=== PATIENT | female | born 1955 | race Caucasian/White ===

== ENCOUNTER → 2016-12-03 | Outpatient (CLI) | payer MEDICARE ==
[~2016-12-03] MED LIST: AMLO2.5T PO; AMLO5TAB2 PO; BUSP10TA95 PO; DOCU-143 PO; FLUT9.9S NS; GABA-488 PO; GING250C PO; INSU100I14 SQ; INSU100I23 SQ; INSU100I29 SQ; INSU100V SQ; INSU100V6 SQ; LEVO100T7 PO; LIRA0.6P3 SQ; LISI10TA2 PO; LORA10TA7 PO; LORA1TAB PO; MICO142C TP; MORP30CA16 PO; ONDA4TAB11 PO; OXYB15TA PO; OXYB5TAB9 PO; OXYC-465 PO; OXYC-471 PO; POLY119P5 PO; SERT50TA9 PO; SEVE800T7 PO; TAMS0.4C2 PO; TETR500C2 PO
--- OUTSIDE RECORDS SUMMARY | 2016-12-03 16:08 | XMS REPORT | Continuity of Care Document ---
Author Author [facility] Organization [facility] Address Unknown Phone Unavailable Care Team Providers Care Dedicated Regional Driver Name Role Phone PCP Unavailable Source Comments Some departments are not documenting in the electronic medical record. If you do not see the information that you expected, contact Release of Information in the Health Information Management department at [phone] for further assistance in locating additional records.[facility] Active Allergies and Adverse Reactions Not on File Current Medications Not on file Active Problems Not on file Social History Tobacco Use Types Packs/Day Years Used Date Never Assessed Plan of Care Date Type Specialty Providers Description 12/28/2016 Appointment Ophthalmology Rajni Howe MD [address] [place] [address] [phone] (Fax) Results from Last 3 Months Not on file
[2016-12-03 16:12] LABS: BILIRUBIN,URINE NEGATIVE (NEGATIVE); KETONES,URINE NEGATIVE (NEGATIVE); LEUKOCYTE ESTERASE ,URINE 3+ (NEGATIVE); NITRITE,URINE POSITIVE (NEGATIVE); PH,URINE 8 (5-9); PROTEIN,URINE 2+ (NEGATIVE); SQUAMOUS EPITHELIAL CELL,UR RARE /HPF; UROBILINOGEN,URINE NORMAL (NORMAL); WBC,URINE TNTC /HPF
== END ==
LOC: HH 16:06
PROVIDERS: ATTEND Internal Medicine
DX: N39.0 Urinary tract infection, site not specified (principal)
CPT/HCPCS: 81000; 87077; 87088; 87186

== ENCOUNTER → 2017-01-08 | Outpatient (CLI) | payer SELFPAY ==
[2017-01-08 15:29] LABS: BILIRUBIN,URINE NEGATIVE (NEGATIVE); KETONES,URINE NEGATIVE (NEGATIVE); LEUKOCYTE ESTERASE ,URINE 3+ (NEGATIVE); NITRITE,URINE POSITIVE (NEGATIVE); PH,URINE 7 (5-9); PROTEIN,URINE 3+ (NEGATIVE); UROBILINOGEN,URINE NORMAL (NORMAL)
[2017-01-08 15:37] LABS: WBC,URINE TNTC /HPF
== END ==
LOC: HH 15:24
PROVIDERS: ATTEND Internal Medicine
DX: N32.89 Other specified disorders of bladder (principal)
CPT/HCPCS: 81000; 87077; 87088; 87186

== ENCOUNTER → 2017-01-14 | Outpatient (CLI) | payer SELFPAY ==
[2017-01-14 15:52] LABS: BASOPHILS % (AUTO) 0 % (0-10); EOSINOPHILS # (AUTO) 0.2 10^3/uL (0.0-0.3); EOSINOPHILS % (AUTO) 4 % (0-10); LYMPHOCYTES # (AUTO) 0.7 X 10^3 (1.0-4.0); LYMPHOCYTES % (AUTO) 13 % (12-44); MEAN CORPUSCULAR HEMOGLOBIN 33 PG (25-34); MEAN CORPUSCULAR HGB CONC 30 G/DL (32-36); MEAN CORPUSCULAR VOLUME 108 FL (80-99); MEAN PLATELET VOLUME 10.7 FL (7.4-10.4); MONOCYTES # (AUTO) 0.4 X 10^3 (0.0-1.0); MONOCYTES % (AUTO) 7 % (0-12); NEUTROPHILS # (AUTO) 4.3 X 10^3 (1.8-7.8); NEUTROPHILS % (AUTO) 77 % (42-75); PLATELET COUNT 150 10^3/uL (130-400); RED BLOOD COUNT 3.81 10^6/uL (4.35-5.85); RED CELL DISTRIBUTION WIDTH 14.5 % (10.0-14.5); WHITE BLOOD COUNT 5.5 10^3/uL (4.3-11.0)
[2017-01-14 16:11] LABS: ALBUMIN 3.6 G/DL (3.2-4.5); BILIRUBIN,TOTAL 0.4 MG/DL (0.1-1.0); CALCIUM 8.7 MG/DL (8.5-10.1); CREATININE SERUM 1.74 MG/DL (0.60-1.30); POTASSIUM 4.7 MMOL/L (3.6-5.0); TOTAL PROTEIN 6.6 G/DL (6.4-8.2)
== END ==
LOC: HH 15:45
PROVIDERS: ATTEND Internal Medicine
DX: D64.9 Anemia, unspecified (principal); N39.0 Urinary tract infection, site not specified
CPT/HCPCS: 80053; 85025

== ENCOUNTER 2017-03-03 22:36 | Observation (INO) | payer MEDICARE, OTHER ==
[~2017-03-03] VITALS: Ht 172.7 cm; Wt 168.7 kg
[~2017-03-03 22:36] MED LIST changes: -LIRA0.6P3 SQ; -OXYB15TA PO
[2017-03-03] MEDS ORDERED: ANTACID SUSP 30 ML UDC (MYLANTA) PO ONE (22:45)
[2017-03-03] MEDS ORDERED: FAMOTIDINE 20MG/2ML IV (PEPCID) IVP ONE (22:45)
[2017-03-03] MEDS ORDERED: LIDOCAINE 2% VISCOUS 15 ML UDC PO ONE (22:45)
[2017-03-03 22:51] LABS: BASOPHILS % (AUTO) 0 % (0-10); EOSINOPHILS # (AUTO) 0.3 10^3/uL (0.0-0.3); EOSINOPHILS % (AUTO) 3 % (0-10); LYMPHOCYTES % (AUTO) 10 % (12-44); MEAN CORPUSCULAR HEMOGLOBIN 32 PG (25-34); MEAN CORPUSCULAR HGB CONC 31 G/DL (32-36); MEAN CORPUSCULAR VOLUME 104 FL (80-99); MEAN PLATELET VOLUME 10.9 FL (7.4-10.4); MONOCYTES # (AUTO) 0.5 X 10^3 (0.0-1.0); MONOCYTES % (AUTO) 6 % (0-12); NEUTROPHILS # (AUTO) 7.9 X 10^3 (1.8-7.8); NEUTROPHILS % (AUTO) 82 % (42-75); PLATELET COUNT 183 10^3/uL (130-400); RED BLOOD COUNT 4.14 10^6/uL (4.35-5.85); RED CELL DISTRIBUTION WIDTH 14.2 % (10.0-14.5); WHITE BLOOD COUNT 9.7 10^3/uL (4.3-11.0)
[2017-03-03 22:59] LABS: PROTHROMBIN TIME PATIENT 12.9 SEC (12.2-14.7)
[2017-03-03 23:08] LABS: BILIRUBIN,URINE NEGATIVE (NEGATIVE); KETONES,URINE NEGATIVE (NEGATIVE); LEUKOCYTE ESTERASE ,URINE 3+ (NEGATIVE); NITRITE,URINE POSITIVE (NEGATIVE); PH,URINE 8 (5-9); PROTEIN,URINE 3+ (NEGATIVE); UROBILINOGEN,URINE NORMAL (NORMAL)
[2017-03-03 23:09] LABS: ALANINE AMINOTRANSFERASE 12 U/L (0-55); ALBUMIN 3.7 G/DL (3.2-4.5); ANION GAP 13 MMOL/L (5-14); ASPARTATE AMINO TRANSFERASE 10 U/L (5-34); BILIRUBIN,TOTAL 0.4 MG/DL (0.1-1.0); BLOOD UREA NITROGEN 29 MG/DL (7-18); BUN/CREATININE RATIO 16; CALCIUM 9.5 MG/DL (8.5-10.1); CARBON DIOXIDE 29 MMOL/L (21-32); CHLORIDE 102 MMOL/L (98-107); CREATININE SERUM 1.77 MG/DL (0.60-1.30); GFR ESTIMATED 29; GLUCOSE 250 MG/DL (70-105); MAGNESIUM 2.2 MG/DL (1.8-2.4); POTASSIUM 4.8 MMOL/L (3.6-5.0); SODIUM 144 MMOL/L (135-145); TOTAL PROTEIN 7.1 G/DL (6.4-8.2)
[2017-03-03 23:16] LABS: MYOGLOBIN SERUM 63.4 NG/ML (10.0-92.0)
[2017-03-03 23:28] LABS: TRIPLE PHOSPHATE CRYSTAL,UR LARGE /LPF
[2017-03-03] MEDS ORDERED: RX-NITROGLYCERIN 0.4 MG TAB BTL 25'S SL ONE (23:45)
[2017-03-03] MEDS ORDERED: cefTRIAXone INJECTION 1,000 MG in NS (IVPB) 50 ML IV ONE (23:45)
[2017-03-04] VITALS (20 sets, daily range): BP systolic 107–150; BP diastolic 68–96
[2017-03-04] MEDS ORDERED: NITROGLYCERIN 2% OINT 1 GM UNIT DOSE PACKET TOP ONE
[2017-03-04] MEDS ORDERED: APIXABAN 5 MG (ELIQUIS) TABLET PO ONE (00:15)
[2017-03-04 00:17] LABS: THYROID STIMULATING HORMONE 1.81 UIU/ML (0.35-4.94)
--- NOTE | 2017-03-04 00:19 | ED Chest Pain ---
General Chief Complaint: Chest Pain Stated Complaint: CP Nursing Triage Note: PT REPORTS CHEST PAIN BEGINNING AT APPROX 2130. MIDDLE CHEST HEAVINESS ET " GOLF BALL" FEELING IN THROAT. CARDONA IN PLACE, CONCERNED ABOUT INCREASED SEDIMENT. PT POINTS TO UPPER ABD WHEN DESCRIBING PAIN. HX OF HIATAL ET ABD HERNIA. Nursing Sepsis Screen: No Definite Risk Source: patient, old records Exam Limitations: no limitations History of Present Illness Time seen by provider: 22:36 Initial Comments Jeniffer presents to the emergency room via EMS with pain across the lower chest/ upper abdomen. She describes it as a heaviness rated as 9 out of 10. She was notably hypertensive. EMS administered aspirin and nitroglycerin. Chest heaviness did not improve much. Patient has a history of cardiac disease with CHF and history of myocardial infarction. 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 She reports having a sensation of lump in the throat and having large belching. She feels bloated. She is bedbound and has an indwelling Cardona catheter with much sediment in her urine. She is morbidly obese reporting that she weighs 367 pounds. She reports her chronic baseline pain as 5/10. Aicha Lyles is her primary care provider. Allergies and Home Medications Allergies Coded Allergies: Sulfa (Sulfonamide Antibiotics) (Verified Allergy, Unknown, 05/24/16) divalproex sodium (Verified Allergy, Unknown, 05/24/16) tetracycline (Unverified Adverse Reaction, Unknown, 03/03/17) Home Medications Amlodipine Besylate 5 Mg Tablet, 2.5 MG PO DAILY, (Reported) TAKES 1/2 OF A (5 MG) TABLET Buspirone HCl 10 Mg Tablet, 10 MG PO BID, (Reported) Docusate Sodium 100 Mg Capsule, 100 MG PO DAILY, (Reported) Fluticasone Propionate 9.9 Ml [place].susp, 2 SPRAY NS BID, (Reported) Gabapentin 300 Mg Capsule, 300 MG PO Q8H, (Reported) Evelyn Root 250 Mg Capsule, 250 MG PO Q12H PRN for STOMACH UPSET, (Reported) Insulin Aspart 300 Units/3 Ml Solution, SQ SLIDING/SCALE, (Reported) 150-200 GIVE 2 UNITS 201-300 GIVE 3 UNITS CALL PHYSICIAN ABOVE 301 Insulin Detemir 100 Unit/1 Ml Insuln.pen, 10 UNIT SQ HS, (Reported) Levothyroxine Sodium 100 Mcg Tablet, 100 MCG PO DAILY, (Reported) Lisinopril 10 Mg Tablet, 10 MG PO DAILY, (Reported) Loratadine 10 Mg Tablet, 10 MG PO DAILY, (Reported) Lorazepam 1 Mg Tablet, 1 MG PO Q8H PRN for ANXIETY, (Reported) Miconazole Nitrate 142 Gm Cream..g., TP TID PRN for RASH, (Reported) Ondansetron 4 Mg Tab.rapdis, 4 MG PO Q4H PRN for NAUSEA/VOMITING, (Reported) Oxybutynin Chloride 5 Mg Tablet, 5 MG PO HS, (Reported) Oxycodone HCl/Acetaminophen 1 Each Tablet, 1 TAB PO Q8H PRN for PAIN, (Reported) Polyethylene Glycol 3350 119 Gm Powder, 17 GM PO DAILY, (Reported) Sertraline HCl 50 Mg Tablet, 50 MG PO DAILY, (Reported) Sevelamer Carbonate 800 Mg Tablet, 800 MG PO Q8H, (Reported) Tamsulosin HCl 0.4 Mg Cap.er.24h, 0.4 MG PO DAILY, (Reported) Review of Systems Constitutional: no symptoms reported EENTM: No Symptoms Reported Respiratory: No Symptoms Reported Gastrointestinal: See HPI Genitourinary: No Symptoms Reported Musculoskeletal: no symptoms reported Skin: no symptoms reported Psychiatric/Neurological: No Symptoms Reported Endocrine: No Symptoms Reported Past [id number] Hx Patient Social History Alcohol Use: Rarely Uses Recreational Drug Use: No Smoking Status: Former Smoker Recent Foreign Travel: No Contact w/Someone Who Travel: No Recent Infectious Disease Expo: No Recent Hopitalizations: No Immunizations Up To Date Tetanus Booster (TDap): More than 5yrs PED Vaccines UTD: No Date of Pneumonia Vaccine: Dec 06, 2014 Date of Influenza Vaccine: Nov 22, 2015 Seasonal Allergies Seasonal Allergies: No Surgeries HX Surgeries: Yes (left hip replacment, bilat shoulder, multiple lithotripsies) Surgeries: Gallbladder, Orthopedic, Pacemaker, Tonsillectomy Respiratory Hx Respiratory Disorders: Yes Respiratory Disorders: COPD Cardiovascular Hx Cardiac Disorders: Yes (heart failure) Cardiac Disorders: Atrial Fibrillation, Heart Attack, Hypertension Neurological Hx Neurological Disorders: Yes Neurological Disorders: Neuropathy Reproductive System Hx Reproductive Disorders: No Sexually Transmitted Disease: No HIV/AIDS: No Female Reproductive Disorders: Denies Genitourinary Hx Genitourinary Disorders: Yes Genitourinary Disorders: Kidney Infection, Bladder Infection, Kidney Stones, Renal Failure, UTI-Chronic Gastrointestinal Hx Gastrointestinal Disorders: No Musculoskeletal Hx Musculoskeletal Disorders: Yes Musculoskeletal Disorders: Degenerate Disk Disease, Arthritis, Fractures Endocrine Hx Endocrine Disorders: Yes (morbid obesity) Endocrine Disorders: Diabetes, Insulin dep, Hypothyroidsim HEENT HX ENT Disorders: Yes HEENT Disorders: Eye Injury Loss of Vision: Right Hearing Impairment: Denies Cancer Hx Cancer: No Psychosocial Hx Psychiatric Problems: Yes Behavioral Health Disorders: Depression Integumentary HX Skin/Integumentary Disorder: Yes (Previous skin breakdown) Skin/Integumentary Disorders: Recent Skin Changes Blood Transfusions Hx Blood Disorders: No Adverse Reaction to a Blood Tr: No Family Medical History Family Medial History: Arthritis G8 SISTER Bleeding disorder G8 BROTHER Cardiovascular disease G8 SISTER Diabetes mellitus 19 MOTHER FH: brain tumor 19 FATHER Hypertension G8 SISTER G8 SISTER G8 SISTER Kidney disease 19 MOTHER Thyroid disease G8 SISTER Physical Exam Vital Signs Vital Sign - Last 12Hours 03/03/17 22:39 Temp 98.7 Pulse 98 Resp 20 B/P (MAP) 133/91 Pulse Ox 96 O2 Delivery Nasal Cannula O2 Flow Rate 3.00 Capillary Refill : Less Than 3 Seconds General Appearance: WD/WN, Mild Distress, Obese HEENT: PERRL/EOMI, Normal ENT Inspection Neck: Normal Inspection Respiratory: Chest Non Tender, Lungs Clear, Normal Breath Sounds, No Accessory Muscle Use, No Respiratory Distress Cardiovascular: Regular Rate, Rhythm, No Edema, No Murmur Gastrointestinal: Normal Bowel Sounds, Soft, Tenderness (across the upper abdomen) Genital/Rectal: Other (heavy sediment within the Cardona catheter tubing) Extremity: Normal Inspection, No Pedal Edema Neurologic/Psychiatric: Alert, Oriented x3, No Motor/Sensory Deficits, Normal Mood/Affect, rn cardiovascular icu II-XII Norm as Tested Skin: Normal Color, Warm/Dry Progress/Results/Core Measures Results/Orders Lab Results Laboratory Tests Test 03/03/17 10:43 03/03/17 22:40 03/03/17 23:00 Range/Units White Blood Count 9.7 4.3-11.0 10^3/uL Red Blood Count 4.14 L 4.35-5.85 10^6/uL Hemoglobin 13.3 11.5-16.0 G/DL Hematocrit 43 35-52 % Mean Corpuscular Volume 104 H 80-99 FL Mean Corpuscular Hemoglobin 32 25-34 PG Mean Corpuscular Hemoglobin Concent 31 L 32-36 G/DL Red Cell Distribution Width 14.2 10.0-14.5 % Platelet Count 183 130-400 10^3/uL Mean Platelet Volume 10.9 H 7.4-10.4 FL Neutrophils (%) (Auto) 82 H 42-75 % Lymphocytes (%) (Auto) 10 L 12-44 % Monocytes (%) (Auto) 6 0-12 % Eosinophils (%) (Auto) 3 0-10 % Basophils (%) (Auto) 0 0-10 % Neutrophils # (Auto) 7.9 H 1.8-7.8 X 10^3 Lymphocytes # (Auto) 1.0 1.0-4.0 X 10^3 Monocytes # (Auto) 0.5 0.0-1.0 X 10^3 Eosinophils # (Auto) 0.3 0.0-0.3 10^3/uL Basophils # (Auto) 0.0 0.0-0.1 10^3/uL Prothrombin Time 12.9 12.2-14.7 SEC INR Comment 1.0 0.8-1.4 Activated Partial Thromboplast Time 28 24-35 SEC Sodium Level 144 135-145 MMOL/L Potassium Level 4.8 3.6-5.0 MMOL/L Chloride Level 102 98-107 MMOL/L Carbon Dioxide Level 29 21-32 MMOL/L Anion Gap 13 5-14 MMOL/L Blood Urea Nitrogen 29 H 7-18 MG/DL Creatinine 1.77 H 0.60-1.30 MG/DL Estimat Glomerular Filtration Rate 29 BUN/Creatinine Ratio 16 Glucose Level 250 H 70-105 MG/DL Calcium Level 9.5 8.5-10.1 MG/DL Magnesium Level 2.2 1.8-2.4 MG/DL Total Bilirubin 0.4 0.1-1.0 MG/DL Aspartate Amino Transf (AST/SGOT) 10 5-34 U/L Alanine Aminotransferase (ALT/SGPT) 12 0-55 U/L Alkaline Phosphatase 102 40-136 U/L Myoglobin 63.4 10.0-92.0 NG/ML Troponin I < 0.30 <0.30 NG/ML Total Protein 7.1 6.4-8.2 G/DL Albumin 3.7 3.2-4.5 G/DL Lipase 15 8-78 U/L Thyroid Stimulating Hormone (TSH) 1.81 0.35-4.94 UIU/ML Free Thyroxine 1.14 0.70-1.48 NG/DL Urine Color YELLOW Urine Clarity MUCOUS Urine pH 8 5-9 Urine Specific [place] 1.010 L 1.016-1.022 Urine Protein 3+ H NEGATIVE Urine Glucose (UA) NEGATIVE NEGATIVE Urine Ketones NEGATIVE NEGATIVE Urine Nitrite POSITIVE H NEGATIVE Urine Bilirubin NEGATIVE NEGATIVE Urine Urobilinogen NORMAL NORMAL MG/DL Urine Leukocyte Esterase 3+ H NEGATIVE Urine RBC (Auto) 5+ H NEGATIVE Urine RBC 5-10 H /HPF Urine WBC 10-25 H /HPF Urine Crystals PRESENT H /LPF Urine Triple Phosphate Crystals LARGE H /LPF Urine Bacteria LARGE H /HPF Urine Casts NONE /LPF Urine Mucus NEGATIVE /LPF Urine Culture Indicated YES My Orders Orders - RYAN ABRAHAM MD Cbc With Automated Diff (03/03/17 22:44) Magnesium (03/03/17 22:44) Chest 1 View, Ap/Pa Only (03/03/17 22:44) Ekg Tracing (03/03/17 22:44) Cardiac Profile 1 (03/03/17 22:44) Comprehensive Metabolic Panel (03/03/17 22:44) Myoglobin Serum (03/03/17 22:44) Protime With Inr (03/03/17 22:44) Partial Thromboplastin Time (03/03/17 22:44) O2 (03/03/17 22:44) Monitor-Rhythm Ecg Trace Only (03/03/17 22:44) Lipid Panel (03/04/17 06:00) Saline Lock/Iv-Start (03/03/17 22:44) Famotidine Injection (Pepcid Injection) (03/03/17 22:45) Lidocaine 2% Viscous 15 Ml (Xylocaine Vi (03/03/17 22:45) Antacid Suspension (Mylanta Suspension (03/03/17 22:45) Lipase (03/03/17 22:47) Ua Culture If Indicated (03/03/17 22:47) Urine Culture (03/03/17 23:00) Rx-Nitroglycerin Sl Tabs (Rx-Nitrostat S (03/03/17 23:45) Thyroid Stimulating Hormone (03/03/17 23:43) Free T4 (Free Thyroxine) (03/03/17 23:43) Ceftriaxone Injection (Rocephin Injectio (03/03/17 23:45) Nitroglycerin Ointment (Nitrobid Ointme (03/04/17 00:00) Apixaban Tablet (Eliquis Tablet) (03/04/17 00:15) Medications Given in ED Current Medications Medications Dose Ordered Sig/Stefanie Route Start Time Stop Time Status Last Admin Dose Admin Al Hydrox/Mg Hydrox/Simethicone 30 ml ONCE ONCE PO 03/03/17 22:45 03/03/17 22:46 DC 03/03/17 22:55 30 ML Ceftriaxone Sodium 1000 mg/ Sodium Chloride 50 ml @ 100 mls/hr ONCE ONCE IV 03/03/17 23:45 03/04/17 00:14 DC 03/04/17 00:31 100 MLS/HR Famotidine 20 mg ONCE ONCE IVP 03/03/17 22:45 03/03/17 22:46 DC 03/03/17 22:57 20 MG Lidocaine HCl 15 ml ONCE ONCE PO 03/03/17 22:45 03/03/17 22:46 DC 03/03/17 22:56 15 ML Nitroglycerin 0.4 mg UD ONCE SL 03/03/17 23:45 03/03/17 23:46 DC 03/03/17 23:43 0.4 MG Nitroglycerin 1 inch ONCE ONCE TOP 03/04/17 00:00 03/04/17 00:01 DC 03/04/17 00:31 1 INCH Vital Signs/I&O Vital Sign - Last 12Hours 03/03/17 03/03/17 22:39 22:40 Temp 98.7 Pulse 98 Resp 20 B/P (MAP) 133/91 Pulse Ox 96 O2 Delivery Nasal Cannula Nasal Cannula O2 Flow Rate 3.00 3.0 Blood Pressure Mean: 105 Progress Note : Progress Note The first nitroglycerin administered by EMS did not improve her pain much. GI cocktail also did not improve her pain much. The second nitroglycerin did improve her pain near to baseline at around midnight. Patient had significant hypertension that rebounded after nitroglycerin administration. Nitro paste was applied. Rocephin was administered for treatment of urinary tract infection. Eliquis was ordered after discussion with Dr. Villarreal as patient was not on any anticoagulation for her A. fib. ECG Initial ECG Impression Date: Mar 03, 2017 Initial ECG Impression Time: 22:43 Initial ECG Rate: 104 Initial ECG Rhythm: A Fib/Flutter Comment Atrial fibrillation with no ST elevation or depression. No prior available for comparison. Diagnostic Imaging Diagonstic Imaging: Xray Plain Films/CT/US/NM/MRI: chest Comments Chest x-ray viewed by body habitus. Viewed by me. Report not yet available. Cardiomegaly with no other acute abnormalities appreciated when compared with prior. Departure Communication Time/Spoke to Admitting Phy: 00:[address] Mckeon Time/Spoke to Consulting Physi: 23:55 Communication/Consulting Dr. Villarreal Impression Impression: Primary Impression: Chest pain Qualified Codes: R07.9 - Chest pain, unspecified Additional Impressions: Upper abdominal pain Hypertensive urgency Urinary tract infection Qualified Codes: N39.0 - Urinary tract infection, site not specified Morbid obesity Qualified Codes: E66.01 - Morbid (severe) obesity due to excess calories Atrial fibrillation, controlled Disposition: 09 ADMITTED INPATIENT Condition: Improved Decision to Admit Reason: Admit from ER (General) Decision to Admit/Date: Mar 04, 2017 Time/Decision to Admit Time: 22:45 Departure-Patient Inst. Referrals: LEONARDO CALLOWAY MD (PCP) Primary Care Physician RYAN ABRAHAM MD Mar 04, 2017 00:19
[2017-03-04] MEDS ORDERED: oxyCODONE/APAP 10/325MG (PERCOCET 10) TABLET PO ONE (01:45)
[2017-03-04 05:54] LABS: CHOLESTEROL 116 MG/DL (< 200); DIRECT LDL 53 MG/DL (1-129); TRIGLYCERIDES 98 MG/DL (<150); VLDL CHOLESTEROL 20 MG/DL (5-40)
[2017-03-04] MEDS: inSUlin (REGULAR) HUMAN 1 UNIT/0.01 ML (CHARGE PER UNIT) SC SCH ×3 (06:00→14:30)
--- NOTE | 2017-03-04 06:45 | Diagnostic Imaging Report ---
EXAM: CHEST 1 VIEW, AP/PA ONLY. INDICATION: Chest pain. COMPARISON: Chest radiograph 09/19/2016. FINDINGS: Marked cardiomegaly has progressed since the prior exam. Normal pulmonary vascularity. No focal pulmonary opacity, pleural effusion, or pneumothorax. Cardiac pacer. Interval removal of a right IJ CVC. IMPRESSION: Marked cardiomegaly has progressed since the prior exam. Dictated by: Dictated on workstation # [id number]
[2017-03-04] MEDS ORDERED: PANTOPRAZOLE 40 MG (PROTONIX) TAB PO SCH (07:00)
[2017-03-04] MEDS ORDERED: ASPIRIN E.C. 325 MG (ECOTRIN) TABLET PO SCH (09:00)
[2017-03-04] MEDS ORDERED: morphine ER 30 MG (MS CONTIN) TAB PO SCH (09:00)
[2017-03-04] MEDS ORDERED: APIXABAN 5 MG (ELIQUIS) TABLET PO SCH (09:00)
[2017-03-04] MEDS ORDERED: amLODIPine 2.5MG (NORVASC) TAB PO SCH (09:00)
[2017-03-04] MEDS: NITROGLYCERIN 2% OINT 1 GM UNIT DOSE PACKET TOP SCH ×2 (09:32→16:00)
[2017-03-04] MEDS ORDERED: AMLO2.5T PO ×2 (10:57→18:28)
[2017-03-04] MEDS ORDERED: LIRA0.6P3 SQ ×2 (10:57→18:28)
[2017-03-04] MEDS ORDERED: OXYB15TA PO ×2 (10:57→18:28)
[2017-03-04] MEDS ORDERED: ONDANSETRON 8 MG (ZOFRAN) ORAL DISSOLVE TAB PO PRN (11:00)
[2017-03-04] MEDS: morphine INJ 10 MG/ML 1ML (SYR OR VIAL) IV PRN ×3 (11:02→19:22)
--- NOTE | 2017-03-04 11:27 | History & Physicial (CHS) ---
HPI History of Present Illness: Presented to ER about an hour after the onset of aching under breasts and into chest that did not let up in spite of sitting up, and belching some. She denies associated nausea, dizziness or radiating pain, but did feel hot. She notes she had this occur once before when she had a "mild heart attack". She had a coronary artery catheterization and stress test about 6-7 years ago which she reports were okay. She has a pacemaker, which she states was put in after an episode of UTI and sepsis where she had low heart rate in the hospital. She moved from [place] to this area a few months ago and has not yet established with a new [employer]. She is supplemental oxygen dependent 24 hours per day and is bedbound secondary to combination of morbid obesity and fractured knee that reportedly cannot be repaired due to prior femur fracture related to left hip replacement many years ago. She has an indwelling urinary catheter that is changed every 2 weeks because she has marked skin erythema on her buttocks that easily breaks down if exposed to moisture, she denies any open wounds at this time. She does have a history of recurrent UTI. She has had sinus drainage and admits to coughing after eating and drinking for the last month and a half with occasional "frog voice" afterward. Source: patient Date seen by provider: Mar 04, 2017 Time seen by provider: 09:45 Attending Physician Shima Mckeon MD PCP Aicha Lyles APRN Consult Date of Admission Mar 04, 2017 at 00:13 Home Medications Home Medications Reviewed patient Home Medication Reconciliation Form Allergies Coded Allergies: Sulfa (Sulfonamide Antibiotics) (Verified Allergy, Unknown, 05/24/16) divalproex sodium (Verified Allergy, Unknown, 05/24/16) tetracycline (Unverified Adverse Reaction, Unknown, 03/03/17) KNJ-Bawmpw-Nkdgxs Hx Patient Social History Alcohol Use: Rarely Uses Recreational Drug Use: No Smoking Status: Former Smoker (quit at age 34) Recent Foreign Travel: No Contact w/other who traveled: No Recent Hopitalizations: No Recent Infectious Disease Expo: No Physical Abuse Screen: No Sexual Abuse: No Immunizations Up To Date Tetanus Booster (TDap): More than 5yrs Date of Pneumonia Vaccine: Dec 06, 2014 Date of Influenza Vaccine: Nov 22, 2015 Past Medical History PMHx: 1. 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 Pacemaker for paroxysmal atrial fibrillation or sick sinus syndrome- unclear history from patient 3. Shattered left femur causing bedbound status 4. [place] 5. Chronic constipation 6. Hypothyroidism 7. HTN 8. Anxiety/depression 9. GERD/ulcers 10. T2DM 11. Prior AMI 12. CKD - baseline creatinine around 2.25 13. PVD 14. Blindness in left eye PSurgHx: Left hip replacement Family Medical History Significant Family History: Heart Disease, CAD Over 55 Years Old, Hypertension , Renal Disease Review of Systems (CHC) Constitutional: No fever EENTM: nose congestion, No throat pain Respiratory: see HPI Cardiovascular: see HPI Gastrointestinal: No abdominal pain, No diarrhea, No nausea, No vomiting Genitourinary: No dysuria Musculoskeletal: joint pain Skin: see HPI Psychiatric/Neurological: No Symptoms Reported Reviewed Test Results Reviewed Test Results Lab Laboratory Tests Test 03/03/17 10:43 03/03/17 22:40 03/03/17 23:00 03/04/17 04:45 Range/Units White Blood Count 9.7 4.3-11.0 10^3/uL Red Blood Count 4.14 L 4.35-5.85 10^6/uL Hemoglobin 13.3 11.5-16.0 G/DL Hematocrit 43 35-52 % Mean Corpuscular Volume 104 H 80-99 FL Mean Corpuscular Hemoglobin 32 25-34 PG Mean Corpuscular Hemoglobin Concent 31 L 32-36 G/DL Red Cell Distribution Width 14.2 10.0-14.5 % Platelet Count 183 130-400 10^3/uL Mean Platelet Volume 10.9 H 7.4-10.4 FL Neutrophils (%) (Auto) 82 H 42-75 % Lymphocytes (%) (Auto) 10 L 12-44 % Monocytes (%) (Auto) 6 0-12 % Eosinophils (%) (Auto) 3 0-10 % Basophils (%) (Auto) 0 0-10 % Neutrophils # (Auto) 7.9 H 1.8-7.8 X 10^3 Lymphocytes # (Auto) 1.0 1.0-4.0 X 10^3 Monocytes # (Auto) 0.5 0.0-1.0 X 10^3 Eosinophils # (Auto) 0.3 0.0-0.3 10^3/uL Basophils # (Auto) 0.0 0.0-0.1 10^3/uL Prothrombin Time 12.9 12.2-14.7 SEC INR Comment 1.0 0.8-1.4 Activated Partial Thromboplast Time 28 24-35 SEC Sodium Level 144 135-145 MMOL/L Potassium Level 4.8 3.6-5.0 MMOL/L Chloride Level 102 98-107 MMOL/L Carbon Dioxide Level 29 21-32 MMOL/L Anion Gap 13 5-14 MMOL/L Blood Urea Nitrogen 29 H 7-18 MG/DL Creatinine 1.77 H 0.60-1.30 MG/DL Estimat Glomerular Filtration Rate 29 BUN/Creatinine Ratio 16 Glucose Level 250 H 70-105 MG/DL Calcium Level 9.5 8.5-10.1 MG/DL Magnesium Level 2.2 1.8-2.4 MG/DL Total Bilirubin 0.4 0.1-1.0 MG/DL Aspartate Amino Transf (AST/SGOT) 10 5-34 U/L Alanine Aminotransferase (ALT/SGPT) 12 0-55 U/L Alkaline Phosphatase 102 40-136 U/L Myoglobin 63.4 10.0-92.0 NG/ML Troponin I < 0.30 < 0.30 <0.30 NG/ML Total Protein 7.1 6.4-8.2 G/DL Albumin 3.7 3.2-4.5 G/DL Lipase 15 8-78 U/L Thyroid Stimulating Hormone (TSH) 1.81 0.35-4.94 UIU/ML Free Thyroxine 1.14 0.70-1.48 NG/DL Urine Color YELLOW Urine Clarity MUCOUS Urine pH 8 5-9 Urine Specific [place] 1.010 L 1.016-1.022 Urine Protein 3+ H NEGATIVE Urine Glucose (UA) NEGATIVE NEGATIVE Urine Ketones NEGATIVE NEGATIVE Urine Nitrite POSITIVE H NEGATIVE Urine Bilirubin NEGATIVE NEGATIVE Urine Urobilinogen NORMAL NORMAL MG/DL Urine Leukocyte Esterase 3+ H NEGATIVE Urine RBC (Auto) 5+ H NEGATIVE Urine RBC 5-10 H /HPF Urine WBC 10-25 H /HPF Urine Crystals PRESENT H /LPF Urine Triple Phosphate Crystals LARGE H /LPF Urine Bacteria LARGE H /HPF Urine Casts NONE /LPF Urine Mucus NEGATIVE /LPF Urine Culture Indicated YES Triglycerides Level 98 <150 MG/DL Cholesterol Level 116 < 200 MG/DL LDL Cholesterol Direct 53 1-129 MG/DL VLDL Cholesterol 20 5-40 MG/DL HDL Cholesterol 38 L 40-60 MG/DL Test 03/04/17 09:48 Range/Units Glucometer 179 H 70-110 MG/DL Radiology CXR 03/03: Cardiomegaly Physical Exam-([facility]C) Physical Exam Vital Signs VS - Last 72 Hours, by Label 03/03/17 03/03/17 03/04/17 03/04/17 22:39 22:40 01:56 02:06 Temp 98.7 96.6 Pulse 98 87 75 Resp 20 12 10 B/P (MAP) 133/91 131/91 Pulse Ox 96 97 96 O2 Delivery Nasal Cannula Nasal Cannula Nasal Cannula O2 Flow Rate 3.00 3.0 3.00 3.00 03/04/17 03/04/17 03/04/17 03/04/17 02:15 02:24 02:30 02:45 Pulse 85 71 80 83 Resp 8 8 24 B/P (MAP) 114/82 120/78 Pulse Ox 97 91 94 O2 Delivery Nasal Cannula Nasal Cannula Nasal Cannula O2 Flow Rate 3.00 3.00 3.00 03/04/17 03/04/17 03/04/17 03/04/17 03:00 03:00 03:30 04:00 Pulse 80 77 75 Resp 23 17 11 B/P (MAP) 107/86 143/89 137/86 Pulse Ox 91 95 95 O2 Delivery Nasal Cannula Nasal Cannula Nasal Cannula O2 Flow Rate 3.00 3.00 3.00 3.00 03/04/17 03/04/17 03/04/17 05:00 06:00 07:00 Pulse 84 76 72 Resp 11 23 20 B/P (MAP) 127/83 121/74 110/96 Pulse Ox 92 96 96 O2 Delivery Nasal Cannula Nasal Cannula Nasal Cannula O2 Flow Rate 3.00 3.00 3.00 Capillary Refill : Less Than 3 SecondsLess Than 3 Seconds General Appearance: obese Respiratory: lungs clear, normal breath sounds Cardiovascular: regular rate, rhythm, no edema, no murmur Gastrointestinal: normal bowel sounds, non tender, soft Neurologic/Psychiatric: alert, normal mood/affect Skin: warm/dry Assessment/Plan Assessment/Plan Admission Dx 1. Chest pain 2. UTI 3. HTN 4. HLD 5. Hypothyroidism 6. DMII 7. Bedbound with chronic fracture and chronic pain 8. Supplemental oxygen dependent 9. CKD 10. Atrial fibrillation Plan 1. Chest pain- troponins negative -Cardiology consulted, plan for stress test this pm 2. UTI- rocephin, awaiting culture 3. HTN- resume home amlodipine 4. HLD- LDL 53 today, no statin on home medication list 5. Hypothyroidism- resume home synthroid, TSH normal 6. DMII- resume home liraglutide and insulin when dosing confirmed -Diabetic diet, sliding scale insulin 7. Bedbound with chronic fracture and chronic pain -Careful skin care and position changes to prevent ulcer development -Resume home pain medications 8. Supplemental oxygen dependent -Continuous oxygen as needed 9. CKD- appears to be near baseline, resume home sevelamer -Monitor electrolytes 10. Atrial fibrillation- apparently paroxysmal per history but was not on anticoagulation -Apixaban started per Cardiology recommendations DVT ppx- SCDs, enoxaparin per renal function Diagnosis/Problems: Clinical Quality Measures AMI/AHF: ASA po Prior to arrival: Yes (324mg per ems) DVT/VTE Risk/Contraindication: Risk Factor Score Per Nursin RFS Level Per Nursing on Admit: 4+=Very High Copy Copies To 1: ALIREZA Chase BETHANY N MD Mar 04, 2017 11:27
[2017-03-04] MEDS ORDERED: oxyCODONE/APAP 10/325MG (PERCOCET 10) TABLET PO PRN ×2 (11:30→17:00)
[2017-03-04] MEDS ORDERED: GABAPENTIN 300 MG (NEURONTIN) CAP PO SCH (13:00)
[2017-03-04] MEDS ORDERED: OXYBUTYNIN (DITROPAN) 5 MG TAB PO SCH (13:00)
[2017-03-04] MEDS ORDERED: SEVELAMER CARBONATE 800 MG PO SCH (13:00)
[2017-03-04] MEDS ORDERED: CATHETER FLUSH 10 ML SYR IV PRN (13:30)
--- NOTE | 2017-03-04 13:36 | ST Dysphagia Evaluation ---
Speech Evaluation-General Medical Diagnosis UTI, Chest Pain Onset Date: Mar 04, 2017 Therapy Diagnosis Therapy Diagnosis: Oropharyngeal Swallow WFL Precautions Precautions/Isolations: Contact Isolation, Fall Prevention, Standard Precautions, Pressure Ulcer Referral Referring Physician: Dr. Shima Mckeon Reason for Referral: Evaluation/Treatment Bedside Swallowing Evaluation Medical History Pertinent Medical History: Atrial Fib, Arthritis, COPD, DM, HTN, Hypothroidism , Neuropathy Congestive Heart Failure Reviewed History: Yes Speech PLF/Current-Dysphagia Prior Level of Function The patient denied swallowing difficulties with food or liquid consistencies. Per patient, she experiences "a lump" in her throat which she localized to the laryngeal region. The patient stated pills will often "stick" at this location causing her to cough and choke. The patient denied recent chest infections included pneumonia. Per patient, the globus sensation has been present for the past two months. Subjective The patient was recently admitted to [facility] with a diagnosis of UTI. The patient greeted the clinician appropriately and was agreeable to the dysphagia evaluation on this date. CXR: 03/04/17: Marked cardiomegaly has progressed since the prior exam. Cognitive Status Patient Orientation: Person, Place, Time, Situation Oral Motor Skills Dentition: Natural Current Food Consistancy: Regular, Thin Liquids Ability to Follow Directions: Good Oral Expression Ability: No Impairment Voice Voice Phonatory-Based Quality: Glottal Nuno Voice Pitch: Mildly Low Voice Loudness: Normal Face Facial Symmetry: Symmetrical Oral-Facial Assessment Oral-Facial Dentition: Normal Labial Seal Description: Normal Smile: Normal Puff Cheeks: Normal Lingual Protrusion: Normal Lingual ROM: Normal Lingual Strength: Normal Pharynx Velopharyngeal Move.: Normal Volitional Dry Swallow: Yes Voluntary Cough: Yes Dysphagia Evaluation Consistencies Presented: Regular, Thin Liquid, Pureed - No oral impairments were noted throughout the evaluation. - No pharyngeal phase impairments were noted throughout the evaluation. - No signs/symptoms of aspiration were demonstrated throughout the evaluation with any consistency tested. The patient's vocal quality remained clear throughout the assessment. Dietary Recommendations: Regular Liquid Recommendations: Thin Swallowing Precautions: Small Bites and Sips, Sitting 90 Degrees 30 Post Intake 1. Crush medication and place in puree consistency for administration. Dysphagia Evaluation Summary The patient demonstrated an oropharyngeal swallow function grossly within functional limits. Speech-Plan Treatment Plan Speech Therapy Treatment Plan: Discontinue ST Evaluation, only. Rehab Potential: Guarded Safety Risks/Education Teaching Recipient: Patient Teaching Methods: Discussion Response to Teaching: Verbalize Understanding Education Topics Provided: Plan of Care, Results, Recommendations Time Speech Therapy Time In: 11:10 Speech Therapy Time Out: 11:30 Total Billed Time: 20 Billed Treatment Time 1KATELYNN ELIZABETH ST Mar 04, 2017 13:36
[2017-03-04] MEDS ORDERED: REGADENOSON 0.4 MG/5 ML SYR (LEXISCAN) IV ONE ×2 (13:51→14:30)
--- NOTE | 2017-03-04 15:47 | Consultation-Cardiology ---
HPI-Cardiology Cardiology Consultation: Date of Consultation 03/04/17 Date of Admission Attending Physician Shima Mckeon MD Admitting Physician Saroj Saez MD Consulting Physician Maria Luisa VILLARREAL MD HPI: Chief Complaint: Chest pain This is a 61-year-old lady who presents with UTI sepsis. She presents with chest pain across the chest. No associated symptoms. No exacerbating or relieving factors. She has history of diastolic congestive heart failure, morbid obesity. Review of Systems-Cardiology Review of Systems Constitutional: No As described under HPI, No no symptoms reported, No chills, No fever, No lightheadedness, No malaise, No tiredness, No weight loss, No weight gain, No other Eyes: No As described under HPI, No no symptoms reported, No blindness, No blurred vision, No contact lenses, No drainage, No decreased acuity, No foreign body sensation, No glasses, No inflammation, No pain, No photophobia, No previous injury, No shadows, No tunnel vision, No other, No vision change Ears/Nose/Throat: No As described under HPI, No no symptoms reported, No chronic hearing loss, No epistaxis, No ear discharge, No ear pain, No loose teeth, No mouth pain, No mouth swelling, No nasal drainage, No nose pain, No recent hearing loss, No throat pain, No throat swelling, No ulcerations, No other Respiratory: No no symptoms reported, No As described under HPI, No cough, No orthopnea, No shortness of breath, No SOB with excertion, No SOB at rest, No stridor, No wheezing, No other Cardiovascular: chest pain Gastrointestinal: No no symptoms reported, No As described under HPI, No abdomen distended, No abdominal pain, No blood streaked bowels, No constipation , No diarrhea, No difficulty swallowing, No nausea, No poor appetite, No poor fluid intake, No rectal bleeding, No vomiting, No other, No nausea/vomiting/ diarrhea, No stool coloration changes Genitourinary: As described under HPI Musculoskeletal: No no symptoms reported, No As describe under HPI, No back pain, No gout, No joint pain, No joint swelling, No muscle pain, No muscle stiffness, No neck pain, No other Skin: No no symptoms reported, No As described under HPI, No change in color, No change in hair/nails, No dryness, No lesions, No lumps, No rash, No other, No skin related problems, No ulcerations, No rash on exposed areas, No ulcerations on exposed areas Psychiatric/Neurological: No As described under HPI, No anxiety, No depression , No emotional problems, No focal weakness, No headache, No no symptoms reported , No numbness, No other, No pre-existing deficit, No seizure, No syncope, No tingling, No tremors, No weakness Hematologic: No no symptoms reported, No As described under HPI, No anemia, No blood clots, No easy bleeding, No easy bruising, No swollen glands, No other, No bleeding abnormalities [id number]-[id number] Hx Patient Social History Alcohol Use: Rarely Uses Recreational Drug Use: No Smoking Status: Former Smoker (quit at age 34) Recent Foreign Travel: No Recent Infectious Disease Expo: No Physical Abuse Screen: No Sexual Abuse: No Immunizations Up To Date Tetanus Booster (TDap): More than 5yrs Date of Pneumonia Vaccine: Dec 06, 2014 Date of Influenza Vaccine: Nov 22, 2015 Past Medical History PMH As described under Assessment. Family Medical History Family History: Arthritis G8 SISTER Bleeding disorder G8 BROTHER Cardiovascular disease G8 SISTER Diabetes mellitus 19 MOTHER FH: brain tumor 19 FATHER Hypertension G8 SISTER G8 SISTER G8 SISTER Kidney disease 19 MOTHER Thyroid disease G8 SISTER Allergies and Home Medications Allergies Coded Allergies: Sulfa (Sulfonamide Antibiotics) (Verified Allergy, Unknown, 05/24/16) divalproex sodium (Verified Allergy, Unknown, 05/24/16) tetracycline (Unverified Adverse Reaction, Unknown, 03/03/17) Home Medications Amlodipine Besylate 2.5 Mg Tablet, 2.5 MG PO DAILY, (Reported) LAST FILLED 11/13/16 #90 Buspirone HCl 10 Mg Tablet, 10 MG PO BID, (Reported) LAST FILLED 11/05/16 #180 Docusate Sodium 100 Mg Capsule, 100 MG PO DAILY, (Reported) Fluticasone Propionate 9.9 Ml [place].susp, 2 SPRAY NS BID PRN for ALLERGIES, ( Reported) Gabapentin 300 Mg Capsule, 300 MG PO TID, (Reported) LAST FILLED 10/26/16 #90 Evelyn Root 250 Mg Capsule, 250 MG PO Q12H PRN for STOMACH UPSET, (Reported) Insulin Aspart 300 Units/3 Ml Solution, SQ SLIDING/SCALE, (Reported) LAST FILLED 08/12/16 Insulin Detemir 100 Unit/1 Ml Insuln.pen, 10 UNIT SQ HS, (Reported) LAST FILLED 08/12/16 Levothyroxine Sodium 100 Mcg Tablet, 100 MCG PO DAILY, (Reported) LAST FILLED 11/05/16 #90 Liraglutide 0.6 Mg/0.1 Ml Pen.injctr, 1.8 MG SQ DAILY, (Reported) LAST FILLED 11/05/16 #9ML Loratadine 10 Mg Tablet, 10 MG PO DAILY, (Reported) LAST FILLED 11/05/16 #90 Miconazole Nitrate 142 Gm Cream..g., TP DAILY PRN for RASH, (Reported) Oxybutynin Chloride 15 Mg Tab.er.24, 15 MG PO DAILY, (Reported) LAST FILLED 11/05/16 #30 Oxycodone HCl/Acetaminophen 1 Each Tablet, 1 TAB PO QID PRN for PAIN, (Reported) Polyethylene Glycol 3350 119 Gm Powder, 17 GM PO DAILY PRN for CONSTIPATION-2ND LINE, (Reported) Sertraline HCl 50 Mg Tablet, 50 MG PO DAILY, (Reported) LAST FILLED 11/06/16 #90 Sevelamer Carbonate 800 Mg Tablet, 800 MG PO TID, (Reported) LAST FILLED 11/05/16 #270 Tamsulosin HCl 0.4 Mg Cap.er.24h, 0.4 MG PO DAILY, (Reported) LAST FILLED 11/05/16 #90 Physical Exam-Cardiology Physical Exam Vital Signs/I&O Vital Sign - Last 12Hours 03/04/17 03/04/17 03/04/17 03/04/17 04:00 05:00 06:00 07:00 Pulse 75 84 76 72 Resp 11 11 23 20 B/P (MAP) 137/86 127/83 121/74 110/96 Pulse Ox 95 92 96 96 O2 Delivery Nasal Cannula Nasal Cannula Nasal Cannula Nasal Cannula O2 Flow Rate 3.00 3.00 3.00 3.00 03/04/17 03/04/17 03/04/17 03/04/17 07:00 08:00 08:50 08:50 Temp 98.3 Pulse 81 74 Resp 16 B/P (MAP) 129/68 Pulse Ox 90 96 O2 Delivery Nasal Cannula Nasal Cannula O2 Flow Rate 3.00 3.00 03/04/17 03/04/17 03/04/1703/04/17 09:00 10:00 11:00 12:00 Pulse 77 72 78 78 Resp 11 17 21 26 B/P (MAP) 150/85 129/73 133/89 123/78 Pulse Ox 94 94 90 95 O2 Delivery Nasal Cannula Nasal Cannula Nasal Cannula Nasal Cannula O2 Flow Rate 3.00 3.00 3.00 3.00 03/04/17 03/04/17 03/04/17 03/04/17 12:00 12:31 13:00 13:58 Temp 97.6 Pulse 80 79 Resp 25 B/P (MAP) 132/78 130/75 Pulse Ox 95 93 99 O2 Delivery Nasal Cannula Nasal Cannula O2 Flow Rate 3.00 3.00 3.00 03/04/17 03/04/17 14:09 14:13 Pulse 109 90 B/P (MAP) 130/85 140/78 Pulse Ox 97 Capillary Refill : Less Than 3 SecondsLess Than 3 Seconds Constitutional: No appears stated age, No AAO x 3, No apparent distress, No PERRL, No well-developed, No well-nourished, other (Morbidly obese.) HEENT: No PERRL, No normal ENT inspection, No TMs normal, No pharynx normal, No scleral icterus (R), No scleral icterus (L), No pale conjunctivae (R), No pale conjunctivae (L), No photophobia, No TM abnormal (R), No TM abnormal (L), No pharyngeal erythema, No tonsillar exudate, No other, No discharge, No EOMI, No hearing is well preserved, No hard of hearing, No oral hygience is good, No ulceration, No xanthelasmas are seen Neck: No non-tender, No full range of motion, No supple, No normal inspection, No carotid bruit, No limited range of motion, No lymphadenopathy (R), No lymphadenopathy (L), No tender lateral, No tender midline, No thyromegaly, No other, No carotid pulses are 2 + bilaterally, No with good upstrokes Respiratory: No accessory muscle use, No respiratory distress, No chest tender , No chest expansion is symmetric, No chest is bilaterally symmetric, No lungs clear to percussion, No lungs clear to auscultation, No crackles, No rhonchi, No rales, No stridor, No wheezing, No pleural rub, other (Decreased air entry bilaterally.) Cardiovascular: No regular rate-rhythm, No irregularly irregular, No extra beats, No parasternal heave is noted, No JVD, No edema, No bradycardia, No tachycardia, No point of maximal impulse, No cardiac thrills are palpable, No S1 and S2, No gallop/S3, No gallop/S4, No diastolic murmur, No systolic murmur, No friction rub, No click, No other Gastrointestinal: No tender, No soft, No round, No distended, No pulsatile mass , No organomegaly, No guarding, No rebound, No tenderness, No hernia, No mass, No audible bowel sounds, No abnormal bowel sounds, No abdominal bruits, No spleenomegaly, No other Rectal: deferred Extremities: No normal range of motion, No non-tender, No normal inspection, No pedal edema, No calf tenderness, No normal capillary refill, No pelvis stable , No calf tenderness, No inflammation, No pedal edema, No slow capillary refill , No swelling, No other, No abrasion, No clubbing, No cyanosis, No ecchymosis, No laceration, No no lower extremity edema bilateral, No significant edema, No tenderness, No wound Neurologic/Psychiatric: No drum barker operator II-XII nml as tested, No no motor/sensory deficits, No alert, No normal mood/affect, No oriented x 3, No abnormal cerebellar tests, No abnormal drum barker operator II-XII, No abnormal gait, No aphasia, No EOM palsy, No facial droop, No motor weakness, No sensory deficit, No depressed affect, No disoriented x 3, No other, No grossly intact, No power is 5/5 both on sides Skin: No normal color, No warm/dry, No cyanosis, No cool, No diaphoresis, No damp, No ecchymosis, No jaundice, No mottled, No pallor, No rash, No tattoos/ piercings, No ulcerations, No rash on exposed areas, No ulcerations on exposed areas, No other Data Review Labs Laboratory Tests 03/03/17 22:40: Thyroid Stimulating Hormone (TSH) 1.81, Free Thyroxine 1.14 03/03/17 23:00: Urine Color YELLOW, Urine Clarity MUCOUS, Urine pH 8, Urine Specific [place] 1.010L, Urine Protein 3+H, Urine Glucose (UA) NEGATIVE, Urine Ketones NEGATIVE, Urine Nitrite POSITIVEH, Urine Bilirubin NEGATIVE, Urine Urobilinogen NORMAL, Urine Leukocyte Esterase 3+H, Urine RBC (Auto) 5+H, Urine RBC 5-10H, Urine WBC 10-25H, Urine Crystals PRESENTH, Urine Triple Phosphate Crystals LARGEH, Urine Bacteria LARGEH, Urine Casts NONE, Urine Mucus NEGATIVE, Urine Culture Indicated YES 03/04/17 04:45: Troponin I < 0.30, Triglycerides Level 98, Cholesterol Level 116, LDL Cholesterol Direct 53, VLDL Cholesterol 20, HDL Cholesterol 38L 03/04/17 09:48: Glucometer 179H Microbiology 03/03/17 Urine Culture - Preliminary, Resulted Gram Negative [facility] Echocardiogram 2015 CONCLUSION: 1. Technically difficult study. 2. Normal global left ventricular systolic function with an ejection fraction of approximately 60%. 3. Moderate cardiomegaly, including the left ventricle and the left atrium. 4. Mild concentric left ventricular hypertrophy. 5. Mild mitral and tricuspid regurgitation. 6. Pulmonary artery systolic pressure is estimated to be 35 to 40 mmHg. A/P-Cardiology Assessment/Admission Diagnosis UTI sepsis, Chest pain Plan UTI sepsis: Deferred to primary team. Chest pain: Acute coronary syndrome has been ruled out with negative EKG and negative serial troponin. I have recommended echocardiogram as well as pharmacological nuclear stress testing. These will be done today. Thank you for your consultation. Please call me if you have any questions. Joesph Villarreal MD, FACP, FACC, [facility] [place], FHRS, CCDS Interventional Cardiology Cardiac Electrophysiology Vascular Medicine and Endovascular Interventions Clinical Quality Measures AMI/AHF: ASA po Prior to arrival: Yes (324mg per ems) DVT/VTE Risk/Contraindication: Risk Factor Score Per Nursin RFS Level Per Nursing on Admit: 4+=Very High Contraindications-Pharm: Other *list below* Other: On apixaban Maria Luisa VILLARREAL MD Mar 04, 2017 3:47 pm
[2017-03-04] MEDS ORDERED: cefTRIAXone 1 GM (ROCEPHIN) VIAL ONE (17:29)
[2017-03-04] MEDS ORDERED: fluCOnazole (DIFLUCAN) 100 MG TAB ONE (17:31)
[2017-03-04] MEDS ORDERED: NS (IVPB) 50 ML ONE (17:31)
[2017-03-04] MEDS ORDERED: ALFUZOSIN HCL 10 MG TAB (UROXATRAL) PO SCH (18:00)
[2017-03-04] MEDS ORDERED: TAMS0.4C2 PO (18:28)
[2017-03-04] MEDS ORDERED: FLUT9.9S NS (18:28)
[2017-03-04] MEDS ORDERED: SERT50TA9 PO (18:28)
[2017-03-04] MEDS ORDERED: GABA-488 PO (18:28)
[2017-03-04] MEDS ORDERED: LORA10TA7 PO (18:28)
[2017-03-04] MEDS ORDERED: LEVO100T7 PO (18:28)
[2017-03-04] MEDS ORDERED: SEVE800T7 PO (18:28)
[2017-03-04] MEDS ORDERED: INSU100I29 SQ (18:28)
[2017-03-04] MEDS ORDERED: BUSP10TA95 PO (18:28)
[2017-03-04] MEDS ORDERED: INSU100I14 SQ (18:28)
--- NOTE | 2017-03-04 20:36 | Discharge Summary ---
Diagnosis/Chief Complaint Date of Admission Mar 04, 2017 at 12:13 am Date of Discharge March 04, 2017 Admission Diagnosis Admission Diagnosis 1. Chest pain 2. UTI 3. HTN 4. HLD 5. Hypothyroidism 6. DMII 7. Bedbound with chronic fracture and chronic pain 8. Supplemental oxygen dependent 9. CKD 10. Atrial fibrillation Discharge Diagnosis 1. Chest pain- troponins negative -Cardiology consulted, per nursing report, stress test was abnormal, and she will be following up next week, he does not feel she will need to be inpatient until then, so she was able to be discharged 2. UTI- rocephin, awaiting culture -Given dose of rocephin late afternoon 03/04, will follow-up culture results tomorrow so that appropriate oral can be started by tomorrow evening. Indwelling hayes was changed inpatient and one dose of diflucan 150 mg given due to nursing report of significant perineal yeast infection. 3. HTN- resume home amlodipine 4. HLD- LDL 53 today, no statin on home medication list Consider statin due to diabetes even though LDL appropriate 5. Hypothyroidism- resume home synthroid, TSH normal in hospital 03/04 6. DMII- resume home liraglutide and insulin when dosing confirmed -Diabetic diet, sliding scale insulin 7. Bedbound with chronic fracture and chronic pain -Careful skin care and position changes to prevent ulcer development -Resume home pain medications 8. Supplemental oxygen dependent -Continuous oxygen as needed 9. CKD- appears to be near baseline, resume home sevelamer -Monitor electrolytes 10. Atrial fibrillation- apparently paroxysmal per history but was not on anticoagulation -Apixaban started per Cardiology recommendations Chief Complaint/HPI Chief Complaint/HPI Presented to ER about an hour after the onset of aching under breasts and into chest that did not let up in spite of sitting up, and belching some. She denies associated nausea, dizziness or radiating pain, but did feel hot. She notes she had this occur once before when she had a "mild heart attack". She had a coronary artery catheterization and stress test about 6-7 years ago which she reports were okay. She has a pacemaker, which she states was put in after an episode of UTI and sepsis where she had low heart rate in the hospital. 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 She is supplemental oxygen dependent 24 hours per day and is bedbound secondary to combination of morbid obesity and fractured knee that reportedly cannot be repaired due to prior femur fracture related to left hip replacement many years ago. She has an indwelling urinary catheter that is changed every 2 weeks because she has marked skin erythema on her buttocks that easily breaks down if exposed to moisture, she denies any open wounds at this time. She does have a history of recurrent UTI. She has had sinus drainage and admits to coughing after eating and drinking for the last month and a half with occasional "frog voice" afterward. Discharge Summary-Simple/Stand Consultations Discharge Physical Examination Allergies: Coded Allergies: Sulfa (Sulfonamide Antibiotics) (Verified Allergy, Unknown, 05/24/16) divalproex sodium (Verified Allergy, Unknown, 05/24/16) tetracycline (Unverified Adverse Reaction, Unknown, 03/03/17) Vitals & I&Os Vital Sign - Last 12Hours Date Time Temp Pulse Resp B/P (MAP) Pulse Ox O2 Delivery O2 Flow Rate FiO2 03/04/17 14:13 90 140/78 97 03/04/17 13:58 Nasal Cannula 3.00 03/04/17 13:00 25 03/04/17 12:31 97.6 Hospital Course See final discharge diagnosis. Labs Laboratory Tests Test 03/03/17 10:43 03/03/17 22:40 03/03/17 23:00 03/04/17 04:45 Range/Units White Blood Count 9.7 4.3-11.0 10^3/uL Red Blood Count 4.14 L 4.35-5.85 10^6/uL Hemoglobin 13.3 11.5-16.0 G/DL Hematocrit 43 35-52 % Mean Corpuscular Volume 104 H 80-99 FL Mean Corpuscular Hemoglobin 32 25-34 PG Mean Corpuscular Hemoglobin Concent 31 L 32-36 G/DL Red Cell Distribution Width 14.2 10.0-14.5 % Platelet Count 183 130-400 10^3/uL Mean Platelet Volume 10.9 H 7.4-10.4 FL Neutrophils (%) (Auto) 82 H 42-75 % Lymphocytes (%) (Auto) 10 L 12-44 % Monocytes (%) (Auto) 6 0-12 % Eosinophils (%) (Auto) 3 0-10 % Basophils (%) (Auto) 0 0-10 % Neutrophils # (Auto) 7.9 H 1.8-7.8 X 10^3 Lymphocytes # (Auto) 1.0 1.0-4.0 X 10^3 Monocytes # (Auto) 0.5 0.0-1.0 X 10^3 Eosinophils # (Auto) 0.3 0.0-0.3 10^3/uL Basophils # (Auto) 0.0 0.0-0.1 10^3/uL Prothrombin Time 12.9 12.2-14.7 SEC INR Comment 1.0 0.8-1.4 Activated Partial Thromboplast Time 28 24-35 SEC Sodium Level 144 135-145 MMOL/L Potassium Level 4.8 3.6-5.0 MMOL/L Chloride Level 102 98-107 MMOL/L Carbon Dioxide Level 29 21-32 MMOL/L Anion Gap 13 5-14 MMOL/L Blood Urea Nitrogen 29 H 7-18 MG/DL Creatinine 1.77 H 0.60-1.30 MG/DL Estimat Glomerular Filtration Rate 29 BUN/Creatinine Ratio 16 Glucose Level 250 H 70-105 MG/DL Calcium Level 9.5 8.5-10.1 MG/DL Magnesium Level 2.2 1.8-2.4 MG/DL Total Bilirubin 0.4 0.1-1.0 MG/DL Aspartate Amino Transf (AST/SGOT) 10 5-34 U/L Alanine Aminotransferase (ALT/SGPT) 12 0-55 U/L Alkaline Phosphatase 102 40-136 U/L Myoglobin 63.4 10.0-92.0 NG/ML Troponin I < 0.30 < 0.30 <0.30 NG/ML Total Protein 7.1 6.4-8.2 G/DL Albumin 3.7 3.2-4.5 G/DL Lipase 15 8-78 U/L Thyroid Stimulating Hormone (TSH) 1.81 0.35-4.94 UIU/ML Free Thyroxine 1.14 0.70-1.48 NG/DL Urine Color YELLOW Urine Clarity MUCOUS Urine pH 8 5-9 Urine Specific [place] 1.010 L 1.016-1.022 Urine Protein 3+ H NEGATIVE Urine Glucose (UA) NEGATIVE NEGATIVE Urine Ketones NEGATIVE NEGATIVE Urine Nitrite POSITIVE H NEGATIVE Urine Bilirubin NEGATIVE NEGATIVE Urine Urobilinogen NORMAL NORMAL MG/DL Urine Leukocyte Esterase 3+ H NEGATIVE Urine RBC (Auto) 5+ H NEGATIVE Urine RBC 5-10 H /HPF Urine WBC 10-25 H /HPF Urine Crystals PRESENT H /LPF Urine Triple Phosphate Crystals LARGE H /LPF Urine Bacteria LARGE H /HPF Urine Casts NONE /LPF Urine Mucus NEGATIVE /LPF Urine Culture Indicated YES Triglycerides Level 98 <150 MG/DL Cholesterol Level 116 < 200 MG/DL LDL Cholesterol Direct 53 1-129 MG/DL VLDL Cholesterol 20 5-40 MG/DL HDL Cholesterol 38 L 40-60 MG/DL Test 03/04/17 09:48 03/04/17 17:19 Range/Units Glucometer 179 H 130 H 70-110 MG/DL Radiology Reviewed Echocardiogram 2015 CONCLUSION: 1. Technically difficult study. 2. Normal global left ventricular systolic function with an ejection fraction of approximately 60%. 3. Moderate cardiomegaly, including the left ventricle and the left atrium. 4. Mild concentric left ventricular hypertrophy. 5. Mild mitral and tricuspid regurgitation. 6. Pulmonary artery systolic pressure is estimated to be 35 to 40 mmHg. Discharge Instructions to patient/family Please see electonic discharge instructions given to patient. Discharge Medications Reviewed and agree with Discharge Medication list on patient's Discharge Instruction sheet Clinical Quality Measures AMI/AHF: ASA po Prior to arrival: Yes (324mg per ems) DVT/VTE Risk/Contraindication: Risk Factor Score Per Nursin RFS Level Per Nursing on Admit: 4+=Very High Contraindications-Pharm: Other *list below* Other: On apixaban Copy Copies To 1: ALIREZA Chase BETHANY N MD Mar 04, 2017 8:36 pm
--- NOTE | 2017-03-04 20:44 | Discharge Instructions ---
Discharge [facility] Discharge Medications New, Converted or Re-Newed RX: Call to Patients Pharmacy Changed Medications: Insulin Aspart (Novolog Flexpen) 300 Units/3 Ml Solution 0 SQ SLIDING/SCALE for 30 Days, EA 0 Refills (Changed from: Removed Units; Refills: ; LAST FILLED 08/12/16) sliding scale Blood sugar 150-200 1 unit Blood sugar 201-250 2 units Blood sugar 251-300 3 units over 300 call Continued Medications: Amlodipine Besylate (Amlodipine Besylate) 2.5 Mg Tablet 2.5 MG PO DAILY for 30 Days, TAB 0 Refills (This prescription has been renewed) LAST FILLED 11/13/16 #90 Buspirone HCl (Buspirone HCl) 10 Mg Tablet 10 MG PO BID for 30 Days, TAB 0 Refills (This prescription has been renewed) LAST FILLED 11/05/16 #180 Docusate Sodium (Colace) 100 Mg Capsule 100 MG PO DAILY, CAP Fluticasone Propionate (Flonase Allergy Relief) 9.9 Ml [place].susp 2 SPRAY NS BID PRN for ALLERGIES for 30 Days, SPRAY 0 Refills (This prescription has been renewed) Gabapentin (Gabapentin) 300 Mg Capsule 300 MG PO TID for 30 Days, CAP 0 Refills (This prescription has been renewed) LAST FILLED 10/26/16 #90 Evelyn Root (Evelyn) 250 Mg Capsule 250 MG PO Q12H PRN for STOMACH UPSET, CAP Insulin Detemir (Levemir Flextouch) 100 Unit/1 Ml Insuln.pen 10 UNIT SQ HS for 30 Days, EA 0 Refills (This prescription has been renewed) LAST FILLED 08/12/16 Levothyroxine Sodium (Levothyroxine Sodium) 100 Mcg Tablet 100 MCG PO DAILY for 30 Days, TAB 0 Refills (This prescription has been renewed) LAST FILLED 11/05/16 #90 Liraglutide (Victoza 3-Bj) 0.6 Mg/0.1 Ml Pen.injctr 1.8 MG SQ DAILY for 30 Days, VIAL 0 Refills (This prescription has been renewed) LAST FILLED 11/05/16 #9ML Loratadine (Loratadine) 10 Mg Tablet 10 MG PO DAILY for 30 Days, TAB 0 Refills (This prescription has been renewed) LAST FILLED 11/05/16 #90 Miconazole Nitrate (Jaret Antifungal) 142 Gm Cream..g. TP DAILY PRN for RASH, TUBE Oxybutynin Chloride (Oxybutynin Chloride ER) 15 Mg Tab.er.24 15 MG PO DAILY for 30 Days, TAB 0 Refills (This prescription has been renewed) LAST FILLED 11/05/16 #30 Oxycodone HCl/Acetaminophen (Oxycodone-Acetaminophen 10-325) 1 Each Tablet 1 TAB PO QID PRN for PAIN, TAB Polyethylene Glycol 3350 (Miralax) 119 Gm Powder 17 GM PO DAILY PRN for CONSTIPATION-2ND LINE, EA Sertraline HCl (Sertraline HCl) 50 Mg Tablet 50 MG PO DAILY for 30 Days, TAB 0 Refills (This prescription has been renewed) LAST FILLED 11/06/16 #90 Sevelamer Carbonate (Renvela) 800 Mg Tablet 800 MG PO TID for 30 Days, TAB 0 Refills (This prescription has been renewed) LAST FILLED 11/05/16 #270 Tamsulosin HCl (Tamsulosin HCl) 0.4 Mg Cap.er.24h 0.4 MG PO DAILY for 30 Days, CAP 0 Refills (This prescription has been renewed) LAST FILLED 11/05/16 #90 Copy Copies To 1: ALIREZA Chase BETHANY N MD Mar 04, 2017 8:44 pm
[2017-03-04] MEDS ORDERED: busPIRone 10 MG (BUSPAR) TAB PO SCH (21:00)
[2017-03-04] MEDS ORDERED: inSUlin DETERMIR 1 UNIT/0.01 ML (LEVEMIR) CHARGE PER UNIT SQ SCH (21:00)
[2017-03-05] MEDS ORDERED: LEVOTHYROXINE 100 MCG (LEVOTHROID) TAB PO SCH (06:30)
--- NOTE | 2017-03-05 06:46 | ECHOCARDIOGRAPHY REPORT ---
DATE OF SERVICE: 2D ECHOCARDIOGRAM DATE OF SERVICE: 03/04/2017 PRIMARY PHYSICIAN: Dr. Saroj Saez. ATTENDING PHYSICIAN: Dr. Shima Mckeon. ORDERING PHYSICIAN: Dr. Joesph Villarreal DIAGNOSIS: Chest pain. FINDINGS: 1. Atrial fibrillation. 2. Atrial dimensions are enlarged. Left atrial diameter is 5.2 cm. 3. Aortic root dimension is normal. 4. Left ventricular systolic function is normal. Left ventricular ejection fraction is 60%. Mild concentric LVH is noted with diastolic interventricular diameter 1.3 cm. 5. There is suspicion for anterior hypokinesis on short axis view. However, in all other views, wall motion seems to be normal. 6. Right heart size and function is normal. A pacemaker lead is seen in the right heart. 7. There is no evidence of pericardial effusion. 8. There is possibility of diastolic dysfunction but complete evaluation was not performed. 9. IVC is 1.8 cm. 10. This is a technically difficult study. VALVULAR STRUCTURES OF THE HEART There is mild mitral regurgitation with RVSP of 25 mmHg. There is no significant mitral valve pathology. The aortic valve and pulmonic valve are within normal limits. CONCLUSION: 1. This is a technically difficult study. It was performed in atrial fibrillation. 2. Left ventricular ejection fraction is normal, ejection fraction is 60%. 3. There is mild concentric left ventricular hypertrophy with left atrial enlargement. There is no significant pulmonary hypertension. 4. A pacemaker lead is seen in the right heart. 5. There is suspicion of anterior hypokinesis in the short axis view; however, in the other views all the burris seem to have normal wall motion. Job ID: [id number] DocumentID: [id number] Dictated Date: 03/04/2017 16:26:59 Continuous Miner Date: 03/04/2017 17:26:37 Dictated By: MARLENA VILLARREAL MD
[2017-03-05] MEDS ORDERED: NON-FORMULARY MEDICATION 1 EA EA (Liraglutide (Victoza 3-Pak) 1.8 MG) SQ SCH (09:00)
[2017-03-05] MEDS ORDERED: LORATADINE (CLARITIN) 10 MG TAB PO SCH (09:00)
[2017-03-05] MEDS ORDERED: amLODIPine 2.5MG (NORVASC) TAB PO SCH (09:00)
[2017-03-05] MEDS ORDERED: SERTRALINE 50 MG (ZOLOFT) TABLET PO SCH (09:00)
[2017-03-05] MEDS ORDERED: fluCOnazole (DIFLUCAN) 100 MG TAB PO SCH (09:00)
[2017-03-05] MEDS ORDERED: cefTRIAXone INJECTION 1,000 MG in NS (IVPB) 50 ML IV SCH (17:13)
--- NOTE | 2017-03-10 13:58 | STRESS TEST ---
DATE OF SERVICE: PHARMEUCOLOGICAL NUCLEAR STRESS TEST DATE OF SERVICE: 03/04/2017. INDICATION: Chest pain. ATTENDING PHYSICIAN: Dr. Shima Mckeon. ORDERING PHYSICIAN: Dr. Luis Carlos Singh. PRIMARY CARE PHYSICIAN: Dr. Saroj Saez. INDICATION: Chest pain. PROCEDURE: The patient was brought to the chest laboratory after informed consent was taken. Lexiscan stress test was administered according to the protocol. Low-grade exercise was performed. 0.4 mg of Lexiscan was given intravenously. Baseline electrocardiogram showed paced rhythm with atrial rhythm being likely atrial fibrillation. The heart rate was 76 beats per minute. Blood pressure was 130/75 mmHg. Maximum heart rate was 122 beats per minute with blood pressure 140/78 mmHg. The patient did not have any chest pain, arrhythmias, ST-T wave abnormalities. During the Lexiscan infusion, the patient went from purely paced rhythm to atrial fibrillation with rapid ventricular rate. The QRS was a right bundle pattern. We also saw a few PVCs as well. There were no sign ST-T wave abnormalities. Only stress imaging was performed and 33 mCi of Myoview were given for stress images. Review of the stress images showed large anterior wall, anterior apical and anterior septal defect. The ejection fraction was normal with no wall motion abnormalities. CONCLUSIONS: 1. Resting imaging is recommended. 2. Large defect in the distal anterior, anterior apical, anterior septal wall. The ejection fraction is normal with no wall motion abnormality. Job ID: [id number] DocumentID: [id number] Dictated Date: 03/10/2017 12:55:31 Senior Hydrogeologist Date: 03/10/2017 13:34:32 Dictated By: LUIS CARLOS SINGH MD [facility]
== END 2017-03-04 18:01 | disposition home health service (06) ==
LOC: EDUNIT# 22:36 → ER 22:38 → UNDOADMOB 03-04 00:13 → ICU 03-04 00:13 → UNDODISOB 03-04 19:30
PROVIDERS: ADMIT Family Medicine; ATTEND Family Medicine
DX: R07.9 Chest pain, unspecified (principal); I16.0 Hypertensive urgency; I12.9 Hypertensive chronic kidney disease with stage 1 through stage 4 chronic kidney disease, or unspecified chronic kidney disease; N18.9 Chronic kidney disease, unspecified; N39.0 Urinary tract infection, site not specified; E66.01 Morbid (severe) obesity due to excess calories; I48.0 Paroxysmal atrial fibrillation; Z68.43 Body mass index [BMI] 50.0-59.9, adult; Z66 Do not resuscitate; E78.5 Hyperlipidemia, unspecified; E03.9 Hypothyroidism, unspecified; E11.9 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 mellitus without complications; Z79.4 Long term (current) use of insulin; Z74.01 Bed confinement status; S72.92XS Unspecified fracture of left femur, sequela; Z99.81 Dependence on supplemental oxygen; Z95.0 Presence of cardiac pacemaker
CPT/HCPCS: 36415; 71010; 78451; 80053; 80061; 81000; 82962; 83690; 83735; 83874; 84439; 84443; 84484; 85025; 85610; 85730; 87077; 87088; 87186; 93005; 93017; 93306; 96374; 96375; G0378

== ENCOUNTER → 2017-03-09 | Outpatient (CLI) | payer MEDICARE ==
[~2017-03-09] MED LIST changes: +CATHETER FLUSH 10 ML SYR IV PRN; +LIRA0.6P3 SQ; +OXYB15TA PO
--- NOTE | 2017-03-10 15:53 | STRESS TEST ---
DATE OF SERVICE: EXAM DATE: 03/09/2017 ATTENDING PHYSICIAN: Dr. Joesph Singh PRIMARY CARE PHYSICIAN: Dr. Saez INDICATION: Abnormal stress myocardial imaging. Chest pain. DESCRIPTION OF PROCEDURE: The patient was brought to the nuclear medicine lab after informed consent was taken. A Lexiscan stress test was performed previously on 03/04/2017 and stress imaging was performed. On 03/09/2017, 22 mEq of Myoview were given for rest imaging only. Review of the myocardial perfusion imaging showed EF of 58% with TID of 1.08. There was no wall motion abnormalities. On the rest images, there is a large apical/distal anterior defect. When we reviewed it with the stress imaging which was performed on 03/04/2017, there is a fixed anterior apical defect, a large severe fixed apical, distal anterior defect; however, there is reversible distal anterior as well as anteroseptal wall as well. CONCLUSION: Area of fixed defect and reversible defect noted as above. The fixed defect is primarily in the apical zone. The reversibility is primarily in the distal anterior and anteroseptal area. The fixed defect is large and severe in nature. The reversibility is at least moderate sized. Job ID: [id number] DocumentID: [id number] Dictated Date: 03/10/2017 12:58:47 Restaurant Line Server Date: 03/10/2017 13:32:06 Dictated By: MARLENA SINGH MD
== END ==
LOC: CARD 09:14
PROVIDERS: ATTEND Internal Medicine Interventional Cardiology
DX: R94.39 Abnormal result of other cardiovascular function study (principal)
CPT/HCPCS: 78451; 93017

== ENCOUNTER → 2017-03-26 | Outpatient (CLI) | payer MEDICARE ==
[~2017-03-26] MED LIST changes: -CATHETER FLUSH 10 ML SYR IV PRN
[2017-03-26 12:21] LABS: MEAN PLATELET VOLUME 11.2 FL (7.4-10.4); RED BLOOD COUNT 4.07 10^6/uL (4.35-5.85); RED CELL DISTRIBUTION WIDTH 14.6 % (10.0-14.5); WHITE BLOOD COUNT 7.3 10^3/uL (4.3-11.0)
[2017-03-26 12:45] LABS: ALBUMIN 3.7 G/DL (3.2-4.5); BILIRUBIN,TOTAL 0.7 MG/DL (0.1-1.0); CALCIUM 9.9 MG/DL (8.5-10.1); CREATININE SERUM 1.77 MG/DL (0.60-1.30); POTASSIUM 4.1 MMOL/L (3.6-5.0)
== END ==
LOC: HH 12:15
PROVIDERS: ATTEND Internal Medicine
DX: I12.9 Hypertensive chronic kidney disease with stage 1 through stage 4 chronic kidney disease, or unspecified chronic kidney disease (principal); E11.22 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 with diabetic chronic kidney disease; N18.9 Chronic kidney disease, unspecified
CPT/HCPCS: 80053; 85027

== ENCOUNTER 2017-04-13 00:38 | Day surgery (SDC) | payer MEDICARE ==
[~2017-04-13] VITALS: Ht 175.3 cm; Wt 163.3 kg
[2017-04-13] VITALS (15 sets, daily range): BP systolic 110–144; BP diastolic 72–97
[2017-04-13] MEDS ORDERED: ASPIRIN 81 MG CHEW (CHILDREN'S ASA) PO ONE (01:00)
[2017-04-13 01:03] LABS: BASOPHILS % (AUTO) 0 % (0-10); EOSINOPHILS # (AUTO) 0.3 10^3/uL (0.0-0.3); EOSINOPHILS % (AUTO) 4 % (0-10); LYMPHOCYTES # (AUTO) 1.1 X 10^3 (1.0-4.0); LYMPHOCYTES % (AUTO) 16 % (12-44); MEAN CORPUSCULAR HEMOGLOBIN 32 PG (25-34); MEAN CORPUSCULAR HGB CONC 31 G/DL (32-36); MEAN CORPUSCULAR VOLUME 104 FL (80-99); MEAN PLATELET VOLUME 11.1 FL (7.4-10.4); MONOCYTES # (AUTO) 0.6 X 10^3 (0.0-1.0); MONOCYTES % (AUTO) 8 % (0-12); NEUTROPHILS # (AUTO) 5.1 X 10^3 (1.8-7.8); NEUTROPHILS % (AUTO) 72 % (42-75); PLATELET COUNT 155 10^3/uL (130-400); RED BLOOD COUNT 4.16 10^6/uL (4.35-5.85); RED CELL DISTRIBUTION WIDTH 14.3 % (10.0-14.5); WHITE BLOOD COUNT 7.1 10^3/uL (4.3-11.0)
[2017-04-13 01:10] LABS: INR 1.2 (0.8-1.4); PROTHROMBIN TIME PATIENT 14.8 SEC (12.2-14.7)
[2017-04-13] MEDS: RX-NITROGLYCERIN 0.4 MG TAB BTL 25'S SL PRN ×2 (01:15→01:20)
[2017-04-13 01:22] LABS: ALANINE AMINOTRANSFERASE 9 U/L (0-55); ALBUMIN 3.4 G/DL (3.2-4.5); AMYLASE 27 U/L (25-125); ANION GAP 9 MMOL/L (5-14); ASPARTATE AMINO TRANSFERASE 10 U/L (5-34); BILIRUBIN,TOTAL 0.4 MG/DL (0.1-1.0); BLOOD UREA NITROGEN 22 MG/DL (7-18); BUN/CREATININE RATIO 12; CALCIUM 9.9 MG/DL (8.5-10.1); CARBON DIOXIDE 31 MMOL/L (21-32); CHLORIDE 103 MMOL/L (98-107); CREATINE KINASE 29 U/L (29-168); CREATININE SERUM 1.77 MG/DL (0.60-1.30); GFR ESTIMATED 29; GLUCOSE 159 MG/DL (70-105); LIPASE 10 U/L (8-78); POTASSIUM 4.2 MMOL/L (3.6-5.0); SODIUM 143 MMOL/L (135-145); TOTAL PROTEIN 6.7 G/DL (6.4-8.2)
[2017-04-13 01:29] LABS: TROPONIN I < 0.30 NG/ML (<0.30)
--- NOTE | 2017-04-13 02:28 | ED Chest Pain ---
General Chief Complaint: Respiratory Problems Stated Complaint: CP Nursing Triage Note: PT STATES SHE HAS BEEN FEELING SOB AND HAVING A RAPID HEARTBEAT FOR THE PAST COUPLE HOURS. Nursing Sepsis Screen: No Definite Risk Source: patient, EMS History of Present Illness Time seen by provider: 00:45 Initial Comments PT ARRIVES VIA EMS FROM HOME STATES SHE FEELS LIKE HER HEART IS RACING FOR THE LAST 2 HOURS C/O ACHING/CHEST HEAVINESS ACROSS LEFT CHEST AND INTO LEFT AXILLA--RATES PAIN 6/ 10 C/O FEELING SLIGHTLY SHORT OF BREATH FEELS LIKE HER ABDOMEN IS SWOLLEN/BLOATED NO NAUSEA/VOMITING + SWEATS PT HAS COPD AND WEARS O2 CONTINUOUSLY, BUT O2 CONCENTRATOR QUIT WORKING ON WEDNESDAY, AND HAS NOT BEEN REPLACED OR REPAIRED AT THIS TIME [facility] NURSE CHECKED HER O2 SAT THIS AM AND WAS 98% EMS GAVE 325 MG ASPIRIN PRIOR TO ARRIVAL PT HAS ATRIAL FIBRILLATION AND TAKES ELIQUIS AND HAS A PACEMAKER PT HAS HAD AK AND CARDIAC CATH 5 YEARS AGO, NO INTERVENTION HAD STRESS TEST HERE 03/04/17 FOR CHEST PAIN--SHOWED LARGE DEFECT OF DISTAL ANTERIOR, ANTERIOR APICAL AND ANTERIOR SEPTAL PULLIAM. PT JUST MOVED HERE IN MAY FROM [place] HAS BEEN ADMITTED HERE 4 TIMES SINCE THEN PT IS BED BOUND AND HAS INDWELLING CARDONA ALSO WANTS URINE CHECKED-THINKS SHE HAS UTI ( CHRONIC PROBLEM ) STATES URINE IS CLOUDY AND HAS A BAD ODOR NO FEVER NO LOWER ABDOMINAL PAIN PCP: DIANA KIM/DR. CALLOWAY Allergies and Home Medications Allergies Coded Allergies: Sulfa (Sulfonamide Antibiotics) (Verified Allergy, Unknown, 05/24/16) divalproex sodium (Verified Allergy, Unknown, 05/24/16) tetracycline (Unverified Adverse Reaction, Unknown, 03/03/17) Home Medications Amlodipine Besylate 2.5 Mg Tablet, 2.5 MG PO DAILY for 30 Days, Ref 0 LAST FILLED 11/13/16 #90 Prescribed by: TERENCE AMBROSE on 03/04/171827 Apixaban 5 Mg Tablet, 5 MG PO BID, (Reported) Buspirone HCl 10 Mg Tablet, 10 MG PO BID for 30 Days, Ref 0 LAST FILLED 11/05/16 #180 Prescribed by: TERENCE AMBROSE on 03/04/171827 Docusate Sodium 100 Mg Capsule, 100 MG PO DAILY, (Reported) Fluticasone Propionate 9.9 Ml [place].susp, 2 SPRAY NS BID PRN for ALLERGIES for 30 Days, Ref 0 Prescribed by: TERENCE AMBROSE on 03/04/171827 Gabapentin 300 Mg Capsule, 300 MG PO TID for 30 Days, Ref 0 LAST FILLED 10/26/16 #90 Prescribed by: TERENCE AMBROSE on 03/04/171827 Evelyn Root 250 Mg Capsule, 250 MG PO Q12H PRN for STOMACH UPSET, (Reported) Insulin Aspart 300 Units/3 Ml Solution, 0 SQ SLIDING/SCALE for 30 Days, Ref 0 sliding scale Blood sugar 150-200 1 unit Blood sugar 201-250 2 units Blood sugar 251-300 3 units over 300 call MD Prescribed by: TERENCE AMBROSE on 03/04/171827 Insulin Detemir 100 Unit/1 Ml Insuln.pen, 10 UNIT SQ HS for 30 Days, Ref 0 LAST FILLED 08/12/16 Prescribed by: TERENCE AMBROSE on 03/04/171827 Levothyroxine Sodium 100 Mcg Tablet, 100 MCG PO DAILY for 30 Days, Ref 0 LAST FILLED 11/05/16 #90 Prescribed by: TERENCE AMBROSE on 03/04/171827 Liraglutide 0.6 Mg/0.1 Ml Pen.injctr, 1.8 MG SQ DAILY for 30 Days, Ref 0 LAST FILLED 11/05/16 #9ML Prescribed by: TERENCE AMBROSE on 03/04/171827 Loratadine 10 Mg Tablet, 10 MG PO DAILY for 30 Days, Ref 0 LAST FILLED 11/05/16 #90 Prescribed by: TERENEC AMBROSE on 03/04/171827 Miconazole Nitrate 142 Gm Cream..g., TP DAILY PRN for RASH, (Reported) Oxybutynin Chloride 15 Mg Tab.er.24, 15 MG PO DAILY for 30 Days, Ref 0 LAST FILLED 11/05/16 #30 Prescribed by: TERENCE AMBROSE on 03/04/171827 Oxycodone HCl/Acetaminophen 1 Each Tablet, 1 TAB PO QID PRN for PAIN, (Reported) Oxycodone HCl/Acetaminophen 1 Each Tablet, 10-325 MG PO for PAIN-MILD TO MODERATE, #112 (Reported) Polyethylene Glycol 3350 119 Gm Powder, 17 GM PO DAILY PRN for CONSTIPATION-2ND LINE, (Reported) Sertraline HCl 50 Mg Tablet, 50 MG PO DAILY for 30 Days, Ref 0 LAST FILLED 11/06/16 #90 Prescribed by: TERENCE AMBROSE on 03/04/171827 Sevelamer Carbonate 800 Mg Tablet, 800 MG PO TID for 30 Days, Ref 0 LAST FILLED 11/05/16 #270 Prescribed by: TERENCE AMBROSE on 03/04/171827 Tamsulosin HCl 0.4 Mg Cap.er.24h, 0.4 MG PO DAILY for 30 Days, Ref 0 LAST FILLED 11/05/16 #90 Prescribed by: TERENCE AMBROSE on 03/04/178 Review of Systems Constitutional: diaphoresis, other (PT IS BED BOUND) Respiratory: See HPI, Shortness of Air Cardiovascular: See HPI, Chest Pain, Edema, Irregular Heart Rate, Denies Lightheadedness, Palpitations Gastrointestinal: See HPI, Abdomen Distended, Denies Nausea, Denies Vomiting Genitourinary: Other (INDWELLING CARDONA CATHETER) Musculoskeletal: other ( CHRONIC GENERALIZED PAIN) Skin: no symptoms reported Psychiatric/Neurological: Pre-Existing Deficit (NEUROPATHY) Endocrine: No Symptoms Reported Hematologic/Lymphatic: No Symptoms Reported Past Hneuzre-Qzttax-Lhpfra Hx Patient Social History Alcohol Use: Denies Use Recreational Drug Use: No Smoking Status: Former Smoker (2 PPD, QUIT 1984) 2nd Hand Smoke Exposure: No Recent Foreign Travel: No Contact w/Someone Who Travel: No Recent Infectious Disease Expo: No Recent Hopitalizations: No Immunizations Up To Date Tetanus Booster (TDap): More than 5yrs PED Vaccines UTD: No Date of Pneumonia Vaccine: Dec 06, 2014 Date of Influenza Vaccine: Nov 22, 2015 Seasonal Allergies Seasonal Allergies: No Surgeries HX Surgeries: Yes (LEFT HIP REPLACEMENT; BILATERAL SHOULDER SURGERIES; MULTIPLE LITHOTRIPSIES AND OPEN KIDNEY STONE REMOVAL; BILATERAL NEPHROSTOMY TUBES / LATER REMOVED; EGD; CARDIAC CATH--NO INTERVENTION BUT HAD POST- PROCEDURE REPAIR OF ILIAC ARTERY) Surgeries: Cardiac, Gallbladder, Joint Replacement (LEFT TOTAL HIP REPLACEMENT) , Orthopedic, Pacemaker, Tonsillectomy, Vascular Surgery Respiratory Hx Respiratory Disorders: Yes (O2 AT 2L/NC CONTINUOUSLY) Respiratory Disorders: Asthma, COPD Cardiovascular Hx Cardiac Disorders: Yes (CHF; AK--NO INTERVENTION; PACEMAKER) Cardiac Disorders: Atrial Fibrillation, Chronic Edema/Swelling, Coronary Artery Disease, Heart Attack, Hypertension Neurological Hx Neurological Disorders: Yes (HAD ONE SEIZURE AFTER SHE TOOK DEPAKOTE ( STATES SHE DOES NOT KNOW WHY SHE WAS PUT ON DEPAKOTE ) ) Neurological Disorders: Neuropathy Reproductive System Hx Reproductive Disorders: No Sexually Transmitted Disease: No HIV/AIDS: No Female Reproductive Disorders: Denies Genitourinary Hx Genitourinary Disorders: Yes (INDWELLING CARDONA) Genitourinary Disorders: Kidney Infection, Bladder Infection, Kidney Stones, Renal Failure, UTI-Chronic Gastrointestinal Hx Gastrointestinal Disorders: Yes (GASTRITIS PER PT --FOUND ON EGD) Gastrointestinal Disorders: Abdominal Hernia (VENTRAL HERNIA), Gastroesophageal Reflux Musculoskeletal Hx Musculoskeletal Disorders: Yes (BED BOUND DUE TO GENERALIZED PAIN AND OBESITY; LEFT KNEE FRACTURE; LEFT HIP REPLACEMENT; BILATERAL SHOULDER SURGERIES) Musculoskeletal Disorders: Degenerate Disk Disease, Arthritis, Fibromyalgia, Chronic Back Pain, Fractures Endocrine Hx Endocrine Disorders: Yes (MORBID OBESITY; DIABETES--PT SELF DC'D HER INSULIN --STILL TAKES VICTOZA) Endocrine Disorders: Hypothyroidsim, Diabetes, Non-Insulin dep HEENT HX ENT Disorders: Yes HEENT Disorders: Eye Injury Loss of Vision: Right Hearing Impairment: Denies Cancer Hx Cancer: No Psychosocial Hx Psychiatric Problems: Yes Behavioral Health Disorders: Depression Integumentary HX Skin/Integumentary Disorder: Yes (PREVIOUS SKIN BREAKDOWN) Blood Transfusions Hx Blood Disorders: No Adverse Reaction to a Blood Tr: No Family Medical History Significant Family History: Heart Disease, CAD Over 55 Years Old, Hypertension , Renal Disease Family Medial History: Arthritis G8 SISTER Bleeding disorder G8 BROTHER Cardiovascular disease G8 SISTER Diabetes mellitus 19 MOTHER FH: brain tumor 19 FATHER Hypertension G8 SISTER G8 SISTER G8 SISTER Kidney disease 19 MOTHER Thyroid disease G8 SISTER Physical Exam Vital Signs Vital Sign - Last 12Hours 04/13/17 04/13/17 00:45 01:00 Temp 98.2 Pulse 79 Resp 20 B/P (MAP) 134/96 Pulse Ox 93 O2 Delivery Room Air O2 Flow Rate 4.00 FiO2 94 Capillary Refill : Less Than 3 Seconds General Appearance: No Apparent Distress, WD/WN, Obese Neck: Full Range of Motion, Normal Inspection, Non Tender, Supple Respiratory: Normal Breath Sounds, No Accessory Muscle Use, No Respiratory Distress, Decreased Breath Sounds (IN BASES) Cardiovascular: No Murmur, Irregularly Irregular Gastrointestinal: Normal Bowel Sounds, Non Tender, Soft Extremity: Pedal Edema Neurologic/Psychiatric: Alert, Oriented x3, No Motor/Sensory Deficits, Normal Mood/Affect, verse writer II-XII Norm as Tested Skin: Normal Color, Warm/Dry Progress/Results/Core Measures Results/Orders Lab Results Laboratory Tests Test 04/13/17 00:42 Range/Units White Blood Count 7.1 4.3-11.0 10^3/uL Red Blood Count 4.16 L 4.35-5.85 10^6/uL Hemoglobin 13.4 11.5-16.0 G/DL Hematocrit 43 35-52 % Mean Corpuscular Volume 104 H 80-99 FL Mean Corpuscular Hemoglobin 32 25-34 PG Mean Corpuscular Hemoglobin Concent 31 L 32-36 G/DL Red Cell Distribution Width 14.3 10.0-14.5 % Platelet Count 155 130-400 10^3/uL Mean Platelet Volume 11.1 H 7.4-10.4 FL Neutrophils (%) (Auto) 72 42-75 % Lymphocytes (%) (Auto) 16 12-44 % Monocytes (%) (Auto) 8 0-12 % Eosinophils (%) (Auto) 4 0-10 % Basophils (%) (Auto) 0 0-10 % Neutrophils # (Auto) 5.1 1.8-7.8 X 10^3 Lymphocytes # (Auto) 1.1 1.0-4.0 X 10^3 Monocytes # (Auto) 0.6 0.0-1.0 X 10^3 Eosinophils # (Auto) 0.3 0.0-0.3 10^3/uL Basophils # (Auto) 0.0 0.0-0.1 10^3/uL Prothrombin Time 14.8 H 12.2-14.7 SEC INR Comment 1.2 0.8-1.4 Activated Partial Thromboplast Time 34 24-35 SEC Sodium Level 143 135-145 MMOL/L Potassium Level 4.2 3.6-5.0 MMOL/L Chloride Level 103 98-107 MMOL/L Carbon Dioxide Level 31 21-32 MMOL/L Anion Gap 9 5-14 MMOL/L Blood Urea Nitrogen 22 H 7-18 MG/DL Creatinine 1.77 H 0.60-1.30 MG/DL Estimat Glomerular Filtration Rate 29 BUN/Creatinine Ratio 12 Glucose Level 159 H 70-105 MG/DL Calcium Level 9.9 8.5-10.1 MG/DL Total Bilirubin 0.4 0.1-1.0 MG/DL Aspartate Amino Transf (AST/SGOT) 10 5-34 U/L Alanine Aminotransferase (ALT/SGPT) 9 0-55 U/L Alkaline Phosphatase 86 40-136 U/L Total Creatine Kinase 29 29-168 U/L Creatine Kinase MB 0.7 <6.6 NG/ML Troponin I < 0.30 <0.30 NG/ML B-Type Natriuretic Peptide 39.6 <100.0 PG/ML Total Protein 6.7 6.4-8.2 G/DL Albumin 3.4 3.2-4.5 G/DL Amylase Level 27 25-125 U/L Lipase 10 8-78 U/L My Orders Orders - LUCY NICHOLS DO Amylase (04/13/17 00:48) Cbc With Automated Diff (04/13/17 00:48) Comprehensive Metabolic Panel (04/13/17 00:48) Creatine Kinase (04/13/17 00:48) Creatine Kinase Mb (04/13/17 00:48) Lipase (04/13/17 00:48) Partial Thromboplastin Time (04/13/17 00:48) Protime With Inr (04/13/17 00:48) Troponin I (04/13/17 00:48) Chest 1 View, Ap/Pa Only (04/13/17 00:48) O2 (04/13/17 00:48) Ekg Tracing (04/13/17 00:48) Aspirin Chewable Tablet (Baby Aspirin Ch (04/13/17 01:00) Rx-Nitroglycerin Sl Tabs (Rx-Nitrostat S (04/13/17 01:00) BNP (04/13/17 00:48) Monitor-Rhythm Ecg Trace Only (04/13/17 00:48) Medications Given in ED Current Medications Medications Dose Ordered Sig/Setfanie Route Start Time Stop Time Status Last Admin Dose Admin Nitroglycerin 0.4 mg UD PRN SL 04/13/17 01:00 04/13/17 01:20 0.4 MG Vital Signs/I&O Vital Sign - Last 12Hours 04/13/17 04/13/17 00:45 01:00 Temp 98.2 Pulse 79 Resp 20 B/P (MAP) 134/96 Pulse Ox 93 O2 Delivery Room Air Nasal Cannula O2 Flow Rate 4.00 FiO2 94 Blood Pressure Mean: 109 Progress Note : Progress Note PT IS PAIN-FREE WITH NTG SL X 3 NO DETERIORATION IN PT'S CONDITION DURING ER STAY ECG Initial ECG Impression Time: 00:51 Initial ECG Rate: 78 Initial ECG Rhythm: A Fib/Flutter (RBBB/LAFB) Initial ECG Comparisson: Unchanged Diagnostic Imaging Comments CXR--CARDIOMEGALY, NO OVERT CHF--PENDING RADIOLOGIST REVIEW Reviewed: Reviewed by Me Departure Communication Progress Notes 0132--SPOKE WITH DR. PATEL, ACCEPTS PT FOR ADMIT.. WILL CONSULT CARDIOLOGY IN AM. Impression Impression: Primary Impression: Chest pain Additional Impressions: Chronic atrial fibrillation Morbid obesity BED BOUND STATUS Chronic renal failure NIDDM Disposition: ADMITTED INPATIENT Condition: Improved Decision to Admit Reason: Admit from ER (General) Decision to Admit/Date: April 13, 2017 Time/Decision to Admit Time: 01:30 Departure-Patient Inst. Referrals: LEONARDO CALLOWAY MD (PCP/Family) Primary Care Physician LUCY NICHOLS DO April 13, 2017 02:28
[2017-04-13] MEDS ORDERED: OXYC-465 PO (03:26)
[2017-04-13] MEDS ORDERED: APIX5TAB PO (03:26)
[2017-04-13] MEDS ORDERED: POLYETHYLENE GLYCOL 17 GM (MIRALAX) PACK PO PRN (04:15)
[2017-04-13] MEDS ORDERED: GINGER ROOT 250 MG PO PRN (04:15)
[2017-04-13] MEDS ORDERED: MICONAZOLE NITRATE 2% CRM 30 GM TP PRN (04:15)
[2017-04-13] MEDS ORDERED: FLUTICASONE NASAL SPRAY (FLONASE) 16 GM BTL NS PRN (04:15)
[2017-04-13] MEDS ORDERED: morphine INJ 10 MG/ML 1ML (SYR OR VIAL) IVP PRN (04:15)
[2017-04-13] MEDS ORDERED: NITROGLYCERIN SUBLINGUAL 0.4 MG TAB (NITROSTAT) SL PRN (04:15)
[2017-04-13] MEDS: oxyCODONE/APAP 10/325MG (PERCOCET 10) TABLET PO PRN ×4 (04:31→22:25)
[2017-04-13 04:33] LABS: BILIRUBIN,URINE NEGATIVE (NEGATIVE); KETONES,URINE NEGATIVE (NEGATIVE); LEUKOCYTE ESTERASE ,URINE 3+ (NEGATIVE); NITRITE,URINE POSITIVE (NEGATIVE); PH,URINE 8 (5-9); PROTEIN,URINE 4+ (NEGATIVE); UROBILINOGEN,URINE NORMAL (NORMAL)
[2017-04-13 04:35] LABS: TRIPLE PHOSPHATE CRYSTAL,UR LARGE /LPF
[2017-04-13] MEDS ORDERED: INSULIN ASPART SQ SCH (06:00)
[2017-04-13 06:36] LABS: BASOPHILS % (AUTO) 0 % (0-10); EOSINOPHILS # (AUTO) 0.2 10^3/uL (0.0-0.3); EOSINOPHILS % (AUTO) 3 % (0-10); LYMPHOCYTES % (AUTO) 14 % (12-44); MEAN CORPUSCULAR HEMOGLOBIN 33 PG (25-34); MEAN CORPUSCULAR HGB CONC 31 G/DL (32-36); MEAN CORPUSCULAR VOLUME 104 FL (80-99); MEAN PLATELET VOLUME 10.8 FL (7.4-10.4); MONOCYTES # (AUTO) 0.5 X 10^3 (0.0-1.0); MONOCYTES % (AUTO) 7 % (0-12); NEUTROPHILS # (AUTO) 5.5 X 10^3 (1.8-7.8); NEUTROPHILS % (AUTO) 77 % (42-75); PLATELET COUNT 147 10^3/uL (130-400); RED BLOOD COUNT 3.96 10^6/uL (4.35-5.85); WHITE BLOOD COUNT 7.2 10^3/uL (4.3-11.0)
[2017-04-13 06:59] LABS: ALBUMIN 3.3 G/DL (3.2-4.5); BILIRUBIN,TOTAL 0.5 MG/DL (0.1-1.0); CALCIUM 9.5 MG/DL (8.5-10.1); CREATININE SERUM 1.71 MG/DL (0.60-1.30); POTASSIUM 4.7 MMOL/L (3.6-5.0); TOTAL PROTEIN 6.3 G/DL (6.4-8.2)
[2017-04-13 07:07] LABS: MYOGLOBIN SERUM 69.2 NG/ML (10.0-92.0)
--- NOTE | 2017-04-13 08:06 | Diagnostic Imaging Report ---
EXAM: CHEST 1 VIEW, AP/PA ONLY INDICATION: Chest pain. COMPARISON: Chest radiograph 03/03/2017. FINDINGS: No significant change. Cardiomegaly with mild pulmonary venous congestion. No definite pleural effusion or pneumothorax. Cardiac pacer. No acute osseous findings. IMPRESSION: No significant change. Cardiomegaly with mild pulmonary venous congestion. Dictated by: Dictated on workstation # [id number]
[2017-04-13] MEDS ORDERED: ASPIRIN E.C. 325 MG (ECOTRIN) TABLET PO SCH (09:00)
[2017-04-13] MEDS ORDERED: GABAPENTIN 300 MG (NEURONTIN) CAP PO SCH (09:00)
[2017-04-13] MEDS: OXYBUTYNIN (DITROPAN) 5 MG TAB PO SCH (09:26)
[2017-04-13] MEDS: DOCUSATE SODIUM 100 MG (COLACE) CAP PO SCH (09:26)
[2017-04-13] MEDS: LEVOTHYROXINE 100 MCG (LEVOTHROID) TAB PO SCH (09:27)
[2017-04-13] MEDS: busPIRone 10 MG (BUSPAR) TAB PO SCH ×2 (09:27→22:25)
[2017-04-13] MEDS: SERTRALINE 50 MG (ZOLOFT) TABLET PO SCH (09:27)
[2017-04-13] MEDS: amLODIPine 2.5MG (NORVASC) TAB PO SCH (09:27)
[2017-04-13] MEDS: APIXABAN 5 MG (ELIQUIS) TABLET PO SCH ×2 (09:27→22:25)
[2017-04-13] MEDS: LORATADINE (CLARITIN) 10 MG TAB PO SCH (09:27)
[2017-04-13] MEDS: SEVELAMER CARBONATE 800 MG TAB (RENVELA) NON-FORMULARY PO SCH ×3 (09:32→22:25)
[2017-04-13] MEDS ORDERED: LORA10TA7 PO (11:44)
[2017-04-13] MEDS ORDERED: SEVE800T7 PO (11:44)
[2017-04-13] MEDS ORDERED: NSTR15O TOP (11:44)
[2017-04-13] MEDS ORDERED: SERT50TA2 PO (11:44)
[2017-04-13] MEDS ORDERED: ASCO-262 PO (11:44)
[2017-04-13] MEDS ORDERED: OXYB15TA PO (11:44)
[2017-04-13] MEDS ORDERED: LIRA0.6P SQ (11:44)
[2017-04-13] MEDS ORDERED: INSU100I14 SQ (11:44)
[2017-04-13] MEDS ORDERED: AMLO2.5T PO (11:44)
[2017-04-13] MEDS ORDERED: INSU100I29 SQ (11:44)
[2017-04-13] MEDS ORDERED: BUSP10TA95 PO (11:44)
[2017-04-13] MEDS ORDERED: GABA-490 PO (11:44)
[2017-04-13] MEDS ORDERED: LEVO100T7 PO (11:44)
[2017-04-13] MEDS ORDERED: TAMS0.4C98 PO (11:44)
[2017-04-13] MEDS ORDERED: LIDO5CRE20 TOP (11:44)
[2017-04-13] MEDS ORDERED: NYST60PO TOP (11:44)
[2017-04-13] MEDS ORDERED: FLUT16SP22 NS (11:44)
[2017-04-13] MEDS: GABAPENTIN 400 MG (NEURONTIN) CAP PO SCH ×2 (13:52→22:25)
--- NOTE | 2017-04-13 14:04 | Consultation-Cardiology ---
HPI-Cardiology Cardiology Consultation: Date of Consultation 04/13/17 Date of Admission 04-12-17 Attending Physician Shima Mckeon MD Admitting Physician Saroj Saez MD Consulting Physician Sharon Blandon MD HPI: Chief Complaint: Chest Pain Ms. Villanueva is a 61 year old female admitted to ICU 2 from the ED. BUV-Towraj-Ypwssb Hx Patient Social History Alcohol Use: Denies Use Recreational Drug Use: No Smoking Status: Former Smoker (2 PPD, QUIT 1984) 2nd Hand Smoke Exposure: No Recent Foreign Travel: No Recent Infectious Disease Expo: No Hospitalization with Isolation: Denies Physical Abuse Screen: No Sexual Abuse: No Immunizations Up To Date Tetanus Booster (TDap): More than 5yrs Date of Pneumonia Vaccine: Dec 06, 2014 Date of Influenza Vaccine: Nov 22, 2015 Past Medical History PMH As described under Assessment. Family Medical History Family History: Arthritis G8 SISTER Bleeding disorder G8 BROTHER Cardiovascular disease G8 SISTER Diabetes mellitus 19 MOTHER FH: brain tumor 19 FATHER Hypertension G8 SISTER G8 SISTER G8 SISTER Kidney disease 19 MOTHER Thyroid disease G8 SISTER Allergies and Home Medications Allergies Coded Allergies: Sulfa (Sulfonamide Antibiotics) (Verified Allergy, Unknown, 05/24/16) divalproex sodium (Verified Allergy, Unknown, 05/24/16) tetracycline (Unverified Adverse Reaction, Unknown, 03/03/17) Home Medications Amlodipine Besylate 2.5 Mg Tablet, 2.5 MG PO DAILY, (Reported) Apixaban 5 Mg Tablet, 5 MG PO BID, (Reported) Ascorbate Calcium 500 Mg Tablet, 500 MG PO DAILY, (Reported) Buspirone HCl 10 Mg Tablet, 10 MG PO BID, (Reported) Docusate Sodium 100 Mg Capsule, 100 MG PO DAILY, (Reported) Fluticasone Propionate 16 Gm [place].susp, 2 SPRAYS NS BID, (Reported) Gabapentin 400 Mg Capsule, 400 MG PO TID, (Reported) Evelyn Root 250 Mg Capsule, 250 MG PO Q12H PRN for STOMACH UPSET, (Reported) Insulin Aspart 300 Units/3 Ml Solution, SQ SLIDING/SCALE PRN for HIGH BLOOD SUGAR, (Reported) USE WITH MEALS PER SLIDING SCALE 150-200 = 1 UNIT 201-250 = 2 UNITS 251-300 = 3 UNITS OVER 300 = CALL Insulin Detemir 100 Unit/1 Ml Insuln.pen, 10 UNIT SQ HS PRN for HIGH BLOOD SUGAR , (Reported) Levothyroxine Sodium 100 Mcg Tablet, 100 MCG PO DAILY, (Reported) Lidocaine 5 Gm Cream..g., TOP TID PRN for SKIN SORE PAIN, (Reported) Liraglutide 0.6 Mg/0.1 Ml Pen.injctr, 1.8 MG SQ DAILY, (Reported) Loratadine 10 Mg Tablet, 10 MG PO DAILY, (Reported) Miconazole Nitrate 142 Gm Cream..g., TP DAILY PRN for RASH, (Reported) Nystatin 60 Gm Powder, TOP BID, (Reported) Nystatin/Triamcinolone 15 Gm Oint, TOP BID PRN for YEAST, (Reported) Oxybutynin Chloride 15 Mg Tab.er.24, 15 MG PO HS, (Reported) Oxycodone HCl/Acetaminophen 1 Each Tablet, 1 TAB PO QID, (Reported) Polyethylene Glycol 3350 119 Gm Powder, 17 GM PO DAILY PRN for CONSTIPATION-2ND LINE, (Reported) Sertraline HCl 50 Mg Tablet, 50 MG PO DAILY, (Reported) Sevelamer Carbonate 800 Mg Tablet, 800 MG PO TID, (Reported) Tamsulosin HCl 0.4 Mg Cap, 0.4 MG PO DAILY, (Reported) Physical Exam-Cardiology Physical Exam Vital Signs/I&O Vital Sign - Last 12Hours 04/13/17 04/13/17 04/13/17 04/13/17 03:15 03:18 03:30 03:36 Temp 97.9 Pulse 73 69 77 Resp 33 34 B/P (MAP) 134/97 137/89 Pulse Ox 96 O2 Flow Rate 4.00 4.00 4.00 04/13/17 04/13/17 04/13/17 04/13/17 03:45 04:00 04:00 04:15 Pulse 70 79 79 Resp 17 35 16 B/P (MAP) 144/97 130/88 131/97 Pulse Ox 96 O2 Flow Rate 4.00 4.00 4.00 4.00 04/13/17 04/13/17 04/13/17 04/13/17 04:30 05:00 05:30 06:00 Pulse 79 72 70 73 Resp 16 13 14 14 B/P (MAP) 129/77 140/95 133/96 139/92 O2 Flow Rate 4.00 4.00 4.00 4.00 04/13/17 04/13/17 04/13/17 04/13/17 07:00 08:00 08:50 09:00 Temp 96.2 Pulse 68 77 69 Resp 14 11 B/P (MAP) 137/84 125/84 Pulse Ox 97 O2 Flow Rate 4.00 4.00 4.00 04/13/17 04/13/17 10:00 11:00 Temp 96.5 Pulse 68 75 Resp 12 12 B/P (MAP) 139/84 110/75 Pulse Ox 95 O2 Flow Rate 4.00 4.00 Capillary Refill : Less Than 3 Seconds Data Review Labs Laboratory Tests 04/13/17 00:42: White Blood Count 7.1, Red Blood Count 4.16L, Hemoglobin 13.4, Hematocrit 43, Mean Corpuscular Volume 104H, Mean Corpuscular Hemoglobin 32, Mean Corpuscular Hemoglobin Concent 31L, Red Cell Distribution Width 14.3, Platelet Count 155, Mean Platelet Volume 11.1H, Neutrophils (%) (Auto) 72, Lymphocytes (%) (Auto) 16 , Monocytes (%) (Auto) 8, Eosinophils (%) (Auto) 4, Basophils (%) (Auto) 0, Neutrophils # (Auto) 5.1, Lymphocytes # (Auto) 1.1, Monocytes # (Auto) 0.6, Eosinophils # (Auto) 0.3, Basophils # (Auto) 0.0, Prothrombin Time 14.8H, INR Comment 1.2, Activated Partial Thromboplast Time 34, Sodium Level 143, Potassium Level 4.2, Chloride Level 103, Carbon Dioxide Level 31, Anion Gap 9, Blood Urea Nitrogen 22H, Creatinine 1.77H, Estimat Glomerular Filtration Rate 29 , BUN/Creatinine Ratio 12, Glucose Level 159H, Calcium Level 9.9, Total Bilirubin 0.4, Aspartate Amino Transf (AST/SGOT) 10, Alanine Aminotransferase ( ALT/SGPT) 9, Alkaline Phosphatase 86, Total Creatine Kinase 29, Creatine Kinase MB 0.7, Troponin I < 0.30, B-Type Natriuretic Peptide 39.6, Total Protein 6.7, Albumin 3.4, Amylase Level 27, Lipase 10 04/13/17 04:28: Urine Color YELLOW, Urine Clarity VERY CLOUDYH, Urine pH 8, Urine Specific [place] 1.010L, Urine Protein 4+, Urine Glucose (UA) NEGATIVE, Urine Ketones NEGATIVE, Urine Nitrite POSITIVEH, Urine Bilirubin NEGATIVE, Urine Urobilinogen NORMAL, Urine Leukocyte Esterase 3+H, Urine RBC (Auto) 5+H, Urine RBC 5-10H, Urine WBC 2-5, Urine Crystals PRESENTH, Urine Triple Phosphate Crystals LARGEH, Urine Bacteria LARGEH, Urine Casts NONE, Urine Mucus NEGATIVE, Urine Culture Indicated YES 04/13/17 06:30: White Blood Count 7.2, Red Blood Count 3.96L, Hemoglobin 12.9, Hematocrit 41, Mean Corpuscular Volume 104H, Mean Corpuscular Hemoglobin 33, Mean Corpuscular Hemoglobin Concent 31L, Red Cell Distribution Width 14.0, Platelet Count 147, Mean Platelet Volume 10.8H, Neutrophils (%) (Auto) 77H, Lymphocytes (%) (Auto) 14, Monocytes (%) (Auto) 7, Eosinophils (%) (Auto) 3, Basophils (%) (Auto) 0, Neutrophils # (Auto) 5.5, Lymphocytes # (Auto) 1.0, Monocytes # (Auto) 0.5, Eosinophils # (Auto) 0.2, Basophils # (Auto) 0.0, Sodium Level 144, Potassium Level 4.7, Chloride Level 104, Carbon Dioxide Level 31, Anion Gap 9, Blood Urea Nitrogen 22H, Creatinine 1.71H, Estimat Glomerular Filtration Rate 30, BUN/ Creatinine Ratio 13, Glucose Level 124H, Calcium Level 9.5, Total Bilirubin 0.5 , Aspartate Amino Transf (AST/SGOT) 9, Alanine Aminotransferase (ALT/SGPT) 9, Alkaline Phosphatase 75, Troponin I < 0.30, Total Protein 6.3L, Albumin 3.3, Myoglobin 69.2 04/13/17 11:15: Glucometer 90 A/P-Cardiology Assessment/Admission Diagnosis Chest pain of undetermined etiology Reports h/o MT approx 5 years ago (previously living in [place]) - reports cardiac cath with no intervention at that time H/O recurrent UTI's Chronic a-fib - rate controlled H/O PPM (implanted in [place]) Clinical Quality Measures DVT/VTE Risk/Contraindication: Risk Factor Score Per Nursin RFS Level Per Nursing on Admit: 4+=Very High ANA MARIA GUTIERRES April 13, 2017 14:04
--- NOTE | 2017-04-13 14:05 | Consultation-Cardiology ---
HPI-Cardiology Cardiology Consultation: Date of Consultation 04/13/17 Date of Admission 04-12-17 Attending Physician Shima Mckeon MD Admitting Physician Saroj Saez MD Consulting Physician Sharon Blandon MD HPI: Chief Complaint: Chest pain Dyspnea Ms. Villanueva is a 61 year old female who has been admitted to ICU 2 from the ED. She reports yesterday she began having left sided chest pain which radiated into her armpit. She describes it as an ache. She reports she felt as though her heart was pounding. She felt short of breath. She states the discomfort was constant. She reports she uses an oxygen concentrator, but it broke on Wednesday, so she has been without oxygen since then. She reports she has been monitoring her oxygen sat at home. She does not report any syncope or near syncope. She is immobile and w/c bound. She reports the discomfort persisted until she received 3 nitro in the the ED which did finally resolve the pain. She is currently pain free and she feels her breathing has improved. Review of Systems-Cardiology Review of Systems Constitutional: As described under HPI Eyes: No blurred vision, No drainage, No pain, No vision change Ears/Nose/Throat: No ear discharge, No ear pain, No nasal drainage, No ulcerations Respiratory: As described under HPI Cardiovascular: As described under HPI Gastrointestinal: constipation (chronic), No diarrhea, No nausea, No vomiting, No stool coloration changes Genitourinary: No dysuria, No discharge, No frequency, No hematuria, No urgency , other (indwelling urinary cath) Musculoskeletal: other (w/c ; bed bound) Skin: No rash, No skin related problems, No ulcerations Psychiatric/Neurological: No anxiety, No depression, No focal weakness, No seizure, No syncope Hematologic: No bleeding abnormalities NWY-Palyhv-Ixdriy Hx Patient Social History Alcohol Use: Denies Use Recreational Drug Use: No Smoking Status: Former Smoker (2 PPD, QUIT 1984) 2nd Hand Smoke Exposure: No Recent Foreign Travel: No Recent Infectious Disease Expo: No Hospitalization with Isolation: Denies Physical Abuse Screen: No Sexual Abuse: No Immunizations Up To Date Tetanus Booster (TDap): More than 5yrs Date of Pneumonia Vaccine: Dec 06, 2014 Date of Influenza Vaccine: Nov 22, 2015 Past Medical History PMH As described under Assessment. Family Medical History Family Medical History: She reports her sisters have HTN with one sister having CAD. No report of premature CAD or SCD. Family History: 19 FATHER FH: brain tumor 19 MOTHER Kidney disease Diabetes mellitus G8 BROTHER Bleeding disorder G8 SISTER Hypertension Cardiovascular disease G8 SISTER Hypertension G8 SISTER Hypertension Arthritis Thyroid disease Allergies and Home Medications Allergies Coded Allergies: Sulfa (Sulfonamide Antibiotics) (Verified Allergy, Unknown, 05/24/16) divalproex sodium (Verified Allergy, Unknown, 05/24/16) tetracycline (Unverified Adverse Reaction, Unknown, 03/03/17) Home Medications Amlodipine Besylate 2.5 Mg Tablet, 2.5 MG PO DAILY, (Reported) Apixaban 5 Mg Tablet, 5 MG PO BID, (Reported) Ascorbate Calcium 500 Mg Tablet, 500 MG PO DAILY, (Reported) Buspirone HCl 10 Mg Tablet, 10 MG PO BID, (Reported) Docusate Sodium 100 Mg Capsule, 100 MG PO DAILY, (Reported) Fluticasone Propionate 16 Gm [place].susp, 2 SPRAYS NS BID, (Reported) Gabapentin 400 Mg Capsule, 400 MG PO TID, (Reported) Evelyn Root 250 Mg Capsule, 250 MG PO Q12H PRN for STOMACH UPSET, (Reported) Insulin Aspart 300 Units/3 Ml Solution, SQ SLIDING/SCALE PRN for HIGH BLOOD SUGAR, (Reported) USE WITH MEALS PER SLIDING SCALE 150-200 = 1 UNIT 201-250 = 2 UNITS 251-300 = 3 UNITS OVER 300 = CALL MD Insulin Detemir 100 Unit/1 Ml Insuln.pen, 10 UNIT SQ HS PRN for HIGH BLOOD SUGAR , (Reported) Levothyroxine Sodium 100 Mcg Tablet, 100 MCG PO DAILY, (Reported) Lidocaine 5 Gm Cream..g., TOP TID PRN for SKIN SORE PAIN, (Reported) Liraglutide 0.6 Mg/0.1 Ml Pen.injctr, 1.8 MG SQ DAILY, (Reported) Loratadine 10 Mg Tablet, 10 MG PO DAILY, (Reported) Miconazole Nitrate 142 Gm Cream..g., TP DAILY PRN for RASH, (Reported) Nystatin 60 Gm Powder, TOP BID, (Reported) Nystatin/Triamcinolone 15 Gm Oint, TOP BID PRN for YEAST, (Reported) Oxybutynin Chloride 15 Mg Tab.er.24, 15 MG PO HS, (Reported) Oxycodone HCl/Acetaminophen 1 Each Tablet, 1 TAB PO QID, (Reported) Polyethylene Glycol 3350 119 Gm Powder, 17 GM PO DAILY PRN for CONSTIPATION-2ND LINE, (Reported) Sertraline HCl 50 Mg Tablet, 50 MG PO DAILY, (Reported) Sevelamer Carbonate 800 Mg Tablet, 800 MG PO TID, (Reported) Tamsulosin HCl 0.4 Mg Cap, 0.4 MG PO DAILY, (Reported) Physical Exam-Cardiology Physical Exam Vital Signs/I&O Vital Sign - Last 12Hours 04/13/17 04/13/17 04/13/17 04/13/17 07:00 08:00 08:50 08:50 Temp 96.2 Pulse 68 77 Resp 14 B/P (MAP) 137/84 Pulse Ox 97 O2 Flow Rate 4.00 4.00 4.00 04/13/17 04/13/17 04/13/17 04/13/17 09:00 10:00 11:00 11:00 Temp 96.5 Pulse 69 68 75 Resp 11 12 12 B/P (MAP) 125/84 139/84 110/75 Pulse Ox 95 O2 Flow Rate 4.00 4.00 4.00 4.00 04/13/17 04/13/17 04/13/17 04/13/17 13:00 15:00 15:00 18:00 Temp 96.8 Pulse 69 69 82 Resp 13 19 B/P (MAP) 117/72 Pulse Ox 97 O2 Flow Rate 4.00 4.00 4.00 Capillary Refill : Less Than 3 Seconds Constitutional: appears stated age, No apparent distress, well-developed, well- nourished, other (NON-AMBULATORY) HEENT: PERRL, No discharge, hearing is well preserved, oral hygience is good, No ulceration, No xanthelasmas are seen Neck: No carotid bruit, carotid pulses are 2 + bilaterally Respiratory: No accessory muscle use, No respiratory distress, chest expansion is symmetric, chest is bilaterally symmetric, lungs clear to auscultation, other (fair to good air entry) Cardiovascular: irregularly irregular, No JVD, S1 and S2 Gastrointestinal: No tender, soft, round, audible bowel sounds, No spleenomegaly Genital/Rectal: other (indwelling urinary catheter with clear yellow urine) Extremities: No clubbing, No cyanosis, No significant edema Neurologic/Psychiatric: alert, oriented x 3, grossly intact Skin: No rash, No ulcerations Data Review Labs Laboratory Tests 04/13/17 00:42: White Blood Count 7.1, Red Blood Count 4.16L, Hemoglobin 13.4, Hematocrit 43, Mean Corpuscular Volume 104H, Mean Corpuscular Hemoglobin 32, Mean Corpuscular Hemoglobin Concent 31L, Red Cell Distribution Width 14.3, Platelet Count 155, Mean Platelet Volume 11.1H, Neutrophils (%) (Auto) 72, Lymphocytes (%) (Auto) 16 , Monocytes (%) (Auto) 8, Eosinophils (%) (Auto) 4, Basophils (%) (Auto) 0, Neutrophils # (Auto) 5.1, Lymphocytes # (Auto) 1.1, Monocytes # (Auto) 0.6, Eosinophils # (Auto) 0.3, Basophils # (Auto) 0.0, Prothrombin Time 14.8H, INR Comment 1.2, Activated Partial Thromboplast Time 34, Sodium Level 143, Potassium Level 4.2, Chloride Level 103, Carbon Dioxide Level 31, Anion Gap 9, Blood Urea Nitrogen 22H, Creatinine 1.77H, Estimat Glomerular Filtration Rate 29 , BUN/Creatinine Ratio 12, Glucose Level 159H, Calcium Level 9.9, Total Bilirubin 0.4, Aspartate Amino Transf (AST/SGOT) 10, Alanine Aminotransferase ( ALT/SGPT) 9, Alkaline Phosphatase 86, Total Creatine Kinase 29, Creatine Kinase MB 0.7, Troponin I < 0.30, B-Type Natriuretic Peptide 39.6, Total Protein 6.7, Albumin 3.4, Amylase Level 27, Lipase 10 04/13/17 04:28: Urine Color YELLOW, Urine Clarity VERY CLOUDYH, Urine pH 8, Urine Specific [place] 1.010L, Urine Protein 4+, Urine Glucose (UA) NEGATIVE, Urine Ketones NEGATIVE, Urine Nitrite POSITIVEH, Urine Bilirubin NEGATIVE, Urine Urobilinogen NORMAL, Urine Leukocyte Esterase 3+H, Urine RBC (Auto) 5+H, Urine RBC 5-10H, Urine WBC 2-5, Urine Crystals PRESENTH, Urine Triple Phosphate Crystals LARGEH, Urine Bacteria LARGEH, Urine Casts NONE, Urine Mucus NEGATIVE, Urine Culture Indicated YES 04/13/17 06:30: White Blood Count 7.2, Red Blood Count 3.96L, Hemoglobin 12.9, Hematocrit 41, Mean Corpuscular Volume 104H, Mean Corpuscular Hemoglobin 33, Mean Corpuscular Hemoglobin Concent 31L, Red Cell Distribution Width 14.0, Platelet Count 147, Mean Platelet Volume 10.8H, Neutrophils (%) (Auto) 77H, Lymphocytes (%) (Auto) 14, Monocytes (%) (Auto) 7, Eosinophils (%) (Auto) 3, Basophils (%) (Auto) 0, Neutrophils # (Auto) 5.5, Lymphocytes # (Auto) 1.0, Monocytes # (Auto) 0.5, Eosinophils # (Auto) 0.2, Basophils # (Auto) 0.0, Sodium Level 144, Potassium Level 4.7, Chloride Level 104, Carbon Dioxide Level 31, Anion Gap 9, Blood Urea Nitrogen 22H, Creatinine 1.71H, Estimat Glomerular Filtration Rate 30, BUN/ Creatinine Ratio 13, Glucose Level 124H, Calcium Level 9.5, Total Bilirubin 0.5 , Aspartate Amino Transf (AST/SGOT) 9, Alanine Aminotransferase (ALT/SGPT) 9, Alkaline Phosphatase 75, Troponin I < 0.30, Total Protein 6.3L, Albumin 3.3, Myoglobin 69.2 04/13/17 11:15: Glucometer 90 04/13/17 16:27: Glucometer 122H Microbiology 04/13/17 Urine Culture - Preliminary, Resulted Proteus Species Radiology NAME: RONA VILLANUEVA [facility] REC#: [id number] PT STATUS: ADM IN : 1955 PHYSICIAN: LUCY NICHOLS DO ADMIT DATE: 04/13/17/ICU Draft Date of Exam:04/13/17 CHEST 1 VIEW, AP/PA ONLY EXAM: CHEST 1 VIEW, AP/PA ONLY INDICATION: Chest pain. COMPARISON: Chest radiograph 03/03/2017. FINDINGS: No significant change. Cardiomegaly with mild pulmonary venous congestion. No definite pleural effusion or pneumothorax. Cardiac pacer. No acute osseous findings. IMPRESSION: No significant change. Cardiomegaly with mild pulmonary venous congestion. Dictated on workstation # [id number] Dict: 04/13/17 0802 Trans: 04/13/17 0805 AURE [id number] Interpreted by: CHUYITA PAULSON MD Electronically signed by: ECG Impression ECG Initial ECG Impression: Atrial Fibrillation A/P-Cardiology Assessment/Admission Diagnosis Chest pain of undetermined etiology with associated palpitations and dyspnea; no evidence of ACS Echocardiogram by Dr. Villarreal of February 2017: Technically difficult study. It was performed in atrial fibrillation. Left ventricular ejection fraction is normal, ejection fraction is 60%. There is mild concentric left ventricular hypertrophy with left atrial enlargement. There is no significant pulmonary hypertension. A pacemaker lead is seen in the right heart. There is suspicion of anterior hypokinesis in the short axis view; however, in the other views all the burris seem to have normal wall motion MPI by Dr. Villarreal of February 2017: Resting imaging is recommended. Large defect in the distal anterior, anterior apical, anterior septal wall. The ejection fraction is normal with no wall motion abnormality. A-fib (diagnosed February 2017 hospitalization) OAC with Eliquis for stroke prophylaxis Diastolic CHF H/O bradycardia - Biotronik PPM implanted in [place] in September 2014 (last interrogation approx 1 year ago) Obesity with BMI approx 53 Sleep apnea for which she has been non-compliant with CPAP tx CKD IV (previously followed with reimbursement spec in [place]) Hypothyroidism (replacement tx) COPD H/O tobaccoism - quit in the 's HTN H/O renal calculi with report of multiple lithotripsy H/O left hip fracture, left femur, left knee fracture which has lead to permanent w/c H/O cholecystectomy Permanent urinary catheter placement with frequent UTI's Discussion and Recomendations Complex management issue. She is currently not reporting any chest pain. She has multiple risk factors along with a previous abnormal MPI per Dr. Villarreal. Therefore cardiac cath should be considered. However, she is at considerable risk for contrast nephropathy d/t underlying CKD IV. We advise perioperative hydration in anticipation of cardiac cath. We advise continuation of ASA and OAC. UTI management is per medical services. Monitor lab closely. We have requested her records from [place]. We will call [facility] to interrogate the device tomorrow. We would like to thank the medical services for this consult. Further recommendations will be based on her hospital course. We advised compliance with sleep apnea treatment. This consult is being scribed by Rola Steele APRN on behalf of Dr. Blandon after discussion regarding plan of care. Clinical Quality Measures DVT/VTE Risk/Contraindication: Risk Factor Score Per Nursin RFS Level Per Nursing on Admit: 4+=Very High Physician Assessment Physician Assessment Lungs: fair to good air entry; diminished at the bases Cor: irreg I reviewed her records at this [facility] in detail A&R * As documented in our note above that I updated at the time of this dictation * Management is relatively complex due to her multiple CV and other comorbidities * I spoke with Dr Villarreal, her primary sales contractor, earlier today. He informed me that recent stress was abnormal and indicative of ischemia. The patient also reports a vague h/o DC in the past. Given these circumstances, she may need card cath, even though that the symptoms that she presents with are not classical of angina and there is on evidence of acute DC. The risk of contrast nephropathy, however, is much higher than usual because of baseline CKD stage 4. Accordingly, we have started hydration today to get her optimized for cardiac cath * I spoke with her in detail and discussed her CV issues with her * I discussed the pros and cons of card cath. In particular, I discussed her uaygqh-hiod-qznab risk of contrast nephropathy. She understands and will discuss this issue with Dr Villarreal tomorrow ANA MARIA STEELE April 13, 2017 14:05 SHARON BLANDON MD FACP FAC CCDS April 13, 2017 18:04
[2017-04-13] MEDS: NS IV 1000 ML 1,000 ML IV SCH (15:42)
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
[2017-04-13] MEDS: inSUlin ASPART (NovoLOG) 1 UNIT/0.01 ML (CHARGE PER UNIT) SC SCH (16:57)
[2017-04-13] MEDS: ALFUZOSIN HCL 10 MG TAB (UROXATRAL) PO SCH (18:10)
[2017-04-13] MEDS ORDERED: inSUlin DETERMIR 1 UNIT/0.01 ML (LEVEMIR) CHARGE PER UNIT SQ PRN (21:00)
[2017-04-14] VITALS (7 sets, daily range): BP systolic 115–144; BP diastolic 66–86
[2017-04-14] MEDS: NS IV 1000 ML 1,000 ML IV SCH ×3 (01:53→13:32)
[2017-04-14] MEDS: oxyCODONE/APAP 10/325MG (PERCOCET 10) TABLET PO PRN ×4 (03:59→21:46)
[2017-04-14 04:34] LABS: MEAN PLATELET VOLUME 11.4 FL (7.4-10.4); RED BLOOD COUNT 3.84 10^6/uL (4.35-5.85); RED CELL DISTRIBUTION WIDTH 14.1 % (10.0-14.5); WHITE BLOOD COUNT 5.6 10^3/uL (4.3-11.0)
[2017-04-14 05:06] LABS: ALBUMIN 3.3 G/DL (3.2-4.5); BILIRUBIN,TOTAL 0.5 MG/DL (0.1-1.0); CALCIUM 9.3 MG/DL (8.5-10.1); CREATININE SERUM 1.75 MG/DL (0.60-1.30); MAGNESIUM 2.2 MG/DL (1.8-2.4); POTASSIUM 4.6 MMOL/L (3.6-5.0); TOTAL PROTEIN 5.9 G/DL (6.4-8.2)
[2017-04-14 05:07] LABS: CHOLESTEROL 112 MG/DL (< 200); DIRECT LDL 52 MG/DL (1-129); TRIGLYCERIDES 106 MG/DL (<150); VLDL CHOLESTEROL 21 MG/DL (5-40)
[2017-04-14 05:29] LABS: THYROID STIMULATING HORMONE 1.28 UIU/ML (0.35-4.94)
[2017-04-14] MEDS: inSUlin ASPART (NovoLOG) 1 UNIT/0.01 ML (CHARGE PER UNIT) SC SCH ×3 (07:00→17:06)
[2017-04-14] MEDS: amLODIPine 2.5MG (NORVASC) TAB PO SCH (08:43)
[2017-04-14] MEDS: OXYBUTYNIN (DITROPAN) 5 MG TAB PO SCH (08:43)
[2017-04-14] MEDS: GABAPENTIN 400 MG (NEURONTIN) CAP PO SCH ×3 (08:43→21:45)
[2017-04-14] MEDS: SEVELAMER CARBONATE 800 MG TAB (RENVELA) NON-FORMULARY PO SCH ×3 (08:43→21:46)
[2017-04-14] MEDS: ASPIRIN 81 MG CHEW (CHILDREN'S ASA) PO SCH (08:43)
--- NOTE | 2017-04-14 08:43 | Cardiology Progress Note ---
Cardiology SOAP Progress Note Subjective: No chest pain today. she did have palpitations Objective: I&O/Vital Signs Vital Sign - Last 12Hours 04/13/17 04/13/17 04/14/17 04/14/17 21:00 23:00 00:00 00:00 Temp 96.5 Pulse 73 Resp 14 B/P (MAP) 119/86 Pulse Ox 94 95 O2 Flow Rate 3.00 3.00 3.00 3.00 04/14/17 04/14/17 04/14/17 04/14/17 01:00 04:00 04:00 07:00 Temp 96.6 Pulse 69 69 72 Resp 16 B/P (MAP) 132/80 Pulse Ox 94 O2 Flow Rate 3.00 3.00 04/14/17 08:08 O2 Flow Rate 3.00 Intake and Output 04/14/17 00:00 Intake Total 940 ml Output Total 2250 ml Balance -1310 ml Weight (Pounds): 358 Weight (Ounces): 9.6 Weight (Calculated Kilograms): 162.075001 Constitutional: appears stated age, No apparent distress, well-developed, well- nourished, other (NON-AMBULATORY) Respiratory: No accessory muscle use, No respiratory distress, chest expansion is symmetric, chest is bilaterally symmetric, lungs clear to auscultation, other (fair to good air entry) Cardiovascular: irregularly irregular, No JVD, S1 and S2 Gastrointestional: No tender, soft, round, audible bowel sounds, No spleenomegaly Genital/Rectal: other (indwelling urinary catheter with clear yellow urine) Extremities: No clubbing, No cyanosis, No significant edema Neurologic/Psychiatric: alert, oriented x 3, grossly intact Skin: No rash, No ulcerations Results/Procedures: Labs Laboratory Tests 04/13/17 11:15: Glucometer 90 04/13/17 16:27: Glucometer 122H 04/14/17 03:45: White Blood Count 5.6, Red Blood Count 3.84L, Hemoglobin 12.4, Hematocrit 40, Mean Corpuscular Volume 105H, Mean Corpuscular Hemoglobin 32, Mean Corpuscular Hemoglobin Concent 31L, Red Cell Distribution Width 14.1, Platelet Count 142, Mean Platelet Volume 11.4H, Sodium Level 145, Potassium Level 4.6, Chloride Level 106, Carbon Dioxide Level 30, Anion Gap 9, Blood Urea Nitrogen 20H, Creatinine 1.75H, Estimat Glomerular Filtration Rate 29, BUN/Creatinine Ratio 11 , Glucose Level 123H, Calcium Level 9.3, Magnesium Level 2.2, Total Bilirubin 0.5, Aspartate Amino Transf (AST/SGOT) 11, Alanine Aminotransferase (ALT/SGPT) 9 , Alkaline Phosphatase 65, Total Protein 5.9L, Albumin 3.3, Triglycerides Level 106, Cholesterol Level 112, LDL Cholesterol Direct 52, VLDL Cholesterol 21, HDL Cholesterol 34L, Thyroid Stimulating Hormone (TSH) 1.28 Microbiology 04/13/17 Urine Culture - Preliminary, Resulted Proteus Species Probable Klebsiella/Enterobact Gram Negative [place] A/P: Assessment/Dx: Recurrent chest pain, abnormal nuclear stress test. Atrial Fibrillation. 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 CKD. Possible UTI Plan: 1. Possible Unstable Angina - in presence of abnormal nuclear stress test. Cath is recommended. Right radial approach will be preferred. 2. Atrial Fibrillation - apixaban. 3. PPM - Biotronik; interrogation today. 4. CKD - aggressive hydration. Nephrology referral to Dr Dorian Villarreal as outpatient (office number [phone]). 5. UTI - defer to Dr Mckeon Thank you for your consultation. Please call me if you have any questions. Joesph Villarreal MD, FACP, FACC, FSCAI, FHRS, CCDS Interventional Cardiology Cardiac Electrophysiology Vascular Medicine and Endovascular Interventions Maria Luisa VILLARREAL MD April 14, 2017 8:43 am
[2017-04-14] MEDS: LORATADINE (CLARITIN) 10 MG TAB PO SCH (08:44)
[2017-04-14] MEDS: APIXABAN 5 MG (ELIQUIS) TABLET PO SCH ×2 (08:44→21:46)
[2017-04-14] MEDS: busPIRone 10 MG (BUSPAR) TAB PO SCH ×2 (08:44→21:45)
[2017-04-14] MEDS: LEVOTHYROXINE 100 MCG (LEVOTHROID) TAB PO SCH (08:44)
[2017-04-14] MEDS: SERTRALINE 50 MG (ZOLOFT) TABLET PO SCH (08:44)
[2017-04-14] MEDS: DOCUSATE SODIUM 100 MG (COLACE) CAP PO SCH (08:44)
[2017-04-14] MEDS ORDERED: LIDOCAINE 1% INJ 20 ML (XYLOCAINE) VIAL ONE (08:54)
[2017-04-14] MEDS ORDERED: HEParin (CATH LAB) 2,000 ML IV ONE (08:55)
[2017-04-14] MEDS ORDERED: ASPIRIN 325 MG (5 GR) TABLET PO SCH (09:00)
--- NOTE | 2017-04-14 11:58 | Progress Note (SOAP) ---
Subjective Subjective/Events-last exam Afebrile, no acute events. Plan for cardiac cath when Cardiology feels appropriate due to CKD, possibly later today, possibly tomorrow. She denies concerns this am. Date seen by provider: April 14, 2017 Time seen by provider: 10:10 Objective Exam Last Set of Vital Signs Vital Signs Date Time Temp Pulse Resp B/P (MAP) Pulse Ox O2 Delivery O2 Flow Rate FiO2 04/14/17 09:00 2.00 04/14/17 08:45 96.9 69 8 137/76 99 04/13/17 01:00 Nasal Cannula 94 Capillary Refill : Less Than 3 Seconds I&O Bad tableGeneral: Alert, No Acute Distress Neuro: Normal Speech Psych/Mental Status: Mental Status NL Results/Procedures Lab Laboratory Tests 04/13/17 16:27: Glucometer 122H 04/14/17 03:45: White Blood Count 5.6, Red Blood Count 3.84L, Hemoglobin 12.4, Hematocrit 40, Mean Corpuscular Volume 105H, Mean Corpuscular Hemoglobin 32, Mean Corpuscular Hemoglobin Concent 31L, Red Cell Distribution Width 14.1, Platelet Count 142, Mean Platelet Volume 11.4H, Sodium Level 145, Potassium Level 4.6, Chloride Level 106, Carbon Dioxide Level 30, Anion Gap 9, Blood Urea Nitrogen 20H, Creatinine 1.75H, Estimat Glomerular Filtration Rate 29, BUN/Creatinine Ratio 11 , Glucose Level 123H, Calcium Level 9.3, Magnesium Level 2.2, Total Bilirubin 0.5, Aspartate Amino Transf (AST/SGOT) 11, Alanine Aminotransferase (ALT/SGPT) 9 , Alkaline Phosphatase 65, Total Protein 5.9L, Albumin 3.3, Triglycerides Level 106, Cholesterol Level 112, LDL Cholesterol Direct 52, VLDL Cholesterol 21, HDL Cholesterol 34L, Thyroid Stimulating Hormone (TSH) 1.28 Microbiology 04/13/17 Urine Culture - Preliminary, Resulted Proteus Species Probable Klebsiella/Enterobact Gram Negative [place] Radiology NAME: RONA MCDONALD MED REC#: [id number] PT STATUS: ADM IN : 1955 PHYSICIAN: LUCY NICHOLS DO ADMIT DATE: 04/13/17/ICU Draft Date of Exam:04/13/17 CHEST 1 VIEW, AP/PA ONLY EXAM: CHEST 1 VIEW, AP/PA ONLY INDICATION: Chest pain. COMPARISON: Chest radiograph 03/03/2017. FINDINGS: No significant change. Cardiomegaly with mild pulmonary venous congestion. No definite pleural effusion or pneumothorax. Cardiac pacer. No acute osseous findings. IMPRESSION: No significant change. Cardiomegaly with mild pulmonary venous congestion. Dictated on workstation # [id number] Dict: 04/13/17 0802 Trans: 04/13/17 0805 AURE [id number] Interpreted by: CHUYITA PAULSON MD Electronically signed by: Assessment/Plan Assessment/Plan Admission Dx 1. Chest pain 2. Possible UTI with chronic indwelling hayes due to immobility and skin lesions 3. Chronic heart issues: Atrial fibrillation, diastolic dysfunction and h/o bradycardia s/p pacemaker placement 4. Hypothyroidism 5. HTN 6. Anxiety/depression 7. T2DM 8. CKD Plan 1. Chest pain- troponin negative -Cardiology consulted, h/o abnormal stress testing, plan for cath 2. Possible UTI with chronic indwelling hayes due to immobility and skin lesions -Awaiting culture, with the chronic indwelling hayes has multiple bacteria grown multiple times with significant resistances, discussed with her that likely the best thing to do will be to refer her to ID for discussion as to differentiating between colonization and infection- no systemic signs of infection currently 3. Chronic heart issues: Atrial fibrillation, diastolic dysfunction and h/o bradycardia s/p pacemaker placement -Appreciate Cardiology recommendations 4. Hypothyroidism- resume home levothyroxine 5. HTN- resume home meds 6. Anxiety/depression- resume home meds 7. T2DM- diabetic diet, sliding scale insulin 8. CKD- stable, renally dose meds 9. Hypoxia- reports if she still needs oxygen, she will need orders for new concentrator. Will have RT check for oxygen qualification after cardiac cath DVT ppx- on apixaban Diagnosis/Problems: Clinical Quality Measures DVT/VTE Risk/Contraindication: Risk Factor Score Per Nursin RFS Level Per Nursing on Admit: 4+=Very High SANDY PATEL MD April 14, 2017 11:58 am
[2017-04-14] MEDS ORDERED: PATIENT MAY USE OWN MED,SINGLE MED PO SCH (17:45)
[2017-04-14] MEDS: VICTOZA 18 MG/3 ML SQ SCH (18:34)
[2017-04-14] MEDS: ALFUZOSIN HCL 10 MG TAB (UROXATRAL) PO SCH (18:35)
[2017-04-15] VITALS: BP 113/74
[2017-04-15] MEDS: NS IV 1000 ML 1,000 ML IV SCH ×2 (01:28→16:35)
[2017-04-15 04:00] VITALS: BP 104/64
[2017-04-15] MEDS: oxyCODONE/APAP 10/325MG (PERCOCET 10) TABLET PO PRN ×2 (04:26→16:35)
[2017-04-15] MEDS: inSUlin ASPART (NovoLOG) 1 UNIT/0.01 ML (CHARGE PER UNIT) SC SCH ×3 (07:00→18:19)
[2017-04-15 08:00] VITALS: BP 121/76
[2017-04-15] MEDS: VICTOZA 18 MG/3 ML SQ SCH (09:00)
[2017-04-15] MEDS: SEVELAMER CARBONATE 800 MG TAB (RENVELA) NON-FORMULARY PO SCH ×3 (09:10→20:47)
[2017-04-15] MEDS: OXYBUTYNIN (DITROPAN) 5 MG TAB PO SCH (09:10)
[2017-04-15] MEDS: LORATADINE (CLARITIN) 10 MG TAB PO SCH (09:10)
[2017-04-15] MEDS: APIXABAN 5 MG (ELIQUIS) TABLET PO SCH ×2 (09:10→20:46)
[2017-04-15] MEDS: GABAPENTIN 400 MG (NEURONTIN) CAP PO SCH ×3 (09:10→20:46)
[2017-04-15] MEDS: SERTRALINE 50 MG (ZOLOFT) TABLET PO SCH (09:10)
[2017-04-15] MEDS: amLODIPine 2.5MG (NORVASC) TAB PO SCH (09:10)
[2017-04-15] MEDS: ASPIRIN 81 MG CHEW (CHILDREN'S ASA) PO SCH (09:10)
[2017-04-15] MEDS: busPIRone 10 MG (BUSPAR) TAB PO SCH ×2 (09:10→20:46)
[2017-04-15] MEDS: DOCUSATE SODIUM 100 MG (COLACE) CAP PO SCH (09:10)
[2017-04-15] MEDS: LEVOTHYROXINE 100 MCG (LEVOTHROID) TAB PO SCH (09:10)
[2017-04-15] MEDS ORDERED: MIDAZOLAM 5 MG/5 ML (VERSED) VIAL ONE (10:36)
[2017-04-15] MEDS ORDERED: fentaNYL INJECTION 100 MCG/2 ML AMP ONE (10:36)
[2017-04-15] MEDS ORDERED: diphenhydrAMINE 50 MG/ML INJ (BENADRYL) ONE (10:36)
[2017-04-15] MEDS ORDERED: NITROGLYCERIN DRIP 25 MG/D5W 250 ML IV ONE (11:07)
[2017-04-15] MEDS ORDERED: HEParin 1000 UNIT/ML (10ML VIAL) FOR BOLUS ONE (11:07)
[2017-04-15] MEDS ORDERED: VERAPAMIL 5 MG/2 ML (CALAN) VIAL IV ONE (11:07)
[2017-04-15] MEDS ORDERED: NS IV 1000 ML 1,000 ML ONE (11:45)
[2017-04-15] MEDS ORDERED: ADENOSINE 3 MG/1 ML (ADENOSCAN) 30ML VIAL IV ONE ×3 (12:09→12:33)
--- NOTE | 2017-04-15 13:00 | Cardiac Procedure Note-CS/ASA ---
Pre-Procedure Note Pre-Op Procedure Note H&P Reviewed The H&P was reviewed, patient examined and no changes noted. Date H&P Reviewed: April 15, 2017 Time H&P Reviewed: 12:00 Conscious Sedation Pre-Proced Time Reviewed: 12:00 ASA Class: 3 Airway Mallampati Classification: (hoopa appropriate class) I. II. III, IV Lungs Heart ASA score ASA 1: a normal healthy patient ASA 2: a patient with a mild systemic disease (mid diabetes, controlled hypertension, obesity ASA 3: a patient with a severe systemic disease that limits activity (angina , COPD, prior Myocardial infarction) ASA 4: a patient with an incapacitating disease that is a constant threat to life (CHF, renal failure) ASA 5: a moribund patient not expected to survive 24 hrs. (ruptured aneurysm) ASA 6: a declared brain patient whose organs are being harvested. For emergent operations, add the letter E after the classification Grade 1 Sedation Plan: Analgesia, Amnesia, Plan communicated to team members, Discussed options with patient/fam, Discussed risks with patient/fam Note The patient is an appropriate candidate to undergo the planned procedure, sedation, and anesthesia. The patient immediately re-assessed prior to indication. Maria Luisa SINGH MD April 15, 2017 1:00 pm
--- NOTE | 2017-04-15 13:03 | Cardiology Post Procedure Note ---
Post-Procedure Note Post-Op Procedure Note Procedure Start Date: April 15, 2017 Procedure Start Time: 12:00 Name of Procedure: coronary angiography, left heart catheterization Findings/Procedure Note possible mild to moderate ostial left main disease, not significant by FFR. Lowest FFR 0.96. It also could be angulation at the origin of the left main which gives an impression of stenosis. Patent LAD and left circumflex artery. Patent RCA. Normal LV function. Anesthesia Type: Conscious Sedation Estimated blood loss (mL): 10 mL Contrast Amount: 91 mL Post-Operative Diagnosis Post-operative diagnosis: mild ostial left main disease. No other coronary artery disease noted Maria Luisa SINGH MD April 15, 2017 1:02 pm
[2017-04-15 13:15] VITALS: BP 135/75
--- NOTE | 2017-04-15 14:42 | CARDIAC CATHETERIZATION ---
DATE OF SERVICE: 04/15/2017 CORONARY ANGIOGRAPHY AND LEFT HEART CATHETERIZATION INDICATION: Prolonged chest pain, recent abnormal nuclear stress test. PREOPERATIVE DIAGNOSES: Prolonged chest pain, recent abnormal nuclear stress test. POSTOPERATIVE DIAGNOSES: Mild left main disease, no significant coronary artery disease. HISTORY: The patient is a 61-year-old lady with morbid obesity. She presented previously with complaints of chest discomfort and shortness of breath. We had performed a nuclear stress test which showed mild to moderate ischemia in the anterior territory. She also has chronic UTI. She presented again with recurrent chest pain episode the day before yesterday. She also has significant CKD. Coronary angiography was recommended. PROCEDURES PERFORMED: 1. Coronary angiography. 2. Left heart catheterization. COMPLICATIONS: None. SPECIMENS REMOVED: None. ESTIMATED BLOOD LOSS: 10 mL. ANTICOAGULATION: IV heparin. CONTRAST: 91 mL of Omnipaque. FLUOROSCOPY TIME: 13.1 minutes. FLUOROSCOPY DOSE: 1356 mGy. PROCEDURE DETAILS: The patient was brought to the laborer heading after informed consent was taken. All the risks and complications were explained. She was draped and prepped in the usual sterile fashion. Access was gained in the right radial artery with a 6-Filipino sheath. Coronary angiography was performed with a Evaristo catheter. FINDINGS: 1. Left main: Mild to moderate ostial left main disease noted. However, this could be due to an acute angulation of the left main which gives impression of pseudo stenosis. 2. LAD: Patent. 3. Left circumflex artery: Patent. 4. RCA: Patent. 5. Left heart catheterization: LV pressure 85/3 mmHg. LVEDP 14 mmHg. Aortic pressure 92/61 mmHg. Normal LV function with no significant wall motion abnormalities. No gradient across the aortic valve. RECOMMENDATION: 1. FFR to the left main is recommended. 2. FFR details: We used the same Evaristo catheter. IV heparin for anticoagulation, pressure wire was used as a guide wire. Please note that the baseline FFR was 1.00. We then crossed the lesion very easily into the left circumflex artery with a pressure wire. Adenosine 140 mcg/kg/min was given for 2.5 minutes. Lowest FFR was 0.96. The wire was taken out and post FFR angiography revealed no complication. Since the FFR was normal, no PCI is recommended. It is likely that the stenosis is due to an acute angulation of the ostium of the left main which gives the impression of stenosis. IMPRESSION AND CONCLUSION: 1. No significant coronary artery disease. 2. Continue primary prevention measures. 3. Chronic kidney disease, I have recommended nephrology referral. Job ID: [id number] DocumentID: [id number] Dictated Date: 04/15/2017 13:11:55 Software Test Technician Date: 04/15/2017 14:11:30 Dictated By: MARLENA SINGH MD MTDD
[2017-04-15 16:00] VITALS: BP 138/78
[2017-04-15] MEDS: ALFUZOSIN HCL 10 MG TAB (UROXATRAL) PO SCH (18:18)
[2017-04-15 20:00] VITALS: BP 123/69
--- NOTE | 2017-04-15 21:03 | Progress Note (SOAP) ---
Subjective Subjective/Events-last exam Afebrile, no acute events. Plan for cath this morning. Date seen by provider: April 15, 2017 Time seen by provider: 10:00 Objective Exam Last Set of Vital Signs Vital Signs Date Time Temp Pulse Resp B/P (MAP) Pulse Ox O2 Delivery O2 Flow Rate FiO2 04/15/17 20:00 98.0 74 16 123/69 97 2.00 04/13/17 01:00 Nasal Cannula 94 Capillary Refill : Less Than 3 Seconds I&O Intake and Output 04/15/17 00:00 Intake Total 2930 ml Output Total 2550 ml Balance 380 ml Intake Oral 1930 ml IV Total 1000 ml Output Urine Total 2550 ml General: Alert, No Acute Distress Psych/Mental Status: Mental Status NL Results/Procedures Lab Laboratory Tests 04/14/17 21:20: Glucometer 145H 04/15/17 06:42: Glucometer 122H 04/15/17 18:19: Glucometer 118H 04/15/17 20:45: Glucometer 150H Microbiology 04/13/17 Urine Culture - Preliminary, Resulted Pseudomonas Aeruginosa Proteus Mirabilis Radiology NAME: RONA MCDONALD MED REC#: [id number] PT STATUS: ADM IN : 1955 PHYSICIAN: LUCY NICHOLS DO ADMIT DATE: 04/13/17/ICU Draft Date of Exam:04/13/17 CHEST 1 VIEW, AP/PA ONLY EXAM: CHEST 1 VIEW, AP/PA ONLY INDICATION: Chest pain. COMPARISON: Chest radiograph 03/03/2017. FINDINGS: No significant change. Cardiomegaly with mild pulmonary venous congestion. No definite pleural effusion or pneumothorax. Cardiac pacer. No acute osseous findings. IMPRESSION: No significant change. Cardiomegaly with mild pulmonary venous congestion. Dictated on workstation # [id number] Dict: 04/13/17 0802 Trans: 04/13/17 0805 AURE [id number] Interpreted by: CHUYITA PAULSON MD Electronically signed by: Assessment/Plan Assessment/Plan Admission Dx 1. Chest pain 2. Possible UTI with chronic indwelling hayes due to immobility and skin lesions 3. Chronic heart issues: Atrial fibrillation, diastolic dysfunction and h/o bradycardia s/p pacemaker placement 4. Hypothyroidism 5. HTN 6. Anxiety/depression 7. T2DM 8. CKD Plan 1. Chest pain- troponin negative -Cardiology consulted, h/o abnormal stress testing, plan for cath 2. Possible UTI with chronic indwelling hayes due to immobility and skin lesions -Awaiting culture, with the chronic indwelling hayes has multiple bacteria grown multiple times with significant resistances, discussed with her that likely the best thing to do will be to refer her to ID for discussion as to differentiating between colonization and infection- no systemic signs of infection currently 3. Chronic heart issues: Atrial fibrillation, diastolic dysfunction and h/o bradycardia s/p pacemaker placement -Appreciate Cardiology recommendations 4. Hypothyroidism- resume home levothyroxine 5. HTN- resume home meds 6. Anxiety/depression- resume home meds 7. T2DM- diabetic diet, sliding scale insulin 8. CKD- stable, renally dose meds 9. Hypoxia- reports if she still needs oxygen, she will need orders for new concentrator. Will have RT check for oxygen qualification after cardiac cath DVT ppx- on apixaban Diagnosis/Problems: Clinical Quality Measures DVT/VTE Risk/Contraindication: Risk Factor Score Per Nursin RFS Level Per Nursing on Admit: 4+=Very High SANDY PATEL MD April 15, 2017 9:03 pm
[2017-04-16] VITALS: BP 129/96
[2017-04-16] MEDS: oxyCODONE/APAP 10/325MG (PERCOCET 10) TABLET PO PRN ×3 (00:27→14:49)
[2017-04-16] MEDS: NS IV 1000 ML 1,000 ML IV SCH ×2 (02:54→12:45)
[2017-04-16 04:00] VITALS: BP 121/68
[2017-04-16] MEDS: inSUlin ASPART (NovoLOG) 1 UNIT/0.01 ML (CHARGE PER UNIT) SC SCH ×2 (06:54→12:00)
[2017-04-16 08:00] VITALS: BP 128/78
[2017-04-16] MEDS: DOCUSATE SODIUM 100 MG (COLACE) CAP PO SCH (08:11)
[2017-04-16] MEDS: SERTRALINE 50 MG (ZOLOFT) TABLET PO SCH (08:11)
[2017-04-16] MEDS: LORATADINE (CLARITIN) 10 MG TAB PO SCH (08:11)
[2017-04-16] MEDS: APIXABAN 5 MG (ELIQUIS) TABLET PO SCH (08:11)
[2017-04-16] MEDS: amLODIPine 2.5MG (NORVASC) TAB PO SCH (08:11)
[2017-04-16] MEDS: OXYBUTYNIN (DITROPAN) 5 MG TAB PO SCH (08:11)
[2017-04-16] MEDS: busPIRone 10 MG (BUSPAR) TAB PO SCH (08:11)
[2017-04-16] MEDS: GABAPENTIN 400 MG (NEURONTIN) CAP PO SCH ×2 (08:11→14:49)
[2017-04-16] MEDS: SEVELAMER CARBONATE 800 MG TAB (RENVELA) NON-FORMULARY PO SCH ×2 (08:11→14:49)
[2017-04-16] MEDS: LEVOTHYROXINE 100 MCG (LEVOTHROID) TAB PO SCH (08:11)
[2017-04-16] MEDS: ASPIRIN 81 MG CHEW (CHILDREN'S ASA) PO SCH (08:12)
[2017-04-16] MEDS: VICTOZA 18 MG/3 ML SQ SCH (08:12)
--- NOTE | 2017-04-16 09:48 | Cardiology Progress Note ---
Cardiology SOAP Progress Note Subjective: no cardiac symptoms Objective: I&O/Vital Signs Vital Sign - Last 12Hours 04/16/17 04/16/17 04/16/17 04/16/17 00:00 00:00 01:00 04:00 Temp 97.6 Pulse 76 81 Resp 16 B/P (MAP) 129/96 Pulse Ox 97 O2 Flow Rate 2.00 2.00 2.00 04/16/17 04/16/17 04/16/17 04:00 06:35 07:00 Temp 97.0 Pulse 76 69 Resp 16 B/P (MAP) 121/68 Pulse Ox 97 O2 Flow Rate 2.00 2.00 Intake and Output 04/16/17 00:00 Intake Total 400 ml Output Total 1350 ml Balance -950 ml Weight (Pounds): 360 Weight (Ounces): 9.6 Weight (Calculated Kilograms): [phone] Constitutional: appears stated age, No apparent distress, well-developed, well- nourished, other (NON-AMBULATORY) Respiratory: No accessory muscle use, No respiratory distress, chest expansion is symmetric, chest is bilaterally symmetric, lungs clear to auscultation, other (fair to good air entry) Cardiovascular: irregularly irregular, No JVD, S1 and S2 Gastrointestional: No tender, soft, round, audible bowel sounds, No spleenomegaly Genital/Rectal: other (indwelling urinary catheter with clear yellow urine) Extremities: No clubbing, No cyanosis, No significant edema Neurologic/Psychiatric: alert, oriented x 3, grossly intact Skin: No rash, No ulcerations Results/Procedures: Labs Laboratory Tests 04/15/17 18:19: Glucometer 118H 04/15/17 20:45: Glucometer 150H 04/16/17 06:36: Glucometer 99 Microbiology 04/13/17 Urine Culture - Preliminary, Resulted Pseudomonas Aeruginosa Proteus Mirabilis A/P: Assessment/Dx: Recurrent chest pain, abnormal nuclear stress test. Atrial Fibrillation. 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 CKD. Possible UTI Plan: 1. chest pain: Abnormal nuclear stress test. Coronary angiography performed which showed possible mild to moderate left main disease. FFR was negative. The stenosis could be pseudo-stenosis secondary to call the left main angulation was. No intervention required 2. Atrial Fibrillation - apixaban. 3. PPM - 4. CKD - aggressive hydration. Nephrology referral to Dr Dorian Villarreal as outpatient (office number [phone]). 5. UTI - defer to Dr Mckeon I will sign off today and will be happy to see her as an outpatient. Thank you for your consultation. Please call me if you have any questions. Joesph Villarreal MD, FACP, FACC, FSCAI, FHRS, CCDS Interventional Cardiology Cardiac Electrophysiology Vascular Medicine and Endovascular Interventions Maria Luisa VILLARREAL MD April 16, 2017 9:48 am
--- NOTE | 2017-04-16 10:53 | Discharge Instructions ---
Discharge [facility] Discharge Medications Continued Medications: Amlodipine Besylate (Amlodipine Besylate) 2.5 Mg Tablet 2.5 MG PO DAILY, TAB Apixaban (Eliquis) 5 Mg Tablet 5 MG PO BID, TAB Ascorbate Calcium (Vitamin C) 500 Mg Tablet 500 MG PO DAILY, TAB Buspirone HCl (Buspirone HCl) 10 Mg Tablet 10 MG PO BID, TAB Docusate Sodium (Colace) 100 Mg Capsule 100 MG PO DAILY, CAP Fluticasone Propionate (Fluticasone Propionate) 16 Gm [place].susp 2 SPRAYS NS BID, EA Gabapentin (Gabapentin) 400 Mg Capsule 400 MG PO TID, CAP Evelyn Root (Evelyn) 250 Mg Capsule 250 MG PO Q12H PRN for STOMACH UPSET, CAP Insulin Aspart (Novolog Flexpen) 300 Units/3 Ml Solution SQ SLIDING/SCALE PRN for HIGH BLOOD SUGAR, EA USE WITH MEALS PER SLIDING SCALE 150-200 = 1 UNIT 201-250 = 2 UNITS 251-300 = 3 UNITS OVER 300 = CALL MD Insulin Detemir (Levemir Flextouch) 100 Unit/1 Ml Insuln.pen 10 UNIT SQ HS PRN for HIGH BLOOD SUGAR, EA Levothyroxine Sodium (Levothyroxine Sodium) 100 Mcg Tablet 100 MCG PO DAILY, TAB Lidocaine (Lidocaine) 5 Gm Cream..g. TOP TID PRN for SKIN SORE PAIN, EA Liraglutide (Victoza 2-Bj) 0.6 Mg/0.1 Ml Pen.injctr 1.8 MG SQ DAILY, VIAL Loratadine (Loratadine) 10 Mg Tablet 10 MG PO DAILY, TAB Miconazole Nitrate (Jaret Antifungal) 142 Gm Cream..g. TP DAILY PRN for RASH, TUBE Nystatin (Nystop) 60 Gm Powder TOP BID, EA Nystatin/Triamcinolone (Nystatin-Triamcinolone Ointm) 15 Gm Oint TOP BID PRN for YEAST, EA Oxybutynin Chloride (Oxybutynin Chloride ER) 15 Mg Tab.er.24 15 MG PO HS, TAB Oxycodone HCl/Acetaminophen (Oxycodone-Acetaminophen 10-325) 1 Each Tablet 1 TAB PO QID, TAB Polyethylene Glycol 3350 (Miralax) 119 Gm Powder 17 GM PO DAILY PRN for CONSTIPATION-2ND LINE, EA Sertraline HCl (Zoloft) 50 Mg Tablet 50 MG PO DAILY, TAB Sevelamer Carbonate (Renvela) 800 Mg Tablet 800 MG PO TID, TAB Tamsulosin HCl (Flomax) 0.4 Mg Cap 0.4 MG PO DAILY, CAP Patient Instructions Goal/Follow Up Appt: Follow up with Dr. Saez on 04/20 at 1:40 pm. Return to The Hospital For: Fever, inability to keep oxygen saturation above 90% Activity & Diet Discharge Diet: ADA Diet Activity as Tolerated: Yes Copy Copies To 1: ALIREZA Chase BETHANY N MD April 16, 2017 10:53 am
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
[2017-04-16] MEDS ORDERED: ASPI-999 PO (11:11)
[2017-04-16 12:00] VITALS: BP 139/77
[2017-04-16 15:55] VITALS: BP 139/77
== END 2017-04-16 15:55 | disposition home health service (06) ==
LOC: EDUNIT# 00:38 → ER 00:41 → ICU 01:30 → UNDOADMOB 01:30 → INTOOBSV 01:30 → ICU 03:01 → CATH 03:01 → UNDODISOB 04-16 15:55 → CATH 04-16 15:55
PROVIDERS: ATTEND Internal Medicine Cardiovascular Disease
DX: R07.9 Chest pain, unspecified (principal); I48.2 Chronic atrial fibrillation; E66.01 Morbid (severe) obesity due to excess calories; I13.0 Hypertensive heart and chronic kidney disease with heart failure and stage 1 through stage 4 chronic kidney disease, or unspecified chronic kidney disease; I50.9 Heart failure, unspecified; N18.9 Chronic kidney disease, unspecified; Z68.43 Body mass index [BMI] 50.0-59.9, adult; E11.40 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 with diabetic neuropathy, unspecified; J44.9 Chronic obstructive pulmonary disease, unspecified; J45.909 Unspecified asthma, uncomplicated; I25.2 Old myocardial infarction; E03.9 Hypothyroidism, unspecified; M19.91 Primary osteoarthritis, unspecified site; F32.9 Major depressive disorder, single episode, unspecified; K21.9 Gastro-esophageal reflux disease without esophagitis; R52 Pain, unspecified; Z95.0 Presence of cardiac pacemaker; Z87.891 Personal history of nicotine dependence; Z99.81 Dependence on supplemental oxygen; Z79.84 Long term (current) use of oral hypoglycemic drugs; Z79.01 Long term (current) use of anticoagulants; Z74.01 Bed confinement status; Z96.642 Presence of left artificial hip joint
CPT/HCPCS: 36415; 71010; 80053; 80061; 81000; 82150; 82550; 82553; 82962; 83690; 83735; 83874; 83880; 84443; 84484; 85025; 85027; 85610; 85730; 87077; 87088; 87186; 93005; 93041; 93458; 93571; 94761; G0378

== ENCOUNTER → 2017-08-24 | Outpatient (CLI) | payer OTHER ==
[~2017-08-24] MED LIST changes: +APIX5TAB PO; +ASCO-262 PO; +ASPI-999 PO; +FLUT16SP22 NS; +GABA-490 PO; +LIDO5CRE20 TOP; +LIRA0.6P SQ; +NSTR15O TOP; +NYST60PO TOP; +SERT50TA2 PO; +TAMS0.4C98 PO
== END ==
LOC: HH 17:45
PROVIDERS: ATTEND Internal Medicine
DX: E03.9 Hypothyroidism, unspecified (principal)
CPT/HCPCS: 84443

== ENCOUNTER 2017-10-04 16:54 | Inpatient (IN) | payer MEDICARE ==
[~2017-10-04] VITALS: Ht 172.7 cm; Wt 182.4 kg
[~2017-10-04 16:54] MED LIST changes: +ASPI-983 PO; +DILT120C53 PO; +LEVO125T6 PO; +LIRA0.6P3 SC; +NYST15OI13 TOP; +ONDA8TAB12 PO; +SEVE800T13 PO; +SILV25CR21 TOP; +TR1O15 TOP; +VORT10TA PO; +[UNRECOGNIZED DRUG - CODE] OU
[2017-10-04] MEDS ORDERED: RT-ALBUTEROL SULF 2.5 MG/3 ML PRE-MIX VIAL ONE (17:01)
[2017-10-04] MEDS ORDERED: RT-ALBUTEROL/IPRATROPIUM 3 ML (DUONEB) VIAL ONE (17:02)
[2017-10-04] MEDS ORDERED: fentaNYL INJECTION 100 MCG/2 ML AMP IVP ONE (17:15)
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
[2017-10-04 17:28] LABS: BASOPHILS % (AUTO) 0 % (0-10); EOSINOPHILS # (AUTO) 0.2 10^3/uL (0.0-0.3); EOSINOPHILS % (AUTO) 3 % (0-10); LYMPHOCYTES # (AUTO) 0.7 X 10^3 (1.0-4.0); LYMPHOCYTES % (AUTO) 10 % (12-44); MEAN CORPUSCULAR HEMOGLOBIN 32 PG (25-34); MEAN CORPUSCULAR HGB CONC 30 G/DL (32-36); MEAN CORPUSCULAR VOLUME 106 FL (80-99); MEAN PLATELET VOLUME 10.8 FL (7.4-10.4); MONOCYTES # (AUTO) 0.4 X 10^3 (0.0-1.0); MONOCYTES % (AUTO) 6 % (0-12); NEUTROPHILS # (AUTO) 5.3 X 10^3 (1.8-7.8); NEUTROPHILS % (AUTO) 80 % (42-75); PLATELET COUNT 122 10^3/uL (130-400); RED BLOOD COUNT 3.58 10^6/uL (4.35-5.85); RED CELL DISTRIBUTION WIDTH 13.7 % (10.0-14.5); WHITE BLOOD COUNT 6.5 10^3/uL (4.3-11.0)
[2017-10-04] MEDS ORDERED: RT-ALBUTEROL SULF 2.5 MG/3 ML PRE-MIX VIAL IH SCH (17:30)
[2017-10-04] MEDS ORDERED: RT-ALBUTEROL/IPRATROPIUM 3 ML (DUONEB) VIAL INH ONE (17:30)
[2017-10-04 17:34] LABS: INR 1.1 (0.8-1.4); PROTHROMBIN TIME PATIENT 14.1 SEC (12.2-14.7)
[2017-10-04 17:35] LABS: BILIRUBIN,URINE NEGATIVE (NEGATIVE); KETONES,URINE NEGATIVE (NEGATIVE); LEUKOCYTE ESTERASE ,URINE 3+ (NEGATIVE); NITRITE,URINE NEGATIVE (NEGATIVE); PH,URINE 7 (5-9); PROTEIN,URINE 1+ (NEGATIVE); UROBILINOGEN,URINE NORMAL (NORMAL)
[2017-10-04 17:44] LABS: ABG BASE EXCESS 10.2 MMOL/L (-2.5-2.5); ABG HCO3 37 MMOL/L (23-27); ABG OXYGEN SATURATION 92 % (94-100); ABG PO2 66 MMHG (79-93); ABG TCO2 38.7 MMOL/L (21.0-31.0)
[2017-10-04 17:45] LABS: ABG PCO2 74 MMHG (35-45); ABG PH 7.31 (7.37-7.43); ALLENS TEST YES-POS
[2017-10-04 17:45] LABS: ALANINE AMINOTRANSFERASE 12 U/L (0-55); ALBUMIN 3.5 GM/DL (3.2-4.5); ANION GAP 7 MMOL/L (5-14); ASPARTATE AMINO TRANSFERASE 10 U/L (5-34); BILIRUBIN,TOTAL 0.4 MG/DL (0.1-1.0); BLOOD UREA NITROGEN 24 MG/DL (7-18); BUN/CREATININE RATIO 17; CALCIUM 9.5 MG/DL (8.5-10.1); CARBON DIOXIDE 32 MMOL/L (21-32); CHLORIDE 101 MMOL/L (98-107); CREATININE SERUM 1.43 MG/DL (0.60-1.30); GFR ESTIMATED 37; GLUCOSE 166 MG/DL (70-105); LIPASE 5 U/L (8-78); POTASSIUM 4.6 MMOL/L (3.6-5.0); SODIUM 140 MMOL/L (135-145); TOTAL PROTEIN 6.2 GM/DL (6.4-8.2)
[2017-10-04 17:45] LABS: WBC,URINE >100 /HPF
[2017-10-04 17:46] LABS: PATIENT TEMP 98.4
[2017-10-04 17:51] LABS: TROPONIN I < 0.30 NG/ML (<0.30)
[2017-10-04 17:58] VITALS: BP 128/81
[2017-10-04] MEDS ORDERED: CEFEPIME INJECTION 2,000 MG in NS (IVPB) 50 ML IV ONE (18:00)
--- NOTE | 2017-10-04 18:02 | Diagnostic Imaging Report ---
INDICATION: Hypoxia. COMPARISON: 09/16/2017. FINDINGS: Examination is limited by patient's large body habitus. Allowing for this, marked cardiomegaly is unchanged. There appears to be chronic pulmonary vascular redistribution. No definitive pleural effusion. Lung bases are obscured by patient's body habitus and portable technique. Mid and upper lung zones are clear. Stable left pectoral transvenous pacemaker. IMPRESSION: 1. Examination is limited by portable technique and patient body habitus. 2. Unchanged marked cardiomegaly with chronic pulmonary venous hypertension. No shelley pulmonary edema or pleural effusion. Dictated by: Dictated on workstation # [id number]
--- NOTE | 2017-10-04 18:04 | Diagnostic Imaging Report ---
INDICATION: Epigastric pain. TECHNIQUE: Two supine views of the abdomen, 5:45 a.m. CORRELATION STUDY: None. FINDINGS: Examination is markedly compromised. There is a large portion of the abdomen which is not included on this examination. Visualized gastrointestinal tract demonstrates what appears to be some gas distention in the upper abdomen which could be reflective of transverse colon or stomach. There does appear to be at least mild severity fecal retention. A few gas-filled loops of small bowel are noted. It is noted that there is a disproportionate imaging over the right abdomen with bowel extending towards the right. Possibility of hernia would be difficult to exclude. There is very limited partial visualization of the left hip arthroplasty hardware. IMPRESSION: 1. Markedly limited imaging of the abdomen. Visualized portions do demonstrate prominent gas-filled loops of bowel which are in nonspecific pattern. Dictated by: Dictated on workstation # [id number]
[2017-10-04] MEDS ORDERED: methylPREDNISolone 125 MG (Solu-MEDROL) VIAL IVP ONE (18:45)
--- OUTSIDE RECORDS SUMMARY | 2017-10-04 19:38 | XMS REPORT ---
Author Author AMANDA SANDY [facility] Address [address] [place] [address] Care Team Providers Care Volumetric Weigher Name Role Phone AMANDAMADIE PHANHANY Unavailable PROBLEMS Type Condition ICD9-CM Code [id number] Code Onset Dates Condition Status SNOMED Code Problem Obstructive sleep apnea syndrome G47.33 Active 96916601 Problem Cataract H26.9 Active 280677077 Problem Gastroesophageal reflux disease without esophagitis K21.9 Active 052867269 Problem Decreased renal function N28.9 Active 62487663 Problem Ulcer L98.499 Active 923251596 Problem Perennial allergic rhinitis, unspecified allergic rhinitis trigger J30.89 Active 981252128 Problem Other chronic pain G89.29 Active 30414761 Problem Atrial fibrillation, unspecified type I48.91 Active 37449704 Problem Restless leg syndrome G25.81 Active 69993659 Problem Morbid obesity due to excess calories E66.01 Active 548739995 Problem Chronic kidney disease (CKD), unspecified stage N18.9 Active 981571860 Problem 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, unspecified residential insulin use status E11.9 Active 07030064 Problem Closed fracture of left patella, unspecified fracture morphology, sequela S82.002S Active 66371747 Problem Depression, unspecified depression type F32.9 Active 61846819 Problem Urinary incontinence, unspecified type R32 Active 048884796 Problem Hypothyroidism, unspecified type E03.9 Active 22471569 ALLERGIES No Information SOCIAL HISTORY Never Assessed PLAN OF CARE VITAL SIGNS MEDICATIONS Medication Instructions Dosage Frequency Start Date End Date Duration Status Loratadine 10 mg Orally Once a day 1 tablet 24h 90 days Active Levemir FlexTouch 100 UNIT/ML Subcutaneous at bedtime 10 units Active MiraLax N/A Orally Once a day 17 gm in 4-8 oz of fluid 24h May, Active Renvela 800 MG Orally Three times a day 1 tablet with meals 8h 90 days Active Doc-Q-Lace 100 MG Orally 2 times a day 1 capsule as needed 12h Active Lidocaine 4 % Externally Three times a day 1 application to affected area as needed 8h Feb, 30 days Active Oxybutynin Chloride ER 15 MG 1 tablet Once a day Orally 30 day(s) 90 Active Nystatin-Triamcinolone 842601-6.1 UNIT/GM Externally Twice a day 1 application to affected area 12h Feb, Sep, 30 days Active Fluticasone Propionate 50 MCG/ACT Nasally twice a day 2 sprays in each nostril 12h Active Nystatin 331107 UNIT/GM Externally Twice a day 1 application to affected area 12h Feb, 15 Sep, 2017 30 days Active Levothyroxine Sodium 100 MCG Orally Once a day 1 tablet 24h 90 days Active Eliquis 5 mg Orally 2 times a day as directed 12h 14 Feb, 2017 Active Oxygen ... by inhalation route continuous 2L Active Evelyn Root 250 MG Orally 2 times a day 1 capsule as needed for upset stomach 12h Active Vitamin C 500 mg Orally Once a day 1 tablet 24h Active Amlodipine Besylate 2.5 MG Orally Once a day 1 tablet 24h 90 Active Victoza 6 INJECT 1.8 MG SUB-Q DAILY 30 Active Tamsulosin HCl 0.4 MG Orally Once a day 1 capsule 24h 90 days Active Hospital Bed Semi electric . . as directed Jul, Lifetime Active Oxycodone-Acetaminophen 10-325 MG Orally 4 times a day 1 tablet as needed 6h March, 28 days Active Jaret Antifungal 2 % Externally Twice a day 1 application to affected area 12h Active Gabapentin 400 MG Orally 3 times a day 1 capsule 8h 90 days Active Pen Moriah 316" 31G X 5 MM as directed 6h Jul, Active Zoloft 50 mg Orally Once a day 1 tablet 24h 24 Jun, 2016 90 days Active NovoLog Flexpen 100 USE DIRECTED PER SLIDING SCALE(1 UNIT FOR BLOOD SUGAR 150-200, 2 UNITS FOR 201-250, 3 UNITS FOR 251-300) OVER 300 CALL 30 Active BusPIRone HCl 10 mg Orally Twice a day 1 tablet 12h 90 days Active RESULTS No Results PROCEDURES No Known procedures IMMUNIZATIONS No Known Immunizations MEDICAL (GENERAL) HISTORY Type Description Date Medical History Obstructive sleep apnea Medical History A-Fib Medical History Heart Attack Medical History Hypertension Medical History Diabetic Medical History Degenerate disk disease Medical History Arthritis Medical History Left knee fracture Medical History Hypothyroidsim Medical History Depression 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 Medical History Left knee Fx wired and screws placed in femure Surgical History Tonsillectomy Surgical History Gallbladder Surgical History Left hip fracture and replacement Surgical History Bilateral shoulder surgery Surgical History lithotripsy Hospitalization History severe UTI with indwelling hayes cathetere, Acute/ Chronic renal failure, Type II DM, stage II decub ulcer to buttocks, leukocytosis 05/24/16 Hospitalization History Anemia, Acute Kidney Injury 08/05/16 Hospitalization History UTI, Sepsis--[facility] Hospitalization History Chest pain/SOB/A-fib 02/2017 Hospitalization History Chest pain-[facility] 04/13/17 Hospitalization History UTI, respiratory failure, altered mental status-[facility] 09/13/17
--- OUTSIDE RECORDS SUMMARY | 2017-10-04 19:51 | XMS REPORT ---
Author Author LATONYA KIM [facility] Address [address] [place] [address] Care Team Providers Care Agricultural Equipment Mechanic Name Role Phone LATONYA KIM Unavailable PROBLEMS Type Condition ICD9-CM Code GXB36-EM Code Onset Dates Condition Status SNOMED Code Problem Obstructive sleep apnea syndrome G47.33 Active 99353036 Problem Cataract H26.9 Active 684782785 Problem Gastroesophageal reflux disease without esophagitis K21.9 Active 804388861 Problem Decreased renal function N28.9 Active 87725858 Problem Ulcer L98.499 Active 984484940 Problem Perennial allergic rhinitis, unspecified allergic rhinitis trigger J30.89 Active 196363056 Problem Other chronic pain G89.29 Active 22070485 Problem Atrial fibrillation, unspecified type I48.91 Active 56271670 Problem Restless leg syndrome G25.81 Active 60749054 Problem Morbid obesity due to excess calories E66.01 Active 309223723 Problem Chronic kidney disease (CKD), unspecified stage N18.9 Active 052384051 Problem 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, 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 E11.9 Active 66798367 Problem Closed fracture of left patella, unspecified fracture morphology, sequela S82.002S Active 95250342 Problem Depression, unspecified depression type F32.9 Active 00852727 Problem Urinary incontinence, unspecified type R32 Active 348578882 Problem Hypothyroidism, unspecified type E03.9 Active 27882407 ALLERGIES No Information SOCIAL HISTORY Never Assessed PLAN OF CARE VITAL SIGNS MEDICATIONS Medication Instructions Dosage Frequency Start Date End Date Duration Status Oxycodone-Acetaminophen 10-325 MG Orally 4 times a day 1 tablet as needed 6h Apr, 28 days Active RESULTS No Results PROCEDURES No [...] Acute Kidney Injury 08/05/16 Hospitalization History UTI, Sepsis--[facility] Hospitalization History Chest pain/SOB/A-fib 02/2017 Hospitalization History Chest pain-[facility] 04/13/17 Hospitalization History UTI, respiratory failure, altered mental status-[facility] 09/13/17
--- OUTSIDE RECORDS SUMMARY | 2017-10-04 19:59 | XMS REPORT ---
Author Author LATONYA KIM [facility] Address [address] [place] [address] Care Team Providers Care Data Communications Technician Name Role Phone LATONYA KIM Unavailable PROBLEMS Type Condition ICD9-CM Code AMK18-PA Code Onset Dates Condition Status SNOMED Code Problem Obstructive sleep apnea syndrome G47.33 Active 76843657 Problem Cataract H26.9 Active 221067223 Problem Gastroesophageal reflux disease without esophagitis K21.9 Active 956406776 Problem Decreased renal function N28.9 Active 12481026 Problem Ulcer L98.499 Active 191548342 Problem Perennial allergic rhinitis, unspecified allergic rhinitis trigger J30.89 Active 364439395 Problem Other chronic pain G89.29 Active 35388392 Problem Atrial fibrillation, unspecified type I48.91 Active 97581988 Problem Restless leg syndrome G25.81 Active 01929570 Problem Morbid obesity due to excess calories E66.01 Active 756367282 Problem Chronic kidney disease (CKD), unspecified stage N18.9 Active 199996536 Problem 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, 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 Active 57343445 Problem Closed fracture of left patella, unspecified fracture morphology, sequela S82.002S Active 99289920 Problem Depression, unspecified depression type F32.9 Active 44578193 Problem Urinary incontinence, unspecified type R32 Active 525809607 Problem Hypothyroidism, unspecified type E03.9 Active 44954529 ALLERGIES No Information SOCIAL HISTORY Never Assessed PLAN OF CARE VITAL SIGNS MEDICATIONS Medication Instructions Dosage Frequency Start Date End Date Duration Status Diflucan 100 mg Take 2 tablets on first day, then 1 tablet daily for nine days March, 2 Apr, 2017 10 day(s) Active RESULTS No Results PROCEDURES No Known [...] Acute Kidney Injury 08/05/16 Hospitalization History UTI, Sepsis--[facility] Hospitalization History Chest pain/SOB/A-fib 02/2017 Hospitalization History Chest pain-[facility] 04/13/17 Hospitalization History UTI, respiratory failure, altered mental status-[facility] 09/13/17
[2017-10-04 20:00] VITALS: BP 133/73
[2017-10-04] MEDS ORDERED: ONDANSETRON 4 MG/2 ML (SDV) Z0FRAN IVP PRN (20:15)
[2017-10-04] MEDS ORDERED: IBUPROFEN 800 MG (MOTRIN) TAB PO PRN (20:15)
[2017-10-04] MEDS ORDERED: ACETAMINOPHEN 500 MG TAB (TYLENOL) PO PRN (20:15)
[2017-10-04 20:51] VITALS: BP 136/75
[2017-10-04] MEDS ORDERED: RT-ALBUTEROL/IPRATROPIUM 3 ML (DUONEB) VIAL INH PRN (21:15)
[2017-10-04] MEDS: NS IV 1000 ML 1,000 ML IV SCH (22:05)
[2017-10-04] MEDS: POLYETHYLENE GLYCOL 17 GM (MIRALAX) PACK PO SCH (22:06)
[2017-10-04] MEDS: inSUlin (REGULAR) HUMAN 1 UNIT/0.01 ML (CHARGE PER UNIT) SC SCH (22:12)
[2017-10-04] MEDS: RT-ALBUTEROL/IPRATROPIUM 3 ML (DUONEB) VIAL INH SCH (22:22)
[2017-10-05] VITALS: BP 176/81
[2017-10-05] MEDS: RT-ALBUTEROL/IPRATROPIUM 3 ML (DUONEB) VIAL INH SCH ×4 (01:49→15:14)
[2017-10-05] MEDS: fentaNYL INJECTION 100 MCG/2 ML AMP IVP PRN ×3 (03:51→14:33)
[2017-10-05 04:00] VITALS: BP 158/78
[2017-10-05 05:06] LABS: ABG BASE EXCESS 6.6 MMOL/L (-2.5-2.5); ABG HCO3 32 MMOL/L (23-27); ABG OXYGEN SATURATION 97 % (94-100); ABG PCO2 59 MMHG (35-45); ABG PH 7.35 (7.37-7.43); ABG PO2 83 MMHG (79-93); ABG TCO2 34.2 MMOL/L (21.0-31.0)
[2017-10-05 05:08] LABS: ALLENS TEST YES-POS; PATIENT TEMP 96.1
[2017-10-05] MEDS: inSUlin (REGULAR) HUMAN 1 UNIT/0.01 ML (CHARGE PER UNIT) SC SCH ×3 (05:54→16:54)
[2017-10-05] MEDS ORDERED: LEVOTHYROXINE 125 MCG (LEVOTHROID) TABLET PO SCH (06:00)
[2017-10-05 06:26] LABS: BASOPHILS % (AUTO) 0 % (0-10); EOSINOPHILS % (AUTO) 0 % (0-10); LYMPHOCYTES # (AUTO) 0.2 X 10^3 (1.0-4.0); LYMPHOCYTES % (AUTO) 2 % (12-44); MEAN CORPUSCULAR HEMOGLOBIN 32 PG (25-34); MEAN CORPUSCULAR HGB CONC 30 G/DL (32-36); MEAN CORPUSCULAR VOLUME 105 FL (80-99); MEAN PLATELET VOLUME 11.2 FL (7.4-10.4); MONOCYTES # (AUTO) 0.1 X 10^3 (0.0-1.0); MONOCYTES % (AUTO) 1 % (0-12); NEUTROPHILS # (AUTO) 8.9 X 10^3 (1.8-7.8); NEUTROPHILS % (AUTO) 98 % (42-75); PLATELET COUNT 114 10^3/uL (130-400); RED BLOOD COUNT 3.34 10^6/uL (4.35-5.85); RED CELL DISTRIBUTION WIDTH 13.5 % (10.0-14.5); WHITE BLOOD COUNT 9.1 10^3/uL (4.3-11.0)
[2017-10-05 06:37] LABS: ANISOCYTOSIS SLIGHT; BAND NEUTROPHILS 7 %; BASOPHILS % (MANUAL) 0 %; EOSINOPHILS % (MANUAL) 0 %; LYMPHOCYTES % (MANUAL) 2 %; NEUTROPHILS % (MANUAL) 90 %
[2017-10-05 06:42] LABS: CALCIUM 9.4 MG/DL (8.5-10.1); CREATININE SERUM 1.52 MG/DL (0.60-1.30)
[2017-10-05] MEDS ORDERED: INFLUENZA TRIvalent 2017-2018 0.5 ML/45 MCG SYR IM ONE (07:30)
[2017-10-05 08:00] VITALS: BP 121/61
[2017-10-05] MEDS ORDERED: SEVE800T7 PO (08:21)
[2017-10-05] MEDS: NS IV 1000 ML 1,000 ML IV SCH (08:28)
[2017-10-05] MEDS: POLYETHYLENE GLYCOL 17 GM (MIRALAX) PACK PO SCH (11:06)
--- NOTE | 2017-10-05 11:44 | Discharge Inst-Skilled Nursing ---
Discharge Inst-Skilled NF Consult/Follow Up/Orders Skilled NF Admit to: [facility] Certifications SNF I certify that SNF services are required to be given on an inpatient basis because of the above named patient's need for long term care on a continuing basis for the conditions(s) for which he/she was receiving inpatient hospital services prior to his/her transfer to the SNF. [facility] Facility Order: Nursing Services, [facility]-Evaluate & Treat, Physical Therapy-Evaluate & Treat Discharge Diet: ADA Diet Daily Activity as Tolerated: Yes Discharge Medications New, Converted or Re-Newed RX: Other (no new scripts) Continued Medications: Amlodipine Besylate (Amlodipine Besylate) 2.5 Mg Tablet 2.5 MG PO DAILY, TAB Apixaban (Eliquis) 5 Mg Tablet 5 MG PO BID, TAB Ascorbate Calcium (Vitamin C) 500 Mg Tablet 500 MG PO 1200, TAB Aspirin (Aspirin EC) 81 Mg Tablet.dr 81 MG PO HS, TAB Diltiazem HCl (Cartia Xt) 120 Mg Cap.er.24h 120 MG PO DAILY, CAP Docusate Sodium (Colace) 100 Mg Capsule 100 MG PO HS, CAP Fluticasone Propionate (Fluticasone Propionate) 16 Gm [place].susp 2 SPRAYS NS BID, EA Gabapentin (Gabapentin) 400 Mg Capsule 400 MG PO TID, CAP Evelyn Root (Evelyn) 250 Mg Capsule 250 MG PO Q12H PRN for STOMACH UPSET, CAP Levothyroxine Sodium (Levothyroxine Sodium) 125 Mcg Tablet 125 MCG PO DAILY, TAB Lidocaine (Lidocaine) 5 Gm Cream..g. TOP TID PRN for SKIN SORE PAIN, EA Liraglutide (Victoza 3-Bj) 0.6 Mg/0.1 Ml Pen.injctr 1.8 MG SC DAILY, EA Loratadine (Loratadine) 10 Mg Tablet 10 MG PO DAILY, TAB Miconazole Nitrate (Jaret Antifungal) 142 Gm Cream..g. TP DAILY PRN for RASH, TUBE Naphazoline HCl/Glycerin (Redness Relief Eye Drops) 15 Ml Drops 2 DROPS OU BID, DROPS Nystatin (Nystatin) 15 Gm Oint...g. TOP BID, EA Nystatin (Nystop) 60 Gm Powder TOP BID, EA Ondansetron HCl (Ondansetron HCl) 8 Mg Tablet 8 MG PO TID PRN for NAUSEA/VOMITING-1ST LINE, TAB Oxybutynin Chloride (Oxybutynin Chloride ER) 15 Mg Tab.er.24 15 MG PO HS, TAB Oxycodone HCl/Acetaminophen (Oxycodone-Acetaminophen 10-325) 1 Each Tablet 1 TAB PO EVERY 4-6 HOURS PRN for PAIN-MODERATE, TAB Polyethylene Glycol 3350 (Miralax) 119 Gm Powder 17 GM PO DAILY PRN for CONSTIPATION-2ND LINE, EA Sevelamer Carbonate (Renvela) 800 Mg Tablet 800 MG PO TIDWM, TAB Silver Sulfadiazine (Ssd) 25 Gm Cream..g. TOP BID, EA Tamsulosin HCl (Flomax) 0.4 Mg Cap 0.4 MG PO DAILY, CAP Triamcinolone Acet (Triamcinolone Acetonide 0.1% Ointment) 15 Gm Oint TOP BID, EA Vortioxetine Hydrobromide (Trintellix) 10 Mg Tablet 10 MG PO DAILY, TAB LAST FILLED #85 7-18-17 Sandy Mckeon Oct 05, 2017 11:43 SANDY MCKEON MD Oct 05, 2017 11:44 am
[2017-10-05 12:00] VITALS: BP 101/56
[2017-10-05 15:37] VITALS: BP 98/50
--- NOTE | 2017-10-05 21:48 | Discharge Summary ---
Diagnosis/Chief Complaint Date of Admission Oct 04, 2017 at 6:45 pm Date of Discharge Oct 05, 2017 at 5:10 pm Admission Diagnosis Admission Diagnosis Hypoxia Hemoptysis Discharge Diagnosis Hypoxia- no clear evidence of infection or fluid overload and was near time for night time bipap that she routinely uses, resolved with bipap overnight, back to baseline supplemental oxygen next day, when asked about home use of bipap, she states "I will now", emphasized importance of use any time she is sleeping Hemoptysis- had nosebleed earlier, suspect hemoptysis related to this. Discussed frequent use of nasal saline which she reports she does have at custodial given the season change and drier belt conveyor air inside as well as her continuos oxygen use and Eliquis use putting her at increased risk for nosebleeds. Follow-up if hemoptysis persists, particularly if hypoxia recurs Bacteriuria- chronic, no evidence of acute infection Chief Complaint/HPI Chief Complaint/HPI 62 yo morbidly obese female sent from custodial due to low oxygen level and hemoptysis after nosebleed. She has multiple comorbidities and is on chronic supplemental oxygen and bipap at night, although from her answers appears she has not been using all the time. She denies fever or new cough, denies chest pain. Discharge Summary-OBS Procedures None. Discharge Physical Examination Allergies: Coded Allergies: Sulfa (Sulfonamide Antibiotics) (Verified Allergy, Unknown, 05/24/16) divalproex sodium (Verified Allergy, Unknown, 05/24/16) tetracycline (Unverified Adverse Reaction, Unknown, 03/03/17) Vitals & I&Os Intake and Output 10/06/17 00:00 Intake Total 760 ml Output Total 1000 ml Balance -240 ml Vital Sign - Last 12Hours Date Time Temp Pulse Resp B/P (MAP) Pulse Ox O2 Delivery O2 Flow Rate FiO2 10/05/17 17:10 10/05/17 15:37 97.2 98 18 92 High Flow N/C 2.00 10/05/17 08:05 40 General Appearance: Alert, Mild Distress Respiratory: Clear to Auscultation Cardiovascular: Regular Rate, No Murmurs Abdominal: Normal Bowel Sounds, Soft Psych/Mental Status: Mental Status NL Hospital Course See discharge diagnosis Labs Laboratory Tests 10/04/17 22:09: Glucometer 219H 10/05/17 04:10: Glucometer 231H 10/05/17 04:58: Blood Gas Puncture Site R RAD, Blood Gas Patient Temperature 96.1, Arterial Blood pH 7.35L, Arterial Blood Partial Pressure CO2 59H, Arterial Blood Partial Pressure O2 83, Arterial Blood HCO3 32H, Arterial Blood Total CO2 34.2H, Arterial Blood Oxygen Saturation 97, Arterial Blood Base Excess 6.6H, Arsh Test YES-POS, Blood Gas Ventilator Setting NO, Blood Gas Inspired Oxygen 40% BIPAP 06/0710/05/17 05:20: Glucometer 247H 10/05/17 06:00: White Blood Count 9.1, Red Blood Count 3.34L, Hemoglobin 10.7L, Hematocrit 35, Mean Corpuscular Volume 105H, Mean Corpuscular Hemoglobin 32, Mean Corpuscular Hemoglobin Concent 30L, Red Cell Distribution Width 13.5, Platelet Count 114L, Mean Platelet Volume 11.2H, Neutrophils (%) (Auto) 98H, Lymphocytes (%) (Auto) 2L, Monocytes (%) (Auto) 1, Eosinophils (%) (Auto) 0, Basophils (%) (Auto) 0, Neutrophils # (Auto) 8.9H, Lymphocytes # (Auto) 0.2L, Monocytes # (Auto) 0.1, Eosinophils # (Auto) 0.0, Basophils # (Auto) 0.0, Neutrophils % (Manual) 90, Lymphocytes % (Manual) 2, Monocytes % (Manual) 1, Eosinophils % (Manual) 0, Basophils % (Manual) 0, Band Neutrophils 7, Basophilic Stippling SLIGHT, Anisocytosis SLIGHT, Sodium Level 141, Potassium Level 5.0, Chloride Level 101, Carbon Dioxide Level 30, Anion Gap 10, Blood Urea Nitrogen 31H, Creatinine 1.52H , Estimat Glomerular Filtration Rate 35, BUN/Creatinine Ratio 20, Glucose Level 293H, Calcium Level 9.4 10/05/17 11:15: Glucometer 245H 10/05/17 15:40: Glucometer 265H Microbiology 10/04/17 Blood Culture - Preliminary, Resulted No growth 10/04/17 Urine Culture - Preliminary, Resulted Gram Negative [place] Gram Negative [place]#2 See Comments Radiology Reviewed CXR 10/04/17: IMPRESSION: 1. Examination is limited by portable technique and patient body habitus. 2. Unchanged marked cardiomegaly with chronic pulmonary venous hypertension. No shelley pulmonary edema or pleural effusion. Discharge Instructions to patient/family Please see electronic discharge instructions given to patient. Discharge Medications Reviewed and agree with Discharge Medication list on patient's Discharge Instruction sheet Clinical Quality Measures DVT/VTE Risk/Contraindication: Risk Factor Score Per Nursin RFS Level Per Nursing on Admit: 4+=Very High Copy Copies To 1: ALIREZA Chase BETHANY N MD Oct 05, 2017 9:48 pm
== END 2017-10-05 17:10 | DRG 206 ==
LOC: EDUNIT# 16:54 → ER 16:55 → 4TH 18:45
PROVIDERS: ADMIT Family Medicine; ATTEND Family Medicine
DX: R09.02 Hypoxemia (principal); Z91.19 Patient's noncompliance with other medical treatment and regimen; R82.71 Bacteriuria; J44.1 Chronic obstructive pulmonary disease with (acute) exacerbation; E87.2 Acidosis; R04.2 Hemoptysis; E66.01 Morbid (severe) obesity due to excess calories; Z68.44 Body mass index [BMI] 60.0-69.9, adult; R10.13 Epigastric pain; K59.00 Constipation, unspecified; I48.91 Unspecified atrial fibrillation; G47.30 Sleep apnea, unspecified; I25.10 Atherosclerotic heart disease of native coronary artery without angina pectoris; I25.2 Old myocardial infarction; I10 Essential (primary) hypertension; G62.9 Polyneuropathy, unspecified; K21.9 Gastro-esophageal reflux disease without esophagitis; F32.9 Major depressive disorder, single episode, unspecified; M79.7 Fibromyalgia; M19.91 Primary osteoarthritis, unspecified site; M54.9 Dorsalgia, unspecified; Z95.0 Presence of cardiac pacemaker; Z96.642 Presence of left artificial hip joint; Z87.891 Personal history of nicotine dependence; Z93.6 Other artificial openings of urinary tract status
CPT/HCPCS: 36415; 71010; 74000; 80048; 80053; 81000; 82805; 82962; 83605; 83690; 84484; 85007; 85025; 85027; 85610; 85730; 87040; 87088; 93005; 94640; 94660

== ENCOUNTER 2018-05-09 14:42 | Inpatient (IN) | payer MEDICARE ==
[~2018-05-09] VITALS: Ht 167.6 cm; Wt 186.1 kg
[~2018-05-09 14:42] MED LIST changes: -LIDO5CRE20 TOP; +LIDO5CRE24 TOP
[2018-05-09] MEDS ORDERED: RT-ALBUTEROL/IPRATROPIUM 3 ML (DUONEB) VIAL INH ONE (15:00)
[2018-05-09 15:28] LABS: BASOPHILS % (AUTO) 0 % (0-10); EOSINOPHILS % (AUTO) 0 % (0-10); HEMATOCRIT 37 % (35-52); HEMOGLOBIN 11.8 G/DL (11.5-16.0); LYMPHOCYTES # (AUTO) 0.4 X 10^3 (1.0-4.0); LYMPHOCYTES % (AUTO) 3 % (12-44); MEAN CORPUSCULAR HEMOGLOBIN 34 PG (25-34); MEAN CORPUSCULAR HGB CONC 32 G/DL (32-36); MEAN CORPUSCULAR VOLUME 107 FL (80-99); MEAN PLATELET VOLUME 11.1 FL (7.4-10.4); MONOCYTES # (AUTO) 1.2 X 10^3 (0.0-1.0); MONOCYTES % (AUTO) 10 % (0-12); NEUTROPHILS # (AUTO) 10.2 X 10^3 (1.8-7.8); NEUTROPHILS % (AUTO) 87 % (42-75); PLATELET COUNT 154 10^3/uL (130-400); RED BLOOD COUNT 3.47 10^6/uL (4.35-5.85); RED CELL DISTRIBUTION WIDTH 14.6 % (10.0-14.5); WHITE BLOOD COUNT 11.8 10^3/uL (4.3-11.0)
--- NOTE | 2018-05-09 15:38 | Diagnostic Imaging Report ---
INDICATION: Shortness of breath and respiratory distress. Comparison is made with prior examination from 10/04/17. FINDINGS: There is cardiomegaly. There is mild venous congestion. There is no pleural effusion or pneumothorax. Mediastinum is unremarkable. Pacemaker overlies the left hemithorax. IMPRESSION: Cardiomegaly and mild central pulmonary venous congestion. Dictated by: Dictated on workstation # [id number]
[2018-05-09 15:40] LABS: INR 1.3 (0.8-1.4)
[2018-05-09 15:41] LABS: BAND NEUTROPHILS 11 %; BASOPHILS % (MANUAL) 0 %; EOSINOPHILS % (MANUAL) 0 %; LYMPHOCYTES % (MANUAL) 5 %; MONOCYTES % (MANUAL) 10 %; NEUTROPHILS % (MANUAL) 74 %
[2018-05-09 15:42] LABS: RBC MORPH NORMAL
[2018-05-09 15:44] LABS: ABG BASE EXCESS 4.8 MMOL/L (-2.5-2.5); ABG OXYGEN SATURATION 97 % (94-100); ABG PCO2 62 MMHG (35-45); ABG PO2 81 MMHG (79-93); ABG TCO2 32.9 MMOL/L (21.0-31.0)
[2018-05-09 15:45] LABS: ABG PH 7.31 (7.37-7.43); ALLENS TEST POSITIVE; INSPIRED O2 6 L; PATIENT TEMP 96.9; VENTILATOR NO
[2018-05-09 15:48] LABS: CREATININE SERUM 2.29 MG/DL (0.60-1.30)
[2018-05-09 15:49] LABS: ALBUMIN 3.6 GM/DL (3.2-4.5); BILIRUBIN,TOTAL 0.7 MG/DL (0.1-1.0); CALCIUM 9.5 MG/DL (8.5-10.1); TOTAL PROTEIN 6.7 GM/DL (6.4-8.2)
[2018-05-09] MEDS ORDERED: PIPERACILLIN/TAZOBACTAM 3.375 GM in D5W 100 ML IVPB 100 ML IV ONE (16:15)
[2018-05-09 16:33] LABS: BILIRUBIN,URINE NEGATIVE (NEGATIVE); CLARITY,URINE SLIGHTLY CLOUDY; COLOR,URINE YELLOW; GLUCOSE, URINE (UA) NEGATIVE (NEGATIVE); KETONES,URINE NEGATIVE (NEGATIVE); LEUKOCYTE ESTERASE ,URINE 3+ (NEGATIVE); NITRITE,URINE POSITIVE (NEGATIVE); PH,URINE 8 (5-9); PROTEIN,URINE 3+ (NEGATIVE); UROBILINOGEN,URINE NORMAL (NORMAL)
[2018-05-09 16:45] LABS: BACTERIA,URINE LARGE /HPF; RBC,URINE TNTC /HPF; WBC,URINE 50-100 /HPF
[2018-05-09] MEDS ORDERED: oxyCODONE/APAP 5/325MG (PERCOCET 5) TABLET PO ONE (16:45)
[2018-05-09] MEDS ORDERED: VANCOMYCIN INJECTION 1,000 MG in NS (IVPB) 250 ML IV ONE (17:15)
--- NOTE | 2018-05-09 17:17 | ED Respiratory ---
General Chief Complaint: Respiratory Problems Stated Complaint: SOA Nursing Triage Note: Patient presented to the ER via EMS secondary to complains of low O2 sat. shelter staff advised that the patient was found this morning with an oxygen saturation of 68%. Patient improved with 02 administration but staff advise the patient has not been acting right since Source: patient, prison records, old records Exam Limitations: clinical condition (RYAN ABRAHAM MD) History of Present Illness Date Seen by Provider: May 09, 2018 Time Seen by Provider: 14:43 Initial Comments This 63-year-old woman presents to emergency room via EMS from the prison where she was found to have oxygen saturations in the 60s and with altered mental status. Apparently her oxygen bleed into her CPAP was disconnected at some point in the night. We are uncertain how long she was hypoxic. Patient has a history of respiratory failure and admission for respiratory failure. She is technically alert and oriented on arrival but rather somnolent. Symptoms are suspicious for hypercarbia. She is afebrile but feels warm to tactile examination. Patient is morbidly obese and has an indwelling catheter. Her indwelling catheter has significant sediment and cloudy urine within it. Patient notes that she had an eye surgery performed out of town a few days ago and was rather tired after that. (RYAN ABRAHAM MD) Allergies and Home Medications Allergies Coded Allergies: Sulfa (Sulfonamide Antibiotics) (Verified Allergy, Unknown, 05/24/16) divalproex sodium (Verified Allergy, Unknown, 05/24/16) tetracycline (Unverified Adverse Reaction, Unknown, 03/03/17) Home Medications Amlodipine Besylate 2.5 Mg Tablet, 2.5 MG PO DAILY, (Reported) Apixaban 5 Mg Tablet, 5 MG PO BID, (Reported) Ascorbate Calcium 500 Mg Tablet, 500 MG PO 1200, (Reported) Aspirin 81 Mg Tablet.dr, 81 MG PO HS, (Reported) Diltiazem HCl 120 Mg Cap.er.24h, 120 MG PO DAILY, (Reported) Docusate Sodium 100 Mg Capsule, 100 MG PO HS, (Reported) Fluticasone Propionate 16 Gm [place].susp, 2 SPRAYS NS BID, (Reported) Gabapentin 400 Mg Capsule, 400 MG PO TID, (Reported) Evelyn Root 250 Mg Capsule, 250 MG PO Q12H PRN for STOMACH UPSET, (Reported) Levothyroxine Sodium 125 Mcg Tablet, 125 MCG PO DAILY, (Reported) Lidocaine 5 Gm Cream..g., TOP TID PRN for SKIN SORE PAIN, (Reported) Liraglutide 0.6 Mg/0.1 Ml Pen.injctr, 1.8 MG SC DAILY, (Reported) Loratadine 10 Mg Tablet, 10 MG PO DAILY, (Reported) Miconazole Nitrate 142 Gm Cream..g., TP DAILY PRN for RASH, (Reported) Naphazoline HCl/Glycerin 15 Ml Drops, 2 DROPS OU BID, (Reported) Nystatin 15 Gm Oint...g., TOP BID, (Reported) Nystatin 60 Gm Powder, TOP BID, (Reported) Ondansetron HCl 8 Mg Tablet, 8 MG PO TID PRN for NAUSEA/VOMITING-1ST LINE, ( Reported) Oxybutynin Chloride 15 Mg Tab.er.24, 15 MG PO HS, (Reported) Oxycodone HCl/Acetaminophen 1 Each Tablet, 1 TAB PO EVERY 4-6 HOURS PRN for PAIN -MODERATE, (Reported) Polyethylene Glycol 3350 119 Gm Powder, 17 GM PO DAILY PRN for CONSTIPATION-2ND LINE, (Reported) Sevelamer Carbonate 800 Mg Tablet, 800 MG PO TIDWM, (Reported) Silver Sulfadiazine 25 Gm Cream..g., TOP BID, (Reported) Tamsulosin HCl 0.4 Mg Cap, 0.4 MG PO DAILY, (Reported) Triamcinolone Acet 15 Gm Oint, TOP BID, (Reported) Vortioxetine Hydrobromide 10 Mg Tablet, 10 MG PO DAILY, (Reported) LAST FILLED #85 06-08-17 Patient Home Medication List Home Medication List Reviewed: Yes (RYAN ABRAHAM MD) Review of Systems Constitutional: see HPI EENTM: no symptoms reported Respiratory: see HPI Cardiovascular: no symptoms reported Gastrointestinal: no symptoms reported Genitourinary: see HPI : No Musculoskeletal: no symptoms reported Skin: no symptoms reported Psychiatric/Neurological: See HPI Hematologic/Lymphatic: No Symptoms Reported Immunological/Allergic: no symptoms reported (RYAN ABRAHAM MD) Past Hlwycks-Qldgwt-Hzfzxy Hx Patient Social History Alcohol Use: Denies Use Recreational Drug Use: No Smoking Status: Former Smoker Former Smoker, Quit: Aug 05, 1985 2nd Hand Smoke Exposure: No Recent Foreign Travel: No Contact w/Someone Who Travel: No Recent Infectious Disease Expo: No Recent Hopitalizations: Yes Physical Abuse: No Sexual Abuse: No (RYAN ABRAHAM MD) Immunizations Up To Date Tetanus Booster (TDap): More than 5yrs PED Vaccines UTD: No Date of Pneumonia Vaccine: Nov 22, 2015 Date of Influenza Vaccine: Sep 15, 2017 (RYAN ABRAHAM MD) Seasonal Allergies Seasonal Allergies: No (RYAN ABRAHAM MD) Past Medical History Surgeries: Yes (left hip replacment, bilat shoulder sx, multiple lithotripsies) Cardiac, Gallbladder, Joint Replacement, Orthopedic, Pacemaker, Tonsillectomy, Vascular Surgery Respiratory: Yes (history of respiratory failure with hypoxia and hypercarbia) Asthma, Sleep Apnea, COPD Currently Using CPAP: Yes Currently Using BIPAP: No Cardiac: Yes ( PACEMAKER) Atrial Fibrillation, Chronic Edema/Swelling, Coronary Artery Disease, Heart Attack, Hypertension Neurological: Yes Neuropathy : No Reproductive Disorders: No Female Reproductive Disorders: Denies Sexually Transmitted Disease: No HIV/AIDS: No Genitourinary: Yes (CHRONIC CARDONA, ESBL) Kidney Infection, Bladder Infection, Kidney Stones, Renal Failure, UTI-Chronic Gastrointestinal: Yes Abdominal Hernia, Gastroesophageal Reflux Musculoskeletal: Yes (CARPAL TUNNEL) Degenerate Disk Disease, Arthritis, Fibromyalgia, Chronic Back Pain, Fractures Endocrine: Yes (morbid obesity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) Cataract Loss of Vision: Right Hearing Impairment: Denies Cancer: No Psychosocial: Yes Depression Nursing Suicide Risk Score: 0 Integumentary: Yes (Previous skin breakdown) Recent Skin Changes Blood Disorders: No Adverse Reaction/Blood Tranf: No (RYAN ABRAHAM MD) Family Medical History Arthritis G8 SISTER Bleeding disorder G8 BROTHER Cardiovascular disease G8 SISTER Diabetes mellitus 19 MOTHER FH: brain tumor 19 FATHER Hypertension G8 SISTER G8 SISTER G8 SISTER Kidney disease 19 MOTHER Thyroid disease G8 SISTER Heart Disease, CAD Over 55 Years Old, Hypertension, Renal Disease (RYAN ABRAHAM MD) Physical Exam Vital Signs Vital Signs - First Documented 05/09/18 05/09/18 05/09/18 15:05 15:26 15:29 Temp 96.9 Pulse 97 Resp 36 B/P (MAP) 127/95 (106) Pulse Ox 96 O2 Delivery Nasal Cannula O2 Flow Rate 6.00 FiO2 100 (ESTRELLA OVIEDO) Vital Signs Capillary Refill : Less Than 3 Seconds (RYAN ABRAHAM MD) General Appearance: WD/WN, no apparent distress, obese HEENT: PERRL/EOMI, normal ENT inspection Neck: normal inspection Respiratory: lungs clear, normal breath sounds, decreased breath sounds Cardiovascular: regular rate, rhythm, no edema, no murmur, other (obesity obscures exam for edema) Gastrointestinal: normal bowel sounds, non tender, soft Extremities: normal inspection, normal capillary refill 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/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, no motor/sensory deficits, oriented x 3, other (technically oriented with decreased alertness) Skin: normal color, warm/dry (RYAN ABRAHAM MD) Focused Exam Lactate Level 05/09/18 15:05: Lactic Acid Level 1.63 (ESTRELLA OVIEDO) Lactic Acid Level Laboratory Tests Test 05/09/18 15:05 Lactic Acid Level 1.63 MMOL/L (0.50-2.00) (ESTRELLA OVIEDO) Procedures/Interventions Date of ETT Placement: Sep 13, 2017 Time of ETT Placement: 1450 (RYAN ABRAHAM MD) Progress/Results/Core Measures Suspected Sepsis Recent Fever Within 48 Hours: No Infection Criteria Present: Suspected New Infection New/Unexplained Altered Menta: Yes Sepsis Screen: No Definite Risk SIRS Temperature:96.9 Pulse: 90 Respiratory Rate: 12 Laboratory Tests 05/09/18 15:05: White Blood Count 11.8H Blood Pressure 127 /95 Mean: 106 05/09/18 15:05: Lactic Acid Level 1.63 Laboratory Tests 05/09/18 15:05: Creatinine 2.29H, INR Comment 1.3, Platelet Count 154, Total Bilirubin 0.7 (RYAN ABRAHAM MD) Results/Orders Lab Results Laboratory Tests Test 05/09/18 15:05 05/09/18 15:12 05/09/18 16:23 Range/Units White Blood Count 11.8 H 4.3-11.0 10^3/uL Red Blood Count 3.47 L 4.35-5.85 10^6/uL Hemoglobin 11.8 11.5-16.0 G/DL Hematocrit 37 35-52 % Mean Corpuscular Volume 107 H 80-99 FL Mean Corpuscular Hemoglobin 34 25-34 PG Mean Corpuscular Hemoglobin Concent 32 32-36 G/DL Red Cell Distribution Width 14.6 H 10.0-14.5 % Platelet Count 154 130-400 10^3/uL Mean Platelet Volume 11.1 H 7.4-10.4 FL Neutrophils (%) (Auto) 87 H 42-75 % Lymphocytes (%) (Auto) 3 L 12-44 % Monocytes (%) (Auto) 10 0-12 % Eosinophils (%) (Auto) 0 0-10 % Basophils (%) (Auto) 0 0-10 % Neutrophils # (Auto) 10.2 H 1.8-7.8 X 10^3 Lymphocytes # (Auto) 0.4 L 1.0-4.0 X 10^3 Monocytes # (Auto) 1.2 H 0.0-1.0 X 10^3 Eosinophils # (Auto) 0.0 0.0-0.3 10^3/uL Basophils # (Auto) 0.0 0.0-0.1 10^3/uL Neutrophils % (Manual) 74 % Lymphocytes % (Manual) 5 % Monocytes % (Manual) 10 % Eosinophils % (Manual) 0 % Basophils % (Manual) 0 % Band Neutrophils 11 % Blood Morphology Comment NORMAL Prothrombin Time 16.0 H 12.2-14.7 SEC INR Comment 1.3 0.8-1.4 Activated Partial Thromboplast Time 35 24-35 SEC Sodium Level 141 135-145 MMOL/L Potassium Level 5.0 3.6-5.0 MMOL/L Chloride Level 103 98-107 MMOL/L Carbon Dioxide Level 28 21-32 MMOL/L Anion Gap 10 5-14 MMOL/L Blood Urea Nitrogen 29 H 7-18 MG/DL Creatinine 2.29 H 0.60-1.30 MG/DL Estimat Glomerular Filtration Rate 21 BUN/Creatinine Ratio 13 Glucose Level 242 H 70-105 MG/DL Lactic Acid Level 1.63 0.50-2.00 MMOL/L Calcium Level 9.5 8.5-10.1 MG/DL Total Bilirubin 0.7 0.1-1.0 MG/DL Aspartate Amino Transf (AST/SGOT) 10 5-34 U/L Alanine Aminotransferase (ALT/SGPT) 22 0-55 U/L Alkaline Phosphatase 98 40-136 U/L C-Reactive Protein High Sensitivity 10.39 H 0.00-0.50 MG/DL B-Type Natriuretic Peptide 172.9 H <100.0 PG/ML Total Protein 6.7 6.4-8.2 GM/DL Albumin 3.6 3.2-4.5 GM/DL Blood Gas Puncture Site LEFT ULNAR Blood Gas Patient Temperature 96.9 Arterial Blood pH 7.31 *L 7.37-7.43 Arterial Blood Partial Pressure CO2 62 H 35-45 MMHG Arterial Blood Partial Pressure O2 81 79-93 MMHG Arterial Blood HCO3 31 H 23-27 MMOL/L Arterial Blood Total CO2 32.9 H 21.0-31.0 MMOL/L Arterial Blood Oxygen Saturation 97 94-100 % Arterial Blood Base Excess 4.8 H -2.5-2.5 MMOL/L Arsh Test POSITIVE Blood Gas Ventilator Setting NO Blood Gas Inspired Oxygen 6 L Urine Color YELLOW Urine Clarity SLIGHTLY CLOUDY Urine pH 8 5-9 Urine Specific [place] 1.010 L 1.016-1.022 Urine Protein 3+ H NEGATIVE Urine Glucose (UA) NEGATIVE NEGATIVE Urine Ketones NEGATIVE NEGATIVE Urine Nitrite POSITIVE H NEGATIVE Urine Bilirubin NEGATIVE NEGATIVE Urine Urobilinogen NORMAL NORMAL MG/DL Urine Leukocyte Esterase 3+ H NEGATIVE Urine RBC (Auto) 5+ H NEGATIVE Urine RBC TNTC H /HPF Urine WBC 50-100 H /HPF Urine Crystals NONE /LPF Urine Bacteria LARGE H /HPF Urine Casts NONE /LPF Urine Mucus NEGATIVE /LPF Urine Culture Indicated YES (ESTRELLA OVIEDO) Micro Results Microbiology 05/09/18 Influenza Types A,B Antigen (GODFREY) - Final, Complete (ESTRELLA OVIEDO) Medications Given in ED Current Medications Medications Dose Ordered Sig/Stefanie Route Start Time Stop Time Status Last Admin Dose Admin Albuterol/ Ipratropium 3 ml ONCE ONCE INH 05/09/18 15:00 05/09/18 15:01 DC 05/09/18 16:16 3 ML Oxycodone/ Acetaminophen 2 tab ONCE ONCE PO 05/09/18 16:45 05/09/18 16:46 DC 05/09/18 16:51 2 TAB Piperacillin Sod/ Tazobactam Sod 3.375 gm/Dextrose 100 ml @ 200 mls/hr ONCE ONCE IV 05/09/18 16:15 05/09/18 16:44 DC 05/09/18 16:32 200 MLS/HR (ESTRELLA OVIEDO) Vital Signs/I&O 05/09/18 05/09/18 05/09/18 15:05 15:26 15:29 Temp 96.9 Pulse 97 90 Resp 36 12 B/P (MAP) 127/95 (106) Pulse Ox 96 95 96 O2 Delivery Nasal Cannula Nasal Cannula O2 Flow Rate 6.00 40.00 FiO2 100 (ESTRELLA OVIEDO) Vital Signs/I&O Capillary Refill : Less Than 3 Seconds (RYAN ABRAHAM MD) Blood Pressure Mean: 106 Progress Note : Progress Note Patient was suspected of being hypercarbic. She was promptly started on BiPAP therapy and given a DuoNeb treatment. ABG was obtained and confirmed hypercarbia. Sepsis workup was pursued. Significant colonization versus urinary tract infection was identified. CRP was elevated. Empiric antibiotics were initiated with Zosyn. After discussion with Dr. Marx vancomycin was added. Case was reviewed with Dr. Mckeon. She agrees with admission and continued BiPAP therapy. Dr. Marx and I discussed hydration status. Patient is more likely hypovolemic than fluid overloaded. Maintenance fluids were ordered. Patient also received a small quantity of fluids with her antibiotics. Patient had some short runs of wide-complex tachycardia suspicious for ventricular tachycardia. Dr. Lockett was consulted. Patient complained of uncontrolled pain. Her usual dose of Percocet was ordered. (RYAN ABRAHAM MD) Progress Note : Time: 19:18 Progress Note Assume care of the patient at shift change and consult patient. She was resting quietly and comfortably on her BiPAP with good vital signs heart rate in the 90s and sats in the upper 90s. She claims she's feeling much better than when she first got here and is oriented to person place and time. Lungs are little diminished. She is not having any pain anywhere although she is thirsty and asking for something to eat. Nursing is giving report and she should be moving upstairs shortly has been explained to get something to eat when she gets to the floor. She is okay with this plan. (ESTRELLA OVIEDO) ECG Initial ECG Impression Date: May 09, 2018 Initial ECG Impression Time: 16:59 Initial ECG Rate: 87 Initial ECG Rhythm: Normal Sinus Comment Sinus rhythm with no ST elevation or depression. Right bundle branch block and first-degree AV block. (RYAN ABRAHAM MD) Diagnostic Imaging Diagonstic Imaging: Xray Plain Films/CT/US/NM/MRI: chest Comments Chest x-ray viewed by me and report reviewed. See report below: NAME: RONA MCDONALD MED REC#: [id number] PT STATUS: REG ER : 1955 PHYSICIAN: RYAN ABRAHAM MD ADMIT DATE: 05/09/18/ER Signed Date of Exam: 05/09/18 CHEST 1 VIEW, AP/PA ONLY INDICATION: Shortness of breath and respiratory distress. Comparison is made with prior examination from 10/04/17. FINDINGS: There is cardiomegaly. There is mild venous congestion. There is no pleural effusion or pneumothorax. Mediastinum is unremarkable. Pacemaker overlies the left hemithorax. IMPRESSION: Cardiomegaly and mild central pulmonary venous congestion. Dictated by: Dictated on workstation # [id number] Dict: 05/09/18 1533 Trans: 05/09/18 1622 Interpreted by: HILARIO RIVAS MD Electronically signed by: HILARIO RIVAS MD 05/09/18 1622 (RAYN ABRAHAM MD) Departure Communication (Admissions) Time/Spoke to Admitting Phy: 16:50 Dr. Mike Lockett at 17:00 Dr. Marx at 16:55 (RYAN ABRAHAM MD) Impression Primary Impression: Respiratory failure Qualified Codes: J96.21 - Acute and chronic respiratory failure with hypoxia; J96.22 - Acute and chronic respiratory failure with hypercapnia Additional Impressions: Acute on chronic renal failure Qualified Codes: N17.9 - Acute kidney failure, unspecified; N18.9 - Chronic kidney disease, unspecified Arrhythmia Qualified Codes: I49.9 - Cardiac arrhythmia, unspecified Urinary tract infection Qualified Codes: N39.0 - Urinary tract infection, site not specified Disposition: ADMITTED INPATIENT Condition: Improved Admissions Decision to Admit Reason: Admit from ER (General) Decision to Admit/Date: May 10, 2018 Time/Decision to Admit Time: 14:45 (RYAN ABRAHAM MD) Departure-Patient Inst. Referrals: [facility] [place]) Primary Care Physician RYAN ABRAHAM MD May 09, 2018 17:17 ESTRELLA OVIEDO May 09, 2018 19:32
[2018-05-09 19:49] VITALS: BP 141/85
[2018-05-09 19:52] VITALS: BP 141/85
[2018-05-09 20:00] VITALS: BP 141/85
[2018-05-09] MEDS ORDERED: VANCOMYCIN 1 GM/NS 250 ML IVPB IV NR ×2 (20:15)
[2018-05-09] MEDS ORDERED: CATHETER FLUSH 10 ML SYR IV PRN (20:30)
[2018-05-09] MEDS ORDERED: oxyCODONE/APAP 5/325MG (PERCOCET 5) TABLET PO PRN (20:30)
[2018-05-09] MEDS: APIXABAN 5 MG (ELIQUIS) TABLET PO SCH (20:39)
[2018-05-09] MEDS: NS IV 1000 ML 1,000 ML IV SCH (20:39)
[2018-05-09 21:00] VITALS: BP 131/76
[2018-05-09 22:20] VITALS: BP 146/92
[2018-05-09 23:00] VITALS: BP 145/101
[2018-05-10] VITALS (28 sets, daily range): BP systolic 89–194; BP diastolic 40–115
[2018-05-10] MEDS ORDERED: PIPERACILLIN/TAZO 3.375 GM/D5W 100 ML IV SCH ×2 (01:00)
[2018-05-10 04:39] LABS: ABG BASE EXCESS 4.6 MMOL/L (-2.5-2.5); ABG OXYGEN SATURATION 96 % (94-100); ABG PCO2 60 MMHG (35-45); ABG PO2 75 MMHG (79-93); ABG TCO2 31.9 MMOL/L (21.0-31.0)
[2018-05-10 04:43] LABS: ABG PH 7.33 (7.37-7.43)
[2018-05-10 04:44] LABS: ALLENS TEST YES-POS; INSPIRED O2 30%; PATIENT TEMP 99.7; VENTILATOR NO
[2018-05-10] MEDS: NS IV 1000 ML 1,000 ML IV SCH ×2 (05:40→12:51)
[2018-05-10] MEDS: KCL 20 MEQ TAB (K-DUR) PO SCH (06:00)
[2018-05-10] MEDS: MAGNESIUM 1 GM/100 ML IVPB 100 ML IV SCH (06:00)
[2018-05-10] MEDS: POTASSIUM CL 10MEQ/50ML IVPB 50 ML IV SCH (06:00)
--- NOTE | 2018-05-10 06:32 | Pulmonary Consultation ---
History of Present Illness History of Present Illness Date of Consultation 05/10/18 06:27 Time Seen by Provider: 06:27 Date of Admission History of Present Illness 63yo from ECF and chronic catheter presented to ED via EMS secondary to progressive SOB, confusion and was found to be hypoxia. Sp02 was found to be 68 % upon arrival. Pt was placed on BiPAP secondary to acute respiratory failure. Pt has hx of ESBL in urine. Pt has had similar prior episodes. Unable to obtain ROS secondary to BIPAP and respiratory failure. I am consulted for Pulmonary/ ICU management. Allergies and Home Medications Allergies Coded Allergies: Sulfa (Sulfonamide Antibiotics) (Verified Allergy, Unknown, 05/24/16) divalproex sodium (Verified Allergy, Unknown, 05/24/16) tetracycline (Unverified Adverse Reaction, Unknown, 03/03/17) Home Medications Amlodipine Besylate 2.5 Mg Tablet, 2.5 MG PO DAILY, (Reported) Apixaban 5 Mg Tablet, 5 MG PO BID, (Reported) Ascorbate Calcium 500 Mg Tablet, 500 MG PO 1200, (Reported) Aspirin 81 Mg Tablet.dr, 81 MG PO HS, (Reported) Diltiazem HCl 120 Mg Cap.er.24h, 120 MG PO DAILY, (Reported) Docusate Sodium 100 Mg Capsule, 100 MG PO HS, (Reported) Fluticasone Propionate 16 Gm [place].susp, 2 SPRAYS NS BID, (Reported) Gabapentin 400 Mg Capsule, 400 MG PO TID, (Reported) Evelyn Root 250 Mg Capsule, 250 MG PO Q12H PRN for STOMACH UPSET, (Reported) Levothyroxine Sodium 125 Mcg Tablet, 125 MCG PO DAILY, (Reported) Lidocaine 5 Gm Cream..g., TOP TID PRN for SKIN SORE PAIN, (Reported) Liraglutide 0.6 Mg/0.1 Ml Pen.injctr, 1.8 MG SC DAILY, (Reported) Loratadine 10 Mg Tablet, 10 MG PO DAILY, (Reported) Miconazole Nitrate 142 Gm Cream..g., TP DAILY PRN for RASH, (Reported) Naphazoline HCl/Glycerin 15 Ml Drops, 2 DROPS OU BID, (Reported) Nystatin 15 Gm Oint...g., TOP BID, (Reported) Nystatin 60 Gm Powder, TOP BID, (Reported) Ondansetron HCl 8 Mg Tablet, 8 MG PO TID PRN for NAUSEA/VOMITING-1ST LINE, ( Reported) Oxybutynin Chloride 15 Mg Tab.er.24, 15 MG PO HS, (Reported) Oxycodone HCl/Acetaminophen 1 Each Tablet, 1 TAB PO EVERY 4-6 HOURS PRN for PAIN -MODERATE, (Reported) Polyethylene Glycol 3350 119 Gm Powder, 17 GM PO DAILY PRN for CONSTIPATION-2ND LINE, (Reported) Sevelamer Carbonate 800 Mg Tablet, 800 MG PO TIDWM, (Reported) Silver Sulfadiazine 25 Gm Cream..g., TOP BID, (Reported) Tamsulosin HCl 0.4 Mg Cap, 0.4 MG PO DAILY, (Reported) Triamcinolone Acet 15 Gm Oint, TOP BID, (Reported) Vortioxetine Hydrobromide 10 Mg Tablet, 10 MG PO DAILY, (Reported) LAST FILLED #85 7-18-17 Past Acejlvt-Frmttn-Duaazz Hx Patient Social History Alcohol Use: Denies Use Recreational Drug Use: No Smoking Status: Former Smoker Former Smoker, Quit: Aug 05, 1985 2nd Hand Smoke Exposure: No Recent Foreign Travel: No Contact w/Someone Who Travel: No Recent Infectious Disease Expo: No Recent Hopitalizations: Yes Physical Abuse: No Sexual Abuse: No Immunizations Up To Date Tetanus Booster (TDap): More than 5yrs PED Vaccines UTD: No Date of Pneumonia Vaccine: Nov 22, 2015 Date of Influenza Vaccine: Sep 15, 2017 Seasonal Allergies Seasonal Allergies: No Past Medical History Surgeries: Yes (left hip replacment, bilat shoulder sx, multiple lithotripsies) Cardiac, Gallbladder, Joint Replacement, Orthopedic, Pacemaker, Tonsillectomy, Vascular Surgery Respiratory: Yes (history of respiratory failure with hypoxia and hypercarbia) Asthma, Sleep Apnea, COPD Currently Using CPAP: Yes Currently Using BIPAP: No Cardiac: Yes ( PACEMAKER) Atrial Fibrillation, Chronic Edema/Swelling, Coronary Artery Disease, Heart Attack, Hypertension Neurological: Yes Neuropathy : No Reproductive Disorders: No Female Reproductive Disorders: Denies Sexually Transmitted Disease: No HIV/AIDS: No Genitourinary: Yes (CHRONIC HAYES, ESBL) Kidney Infection, Bladder Infection, Kidney Stones, Renal Failure, UTI-Chronic Gastrointestinal: Yes Abdominal Hernia, Gastroesophageal Reflux Musculoskeletal: Yes (CARPAL TUNNEL) Degenerate Disk Disease, Arthritis, Fibromyalgia, Chronic Back Pain, Fractures Endocrine: Yes (morbid obesity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) Cataract Loss of Vision: Right Hearing Impairment: Denies Cancer: No Psychosocial: Yes Depression Nursing Suicide Risk Score: 0 Integumentary: Yes (Previous skin breakdown) Recent Skin Changes Blood Disorders: No Adverse Reaction/Blood Tranf: No Family Medical History Arthritis G8 SISTER Bleeding disorder G8 BROTHER Cardiovascular disease G8 SISTER Diabetes mellitus 19 MOTHER FH: brain tumor 19 FATHER Hypertension G8 SISTER G8 SISTER G8 SISTER Kidney disease 19 MOTHER Thyroid disease G8 SISTER Heart Disease, CAD Over 55 Years Old, Hypertension, Renal Disease Review of Systems Time Seen by Provider: 06:40 Exam Exam Vital Signs Date Time Temp Pulse Resp B/P (MAP) Pulse Ox O2 Delivery O2 Flow Rate FiO2 05/10/18 06:00 84 16 119/68 (85) 94 NIV Bilevel 30.00 05/10/18 05:00 89 18 114/66 (82) 94 NIV Bilevel 30.00 05/10/18 04:36 89 17 93 30.00 05/10/18 04:30 99.7 05/10/18 04:00 91 11 164/76 (105) 94 NIV Bilevel 30.00 05/10/18 04:00 NIV Bilevel 30 05/10/18 03:00 89 12 176/96 (122) 94 NIV Bilevel 30.00 05/10/18 02:30 98.7 05/10/18 02:28 89 21 96 30.00 05/10/18 02:00 90 13 165/67 (99) 94 NIV Bilevel 30.00 05/10/18 01:00 90 05/10/18 01:00 90 12 144/91 (108) 95 NIV Bilevel 30.00 05/10/18 00:16 96 17 97 30.00 05/10/18 00:00 97 17 187/115 (139) 97 NIV Bilevel 30.00 05/10/18 00:00 NIV Bilevel 30 05/09/18 23:00 89 19 145/101 (116) 100 NIV Bilevel 30.00 05/09/18 22:20 76 13 100 40.00 05/09/18 21:00 80 05/09/18 21:00 80 15 131/76 (94) 96 NIV Bilevel 40.00 05/09/18 20:00 87 141/85 (103) 97 NIV Bilevel 40.00 05/09/18 19:52 97.8 89 16 141/85 (103) 96 NIV Bilevel 40.00 05/09/18 19:49 88 22 97 40.00 05/09/18 19:45 NIV Bilevel 40 05/09/18 19:30 89 15 147/86 97 NIV Bilevel 05/09/18 15:29 96.9 90 12 127/95 (106) 96 Nasal Cannula 05/09/18 15:26 97 36 95 40.00 05/09/18 15:05 96 Nasal Cannula 6.00 100 I & O 05/10/18 07:00 Intake Total 1920 ml Output Total 350 ml Balance 1570 ml General Appearance: Anxious, Moderate Distress Neck: Full Range of Motion, Non Tender, Supple Respiratory: Accessory Muscle Use, Decreased Breath Sounds, Respiratory Distress, Wheezing Cardiovascular: Regular Rate, Rhythm Capillary Refill: Less Than 3 Seconds Gastrointestinal: normal bowel sounds, non tender, soft Extremity: Normal Capillary Refill, Normal Inspection Neurologic/Psychiatric: Alert (alert but confused and lethargic) Skin: Normal Color, Warm/Dry Lymphatic: No Adenopathy Results Lab Laboratory Tests 05/09/18 15:05 Assessment/Plan Assessment/Plan Acute on chronic respiratory failure -Continue BiPAP -Use Vapotherm with off BiPAP -Monitor close Atelectasis Chronic UTI with hayes -HX of multi drug resistant -Last hospitalization bacteria in urine was resistent to everything except Gent and Ernesto. -Continue vanco and zosyn for now and await cultures Morbid obesity with OHS 255 CHERYLE SULLIVAN DO May 10, 2018 06:32
[2018-05-10 07:39] LABS: BASOPHILS % (AUTO) 0 % (0-10); EOSINOPHILS % (AUTO) 0 % (0-10); HEMATOCRIT 37 % (35-52); HEMOGLOBIN 11.7 G/DL (11.5-16.0); LYMPHOCYTES # (AUTO) 0.5 X 10^3 (1.0-4.0); LYMPHOCYTES % (AUTO) 4 % (12-44); MEAN CORPUSCULAR HEMOGLOBIN 34 PG (25-34); MEAN CORPUSCULAR HGB CONC 31 G/DL (32-36); MEAN CORPUSCULAR VOLUME 107 FL (80-99); MEAN PLATELET VOLUME 10.8 FL (7.4-10.4); MONOCYTES # (AUTO) 0.8 X 10^3 (0.0-1.0); MONOCYTES % (AUTO) 6 % (0-12); NEUTROPHILS # (AUTO) 11.7 X 10^3 (1.8-7.8); NEUTROPHILS % (AUTO) 90 % (42-75); PLATELET COUNT 162 10^3/uL (130-400); RED BLOOD COUNT 3.49 10^6/uL (4.35-5.85); RED CELL DISTRIBUTION WIDTH 14.9 % (10.0-14.5)
[2018-05-10 08:03] LABS: ALBUMIN 3.5 GM/DL (3.2-4.5); CALCIUM 9.2 MG/DL (8.5-10.1); CREATININE SERUM 2.81 MG/DL (0.60-1.30); MAGNESIUM 2.3 MG/DL (1.8-2.4); PHOSPHORUS 3.7 MG/DL (2.3-4.7); POTASSIUM 5.2 MMOL/L (3.6-5.0); TOTAL PROTEIN 6.8 GM/DL (6.4-8.2)
--- NOTE | 2018-05-10 08:40 | Diagnostic Imaging Report ---
INDICATION: Dyspnea. TECHNIQUE: Single view chest 03:07 a.m. CORRELATION STUDY: 05/09/2018. FINDINGS: Left-sided pacemaker is stable. Rather pronounced cardiac enlargement, prominent mediastinum persisting. Vascular congestion persists. Lung ferraro overall generally stable. Advanced degenerative changes of the right shoulder. IMPRESSION: 1. Stable cardiac enlargement. Vascular congestion, stable to perhaps slightly improved. Dictated by: Dictated on workstation # [id number]
--- NOTE | 2018-05-10 09:27 | Consultation-Cardiology ---
HPI-Cardiology Cardiology Consultation Date of Consultation 05/10/18 Date of Admission Time Seen by Provider: 09:16 Indication: proximal atrial fibrillation HPI 63 years old lady with history of paroxysmal atrial fibrillation, history of COPD, patient was admitted due to hypoxemia, her BiPAP was not connected to oxygen. She became hypoxemic and confused had change in mental status. Brought to the emergency room and admitted. This morning she is feeling better. Still having some dyspnea, denied any palpitation. Denied any syncope or near syncopal episodes. Denied any claudications. Home Medications & Allergies Allergies: Coded Allergies: Sulfa (Sulfonamide Antibiotics) (Verified Allergy, Unknown, 05/24/16) divalproex sodium (Verified Allergy, Unknown, 05/24/16) tetracycline (Unverified Adverse Reaction, Unknown, 03/03/17) Home Medication List Reviewed: Yes IVW-Dpacya-Phqdit Hx Patient Social History Alcohol Use: Denies Use Recreational Drug Use: No Smoking Status: Former Smoker 2nd Hand Smoke Exposure: No Recent Foreign Travel: No Recent Infectious Disease Expo: No Recent Hopitalizations: Yes Physical Abuse Screen: No Sexual Abuse: No Immunizations Up To Date Tetanus Booster (TDap): More than 5yrs Date of Pneumonia Vaccine: Nov 22, 2015 Date of Influenza Vaccine: Sep 15, 2017 Past Medical History Past medical history as described below Family Medical History Significant Family History: Heart Disease, CAD Over 55 Years Old, Hypertension , Renal Disease Family History: Arthritis G8 SISTER Bleeding disorder G8 BROTHER Cardiovascular disease G8 SISTER Diabetes mellitus 19 MOTHER FH: brain tumor 19 FATHER Hypertension G8 SISTER G8 SISTER G8 SISTER Kidney disease 19 MOTHER Thyroid disease G8 SISTER Constitutional: see HPI, malaise, weakness EENTM: see HPI, no symptoms reported Respiratory: see HPI, cough, dyspnea on exertion, orthopnea, short of breath Cardiovascular: see HPI, edema, palpitations Gastrointestinal: no symptoms reported, see HPI Genitourinary: see HPI, frequency, hematuria Musculoskeletal: see HPI, back pain, joint pain, muscle weakness Skin: see HPI, dryness, rash Psychiatric/Neurological: No Symptoms Reported, See HPI Reviewed Test Results Reviewed Test Results Lab Laboratory Tests Test 05/09/18 15:05 05/09/18 15:12 05/09/18 16:23 05/10/18 04:25 Range/Units White Blood Count 11.8 H 4.3-11.0 10^3/uL Red Blood Count 3.47 L 4.35-5.85 10^6/uL Hemoglobin 11.8 11.5-16.0 G/DL Hematocrit 37 35-52 % Mean Corpuscular Volume 107 H 80-99 FL Mean Corpuscular Hemoglobin 34 25-34 PG Mean Corpuscular Hemoglobin Concent 32 32-36 G/DL Red Cell Distribution Width 14.6 H 10.0-14.5 % Platelet Count 154 130-400 10^3/uL Mean Platelet Volume 11.1 H 7.4-10.4 FL Neutrophils (%) (Auto) 87 H 42-75 % Lymphocytes (%) (Auto) 3 L 12-44 % Monocytes (%) (Auto) 10 0-12 % Eosinophils (%) (Auto) 0 0-10 % Basophils (%) (Auto) 0 0-10 % Neutrophils # (Auto) 10.2 H 1.8-7.8 X 10^3 Lymphocytes # (Auto) 0.4 L 1.0-4.0 X 10^3 Monocytes # (Auto) 1.2 H 0.0-1.0 X 10^3 Eosinophils # (Auto) 0.0 0.0-0.3 10^3/uL Basophils # (Auto) 0.0 0.0-0.1 10^3/uL Neutrophils % (Manual) 74 % Lymphocytes % (Manual) 5 % Monocytes % (Manual) 10 % Eosinophils % (Manual) 0 % Basophils % (Manual) 0 % Band Neutrophils 11 % Blood Morphology Comment NORMAL Prothrombin Time 16.0 H 12.2-14.7 SEC INR Comment 1.3 0.8-1.4 Activated Partial Thromboplast Time 35 24-35 SEC Sodium Level 141 135-145 MMOL/L Potassium Level 5.0 3.6-5.0 MMOL/L Chloride Level 103 98-107 MMOL/L Carbon Dioxide Level 28 21-32 MMOL/L Anion Gap 10 5-14 MMOL/L Blood Urea Nitrogen 29 H 7-18 MG/DL Creatinine 2.29 H 0.60-1.30 MG/DL Estimat Glomerular Filtration Rate 21 BUN/Creatinine Ratio 13 Glucose Level 242 H 70-105 MG/DL Lactic Acid Level 1.63 0.50-2.00 MMOL/L Calcium Level 9.5 8.5-10.1 MG/DL Total Bilirubin 0.7 0.1-1.0 MG/DL Aspartate Amino Transf (AST/SGOT) 10 5-34 U/L Alanine Aminotransferase (ALT/SGPT) 22 0-55 U/L Alkaline Phosphatase 98 40-136 U/L C-Reactive Protein High Sensitivity 10.39 H 0.00-0.50 MG/DL B-Type Natriuretic Peptide 172.9 H <100.0 PG/ML Total Protein 6.7 6.4-8.2 GM/DL Albumin 3.6 3.2-4.5 GM/DL Blood Gas Puncture Site LEFT ULNAR RIGHT RADIAL Blood Gas Patient Temperature 96.9 99.7 Arterial Blood pH 7.31 *L 7.33 *L 7.37-7.43 Arterial Blood Partial Pressure CO2 62 H 60 H 35-45 MMHG Arterial Blood Partial Pressure O2 81 75 L 79-93 MMHG Arterial Blood HCO3 31 H 30 H 23-27 MMOL/L Arterial Blood Total CO2 32.9 H 31.9 H 21.0-31.0 MMOL/L Arterial Blood Oxygen Saturation 97 96 94-100 % Arterial Blood Base Excess 4.8 H 4.6 H -2.5-2.5 MMOL/L Arsh Test POSITIVE YES-POS Blood Gas Ventilator Setting NO NO Blood Gas Inspired Oxygen 6 L 30% Urine Color YELLOW Urine Clarity SLIGHTLY CLOUDY Urine pH 8 5-9 Urine Specific [place] 1.010 L 1.016-1.022 Urine Protein 3+ H NEGATIVE Urine Glucose (UA) NEGATIVE NEGATIVE Urine Ketones NEGATIVE NEGATIVE Urine Nitrite POSITIVE H NEGATIVE Urine Bilirubin NEGATIVE NEGATIVE Urine Urobilinogen NORMAL NORMAL MG/DL Urine Leukocyte Esterase 3+ H NEGATIVE Urine RBC (Auto) 5+ H NEGATIVE Urine RBC TNTC H /HPF Urine WBC 50-100 H /HPF Urine Crystals NONE /LPF Urine Bacteria LARGE H /HPF Urine Casts NONE /LPF Urine Mucus NEGATIVE /LPF Urine Culture Indicated YES Test 05/10/18 07:26 Range/Units White Blood Count 13.0 H 4.3-11.0 10^3/uL Red Blood Count 3.49 L 4.35-5.85 10^6/uL Hemoglobin 11.7 11.5-16.0 G/DL Hematocrit 37 35-52 % Mean Corpuscular Volume 107 H 80-99 FL Mean Corpuscular Hemoglobin 34 25-34 PG Mean Corpuscular Hemoglobin Concent 31 L 32-36 G/DL Red Cell Distribution Width 14.9 H 10.0-14.5 % Platelet Count 162 130-400 10^3/uL Mean Platelet Volume 10.8 H 7.4-10.4 FL Neutrophils (%) (Auto) 90 H 42-75 % Lymphocytes (%) (Auto) 4 L 12-44 % Monocytes (%) (Auto) 6 0-12 % Eosinophils (%) (Auto) 0 0-10 % Basophils (%) (Auto) 0 0-10 % Neutrophils # (Auto) 11.7 H 1.8-7.8 X 10^3 Lymphocytes # (Auto) 0.5 L 1.0-4.0 X 10^3 Monocytes # (Auto) 0.8 0.0-1.0 X 10^3 Eosinophils # (Auto) 0.0 0.0-0.3 10^3/uL Basophils # (Auto) 0.0 0.0-0.1 10^3/uL Sodium Level 140 135-145 MMOL/L Potassium Level 5.2 H 3.6-5.0 MMOL/L Chloride Level 105 98-107 MMOL/L Carbon Dioxide Level 21 21-32 MMOL/L Anion Gap 14 5-14 MMOL/L Blood Urea Nitrogen 33 H 7-18 MG/DL Creatinine 2.81 #H 0.60-1.30 MG/DL Estimat Glomerular Filtration Rate 17 BUN/Creatinine Ratio 12 Glucose Level 238 H 70-105 MG/DL Calcium Level 9.2 8.5-10.1 MG/DL Phosphorus Level 3.7 2.3-4.7 MG/DL Magnesium Level 2.3 1.8-2.4 MG/DL Total Bilirubin 1.0 0.1-1.0 MG/DL Aspartate Amino Transf (AST/SGOT) 13 5-34 U/L Alanine Aminotransferase (ALT/SGPT) 17 0-55 U/L Alkaline Phosphatase 91 40-136 U/L Total Protein 6.8 6.4-8.2 GM/DL Albumin 3.5 3.2-4.5 GM/DL Physical Exam Vital Signs Vital Signs - First Documented 05/09/18 05/09/18 05/09/18 15:05 15:26 15:29 Temp 96.9 Pulse 97 Resp 36 B/P (MAP) 127/95 (106) Pulse Ox 96 O2 Delivery Nasal Cannula O2 Flow Rate 6.00 FiO2 100 Capillary Refill : Less Than 3 Seconds General Appearance: WD/WN, Mild Distress Eyes: Bilateral Eye Normal Inspection, Bilateral Eye PERRL, Bilateral Eye EOMI HEENT: PERRL/EOMI, TMs Normal, Normal ENT Inspection, Pharynx Normal Neck: Full Range of Motion, Normal Inspection, Non Tender, Supple, Carotid Bruit Respiratory: Chest Non Tender, Normal Breath Sounds, No Accessory Muscle Use, No Respiratory Distress, Crackles Cardiovascular: Regular Rate, Rhythm, No Edema, No Gallop, No JVD, No Murmur Gastrointestinal: Normal Bowel Sounds, No Organomegaly, No Pulsatile Mass, Non Tender, Soft Back: Normal Inspection, No CVA Tenderness, No Vertebral Tenderness Extremity: Normal Capillary Refill, Normal Inspection, Normal Range of Motion, Non Tender, No Calf Tenderness, Pedal Edema Neurologic/Psychiatric: Alert, Oriented x3, No Motor/Sensory Deficits, Normal Mood/Affect Skin: Normal Color, Warm/Dry Lymphatic: No Adenopathy A/P-Cardiology Admission Diagnosis Acute respiratory failure AE of COPD Paroxysmal atrial fibrillation Diabetes mellitus Acute renal failure Assessment/Plan Acute respiratory failure due to exacerbation of COPD and hypoxemia, currently oxygenation is better, managed by Dr. Marx. Reporting improvement. Morbid obesity, obesity hypoventilation syndrome, hypercapnia. Status post acute exacerbation, improving at this time. Paroxysmal atrial fibrillation with bundle branch block. Intermittent. Has been maintained on Eliquis. Continue to monitor Acute on chronic renal failure. Continue to monitor renal function, managed by medical team Recurrent UTI, resistant to antibiotics. Morbid obesity Diabetes mellitus, followed and managed by primary care physician Electrolyte imbalance, hyperkalemia, managed by primary care physician Clinical Quality Measures DVT/VTE Risk/Contraindication: Risk Factor Score Per Nursin RFS Level Per Nursing on Admit: 4+=Very High EZIO GAY MD May 10, 2018 09:27
[2018-05-10] MEDS: APIXABAN 5 MG (ELIQUIS) TABLET PO SCH ×2 (10:30→20:53)
[2018-05-10] MEDS: MEROPENEM 2,000 MG in NS (IVPB) 100 ML IV SCH ×2 (10:30→22:39)
[2018-05-10] MEDS ORDERED: MENT118G TP (11:07)
[2018-05-10] MEDS ORDERED: ACET325T49 PO (11:07)
[2018-05-10] MEDS ORDERED: MAG30ORA2 PO (11:07)
[2018-05-10] MEDS ORDERED: VORT20TA PO (11:07)
[2018-05-10] MEDS ORDERED: SODI45SP4 NS (11:07)
[2018-05-10] MEDS ORDERED: MAGN400O7 PO (11:07)
[2018-05-10] MEDS ORDERED: CNC1KV IM (11:07)
--- NOTE | 2018-05-10 11:34 | History & Physicial (CHS) ---
HPI History of Present Illness: 63 yo female with history of obesity hypoventilation and sleep apnea, normally uses bipap and supplemental oxygen at night. She reports the night before last she fell asleep and her aides did not connect her oxygen. The next morning she was confused and somnolent. She was found to be hypercapneic and hypoxic on admission and with concern for urinary tract infection, although difficult to tell given her chronic indwelling hayes and bacteriuria. She was in [place] for right eye cataract surgery the two days prior to this. She has also noted some intermittent tremor and jerkiness in the last 2-3 weeks. Source: patient Date seen by provider: May 10, 2018 Time Seen by Provider: 08:05 Attending Physician Sandy Patel MD [facility] [place] Consult Date of Admission May 09, 2018 at 5:11 pm Home Medications Home Medications Reviewed patient Home Medication Reconciliation performed by pharmacy medication reconciliations filling technician and/or nursing. Patients Allergies have been reviewed. Allergies Coded Allergies: Sulfa (Sulfonamide Antibiotics) (Verified Allergy, Unknown, 05/24/16) divalproex sodium (Verified Allergy, Unknown, 05/24/16) tetracycline (Unverified Adverse Reaction, Unknown, 03/03/17) ICO-[place]-Dqzukr Hx Patient Social History Alcohol Use: Denies Use Recreational Drug Use: No Smoking Status: Former Smoker 2nd Hand Smoke Exposure: No Recent Foreign Travel: No Contact w/other who traveled: No Recent Hopitalizations: Yes Recent Infectious Disease Expo: No Physical Abuse Screen: No Sexual Abuse: No Immunizations Up To Date Tetanus Booster (TDap): More than 5yrs Date of Pneumonia Vaccine: Nov 22, 2015 Date of Influenza Vaccine: Sep 15, 2017 Past Medical History PMHx: 1. 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 Pacemaker for paroxysmal atrial fibrillation or sick sinus syndrome- unclear history from patient 3. Shattered left femur causing bedbound status 4. [place] 5. Chronic constipation 6. Hypothyroidism 7. HTN 8. Anxiety/depression 9. GERD/ulcers 10. T2DM 11. Prior AMI 12. CKD 13. PVD 14. Blindness in left eye PSurgHx: Left hip replacement Cataract surgery Pacemaker placement Family Medical History Significant Family History: Heart Disease, CAD Over 55 Years Old, DVT/PE, Hypertension, Renal Disease Family History: Arthritis G8 SISTER Bleeding disorder G8 BROTHER Cardiovascular disease G8 SISTER Diabetes mellitus 19 MOTHER FH: brain tumor 19 FATHER Hypertension G8 SISTER G8 SISTER G8 SISTER Kidney disease 19 MOTHER Thyroid disease G8 SISTER Review of Systems (CHC) Constitutional: No fever EENTM: no symptoms reported Respiratory: see HPI Cardiovascular: No chest pain, No palpitations Gastrointestinal: no symptoms reported Genitourinary: no symptoms reported Musculoskeletal: no symptoms reported Skin: no symptoms reported Psychiatric/Neurological: See HPI Reviewed Test Results Reviewed Test Results Lab Laboratory Tests Test 05/09/18 15:05 05/09/18 15:12 05/09/18 16:23 05/10/18 04:25 Range/Units White Blood Count 11.8 H 4.3-11.0 10^3/uL Red Blood Count 3.47 L 4.35-5.85 10^6/uL Hemoglobin 11.8 11.5-16.0 G/DL Hematocrit 37 35-52 % Mean Corpuscular Volume 107 H 80-99 FL Mean Corpuscular Hemoglobin 34 25-34 PG Mean Corpuscular Hemoglobin Concent 32 32-36 G/DL Red Cell Distribution Width 14.6 H 10.0-14.5 % Platelet Count 154 130-400 10^3/uL Mean Platelet Volume 11.1 H 7.4-10.4 FL Neutrophils (%) (Auto) 87 H 42-75 % Lymphocytes (%) (Auto) 3 L 12-44 % Monocytes (%) (Auto) 10 0-12 % Eosinophils (%) (Auto) 0 0-10 % Basophils (%) (Auto) 0 0-10 % Neutrophils # (Auto) 10.2 H 1.8-7.8 X 10^3 Lymphocytes # (Auto) 0.4 L 1.0-4.0 X 10^3 Monocytes # (Auto) 1.2 H 0.0-1.0 X 10^3 Eosinophils # (Auto) 0.0 0.0-0.3 10^3/uL Basophils # (Auto) 0.0 0.0-0.1 10^3/uL Neutrophils % (Manual) 74 % Lymphocytes % (Manual) 5 % Monocytes % (Manual) 10 % Eosinophils % (Manual) 0 % Basophils % (Manual) 0 % Band Neutrophils 11 % Blood Morphology Comment NORMAL Prothrombin Time 16.0 H 12.2-14.7 SEC INR Comment 1.3 0.8-1.4 Activated Partial Thromboplast Time 35 24-35 SEC Sodium Level 141 135-145 MMOL/L Potassium Level 5.0 3.6-5.0 MMOL/L Chloride Level 103 98-107 MMOL/L Carbon Dioxide Level 28 21-32 MMOL/L Anion Gap 10 5-14 MMOL/L Blood Urea Nitrogen 29 H 7-18 MG/DL Creatinine 2.29 H 0.60-1.30 MG/DL Estimat Glomerular Filtration Rate 21 BUN/Creatinine Ratio 13 Glucose Level 242 H 70-105 MG/DL Lactic Acid Level 1.63 0.50-2.00 MMOL/L Calcium Level 9.5 8.5-10.1 MG/DL Total Bilirubin 0.7 0.1-1.0 MG/DL Aspartate Amino Transf (AST/SGOT) 10 5-34 U/L Alanine Aminotransferase (ALT/SGPT) 22 0-55 U/L Alkaline Phosphatase 98 40-136 U/L C-Reactive Protein High Sensitivity 10.39 H 0.00-0.50 MG/DL B-Type Natriuretic Peptide 172.9 H <100.0 PG/ML Total Protein 6.7 6.4-8.2 GM/DL Albumin 3.6 3.2-4.5 GM/DL Blood Gas Puncture Site LEFT ULNAR RIGHT RADIAL Blood Gas Patient Temperature 96.9 99.7 Arterial Blood pH 7.31 *L 7.33 *L 7.37-7.43 Arterial Blood Partial Pressure CO2 62 H 60 H 35-45 MMHG Arterial Blood Partial Pressure O2 81 75 L 79-93 MMHG Arterial Blood HCO3 31 H 30 H 23-27 MMOL/L Arterial Blood Total CO2 32.9 H 31.9 H 21.0-31.0 MMOL/L Arterial Blood Oxygen Saturation 97 96 94-100 % Arterial Blood Base Excess 4.8 H 4.6 H -2.5-2.5 MMOL/L Arsh Test POSITIVE YES-POS Blood Gas Ventilator Setting NO NO Blood Gas Inspired Oxygen 6 L 30% Urine Color YELLOW Urine Clarity SLIGHTLY CLOUDY Urine pH 8 5-9 Urine Specific [place] 1.010 L 1.016-1.022 Urine Protein 3+ H NEGATIVE Urine Glucose (UA) NEGATIVE NEGATIVE Urine Ketones NEGATIVE NEGATIVE Urine Nitrite POSITIVE H NEGATIVE Urine Bilirubin NEGATIVE NEGATIVE Urine Urobilinogen NORMAL NORMAL MG/DL Urine Leukocyte Esterase 3+ H NEGATIVE Urine RBC (Auto) 5+ H NEGATIVE Urine RBC TNTC H /HPF Urine WBC 50-100 H /HPF Urine Crystals NONE /LPF Urine Bacteria LARGE H /HPF Urine Casts NONE /LPF Urine Mucus NEGATIVE /LPF Urine Culture Indicated YES Test 05/10/18 07:26 Range/Units White Blood Count 13.0 H 4.3-11.0 10^3/uL Red Blood Count 3.49 L 4.35-5.85 10^6/uL Hemoglobin 11.7 11.5-16.0 G/DL Hematocrit 37 35-52 % Mean Corpuscular Volume 107 H 80-99 FL Mean Corpuscular Hemoglobin 34 25-34 PG Mean Corpuscular Hemoglobin Concent 31 L 32-36 G/DL Red Cell Distribution Width 14.9 H 10.0-14.5 % Platelet Count 162 130-400 10^3/uL Mean Platelet Volume 10.8 H 7.4-10.4 FL Neutrophils (%) (Auto) 90 H 42-75 % Lymphocytes (%) (Auto) 4 L 12-44 % Monocytes (%) (Auto) 6 0-12 % Eosinophils (%) (Auto) 0 0-10 % Basophils (%) (Auto) 0 0-10 % Neutrophils # (Auto) 11.7 H 1.8-7.8 X 10^3 Lymphocytes # (Auto) 0.5 L 1.0-4.0 X 10^3 Monocytes # (Auto) 0.8 0.0-1.0 X 10^3 Eosinophils # (Auto) 0.0 0.0-0.3 10^3/uL Basophils # (Auto) 0.0 0.0-0.1 10^3/uL Sodium Level 140 135-145 MMOL/L Potassium Level 5.2 H 3.6-5.0 MMOL/L Chloride Level 105 98-107 MMOL/L Carbon Dioxide Level 21 21-32 MMOL/L Anion Gap 14 5-14 MMOL/L Blood Urea Nitrogen 33 H 7-18 MG/DL Creatinine 2.81 #H 0.60-1.30 MG/DL Estimat Glomerular Filtration Rate 17 BUN/Creatinine Ratio 12 Glucose Level 238 H 70-105 MG/DL Calcium Level 9.2 8.5-10.1 MG/DL Phosphorus Level 3.7 2.3-4.7 MG/DL Magnesium Level 2.3 1.8-2.4 MG/DL Total Bilirubin 1.0 0.1-1.0 MG/DL Aspartate Amino Transf (AST/SGOT) 13 5-34 U/L Alanine Aminotransferase (ALT/SGPT) 17 0-55 U/L Alkaline Phosphatase 91 40-136 U/L Total Protein 6.8 6.4-8.2 GM/DL Albumin 3.5 3.2-4.5 GM/DL Radiology CXR 05/09/18: IMPRESSION: Cardiomegaly and mild central pulmonary venous congestion. Physical Exam-(CHC) Physical Exam Vital Signs VS - Last 72 Hours, by Label 05/09/18 05/09/18 05/09/18 05/09/18 15:05 15:26 15:29 19:30 Temp 96.9 Pulse 97 90 89 Resp 36 12 15 B/P (MAP) 127/95 (106) 147/86 Pulse Ox 96 95 96 97 O2 Delivery Nasal Cannula Nasal Cannula NIV Bilevel O2 Flow Rate 6.00 40.00 FiO2 100 05/09/18 05/09/18 05/09/18 05/09/18 19:45 19:49 19:52 20:00 Temp 97.8 Pulse 88 89 87 Resp 22 16 B/P (MAP) 141/85 (103) 141/85 (103) Pulse Ox 97 96 97 O2 Delivery NIV Bilevel NIV Bilevel NIV Bilevel O2 Flow Rate 40.00 40.00 40.00 FiO2 40 05/09/18 05/09/18 05/09/18 05/09/18 21:00 21:00 22:20 23:00 Pulse 80 80 76 89 Resp 15 13 19 B/P (MAP) 131/76 (94) 145/101 (116) Pulse Ox 96 100 100 O2 Delivery NIV Bilevel NIV Bilevel O2 Flow Rate 40.00 40.00 30.00 05/10/18 05/10/18 05/10/18 05/10/18 00:00 00:00 00:16 01:00 Pulse 97 96 90 Resp 17 17 12 B/P (MAP) 187/115 (139) 144/91 (108) Pulse Ox 97 97 95 O2 Delivery NIV Bilevel NIV Bilevel NIV Bilevel O2 Flow Rate 30.00 30.00 30.00 FiO2 30 05/10/18 05/10/18 05/10/1805/10/18 01:00 02:00 02:28 02:30 Temp 98.7 Pulse 90 90 89 Resp 13 21 B/P (MAP) 165/67 (99) Pulse Ox 94 96 O2 Delivery NIV Bilevel O2 Flow Rate 30.00 30.00 05/10/18 05/10/1818 05/10/18 03:00 04:00 04:00 04:30 Temp 99.7 Pulse 89 91 Resp 12 11 B/P (MAP) 176/96 (122) 164/76 (105) Pulse Ox 94 94 O2 Delivery NIV Bilevel NIV Bilevel NIV Bilevel O2 Flow Rate 30.00 30.00 FiO2 30 05/10/18 05/10/18 05/10/18 05/10/18 04:36 05:00 06:00 06:52 Pulse 89 89 84 87 Resp 17 18 16 21 B/P (MAP) 114/66 (82) 119/68 (85) Pulse Ox 93 94 94 99 O2 Delivery NIV Bilevel NIV Bilevel O2 Flow Rate 30.00 30.00 30.00 30.00 05/10/18 05/10/1818 05/10/18 06:57 07:00 07:44 08:00 Pulse 95 93 98 Resp 14 14 B/P (MAP) 89/40 (56) 130/70 (90) Pulse Ox 93 94 92 O2 Delivery Vapotherm Vapotherm Vapotherm O2 Flow Rate 7.00 30.00 35.00 7.00 10.00 FiO2 30 05/10/1818 05/10/18 09:00 10:00 10:25 Pulse 95 96 Resp 20 20 B/P (MAP) 131/64 (86) 125/64 (84) Pulse Ox 93 92 93 O2 Delivery Vapotherm Vapotherm Vapotherm O2 Flow Rate 35.00 35.00 10.00 10.00 10.00 FiO2 35 Capillary Refill : Less Than 3 Seconds General Appearance: mild distress, obese Respiratory: lungs clear, normal breath sounds Cardiovascular: regular rate, rhythm, no murmur Gastrointestinal: normal bowel sounds, non tender, soft Extremities: pedal edema Neurologic/Psychiatric: alert, normal mood/affect, other (tremulous, occasional myoclonic jerk in arms) Skin: normal color Assessment/Plan Assessment/Plan Admission Dx Acute on chronic hypercapneic hypoxic respiratory failure Acute on chronic renal insufficiency Admission Status: Inpatient Order (span 2 midnights) Reason for Inpatient Admission: Patient with severe acute on chronic respiratory failure, acute on chronic renal insufficiency and multi drug resistant infection. Assessment & Plan Acute on chronic hypercapenic hypoxic respiratory failure with obesity hypoventilation and sleep apnea- improved with bipap in ED, continued in ICU with vapotherm when off bipap. Feeling better this am. Dr. Marx consulted, appreciate recommendations. No clear evidence of pneumonia, suspect decompensation due to lack of oxygen/bipap overnight as noted in HPI. Chronic indwelling hayes with possible UTI with history of multi-drug resistant organisms- started on zosyn and vancomycin empirically although one previous bacteria resistant- awaiting cultures. This am micro noted one positive blood culture with gram negative joan, change to meropenem. Acute on chronic renal insufficiency- unclear etiology, possibly secondary to infection, IVF and monitor Hyperkalemia- secondary to above, monitor, kayexalate if increasing Paroxysmal atrial fibrillation/sick sinus syndrome with pacemaker in place- Dr. Lockett consulted, appreciate recommendations. Continue home anticoagulation and cardizem. Hypertension Hypothyroidism- continue home med Anxiety/depression - continue home med DMII - diabetic diet, sliding scale insulin, hold Victoza DVT ppx- on apixaban Clinical Quality Measures DVT/VTE Risk/Contraindication: Risk Factor Score Per Nursin RFS Level Per Nursing on Admit: 4+=Very High SANDY PATEL MD May 10, 2018 11:34 am
[2018-05-10] MEDS ORDERED: SEVELAMER CARBONATE 800 MG PO SCH (12:00)
[2018-05-10] MEDS: oxyCODONE/APAP 10/325MG (PERCOCET 10) TABLET PO PRN ×2 (12:43→17:32)
[2018-05-10 13:09] LABS: CALCIUM 9.1 MG/DL (8.5-10.1); CREATININE SERUM 2.82 MG/DL (0.60-1.30); POTASSIUM 4.9 MMOL/L (3.6-5.0)
[2018-05-10] MEDS ORDERED: PATIENT MAY USE OWN MED,SINGLE MED PO SCH ×2 (16:15)
[2018-05-10] MEDS: inSUlin ASPART (NovoLOG) 1 UNIT/0.01 ML (CHARGE PER UNIT) SC SCH ×2 (16:52→20:53)
[2018-05-10] MEDS: SEVELAMER CARBONATE 800 MG TAB (RENVELA) NON-FORMULARY PO SCH (16:52)
[2018-05-10] MEDS ORDERED: TROUGH ORDER-PHARMACY XX NR (18:30)
[2018-05-10] MEDS ORDERED: VANCOMYCIN 1 GM/NS 250 ML IVPB IV SCH ×2 (19:30)
[2018-05-11] VITALS (11 sets, daily range): BP systolic 108–177; BP diastolic 52–98
[2018-05-11] MEDS: NS IV 1000 ML 1,000 ML IV SCH ×4 (00:19→16:12)
[2018-05-11] MEDS: oxyCODONE/APAP 10/325MG (PERCOCET 10) TABLET PO PRN ×4 (00:49→16:12)
[2018-05-11 03:38] LABS: BASOPHILS % (AUTO) 0 % (0-10); EOSINOPHILS # (AUTO) 0.1 10^3/uL (0.0-0.3); EOSINOPHILS % (AUTO) 1 % (0-10); HEMATOCRIT 32 % (35-52); HEMOGLOBIN 10.2 G/DL (11.5-16.0); LYMPHOCYTES # (AUTO) 0.6 X 10^3 (1.0-4.0); LYMPHOCYTES % (AUTO) 5 % (12-44); MEAN CORPUSCULAR HEMOGLOBIN 33 PG (25-34); MEAN CORPUSCULAR HGB CONC 32 G/DL (32-36); MEAN CORPUSCULAR VOLUME 105 FL (80-99); MEAN PLATELET VOLUME 11.2 FL (7.4-10.4); MONOCYTES # (AUTO) 0.8 X 10^3 (0.0-1.0); MONOCYTES % (AUTO) 6 % (0-12); NEUTROPHILS # (AUTO) 10.7 X 10^3 (1.8-7.8); NEUTROPHILS % (AUTO) 88 % (42-75); PLATELET COUNT 137 10^3/uL (130-400); RED BLOOD COUNT 3.05 10^6/uL (4.35-5.85); RED CELL DISTRIBUTION WIDTH 14.7 % (10.0-14.5); WHITE BLOOD COUNT 12.2 10^3/uL (4.3-11.0)
[2018-05-11 03:56] LABS: CALCIUM 8.5 MG/DL (8.5-10.1); CREATININE SERUM 3.04 MG/DL (0.60-1.30); MAGNESIUM 2.1 MG/DL (1.8-2.4); PHOSPHORUS 3.1 MG/DL (2.3-4.7); POTASSIUM 4.3 MMOL/L (3.6-5.0)
[2018-05-11] MEDS: POTASSIUM CL 10MEQ/50ML IVPB 50 ML IV SCH (05:03)
[2018-05-11] MEDS: MAGNESIUM 1 GM/100 ML IVPB 100 ML IV SCH (05:04)
[2018-05-11] MEDS: KCL 20 MEQ TAB (K-DUR) PO SCH (05:04)
--- NOTE | 2018-05-11 05:30 | Pulmonary Progress Note ---
Subjective Time Seen by Provider: 05:30 Subjective/Events-last exam PT is doing better however still requiring a lot of oxygen and complains of persistent SOB> Focused Exam Lactate Level 05/09/18 15:05: Lactic Acid Level 1.63 Exam Exam Vital Signs Date Time Temp Pulse Resp B/P (MAP) Pulse Ox O2 Delivery O2 Flow Rate FiO2 05/11/18 04:09 98.8 05/11/18 04:00 Vapotherm 6.00 40 05/11/18 04:00 92 15 130/69 (89) 90 Vapotherm 40.00 6.00 05/11/18 03:00 97 30 120/78 (92) 94 Vapotherm 40.00 6.00 05/11/18 02:00 92 17 169/80 (109) 93 Vapotherm 40.00 6.00 05/11/18 01:00 101 17 177/98 (124) 94 Vapotherm 40.00 6.00 05/11/18 01:00 101 05/11/18 00:10 97.8 05/11/18 00:00 94 11 162/85 (110) 91 Vapotherm 40.00 6.00 05/11/18 00:00 Vapotherm 6.00 40 05/10/18 23:00 93 26 134/66 (88) 87 Vapotherm 40.00 6.00 05/10/18 22:24 97 Vapotherm 8.00 40 05/10/18 22:00 80 16 122/108 (113) 97 Vapotherm 40.00 6.00 05/10/18 21:00 81 20 145/73 (97) 97 Vapotherm 35.00 10.00 05/10/18 20:25 97.0 05/10/18 20:00 Vapotherm 10.00 35 05/10/18 20:00 112 9 132/70 (90) 93 Vapotherm 35.00 10.00 05/10/18 19:00 80 11 125/80 (95) 94 Vapotherm 35.00 10.00 05/10/18 19:00 80 05/10/18 18:59 94 Vapotherm 10.00 40 05/10/18 18:00 87 19 126/82 (97) 97 Vapotherm 35.00 10.00 05/10/18 17:00 85 9 142/77 (98) 96 Vapotherm 35.00 10.00 05/10/18 16:00 90 18 140/77 (98) 92 Vapotherm 35.00 10.00 05/10/18 16:00 NIV Bilevel 30 05/10/18 15:00 92 18 131/70 (90) 92 Vapotherm 35.00 10.00 05/10/18 14:45 92 Vapotherm 10.00 40 05/10/18 14:00 96 19 127/67 (87) 93 Vapotherm 35.00 10.00 05/10/18 13:00 103 9 148/89 (108) 93 Vapotherm 35.00 10.00 05/10/18 13:00 103 05/10/18 12:00 93 21 141/80 (100) 92 Vapotherm 35.00 10.00 05/10/18 12:00 NIV Bilevel 30 05/10/18 11:00 93 20 134/72 (92) 93 Vapotherm 35.00 10.00 05/10/18 10:25 93 Vapotherm 10.00 35 05/10/18 10:00 96 20 125/64 (84) 92 Vapotherm 35.00 10.00 05/10/18 09:00 95 20 131/64 (86) 93 Vapotherm 35.00 10.00 05/10/18 08:00 NIV Bilevel 30 05/10/18 08:00 98 14 130/70 (90) 92 Vapotherm 35.00 10.00 05/10/18 07:44 93 05/10/18 07:00 95 14 89/40 (56) 94 Vapotherm 30.00 7.00 05/10/18 06:57 93 Vapotherm 7.00 30 05/10/18 06:52 87 21 99 30.00 05/10/18 06:00 84 16 119/68 (85) 94 NIV Bilevel 30.00 I & O 05/11/18 07:00 Intake Total 2280 ml Output Total 1375 ml Balance 905 ml General Appearance: WD/WN, Mild Distress HEENT: PERRL/EOMI, TMs Normal, Normal ENT Inspection, Pharynx Normal Neck: Full Range of Motion, Normal Inspection, Non Tender, Supple, Carotid Bruit Respiratory: Chest Non Tender, Normal Breath Sounds, No Accessory Muscle Use, No Respiratory Distress, Crackles Cardiovascular: Regular Rate, Rhythm, No Edema, No Gallop, No JVD, No Murmur Capillary Refill: Less Than 3 Seconds Gastrointestinal: normal bowel sounds, non tender, soft Extremity: Normal Capillary Refill, Normal Inspection, Normal Range of Motion, Non Tender, No Calf Tenderness, Pedal Edema Neurologic/Psychiatric: Alert, Oriented x3, No Motor/Sensory Deficits, Normal Mood/Affect Skin: Normal Color, Warm/Dry Lymphatic: No Adenopathy Results Lab Laboratory Tests 05/09/18 15:05 05/10/18 07:26 05/10/18 12:40 05/11/18 03:25 Assessment/Plan Assessment/Plan Acute on chronic respiratory failure -Continue BiPAP -Change Vapotherm to reg NC -Monitor close Atelectasis Chronic UTI with hayes -HX of multi drug resistant -Last hospitalization bacteria in urine was resistant to everything except Gent and Ernesto. -Continue vanco and zosyn for now and await cultures Morbid obesity with OHS transfer pt to regular 4th floor [address] CHERYLE SULLIVAN DO May 11, 2018 05:30
[2018-05-11] MEDS ORDERED: LEVOTHYROXINE 125 MCG (LEVOTHROID) TABLET PO SCH (06:30)
[2018-05-11] MEDS: SEVELAMER CARBONATE 800 MG TAB (RENVELA) NON-FORMULARY PO SCH ×3 (07:03→16:15)
--- NOTE | 2018-05-11 08:36 | Diagnostic Imaging Report ---
INDICATION: Dyspnea. COMPARISON: 05/10/2018. FINDINGS: A single frontal radiographic view of the chest was obtained and demonstrates persistent severe cardiomegaly. The pulmonary vasculature, however, is within normal limits. The left-sided pacemaker is again noted. The lungs are partially obscured secondary to overlying soft tissue attenuation but show no new acute abnormality. There is no large effusion or pneumothorax. The bony structures are stable. IMPRESSION: Cardiomegaly. No evidence of overt failure is seen on today's exam. Dictated by: Dictated on workstation # [id number]
[2018-05-11] MEDS: APIXABAN 5 MG (ELIQUIS) TABLET PO SCH (08:38)
[2018-05-11] MEDS ORDERED: MEROPENEM 500 MG in NS (IVPB) 100 ML IV SCH (09:00)
[2018-05-11] MEDS ORDERED: DILTIAZEM 120 MG (CARDIZEM CD) CAP PO SCH (09:00)
[2018-05-11] MEDS ORDERED: TRINTELLIX 20 MG TAB PO SCH (09:00)
[2018-05-11] MEDS ORDERED: ONDANSETRON 4 MG/2 ML (SDV) Z0FRAN IVP PRN (12:30)
--- NOTE | 2018-05-11 12:53 | Cardiology Progress Note ---
Subjective Date Seen by Provider: May 11, 2018 Time Seen by Provider: 12:51 Subjective/Events-last exam Patient is laying down in bed, feeling better, denied any chest pain. No palpitation. Review of Systems General: No Chills, No Night Sweats, No Fatigue, No Malaise, No Appetite, No Other HEENT: No Head Aches, No Visual Changes, No Eye Pain, No Ear Pain, No Dysphasia , No Sinus Congestion, No Post Nasal Drip, No Sore Throat, No Other Pulmonary: Dyspnea; No Cough, No Pleuritic Chest Pain, No Other Cardiovascular: Edema; No: Chest Pain, Palpitations, Orthopnea, Paroxysmal Noc. Dyspnea, Lt Headedness, Other Focused Exam Lactate Level 05/09/18 15:05: Lactic Acid Level 1.63 Objective-Cardiology Exam Last Set of Vital Signs Vital Signs 05/11/18 05/11/18 07:58 11:55 Temp 97.7 Pulse 82 Resp 18 B/P (MAP) 118/63 (81) Pulse Ox 98 O2 Delivery Nasal Cannula O2 Flow Rate 4.00 FiO2 40 Capillary Refill : Less Than 3 Seconds I&O Intake and Output 05/11/18 00:00 Intake Total 2280 ml Output Total 1550 ml Balance 730 ml Intake Oral 830 ml IV Total 1450 ml Output Urine Total 1550 ml # Emeses 1 General: Alert, Oriented X3, Cooperative HEENT: Atraumatic, PERRLA Neck: Supple, No JVD, No Thyromegaly Lungs: Clear to Auscultation, Normal Air Movement Heart: Regular Rate, Normal S1, Normal S2, No Murmurs Abdomen: Normal Bowel Sounds, Soft, No Tenderness, No Hepatosplenomegaly, No Masses Extremities: No Clubbing, No Cyanosis, No Edema, Normal Pulses, No Tenderness/ Swelling Skin: No Rashes, No Breakdown, No Significant Lesion Neuro: Normal Gait, Normal Speech, Strength at 5/5 X4 Ext, Normal Tone, Sensation Intact Psych/Mental Status: Mental Status NL, Mood NL Results Lab Laboratory Tests 05/11/18 03:25 A/P-Cardiology Admission Diagnosis Acute respiratory failure AE of COPD Paroxysmal atrial fibrillation Diabetes mellitus Acute renal failure Assessment/Plan Status post acute respiratory failure due to exacerbation of COPD and hypoxemia , currently oxygenation is better, managed by Dr. Marx. Morbid obesity, obesity hypoventilation syndrome, hypercapnia. Status post acute exacerbation, improving at this time. Paroxysmal atrial fibrillation with bundle branch block. Intermittent. Has been maintained on Eliquis. Continue to monitor Acute on chronic renal failure. Continue to monitor renal function, managed by medical team Recurrent UTI, resistant to antibiotics. Morbid obesity Diabetes mellitus, followed and managed by primary care physician Electrolyte imbalance, better, continue to monitor Clinical Quality Measures DVT/VTE Risk/Contraindication: Risk Factor Score Per Nursin RFS Level Per Nursing on Admit: 4+=Very High EZIO GAY MD May 11, 2018 12:53
--- NOTE | 2018-05-11 14:12 | Progress Note (SOAP) ---
Subjective Subjective/Events-last exam Afebrile, no acute events. Renal function worsening. Had some nausea around lunch, better with zofran. Review of Systems Date Seen by Provider: May 11, 2018 Time Seen by Provider: 13:10 Focused Exam Lactate Level 05/09/18 15:05: Lactic Acid Level 1.63 Objective Exam Last Set of Vital Signs Vital Signs Date Time Temp Pulse Resp B/P (MAP) Pulse Ox O2 Delivery O2 Flow Rate FiO2 05/11/18 11:55 97.7 82 18 118/63 (81) 98 Nasal Cannula 4.00 05/11/18 07:58 40 Capillary Refill : Less Than 3 Seconds I&O Intake and Output 05/11/18 00:00 Intake Total 2280 ml Output Total 1550 ml Balance 730 ml Intake Oral 830 ml IV Total 1450 ml Output Urine Total 1550 ml # Emeses 1 General: Alert, No Acute Distress Neuro: Normal Speech Psych/Mental Status: Mental Status NL Results/Procedures Lab Laboratory Tests 05/10/18 16:39: Glucometer 241H 05/10/18 18:55: Vancomycin Level Trough 14.7 05/10/18 20:50: Glucometer 198H 05/11/18 03:25: White Blood Count 12.2H, Red Blood Count 3.05L, Hemoglobin 10.2L, Hematocrit 32L , Mean Corpuscular Volume 105H, Mean Corpuscular Hemoglobin 33, Mean Corpuscular Hemoglobin Concent 32, Red Cell Distribution Width 14.7H, Platelet Count 137, Mean Platelet Volume 11.2H, Neutrophils (%) (Auto) 88H, Lymphocytes ( %) (Auto) 5L, Monocytes (%) (Auto) 6, Eosinophils (%) (Auto) 1, Basophils (%) ( Auto) 0, Neutrophils # (Auto) 10.7H, Lymphocytes # (Auto) 0.6L, Monocytes # ( Auto) 0.8, Eosinophils # (Auto) 0.1, Basophils # (Auto) 0.0, Sodium Level 139, Potassium Level 4.3, Chloride Level 105, Carbon Dioxide Level 23, Anion Gap 11, Blood Urea Nitrogen 38H, Creatinine 3.04H, Estimat Glomerular Filtration Rate 15 , BUN/Creatinine Ratio 13, Glucose Level 259H, Calcium Level 8.5, Phosphorus Level 3.1, Magnesium Level 2.1 05/11/18 11:57: Glucometer 284H Microbiology 05/09/18 Blood Culture - Preliminary, Resulted No growth 05/09/18 MRSA Screen - Final, Complete MRSA not isolated 05/09/18 Urine Culture - Preliminary, Resulted See Comments Radiology CXR 05/09/18: IMPRESSION: Cardiomegaly and mild central pulmonary venous congestion. Assessment/Plan Assessment/Plan Assessment & Plan Acute on chronic hypercapenic hypoxic respiratory failure with obesity hypoventilation and sleep apnea- improved with bipap in ED, continued in ICU with vapotherm when off bipap. Feeling better this am. Dr. Marx consulted, appreciate recommendations. No clear evidence of pneumonia, suspect decompensation due to lack of oxygen/bipap overnight as noted in HPI. 05/11- continued improvement. Chronic indwelling ahyes with possible UTI with history of multi-drug resistant organisms- started on zosyn and vancomycin empirically although one previous bacteria resistant- awaiting cultures. This am micro noted one positive blood culture with gram negative joan, change to meropenem. 05/11 blood cx prelim with proteus sensitive to meropenem, urine culture in progress Acute on chronic renal insufficiency- unclear etiology, possibly secondary to infection, IVF and monitor 05/11- worsening, discussed with her today that if it continues to progress may need to consider transfer to a facility with Nephrology/dialysis capabilities. Electrolytes okay, will recheck this afternoon. Hyperkalemia- secondary to above, monitor, kayexalate if increasing 05/11 improved this am, monitor closely Paroxysmal atrial fibrillation/sick sinus syndrome with pacemaker in place- Dr. Lockett consulted, appreciate recommendations. Continue home anticoagulation and cardizem. Hypertension Hypothyroidism- continue home med Anxiety/depression - continue home med DMII - diabetic diet, sliding scale insulin, hold Victoza DVT ppx- on apixaban Clinical Quality Measures DVT/VTE Risk/Contraindication: Risk Factor Score Per Nursin RFS Level Per Nursing on Admit: 4+=Very High SANDY PATEL MD May 11, 2018 2:12 pm
[2018-05-11 15:30] LABS: CALCIUM 8.7 MG/DL (8.5-10.1); CREATININE SERUM 3.21 MG/DL (0.60-1.30); POTASSIUM 4.4 MMOL/L (3.6-5.0)
--- NOTE | 2018-05-11 16:11 | Discharge Summary ---
Diagnosis/Chief Complaint Date of Admission May 09, 2018 at 17:11 Date of Discharge May 11, 2018 Admission Diagnosis Admission Diagnosis Acute on chronic hypercapneic hypoxic respiratory failure Acute on chronic renal insufficiency Discharge Diagnosis Acute on chronic hypercapenic hypoxic respiratory failure with obesity hypoventilation and sleep apnea- improved with bipap in ED, continued in ICU with vapotherm when off bipap. Feeling better this am. Dr. Marx consulted, appreciate recommendations. No clear evidence of pneumonia, suspect decompensation due to lack of oxygen/bipap overnight as noted in HPI. 05/11- continued improvement, on 4 lpm nasal cannula currently Chronic indwelling hayes with possible UTI with history of multi-drug resistant organisms- started on zosyn and vancomycin empirically although one previous bacteria resistant- awaiting cultures. This am micro noted one positive blood culture with gram negative joan, change to meropenem. 05/11 blood cx prelim with proteus sensitive to meropenem, urine culture in progress Acute on chronic renal insufficiency- unclear etiology, possibly secondary to infection, IVF and monitor 05/11- worsening, discussed with her today that if it continues to progress may need to consider transfer to a facility with Nephrology/dialysis capabilities. Electrolytes okay, will recheck this afternoon. 05/11 pm- Creatinine up to 3.21, discussed with Jonas and accepted in transfer. Hyperkalemia- secondary to above, monitor, kayexalate if increasing 05/11 improved this am, monitor closely Paroxysmal atrial fibrillation/sick sinus syndrome with pacemaker in place- Dr. Lockett consulted, appreciate recommendations. Continue home anticoagulation and cardizem. Hypertension Hypothyroidism- continue home med Anxiety/depression - continue home med DMII - diabetic diet, sliding scale insulin, hold Victoza DVT ppx- on apixaban Chief Complaint/HPI Chief Complaint/HPI 63 yo female with history of obesity hypoventilation and sleep apnea, normally uses bipap and supplemental oxygen at night. She reports the night before last she fell asleep and her aides did not connect her oxygen. The next morning she was confused and somnolent. She was found to be hypercapneic and hypoxic on admission and with concern for urinary tract infection, although difficult to tell given her chronic indwelling hayes and bacteriuria. She was in [place] for right eye cataract surgery the two days prior to this. She has also noted some intermittent tremor and jerkiness in the last 2-3 weeks. Discharge Summary-Simple/Stand Consultations Dr. Marx (Pulm) Dr. Lockett (Cardiology) Discharge Physical Examination Allergies: Coded Allergies: Sulfa (Sulfonamide Antibiotics) (Verified Allergy, Unknown, 05/24/16) divalproex sodium (Verified Allergy, Unknown, 05/24/16) tetracycline (Unverified Adverse Reaction, Unknown, 03/03/17) Vitals & I&Os Vital Sign - Last 12Hours Date Time Temp Pulse Resp B/P (MAP) Pulse Ox O2 Delivery O2 Flow Rate FiO2 05/11/18 11:55 97.7 82 18 118/63 (81) 98 Nasal Cannula 4.00 05/11/18 07:58 40 Intake and Output 05/11/18 00:00 Intake Total 1080 ml Output Total 925 ml Balance 155 ml Hospital Course See final discharge diagnosis. Labs Laboratory Tests Test 05/09/18 16:23 05/10/18 04:25 05/10/18 07:26 05/10/18 12:40 Range/Units Urine Color YELLOW Urine Clarity SLIGHTLY CLOUDY Urine pH 8 5-9 Urine Specific [place] 1.010 L 1.016-1.022 Urine Protein 3+ H NEGATIVE Urine Glucose (UA) NEGATIVE NEGATIVE Urine Ketones NEGATIVE NEGATIVE Urine Nitrite POSITIVE H NEGATIVE Urine Bilirubin NEGATIVE NEGATIVE Urine Urobilinogen NORMAL NORMAL MG/DL Urine Leukocyte Esterase 3+ H NEGATIVE Urine RBC (Auto) 5+ H NEGATIVE Urine RBC TNTC H /HPF Urine WBC 50-100 H /HPF Urine Crystals NONE /LPF Urine Bacteria LARGE H /HPF Urine Casts NONE /LPF Urine Mucus NEGATIVE /LPF Urine Culture Indicated YES Blood Gas Puncture Site RIGHT RADIAL Blood Gas Patient Temperature 99.7 Arterial Blood pH 7.33 *L 7.37-7.43 Arterial Blood Partial Pressure CO2 60 H 35-45 MMHG Arterial Blood Partial Pressure O2 75 L 79-93 MMHG Arterial Blood HCO3 30 H 23-27 MMOL/L Arterial Blood Total CO2 31.9 H 21.0-31.0 MMOL/L Arterial Blood Oxygen Saturation 96 94-100 % Arterial Blood Base Excess 4.6 H -2.5-2.5 MMOL/L Arsh Test YES-POS Blood Gas Ventilator Setting NO Blood Gas Inspired Oxygen 30% White Blood Count 13.0 H 4.3-11.0 10^3/uL Red Blood Count 3.49 L 4.35-5.85 10^6/uL Hemoglobin 11.7 11.5-16.0 G/DL Hematocrit 37 35-52 % Mean Corpuscular Volume 107 H 80-99 FL Mean Corpuscular Hemoglobin 34 25-34 PG Mean Corpuscular Hemoglobin Concent 31 L 32-36 G/DL Red Cell Distribution Width 14.9 H 10.0-14.5 % Platelet Count 162 130-400 10^3/uL Mean Platelet Volume 10.8 H 7.4-10.4 FL Neutrophils (%) (Auto) 90 H 42-75 % Lymphocytes (%) (Auto) 4 L 12-44 % Monocytes (%) (Auto) 6 0-12 % Eosinophils (%) (Auto) 0 0-10 % Basophils (%) (Auto) 0 0-10 % Neutrophils # (Auto) 11.7 H 1.8-7.8 X 10^3 Lymphocytes # (Auto) 0.5 L 1.0-4.0 X 10^3 Monocytes # (Auto) 0.8 0.0-1.0 X 10^3 Eosinophils # (Auto) 0.0 0.0-0.3 10^3/uL Basophils # (Auto) 0.0 0.0-0.1 10^3/uL Sodium Level 140 140 135-145 MMOL/L Potassium Level 5.2 H 4.9 3.6-5.0 MMOL/L Chloride Level 105 103 98-107 MMOL/L Carbon Dioxide Level 21 26 21-32 MMOL/L Anion Gap 14 11 5-14 MMOL/L Blood Urea Nitrogen 33 H 34 H 7-18 MG/DL Creatinine 2.81 #H 2.82 H 0.60-1.30 MG/DL Estimat Glomerular Filtration Rate 17 17 BUN/Creatinine Ratio 12 12 Glucose Level 238 H 252 H 70-105 MG/DL Calcium Level 9.2 9.1 8.5-10.1 MG/DL Phosphorus Level 3.7 2.3-4.7 MG/DL Magnesium Level 2.3 1.8-2.4 MG/DL Total Bilirubin 1.0 0.1-1.0 MG/DL Aspartate Amino Transf (AST/SGOT) 13 5-34 U/L Alanine Aminotransferase (ALT/SGPT) 17 0-55 U/L Alkaline Phosphatase 91 40-136 U/L Total Protein 6.8 6.4-8.2 GM/DL Albumin 3.5 3.2-4.5 GM/DL Test 05/10/18 16:39 05/10/18 18:55 05/10/18 20:50 05/11/18 03:25 Range/Units Glucometer 241 H 198 H 70-110 MG/DL Vancomycin Level Trough 14.7 10.0-20.0 UG/ML White Blood Count 12.2 H 4.3-11.0 10^3/uL Red Blood Count 3.05 L 4.35-5.85 10^6/uL Hemoglobin 10.2 L 11.5-16.0 G/DL Hematocrit 32 L 35-52 % Mean Corpuscular Volume 105 H 80-99 FL Mean Corpuscular Hemoglobin 33 25-34 PG Mean Corpuscular Hemoglobin Concent 32 32-36 G/DL Red Cell Distribution Width 14.7 H 10.0-14.5 % Platelet Count 137 130-400 10^3/uL Mean Platelet Volume 11.2 H 7.4-10.4 FL Neutrophils (%) (Auto) 88 H 42-75 % Lymphocytes (%) (Auto) 5 L 12-44 % Monocytes (%) (Auto) 6 0-12 % Eosinophils (%) (Auto) 1 0-10 % Basophils (%) (Auto) 0 0-10 % Neutrophils # (Auto) 10.7 H 1.8-7.8 X 10^3 Lymphocytes # (Auto) 0.6 L 1.0-4.0 X 10^3 Monocytes # (Auto) 0.8 0.0-1.0 X 10^3 Eosinophils # (Auto) 0.1 0.0-0.3 10^3/uL Basophils # (Auto) 0.0 0.0-0.1 10^3/uL Sodium Level 139 135-145 MMOL/L Potassium Level 4.3 3.6-5.0 MMOL/L Chloride Level 105 98-107 MMOL/L Carbon Dioxide Level 23 21-32 MMOL/L Anion Gap 11 5-14 MMOL/L Blood Urea Nitrogen 38 H 7-18 MG/DL Creatinine 3.04 H 0.60-1.30 MG/DL Estimat Glomerular Filtration Rate 15 BUN/Creatinine Ratio 13 Glucose Level 259 H 70-105 MG/DL Calcium Level 8.5 8.5-10.1 MG/DL Phosphorus Level 3.1 2.3-4.7 MG/DL Magnesium Level 2.1 1.8-2.4 MG/DL Test 05/11/18 11:57 05/11/18 15:10 Range/Units Glucometer 284 H 70-110 MG/DL Sodium Level 139 135-145 MMOL/L Potassium Level 4.4 3.6-5.0 MMOL/L Chloride Level 105 98-107 MMOL/L Carbon Dioxide Level 25 21-32 MMOL/L Anion Gap 9 5-14 MMOL/L Blood Urea Nitrogen 41 H 7-18 MG/DL Creatinine 3.21 H 0.60-1.30 MG/DL Estimat Glomerular Filtration Rate 15 BUN/Creatinine Ratio 13 Glucose Level 315 H 70-105 MG/DL Calcium Level 8.7 8.5-10.1 MG/DL Radiology Reviewed CXR 05/09/18: IMPRESSION: Cardiomegaly and mild central pulmonary venous congestion. Discharge Condition at discharge Worsening renal insufficiency, transferred to [place] Clinical Quality Measures DVT/VTE Risk/Contraindication: Risk Factor Score Per Nursin RFS Level Per Nursing on Admit: 4+=Very High SANDY PATEL MD May 11, 2018 16:11
[2018-05-11] MEDS ORDERED: TROUGH ORDER-PHARMACY XX NR (18:30)
== END 2018-05-11 18:53 | disposition short-term general hospital (02) | DRG 189 ==
LOC: EDUNIT# 14:42 → ER 14:43 → ICU 17:11 → 4TH 05-11 11:27
PROVIDERS: ADMIT Family Medicine; ATTEND Family Medicine
DX: J96.21 Acute and chronic respiratory failure with hypoxia (principal); J96.22 Acute and chronic respiratory failure with hypercapnia; J44.1 Chronic obstructive pulmonary disease with (acute) exacerbation; I48.0 Paroxysmal atrial fibrillation; T83.511A Infection and inflammatory reaction due to indwelling urethral catheter, initial encounter; N39.0 Urinary tract infection, site not specified; R82.71 Bacteriuria; N17.9 Acute kidney failure, unspecified; J98.11 Atelectasis; E66.2 Morbid (severe) obesity with alveolar hypoventilation; I12.9 Hypertensive chronic kidney disease with stage 1 through stage 4 chronic kidney disease, or unspecified chronic kidney disease; N18.9 Chronic kidney disease, unspecified; I25.10 Atherosclerotic heart disease of native coronary artery without angina pectoris; I25.2 Old myocardial infarction; E11.40 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 with diabetic neuropathy, unspecified; E11.51 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 with diabetic peripheral angiopathy without gangrene; E03.9 Hypothyroidism, unspecified; E87.5 Hyperkalemia; R25.1 Tremor, unspecified; K21.9 Gastro-esophageal reflux disease without esophagitis; F41.9 Anxiety disorder, unspecified; F32.9 Major depressive disorder, single episode, unspecified; M19.91 Primary osteoarthritis, unspecified site; M79.7 Fibromyalgia; M54.9 Dorsalgia, unspecified; Z87.891 Personal history of nicotine dependence; Z95.0 Presence of cardiac pacemaker; Z79.01 Long term (current) use of anticoagulants; Z99.81 Dependence on supplemental oxygen
CPT/HCPCS: 36415; 36600; 71045; 80048; 80053; 80202; 81000; 82805; 82962; 83605; 83735; 83880; 84100; 85007; 85025; 85027; 85610; 85730; 86141; 87040; 87077; 87081; 87088; 87186; 87804; 93005; 93041; 94660; 94664; 96365; 96367

== ENCOUNTER 2018-09-17 19:07 | Inpatient (IN) | payer MEDICARE ==
[~2018-09-17] VITALS: Ht 167.6 cm; Wt 174.7 kg
[~2018-09-17 19:07] MED LIST changes: +ACET325T49 PO; -AMLO2.5T PO; +AMLO2.5T3 PO; -AMLO5TAB2 PO; +AMLO5TAB7 PO; +CNC1KV IM; +MAG30ORA2 PO; +MAGN400O7 PO; +MENT118G TP; +SODI45SP4 NS; +TETR-37 PO; -TETR500C2 PO; +VORT20TA PO
[2018-09-17] MEDS ORDERED: NS IV 1000 ML 1,000 ML IV ONE (19:16)
--- OUTSIDE RECORDS SUMMARY | 2018-09-17 19:16 | XMS REPORT | Clinical Summary ---
Author Author [facility] Organization [facility] Address Unknown Phone Unavailable Care Team Providers Care [facility] Apprentice Name Role Phone RafalAicha milton [employer] PCP Source Comments Some departments are not documenting in the electronic medical record. If you do not see the information that you expected, contact Release of Information in the Health Information Management department at [phone] for further assistance in locating additional records.[facility] Allergies Active Allergy Reactions Severity Noted Date Comments Divalproex SEIZURES High 02/02/2018 Sulfa (Sulfonamide HIVES, NAUSEA AND Medium 02/02/2018 Antibiotics) VOMITING Tetracycline RASH, NAUSEA AND VOMITING Medium 02/02/2018 Current Medications Prescription Sig. Disp. Refills Start End Date Status Date pregabalin (LYRICA) 75 mg Take 75 mg by mouth twice Active capsule daily. Cranberry Extract Take 1 tablet by mouth Active (CRANBERRY) 450 mg tab three times daily. gabapentin (NEURONTIN) Take 400 mg by mouth Active 400 mg capsule twice daily. gabapentin (NEURONTIN) Take 800 mg by mouth at Active 800 mg tablet bedtime daily. zolpidem (AMBIEN) 5 mg Take 5 mg by mouth at Active tablet bedtime daily. LORazepam (ATIVAN) 0.5 mg Take 1 tablet by mouth Active tablet daily. capsaicin (CAPZASIN-HP) Apply topically to Active 0.1 % topical cream affected area at bedtime daily. Apply to bilateral feet bisacodyl (DULCOLAX) 5 mg Take 10 mg by mouth daily Active tablet as needed for Constipation. naphazoline (NAPHCON) 0.1 Place 2 drops into or Active % ophthalmic solution around eye(s) four times daily. oxybutynin XL (DITROPAN Take 10 mg by mouth at Active XL) 10 mg tablet bedtime daily. vortioxetine(+) Take 10 mg by mouth Active (TRINTELLIX) 20 mg tablet daily. menthol (BIOFREEZE Apply topically to Active (MENTHOL)) 4 % gel affected area three times daily as needed. acetaminophen (TYLENOL) Take 650 mg by mouth Active 325 mg tablet every 4 hours as needed for Pain. lidocaine HCl (ASPERCREME Apply topically to Active (LIDOCAINE)) 4 % crea affected area twice cream daily. alum/mag hydroxide/simeth Take 30 mL by mouth every Active (MYLANTA, MAALOX PLUS) 4 hours as needed. 200/200/20 mg/5 mL susp oral suspension sodium chloride (SEA Apply 2 sprays to each Active MIST) 0.65 % nasal spray nostril as directed every 4 hours as needed. cyanocobalamin (VITAMIN Inject 1 mL into the Active B-12, RUBRAMIN) 1,000 muscle every 30 days. mcg/mL injection oxyCODONE/acetaminophen Take 1 tablet by mouth Active (PERCOCET; ENDOCET) four times daily 10/325 mg tablet polyethylene glycol 3350 Take 17 g by mouth daily. Active (GLYCOLAX; MIRALAX) 17 gram/dose powder milk of magnesia (CONC) Take 30 mL by mouth daily Active 2,400 mg/10 mL oral as needed for Heartburn. suspension liraglutide(+) (VICTOZA Inject 1.8 mg under the Active 3-EDDIE) 0.6 mg/0.1 mL (18 skin daily. mg/3 mL) pnij ascorbic acid (VITAMIN C) Take 500 mg by mouth Active 500 mg tablet daily. docusate (COLACE) 100 mg Take 100 mg by mouth at Active capsule bedtime daily. apixaban (ELIQUIS) 5 mg Take 5 mg by mouth twice Active tablet daily. fluticasone (FLONASE) 50 Apply 1 spray to each Active mcg/actuation nasal spray nostril as directed twice daily. Shake bottle gently before using. levothyroxine (SYNTHROID) Take 125 mcg by mouth Active 125 mcg tablet daily 30 minutes before breakfast. miconazole (MICOTIN) 2 % Apply topically to Active topical cream affected area as Needed. ondansetron (ZOFRAN ODT) Dissolve 8 mg by mouth Active 8 mg rapid dissolve three times daily as tablet needed for Nausea or Vomiting. Place on tongue to disolve. nystatin (NYSTOP) 100,000 Apply topically to Active unit/g topical powder affected area twice daily. sevelamer(+) (RENAGEL) Take 800 mg by mouth Active 800 mg tablet three times daily. Take with food. nystatin (MYCOSTATIN) Apply topically to Active 100,000 unit/g topical affected area twice ointment daily. silver sulfADIAZINE Apply topically to Active (THERMAZINE) 1 % topical affected area twice cream daily. triamcinolone acetonide Apply topically to Active (KENALOG) 0.1 % topical affected area twice ointment daily. lalo root (LALO Take 1 capsule by mouth Active (ZINGIBER OFFICINALIS)) every 12 hours as needed. 550 mg cap diltiazem CD (CARTIA XT) Take 120 mg by mouth Active 120 mg capsule daily. Notify MD for SBP <90 or >200 or pulse <50 prednisolone acetate Apply 1 drop to right eye 5 mL 20 Active (PRED FORTE) 1 % as directed four times 18 ophthalmic suspension daily. ketorolac (ACULAR) 0.5 % Apply 1 drop to right eye 5 mL 0 15/20 Active ophthalmic solution as directed four times 18 daily. 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 I am recommending that we proceed with cataract extraction with intraocular lens implantation. I reviewed the risks benefits and alternatives of this procedure which include but are not limited to bleeding, pain, infection, loss of vision, and the potential need for further surgery. The use of eyeglasses after cataract surgery and resident involvement was also reviewed. The patient understands these risks and agrees to surgery. Trauma: No LASIK: No Flomax: No Anticoagulation: Yes-need to stop Can lay flat:Unsure Diabetes mellitus:Y-well controlled Dilates: 7mm Other Considerations: DENSE cataract, extra viscoat, trypan, expect high CDE Target: plano Plan to operate on the OD only. Anesthesia: RBB Overweight with multiple co-morbitities. Will need to see PAT before. Discussed high risk for complications. Pt agrees to proceed. Will need to D/C anticoagulation medicine prior to surgery. will send note to PCP. 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 with complication (HCC) 02/02/2018 Last Assessment & Plan: No sign of diabetic retinopathy in the left eye Discussed importance of good blood glucose control and follow-up with PCP Unable to see posterior pole of right eye Dry eye syndrome of bilateral lacrimal glands 02/02/2018 Last Assessment & Plan: Start ATs QID Family History Medical History Relation Name Comments Amblyopia Brother Cataract Maternal Grandmother Cataract Mother Diabetes Mother Autoimmune Disease Neg Hx Blindness Neg Hx Coronary Artery Disease Neg Hx Glaucoma Neg Hx Macular Degen Neg Hx Retinal Detachment Neg Hx Relation Name Status Comments Brother Maternal Grandmother Mother Social History Tobacco Use Types Packs/Day Years Used Date Former Smoker 2 20 Quit: 1988 Smokeless Tobacco: Never Used Alcohol Use Drinks/Week oz/Week Comments No Sex Assigned at Date Recorded Not on file Last Filed Vital Signs Vital Sign Reading Time Taken Blood Pressure 134/65 05/06/2018 9:30 AM CDT Pulse 76 05/06/2018 9:30 AM CDT Temperature 36.6 C (97.8 F) 05/06/2018 9:30 AM CDT Respiratory Rate - - Oxygen Saturation 97% 05/06/2018 9:30 AM CDT Inhaled Oxygen - - Concentration Weight 152.4 kg (336 lb) 05/05/2018 6:00 PM CDT Height 172.7 cm (5' 7.99") 05/05/2018 6:00 PM CDT Body Mass Index 51.1 05/05/2018 6:00 PM CDT Plan of Treatment Health Maintenance Due Date Last Done Comments HEPATITIS C SCREENING 1954 PHYSICAL (COMPREHENSIVE) 1961 EXAM PERTUSSIS VACCINE 1965 HIV SCREENING 1969 TETANUS VACCINE 1971 FOOT EXAM 1972 HBA1C 1972 MICROALBUMIN 1972 PNEUMONIA VACCINE (DM) 1972 CERVICAL CANCER SCREENING 1984 BREAST CANCER SCREENING 1994 COLORECTAL CANCER 2004 SCREENING SHINGLES RECOMBINANT 2004 VACCINE (1 of 2) INFLUENZA VACCINE 06/22/2018 09/15/2017, 09/21/2016, 08/05/2016 DILATED EYE EXAM 02/02/2019 02/02/2018 Implants Implanted Type Area Debit Agent Device Expiration Model / Identifier Date Serial / Lot Lens Iol +20.5 Diopter 13mm 6mm Right: Eye [employer] 04/03/2020 [id number] 20.5 Posterior Chamber 1 Piece - [employer] / [id number] Implanted: Qty: 1 on 05/05/2018 by / Garcia Irvin MD NA Results Not on filefrom Last 3 Months
--- OUTSIDE RECORDS SUMMARY | 2018-09-17 19:16 | XMS REPORT ---
Author Author LATONYA KIM [facility] Address [address] [place] [address] Care Team Providers Care Stage Set Designer Name Role Phone LATONYA KIM Unavailable PROBLEMS Type Condition ICD9-CM Code XEB17-MW Code Onset Dates Condition Status SNOMED Code Problem Decreased renal function N28.9 Active 53456886 Problem Bladder spasms N32.89 Active 827596729 Problem Chronic fatigue R53.82 Active 48536078 Problem Intractable migraine without aura and with status migrainosus G43.011 Active 249402474 Problem 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, unspecified slat twister insulin use status E11.9 Active 58172535 Problem Nephrolithiasis N20.0 Active 99201499 Problem Chronic kidney disease (CKD), unspecified stage N18.9 Active 248122770 Problem Urinary incontinence, unspecified type R32 Active 426037448 Problem Primary insomnia F51.01 Active 7822265 Problem Anxiety F41.9 Active 62028025 Problem Venous stasis dermatitis of both lower extremities I87.2 Active 57095042 Problem Stage 4 chronic kidney disease N18.4 Active 385939779 Problem Cataract H26.9 Active 571707503 Problem Obstructive sleep apnea syndrome G47.33 Active 59609007 Problem Depression, unspecified depression type F32.9 Active 92371104 Problem Hypothyroidism, unspecified type E03.9 Active 59271470 Problem Perennial allergic rhinitis, unspecified allergic rhinitis trigger J30.89 Active 057031355 Problem Restless leg syndrome G25.81 Active 14475823 Problem Closed fracture of left patella, unspecified fracture morphology, sequela S82.002S Active 00351181 Problem Gastroesophageal reflux disease without esophagitis K21.9 Active 530831780 Problem Atrial fibrillation, unspecified type I48.91 Active 73113841 Problem Morbid obesity due to excess calories E66.01 Active 837881859 Problem Other chronic pain G89.29 Active 28767235 Problem Ulcer L98.499 Active 132412099 ALLERGIES No Information ENCOUNTERS Encounter Location Date Diagnosis [place] [id number] [place] [address] 13967- 1854 24 Jul, 2018 Other chronic pain G89.29 ; Arthralgia, unspecified joint M25.50 and Primary insomnia F51.01 [place] [id number] [place] [address] 84422- 5726 20 Jul, 2018 [place] [address] 47267- 5908 14 Jul, 2018 Via [facility] [employer] [address] [place] [id number] Jul, LLQ abdominal pain R10.32 [facility] [address] [place] [address] Jun, Intractable migraine without aura and with status migrainosus G43.011 and Left hip pain M25.552 [place] [address] 59014- 4477 Jun, Other chronic pain G89.29 ; Arthralgia, unspecified joint M25.50 and Primary insomnia F51.01 [place] [id number] [place] [address] 28606- 8884 Jun, [place] [id number] [place] [address] 17805- 5617 May, Other chronic pain G89.29 ; Arthralgia, unspecified joint M25.50 and Primary insomnia F51.01 [place] [id number] [place] [address] 57532- 3898 May, Urinary tract infection without hematuria, site unspecified N39.0 [place] [address] 90258- 2110 May, Bladder spasms N32.89 [place] [id number] [place] [address] 08909- 7676 May, Primary insomnia F51.01 [place] [address] [place] [address]- 6844 May, [facility] [address] [place] [address] 02156- 1744 May, Primary insomnia F51.01 and Arthralgia, unspecified joint M25.50 [facility] [address] [place] [address] 31046- 6199 May, Other chronic pain G89.29 [address] [facility] [employer] [address] [place] [id number] May, Nephrolithiasis N20.0 ; Cataract H26.9 and Macrocytic anemia D53.9 [facility] [id number] [place] [address] 12518- 5688 May, [facility] [id number] [place] [address] 07069- 9054 Apr, [facility] [id number] [place] [address] 01661- 1709 Apr, [facility] [id number] [place] [address] 64856- 1895 Apr, Primary insomnia F51.01 [facility] [id number] [place] [address] 02311- 6397 Apr, [facility] [address] [place] [address] 04641- 9891 March, Other chronic pain G89.29 Via [employer] [address] [place] [id number] March, Arthralgia, unspecified joint M25.50 ; Abnormal urine sediment R82.90 ; Venous stasis dermatitis of both lower extremities I87.2 ; Stage 4 chronic kidney disease N18.4 and Cataract of right eye, unspecified cataract type H26.9 [facility] [id number] [place] [address] 23799- 1517 March, Primary insomnia F51.01 Via [employer] [address] [place] [id number] March, Cervicalgia M54.2 ; Acute pain of right shoulder M25.511 and Pain of left femur M89.8X5 [place] [id number] [place] [address] 01823- 4499 March, [place] [id number] [place] [address] 49240- 2689 March, Other chronic pain G89.29 [place] [id number] [place] [address] 28120- 9721 Feb, Via [facility] [employer] [address] [place] [id number] Feb, Leg swelling M79.89 [place] [id number] [place] [address] 74683- 5218 Feb, Primary insomnia F51.01 Via [facility] [employer] [address] [place] [address] Feb, Fever in other diseases R50.81 and Intermittent left lower quadrant abdominal pain R10.32 [place] [address] [place] [address] 31770- 0343 Feb, [place] [id number] [place] [address] 52538- 8089 Feb, [place] [address] [place] [address] 17057- 1635 Feb, Depression, unspecified depression type F32.9 ; Hypothyroidism, unspecified type E03.9 ; 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, unspecified slat twister insulin use status E11.9 and Anxiety F41.9 [place] [address] [address] 4973 Feb, Other chronic pain G89.29 [place] [id number] [place] [address] [id number] Jan, Other chronic pain G89.29 [place] [id number] [place] [address] 42686- 8465 Jan, Bladder spasms N32.89 [facility] [address] [address] 6452 Jan, Bladder spasms N32.89 [facility] [address] [address] 4820 Dec, Bladder spasms N32.89 [facility] [address] [address] 0876 Dec, Depression, unspecified depression type F32.9 [facility] [address] [address] 3100 Dec, Via [facility] [address] [place] [address] Dec, Hypothyroidism, unspecified type E03.9 ; Depression, unspecified depression type F32.9 ; Other chronic pain G89.29 ; Urinary retention R33.9 and Atrial fibrillation, unspecified type I48.91 [facility] [id number] [place] [address] [id number] Dec, [facility] [id number] [place] [address] [id number] Dec, Other chronic pain G89.29 [facility] [id number] [place] [address] [id number] Nov, [facility] [id number] [address] Nov, Other chronic pain G89.29 [facility] [address] [address]- 4976 Nov, Other chronic pain G89.29 [facility] [address] [address] 5046 Nov, [facility] [address] [address] [address] Nov, [facility] [id number], [place] [address]- 5664 Nov, Other chronic pain G89.29 [facility] [address] [facility] [id number] [address] 6368 Nov, Other chronic pain G89.29 [facility] [address] [facility] [id number] [address]- 8128 Oct, [facility] [id number], [place] [address]- 3868 Oct, Other chronic pain G89.29 Via [employer] [address] [facility] [place] [id number] Oct, Weakness R53.1 ; Macrocytic anemia D53.9 ; Discolored skin L81.9 ; Other chronic pain G89.29 ; Dysuria R30.0 and Hayes catheter in place Z92.89 [facility] [id number] [address]- 3550 Oct, Other chronic pain G89.29 [facility] [id number] [place] [address] [id number] Sep, [facility] [id number], [place] [address]- 8055 Sep, [facility] [address] [place] [address] 71341- 4154 Sep, [facility] [id number] [id number] Sep, [facility] [id number] [place] [address] [id number] Sep, Other chronic pain G89.29 [facility] [address] [facility] [id number], [place] [address]- 9767 Sep, [facility] [id number] [place] [address] [id number] Sep, Other chronic pain G89.29 Via [employer] [address] [facility] [place] [id number] Sep, Chronic urinary tract infection N39.0 ; Other chronic pain G89.29 ; Chronic kidney disease (CKD), unspecified stage N18.9 ; 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, unspecified shelter insulin use status E11.9 ; Hypothyroidism, unspecified type E03.9 ; Depression, unspecified depression type F32.9 ; Cataract H26.9 ; Obstructive sleep apnea syndrome G47.33 ; Atrial fibrillation, unspecified type I48.91 ; History of femur fracture Z87.81 and Hayes catheter in place Z92.89 [facility] [id number] [place] [address] 06183- 6678 Sep, [facility] [id number] [place] [address] 41183- 1405 Aug, [facility] [id number] [place] [address] 00292- 8904 Aug, Other chronic pain G89.29 [facility] [id number] [place] [address] 95312- 8599 Aug, [facility] [id number] [place] [address] 84607- 3198 Aug, [facility] [id number] [place] [address] [id number] Aug, [facility] [id number] [place] [address] 14628- 2209 Aug, [facility] [id number] [place] [address] 14943- 8909 Aug, 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, unspecified shelter insulin use status E11.9 [facility] [id number] [place] [address] 36362- 9755 Aug, Other chronic pain G89.29 [facility] [id number] [place] [address] 90121- 5211 Aug, [facility] [id number] [place] [address] 37316- 3428 Aug, [facility] [id number] [place] [address] 82901- 2994 Jul, Other chronic pain G89.29 [facility] [address], [place] [address]- 9899 Jul, [facility] [address] [place] [address] 56150- 0856 Jul, Dark brown urine R82.99 [facility] [address] [place] [address] 09874- 2436 Jul, Dark brown urine R82.99 [facility] [address] [place] [address] 69667- 8070 Jul, [place] [id number] [place] [address] 17504- 6785 Jun, Other chronic pain G89.29 [place] [address] [place] [address] 58458- 9587 Jun, 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, unspecified shelter insulin use status E11.9 [place] [address] [place] [address] 44664- 9191 May, Candidiasis, intertrigo B37.2 [place] [id number] [place] [address] 62472- 9510 May, Other chronic pain G89.29 [facility] [address] [place] [address] 46235- 0901 May, [facility] [id number] [place] [address] 93580- 4416 May, [facility] [address] [place] [address] 40421- 5488 May, Candidiasis, intertrigo B37.2 [facility] [address] [place] [address] 48678- 4089 May, Atrial fibrillation, unspecified type I48.91 [facility] [id number] [place] [address] 63773- 0432 May, Hypothyroidism, unspecified type E03.9 and Decreased renal function N28.9 [facility] [id number] [place] [address] 71801- 6929 May, 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, unspecified slat twister insulin use status E11.9 [facility] [id number] [place] [address] 16372- 8592 May, Dental examination Z01.20 [place] [id number] [place] [address] 17545- 9711 May, Chronic kidney disease (CKD), unspecified stage N18.9 ; 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, unspecified slat twister insulin use status E11.9 ; Hypothyroidism, unspecified type E03.9 ; Depression, unspecified depression type F32.9 ; Anemia, unspecified type D64.9 and Ulcer L98.499 [place] [id number] [place] [address] 33886- 3045 May, [place] [id number] [place] [address] 14397- 1214 Apr, Other chronic pain G89.29 [place] [id number] [place] [address] 71796- 3891 Apr, Other chronic pain G89.29 [place] [id number] [place] [address] 08809- 8948 March, [place] [id number] [place] [address] 66605- 4589 March, [place] [id number] [place] [address] 55991- 4009 March, [facility] [id number] [place] [address] 35916- 5857 March, Other chronic pain G89.29 [place] [id number] [place] [address] 84780- 3406 March, [place] [address] [place] [address]- 5776 Feb, [facility] [id number] [place] [address] 00187- 1664 Feb, 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, unspecified shelter insulin use status E11.9 ; Candidiasis, intertrigo B37.2 ; Decubitus ulcer of left buttock, unstageable L89.320 and Pressure ulcer of contiguous region involving right buttock and hip, unspecified ulcer stage L89.40 [facility] [id number] [place] [address] 53364- 7749 Feb, Atrial fibrillation, unspecified type I48.91 [place] [address] 92113- 9441 Feb, [facility] [id number] [place] [address] 13625- 1973 Feb, [facility] [id number] [place] [address] 16521- 5929 Feb, Other chronic pain G89.29 [facility] [id number] [place] [address] 43071- 6144 Jan, Other chronic pain G89.29 [facility] [id number] [place] [address] 55890- 8542 Dec, [place] [id number] [place] [address] 22679- 6376 Dec, Lethargy R53.83 [facility] [id number] [place] [address] 64088- 7174 Dec, [facility] [id number] [place] [address] 68311- 2677 10 Dec, 2016 Other chronic pain G89.29 [facility] [id number] [place] [address] 17056- 8131 Nov, [facility] [id number] [place] [address] 70574- 0662 Nov, [facility] [address], [place] [address]- 3087 Nov, Other chronic pain G89.29 [facility] [address], [place] [address]- 6323 Nov, [facility] [address], [place] [address]- 0770 Nov, [facility] [id number] [place] [address] 55037- 5815 Nov, [facility] [id number] [place] [address] 55086- 4741 Oct, Cough R05 [facility] [id number] [place] [address] 57905- 8879 Oct, Urinary tract infection, site not specified N39.0 [place] [id number] [place] [address] 25512- 6628 Oct, Other chronic pain G89.29 [facility] [address] [place] [address] 24200- 4711 Oct, 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, unspecified slat twister insulin use status E11.9 ; Other chronic pain G89.29 ; Chronic kidney disease (CKD), unspecified stage N18.9 ; Urinary incontinence, unspecified type R32 ; Cataract H26.9 ; Hypothyroidism, unspecified type E03.9 ; Infection and inflammatory reaction due to indwelling urethral catheter, sequela T83.511S ; Urinary tract infection, site not specified N39.0 ; Restless leg syndrome G25.81 ; Depression, unspecified depression type F32.9 ; Perennial allergic rhinitis, unspecified allergic rhinitis trigger J30.89 ; Nausea R11.0 and Candidiasis B37.9 [facility] [address], [place] [address]- 6873 Oct, [facility] [address], [place] [address]- 2738 Oct, [facility] [address], [place] [address]- 1339 Oct, [facility] [id number] [place] [address] 76734- 2280 Oct, Chronic kidney disease (CKD), unspecified stage N18.9 [facility] [address] [place] [address], [place] [address]- 4900 Oct, [facility] [id number] [place] [address] 30335- 7401 Sep, Other chronic pain G89.29 [facility] [id number] [place] [address] 51029- 4901 Sep, Chronic kidney disease (CKD), unspecified stage N18.9 and Senile cataract of right eye, unspecified age-related cataract type H25.9 [facility] [id number] [place] [address] 35653- 3867 Sep, [facility] [address], [place] [address]- 4379 Sep, [facility] [address] [address]- 3061 Sep, [facility] [address], [place] [address]- 1135 Sep, [facility] [address], [place] [address]- 3794 Sep, [facility] [address], [place] [address]- 1664 Aug, [facility] [id number] [place] [address] 74155- 7485 Aug, [facility] [address], [place] [address]- 2955 Aug, [facility] [address], [place] [address]- 3566 Aug, Encounter to establish care Z76.89 ; Other chronic pain G89.29 ; Chronic kidney disease (CKD), unspecified stage N18.9 ; Obstructive sleep apnea syndrome G47.33 ; 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, unspecified shelter insulin use status E11.9 ; Urinary incontinence, unspecified type R32 ; Depression, unspecified depression type F32.9 ; History of femur fracture Z87.81 ; History of fractured kneecap Z87.81 ; Hypothyroidism , unspecified type E03.9 ; Cataract H26.9 and Gastroesophageal reflux disease without esophagitis K21.9 [place] [id number] [place] [address] 45207- 2412 Aug, [place] [address] 55101- 3493 Aug, Urinary incontinence, unspecified type R32 [address] 60214- 9263 Aug, [place] [address] 65749- 2868 Jul, [address] [id number] Jul, 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, unspecified slat twister insulin use status E11.9 ; Chronic kidney disease (CKD), unspecified stage N18.9 ; Essential (primary) hypertension I10 ; Obstructive sleep apnea syndrome G47.33 ; Decubitus ulcer, unspecified pressure ulcer stage L89.90 ; Anemia, unspecified type D64.9 ; Anxiety F41.9 ; Gastroesophageal reflux disease, esophagitis presence not specified K21.9 ; Other chronic pain G89.29 ; Seasonal allergic rhinitis, unspecified allergic rhinitis trigger J30.2 ; Urinary incontinence, unspecified type R32 ; Hypothyroidism, unspecified type E03.9 and Constipation, unspecified constipation type K59.00 [place] [id number] [place] [address] 59387- 9671 Jul, [place] [id number] [place] [address] 64879- 6195 Jul, [facility] [address] [id number] 14 Jul, 2016 Anemia, unspecified type D64.9 ; Acute renal failure, unspecified acute renal failure type N17.9 ; Other chronic pain G89.29 ; Obstructive sleep apnea syndrome G47.33 and 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, unspecified shelter insulin use status E11.9 [facility] [address], [place] [address]- 3803 13 Jul, 2016 [facility] [id number] [place] [address] 87188- 1922 Jul, [facility] [id number] [place] [address] 29882- 2374 Jul, [facility] [id number] [place] [address] 60487- 2209 Jul, [facility] [id number] [place] [address] 17921- 6942 Jul, [facility] [address] [id number] Jun, Other chronic pain G89.29 ; Hayes catheter in place Z92.89 ; Chronic kidney disease (CKD), unspecified stage N18.9 and Blisters of multiple sites R23.8 [facility] [address], [place] [address]- 8619 Jun, [facility] [address], [place] [address]- 1386 Jun, [facility] [address], [place] [address]- 8034 Jun, [facility] [address], [place] [address]- 6829 Jun, [facility] [address], [place] [address]- 7014 Jun, [facility] [address], [place] [address] Jun, [facility] [id number] [address] Jun, [facility] [address] [id number] [address] Jun, [facility] [id number] [address] Jun, [facility] [id number], [place] [address] Jun, [facility] [id number], [place] [address] Jun, [facility] [id number] [address] May, [facility] [address] [id number] [id number] May, [facility] [address] [id number] [address] May, Other chronic pain G89.29 [address] [place], [place] [id number] May, Encounter to establish care Z76.89 ; 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, unspecified shelter insulin use status E11.9 ; Hypothyroidism, unspecified type E03.9 ; Chronic kidney disease (CKD), unspecified stage N18.9 ; Dorsalgia, unspecified M54.9 ; Other chronic pain G89.29 ; Urinary incontinence, unspecified type R32 ; Cataract H26.9 ; History of fractured kneecap Z87.81 ; History of femur fracture Z87.81 ; Obstructive sleep apnea syndrome G47.33 ; Hayes catheter in place Z92.89 ; Anxiety F41.9 ; Depression, unspecified depression type F32.9 ; Gastroesophageal reflux disease without esophagitis K21.9 ; Constipation, unspecified constipation type K59.00 ; Essential (primary) hypertension I10 ; Upset stomach K30 and Overactive bladder N32.81 IMMUNIZATIONS No Known Immunizations SOCIAL HISTORY Never Assessed REASON FOR VISIT Controlled Med Refill PLAN OF CARE VITAL SIGNS MEDICATIONS Medication Instructions Dosage Frequency Start Date End Date Duration Status Ambien 5 mg Orally Once a day 1 tablet at bedtime 24h 17 Feb, 2018 28 days Active Oxycodone-Acetaminophen 10-325 MG Orally 4 times a day 1 tablet 6h 24 Jul, 2018 28 days Active Lyrica 75 MG Orally twice a day 1 capsule 12h 15 Mar, 2018 30 days Active Lorazepam 0.5 MG Orally Once a day 1 tablet 24h 12 Feb, 2018 28 days Active RESULTS No Results PROCEDURES No Known procedures INSTRUCTIONS MEDICATIONS ADMINISTERED No Known Medications MEDICAL (GENERAL) HISTORY Type Description Date Medical History Obstructive sleep apnea Medical History A-Fib Medical History Heart Attack Medical History Hypertension Medical History Diabetic Medical History Degenerate disk disease Medical History Arthritis Medical History Left knee fracture Medical History Hypothyroidsim Medical History Depression 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 Medical History Left knee Fx wired and screws placed in femure Medical History Nephrolithiasis with stents in ureters 04/2018 17 episodes of kidney stones prior Surgical History Tonsillectomy Surgical History Gallbladder Surgical History Left hip fracture and replacement Surgical History Bilateral shoulder surgery Surgical History lithotripsy Hospitalization History severe UTI with indwelling hayes cathetere, Acute/ Chronic renal failure, Type II DM, stage II decub ulcer to buttocks, leukocytosis 05/24/16 Hospitalization History Anemia, Acute Kidney Injury 08/05/16 Hospitalization History UTI, Sepsis--[facility] Hospitalization History Chest pain/SOB/A-fib 02/2017 Hospitalization History Chest pain-[facility] 04/13/17 Hospitalization History UTI, respiratory failure, altered mental status-[facility] 09/13/17
--- OUTSIDE RECORDS SUMMARY | 2018-09-17 19:16 | XMS REPORT ---
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 Name Role Phone LATONYA KIM Unavailable PROBLEMS Type Condition ICD9-CM Code VOQ66-FE Code Onset Dates Condition Status SNOMED Code Problem Closed fracture of left patella, unspecified fracture morphology, sequela S82.002S Active 45541818 Problem Ulcer L98.499 Active 801133198 Problem Morbid obesity due to excess calories E66.01 Active 168942214 Problem Decreased renal function N28.9 Active 33495658 Problem Urinary incontinence, unspecified type R32 Active 028734523 Problem Chronic fatigue R53.82 Active 85431351 Problem Anxiety F41.9 Active 22284469 Problem Bladder spasms N32.89 Active 252673212 Problem Cataract of both eyes, unspecified cataract type H26.9 Active 10788969 Problem Intractable migraine without aura and with status migrainosus G43.011 Active 099554109 Problem Depression, unspecified depression type F32.9 Active 68728169 Problem 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, unspecified snf insulin use status E11.9 Active 71552809 Problem Chronic kidney disease (CKD), unspecified stage N18.9 Active 836277911 Problem Stage 4 chronic kidney disease N18.4 Active 879564584 Problem Primary insomnia F51.01 Active 4738985 Problem Nephrolithiasis N20.0 Active 26792153 Problem Venous stasis dermatitis of both lower extremities I87.2 Active 61664668 Problem Obstructive sleep apnea syndrome G47.33 Active 61167210 Problem Gastroesophageal reflux disease without esophagitis K21.9 Active 197412136 Problem Hypothyroidism, unspecified type E03.9 Active 28669723 Problem Cataract H26.9 Active 739588860 Problem Restless leg syndrome G25.81 Active 17167471 Problem Atrial fibrillation, unspecified type I48.91 Active 59273857 Problem Other chronic pain G89.29 Active 63187221 Problem Perennial allergic rhinitis, unspecified allergic rhinitis trigger J30.89 Active [id number] ALLERGIES No Information ENCOUNTERS Encounter Location Date Diagnosis [facility] [id number] [place] [address] 03581- 4956 Aug, [facility] [id number] [place] [address] 00887- 1273 Aug, Primary insomnia F51.01 and Other chronic pain G89.29 [facility] [address] [place] [id number] Aug, Chronic fatigue R53.82 ; Macrocytic anemia D53.9 ; Hypothyroidism, unspecified type E03.9 ; Other chronic pain G89.29 ; Nephrolithiasis N20.0 ; Atrial fibrillation, unspecified type I48.91 and Cataract of both eyes, unspecified cataract type H26.9 [facility] [id number] [place] [address] 68294- 5009 Aug, [facility] [id number] [place] [address] 71153- 2977 Jul, Other chronic pain G89.29 ; Arthralgia, unspecified joint M25.50 and Primary insomnia F51.01 [facility] [id number] [place] [address] 86250- 1492 Jul, [facility] [id number] [place] [address] 69292- 3047 14 Jul, 2018 [facility] [address] [place] [id number] Jul, LLQ abdominal pain R10.32 [facility] [address] [place] [id number] Jun, Intractable migraine without aura and with status migrainosus G43.011 and Left hip pain M25.552 [facility] [address] [place] [address] 34926- 4976 Jun, Other chronic pain G89.29 ; Arthralgia, unspecified joint M25.50 and Primary insomnia F51.01 [facility] [id number] [place] [address] 28835- 0120 Jun, [facility] [id number] [place] [address] 91133- 2340 May, Other chronic pain G89.29 ; Arthralgia, unspecified joint M25.50 and Primary insomnia F51.01 [facility] [id number] [place] [address] 01337- 5028 May, Urinary tract infection without hematuria, site unspecified N39.0 [facility] [id number] [place] [address] 74136- 0543 May, Bladder spasms N32.89 [facility] [id number] [place] [address] 61120- 9653 May, Primary insomnia F51.01 [facility] [id number] [place] [address] 28606- 9615 May, [facility] [id number] [place] [address] 87898- 5190 May, Primary insomnia F51.01 and Arthralgia, unspecified joint M25.50 [facility] [id number] [place] [address] 12002- 9560 May, Other chronic pain G89.29 [facility] [address] [place] [id number] May, Nephrolithiasis N20.0 ; Cataract H26.9 and Macrocytic anemia D53.9 [facility] [address] [place] [address] 74283- 7200 May, [facility] [id number] [place] [address] 57162- 4592 Apr, [facility] [id number] [place] [address] 82957- 7255 Apr, [facility] [id number] [place] [address] 97768- 5015 Apr, Primary insomnia F51.01 [facility] [address] [address] 4611 Apr, [facility] [id number] [place] [address] 55095- 5498 March, Other chronic pain G89.29 [facility] [address] [place] [id number] March, Arthralgia, unspecified joint M25.50 ; Abnormal urine sediment R82.90 ; Venous stasis dermatitis of both lower extremities I87.2 ; Stage 4 chronic kidney disease N18.4 and Cataract of right eye, unspecified cataract type H26.9 [facility] [id number] [place] [address] 11468- 4062 March, Primary insomnia F51.01 [facility] [address] [place] [id number] March, Cervicalgia M54.2 ; Acute pain of right shoulder M25.511 and Pain of left femur M89.8X5 [facility] [address] [place] [address] 53253- 0909 March, [facility] [id number] [place] [address] 05269- 5771 March, Other chronic pain G89.29 [facility] [id number] [place] [address] 44344- 0034 Feb, [facility] [address] [place] [id number] Feb, Leg swelling M79.89 [facility] [address] [place] [address] 27093- 1663 Feb, Primary insomnia F51.01 [facility] [address] [place] [id number] Feb, Fever in other diseases R50.81 and Intermittent left lower quadrant abdominal pain R10.32 [facility] [address] [place] [address] 87866- 1046 Feb, [facility] [address] [address]- 7587 Feb, [facility] [id number] [place] [address] 02880- 3492 Feb, Depression, unspecified depression type F32.9 ; Hypothyroidism, unspecified type E03.9 ; 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, unspecified snf insulin use status E11.9 and Anxiety F41.9 [facility] [id number] [place] [address] 69112- 2170 Feb, Other chronic pain G89.29 [facility] [address] [id number] Jan, Other chronic pain G89.29 [facility] [id number] [place] [address] 17179- 3747 Jan, Bladder spasms N32.89 [facility] [id number] [place] [address] 13016- 8094 Jan, Bladder spasms N32.89 [facility] [id number] [place] [address] 84355- 4925 Dec, Bladder spasms N32.89 [facility] [id number] [place] [address] 46867- 5209 Dec, Depression, unspecified depression type F32.9 [facility] [id number] [place] [address] 87998- 3294 Dec, [facility] [address] [place] [id number] Dec, Hypothyroidism, unspecified type E03.9 ; Depression, unspecified depression type F32.9 ; Other chronic pain G89.29 ; Urinary retention R33.9 and Atrial fibrillation, unspecified type I48.91 [facility] [id number] [place] [address] [id number] Dec, [facility] [id number] [place] [address] [phone] Dec, Other chronic pain G89.29 [facility] [address] [id number] Nov, [facility] [id number] [place] [address] [id number] Nov, Other chronic pain G89.29 [facility] [address] [place] [address] 54680- 0516 Nov, Other chronic pain G89.29 [facility] [id number] [place] [address] 93462- 8128 Nov, [facility] [id number] [place] [address] 79301- 6478 Nov, [facility] [id number] [place] [address] 985433- 3870 Nov, Other chronic pain G89.29 [facility] [id number] [place] [address] 157486- 9338 Nov, Other chronic pain G89.29 [facility] [address] [place] [address] 997538- 4199 Oct, [facility] [address] [place] [address] 08054- 7250 Oct, Other chronic pain G89.29 [facility] [address] [place] [id number] Oct, Weakness R53.1 ; Macrocytic anemia D53.9 ; Discolored skin L81.9 ; Other chronic pain G89.29 ; Dysuria R30.0 and Hayes catheter in place Z92.89 [facility] [address] [place] [address] 09232- 6033 Oct, Other chronic pain G89.29 [facility] [id number] [place] [address] [id number] Sep, [facility] [address] [place] [address] 733243- 3453 Sep, [facility] [address] 7257 Sep, [facility] [id number] [place] [address] [phone] Sep, [facility] [id number] [place] [address] [id number] Sep, Other chronic pain G89.29 [facility] [id number] [place] [address] 91988- 3136 Sep, [facility] [id number] [place] [address] [id number] Sep, Other chronic pain G89.29 [facility] [address] [place] [id number] Sep, Chronic urinary tract infection N39.0 ; Other chronic pain G89.29 ; Chronic kidney disease (CKD), unspecified stage N18.9 ; 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, unspecified snf insulin use status E11.9 ; Hypothyroidism, unspecified type E03.9 ; Depression, unspecified depression type F32.9 ; Cataract H26.9 ; Obstructive sleep apnea syndrome G47.33 ; Atrial fibrillation, unspecified type I48.91 ; History of femur fracture Z87.81 and Hayes catheter in place Z92.89 [facility] [address] [address]- 0869 Sep, [facility] [address] [address]- 9487 Aug, [facility] [address] [place] [address] [id number]- 9989 Aug, Other chronic pain G89.29 [facility] [address] 0057 Aug, [facility] [address] [address] 6942 Aug, [facility] [id number] [place] [address] [id number] Aug, [facility] [address], [place] [address] 2546 Aug, [facility] [address], [place] [address] 2546 Aug, 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, unspecified snf insulin use status E11.9 [facility] [address] [place] [address] 29550 2546 Aug, Other chronic pain G89.29 [facility] [address], [place] [address] 2546 18 Aug, 2017 [facility] [id number] [place] [address] 25147 2546 16 Aug, 2017 [facility] [id number] [place] [address] 39805 2544 22 Jul, 2017 Other chronic pain G89.29 [facility] [address] [address] 2546 19 Jul, 2017 [facility] [address] [place] [address] 29841 2546 19 Jul, 2017 Dark brown urine R82.99 [facility] [address] [address] 2546 19 Jul, 2017 Dark brown urine R82.99 [facility] [address], [place] [address] 2546 14 Jul, 2017 [facility] [id number] [address] 2546 Jun, Other chronic pain G89.29 [facility] [address], [place] [address] 2546 Jun, 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, unspecified snf insulin use status E11.9 [facility] [address], [place] [address] 2546 May, Candidiasis, intertrigo B37.2 [facility] [address] [place] [address] 87350- 7819 May, Other chronic pain G89.29 [facility] [id number] [place] [address] 76793- 9119 May, [facility] [id number] [place] [address] 79042- 3604 May, [facility] [id number] [place] [address] 45750- 6171 May, Candidiasis, intertrigo B37.2 [facility] [id number] [place] [address] 80058- 6736 May, Atrial fibrillation, unspecified type I48.91 [facility] [id number] [place] [address] 42028- 5554 May, Hypothyroidism, unspecified type E03.9 and Decreased renal function N28.9 [facility] [id number] [place] [address] 75830- 3190 May, 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, 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 [facility] [id number] [place] [address] 30833- 8300 May, Dental examination Z01.20 [facility] [id number] [place] [address] 63090- 1449 May, Chronic kidney disease (CKD), unspecified stage N18.9 ; 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, unspecified snf insulin use status E11.9 ; Hypothyroidism, unspecified type E03.9 ; Depression, unspecified depression type F32.9 ; Anemia, unspecified type D64.9 and Ulcer L98.499 [facility] [address] [place] [address] 14891- 4471 May, [facility] [id number] [place] [address] 52729- 4240 Apr, Other chronic pain G89.29 [facility] [address], [place] [address]- 0552 Apr, Other chronic pain G89.29 [facility] [id number] [place] [address] 94043- 6592 March, [facility] [id number] [place] [address] 03947- 2067 March, [facility] [id number] [place] [address] 32465- 3884 March, [facility] [id number] [place] [address] 66506- 4122 March, Other chronic pain G89.29 [facility] [id number] [place] [address] 06311- 5966 March, [facility] [id number] [place] [address] 95919- 4679 Feb, [facility] [id number] [place] [address] 20868- 4754 Feb, 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, unspecified snf insulin use status E11.9 ; Candidiasis, intertrigo B37.2 ; Decubitus ulcer of left buttock, unstageable L89.320 and Pressure ulcer of contiguous region involving right buttock and hip, unspecified ulcer stage L89.40 [facility] [address], [place] [address]- 7312 Feb, Atrial fibrillation, unspecified type I48.91 [facility] [address], [place] [address]- 2958 Feb, [facility] [id number] [place] [address] 11445- 8880 Feb, [facility] [address], [place] [address]- 5056 Feb, Other chronic pain G89.29 [facility] [id number] [place] [address] 50407- 4286 Jan, Other chronic pain G89.29 [facility] [address], [place] [address]- 0449 Dec, [facility] [id number] [place] [address] 09011- 1573 Dec, Lethargy R53.83 [facility] [id number] [place] [address] 37825- 9816 17 Dec, 2016 [facility] [address] [place] [address] 78929- 8254 10 Dec, 2016 Other chronic pain G89.29 [facility] [address] [place] [address] 56340- 8766 Nov, [facility] [id number] [place] [address] 51524- 2066 Nov, [facility] [id number] [place] [address] 85184- 1926 Nov, Other chronic pain G89.29 [facility] [address] [place] [address] 66848- 7910 Nov, [facility] [address] [place] [address] 55883- 6518 Nov, [facility] [address], [place] [address]- 8967 Nov, [facility] [address] [place] [address] 99225- 1011 Oct, Cough R05 [facility] [address] [place] [address] 35634- 0317 Oct, Urinary tract infection, site not specified N39.0 [facility] [address], [place] [address]- 8107 Oct, Other chronic pain G89.29 [facility] [address] [place] [address] 12750- 4995 Oct, 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, unspecified snf insulin use status E11.9 ; Other chronic [...] J30.89 ; Nausea R11.0 and Candidiasis B37.9 [facility] [address] 08973- 3137 Oct, [facility] [address] 88065- 7891 Oct, [facility] [address] 29683- 3347 Oct, [facility] [address] 33568- 8244 Oct, Chronic kidney disease (CKD), unspecified stage N18.9 [facility] [address] 86876- 8951 Oct, [facility] [address] 76445- 0086 Sep, Other chronic pain G89.29 [facility] [address] 11145- 0690 Sep, Chronic kidney disease (CKD), unspecified stage N18.9 and Senile cataract of right eye, unspecified age-related cataract type H25.9 [facility] [address] 96423- 6175 Sep, [facility] [address] 64583- 2634 Sep, [facility] [address], [place] [address]- 2350 Sep, [facility] [address], [place] [address]- 9240 Sep, [facility] [address], [place] [address]- 7141 Sep, [facility] [address], [place] [address]- 8543 Aug, [facility] [address], [place] [address]- 4791 Aug, [facility] [address] [place] [address] 93252- 6662 Aug, [facility] [address], [place] [address]- 8967 Aug, Encounter to establish care Z76.89 ; Other chronic pain G89.29 ; Chronic kidney disease (CKD), unspecified stage N18.9 ; Obstructive sleep apnea syndrome G47.33 ; 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, 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 ; Urinary incontinence, unspecified type R32 ; Depression, unspecified depression type F32.9 ; History of femur fracture Z87.81 ; History of fractured kneecap Z87.81 ; Hypothyroidism , unspecified type E03.9 ; Cataract H26.9 and Gastroesophageal reflux disease without esophagitis K21.9 [facility] [address], [place] [address]- 2501 Aug, [facility] [id number], [place] [address]- 8015 Aug, Urinary incontinence, unspecified type R32 [facility] [address], [place] [address]- 7552 Aug, [facility] [id number], [place] [address]- 3231 Jul, [facility] [address] [place] [id number] Jul, 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, unspecified snf insulin use status E11.9 ; Chronic kidney [...] E03.9 and Constipation, unspecified constipation type K59.00 [facility] [address] 32672- 4426 Jul, [facility] [id number] [place] [address] 20899- 0580 Jul, [employer] [address] [id number] Jul, Anemia, unspecified type D64.9 ; Acute renal failure, unspecified acute renal failure type N17.9 ; Other chronic pain G89.29 ; Obstructive sleep apnea syndrome G47.33 and 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, unspecified snf insulin use status E11.9 [place] [address] [id number] [place] [id number]- [phone] 13 Jul, 2016 [place] [address] [address] [place] [id number] [place] [address]79- 8243 Jul, [place] [address] [address] [place] [id number] [place] [address]479- 9335 Jul, [place] [address] [address] [place] [id number] [place] [address]69- 2768 Jul, [place] [address] [address] [place] [id number] [place] [address] 85141- 1602 Jul, [facility] [address] [place], [place] [id number] Jun, Other chronic pain G89.29 ; Hayes catheter in place Z92.89 ; Chronic kidney disease (CKD), unspecified stage N18.9 and Blisters of multiple sites R23.8 [facility] [address] [id number] [place] [address] Jun, [facility] [address] [id number] [place] [address] Jun, [facility] [id number] [place] [address], [place] [address] Jun, [facility] [address] [id number] [place] [address] Jun, [facility] [address] [id number] [place] [address] Jun, [facility] [address] [id number] [place] [address] Jun, [facility] [address] [id number] [place] [address] Jun, [facility] [address] [id number] [place] [address] Jun, [facility] [address] [facility] [id number] [place] [address] Jun, [facility] [address] [facility] [id number] [place] [address]187 Jun, [facility] [address] [id number] [place] [address] Jun, [facility] [address] [id number] [place] [address] 254 May, [facility] [address] [facility] [id number] [place] [address] May, [facility] [address] [facility] [id number] [place] [address] May, Other chronic pain G89.29 [place] [address] [place], [place] [id number] May, Encounter to establish care Z76.89 ; 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, unspecified snf insulin use status E11.9 ; Hypothyroidism, unspecified [...] 24h 17 Feb, 2018 28 days Active Lorazepam 0.5 MG Orally Once a day 1 tablet 24h 12 Feb, 2018 28 days Active Oxycodone-Acetaminophen 10-325 MG Orally 4 times a day 1 tablet 6h 23 Aug, 2018 28 days Active RESULTS No Results [...] Acute Kidney Injury 08/05/16 Hospitalization History UTI, Sepsis--[facility] Hospitalization History Chest pain/SOB/A-fib 02/2017 Hospitalization History Chest pain-[facility] 04/13/17 Hospitalization History UTI, respiratory failure, altered mental status-[facility] 09/13/17
--- OUTSIDE RECORDS SUMMARY | 2018-09-17 19:17 | XMS REPORT ---
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 Name Role Phone LATONYA KIM Unavailable PROBLEMS Type Condition ICD9-CM Code IKO90-XY Code Onset Dates Condition Status SNOMED Code Problem Decreased renal function N28.9 Active 41912970 Problem Bladder spasms N32.89 Active 268771603 Problem Chronic fatigue R53.82 Active 75397335 Problem Intractable migraine without aura and with status migrainosus G43.011 Active 595412174 Problem 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, 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.9 Active 89980749 Problem Nephrolithiasis N20.0 Active 00602237 Problem Chronic kidney disease (CKD), unspecified stage N18.9 Active 276176476 Problem Urinary incontinence, unspecified type R32 Active 324117447 Problem Primary insomnia F51.01 Active 5736874 Problem Anxiety F41.9 Active 21016090 Problem Venous stasis dermatitis of both lower extremities I87.2 Active 45910919 Problem Stage 4 chronic kidney disease N18.4 Active 039963844 Problem Cataract H26.9 Active 985520233 Problem Obstructive sleep apnea syndrome G47.33 Active 63074906 Problem Depression, unspecified depression type F32.9 Active 26316004 Problem Hypothyroidism, unspecified type E03.9 Active 60171147 Problem Perennial allergic rhinitis, unspecified allergic rhinitis trigger J30.89 Active 376869759 Problem Restless leg syndrome G25.81 Active 42691481 Problem Closed fracture of left patella, unspecified fracture morphology, sequela S82.002S Active 19615609 Problem Gastroesophageal reflux disease without esophagitis K21.9 Active 341819141 Problem Atrial fibrillation, unspecified type I48.91 Active 62437749 Problem Morbid obesity due to excess calories E66.01 Active 951457071 Problem Other chronic pain G89.29 Active 51749266 Problem Ulcer L98.499 Active 249675217 ALLERGIES No Information ENCOUNTERS Encounter Location Date Diagnosis [place] [id number] [place] [address] 70747- 2960 24 Jul, 2018 Other chronic pain G89.29 ; Arthralgia, unspecified joint M25.50 and Primary insomnia F51.01 [place] [id number] [place] [address] 63463- 4708 20 Jul, 2018 [place] [address] 32189- [address] 14 Jul, 2018 [facility] [address] [place] [id number] Jul, LLQ abdominal pain R10.32 [facility] [address] [place] [id number] Jun, Intractable migraine without aura and with status migrainosus G43.011 and Left hip pain M25.552 [place] [address] 94231- 1412 Jun, Other chronic pain G89.29 ; Arthralgia, unspecified joint M25.50 and Primary insomnia F51.01 [place] [id number] [place] [address] 63977- 3503 Jun, [place] [id number] [place] [address] 74594- 0030 May, Other chronic pain G89.29 ; Arthralgia, unspecified joint M25.50 and Primary insomnia F51.01 [place] [id number] [place] [address] 08387- 0590 May, Urinary tract infection without hematuria, site unspecified N39.0 [place] [address] 07266- 2756 May, Bladder spasms N32.89 [place] [address] [place] [address] 16760- 9143 May, Primary insomnia F51.01 [place] [address] [place] [address]- 6224 May, [facility] [address] [place] [address] 05703- 7123 May, Primary insomnia F51.01 and Arthralgia, unspecified joint M25.50 [facility] [address] [place] [address] 32114- 2349 May, Other chronic pain G89.29 Via [facility] [employer] [address] [place] [id number] May, Nephrolithiasis N20.0 ; Cataract H26.9 and Macrocytic anemia D53.9 [facility] [id number] [place] [address] 82550- 6632 May, [facility] [id number] [place] [address] 54445- 9695 Apr, [facility] [id number] [place] [address] 56928- 4243 Apr, [facility] [id number] [place] [address] 33871- 5327 Apr, Primary insomnia F51.01 [facility] [id number] [place] [address] 15420- 1682 Apr, [facility] [address] [place] [address] 05665- 9565 March, Other chronic pain G89.29 Via [facility] [address] [place] [id number] March, Arthralgia, unspecified joint M25.50 ; Abnormal urine sediment R82.90 ; Venous stasis dermatitis of both lower extremities I87.2 ; Stage 4 chronic kidney disease N18.4 and Cataract of right eye, unspecified cataract type H26.9 [facility] [id number] [place] [address] 52500- 6534 March, Primary insomnia F51.01 Via [employer] [address] [place] [id number] March, Cervicalgia M54.2 ; Acute pain of right shoulder M25.511 and Pain of left femur M89.8X5 [place] [address] [place] [address] 89776- 0092 March, [place] [address] [place] [address] 50547- 0827 March, Other chronic pain G89.29 [place] [address] [place] [address] 55783- 8577 Feb, Via [facility] [address] [place] [id number] Feb, Leg swelling M79.89 [place] [address] [place] [address] 21330- 0089 Feb, Primary insomnia F51.01 Via [facility] [address] [place] [id number] Feb, Fever in other diseases R50.81 and Intermittent left lower quadrant abdominal pain R10.32 [place] [address] [place] [address] 17580- 4902 Feb, [place] [id number] [place] [address] 20610- 9868 Feb, [place] [address] [place] [address] 10119- 2980 Feb, Depression, unspecified depression type F32.9 ; Hypothyroidism, unspecified type E03.9 ; 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, 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.9 and Anxiety F41.9 [place] [address] [address] 6460 Feb, Other chronic pain G89.29 [place] [id number] [place] [address] [id number] Jan, Other chronic pain G89.29 [place] [address] [place] [address] 65509- 7592 Jan, Bladder spasms N32.89 [facility] [address] [address] 5629 Jan, Bladder spasms N32.89 [facility] [address], [place] [address] 3315 Dec, Bladder spasms N32.89 [facility] [address], [place] [address] 4974 Dec, Depression, unspecified depression type F32.9 [facility] [address], [place] [address] 4026 Dec, Via [facility] [address] [place] [id number] Dec, Hypothyroidism, unspecified type E03.9 ; Depression, unspecified depression type F32.9 ; Other chronic pain G89.29 ; Urinary retention R33.9 and Atrial fibrillation, unspecified type I48.91 [facility] [id number] [place] [address] [id number] Dec, [facility] [id number] [place] [address] [id number] Dec, Other chronic pain G89.29 [facility] [id number] [place] [address] [id number] Nov, [facility] [id number] [id number] Nov, Other chronic pain G89.29 [facility] [address] [address] 0086 Nov, Other chronic pain G89.29 [facility] [address] [address] 8416 Nov, [facility] [address] [address] [address] Nov, [facility] [id number] [address] 0885 Nov, Other chronic pain G89.29 [facility] [address] [facility] [id number] [address] 3760 Nov, Other chronic pain G89.29 [facility] [address] [facility] [id number] [address] 5881 Oct, [facility] [id number], [place] [address] 7681 Oct, Other chronic pain G89.29 [facility] [employer] [address] [facility] [place] [id number] Oct, Weakness R53.1 ; Macrocytic anemia D53.9 ; Discolored skin L81.9 ; Other chronic pain G89.29 ; Dysuria R30.0 and Hayes catheter in place Z92.89 [facility] [id number] [address] 1227 Oct, Other chronic pain G89.29 [facility] [id number] [place] [address] [id number] Sep, [facility] [id number], [place] [address] 6018 Sep, [facility] [address] [place] [address] 68478- 9755 Sep, [facility] [id number] [id number] Sep, [facility] [id number] [place] [address] [id number] Sep, Other chronic pain G89.29 [facility] [address] [facility] [id number], [place] [address]- 4724 Sep, [facility] [id number] [place] [address] [id number] Sep, Other chronic pain G89.29 [facility] [employer] [address] [facility] [place] [id number] Sep, Chronic urinary tract infection N39.0 ; Other chronic pain G89.29 ; Chronic kidney disease (CKD), unspecified stage N18.9 ; 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, unspecified longterm insulin use status E11.9 ; Hypothyroidism, unspecified type E03.9 ; Depression, unspecified depression type F32.9 ; Cataract H26.9 ; Obstructive sleep apnea syndrome G47.33 ; Atrial fibrillation, unspecified type I48.91 ; History of femur fracture Z87.81 and [address] catheter [address] place Z92.89 [facility] [id number] [place] [address] 36890- 9490 Sep, [facility] [id number] [place] [address] 07912- 9636 Aug, [facility] [id number] [place] [address] 38678- 2511 Aug, Other chronic pain G89.29 [facility] [id number] [place] [address] 07810- 7809 Aug, [facility] [id number] [place] [address] 92997- 3227 Aug, [facility] [id number] [place] [address] [id number] Aug, [facility] [id number] [place] [address] 74991- 0829 Aug, [facility] [id number] [place] [address] 91560- 8463 Aug, 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, unspecified longterm insulin use status E11.9 [facility] [address] [place] [address] 77318- 0322 Aug, Other chronic pain G89.29 [facility] [id number] [place] [address] 50376- 7097 Aug, [facility] [id number] [place] [address] 31919- 6350 Aug, [facility] [id number] [place] [address] 90140- 4438 Jul, Other chronic pain G89.29 [facility] [address], [place] [address]- 0196 Jul, [facility] [address] [place] [address] 36593- 7246 Jul, Dark brown urine R82.99 [facility] [address] [place] [address] 57705- 8809 Jul, Dark brown urine R82.99 [facility] [address] [place] [address] 01436- 6605 Jul, [place] [id number] [place] [address] 21857- 2611 Jun, Other chronic pain G89.29 [place] [address] [place] [address] 81106- 9065 Jun, 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, unspecified longterm insulin use status E11.9 [place] [address] [place] [address] 51569- 8256 May, Candidiasis, intertrigo B37.2 [place] [id number] [place] [address] 64062- 3531 May, Other chronic pain G89.29 [facility] [address] [place] [address] 78224- 6182 May, [facility] [id number] [place] [address] 91923- 9928 May, [facility] [address] [place] [address] 99654- 3040 May, Candidiasis, intertrigo B37.2 [facility] [address] [place] [address] 50897- 7089 May, Atrial fibrillation, unspecified type I48.91 [facility] [address] [place] [address] 48547- 0639 May, Hypothyroidism, unspecified type E03.9 and Decreased renal function N28.9 [facility] [address] [place] [address] 71392- 2698 May, 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, 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.9 [facility] [id number] [place] [address] 89658- 8017 May, Dental examination Z01.20 [place] [address] [place] [address] 79551- 7362 May, Chronic kidney disease (CKD), unspecified stage N18.9 ; 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, 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.9 ; Hypothyroidism, unspecified type E03.9 ; Depression, unspecified depression type F32.9 ; Anemia, unspecified type D64.9 and Ulcer L98.499 [place] [address] [place] [address] 96411- 9195 May, [place] [id number] [place] [address] 82671- 6335 Apr, Other chronic pain G89.29 [place] [address] [place] [address] 28736- 6877 Apr, Other chronic pain G89.29 [place] [address] [place] [address] 90598- 2522 March, [place] [address] [place] [address] 58128- 2679 March, [place] [address] [place] [address] 87886- 7018 March, [facility] [address] [place] [address] 05781- 9456 March, Other chronic pain G89.29 [place] [address] [place] [address] 07360- 1209 March, [place] [address] [place] [address]- 0388 Feb, [facility] [address] [place] [address] 00112- 8331 Feb, 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, unspecified longterm insulin use status E11.9 ; Candidiasis, intertrigo B37.2 ; Decubitus ulcer of left buttock, unstageable L89.320 and Pressure ulcer of contiguous region involving right buttock and hip, unspecified ulcer stage L89.40 [facility] [address] [place] [address] 63702- 6202 Feb, Atrial fibrillation, unspecified type I48.91 [place] [address] 42926- 1652 Feb, [facility] [id number] [place] [address] 78992- 2707 Feb, [facility] [address] [place] [address] 59158- 9920 Feb, Other chronic pain G89.29 [facility] [address] [place] [address] 94386- 3095 Jan, Other chronic pain G89.29 [facility] [address] [place] [address] 19543- 6791 Dec, [place] [address] [place] [address] 09517- 3362 Dec, Lethargy R53.83 [facility] [address] [place] [address] 60188- 5356 Dec, [facility] [address] [place] [address] 41301- 7646 10 Dec, 2016 Other chronic pain G89.29 [facility] [address] [place] [address] 43350- 3912 Nov, [facility] [address] [place] [address] 09679- 8646 Nov, [facility] [address], [place] [address]- 5932 Nov, Other chronic pain G89.29 [facility] [address], [place] [address]- 7917 Nov, [facility] [address], [place] [address]- 1329 Nov, [facility] [id number] [place] [address] 51730- 1148 Nov, [facility] [address] [place] [address] 96303- 1822 Oct, Cough R05 [facility] [address] [place] [address] 52020- 6285 Oct, Urinary tract infection, site not specified N39.0 [place] [address] [place] [address] 94620- 1170 Oct, Other chronic pain G89.29 [facility] [address] [place] [address] 46007- 2687 Oct, 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, 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.9 ; Other chronic [...] J30.89 ; Nausea R11.0 and Candidiasis B37.9 [facility] [address], [place] [address]- 1385 Oct, [facility] [address], [place] [address]- 7283 Oct, [facility] [address], [place] [address]- 3280 Oct, [facility] [address] [place] [address] 34056- 6250 Oct, Chronic kidney disease (CKD), unspecified stage N18.9 [facility] [address] [place] [address], [place] [address] Oct, [facility] [id number] [place] [address] 99036- 4787 Sep, Other chronic pain G89.29 [facility] [address] [place] [address] 96845- 3252 Sep, Chronic kidney disease (CKD), unspecified stage N18.9 and Senile cataract of right eye, unspecified age-related cataract type H25.9 [facility] [id number] [place] [address] 94962- 5570 Sep, [facility] [address], [place] [address]- 2036 Sep, [facility] [address], [place] [address]- 2933 Sep, [facility] [address], [place] [address]- 3298 Sep, [facility] [address], [place] [address]- 4810 Sep, [facility] [address], [place] [address]- 5522 Aug, [facility] [id number] [place] [address] 68834- 0144 Aug, [facility] [address], [place] [address]- 4276 Aug, [facility] [address], [place] [address]- 5846 Aug, Encounter to establish care Z76.89 ; Other chronic pain G89.29 ; Chronic kidney disease (CKD), unspecified stage N18.9 ; Obstructive sleep apnea syndrome G47.33 ; 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, unspecified longterm insulin use status E11.9 ; Urinary incontinence, unspecified type R32 ; Depression, unspecified depression type F32.9 ; History of femur fracture Z87.81 ; History of fractured kneecap Z87.81 ; Hypothyroidism , unspecified type E03.9 ; Cataract H26.9 and Gastroesophageal reflux disease without esophagitis K21.9 [place] [address] [place] [address] 68603- 2455 Aug, [place] [address] 73799- 9366 Aug, Urinary incontinence, unspecified type R32 [address] 44076- 6342 Aug, [place] [address] 83396- 6254 Jul, [facility] [id number] Jul, 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, 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.9 ; Chronic kidney [...] E03.9 and Constipation, unspecified constipation type K59.00 [place] [address] [place] [address] 42500- 1459 Jul, [place] [id number] [place] [address] 37166- 4790 Jul, [facility] [address] [place] [id number] 14 Jul, 2016 Anemia, unspecified type D64.9 ; Acute renal failure, unspecified acute renal failure type N17.9 ; Other chronic pain G89.29 ; Obstructive sleep apnea syndrome G47.33 and 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, unspecified longterm insulin use status E11.9 [facility] [address], [place] [address]- 6278 13 Jul, 2016 [facility] [id number] [place] [address] 82208- 5186 Jul, [facility] [address] [place] [address] 66717- 4115 Jul, [facility] [address] [place] [address] 59074- 5419 Jul, [facility] [id number] [place] [address] 98815- 8001 Jul, [facility] [address] [place] [id number] Jun, Other chronic pain G89.29 ; Hayes catheter in place Z92.89 ; Chronic kidney disease (CKD), unspecified stage N18.9 and Blisters of multiple sites R23.8 [facility] [address], [place] [address]- 6984 Jun, [facility] [address], [place] [address]- 2165 Jun, [facility] [address], [place] [address]- 5761 Jun, [facility] [address], [place] [address]- 8712 Jun, [facility] [address], [place] [address]- 0301 Jun, [facility] [address], [place] [address]- 3427 Jun, [facility] [id number] [address]- 2814 Jun, [facility] [id number], [place] [address]- 7724 Jun, [facility] [id number] [address]- 0456 Jun, [facility] [address], [place] [address]- 6293 Jun, [facility] [id number] [address]- 6103 Jun, [facility] [id number] [address]- 8829 May, [facility] [id number] [address]- 7426 May, [facility] [id number], [place] [address]- 8210 May, Other chronic pain G89.29 [facility] [address] [place] [id number] May, Encounter to establish care Z76.89 ; 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, unspecified longterm insulin use status E11.9 ; Hypothyroidism, unspecified [...] SOCIAL HISTORY Never Assessed REASON FOR VISIT Half-Way Visit PLAN OF CARE Activity Details Follow Up prn Reason: VITAL SIGNS MEDICATIONS Unknown Medications RESULTS No Results PROCEDURES Procedure Date Ordered Result Body Site Minor complication (15 mins) Aug 04, 2018 INSTRUCTIONS MEDICATIONS ADMINISTERED No Known Medications MEDICAL [...] Acute Kidney Injury 08/05/16 Hospitalization History UTI, Sepsis--[facility] Hospitalization History Chest pain/SOB/A-fib 02/2017 Hospitalization History Chest pain-[facility] 04/13/17 Hospitalization History UTI, respiratory failure, altered mental status-[facility] 09/13/17
--- OUTSIDE RECORDS SUMMARY | 2018-09-17 19:17 | XMS REPORT ---
Author Author LATONYA KIM [facility] Address [address] [place] [address] Care Team Providers Care Conference Translator Name Role Phone LATONYA KIM Unavailable PROBLEMS Type Condition ICD9-CM Code ZHR98-ZX Code Onset Dates Condition Status SNOMED Code Problem Decreased renal function N28.9 Active 83645890 Problem Bladder spasms N32.89 Active 801933613 Problem Chronic fatigue R53.82 Active 98673072 Problem Intractable migraine without aura and with status migrainosus G43.011 Active 489631008 Problem 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, unspecified termite treater insulin use status E11.9 Active 89689115 Problem Nephrolithiasis N20.0 Active 49385284 Problem Chronic kidney disease (CKD), unspecified stage N18.9 Active 678836180 Problem Urinary incontinence, unspecified type R32 Active 268887337 Problem Primary insomnia F51.01 Active 8740500 Problem Anxiety F41.9 Active 19531722 Problem Venous stasis dermatitis of both lower extremities I87.2 Active 83426384 Problem Stage 4 chronic kidney disease N18.4 Active 076290042 Problem Cataract H26.9 Active 168578394 Problem Obstructive sleep apnea syndrome G47.33 Active 40791364 Problem Depression, unspecified depression type F32.9 Active 30051254 Problem Hypothyroidism, unspecified type E03.9 Active 50374515 Problem Perennial allergic rhinitis, unspecified allergic rhinitis trigger J30.89 Active 220241185 Problem Restless leg syndrome G25.81 Active 15774470 Problem Closed fracture of left patella, unspecified fracture morphology, sequela S82.002S Active 62015614 Problem Gastroesophageal reflux disease without esophagitis K21.9 Active 411059380 Problem Atrial fibrillation, unspecified type I48.91 Active 60039774 Problem Morbid obesity due to excess calories E66.01 Active 944906238 Problem Other chronic pain G89.29 Active 78261320 Problem Ulcer L98.499 Active 633738374 ALLERGIES No Information ENCOUNTERS Encounter Location Date Diagnosis [place] [id number] [place] [address] 99050- 5820 24 Jul, 2018 Other chronic pain G89.29 ; Arthralgia, unspecified joint M25.50 and Primary insomnia F51.01 [place] [id number] [place] [address] 45730- 4838 20 Jul, 2018 [place] [address] 29289- 1480 14 Jul, 2018 [facility] [address] [place] [id number] Jul, LLQ abdominal pain R10.32 [facility] [address] [place] [id number] Jun, Intractable migraine without aura and with status migrainosus G43.011 and Left hip pain M25.552 [place] [address] 39958- 3309 Jun, Other chronic pain G89.29 ; Arthralgia, unspecified joint M25.50 and Primary insomnia F51.01 [place] [id number] [place] [address] 06135- 1509 Jun, [place] [id number] [place] [address] 05496- 0596 May, Other chronic pain G89.29 ; Arthralgia, unspecified joint M25.50 and Primary insomnia F51.01 [place] [address] [place] [address] 03279- 9368 May, Urinary tract infection without hematuria, site unspecified N39.0 [place] [address] 46459- 6619 May, Bladder spasms N32.89 [place] [address] [place] [address] 27047- 5855 May, Primary insomnia F51.01 [place] [address] [place] [address]- 8494 May, [facility] [address] [place] [address] 40109- 2138 May, Primary insomnia F51.01 and Arthralgia, unspecified joint M25.50 [facility] [address] [place] [address] 24892- 8884 May, Other chronic pain G89.29 [address] [facility] [employer] [address] [place] [id number] May, Nephrolithiasis N20.0 ; Cataract H26.9 and Macrocytic anemia D53.9 [facility] [address] [place] [address] 15612- 7597 May, [facility] [address] [place] [address] 82145- 4748 Apr, [facility] [id number] [place] [address] 69477- 0468 Apr, [facility] [id number] [place] [address] 43216- 1838 Apr, Primary insomnia F51.01 [facility] [id number] [place] [address] 93421- 5275 Apr, [facility] [address] [place] [address] 97056- 0675 March, Other chronic pain G89.29 [email or web address] [address] [place] [id number] March, Arthralgia, unspecified joint M25.50 ; Abnormal urine sediment R82.90 ; Venous stasis dermatitis of both lower extremities I87.2 ; Stage 4 chronic kidney disease N18.4 and Cataract of right eye, unspecified cataract type H26.9 [facility] [id number] [place] [address] 39963- 4251 March, Primary insomnia F51.01 [facility] [employer] [facility] [address] [place] [id number] March, Cervicalgia M54.2 ; Acute pain of right shoulder M25.511 and Pain of left femur M89.8X5 [place] [address] [place] [address] 45420- 6197 March, [place] [address] [place] [address] 61409- 0126 March, Other chronic pain G89.29 [place] [address] [place] [address] 31490- 2380 Feb, Via [facility] [address] [place] [id number] Feb, Leg swelling M79.89 [place] [address] [place] [address] 37061- 1302 Feb, Primary insomnia F51.01 [facility] [address] [place] [id number] Feb, Fever in other diseases R50.81 and Intermittent left lower quadrant abdominal pain R10.32 [place] [address] [place] [address] 29475- 8517 Feb, [place] [address] [place] [address] 93089- 5250 Feb, [place] [address] [place] [address] 60657- 8360 Feb, Depression, unspecified depression type F32.9 ; Hypothyroidism, unspecified type E03.9 ; 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, unspecified termite treater insulin use status E11.9 and Anxiety F41.9 [place] [address] [address] 8352 Feb, Other chronic pain G89.29 [place] [id number] [place] [id number] Jan, Other chronic pain G89.29 [place] [address] [place] [address] 10734- 9287 Jan, Bladder spasms N32.89 [facility] [address] [address] 2882 Jan, Bladder spasms N32.89 [facility] [address], [place] [address] 1518 Dec, Bladder spasms N32.89 [facility] [address], [place] [address] 8951 Dec, Depression, unspecified depression type F32.9 [facility] [address], [place] [address] 6350 Dec, Via [facility] [address] [place] [id number] Dec, Hypothyroidism, unspecified type E03.9 ; Depression, unspecified depression type F32.9 ; Other chronic pain G89.29 ; Urinary retention R33.9 and Atrial fibrillation, unspecified type I48.91 [facility] [id number] [place] [id number] Dec, [facility] [id number] [place] [id number] Dec, Other chronic pain G89.29 [facility] [id number] [place] [id number] Nov, [facility] [id number] [id number] Nov, Other chronic pain G89.29 [facility] [address] [address]- 6456 Nov, Other chronic pain G89.29 [facility] [address], [place] [address]- 8466 Nov, [facility] [address] [address] 39[address] Nov, [facility] [id number] [address]- 0675 Nov, Other chronic pain G89.29 [facility] [address] [facility] [id number] [address]21 Nov, Other chronic pain G89.29 [facility] [address] [facility] [id number], [place] [address] 3709 Oct, [facility] [id number], [place] [address]- 9172 Oct, Other chronic pain G89.29 [facility] [employer] [address] [facility] [place] [id number] Oct, Weakness R53.1 ; Macrocytic anemia D53.9 ; Discolored skin L81.9 ; Other chronic pain G89.29 ; Dysuria R30.0 and Hayes catheter in place Z92.89 [facility] [id number] [address]- 9194 Oct, Other chronic pain G89.29 [facility] [id number] [place] [address] [id number] Sep, [facility] [id number] [address]- 6136 Sep, [facility] [address] [place] [address] 74687- 7040 Sep, [facility] [id number] [id number] Sep, [facility] [id number] [place] [address] [id number] Sep, Other chronic pain G89.29 [facility] [address] [facility] [id number], [place] [address]- 3684 Sep, [facility] [id number] [place] [address] [id number] Sep, Other chronic pain G89.29 [facility] [employer] [address] [facility] [place] [id number] Sep, Chronic urinary tract infection N39.0 ; Other chronic pain G89.29 ; Chronic kidney disease (CKD), unspecified stage N18.9 ; 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, [place] insulin use status E11.9 ; Hypothyroidism, unspecified type E03.9 ; Depression, unspecified depression type F32.9 ; Cataract H26.9 ; Obstructive sleep apnea syndrome G47.33 ; Atrial fibrillation, unspecified type I48.91 ; History of femur fracture Z87.81 and [address] catheter in place Z92.89 [facility] [id number] [place] [address] 24124- 9929 Sep, [facility] [address] [place] [address] 34422- 0728 Aug, [facility] [address] [place] [address] 19570- 5866 Aug, Other chronic pain G89.29 [facility] [address] [place] [address] 75077- 6266 Aug, [facility] [address] [place] [address] 39010- 6888 Aug, [facility] [id number] [place] [address] [id number] Aug, [facility] [address] [place] [address] 89613- 5139 Aug, [facility] [address] [place] [address] 98315- 5760 Aug, 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, unspecified [facility] insulin use status E11.9 [facility] [address] [place] [address] 44540- 9746 Aug, Other chronic pain G89.29 [facility] [address] [place] [address] 11846- 3134 Aug, [facility] [address] [place] [address] 53440- 4760 Aug, [facility] [address] [place] [address] 70040- 6379 Jul, Other chronic pain G89.29 [facility] [address], [place] [address]- 3276 Jul, [facility] [address] [place] [address] 27197- 4226 Jul, Dark brown urine R82.99 [facility] [address] [place] [address] 10406- 8050 Jul, Dark brown urine R82.99 [facility] [address] [place] [address] 42438- 6593 Jul, [place] [address] [place] [address] 67577- 3558 Jun, Other chronic pain G89.29 [place] [address] [place] [address] 73370- 3160 Jun, 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, unspecified [facility] insulin use status E11.9 [place] [address] [place] [address] 18300- 9956 May, Candidiasis, intertrigo B37.2 [place] [address] [place] [address] 45833- 6092 May, Other chronic pain G89.29 [facility] [address] [place] [address] 23499- 2338 May, [facility] [address] [place] [address] 93120- 8646 May, [facility] [address] [place] [address] 87806- 0796 May, Candidiasis, intertrigo B37.2 [facility] [address] [place] [address] 48729- 7865 May, Atrial fibrillation, unspecified type I48.91 [facility] [address] [place] [address] 61957- 5143 May, Hypothyroidism, unspecified type E03.9 and Decreased renal function N28.9 [facility] [address] [place] [address] 23929- 0493 May, 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, unspecified termite treater insulin use status E11.9 [facility] [address] [place] [address] 14448- 6599 May, Dental examination Z01.20 [place] [address] [place] [address] 23615- 5866 May, Chronic kidney disease (CKD), unspecified stage N18.9 ; 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, unspecified termite treater insulin use status E11.9 ; Hypothyroidism, unspecified type E03.9 ; Depression, unspecified depression type F32.9 ; Anemia, unspecified type D64.9 and Ulcer L98.499 [place] [address] [place] [address] 92166- 6092 May, [place] [address] [place] [address] 52662- 2922 Apr, Other chronic pain G89.29 [place] [address] [place] [address] 54851- 0492 Apr, Other chronic pain G89.29 [place] [address] [place] [address] 24393- 5809 March, [place] [address] [place] [address] 32298- 7505 March, [place] [address] [place] [address] 08684- 6463 March, [facility] [address] [place] [address] 76886- 2550 March, Other chronic pain G89.29 [place] [address] [place] [address] 89790- 2964 March, [place] [address] [place] [address]- 1617 Feb, [facility] [address] [place] [address] 30086- 8272 Feb, 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, unspecified [facility] insulin use status E11.9 ; Candidiasis, intertrigo B37.2 ; Decubitus ulcer of left buttock, unstageable L89.320 and Pressure ulcer of contiguous region involving right buttock and hip, unspecified ulcer stage L89.40 [facility] [address] [place] [address] 90344- 3900 Feb, Atrial fibrillation, unspecified type I48.91 [place] [address] 99715- 3885 Feb, [facility] [address] [place] [address] 83826- 9328 Feb, [facility] [address] [place] [address] 98902- 1133 Feb, Other chronic pain G89.29 [facility] [address] [place] [address] 54365- 4456 Jan, Other chronic pain G89.29 [facility] [address] [place] [address] 05627- 6968 Dec, [place] [address] [place] [address] 02014- 3250 Dec, Lethargy R53.83 [facility] [address] [place] [address] 37896- 1503 Dec, [facility] [address] [place] [address] 09150- 4786 10 Dec, 2016 Other chronic pain G89.29 [facility] [address] [place] [address] 54168- 1266 Nov, [facility] [address] [place] [address] 34407- 0597 Nov, [facility] [address], [place] [address]- 6346 Nov, Other chronic pain G89.29 [facility] [address], [place] [address]- 5419 Nov, [facility] [address], [place] [address]- 1943 Nov, [facility] [address] [place] [address] 46218- 1560 Nov, [facility] [address] [place] [address] 49826- 9889 Oct, Cough R05 [facility] [address] [place] [address] 54908- 2198 Oct, Urinary tract infection, site not specified N39.0 [place] [address] [place] [address] 49037- 4004 Oct, Other chronic pain G89.29 [facility] [address] [place] [address] 73149- 2565 Oct, 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, unspecified termite treater insulin use status E11.9 ; Other chronic [...] J30.89 ; Nausea R11.0 and Candidiasis B37.9 [facility] [address], [place] [address]- 8806 Oct, [facility] [address], [place] [address]- 3538 Oct, [facility] [address], [place] [address]- 9327 Oct, [facility] [address] [place] [address] 57502- 2453 Oct, Chronic kidney disease (CKD), unspecified stage N18.9 [facility] [address] [place] [address], [place] [address]- 8859 Oct, [facility] [address] [place] [address] 47019- 3094 Sep, Other chronic pain G89.29 [facility] [address] [place] [address] 33748- 5465 Sep, Chronic kidney disease (CKD), unspecified stage N18.9 and Senile cataract of right eye, unspecified age-related cataract type H25.9 [facility] [address] [place] [address] 91219- 4645 Sep, [facility] [address], [place] [address]- 1013 Sep, [facility] [address], [place] [address]- 5063 Sep, [facility] [address], [place] [address]- 1085 Sep, [facility] [address], [place] [address]- 0900 Sep, [facility] [address], [place] [address]- 2461 Aug, [facility] [address] [place] [address] 02330- 7570 Aug, [facility] [address], [place] [address]- 3549 Aug, [facility] [address], [place] [address]- 9364 Aug, Encounter to establish care Z76.89 ; Other chronic pain G89.29 ; Chronic kidney disease (CKD), unspecified stage N18.9 ; Obstructive sleep apnea syndrome G47.33 ; 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, unspecified [facility] insulin use status E11.9 ; Urinary incontinence, unspecified type R32 ; Depression, unspecified depression type F32.9 ; History of femur fracture Z87.81 ; History of fractured kneecap Z87.81 ; Hypothyroidism , unspecified type E03.9 ; Cataract H26.9 and Gastroesophageal reflux disease without esophagitis K21.9 [place] [address] [place] [address] 52368- 1951 Aug, [place] [address] 30433- 8194 Aug, Urinary incontinence, unspecified type R32 [address] 54971- 6808 Aug, [place] [address] 10035- 7948 Jul, [address] [id number] Jul, 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, unspecified termite treater insulin use status E11.9 ; Chronic kidney [...] E03.9 and Constipation, unspecified constipation type K59.00 [place] [address] [place] [address] 19087- 0593 Jul, [place] [id number] [place] [address] 49369- 4536 Jul, [facility] [address] [place] [id number] 14 Jul, 2016 Anemia, unspecified type D64.9 ; Acute renal failure, unspecified acute renal failure type N17.9 ; Other chronic pain G89.29 ; Obstructive sleep apnea syndrome G47.33 and 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, unspecified [facility] insulin use status E11.9 [facility] [address], [place] [address]- 7715 13 Jul, 2016 [facility] [address] [place] [address] 70118- 7995 Jul, [facility] [id number] [place] [address] 49642- 5989 Jul, [facility] [id number] [place] [address] 85879- 5325 Jul, [facility] [id number] [place] [address] 21889- 8997 Jul, [facility] [address] [place] [id number] Jun, Other chronic pain G89.29 ; Hayes catheter in place Z92.89 ; Chronic kidney disease (CKD), unspecified stage N18.9 and Blisters of multiple sites R23.8 [facility] [address], [place] [address]- 3153 Jun, [facility] [address], [place] [address]- 1432 Jun, [facility] [address], [place] [address]- 5290 Jun, [facility] [address], [place] [address]- 7041 Jun, [facility] [address], [place] [address]- 6038 Jun, [facility] [address], [place] [address]- 3870 Jun, [facility] [id number], [place] [address]- 6283 Jun, [facility] [id number] [address]- 4332 Jun, [facility] [id number] [address]- 8134 Jun, [facility] [address], [place] [address]- 6683 Jun, [facility] [id number], [place] [address]- 5209 Jun, [facility] [id number], [place] [address]- 4290 May, [facility] [id number], [place] [address]- 3990 May, [facility] [id number] [address]- 5325 May, Other chronic pain G89.29 [facility] [address] [place] [id number] May, Encounter to establish care Z76.89 ; 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, unspecified [facility] insulin use status E11.9 ; Hypothyroidism, unspecified [...] SOCIAL HISTORY Never Assessed REASON FOR VISIT Lab results called to [facility] PLAN OF CARE VITAL SIGNS MEDICATIONS Unknown Medications RESULTS No Results PROCEDURES No Known procedures [...] Acute Kidney Injury 08/05/16 Hospitalization History UTI, Sepsis--[facility] Hospitalization History Chest pain/SOB/A-fib 02/2017 Hospitalization History Chest pain-[facility] 04/13/17 Hospitalization History UTI, respiratory failure, altered mental status-[facility] 09/13/17
--- OUTSIDE RECORDS SUMMARY | 2018-09-17 19:18 | XMS REPORT ---
Author Author LATONYA KIM [facility] Address [address] [place] [address] Care Team Providers Care Government Affairs Director Name Role Phone LATONYA KIM Unavailable PROBLEMS Type Condition ICD9-CM Code XAC88-MF Code Onset Dates Condition Status SNOMED Code Problem Decreased renal function N28.9 Active 29427567 Problem Bladder spasms N32.89 Active 242531318 Problem Chronic fatigue R53.82 Active 34147296 Problem Intractable migraine without aura and with status migrainosus G43.011 Active 480587400 Problem 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, unspecified terminal carman insulin use status E11.9 Active 18350869 Problem Nephrolithiasis N20.0 Active 92326746 Problem Chronic kidney disease (CKD), unspecified stage N18.9 Active 609205864 Problem Urinary incontinence, unspecified type R32 Active 966551447 Problem Primary insomnia F51.01 Active 1782869 Problem Anxiety F41.9 Active 62153740 Problem Venous stasis dermatitis of both lower extremities I87.2 Active 61212871 Problem Stage 4 chronic kidney disease N18.4 Active 779896536 Problem Cataract H26.9 Active 900914167 Problem Obstructive sleep apnea syndrome G47.33 Active 10183639 Problem Depression, unspecified depression type F32.9 Active 28507397 Problem Hypothyroidism, unspecified type E03.9 Active 46891864 Problem Perennial allergic rhinitis, unspecified allergic rhinitis trigger J30.89 Active 837748820 Problem Restless leg syndrome G25.81 Active 06353933 Problem Closed fracture of left patella, unspecified fracture morphology, sequela S82.002S Active 43747340 Problem Gastroesophageal reflux disease without esophagitis K21.9 Active 206611763 Problem Atrial fibrillation, unspecified type I48.91 Active 94295945 Problem Morbid obesity due to excess calories E66.01 Active 133951737 Problem Other chronic pain G89.29 Active 91987429 Problem Ulcer L98.499 Active 355093347 ALLERGIES No Information ENCOUNTERS Encounter Location Date Diagnosis [place] [id number] [place] [address] 05952- 1956 24 Jul, 2018 Other chronic pain G89.29 ; Arthralgia, unspecified joint M25.50 and Primary insomnia F51.01 [place] [id number] [place] [address] 10882- 8705 20 Jul, 2018 [place] [address] [address]- 5129 14 Jul, 2018 [facility] [address] [place] [id number] Jul, LLQ abdominal pain R10.32 [facility] [address] [place] [address] Jun, Intractable migraine without aura and with status migrainosus G43.011 and Left hip pain M25.552 [place] [address] 33172- 8181 Jun, Other chronic pain G89.29 ; Arthralgia, unspecified joint M25.50 and Primary insomnia F51.01 [place] [id number] [place] [address] 13058- 5695 Jun, [place] [id number] [place] [address] 30634- 2614 May, Other chronic pain G89.29 ; Arthralgia, unspecified joint M25.50 and Primary insomnia F51.01 [place] [id number] [place] [address] 42741- 5492 May, Urinary tract infection without hematuria, site unspecified N39.0 [place] [address] 60169- 3365 May, Bladder spasms N32.89 [place] [id number] [place] [address] 45840- 2563 May, Primary insomnia F51.01 [place] [address] [place] [address]- 5603 May, [facility] [address] [place] [address] 09232- 0240 May, Primary insomnia F51.01 and Arthralgia, unspecified joint M25.50 [facility] [address] [place] [address] 88871- 2289 May, Other chronic pain G89.29 [address] [facility] [employer] [address] [place] [id number] May, Nephrolithiasis N20.0 ; Cataract H26.9 and Macrocytic anemia D53.9 [facility] [id number] [place] [address] 08895- 1863 May, [facility] [id number] [place] [address] 13304- 0651 Apr, [facility] [id number] [place] [address] 16523- 2875 Apr, [facility] [id number] [place] [address] 08812- 8722 Apr, Primary insomnia F51.01 [facility] [id number] [place] [address] 11561- 1240 Apr, [facility] [address] [place] [address] 60629- 1357 March, Other chronic pain G89.29 [facility] [address] [place] [id number] March, Arthralgia, unspecified joint M25.50 ; Abnormal urine sediment R82.90 ; Venous stasis dermatitis of both lower extremities I87.2 ; Stage 4 chronic kidney disease N18.4 and Cataract of right eye, unspecified cataract type H26.9 [facility] [id number] [place] [address] 38818- 4865 March, Primary insomnia F51.01 [facility] [employer] [address] [place] [id number] March, Cervicalgia M54.2 ; Acute pain of right shoulder M25.511 and Pain of left femur M89.8X5 [place] [id number] [place] [address] 50772- 0201 March, [place] [id number] [place] [address] 95905- 1883 March, Other chronic pain G89.29 [place] [id number] [place] [address] 09308- 6173 Feb, [facility] [address] [place] [id number] Feb, Leg swelling M79.89 [place] [id number] [place] [address] 34510- 0075 Feb, Primary insomnia F51.01 Via [facility] [address] [place] [id number] Feb, Fever in other diseases R50.81 and Intermittent left lower quadrant abdominal pain R10.32 [place] [address] [place] [address] 09412- 2770 Feb, [place] [id number] [place] [address] 92531- 5521 Feb, [place] [address] [place] [address] 25569- 4518 Feb, Depression, unspecified depression type F32.9 ; Hypothyroidism, unspecified type E03.9 ; 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, unspecified terminal carman insulin use status E11.9 and Anxiety F41.9 [place] [address] [address]- 0372 Feb, Other chronic pain G89.29 [place] [id number] [place] [id number] Jan, Other chronic pain G89.29 [place] [id number] [place] [address] 08688- 4103 Jan, Bladder spasms N32.89 [facility] [address] [address] 7442 Jan, Bladder spasms N32.89 [facility] [address] [address]- 2058 Dec, Bladder spasms N32.89 [facility] [address], [place] [address]- 9876 Dec, Depression, unspecified depression type F32.9 [facility] [address] [address]- 9222 Dec, Via [facility] [address] [place] [id number] Dec, Hypothyroidism, unspecified type E03.9 ; Depression, unspecified depression type F32.9 ; Other chronic pain G89.29 ; Urinary retention R33.9 and Atrial fibrillation, unspecified type I48.91 [facility] [id number] [place] [address] [id number] Dec, [facility] [id number] [place] [address] [id number] Dec, Other chronic pain G89.29 [facility] [id number] [place] [address] [id number] Nov, [facility] [id number] [address] Nov, Other chronic pain G89.29 [facility] [address], [place] [address]- 5266 Nov, Other chronic pain G89.29 [facility] [address], [place] [address]- 4396 Nov, [facility] [address] [address] 1390 Nov, [facility] [id number] [address]- 9507 Nov, Other chronic pain G89.29 [facility] [address] [facility] [id number] [address] Nov, Other chronic pain G89.29 [facility] [address] [facility] [id number] [address]- 4381 Oct, [facility] [id number], [place] [address]- 8203 Oct, Other chronic pain G89.29 [facility] [employer] [address] [facility] [place] [id number] Oct, Weakness R53.1 ; Macrocytic anemia D53.9 ; Discolored skin L81.9 ; Other chronic pain G89.29 ; Dysuria R30.0 and Hayes catheter in place Z92.89 [facility] [address] [address]- 0936 Oct, Other chronic pain G89.29 [facility] [id number] [place] [address] [id number] Sep, [facility] [id number] [address]- 9420 Sep, [facility] [address] [place] [address] 88902- 9253 Sep, [facility] [id number] [id number] Sep, [facility] [id number] [place] [address] [id number] Sep, Other chronic pain G89.29 [facility] [address] [facility] [id number], [place] [address]- 4684 Sep, [facility] [id number] [place] [address] [id number] Sep, Other chronic pain G89.29 [facility] [employer] [address] [facility] [place] [id number] Sep, Chronic urinary tract infection N39.0 ; Other chronic pain G89.29 ; Chronic kidney disease (CKD), unspecified stage N18.9 ; 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, unspecified alf insulin use status E11.9 ; Hypothyroidism, unspecified type E03.9 ; Depression, unspecified depression type F32.9 ; Cataract H26.9 ; Obstructive sleep apnea syndrome G47.33 ; Atrial fibrillation, unspecified type I48.91 ; History of femur fracture Z87.81 and Hayes catheter in place Z92.89 [facility] [id number] [place] [address] 56803- 7619 Sep, [facility] [id number] [place] [address] 41447- 6064 Aug, [facility] [id number] [place] [address] 74523- 5860 Aug, Other chronic pain G89.29 [facility] [id number] [place] [address] 65004- 2948 Aug, [facility] [id number] [place] [address] 35596- 8199 Aug, [facility] [id number] [place] [address] [id number] Aug, [facility] [id number] [place] [address] 95836- 8662 Aug, [facility] [id number] [place] [address] 82093- 4001 Aug, 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, unspecified alf insulin use status E11.9 [facility] [id number] [place] [address] 68430- 5039 Aug, Other chronic pain G89.29 [facility] [id number] [place] [address] 18224- 9574 Aug, [facility] [id number] [place] [address] 09494- 1230 Aug, [facility] [id number] [place] [address] 55927- 3856 Jul, Other chronic pain G89.29 [facility] [address], [place] [address]- 9054 Jul, [facility] [address] [place] [address] 29633- 5866 Jul, Dark brown urine R82.99 [facility] [address] [place] [address] 73384- 6612 Jul, Dark brown urine R82.99 [facility] [address] [place] [address] 85674- 5232 Jul, [place] [id number] [place] [address] 58777- 9627 Jun, Other chronic pain G89.29 [place] [address] [place] [address] 67697- 1102 Jun, 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, unspecified alf insulin use status E11.9 [place] [address] [place] [address] 02986- 8772 May, Candidiasis, intertrigo B37.2 [place] [id number] [place] [address] 71636- 5284 May, Other chronic pain G89.29 [facility] [address] [place] [address] 41540- 0506 May, [facility] [id number] [place] [address] 27349- 4872 May, [facility] [address] [place] [address] 20178- 1717 May, Candidiasis, intertrigo B37.2 [facility] [address] [place] [address] 20861- 1272 May, Atrial fibrillation, unspecified type I48.91 [facility] [id number] [place] [address] 23992- 7869 May, Hypothyroidism, unspecified type E03.9 and Decreased renal function N28.9 [facility] [id number] [place] [address] 92969- 6091 May, 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, unspecified terminal carman insulin use status E11.9 [facility] [id number] [place] [address] 85136- 7905 May, Dental examination Z01.20 [place] [id number] [place] [address] 99221- 9555 May, Chronic kidney disease (CKD), unspecified stage N18.9 ; 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, unspecified terminal carman insulin use status E11.9 ; Hypothyroidism, unspecified type E03.9 ; Depression, unspecified depression type F32.9 ; Anemia, unspecified type D64.9 and Ulcer L98.499 [place] [id number] [place] [address] 42781- 8750 May, [place] [id number] [place] [address] 67353- 1781 Apr, Other chronic pain G89.29 [place] [id number] [place] [address] 48599- 6745 Apr, Other chronic pain G89.29 [place] [id number] [place] [address] 07637- 2732 March, [place] [id number] [place] [address] 54699- 5036 March, [place] [id number] [place] [address] 82591- 5366 March, [facility] [id number] [place] [address] 43675- 7119 March, Other chronic pain G89.29 [place] [id number] [place] [address] 02805- 5667 March, [place] [address] [place] [address]- 6694 Feb, [facility] [id number] [place] [address] 77818- 7292 Feb, 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, unspecified alf insulin use status E11.9 ; Candidiasis, intertrigo B37.2 ; Decubitus ulcer of left buttock, unstageable L89.320 and Pressure ulcer of contiguous region involving right buttock and hip, unspecified ulcer stage L89.40 [facility] [id number] [place] [address] 00319- 6656 Feb, Atrial fibrillation, unspecified type I48.91 [place] [address] 71647- 4172 Feb, [facility] [id number] [place] [address] 07415- 7706 Feb, [facility] [id number] [place] [address] 22492- 7927 Feb, Other chronic pain G89.29 [facility] [id number] [place] [address] 58720- 8953 Jan, Other chronic pain G89.29 [facility] [id number] [place] [address] 59892- 4526 Dec, [place] [id number] [place] [address] 30163- 6125 Dec, Lethargy R53.83 [facility] [id number] [place] [address] 01383- 3579 Dec, [facility] [id number] [place] [address] 55882- 1113 10 Dec, 2016 Other chronic pain G89.29 [facility] [id number] [place] [address] 28771- 4477 Nov, [facility] [id number] [place] [address] 20230- 3231 Nov, [facility] [address], [place] [address]- 6414 Nov, Other chronic pain G89.29 [facility] [address], [place] [address]- 6026 Nov, [facility] [address], [place] [address]- 9547 Nov, [facility] [id number] [place] [address] 40742- 9248 Nov, [facility] [id number] [place] [address] 62692- 4282 Oct, Cough R05 [facility] [id number] [place] [address] 06467- 6903 Oct, Urinary tract infection, site not specified N39.0 [place] [id number] [place] [address] 02258- 0668 Oct, Other chronic pain G89.29 [facility] [address] [place] [address] 58735- 4965 Oct, 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, unspecified terminal carman insulin use status E11.9 ; Other chronic [...] J30.89 ; Nausea R11.0 and Candidiasis B37.9 [facility] [address], [place] [address]- 9250 Oct, [facility] [address], [place] [address]- 1295 Oct, [facility] [address], [place] [address]- 8677 Oct, [facility] [id number] [place] [address] 25538- 8697 Oct, Chronic kidney disease (CKD), unspecified stage N18.9 [facility] [address] [place] [address], [place] [address]- 6652 Oct, [facility] [id number] [place] [address] 09417- 8961 Sep, Other chronic pain G89.29 [facility] [id number] [place] [address] 56394- 6447 Sep, Chronic kidney disease (CKD), unspecified stage N18.9 and Senile cataract of right eye, unspecified age-related cataract type H25.9 [facility] [id number] [place] [address] 67098- 0197 Sep, [facility] [address], [place] [address]- 3982 Sep, [facility] [address] [address]- 8406 Sep, [facility] [address], [place] [address]- 1973 Sep, [facility] [address], [place] [address]- 9825 Sep, [facility] [address], [place] [address]- 8438 Aug, [facility] [id number] [place] [address] 87634- 5692 Aug, [facility] [address], [place] [address]- 1241 Aug, [facility] [address], [place] [address]- 8667 Aug, Encounter to establish care Z76.89 ; Other chronic pain G89.29 ; Chronic kidney disease (CKD), unspecified stage N18.9 ; Obstructive sleep apnea syndrome G47.33 ; 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, unspecified alf insulin use status E11.9 ; Urinary incontinence, unspecified type R32 ; Depression, unspecified depression type F32.9 ; History of femur fracture Z87.81 ; History of fractured kneecap Z87.81 ; Hypothyroidism , unspecified type E03.9 ; Cataract H26.9 and Gastroesophageal reflux disease without esophagitis K21.9 [place] [id number] [place] [address] 51957- 9721 Aug, [place] [address] 14127- 5495 Aug, Urinary incontinence, unspecified type R32 [address] 17674- 7940 Aug, [place] [address] 62472- 7326 Jul, [employer] [id number] Jul, 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, unspecified terminal carman insulin use status E11.9 ; Chronic kidney [...] E03.9 and Constipation, unspecified constipation type K59.00 [place] [id number] [place] [address] 34435- 7352 Jul, [place] [id number] [place] [address] 71145- 9831 Jul, [facility] [address] [place] [id number] 14 Jul, 2016 Anemia, unspecified type D64.9 ; Acute renal failure, unspecified acute renal failure type N17.9 ; Other chronic pain G89.29 ; Obstructive sleep apnea syndrome G47.33 and 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, unspecified alf insulin use status E11.9 [facility] [address], [place] [address]- 1276 13 Jul, 2016 [facility] [id number] [place] [address] 99358- 1379 Jul, [facility] [id number] [place] [address] 15420- 7565 Jul, [facility] [id number] [place] [address] 19832- 0579 Jul, [facility] [id number] [place] [address] 64995- 2788 Jul, [facility] [address] [place] [id number] Jun, Other chronic pain G89.29 ; Hayes catheter in place Z92.89 ; Chronic kidney disease (CKD), unspecified stage N18.9 and Blisters of multiple sites R23.8 [facility] [address], [place] [address]- 6936 Jun, [facility] [address], [place] [address]- 0625 Jun, [facility] [address], [place] [address]- 0574 Jun, [facility] [address], [place] [address]- 4065 Jun, [facility] [address], [place] [address]- 5787 Jun, [facility] [address], [place] [address]- 8885 Jun, [facility] [id number] [address] Jun, [facility] [id number], [place] [address] Jun, [facility] [id number] [address] Jun, [facility] [id number], [place] [address] Jun, [facility] [id number], [place] [address] Jun, [facility] [id number], [place] [address] May, [facility] [id number], [place] [address] May, [facility] [id number], [place] [address] May, Other chronic pain G89.29 [facility] [address] [place] [id number] May, Encounter to establish care Z76.89 ; 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, unspecified alf insulin use status E11.9 ; Hypothyroidism, unspecified [...] SOCIAL HISTORY Never Assessed REASON FOR VISIT jail PLAN OF CARE Activity Details Follow Up prn Reason: VITAL SIGNS MEDICATIONS Medication Instructions Dosage Frequency Start Date End Date Duration Status Aspercreme w/Lidocaine 4 % Externally 2 times a day during skin treatment 1 application to affected area Active Triamcinolone Acetonide 0.1 % Externally Twice a day 1 application to affected area 12h Active Evelyn Root 550 MG Orally 2 times a day 1 capsule as needed 12h Active Synthroid 125 MCG Orally Once a day 1 tablet on an empty stomach in the morning 24h Active Pred Forte 1 % Ophthalmic 4 times a day 1 drop into affected eye 6h Active Tylenol 325 MG Orally every 6 hrs 2 tablets as needed 6h Active Cartia XT 120 MG Orally Once a day 1 capsule 24h Active Test strips Active Milk of Magnesia Concentrate 2400 MG/10ML Orally Once a day 30 ml as needed 24h Active Ambien 5 mg Orally Once a day 1 tablet at bedtime 24h Feb, 28 days Active Vitamin C 500 mg Orally Once a day 1 tablet 24h Active Victoza 18 MG/3ML Subcutaneous Once a day 1.8mg 24h Active Biofreeze 4 % Externally 3 times a day 1 application to affected area as needed 8h Active Saline Mist [place] 0.65 % Nasally every 4 hrs 2 sprays in each nostril as needed 4h Active Trintellix 20 MG Orally Once a day 1 tablet 24h Active Diflucan 150 MG 1 tablet now, and 1 tablet in three days if symptoms persist Jun, Active Capsaicin 0.1 % Externally to bilat feet at bedtime 1 application to affected area Active Nystatin 572305 UNIT/GM Externally Twice a day 1 application to affected area 12h Active Eliquis 5 mg Orally 2 times a day 1 tablet 12h Active Ondansetron HCl 8 MG Orally 3 times a day 1 tablet as needed 8h Active MiraLax - Orally Once a day 17 gm 24h Active Oxycodone-Acetaminophen 10-325 MG Orally 4 times a day 1 tablet 6h Jun, 28 days Active Nystatin - 1 application to affected area 12h Active Oxybutynin Chloride ER 10 MG Orally Once a day 1 tablet 24h Active Ketorolac Tromethamine 60 MG/2ML Intramuscular now with Promethazine 2 ml Jun, 1 dose Active Silver Sulfadiazine 1 % Externally twice a day 1 application to affected area 12h Active Cranberry 450 MG Orally Three times a day 1 tablet with meals 8h March, Jul, 30 days Active Melatonin 3 MG Orally Once a day 1 tablet at bedtime as needed with food 24h Active Colace 100 mg Orally Once a day 1 capsule 24h Active Pyridium 200 mg Orally Three times a day as needed 1 tablet May, Active Promethazine HCl 50 MG/ML Injection now with Toradol 60mg IM 1 ml 28 Jun 1 dose Active Macrobid 100 mg Orally Once a day 1 capsule with food 24h 24 May, 2018 Sep, 30 days Active Fluticasone Propionate 50 MCG/ACT Nasally twice a day 1 spray in each nostril 12h Active Neurontin 300 MG Orally Once a day 1 capsule 24h Active Lyrica 75 MG Orally twice a day 1 capsule 12h March, 30 days Active Ketorolac Tromethamine 0.5 % Ophthalmic Four times a day 1 drop into affected eye 6h Active Sevelamer Carbonate 800 MG Orally Three times a day 1 tablet with meals 8h Active Chioma-Lanta 200-200-20 MG/5ML Orally Four times a day 10 ml as needed 6h Active Lorazepam 0.5 MG Orally Once a day 1 tablet 24h Feb, 28 days Active Dulcolax 5 mg Orally Once a day 2 tablet as needed 24h Active Naphazoline-Zinc Sulfate 0.02 % Ophthalmic- both eyes 4 times a day 2 gtts 6h Active Cyanocobalamin 1000 MCG/ML Injection once monthly 1 ml Active RESULTS No Results PROCEDURES Procedure Date Ordered Result Body Site Minor complication (15 mins) Jul 19, 2018 INSTRUCTIONS MEDICATIONS ADMINISTERED No Known Medications [...] History Chest pain/SOB/A-fib 02/2017 Hospitalization History Chest pain-[facility] 04/13/17 Hospitalization History UTI, respiratory failure, altered mental status-[facility] 09/13/17
--- OUTSIDE RECORDS SUMMARY | 2018-09-17 19:18 | XMS REPORT ---
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 insulin 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 status E11.9 Active 51080895 Problem Nephrolithiasis N20.0 Active 30953516 Problem Chronic kidney disease (CKD), unspecified stage N18.9 Active 553880317 Problem Urinary incontinence, unspecified type R32 Active 608995956 Problem Primary insomnia F51.01 Active 9134121 Problem Anxiety F41.9 Active 66887045 Problem Venous stasis dermatitis of both lower extremities I87.2 Active 48582192 Problem Stage 4 chronic kidney disease N18.4 Active 565065592 Problem Cataract H26.9 Active 277979380 Problem Obstructive sleep apnea syndrome G47.33 Active 38402794 Problem Depression, unspecified depression type F32.9 Active 00226296 Problem Hypothyroidism, unspecified type E03.9 Active 31753139 Problem Perennial allergic rhinitis, unspecified allergic rhinitis trigger J30.89 Active 833752229 Problem Restless leg syndrome G25.81 Active 69202427 Problem Closed fracture of left patella, unspecified fracture morphology, sequela S82.002S Active 41982998 Problem Gastroesophageal reflux disease without esophagitis K21.9 Active 746584623 Problem Atrial fibrillation, unspecified type I48.91 Active 18817548 Problem Morbid obesity due to excess calories E66.01 Active 776412748 Problem Other chronic pain G89.29 Active 86083224 Problem Ulcer L98.499 Active 625614911 ALLERGIES No Information ENCOUNTERS Encounter Location Date Diagnosis [place] [address] [address] Jul, [place] [address] [place] [id number] [place] [address] 14865- 0305 14 Jul, 2018 Via [facility] [address] [place] [id number] 13 Jul, 2018 LLQ abdominal pain R10.32 Via [facility] [address] [place] [id number] Jun, Intractable migraine without aura and with status migrainosus G43.011 and Left hip pain M25.552 [place] [address] [place] [id number] [place] [address] 38825- 5445 Jun, Other chronic pain G89.29 ; Arthralgia, unspecified joint M25.50 and Primary insomnia F51.01 [place] [address] [place] [id number] [place] [address] 36934- 1046 Jun, [place] [address] [place] [id number] [place] [address] 85618- 7691 May, Other chronic pain G89.29 ; Arthralgia, unspecified joint M25.50 and Primary insomnia F51.01 [place] [address] [address] May, Urinary tract infection without hematuria, site unspecified N39.0 [place] [id number] [place] [address] 11896- 4863 May, Bladder spasms N32.89 [place] [id number] [place] [address] 20514- 3310 May, Primary insomnia F51.01 [place] [id number] [place] [address] 02720- 4399 May, [place] [id number] [place] [address] 11285- 0953 May, Primary insomnia F51.01 and Arthralgia, unspecified joint M25.50 [facility] [address] [place] [address] 80696- 0290 May, Other chronic pain G89.29 Via [facility] [address] [place] [id number] May, Nephrolithiasis N20.0 ; Cataract H26.9 and Macrocytic anemia D53.9 [facility] [id number] [place] [address] 28142- 3768 May, [facility] [id number] [place] [address] 82734- 2110 Apr, [facility] [address] [id number] [place] [address] 59843- 0930 Apr, [facility] [id number] [place] [address] 12610- 1328 Apr, Primary insomnia F51.01 [facility] [address] [id number] [place] [address] 45161- 6154 Apr, [facility] [id number] [place] [address] 45294- 8970 March, Other chronic pain G89.29 Via [facility] [address] [place] [id number] March, Arthralgia, unspecified joint M25.50 ; Abnormal urine sediment R82.90 ; Venous stasis dermatitis of both lower extremities I87.2 ; Stage 4 chronic kidney disease N18.4 and Cataract of right eye, unspecified cataract type H26.9 [facility] [address] [place] [address] 28181- 9205 March, Primary insomnia F51.01 Via [facility] [address] [place] [id number] March, Cervicalgia M54.2 ; Acute pain of right shoulder M25.511 and Pain of left femur M89.8X5 [facility] [address] [id number] [place] [address] 97995- 5346 March, [place] [id number] [place] [address] 27740- 3516 March, Other chronic pain G89.29 [place] [address] [place] [id number] [place] [address] 34586- 0826 Feb, Via [facility] [address] [place] [id number] Feb, Leg swelling M79.89 [place] [address] [place] [id number] [place] [address] 99865- 0504 Feb, Primary insomnia F51.01 Via [facility] [address] [place] [id number] Feb, Fever in other diseases R50.81 and Intermittent left lower quadrant abdominal pain R10.32 [place] [address] [place] [id number] [place] [address] 82199- 8254 Feb, [place] [address] [place] [id number] [place] [address] 99231- 4887 Feb, [place] [address] [place] [id number] [place] [address] 47833- 0314 Feb, Depression, unspecified depression type F32.9 ; Hypothyroidism, unspecified type E03.9 ; 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, unspecified remote computer terminal operator insulin use status E11.9 and Anxiety F41.9 [place] [address] [place] [address] 65122- 9770 Feb, Other chronic pain G89.29 [facility] [place] [address] [place] [id number] [place] [id number] Jan, Other chronic pain G89.29 [place] [address] [place] [id number] [place] [address] 04198- 0020 Jan, Bladder spasms N32.89 [place] [address] [place] [id number] [place] [address] 22344- 0826 Jan, Bladder spasms N32.89 [place] [address] [place] [id number] [place] [address] 54019- 7273 Dec, Bladder spasms N32.89 [facility] [address] [facility] [id number] [address] 6[address] Dec, Depression, unspecified depression type F32.9 [facility] [address] [facility] [id number] [address] Dec, Via [facility] [address] [place] [id number] Dec, Hypothyroidism, unspecified type E03.9 ; Depression, unspecified depression type F32.9 ; Other chronic pain G89.29 ; Urinary retention R33.9 and Atrial fibrillation, unspecified type I48.91 [facility] [place] [address] [place] [id number] [place] [address] [id number] Dec, [facility] [place] [address] [place] [id number] [place] [address] [id number] Dec, Other chronic pain G89.29 [facility] [place] [address] [place] [id number] [place] [address] [id number] Nov, [facility] [place] [address] [id number] [place] [address] [id number] Nov, Other chronic pain G89.29 [facility] [address] [address] 9971 Nov, Other chronic pain G89.29 [facility] [address], [place] [address] Nov, [facility] [address], [place] [address] 7378 Nov, [facility] [address] [place] [address] 55387- 7295 Nov, Other chronic pain G89.29 [facility] [address] [address] Nov, Other chronic pain G89.29 [facility] [address] [place] [id number] [address] Oct, [facility] [address] [place] [address] 78570- 9973 Oct, Other chronic pain G89.29 [facility] [address] [address] [place] [id number] Oct, Weakness R53.1 ; Macrocytic anemia D53.9 ; Discolored skin L81.9 ; Other chronic pain G89.29 ; Dysuria R30.0 and Hayes catheter in place Z92.89 [facility] [address] [place] [address] 28936- 7057 Oct, Other chronic pain G89.29 [facility] [place] [address] [id number] [place] [address] [id number] Sep, [facility] [address] [place] [id number] [place] [address] 38286- 1666 Sep, [facility] [address] [place] [id number] [place] [address] 31725- 4560 Sep, [facility] [address] [place] [id number] [place] [address] [id number] Sep, [facility] [place] [address] [place] [id number] [place] [address] [id number] Sep, Other chronic pain G89.29 [facility] [id number] [place] [address] [id number]- 5426 Sep, [facility] [place] [address] [place] [address] [id number] [place] [address] [id number] Sep, Other chronic pain G89.29 [facility] [address] [place] [id number] Sep, Chronic urinary tract infection N39.0 ; Other chronic pain G89.29 ; Chronic kidney disease (CKD), unspecified stage N18.9 ; 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, unspecified nursing home insulin use status E11.9 ; Hypothyroidism, unspecified type E03.9 ; Depression, unspecified depression type F32.9 ; Cataract H26.9 ; Obstructive sleep apnea syndrome G47.33 ; Atrial fibrillation, unspecified type I48.91 ; History of femur fracture Z87.81 and [address] catheter in place Z92.89 [facility] [address] [place] [id number] [address] 3449 Sep, [facility] [address] [place] [id number] [address]- 0447 Aug, [facility] [address] [place] [id number] [place] [address] 86407- 6020 Aug, Other chronic pain G89.29 [facility] [address] [place] [id number] [place] [address] 31273- 1479 Aug, [facility] [address] [id number] [place] [address] 17387- 4906 Aug, [facility] [place] [address] [place] [id number] [place] [address] [id number] Aug, [facility] [address] [id number] [place] [address] 14175- 9220 Aug, [facility] [address] [place] [id number] [place] [address] 70407- 4658 Aug, 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, unspecified nursing home insulin use status E11.9 [facility] [address], [place] [address]- 0190 Aug, Other chronic pain G89.29 [facility] [address] [place] [id number] [place] [address] 54052- 7705 Aug, [facility] [address] [place] [id number] [address]- 2501 Aug, [facility] [address] [place] [id number] [place] [address] 27395- 6417 Jul, Other chronic pain G89.29 [facility] [address] [address]- 7371 Jul, [facility] [address] [place] [id number] [address]- 6942 Jul, Dark brown urine R82.99 [facility] [id number] [place] [address] 13835- 4647 Jul, Dark brown urine R82.99 [facility] [address] [address] 5367 14 Jul, 2017 [facility] [address] [place] [id number] [place] [address] 38586- 9010 Jun, Other chronic pain G89.29 [facility] [id number] [place] [address] 19356- 2136 Jun, 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, unspecified nursing home insulin use status E11.9 [place] [id number] [place] [address] 30467- 8777 May, Candidiasis, intertrigo B37.2 [place] [address] [place] [id number] [place] [address] 15562- 7350 May, Other chronic pain G89.29 [facility] [id number] [place] [address] 99735- 6755 May, [facility] [id number] [place] [address] 12314- 5664 May, [place] [id number] [place] [address] 56515- 2785 May, Candidiasis, intertrigo B37.2 [facility] [address] [place] [address] 54822- 9357 May, Atrial fibrillation, unspecified type I48.91 [place] [address] [place] [id number] [place] [address] 42851- 1612 May, Hypothyroidism, unspecified type E03.9 and Decreased renal function N28.9 [facility] [address] [address]- 4325 May, 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, unspecified nursing home insulin use status E11.9 [facility] [address] [address]- 3472 May, Dental examination Z01.20 [facility] [address] [place] [id number] [place] [address] 94105- 6923 May, Chronic kidney disease (CKD), unspecified stage N18.9 ; 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, unspecified remote computer terminal operator insulin use status E11.9 ; Hypothyroidism, unspecified type E03.9 ; Depression, unspecified depression type F32.9 ; Anemia, unspecified type D64.9 and Ulcer L98.499 [place] [address] [place] [id number] [place] [address] 81269- 2993 May, [facility] [address] [place] [id number] [place] [address] 55152- 9160 Apr, Other chronic pain G89.29 [place] [address] [place] [id number] [place] [address] 39169- 2584 Apr, Other chronic pain G89.29 [facility] [address] [address]- 5872 March, [facility] [address] [place] [id number] [place] [address] 90318- 0156 March, [facility] [address] [address]- 8668 March, [facility] [address] [place] [id number] [place] [address] 06065- 5457 March, Other chronic pain G89.29 [facility] [address] [address]- 5155 March, [facility] [address] [place] [id number] [place] [address] 80933- 1782 Feb, [facility] [address] [address]- 4226 Feb, 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, unspecified remote computer terminal operator insulin use status E11.9 ; Candidiasis, intertrigo B37.2 ; Decubitus ulcer of left buttock, unstageable L89.320 and Pressure ulcer of contiguous region involving right buttock and hip, unspecified ulcer stage L89.40 [facility] [address] [address]- 6922 Feb, Atrial fibrillation, unspecified type I48.91 [facility] [address] [id number] [place] [address] 07508- 7128 Feb, [facility] [address] [id number] [place] [address] 86808- 8498 Feb, [facility] [address] [place] [id number] [place] [address] 55712- 8337 Feb, Other chronic pain G89.29 [facility] [address] [id number] [place] [address] 36276- 0166 Jan, Other chronic pain G89.29 [facility] [address] [place] [address] 19293- 6145 Dec, [facility] [address] [id number] [place] [address] 45035- 6654 Dec, Lethargy R53.83 [facility] [address] [address]- 1497 17 Dec, 2016 [facility] [address] [address]- 1675 10 Dec, 2016 Other chronic pain G89.29 [facility] [address] [address]- 1106 Nov, [facility] [address] [id number] [place] [address] 75920- 1546 Nov, [facility] [address] [address]- 1388 Nov, Other chronic pain G89.29 [facility] [address] [place] [id number] [address]- 5757 Nov, [facility] [address] [address]- 0328 Nov, [facility] [address] [address]- 5828 Nov, [facility] [id number] [place] [address] 58347- 1294 Oct, Cough R05 [place] [address] [place] [id number] [place] [address] 85308- 5798 Oct, Urinary tract infection, site not specified N39.0 [place] [address] [place] [id number] [place] [address] 72374- 9491 16 Oct, 2016 Other chronic pain G89.29 [place] [address] [place] [id number] [place] [address] 42503- 9854 Oct, 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, unspecified remote computer terminal operator insulin use status E11.9 ; Other chronic [...] J30.89 ; Nausea R11.0 and Candidiasis B37.9 [place] [address] [address]- 5220 Oct, [place] [address] [place] [id number] [place] [address] 24273- 9148 Oct, [facility] [address] [address]- 7587 Oct, [place] [id number] [place] [address] 97633- 7648 Oct, Chronic kidney disease (CKD), unspecified stage N18.9 [facility] [address] [place] [id number] [place] [address] 07275- 6158 Oct, [facility] [address] [id number] [place] [address] 99384- 6435 Sep, Other chronic pain G89.29 [facility] [address] [place] [id number] [place] [address] 36380- 2546 Sep, Chronic kidney disease (CKD), unspecified stage N18.9 and Senile cataract of right eye, unspecified age-related cataract type H25.9 [facility] [id number] [place] [address] 33410- 8960 Sep, [facility] [address] [id number] [place] [address] 85971- 4090 Sep, [facility] [id number] [place] [address] 89558- 2611 Sep, [facility] [id number] [place] [address] 04189- 9757 Sep, [facility] [id number] [place] [address] 15214- 5536 Sep, [facility] [id number] [address]- 5033 Aug, [facility] [id number] [place] [address] 95288- 1938 Aug, [facility] [id number] [place] [address] 17151- 5587 Aug, [facility] [id number] [place] [address] 94710- 4602 Aug, Encounter to establish care Z76.89 ; Other chronic pain G89.29 ; Chronic kidney disease (CKD), unspecified stage N18.9 ; Obstructive sleep apnea syndrome G47.33 ; 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, unspecified remote computer terminal operator insulin use status E11.9 ; Urinary incontinence, unspecified type R32 ; Depression, unspecified depression type F32.9 ; History of femur fracture Z87.81 ; History of fractured kneecap Z87.81 ; Hypothyroidism , unspecified type E03.9 ; Cataract H26.9 and Gastroesophageal reflux disease without esophagitis K21.9 [place] [address] [address]- 9541 Aug, [place] [id number] [place] [address] 53389- 6579 Aug, Urinary incontinence, unspecified type R32 [place] [id number] [place] [address] 18091- 6143 Aug, [place] [id number] [place] [address] 36113- 8144 Jul, [facility] [id number] Jul, 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, unspecified nursing home insulin use status E11.9 ; Chronic kidney [...] E03.9 and Constipation, unspecified constipation type K59.00 [place] [address] [place] [id number] [address]- 8121 Jul, [place] [id number] [place] [address] 15435- 2195 Jul, [facility] [id number] Jul, Anemia, unspecified type D64.9 ; Acute renal failure, unspecified acute renal failure type N17.9 ; Other chronic pain G89.29 ; Obstructive sleep apnea syndrome G47.33 and 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, unspecified nursing home insulin use status E11.9 [facility] [address] [address]- 0215 Jul, [facility] [id number] [place] [address] 41480- 4925 Jul, [facility] [id number] [place] [address] 56192- 2689 Jul, [facility] [id number] [place] [address] 33046- 4620 Jul, [facility] [id number] [place] [address] 70058- 4246 Jul, [facility] [address] [place] [id number] Jun, Other chronic pain G89.29 ; Hayes catheter in place Z92.89 ; Chronic kidney disease (CKD), unspecified stage N18.9 and Blisters of multiple sites R23.8 [facility] [address] [address]- 4446 Jun, [facility] [id number] [place] [address] 28967- 7909 Jun, [facility] [address] [address]- 5438 Jun, [facility] [address] [address]- 0832 Jun, [facility] [address] [address]- 8325 Jun, [facility] [id number] [place] [address] 78836- 9745 Jun, [facility] [address] [address]- 2416 Jun, [facility] [id number] [place] [address] 76798- 4537 Jun, [facility] [address] [facility] [id number] [address] Jun, [facility] [address] [facility] [id number] [address] Jun, [facility] [address] [id number] [address] Jun, [facility] [address] [id number] [address] May, [facility] [address] [facility] [id number] [address] May, [facility] [address] [facility] [id number] [address] May, Other chronic pain G89.29 [facility] [address] [place], [place] [id number] May, Encounter to establish care Z76.89 ; 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, unspecified remote computer terminal operator insulin use status E11.9 ; Hypothyroidism, unspecified [...] Assessed REASON FOR VISIT Controlled Med Refill 07/18/18 PLAN OF CARE VITAL SIGNS MEDICATIONS Medication Instructions Dosage Frequency Start Date End Date Duration Status Ambien 5 mg Orally Once a day 1 tablet at bedtime 24h Feb, 28 days Active Lyrica 75 MG Orally twice a day 1 capsule 12h March, 30 days Active Lorazepam 0.5 MG Orally Once a day 1 tablet 24h Feb, 28 days Active Oxycodone-Acetaminophen 10-325 MG Orally 4 times a day 1 tablet 6h Jun, 28 days Active RESULTS No Results PROCEDURES [...] Acute Kidney Injury 08/05/16 Hospitalization History UTI, Sepsis--[facility] Hospitalization History Chest pain/SOB/A-fib 02/2017 Hospitalization History Chest pain-[facility] 04/13/17 Hospitalization History UTI, respiratory failure, altered mental status-[facility] 09/13/17
--- OUTSIDE RECORDS SUMMARY | 2018-09-17 19:19 | XMS REPORT ---
Author Author LATONYA KIM [facility] Address [address] [place] [address] Care Team Providers Care Vehicle Maintenance Technician Name Role Phone LATONYA KIM Unavailable PROBLEMS Type Condition ICD9-CM Code KIL91-MX Code Onset Dates Condition Status SNOMED Code Problem Decreased renal function N28.9 Active 96566972 Problem Bladder spasms N32.89 Active 300475856 Problem Chronic fatigue R53.82 Active 25279826 Problem Intractable migraine without aura and with status migrainosus G43.011 Active 626019969 Problem 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, unspecified manager applied insulin use status E11.9 Active 40890433 Problem Nephrolithiasis N20.0 Active 89794165 Problem Chronic kidney disease (CKD), unspecified stage N18.9 Active 703768518 Problem Urinary incontinence, unspecified type R32 Active 710371960 Problem Primary insomnia F51.01 Active 9480571 Problem Anxiety F41.9 Active 34564146 Problem Venous stasis dermatitis of both lower extremities I87.2 Active 92366023 Problem Stage 4 chronic kidney disease N18.4 Active 678783270 Problem Cataract H26.9 Active 526530613 Problem Obstructive sleep apnea syndrome G47.33 Active 00631417 Problem Depression, unspecified depression type F32.9 Active 11277250 Problem Hypothyroidism, unspecified type E03.9 Active 00621254 Problem Perennial allergic rhinitis, unspecified allergic rhinitis trigger J30.89 Active 818755961 Problem Restless leg syndrome G25.81 Active 61391024 Problem Closed fracture of left patella, unspecified fracture morphology, sequela S82.002S Active 21217397 Problem Gastroesophageal reflux disease without esophagitis K21.9 Active 977858296 Problem Atrial fibrillation, unspecified type I48.91 Active 01022563 Problem Morbid obesity due to excess calories E66.01 Active 563856500 Problem Other chronic pain G89.29 Active 65981811 Problem Ulcer L98.499 Active 000661232 ALLERGIES No Information ENCOUNTERS Encounter Location Date Diagnosis [facility] [address] [place] [id number] Jun, Intractable migraine without aura and with status migrainosus G43.011 and Left hip pain M25.552 [place] [address] [place] [address] 72796- 4857 Jun, Other chronic pain G89.29 ; Arthralgia, unspecified joint M25.50 and Primary insomnia F51.01 [place] [address] [place] [id number] [place] [address] 11904- 2054 Jun, [place] [address] [address]- [address] May, Other chronic pain G89.29 ; Arthralgia, unspecified joint M25.50 and Primary insomnia F51.01 [place] [address] [place] [id number] [place] [address] 87112- 5522 May, Urinary tract infection without hematuria, site unspecified N39.0 [place] [address] [place] [id number] [place] [address] 99717- 6047 May, Bladder spasms N32.89 [place] [address] [place] [id number] [place] [address] 11321- 9915 May, Primary insomnia F51.01 [place] [address] [place] [id number] [place] [address] 83161- 5149 May, [place] [address] [place] [id number] [place] [address] 26316- 9978 May, Primary insomnia F51.01 and Arthralgia, unspecified joint M25.50 [place] [address] [place] [id number] [place] [address] 07746- 4491 May, Other chronic pain G89.29 [facility] [address] [place] [id number] May, Nephrolithiasis N20.0 ; Cataract H26.9 and Macrocytic anemia D53.9 [place] [address] [place] [id number] [address] May, [facility] [address], [place] [address] 8312 Apr, [facility] [address], [place] [address] 3304 Apr, [place] [address] [place] [address] 83921- 9105 Apr, Primary insomnia F51.01 [facility] [id number], [place] [address] 7131 Apr, [place] [address], [place] [address] 2946 March, Other chronic pain G89.29 [facility] [address] [place] [id number] March, Arthralgia, unspecified joint M25.50 ; Abnormal urine sediment R82.90 ; Venous stasis dermatitis of both lower extremities I87.2 ; Stage 4 chronic kidney disease N18.4 and Cataract of right eye, unspecified cataract type H26.9 [place] [address] [id number] [address] 0[address] March, Primary insomnia F51.01 [facility] [facility] [address] [place] [id number] March, Cervicalgia M54.2 ; Acute pain of right shoulder M25.511 and Pain of left femur M89.8X5 [facility] [address] [facility] [id number] [address] March, [place] [address] [id number], [place] [address] 3882 March, Other chronic pain G89.29 [place] [address] [address] [id number] [address] 5860 Feb, [facility] [address] [place] [id number] Feb, Leg swelling M79.89 [facility] [address] [place] [address] 98780- 0452 Feb, Primary insomnia F51.01 [facility] [employer] [address] [place] [id number] Feb, Fever in other diseases R50.81 and Intermittent left lower quadrant abdominal pain R10.32 [place] [address] [place] [id number] [place] [address] 18348- 8347 Feb, [place] [address] [place] [id number] [place] [address] 43841- 5397 Feb, [place] [address] [place] [id number] [place] [address] 58769- 9309 Feb, Depression, unspecified depression type F32.9 ; Hypothyroidism, unspecified type E03.9 ; 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, unspecified manager applied insulin use status E11.9 and Anxiety F41.9 [place] [address] [place] [id number] [place] [address] 97291- 6781 Feb, Other chronic pain G89.29 [facility] [id number] [place] [address] [id number] Jan, Other chronic pain G89.29 [place] [address] [place] [id number] [place] [address] 13353- 9572 Jan, Bladder spasms N32.89 [facility] [address] [place] [id number] [place] [address] 36566- 6788 Jan, Bladder spasms N32.89 [place] [address] [place] [id number] [place] [address] 74382- 3303 Dec, Bladder spasms N32.89 [place] [address] [place] [id number] [place] [address] 39660- 9022 Dec, Depression, unspecified depression type F32.9 [facility] [address] [place] [id number] [place] [address] 51489- 6816 Dec, [facility] [employer] [address] [place] [place] [id number] Dec, Hypothyroidism, unspecified type E03.9 ; Depression, unspecified depression type F32.9 ; Other chronic pain G89.29 ; Urinary retention R33.9 and Atrial fibrillation, unspecified type I48.91 [facility] [id number] [id number] Dec, [facility] [id number] [place] [address] [id number] Dec, Other chronic pain G89.29 [facility] [id number] [place] [address] [id number] Nov, [facility] [id number] [place] [address] [id number] Nov, Other chronic pain G89.29 [facility] [address] [place] [address] 08233- 0036 Nov, Other chronic pain G89.29 [facility] [address] [place] [address] 25598- 3769 Nov, [facility] [address] [address] [id number] [place] [address] 07592- 9578 Nov, [facility] [address] [place] [address] 81874- 3696 Nov, Other chronic pain G89.29 [facility] [address] [place] [address] 65796- 7536 Nov, Other chronic pain G89.29 [facility] [address] [place] [address] 13028- 3642 Oct, [facility] [address] [place] [address] 69112 2546 Oct, Other chronic pain G89.29 [facility] [address] [place] [id number] Oct, Weakness R53.1 ; Macrocytic anemia D53.9 ; Discolored skin L81.9 ; Other chronic pain G89.29 ; Dysuria R30.0 and Hayes catheter in place Z92.89 [facility] [address] [place] [address] 86155- 6999 Oct, Other chronic pain G89.29 [facility] [id number] [address] Sep, [facility] [address] [place] [id number] [place] [address] 73022- 7648 Sep, [facility] [address] [place] [address] 34403- 3816 Sep, [facility] [id number] [place] [address] [id number] Sep, [facility] [id number] [place] [address] [id number] Sep, Other chronic pain G89.29 [facility] [address] [place] [id number] [place] [address] 62146- 5851 Sep, [facility] [address] [id number] [place] [address] [id number] Sep, Other chronic pain G89.29 [facility] [address] [address] [place] [id number] Sep, Chronic urinary tract infection N39.0 ; Other chronic pain G89.29 ; Chronic kidney disease (CKD), unspecified stage N18.9 ; 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, unspecified manager applied insulin use status E11.9 ; Hypothyroidism, unspecified type E03.9 ; Depression, unspecified depression type F32.9 ; Cataract H26.9 ; Obstructive sleep apnea syndrome G47.33 ; Atrial fibrillation, unspecified type I48.91 ; History of femur fracture Z87.81 and Hayes catheter in place Z92.89 [facility] [address], [place] [address]- 9960 Sep, [facility] [address] [place] [address] 97346- 8150 Aug, [facility] [address], [place] [address]- 3260 Aug, Other chronic pain G89.29 [facility] [address], [place] [address]- 2441 Aug, [facility] [address], [place] [address]- 9367 Aug, [facility] [place] [facility] [id number] [place] [address] [id number] Aug, [facility] [address] [place] [address] 20437- 5732 Aug, [facility] [address] [place] [address] 33938- 5914 Aug, 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, unspecified prison insulin use status E11.9 [facility] [address] [place] [address] 79179- 1974 Aug, Other chronic pain G89.29 [facility] [address], [place] [address]- 4676 18 Aug, 2017 [facility] [address] [place] [address] 51317- 7615 16 Aug, 2017 [facility] [address] [place] [address] 28783- 3738 22 Jul, 2017 Other chronic pain G89.29 [facility] [address], [place] [address]- 6693 19 Jul, 2017 [facility] [address], [place] [address]- 8129 19 Jul, 2017 Dark brown urine R82.99 [facility] [address], [place] [address]- 8775 19 Jul, 2017 Dark brown urine R82.99 [facility] [address] [place] [address] 05143- 1399 Jul, [place] [address] [place] [address] 69275- 5950 Jun, Other chronic pain G89.29 [place] [address] [place] [id number] [place] [address] 52999- 7302 Jun, 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, unspecified prison insulin use status E11.9 [place] [address] [place] [id number] [place] [address] 73211- 1665 May, Candidiasis, intertrigo B37.2 [place] [address] [place] [id number] [place] [address] 68580- 7896 May, Other chronic pain G89.29 [place] [address] [place] [id number] [place] [address] 35121- 5298 May, [place] [address] [place] [id number] [place] [address] 18526- 7358 May, [place] [address] [place] [id number] [place] [address] 00130- 6538 May, Candidiasis, intertrigo B37.2 [place] [address] [place] [id number] [place] [address] 08585- 3450 May, Atrial fibrillation, unspecified type I48.91 [place] [address] [place] [id number] [place] [address] 54575- 8393 May, Hypothyroidism, unspecified type E03.9 and Decreased renal function N28.9 [place] [address] [place] [id number] [place] [address] 11083- 3018 May, 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, unspecified prison insulin use status E11.9 [place] [address] [place] [id number] [place] [address] 87134- 9380 May, Dental examination Z01.20 [place] [address] [place] [id number] [place] [address] 37730- 4274 May, Chronic kidney disease (CKD), unspecified stage N18.9 ; 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, unspecified prison insulin use status E11.9 ; Hypothyroidism, unspecified type E03.9 ; Depression, unspecified depression type F32.9 ; Anemia, unspecified type D64.9 and Ulcer L98.499 [place] [address], [place] [address]- 7909 May, [facility] [address] [place] [id number] [place] [address] 40425- 0798 Apr, Other chronic pain G89.29 [place] [address] [place] [id number] [place] [address] 90441- 8692 Apr, Other chronic pain G89.29 [place] [address] [place] [id number] [place] [address] 69998- 2966 March, [place] [address] [place] [id number] [place] [address] 32052- 3158 March, [place] [address] [place] [id number] [place] [address] 87908- 3207 March, [facility] [address] [place] [id number] [place] [address] 14281- 2670 March, Other chronic pain G89.29 [place] [address] [place] [id number] [place] [address] 57352- 4530 March, [place] [address], [place] [address]- 9323 Feb, [facility] [address] [place] [id number] [place] [address] 09921- 4252 Feb, 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, unspecified prison insulin use status E11.9 ; Candidiasis, intertrigo B37.2 ; Decubitus ulcer of left buttock, unstageable L89.320 and Pressure ulcer of contiguous region involving right buttock and hip, unspecified ulcer stage L89.40 [facility] [address], [place] [address]- 5717 Feb, Atrial fibrillation, unspecified type I48.91 [facility] [address] [facility] [id number] [address]- 5051 Feb, [facility] [address] [place] [address] 79514- 0256 Feb, [facility] [address], [place] [address]- 8756 Feb, Other chronic pain G89.29 [facility] [address] [place] [address] 68122- 6987 Jan, Other chronic pain G89.29 [facility] [address] [place] [address] 11803- 7356 Dec, [facility] [address] [place] [address] 64809- 6452 Dec, Lethargy R53.83 [facility] [address] [place] [address] 15027- 6498 17 Dec, 2016 [facility] [address], [place] [address]- 9553 Dec, Other chronic pain G89.29 [facility] [address], [place] [address]- 4800 Nov, [facility] [address], [place] [address]- 2081 Nov, [facility] [address], [place] [address]- 3423 Nov, Other chronic pain G89.29 [facility] [address], [place] [address]- 5518 Nov, [facility] [address], [place] [address]- 7789 Nov, [facility] [address], [place] [address]- 2852 Nov, [facility] [address] [id number] [place] [address] 90718- 2072 Oct, Cough R05 [facility] [address] [id number] [place] [address] 34775- 8427 Oct, Urinary tract infection, site not specified N39.0 [facility] [address] [id number] [place] [address] 76416- 6260 16 Oct, 2016 Other chronic pain G89.29 [place] [address] [place] [id number] [place] [address] 30957- 1115 Oct, 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, unspecified manager applied insulin use status E11.9 ; Other chronic [...] J30.89 ; Nausea R11.0 and Candidiasis B37.9 [place] [address] [place] [id number] [place] [address] 81890- 2129 Oct, [place] [address] [place] [id number] [place] [address] 15400- 1586 Oct, [place] [address] [place] [id number] [place] [address] 31926- 3145 Oct, [place] [address] [place] [id number] [place] [address] 33904- 7060 Oct, Chronic kidney disease (CKD), unspecified stage N18.9 [place] [address] [place] [id number] [place] [address] 65827- 1734 Oct, [place] [address] [place] [id number] [place] [address] 30140- 2749 Sep, Other chronic pain G89.29 [place] [address], [place] [address]- 8551 Sep, Chronic kidney disease (CKD), unspecified stage N18.9 and Senile cataract of right eye, unspecified age-related cataract type H25.9 [facility] [address], [place] [address]- 3471 Sep, [facility] [address] [place] [id number] [address]- 9898 Sep, [facility] [id number] [address]- 3335 Sep, [facility] [address] [place] [id number] [place] [address] 78015- 6868 Sep, [facility] [address], [place] [address]- 0224 Sep, [facility] [address] [place] [id number] [place] [address] 59284- 0256 Aug, [facility] [address], [place] [address]- 8523 Aug, [facility] [address], [place] [address]- 1556 Aug, [facility] [address], [place] [address]- 7632 Aug, Encounter to establish care Z76.89 ; Other chronic pain G89.29 ; Chronic kidney disease (CKD), unspecified stage N18.9 ; Obstructive sleep apnea syndrome G47.33 ; 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, unspecified manager applied insulin use status E11.9 ; Urinary incontinence, unspecified type R32 ; Depression, unspecified depression type F32.9 ; History of femur fracture Z87.81 ; History of fractured kneecap Z87.81 ; Hypothyroidism , unspecified type E03.9 ; Cataract H26.9 and Gastroesophageal reflux disease without esophagitis K21.9 [facility] [address], [place] [address]- 8559 14 Aug, 2016 [place] [address], [place] [address]- 2669 Aug, Urinary incontinence, unspecified type R32 [place] [address] [place] [address] 84605- 0350 Aug, [place] [address] [place] [address] 08687- 6839 Jul, [address] [id number] Jul, 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, unspecified manager applied insulin use status E11.9 ; Chronic kidney [...] E03.9 and Constipation, unspecified constipation type K59.00 [place] [address] [place] [address] 86009- 3124 19 Jul, 2016 [place] [address] [place] [address] 77801- 2783 16 Jul, [address] [id number] Jul, Anemia, unspecified type D64.9 ; Acute renal failure, unspecified acute renal failure type N17.9 ; Other chronic pain G89.29 ; Obstructive sleep apnea syndrome G47.33 and 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, unspecified manager applied insulin use status E11.9 [place] [address] [place] [address] 35525- 9082 13 Jul, 2016 [place] [address] [place] [address] 63762- 8263 Jul, [place] [address] [place] [id number] [place] [address]- 5781 Jul, [facility] [address] [id number] [place] [address]- 0447 Jul, [facility] [address] [facility] [id number] [place] [address]- 2548 Jul, [facility] [address] [place] [id number] Jun, Other chronic pain G89.29 ; Hayes catheter in place Z92.89 ; Chronic kidney disease (CKD), unspecified stage N18.9 and Blisters of multiple sites R23.8 [facility] [address] [id number] [place] [address] Jun, [facility] [address] [id number] [place] [address] Jun, [facility] [id number] [place] [address] Jun, [facility] [address] [id number] [place] [address] Jun, [facility] [address] [id number] [place] [address] Jun, [facility] [address] [id number] [place] [address] Jun, [facility] [address] [id number] [place] [address] Jun, [facility] [address] [id number] [place] [address] Jun, [facility] [address] [id number] [place] [address] Jun, [facility] [address] [id number] [place] [address] Jun, [facility] [address] [id number] [place] [address] Jun, [facility] [address] [id number], [place] [address] May, [facility] [address] [id number], [place] [address] May, [facility] [address] [id number] [address] May, Other chronic pain G89.29 [facility] [address] [place], [place] [id number] May, Encounter to establish care Z76.89 ; 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, unspecified manager applied insulin use status E11.9 ; Hypothyroidism, unspecified [...] Frequency Start Date End Date Duration Status Lorazepam 0.5 MG Orally Once a day 1 tablet 24h 12 Feb, 2018 28 days Active Oxycodone-Acetaminophen 10-325 MG Orally 4 times a day 1 tablet 6h 30 May, 2018 28 days Active Ambien 5 mg Orally Once a day 1 tablet at bedtime 24h 17 Feb, 2018 28 days Active Lyrica 75 MG Orally twice a day 1 capsule 12h March, 30 days Active RESULTS No Results PROCEDURES No [...] Acute Kidney Injury 08/05/16 Hospitalization History UTI, Sepsis--[facility] Hospitalization History Chest pain/SOB/A-fib 02/2017 Hospitalization History Chest pain-[facility] 04/13/17 Hospitalization History UTI, respiratory failure, altered mental status-[facility] 09/13/17
--- OUTSIDE RECORDS SUMMARY | 2018-09-17 19:19 | XMS REPORT ---
Author Author LATONYA KIM [facility] Address [address] [place] [address] Care Team Providers Care Process Equipment Operator Name Role Phone LATONYA KIM Unavailable PROBLEMS Type Condition ICD9-CM Code [id number] Code Onset Dates Condition Status SNOMED Code Problem Decreased renal function N28.9 Active 85399187 Problem Bladder spasms N32.89 Active 370541574 Problem Chronic fatigue R53.82 Active 48161677 Problem Intractable migraine without aura and with status migrainosus G43.011 Active 006602641 Problem 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, unspecified termite helper insulin use status E11.9 Active 93681586 Problem Nephrolithiasis N20.0 Active 01783876 Problem Chronic kidney disease (CKD), unspecified stage N18.9 Active 585873673 Problem Urinary incontinence, unspecified type R32 Active 129909192 Problem Primary insomnia F51.01 Active 2015781 Problem Anxiety F41.9 Active 81014287 Problem Venous stasis dermatitis of both lower extremities I87.2 Active 30164754 Problem Stage 4 chronic kidney disease N18.4 Active 365801669 Problem Cataract H26.9 Active 592110204 Problem Obstructive sleep apnea syndrome G47.33 Active 17435085 Problem Depression, unspecified depression type F32.9 Active 43616236 Problem Hypothyroidism, unspecified type E03.9 Active 17504772 Problem Perennial allergic rhinitis, unspecified allergic rhinitis trigger J30.89 Active 978491296 Problem Restless leg syndrome G25.81 Active 08169800 Problem Closed fracture of left patella, unspecified fracture morphology, sequela S82.002S Active 22009758 Problem Gastroesophageal reflux disease without esophagitis K21.9 Active 864592141 Problem Atrial fibrillation, unspecified type I48.91 Active 38677389 Problem Morbid obesity due to excess calories E66.01 Active 566358874 Problem Other chronic pain G89.29 Active 33105921 Problem Ulcer L98.499 Active 493860587 ALLERGIES No Information ENCOUNTERS Encounter Location Date Diagnosis [place] [id number], [place] [address] 14 Jul, 2018 Via [facility] [address] [place] [id number] 13 Jul, 2018 LLQ abdominal pain R10.32 Via [facility] [employer] [address] [place] [id number] Jun, Intractable migraine without aura and with status migrainosus G43.011 and Left hip pain M25.552 [place] [id number] [place] [address] 62237- 9116 Jun, Other chronic pain G89.29 ; Arthralgia, unspecified joint M25.50 and Primary insomnia F51.01 [place] [address] [id number] [place] [address] 95487- 6549 Jun, [place] [id number] [place] [address] 58856- 2810 May, Other chronic pain G89.29 ; Arthralgia, unspecified joint M25.50 and Primary insomnia F51.01 [place] [id number] [place] [address] 22327- 6673 May, Urinary tract infection without hematuria, site unspecified N39.0 [place] [id number] [place] [address] 61340- 4394 May, Bladder spasms N32.89 [place] [id number] [place] [address] 45953- 7848 May, Primary insomnia F51.01 [place] [id number] [place] [address] 35314- 1078 May, [place] [id number] [place] [address] 48311- 0925 May, Primary insomnia F51.01 and Arthralgia, unspecified joint M25.50 [place] [id number] [place] [address] 55473- 4874 May, Other chronic pain G89.29 Via [facility] [address] [place] [id number] May, Nephrolithiasis N20.0 ; Cataract H26.9 and Macrocytic anemia D53.9 [facility] [address], [place] [address] 3597 May, [facility] [id number] [place] [address] 76942- 8886 Apr, [facility] [id number] [place] [address] 54565- 0390 Apr, [place] [id number] [place] [address] 58396- 2461 Apr, Primary insomnia F51.01 [place] [id number] [place] [address] 53571- 2972 Apr, [place] [id number] [place] [address] 29996- 6650 March, Other chronic pain G89.29 Via [facility] [address] [place] [id number] March, Arthralgia, unspecified joint M25.50 ; Abnormal urine sediment R82.90 ; Venous stasis dermatitis of both lower extremities I87.2 ; Stage 4 chronic kidney disease N18.4 and Cataract of right eye, unspecified cataract type H26.9 [place] [address] [place] [address] 40602- 7986 March, Primary insomnia F51.01 Via [facility] [address] [place] [id number] March, Cervicalgia M54.2 ; Acute pain of right shoulder M25.511 and Pain of left femur M89.8X5 [facility] [address] [place] [address] 83562- 7174 March, [place] [address] [id number] [place] [address] 69598- 2427 March, Other chronic pain G89.29 [facility] [address], [place] [address] 2714 Feb, Via [facility] [employer] [address] [place] [id number] Feb, Leg swelling M79.89 [facility] [address] [place] [address] 70437- 5692 Feb, Primary insomnia F51.01 Via [facility] [employer] [address] [place] [id number] Feb, Fever in other diseases R50.81 and Intermittent left lower quadrant abdominal pain R10.32 [place] [address] [address] [id number] [place] [address] 62011- 3249 Feb, [place] [address] [id number] [place] [address] 99977- 7604 Feb, [place] [id number] [place] [address] 15289- 9610 Feb, Depression, unspecified depression type F32.9 ; Hypothyroidism, unspecified type E03.9 ; 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, unspecified senior living insulin use status E11.9 and Anxiety F41.9 [place] [address] [place] [address] 07046- 9303 Feb, Other chronic pain G89.29 [facility] [place] [id number] [place] [address] [id number] Jan, Other chronic pain G89.29 [facility] [address] [place] [address] 53553- 5177 Jan, Bladder spasms N32.89 [place] [address] [id number] [place] [address] 28337- 3175 Jan, Bladder spasms N32.89 [place] [address] [address] [id number] [place] [address] 81938- 0428 Dec, Bladder spasms N32.89 [facility] [address] [place] [address] 4069 Dec, Depression, unspecified depression type F32.9 [facility] [address] [place] [address] 30731- 0907 Dec, Via [facility] [place] [address] [place] [id number] Dec, Hypothyroidism, unspecified type E03.9 ; Depression, unspecified depression type F32.9 ; Other chronic pain G89.29 ; Urinary retention R33.9 and Atrial fibrillation, unspecified type I48.91 [facility] [place] [id number] [place] [address] [id number] Dec, [facility] [place] [id number] [place] [address] [id number] Dec, Other chronic pain G89.29 [facility] [place] [id number] [place] [address] [id number] Nov, [facility] [place] [id number] [place] [address] [id number] Nov, Other chronic pain G89.29 [facility] [address] [place] [address] 50400- 6415 Nov, Other chronic pain G89.29 [facility] [address], [place] [address] 7182 Nov, [facility] [address] [place] [address] 65770- 9821 Nov, [facility] [address] [place] [address] 56968- 4965 Nov, Other chronic pain G89.29 [facility] [address] [place] [address] 72428689- 2049 Nov, Other chronic pain G89.29 [facility] [address] 6863 Oct, [facility] [id number] [address] 14 Oct, 2017 Other chronic pain G89.29 Via [facility] [employer] [address] [place] [id number] Oct, Weakness R53.1 ; Macrocytic anemia D53.9 ; Discolored skin L81.9 ; Other chronic pain G89.29 ; Dysuria R30.0 and Hayes catheter in place Z92.89 [facility] [address] [place] [address] [id number]- 1125 Oct, Other chronic pain G89.29 [facility] [place] [id number] [place] [address] [id number] Sep, [facility] [id number] [place] [address] [id number]- 2020 Sep, [facility] [address] [address] 3274 Sep, [facility] [place] [id number] [place] [address] [id number] Sep, [facility] [place] [id number] [place] [address] [id number] Sep, Other chronic pain G89.29 [facility] [address] [address] 2348 Sep, [facility] [place] [id number] [place] [address] [id number] Sep, Other chronic pain G89.29 Via [facility] [employer] [address] [place] [id number] Sep, Chronic urinary tract infection N39.0 ; Other chronic pain G89.29 ; Chronic kidney disease (CKD), unspecified stage N18.9 ; 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, unspecified termite helper insulin use status E11.9 ; Hypothyroidism, unspecified type E03.9 ; Depression, unspecified depression type F32.9 ; Cataract H26.9 ; Obstructive sleep apnea syndrome G47.33 ; Atrial fibrillation, unspecified type I48.91 ; History of femur fracture Z87.81 and [address] catheter [address] place Z92.[address] [facility] [address] [facility] [id number], [place] [address] 0953 Sep, [facility] [address] [facility] [id number] [place] [address] 16610- 0280 Aug, [facility] [address] [facility] [id number], [place] [address]- 4543 Aug, Other chronic pain G89.[address] [facility] [address] [facility] [id number] [place] [address] 65526- 3435 Aug, [facility] [address] [facility] [id number] [place] [address] 89222- 3196 Aug, [place] [facility] [id number] [place] [address] [id number] Aug, [facility] [id number] [place] [address] 80771- 1561 Aug, [facility] [id number] [place] [address] 10240- 5877 Aug, 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, unspecified termite helper insulin use status E11.[address] [facility] [address] [place] [address] 82329- 4425 Aug, Other chronic pain G89.[address] [facility] [address], [place] [address]- 8789 Aug, [facility] [address] [place] [address] 25597- 6138 Aug, [facility] [address] [place] [address] 81536- 1762 Jul, Other chronic pain G89.[address] [facility] [address] [place] [id number] [place] [address] 40322- 2409 Jul, [facility] [address], [place] [address]- 0470 Jul, Dark brown urine R82.99 [facility] [address], [place] [address]- 9628 19 Jul, 2017 Dark brown urine R82.99 [facility] [id number], [place] [address]- 9506 14 Jul, 2017 [facility] [address], [place] [address]- 8312 Jun, Other chronic pain G89.29 [place] [address] [place] [address] [id number] [place] [address] 63930- 0544 Jun, 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, unspecified termite helper insulin use status E11.9 [place] [address] [place] [address] 96413- 8774 31 May, 2017 Candidiasis, intertrigo B37.2 [place] [address] [place] [address] [id number] [place] [address] 29298- 1596 May, Other chronic pain G89.29 [place] [address] [place] [address] 81176- 2948 May, [place] [address] [place] [address] 92287- 2530 May, [place] [address] [place] [address] 29240- 3220 May, Candidiasis, intertrigo B37.2 [place] [address], [place] [address]- 3750 May, Atrial fibrillation, unspecified type I48.91 [place] [address], [place] [address]- 5064 May, Hypothyroidism, unspecified type E03.9 and Decreased renal function N28.9 [place] [address], [place] [address]- 2521 May, 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, unspecified senior living insulin use status E11.9 [place] [address] [place] [address] 29101- 7300 May, Dental examination Z01.20 [place] [id number] [place] [address] 88885- 4571 May, Chronic kidney disease (CKD), unspecified stage N18.9 ; 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, unspecified termite helper insulin use status E11.9 ; Hypothyroidism, unspecified type E03.9 ; Depression, unspecified depression type F32.9 ; Anemia, unspecified type D64.9 and Ulcer L98.499 [place] [id number] [place] [address] 63978- 4919 May, [place] [address] [place] [address] [id number] [place] [address] 18456- 9253 Apr, Other chronic pain G89.29 [place] [address] [place] [id number] [place] [address] 70915- 5296 Apr, Other chronic pain G89.29 [place] [address] [id number] [place] [address] 62148- 0357 March, [place] [address] [id number] [place] [address] 71159- 9145 March, [place] [id number] [place] [address] 34758- 9751 March, [place] [id number] [place] [address] 85936- 2475 March, Other chronic pain G89.29 [place] [id number] [place] [address] 98071- 4303 March, [place] [id number] [place] [address] 76652- 9405 Feb, [place] [id number] [place] [address] 19534- 4727 Feb, 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, unspecified termite helper insulin use status E11.9 ; Candidiasis, intertrigo B37.2 ; Decubitus ulcer of left buttock, unstageable L89.320 and Pressure ulcer of contiguous region involving right buttock and hip, unspecified ulcer stage L89.40 [facility] [address] [place] [address] 40352- 2803 Feb, Atrial fibrillation, unspecified type I48.91 [facility] [address], [place] [address]- 7671 Feb, [facility] [id number] [place] [address] 80482- 2903 Feb, [facility] [address] [place] [address] 23332- 2235 Feb, Other chronic pain G89.29 [facility] [id number] [place] [address] 30117- 2790 Jan, Other chronic pain G89.29 [facility] [address] [place] [address] 62623- 7631 Dec, [facility] [address] [place] [address] 34085- 9207 Dec, Lethargy R53.83 [facility] [address] [place] [address] 38640- 6176 17 Dec, 2016 [facility] [address], [place] [address]- 5461 10 Dec, 2016 Other chronic pain G89.29 [facility] [address], [place] [address]- 5091 Nov, [facility] [address], [place] [address]- 3571 Nov, [facility] [address] [place] [address] 60921- 6205 Nov, Other chronic pain G89.29 [facility] [address], [place] [address]- 0587 Nov, [facility] [id number], [place] [address]- 1175 Nov, [facility] [address], [place] [address]- 7721 Nov, [facility] [address], [place] [address]- 7652 Oct, Cough R05 [place] [address] [place] [address] 71977- 3643 Oct, Urinary tract infection, site not specified N39.0 [place] [address] [place] [address] 63146- 9601 Oct, Other chronic pain G89.29 [place] [address] [place] [address] 79969- 1658 Oct, 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, unspecified termite helper insulin use status E11.9 ; Other chronic [...] J30.89 ; Nausea R11.0 and Candidiasis B37.9 [place] [address], [place] [address]- 3943 Oct, [place] [address], [place] [address]- 8974 Oct, [place] [id number] [place] [address] 53037- 3298 Oct, [place] [address], [place] [address]- 6907 Oct, Chronic kidney disease (CKD), unspecified stage N18.9 [place] [id number], [place] [address]- 0828 Oct, [facility] [id number], [place] [address]- 5615 Sep, Other chronic pain G89.29 [facility] [address], [place] [address]- 1665 Sep, Chronic kidney disease (CKD), unspecified stage N18.9 and Senile cataract of right eye, unspecified age-related cataract type H25.9 [facility] [address], [place] [address]- 9561 Sep, [facility] [id number] [place] [address] 97207- 1553 Sep, [facility] [id number], [place] [address]- 4035 Sep, [facility] [id number], [place] [address]- 0870 Sep, [facility] [address], [place] [address]- 7140 Sep, [facility] [address], [place] [address]- 4899 Aug, [facility] [address], [place] [address]- 1407 Aug, [facility] [address], [place] [address]- 3661 Aug, [facility] [address], [place] [address]- 7707 Aug, Encounter to establish care Z76.89 ; Other chronic pain G89.29 ; Chronic kidney disease (CKD), unspecified stage N18.9 ; Obstructive sleep apnea syndrome G47.33 ; 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, unspecified senior living insulin use status E11.9 ; Urinary incontinence, unspecified type R32 ; Depression, unspecified depression type F32.9 ; History of femur fracture Z87.81 ; History of fractured kneecap Z87.81 ; Hypothyroidism , unspecified type E03.9 ; Cataract H26.9 and Gastroesophageal reflux disease without esophagitis K21.9 [place] [address], [place] [address]- 1330 Aug, [place] [address], [place] [address]- 9238 Aug, Urinary incontinence, unspecified type R32 [place] [address] [place] [address] 03288- 9842 Aug, [place] [address] [place] [address] 87476- 3896 Jul, [employer] [id number] Jul, 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, unspecified senior living insulin use status E11.9 ; Chronic kidney [...] Constipation, unspecified constipation type K59.00 [place] [address] [place] [address] 58835- 0645 Jul, [place] [address], [place] [address]- 2869 16 Jul, [address] [employer] [address] [id number] Jul, Anemia, unspecified type D64.9 ; Acute renal failure, unspecified acute renal failure type N17.9 ; Other chronic pain G89.29 ; Obstructive sleep apnea syndrome G47.33 and 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, unspecified termite helper insulin use status E11.9 [place] [address] [place] [address]- 7501 13 Jul, 2016 [facility] [address] [facility] [id number] [place] [address]- 6493 Jul, [facility] [address] [facility] [id number] [place] [address]- 7019 Jul, [facility] [address] [place] [address] 82985- 3269 Jul, [facility] [address] [place] [address]- 6359 07 Jul, 2016 [facility] [address] [place] [id number] Jun, Other chronic pain G89.29 ; Hayes catheter in place Z92.89 ; Chronic kidney disease (CKD), unspecified stage N18.9 and Blisters of multiple sites R23.8 [facility] [address], [place] [address]- 7010 Jun, [facility] [id number], [place] [address]- 4765 Jun, [facility] [address], [place] [address]- 4819 Jun, [facility] [address], [place] [address]- 8227 Jun, [facility] [address], [place] [address]- 3029 Jun, [facility] [address] [facility] [id number], [place] [address]- 2549 Jun, [facility] [address] [place] [address] Jun, [facility] [address] [facility] [id number], [place] [address] Jun, [facility] [id number], [place] [address] Jun, [facility] [address] [facility] [id number], [place] [address] Jun, [facility] [address] [facility] [id number], [place] [address] Jun, [facility] [address] [facility] [id number], [place] [address] May, [facility] [id number], [place] [address] May, [facility] [address] [facility] [id number], [place] [address] May, Other chronic pain G89.29 [facility] [address] [place] [id number] May, Encounter to establish care Z76.89 ; 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, unspecified termite helper insulin use status E11.9 ; Hypothyroidism, unspecified [...] SOCIAL HISTORY Never Assessed REASON FOR VISIT Yeast infection PLAN OF CARE VITAL SIGNS MEDICATIONS Medication Instructions Dosage Frequency Start Date End Date Duration Status Diflucan 150 MG 1 tablet now, and 1 tablet in three days if symptoms persist Jun, Active RESULTS No Results PROCEDURES No Known [...] Acute Kidney Injury 08/05/16 Hospitalization History UTI, Sepsis--[facility] Hospitalization History Chest pain/SOB/A-fib 02/2017 Hospitalization History Chest pain-[facility] 04/13/17 Hospitalization History UTI, respiratory failure, altered mental status-[facility] 09/13/17
--- OUTSIDE RECORDS SUMMARY | 2018-09-17 19:20 | XMS REPORT ---
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 Active 11962067 Problem Nephrolithiasis N20.0 Active 42468695 Problem Chronic kidney disease (CKD), unspecified stage N18.9 Active 543726987 Problem Urinary incontinence, unspecified type R32 Active 942440875 Problem Primary insomnia F51.01 Active 4927264 Problem Anxiety F41.9 Active 67449309 Problem Venous stasis dermatitis of both lower extremities I87.2 Active 75104044 Problem Stage 4 chronic kidney disease N18.4 Active 750449898 Problem Cataract H26.9 Active 915773924 Problem Obstructive sleep apnea syndrome G47.33 Active 82147971 Problem Depression, unspecified depression type F32.9 Active 77744839 Problem Hypothyroidism, unspecified type E03.9 Active 41077153 Problem Perennial allergic rhinitis, unspecified allergic rhinitis trigger J30.89 Active 525745091 Problem Restless leg syndrome G25.81 Active 90200076 Problem Closed fracture of left patella, unspecified fracture morphology, sequela S82.002S Active 03913655 Problem Gastroesophageal reflux disease without esophagitis K21.9 Active 191576407 Problem Atrial fibrillation, unspecified type I48.91 Active 30819160 Problem Morbid obesity due to excess calories E66.01 Active 729082710 Problem Other chronic pain G89.29 Active 79044198 Problem Ulcer L98.499 Active 035405084 ALLERGIES No Information ENCOUNTERS Encounter Location Date Diagnosis [facility] [address] [place] [id number] Jun, Intractable migraine without aura and with status migrainosus G43.011 and Left hip pain M25.552 [place] [address] [place] [address] 71504- 2805 Jun, Other chronic pain G89.29 ; Arthralgia, unspecified joint M25.50 and Primary insomnia F51.01 [place] [id number] [place] [address] 64916- 8421 Jun, [place] [address] [address]65- 7845 May, Other chronic pain G89.29 ; Arthralgia, unspecified joint M25.50 and Primary insomnia F51.01 [place] [id number] [place] [address] 67650- 7260 May, Urinary tract infection without hematuria, site unspecified N39.0 [place] [id number] [place] [address] 30569- 3364 May, Bladder spasms N32.89 [place] [id number] [place] [address] 75389- 6850 May, Primary insomnia F51.01 [place] [id number] [place] [address] 38889- 2365 May, [place] [id number] [place] [address] 16844- 1025 May, Primary insomnia F51.01 and Arthralgia, unspecified joint M25.50 [place] [id number] [place] [address] 34537- 9257 May, Other chronic pain G89.29 [facility] [address] [place] [id number] May, Nephrolithiasis N20.0 ; Cataract H26.9 and Macrocytic anemia D53.9 [place] [id number], [place] [address] May, [facility] [address], [place] [address] 92[address] Apr, [facility] [address], [place] [address] 9736 Apr, [place] [address] [place] [address] 25525- 4154 Apr, Primary insomnia F51.01 [facility] [id number], [place] [address] 9871 Apr, [place] [address], [place] [address] 3597 March, Other chronic pain G89.29 [facility] [address] [place] [id number] March, Arthralgia, unspecified joint M25.50 ; Abnormal urine sediment R82.90 ; Venous stasis dermatitis of both lower extremities I87.2 ; Stage 4 chronic kidney disease N18.4 and Cataract of right eye, unspecified cataract type H26.9 [place] [id number], [place] [address] 9431 March, Primary insomnia F51.01 [facility] [employer] [facility] [address] [place] [id number] March, Cervicalgia M54.2 ; Acute pain of right shoulder M25.511 and Pain of left femur M89.8X5 [facility] [address] [facility] [id number] [address] March, [place] [id number], [place] [address] 0962 March, Other chronic pain G89.29 [place] [id number], [place] [address] 2193 Feb, [facility] [address] [place] [id number] Feb, Leg swelling M79.89 [facility] [address] [place] [address] 55132- 9088 Feb, Primary insomnia F51.01 [facility] [address] [place] [id number] Feb, Fever in other diseases R50.81 and Intermittent left lower quadrant abdominal pain R10.32 [place] [id number] [place] [address] 64965- 1608 Feb, [place] [id number] [place] [address] 44714- 5727 Feb, [place] [id number] [place] [address] 75556- 6794 Feb, Depression, unspecified depression type F32.9 ; Hypothyroidism, unspecified type E03.9 ; 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, 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 and Anxiety F41.9 [place] [id number] [place] [address] 51345- 4697 Feb, Other chronic pain G89.29 [facility] [address] [id number] [place] [address] [id number] Jan, Other chronic pain G89.29 [place] [id number] [place] [address] 12302- 1359 Jan, Bladder spasms N32.89 [facility] [id number] [place] [address] 26363- 3266 Jan, Bladder spasms N32.89 [place] [id number] [place] [address] 13790- 5767 Dec, Bladder spasms N32.89 [place] [id number] [place] [address] 79726- 4181 Dec, Depression, unspecified depression type F32.9 [facility] [id number] [place] [address] 07301- 8138 Dec, Via [email or web address] [address] [place] [id number] Dec, Hypothyroidism, unspecified type E03.9 ; Depression, unspecified depression type F32.9 ; Other chronic pain G89.29 ; Urinary retention R33.9 and Atrial fibrillation, unspecified type I48.91 [facility] [id number] [id number] Dec, [facility] [id number] [place] [address] [id number] Dec, Other chronic pain G89.29 [facility] [id number] [place] [address] [id number] Nov, [facility] [id number] [place] [address] [id number] Nov, Other chronic pain G89.29 [facility] [address] [place] [address] 79585- 7316 Nov, Other chronic pain G89.29 [facility] [address] [place] [address] 75296- 8144 Nov, [facility] [id number] [place] [address] 29030- 4570 Nov, [facility] [address] [place] [address] 91377- 1685 Nov, Other chronic pain G89.29 [facility] [address] [place] [address] 71253- 6296 Nov, Other chronic pain G89.29 [facility] [address] [place] [address] 11093- 8876 Oct, [facility] [address] [place] [address] 72598 2546 Oct, Other chronic pain G89.29 [facility] [address] [id number] Oct, Weakness R53.1 ; Macrocytic anemia D53.9 ; Discolored skin L81.9 ; Other chronic pain G89.29 ; Dysuria R30.0 and Hayes catheter in place Z92.89 [facility] [address] [place] [address] 12982- 9831 Oct, Other chronic pain G89.29 [facility] [id number] [id number] Sep, [facility] [id number] [place] [address] 30094- 3010 Sep, [facility] [address] [place] [address] 96676- 9055 Sep, [facility] [id number] [place] [address] [id number] Sep, [facility] [id number] [place] [address] [id number] Sep, Other chronic pain G89.29 [facility] [id number] [place] [address] 84752- 9488 Sep, [facility] [id number] [place] [address] [id number] Sep, Other chronic pain G89.29 [facility] [address] [facility] [address] [address] [place] [id number] Sep, Chronic urinary tract infection N39.0 ; Other chronic pain G89.29 ; Chronic kidney disease (CKD), unspecified stage N18.9 ; 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, 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 ; Hypothyroidism, unspecified type E03.9 ; Depression, unspecified depression type F32.9 ; Cataract H26.9 ; Obstructive sleep apnea syndrome G47.33 ; Atrial fibrillation, unspecified type I48.91 ; History of femur fracture Z87.81 and [address] catheter in place Z92.89 [facility] [address], [place] [address] 5252 Sep, [facility] [address] [place] [address] 24825- 2441 Aug, [facility] [address], [place] [address]- 2045 Aug, Other chronic pain G89.29 [facility] [address], [place] [address] 3838 Aug, [facility] [place] [address], [place] [address] 9891 Aug, [facility] [place] [facility] [id number] [place] [address] [id number] Aug, [facility] [id number] [place] [address] 41794- 7216 Aug, [facility] [address] [place] [address] 76075- 7553 Aug, 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, unspecified long-term insulin use status E11.9 [facility] [address] [place] [address] 21660- 3944 Aug, Other chronic pain G89.29 [facility] [address], [place] [address]- 1106 18 Aug, 2017 [facility] [address] [place] [address] 81832- 0102 16 Aug, 2017 [facility] [address] [place] [address] 70411- 2114 22 Jul, 2017 Other chronic pain G89.29 [facility] [address], [place] [address]- 9816 19 Jul, 2017 [facility] [address], [place] [address]- 0092 19 Jul, 2017 Dark brown urine R82.99 [facility] [address], [place] [address]- 4352 19 Jul, 2017 Dark brown urine R82.99 [facility] [address] [place] [address] 97959- 2335 Jul, [place] [address] [place] [address] 49539- 4868 Jun, Other chronic pain G89.29 [place] [address] [id number] [place] [address] 77883- 2556 Jun, 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, unspecified long-term insulin use status E11.9 [place] [id number] [place] [address] 15943- 8988 May, Candidiasis, intertrigo B37.2 [place] [address] [id number] [place] [address] 95702- 3526 May, Other chronic pain G89.29 [place] [address] [id number] [place] [address] 65177- 1421 May, [place] [id number] [place] [address] 75336- 8120 May, [place] [address] [id number] [place] [address] 99449- 8893 May, Candidiasis, intertrigo B37.2 [place] [address] [id number] [place] [address] 29405- 4318 May, Atrial fibrillation, unspecified type I48.91 [place] [address] [id number] [place] [address] 15996- 7344 May, Hypothyroidism, unspecified type E03.9 and Decreased renal function N28.9 [place] [id number] [place] [address] 10509- 4370 May, 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, unspecified long-term insulin use status E11.9 [place] [id number] [place] [address] 35971- 4291 May, Dental examination Z01.20 [place] [address] [id number] [place] [address] 82955- 3853 May, Chronic kidney disease (CKD), unspecified stage N18.9 ; 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, unspecified long-term insulin use status E11.9 ; Hypothyroidism, unspecified type E03.9 ; Depression, unspecified depression type F32.9 ; Anemia, unspecified type D64.9 and Ulcer L98.499 [place] [address], [place] [address]- 4060 May, [facility] [id number] [place] [address] 99634- 6685 Apr, Other chronic pain G89.29 [place] [id number] [place] [address] 49349- 5353 Apr, Other chronic pain G89.29 [place] [id number] [place] [address] 07312- 4077 March, [place] [id number] [place] [address] 37432- 1319 March, [place] [id number] [place] [address] 79491- 4048 March, [facility] [id number] [place] [address] 20061- 2850 March, Other chronic pain G89.29 [place] [id number] [place] [address] 73967- 8981 March, [place] [address], [place] [address]- 1673 Feb, [facility] [id number] [place] [address] 35425- 2587 Feb, 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, unspecified long-term insulin use status E11.9 ; Candidiasis, intertrigo B37.2 ; Decubitus ulcer of left buttock, unstageable L89.320 and Pressure ulcer of contiguous region involving right buttock and hip, unspecified ulcer stage L89.40 [facility] [address], [place] [address]- 7356 Feb, Atrial fibrillation, unspecified type I48.91 [facility] [address] [facility] [id number], [place] [address]- 0335 Feb, [facility] [address] [place] [address] 69955- 0516 Feb, [facility] [address], [place] [address]- 0356 Feb, Other chronic pain G89.29 [facility] [address] [place] [address] 50784- 4735 Jan, Other chronic pain G89.29 [facility] [address] [place] [address] 47699- 8026 Dec, [facility] [address] [place] [address] 28663- 5826 Dec, Lethargy R53.83 [facility] [address] [place] [address] 93586- 2196 17 Dec, 2016 [facility] [address], [place] [address]- 1399 Dec, Other chronic pain G89.29 [facility] [address], [place] [address]- 7045 Nov, [facility] [address], [place] [address]- 3288 Nov, [facility] [address], [place] [address]- 8468 Nov, Other chronic pain G89.29 [facility] [address], [place] [address]- 9450 Nov, [facility] [address], [place] [address]- 9968 Nov, [facility] [address], [place] [address]- 9407 Nov, [facility] [id number] [place] [address] 62063- 8530 Oct, Cough R05 [facility] [id number] [place] [address] 17621- 8553 Oct, Urinary tract infection, site not specified N39.0 [facility] [id number] [place] [address] 61067- 4213 16 Oct, 2016 Other chronic pain G89.29 [place] [id number] [place] [address] 30834- 7955 Oct, 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, 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 ; Other chronic [...] J30.89 ; Nausea R11.0 and Candidiasis B37.9 [place] [id number] [place] [address] 29733- 8039 Oct, [place] [id number] [place] [address] 46347- 4978 Oct, [place] [id number] [place] [address] 55542- 2473 Oct, [place] [id number] [place] [address] 52833- 3045 Oct, Chronic kidney disease (CKD), unspecified stage N18.9 [place] [id number] [place] [address] 76765- 3085 Oct, [place] [id number] [place] [address] 86107- 3811 Sep, Other chronic pain G89.29 [place] [address], [place] [address]- 0396 Sep, Chronic kidney disease (CKD), unspecified stage N18.9 and Senile cataract of right eye, unspecified age-related cataract type H25.9 [facility] [address], [place] [address]- 3891 Sep, [facility] [id number], [place] [address]- 6186 Sep, [facility] [id number] [address]- 6301 Sep, [facility] [id number] [place] [address] 54612- 8928 Sep, [facility] [address], [place] [address]- 2693 Sep, [facility] [id number] [place] [address] 11715- 6253 Aug, [facility] [address], [place] [address]- 7834 Aug, [facility] [address], [place] [address]- 3810 Aug, [facility] [address], [place] [address]- 2503 Aug, Encounter to establish care Z76.89 ; Other chronic pain G89.29 ; Chronic kidney disease (CKD), unspecified stage N18.9 ; Obstructive sleep apnea syndrome G47.33 ; 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, 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 ; Urinary incontinence, unspecified type R32 ; Depression, unspecified depression type F32.9 ; History of femur fracture Z87.81 ; History of fractured kneecap Z87.81 ; Hypothyroidism , unspecified type E03.9 ; Cataract H26.9 and Gastroesophageal reflux disease without esophagitis K21.9 [facility] [address], [place] [address]- 8005 14 Aug, 2016 [place] [address], [place] [address]- 1153 Aug, Urinary incontinence, unspecified type R32 [place] [address] [place] [address] 61775- 1102 Aug, [place] [address] [place] [address] 19547- 9922 Jul, [address] [id number] Jul, 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, 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 ; Chronic kidney [...] E03.9 and Constipation, unspecified constipation type K59.00 [place] [address] [place] [address] 14709- 7432 19 Jul, 2016 [place] [address] [place] [address] 03525- 3469 16 Jul, [address] [id number] Jul, Anemia, unspecified type D64.9 ; Acute renal failure, unspecified acute renal failure type N17.9 ; Other chronic pain G89.29 ; Obstructive sleep apnea syndrome G47.33 and 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, 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 [id number] [place] [address]- 254 Jul, [facility] [address] [place] [id number] Jun, Other chronic pain G89.29 ; Hayes catheter in place Z92.89 ; Chronic kidney disease (CKD), unspecified stage N18.9 and Blisters of multiple sites R23.8 [facility] [address] [id number] [place] [address]- 7733 Jun, [facility] [address] [facility] [id number] [place] [address]- 9195 Jun, [facility] [id number] [place] [address]- 6588 Jun, [facility] [address] [id number] [place] [address]- 8607 Jun, [facility] [address] [facility] [id number] [place] [address]- 4363 Jun, [facility] [address] [facility] [id number] [place] [address]- 1283 Jun, [facility] [address] [facility] [id number] [place] [address]- 9279 Jun, [facility] [address] [facility] [id number] [place] [address] 2541 Jun, [facility] [address] [facility] [id number] [place] [address]- 2549 Jun, [facility] [address] [facility] [id number] [place] [address]- 2541 Jun, [facility] [address] [facility] [id number] [place] [address]- 9223 Jun, [facility] [address] [facility] [id number], [place] [address]- 0853 May, [facility] [address] [facility] [id number], [place] [address] May, [facility] [address] 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 ; Hypothyroidism, unspecified [...] SOCIAL HISTORY Never Assessed REASON FOR VISIT Start routine Macrobid PLAN OF CARE VITAL SIGNS MEDICATIONS Medication Instructions Dosage Frequency Start Date End Date Duration Status Macrobid 100 mg Orally Once a day 1 capsule with food 24h May, Sep, 30 days Active RESULTS No Results PROCEDURES [...] Acute Kidney Injury 08/05/16 Hospitalization History UTI, Sepsis--[facility] Hospitalization History Chest pain/SOB/A-fib 02/2017 Hospitalization History Chest pain-[facility] 04/13/17 Hospitalization History UTI, respiratory failure, altered mental status-[facility] 09/13/17
--- OUTSIDE RECORDS SUMMARY | 2018-09-17 19:20 | XMS REPORT ---
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 Active 88646532 Problem Nephrolithiasis N20.0 Active 93645403 Problem Chronic kidney disease (CKD), unspecified stage N18.9 Active 822360181 Problem Urinary incontinence, unspecified type R32 Active 486526357 Problem Primary insomnia F51.01 Active 6515731 Problem Anxiety F41.9 Active 84185119 Problem Venous stasis dermatitis of both lower extremities I87.2 Active 19464577 Problem Stage 4 chronic kidney disease N18.4 Active 887261053 Problem Cataract H26.9 Active 214133417 Problem Obstructive sleep apnea syndrome G47.33 Active 03663409 Problem Depression, unspecified depression type F32.9 Active 32296140 Problem Hypothyroidism, unspecified type E03.9 Active 41296971 Problem Perennial allergic rhinitis, unspecified allergic rhinitis trigger J30.89 Active 218996011 Problem Restless leg syndrome G25.81 Active 49469285 Problem Closed fracture of left patella, unspecified fracture morphology, sequela S82.002S Active 90475681 Problem Gastroesophageal reflux disease without esophagitis K21.9 Active 517673701 Problem Atrial fibrillation, unspecified type I48.91 Active 53015264 Problem Morbid obesity due to excess calories E66.01 Active 714052992 Problem Other chronic pain G89.29 Active 62962103 Problem Ulcer L98.499 Active 332407794 ALLERGIES No Information ENCOUNTERS Encounter Location Date Diagnosis [facility] [address] [place] [id number] Jun, Intractable migraine without aura and with status migrainosus G43.011 and Left hip pain M25.552 [place] [id number] [place] [address] 70872- 7062 Jun, Other chronic pain G89.29 ; Arthralgia, unspecified joint M25.50 and Primary insomnia F51.01 [place] [address] [place] [id number] [place] [address] 39954- 9935 Jun, [place] [address] [address] May, Other chronic pain G89.29 ; Arthralgia, unspecified joint M25.50 and Primary insomnia F51.01 [place] [address] [place] [id number] [place] [address] 87539- 1722 May, Urinary tract infection without hematuria, site unspecified N39.0 [place] [address] [place] [id number] [place] [address] 46377- 0229 May, Bladder spasms N32.89 [place] [address] [place] [id number] [place] [address] 09593- 3603 May, Primary insomnia F51.01 [place] [address] [place] [id number] [place] [address] 55641- 7283 May, [place] [address] [place] [id number] [place] [address] 80207- 5462 May, Primary insomnia F51.01 and Arthralgia, unspecified joint M25.50 [place] [address] [place] [id number] [place] [address] 87362- 3710 May, Other chronic pain G89.29 [facility] [address] [place] [id number] May, Nephrolithiasis N20.0 ; Cataract H26.9 and Macrocytic anemia D53.9 [place] [address] [place] [id number] [address] May, [facility] [place] [address] [address] 8[address] Apr, [facility] [place] [address] [address] 3143 Apr, [place] [address] [place] [address] 13121- 7478 Apr, Primary insomnia F51.01 [facility] [place] [address] [place] [address] [id number] [address] 58[address] Apr, [place] [address] [address] 6999 March, Other chronic pain G89.29 [facility] [address] [place] [id number] March, Arthralgia, unspecified joint M25.50 ; Abnormal urine sediment R82.90 ; Venous stasis dermatitis of both lower extremities I87.2 ; Stage 4 chronic kidney disease N18.4 and Cataract of right eye, unspecified cataract type H26.9 [place] [address] [place] [id number] [address] 4[address] March, Primary insomnia F51.01 [facility] [employer] [address] [place] [id number] March, Cervicalgia M54.2 ; Acute pain of right shoulder M25.511 and Pain of left femur M89.8X5 [facility] [place] [address] [facility] [id number] [address] March, [place] [address] [place] [id number] [address] 8230 March, Other chronic pain G89.29 [place] [address] [place] [id number] [address] 7536 Feb, [facility] [address] [place] [id number] Feb, Leg swelling M79.89 [facility] [place] [address] [place] [address] 76018- 7030 Feb, Primary insomnia F51.01 Via [employer] [facility] [address] [place] [id number] Feb, Fever in other diseases R50.81 and Intermittent left lower quadrant abdominal pain R10.32 [place] [address] [place] [id number] [place] [address] 69850- 6559 Feb, [place] [address] [place] [id number] [place] [address] 18107- 1571 Feb, [place] [address] [place] [id number] [place] [address] 07091- 7847 Feb, Depression, unspecified depression type F32.9 ; Hypothyroidism, unspecified type E03.9 ; 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, 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 [address] [place] [id number] [place] [address] [id number] Jan, Other chronic pain G89.29 [place] [address] [place] [id number] [place] [address] 71289- 1898 Jan, Bladder spasms N32.89 [facility] [place] [address] [place] [id number] [place] [address] 20984- 8868 Jan, Bladder spasms N32.89 [place] [address] [place] [id number] [place] [address] 37127- 4718 Dec, Bladder spasms N32.89 [place] [address] [place] [id number] [place] [address] 33133- 6895 Dec, Depression, unspecified depression type F32.9 [facility] [place] [address] [place] [id number] [place] [address] 05407- 8659 Dec, [email or web address] [address] [place] [id number] Dec, Hypothyroidism, unspecified type E03.9 ; Depression, unspecified depression type F32.9 ; Other chronic pain G89.29 ; Urinary retention R33.9 and Atrial fibrillation, unspecified type I48.91 [facility] [id number] [id number] Dec, [facility] [address] [place] [address] [id number] [place] [address] [id number] Dec, Other chronic pain G89.29 [facility] [address] [id number] [place] [address] [id number] Nov, [facility] [address] [id number] [place] [address] [id number] Nov, Other chronic pain G89.29 [facility] [place] [address] [place] [address] 41216- 0476 Nov, Other chronic pain G89.29 [facility] [place] [address] [place] [address] 67110- 1874 Nov, [facility] [place] [address] [place] [id number] [place] [address] 17808- 5490 Nov, [facility] [place] [address] [place] [address] 57349- 5379 Nov, Other chronic pain G89.29 [facility] [place] [address] [place] [address] 67731- 8896 Nov, Other chronic pain G89.29 [facility] [place] [address] [place] [address] 16855- 4496 Oct, [facility] [place] [address] [place] [address] 61477 2546 Oct, Other chronic pain G89.29 [facility] [address] [place] [id number] Oct, Weakness R53.1 ; Macrocytic anemia D53.9 ; Discolored skin L81.9 ; Other chronic pain G89.29 ; Dysuria R30.0 and Hayes catheter in place Z92.89 [facility] [place] [address] [place] [address] 64292- 2710 Oct, Other chronic pain G89.29 [facility] [id number] [id number] Sep, [facility] [place] [address] [place] [id number] [place] [address] 18490- 4736 Sep, [facility] [place] [address] [place] [address] 99160- 9099 Sep, [facility] [address] [id number] [place] [address] [id number] Sep, [facility] [address] [place] [id number] [place] [address] [id number] Sep, Other chronic pain G89.29 [facility] [place] [address] [place] [id number] [place] [address] 24308- 4959 Sep, 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 ; Hypothyroidism, unspecified type E03.9 ; Depression, unspecified depression type F32.9 ; Cataract H26.9 ; Obstructive sleep apnea syndrome G47.33 ; Atrial fibrillation, unspecified type I48.91 ; History of femur fracture Z87.81 and [address] catheter in place Z92.89 [facility] [place] [address] [address]- 7424 Sep, [facility] [place] [id number] [place] [address] 51037- 1471 Aug, [facility] [place] [address], [place] [address]- 5247 Aug, Other chronic pain G89.29 [facility] [place] [address] [address]- 2358 Aug, [facility] [address], [place] [address]- 1260 Aug, [facility] [place] [facility] [address] [place] [id number] [place] [address] [id number] Aug, [facility] [place] [id number] [place] [address] 11094- 8112 Aug, [facility] [place] [id number] [place] [address] 02541- 1303 Aug, 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, unspecified care home insulin use status E11.9 [facility] [place] [address] [place] [address] 99070- 3572 Aug, Other chronic pain G89.29 [facility] [place] [address] [address]- 5813 18 Aug, 2017 [facility] [place] [address] [place] [address] 10181- 4498 16 Aug, 2017 [facility] [place] [address] [place] [address] 09535- 7099 22 Jul, 2017 Other chronic pain G89.29 [facility] [place] [address], [place] [address]- 1880 19 Jul, 2017 [facility] [place] [address], [place] [address]- 6075 19 Jul, 2017 Dark brown urine R82.99 [facility] [place] [address], [place] [address]- 0894 19 Jul, 2017 Dark brown urine R82.99 [facility] [place] [id number] [place] [address] 51417- 3913 Jul, [place] [id number] [place] [address] 31505- 8826 Jun, Other chronic pain G89.29 [place] [address] [place] [id number] [place] [address] 53325- 4908 Jun, 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, unspecified care home insulin use status E11.9 [place] [address] [place] [id number] [place] [address] 59609- 4347 May, Candidiasis, intertrigo B37.2 [place] [address] [place] [id number] [place] [address] 32435- 9550 May, Other chronic pain G89.29 [place] [address] [place] [id number] [place] [address] 52792- 4059 May, [place] [address] [place] [id number] [place] [address] 69210- 4168 May, [place] [address] [place] [id number] [place] [address] 92594- 5434 May, Candidiasis, intertrigo B37.2 [place] [address] [place] [id number] [place] [address] 24047- 8000 May, Atrial fibrillation, unspecified type I48.91 [place] [address] [place] [id number] [place] [address] 85692- 7028 May, Hypothyroidism, unspecified type E03.9 and Decreased renal function N28.9 [place] [address] [place] [id number] [place] [address] 20969- 1796 May, 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, unspecified care home insulin use status E11.9 [place] [address] [place] [id number] [place] [address] 48430- 0022 May, Dental examination Z01.20 [place] [address] [place] [id number] [place] [address] 59592- 6475 May, Chronic kidney disease (CKD), unspecified stage N18.9 ; 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, unspecified care home insulin use status E11.9 ; Hypothyroidism, unspecified type E03.9 ; Depression, unspecified depression type F32.9 ; Anemia, unspecified type D64.9 and Ulcer L98.499 [place] [address], [place] [address]- 0409 May, [facility] [place] [address] [place] [id number] [place] [address] 75609- 5592 Apr, Other chronic pain G89.29 [place] [address] [place] [id number] [place] [address] 93671- 2713 Apr, Other chronic pain G89.29 [place] [address] [place] [id number] [place] [address] 67968- 5417 March, [place] [address] [place] [id number] [place] [address] 98614- 0006 March, [place] [address] [place] [id number] [place] [address] 67697- 7227 March, [facility] [place] [address] [place] [id number] [place] [address] 52211- 8821 March, Other chronic pain G89.29 [place] [address] [place] [id number] [place] [address] 73770- 2372 March, [place] [address] [address]- 8344 Feb, [facility] [place] [address] [place] [id number] [place] [address] 82071- 7910 Feb, 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, unspecified care home insulin use status E11.9 ; Candidiasis, intertrigo B37.2 ; Decubitus ulcer of left buttock, unstageable L89.320 and Pressure ulcer of contiguous region involving right buttock and hip, unspecified ulcer stage L89.40 [facility] [place] [address] [address]- 8192 Feb, Atrial fibrillation, unspecified type I48.91 [facility] [place] [address] [facility] [id number] [address]- 6421 Feb, [facility] [place] [address] [place] [address] 41641- 4086 Feb, [facility] [place] [address], [place] [address]- 0456 Feb, Other chronic pain G89.29 [facility] [place] [address] [place] [address] 46237- 5128 Jan, Other chronic pain G89.29 [facility] [place] [address] [place] [address] 91366- 9816 Dec, [facility] [place] [id number] [place] [address] 88348- 1239 Dec, Lethargy R53.83 [facility] [place] [address] [place] [address] 03872- 1420 17 Dec, 2016 [facility] [place] [address], [place] [address]- 5692 Dec, Other chronic pain G89.29 [facility] [place] [address], [place] [address]- 7566 Nov, [facility] [place] [address] [address]- 5412 Nov, [facility] [place] [address], [place] [address]- 6299 Nov, Other chronic pain G89.29 [facility] [place] [address], [place] [address]- 4875 Nov, [facility] [place] [address], [place] [address]- 0887 Nov, [facility] [place] [address], [place] [address]- 5010 Nov, [facility] [place] [address] [place] [id number] [place] [address] 57929- 0771 Oct, Cough R05 [facility] [place] [address] [place] [id number] [place] [address] 05787- 3007 Oct, Urinary tract infection, site not specified N39.0 [facility] [place] [address] [place] [id number] [place] [address] 44472- 1726 16 Oct, 2016 Other chronic pain G89.29 [place] [address] [place] [id number] [place] [address] 86015- 4377 Oct, 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, 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 ; Other chronic [...] J30.89 ; Nausea R11.0 and Candidiasis B37.9 [place] [address] [place] [id number] [place] [address] 90816- 4474 Oct, [place] [address] [place] [id number] [place] [address] 31707- 6846 Oct, [place] [address] [place] [id number] [place] [address] 99998- 0524 Oct, [place] [address] [place] [id number] [place] [address] 82371- 4750 Oct, Chronic kidney disease (CKD), unspecified stage N18.9 [place] [address] [place] [id number] [place] [address] 27407- 9006 Oct, [place] [address] [place] [id number] [place] [address] 52982- 2034 Sep, Other chronic pain G89.29 [place] [address], [place] [address]- 1570 Sep, Chronic kidney disease (CKD), unspecified stage N18.9 and Senile cataract of right eye, unspecified age-related cataract type H25.9 [facility] [place] [address], [place] [address]- 7489 Sep, [facility] [place] [id number] [address]- 5300 Sep, [facility] [place] [id number], [place] [address]- 8998 Sep, [facility] [place] [address] [place] [id number] [place] [address] 78514- 4311 Sep, [facility] [place] [address] [address]- 1101 Sep, [facility] [place] [address] [place] [id number] [place] [address] 79378- 5681 Aug, [facility] [place] [address], [place] [address]- 6723 Aug, [facility] [place] [address] [address] Aug, [facility] [place], [facility] [address], [place] [address] Aug, Encounter to establish care Z76.89 ; Other chronic pain G89.29 ; Chronic kidney disease (CKD), unspecified stage N18.9 ; Obstructive sleep apnea syndrome G47.33 ; 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, 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 ; Urinary incontinence, unspecified type R32 ; Depression, unspecified depression type F32.9 ; History of femur fracture Z87.81 ; History of fractured kneecap Z87.81 ; Hypothyroidism , unspecified type E03.9 ; Cataract H26.9 and Gastroesophageal reflux disease without esophagitis K21.9 [facility] [place], [facility] [address] [address] Aug, 2016 [id number] [address] Aug, Urinary incontinence, unspecified type R32 [place] [id number] [place] [address] Aug, [place] [id number] [place] [address] Jul, [address] [id number] Jul, 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, 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 ; Chronic kidney [...] E03.9 and Constipation, unspecified constipation type K59.00 [place] [id number] [place] [address] 19 Jul, 2016 [place] [id number] [place] [address] 16 Jul, [address] [id number] Jul, Anemia, unspecified type D64.9 ; Acute renal failure, unspecified acute renal failure type N17.9 ; Other chronic pain G89.29 ; Obstructive sleep apnea syndrome G47.33 and 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, 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 [place] [id number] [place] [phone] 13 Jul, 2016 [place] [id number] [place] [phone] Jul, [place] [address] [address] [place] [id number] [place] [address] Jul, [facility] [place] [address] [id number] [place] [address] Jul, [facility] [address] [facility] [id number] [place] [address] Jul, [facility] [address] [place] [id number] Jun, Other chronic pain G89.29 ; Hayes catheter in place Z92.89 ; Chronic kidney disease (CKD), unspecified stage N18.9 and Blisters of multiple sites R23.8 [facility] [place] [address] [id number] [place] [address] Jun, [facility] [place] [address] [facility] [id number] [place] [address] Jun, [facility] INCLUDE 234 BEDS AT THE [facility] [address] [place] [id number] [place] [address] Jun, [facility] [address] [id number] [place] [address] Jun, [facility] [address] [facility] [id number] [place] [address] Jun, [facility] [place] [address] [facility] [id number] [place] [address] Jun, [facility] INCLUDE 234 BEDS AT [facility] [address] [facility] [id number] [place] [address] Jun, [facility] [address] [facility] [id number] [place] [address] Jun, [facility] [address] [facility] [id number] [place] [address] Jun, [facility] [address] [facility] [id number] [place] [address] Jun, [facility] INCLUDE 234 BEDS AT [facility] [address] [facility] [id number] [place] [address] Jun, [facility] [place] [address] [facility] [id number] [address] May, [facility] [place] [address] [facility] [id number], [place] [address] May, [facility] [place] [address] [facility] [id number][place] [address] May, Other chronic pain G89.29 [facility] [place] [address] [place] [id number] May, Encounter to establish care Z76.89 ; 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, 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 ; Hypothyroidism, unspecified [...] SOCIAL HISTORY Never Assessed REASON FOR VISIT Rx for bladder spasms PLAN OF CARE VITAL SIGNS MEDICATIONS Medication Instructions Dosage Frequency Start Date End Date Duration Status Pyridium 200 mg Orally Three times a day as needed 1 tablet May, Active RESULTS No Results PROCEDURES No Known [...] Acute Kidney Injury 08/05/16 Hospitalization History UTI, Sepsis--[facility] Hospitalization History Chest pain/SOB/A-fib 02/2017 Hospitalization History Chest pain-[facility] 04/13/17 Hospitalization History UTI, respiratory failure, altered mental status-[facility] 09/13/17
--- OUTSIDE RECORDS SUMMARY | 2018-09-17 19:21 | XMS REPORT ---
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 Active 26030126 Problem Nephrolithiasis N20.0 Active 31833342 Problem Chronic kidney disease (CKD), unspecified stage N18.9 Active 601717605 Problem Urinary incontinence, unspecified type R32 Active 188603972 Problem Primary insomnia F51.01 Active 4478025 Problem Anxiety F41.9 Active 10251972 Problem Venous stasis dermatitis of both lower extremities I87.2 Active 83586776 Problem Stage 4 chronic kidney disease N18.4 Active 919797482 Problem Cataract H26.9 Active 461238453 Problem Obstructive sleep apnea syndrome G47.33 Active 70196306 Problem Depression, unspecified depression type F32.9 Active 75072591 Problem Hypothyroidism, unspecified type E03.9 Active 27490161 Problem Perennial allergic rhinitis, unspecified allergic rhinitis trigger J30.89 Active 457883746 Problem Restless leg syndrome G25.81 Active 89151694 Problem Closed fracture of left patella, unspecified fracture morphology, sequela S82.002S Active 61104468 Problem Gastroesophageal reflux disease without esophagitis K21.9 Active 370590194 Problem Atrial fibrillation, unspecified type I48.91 Active 26138886 Problem Morbid obesity due to excess calories E66.01 Active 991950366 Problem Other chronic pain G89.29 Active 63833667 Problem Ulcer L98.499 Active 149611123 ALLERGIES No Information ENCOUNTERS Encounter Location Date Diagnosis [facility] [address] [place] [id number] Jun, Intractable migraine without aura and with status migrainosus G43.011 and Left hip pain M25.552 [place] [address] [place] [address] 23454- 9563 Jun, Other chronic pain G89.29 ; Arthralgia, unspecified joint M25.50 and Primary insomnia F51.01 [place] [address] [place] [id number] [place] [address] 73809- 9853 Jun, [place] [address] [address]23- 6608 May, Other chronic pain G89.29 ; Arthralgia, unspecified joint M25.50 and Primary insomnia F51.01 [place] [address] [place] [id number] [place] [address] 71666- 2576 May, Urinary tract infection without hematuria, site unspecified N39.0 [place] [address] [place] [id number] [place] [address] 06604- 2724 May, Bladder spasms N32.89 [place] [address] [place] [id number] [place] [address] 22974- 5304 May, Primary insomnia F51.01 [place] [address] [place] [id number] [place] [address] 57824- 8209 May, [place] [address] [place] [id number] [place] [address] 39361- 8591 May, Primary insomnia F51.01 and Arthralgia, unspecified joint M25.50 [place] [address] [place] [id number] [place] [address] 43865- 2280 May, Other chronic pain G89.29 [facility] [address] [place] [id number] May, Nephrolithiasis N20.0 ; Cataract H26.9 and Macrocytic anemia D53.9 [place] [address] [place] [id number] [address] May, [facility] [address] [address] 7398 Apr, [facility] [address] [address] 4188 Apr, [place] [address] [place] [address] 77837- 8607 Apr, Primary insomnia F51.01 [facility] [address] [place] [id number] [address] Apr, [place] [address] [address] 7761 March, Other chronic pain G89.29 [address] [facility] [address] [place] [id number] March, Arthralgia, unspecified joint M25.50 ; Abnormal urine sediment R82.90 ; Venous stasis dermatitis of both lower extremities I87.2 ; Stage 4 chronic kidney disease N18.4 and Cataract of right eye, unspecified cataract type H26.9 [place] [address] [place] [id number] [address] 49[address] March, Primary insomnia F51.01 [facility] [employer] [address] [place] [id number] March, Cervicalgia M54.2 ; Acute pain of right shoulder M25.511 and Pain of left femur M89.8X5 [facility] [address] [facility] [id number] [address] March, [place] [address] [place] [id number] [address] 3510 March, Other chronic pain G89.29 [place] [address] [place] [id number] [address] 1836 Feb, [address] [facility] [employer] [address] [place] [id number] Feb, Leg swelling M79.89 [facility] [address] [place] [address] 34341- 7922 Feb, Primary insomnia F51.01 [facility] [employer] [address] [place] [id number] Feb, Fever in other diseases R50.81 and Intermittent left lower quadrant abdominal pain R10.32 [place] [address] [place] [id number] [place] [address] 57290- 6505 Feb, [place] [address] [place] [id number] [place] [address] 77068- 8383 Feb, [place] [address] [place] [id number] [place] [address] 89718- 6142 Feb, Depression, unspecified depression type F32.9 ; Hypothyroidism, unspecified type E03.9 ; 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, 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 and Anxiety F41.9 [place] [address] [place] [id number] [place] [address] 83345- 6626 Feb, Other chronic pain G89.29 [facility] [address] [place] [id number] [place] [address] [id number] Jan, Other chronic pain G89.29 [place] [address] [place] [id number] [place] [address] 56774- 3825 Jan, Bladder spasms N32.89 [facility] [address] [place] [id number] [place] [address] 75885- 5214 Jan, Bladder spasms N32.89 [place] [address] [place] [id number] [place] [address] 00922- 7996 Dec, Bladder spasms N32.89 [place] [address] [place] [id number] [place] [address] 22407- 9566 Dec, Depression, unspecified depression type F32.9 [facility] [address] [place] [id number] [place] [address] 97141- 6332 Dec, [facility] [employer] [address] [place] [id number] Dec, Hypothyroidism, unspecified type E03.9 ; Depression, unspecified depression type F32.9 ; Other chronic pain G89.29 ; Urinary retention R33.9 and Atrial fibrillation, unspecified type I48.91 [facility] [id number] [id number] Dec, [facility] [address] [place] [id number] [place] [address] [id number] Dec, Other chronic pain G89.29 [facility] [address] [place] [id number] [place] [address] [id number] Nov, [facility] [address] [place] [id number] [place] [address] [id number] Nov, Other chronic pain G89.29 [facility] [address] [place] [address] 49499- 7436 Nov, Other chronic pain G89.29 [facility] [address] [place] [address] 69782- 3896 Nov, [facility] [address] [place] [address] [id number] [place] [address] 95588- 2527 Nov, [facility] [address] [place] [address] 45375- 3511 Nov, Other chronic pain G89.29 [facility] [address] [place] [address] 49263- 1966 Nov, Other chronic pain G89.29 [facility] [address] [place] [address] 66927- 2054 Oct, [facility] [address] [place] [address] 19583 2546 Oct, Other chronic pain G89.29 [facility] [employer] [address] [place] [id number] Oct, Weakness R53.1 ; Macrocytic anemia D53.9 ; Discolored skin L81.9 ; Other chronic pain G89.29 ; Dysuria R30.0 and Hayes catheter in place Z92.89 [facility] [address] [place] [address] 75518- 5796 Oct, Other chronic pain G89.29 [facility] [id number] [id number] Sep, [facility] [address] [place] [id number] [place] [address] 50002- 3130 Sep, [facility] [address] [place] [address] 43689- 5349 Sep, [facility] [address] [place] [id number] [place] [address] [id number] Sep, [facility] [address] [place] [id number] [place] [address] [id number] Sep, Other chronic pain G89.29 [facility] [address] [place] [id number] [place] [address] 82162- 0462 Sep, [facility] [address] [place] [id number] [place] [address] [id number] Sep, Other chronic pain G89.29 [facility] [address] [place] [id number] Sep, Chronic urinary tract infection N39.0 ; Other chronic pain G89.29 ; Chronic kidney disease (CKD), unspecified stage N18.9 ; 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, 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 ; Hypothyroidism, unspecified type E03.9 ; Depression, unspecified depression type F32.9 ; Cataract H26.9 ; Obstructive sleep apnea syndrome G47.33 ; Atrial fibrillation, unspecified type I48.91 ; History of femur fracture Z87.81 and [address] catheter in place Z92.89 [facility] [address] [address]- 5571 Sep, [facility] [address] [place] [address] 00348- 4395 Aug, [facility] [address], [place] [address]- 6085 Aug, Other chronic pain G89.29 [facility] [address], [place] [address]- 7482 Aug, [facility] [address], [place] [address]- 9799 Aug, [facility] [place] [facility] [address] [place] [address] [id number] [place] [address] [id number] Aug, [facility] [address] [place] [address] 60150- 6364 Aug, [facility] [address] [place] [address] 06997- 3720 Aug, 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, unspecified intermediate insulin use status E11.9 [facility] [address] [place] [address] 57503- 7579 Aug, Other chronic pain G89.29 [facility] [address] [address]- 0164 18 Aug, 2017 [facility] [address] [place] [address] 65782- 1855 16 Aug, 2017 [facility] [address] [place] [address] 32712- 4020 22 Jul, 2017 Other chronic pain G89.29 [facility] [address], [place] [address]- 3922 19 Jul, 2017 [facility] [address] [address]- 3005 19 Jul, 2017 Dark brown urine R82.99 [facility] [address], [place] [address]- 4679 19 Jul, 2017 Dark brown urine R82.99 [facility] [address] [place] [address] 58241- 7906 Jul, [place] [address] [place] [address] 65706- 1388 Jun, Other chronic pain G89.29 [place] [address] [place] [id number] [place] [address] 34939- 5530 Jun, 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, unspecified intermediate insulin use status E11.9 [place] [address] [place] [id number] [place] [address] 73263- 6959 May, Candidiasis, intertrigo B37.2 [place] [address] [place] [id number] [place] [address] 68001- 3606 May, Other chronic pain G89.29 [place] [address] [place] [id number] [place] [address] 57145- 6966 May, [place] [address] [place] [id number] [place] [address] 39161- 6386 May, [place] [address] [place] [id number] [place] [address] 11892- 0044 May, Candidiasis, intertrigo B37.2 [place] [address] [place] [id number] [place] [address] 22896- 0498 May, Atrial fibrillation, unspecified type I48.91 [place] [address] [place] [id number] [place] [address] 52575- 3123 May, Hypothyroidism, unspecified type E03.9 and Decreased renal function N28.9 [place] [address] [place] [id number] [place] [address] 75892- 6145 May, 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, unspecified intermediate insulin use status E11.9 [place] [address] [place] [id number] [place] [address] 20558- 1830 May, Dental examination Z01.20 [place] [address] [place] [id number] [place] [address] 94267- 9394 May, Chronic kidney disease (CKD), unspecified stage N18.9 ; 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, unspecified intermediate insulin use status E11.9 ; Hypothyroidism, unspecified type E03.9 ; Depression, unspecified depression type F32.9 ; Anemia, unspecified type D64.9 and Ulcer L98.499 [place] [address] [address]- 0101 May, [facility] [address] [place] [id number] [place] [address] 35399- 5104 Apr, Other chronic pain G89.29 [place] [address] [place] [id number] [place] [address] 03919- 9259 Apr, Other chronic pain G89.29 [place] [address] [place] [id number] [place] [address] 50340- 1214 March, [place] [address] [place] [id number] [place] [address] 62161- 0716 March, [place] [address] [place] [id number] [place] [address] 66968- 7581 March, [facility] [address] [place] [id number] [place] [address] 82933- 3257 March, Other chronic pain G89.29 [place] [address] [place] [id number] [place] [address] 45185- 2549 March, [place] [address] [address]- 8275 Feb, [facility] [address] [place] [id number] [place] [address] 66730- 5950 Feb, 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, unspecified intermediate insulin use status E11.9 ; Candidiasis, intertrigo B37.2 ; Decubitus ulcer of left buttock, unstageable L89.320 and Pressure ulcer of contiguous region involving right buttock and hip, unspecified ulcer stage L89.40 [facility] [address] [address]- 4383 Feb, Atrial fibrillation, unspecified type I48.91 [facility] [address] [facility] [id number] [address]- 2448 Feb, [facility] [address] [place] [address] 26640- 0556 Feb, [facility] [address] [address]- 5666 Feb, Other chronic pain G89.29 [facility] [address] [place] [address] 56925- 7149 Jan, Other chronic pain G89.29 [facility] [address] [place] [address] 38061- 6926 Dec, [facility] [address] [place] [address] 20757- 4489 Dec, Lethargy R53.83 [facility] [address] [place] [address] 75376- 8924 17 Dec, 2016 [facility] [address] [address]- 0790 Dec, Other chronic pain G89.29 [facility] [address], [place] [address]- 0696 Nov, [facility] [address], [place] [address]- 4505 Nov, [facility] [address] [address]- 0686 Nov, Other chronic pain G89.29 [facility] [address] [address]- 0885 Nov, [facility] [address], [place] [address]- 2129 Nov, [facility] [address] [address]- 5786 Nov, [facility] [address] [place] [id number] [place] [address] 46913- 2510 Oct, Cough R05 [facility] [address] [place] [id number] [place] [address] 17641- 1846 Oct, Urinary tract infection, site not specified N39.0 [facility] [address] [place] [id number] [place] [address] 94413- 6128 16 Oct, 2016 Other chronic pain G89.29 [place] [address] [place] [id number] [place] [address] 76733- 0513 Oct, 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, 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 ; Other [...] J30.89 ; Nausea R11.0 and Candidiasis B37.9 [place] [address] [place] [id number] [place] [address] 95701- 3802 Oct, [place] [address] [place] [id number] [place] [address] 63716- 5276 Oct, [place] [address] [place] [id number] [place] [address] 36237- 8850 Oct, [place] [address] [place] [id number] [place] [address] 18133- 9426 Oct, Chronic kidney disease (CKD), unspecified stage N18.9 [place] [address] [place] [id number] [place] [address] 21039- 2802 Oct, [place] [address] [place] [id number] [place] [address] 85398- 4892 Sep, Other chronic pain G89.29 [place] [address], [place] [address]- 9875 Sep, Chronic kidney disease (CKD), unspecified stage N18.9 and Senile cataract of right eye, unspecified age-related cataract type H25.9 [facility] [address], [place] [address]- 8318 Sep, [facility] [id number] [address]- 3651 Sep, [facility] [id number] [address]- 3295 Sep, [facility] [address] [id number] [place] [address] 62791- 9233 Sep, [facility] [address] [address]- 0689 Sep, [facility] [address] [id number] [place] [address] 68610- 2544 Aug, [facility] [address], [place] [address]- 7545 Aug, [facility] [address] [address]- 2458 Aug, [facility] [address], [place] [address]- 1682 Aug, Encounter to establish care Z76.89 ; Other chronic pain G89.29 ; Chronic kidney disease (CKD), unspecified stage N18.9 ; Obstructive sleep apnea syndrome G47.33 ; 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, 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 ; Urinary incontinence, unspecified type R32 ; Depression, unspecified depression type F32.9 ; History of femur fracture Z87.81 ; History of fractured kneecap Z87.81 ; Hypothyroidism , unspecified type E03.9 ; Cataract H26.9 and Gastroesophageal reflux disease without esophagitis K21.9 [facility] [address] [address]- 1333 14 Aug, 2016 [place] [address], [place] [address]- 5826 Aug, Urinary incontinence, unspecified type R32 [place] [address] [place] [address] 32469- 9938 Aug, [place] [address] [place] [address] 60224- 3485 Jul, [address] [id number] Jul, 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, 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 [place] [id number] [place] [address]- [address] 13 Jul, 2016 [place] [id number] [place] [address] Jul, [place] [address] [place] [id number] [address] Jul, [facility] [address] [id number] [place] [address] Jul, [facility] [address] [facility] [id number] [place] [address] Jul, [facility] [facility] [address] [place], [place] [id number] Jun, Other chronic pain G89.29 ; Hayes catheter in place Z92.89 ; Chronic kidney disease (CKD), unspecified stage N18.9 and Blisters of multiple sites R23.8 [facility] [address] [id number] [place] [address] Jun, [facility] [address] [facility] [id number] [place] [address] Jun, [facility] [address] [id number] [address] Jun, [facility] [address] [id number] [place] [address] Jun, [facility] [address] [facility] [id number] [place] [address] Jun, [facility] [address] [facility] [id number] [place] [address] Jun, [facility] [address] [facility] [id number] [place] [address] Jun, [facility] [address] [facility] [id number] [place] [address] Jun, [facility] [address] [facility] [id number] [place] [address] Jun, [facility] [address] [facility] [id number] [place] [address] Jun, [facility] [address] [facility] [id number] [place] [address] Jun, [facility] [address] [facility] [id number] [address] May, [facility] [address] [facility] [id number], [place] [address] May, [facility] [address] [facility] [id number], [place] [address] May, Other chronic pain G89.29 [facility] [address] [place] [id number] May, Encounter to establish care Z76.89 ; 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, 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 ; Hypothyroidism, [...] HISTORY Never Assessed REASON FOR VISIT Controlled Refill Request PLAN OF CARE VITAL SIGNS MEDICATIONS Medication Instructions Dosage Frequency Start Date End Date Duration Status Ambien 5 mg Orally Once a day 1 tablet at bedtime 24h Feb, 28 days Active RESULTS No Results PROCEDURES [...] Acute Kidney Injury 08/05/16 Hospitalization History UTI, Sepsis--[facility] Hospitalization History Chest pain/SOB/A-fib 02/2017 Hospitalization History Chest pain-[facility] 04/13/17 Hospitalization History UTI, respiratory failure, altered mental status-[facility] 09/13/17
--- OUTSIDE RECORDS SUMMARY | 2018-09-17 19:21 | XMS REPORT ---
Author Author LATONYA KMI [facility] Address [address] [place] [address] Care Team Providers Care Critical Care Nurse Practitioner Name Role Phone LATONYA KIM Unavailable PROBLEMS Type Condition ICD9-CM Code [id number] Code Onset Dates Condition Status SNOMED Code Problem Decreased renal function N28.9 Active 06443332 Problem Bladder spasms N32.89 Active 568739551 Problem Chronic fatigue R53.82 Active 17317257 Problem Intractable migraine without aura and with status migrainosus G43.011 Active 559919295 Problem 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, unspecified keno terminal operator insulin use status E11.9 Active 81639711 Problem Nephrolithiasis N20.0 Active 32091265 Problem Chronic kidney disease (CKD), unspecified stage N18.9 Active 704827805 Problem Urinary incontinence, unspecified type R32 Active 324554896 Problem Primary insomnia F51.01 Active 9955458 Problem Anxiety F41.9 Active 15387131 Problem Venous stasis dermatitis of both lower extremities I87.2 Active 94512149 Problem Stage 4 chronic kidney disease N18.4 Active 617919507 Problem Cataract H26.9 Active 665577547 Problem Obstructive sleep apnea syndrome G47.33 Active 61451739 Problem Depression, unspecified depression type F32.9 Active 03278768 Problem Hypothyroidism, unspecified type E03.9 Active 01772424 Problem Perennial allergic rhinitis, unspecified allergic rhinitis trigger J30.89 Active 030088971 Problem Restless leg syndrome G25.81 Active 96206299 Problem Closed fracture of left patella, unspecified fracture morphology, sequela S82.002S Active 78651133 Problem Gastroesophageal reflux disease without esophagitis K21.9 Active 728371488 Problem Atrial fibrillation, unspecified type I48.91 Active 56044791 Problem Morbid obesity due to excess calories E66.01 Active 575246612 Problem Other chronic pain G89.29 Active 00221458 Problem Ulcer L98.499 Active 019407329 ALLERGIES Substance Reaction Event Type Date Status Tetracycline HCl Unknown Drug Allergy May, Active Sulfamethoxazole-Trimethoprim Unknown Drug Allergy May, Active Divalproex Sodium Unknown Drug Allergy May, Active ENCOUNTERS Encounter Location Date Diagnosis Via [facility] [employer] [address] [place], [place] [id number] Jun, Intractable migraine without aura and with status migrainosus G43.011 and Left hip pain M25.552 [facility] [id number] [place] [address] 88758- 0120 Jun, Other chronic pain G89.29 ; Arthralgia, unspecified joint M25.50 and Primary insomnia F51.01 [facility] [id number] [place] [address] 64438- 6647 Jun, [facility] [id number] [place] [address] 49906- 4581 May, Other chronic pain G89.29 ; Arthralgia, unspecified joint M25.50 and Primary insomnia F51.01 [facility] [id number] [place] [address] 31879- 3053 May, Urinary tract infection without hematuria, site unspecified N39.0 [facility] [id number] [place] [address] 48695- 7440 May, Bladder spasms N32.89 [facility] [id number] [place] [address] 20095- 6908 May, Primary insomnia F51.01 [facility] [id number] [place] [address] 32378- 3163 May, [facility] [id number] [place] [address] 98243- 7964 May, Primary insomnia F51.01 and Arthralgia, unspecified joint M25.50 [facility] [id number] [place] [address] 88588- 8086 May, Other chronic pain G89.29 Via [employer] [address] [place] [id number] May, Nephrolithiasis N20.0 ; Cataract H26.9 and Macrocytic anemia D53.9 [facility] [id number] [place] [address] 64094- 2073 May, [facility] [address] [place] [address] 93983- 0965 Apr, [facility] [id number] [place] [address] 86033- 7018 Apr, [facility] [id number] [place] [address] 49835- 7305 Apr, Primary insomnia F51.01 [facility] [id number] [place] [address] 66227- 7382 Apr, [facility] [id number] [place] [address] 22286- 7084 March, Other chronic pain G89.29 Via [employer] [address] [place] [id number] March, Arthralgia, unspecified joint M25.50 ; Abnormal urine sediment R82.90 ; Venous stasis dermatitis of both lower extremities I87.2 ; Stage 4 chronic kidney disease N18.4 and Cataract of right eye, unspecified cataract type H26.9 [facility] [address] [place] [address] 48944- 6387 March, Primary insomnia F51.01 Via [facility] [employer] [address] [place] [id number] March, Cervicalgia M54.2 ; Acute pain of right shoulder M25.511 and Pain of left femur M89.8X5 [facility] [id number] [place] [address] 34901- 3560 March, [facility] [address] [place] [address] 38218- 6564 March, Other chronic pain G89.29 [facility] [id number] [place] [address] 65462- 2917 Feb, Via [facility] [address] [place] [id number] Feb, Leg swelling M79.89 [facility] [address] [place] [address] 38920- 0214 Feb, Primary insomnia F51.01 Via [facility] [address] [place] [id number] Feb, Fever in other diseases R50.81 and Intermittent left lower quadrant abdominal pain R10.32 [facility] [id number] [place] [address] 05765- 9794 Feb, [facility] [id number] [place] [address] 88882- 7417 Feb, [facility] [id number] [place] [address] 75238- 2438 Feb, Depression, unspecified depression type F32.9 ; Hypothyroidism, unspecified type E03.9 ; 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, unspecified fdc insulin use status E11.9 and Anxiety F41.9 [facility] [id number] [place] [address] 68210- 4004 Feb, Other chronic pain G89.29 [facility] [id number] [place] [address] [id number] Jan, Other chronic pain G89.29 [facility] [id number] [place] [address] 66416- 6689 Jan, Bladder spasms N32.89 [facility] [id number] [place] [address] 41315- 1182 Jan, Bladder spasms N32.89 [facility] [id number] [place] [address] 21423- 7336 Dec, Bladder spasms N32.89 [facility] [id number] [place] [address] 61728- 8123 Dec, Depression, unspecified depression type F32.9 [facility] [address] [facility] [id number] [address] 69[address] Dec, Via [employer] [address] [place] [id number] Dec, Hypothyroidism, unspecified type E03.9 ; Depression, unspecified depression type F32.9 ; Other chronic pain G89.29 ; Urinary retention R33.9 and Atrial fibrillation, unspecified type I48.91 [facility] [id number] [place] [id number] Dec, [facility] [id number] [place] [address] [id number] Dec, Other chronic pain G89.29 [facility] [id number] [place] [address] [id number] Nov, [facility] [id number] [place] [address] [id number] Nov, Other chronic pain G89.29 [facility] [address] [address]- 4305 Nov, Other chronic pain G89.29 [facility] [address] [address]- 6946 Nov, [facility] [address] [address]- 0428 Nov, [facility] [address] [address]- 4796 Nov, Other chronic pain G89.29 [facility] [id number] [address]- 8237 Nov, Other chronic pain G89.29 [facility] [place] [id number] [address] 9965 Oct, [facility] [place] [id number] [address] 8831 Oct, Other chronic pain G89.29 Via [facility] [employer] [address] [place] [id number] Oct, 2017 Weakness R53.1 ; Macrocytic anemia D53.9 ; Discolored skin L81.9 ; Other chronic pain G89.29 ; Dysuria R30.0 and Hayes catheter in place Z92.89 [facility] [place] [address] [address] 07 Oct, 2017 Other chronic pain G89.29 [facility] [id number] [place] [address] [id number] Sep, [facility] [address] [place] [address] 92866- 4807 Sep, [facility] [address] [place] [address] [id number]- 9431 Sep, [facility] [id number] [place] [address] [id number] Sep, [facility] [id number] [place] [address] [id number] Sep, Other chronic pain G89.29 [facility] [address] [place] [address] 64285- 7403 Sep, [facility] [id number] [place] [address] [id number] Sep, Other chronic pain G89.29 [facility] [address] [place] [id number] Sep, Chronic urinary tract infection N39.0 ; Other chronic pain G89.29 ; Chronic kidney disease (CKD), unspecified stage N18.9 ; 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, unspecified fdc insulin use status E11.9 ; Hypothyroidism, unspecified type E03.9 ; Depression, unspecified depression type F32.9 ; Cataract H26.9 ; Obstructive sleep apnea syndrome G47.33 ; Atrial fibrillation, unspecified type I48.91 ; History of femur fracture Z87.81 and Hayes catheter in place Z92.89 [facility] [address] [place] [address] 71708- 0664 Sep, [facility] [address] [address]- 4358 Aug, [facility] [id number] [place] [address] 88978- 3051 Aug, Other chronic pain G89.29 [facility] [id number] [place] [address] 85371- 7327 Aug, [facility] [id number] [place] [address] 31105- 1298 Aug, [facility] [id number] [place] [address] [id number] Aug, [facility] [id number] [place] [address] 71183- 8425 Aug, [facility] [id number] [place] [address] 11544- 5822 Aug, 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, unspecified keno terminal operator insulin use status E11.9 [facility] [address] [place] [address] 92855- 3471 Aug, Other chronic pain G89.29 [facility] [id number] [place] [address] 63712- 8670 Aug, [facility] [address] [place] [address] 35032- 9038 Aug, [facility] [id number] [place] [address] 90009- 8461 Jul, Other chronic pain G89.29 [facility] [id number] [place] [address] 88407- 3838 Jul, [facility] [id number] [place] [address] 04381- 4303 Jul, Dark brown urine R82.99 [facility] [address] [place] [address] 96464- 8580 Jul, Dark brown urine R82.99 [facility] [id number] [address]- 7508 14 Jul, 2017 [facility] [id number] [place] [address] 93593- 6436 Jun, Other chronic pain G89.29 [facility] [id number] [place] [address] 77990- 9189 Jun, 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, unspecified keno terminal operator insulin use status E11.9 [facility] [id number] [place] [address] 06041- 3128 May, Candidiasis, intertrigo B37.2 [facility] [id number] [place] [address] 07468- 3602 May, Other chronic pain G89.29 [facility] [id number] [place] [address] 32520- 4231 May, [facility] [id number] [place] [address] 05526- 0057 May, [facility] [id number] [place] [address] 64274- 1163 May, Candidiasis, intertrigo B37.2 [facility] [id number] [place] [address] 83348- 5030 May, Atrial fibrillation, unspecified type I48.91 [facility] [id number] [place] [address] 76148- 5192 May, Hypothyroidism, unspecified type E03.9 and Decreased renal function N28.9 [facility] [id number] [place] [address] 83805- 1278 May, 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, unspecified fdc insulin use status E11.9 [facility] [id number] [place] [address] 18078- 2197 May, Dental examination Z01.20 [facility] [address] [address]- 0895 May, Chronic kidney disease (CKD), unspecified stage N18.9 ; 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, unspecified keno terminal operator insulin use status E11.9 ; Hypothyroidism, unspecified type E03.9 ; Depression, unspecified depression type F32.9 ; Anemia, unspecified type D64.9 and Ulcer L98.499 [facility] [id number] [place] [address] 17529- 1142 May, [facility] [id number] [place] [address] 03553- 5588 Apr, Other chronic pain G89.29 [facility] [id number] [place] [address] 65103- 8646 Apr, Other chronic pain G89.29 [facility] [id number] [place] [address] 73237- 2544 March, [facility] [id number] [place] [address] 50697- 2104 March, [facility] [id number] [place] [address] 85676- 7781 March, [facility] [id number] [place] [address] 22972- 6439 March, Other chronic pain G89.29 [facility] [id number] [place] [address] 87788- 5934 March, [facility] [id number] [place] [address] 66470- 2061 Feb, [facility] [id number] [place] [address] 91951- 3273 Feb, 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, unspecified keno terminal operator insulin use status E11.9 ; Candidiasis, intertrigo B37.2 ; Decubitus ulcer of left buttock, unstageable L89.320 and Pressure ulcer of contiguous region involving right buttock and hip, unspecified ulcer stage L89.40 [facility] [address] [facility] [id number] [address]- 8945 Feb, Atrial fibrillation, unspecified type I48.91 [facility] [address] [address]- 1985 Feb, [facility] [address] [address]- 9660 Feb, [facility] [address] [place] [address] 65082- 9847 Feb, Other chronic pain G89.29 [facility] [id number] [place] [address] 61706- 3410 Jan, Other chronic pain G89.29 [facility] [address] [address]- 7474 Dec, [facility] [id number] [place] [address] 28714- 8263 Dec, Lethargy R53.83 [facility] [address] [address]- 7557 17 Dec, 2016 [facility] [address] [address]- 8892 10 Dec, 2016 Other chronic pain G89.29 [facility] [address] [address]- 3128 Nov, [facility] [address] [address]- 2237 Nov, [facility] [address] [address]- 8153 Nov, Other chronic pain G89.29 [facility] [address] [address]- 1977 Nov, [facility] [address] [address]- 2282 Nov, [facility] [address] [address]- 7980 Nov, [facility] [id number] [place] [address] 80890- 9702 Oct, Cough R05 [facility] [address] [place] [address] 41807- 2306 Oct, Urinary tract infection, site not specified N39.0 [facility] [id number] [place] [address] 79435- 9404 Oct, Other chronic pain G89.29 [facility] [id number] [place] [address] 04603- 5422 Oct, 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, unspecified keno terminal operator insulin use status E11.9 ; [...] J30.89 ; Nausea R11.0 and Candidiasis B37.9 [facility] [address] [address]- 2848 Oct, [facility] [address] [place] [address] 90431- 8216 Oct, [facility] [address] [place] [address] 24762- 0583 Oct, [facility] [id number] [place] [address] 54406- 2901 Oct, Chronic kidney disease (CKD), unspecified stage N18.9 [facility] [id number] [place] [address] 36387- 2825 Oct, [facility] [address] [address]- 0157 Sep, Other chronic pain G89.29 [facility] [id number] [place] [address] 38820- 7998 Sep, Chronic kidney disease (CKD), unspecified stage N18.9 and Senile cataract of right eye, unspecified age-related cataract type H25.9 [facility] [id number] [place] [address] 87766- 6285 Sep, [facility] [id number] [place] [address] 84492- 2417 Sep, [facility] [id number] [place] [address] 18959- 9829 Sep, [facility] [id number] [place] [address] 09280- 7803 Sep, [facility] [id number] [place] [address] 96243- 0345 Sep, [facility] [address] [place] [address] 67405- 8125 Aug, [facility] [address] [place] [address] 36057- 9677 Aug, [facility] [address] [address]- 6018 Aug, [facility] [id number] [place] [address] 88437- 5968 Aug, Encounter to establish care Z76.89 ; Other chronic pain G89.29 ; Chronic kidney disease (CKD), unspecified stage N18.9 ; Obstructive sleep apnea syndrome G47.33 ; 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, unspecified fdc insulin use status E11.9 ; Urinary incontinence, unspecified type R32 ; Depression, unspecified depression type F32.9 ; History of femur fracture Z87.81 ; History of fractured kneecap Z87.81 ; Hypothyroidism , unspecified type E03.9 ; Cataract H26.9 and Gastroesophageal reflux disease without esophagitis K21.9 [facility] [address] [address]- 4621 14 Aug, 2016 [facility] [address] [place] [address] 40627- 2942 Aug, Urinary incontinence, unspecified type R32 [facility] [id number] [place] [phone] Aug, [place] [id number] [place] [address] 28 Jul, 2016 [employer] [address] [id number] Jul, 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, unspecified fdc insulin use status E11.9 ; Chronic kidney [...] E03.9 and Constipation, unspecified constipation type K59.00 [place] [address] [address] Jul, [place] [address] [place] [address] 16 Jul, 2016 [facility] [address] [id number] Jul, Anemia, unspecified type D64.9 ; Acute renal failure, unspecified acute renal failure type N17.9 ; Other chronic pain G89.29 ; Obstructive sleep apnea syndrome G47.33 and 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, unspecified keno terminal operator insulin use status E11.9 [place] [id number] [place] [address] 13 Jul, 2016 [facility] [place] [id number] [place] [address] Jul, [facility] [address] [address] [id number] [place] [address] Jul, [facility] [address] [id number] [place] [address] Jul, [facility] [place] [address] [facility] [id number] [place] [address] Jul, [facility] [address], [place] [id number] Jun, Other chronic pain G89.29 ; Hayes catheter in place Z92.89 ; Chronic kidney disease (CKD), unspecified stage N18.9 and Blisters of multiple sites R23.8 [facility] [place] [address] [id number] [place] [address] Jun, [facility] [address] [id number] [place] [address] Jun, [facility] [address] [facility] [id number] [place] [address] Jun, [facility] [place] [address] [facility] [id number] [place] [address] Jun, [facility] [address] [facility] [id number] [place] [address] Jun, [facility] [address] [facility] [id number] [place] [address] Jun, [facility] [address] [facility] [id number] [place] [address] Jun, [facility] [address] [facility] [id number] [place] [address] Jun, [facility] [address] [facility] [id number] [place] [address] Jun, [facility] [address] [id number] [place] [address] Jun, [facility] [place] [address] [facility] [id number] [place] [address] Jun, [facility] [place] [address] [facility] [id number] [place] [address] May, [facility] [place] [address] [facility] [id number] [place] [address] May, [facility] [place] [address] [facility] [id number] [place] [address] May, Other chronic pain G89.29 [facility] [address], [place] [id number] May, Encounter to establish care Z76.89 ; 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, unspecified keno terminal operator insulin use status E11.9 ; [...] SOCIAL HISTORY Never Assessed REASON FOR VISIT Readmit from [facility] PLAN OF CARE Activity Details Follow Up prn Reason: VITAL SIGNS MEDICATIONS Medication Instructions Dosage Frequency Start Date End Date Duration Status Dulcolax 5 mg Orally Once a day 2 tablet as needed 24h Active Eliquis 5 mg Orally 2 times a day 1 tablet 12h Active Ondansetron HCl 8 MG Orally 3 times a day 1 tablet as needed 8h Active Chioma-Lanta 200-200-20 MG/5ML Orally Four times a day 10 ml as needed 6h Active Cranberry 450 MG Orally Three times a day 1 tablet with meals 8h March, Jul, 30 days Active Lyrica 75 MG Orally twice a day 1 capsule 12h March, 30 days Active Sevelamer Carbonate 800 MG Orally Three times a day 1 tablet with meals 8h Active Trintellix 20 MG Orally Once a day 1 tablet 24h Active Oxybutynin Chloride ER 10 MG Orally Once a day 1 tablet 24h Active Evelyn Root 550 MG Orally 2 times a day 1 capsule as needed 12h Active Aspercreme w/Lidocaine 4 % Externally 2 times a day during skin treatment 1 application to affected area Active Biofreeze 4 % Externally 3 times a day 1 application to affected area as needed 8h Active Capsaicin 0.1 % Externally to bilat feet at bedtime 1 application to affected area Active Ketorolac Tromethamine 0.5 % Ophthalmic Four times a day 1 drop into affected eye 6h Active Ambien 5 mg Orally Once a day 1 tablet at bedtime 24h Feb, 28 days Active Fluticasone Propionate 50 MCG/ACT Nasally twice a day 1 spray in each nostril 12h Active Tylenol 325 MG Orally every 6 hrs 2 tablets as needed 6h Active Test strips Active Cyanocobalamin 1000 MCG/ML Injection once monthly 1 ml Active Saline Mist [place] 0.65 % Nasally every 4 hrs 2 sprays in each nostril as needed 4h Active Naphazoline-Zinc Sulfate 0.02 % Ophthalmic- both eyes 4 times a day 2 gtts 6h Active Nystatin - 1 application to affected area 12h Active Vitamin C 500 mg Orally Once a day 1 tablet 24h Active Lorazepam 0.5 MG Orally Once a day 1 tablet 24h 12 Feb, 2018 28 days Active Colace 100 mg Orally Once a day 1 capsule 24h Active Milk of Magnesia Concentrate 2400 MG/10ML Orally Once a day 30 ml as needed 24h Active Nystatin 862991 UNIT/GM Externally Twice a day 1 application to affected area 12h Active Cartia XT 120 MG Orally Once a day 1 capsule 24h Active Synthroid 125 MCG Orally Once a day 1 tablet on an empty stomach in the morning 24h Active MiraLax - Orally Once a day 17 gm 24h Active Silver Sulfadiazine 1 % Externally twice a day 1 application to affected area 12h Active Oxycodone-Acetaminophen 10-325 MG Orally 4 times a day 1 tablet 6h March, 28 days Active Victoza 18 MG/3ML Subcutaneous Once a day 1.8mg 24h Active Pred Forte 1 % Ophthalmic 4 times a day 1 drop into affected eye 6h Active Triamcinolone Acetonide 0.1 % Externally Twice a day 1 application to affected area 12h Active Melatonin 3 MG Orally Once a day 1 tablet at bedtime as needed with food 24h Active Neurontin 300 MG Orally Once a day 1 capsule 24h Active Cipro 500 MG Orally every 12 hrs 1 tablet 12h Apr, May, Active RESULTS No Results PROCEDURES Procedure Date Ordered Result Body Site Minor complication (15 mins) May 24, 2018 INSTRUCTIONS MEDICATIONS ADMINISTERED No Known Medications [...] Kidney Injury 08/05/16 Hospitalization History UTI, Sepsis--[facility] Hospitalization History Chest pain/SOB/A-fib 02/2017 Hospitalization History Chest pain-[facility] 04/13/17 Hospitalization History UTI, respiratory failure, altered mental status-[facility] 09/13/17
--- OUTSIDE RECORDS SUMMARY | 2018-09-17 19:22 | XMS REPORT ---
Author Author LATONYA KIM [facility] Address [address] [place] [address] Care Team Providers Care Car Mover Name Role Phone LATONYA KIM Unavailable PROBLEMS Type Condition ICD9-CM Code QNN34-WK Code Onset Dates Condition Status SNOMED Code Problem Decreased renal function N28.9 Active 70152707 Problem Bladder spasms N32.89 Active 388324062 Problem Chronic fatigue R53.82 Active 23723726 Problem Intractable migraine without aura and with status migrainosus G43.011 Active 550361727 Problem 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, unspecified manager intermediate insulin use status E11.9 Active 31806846 Problem Nephrolithiasis N20.0 Active 00946010 Problem Chronic kidney disease (CKD), unspecified stage N18.9 Active 404099984 Problem Urinary incontinence, unspecified type R32 Active 160855052 Problem Primary insomnia F51.01 Active 8893858 Problem Anxiety F41.9 Active 68952757 Problem Venous stasis dermatitis of both lower extremities I87.2 Active 42503160 Problem Stage 4 chronic kidney disease N18.4 Active 084180801 Problem Cataract H26.9 Active 990200197 Problem Obstructive sleep apnea syndrome G47.33 Active 38330130 Problem Depression, unspecified depression type F32.9 Active 69428034 Problem Hypothyroidism, unspecified type E03.9 Active 17811368 Problem Perennial allergic rhinitis, unspecified allergic rhinitis trigger J30.89 Active 564323499 Problem Restless leg syndrome G25.81 Active 83091784 Problem Closed fracture of left patella, unspecified fracture morphology, sequela S82.002S Active 29362750 Problem Gastroesophageal reflux disease without esophagitis K21.9 Active 626474905 Problem Atrial fibrillation, unspecified type I48.91 Active 79129330 Problem Morbid obesity due to excess calories E66.01 Active 921767561 Problem Other chronic pain G89.29 Active 50401591 Problem Ulcer L98.499 Active 209176856 ALLERGIES No Information ENCOUNTERS Encounter Location Date Diagnosis Via [facility] [employer] [address] [place] [id number] Jun, Intractable migraine without aura and with status migrainosus G43.011 and Left hip pain M25.552 [place] [address] [place] [address] 03319- 9448 Jun, Other chronic pain G89.29 ; Arthralgia, unspecified joint M25.50 and Primary insomnia F51.01 [place] [address] [id number] [place] [address] 30494- 7996 Jun, [place] [address] [address]- [address] May, Other chronic pain G89.29 ; Arthralgia, unspecified joint M25.50 and Primary insomnia F51.01 [place] [id number] [place] [address] 17675- 1828 May, Urinary tract infection without hematuria, site unspecified N39.0 [place] [address] [id number] [place] [address] 31947- 3366 May, Bladder spasms N32.89 [place] [id number] [place] [address] 86458- 8537 May, Primary insomnia F51.01 [place] [address] [id number] [place] [address] 17148- 9288 May, [place] [id number] [place] [address] 01126- 3860 May, Primary insomnia F51.01 and Arthralgia, unspecified joint M25.50 [place] [address] [id number] [place] [address] 28393- 1648 May, Other chronic pain G89.29 [facility] [employer] [address] [place] [id number] May, Nephrolithiasis N20.0 ; Cataract H26.9 and Macrocytic anemia D53.9 [place] [id number] [address] May, [facility] [address], [place] [address] 2430 Apr, [facility] [address] [address] 5[address] Apr, [place] [address] [place] [address] 05359- 4597 Apr, Primary insomnia F51.01 [facility] [id number] [address] 5476 Apr, [place] [address] [address] 3340 March, Other chronic pain G89.29 Via [facility] [address] [place] [id number] March, Arthralgia, unspecified joint M25.50 ; Abnormal urine sediment R82.90 ; Venous stasis dermatitis of both lower extremities I87.2 ; Stage 4 chronic kidney disease N18.4 and Cataract of right eye, unspecified cataract type H26.9 [place] [id number] [address] 9740 March, Primary insomnia F51.01 Via [facility] [employer] [address] [place] [id number] March, Cervicalgia M54.2 ; Acute pain of right shoulder M25.511 and Pain of left femur M89.8X5 [facility] [address] [facility] [id number] [address] March, [place] [id number] [address] 7396 March, Other chronic pain G89.29 [place] [id number] [address] 7645 Feb, [facility] [address] [place] [id number] Feb, Leg swelling M79.89 [facility] [address] [place] [address] 11435- 1434 Feb, Primary insomnia F51.01 [facility] [employer] [address] [place] [id number] Feb, Fever in other diseases R50.81 and Intermittent left lower quadrant abdominal pain R10.32 [place] [address] [id number] [place] [address] 69362- 9545 Feb, [place] [id number] [place] [address] 21845- 6138 Feb, [place] [id number] [place] [address] 28691- 4557 Feb, Depression, unspecified depression type F32.9 ; Hypothyroidism, unspecified type E03.9 ; 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, unspecified manager intermediate insulin use status E11.9 and Anxiety F41.9 [place] [id number] [place] [address] 42278- 0471 Feb, Other chronic pain G89.29 [facility] [id number] [place] [address] [id number] Jan, Other chronic pain G89.29 [place] [address] [id number] [place] [address] 55981- 5645 Jan, Bladder spasms N32.89 [facility] [id number] [place] [address] 70940- 3010 Jan, Bladder spasms N32.89 [place] [id number] [place] [address] 67966- 6595 Dec, Bladder spasms N32.89 [place] [id number] [place] [address] 09256- 8279 Dec, Depression, unspecified depression type F32.9 [facility] [id number] [place] [address] 88905- 3233 Dec, Via [employer] [address] [place] [id number] Dec, Hypothyroidism, unspecified type E03.9 ; Depression, unspecified depression type F32.9 ; Other chronic pain G89.29 ; Urinary retention R33.9 and Atrial fibrillation, unspecified type I48.91 [facility] [id number] [address] Dec, [facility] [id number] [place] [address] [id number] Dec, Other chronic pain G89.29 [facility] [id number] [place] [address] [id number] Nov, [facility] [id number] [place] [address] [id number] Nov, Other chronic pain G89.29 [facility] [address] [place] [address] 94829- 3846 Nov, Other chronic pain G89.29 [facility] [address] [place] [address] 95643- 3319 Nov, [facility] [id number] [place] [address] 25925- 0126 Nov, [facility] [address] [place] [address] 61129- 4992 Nov, Other chronic pain G89.29 [facility] [address] [place] [address] 24899- 3516 Nov, Other chronic pain G89.29 [facility] [address] [place] [address] 71993- 5469 Oct, [facility] [address] [place] [address] 85172 2546 Oct, Other chronic pain G89.29 [facility] [employer] [address] [id number] Oct, Weakness R53.1 ; Macrocytic anemia D53.9 ; Discolored skin L81.9 ; Other chronic pain G89.29 ; Dysuria R30.0 and Hayes catheter in place Z92.89 [facility] [address] [place] [address] 46301- 7515 Oct, Other chronic pain G89.29 [facility] [id number] [address] Sep, [facility] [id number] [place] [address] 52425- 6521 Sep, [facility] [address] [place] [address] 07604- 8867 Sep, [facility] [id number] [place] [address] [id number] Sep, [facility] [id number] [place] [address] [id number] Sep, Other chronic pain G89.29 [facility] [id number] [place] [address] 67851- 8585 Sep, [facility] [id number] [place] [address] [id number] Sep, Other chronic pain G89.29 [facility] [address] [facility] [facility] [address] [place] [id number] Sep, Chronic urinary tract infection N39.0 ; Other chronic pain G89.29 ; Chronic kidney disease (CKD), unspecified stage N18.9 ; 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, unspecified manager intermediate insulin use status E11.9 ; Hypothyroidism, unspecified type E03.9 ; Depression, unspecified depression type F32.9 ; Cataract H26.9 ; Obstructive sleep apnea syndrome G47.33 ; Atrial fibrillation, unspecified type I48.91 ; History of femur fracture Z87.81 and [address] catheter in place Z92.89 [facility] [address] [address]- 8719 Sep, [facility] [address] [place] [address] 39722- 3278 Aug, [facility] [address] [address]- 5260 Aug, Other chronic pain G89.29 [facility] [address] [address]- 5134 Aug, [facility] [address], [place] [address]- 6124 Aug, [facility] [place] [facility] [id number] [place] [address] [id number] Aug, [facility] [address] [place] [address] 33228- 4290 Aug, [facility] [address] [place] [address] 55079- 5019 Aug, 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, unspecified retirement insulin use status E11.9 [facility] [address] [place] [address] 13144- 6163 Aug, Other chronic pain G89.29 [facility] [address] [address]- 1618 18 Aug, 2017 [facility] [address] [place] [address] 24656- 5567 16 Aug, 2017 [facility] [address] [place] [address] 80036- 6011 22 Jul, 2017 Other chronic pain G89.29 [facility] [address], [place] [address]- 8500 19 Jul, 2017 [facility] [address], [place] [address]- 0969 19 Jul, 2017 Dark brown urine R82.99 [facility] [address], [place] [address]- 5670 19 Jul, 2017 Dark brown urine R82.99 [facility] [address] [place] [address] 79406- 2132 Jul, [place] [address] [place] [address] 18104- 5189 Jun, Other chronic pain G89.29 [place] [address] [address] [id number] [place] [address] 38359- 9448 Jun, 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, unspecified retirement insulin use status E11.9 [place] [id number] [place] [address] 38847- 8709 May, Candidiasis, intertrigo B37.2 [place] [address] [id number] [place] [address] 98016- 1593 May, Other chronic pain G89.29 [place] [address] [id number] [place] [address] 09688- 4893 May, [place] [id number] [place] [address] 04289- 7699 May, [place] [id number] [place] [address] 94726- 4273 May, Candidiasis, intertrigo B37.2 [place] [address] [id number] [place] [address] 93084- 5325 May, Atrial fibrillation, unspecified type I48.91 [place] [address] [id number] [place] [address] 46773- 3015 May, Hypothyroidism, unspecified type E03.9 and Decreased renal function N28.9 [place] [id number] [place] [address] 14481- 9716 May, 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, unspecified retirement insulin use status E11.9 [place] [id number] [place] [address] 40259- 4186 May, Dental examination Z01.20 [place] [id number] [place] [address] 10418- 2215 May, Chronic kidney disease (CKD), unspecified stage N18.9 ; 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, unspecified retirement insulin use status E11.9 ; Hypothyroidism, unspecified type E03.9 ; Depression, unspecified depression type F32.9 ; Anemia, unspecified type D64.9 and Ulcer L98.499 [place] [address] [address]- 8261 May, [facility] [id number] [place] [address] 56353- 5500 Apr, Other chronic pain G89.29 [place] [id number] [place] [address] 67753- 1879 Apr, Other chronic pain G89.29 [place] [id number] [place] [address] 52378- 5330 March, [place] [id number] [place] [address] 93871- 6690 March, [place] [id number] [place] [address] 45538- 2276 March, [facility] [id number] [place] [address] 59630- 1029 March, Other chronic pain G89.29 [place] [id number] [place] [address] 58346- 9974 March, [place] [address] [address]- 1012 Feb, [facility] [id number] [place] [address] 00831- 6263 Feb, 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, unspecified retirement insulin use status E11.9 ; Candidiasis, intertrigo B37.2 ; Decubitus ulcer of left buttock, unstageable L89.320 and Pressure ulcer of contiguous region involving right buttock and hip, unspecified ulcer stage L89.40 [facility] [address], [place] [address]- 6108 Feb, Atrial fibrillation, unspecified type I48.91 [facility] [address] [facility] [id number] [address]- 7587 Feb, [facility] [address] [place] [address] 38501- 5736 Feb, [facility] [address], [place] [address]- 0996 Feb, Other chronic pain G89.29 [facility] [address] [place] [address] 73154- 1546 Jan, Other chronic pain G89.29 [facility] [address] [place] [address] 22899- 4936 Dec, [facility] [address] [place] [address] 49012- 5855 Dec, Lethargy R53.83 [facility] [address] [place] [address] 87430- 1429 17 Dec, 2016 [facility] [address] [address]- 1961 Dec, Other chronic pain G89.29 [facility] [address], [place] [address]- 7446 Nov, [facility] [address] [address]- 4860 Nov, [facility] [address], [place] [address]- 0661 Nov, Other chronic pain G89.29 [facility] [address], [place] [address]- 5620 Nov, [facility] [address], [place] [address]- 9670 Nov, [facility] [address], [place] [address]- 7975 Nov, [facility] [id number] [place] [address] 66706- 3807 Oct, Cough R05 [facility] [id number] [place] [address] 17663- 0295 Oct, Urinary tract infection, site not specified N39.0 [facility] [id number] [place] [address] 58219- 5207 16 Oct, 2016 Other chronic pain G89.29 [place] [id number] [place] [address] 98870- 7680 Oct, 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, unspecified manager intermediate insulin use status E11.9 ; Other chronic [...] J30.89 ; Nausea R11.0 and Candidiasis B37.9 [place] [id number] [place] [address] 20177- 1343 Oct, [place] [id number] [place] [address] 94575- 6550 Oct, [place] [id number] [place] [address] 83195- 0626 Oct, [place] [id number] [place] [address] 67292- 5373 Oct, Chronic kidney disease (CKD), unspecified stage N18.9 [place] [id number] [place] [address] 68773- 1636 Oct, [place] [id number] [place] [address] 70685- 3824 Sep, Other chronic pain G89.29 [place] [address], [place] [address]- 4057 Sep, Chronic kidney disease (CKD), unspecified stage N18.9 and Senile cataract of right eye, unspecified age-related cataract type H25.9 [facility] [address] [address]- 5735 Sep, [facility] [address] [address]- 9789 Sep, [facility] [id number] [address]- 9729 Sep, [facility] [id number] [place] [address] 62844- 4491 Sep, [facility] [address], [place] [address]- 3712 Sep, [facility] [id number] [place] [address] 77616- 9503 Aug, [facility] [address], [place] [address]- 5098 Aug, [facility] [address] [address]- 0030 Aug, [facility] [address], [place] [address]- 9382 Aug, Encounter to establish care Z76.89 ; Other chronic pain G89.29 ; Chronic kidney disease (CKD), unspecified stage N18.9 ; Obstructive sleep apnea syndrome G47.33 ; 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, unspecified manager intermediate insulin use status E11.9 ; Urinary incontinence, unspecified type R32 ; Depression, unspecified depression type F32.9 ; History of femur fracture Z87.81 ; History of fractured kneecap Z87.81 ; Hypothyroidism , unspecified type E03.9 ; Cataract H26.9 and Gastroesophageal reflux disease without esophagitis K21.9 [facility] [address] [address]- 9163 14 Aug, 2016 [place] [address] [address]- 3047 Aug, Urinary incontinence, unspecified type R32 [place] [address] [place] [address] 42500- 4344 Aug, [place] [address] [place] [address] 72612- 9469 Jul, [address] [id number] Jul, 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, unspecified manager intermediate insulin use status E11.9 ; Chronic kidney [...] E03.9 and Constipation, unspecified constipation type K59.00 [place] [address] [place] [address] 20988- 4117 19 Jul, 2016 [place] [address] [place] [address] 26647- 7676 16 Jul, [address] [id number] Jul, Anemia, unspecified type D64.9 ; Acute renal failure, unspecified acute renal failure type N17.9 ; Other chronic pain G89.29 ; Obstructive sleep apnea syndrome G47.33 and 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, unspecified manager intermediate insulin use status E11.9 [place] [address] [place] [address] 80792- 8297 13 Jul, 2016 [place] [address] [place] [address] 80745- 1260 Jul, [place] [id number] [place] [address]- 9048 Jul, [facility] [address] [id number] [place] [address]- 9836 Jul, [facility] [address] [facility] [id number] [place] [address]- 2541 Jul, [facility] [address] [id number] Jun, Other chronic pain G89.29 ; Hayes catheter in place Z92.89 ; Chronic kidney disease (CKD), unspecified stage N18.9 and Blisters of multiple sites R23.8 [facility] [address] [id number] [place] [address]- 0846 Jun, [facility] [address] [facility] [id number] [place] [address]- 5261 Jun, [facility] [id number] [place] [address]- 6395 Jun, [facility] [address] [id number] [place] [address]- 9276 Jun, [facility] [address] [facility] [id number] [place] [address]- 2413 Jun, [facility] [address] [facility] [id number] [place] [address]- 5086 Jun, [facility], [facility] [address] [facility] [id number] [place] [address]- 8082 Jun, [facility] [address] [facility] [id number] [place] [address] 2549 Jun, [facility] [address] [facility] [id number] [place] [address]- 2541 Jun, [facility] [address] [facility] [id number] [place] [address]- 2541 Jun, [facility], [facility] [address] [facility] [id number] [place] [address] Jun, [facility] [address] [id number] [address] May, [facility] [address] [id number], [place] [address] May, [facility] [address] [id number], [place] [address] May, Other chronic pain G89.29 [facility] [address] [place], [place] [id number] May, Encounter to establish care Z76.89 ; 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, unspecified manager intermediate insulin use status E11.9 ; Hypothyroidism, [...] SOCIAL HISTORY Never Assessed REASON FOR VISIT Requests return call PLAN OF CARE VITAL SIGNS MEDICATIONS No Known Medications RESULTS No Results PROCEDURES No Known [...]
--- OUTSIDE RECORDS SUMMARY | 2018-09-17 19:22 | XMS REPORT ---
Author Author LATONYA KIM [facility] Address [address] [place] [address] Care Team Providers Care Mycology Teacher Name Role Phone LATONYA KIM Unavailable PROBLEMS Type Condition ICD9-CM Code HNI10-GV Code Onset Dates Condition Status SNOMED Code Problem Decreased renal function N28.9 Active 45395052 Problem Bladder spasms N32.89 Active 095908691 Problem Chronic fatigue R53.82 Active 87201007 Problem Intractable migraine without aura and with status migrainosus G43.011 Active 533116413 Problem 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, unspecified manager intermediate insulin use status E11.9 Active 12461181 Problem Nephrolithiasis N20.0 Active 19436001 Problem Chronic kidney disease (CKD), unspecified stage N18.9 Active 348368306 Problem Urinary incontinence, unspecified type R32 Active 865490530 Problem Primary insomnia F51.01 Active 1629275 Problem Anxiety F41.9 Active 52041600 Problem Venous stasis dermatitis of both lower extremities I87.2 Active 76901053 Problem Stage 4 chronic kidney disease N18.4 Active 610453188 Problem Cataract H26.9 Active 899857471 Problem Obstructive sleep apnea syndrome G47.33 Active 33596248 Problem Depression, unspecified depression type F32.9 Active 05479820 Problem Hypothyroidism, unspecified type E03.9 Active 93882779 Problem Perennial allergic rhinitis, unspecified allergic rhinitis trigger J30.89 Active 419870063 Problem Restless leg syndrome G25.81 Active 65989084 Problem Closed fracture of left patella, unspecified fracture morphology, sequela S82.002S Active 90466690 Problem Gastroesophageal reflux disease without esophagitis K21.9 Active 761129726 Problem Atrial fibrillation, unspecified type I48.91 Active 99246327 Problem Morbid obesity due to excess calories E66.01 Active 265652391 Problem Other chronic pain G89.29 Active 00083541 Problem Ulcer L98.499 Active 468201497 ALLERGIES No Information ENCOUNTERS Encounter Location Date Diagnosis [facility] [address] [place] [id number] Jun, Intractable migraine without aura and with status migrainosus G43.011 and Left hip pain M25.552 [place] [id number] [place] [address] 69348- 4985 Jun, Other chronic pain G89.29 ; Arthralgia, unspecified joint M25.50 and Primary insomnia F51.01 [place] [address] [place] [id number] [place] [address] 46039- 7246 Jun, [place] [address] [address]- 0194 May, Other chronic pain G89.29 ; Arthralgia, unspecified joint M25.50 and Primary insomnia F51.01 [place] [address] [place] [id number] [place] [address] 89789- 2549 May, Urinary tract infection without hematuria, site unspecified N39.0 [place] [address] [id number] [place] [address] 13493- 6144 May, Bladder spasms N32.89 [place] [address] [id number] [place] [address] 02367- 5336 May, Primary insomnia F51.01 [place] [address] [place] [id number] [place] [address] 17567- 9851 May, [place] [address] [address] [id number] [place] [address] 08925- 7424 May, Primary insomnia F51.01 and Arthralgia, unspecified joint M25.50 [place] [address] [place] [id number] [place] [address] 63501- 8208 May, Other chronic pain G89.29 [address] [facility] [address] [place] [id number] May, Nephrolithiasis N20.0 ; Cataract H26.9 and Macrocytic anemia D53.9 [place] [address] [place] [id number] [address] May, [facility] [address] [address] 9997 Apr, [facility] [address] [address] 9563 Apr, [place] [id number] [place] [address] 49099- 4371 Apr, Primary insomnia F51.01 [facility] [address] [id number] [address] 5312 Apr, [place] [address] [address] 8282 March, Other chronic pain G89.29 [facility] [address] [place] [id number] March, Arthralgia, unspecified joint M25.50 ; Abnormal urine sediment R82.90 ; Venous stasis dermatitis of both lower extremities I87.2 ; Stage 4 chronic kidney disease N18.4 and Cataract of right eye, unspecified cataract type H26.9 [place] [address] [address] [id number] [address] 2776 March, Primary insomnia F51.01 [facility] [employer] [address] [place] [id number] March, Cervicalgia M54.2 ; Acute pain of right shoulder M25.511 and Pain of left femur M89.8X5 [facility] [address] [facility] [id number] [address] 94[address] March, [place] [address] [address] [id number] [address] 3748 March, Other chronic pain G89.29 [place] [address] [place] [id number] [address] 9731 Feb, [facility] [address] [place] [id number] Feb, Leg swelling M79.89 [facility] [id number] [place] [address] 60097- 1556 Feb, Primary insomnia F51.01 [facility] [employer] [address] [place] [id number] Feb, Fever in other diseases R50.81 and Intermittent left lower quadrant abdominal pain R10.32 [place] [address] [place] [id number] [place] [address] 10805- 0289 Feb, [place] [address] [place] [id number] [place] [address] 04075- 4415 Feb, [place] [address] [place] [id number] [place] [address] 21966- 6830 Feb, Depression, unspecified depression type F32.9 ; Hypothyroidism, unspecified type E03.9 ; 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, unspecified manager intermediate insulin use status E11.9 and Anxiety F41.9 [place] [address] [place] [id number] [place] [address] 83037- 9500 Feb, Other chronic pain G89.29 [facility] [address] [id number] [place] [address] [id number] Jan, Other chronic pain G89.29 [place] [address] [place] [id number] [place] [address] 36662- 1153 Jan, Bladder spasms N32.89 [facility] [address] [place] [id number] [place] [address] 93987- 4794 Jan, Bladder spasms N32.89 [place] [address] [place] [id number] [place] [address] 26166- 3260 Dec, Bladder spasms N32.89 [place] [address] [place] [id number] [place] [address] 32066- 5007 Dec, Depression, unspecified depression type F32.9 [facility] [address] [place] [id number] [place] [address] 32811- 2869 Dec, [facility] [address] [place] [place] [id number] Dec, Hypothyroidism, unspecified type E03.9 ; Depression, unspecified depression type F32.9 ; Other chronic pain G89.29 ; Urinary retention R33.9 and Atrial fibrillation, unspecified type I48.91 [facility] [id number] [place] [address] Dec, [facility] [id number] [place] [address] [id number] Dec, Other chronic pain G89.29 [facility] [address] [id number] [place] [address] [id number] Nov, [facility] [id number] [place] [address] [id number] Nov, Other chronic pain G89.29 [facility] [id number] [place] [address] 90861- 3626 Nov, Other chronic pain G89.29 [facility] [id number] [place] [address] 83556- 8166 Nov, [facility] [address] [address] [id number] [place] [address] 20229- 0316 Nov, [facility] [id number] [place] [address] 18153- 4928 Nov, Other chronic pain G89.29 [facility] [id number] [place] [address] 10111- 4236 Nov, Other chronic pain G89.29 [facility] [id number] [place] [address] 79122- 1358 Oct, [facility] [id number] [place] [address] 45682 2546 Oct, Other chronic pain G89.29 [address] [facility] [address] [place] [place] [id number] Oct, Weakness R53.1 ; Macrocytic anemia D53.9 ; Discolored skin L81.9 ; Other chronic pain G89.29 ; Dysuria R30.0 and Hayes catheter in place Z92.89 [facility] [id number] [place] [address] 35103- 5273 Oct, Other chronic pain G89.29 [facility] [id number] [place] [id number] Sep, [facility] [address] [place] [id number] [place] [address] 80272- 5409 Sep, [facility] [id number] [place] [address] 23310- 2788 Sep, [facility] [id number] [place] [address] [id number] Sep, [facility] [id number] [place] [address] [id number] Sep, Other chronic pain G89.29 [facility] [address] [place] [address] [id number] [place] [address] 66162- 1334 Sep, [facility] [id number] [place] [address] [id number] Sep, Other chronic pain G89.29 [facility] [address] [place] [id number] Sep, Chronic urinary tract infection N39.0 ; [...] Z87.81 and Hayes catheter in place Z92.89 [facility] [address] [address]- 1510 Sep, [facility] [id number] [place] [address] 54106- 5493 Aug, [facility] [address] [address]- 0454 Aug, Other chronic pain G89.29 [facility] [address] [address]- 1477 Aug, [facility] [address] [address]- 2584 Aug, [facility] [place] [facility] [id number] [place] [address] [id number] Aug, [facility] [id number] [place] [address] 03787- 7066 Aug, [facility] [id number] [place] [address] 04110- 4126 Aug, 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, unspecified usp insulin use status E11.9 [facility] [id number] [place] [address] 53337- 1008 Aug, Other chronic pain G89.29 [facility] [address] [address]- 7524 18 Aug, 2017 [facility] [id number] [place] [address] 40012- 9488 16 Aug, 2017 [facility] [id number] [place] [address] 14694- 3997 22 Jul, 2017 Other chronic pain G89.29 [facility] [address] [address]- 8815 19 Jul, 2017 [facility] [address] [address]- 7048 19 Jul, 2017 Dark brown urine R82.99 [facility] [address] [address]- 6684 19 Jul, 2017 Dark brown urine R82.99 [facility] [id number] [place] [address] 84646- 9278 Jul, [place] [id number] [place] [address] 08264- 4060 Jun, Other chronic pain G89.29 [place] [address] [place] [id number] [place] [address] 81585- 0769 Jun, 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, unspecified usp insulin use status E11.9 [place] [address] [place] [id number] [place] [address] 60638- 0366 May, Candidiasis, intertrigo B37.2 [place] [address] [place] [id number] [place] [address] 00881- 6461 May, Other chronic pain G89.29 [place] [address] [place] [id number] [place] [address] 11430- 4578 May, [place] [address] [place] [address] [id number] [place] [address] 11162- 2421 May, [place] [address] [place] [address] [id number] [place] [address] 83716- 7782 May, Candidiasis, intertrigo B37.2 [place] [address] [place] [id number] [place] [address] 62120- 3056 May, Atrial fibrillation, unspecified type I48.91 [place] [address] [place] [id number] [place] [address] 35539- 1378 May, Hypothyroidism, unspecified type E03.9 and Decreased renal function N28.9 [place] [address] [place] [id number] [place] [address] 61231- 2337 May, 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, unspecified usp insulin use status E11.9 [place] [address] [place] [id number] [place] [address] 31558- 8016 May, Dental examination Z01.20 [place] [address] [place] [address] [id number] [place] [address] 50517- 4386 May, Chronic kidney disease (CKD), unspecified stage N18.9 ; 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, unspecified usp insulin use status E11.9 ; Hypothyroidism, unspecified type E03.9 ; Depression, unspecified depression type F32.9 ; Anemia, unspecified type D64.9 and Ulcer L98.499 [place] [address] [address]- 7535 May, [facility] [address] [id number] [place] [address] 81649- 5901 Apr, Other chronic pain G89.29 [place] [address] [place] [id number] [place] [address] 36598- 3155 Apr, Other chronic pain G89.29 [place] [address] [place] [address] [id number] [place] [address] 17606- 7623 March, [place] [address] [place] [address] [id number] [place] [address] 68011- 5444 March, [place] [address] [place] [address] [id number] [place] [address] 38562- 6073 March, [facility] [address] [place] [id number] [place] [address] 35585- 0572 March, Other chronic pain G89.29 [place] [address] [place] [id number] [place] [address] 31801- 0454 March, [place] [address] [address]- 5062 Feb, [facility] [address] [place] [id number] [place] [address] 19276- 2592 Feb, 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, unspecified usp insulin use status E11.9 ; Candidiasis, intertrigo B37.2 ; Decubitus ulcer of left buttock, unstageable L89.320 and Pressure ulcer of contiguous region involving right buttock and hip, unspecified ulcer stage L89.40 [facility] [address] [address]- 4361 Feb, Atrial fibrillation, unspecified type I48.91 [facility] [address] [facility] [id number] [address]- 5865 Feb, [facility] [id number] [place] [address] 60970- 2756 Feb, [facility] [address] [address]- 6226 Feb, Other chronic pain G89.29 [facility] [id number] [place] [address] 67554- 4357 Jan, Other chronic pain G89.29 [facility] [id number] [place] [address] 05961- 3306 Dec, [facility] [id number] [place] [address] 07846- 6851 Dec, Lethargy R53.83 [facility] [id number] [place] [address] 30369- 8230 17 Dec, 2016 [facility] [address] [address]- 0693 Dec, Other chronic pain G89.29 [facility] [address] [address]- 3777 Nov, [facility] [address] [address]- 0746 Nov, [facility] [address] [address]- 5802 Nov, Other chronic pain G89.29 [facility] [address] [address]- 8976 Nov, [facility] [address] [address]- 1228 Nov, [facility] [address] [address]- 6900 Nov, [facility] [id number] [place] [address] 49243- 5911 Oct, Cough R05 [facility] [id number] [place] [address] 62250- 6726 Oct, Urinary tract infection, site not specified N39.0 [facility] [id number] [place] [address] 05628- 6498 16 Oct, 2016 Other chronic pain G89.29 [place] [id number] [place] [address] 62878- 3820 Oct, 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, [...] J30.89 ; Nausea R11.0 and Candidiasis B37.9 [place] [address] [place] [id number] [place] [address] 99892- 2276 Oct, [place] [id number] [place] [address] 34083- 8556 Oct, [place] [id number] [place] [address] 22932- 3954 Oct, [place] [id number] [place] [address] 06090- 0342 Oct, Chronic kidney disease (CKD), unspecified stage N18.9 [place] [address] [id number] [place] [address] 48995- 1498 Oct, [place] [id number] [place] [address] 26995- 5727 Sep, Other chronic pain G89.29 [place] [address] [address]- 2367 Sep, Chronic kidney disease (CKD), unspecified stage N18.9 and Senile cataract of right eye, unspecified age-related cataract type H25.9 [facility] [address] [address]- 7468 Sep, [facility] [id number] [address]- 5239 Sep, [facility] [id number] [address]- 3561 Sep, [facility] [id number] [place] [address] 87910- 3873 Sep, [facility] [address] [address]- 5111 Sep, [facility] [id number] [place] [address] 73132- 5419 Aug, [facility] [address] [address]- 2942 Aug, [facility] [address] [address]- 3654 Aug, [facility] [address] [address]- 0642 Aug, Encounter to establish care Z76.89 ; [...] and Gastroesophageal reflux disease without esophagitis K21.9 [facility] [address] [address]- 1732 14 Aug, 2016 [place] [address] [address]- 3258 Aug, Urinary incontinence, unspecified type R32 [place] [id number] [place] [address] 52982- 9368 Aug, [place] [id number] [place] [address] 94215- 3202 Jul, [address] [id number] Jul, 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, [...] E03.9 and Constipation, unspecified constipation type K59.00 [place] [id number] [place] [address] 81307- 1871 19 Jul, 2016 [place] [id number] [place] [address] 69248- 1007 16 Jul, [address] [id number] Jul, Anemia, unspecified type D64.9 ; Acute renal failure, unspecified acute renal failure type N17.9 ; Other chronic pain G89.29 ; Obstructive sleep apnea syndrome G47.33 and 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, unspecified manager intermediate insulin use status E11.9 [place] [id number] [place] [address] 48646- 0995 13 Jul, 2016 [place] [id number] [place] [address] 30725- 5914 Jul, [place] [id number] [place] [address]- 6575 Jul, [facility] [address] [id number] [place] [address]- 9774 Jul, [facility] [address] [facility] [id number] [place] [address]- 2544 Jul, [facility] [address] [place] [id number] Jun, Other chronic pain G89.29 ; Hayes catheter in place Z92.89 ; Chronic kidney disease (CKD), unspecified stage N18.9 and Blisters of multiple sites R23.8 [facility] [address] [id number] [place] [address]- 7909 Jun, [facility] [address] [facility] [id number] [place] [address]- 9993 Jun, [facility] [id number] [place] [address]- 4612 Jun, [facility] [address] [id number] [place] [address]- 8119 Jun, [facility] [address] [facility] [id number] [place] [address]- 8671 Jun, [facility] [address] [facility] [id number] [place] [address] Jun, [facility] [address] [facility] [id number] [place] [address] Jun, [facility] [address] [facility] [id number] [place] [address] Jun, [facility] [address] [facility] [id number] [place] [address] Jun, [facility] [address] [facility] [id number] [place] [address] Jun, [facility] [address] [facility] [id number] [place] [address] Jun, [facility] [address] [facility] [id number] [place] [address] May, [facility] [address] [facility] [id number] [place] [address] May, [facility] [address] [facility] [id number] [place] [address] May, Other chronic pain G89.29 [facility] [address] [place], [place] [id number] May, Encounter to establish care Z76.89 ; [...] SOCIAL HISTORY Never Assessed REASON FOR VISIT Orders Request PLAN OF CARE VITAL SIGNS MEDICATIONS No [...] stage II decub ulcer to buttocks, leukocytosis 7/3/16 Hospitalization History Anemia, Acute Kidney Injury 08/05/16 Hospitalization History UTI, Sepsis--[facility] Hospitalization History Chest pain/SOB/A-counts include 234 beds at the [facility] 02/2017 Hospitalization History Chest pain-[facility] 04/13/17 Hospitalization History UTI, respiratory failure, altered mental status-[facility] 09/13/17
--- OUTSIDE RECORDS SUMMARY | 2018-09-17 19:23 | XMS REPORT ---
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 Active 09100863 Problem Nephrolithiasis N20.0 Active 27813253 Problem Chronic kidney disease (CKD), unspecified stage N18.9 Active 555778195 Problem Urinary incontinence, unspecified type R32 Active 969451363 Problem Primary insomnia F51.01 Active 9627853 Problem Anxiety F41.9 Active 31600007 Problem Venous stasis dermatitis of both lower extremities I87.2 Active 27664696 Problem Stage 4 chronic kidney disease N18.4 Active 438431837 Problem Cataract H26.9 Active 326014079 Problem Obstructive sleep apnea syndrome G47.33 Active 96215144 Problem Depression, unspecified depression type F32.9 Active 61868623 Problem Hypothyroidism, unspecified type E03.9 Active 71070804 Problem Perennial allergic rhinitis, unspecified allergic rhinitis trigger J30.89 Active 198520344 Problem Restless leg syndrome G25.81 Active 91647785 Problem Closed fracture of left patella, unspecified fracture morphology, sequela S82.002S Active 58559056 Problem Gastroesophageal reflux disease without esophagitis K21.9 Active 273180510 Problem Atrial fibrillation, unspecified type I48.91 Active 73027737 Problem Morbid obesity due to excess calories E66.01 Active 065250658 Problem Other chronic pain G89.29 Active 35339693 Problem Ulcer L98.499 Active 499565698 ALLERGIES No Information ENCOUNTERS Encounter Location Date Diagnosis [facility] [employer] [address] [place] [id number] Jun, Intractable migraine without aura and with status migrainosus G43.011 and Left hip pain M25.552 [place] [address] [place] [address] 52763- 1509 Jun, Other chronic pain G89.29 ; Arthralgia, unspecified joint M25.50 and Primary insomnia F51.01 [place] [id number] [place] [address] 57191- 1380 Jun, [place] [address] [address]21- 7363 May, Other chronic pain G89.29 ; Arthralgia, unspecified joint M25.50 and Primary insomnia F51.01 [place] [id number] [place] [address] 43036- 5261 May, Urinary tract infection without hematuria, site unspecified N39.0 [place] [id number] [place] [address] 54587- 8710 May, Bladder spasms N32.89 [place] [id number] [place] [address] 91029- 3513 May, Primary insomnia F51.01 [place] [id number] [place] [address] 13657- 3952 May, [place] [id number] [place] [address] 14873- 8047 May, Primary insomnia F51.01 and Arthralgia, unspecified joint M25.50 [place] [id number] [place] [address] 27054- 2287 May, Other chronic pain G89.29 [facility] [address] [place] [id number] May, Nephrolithiasis N20.0 ; Cataract H26.9 and Macrocytic anemia D53.9 [place] [id number], [place] [address] May, [facility] [address], [place] [address] 78[address] Apr, [facility] [address], [place] [address] 0565 Apr, [place] [address] [place] [address] 36774- 2404 Apr, Primary insomnia F51.01 [facility] [id number], [place] [address] 0697 Apr, [place] [address], [place] [address] 62[address] March, Other chronic pain G89.29 [facility] [address] [place] [id number] March, Arthralgia, unspecified joint M25.50 ; Abnormal urine sediment R82.90 ; Venous stasis dermatitis of both lower extremities I87.2 ; Stage 4 chronic kidney disease N18.4 and Cataract of right eye, unspecified cataract type H26.9 [place] [id number], [place] [address] 5769 March, Primary insomnia F51.01 [facility] [address] [place] [id number] March, Cervicalgia M54.2 ; Acute pain of right shoulder M25.511 and Pain of left femur M89.8X5 [facility] [address] [facility] [id number] [address] March, [place] [id number], [place] [address] 9815 March, Other chronic pain G89.29 [place] [id number], [place] [address] 4353 Feb, [facility] [address] [place] [id number] Feb, Leg swelling M79.89 [facility] [id number] [place] [address] 40801- 0809 Feb, Primary insomnia F51.01 [facility] [address] [place] [id number] Feb, Fever in other diseases R50.81 and Intermittent left lower quadrant abdominal pain R10.32 [place] [id number] [place] [address] 31093- 5748 Feb, [place] [id number] [place] [address] 33241- 3967 Feb, [place] [id number] [place] [address] 57409- 4556 Feb, Depression, unspecified depression type F32.9 ; Hypothyroidism, unspecified type E03.9 ; 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, 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 and Anxiety F41.9 [place] [address] [id number] [place] [address] 32420- 5341 Feb, Other chronic pain G89.29 [facility] [address] [id number] [place] [address] [id number] Jan, Other chronic pain G89.29 [place] [id number] [place] [address] 11307- 5080 Jan, Bladder spasms N32.89 [facility] [id number] [place] [address] 24954- 4894 Jan, Bladder spasms N32.89 [place] [id number] [place] [address] 93074- 2128 Dec, Bladder spasms N32.89 [place] [id number] [place] [address] 20430- 9514 Dec, Depression, unspecified depression type F32.9 [facility] [id number] [place] [address] 30024- 2379 Dec, [facility] [address] [place] [id number] Dec, Hypothyroidism, unspecified type E03.9 ; Depression, unspecified depression type F32.9 ; Other chronic pain G89.29 ; Urinary retention R33.9 and Atrial fibrillation, unspecified type I48.91 [facility] [id number] [id number] Dec, [facility] [id number] [place] [address] [id number] Dec, Other chronic pain G89.29 [facility] [id number] [place] [address] [id number] Nov, [facility] [id number] [place] [address] [id number] Nov, Other chronic pain G89.29 [facility] [address] [place] [address] 83766- 4286 Nov, Other chronic pain G89.29 [facility] [address] [place] [address] 09930- 3578 Nov, [facility] [id number] [place] [address] 46950- 4033 Nov, [facility] [address] [place] [address] 19767- 1961 Nov, Other chronic pain G89.29 [facility] [address] [place] [address] 88394- 7316 Nov, Other chronic pain G89.29 [facility] [address] [place] [address] 68127- 6686 Oct, [facility] [address] [place] [address] 60564 2546 Oct, Other chronic pain G89.29 [facility] [address] [place] [place] [id number] Oct, Weakness R53.1 ; Macrocytic anemia D53.9 ; Discolored skin L81.9 ; Other chronic pain G89.29 ; Dysuria R30.0 and Hayes catheter in place Z92.89 [facility] [address] [place] [address] 56529- 6275 Oct, Other chronic pain G89.29 [facility] [id number] [id number] Sep, [facility] [id number] [place] [address] 41042- 8365 Sep, [facility] [id number] [place] [address] 56094- 4118 Sep, [facility] [id number] [place] [address] [id number] Sep, [facility] [id number] [place] [address] [id number] Sep, Other chronic pain G89.29 [facility] [id number] [place] [address] 48795- 3237 Sep, [facility] [id number] [place] [address] [id number] Sep, Other chronic pain G89.29 [facility] [address] [place] [id number] Sep, Chronic urinary tract infection N39.0 ; Other chronic pain G89.29 ; Chronic kidney disease (CKD), unspecified stage N18.9 ; 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, 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 ; Hypothyroidism, unspecified type E03.9 ; Depression, unspecified depression type F32.9 ; Cataract H26.9 ; Obstructive sleep apnea syndrome G47.33 ; Atrial fibrillation, unspecified type I48.91 ; History of femur fracture Z87.81 and [address] catheter in place Z92.89 [facility] [address], [place] [address] 3255 Sep, [facility] [id number] [place] [address] 77121- 1050 Aug, [facility] [address], [place] [address]- 9875 Aug, Other chronic pain G89.29 [facility] [address], [place] [address]- 7032 Aug, [facility] [address], [place] [address]- 3874 Aug, [facility] [place] [facility] [id number] [place] [address] [id number] Aug, [facility] [address] [place] [address] 12843- 6175 Aug, [facility] [address] [place] [address] 40975- 2486 Aug, 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, unspecified usp insulin use status E11.9 [facility] [address] [place] [address] 20086- 6228 Aug, Other chronic pain G89.29 [facility] [address], [place] [address] 3441 18 Aug, 2017 [facility] [id number] [place] [address] 76693- 6604 16 Aug, 2017 [facility] [id number] [place] [address] 45102- 6025 22 Jul, 2017 Other chronic pain G89.29 [facility] [address], [place] [address]- 6939 19 Jul, 2017 [facility] [address], [place] [address]- 9422 19 Jul, 2017 Dark brown urine R82.99 [facility] [address], [place] [address]- 8534 19 Jul, 2017 Dark brown urine R82.99 [facility] [id number] [place] [address] 24246- 0732 Jul, [place] [id number] [place] [address] 04535- 9538 Jun, Other chronic pain G89.29 [place] [address] [place] [address] [id number] [place] [address] 48755- 9834 Jun, 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, unspecified usp insulin use status E11.9 [place] [address] [id number] [place] [address] 34463- 8342 May, Candidiasis, intertrigo B37.2 [place] [address] [id number] [place] [address] 92208- 7883 May, Other chronic pain G89.29 [place] [id number] [place] [address] 24135- 7559 May, [place] [id number] [place] [address] 33798- 4975 May, [place] [id number] [place] [address] 50785- 7508 May, Candidiasis, intertrigo B37.2 [place] [address] [id number] [place] [address] 82289- 7533 May, Atrial fibrillation, unspecified type I48.91 [place] [address] [id number] [place] [address] 07065- 0221 May, Hypothyroidism, unspecified type E03.9 and Decreased renal function N28.9 [place] [id number] [place] [address] 45862- 0139 May, 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, unspecified usp insulin use status E11.9 [place] [id number] [place] [address] 17440- 3090 May, Dental examination Z01.20 [place] [id number] [place] [address] 74015- 9731 May, Chronic kidney disease (CKD), unspecified stage N18.9 ; 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, unspecified usp insulin use status E11.9 ; Hypothyroidism, unspecified type E03.9 ; Depression, unspecified depression type F32.9 ; Anemia, unspecified type D64.9 and Ulcer L98.499 [place] [address], [place] [address]- 6968 May, [facility] [id number] [place] [address] 30128- 2658 Apr, Other chronic pain G89.29 [place] [id number] [place] [address] 68596- 8631 Apr, Other chronic pain G89.29 [place] [id number] [place] [address] 01951- 6079 March, [place] [id number] [place] [address] 00534- 7167 March, [place] [id number] [place] [address] 34598- 6251 March, [facility] [id number] [place] [address] 99212- 8588 March, Other chronic pain G89.29 [place] [id number] [place] [address] 43892- 3753 March, [place] [address], [place] [address]- 6687 Feb, [facility] [id number] [place] [address] 15024- 0129 Feb, 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, unspecified usp insulin use status E11.9 ; Candidiasis, intertrigo B37.2 ; Decubitus ulcer of left buttock, unstageable L89.320 and Pressure ulcer of contiguous region involving right buttock and hip, unspecified ulcer stage L89.40 [facility] [address], [place] [address]- 7852 Feb, Atrial fibrillation, unspecified type I48.91 [facility] [address] [facility] [id number] [address]- 4859 Feb, [facility] [address] [place] [address] 26502- 5496 Feb, [facility] [address], [place] [address]- 0546 Feb, Other chronic pain G89.29 [facility] [address] [place] [address] 49768- 3988 Jan, Other chronic pain G89.29 [facility] [address] [place] [address] 83901- 7656 Dec, [facility] [address] [place] [address] 95103- 2404 Dec, Lethargy R53.83 [facility] [address] [place] [address] 49494- 6995 17 Dec, 2016 [facility] [address], [place] [address]- 9200 Dec, Other chronic pain G89.29 [facility] [address], [place] [address]- 6421 Nov, [facility] [address], [place] [address]- 6205 Nov, [facility] [address], [place] [address]- 5319 Nov, Other chronic pain G89.29 [facility] [address], [place] [address]- 9440 Nov, [facility] [address], [place] [address]- 8744 Nov, [facility] [address], [place] [address]- 6088 Nov, [facility] [id number] [place] [address] 05812- 1439 Oct, Cough R05 [facility] [id number] [place] [address] 71337- 1498 Oct, Urinary tract infection, site not specified N39.0 [facility] [id number] [place] [address] 56053- 8136 16 Oct, 2016 Other chronic pain G89.29 [place] [id number] [place] [address] 08375- 0804 Oct, 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, 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 ; Other chronic [...] J30.89 ; Nausea R11.0 and Candidiasis B37.9 [place] [id number] [place] [address] 94815- 1460 Oct, [place] [id number] [place] [address] 61337- 1767 Oct, [place] [id number] [place] [address] 75675- 9944 Oct, [place] [id number] [place] [address] 57594- 6004 Oct, Chronic kidney disease (CKD), unspecified stage N18.9 [place] [id number] [place] [address] 44021- 7459 Oct, [place] [id number] [place] [address] 28396- 2181 Sep, Other chronic pain G89.29 [place] [address], [place] [address] 1965 Sep, Chronic kidney disease (CKD), unspecified stage N18.9 and Senile cataract of right eye, unspecified age-related cataract type H25.9 [facility] [address], [place] [address]- 0641 Sep, [facility] [id number] [address]- 2007 Sep, [facility] [id number], [place] [address]- 8666 Sep, [facility] [id number] [place] [address] 64293- 0090 Sep, [facility] [address], [place] [address]- 1147 Sep, [facility] [id number] [place] [address] 62191- 5679 Aug, [facility] [address], [place] [address]- 0062 Aug, [facility] [address], [place] [address]- 1012 Aug, [facility] [address], [place] [address]- 3718 Aug, Encounter to establish care Z76.89 ; Other chronic pain G89.29 ; Chronic kidney disease (CKD), unspecified stage N18.9 ; Obstructive sleep apnea syndrome G47.33 ; 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, 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 ; Urinary incontinence, unspecified type R32 ; Depression, unspecified depression type F32.9 ; History of femur fracture Z87.81 ; History of fractured kneecap Z87.81 ; Hypothyroidism , unspecified type E03.9 ; Cataract H26.9 and Gastroesophageal reflux disease without esophagitis K21.9 [facility] [address], [place] [address]- 2515 14 Aug, 2016 [place] [address], [place] [address]- 2912 Aug, Urinary incontinence, unspecified type R32 [place] [address] [place] [address] 35891- 8725 Aug, [place] [address] [place] [address] 90750- 3250 Jul, [address] [id number] Jul, 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, 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 ; Chronic kidney [...] E03.9 and Constipation, unspecified constipation type K59.00 [place] [address] [place] [address] 46800- 5089 19 Jul, 2016 [place] [address] [place] [address] 56011- 0603 16 Jul, [address] [id number] Jul, Anemia, unspecified type D64.9 ; Acute renal failure, unspecified acute renal failure type N17.9 ; Other chronic pain G89.29 ; Obstructive sleep apnea syndrome G47.33 and 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, 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 [place] [id number] [place] [address] 00186- 7314 13 Jul, 2016 [place] [id number] [place] [address] 83342- 9603 Jul, [place] [id number] [place] [address]- 8937 Jul, [facility] [address] [id number] [place] [address]- 9115 Jul, [facility] [address] [facility] [id number] [place] [address]- 2543 Jul, [facility] [address] [place] [id number] Jun, Other chronic pain G89.29 ; Hayes catheter in place Z92.89 ; Chronic kidney disease (CKD), unspecified stage N18.9 and Blisters of multiple sites R23.8 [facility] [address] [id number] [place] [address]- 9466 Jun, [facility] [address] [facility] [id number] [place] [address]- 2652 Jun, [facility] [id number] [place] [address]- 4973 Jun, [facility] [address] [id number] [place] [address]- 4798 Jun, [facility] [address] [facility] [id number] [place] [address]- 6045 Jun, [facility] [address] [facility] [id number] [place] [address]- 1615 Jun, [facility] [address] [facility] [id number] [place] [address]- 2838 Jun, [facility] [address] [facility] [id number] [place] [address] 2548 Jun, [facility] [address] [facility] [id number] [place] [address]- 2545 Jun, [facility] [address] [facility] [id number] [place] [address] Jun, [facility] [address] [facility] [id number] [place] [address] Jun, [facility] [address] [facility] [id number], [place] [address] May, [facility] [address] [facility] [id number][place] [address] May, [facility] [address] [facility] [id number][place] [address] May, Other chronic pain G89.29 [facility] [place] [address] [place], [place] [id number] May, Encounter to establish care Z76.89 ; 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, 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 ; Hypothyroidism, unspecified [...] SOCIAL HISTORY Never Assessed REASON FOR VISIT refilled Percocet PLAN OF CARE VITAL SIGNS MEDICATIONS Medication Instructions Dosage Frequency Start Date End Date Duration Status Oxycodone-Acetaminophen 10-325 MG Orally 4 times a day 1 tablet 6h May, 28 days Active RESULTS No Results PROCEDURES [...] Acute Kidney Injury 08/05/16 Hospitalization History UTI, Sepsis--[facility] Hospitalization History Chest pain/SOB/A-fib 02/2017 Hospitalization History Chest pain-[facility] 04/13/17 Hospitalization History UTI, respiratory failure, altered mental status-[facility] 09/13/17
--- OUTSIDE RECORDS SUMMARY | 2018-09-17 19:23 | XMS REPORT ---
Author Author LATONYA KIM [facility] Address [address] [place] [address] Care Team Providers Care Medicaid Nurse Name Role Phone LATONYA KIM Unavailable PROBLEMS Type Condition ICD9-CM Code UHX65-GE Code Onset Dates Condition Status SNOMED Code Problem Decreased renal function N28.9 Active 04428805 Problem Bladder spasms N32.89 Active 233481251 Problem Chronic fatigue R53.82 Active 31596162 Problem Intractable migraine without aura and with status migrainosus G43.011 Active 508488333 Problem 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, unspecified oysterman insulin use status E11.9 Active 12896871 Problem Nephrolithiasis N20.0 Active 75206167 Problem Chronic kidney disease (CKD), unspecified stage N18.9 Active 021243405 Problem Urinary incontinence, unspecified type R32 Active 761578494 Problem Primary insomnia F51.01 Active 9900259 Problem Anxiety F41.9 Active 49012184 Problem Venous stasis dermatitis of both lower extremities I87.2 Active 68105973 Problem Stage 4 chronic kidney disease N18.4 Active 252967818 Problem Cataract H26.9 Active 103533164 Problem Obstructive sleep apnea syndrome G47.33 Active 97819142 Problem Depression, unspecified depression type F32.9 Active 68605576 Problem Hypothyroidism, unspecified type E03.9 Active 09228951 Problem Perennial allergic rhinitis, unspecified allergic rhinitis trigger J30.89 Active 075691765 Problem Restless leg syndrome G25.81 Active 33877358 Problem Closed fracture of left patella, unspecified fracture morphology, sequela S82.002S Active 71599559 Problem Gastroesophageal reflux disease without esophagitis K21.9 Active 001247677 Problem Atrial fibrillation, unspecified type I48.91 Active 78759027 Problem Morbid obesity due to excess calories E66.01 Active 157923039 Problem Other chronic pain G89.29 Active 73665793 Problem Ulcer L98.499 Active 284812582 ALLERGIES No Information ENCOUNTERS Encounter Location Date Diagnosis [facility] [address] [place] [id number] Jun, Intractable migraine without aura and with status migrainosus G43.011 and Left hip pain M25.552 [place] [address] [place] [address] 88170- 8875 Jun, Other chronic pain G89.29 ; Arthralgia, unspecified joint M25.50 and Primary insomnia F51.01 [place] [address] [place] [id number] [place] [address] 85963- 7560 Jun, [place] [address] [address] May, Other chronic pain G89.29 ; Arthralgia, unspecified joint M25.50 and Primary insomnia F51.01 [place] [address] [place] [id number] [place] [address] 51991- 7946 May, Urinary tract infection without hematuria, site unspecified N39.0 [place] [address] [place] [id number] [place] [address] 34386- 0432 May, Bladder spasms N32.89 [place] [address] [place] [id number] [place] [address] 17641- 7648 May, Primary insomnia F51.01 [place] [address] [place] [id number] [place] [address] 43032- 8739 May, [place] [address] [place] [id number] [place] [address] 32231- 8428 May, Primary insomnia F51.01 and Arthralgia, unspecified joint M25.50 [place] [address] [place] [id number] [place] [address] 42487- 6447 May, Other chronic pain G89.29 [facility] [address] [id number] May, Nephrolithiasis N20.0 ; Cataract H26.9 and Macrocytic anemia D53.9 [place] [address] [place] [id number] [address] May, [facility] [address] [address] Apr, [facility] [address], [place] [address] 0[address] Apr, [place] [address] [place] [address]6555- 1971 Apr, Primary insomnia F51.01 [facility] [address] [place] [address] [id number], [place] [address] 0365 Apr, [place] [address], [place] [address] 39[address] March, Other chronic pain G89.29 [facility] [address] [place] [id number] March, Arthralgia, unspecified joint M25.50 ; Abnormal urine sediment R82.90 ; Venous stasis dermatitis of both lower extremities I87.2 ; Stage 4 chronic kidney disease N18.4 and Cataract of right eye, unspecified cataract type H26.9 [place] [address] [place] [address] [id number], [place] [address] 6[address] March, Primary insomnia F51.01 [facility] [facility] [address] [place] [id number] March, Cervicalgia M54.2 ; Acute pain of right shoulder M25.511 and Pain of left femur M89.8X5 [facility] [address] [facility] [id number] [address] March, [place] [address] [place] [address] [id number] [address] 8508 March, Other chronic pain G89.29 [place] [address] [place] [address] [id number], [place] [address] 3449 Feb, [facility] [address] [place] [id number] Feb, Leg swelling M79.89 [facility] [address] [place] [address] 75478- 6253 Feb, Primary insomnia F51.01 [facility] [facility] [address] [place] [id number] Feb, Fever in other diseases R50.81 and Intermittent left lower quadrant abdominal pain R10.32 [place] [address] [place] [id number] [place] [address] 46599- 8224 Feb, [place] [address] [place] [id number] [place] [address] 28609- 7549 Feb, [place] [address] [place] [id number] [place] [address] 72581- 7968 Feb, Depression, unspecified depression type F32.9 ; Hypothyroidism, unspecified type E03.9 ; 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, unspecified oysterman insulin use status E11.9 and Anxiety F41.9 [place] [address] [place] [id number] [place] [address] 86482- 8711 Feb, Other chronic pain G89.29 [facility] [address] [place] [address] [id number] [place] [address] [id number] Jan, Other chronic pain G89.29 [place] [address] [place] [id number] [place] [address] 94920- 7717 Jan, Bladder spasms N32.89 [facility] [address] [place] [id number] [place] [address] 31830- 3666 Jan, Bladder spasms N32.89 [place] [address] [place] [address] [id number] [place] [address] 85584- 8861 Dec, Bladder spasms N32.89 [place] [address] [place] [address] [id number] [place] [address] 34985- 0613 Dec, Depression, unspecified depression type F32.9 [facility] [address] [place] [id number] [place] [address] 55807- 6967 Dec, [facility] [address] [id number] Dec, Hypothyroidism, unspecified type E03.9 ; Depression, unspecified depression type F32.9 ; Other chronic pain G89.29 ; Urinary retention R33.9 and Atrial fibrillation, unspecified type I48.91 [facility] [id number] [id number] Dec, [facility] [id number] [place] [address] [id number] Dec, Other chronic pain G89.29 [facility] [id number] [place] [address] [id number] Nov, [facility] [address] [place] [id number] [place] [address] [id number] Nov, Other chronic pain G89.29 [facility] [address] [place] [address] 03717- 4906 Nov, Other chronic pain G89.29 [facility] [address] [place] [address] 71083- 9370 Nov, [facility] [address] [id number] [place] [address] 02230- 7619 Nov, [facility] [address] [place] [address] 83665- 2334 Nov, Other chronic pain G89.29 [facility] [address] [place] [address] 14677- 0456 Nov, Other chronic pain G89.29 [facility] [address] [place] [address] 27262- 4333 Oct, [facility] [address] [place] [address] 34549 2546 Oct, Other chronic pain G89.29 [facility] [address] [id number] Oct, Weakness R53.1 ; Macrocytic anemia D53.9 ; Discolored skin L81.9 ; Other chronic pain G89.29 ; Dysuria R30.0 and Hayes catheter in place Z92.89 [facility] [address] [place] [address] 17953- 2518 Oct, Other chronic pain G89.29 [facility] [id number] [id number] Sep, [facility] [address] [place] [id number] [place] [address] 10116- 7875 Sep, [facility] [address] [place] [address] 42333- 3465 Sep, [facility] [id number] [place] [address] [id number] Sep, [facility] [id number] [place] [address] [id number] Sep, Other chronic pain G89.29 [facility] [address] [place] [address] [id number] [place] [address] 60998- 6988 Sep, [facility] [id number] [place] [address] [id number] Sep, Other chronic pain G89.29 [facility] [address] [place] [id number] Sep, Chronic urinary tract infection N39.0 ; Other chronic pain G89.29 ; Chronic kidney disease (CKD), unspecified stage N18.9 ; 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, unspecified oysterman insulin use status E11.9 ; Hypothyroidism, unspecified type E03.9 ; Depression, unspecified depression type F32.9 ; Cataract H26.9 ; Obstructive sleep apnea syndrome G47.33 ; Atrial fibrillation, unspecified type I48.91 ; History of femur fracture Z87.81 and Hayes catheter in place Z92.89 [facility] [address], [place] [address] 6350 Sep, [facility] [address] [place] [address] 96058- 4248 Aug, [facility] [address], [place] [address]- 4260 Aug, Other chronic pain G89.29 [facility] [address], [place] [address]- 3869 Aug, [facility] [address], [place] [address]- 1153 Aug, [facility] [place] [facility] [id number] [place] [id number] Aug, [facility] [address] [place] [address] 93647- 6324 Aug, [facility] [address] [place] [address] 03729- 5566 Aug, 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, unspecified penitentiary insulin use status E11.9 [facility] [address] [place] [address] 05975- 0283 Aug, Other chronic pain G89.29 [facility] [address], [place] [address]- 4276 18 Aug, 2017 [facility] [address] [place] [address] 48792- 1029 16 Aug, 2017 [facility] [address] [place] [address] 13939- 4045 22 Jul, 2017 Other chronic pain G89.29 [facility] [address], [place] [address]- 7730 19 Jul, 2017 [facility] [address], [place] [address]- 6494 19 Jul, 2017 Dark brown urine R82.99 [facility] [address], [place] [address]- 5929 19 Jul, 2017 Dark brown urine R82.99 [facility] [address] [place] [address] 27822- 2396 Jul, [place] [address] [place] [address] 64468- 3643 Jun, Other chronic pain G89.29 [place] [address] [place] [id number] [place] [address] 74060- 1750 Jun, Type 2 diabetes mellitus without complication, unspecified penitentiary insulin use status E11.9 [place] [address] [place] [id number] [place] [address] 33428- 3774 May, Candidiasis, intertrigo B37.2 [place] [address] [place] [id number] [place] [address] 91834- 3222 May, Other chronic pain G89.29 [place] [address] [place] [id number] [place] [address] 32620- 1757 May, [place] [address] [place] [id number] [place] [address] 79413- 7430 May, [place] [address] [place] [id number] [place] [address] 71280- 3160 May, Candidiasis, intertrigo B37.2 [place] [address] [place] [id number] [place] [address] 19963- 9600 May, Atrial fibrillation, unspecified type I48.91 [place] [address] [place] [id number] [place] [address] 50945- 6836 May, Hypothyroidism, unspecified type E03.9 and Decreased renal function N28.9 [place] [address] [place] [id number] [place] [address] 80467- 6689 May, Type 2 diabetes mellitus without complication, unspecified penitentiary insulin use status E11.9 [place] [address] [place] [id number] [place] [address] 67091- 7765 May, Dental examination Z01.20 [place] [address] [place] [address] [id number] [place] [address] 55931- 2042 May, Chronic kidney disease (CKD), unspecified stage N18.9 ; Type 2 diabetes mellitus without complication, unspecified penitentiary insulin use status E11.9 ; Hypothyroidism, unspecified type E03.9 ; Depression, unspecified depression type F32.9 ; Anemia, unspecified type D64.9 and Ulcer L98.499 [place] [address], [place] [address]- 7446 May, [facility] [address] [place] [id number] [place] [address] 11675- 5156 Apr, Other chronic pain G89.29 [place] [address] [place] [address] [id number] [place] [address] 20227- 6833 Apr, Other chronic pain G89.29 [place] [address] [place] [id number] [place] [address] 31029- 1646 March, [place] [address] [place] [id number] [place] [address] 93996- 7562 March, [place] [address] [place] [id number] [place] [address] 11532- 7895 March, [facility] [address] [place] [id number] [place] [address] 26742- 6523 March, Other chronic pain G89.29 [place] [address] [place] [address] [id number] [place] [address] 98122- 8606 March, [place] [address], [place] [address]- 3426 Feb, [facility] [address] [place] [id number] [place] [address] 99544- 3424 Feb, Type 2 diabetes mellitus without complication, unspecified penitentiary insulin use status E11.9 ; Candidiasis, intertrigo B37.2 ; Decubitus ulcer of left buttock, unstageable L89.320 and Pressure ulcer of contiguous region involving right buttock and hip, unspecified ulcer stage L89.40 [facility] [address], [place] [address]- 8682 Feb, Atrial fibrillation, unspecified type I48.91 [facility] [address] [facility] [id number] [address]- 1055 Feb, [facility] [address] [place] [address] 44101- 2486 Feb, [facility] [address], [place] [address]- 7216 Feb, Other chronic pain G89.29 [facility] [address] [place] [address] 27315- 5798 Jan, Other chronic pain G89.29 [facility] [address] [place] [address] 86205- 1236 Dec, [facility] [address] [place] [address] 11025- 1098 Dec, Lethargy R53.83 [facility] [address] [place] [address] 61496- 3127 17 Dec, 2016 [facility] [address], [place] [address]- 5979 Dec, Other chronic pain G89.29 [facility] [address], [place] [address]- 1280 Nov, [facility] [address], [place] [address]- 0765 Nov, [facility] [address], [place] [address]- 5987 Nov, Other chronic pain G89.29 [facility] [address], [place] [address]- 6875 Nov, [facility] [address] [address]- 7[address] Nov, [facility] [address], [place] [address]- 4666 Nov, [facility] [id number] [place] [address] 12386- 7298 Oct, Cough R05 [facility] [id number] [place] [address] 12629- 9397 Oct, Urinary tract infection, site not specified N39.0 [facility] [id number] [place] [address] 29305- 8392 16 Oct, 2016 Other chronic pain G89.29 [place] [address] [place] [address] [id number] [place] [address] 04768- 4013 Oct, Type 2 diabetes mellitus without complication, unspecified oysterman insulin use status E11.9 ; Other chronic [...] J30.89 ; Nausea R11.0 and Candidiasis B37.9 [place] [address] [place] [id number] [place] [address] 54978- 9613 Oct, [place] [address] [place] [address] [id number] [place] [address] 55006- 4728 Oct, [place] [address] [place] [address] [id number] [place] [address] 17790- 6911 Oct, [place] [address] [place] [address] [id number] [place] [address] 55726- 9167 Oct, Chronic kidney disease (CKD), unspecified stage N18.9 [place] [address] [place] [id number] [place] [address] 43545- 1070 Oct, [place] [address] [place] [id number] [place] [address] 81061- 4603 Sep, Other chronic pain G89.29 [place] [address], [place] [address]- 9278 Sep, Chronic kidney disease (CKD), unspecified stage N18.9 and Senile cataract of right eye, unspecified age-related cataract type H25.9 [facility] [address], [place] [address]- 3391 Sep, [facility] [address] [address] [id number] [address]- 4884 Sep, [facility] [id number] [address]- 1372 Sep, [facility] [address] [id number] [place] [address] 46863- 5848 Sep, [facility] [address], [place] [address]- 5128 Sep, [facility] [address] [id number] [place] [address] 38710- 2092 Aug, [facility] [address], [place] [address]- 3285 Aug, [facility] [address], [place] [address]- 8298 Aug, [facility] [address], [place] [address]- 1166 Aug, Encounter to establish care Z76.89 ; Other chronic pain G89.29 ; Chronic kidney disease (CKD), unspecified stage N18.9 ; Obstructive sleep apnea syndrome G47.33 ; Type 2 diabetes mellitus without complication, unspecified oysterman insulin use status E11.9 ; Urinary incontinence, unspecified type R32 ; Depression, unspecified depression type F32.9 ; History of femur fracture Z87.81 ; History of fractured kneecap Z87.81 ; Hypothyroidism , unspecified type E03.9 ; Cataract H26.9 and Gastroesophageal reflux disease without esophagitis K21.9 [facility] [address], [place] [address]- 9912 14 Aug, 2016 [place] [address], [place] [address]- 5186 Aug, Urinary incontinence, unspecified type R32 [place] [address] [place] [address] 94637- 4214 Aug, [place] [address] [place] [address] 88158- 7609 Jul, [address] [id number] Jul, Type 2 diabetes mellitus without complication, unspecified oysterman insulin use status E11.9 ; Chronic kidney [...] E03.9 and Constipation, unspecified constipation type K59.00 [place] [address] [place] [address] 37223- 1031 19 Jul, 2016 [place] [address] [place] [address] 43747- 8973 16 Jul, [address] [id number] Jul, Anemia, unspecified type D64.9 ; Acute renal failure, unspecified acute renal failure type N17.9 ; Other chronic pain G89.29 ; Obstructive sleep apnea syndrome G47.33 and Type 2 diabetes mellitus without complication, unspecified oysterman insulin use status E11.9 [place] [address] [place] [address] 54333- 2331 13 Jul, 2016 [place] [address] [place] [address] 18716- 6995 Jul, [place] [address] [place] [id number] [place] [address]- 4184 Jul, [facility] [address] [id number] [place] [address]- 3427 Jul, [facility] [address] [facility] [id number] [place] [address]- 254 Jul, [facility] [address] [id number] Jun, Other chronic pain G89.29 ; Hayes catheter in place Z92.89 ; Chronic kidney disease (CKD), unspecified stage N18.9 and Blisters of multiple sites R23.8 [facility] [address] [id number] [place] [address]- 6459 Jun, [facility] [address] [facility] [id number] [place] [address]- 5623 Jun, [facility] [id number] [place] [address]- 8285 Jun, [facility] [address] [id number] [place] [address] Jun, [facility] [address] [facility] [id number] [place] [address] Jun, [facility] [address] [facility] [id number] [place] [address] Jun, [facility] [address] [facility] [id number] [place] [address] Jun, [facility] [address] [facility] [id number] [place] [address] Jun, [facility] [address] [facility] [id number] [place] [address] Jun, [facility] [address] [facility] [id number] [place] [address] Jun, [facility] [address] [facility] [id number] [place] [address] Jun, [facility] [address] [facility] [id number] [address] May, [facility] [address] [facility] [id number][place] [address] May, [facility] [address] [facility] [id number] [address] May, Other chronic pain G89.29 [facility] [address] [place] [place], [place] [id number] May, Encounter to establish care Z76.89 ; Type 2 diabetes mellitus without complication, unspecified oysterman insulin use status E11.9 ; Hypothyroidism, unspecified [...] Frequency Start Date End Date Duration Status Lyrica 75 MG Orally twice a day 1 capsule 12h March, 30 days Active Lorazepam 0.5 MG Orally Once a day 1 tablet 24h Feb, 28 days Active RESULTS No [...] Acute Kidney Injury 08/05/16 Hospitalization History UTI, Sepsis--[facility] Hospitalization History Chest pain/SOB/A-[facility] 02/2017 Hospitalization History Chest pain-[facility] 04/13/17 Hospitalization History UTI, respiratory failure, altered mental status-[facility] 09/13/17
--- OUTSIDE RECORDS SUMMARY | 2018-09-17 19:24 | XMS REPORT ---
Author Author AMANDA SANDY [facility] Address [address] [place] [address] Care Team Providers Care Dulite Machine Bluer Name Role Phone SANDY PATEL Unavailable PROBLEMS Type Condition ICD9-CM Code JJC45-BI Code Onset Dates Condition Status SNOMED Code Problem Decreased renal function N28.9 Active 83578356 Problem Bladder spasms N32.89 Active 322328219 Problem Chronic fatigue R53.82 Active 16958119 Problem Intractable migraine without aura and with status migrainosus G43.011 Active 635257626 Problem Type 2 diabetes mellitus without complication, unspecified termite treater insulin use status E11.9 Active 68607415 Problem Nephrolithiasis N20.0 Active 36978187 Problem Chronic kidney disease (CKD), unspecified stage N18.9 Active 006009452 Problem Urinary incontinence, unspecified type R32 Active 885024677 Problem Primary insomnia F51.01 Active 7320335 Problem Anxiety F41.9 Active 40237406 Problem Venous stasis dermatitis of both lower extremities I87.2 Active 04859792 Problem Stage 4 chronic kidney disease N18.4 Active 517967261 Problem Cataract H26.9 Active 106682060 Problem Obstructive sleep apnea syndrome G47.33 Active 80196791 Problem Depression, unspecified depression type F32.9 Active 60301188 Problem Hypothyroidism, unspecified type E03.9 Active 93176536 Problem Perennial allergic rhinitis, unspecified allergic rhinitis trigger J30.89 Active 235686125 Problem Restless leg syndrome G25.81 Active 68742685 Problem Closed fracture of left patella, unspecified fracture morphology, sequela S82.002S Active 46831976 Problem Gastroesophageal reflux disease without esophagitis K21.9 Active 135846393 Problem Atrial fibrillation, unspecified type I48.91 Active 53073337 Problem Morbid obesity due to excess calories E66.01 Active 014877471 Problem Other chronic pain G89.29 Active 07145393 Problem Ulcer L98.499 Active 074649445 ALLERGIES No Information ENCOUNTERS Encounter Location Date Diagnosis [facility] [address] [place] [id number] Jun, Intractable migraine without aura and with status migrainosus G43.011 and Left hip pain M25.552 [place] [address] [place] [address] 10873- 1509 Jun, Other chronic pain G89.29 ; Arthralgia, unspecified joint M25.50 and Primary insomnia F51.01 [place] [address] [id number] [place] [address] 32573- 6057 Jun, [facility] [facility] [address] [id number] [place] [address] 31761- 7628 May, Other chronic pain G89.29 ; Arthralgia, unspecified joint M25.50 and Primary insomnia F51.01 [place] [address] [id number] [place] [address] 81360- 7397 May, Urinary tract infection without hematuria, site unspecified N39.0 [place] [address] [id number] [place] [address] 53771- 8418 May, Bladder spasms N32.89 [facility] [address] [id number] [place] [address] 78031- 9892 May, Primary insomnia F51.01 [place] [address] [id number] [place] [address] 43961- 3632 May, [place] [address] [id number] [place] [address] 44355- 8779 May, Primary insomnia F51.01 and Arthralgia, unspecified joint M25.50 [place] [address] [id number] [place] [address] 48577- 2412 May, Other chronic pain G89.29 [facility] [address] [id number] May, Nephrolithiasis N20.0 ; Cataract H26.9 and Macrocytic anemia D53.9 [place] [id number] [address] 5758 May, [facility] [id number] [address] 9022 Apr, [facility] [id number], [place] [address] 2327 Apr, [facility] [address], [place] [address] 4357 Apr, Primary insomnia F51.01 [facility] [id number], [place] [address] 0612 Apr, [facility] [address], [place] [address] 8653 March, Other chronic pain G89.29 [facility] [facility] [address] [place] [id number] March, Arthralgia, unspecified joint M25.50 ; Abnormal urine sediment R82.90 ; Venous stasis dermatitis of both lower extremities I87.2 ; Stage 4 chronic kidney disease N18.4 and Cataract of right eye, unspecified cataract type H26.9 [place] [id number], [place] [address] 9859 March, Primary insomnia F51.01 [facility] [address] [place] [id number] March, Cervicalgia M54.2 ; Acute pain of right shoulder M25.511 and Pain of left femur M89.8X5 [facility] [address] [facility] [id number] [address] 395[address] March, [facility] [id number], [place] [address] 4639 March, Other chronic pain G89.29 [facility] [id number] [address] 6991 Feb, [facility] [employer] [facility] [address] [place] [id number] Feb, Leg swelling M79.89 [facility] [address] [place] [address] 92833- 2837 Feb, Primary insomnia F51.01 [facility] [address] [place] [id number] Feb, Fever in other diseases R50.81 and Intermittent left lower quadrant abdominal pain R10.32 [place] [address] [id number] [place] [address] 03499- 3336 Feb, [place] [address] [address] [id number] [place] [address] 94900- 8141 Feb, [place] [address] [id number] [place] [address] 07927- 0033 Feb, Depression, unspecified depression type F32.9 ; Hypothyroidism, unspecified type E03.9 ; Type 2 diabetes mellitus without complication, unspecified termite treater insulin use status E11.9 and Anxiety F41.9 [place] [address] [id number] [place] [address] 33129- 9754 Feb, Other chronic pain G89.29 [facility] [address] [id number] [place] [id number] Jan, Other chronic pain G89.29 [facility] [id number] [place] [address] 34050- 1488 Jan, Bladder spasms N32.89 [place] [address] [address] [id number] [place] [address] 64876- 8053 Jan, Bladder spasms N32.89 [place] [address] [id number] [place] [address] 82105- 4464 Dec, Bladder spasms N32.89 [facility] [address] [id number] [place] [address] 58944- 2647 Dec, Depression, unspecified depression type F32.9 [place] [id number] [place] [address] 18334- 7879 Dec, [facility] [address] [id number] Dec, 2017 Hypothyroidism, unspecified type E03.9 ; Depression, unspecified depression type F32.9 ; Other chronic pain G89.29 ; Urinary retention R33.9 and Atrial fibrillation, unspecified type I48.91 [facility] [address] [id number] [address] Dec, [facility] [id number] [place] [address] [id number] Dec, Other chronic pain G89.29 [facility] [id number] [place] [address] [id number] Nov, [facility] [id number] [place] [address] [id number] Nov, Other chronic pain G89.29 [facility] [id number] [place] [address] 44791- 4936 Nov, Other chronic pain G89.29 [facility] [address] [place] [address] 61736- 5276 Nov, [facility] [id number] [place] [address] 94529- 2943 Nov, [facility] [address] [place] [address] 94812- 3227 Nov, Other chronic pain G89.29 [facility] [id number] [place] [address] 88816- 3876 Nov, Other chronic pain G89.29 [facility] [address] [place] [address] 12232- 8323 Oct, [facility] [id number] [place] [address] 951993- 7850 Oct, Other chronic pain G89.29 [facility] [address] [id number] Oct, Weakness R53.1 ; Macrocytic anemia D53.9 ; Discolored skin L81.9 ; Other chronic pain G89.29 ; Dysuria R30.0 and Hayes catheter in place Z92.89 [facility] [address] [place] [address] 98516- 7084 07 Oct, 2017 Other chronic pain G89.29 [facility] [address] [id number] [id number] Sep, [facility] [id number] [place] [address] 69045- 5487 Sep, [facility] [id number] [place] [address] 04935- 4817 Sep, [facility] [id number] [place] [address] [id number] Sep, [facility] [id number] [place] [address] [id number] Sep, Other chronic pain G89.29 [facility] [id number] [place] [address] 10165- 4446 Sep, [facility] [id number] [place] [address] [id number] Sep, Other chronic pain G89.29 [facility] [address] [facility] [place] [id number] Sep, Chronic urinary tract infection N39.0 ; [...] Z87.81 and Hayes catheter in place Z92.89 [facility] [address], [place] [address]- 9645 Sep, [facility] [address] [place] [address] 00432- 4278 Aug, [facility] [address] [facility] [id number], [place] [address]- 4312 Aug, Other chronic pain G89.29 [facility] [address] [facility] [id number], [place] [address]- 5932 Aug, [facility] [id number] [place] [address] 76699- 4081 Aug, [facility] [place] [facility] [id number] [place] [address] [id number] Aug, [facility] [id number] [place] [address] 45161- 8800 Aug, [facility] [id number] [place] [address] 68058- 5654 Aug, Type 2 diabetes mellitus without complication, unspecified prison insulin use status E11.9 [facility] [id number] [place] [address] 51283- 8854 Aug, Other chronic pain G89.29 [facility] [address], [place] [address]- 4503 18 Aug, 2017 [facility] [address] [place] [address] 12736- 4124 16 Aug, 2017 [facility] [address] [place] [address] 59997- 8722 22 Jul, 2017 Other chronic pain G89.29 [facility] [address], [place] [address]- 5499 19 Jul, 2017 [facility] [address], [place] [address]- 0633 19 Jul, 2017 Dark brown urine R82.99 [facility] [address], [place] [address]- 1367 19 Jul, 2017 Dark brown urine R82.99 [facility] [address], [place] [address]- 3251 14 Jul, 2017 [place] [address] [place] [address] 26608- 8791 Jun, Other chronic pain G89.29 [place] [address] [place] [id number] [place] [address] 92536- 7427 Jun, Type 2 diabetes mellitus without complication, unspecified termite treater insulin use status E11.9 [place] [address] [place] [id number] [place] [address] 51164- 8266 May, Candidiasis, intertrigo B37.2 [place] [address] [place] [id number] [place] [address] 63590- 7723 May, Other chronic pain G89.29 [place] [address] [place] [id number] [place] [address] 79722- 6587 May, [place] [address] [place] [id number] [place] [address] 50123- 5511 May, [place] [address] [address] [id number] [place] [address] 02720- 9715 May, Candidiasis, intertrigo B37.2 [place] [address] [place] [id number] [place] [address] 58539- 0141 May, Atrial fibrillation, unspecified type I48.91 [place] [address] [place] [id number] [place] [address] 22896- 5873 May, Hypothyroidism, unspecified type E03.9 and Decreased renal function N28.9 [place] [address] [place] [id number] [place] [address] 16481- 8785 May, Type 2 diabetes mellitus without complication, unspecified prison insulin use status E11.9 [place] [address] [place] [id number] [place] [address] 25659- 9829 May, Dental examination Z01.20 [place] [address] [place] [address] 17898- 0911 May, Chronic kidney disease (CKD), unspecified stage N18.9 ; Type 2 diabetes mellitus without complication, unspecified termite treater insulin use status E11.9 ; Hypothyroidism, unspecified type E03.9 ; Depression, unspecified depression type F32.9 ; Anemia, unspecified type D64.9 and Ulcer L98.499 [facility] [address], [place] [address]- 3048 May, [facility] [address] [id number] [place] [address] 86095- 3522 Apr, Other chronic pain G89.29 [facility] [address] [address] [id number] [place] [address] 64472- 0730 Apr, Other chronic pain G89.29 [place] [id number] [place] [address] 74746- 1046 March, [facility] [id number] [place] [address] 63820- 8305 March, [facility] [id number] [place] [address] 65089- 7366 March, [facility] [id number] [place] [address] 61546- 2951 March, Other chronic pain G89.29 [place] [address] [address] [id number] [place] [address] 87769- 5190 March, [facility] [address], [place] [address]- 3284 Feb, [facility] [id number] [place] [address] 49981- 8052 Feb, Type 2 diabetes mellitus without complication, unspecified prison insulin use status E11.9 ; Candidiasis, intertrigo B37.2 ; Decubitus ulcer of left buttock, unstageable L89.320 and Pressure ulcer of contiguous region involving right buttock and hip, unspecified ulcer stage L89.40 [facility] [address], [place] [address]- 6107 Feb, Atrial fibrillation, unspecified type I48.91 [facility] [address] [facility] [id number], [place] [address]- 2244 Feb, [facility] [address] [facility] [id number] [place] [address] 60571- 7716 Feb, [facility] [address], [place] [address] 2546 Feb, Other chronic pain G89.29 [facility] [address] [facility] [id number], [place] [address]- 8203 Jan, Other chronic pain G89.29 [facility] [address] [facility] [id number] [place] [address] 44415- 6316 Dec, [facility] [id number] [place] [address] 93215- 0676 Dec, Lethargy R53.83 [facility] [address] [place] [address] 73621- 0706 Dec, [facility] [id number], [place] [address]- 0587 Dec, Other chronic pain G89.29 [facility] [address], [place] [address]- 4261 Nov, [facility] [address], [place] [address]- 4092 Nov, [facility] [address], [place] [address]- 2542 Nov, Other chronic pain G89.29 [facility] [address] [facility] [id number], [place] [address]- 3300 Nov, [facility] [address] [facility] [id number], [place] [address]- 9831 Nov, [facility] [address], [place] [address]- 0736 Nov, [facility] [address], [place] [address]- 4666 Oct, Cough R[address] [place] [address] [place] [id number] [place] [address] 95273- 4177 Oct, Urinary tract infection, site not specified N39.0 [place] [address] [place] [address] 70637- 8185 16 Oct, 2016 Other chronic pain G89.29 [place] [address] [id number] [place] [address] 69486- 5778 15 Oct, 2016 Type 2 diabetes mellitus without complication, unspecified [...] J30.89 ; Nausea R11.0 and Candidiasis B37.9 [place] [address] [place] [address] 31200- 9290 Oct, [place] [address] [place] [address] 65721- 1522 Oct, [place] [address] [place] [address] 96018- 7169 Oct, [place] [address] [place] [address] 51116- 6391 Oct, Chronic kidney disease (CKD), unspecified stage N18.9 [place] [address] [place] [address] 43616- 6752 Oct, [place] [id number] [place] [address] 42218- 4152 Sep, Other chronic pain G89.29 [facility] [address] [id number] [address]- 4470 Sep, Chronic kidney disease (CKD), unspecified stage N18.9 and Senile cataract of right eye, unspecified age-related cataract type H25.9 [facility] [address], [place] [address]- 7313 Sep, [facility] [id number] [place] [address] 18787- 7701 Sep, [facility] [id number] [place] [address] 63116- 9805 Sep, [facility] [id number] [place] [address] 62094- 8843 Sep, [facility] [id number] [place] [address] 99739- 1757 Sep, [facility] [id number] [place] [address] 15798- 3139 Aug, [facility] [address], [place] [address]- 6541 Aug, [facility] [id number] [place] [address] 20627- 5427 Aug, [facility] [address], [place] [address]- 1486 Aug, Encounter to establish care Z76.89 ; Other chronic pain G89.29 ; Chronic kidney disease (CKD), unspecified stage N18.9 ; Obstructive sleep apnea syndrome G47.33 ; Type 2 diabetes mellitus without complication, unspecified termite treater insulin use status E11.9 ; Urinary incontinence, unspecified type R32 ; Depression, unspecified depression type F32.9 ; History of femur fracture Z87.81 ; History of fractured kneecap Z87.81 ; Hypothyroidism , unspecified type E03.9 ; Cataract H26.9 and Gastroesophageal reflux disease without esophagitis K21.9 [facility] [address], [place] [address]- 4997 14 Aug, 2016 [place] [address], [place] [address]- 5630 Aug, Urinary incontinence, unspecified type R32 [place] [id number] [place] [address] 40935- 4835 Aug, [facility] [facility] [id number] [place] [address] 08147- 8567 Jul, [address] [id number] Jul, Type 2 diabetes mellitus without complication, unspecified prison insulin use status E11.9 ; Chronic kidney [...] E03.9 and Constipation, unspecified constipation type K59.00 [place] [address] [place] [address] 14650- 2172 Jul, [place] [address] [place] [address] 29484- 2189 Jul, [address] [id number] Jul, Anemia, unspecified type D64.9 ; Acute renal failure, unspecified acute renal failure type N17.9 ; Other chronic pain G89.29 ; Obstructive sleep apnea syndrome G47.33 and Type 2 diabetes mellitus without complication, unspecified prison insulin use status E11.9 [place] [address] [place] [address] 67374- 1549 13 Jul, 2016 [place] [address] [place] [address] 92783- 8561 Jul, [place] [address] [place] [facility] [place] [address]- 7578 12 Jul, 2016 [facility] [address] [id number] [place] [address] 2541 Jul, [facility] [address] [facility] [id number] [place] [address] 2549 Jul, [facility] [address] [id number] Jun, Other chronic pain G89.29 ; Hayes catheter in place Z92.89 ; Chronic kidney disease (CKD), unspecified stage N18.9 and Blisters of multiple sites R23.8 [facility] [address] [id number] [place] [address]- 5611 Jun, [facility] [address] [facility] [id number] [place] [address]- 1972 Jun, [facility] [id number] [place] [address]- 1593 Jun, [facility] [address] [id number] [place] [address]- 2942 Jun, [facility] [address] [facility] [id number] [place] [address]- 9724 Jun, [facility] [address] [facility] [id number] [place] [address] Jun, [facility] [address] [facility] [id number] [place] [address] Jun, [facility] [address] [facility] [id number] [place] [address] Jun, [facility] [address] [facility] [id number] [place] [address] Jun, [facility] [address] [facility] [id number] [place] [address] Jun, [facility] [address] [facility] [id number] [place] [address] Jun, [facility] [address] [facility] [id number], [place] [address] May, [facility] [address] [facility] [id number], [place] [address] May, [facility] [address] [facility] [id number], [place] [address] May, Other chronic pain G89.29 [facility] [address] [place], [place] [id number] May, Encounter to establish care Z76.89 ; [...] SOCIAL HISTORY Never Assessed REASON FOR VISIT Hospital admit/transfer PLAN OF CARE VITAL SIGNS MEDICATIONS No [...] Acute Kidney Injury 08/05/16 Hospitalization History UTI, Sepsis--[facility] Hospitalization History Chest pain/SOB/A-fib 02/2017 Hospitalization History Chest pain-[facility] 04/13/17 Hospitalization History UTI, respiratory failure, altered mental status-[facility] 09/13/17
--- OUTSIDE RECORDS SUMMARY | 2018-09-17 19:24 | XMS REPORT ---
Author Author LATONYA KIM [facility] Address [address] [place] [address] Care Team Providers Care Production Consultant Name Role Phone LATONYA KIM Unavailable PROBLEMS Type Condition ICD9-CM Code ETD62-LN Code Onset Dates Condition Status SNOMED Code Problem Ulcer L98.499 Active 878787976 Problem Chronic fatigue R53.82 Active 06360432 Problem Decreased renal function N28.9 Active 57508927 Problem Nephrolithiasis N20.0 Active 23767480 Problem Chronic kidney disease (CKD), unspecified stage N18.9 Active 608710133 Problem Venous stasis dermatitis of both lower extremities I87.2 Active 67486757 Problem Urinary incontinence, unspecified type R32 Active 909857831 Problem Morbid obesity due to excess calories E66.01 Active 005815920 Problem Anxiety F41.9 Active 06807363 Problem Bladder spasms N32.89 Active 994136933 Problem Stage 4 chronic kidney disease N18.4 Active 223533082 Problem Primary insomnia F51.01 Active 4102726 Problem Hypothyroidism, unspecified type E03.9 Active 97993366 Problem Cataract H26.9 Active 344403537 Problem Type 2 diabetes mellitus without complication, unspecified terminal press operator insulin use status E11.9 Active 25505809 Problem Depression, unspecified depression type F32.9 Active 35950711 Problem Other chronic pain G89.29 Active 80359412 Problem Perennial allergic rhinitis, unspecified allergic rhinitis trigger J30.89 Active 505823355 Problem Obstructive sleep apnea syndrome G47.33 Active 45244845 Problem Restless leg syndrome G25.81 Active 38510870 Problem Closed fracture of left patella, unspecified fracture morphology, sequela S82.002S Active 99147128 Problem Gastroesophageal reflux disease without esophagitis K21.9 Active 334561194 Problem Atrial fibrillation, unspecified type I48.91 Active 45209246 ALLERGIES No Information ENCOUNTERS Encounter Location Date Diagnosis [facility], [place] [id number] [place] [address] 17107- 1108 Jun, [place] [id number] [place] [address] 13940- 8855 May, Other chronic pain G89.29 ; Arthralgia, unspecified joint M25.50 and Primary insomnia F51.01 [place] [id number] [place] [address] 75548- 2088 May, Urinary tract infection without hematuria, site unspecified N39.0 [place] [id number] [place] [address] 96284- 0593 May, Bladder spasms N32.89 [place] [id number] [place] [address] 99873- 9291 May, Primary insomnia F51.01 [place] [id number] [place] [address] 73598- 2812 May, [facility] [id number] [place] [address] 82239- 7130 May, Primary insomnia F51.01 and Arthralgia, unspecified joint M25.50 [place] [id number] [place] [address] 73621- 1361 May, Other chronic pain G89.29 [facility] [address] [place] [id number] May, Nephrolithiasis N20.0 ; Cataract H26.9 and Macrocytic anemia D53.9 [place] [address] [place] [address] 07082- 4348 May, [place] [id number] [place] [address] 27226- 2481 Apr, [place] [id number] [place] [address] 15503- 3859 Apr, [facility] [id number] [place] [address] 09821- 9569 Apr, Primary insomnia F51.01 [place] [address] [address] 6398 Apr, [place] [id number] [place] [address] 46058- 9940 March, Other chronic pain G89.29 [facility] [address] [place] [id number] March, Arthralgia, unspecified joint M25.50 ; Abnormal urine sediment R82.90 ; Venous stasis dermatitis of both lower extremities I87.2 ; Stage 4 chronic kidney disease N18.4 and Cataract of right eye, unspecified cataract type H26.9 [place] [id number] [place] [address] 41375- 6522 March, Primary insomnia F51.01 [facility] [address] [place] [id number] March, Cervicalgia M54.2 ; Acute pain of right shoulder M25.511 and Pain of left femur M89.8X5 [place] [address] [place] [address] 16329- 9064 March, [place] [id number] [place] [address] 89334- 0860 March, Other chronic pain G89.29 [place] [address] [place] [address] 04181- 2497 Feb, [facility] [address] [place] [id number] Feb, Leg swelling M79.89 [place] [address] [place] [address] 05118- 6968 Feb, Primary insomnia F51.01 [facility] [address] [place] [id number] Feb, Fever in other diseases R50.81 and Intermittent left lower quadrant abdominal pain R10.32 [place] [address] [place] [address] 26606- 3063 Feb, [place] [address] [place] [address] 83542- 5744 Feb, [place] [id number] [place] [address] 24779- 5904 Feb, Depression, unspecified depression type F32.9 ; Hypothyroidism, unspecified type E03.9 ; Type 2 diabetes mellitus without complication, unspecified terminal press operator insulin use status E11.9 and Anxiety F41.9 [place] [id number] [place] [address] 72900- 5239 Feb, Other chronic pain G89.29 [place] [address] [id number] Jan, Other chronic pain G89.29 [place] [id number] [place] [address] 00127- 8019 Jan, Bladder spasms N32.89 [place] [id number] [place] [address] 18276- 2805 Jan, Bladder spasms N32.89 [place] [id number] [place] [address] 93869- 9565 Dec, Bladder spasms N32.89 [place] [id number] [place] [address] 34148- 5270 Dec, Depression, unspecified depression type F32.9 [place] [id number] [place] [address] 55598- 7309 Dec, [facility] [address] [place] [id number] Dec, Hypothyroidism, unspecified type E03.9 ; Depression, unspecified depression type F32.9 ; Other chronic pain G89.29 ; Urinary retention R33.9 and Atrial fibrillation, unspecified type I48.91 [place] [id number] [place] [address] [id number] Dec, [place] [id number] [place] [address] [id number] Dec, Other chronic pain G89.29 [facility] [address] [id number] Nov, [facility] [id number] [place] [address] [id number] Nov, Other chronic pain G89.29 [facility], [place] [id number] [place] [address] 63214- 8595 Nov, Other chronic pain G89.29 [facility], [place] [id number] [place] [address] 71325- 6050 Nov, [facility], [place] [id number] [place] [address] 963926- 3902 Nov, [facility], [place] [id number] [place] [address] 84182- 1086 Nov, Other chronic pain G89.29 [facility], [place] [id number] [place] [address] 03789- 1617 Nov, Other chronic pain G89.29 [facility], [place] [address] [place] [address] 67264- 3545 Oct, [facility], [place] [address] [place] [address] 78384- 8233 Oct, Other chronic pain G89.29 [facility] [address] [place] [id number] Oct, Weakness R53.1 ; Macrocytic anemia D53.9 ; Discolored skin L81.9 ; Other chronic pain G89.29 ; Dysuria R30.0 and Hayes catheter in place Z92.89 [facility], [place] [address] [place] [address] 606665- 1966 Oct, Other chronic pain G89.29 [facility] [id number] [place] [address] [phone] Sep, [facility], [place] [address] [place] [address] [phone]- 2179 Sep, [facility], [place] [address], [place] [address]- 9774 Sep, [facility] [id number] [place] [address] [phone] Sep, [facility] [id number] [place] [address] [id number] Sep, Other chronic pain G89.29 [facility], [place] [id number] [place] [address] 75312- 1316 Sep, [facility] [id number] [place] [address] [phone] Sep, Other chronic pain G89.29 [facility] [address] [place] [id number] Sep, Chronic urinary tract infection N39.0 ; Other chronic pain G89.29 ; Chronic kidney disease (CKD), unspecified stage N18.9 ; Type 2 diabetes mellitus without complication, unspecified terminal press operator insulin use status E11.9 ; Hypothyroidism, unspecified type E03.9 ; Depression, unspecified depression type F32.9 ; Cataract H26.9 ; Obstructive sleep apnea syndrome G47.33 ; Atrial fibrillation, unspecified type I48.91 ; History of femur fracture Z87.81 and [address] catheter in place Z92.89 [facility], [place] [address] [address]- 0910 Sep, [facility], [place] [address] [place] [address] 58941- 6376 Aug, [facility], [place] [address] [place] [address] 71704- 4556 Aug, Other chronic pain G89.29 [facility], [place] [id number] [place] [address] 524982- 4598 Aug, [facility], [place] [address] [place] [address] 116722- 3901 Aug, [facility] [id number] [place] [address] [phone] Aug, [facility], [place] [address] [address]- 1520 Aug, [facility] [place] [id number] [place] [address] 88179 2546 Aug, Type 2 diabetes mellitus without complication, unspecified terminal press operator insulin use status E11.9 [facility], [place] [address] [place] [address] 93226- 2530 Aug, Other chronic pain G89.29 [facility], [place] [address], [place] [address]- 5263 18 Aug, 2017 [facility], [place] [id number] [place] [address] 91720- 4524 16 Aug, 2017 [facility], [place] [address] [place] [address] 79789 2540 22 Jul, 2017 Other chronic pain G89.29 [facility], [place] [address] [place] [address] 56888 2546 19 Jul, 2017 [facility] [place] [address] [place] [address] 23723 2546 19 Jul, 2017 Dark brown urine R82.99 [facility], [place] [address], [place] [address] 2546 19 Jul, 2017 Dark brown urine R82.99 [facility], [place] [address], [place] [address] 2546 14 Jul, 2017 [facility], [place] [address], [place] [address] 2547 Jun, Other chronic pain G89.29 [facility], [place] [address], [place] [address] 2546 Jun, Type 2 diabetes mellitus without complication, unspecified terminal press operator insulin use status E11.9 [facility], [place] [address] [address] 2546 May, she Miranda B37.2 [place] [address], [place] [address]- 5007 May, Other chronic pain G89.29 [place] [id number] [place] [address] 51152- 7102 May, [place] [id number] [place] [address] 59485- 8358 May, [place] [id number] [place] [address] 53551- 4973 May, Candidiasis, intertrigo B37.2 [place] [id number] [place] [address] 84235- 8403 May, Atrial fibrillation, unspecified type I48.91 [place] [id number] [place] [address] 39531- 7338 May, Hypothyroidism, unspecified type E03.9 and Decreased renal function N28.9 [place] [id number] [place] [address] 05258- 3644 May, Type 2 diabetes mellitus without complication, unspecified terminal press operator insulin use status E11.9 [place] [id number] [place] [address] 64892- 0986 May, Dental examination Z01.20 [place] [id number] [place] [address] 41640- 6210 May, Chronic kidney disease (CKD), unspecified stage N18.9 ; Type 2 diabetes mellitus without complication, unspecified jail insulin use status E11.9 ; Hypothyroidism, unspecified type E03.9 ; Depression, unspecified depression type F32.9 ; Anemia, unspecified type D64.9 and Ulcer L98.499 [place] [address] [place] [address] 29923- 7339 May, [place] [address] [place] [address] 64017- 4623 Apr, Other chronic pain G89.29 [place] [address], [place] [address]- 8135 Apr, Other chronic pain G89.29 [facility], [place] [address], [place] [address]- 7957 March, [facility], [place] [address], [place] [address]- 7590 March, [facility], [place] [id number] [place] [address] 57878- 8817 March, [facility], [place] [address] [place] [address] 24094- 9324 March, Other chronic pain G89.29 [facility], [place] [address] [place] [address] 72861- 2638 March, [facility], [place] [id number] [place] [address] 01808- 4955 Feb, [facility], [place] [address] [place] [address] 30032- 0535 Feb, Type 2 diabetes mellitus without complication, unspecified jail insulin use status E11.9 ; Candidiasis, intertrigo B37.2 ; Decubitus ulcer of left buttock, unstageable L89.320 and Pressure ulcer of contiguous region involving right buttock and hip, unspecified ulcer stage L89.40 [facility], [place] [address], [place] [address]- 9447 Feb, Atrial fibrillation, unspecified type I48.91 [facility], [place] [address], [place] [address]- 7454 Feb, [facility], [place] [id number] [place] [address] 56619- 8786 Feb, [facility], [place] [address], [place] [address]- 7750 Feb, Other chronic pain G89.29 [facility], [place] [address] [place] [address] 21807- 0643 Jan, Other chronic pain G89.29 [facility], [place] [address], [place] [address]- 2664 Dec, [facility], [place] [id number] [place] [address] 41154- 6032 Dec, Lethargy R53.83 [facility], [place] [id number] [place] [address] 18692- 2896 17 Dec, 2016 [facility], [place] [address] [place] [address] 63488- 6260 Dec, Other chronic pain G89.29 [facility], [place] [id number] [place] [address] 75441- 6544 Nov, [facility], [place] [id number] [place] [address] 64166- 8563 Nov, [facility], [place] [id number] [place] [address] 79661- 4090 Nov, Other chronic pain G89.29 [facility], [place] [address] [place] [address] 20307- 2402 Nov, [facility], [place] [address] [place] [address] 44524- 8075 Nov, [facility], [place] [address], [place] [address]- 0440 Nov, [facility], [place] [address] [place] [address] 32396- 9521 Oct, Cough R05 [facility], [place] [address] [place] [address] 26480- 2233 Oct, Urinary tract infection, site not specified N39.0 [facility], [place] [address], [place] [address]- 6514 Oct, Other chronic pain G89.29 [facility], [place] [address] [place] [address] 90306- 3755 Oct, Type 2 diabetes mellitus without complication, unspecified terminal press operator insulin use status E11.9 ; Other [...] J30.89 ; Nausea R11.0 and Candidiasis B37.9 [place] [address] 51200- 5092 Oct, [place] [address] 27471- 5461 Oct, [place] [address] 90305- 9470 Oct, [place] [address] 88949- 3062 Oct, Chronic kidney disease (CKD), unspecified stage N18.9 [place] [address] 68974- 3580 Oct, [place] [address] 15529- 5568 Sep, Other chronic pain G89.29 [place] [address] 00887- 6281 Sep, Chronic kidney disease (CKD), unspecified stage N18.9 and Senile cataract of right eye, unspecified age-related cataract type H25.9 [place] [address] 49012- 8077 Sep, [place] [address] 46672- 1178 Sep, [place] [address], [place] [address]- 9375 Sep, [facility], [place] [address], [place] [address]- 6222 Sep, [facility], [place] [address], [place] [address]- 0772 Sep, [facility], [place] [address] [place] [address] 78371- 8451 Aug, [facility], [place] [address], [place] [address]- 1905 Aug, [facility], [place] [address] [place] [address] 20210- 7999 Aug, [facility], [place] [address], [place] [address]- 1821 18 Aug, 2016 Encounter to establish care Z76.89 ; Other chronic pain G89.29 ; Chronic kidney disease (CKD), unspecified stage N18.9 ; Obstructive sleep apnea syndrome G47.33 ; Type 2 diabetes mellitus without complication, unspecified jail insulin use status E11.9 ; Urinary incontinence, unspecified type R32 ; Depression, unspecified depression type F32.9 ; History of femur fracture Z87.81 ; History of fractured kneecap Z87.81 ; Hypothyroidism , unspecified type E03.9 ; Cataract H26.9 and Gastroesophageal reflux disease without esophagitis K21.9 [facility], [place] [address], [place] [address]- 9083 Aug, [facility], [place] [id number], [place] [address]- 5777 Aug, Urinary incontinence, unspecified type R32 [facility], [place] [address], [place] [address]- 5814 Aug, [facility], [place] [id number], [place] [address]- 4164 Jul, [facility] [address] [place] [id number] Jul, Type 2 diabetes mellitus without complication, unspecified terminal press operator insulin use status E11.9 ; Chronic [...] E03.9 and Constipation, unspecified constipation type K59.00 [place] [address] 41154- 6865 Jul, [place] [id number] [place] [address] 40306- 3152 Jul, [employer] [address] [id number] Jul, Anemia, unspecified type D64.9 ; Acute renal failure, unspecified acute renal failure type N17.9 ; Other chronic pain G89.29 ; Obstructive sleep apnea syndrome G47.33 and Type 2 diabetes mellitus without complication, unspecified jail insulin use status E11.9 [place] [id number] [place] [address] 51576- 7198 13 Jul, 2016 [place] [id number] [place] [address] 74465- 8082 Jul, [place] [id number] [place] [address] 04419- 8341 Jul, [place] [id number] [place] [address] 50071- 8712 Jul, [place] [id number] [place] [address] 51474- 4511 Jul, [facility] [address] [place] [id number] Jun, Other chronic pain G89.29 ; Hayes catheter in place Z92.89 ; Chronic kidney disease (CKD), unspecified stage N18.9 and Blisters of multiple sites R23.8 [facility], [place] [address] [id number] [place] [address]- 5071 Jun, [facility] [address] [id number] [place] [address]- 5465 Jun, [facility], [place] [address] [id number] [place] [address]- 9111 Jun, [facility] [address] [id number] [place] [address]- 5065 Jun, [facility], [place] [address] [id number] [place] [address]- 7902 Jun, [facility], [place] [address] [id number] [place] [address]- 6205 Jun, [facility], [place] [address] [id number] [place] [address] Jun, [facility], [place] [address] [id number] [place] [address] Jun, [facility], [place] [address] [facility] [id number] [place] [address] Jun, [facility], [place] [address] [facility] [id number] [place] [address] Jun, [facility], [place] [address] [id number] [place] [address] Jun, [facility], [place] [address] [id number] [address] May, [facility], [place] [address] [facility] [id number] [place] [address] May, [facility], [place] [address] [facility] [id number], [place] [address] May, Other chronic pain G89.29 [facility] [address] [id number] May, Encounter to establish care Z76.89 ; Type 2 diabetes mellitus without complication, unspecified jail insulin use status E11.9 ; Hypothyroidism, unspecified [...] Assessed REASON FOR VISIT Controlled Med Refill 05/02/18 PLAN OF CARE VITAL SIGNS MEDICATIONS Medication [...] Acute Kidney Injury 08/05/16 Hospitalization History UTI, Sepsis--[facility] Hospitalization History Chest pain/SOB/A-fib 02/2017 Hospitalization History Chest pain-[facility] 04/13/17 Hospitalization History UTI, respiratory failure, altered mental status-[facility] 09/13/17
--- OUTSIDE RECORDS SUMMARY | 2018-09-17 19:24 | XMS REPORT ---
Author Author LATONYA KIM [facility] Address [address] [place] [address] Care Team Providers Care Tafe Registrar Name Role Phone LATONYA KIM Unavailable PROBLEMS Type Condition ICD9-CM Code WGC56-UD Code Onset Dates Condition Status SNOMED Code Problem Ulcer L98.499 Active 007662415 Problem Chronic fatigue R53.82 Active 89645787 Problem Decreased renal function N28.9 Active 37005230 Problem Nephrolithiasis N20.0 Active 06874774 Problem Chronic kidney disease (CKD), unspecified stage N18.9 Active 786323123 Problem Venous stasis dermatitis of both lower extremities I87.2 Active 97352889 Problem Urinary incontinence, unspecified type R32 Active 640344911 Problem Morbid obesity due to excess calories E66.01 Active 758550943 Problem Anxiety F41.9 Active 46017738 Problem Bladder spasms N32.89 Active 713975925 Problem Stage 4 chronic kidney disease N18.4 Active 462962149 Problem Primary insomnia F51.01 Active 0669874 Problem Hypothyroidism, unspecified type E03.9 Active 41846106 Problem Cataract H26.9 Active 764853139 Problem Type 2 diabetes mellitus without complication, unspecified terminal superintendent insulin use status E11.9 Active 37470334 Problem Depression, unspecified depression type F32.9 Active 21518853 Problem Other chronic pain G89.29 Active 97459861 Problem Perennial allergic rhinitis, unspecified allergic rhinitis trigger J30.89 Active 259267379 Problem Obstructive sleep apnea syndrome G47.33 Active 50810218 Problem Restless leg syndrome G25.81 Active 52888828 Problem Closed fracture of left patella, unspecified fracture morphology, sequela S82.002S Active 83940380 Problem Gastroesophageal reflux disease without esophagitis K21.9 Active 382709259 Problem Atrial fibrillation, unspecified type I48.91 Active 31027920 ALLERGIES No Information ENCOUNTERS Encounter Location Date Diagnosis [facility] [id number] [place] [address] 93078- 4555 Jun, Other chronic pain G89.29 ; Arthralgia, unspecified joint M25.50 and Primary insomnia F51.01 [place] [id number] [place] [address] 58956- 6533 Jun, [place] [address] [place] [id number] [place] [address] 67192- 0274 May, Other chronic pain G89.29 ; Arthralgia, unspecified joint M25.50 and Primary insomnia F51.01 [place] [address] [place] [place] [id number] [place] [address] 25114- 8413 May, Urinary tract infection without hematuria, site unspecified N39.0 [place] [address] [id number] [place] [address] 91418- 8293 May, Bladder spasms N32.89 [place] [address] [place] [place] [id number] [place] [address] 38786- 7367 May, Primary insomnia F51.01 [place] [id number] [place] [address] 72234- 9450 May, [place] [address] [id number] [place] [address] 64623- 1700 May, Primary insomnia F51.01 and Arthralgia, unspecified joint M25.50 [place] [id number] [place] [address] 42140- 7762 May, Other chronic pain G89.29 Via [facility] [address] [place] [id number] May, Nephrolithiasis N20.0 ; Cataract H26.9 and Macrocytic anemia D53.9 [place] [address] [place] [address] 24349- 6789 May, [place] [address] [id number] [place] [address] 77592- 6186 Apr, [place] [address] [address] 0526 Apr, [place] [address] [place] [address] 39240- 9532 Apr, Primary insomnia F51.01 [place] [address] [address] 9260 Apr, [place] [address] [id number] [place] [address] 58383- 7562 March, Other chronic pain G89.29 Via [facility] [address] [place] [id number] March, Arthralgia, unspecified joint M25.50 ; Abnormal urine sediment R82.90 ; Venous stasis dermatitis of both lower extremities I87.2 ; Stage 4 chronic kidney disease N18.4 and Cataract of right eye, unspecified cataract type H26.9 [place] [address] [place] [address] 09674- 5912 March, Primary insomnia F51.01 [facility] [address] [place] [id number] March, Cervicalgia M54.2 ; Acute pain of right shoulder M25.511 and Pain of left femur M89.8X5 [place] [address] [address]- 5375 March, [place] [address] [address]- 3412 March, Other chronic pain G89.29 [place] [address] [place] [id number] [address]- 3124 Feb, [facility] [address] [place] [id number] Feb, Leg swelling M79.89 [place] [address] [address]- 8704 Feb, Primary insomnia F51.01 [facility] [address] [place] [id number] Feb, Fever in other diseases R50.81 and Intermittent left lower quadrant abdominal pain R10.32 [place] [address] [id number] [place] [address] 29269- 8262 Feb, [place] [address] [id number] [place] [address] 43079- 7746 Feb, [place] [address] 58831- 8398 Feb, Depression, unspecified depression type F32.9 ; Hypothyroidism, unspecified type E03.9 ; Type 2 diabetes mellitus without complication, unspecified fdc insulin use status E11.9 and Anxiety F41.9 [place] [address] 79900- 4414 Feb, Other chronic pain G89.29 [place] [address] [id number] Jan, Other chronic pain G89.29 [place] [address] 59469- 9832 Jan, Bladder spasms N32.89 [place] [address] 60525- 2557 Jan, Bladder spasms N32.89 [place] [address] 40655- 5340 Dec, Bladder spasms N32.89 [place] [address] 31097- 6349 Dec, Depression, unspecified depression type F32.9 [place] [address] [place] [id number] [place] [address] 40009- 4263 Dec, Via [facility] [address] [place] [address] Dec, Hypothyroidism, unspecified type E03.9 ; Depression, unspecified depression type F32.9 ; Other chronic pain G89.29 ; Urinary retention R33.9 and Atrial fibrillation, unspecified type I48.91 [facility] [id number] [address] 07 Dec, 2017 [facility] [id number] [place] [address] [id number] Dec, Other chronic pain G89.29 [facility] [id number] [address] Nov, [facility] [id number] [place] [address] [id number] Nov, Other chronic pain G89.29 [facility] [address] [place] [address] 61304- 2525 Nov, Other chronic pain G89.29 [facility] [address] [place] [address] 07462- 4526 Nov, [facility] [id number] [place] [address] 96660- 6549 Nov, [facility] [address] [place] [address] 29754884- 3056 Nov, Other chronic pain G89.29 [facility] [id number] [place] [address] 427087- 1898 Nov, Other chronic pain G89.29 [facility] [address] [place] [address] [id number]- 0240 14 Oct, 2017 [facility] [address] [place] [address] 788999- 7641 Oct, Other chronic pain G89.29 Via [facility] [address] [place] [id number] Oct, Weakness R53.1 ; Macrocytic anemia D53.9 ; Discolored skin L81.9 ; Other chronic pain G89.29 ; Dysuria R30.0 and Hayes catheter in place Z92.89 [facility] [address] [address] 07 Oct, 2017 Other chronic pain G89.29 [facility] [address] [place] [address] [id number] [address] Sep, [facility] [id number] [address] 6694 Sep, [facility] [address] [address] 4816 Sep, [facility] [id number] [id number] Sep, [facility] [id number] [address] Sep, Other chronic pain G89.29 [facility] [address] [address]- 8356 Sep, [facility] [id number] [address] Sep, Other chronic pain G89.29 [address] [place] [address] [facility] [address] [place] [id number] Sep, Chronic urinary tract infection N39.0 ; [...] place Z92.89 [facility] [id number] [address] 1656 Sep, [facility] [id number] [address]- 2497 Aug, [facility] [id number] [address]- 5200 Aug, Other chronic pain G89.29 [facility] [id number] [address]- 4832 Aug, [facility] [address] [address]- 6317 Aug, [facility] [facility] [id number] [place] [address] [id number] Aug, [facility] [address] [address]- 5569 Aug, [facility] [id number] [place] [address] 96809- 1121 Aug, Type 2 diabetes mellitus without complication, unspecified fdc insulin use status E11.9 [facility] [address] [place] [address] 04491- 1459 Aug, Other chronic pain G89.29 [facility] [address] [place] [address] 33480- 8020 18 Aug, 2017 [facility] [id number] [place] [address] 62785- 1151 16 Aug, 2017 [facility] [address] [place] [address] 98876- 2931 22 Jul, 2017 Other chronic pain G89.29 [facility] [address] [place] [address] 08678- 0147 19 Jul, 2017 [facility] [address] [address]- 4763 19 Jul, 2017 Dark brown urine R82.99 [facility] [address] [address]- 0191 19 Jul, 2017 Dark brown urine R82.99 [facility] [address] [address]- 3313 14 Jul, 2017 [facility] [address] [address]- 0502 Jun, Other chronic pain G89.29 [facility] [address] [address]- 9303 Jun, Type 2 diabetes mellitus without complication, unspecified terminal superintendent insulin use status E11.9 [place] [id number] [place] [address] 74994- 6764 May, Candidiasis, intertrigo B37.2 [place] [address] [place] [address] [id number] [place] [address] 50326- 4201 May, Other chronic pain G89.29 [place] [address] [address] [id number] [place] [address] 09208- 7989 May, [place] [address] [address] [id number] [place] [address] 63428- 9111 May, [place] [address] [id number] [place] [address] 12484- 1226 May, Candidiasis, intertrigo B37.2 [place] [address] [id number] [place] [address] 19763- 7013 May, Atrial fibrillation, unspecified type I48.91 [place] [address] [address] [id number] [place] [address] 27963- 2959 May, Hypothyroidism, unspecified type E03.9 and Decreased renal function N28.9 [place] [address] [address] [id number] [place] [address] 87635- 8556 May, Type 2 diabetes mellitus without complication, unspecified terminal superintendent insulin use status E11.9 [place] [place] [address] [place] [id number] [place] [address] 53975- 5907 May, Dental examination Z01.20 [place] [id number] [place] [address] 44485- 2066 May, Chronic kidney disease (CKD), unspecified stage N18.9 ; Type 2 diabetes mellitus without complication, unspecified terminal superintendent insulin use status E11.9 ; Hypothyroidism, unspecified type E03.9 ; Depression, unspecified depression type F32.9 ; Anemia, unspecified type D64.9 and Ulcer L98.499 [place] [address] [place] [address]- 6484 May, [facility] [address] [address]- 0724 Apr, Other chronic pain G89.29 [facility] [address] [address]- 0063 Apr, Other chronic pain G89.29 [facility] [id number] [place] [address] 17299- 6986 March, [facility] [id number] [place] [address] 19454- 9712 March, [facility] [id number] [place] [address] 70626- 3940 March, [facility] [id number] [place] [address] 39112- 4936 March, Other chronic pain G89.29 [facility] [id number] [place] [address] 36309- 4365 March, [facility] [address] [place] [address] 07094- 0915 Feb, [facility] [address] [place] [address] 20419- 2622 Feb, Type 2 diabetes mellitus without complication, unspecified terminal superintendent insulin use status E11.9 ; Candidiasis, intertrigo B37.2 ; Decubitus ulcer of left buttock, unstageable L89.320 and Pressure ulcer of contiguous region involving right buttock and hip, unspecified ulcer stage L89.40 [facility] [address] [address]- 0895 Feb, Atrial fibrillation, unspecified type I48.91 [facility] [address] [address]- 1603 Feb, [facility] [address] [address]- 3988 Feb, [facility] [address] [address]- 1332 Feb, Other chronic pain G89.29 [facility] [address] [address]- 8561 Jan, Other chronic pain G89.29 [facility] [address] [address]- 9306 Dec, [facility] [address] [address]- 1508 Dec, Lethargy R53.83 [facility] [address] [place] [address] 68294- 1726 17 Dec, 2016 [facility] [address] [address]- 5052 10 Dec, 2016 Other chronic pain G89.29 [facility] [address] [address]- 4630 Nov, [facility] [address] [address]- 6645 Nov, [facility] [address] [address]- 0660 Nov, Other chronic pain G89.29 [facility] [address] [address]- 6115 Nov, [facility] [address] [address]- 3855 Nov, [facility] [id number] [address]- 9606 Nov, [facility] [address] [address]- 0526 Oct, Cough R05 [facility] [id number] [address]- 5709 Oct, Urinary tract infection, site not specified N39.0 [place] [address] [address]- 8658 16 Oct, 2016 Other chronic pain G89.29 [place] [address] [id number] [place] [address] 75100- 1979 Oct, Type 2 diabetes mellitus without complication, unspecified terminal superintendent insulin use status E11.9 ; Other chronic [...] J30.89 ; Nausea R11.0 and Candidiasis B37.9 [place] [address] [place] [address] [id number] [place] [address] 57175- 3768 Oct, [place] [address] [id number] [place] [address] 62297- 6964 Oct, [place] [id number] [place] [address] 73369- 3693 Oct, [place] [id number] [place] [address] 69340- 3435 Oct, Chronic kidney disease (CKD), unspecified stage N18.9 [place] [id number] [place] [address] 37133- 1845 Oct, [place] [id number] [place] [address] 14259- 8205 Sep, Other chronic pain G89.29 [place] [id number] [place] [address] 79694- 4660 Sep, Chronic kidney disease (CKD), unspecified stage N18.9 and Senile cataract of right eye, unspecified age-related cataract type H25.9 [place] [address]- 2553 Sep, [facility] [address] [address]- 9646 Sep, [facility] [address] [address]- 8940 Sep, [facility] [address] [address]- 8818 Sep, [facility] [address] [address]- 1133 Sep, [facility] [address] [place] [address] 15479- 9149 Aug, [facility] [address] [address]- 4598 Aug, [facility] [address] [address]- 6011 Aug, [facility] [address] [address]- 4099 Aug, Encounter to establish care Z76.89 ; [...] esophagitis K21.9 [facility] [address] [address]- 0019 Aug, [facility] [address] [address]- 3411 Aug, Urinary incontinence, unspecified type R32 [facility] [address] [address]- 6158 Aug, [place] [address] [address]- 6596 Jul, [facility] [address] [place] [id number] Jul, Type 2 diabetes mellitus without complication, [...] E03.9 and Constipation, unspecified constipation type K59.00 [place] [address] [place] [address] 97631- 1952 Jul, [place] [id number] [place] [address] 72124- 0946 Jul, [facility] [address] [place] [id number] Jul, Anemia, unspecified type D64.9 ; Acute renal failure, unspecified acute renal failure type N17.9 ; Other chronic pain G89.29 ; Obstructive sleep apnea syndrome G47.33 and Type 2 diabetes mellitus without complication, unspecified terminal superintendent insulin use status E11.9 [place] [address] [address]- 4973 Jul, [place] [id number] [place] [address] 46959- 9589 Jul, [place] [id number] [place] [address] 22983- 5379 Jul, [place] [address] [place] [address] 52488- 0589 Jul, [place] [id number] [place] [address], [place] [address]- 7481 07 Jul, 2016 [facility] [address] [facility] [id number] Jun, Other chronic pain G89.29 ; Hayes catheter in place Z92.89 ; Chronic kidney disease (CKD), unspecified stage N18.9 and Blisters of multiple sites R23.8 [facility] [address] [id number] [place] [address]- 9343 Jun, [facility] [address] [id number] [place] [address]- 6304 Jun, [facility] [id number] [place] [address], [place] [address]- 8843 Jun, [facility] [address] [id number] [place] [address]- 1776 Jun, [facility] [address] [id number] [place] [address]- 1503 Jun, [facility] [address] [id number] [place] [address]- 1765 Jun, [facility] [address] [id number] [place] [address]- 0232 Jun, [facility] [address] [facility] [id number] [place] [address]- 1021 Jun, [facility] [address] [id number] [place] [address]- 9163 Jun, [facility] [address] [id number] [place] [address]- 4998 Jun, [facility] [address] [id number] [place] [address]- 9157 Jun, [facility] [address] [id number] [place] [address]- 254 May, [facility] [address] [facility] [id number] [place] [address]- 3010 May, [facility] [address] [facility] [id number] [place] [address]- 1294 May, Other chronic pain G89.29 [facility] [address] [place] [id number] May, Encounter to establish care Z76.89 ; Type 2 diabetes mellitus without complication, unspecified terminal superintendent insulin use status E11.9 ; Hypothyroidism, unspecified [...] SOCIAL HISTORY Never Assessed REASON FOR VISIT Update PLAN OF CARE VITAL SIGNS MEDICATIONS Unknown [...] Kidney Injury 08/05/16 Hospitalization History UTI, Sepsis--[facility] Hospitalization History Chest pain/SOB/A-fib 02/2017 Hospitalization History Chest pain-[facility] 04/13/17 Hospitalization History UTI, respiratory failure, altered mental status-[facility] 09/13/17
--- OUTSIDE RECORDS SUMMARY | 2018-09-17 19:25 | XMS REPORT ---
Author Author LATONYA KIM [facility] Address [address] [place] [address] Care Team Providers Care Conveyor Attendant Name Role Phone LATONYA KIM Unavailable PROBLEMS Type Condition ICD9-CM Code WTH61-PD Code Onset Dates Condition Status SNOMED Code Problem Ulcer L98.499 Active 713843367 Problem Chronic fatigue R53.82 Active 71506565 Problem Decreased renal function N28.9 Active 68254730 Problem Nephrolithiasis N20.0 Active 34368803 Problem Chronic kidney disease (CKD), unspecified stage N18.9 Active 312915829 Problem Venous stasis dermatitis of both lower extremities I87.2 Active 26384452 Problem Urinary incontinence, unspecified type R32 Active 287734303 Problem Morbid obesity due to excess calories E66.01 Active 438471300 Problem Anxiety F41.9 Active 17748474 Problem Bladder spasms N32.89 Active 841395238 Problem Stage 4 chronic kidney disease N18.4 Active 837240113 Problem Primary insomnia F51.01 Active 4355892 Problem Hypothyroidism, unspecified type E03.9 Active 77460121 Problem Cataract H26.9 Active 039651657 Problem Type 2 diabetes mellitus without complication, unspecified long term care phlebotomist insulin use status E11.9 Active 55537800 Problem Depression, unspecified depression type F32.9 Active 18878392 Problem Other chronic pain G89.29 Active 34363736 Problem Perennial allergic rhinitis, unspecified allergic rhinitis trigger J30.89 Active 949615743 Problem Obstructive sleep apnea syndrome G47.33 Active 87324639 Problem Restless leg syndrome G25.81 Active 78966994 Problem Closed fracture of left patella, unspecified fracture morphology, sequela S82.002S Active 92373460 Problem Gastroesophageal reflux disease without esophagitis K21.9 Active 678645712 Problem Atrial fibrillation, unspecified type I48.91 Active 42848701 ALLERGIES No Information ENCOUNTERS Encounter Location Date Diagnosis [facility] [id number] [place] [address] 31064- 6802 Jun, [facility] [id number] [place] [address] 68427- 7531 May, Other chronic pain G89.29 ; Arthralgia, unspecified joint M25.50 and Primary insomnia F51.01 [facility] [id number] [place] [address] 52219- 8321 May, Urinary tract infection without hematuria, site unspecified N39.0 [facility] [id number] [place] [address] 05581- 7465 May, Bladder spasms N32.89 [facility] [id number] [place] [address] 08832- 7167 May, Primary insomnia F51.01 [facility] [id number] [place] [address] 62232- 7353 May, [facility] [id number] [place] [address] 23866- 9949 May, Primary insomnia F51.01 and Arthralgia, unspecified joint M25.50 [facility] [place] [id number] [place] [address] 34152- 4175 May, Other chronic pain G89.29 [facility] [address] [place] [id number] May, Nephrolithiasis N20.0 ; Cataract H26.9 and Macrocytic anemia D53.9 [place] [id number] [place] [address] 36275- 5051 May, [facility] [id number] [place] [address] 76463- 1052 Apr, [facility] [id number] [place] [address] 38973- 5081 Apr, [facility] [id number] [place] [address] 47036- 5589 Apr, Primary insomnia F51.01 [facility] [place] [address] [address] 0614 Apr, [facility] [id number] [place] [address] 44962- 5956 March, Other chronic pain G89.29 [facility] [address] [place] [id number] March, Arthralgia, unspecified joint M25.50 ; Abnormal urine sediment R82.90 ; Venous stasis dermatitis of both lower extremities I87.2 ; Stage 4 chronic kidney disease N18.4 and Cataract of right eye, unspecified cataract type H26.9 [facility] [id number] [place] [address] 14162- 3928 March, Primary insomnia F51.01 [facility] [address] [place] [id number] March, Cervicalgia M54.2 ; Acute pain of right shoulder M25.511 and Pain of left femur M89.8X5 [facility] [address] [place] [address] 89694- 7688 March, [facility] [id number] [place] [address] 38599- 0790 March, Other chronic pain G89.29 [facility] [id number] [place] [address] 64899- 8080 Feb, [facility] [address] [place] [id number] Feb, Leg swelling M79.89 [place] [id number] [place] [address] 14781- 8626 Feb, Primary insomnia F51.01 [facility] [address] [place] [id number] Feb, Fever in other diseases R50.81 and Intermittent left lower quadrant abdominal pain R10.32 [place] [id number] [place] [address] 64112- 7224 Feb, [facility] [id number] [place] [address] 19740- 2640 Feb, [facility] [place] [id number] [place] [address] 06992- 9432 Feb, Depression, unspecified depression type F32.9 ; Hypothyroidism, unspecified type E03.9 ; Type 2 diabetes mellitus without complication, unspecified long term care phlebotomist insulin use status E11.9 and Anxiety F41.9 [facility] [id number] [place] [address] 11492- 7273 Feb, Other chronic pain G89.29 [place] [address] [id number] Jan, Other chronic pain G89.29 [facility] [place] [id number] [place] [address] 56951- 7234 Jan, Bladder spasms N32.89 [facility] [id number] [place] [address] 25243- 2617 Jan, Bladder spasms N32.89 [facility] [place] [id number] [place] [address] 57651- 0223 Dec, Bladder spasms N32.89 [facility] [place] [id number] [place] [address] 77532- 0353 Dec, Depression, unspecified depression type F32.9 [place] [place] [id number] [place] [address] 98887- 8942 Dec, [facility] [address] [place] [id number] Dec, Hypothyroidism, unspecified type E03.9 ; Depression, unspecified depression type F32.9 ; Other chronic pain G89.29 ; Urinary retention R33.9 and Atrial fibrillation, unspecified type I48.91 [place] [id number] [place] [address] [id number] Dec, [place] [id number] [place] [address] [id number] Dec, Other chronic pain G89.29 [facility] [id number] [id number] Nov, [facility] [id number] [place] [address] [id number] Nov, Other chronic pain G89.29 [facility] [id number] [place] [address] 21749- 7043 Nov, Other chronic pain G89.29 [facility] [id number] [place] [address] 94244- 5880 Nov, [facility] [id number] [place] [address] 907165- 3725 Nov, [facility] [id number] [place] [address] 11304- 0382 Nov, Other chronic pain G89.29 [facility] [id number] [place] [address] 74979- 6081 Nov, Other chronic pain G89.29 [facility] [address] [place] [address] 38453- 2221 Oct, [facility] [address] [place] [address] 70407- 6626 Oct, Other chronic pain G89.29 [facility] [address] [place] [id number] Oct, Weakness R53.1 ; Macrocytic anemia D53.9 ; Discolored skin L81.9 ; Other chronic pain G89.29 ; Dysuria R30.0 and Hayes catheter in place Z92.89 [facility] [address] [place] [address] 509489- 7740 Oct, Other chronic pain G89.29 [facility] [id number] [place] [address] [id number] Sep, [facility] [address] [place] [address] [id number]- 7746 Sep, [facility] [address], [place] [address]- 9779 Sep, [facility] [id number] [place] [address] [id number] Sep, [facility] [id number] [place] [address] [id number] Sep, Other chronic pain G89.29 [facility] [id number] [place] [address] 58058- 7576 Sep, [facility] [id number] [place] [address] [id number] Sep, Other chronic pain G89.29 [facility] [address] [place] [id number] Sep, Chronic urinary tract infection N39.0 ; Other chronic pain G89.29 ; Chronic kidney disease (CKD), unspecified stage N18.9 ; Type 2 diabetes mellitus without complication, unspecified long term care phlebotomist insulin use status E11.9 ; Hypothyroidism, unspecified type E03.9 ; Depression, unspecified depression type F32.9 ; Cataract H26.9 ; Obstructive sleep apnea syndrome G47.33 ; Atrial fibrillation, unspecified type I48.91 ; History of femur fracture Z87.81 and Hayes catheter in place Z92.89 [facility] [address] [address]- 7073 Sep, [facility] [id number] [place] [address] 60708- 2971 Aug, [facility] [id number] [place] [address] 00737- 6024 Aug, Other chronic pain G89.29 [facility] [id number] [place] [address] 772873- 8265 Aug, [facility] [id number] [place] [address] 243433- 7035 Aug, [facility] [id number] [place] [address] [id number] Aug, [facility] [address] [address]- 2137 Aug, [facility] [id number] [place] [address] 12537 2546 Aug, Type 2 diabetes mellitus without complication, unspecified long term care phlebotomist insulin use status E11.9 [facility] [id number] [place] [address] 98255- 2912 Aug, Other chronic pain G89.29 [facility] [address] [address]- 2415 18 Aug, 2017 [facility] [id number] [place] [address] 36913- 1037 16 Aug, 2017 [facility] [id number] [place] [address] 52031 2543 22 Jul, 2017 Other chronic pain G89.29 [facility] [address] [place] [address] 28908 2546 19 Jul, 2017 [facility] [address] [place] [address] 52639 2546 19 Jul, 2017 Dark brown urine R82.99 [facility] [address] [address] 2546 19 Jul, 2017 Dark brown urine R82.99 [facility] [address] [address] 2546 14 Jul, 2017 [facility] [address], [place] [address] 2543 Jun, Other chronic pain G89.29 [facility] [address], [place] [address] 2546 Jun, Type 2 diabetes mellitus without complication, unspecified long term care phlebotomist insulin use status E11.9 [facility] [address] [address] 2546 May, she Miranda B37.2 [place] [address] [address]- 7875 May, Other chronic pain G89.29 [place] [id number] [place] [address] 32369- 0245 May, [place] [id number] [place] [address] 93557- 5513 May, [place] [id number] [place] [address] 17962- 9883 May, Candidiasis, intertrigo B37.2 [place] [id number] [place] [address] 45829- 0982 May, Atrial fibrillation, unspecified type I48.91 [place] [id number] [place] [address] 46201- 8010 May, Hypothyroidism, unspecified type E03.9 and Decreased renal function N28.9 [place] [id number] [place] [address] 59821- 1264 May, Type 2 diabetes mellitus without complication, unspecified long term care phlebotomist insulin use status E11.9 [place] [place] [id number] [place] [address] 94095- 6392 May, Dental examination Z01.20 [place] [id number] [place] [address] 54849- 5025 May, Chronic kidney disease (CKD), unspecified stage N18.9 ; Type 2 diabetes mellitus without complication, unspecified senior living insulin use status E11.9 ; Hypothyroidism, unspecified type E03.9 ; Depression, unspecified depression type F32.9 ; Anemia, unspecified type D64.9 and Ulcer L98.499 [place] [address] [place] [address] 04523- 2969 May, [place] [id number] [place] [address] 89628- 9763 Apr, Other chronic pain G89.29 [place] [address], [place] [address]- 0330 Apr, Other chronic pain G89.29 [facility] [address] [address]- 4554 March, [facility] [address], [place] [address]- 8727 March, [facility] [id number] [place] [address] 29462- 3394 March, [facility] [id number] [place] [address] 56391- 0641 March, Other chronic pain G89.29 [facility] [address] [place] [address] 72054- 5871 March, [facility] [id number] [place] [address] 67599- 2042 Feb, [facility] [address] [place] [address] 47993- 4660 Feb, Type 2 diabetes mellitus without complication, unspecified senior living insulin use status E11.9 ; Candidiasis, intertrigo B37.2 ; Decubitus ulcer of left buttock, unstageable L89.320 and Pressure ulcer of contiguous region involving right buttock and hip, unspecified ulcer stage L89.40 [facility] [address], [place] [address]- 8468 Feb, Atrial fibrillation, unspecified type I48.91 [facility] [address], [place] [address]- 6288 Feb, [facility] [id number] [place] [address] 60817- 7266 Feb, [facility] [address], [place] [address]- 1585 Feb, Other chronic pain G89.29 [facility] [address] [place] [address] 28722- 0086 Jan, Other chronic pain G89.29 [facility] [address], [place] [address]- 4729 Dec, [facility] [id number] [place] [address] 24346- 7654 Dec, Lethargy R53.83 [facility] [id number] [place] [address] 30943- 6506 17 Dec, 2016 [facility] [address] [place] [address] 97372- 2883 Dec, Other chronic pain G89.29 [facility] [id number] [place] [address] 99643- 9847 Nov, [facility] [id number] [place] [address] 01451- 6788 Nov, [facility] [id number] [place] [address] 72202- 6613 Nov, Other chronic pain G89.29 [facility] [address] [place] [address] 88931- 0045 Nov, [facility] [id number] [place] [address] 40731- 3053 Nov, [facility] [address], [place] [address]- 7160 Nov, [facility] [id number] [place] [address] 57294- 9469 Oct, Cough R05 [facility] [id number] [place] [address] 26514- 2959 Oct, Urinary tract infection, site not specified N39.0 [facility] [address], [place] [address]- 8441 Oct, Other chronic pain G89.29 [facility] [address] [place] [address] 31368- 8004 Oct, Type 2 diabetes mellitus without complication, unspecified long term care phlebotomist insulin use status E11.9 ; Other chronic [...] J30.89 ; Nausea R11.0 and Candidiasis B37.9 [place] [address] 94109- 7252 Oct, [place] [address] 64316- 4491 Oct, [place] [address] 28970- 8015 Oct, [place] [address] 13337- 0051 Oct, Chronic kidney disease (CKD), unspecified stage N18.9 [place] [address] 97461- 3660 Oct, [place] [address] 95384- 4016 Sep, Other chronic pain G89.29 [place] [address] 67091- 8827 Sep, Chronic kidney disease (CKD), unspecified stage N18.9 and Senile cataract of right eye, unspecified age-related cataract type H25.9 [place] [address] 36999- 7999 Sep, [place] [address] 13198- 1765 Sep, [place] [address], [place] [address]- 6630 Sep, [facility] [address], [place] [address]- 1006 Sep, [facility] [address], [place] [address]- 8691 Sep, [facility] [id number] [place] [address] 17086- 4934 Aug, [facility] [address], [place] [address]- 7681 Aug, [facility] [id number] [place] [address] 89821- 7159 Aug, [facility] [address] [address]- 3775 18 Aug, 2016 Encounter to establish care [...] [facility] [address] [address]- 9034 Aug, [facility] [id number] [address]- 4916 Aug, Urinary incontinence, unspecified type R32 [facility] [address], [place] [address]- 6333 Aug, [facility] [id number] [address]- 7747 Jul, [facility] [address] [place] [id number] Jul, Type 2 diabetes mellitus without complication, unspecified long term care phlebotomist insulin use status E11.9 ; Chronic kidney [...] E03.9 and Constipation, unspecified constipation type K59.00 [place] [address] 55897- 5525 Jul, [place] [id number] [place] [address] 90511- 8605 Jul, [facility] [address] [id number] Jul, Anemia, unspecified type D64.9 ; Acute renal failure, unspecified acute renal failure type N17.9 ; Other chronic pain G89.29 ; Obstructive sleep apnea syndrome G47.33 and Type 2 diabetes mellitus without complication, unspecified senior living insulin use status E11.9 [place] [id number] [place] [address] 76308- 2264 13 Jul, 2016 [place] [id number] [place] [address] 34676- 1862 Jul, [place] [id number] [place] [address] 59611- 6345 Jul, [place] [id number] [place] [address] 01468- 9723 Jul, [place] [id number] [place] [address] 92225- 3690 Jul, [facility] [address] [place] [id number] Jun, Other chronic pain G89.29 ; Hayes catheter in place Z92.89 ; Chronic kidney disease (CKD), unspecified stage N18.9 and Blisters of multiple sites R23.8 [facility] [address] [id number] [place] [address]- 6764 Jun, [facility] [address] [id number] [place] [address]- 0699 Jun, [facility] [address] [id number] [place] [address]- 1495 Jun, [facility] [address] [id number] [place] [address] Jun, [facility] [address] [id number] [place] [address] Jun, [facility] [address] [id number] [place] [address] Jun, [facility] [address] [id number] [place] [address] Jun, [facility] [address] [id number] [place] [address] Jun, [facility] [address] [facility] [id number] [place] [address] Jun, [facility] [address] [facility] [id number] [place] [address] Jun, [facility] [address] [id number] [place] [address] Jun, [facility] [address] [id number] [address] May, [facility] [address] [facility] [id number] [place] [address] May, [facility] [address] [facility] [id number] [address] May, Other chronic pain G89.29 [facility] [address] [place], [place] [id number] May, Encounter to establish care Z76.89 ; Type 2 diabetes mellitus without complication, unspecified senior living insulin use status E11.9 ; Hypothyroidism, unspecified [...] 1 tablet 6h March, 28 days Active RESULTS No Results PROCEDURES [...] Acute Kidney Injury 08/05/16 Hospitalization History UTI, Sepsis--[facility] Hospitalization History Chest pain/SOB/A-fib 02/2017 Hospitalization History Chest pain-[facility] 04/13/17 Hospitalization History UTI, respiratory failure, altered mental status-[facility] 09/13/17
--- OUTSIDE RECORDS SUMMARY | 2018-09-17 19:25 | XMS REPORT ---
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 Outside Name Role Phone LATONYA KIM Unavailable PROBLEMS Type Condition ICD9-CM Code KED15-LP Code Onset Dates Condition Status SNOMED Code Problem Ulcer L98.499 Active 669306612 Problem Chronic fatigue R53.82 Active 78704595 Problem Decreased renal function N28.9 Active 18948568 Problem Nephrolithiasis N20.0 Active 46980334 Problem Chronic kidney disease (CKD), unspecified stage N18.9 Active 417789549 Problem Venous stasis dermatitis of both lower extremities I87.2 Active 64339846 Problem Urinary incontinence, unspecified type R32 Active 795985691 Problem Morbid obesity due to excess calories E66.01 Active 808626750 Problem Anxiety F41.9 Active 36855109 Problem Bladder spasms N32.89 Active 687169662 Problem Stage 4 chronic kidney disease N18.4 Active 677924864 Problem Primary insomnia F51.01 Active 1623710 Problem Hypothyroidism, unspecified type E03.9 Active 07552528 Problem Cataract H26.9 Active 746099128 Problem Type 2 diabetes mellitus without complication, 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.9 Active 39312743 Problem Depression, unspecified depression type F32.9 Active 61442108 Problem Other chronic pain G89.29 Active 67952698 Problem Perennial allergic rhinitis, unspecified allergic rhinitis trigger J30.89 Active 529551564 Problem Obstructive sleep apnea syndrome G47.33 Active 93479594 Problem Restless leg syndrome G25.81 Active 72416699 Problem Closed fracture of left patella, unspecified fracture morphology, sequela S82.002S Active 82963931 Problem Gastroesophageal reflux disease without esophagitis K21.9 Active 083393630 Problem Atrial fibrillation, unspecified type I48.91 Active 61942067 ALLERGIES No Information ENCOUNTERS Encounter Location Date Diagnosis [facility] [id number] [place] [address] 81637- 4784 Jun, [place] [id number] [place] [address] 02549- 0548 May, Other chronic pain G89.29 ; Arthralgia, unspecified joint M25.50 and Primary insomnia F51.01 [place] [id number] [place] [address] 12218- 3067 May, Urinary tract infection without hematuria, site unspecified N39.0 [facility] [id number] [place] [address] 54890- 8234 May, Bladder spasms N32.89 [facility] [id number] [place] [address] 02154- 2063 May, Primary insomnia F51.01 [facility] [id number] [place] [address] 39154- 5573 May, [facility] [id number] [place] [address] 35648- 3782 May, Primary insomnia F51.01 and Arthralgia, unspecified joint M25.50 [facility] [id number] [place] [address] 86026- 2894 May, Other chronic pain G89.29 [facility] [address] [place] [id number] May, Nephrolithiasis N20.0 ; Cataract H26.9 and Macrocytic anemia D53.9 [place] [address] [place] [address] 18381- 6930 May, [facility] [id number] [place] [address] 85116- 0485 Apr, [facility] [id number] [place] [address] 95488- 6520 Apr, [facility] [id number] [place] [address] 51442- 2370 Apr, Primary insomnia F51.01 [facility] [address], [place] [address] 2027 Apr, [place] [id number] [place] [address] 52421- 5498 March, Other chronic pain G89.29 [facility] [address] [place] [id number] March, Arthralgia, unspecified joint M25.50 ; Abnormal urine sediment R82.90 ; Venous stasis dermatitis of both lower extremities I87.2 ; Stage 4 chronic kidney disease N18.4 and Cataract of right eye, unspecified cataract type H26.9 [facility] [id number] [place] [address] 23195- 2980 March, Primary insomnia F51.01 [facility] [address] [place] [id number] March, Cervicalgia M54.2 ; Acute pain of right shoulder M25.511 and Pain of left femur M89.8X5 [place] [address] [place] [address] 66863- 6369 March, [facility] [id number] [place] [address] 62619- 9479 March, Other chronic pain G89.29 [place] [address] [place] [address] 41786- 4090 Feb, [facility] [address] [place] [id number] Feb, Leg swelling M79.89 [place] [address] [place] [address] 77752- 8927 Feb, Primary insomnia F51.01 [facility] [address] [place] [id number] Feb, Fever in other diseases R50.81 and Intermittent left lower quadrant abdominal pain R10.32 [place] [address] [place] [address] 48322- 9918 Feb, [place] [address] [place] [address] 24763- 7582 Feb, [place] [id number] [place] [address] 45773- 9589 Feb, Depression, unspecified depression type F32.9 ; Hypothyroidism, unspecified type E03.9 ; Type 2 diabetes mellitus without complication, 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.9 and Anxiety F41.9 [place] [id number] [place] [address] 27355- 7596 Feb, Other chronic pain G89.29 [facility] [address] [id number] Jan, Other chronic pain G89.29 [facility] [id number] [place] [address] 50899- 8643 Jan, Bladder spasms N32.89 [facility] [id number] [place] [address] 79920- 8476 Jan, Bladder spasms N32.89 [place] [id number] [place] [address] 78356- 6915 Dec, Bladder spasms N32.89 [facility] [id number] [place] [address] 09576- 2312 Dec, Depression, unspecified depression type F32.9 [place] [id number] [place] [address] 58126- 2761 Dec, [facility] [address] [place] [id number] Dec, Hypothyroidism, unspecified type E03.9 ; Depression, unspecified depression type F32.9 ; Other chronic pain G89.29 ; Urinary retention R33.9 and Atrial fibrillation, unspecified type I48.91 [place] [id number] [place] [address] [id number] Dec, [place] [id number] [place] [address] [id number] Dec, Other chronic pain G89.29 [facility] [address] [id number] Nov, [facility] [id number] [place] [address] [id number] Nov, Other chronic pain G89.29 [facility] [id number] [place] [address] 23038- 4744 Nov, Other chronic pain G89.29 [facility] [id number] [place] [address] 19165- 0940 Nov, [facility] [id number] [place] [address] 385545- 0055 Nov, [facility] [id number] [place] [address] 98037- 3547 Nov, Other chronic pain G89.29 [facility] [id number] [place] [address] 75502- 8933 Nov, Other chronic pain G89.29 [facility] [address] [place] [address] 09942- 3495 Oct, [facility] [address] [place] [address] 84111- 3600 Oct, Other chronic pain G89.29 [facility] [address] [place] [id number] Oct, Weakness R53.1 ; Macrocytic anemia D53.9 ; Discolored skin L81.9 ; Other chronic pain G89.29 ; Dysuria R30.0 and Hayes catheter in place Z92.89 [facility] [address] [place] [address] 287873- 4158 Oct, Other chronic pain G89.29 [facility] [id number] [place] [address] [id number] Sep, [facility] [address] [place] [address] 17652019- 3637 Sep, [facility] [address], [place] [address]- 8241 Sep, [facility] [id number] [place] [address] [id number] Sep, [facility] [id number] [place] [address] [id number] Sep, Other chronic pain G89.29 [facility] [id number] [place] [address] 03420- 7906 Sep, [facility] [id number] [place] [address] [id number] Sep, Other chronic pain G89.29 [facility] [address] [place] [id number] Sep, Chronic urinary tract infection N39.0 ; Other chronic pain G89.29 ; Chronic kidney disease (CKD), unspecified stage N18.9 ; Type 2 diabetes mellitus without complication, 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.9 ; Hypothyroidism, unspecified type E03.9 ; Depression, unspecified depression type F32.9 ; Cataract H26.9 ; Obstructive sleep apnea syndrome G47.33 ; Atrial fibrillation, unspecified type I48.91 ; History of femur fracture Z87.81 and Hayes catheter in place Z92.89 [facility] [address], [place] [address]- 9095 Sep, [facility] [address] [place] [address] 90495- 7257 Aug, [facility] [address] [place] [address] 23482- 0166 Aug, Other chronic pain G89.29 [facility] [id number] [place] [address] 844196- 5394 Aug, [facility] [address] [place] [address] 917810- 8092 Aug, [facility] [id number] [place] [address] [phone] Aug, [facility] [address], [place] [address]- 1296 Aug, [facility] [id number] [place] [address] 36877 2546 Aug, Type 2 diabetes mellitus without complication, 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.9 [facility] [address] [place] [address] 17407- 1539 Aug, Other chronic pain G89.29 [facility] [address], [place] [address]- 0765 18 Aug, 2017 [facility] [id number] [place] [address] 54461- 7809 [address], [address] [facility] [address] [place] [address] 95180 2542 22 Jul, 2017 Other chronic pain G89.29 [facility] [address] [place] [address] 69372 2546 19 Jul, 2017 [facility] [address] [place] [address] 43307 2546 19 Jul, 2017 Dark brown urine R82.99 [facility] [address], [place] [address] 2546 19 Jul, 2017 Dark brown urine R82.99 [facility] [address], [place] [address] 2546 14 Jul, 2017 [facility] [address], [place] [address] 2547 Jun, Other chronic pain G89.29 [facility] [address], [place] [address] 2546 Jun, Type 2 diabetes mellitus without complication, 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.9 [facility] [address], [place] [address] 2546 May, she Miranda B37.2 [place] [address], [place] [address]- 2633 May, Other chronic pain G89.29 [facility] [facility] [id number] [place] [address] 82971- 0537 May, [place] [id number] [place] [address] 05970- 5605 May, [place] [id number] [place] [address] 14034- 0724 May, Candidiasis, intertrigo B37.2 [place] [id number] [place] [address] 98310- 6034 May, Atrial fibrillation, unspecified type I48.91 [place] [id number] [place] [address] 73233- 3037 May, Hypothyroidism, unspecified type E03.9 and Decreased renal function N28.9 [place] [id number] [place] [address] 77628- 7424 May, Type 2 diabetes mellitus without complication, 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.9 [facility] [id number] [place] [address] 40674- 5883 May, Dental examination Z01.20 [place] [id number] [place] [address] 39931- 9305 May, Chronic kidney disease (CKD), unspecified stage N18.9 ; Type 2 diabetes mellitus without complication, unspecified correction insulin use status E11.9 ; Hypothyroidism, unspecified type E03.9 ; Depression, unspecified depression type F32.9 ; Anemia, unspecified type D64.9 and Ulcer L98.499 [place] [address] [place] [address] 77139- 4473 May, [place] [address] [place] [address] 40987- 6037 Apr, Other chronic pain G89.29 [place] [address], [place] [address]- 5382 Apr, Other chronic pain G89.29 [facility] [address], [place] [address]- 2125 March, [facility] [address] [address]142 March, [facility] [id number] [place] [address] 62614- 4199 March, [facility] [address] [place] [address] 50125- 5825 March, Other chronic pain G89.29 [facility] [address] [place] [address] 30382- 3636 March, [facility] [id number] [place] [address] 44334- 4849 Feb, [facility] [address] [place] [address] 57809- 5824 Feb, Type 2 diabetes mellitus without complication, unspecified correction insulin use status E11.9 ; Candidiasis, intertrigo B37.2 ; Decubitus ulcer of left buttock, unstageable L89.320 and Pressure ulcer of contiguous region involving right buttock and hip, unspecified ulcer stage L89.40 [facility] [address], [place] [address]- 7024 Feb, Atrial fibrillation, unspecified type I48.91 [facility] [address], [place] [address]- 8974 Feb, [facility] [id number] [place] [address] 44952- 4028 Feb, [facility] [address], [place] [address]- 9041 Feb, Other chronic pain G89.29 [facility] [address] [place] [address] 87773- 0948 Jan, Other chronic pain G89.29 [facility] [address], [place] [address]- 5100 Dec, [facility] [id number] [place] [address] 26838- 8059 Dec, Lethargy R53.83 [facility] [id number] [place] [address] 40673- 2226 17 Dec, 2016 [facility] [address] [place] [address] 80064- 8902 Dec, Other chronic pain G89.29 [facility] [id number] [place] [address] 16022- 8793 Nov, [facility] [id number] [place] [address] 21472- 5158 Nov, [facility] [id number] [place] [address] 24004- 9364 Nov, Other chronic pain G89.29 [facility] [address] [place] [address] 99887- 7767 Nov, [facility] [address] [place] [address] 91873- 2305 Nov, [facility] [address], [place] [address]- 6960 Nov, [facility] [address] [place] [address] 08730- 7812 Oct, Cough R05 [facility] [address] [place] [address] 28908- 3412 Oct, Urinary tract infection, site not specified N39.0 [facility] [address], [place] [address]- 5137 Oct, Other chronic pain G89.29 [facility] [address] [place] [address] 73020- 4256 Oct, Type 2 diabetes mellitus without complication, 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.9 ; Other chronic [...] J30.89 ; Nausea R11.0 and Candidiasis B37.9 [place] [address] 25656- 5078 Oct, [place] [address] 20868- 3282 Oct, [place] [address] 62276- 5924 Oct, [place] [address] 86217- 3260 Oct, Chronic kidney disease (CKD), unspecified stage N18.9 [place] [address] 03148- 6626 Oct, [place] [address] 98529- 8498 Sep, Other chronic pain G89.29 [place] [address] 27932- 8368 Sep, Chronic kidney disease (CKD), unspecified stage N18.9 and Senile cataract of right eye, unspecified age-related cataract type H25.9 [place] [address] 32708- 1574 Sep, [place] [address] 24555- 6306 Sep, [place] [address], [place] [address]- 4258 Sep, [facility] [address], [place] [address]- 2764 Sep, [facility] [address] [address] 5518 Sep, [facility] [address] [place] [address] 19465- 3854 Aug, [facility] [address], [place] [address]- 4743 Aug, [facility] [address] [place] [address] 82966- 8744 Aug, [facility] [address], [place] [address]- 8372 18 Aug, 2016 Encounter to establish care Z76.89 ; Other chronic pain G89.29 ; Chronic kidney disease (CKD), unspecified stage N18.9 ; Obstructive sleep apnea syndrome G47.33 ; Type 2 diabetes mellitus without complication, unspecified correction insulin use status E11.9 ; Urinary incontinence, unspecified type R32 ; Depression, unspecified depression type F32.9 ; History of femur fracture Z87.81 ; History of fractured kneecap Z87.81 ; Hypothyroidism , unspecified type E03.9 ; Cataract H26.9 and Gastroesophageal reflux disease without esophagitis K21.9 [facility] [address], [place] [address]- 1258 Aug, [facility] [id number], [place] [address]- 9576 Aug, Urinary incontinence, unspecified type R32 [facility] [address], [place] [address]- 8935 Aug, [facility] [id number], [place] [address]- 7429 Jul, [facility] [address] [place] [id number] Jul, Type 2 diabetes mellitus without complication, 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.9 ; Chronic kidney [...] E03.9 and Constipation, unspecified constipation type K59.00 [place] [address] 31164- 3934 Jul, [place] [id number] [place] [address] 33847- 6146 Jul, [facility] [address] [id number] Jul, Anemia, unspecified type D64.9 ; Acute renal failure, unspecified acute renal failure type N17.9 ; Other chronic pain G89.29 ; Obstructive sleep apnea syndrome G47.33 and Type 2 diabetes mellitus without complication, unspecified correction insulin use status E11.9 [place] [id number] [place] [address] 70281- 1760 13 Jul, 2016 [place] [id number] [place] [address] 73910- 2053 Jul, [place] [id number] [place] [address] 48413- 6955 Jul, [place] [id number] [place] [address] 43498- 8073 Jul, [place] [id number] [place] [address] 70956- 7283 Jul, [facility] [address] [place] [id number] Jun, Other chronic pain G89.29 ; Hayes catheter in place Z92.89 ; Chronic kidney disease (CKD), unspecified stage N18.9 and Blisters of multiple sites R23.8 [facility] [address] [id number] [place] [address]- 3973 Jun, [facility] [address] [id number] [place] [address]- 0398 Jun, [facility] [address] [id number] [place] [address]- 5336 Jun, [facility] [address] [id number] [place] [address]- 0659 Jun, [facility] [address] [id number] [place] [address]- 1757 Jun, [facility] [address] [id number] [place] [address]- 4138 Jun, [facility] [address] [id number] [place] [address]- 7049 Jun, [facility] [address] [id number] [place] [address]- 3141 Jun, [facility] [address] [facility] [id number] [place] [address]- 6301 Jun, [facility] [address] [facility] [id number] [place] [address]- 8166 Jun, [facility] [address] [id number] [place] [address]- 9699 Jun, [facility] [address] [id number] [address] 2543 May, [facility] [address] [facility] [id number] [place] [address]- 0446 May, [facility] [address] [facility] [id number] [address]- 2540 May, Other chronic pain G89.29 [facility] [address] [place] [id number] May, Encounter to establish care Z76.89 ; Type 2 diabetes mellitus without complication, unspecified correction insulin use status E11.9 ; Hypothyroidism, unspecified [...] Injury 08/05/16 Hospitalization History UTI, Sepsis--[facility] Hospitalization History Chest pain/SOB/A-fib 02/2017 Hospitalization History Chest pain-[facility] 04/13/17 Hospitalization History UTI, respiratory failure, altered mental status-[facility] 09/13/17
--- OUTSIDE RECORDS SUMMARY | 2018-09-17 19:26 | XMS REPORT ---
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 Name Role Phone LATONYA KIM Unavailable PROBLEMS Type Condition ICD9-CM Code OSV26-US Code Onset Dates Condition Status SNOMED Code Problem Ulcer L98.499 Active 498414454 Problem Chronic fatigue R53.82 Active 50378513 Problem Decreased renal function N28.9 Active 69433005 Problem Nephrolithiasis N20.0 Active 59049057 Problem Chronic kidney disease (CKD), unspecified stage N18.9 Active 564747624 Problem Venous stasis dermatitis of both lower extremities I87.2 Active 16990050 Problem Urinary incontinence, unspecified type R32 Active 739948857 Problem Morbid obesity due to excess calories E66.01 Active 421437069 Problem Anxiety F41.9 Active 85514908 Problem Bladder spasms N32.89 Active 387280058 Problem Stage 4 chronic kidney disease N18.4 Active 274463965 Problem Primary insomnia F51.01 Active 6588424 Problem Hypothyroidism, unspecified type E03.9 Active 33657568 Problem Cataract H26.9 Active 278213772 Problem Type 2 diabetes mellitus without complication, unspecified intermediate project manager insulin use status E11.9 Active 18566121 Problem Depression, unspecified depression type F32.9 Active 25210484 Problem Other chronic pain G89.29 Active 18858600 Problem Perennial allergic rhinitis, unspecified allergic rhinitis trigger J30.89 Active 247150465 Problem Obstructive sleep apnea syndrome G47.33 Active 18033358 Problem Restless leg syndrome G25.81 Active 83190792 Problem Closed fracture of left patella, unspecified fracture morphology, sequela S82.002S Active 42828102 Problem Gastroesophageal reflux disease without esophagitis K21.9 Active 875583015 Problem Atrial fibrillation, unspecified type I48.91 Active 88769914 ALLERGIES No Information ENCOUNTERS Encounter Location Date Diagnosis [facility] [id number] [place] [address] 82829- 3581 May, Other chronic pain G89.29 ; Arthralgia, unspecified joint M25.50 and Primary insomnia F51.01 [facility] [id number] [place] [address] 94093- 6201 May, Urinary tract infection without hematuria, site unspecified N39.0 [facility] [id number] [place] [address] 66535- 4772 May, Bladder spasms N32.89 [facility] [id number] [place] [address] 36550- 9331 May, Primary insomnia F51.01 [facility] [id number] [place] [address] 13767- 5047 May, [facility] [id number] [place] [address] 07852- 8589 May, Primary insomnia F51.01 and Arthralgia, unspecified joint M25.50 [facility] [id number] [place] [address] 86633- 7739 May, Other chronic pain G89.29 [facility] [address] [place] [id number] May, Nephrolithiasis N20.0 ; Cataract H26.9 and Macrocytic anemia D53.9 [facility] [id number] [place] [address] 93505- 9112 May, [facility] [id number] [place] [address] 53362- 8044 Apr, [facility] [id number] [place] [address] 43803- 7817 Apr, [facility] [id number] [place] [address] 32422- 4676 Apr, Primary insomnia F51.01 [facility] [id number] [place] [address] 05015- 0261 Apr, [facility] [address] [address] 8880 March, Other chronic pain G89.29 [facility] [address] [place] [id number] March, Arthralgia, unspecified joint M25.50 ; Abnormal urine sediment R82.90 ; Venous stasis dermatitis of both lower extremities I87.2 ; Stage 4 chronic kidney disease N18.4 and Cataract of right eye, unspecified cataract type H26.9 [facility] [address] [place] [address] 40373- 5202 March, Primary insomnia F51.01 [facility] [address] [place] [id number] March, Cervicalgia M54.2 ; Acute pain of right shoulder M25.511 and Pain of left femur M89.8X5 [facility] [id number] [place] [address] 53116- 1356 March, [facility] [id number] [place] [address] 93853- 3455 March, Other chronic pain G89.29 [facility] [id number] [place] [address] 75025- 7499 Feb, [facility] [address] [place] [id number] Feb, Leg swelling M79.89 [facility] [address] [place] [address] 15472- 4608 Feb, Primary insomnia F51.01 [facility] [address] [place] [id number] Feb, Fever in other diseases R50.81 and Intermittent left lower quadrant abdominal pain R10.32 [facility] [address] [place] [address] 65603- 8520 Feb, [facility] [address] [place] [address] 54055- 8466 Feb, [facility] [address] [address] 4819 Feb, Depression, unspecified depression type F32.9 ; Hypothyroidism, unspecified type E03.9 ; Type 2 diabetes mellitus without complication, unspecified chcf insulin use status E11.9 and Anxiety F41.9 [facility] [address] [address] 5221 Feb, Other chronic pain G89.29 [facility] [id number] [place] [address] [id number] Jan, Other chronic pain G89.29 [facility] [id number] [place] [address] 68087- 6579 Jan, Bladder spasms N32.89 [facility] [id number] [place] [address] 42708- 6543 Jan, Bladder spasms N32.89 [facility] [id number] [place] [address] 48874- 2188 Dec, Bladder spasms N32.89 [facility] [id number] [place] [address] 02410- 9298 Dec, Depression, unspecified depression type F32.9 [facility] [address] [address]- 5579 Dec, [facility] [address] [place] [id number] Dec, Hypothyroidism, unspecified type E03.9 ; Depression, unspecified depression type F32.9 ; Other chronic pain G89.29 ; Urinary retention R33.9 and Atrial fibrillation, unspecified type I48.91 [facility] [id number] [place] [address] [phone] Dec, [facility] [id number] [place] [address] [phone] Dec, Other chronic pain G89.29 [facility] [id number] [place] [address] [phone] Nov, [facility] [id number] [place] [id number] Nov, Other chronic pain G89.29 [facility] [address] [place] [address] 23652- 5296 Nov, Other chronic pain G89.29 [facility] [address] [place] [address] 27909- 9799 Nov, [facility] [id number] [place] [address] 45646- 6901 Nov, [facility] [id number] [place] [address] 973397- 4654 Nov, Other chronic pain G89.29 [facility] [id number] [place] [address] 42915- 2400 Nov, Other chronic pain G89.29 [facility] [id number] [place] [address] 72767- 2030 Oct, [facility] [id number] [place] [address] 93955- 3549 Oct, Other chronic pain G89.29 [facility] [address] [place] [id number] Oct, Weakness R53.1 ; Macrocytic anemia D53.9 ; Discolored skin L81.9 ; Other chronic pain G89.29 ; Dysuria R30.0 and Hayes catheter in place Z92.89 [facility] [address] [place] [address] [id number]- 6725 Oct, Other chronic pain G89.29 [facility] [id number] [place] [address] [phone] Sep, [facility] [id number] [place] [address] [phone] Sep, [facility] [address] [place] [address] [phone]- 5750 Sep, [facility] [id number] [id number] Sep, [facility] [id number] [place] [address] [phone] Sep, Other chronic pain G89.29 [facility] [id number] [place] [address] 21140- 0736 Sep, [facility] [id number] [place] [address] [id number] Sep, Other chronic pain G89.29 [facility] [address] [place] [id number] Sep, Chronic urinary tract infection N39.0 ; Other chronic pain G89.29 ; Chronic kidney disease (CKD), unspecified stage N18.9 ; Type 2 diabetes mellitus without complication, unspecified intermediate project manager insulin use status E11.9 ; Hypothyroidism, unspecified type E03.9 ; Depression, unspecified depression type F32.9 ; Cataract H26.9 ; Obstructive sleep apnea syndrome G47.33 ; Atrial fibrillation, unspecified type I48.91 ; History of femur fracture Z87.81 and [address] catheter in place Z92.89 [facility] [id number] [place] [address] [phone]- 7907 Sep, [facility] [id number] [place] [address] [phone] Aug, [facility] [id number] [place] [address] [phone]- 7408 Aug, Other chronic pain G89.29 [facility] [address] [address]243 Aug, [facility] [id number] [place] [address] [phone] Aug, [facility] [id number] [place] [address] [phone] Aug, [facility] [id number] [place] [address] 19164- 9276 23 Aug, 2017 [facility] [address], [place] [address] 4241 Aug, Type 2 diabetes mellitus without complication, unspecified intermediate project manager insulin use status E11.9 [facility] [address], [place] [address]- 4746 19 Aug, 2017 Other chronic pain G89.29 [facility] [id number] [place] [address] 52878 2546 18 Aug, 2017 [facility] [address] [place] [address] 61043- 3371 16 Aug, 2017 [facility] [id number] [place] [address] 29941- 1644 22 Jul, 2017 Other chronic pain G89.29 [facility] [address], [place] [address] 2546 19 Jul, 2017 [facility] [address] [place] [address] 26288 2544 19 Jul, 2017 Dark brown urine R82.99 [facility] [id number] [place] [address] 52662 2546 19 Jul, 2017 Dark brown urine R82.99 [facility] [address], [place] [address] 2547 14 Jul, 2017 [facility] [address], [place] [address] 2547 Jun, Other chronic pain G89.29 [facility] [address] [address]- 3358 10 Jun, 2017 Type 2 diabetes mellitus without complication, unspecified chcf insulin use status E11.9 [facility] [address], [place] [address]- 6280 31 May, 2017 Candidiasis, intertrigo B37.2 [facility] [address], [place] [address]- 8500 May, Other chronic pain G89.29 [facility] [address], [place] [address]- 5008 May, [facility] [id number] [place] [address] 58530- 8568 May, [facility] [id number] [place] [address] 60102- 9871 May, Candidiasis, intertrigo B37.2 [facility] [id number] [place] [address] 14123- 8473 May, Atrial fibrillation, unspecified type I48.91 [facility] [id number] [place] [address] 35348- 0413 May, Hypothyroidism, unspecified type E03.9 and Decreased renal function N28.9 [place] [id number] [place] [address] 66272- 9603 May, Type 2 diabetes mellitus without complication, unspecified chcf insulin use status E11.9 [facility] [id number] [place] [address] 47556- 1349 May, Dental examination Z01.20 [facility] [id number] [place] [address] 28862- 5015 May, Chronic kidney disease (CKD), unspecified stage N18.9 ; Type 2 diabetes mellitus without complication, unspecified chcf insulin use status E11.9 ; Hypothyroidism, unspecified type E03.9 ; Depression, unspecified depression type F32.9 ; Anemia, unspecified type D64.9 and Ulcer L98.499 [facility] [address] [place] [address] 19435- 5595 May, [facility] [id number] [place] [address] 87949- 6888 Apr, Other chronic pain G89.29 [facility] [id number] [place] [address] 99612- 0750 Apr, Other chronic pain G89.29 [facility] [address], [place] [address]- 4528 March, [facility] [address], [place] [address]- 9662 March, [facility] [address], [place] [address]- 5025 March, [facility] [id number] [place] [address] 65218- 5029 March, Other chronic pain G89.29 [facility] [address] [place] [address] 17069- 1619 March, [facility] [address] [place] [address] 77701- 1821 Feb, [facility] [id number] [place] [address] 21062- 7020 Feb, Type 2 diabetes mellitus without complication, unspecified chcf insulin use status E11.9 ; Candidiasis, intertrigo B37.2 ; Decubitus ulcer of left buttock, unstageable L89.320 and Pressure ulcer of contiguous region involving right buttock and hip, unspecified ulcer stage L89.40 [facility] [address], [place] [address]- 5929 Feb, Atrial fibrillation, unspecified type I48.91 [facility] [address], [place] [address]- 9915 Feb, [facility] [address], [place] [address]- 7184 Feb, [facility] [id number] [place] [address] 10467- 2927 Feb, Other chronic pain G89.29 [facility] [address], [place] [address]- 7775 Jan, Other chronic pain G89.29 [facility] [id number] [address]- 1977 28 Dec, 2016 [facility] [address], [place] [address]- 8276 Dec, Lethargy R53.83 [facility] [address], [place] [address] 2546 17 Dec, 2016 [facility] [address] [place] [address] 79429- 7131 10 Dec, 2016 Other chronic pain G89.29 [facility] [address], [place] [address]- 6594 Nov, [facility] [address] [place] [address] 20461- 7193 Nov, [facility] [address], [place] [address]- 7287 Nov, Other chronic pain G89.29 [facility] [address], [place] [address]- 2362 Nov, [facility] [address], [place] [address]- 9197 Nov, [facility] [address], [place] [address]- 3229 Nov, [facility] [address], [place] [address]- 9800 Oct, Cough R05 [facility] [address], [place] [address]- 2151 Oct, Urinary tract infection, site not specified N39.0 [facility] [address], [place] [address]- 7796 16 Oct, 2016 Other chronic pain G89.29 [facility] [address], [place] [address]- 0160 15 Oct, 2016 Type 2 diabetes mellitus without complication, unspecified intermediate project manager insulin use status E11.9 ; Other chronic [...] J30.89 ; Nausea R11.0 and Candidiasis B37.9 [facility] [address] 35212- 5371 Oct, [facility] [address] 78495- 2856 Oct, [facility] [address] 02941- 3447 Oct, [facility] [address] 15135- 3144 Oct, Chronic kidney disease (CKD), unspecified stage N18.9 [facility] [address] 28661- 1152 Oct, [facility] [address] 82295- 3049 Sep, Other chronic pain G89.29 [facility] [id number] [place] [address] 67855- 1067 Sep, Chronic kidney disease (CKD), unspecified stage N18.9 and Senile cataract of right eye, unspecified age-related cataract type H25.9 [facility] [address] 27758- 7312 Sep, [facility] [address] 01038- 1687 Sep, [facility] [address] 70967- 7455 Sep, [facility] [id number] [address]- 4315 Sep, [facility] [address], [place] [address]- 0477 Sep, [facility] [address], [place] [address]- 0186 Aug, [facility] [address], [place] [address]- 7739 Aug, [facility] [address], [place] [address]- 0663 Aug, [facility] [address], [place] [address]- 2494 Aug, Encounter to establish care Z76.89 ; Other chronic pain G89.29 ; Chronic kidney disease (CKD), unspecified stage N18.9 ; Obstructive sleep apnea syndrome G47.33 ; Type 2 diabetes mellitus without complication, unspecified chcf insulin use status E11.9 ; Urinary incontinence, unspecified type R32 ; Depression, unspecified depression type F32.9 ; History of femur fracture Z87.81 ; History of fractured kneecap Z87.81 ; Hypothyroidism , unspecified type E03.9 ; Cataract H26.9 and Gastroesophageal reflux disease without esophagitis K21.9 [facility] [address], [place] [address]- 8955 14 Aug, 2016 [facility] [id number], [place] [address]- 5199 Aug, Urinary incontinence, unspecified type R32 [facility] [id number] [address]- 3265 Aug, [facility] [address], [place] [address]- 5249 Jul, [facility] [address] [place] [id number] Jul, Type 2 diabetes mellitus without complication, unspecified intermediate project manager insulin use status E11.9 ; Chronic kidney [...] E03.9 and Constipation, unspecified constipation type K59.00 [facility] [address] 55124- 9005 Jul, [place] [facility] [address] 13039- 2075 Jul, [facility] [id number] Jul, Anemia, unspecified type D64.9 ; Acute renal failure, unspecified acute renal failure type N17.9 ; Other chronic pain G89.29 ; Obstructive sleep apnea syndrome G47.33 and Type 2 diabetes mellitus without complication, unspecified intermediate project manager insulin use status E11.9 [facility] [id number] [place] [address] 97185- 2100 Jul, [facility] [id number] [place] [address] 78885- 3516 Jul, [facility] [id number] [place] [address] 60043- 8112 Jul, [facility] [address] 67722- 8406 Jul, [facility] [id number] [place] [address] 85766- 6752 Jul, [facility] [address] [place] [id number] Jun, Other chronic pain G89.29 ; Hayes catheter in place Z92.89 ; Chronic kidney disease (CKD), unspecified stage N18.9 and Blisters of multiple sites R23.8 [facility] [facility] [address] [id number] [place] [address]- 5326 Jun, [facility] [address] [id number] [place] [address]- 4239 Jun, [facility] [address] [id number] [place] [address]- 1116 Jun, [facility] [address] [id number] [place] [address]- 4872 Jun, [facility] [address] [id number] [place] [address]- 3234 Jun, [facility] [address] [id number] [place] [address]- 9987 Jun, [facility] [address] [id number] [place] [address]- 8823 Jun, [facility] [address] [facility] [id number] [place] [address]- 0253 Jun, [facility] [address] [id number] [place] [address]- 0072 Jun, [facility] [address] [facility] [id number] [place] [address]- 4098 Jun, [facility] [address] [facility] [id number] [place] [address]- 5924 Jun, [facility] [address] [facility] [id number] [place] [address]- 5508 May, [facility] [address] [facility] [id number] [place] [address]- 8469 May, [facility] [address] [facility] [id number] [address] May, Other chronic pain G89.29 [facility] [address] [place], [place] [id number] May, Encounter to establish care Z76.89 ; Type 2 diabetes mellitus without complication, unspecified chcf insulin use status E11.9 ; Hypothyroidism, unspecified [...] SOCIAL HISTORY Never Assessed REASON FOR VISIT pain PLAN OF CARE Activity Details Follow Up prn Reason: VITAL SIGNS MEDICATIONS Medication Instructions Dosage Frequency Start Date End Date Duration Status Milk of Magnesia 400 MG/5ML Orally Once a day 30 ml as needed 24h 13 Dec, 2017 Active Ambien 5 mg Orally Once a day 1 tablet at bedtime 24h Feb, 28 days Active Oxybutynin Chloride 5 mg Orally Once a day 2 tablet 24h 11 Jan, 2018 Active Ibuprofen 800 MG Orally Three times a day 1 tablet with food or milk as needed 8h March, March, 10 days Active Trintellix 10 mg orally once a day 2 tablet 24h May, Active Gabapentin 400 mg Orally Twice a day in AM and afternoon and 2 at hs 1 capsule 24 Feb, 2018 Active Oxycodone-Acetaminophen 10-325 MG Orally 4 times a day 1 tablet 6h March, 28 days Active Tylenol 325 MG Orally every 6 hours as needed 2 tablet Dec, Active Lorazepam 0.5 MG Orally Once a day 1 tablet 24h Feb, 28 days Active Cyclobenzaprine HCl 10 mg Orally 2 times a day 1 tablet as needed 12h March, March, 10 days Active RESULTS No Results PROCEDURES Procedure Date Ordered Result Body Site Minor complication (15 mins) March 29, 2018 INSTRUCTIONS MEDICATIONS ADMINISTERED No Known Medications [...] Acute Kidney Injury 08/05/16 Hospitalization History UTI, Sepsis--[facility] Hospitalization History Chest pain/SOB/A-fib 02/2017 Hospitalization History Chest pain-[facility] 04/13/17 Hospitalization History UTI, respiratory failure, altered mental status-[facility] 09/13/17
--- OUTSIDE RECORDS SUMMARY | 2018-09-17 19:26 | XMS REPORT ---
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 Name Role Phone LATONYA KIM Unavailable PROBLEMS Type Condition ICD9-CM Code VDV32-YI Code Onset Dates Condition Status SNOMED Code Problem Ulcer L98.499 Active 642753561 Problem Chronic fatigue R53.82 Active 84552265 Problem Decreased renal function N28.9 Active 14325407 Problem Nephrolithiasis N20.0 Active 55287420 Problem Chronic kidney disease (CKD), unspecified stage N18.9 Active 252759442 Problem Venous stasis dermatitis of both lower extremities I87.2 Active 54359221 Problem Urinary incontinence, unspecified type R32 Active 054254922 Problem Morbid obesity due to excess calories E66.01 Active 451704244 Problem Anxiety F41.9 Active 47024651 Problem Bladder spasms N32.89 Active 234294053 Problem Stage 4 chronic kidney disease N18.4 Active 931367258 Problem Primary insomnia F51.01 Active 1677250 Problem Hypothyroidism, unspecified type E03.9 Active 34865008 Problem Cataract H26.9 Active 847381340 Problem Type 2 diabetes mellitus without complication, 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 Active 43177428 Problem Depression, unspecified depression type F32.9 Active 25264322 Problem Other chronic pain G89.29 Active 39851619 Problem Perennial allergic rhinitis, unspecified allergic rhinitis trigger J30.89 Active 934481537 Problem Obstructive sleep apnea syndrome G47.33 Active 50924896 Problem Restless leg syndrome G25.81 Active 06057999 Problem Closed fracture of left patella, unspecified fracture morphology, sequela S82.002S Active 03068129 Problem Gastroesophageal reflux disease without esophagitis K21.9 Active 329600555 Problem Atrial fibrillation, unspecified type I48.91 Active 21022045 ALLERGIES No Information ENCOUNTERS Encounter Location Date Diagnosis [facility] [id number] [place] [address] 20803- 5081 May, Other chronic pain G89.29 ; Arthralgia, unspecified joint M25.50 and Primary insomnia F51.01 [facility] [id number] [place] [address] 81450- 0925 May, Urinary tract infection without hematuria, site unspecified N39.0 [facility] [id number] [place] [address] 15478- 7331 May, Bladder spasms N32.89 [place] [facility] [id number] [place] [address] 25979- 0966 May, Primary insomnia F51.01 [place] [id number] [place] [address] 71539- 7741 May, [place] [id number] [place] [address] 36854- 4120 May, Primary insomnia F51.01 and Arthralgia, unspecified joint M25.50 [place] [id number] [place] [address] 53960- 7451 May, Other chronic pain G89.29 [facility] [address] [place] [id number] May, Nephrolithiasis N20.0 ; Cataract H26.9 and Macrocytic anemia D53.9 [place] [id number] [place] [address] 11836- 8268 May, [facility] [id number] [place] [address] 70033- 3969 Apr, [place] [id number] [place] [address] 16686- 2853 Apr, [facility] [id number] [place] [address] 97625- 0380 Apr, Primary insomnia F51.01 [facility] [id number] [place] [address] 85169- 4386 Apr, [facility] [address] [address] 9916 March, Other chronic pain G89.29 [facility] [address] [place] [id number] March, Arthralgia, unspecified joint M25.50 ; Abnormal urine sediment R82.90 ; Venous stasis dermatitis of both lower extremities I87.2 ; Stage 4 chronic kidney disease N18.4 and Cataract of right eye, unspecified cataract type H26.9 [place] [address] [place] [address] 60712- 2069 March, Primary insomnia F51.01 [facility] [address] [place] [id number] March, Cervicalgia M54.2 ; Acute pain of right shoulder M25.511 and Pain of left femur M89.8X5 [place] [id number] [place] [address] 62490- 6735 March, [facility] [facility] [id number] [place] [address] 72858- 1096 March, Other chronic pain G89.29 [place] [id number] [place] [address] 56112- 5055 Feb, [facility] [address] [place] [id number] Feb, Leg swelling M79.89 [place] [address] [place] [address] 62560- 2675 Feb, Primary insomnia F51.01 [facility] [address] [place] [id number] Feb, Fever in other diseases R50.81 and Intermittent left lower quadrant abdominal pain R10.32 [place] [address] [place] [address] 37548- 3294 Feb, [place] [address] [place] [address] 03495- 1609 Feb, [place] [address] [address]- 5453 Feb, Depression, unspecified depression type F32.9 ; Hypothyroidism, unspecified type E03.9 ; Type 2 diabetes mellitus without complication, unspecified longterm insulin use status E11.9 and Anxiety F41.9 [place] [address], [place] [address] 8927 Feb, Other chronic pain G89.29 [place] [facility] [id number] [place] [address] [id number] Jan, Other chronic pain G89.29 [place] [id number] [place] [address] 89179- 3515 Jan, Bladder spasms N32.89 [place] [id number] [place] [address] 76033- 7674 Jan, Bladder spasms N32.89 [facility] [id number] [place] [address] 04079- 2506 Dec, Bladder spasms N32.89 [place] [id number] [place] [address] 44759- 3011 Dec, Depression, unspecified depression type F32.9 [place] [address] [address]- 5844 Dec, [facility] [address] [place] [id number] Dec, Hypothyroidism, unspecified type E03.9 ; Depression, unspecified depression type F32.9 ; Other chronic pain G89.29 ; Urinary retention R33.9 and Atrial fibrillation, unspecified type I48.91 [place] [id number] [place] [address] [id number] Dec, [facility] [facility] [id number] [place] [address] [id number] Dec, Other chronic pain G89.29 [place] [facility] [id number] [place] [address] [id number] Nov, [facility] [id number] [place] [address] [id number] Nov, Other chronic pain G89.29 [facility] [address] [place] [address] 01115- 4666 Nov, Other chronic pain G89.29 [facility] [address] [place] [address] 53180- 6355 Nov, [facility] [id number] [place] [address] 83509- 8923 Nov, [facility] [id number] [place] [address] 134502- 7057 Nov, Other chronic pain G89.29 [facility] [id number] [place] [address] 26419- 6275 Nov, Other chronic pain G89.29 [facility] [id number] [place] [address] 83826- 6643 Oct, [facility] [id number] [place] [address] 98886- 6926 Oct, Other chronic pain G89.29 [facility] [address] [place] [id number] Oct, Weakness R53.1 ; Macrocytic anemia D53.9 ; Discolored skin L81.9 ; Other chronic pain G89.29 ; Dysuria R30.0 and Hayes catheter in place Z92.89 [facility] [id number] [place] [address] [phone]- 4160 Oct, Other chronic pain G89.29 [facility] [id number] [place] [address] [id number] Sep, [facility] [id number] [place] [address] [id number]- 3322 Sep, [facility] [address] [place] [address] [id number]- 4355 Sep, [facility] [id number] [id number] Sep, [facility] [id number] [place] [address] [id number] Sep, Other chronic pain G89.29 [facility] [id number] [place] [address] 91871- 0726 Sep, 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 ; Hypothyroidism, unspecified type E03.9 ; Depression, unspecified depression type F32.9 ; Cataract H26.9 ; Obstructive sleep apnea syndrome G47.33 ; Atrial fibrillation, unspecified type I48.91 ; History of femur fracture Z87.81 and [address] catheter in place Z92.89 [facility] [id number] [place] [address] [phone]- 2179 Sep, [facility] [id number] [place] [address] [id number]- 6633 Aug, [facility] [id number] [place] [address] [id number]- 6625 Aug, Other chronic pain G89.29 [facility] [address] [id number]67 Aug, [facility] [id number] [place] [address] [id number]- 4210 Aug, 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 [facility] [address], [place] [address]- 3886 19 Aug, 2017 Other chronic pain G89.29 [facility] [id number] [place] [address] 05835 2546 18 Aug, 2017 [facility] [address] [place] [address] 59663- 2547 16 Aug, 2017 [facility] [id number] [place] [address] 47296- 2283 22 Jul, 2017 Other chronic pain G89.29 [facility] [address], [place] [address] 2546 19 Jul, 2017 [facility] [id number] [place] [address] 49960 2542 19 Jul, 2017 Dark brown urine R82.99 [facility] [id number] [place] [address] 67464 2546 19 Jul, 2017 Dark brown urine R82.99 [facility] [address], [place] [address] 2540 14 Jul, 2017 [facility] [address], [place] [address] 2543 Jun, Other chronic pain G89.29 [facility] [address], [place] [address]- 8714 10 Jun, 2017 Type 2 diabetes mellitus without complication, unspecified longterm insulin use status E11.9 [facility] [address], [place] [address]- 8700 31 May, 2017 Candidiasis, intertrigo B37.2 [facility] [address], [place] [address]- 7633 May, Other chronic pain G89.29 [place] [address], [place] [address]- 3448 May, [place] [id number] [place] [address] 40298- 9531 May, [place] [id number] [place] [address] 88703- 4448 May, Candidiasis, intertrigo B37.2 [place] [id number] [place] [address] 24889- 3739 May, Atrial fibrillation, unspecified type I48.91 [place] [id number] [place] [address] 66487- 4054 May, Hypothyroidism, unspecified type E03.9 and Decreased renal function N28.9 [id number] [place] [address] 55938- 3824 May, Type 2 diabetes mellitus without complication, unspecified longterm insulin use status E11.9 [place] [id number] [place] [address] 75158- 8003 May, Dental examination Z01.20 [place] [id number] [place] [address] 01632- 4090 May, Chronic kidney disease (CKD), unspecified stage N18.9 ; Type 2 diabetes mellitus without complication, unspecified longterm insulin use status E11.9 ; Hypothyroidism, unspecified type E03.9 ; Depression, unspecified depression type F32.9 ; Anemia, unspecified type D64.9 and Ulcer L98.499 [place] [address] [place] [address] 30780- 6902 May, [place] [id number] [place] [address] 60792- 3120 Apr, Other chronic pain G89.29 [place] [id number] [place] [address] 42603- 0297 Apr, Other chronic pain G89.29 [facility] [address], [place] [address]- 0202 March, [facility] [id number], [place] [address]- 6477 March, [facility] [address], [place] [address]- 7311 March, [facility] [id number] [place] [address] 52572- 9206 March, Other chronic pain G89.29 [facility] [address] [place] [address] 74739- 8900 March, [facility] [address] [place] [address] 63785- 2655 Feb, [facility] [id number] [place] [address] 49321- 3413 Feb, Type 2 diabetes mellitus without complication, unspecified longterm insulin use status E11.9 ; Candidiasis, intertrigo B37.2 ; Decubitus ulcer of left buttock, unstageable L89.320 and Pressure ulcer of contiguous region involving right buttock and hip, unspecified ulcer stage L89.40 [facility] [address], [place] [address]- 8234 Feb, Atrial fibrillation, unspecified type I48.91 [facility] [address], [place] [address]- 6216 Feb, [facility] [address], [place] [address]- 0242 Feb, [facility] [id number] [place] [address] 89858- 8783 Feb, Other chronic pain G89.29 [facility] [address], [place] [address]- 5907 Jan, Other chronic pain G89.29 [facility] [id number] [address]- 8774 28 Dec, 2016 [facility] [address], [place] [address]- 0186 Dec, Lethargy R53.83 [facility] [address], [place] [address] 2546 17 Dec, 2016 [facility] [address] [place] [address] 48375- 3106 10 Dec, 2016 Other chronic pain G89.29 [facility] [address], [place] [address]- 1077 Nov, [facility] [address] [place] [address] 85793- 1484 Nov, [facility] [address], [place] [address]- 0685 Nov, Other chronic pain G89.29 [facility] [address], [place] [address]- 6209 Nov, [facility] [address], [place] [address]- 9947 Nov, [facility] [address], [place] [address]- 4221 Nov, [facility] [address], [place] [address]- 2200 Oct, Cough R05 [facility] [address], [place] [address]- 2707 Oct, Urinary tract infection, site not specified N39.0 [facility] [address], [place] [address]- 5461 16 Oct, 2016 Other chronic pain G89.29 [facility] [address], [place] [address]- 6066 15 Oct, 2016 Type 2 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 without complication, 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 ; Other chronic [...] J30.89 ; Nausea R11.0 and Candidiasis B37.9 [place] [address] 33435- 6467 Oct, [place] [address] 43536- 0127 Oct, [place] [address] 16266- 4746 Oct, [place] [address] 67237- 8836 Oct, Chronic kidney disease (CKD), unspecified stage N18.9 [place] [address] 92858- 0325 Oct, [place] [address] 18566- 2604 Sep, Other chronic pain G89.29 [place] [id number] [place] [address] 65837- 4660 Sep, Chronic kidney disease (CKD), unspecified stage N18.9 and Senile cataract of right eye, unspecified age-related cataract type H25.9 [place] [address] 77540- 9325 Sep, [place] [address] 50202- 6255 Sep, [place] [address] 16955- 3056 Sep, [place] [id number] [address]- 0538 Sep, [facility] [address], [place] [address]- 6614 Sep, [facility] [address], [place] [address]- 8793 Aug, [facility] [address], [place] [address]- 3795 Aug, [facility] [address], [place] [address]- 7996 Aug, [place] [address], [place] [address]- 0456 Aug, Encounter to establish care Z76.89 ; [...] and Gastroesophageal reflux disease without esophagitis K21.9 [place] [address], [place] [address]- 3351 14 Aug, 2016 [facility] [id number] [address]- 3827 Aug, Urinary incontinence, unspecified type R32 [facility] [id number] [address]- 7611 Aug, [facility] [address], [place] [address]- 1924 Jul, [facility] [address] [place] [id number] Jul, Type 2 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 without complication, 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 ; Chronic kidney [...] E03.9 and Constipation, unspecified constipation type K59.00 [place] [address] 92483- 9199 Jul, [place] [address] 48940- 7881 Jul, [facility] [id number] Jul, Anemia, unspecified type D64.9 ; Acute renal failure, unspecified acute renal failure type N17.9 ; Other chronic pain G89.29 ; Obstructive sleep apnea syndrome G47.33 and Type 2 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 mellitus without complication, 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 [place] [id number] [place] [address] 44365- 9781 Jul, [place] [id number] [place] [address] 32767- 2297 Jul, [place] [id number] [place] [address] 50714- 5272 Jul, [place] [address] 02256- 7538 Jul, [place] [id number] [place] [address] 58202- 5340 Jul, [employer] [address] [place] [id number] Jun, Other chronic pain G89.29 ; Hayes catheter in place Z92.89 ; Chronic kidney disease (CKD), unspecified stage N18.9 and Blisters of multiple sites R23.8 [place] [address] [id number] [place] [address]- 0377 Jun, [facility] [address] [id number] [place] [address]- 4880 Jun, [facility] [address] [id number] [place] [address]- 5635 Jun, [facility] [address] [id number] [place] [address]- 4501 Jun, [facility] [address] [id number] [place] [address]- 8044 Jun, [facility] [address] [id number] [place] [address]- 7807 Jun, [facility] [address] [id number] [place] [address]- 5870 Jun, [facility] [address] [facility] [id number] [place] [address]- 4157 Jun, [facility] [address] [id number] [place] [address]- 8383 Jun, [facility] [address] [facility] [id number] [place] [address]- 5216 Jun, [facility] [address] [facility] [id number] [place] [address]- 2406 Jun, [facility] [address] [facility] [id number] [place] [address]- 6999 May, [facility] [address] [facility] [id number] [place] [address]- 4372 May, [facility] [address] [facility] [id number] [address]- 7812 May, Other chronic pain G89.29 [facility] [address] [place] [id number] May, Encounter to establish care Z76.89 ; [...] SOCIAL HISTORY Never Assessed REASON FOR VISIT FU on joint pain PLAN OF CARE Activity Details Follow Up prn Reason: VITAL SIGNS MEDICATIONS Medication Instructions Dosage Frequency Start Date End Date Duration Status Lyrica 75 MG Orally twice a day 1 capsule 12h March, 30 days Active Cranberry 450 MG Orally Three times a day 1 tablet with meals 8h March, Jul, 30 days Active PredniSONE 20 mg Orally Once a day 2 tablet 24h March, March, 05 days Active RESULTS No Results PROCEDURES Procedure Date Ordered Result Body Site Significant Complication (25 mins) April 05, 2018 INSTRUCTIONS MEDICATIONS ADMINISTERED No Known Medications [...] Acute Kidney Injury 08/05/16 Hospitalization History UTI, Sepsis--[facility] Hospitalization History Chest pain/SOB/A-fib 02/2017 Hospitalization History Chest pain-[facility] 04/13/17 Hospitalization History UTI, respiratory failure, altered mental status-[facility] 09/13/17
--- OUTSIDE RECORDS SUMMARY | 2018-09-17 19:27 | XMS REPORT ---
Author Author LATONYA KIM [facility] Address [address] [place] [address] Care Team Providers Care Supervisor Special Effects Name Role Phone LATONYA KIM Unavailable PROBLEMS Type Condition ICD9-CM Code FEQ14-UL Code Onset Dates Condition Status SNOMED Code Problem Ulcer L98.499 Active 631505324 Problem Chronic fatigue R53.82 Active 46719377 Problem Decreased renal function N28.9 Active 12842508 Problem Nephrolithiasis N20.0 Active 63564164 Problem Chronic kidney disease (CKD), unspecified stage N18.9 Active 261976463 Problem Venous stasis dermatitis of both lower extremities I87.2 Active 52149668 Problem Urinary incontinence, unspecified type R32 Active 700242488 Problem Morbid obesity due to excess calories E66.01 Active 487140014 Problem Anxiety F41.9 Active 58677610 Problem Bladder spasms N32.89 Active 755881589 Problem Stage 4 chronic kidney disease N18.4 Active 413865055 Problem Primary insomnia F51.01 Active 2686833 Problem Hypothyroidism, unspecified type E03.9 Active 11407168 Problem Cataract H26.9 Active 864125061 Problem Type 2 diabetes mellitus without complication, unspecified buttermaker continuous churn insulin use status E11.9 Active 90958385 Problem Depression, unspecified depression type F32.9 Active 48274755 Problem Other chronic pain G89.29 Active 15902746 Problem Perennial allergic rhinitis, unspecified allergic rhinitis trigger J30.89 Active 390991075 Problem Obstructive sleep apnea syndrome G47.33 Active 12602120 Problem Restless leg syndrome G25.81 Active 58664220 Problem Closed fracture of left patella, unspecified fracture morphology, sequela S82.002S Active 26247058 Problem Gastroesophageal reflux disease without esophagitis K21.9 Active 437403494 Problem Atrial fibrillation, unspecified type I48.91 Active 27303003 ALLERGIES No Information ENCOUNTERS Encounter Location Date Diagnosis [facility] [id number] [place] [address] 88077- 8952 May, Other chronic pain G89.29 ; Arthralgia, unspecified joint M25.50 and Primary insomnia F51.01 [facility] [id number] [place] [address] 38593- 6256 May, Urinary tract infection without hematuria, site unspecified N39.0 [facility] [id number] [place] [address] 47547- 7239 May, Bladder spasms N32.89 [facility] [id number] [place] [address] 58430- 8029 May, Primary insomnia F51.01 [facility] [id number] [place] [address] 40722- 7520 May, [facility] [id number] [place] [address] 83371- 2863 May, Primary insomnia F51.01 and Arthralgia, unspecified joint M25.50 [facility] [id number] [place] [address] 43229- 1674 May, Other chronic pain G89.29 [facility] [address] [place] [id number] May, Nephrolithiasis N20.0 ; Cataract H26.9 and Macrocytic anemia D53.9 [facility] [id number] [place] [address] 36850- 4285 May, [facility] [id number] [place] [address] 68419- 4790 Apr, [facility] [id number] [place] [address] 63533- 1387 Apr, [facility] [id number] [place] [address] 82428- 0678 Apr, Primary insomnia F51.01 [facility] [id number] [place] [address] 22912- 9986 Apr, [facility] [address], [place] [address] 5007 March, Other chronic pain G89.29 [facility] [address] [place] [id number] March, Arthralgia, unspecified joint M25.50 ; Abnormal urine sediment R82.90 ; Venous stasis dermatitis of both lower extremities I87.2 ; Stage 4 chronic kidney disease N18.4 and Cataract of right eye, unspecified cataract type H26.9 [facility] [address] [place] [address] 10583- 9314 March, Primary insomnia F51.01 [facility] [address] [place] [id number] March, Cervicalgia M54.2 ; Acute pain of right shoulder M25.511 and Pain of left femur M89.8X5 [facility] [id number] [place] [address] 43301- 2710 March, [facility] [id number] [place] [address] 34858- 4881 March, Other chronic pain G89.29 [facility] [id number] [place] [address] 16707- 7111 Feb, [facility] [address] [place] [id number] Feb, Leg swelling M79.89 [facility] [address] [place] [address] 22843- 9230 Feb, Primary insomnia F51.01 [facility] [address] [place] [id number] Feb, Fever in other diseases R50.81 and Intermittent left lower quadrant abdominal pain R10.32 [facility] [address] [place] [address] 04820- 6960 Feb, [facility] [address] [place] [address] 30618- 6150 Feb, [facility] [address], [place] [address] 9676 Feb, Depression, unspecified depression type F32.9 ; Hypothyroidism, unspecified type E03.9 ; Type 2 diabetes mellitus without complication, unspecified care home insulin use status E11.9 and Anxiety F41.9 [place] [address], [place] [address]- 9381 Feb, Other chronic pain G89.29 [facility] [id number] [place] [address] [id number] Jan, Other chronic pain G89.29 [facility] [id number] [place] [address] 68757- 7872 Jan, Bladder spasms N32.89 [facility] [id number] [place] [address] 64550- 4350 Jan, Bladder spasms N32.89 [facility] [id number] [place] [address] 02953- 8249 Dec, Bladder spasms N32.89 [facility] [id number] [place] [address] 11316- 2409 Dec, Depression, unspecified depression type F32.9 [facility] [address], [place] [address] 8856 Dec, [facility] [address] [place] [id number] Dec, Hypothyroidism, unspecified type E03.9 ; Depression, unspecified depression type F32.9 ; Other chronic pain G89.29 ; Urinary retention R33.9 and Atrial fibrillation, unspecified type I48.91 [place] [id number] [place] [address] [id number] Dec, [facility] [id number] [place] [address] [id number] Dec, Other chronic pain G89.29 [place] [facility] [id number] [place] [address] [id number] Nov, [facility] [place] [id number] [place] [address] [id number] Nov, Other chronic pain G89.29 [facility] [address] [place] [address] 78059- 1576 Nov, Other chronic pain G89.29 [facility] [address] [place] [address] 00985- 7432 Nov, [facility] [id number] [place] [address] 19436- 9521 Nov, [facility] [id number] [place] [address] 991544- 9443 Nov, Other chronic pain G89.29 [facility] [id number] [place] [address] 64557- 1879 Nov, Other chronic pain G89.29 [facility] [id number] [place] [address] 60946- 6908 Oct, [facility] [id number] [place] [address] 59352- 9870 Oct, Other chronic pain G89.29 [facility] [address] [facility] [address] [place] [id number] Oct, Weakness R53.1 ; Macrocytic anemia D53.9 ; Discolored skin L81.9 ; Other chronic pain G89.29 ; Dysuria R30.0 and Hayes catheter in place Z92.89 [facility] [address] [place] [address] 19320638- 3087 Oct, Other chronic pain G89.29 [facility] [place] [id number] [place] [address] [id number] Sep, [facility] [id number] [place] [address] [id number]- 7123 Sep, [facility] [address] [place] [address] 16099380- 5997 Sep, [facility] [place] [id number] [id number] Sep, [facility] [place] [id number] [place] [address] [id number] Sep, Other chronic pain G89.29 [facility] [id number] [place] [address] 14286- 2886 Sep, [facility] [place] [id number] [place] [address] [id number] Sep, Other chronic pain G89.29 [facility] [address] [place] [id number] Sep, Chronic urinary tract infection N39.0 ; Other chronic pain G89.29 ; Chronic kidney disease (CKD), unspecified stage N18.9 ; Type 2 diabetes mellitus without complication, unspecified buttermaker continuous churn insulin use status E11.9 ; Hypothyroidism, unspecified type E03.9 ; Depression, unspecified depression type F32.9 ; Cataract H26.9 ; Obstructive sleep apnea syndrome G47.33 ; Atrial fibrillation, unspecified type I48.91 ; History of femur fracture Z87.81 and Hayes catheter in place Z92.89 [facility] [id number] [place] [address] [id number]- 7839 Sep, [facility] [id number] [place] [address] [id number]- 6039 Aug, [facility] [id number] [place] [address] [id number]- 2725 Aug, Other chronic pain G89.29 [facility] [address] [address] 7555 Aug, [facility] [id number] [place] [address] [id number]- 9876 Aug, [facility] [place] [id number] [place] [address] [id number] Aug, [facility] [id number] [place] [address] 45007- 5430 23 Aug, 2017 [facility] [address], [place] [address]- 1434 Aug, Type 2 diabetes mellitus without complication, unspecified buttermaker continuous churn insulin use status E11.9 [facility] [address], [place] [address]- 6136 19 Aug, 2017 Other chronic pain G89.29 [facility] [id number] [place] [address] 73830 2546 18 Aug, 2017 [facility] [address] [place] [address] 12566- 5884 16 Aug, 2017 [facility] [id number] [place] [address] 27152- 8966 22 Jul, 2017 Other chronic pain G89.29 [facility] [address], [place] [address] 2546 19 Jul, 2017 [facility] [address] [place] [address] 58090 2543 19 Jul, 2017 Dark brown urine R82.99 [facility] [id number] [place] [address] 33076 2546 19 Jul, 2017 Dark brown urine R82.99 [facility] [address], [place] [address] 2549 14 Jul, 2017 [facility] [address], [place] [address] 2540 Jun, Other chronic pain G89.29 [facility] [address], [place] [address]- 5038 10 Jun, 2017 Type 2 diabetes mellitus without complication, unspecified care home insulin use status E11.9 [facility] [address], [place] [address]- 9615 31 May, 2017 Candidiasis, intertrigo B37.2 [facility] [address], [place] [address]- 2450 May, Other chronic pain G89.29 [facility] [address], [place] [address]- 3523 May, [facility] [id number] [place] [address] 01112- 2071 May, [facility] [id number] [place] [address] 53298- 5461 May, Candidiasis, intertrigo B37.2 [facility] [id number] [place] [address] 14184- 0721 May, Atrial fibrillation, unspecified type I48.91 [facility] [id number] [place] [address] 00451- 3019 May, Hypothyroidism, unspecified type E03.9 and Decreased renal function N28.9 [address] [id number] [place] [address] 30408- 5348 May, Type 2 diabetes mellitus without complication, unspecified care home insulin use status E11.9 [facility] [id number] [place] [address] 57870- 0692 May, Dental examination Z01.20 [facility] [id number] [place] [address] 03221- 8358 May, Chronic kidney disease (CKD), unspecified stage N18.9 ; Type 2 diabetes mellitus without complication, unspecified care home insulin use status E11.9 ; Hypothyroidism, unspecified type E03.9 ; Depression, unspecified depression type F32.9 ; Anemia, unspecified type D64.9 and Ulcer L98.499 [facility] [address] [place] [address] 59040- 4023 May, [facility] [id number] [place] [address] 05444- 3753 Apr, Other chronic pain G89.29 [facility] [id number] [place] [address] 47549- 5792 Apr, Other chronic pain G89.29 [facility] [address], [place] [address]- 3332 March, [facility] [address], [place] [address]- 6221 March, [facility] [address], [place] [address]- 7695 March, [facility] [id number] [place] [address] 71494- 4849 March, Other chronic pain G89.29 [facility] [address] [place] [address] 04184- 8472 March, [facility] [address] [place] [address] 43109- 7050 Feb, [facility] [id number] [place] [address] 75587- 3417 Feb, Type 2 diabetes mellitus without complication, unspecified care home insulin use status E11.9 ; Candidiasis, intertrigo B37.2 ; Decubitus ulcer of left buttock, unstageable L89.320 and Pressure ulcer of contiguous region involving right buttock and hip, unspecified ulcer stage L89.40 [facility] [address], [place] [address]- 0658 Feb, Atrial fibrillation, unspecified type I48.91 [facility] [address], [place] [address]- 5295 Feb, [facility] [address], [place] [address]- 9868 Feb, [facility] [id number] [place] [address] 45825- 4546 Feb, Other chronic pain G89.29 [facility] [address], [place] [address]- 3028 Jan, Other chronic pain G89.29 [facility] [address] [address]- 9199 28 Dec, 2016 [facility] [address], [place] [address]- 3176 Dec, Lethargy R53.83 [facility] [address], [place] [address] 2546 17 Dec, 2016 [facility] [address] [place] [address] 94861- 8352 10 Dec, 2016 Other chronic pain G89.29 [facility] [address], [place] [address]- 4640 Nov, [facility] [address] [place] [address] 17527- 0404 Nov, [facility] [address], [place] [address]- 8568 Nov, Other chronic pain G89.29 [facility] [address], [place] [address]- 9839 Nov, [facility] [address], [place] [address]- 6147 Nov, [facility] [address], [place] [address]- 8351 Nov, [facility] [address], [place] [address]- 0664 Oct, Cough R05 [facility] [address], [place] [address]- 4354 Oct, Urinary tract infection, site not specified N39.0 [facility] [address], [place] [address]- 3797 16 Oct, 2016 Other chronic pain G89.29 [facility] [address], [place] [address]- 0238 15 Oct, 2016 Type 2 diabetes mellitus without complication, unspecified buttermaker continuous churn insulin use status E11.9 ; Other chronic [...] J30.89 ; Nausea R11.0 and Candidiasis B37.9 [place] [address] 51566- 0009 Oct, [place] [address] 17677- 8357 Oct, [place] [address] 12492- 0689 Oct, [place] [address] 34110- 6182 Oct, Chronic kidney disease (CKD), unspecified stage N18.9 [place] [address] 83671- 0562 Oct, [facility] [address] 88564- 3510 Sep, Other chronic pain G89.29 [facility] [id number] [place] [address] 32021- 9168 Sep, Chronic kidney disease (CKD), unspecified stage N18.9 and Senile cataract of right eye, unspecified age-related cataract type H25.9 [place] [address] 69636- 5515 Sep, [place] [address] 84328- 2734 Sep, [place] [facility] [address] 83508- 7701 Sep, [facility] [id number], [place] [address]- 9327 Sep, [facility] [address], [place] [address]- 3604 Sep, [facility] [address], [place] [address]- 4827 Aug, [facility] [address], [place] [address]- 0353 Aug, [facility] [address], [place] [address]- 8405 Aug, [place] [facility] [address], [place] [address]- 7820 Aug, Encounter to establish care Z76.89 ; Other chronic pain G89.29 ; Chronic kidney disease (CKD), unspecified stage N18.9 ; Obstructive sleep apnea syndrome G47.33 ; Type 2 diabetes mellitus without complication, unspecified care home insulin use status E11.9 ; Urinary incontinence, unspecified type R32 ; Depression, unspecified depression type F32.9 ; History of femur fracture Z87.81 ; History of fractured kneecap Z87.81 ; Hypothyroidism , unspecified type E03.9 ; Cataract H26.9 and Gastroesophageal reflux disease without esophagitis K21.9 [place] [facility] [address], [place] [address]- 4144 14 Aug, 2016 [facility] [id number] [address]- 9425 Aug, Urinary incontinence, unspecified type R32 [facility] [id number] [address]- 7232 Aug, [facility] [address], [place] [address]- 1579 Jul, [facility] [address] [place] [id number] Jul, Type 2 diabetes mellitus without complication, unspecified buttermaker continuous churn insulin use status E11.9 ; Chronic kidney [...] E03.9 and Constipation, unspecified constipation type K59.00 [place] [address] 10836- 1817 Jul, [place] [address] 25127- 6182 Jul, [facility] [id number] Jul, Anemia, unspecified type D64.9 ; Acute renal failure, unspecified acute renal failure type N17.9 ; Other chronic pain G89.29 ; Obstructive sleep apnea syndrome G47.33 and Type 2 diabetes mellitus without complication, unspecified buttermaker continuous churn insulin use status E11.9 [place] [id number] [place] [address] 22447- 1500 Jul, [place] [id number] [place] [address] 28432- 5166 Jul, [facility] [id number] [place] [address] 20175- 7766 Jul, [place] [address] 07791- 0690 Jul, [place] [id number] [place] [address] 52849- 9122 Jul, [facility] [address] [place] [id number] Jun, Other chronic pain G89.29 ; Hayes catheter in place Z92.89 ; Chronic kidney disease (CKD), unspecified stage N18.9 and Blisters of multiple sites R23.8 [place] [address] [id number] [place] [address]- 8004 Jun, [facility] [address] [id number] [place] [address]- 8903 Jun, [facility] [address] [id number] [place] [address]- 2925 Jun, [facility] [address] [id number] [place] [address]- 4918 Jun, [facility] [address] [id number] [place] [address]- 0360 Jun, [facility] [address] [id number] [place] [address]- 9454 Jun, [facility] [address] [id number] [place] [address]- 1479 Jun, [facility] [address] [facility] [id number] [place] [address]- 9847 Jun, [facility] [address] [id number] [place] [address]- 7877 Jun, [facility] [address] [facility] [id number] [place] [address]- 2664 Jun, [facility] [address] [facility] [id number] [place] [address]- 7753 Jun, [facility] [address] [facility] [id number] [place] [address]- 1680 May, [facility] [address] [facility] [id number] [place] [address]- [address] May, [facility] [address] [facility] [id number] [address] May, Other chronic pain G89.29 [facility] [address], [place] [id number] May, Encounter to establish care Z76.89 ; [...] Acute Kidney Injury 08/05/16 Hospitalization History UTI, Sepsis--[facility] Hospitalization History Chest pain/SOB/A-fib 02/2017 Hospitalization History Chest pain-[facility] 04/13/17 Hospitalization History UTI, respiratory failure, altered mental status-[facility] 09/13/17
--- OUTSIDE RECORDS SUMMARY | 2018-09-17 19:27 | XMS REPORT ---
Author Author LATONYA KIM [facility] Address [address] [place] [address] Care Team Providers Care Handle Sewer Name Role Phone LATONYA KIM Unavailable PROBLEMS Type Condition ICD9-CM Code SKM50-NA Code Onset Dates Condition Status SNOMED Code Problem Ulcer L98.499 Active 311291498 Problem Chronic fatigue R53.82 Active 22710660 Problem Decreased renal function N28.9 Active 76204601 Problem Nephrolithiasis N20.0 Active 28848213 Problem Chronic kidney disease (CKD), unspecified stage N18.9 Active 270970170 Problem Venous stasis dermatitis of both lower extremities I87.2 Active 63077199 Problem Urinary incontinence, unspecified type R32 Active 626643205 Problem Morbid obesity due to excess calories E66.01 Active 872267848 Problem Anxiety F41.9 Active 85145685 Problem Bladder spasms N32.89 Active 757140442 Problem Stage 4 chronic kidney disease N18.4 Active 929753928 Problem Primary insomnia F51.01 Active 0312993 Problem Hypothyroidism, unspecified type E03.9 Active 09852004 Problem Cataract H26.9 Active 128097541 Problem Type 2 diabetes mellitus without complication, 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 Active 27635622 Problem Depression, unspecified depression type F32.9 Active 13115251 Problem Other chronic pain G89.29 Active 64966150 Problem Perennial allergic rhinitis, unspecified allergic rhinitis trigger J30.89 Active 744333092 Problem Obstructive sleep apnea syndrome G47.33 Active 53057051 Problem Restless leg syndrome G25.81 Active 00324504 Problem Closed fracture of left patella, unspecified fracture morphology, sequela S82.002S Active 87391993 Problem Gastroesophageal reflux disease without esophagitis K21.9 Active 632911757 Problem Atrial fibrillation, unspecified type I48.91 Active 39636806 ALLERGIES No Information ENCOUNTERS Encounter Location Date Diagnosis [facility] [id number] [place] [address] 70137- 1981 May, Other chronic pain G89.29 ; Arthralgia, unspecified joint M25.50 and Primary insomnia F51.01 [facility] [id number] [place] [address] 99563- 1213 May, Urinary tract infection without hematuria, site unspecified N39.0 [facility] [id number] [place] [address] 92142- 0830 May, Bladder spasms N32.89 [facility] [id number] [place] [address] 15724- 0352 May, Primary insomnia F51.01 [facility] [id number] [place] [address] 52283- 2669 May, [facility] [id number] [place] [address] 78067- 2377 May, Primary insomnia F51.01 and Arthralgia, unspecified joint M25.50 [facility] [id number] [place] [address] 47995- 5772 May, Other chronic pain G89.29 [facility] [address] [place] [id number] May, Nephrolithiasis N20.0 ; Cataract H26.9 and Macrocytic anemia D53.9 [facility] [id number] [place] [address] 67941- 4625 May, [facility] [id number] [place] [address] 00972- 4361 Apr, [facility] [id number] [place] [address] 38969- 6010 Apr, [facility] [id number] [place] [address] 48476- 5514 Apr, Primary insomnia F51.01 [facility] [id number] [place] [address] 18306- 5107 Apr, [facility] [address] [address] 6610 March, Other chronic pain G89.29 [facility] [address] [place] [id number] March, Arthralgia, unspecified joint M25.50 ; Abnormal urine sediment R82.90 ; Venous stasis dermatitis of both lower extremities I87.2 ; Stage 4 chronic kidney disease N18.4 and Cataract of right eye, unspecified cataract type H26.9 [facility] [address] [place] [address] 03006- 2481 March, Primary insomnia F51.01 [facility] [address] [place] [id number] March, Cervicalgia M54.2 ; Acute pain of right shoulder M25.511 and Pain of left femur M89.8X5 [facility] [id number] [place] [address] 17717- 2528 March, [facility] [id number] [place] [address] 80102- 0857 March, Other chronic pain G89.29 [facility] [id number] [place] [address] 82553- 1199 Feb, [facility] [address] [place] [id number] Feb, Leg swelling M79.89 [facility] [address] [place] [address] 99915- 1525 Feb, Primary insomnia F51.01 [facility] [address] [place] [id number] Feb, Fever in other diseases R50.81 and Intermittent left lower quadrant abdominal pain R10.32 [facility] [address] [place] [address] 48625- 8479 Feb, [facility] [address] [place] [address] 95712- 8370 Feb, [facility] [address] [address] 3115 Feb, Depression, unspecified depression type F32.9 ; Hypothyroidism, unspecified type E03.9 ; Type 2 diabetes mellitus without complication, unspecified care home insulin use status E11.9 and Anxiety F41.9 [facility] [address] [place] [address] 8199 Feb, Other chronic pain G89.29 [facility] [id number] [place] [address] [id number] Jan, Other chronic pain G89.29 [facility] [id number] [place] [address] 81032- 3859 Jan, Bladder spasms N32.89 [facility] [id number] [place] [address] 34640- 5099 Jan, Bladder spasms N32.89 [facility] [id number] [place] [address] 38570- 2427 Dec, Bladder spasms N32.89 [facility] [id number] [place] [address] 87034- 2497 Dec, Depression, unspecified depression type F32.9 [facility] [address] [address] 5904 Dec, [facility] [address] [place] [id number] Dec, Hypothyroidism, unspecified type E03.9 ; Depression, unspecified depression type F32.9 ; Other chronic pain G89.29 ; Urinary retention R33.9 and Atrial fibrillation, unspecified type I48.91 [facility] [id number] [place] [id number] Dec, [facility] [id number] [place] [address] [id number] Dec, Other chronic pain G89.29 [facility] [id number] [place] [address] [id number] Nov, [facility] [id number] [place] [address] [id number] Nov, Other chronic pain G89.29 [facility] [address] [place] [address] 16770- 7706 Nov, Other chronic pain G89.29 [facility] [address] [place] [address] 79442- 3885 Nov, [facility] [id number] [place] [address] 60548- 7320 Nov, [facility] [id number] [place] [address] 417018- 4072 Nov, Other chronic pain G89.29 [facility] [id number] [place] [address] 04453- 4394 Nov, Other chronic pain G89.29 [facility] [id number] [place] [address] 93611- 3530 Oct, [facility] [id number] [place] [address] 61034- 7219 Oct, Other chronic pain G89.29 [facility] [address] [facility] [address] [address] [place] [id number] Oct, Weakness R53.1 ; Macrocytic anemia D53.9 ; Discolored skin L81.9 ; Other chronic pain G89.29 ; Dysuria R30.0 and Hayes catheter in place Z92.89 [facility] [address] [place] [address] [id number]- 1852 Oct, Other chronic pain G89.29 [facility] [id number] [place] [address] [id number] Sep, [facility] [id number] [place] [address] [id number]- 0901 Sep, [facility] [address] [place] [address] [id number]- 5262 Sep, [facility] [id number] [id number] Sep, [facility] [id number] [place] [address] [id number] Sep, Other chronic pain G89.29 [facility] [id number] [place] [address] 18438- 8176 Sep, [facility] [id number] [place] [address] [id number] Sep, Other chronic pain G89.29 [address] [facility] [address] [place] [id number] Sep, Chronic urinary tract infection N39.0 ; Other chronic pain G89.29 ; Chronic kidney disease (CKD), unspecified stage N18.9 ; Type 2 diabetes mellitus without complication, 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 ; Hypothyroidism, unspecified type E03.9 ; Depression, unspecified depression type F32.9 ; Cataract H26.9 ; Obstructive sleep apnea syndrome G47.33 ; Atrial fibrillation, unspecified type I48.91 ; History of femur fracture Z87.81 and [address] catheter in place Z92.89 [facility] [id number] [place] [address] [phone]- 9206 Sep, [facility] [id number] [place] [address] [phone]- 3713 Aug, [facility] [id number] [place] [address] [id number]- 3620 Aug, Other chronic pain G89.29 [facility] [address] [address] 1066 Aug, [facility] [id number] [place] [address] [id number]- 9904 Aug, [facility] [id number] [place] [address] [id number] Aug, [facility] [id number] [place] [address] 54220- 2466 23 Aug, 2017 [facility] [address] [place] [address]- 0264 Aug, Type 2 diabetes mellitus without complication, 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 [facility] [address], [place] [address]- 2046 19 Aug, 2017 Other chronic pain G89.29 [facility] [id number] [place] [address] 51321 2546 18 Aug, 2017 [facility] [address] [place] [address] 78228- 1368 16 Aug, 2017 [facility] [id number] [place] [address] 13971- 1285 22 Jul, 2017 Other chronic pain G89.29 [facility] [address], [place] [address] 2546 19 Jul, 2017 [facility] [address] [place] [address] 14040 2548 19 Jul, 2017 Dark brown urine R82.99 [facility] [id number] [place] [address] 23785 2546 19 Jul, 2017 Dark brown urine R82.99 [facility] [address], [place] [address] 2540 14 Jul, 2017 [facility] [address], [place] [address] 254 Jun, Other chronic pain G89.29 [facility] [address], [place] [address]- 2507 10 Jun, 2017 Type 2 diabetes mellitus without complication, unspecified care home insulin use status E11.9 [facility] [address], [place] [address]- 6469 31 May, 2017 Candidiasis, intertrigo B37.2 [facility] [address], [place] [address]- 3713 May, Other chronic pain G89.29 [facility] [address] [place] [address]- 7982 May, [facility] [id number] [place] [address] 78709- 8987 May, [facility] [id number] [place] [address] 80697- 7121 May, Candidiasis, intertrigo B37.2 [facility] [id number] [place] [address] 27229- 8389 May, Atrial fibrillation, unspecified type I48.91 [facility] [id number] [place] [address] 92201- 9751 May, Hypothyroidism, unspecified type E03.9 and Decreased renal function N28.9 [id number] [place] [address] 94152- 0276 May, Type 2 diabetes mellitus without complication, unspecified care home insulin use status E11.9 [facility] [id number] [place] [address] 47542- 6645 May, Dental examination Z01.20 [facility] [id number] [place] [address] 35515- 4845 May, Chronic kidney disease (CKD), unspecified stage N18.9 ; Type 2 diabetes mellitus without complication, unspecified care home insulin use status E11.9 ; Hypothyroidism, unspecified type E03.9 ; Depression, unspecified depression type F32.9 ; Anemia, unspecified type D64.9 and Ulcer L98.499 [facility] [address] [place] [address] 32806- 6675 May, [facility] [id number] [place] [address] 32127- 1109 Apr, Other chronic pain G89.29 [facility] [id number] [place] [address] 06947- 5581 Apr, Other chronic pain G89.29 [facility] [address], [place] [address]- 8606 March, [facility] [address], [place] [address]- 5328 March, [facility] [address], [place] [address]- 3520 March, [facility] [id number] [place] [address] 10663- 3845 March, Other chronic pain G89.29 [facility] [address] [place] [address] 86144- 2252 March, [facility] [address] [place] [address] 88695- 3742 Feb, [facility] [id number] [place] [address] 48315- 7480 Feb, Type 2 diabetes mellitus without complication, unspecified care home insulin use status E11.9 ; Candidiasis, intertrigo B37.2 ; Decubitus ulcer of left buttock, unstageable L89.320 and Pressure ulcer of contiguous region involving right buttock and hip, unspecified ulcer stage L89.40 [facility] [address], [place] [address]- 3625 Feb, Atrial fibrillation, unspecified type I48.91 [facility] [address] [address]- 8548 Feb, [facility] [address], [place] [address]- 5563 Feb, [facility] [id number] [place] [address] 67800- 1388 Feb, Other chronic pain G89.29 [facility] [address], [place] [address]- 7849 Jan, Other chronic pain G89.29 [facility] [address] [address]- 8667 28 Dec, 2016 [facility] [address], [place] [address]- 9266 Dec, Lethargy R53.83 [facility] [address], [place] [address] 2546 17 Dec, 2016 [facility] [address] [place] [address] 22660- 7037 10 Dec, 2016 Other chronic pain G89.29 [facility] [address], [place] [address]- 3442 Nov, [facility] [address] [place] [address] 63483- 9480 Nov, [facility] [address], [place] [address]- 7430 Nov, Other chronic pain G89.29 [facility] [address], [place] [address]- 5685 Nov, [facility] [address], [place] [address]- 1636 Nov, [facility] [address], [place] [address]- 5790 Nov, [facility] [address], [place] [address]- 4742 Oct, Cough R05 [facility] [address], [place] [address]- 5460 Oct, Urinary tract infection, site not specified N39.0 [facility] [address], [place] [address]- 5853 16 Oct, 2016 Other chronic pain G89.29 [facility] [address], [place] [address]- 7096 15 Oct, 2016 Type 2 diabetes mellitus without complication, 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 ; Other [...] J30.89 ; Nausea R11.0 and Candidiasis B37.9 [facility] [address] 46900- 8144 Oct, [facility] [address] 45188- 9204 Oct, [facility] [address] 03152- 3778 Oct, [facility] [address] 01987- 0185 Oct, Chronic kidney disease (CKD), unspecified stage N18.9 [facility] [address] 59732- 2780 Oct, [facility] [address] 35661- 0211 Sep, Other chronic pain G89.29 [facility] [id number] [place] [address] 42184- 3303 Sep, Chronic kidney disease (CKD), unspecified stage N18.9 and Senile cataract of right eye, unspecified age-related cataract type H25.9 [facility] [address] 07655- 3425 Sep, [facility] [address] 95561- 3219 Sep, [facility] [address] 52128- 7680 Sep, [facility] [id number], [place] [address]- 0123 Sep, [facility] [address], [place] [address]- 8808 Sep, [facility] [address], [place] [address]- 2925 Aug, [facility] [address], [place] [address]- 5607 Aug, [facility] [address], [place] [address]- 1633 Aug, [facility] [address], [place] [address]- 9473 Aug, Encounter to establish care Z76.89 ; [...] and Gastroesophageal reflux disease without esophagitis K21.9 [facility] [address], [place] [address]- 9780 14 Aug, 2016 [facility] [id number], [place] [address]- 8127 Aug, Urinary incontinence, unspecified type R32 [facility] [id number] [address]- 1260 Aug, [facility] [address], [place] [address]- 9740 Jul, [facility] [address] [place] [id number] Jul, Type 2 diabetes mellitus without complication, 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 ; Chronic [...] E03.9 and Constipation, unspecified constipation type K59.00 [facility] [address] 87641- 9632 Jul, [place] [address] 13833- 5713 Jul, [employer] [id number] Jul, Anemia, unspecified type D64.9 ; Acute renal failure, unspecified acute renal failure type N17.9 ; Other chronic pain G89.29 ; Obstructive sleep apnea syndrome G47.33 and Type 2 diabetes mellitus without complication, 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 [facility] [id number] [place] [address] 41777- 8274 Jul, [facility] [id number] [place] [address] 29687- 1185 Jul, [facility] [id number] [place] [address] 97564- 0265 Jul, [facility] [address] 57814- 2029 Jul, [facility] [id number] [place] [address] 54174- 7493 Jul, [facility] [address] [place] [id number] Jun, Other chronic pain G89.29 ; Hayes catheter in place Z92.89 ; Chronic kidney disease (CKD), unspecified stage N18.9 and Blisters of multiple sites R23.8 [facility] [address] [id number] [place] [address]- 5067 Jun, [facility] [address] [id number] [place] [address]- 5440 Jun, [facility] [address] [id number] [place] [address]- 9622 Jun, [facility] [address] [id number] [place] [address]- 6353 Jun, [facility] [address] [id number] [place] [address]- 7292 Jun, [facility] [address] [id number] [place] [address]- 7770 Jun, [facility] [address] [id number] [place] [address]- 1602 Jun, [facility] [address] [facility] [id number] [place] [address]- 8292 Jun, [facility] [address] [id number] [place] [address]- 4570 Jun, [facility] [address] [facility] [id number] [place] [address]- 5130 Jun, [facility] [address] [facility] [id number] [place] [address]- 7410 Jun, [facility] [address] [facility] [id number] [place] [address]- 9089 May, [facility] [address] [facility] [id number] [place] [address]- 6830 May, [facility] [address] [facility] [id number] [address]- 7350 May, Other chronic pain G89.29 [facility] [address] [place] [id number] May, Encounter to establish care Z76.89 ; [...] Acute Kidney Injury 08/05/16 Hospitalization History UTI, Sepsis--[facility] Hospitalization History Chest pain/SOB/A-fib 02/2017 Hospitalization History Chest pain-[facility] 04/13/17 Hospitalization History UTI, respiratory failure, altered mental status-[facility] 09/13/17
--- OUTSIDE RECORDS SUMMARY | 2018-09-17 19:28 | XMS REPORT ---
Author Author LATONYA KIM [facility] Address [address] [place] [address] Care Team Providers Care Corporate Development Manager Name Role Phone LATONYA KIM Unavailable PROBLEMS Type Condition ICD9-CM Code VMQ12-TP Code Onset Dates Condition Status SNOMED Code Problem Ulcer L98.499 Active 573477153 Problem Chronic fatigue R53.82 Active 90447264 Problem Decreased renal function N28.9 Active 54617317 Problem Nephrolithiasis N20.0 Active 54079793 Problem Chronic kidney disease (CKD), unspecified stage N18.9 Active 395684128 Problem Venous stasis dermatitis of both lower extremities I87.2 Active 33290188 Problem Urinary incontinence, unspecified type R32 Active 597427262 Problem Morbid obesity due to excess calories E66.01 Active 286096851 Problem Anxiety F41.9 Active 28068195 Problem Bladder spasms N32.89 Active 480768602 Problem Stage 4 chronic kidney disease N18.4 Active 465088624 Problem Primary insomnia F51.01 Active 3831547 Problem Hypothyroidism, unspecified type E03.9 Active 98074219 Problem Cataract H26.9 Active 885708934 Problem Type 2 diabetes mellitus without complication, 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 Active 96850218 Problem Depression, unspecified depression type F32.9 Active 44231150 Problem Other chronic pain G89.29 Active 92882057 Problem Perennial allergic rhinitis, unspecified allergic rhinitis trigger J30.89 Active 201383775 Problem Obstructive sleep apnea syndrome G47.33 Active 59296871 Problem Restless leg syndrome G25.81 Active 33939421 Problem Closed fracture of left patella, unspecified fracture morphology, sequela S82.002S Active 23156163 Problem Gastroesophageal reflux disease without esophagitis K21.9 Active 040417673 Problem Atrial fibrillation, unspecified type I48.91 Active 67952281 ALLERGIES No Information ENCOUNTERS Encounter Location Date Diagnosis [facility] [id number] [place] [address] 18199- 1155 May, Other chronic pain G89.29 ; Arthralgia, unspecified joint M25.50 and Primary insomnia F51.01 [facility] [id number] [place] [address] 91677- 9101 May, Urinary tract infection without hematuria, site unspecified N39.0 [facility] [id number] [place] [address] 67878- 4156 May, Bladder spasms N32.89 [facility] [id number] [place] [address] 72146- 8868 May, Primary insomnia F51.01 [facility] [id number] [place] [address] 42468- 7601 May, [facility] [id number] [place] [address] 24457- 2809 May, Primary insomnia F51.01 and Arthralgia, unspecified joint M25.50 [facility] [id number] [place] [address] 94818- 4512 May, Other chronic pain G89.29 [facility] [address] [place] [id number] May, Nephrolithiasis N20.0 ; Cataract H26.9 and Macrocytic anemia D53.9 [facility] [id number] [place] [address] 81044- 0854 May, [facility] [id number] [place] [address] 49222- 8238 Apr, [facility] [id number] [place] [address] 07928- 6968 Apr, [facility] [id number] [place] [address] 30999- 5999 Apr, Primary insomnia F51.01 [facility] [id number] [place] [address] 90061- 3182 Apr, [facility] [address] [address] 4952 March, Other chronic pain G89.29 [facility] [address] [place] [id number] March, Arthralgia, unspecified joint M25.50 ; Abnormal urine sediment R82.90 ; Venous stasis dermatitis of both lower extremities I87.2 ; Stage 4 chronic kidney disease N18.4 and Cataract of right eye, unspecified cataract type H26.9 [facility] [address] [place] [address] 10409- 8107 March, Primary insomnia F51.01 [facility] [address] [place] [id number] March, Cervicalgia M54.2 ; Acute pain of right shoulder M25.511 and Pain of left femur M89.8X5 [facility] [id number] [place] [address] 08840- 0138 March, [facility] [id number] [place] [address] 95258- 5664 March, Other chronic pain G89.29 [facility] [id number] [place] [address] 94930- 2484 Feb, [facility] [address] [place] [id number] Feb, Leg swelling M79.89 [facility] [address] [place] [address] 75687- 7257 Feb, Primary insomnia F51.01 [facility] [address] [place] [id number] Feb, Fever in other diseases R50.81 and Intermittent left lower quadrant abdominal pain R10.32 [facility] [address] [place] [address] 30315- 5037 Feb, [facility] [address] [place] [address] 56433- 7385 Feb, [facility] [address] [address]- 8149 Feb, Depression, unspecified depression type F32.9 ; Hypothyroidism, unspecified type E03.9 ; Type 2 diabetes mellitus without complication, unspecified mcc insulin use status E11.9 and Anxiety F41.9 [facility] [address], [place] [address]- 4167 Feb, Other chronic pain G89.29 [facility] [id number] [place] [address] [id number] Jan, Other chronic pain G89.29 [facility] [id number] [place] [address] 47132- 8660 Jan, Bladder spasms N32.89 [facility] [id number] [place] [address] 57384- 7459 Jan, Bladder spasms N32.89 [facility] [id number] [place] [address] 51927- 4464 Dec, Bladder spasms N32.89 [facility] [id number] [place] [address] 03189- 9640 Dec, Depression, unspecified depression type F32.9 [facility] [address] [address]- 0926 Dec, [facility] [address] [place] [id number] Dec, Hypothyroidism, unspecified type E03.9 ; Depression, unspecified depression type F32.9 ; Other chronic pain G89.29 ; Urinary retention R33.9 and Atrial fibrillation, unspecified type I48.91 [facility] [id number] [place] [address] [id number] Dec, [facility] [id number] [place] [address] [id number] Dec, Other chronic pain G89.29 [facility] [id number] [place] [address] [id number] Nov, [facility] [id number] [place] [address] [id number] Nov, Other chronic pain G89.29 [facility] [address] [place] [address] 19533- 6416 Nov, Other chronic pain G89.29 [facility] [address] [place] [address] 68168- 5592 Nov, [facility] [id number] [place] [address] 02286- 1594 Nov, [facility] [id number] [place] [address] 235448- 3178 Nov, Other chronic pain G89.29 [facility] [id number] [place] [address] 50332- 4266 Nov, Other chronic pain G89.29 [facility] [id number] [place] [address] 35342- 7481 Oct, [facility] [id number] [place] [address] 38493- 7653 Oct, Other chronic pain G89.29 [facility] [address] [place] [id number] Oct, Weakness R53.1 ; Macrocytic anemia D53.9 ; Discolored skin L81.9 ; Other chronic pain G89.29 ; Dysuria R30.0 and Hayes catheter in place Z92.89 [facility] [address] [place] [address] [id number]- 5833 Oct, Other chronic pain G89.29 [facility] [id number] [place] [address] [id number] Sep, [facility] [id number] [place] [address] [id number]- 9865 Sep, [facility] [address] [place] [address] [id number]- 9362 Sep, [facility] [id number] [id number] Sep, [facility] [id number] [place] [address] [id number] Sep, Other chronic pain G89.29 [facility] [id number] [place] [address] 46739- 4176 Sep, [facility] [id number] [place] [address] [id number] Sep, Other chronic pain G89.29 [facility] [address] [place] [id number] Sep, Chronic urinary tract infection N39.0 ; Other chronic pain G89.29 ; Chronic kidney disease (CKD), unspecified stage N18.9 ; Type 2 diabetes mellitus without complication, 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 ; Hypothyroidism, unspecified type E03.9 ; Depression, unspecified depression type F32.9 ; Cataract H26.9 ; Obstructive sleep apnea syndrome G47.33 ; Atrial fibrillation, unspecified type I48.91 ; History of femur fracture Z87.81 and Hayes catheter in place Z92.89 [facility] [id number] [place] [address] [id number]- 2176 Sep, [facility] [id number] [place] [address] [id number]- 6921 Aug, [facility] [id number] [place] [address] [id number]- 1434 Aug, Other chronic pain G89.29 [facility] [address] [address] 4355 Aug, [facility] [id number] [place] [address] [id number]- 5169 Aug, [facility] [id number] [place] [address] [id number] Aug, [facility] [id number] [place] [address] 79594- 8354 23 Aug, 2017 [facility] [address] [address]- 0444 Aug, 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, 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 [facility] [address] [address]- 2476 19 Aug, 2017 Other chronic pain G89.29 [facility] [id number] [place] [address] 29347 2546 18 Aug, 2017 [facility] [address] [place] [address] 06432- 0108 16 Aug, 2017 [facility] [id number] [place] [address] 67100- 1888 22 Jul, 2017 Other chronic pain G89.29 [facility] [address], [place] [address] 2546 19 Jul, 2017 [facility] [address] [place] [address] 99784 2540 19 Jul, 2017 Dark brown urine R82.99 [facility] [id number] [place] [address] 08132 2546 19 Jul, 2017 Dark brown urine R82.99 [facility] [address] [address] 2549 14 Jul, 2017 [facility] [address], [place] [address] 2544 Jun, Other chronic pain G89.29 [facility] [address] [address]- 9284 10 Jun, 2017 Type 2 diabetes mellitus without complication, unspecified mcc insulin use status E11.9 [facility] [address] [address]- 4810 31 May, 2017 Candidiasis, intertrigo B37.2 [facility] [address], [place] [address]- 7724 May, Other chronic pain G89.29 [facility] [address] [address]- 3943 May, [facility] [id number] [place] [address] 43800- 6451 May, [facility] [id number] [place] [address] 28189- 4636 May, Candidiasis, intertrigo B37.2 [facility] [id number] [place] [address] 20318- 5410 May, Atrial fibrillation, unspecified type I48.91 [facility] [id number] [place] [address] 13737- 9154 May, Hypothyroidism, unspecified type E03.9 and Decreased renal function N28.9 [place] [id number] [place] [address] 74174- 3674 May, Type 2 diabetes mellitus without complication, unspecified mcc insulin use status E11.9 [facility] [id number] [place] [address] 79367- 8803 May, Dental examination Z01.20 [facility] [id number] [place] [address] 26035- 9474 May, Chronic kidney disease (CKD), unspecified stage N18.9 ; Type 2 diabetes mellitus without complication, unspecified mcc insulin use status E11.9 ; Hypothyroidism, unspecified type E03.9 ; Depression, unspecified depression type F32.9 ; Anemia, unspecified type D64.9 and Ulcer L98.499 [facility] [address] [place] [address] 82995- 9302 May, [facility] [id number] [place] [address] 16316- 4747 Apr, Other chronic pain G89.29 [facility] [id number] [place] [address] 33063- 2872 Apr, Other chronic pain G89.29 [facility] [address], [place] [address]- 1853 March, [facility] [address] [address]- 2336 March, [facility] [address] [address]- 6798 March, [facility] [id number] [place] [address] 97929- 7324 March, Other chronic pain G89.29 [facility] [address] [place] [address] 67744- 6092 March, [facility] [address] [place] [address] 13326- 8588 Feb, [facility] [id number] [place] [address] 39086- 9383 Feb, Type 2 diabetes mellitus without complication, unspecified mcc insulin use status E11.9 ; Candidiasis, intertrigo B37.2 ; Decubitus ulcer of left buttock, unstageable L89.320 and Pressure ulcer of contiguous region involving right buttock and hip, unspecified ulcer stage L89.40 [facility] [address], [place] [address]- 9534 Feb, Atrial fibrillation, unspecified type I48.91 [facility] [address], [place] [address]- 3634 Feb, [facility] [address], [place] [address]- 2135 Feb, [facility] [id number] [place] [address] 60585- 7375 Feb, Other chronic pain G89.29 [facility] [address], [place] [address]- 8321 Jan, Other chronic pain G89.29 [facility] [address] [address]- 3717 28 Dec, 2016 [facility] [address], [place] [address]- 0226 Dec, Lethargy R53.83 [facility] [address], [place] [address] 2546 17 Dec, 2016 [facility] [address] [place] [address] 55566- 7326 10 Dec, 2016 Other chronic pain G89.29 [facility] [address], [place] [address]- 7091 Nov, [facility] [address] [place] [address] 57242- 8991 Nov, [facility] [address] [address]- 2203 Nov, Other chronic pain G89.29 [facility] [address], [place] [address]- 4825 Nov, [facility] [address], [place] [address]- 6565 Nov, [facility] [address], [place] [address]- 9999 Nov, [facility] [address], [place] [address]- 4495 Oct, Cough R05 [facility] [address], [place] [address]- 8379 Oct, Urinary tract infection, site not specified N39.0 [facility] [address], [place] [address]- 1493 16 Oct, 2016 Other chronic pain G89.29 [facility] [address], [place] [address]- 1392 15 Oct, 2016 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, 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 [...] J30.89 ; Nausea R11.0 and Candidiasis B37.9 [facility] [address] 03097- 7837 Oct, [facility] [address] 68064- 8289 Oct, [facility] [address] 72500- 0492 Oct, [facility] [address] 02638- 1979 Oct, Chronic kidney disease (CKD), unspecified stage N18.9 [facility] [address] 11799- 4851 Oct, [facility] [address] 91258- 3608 Sep, Other chronic pain G89.29 [facility] [id number] [place] [address] 60580- 1775 Sep, Chronic kidney disease (CKD), unspecified stage N18.9 and Senile cataract of right eye, unspecified age-related cataract type H25.9 [facility] [address] 07356- 9294 Sep, [facility] [address] 97589- 1796 Sep, [facility] [address] 17462- 8405 Sep, [facility] [id number] [address]- 3364 Sep, [facility] [address], [place] [address]- 1741 Sep, [facility] [address], [place] [address]- 2596 Aug, [facility] [address] [address]- 5041 Aug, [facility] [address], [place] [address]- 5679 Aug, [facility] [address], [place] [address]- 7490 Aug, Encounter to establish care Z76.89 ; Other chronic pain G89.29 ; Chronic kidney disease (CKD), unspecified stage N18.9 ; Obstructive sleep apnea syndrome G47.33 ; Type 2 diabetes mellitus without complication, unspecified mcc insulin use status E11.9 ; Urinary incontinence, unspecified type R32 ; Depression, unspecified depression type F32.9 ; History of femur fracture Z87.81 ; History of fractured kneecap Z87.81 ; Hypothyroidism , unspecified type E03.9 ; Cataract H26.9 and Gastroesophageal reflux disease without esophagitis K21.9 [facility] [address], [place] [address]- 7228 14 Aug, 2016 [facility] [id number] [address]- 6500 Aug, Urinary incontinence, unspecified type R32 [facility] [id number] [address]- 0284 Aug, [facility] [address], [place] [address]- 1652 Jul, [facility] [address] [place] [id number] Jul, 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, 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 [...] E03.9 and Constipation, unspecified constipation type K59.00 [facility] [address] 53639- 6011 Jul, [facility] [address] 16140- 2948 Jul, [facility] [id number] Jul, Anemia, unspecified type D64.9 ; Acute renal failure, unspecified acute renal failure type N17.9 ; Other chronic pain G89.29 ; Obstructive sleep apnea syndrome G47.33 and Type 2 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 mellitus 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 complication, 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 [facility] [id number] [place] [address] 11382- 8576 Jul, [facility] [id number] [place] [address] 80203- 7384 Jul, [facility] [id number] [place] [address] 18529- 8836 Jul, [facility] [address] 43126- 1775 Jul, [facility] [id number] [place] [address] 03119- 0889 Jul, [facility] [address] [place] [id number] Jun, Other chronic pain G89.29 ; Hayes catheter in place Z92.89 ; Chronic kidney disease (CKD), unspecified stage N18.9 and Blisters of multiple sites R23.8 [facility] [address] [id number] [place] [address]- 9879 Jun, [facility] [address] [id number] [place] [address]- 4731 Jun, [facility] [address] [id number] [place] [address]- 6936 Jun, [facility] [address] [id number] [place] [address]- 6693 Jun, [facility] [address] [id number] [place] [address]- 2496 Jun, [facility] [address] [id number] [place] [address]- 3373 Jun, [facility] [address] [id number] [place] [address]- 2228 Jun, [facility] [address] [facility] [id number] [place] [address]- 3552 Jun, [facility] [address] [id number] [place] [address]- 4987 Jun, [facility] [address] [facility] [id number] [place] [address]- 7833 Jun, [facility] [address] [facility] [id number] [place] [address]- 7104 Jun, [facility] [address] [facility] [id number] [place] [address]- 5592 May, [facility] [address] [facility] [id number] [place] [address]- 1772 May, [facility] [address] [facility] [id number] [address]- 7474 May, Other chronic pain G89.29 [facility] [address] [place] [id number] May, Encounter to establish care Z76.89 ; Type 2 diabetes mellitus without complication, unspecified mcc insulin use status E11.9 ; Hypothyroidism, unspecified [...] HISTORY Never Assessed REASON FOR VISIT FU after labs PLAN OF CARE Activity Details Follow Up prn Reason: VITAL SIGNS MEDICATIONS Unknown Medications RESULTS No Results PROCEDURES Procedure Date Ordered Result Body Site Significant Complication (25 mins) March 08, 2018 INSTRUCTIONS MEDICATIONS ADMINISTERED No Known Medications [...]
--- OUTSIDE RECORDS SUMMARY | 2018-09-17 19:28 | XMS REPORT ---
Author Author LATONYA KIM [facility] Address [address] [place] [address] Care Team Providers Care Neurodiagnostic Technician Name Role Phone LATONYA KIM Unavailable PROBLEMS Type Condition ICD9-CM Code THW72-NZ Code Onset Dates Condition Status SNOMED Code Problem Ulcer L98.499 Active 898133287 Problem Chronic fatigue R53.82 Active 27466021 Problem Decreased renal function N28.9 Active 47499864 Problem Nephrolithiasis N20.0 Active 32571326 Problem Chronic kidney disease (CKD), unspecified stage N18.9 Active 868117036 Problem Venous stasis dermatitis of both lower extremities I87.2 Active 61601363 Problem Urinary incontinence, unspecified type R32 Active 836432823 Problem Morbid obesity due to excess calories E66.01 Active 267490324 Problem Anxiety F41.9 Active 80299547 Problem Bladder spasms N32.89 Active 383685301 Problem Stage 4 chronic kidney disease N18.4 Active 522125173 Problem Primary insomnia F51.01 Active 7496183 Problem Hypothyroidism, unspecified type E03.9 Active 44196222 Problem Cataract H26.9 Active 598532374 Problem Type 2 diabetes mellitus without complication, 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.9 Active 95257046 Problem Depression, unspecified depression type F32.9 Active 83716024 Problem Other chronic pain G89.29 Active 82419560 Problem Perennial allergic rhinitis, unspecified allergic rhinitis trigger J30.89 Active 215011676 Problem Obstructive sleep apnea syndrome G47.33 Active 42053007 Problem Restless leg syndrome G25.81 Active 00640860 Problem Closed fracture of left patella, unspecified fracture morphology, sequela S82.002S Active 97212050 Problem Gastroesophageal reflux disease without esophagitis K21.9 Active 647378578 Problem Atrial fibrillation, unspecified type I48.91 Active 02421134 ALLERGIES No Information ENCOUNTERS Encounter Location Date Diagnosis [facility] [id number] [place] [address] 31566- 2044 May, Other chronic pain G89.29 ; Arthralgia, unspecified joint M25.50 and Primary insomnia F51.01 [facility] [id number] [place] [address] 25360- 4544 May, Urinary tract infection without hematuria, site unspecified N39.0 [facility] [id number] [place] [address] 15931- 4576 May, Bladder spasms N32.89 [facility] [facility] [id number] [place] [address] 75040- 8251 May, Primary insomnia F51.01 [place] [id number] [place] [address] 57623- 8637 May, [facility] [facility] [id number] [place] [address] 17446- 8472 May, Primary insomnia F51.01 and Arthralgia, unspecified joint M25.50 [facility] [facility] [id number] [place] [address] 19105- 9750 May, Other chronic pain G89.29 [facility] [place] [address] [place], [place] [id number] May, Nephrolithiasis N20.0 ; Cataract H26.9 and Macrocytic anemia D53.9 [place] [id number] [place] [address] 05156- 7531 May, [facility] [id number] [place] [address] 11288- 0038 Apr, [facility] [facility] [id number] [place] [address] 90946- 3598 Apr, [facility] [id number] [place] [address] 99995- 7792 Apr, Primary insomnia F51.01 [facility] [id number] [place] [address] 35994- 8216 Apr, [facility] [address] [address] 3838 March, Other chronic pain G89.29 [facility] [address] [place] [id number] March, Arthralgia, unspecified joint M25.50 ; Abnormal urine sediment R82.90 ; Venous stasis dermatitis of both lower extremities I87.2 ; Stage 4 chronic kidney disease N18.4 and Cataract of right eye, unspecified cataract type H26.9 [place] [address] [place] [address] 79167- 3997 March, Primary insomnia F51.01 [facility] [address] [place] [id number] March, Cervicalgia M54.2 ; Acute pain of right shoulder M25.511 and Pain of left femur M89.8X5 [facility] [facility] [id number] [place] [address] 14218- 4363 March, [facility] [facility] [id number] [place] [address] 73560- 1516 March, Other chronic pain G89.29 [facility] [facility] [id number] [place] [address] 62243- 3373 Feb, [facility] [address] [place] [id number] Feb, Leg swelling M79.89 [place] [address] [place] [address] 74675- 1692 Feb, Primary insomnia F51.01 [facility] [address] [place] [id number] Feb, Fever in other diseases R50.81 and Intermittent left lower quadrant abdominal pain R10.32 [place] [address] [place] [address] 97545- 8987 Feb, [place] [address] [place] [address] 73737- 0021 Feb, [place] [address] [place] [address]- 0581 Feb, Depression, unspecified depression type F32.9 ; Hypothyroidism, unspecified type E03.9 ; Type 2 diabetes mellitus without complication, unspecified fpc insulin use status E11.9 and Anxiety F41.9 [place] [address], [place] [address] 7060 Feb, Other chronic pain G89.29 [place] [facility] [id number] [place] [address] [id number] Jan, Other chronic pain G89.29 [facility] [facility] [id number] [place] [address] 76099- 4001 Jan, Bladder spasms N32.89 [place] [id number] [place] [address] 05141- 3382 Jan, Bladder spasms N32.89 [facility] [facility] [id number] [place] [address] 21069- 8841 Dec, Bladder spasms N32.89 [facility] [facility] [id number] [place] [address] 03241- 6854 Dec, Depression, unspecified depression type F32.9 [place] [address], [place] [address]- 3458 Dec, [facility] [place] [address] [place] [id number] Dec, Hypothyroidism, unspecified type E03.9 ; Depression, unspecified depression type F32.9 ; Other chronic pain G89.29 ; Urinary retention R33.9 and Atrial fibrillation, unspecified type I48.91 [place] [id number] [place] [address] [id number] Dec, [place] [id number] [place] [address] [id number] Dec, Other chronic pain G89.29 [place] [id number] [place] [id number] Nov, [facility] [id number] [place] [address] [id number] Nov, Other chronic pain G89.29 [facility] [address] [place] [address] 84112- 0646 Nov, Other chronic pain G89.29 [facility] [address] [place] [address] 43061- 9067 Nov, [facility] [id number] [place] [address] 01684- 2361 Nov, [facility] [id number] [place] [address] 645838- 3834 Nov, Other chronic pain G89.29 [facility] [id number] [place] [address] 48686- 5850 Nov, Other chronic pain G89.29 [facility] [id number] [place] [address] 12567- 2409 Oct, [facility] [id number] [place] [address] 05351- 9741 Oct, Other chronic pain G89.29 [facility] [place] [address] [place] [id number] Oct, Weakness R53.1 ; Macrocytic anemia D53.9 ; Discolored skin L81.9 ; Other chronic pain G89.29 ; Dysuria R30.0 and Hayes catheter in place Z92.89 [facility] [address] [place] [address] [phone]- 3769 Oct, Other chronic pain G89.29 [facility] [id number] [place] [address] [id number] Sep, [facility] [id number] [place] [address] [id number]- 0066 Sep, [facility] [address] [place] [address] [id number]- 7780 Sep, [facility] [address] [id number] Sep, [facility] [id number] [place] [address] [id number] Sep, Other chronic pain G89.29 [facility] [id number] [place] [address] 47902- 5506 Sep, [facility] [id number] [place] [address] [id number] Sep, Other chronic pain G89.29 [facility] [place] [address] [place] [id number] Sep, Chronic urinary tract infection N39.0 ; [...] [facility] [id number] [place] [address] [phone]- 0691 Sep, [facility] [id number] [place] [address] [id number]- 6683 Aug, [facility] [id number] [place] [address] [id number]- 7940 Aug, Other chronic pain G89.29 [facility] [address] [address] 7478 Aug, [facility] [id number] [place] [address] 57599510- 5877 Aug, 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 [facility] [address], [place] [address]- 0516 19 Aug, 2017 Other chronic pain G89.29 [facility] [id number] [place] [address] 69007 2546 18 Aug, 2017 [facility] [address] [place] [address] 19319- 8795 16 Aug, 2017 [facility] [id number] [place] [address] 76371- 3123 22 Jul, 2017 Other chronic pain G89.29 [facility] [address], [place] [address] 2546 19 Jul, 2017 [facility] [address] [place] [address] 49997 2544 19 Jul, 2017 Dark brown urine R82.99 [facility] [id number] [place] [address] 64522 2546 19 Jul, 2017 Dark brown urine R82.99 [facility] [address], [place] [address] 2549 14 Jul, 2017 [facility] [address], [place] [address] 2542 Jun, Other chronic pain G89.29 [facility] [address], [place] [address]- 5893 10 Jun, 2017 Type 2 diabetes mellitus without complication, unspecified fpc insulin use status E11.9 [facility] [address], [place] [address]- 4829 31 May, 2017 Candidiasis, intertrigo B37.2 [facility] [address], [place] [address]- 4140 May, Other chronic pain G89.29 [place] [address], [place] [address]- 4121 May, [place] [facility] [id number] [place] [address] 37168- 6486 May, [place] [facility] [id number] [place] [address] 97330- 6872 May, Candidiasis, intertrigo B37.2 [place] [address] [place] [address] 56419- 5300 May, Atrial fibrillation, unspecified type I48.91 [place] [address] [place] [address] 89818- 0841 May, Hypothyroidism, unspecified type E03.9 and Decreased renal function N28.9 [place] [id number] [place] [address] 69713- 7110 May, Type 2 diabetes mellitus without complication, unspecified fpc insulin use status E11.9 [facility] [facility] [id number] [place] [address] 15746- 8389 May, Dental examination Z01.20 [facility] [facility] [id number] [place] [address] 93214- 4751 May, Chronic kidney disease (CKD), unspecified stage N18.9 ; Type 2 diabetes mellitus without complication, unspecified fpc insulin use status E11.9 ; Hypothyroidism, unspecified type E03.9 ; Depression, unspecified depression type F32.9 ; Anemia, unspecified type D64.9 and Ulcer L98.499 [place] [address] [place] [address] 13576- 2116 May, [place] [facility] [id number] [place] [address] 76606- 9586 Apr, Other chronic pain G89.29 [facility] [facility] [address] [place] [address] 67584- 0419 Apr, Other chronic pain G89.29 [facility] [address], [place] [address]- 9051 March, [facility] [address], [place] [address]- 0238 March, [facility] [address], [place] [address]- 4970 March, [facility] [id number] [place] [address] 84250- 1988 March, Other chronic pain G89.29 [facility] [address] [place] [address] 09894- 8534 March, [facility] [address] [place] [address] 15839- 9643 Feb, [facility] [id number] [place] [address] 74033- 8146 Feb, Type 2 diabetes mellitus without complication, unspecified fpc insulin use status E11.9 ; Candidiasis, intertrigo B37.2 ; Decubitus ulcer of left buttock, unstageable L89.320 and Pressure ulcer of contiguous region involving right buttock and hip, unspecified ulcer stage L89.40 [facility] [address], [place] [address]- 4335 Feb, Atrial fibrillation, unspecified type I48.91 [facility] [address], [place] [address]- 7436 Feb, [facility] [address], [place] [address]- 6386 Feb, [facility] [id number] [place] [address] 81896- 3542 Feb, Other chronic pain G89.29 [facility] [address], [place] [address]- 9052 Jan, Other chronic pain G89.29 [facility] [address], [place] [address]- 2129 28 Dec, 2016 [facility] [address], [place] [address]- 6436 Dec, Lethargy R53.83 [facility] [address], [place] [address] 2546 17 Dec, 2016 [facility] [address] [place] [address] 19748- 7723 10 Dec, 2016 Other chronic pain G89.29 [facility] [address], [place] [address]- 2031 Nov, [facility] [address] [place] [address] 62753- 3058 Nov, [facility] [address], [place] [address]- 5365 Nov, Other chronic pain G89.29 [facility] [address], [place] [address]- 0763 Nov, [facility] [address], [place] [address]- 9869 Nov, [facility] [address], [place] [address]- 4692 Nov, [facility] [address], [place] [address]- 3751 Oct, Cough R05 [facility] [address], [place] [address]- 3000 Oct, Urinary tract infection, site not specified N39.0 [facility] [address], [place] [address]- 3785 16 Oct, 2016 Other chronic pain G89.29 [facility] [address], [place] [address]- 1390 15 Oct, 2016 Type 2 diabetes mellitus [...] J30.89 ; Nausea R11.0 and Candidiasis B37.9 [place] [address] 72960- 3667 Oct, [place] [address] 25815- 3356 Oct, [place] [address] 71372- 5366 Oct, [place] [address] 80958- 7091 Oct, Chronic kidney disease (CKD), unspecified stage N18.9 [place] [address] 82392- 0137 Oct, [place] [address] 91694- 0741 Sep, Other chronic pain G89.29 [facility] [id number] [place] [address] 97985- 6802 Sep, Chronic kidney disease (CKD), unspecified stage N18.9 and Senile cataract of right eye, unspecified age-related cataract type H25.9 [place] [address] 61317- 7709 Sep, [place] [address] 22807- 5286 Sep, [place] [address] 11082- 3966 Sep, [place] [id number], [place] [address]- 2034 Sep, [facility] [address], [place] [address]- 3487 Sep, [facility] [address], [place] [address]- 8435 Aug, [facility] [address], [place] [address]- 6778 Aug, [facility] [address], [place] [address]- 3338 Aug, [place] [address], [place] [address]- 5694 Aug, Encounter to establish care Z76.89 ; Other chronic pain G89.29 ; Chronic kidney disease (CKD), unspecified stage N18.9 ; Obstructive sleep apnea syndrome G47.33 ; Type 2 diabetes mellitus without complication, unspecified fpc insulin use status E11.9 ; Urinary incontinence, unspecified type R32 ; Depression, unspecified depression type F32.9 ; History of femur fracture Z87.81 ; History of fractured kneecap Z87.81 ; Hypothyroidism , unspecified type E03.9 ; Cataract H26.9 and Gastroesophageal reflux disease without esophagitis K21.9 [place] [address], [place] [address]- 1524 14 Aug, 2016 [facility] [id number], [place] [address]- 0462 Aug, Urinary incontinence, unspecified type R32 [facility] [id number], [place] [address]- 4289 Aug, [facility] [address], [place] [address]- 5039 Jul, [facility] [address] [place] [id number] Jul, Type 2 diabetes mellitus without complication, [...] E03.9 and Constipation, unspecified constipation type K59.00 [place] [address] 13262- 6428 Jul, [place] [address] 68896- 8000 Jul, [employer] [id number] Jul, Anemia, unspecified type D64.9 ; Acute renal failure, unspecified acute renal failure type N17.9 ; Other chronic pain G89.29 ; Obstructive sleep apnea syndrome G47.33 and Type 2 diabetes mellitus without complication, 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.9 [place] [id number] [place] [address] 49383- 3270 Jul, [place] [id number] [place] [address] 13222- 2650 Jul, [place] [id number] [place] [address] 31123- 1909 Jul, [place] [address] 68203- 7046 Jul, [place] [id number] [place] [address] 29467- 9499 Jul, [facility] [address] [place] [id number] Jun, Other chronic pain G89.29 ; Hayes catheter in place Z92.89 ; Chronic kidney disease (CKD), unspecified stage N18.9 and Blisters of multiple sites R23.8 [place] [address] [id number] [place] [address]- 6878 Jun, [facility] [address] [id number] [place] [address]- 1085 Jun, [facility] [address] [id number] [place] [address]- 8740 Jun, [facility] [address] [id number] [place] [address]- 1962 Jun, [facility] [address] [id number] [place] [address]- 1164 Jun, [facility] [address] [id number] [place] [address]- 9092 Jun, [facility] [address] [id number] [place] [address]- 5867 Jun, [facility] [address] [facility] [id number] [place] [address]- 9165 Jun, [facility] [address] [id number] [place] [address] Jun, [facility] [address] [facility] [id number] [place] [address] Jun, [facility] [address] [facility] [id number] [place] [address] Jun, [facility] [address] [facility] [id number] [place] [address] May, [facility] [address] [facility] [id number] [place] [address] May, [facility] [address] [facility] [id number], [place] [address] May, Other chronic pain G89.29 [facility] [address] [place], [place] [id number] May, Encounter to establish care Z76.89 ; Type 2 diabetes mellitus without complication, unspecified fpc insulin use status E11.9 ; Hypothyroidism, unspecified [...] SOCIAL HISTORY Never Assessed REASON FOR VISIT Concern for cellulitis PLAN OF CARE Activity Details Follow Up prn Reason: VITAL SIGNS MEDICATIONS Unknown Medications RESULTS No Results PROCEDURES Procedure Date Ordered Result Body Site Minor complication (15 mins) March 10, 2018 INSTRUCTIONS MEDICATIONS ADMINISTERED No Known Medications [...]
--- OUTSIDE RECORDS SUMMARY | 2018-09-17 19:29 | XMS REPORT ---
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 Name Role Phone LATONYA KMI Unavailable PROBLEMS Type Condition ICD9-CM Code DPK15-HT Code Onset Dates Condition Status SNOMED Code Problem Ulcer L98.499 Active 169944238 Problem Chronic fatigue R53.82 Active 46798203 Problem Decreased renal function N28.9 Active 85897314 Problem Nephrolithiasis N20.0 Active 97711866 Problem Chronic kidney disease (CKD), unspecified stage N18.9 Active 008947240 Problem Venous stasis dermatitis of both lower extremities I87.2 Active 68100268 Problem Urinary incontinence, unspecified type R32 Active 961921253 Problem Morbid obesity due to excess calories E66.01 Active 488851364 Problem Anxiety F41.9 Active 28589166 Problem Bladder spasms N32.89 Active 401878548 Problem Stage 4 chronic kidney disease N18.4 Active 148587859 Problem Primary insomnia F51.01 Active 1253522 Problem Hypothyroidism, unspecified type E03.9 Active 75701048 Problem Cataract H26.9 Active 516597536 Problem Type 2 diabetes mellitus without complication, unspecified phlebotomy services representative insulin use status E11.9 Active 97272714 Problem Depression, unspecified depression type F32.9 Active 57573579 Problem Other chronic pain G89.29 Active 74470910 Problem Perennial allergic rhinitis, unspecified allergic rhinitis trigger J30.89 Active 701612743 Problem Obstructive sleep apnea syndrome G47.33 Active 29192042 Problem Restless leg syndrome G25.81 Active 05957262 Problem Closed fracture of left patella, unspecified fracture morphology, sequela S82.002S Active 15704929 Problem Gastroesophageal reflux disease without esophagitis K21.9 Active 028998736 Problem Atrial fibrillation, unspecified type I48.91 Active 49350703 ALLERGIES No Information ENCOUNTERS Encounter Location Date Diagnosis [facility] [id number] [place] [address] 58220- 4328 May, Other chronic pain G89.29 ; Arthralgia, unspecified joint M25.50 and Primary insomnia F51.01 [facility] [id number] [place] [address] 04488- 6016 May, Urinary tract infection without hematuria, site unspecified N39.0 [facility] [id number] [place] [address] 16630- 5896 May, Bladder spasms N32.89 [facility] [id number] [place] [address] 79141- 9560 May, Primary insomnia F51.01 [facility] [id number] [place] [address] 19994- 3091 May, [facility] [id number] [place] [address] 60410- 3362 May, Primary insomnia F51.01 and Arthralgia, unspecified joint M25.50 [facility] [id number] [place] [address] 73456- 2578 May, Other chronic pain G89.29 [facility] [address] [place] [id number] May, Nephrolithiasis N20.0 ; Cataract H26.9 and Macrocytic anemia D53.9 [facility] [id number] [place] [address] 18370- 6476 May, [facility] [id number] [place] [address] 38562- 9557 Apr, [facility] [id number] [place] [address] 93964- 7126 Apr, [facility] [id number] [place] [address] 91029- 0498 Apr, Primary insomnia F51.01 [facility] [id number] [place] [address] 69230- 2846 Apr, [facility] [address] [address] 7637 March, Other chronic pain G89.29 [facility] [address] [place] [id number] March, Arthralgia, unspecified joint M25.50 ; Abnormal urine sediment R82.90 ; Venous stasis dermatitis of both lower extremities I87.2 ; Stage 4 chronic kidney disease N18.4 and Cataract of right eye, unspecified cataract type H26.9 [facility] [address] [place] [address] 16909- 4215 March, Primary insomnia F51.01 [facility] [address] [place] [id number] March, Cervicalgia M54.2 ; Acute pain of right shoulder M25.511 and Pain of left femur M89.8X5 [facility] [id number] [place] [address] 93501- 3580 March, [facility] [id number] [place] [address] 51894- 3737 March, Other chronic pain G89.29 [facility] [id number] [place] [address] 49876- 4785 Feb, [facility] [address] [place] [id number] Feb, Leg swelling M79.89 [facility] [address] [place] [address] 39470- 5884 Feb, Primary insomnia F51.01 [facility] [address] [place] [id number] Feb, Fever in other diseases R50.81 and Intermittent left lower quadrant abdominal pain R10.32 [facility] [address] [place] [address] 97992- 2089 Feb, [facility] [id number] [place] [address] 13038- 7916 Feb, [facility] [address], [place] [address] 2505 Feb, Depression, unspecified depression type F32.9 ; Hypothyroidism, unspecified type E03.9 ; Type 2 diabetes mellitus without complication, unspecified half-way insulin use status E11.9 and Anxiety F41.9 [facility] [address], [place] [address] 5113 Feb, Other chronic pain G89.29 [facility] [id number] [place] [address] [id number] Jan, Other chronic pain G89.29 [facility] [id number] [place] [address] 57030- 1543 Jan, Bladder spasms N32.89 [facility] [id number] [place] [address] 36561- 3302 Jan, Bladder spasms N32.89 [facility] [id number] [place] [address] 35446- 4426 Dec, Bladder spasms N32.89 [facility] [id number] [place] [address] 31453- 9554 Dec, Depression, unspecified depression type F32.9 [facility] [address], [place] [address]- 9674 Dec, [facility] [address] [place] [id number] Dec, Hypothyroidism, unspecified type E03.9 ; Depression, unspecified depression type F32.9 ; Other chronic pain G89.29 ; Urinary retention R33.9 and Atrial fibrillation, unspecified type I48.91 [facility] [id number] [place] [address] [id number] Dec, [facility] [id number] [place] [address] [id number] Dec, Other chronic pain G89.29 [facility] [id number] [place] [address] [id number] Nov, [facility] [id number] [place] [address] [id number] Nov, Other chronic pain G89.29 [facility] [address] [place] [address] 92425- 7646 Nov, Other chronic pain G89.29 [facility] [address] [place] [address] 05283- 4816 Nov, [facility] [id number] [place] [address] 94086- 7748 Nov, [facility] [id number] [place] [address] 485378- 6413 Nov, Other chronic pain G89.29 [facility] [id number] [place] [address] 36319- 0760 Nov, Other chronic pain G89.29 [facility] [id number] [place] [address] 78082- 2273 Oct, [facility] [id number] [place] [address] 91368- 0282 Oct, Other chronic pain G89.29 [facility] [address] [place] [id number] Oct, Weakness R53.1 ; Macrocytic anemia D53.9 ; Discolored skin L81.9 ; Other chronic pain G89.29 ; Dysuria R30.0 and Hayes catheter in place Z92.89 [facility] [address] [place] [address] [id number]- 9080 Oct, Other chronic pain G89.29 [facility] [id number] [place] [address] [id number] Sep, [facility] [id number] [place] [address] 22831465- 8727 Sep, [facility] [id number] [place] [address] 33832710- 3948 Sep, [facility] [id number] [id number] Sep, [facility] [id number] [place] [address] [id number] Sep, Other chronic pain G89.29 [facility] [id number] [place] [address] 79030- 1056 Sep, [facility] [id number] [place] [address] [id number] Sep, Other chronic pain G89.29 [facility] [address] [place] [id number] Sep, Chronic urinary tract infection N39.0 ; Other chronic pain G89.29 ; Chronic kidney disease (CKD), unspecified stage N18.9 ; Type 2 diabetes mellitus without complication, unspecified phlebotomy services representative insulin use status E11.9 ; Hypothyroidism, unspecified type E03.9 ; Depression, unspecified depression type F32.9 ; Cataract H26.9 ; Obstructive sleep apnea syndrome G47.33 ; Atrial fibrillation, unspecified type I48.91 ; History of femur fracture Z87.81 and Hayes catheter in place Z92.89 [facility] [id number] [place] [address] [id number]- 8294 Sep, [facility] [id number] [place] [address] [id number]- 0954 Aug, [facility] [id number] [place] [address] [id number]- 5714 Aug, Other chronic pain G89.29 [facility] [address] [address] 8466 Aug, [facility] [id number] [place] [address] [id number]- 5040 Aug, [facility] [id number] [place] [address] [id number] Aug, [facility] [id number] [place] [address] 18802- 7432 23 Aug, 2017 [facility] [address], [place] [address]- 4438 Aug, Type 2 diabetes mellitus without complication, unspecified phlebotomy services representative insulin use status E11.9 [facility] [address], [place] [address]- 4426 19 Aug, 2017 Other chronic pain G89.29 [facility] [id number] [place] [address] 40164 2546 18 Aug, 2017 [facility] [address] [place] [address] 18550- 6083 16 Aug, 2017 [facility] [id number] [place] [address] 77376- 7139 22 Jul, 2017 Other chronic pain G89.29 [facility] [address], [place] [address] 2546 19 Jul, 2017 [facility] [address] [place] [address] 00690 254 19 Jul, 2017 Dark brown urine R82.99 [facility] [id number] [place] [address] 88416 2546 19 Jul, 2017 Dark brown urine R82.99 [facility] [address], [place] [address] 2544 14 Jul, 2017 [facility] [address], [place] [address] 254 Jun, Other chronic pain G89.29 [facility] [address], [place] [address]- 2460 10 Jun, 2017 Type 2 diabetes mellitus without complication, unspecified half-way insulin use status E11.9 [facility] [address], [place] [address]- 3265 31 May, 2017 Candidiasis, intertrigo B37.2 [facility] [address], [place] [address]- 5090 May, Other chronic pain G89.29 [facility] [address], [place] [address]- 5662 May, [facility] [id number] [place] [address] 92845- 4345 May, [facility] [id number] [place] [address] 89014- 2875 May, Candidiasis, intertrigo B37.2 [facility] [id number] [place] [address] 85011- 9759 May, Atrial fibrillation, unspecified type I48.91 [facility] [id number] [place] [address] 62490- 2816 May, Hypothyroidism, unspecified type E03.9 and Decreased renal function N28.9 [place] [id number] [place] [address] 46764- 3008 May, Type 2 diabetes mellitus without complication, unspecified half-way insulin use status E11.9 [facility] [id number] [place] [address] 57545- 1413 May, Dental examination Z01.20 [facility] [id number] [place] [address] 77675- 6213 May, Chronic kidney disease (CKD), unspecified stage N18.9 ; Type 2 diabetes mellitus without complication, unspecified half-way insulin use status E11.9 ; Hypothyroidism, unspecified type E03.9 ; Depression, unspecified depression type F32.9 ; Anemia, unspecified type D64.9 and Ulcer L98.499 [facility] [address] [place] [address] 37121- 9977 May, [facility] [id number] [place] [address] 67965- 0094 Apr, Other chronic pain G89.29 [facility] [id number] [place] [address] 22744- 5404 Apr, Other chronic pain G89.29 [facility] [address], [place] [address]- 8988 March, [facility] [address], [place] [address]- 8177 March, [facility] [address], [place] [address]- 0552 March, [facility] [id number] [place] [address] 79347- 4541 March, Other chronic pain G89.29 [facility] [address] [place] [address] 47770- 5605 March, [facility] [id number] [place] [address] 85523- 2619 Feb, [facility] [id number] [place] [address] 32207- 2294 Feb, Type 2 diabetes mellitus without complication, unspecified half-way insulin use status E11.9 ; Candidiasis, intertrigo B37.2 ; Decubitus ulcer of left buttock, unstageable L89.320 and Pressure ulcer of contiguous region involving right buttock and hip, unspecified ulcer stage L89.40 [facility] [address], [place] [address]- 3235 Feb, Atrial fibrillation, unspecified type I48.91 [facility] [address], [place] [address]- 9173 Feb, [facility] [address], [place] [address]- 1071 Feb, [facility] [id number] [place] [address] 30043- 5237 Feb, Other chronic pain G89.29 [facility] [address], [place] [address]- 5645 Jan, Other chronic pain G89.29 [facility] [address] [address]- 6387 28 Dec, 2016 [facility] [address], [place] [address]- 1826 Dec, Lethargy R53.83 [facility] [address], [place] [address] 2546 17 Dec, 2016 [facility] [address] [place] [address] 05557- 8198 10 Dec, 2016 Other chronic pain G89.29 [facility] [address], [place] [address]- 6704 Nov, [facility] [address] [place] [address] 71057- 5921 Nov, [facility] [address], [place] [address]- 6660 Nov, Other chronic pain G89.29 [facility] [address], [place] [address]- 9281 Nov, [facility] [address], [place] [address]- 5794 Nov, [facility] [address], [place] [address]- 9865 Nov, [facility] [address], [place] [address]- 4497 Oct, Cough R05 [facility] [address], [place] [address]- 1464 Oct, Urinary tract infection, site not specified N39.0 [facility] [address], [place] [address]- 9700 16 Oct, 2016 Other chronic pain G89.29 [facility] [address], [place] [address]- 8239 15 Oct, 2016 Type 2 diabetes mellitus without complication, unspecified phlebotomy services representative insulin use status E11.9 ; Other [...] J30.89 ; Nausea R11.0 and Candidiasis B37.9 [facility] [address] 60575- 8224 Oct, [facility] [address] 59269- 8254 Oct, [facility] [address] 67301- 9018 Oct, [facility] [address] 67301- 9638 Oct, Chronic kidney disease (CKD), unspecified stage N18.9 [facility] [address] 41801- 4462 Oct, [facility] [address] 48238- 8545 Sep, Other chronic pain G89.29 [facility] [id number] [place] [address] 21232- 6241 Sep, Chronic kidney disease (CKD), unspecified stage N18.9 and Senile cataract of right eye, unspecified age-related cataract type H25.9 [facility] [address] 50035- 9104 Sep, [facility] [address] 68375- 3730 Sep, [facility] [address] 93748- 9869 Sep, [facility] [id number] [address]- 7147 Sep, [facility] [address], [place] [address]- 4338 Sep, [facility] [address], [place] [address]- 5141 Aug, [facility] [address], [place] [address]- 0625 Aug, [facility] [address], [place] [address]- 2529 Aug, [facility] [address], [place] [address]- 3651 Aug, Encounter to establish care Z76.89 ; Other chronic pain G89.29 ; Chronic kidney disease (CKD), unspecified stage N18.9 ; Obstructive sleep apnea syndrome G47.33 ; Type 2 diabetes mellitus without complication, unspecified half-way insulin use status E11.9 ; Urinary incontinence, unspecified type R32 ; Depression, unspecified depression type F32.9 ; History of femur fracture Z87.81 ; History of fractured kneecap Z87.81 ; Hypothyroidism , unspecified type E03.9 ; Cataract H26.9 and Gastroesophageal reflux disease without esophagitis K21.9 [facility] [address], [place] [address]- 9156 14 Aug, 2016 [facility] [id number], [place] [address]- 9954 Aug, Urinary incontinence, unspecified type R32 [facility] [id number], [place] [address]- 0668 Aug, [facility] [address], [place] [address]- 6355 Jul, [facility] [address] [place] [id number] Jul, Type 2 diabetes mellitus without complication, unspecified phlebotomy services representative insulin use status E11.9 ; Chronic [...] E03.9 and Constipation, unspecified constipation type K59.00 [place] [facility] [address] 75075- 0582 Jul, [place] [facility] [address] 79316- 7320 Jul, [facility] [id number] Jul, Anemia, unspecified type D64.9 ; Acute renal failure, unspecified acute renal failure type N17.9 ; Other chronic pain G89.29 ; Obstructive sleep apnea syndrome G47.33 and Type 2 diabetes mellitus without complication, unspecified phlebotomy services representative insulin use status E11.9 [facility] [id number] [place] [address] 68792- 2211 Jul, [facility] [id number] [place] [address] 56186- 6434 Jul, [facility] [id number] [place] [address] 68584- 8515 Jul, [place] [address] 75933- 5753 Jul, [facility] [id number] [place] [address] 74749- 8444 Jul, [facility] [address] [place] [id number] Jun, Other chronic pain G89.29 ; Hayes catheter in place Z92.89 ; Chronic kidney disease (CKD), unspecified stage N18.9 and Blisters of multiple sites R23.8 [facility] [address] [id number] [place] [address]- 3824 Jun, [facility] [address] [id number] [place] [address]- 9935 Jun, [facility] [address] [id number] [place] [address]- 8476 Jun, [facility] [address] [id number] [place] [address]- 7274 Jun, [facility] [address] [id number] [place] [address]- 9587 Jun, [facility] [address] [id number] [place] [address]- 0971 Jun, [facility] [address] [id number] [place] [address]- 3749 Jun, [facility] [address] [facility] [id number] [place] [address]- 0970 Jun, [facility] [address] [id number] [place] [address]- 8681 Jun, [facility] [address] [facility] [id number] [place] [address]- 9091 Jun, [facility] [address] [facility] [id number] [place] [address]- 4250 Jun, [facility] [address] [facility] [id number] [place] [address]- 2070 May, [facility] [address] [facility] [id number] [place] [address]- 5923 May, [facility] [address] [facility] [id number] [address]- 0988 May, Other chronic pain G89.29 [facility] [address] [place] [id number] May, Encounter to establish care Z76.89 ; Type 2 diabetes mellitus without complication, unspecified half-way insulin use status E11.9 ; Hypothyroidism, unspecified [...] SOCIAL HISTORY Never Assessed REASON FOR VISIT routine visit PLAN OF CARE Activity Details Follow Up prn Reason: VITAL SIGNS MEDICATIONS Medication Instructions Dosage Frequency Start Date End Date Duration Status Trintellix 10 mg orally once a day 2 tablet 24h May, Active Oxycodone-Acetaminophen 10-325 MG Orally 4 times a day 1 tablet 6h Feb, 28 days Active Oxybutynin Chloride 5 mg Orally Once a day 2 tablet 24h Jan, Active Tylenol 325 MG Orally every 6 hours as needed 2 tablet Dec, Active Milk of Magnesia 400 MG/5ML Orally Once a day 30 ml as needed 24h Dec, Active RESULTS No Results PROCEDURES Procedure Date Ordered Result Body Site Minor complication (15 mins) March 01, 2018 INSTRUCTIONS MEDICATIONS ADMINISTERED No Known Medications [...] History Chest pain/SOB/A-fib 02/2017 Hospitalization History Chest pain-[facility] 04/13/17 Hospitalization History UTI, respiratory failure, altered mental status-[facility] 09/13/17
--- OUTSIDE RECORDS SUMMARY | 2018-09-17 19:29 | XMS REPORT ---
Author Author LATONYA KIM [facility] Address [address] [place] [address] Care Team Providers Care Data Processing Supervisor Name Role Phone LATONYA KIM Unavailable PROBLEMS Type Condition ICD9-CM Code [id number] Code Onset Dates Condition Status SNOMED Code Problem Ulcer L98.499 Active 225893015 Problem Chronic fatigue R53.82 Active 11022919 Problem Decreased renal function N28.9 Active 50554499 Problem Nephrolithiasis N20.0 Active 32754045 Problem Chronic kidney disease (CKD), unspecified stage N18.9 Active 751866484 Problem Venous stasis dermatitis of both lower extremities I87.2 Active 69351160 Problem Urinary incontinence, unspecified type R32 Active 209746928 Problem Morbid obesity due to excess calories E66.01 Active 682773636 Problem Anxiety F41.9 Active 68806131 Problem Bladder spasms N32.89 Active 667993748 Problem Stage 4 chronic kidney disease N18.4 Active 877668660 Problem Primary insomnia F51.01 Active 8839010 Problem Hypothyroidism, unspecified type E03.9 Active 84370559 Problem Cataract H26.9 Active 158805164 Problem Type 2 diabetes mellitus without complication, unspecified long winder tender insulin use status E11.9 Active 23916816 Problem Depression, unspecified depression type F32.9 Active 48080769 Problem Other chronic pain G89.29 Active 06277139 Problem Perennial allergic rhinitis, unspecified allergic rhinitis trigger J30.89 Active 616363569 Problem Obstructive sleep apnea syndrome G47.33 Active 36434318 Problem Restless leg syndrome G25.81 Active 03708224 Problem Closed fracture of left patella, unspecified fracture morphology, sequela S82.002S Active 27940660 Problem Gastroesophageal reflux disease without esophagitis K21.9 Active 887549107 Problem Atrial fibrillation, unspecified type I48.91 Active 42210992 ALLERGIES No Information ENCOUNTERS Encounter Location Date Diagnosis [facility] [id number] [place] [address] 67004- 5001 May, Other chronic pain G89.29 ; Arthralgia, unspecified joint M25.50 and Primary insomnia F51.01 [facility] [id number] [place] [address] 05118- 2424 May, Urinary tract infection without hematuria, site unspecified N39.0 [facility] [id number] [place] [address] 22470- 1143 May, Bladder spasms N32.89 [facility] [id number] [place] [address] 41829- 5762 May, Primary insomnia F51.01 [facility] [id number] [place] [address] 25654- 8451 May, [facility] [id number] [place] [address] 60409- 2797 May, Primary insomnia F51.01 and Arthralgia, unspecified joint M25.50 [facility] [id number] [place] [address] 50284- 1401 May, Other chronic pain G89.29 [facility] [address] [place] [id number] May, Nephrolithiasis N20.0 ; Cataract H26.9 and Macrocytic anemia D53.9 [facility] [id number] [place] [address] 10050- 7916 May, [facility] [id number] [place] [address] 29538- 5181 Apr, [facility] [id number] [place] [address] 81151- 9022 Apr, [facility] [id number] [place] [address] 22317- 0894 Apr, Primary insomnia F51.01 [facility] [id number] [place] [address] 84077- 0389 Apr, [facility] [address] [address] 0865 March, Other chronic pain G89.29 [facility] [address] [place] [id number] March, Arthralgia, unspecified joint M25.50 ; Abnormal urine sediment R82.90 ; Venous stasis dermatitis of both lower extremities I87.2 ; Stage 4 chronic kidney disease N18.4 and Cataract of right eye, unspecified cataract type H26.9 [facility] [id number] [place] [address] 15327- 8529 March, Primary insomnia F51.01 [facility] [address] [place] [id number] March, Cervicalgia M54.2 ; Acute pain of right shoulder M25.511 and Pain of left femur M89.8X5 [facility] [id number] [place] [address] 50978- 5260 March, [facility] [id number] [place] [address] 56946- 5926 March, Other chronic pain G89.29 [facility] [id number] [place] [address] 27666- 6475 Feb, [facility] [address] [place] [id number] Feb, Leg swelling M79.89 [facility] [id number] [place] [address] 13994- 3985 Feb, Primary insomnia F51.01 [facility] [address] [place] [id number] Feb, Fever in other diseases R50.81 and Intermittent left lower quadrant abdominal pain R10.32 [facility] [id number] [place] [address] 64606- 7188 Feb, [facility] [place] [id number] [place] [address] 90764- 1719 Feb, [facility] [address] [address]- 5242 Feb, Depression, unspecified depression type F32.9 ; Hypothyroidism, unspecified type E03.9 ; Type 2 diabetes mellitus without complication, unspecified shelter insulin use status E11.9 and Anxiety F41.9 [facility] [address] [address]- 8941 Feb, Other chronic pain G89.29 [facility] [id number] [place] [address] [id number] Jan, Other chronic pain G89.29 [facility] [id number] [place] [address] 77433- 4187 Jan, Bladder spasms N32.89 [facility] [id number] [place] [address] 51043- 8331 Jan, Bladder spasms N32.89 [facility] [id number] [place] [address] 63526- 8634 Dec, Bladder spasms N32.89 [facility] [id number] [place] [address] 77074- 7286 Dec, Depression, unspecified depression type F32.9 [facility] [address] [address]- 0780 Dec, [facility] [address] [place] [id number] Dec, Hypothyroidism, unspecified type E03.9 ; Depression, unspecified depression type F32.9 ; Other chronic pain G89.29 ; Urinary retention R33.9 and Atrial fibrillation, unspecified type I48.91 [place] [id number] [place] [address] [id number] Dec, [facility] [id number] [place] [address] [id number] Dec, Other chronic pain G89.29 [place] [id number] [place] [address] [id number] Nov, [facility] [id number] [place] [address] [id number] Nov, Other chronic pain G89.29 [facility] [id number] [place] [address] 65151- 0576 Nov, Other chronic pain G89.29 [facility] [id number] [place] [address] 75185- 7364 Nov, [facility] [id number] [place] [address] 81334- 1049 Nov, [facility] [id number] [place] [address] 409446- 3983 Nov, Other chronic pain G89.29 [facility] [id number] [place] [address] 33637- 9707 Nov, Other chronic pain G89.29 [facility] [id number] [place] [address] 09642- 6765 Oct, [facility] [id number] [place] [address] 16882- 6139 Oct, Other chronic pain G89.29 [facility] [address] [place] [id number] Oct, Weakness R53.1 ; Macrocytic anemia D53.9 ; Discolored skin L81.9 ; Other chronic pain G89.29 ; Dysuria R30.0 and Hayes catheter in place Z92.89 [facility] [address] [place] [address] [id number]- 2907 Oct, Other chronic pain G89.29 [facility] [id number] [place] [address] [id number] Sep, [facility] [id number] [place] [address] [id number] Sep, [facility] [id number] [place] [address] [phone]- 8264 Sep, [facility] [id number] [place] [id number] Sep, [facility] [id number] [place] [address] [id number] Sep, Other chronic pain G89.29 [facility] [id number] [place] [address] 21169- 8056 Sep, [facility] [id number] [place] [address] [id number] Sep, Other chronic pain G89.29 [facility] [address] [place] [id number] Sep, Chronic urinary tract infection N39.0 ; Other chronic pain G89.29 ; Chronic kidney disease (CKD), unspecified stage N18.9 ; Type 2 diabetes mellitus without complication, unspecified long winder tender insulin use status E11.9 ; Hypothyroidism, unspecified type E03.9 ; Depression, unspecified depression type F32.9 ; Cataract H26.9 ; Obstructive sleep apnea syndrome G47.33 ; Atrial fibrillation, unspecified type I48.91 ; History of femur fracture Z87.81 and [address] catheter in place Z92.89 [facility] [id number] [place] [address] [phone] Sep, [facility] [id number] [place] [address] [id number]- [phone] Aug, [facility] [id number] [place] [address] [id number]- 3399 Aug, Other chronic pain G89.29 [facility] [address] [address]32 Aug, [facility] [id number] [place] [address] [phone]- 4909 Aug, [facility] [id number] [place] [address] [id number] Aug, [facility] [id number] [place] [address] 29529- 4283 23 Aug, 2017 [facility] [address] [address]- 9222 Aug, Type 2 diabetes mellitus without complication, unspecified long winder tender insulin use status E11.9 [facility] [address] [address]- 8476 19 Aug, 2017 Other chronic pain G89.29 [facility] [id number] [place] [address] 08573 2546 18 Aug, 2017 [facility] [id number] [place] [address] 12442- 9624 16 Aug, 2017 [facility] [id number] [place] [address] 75530- 2185 22 Jul, 2017 Other chronic pain G89.29 [facility] [address] [address] 2546 19 Jul, 2017 [facility] [id number] [place] [address] 55536 2542 19 Jul, 2017 Dark brown urine R82.99 [facility] [id number] [place] [address] 06645 2546 19 Jul, 2017 Dark brown urine R82.99 [facility] [address] [address] 254 14 Jul, 2017 [facility] [address] [address] 2549 Jun, Other chronic pain G89.29 [facility] [address] [address]- 4012 10 Jun, 2017 Type 2 diabetes mellitus without complication, unspecified shelter insulin use status E11.9 [facility] [address] [address]- 5750 31 May, 2017 Candidiasis, intertrigo B37.2 [facility] [address] [address]- 6762 May, Other chronic pain G89.29 [facility] [address] [address]- 0735 May, [facility] [id number] [place] [address] 99342- 1485 May, [facility] [id number] [place] [address] 60182- 6012 May, Candidiasis, intertrigo B37.2 [facility] [id number] [place] [address] 82022- 6165 May, Atrial fibrillation, unspecified type I48.91 [facility] [facility] [id number] [place] [address] 35939- 1734 May, Hypothyroidism, unspecified type E03.9 and Decreased renal function N28.9 [id number] [place] [address] 63136- 1821 May, Type 2 diabetes mellitus without complication, unspecified shelter insulin use status E11.9 [facility] [id number] [place] [address] 52096- 2444 May, Dental examination Z01.20 [facility] [id number] [place] [address] 26810- 6019 May, Chronic kidney disease (CKD), unspecified stage N18.9 ; Type 2 diabetes mellitus without complication, unspecified shelter insulin use status E11.9 ; Hypothyroidism, unspecified type E03.9 ; Depression, unspecified depression type F32.9 ; Anemia, unspecified type D64.9 and Ulcer L98.499 [place] [id number] [place] [address] 93586- 7640 May, [facility] [id number] [place] [address] 78535- 5475 Apr, Other chronic pain G89.29 [facility] [id number] [place] [address] 94997- 8726 Apr, Other chronic pain G89.29 [facility] [address] [address]- 4384 March, [facility] [address] [address]- 1917 March, [facility] [address] [address]- 4257 March, [facility] [id number] [place] [address] 14268- 5972 March, Other chronic pain G89.29 [facility] [address] [place] [address] 22959- 8003 March, [facility] [id number] [place] [address] 74246- 0280 Feb, [facility] [id number] [place] [address] 63542- 2676 Feb, Type 2 diabetes mellitus without complication, unspecified shelter insulin use status E11.9 ; Candidiasis, intertrigo B37.2 ; Decubitus ulcer of left buttock, unstageable L89.320 and Pressure ulcer of contiguous region involving right buttock and hip, unspecified ulcer stage L89.40 [facility] [address] [address]- 8720 Feb, Atrial fibrillation, unspecified type I48.91 [facility] [address] [address]- 0577 Feb, [facility] [address] [address]- 0995 Feb, [facility] [id number] [place] [address] 56328- 2553 Feb, Other chronic pain G89.29 [facility] [address] [address]- 6876 Jan, Other chronic pain G89.29 [facility] [address] [address]- 6697 28 Dec, 2016 [facility] [address] [address]- 6346 Dec, Lethargy R53.83 [facility] [address] [address] 2546 17 Dec, 2016 [facility] [address] [place] [address] 11668- 7157 10 Dec, 2016 Other chronic pain G89.29 [facility] [address] [address]- 3462 Nov, [facility] [id number] [place] [address] 99159- 6576 Nov, [facility] [address] [address]- 1906 Nov, Other chronic pain G89.29 [facility] [address] [address]- 3001 Nov, [facility] [address] [address]- 0015 Nov, [facility] [address] [address]- 9933 Nov, [facility] [address] [address]- 4529 Oct, Cough R05 [facility] [address] [address]- 9255 Oct, Urinary tract infection, site not specified N39.0 [facility] [address] [address]- 1987 16 Oct, 2016 Other chronic pain G89.29 [facility] [address] [address]- 8423 15 Oct, 2016 Type 2 diabetes mellitus without complication, unspecified long winder tender insulin use status E11.9 ; Other chronic [...] J30.89 ; Nausea R11.0 and Candidiasis B37.9 [place] [address] 98047- 3015 Oct, [place] [address] 79502- 6362 Oct, [place] [address] 96248- 8104 Oct, [place] [address] 21038- 3899 Oct, Chronic kidney disease (CKD), unspecified stage N18.9 [place] [address] 02856- 4450 Oct, [place] [address] 48189- 5600 Sep, Other chronic pain G89.29 [facility] [place] [id number] [place] [address] 87473- 1688 Sep, Chronic kidney disease (CKD), unspecified stage N18.9 and Senile cataract of right eye, unspecified age-related cataract type H25.9 [place] [address] 45934- 2657 Sep, [place] [address] 12257- 5444 Sep, [place] [address] 95742- 4611 Sep, [place] [id number] [address]- 0948 Sep, [facility] [address] [address]- 2995 Sep, [facility] [address] [address]- 3880 Aug, [facility] [address] [address]- 6317 Aug, [facility] [address] [address]- 2877 Aug, [place] [address] [address]- 7806 Aug, Encounter to establish care Z76.89 ; [...] and Gastroesophageal reflux disease without esophagitis K21.9 [place] [address] [address]- 2769 14 Aug, 2016 [facility] [id number] [address]- 3657 Aug, Urinary incontinence, unspecified type R32 [facility] [id number] [address]- 3873 Aug, [facility] [address] [address]- 8831 Jul, [facility] [address] [place] [id number] Jul, Type 2 diabetes mellitus without complication, unspecified long winder tender insulin use status E11.9 ; Chronic kidney [...] E03.9 and Constipation, unspecified constipation type K59.00 [place] [address] 74902- 1605 Jul, [place] [address] 96483- 3676 Jul, [facility] [id number] Jul, Anemia, unspecified type D64.9 ; Acute renal failure, unspecified acute renal failure type N17.9 ; Other chronic pain G89.29 ; Obstructive sleep apnea syndrome G47.33 and Type 2 diabetes mellitus without complication, unspecified long winder tender insulin use status E11.9 [place] [id number] [place] [address] 70401- 5938 Jul, [place] [id number] [place] [address] 10408- 1271 Jul, [place] [id number] [place] [address] 50125- 2230 Jul, [place] [address] 17499- 7076 Jul, [place] [id number] [place] [address] 96990- 2552 Jul, [facility] [address] [place] [id number] Jun, Other chronic pain G89.29 ; Hayes catheter in place Z92.89 ; Chronic kidney disease (CKD), unspecified stage N18.9 and Blisters of multiple sites R23.8 [place] [address] [id number] [place] [address]- 0631 Jun, [facility] [address] [id number] [place] [address]- 7370 Jun, [facility] [address] [id number] [place] [address]- 3035 Jun, [facility] [address] [id number] [place] [address]- 6424 Jun, [facility] [address] [id number] [place] [address]- 4877 Jun, [facility] [address] [id number] [place] [address]- 8507 Jun, [facility] [address] [id number] [place] [address]- 1575 Jun, [facility] [address] [facility] [id number] [place] [address]- 8073 Jun, [facility] [address] [id number] [place] [address]- 9340 Jun, [facility] [address] [facility] [id number] [place] [address]- 5376 Jun, [facility] [address] [facility] [id number] [place] [address]- 1217 Jun, [facility] [address] [facility] [id number] [place] [address]- 4636 May, [facility] [address] [facility] [id number] [place] [address]- 8028 May, [facility] [address] [facility] [id number] [place] [address]- 0964 May, Other chronic pain G89.29 [facility] [address] [place] [id number] May, Encounter to establish care Z76.89 ; [...]
[2018-09-17] MEDS ORDERED: KETOROLAC 30 MG/ML VIAL IVP ONE (19:30)
[2018-09-17] MEDS ORDERED: PANTOPRAZOLE 40 MG (PROTONIX) VIAL IV ONE (19:30)
--- OUTSIDE RECORDS SUMMARY | 2018-09-17 19:30 | XMS REPORT ---
Author Author LATONYA KIM [facility] Address [address] [place] [address] Care Team Providers Care Manager Metal Name Role Phone LATONYA KIM Unavailable PROBLEMS Type Condition ICD9-CM Code ATM29-FZ Code Onset Dates Condition Status SNOMED Code Problem Ulcer L98.499 Active 135154068 Problem Chronic fatigue R53.82 Active 10719359 Problem Decreased renal function N28.9 Active 99289379 Problem Nephrolithiasis N20.0 Active 27855116 Problem Chronic kidney disease (CKD), unspecified stage N18.9 Active 790820953 Problem Venous stasis dermatitis of both lower extremities I87.2 Active 35708409 Problem Urinary incontinence, unspecified type R32 Active 562076570 Problem Morbid obesity due to excess calories E66.01 Active 790589568 Problem Anxiety F41.9 Active 18579750 Problem Bladder spasms N32.89 Active 713231121 Problem Stage 4 chronic kidney disease N18.4 Active 543940752 Problem Primary insomnia F51.01 Active 2368357 Problem Hypothyroidism, unspecified type E03.9 Active 18278970 Problem Cataract H26.9 Active 370476918 Problem Type 2 diabetes mellitus without complication, unspecified manager long term care insulin use status E11.9 Active 89801625 Problem Depression, unspecified depression type F32.9 Active 25998347 Problem Other chronic pain G89.29 Active 33899555 Problem Perennial allergic rhinitis, unspecified allergic rhinitis trigger J30.89 Active 919549768 Problem Obstructive sleep apnea syndrome G47.33 Active 45865300 Problem Restless leg syndrome G25.81 Active 14478396 Problem Closed fracture of left patella, unspecified fracture morphology, sequela S82.002S Active 17230749 Problem Gastroesophageal reflux disease without esophagitis K21.9 Active 116134483 Problem Atrial fibrillation, unspecified type I48.91 Active 21607403 ALLERGIES No Information ENCOUNTERS Encounter Location Date Diagnosis [facility] [id number] [place] [address] 17802- 9658 May, Other chronic pain G89.29 ; Arthralgia, unspecified joint M25.50 and Primary insomnia F51.01 [facility] [id number] [place] [address] 36161- 3880 May, Urinary tract infection without hematuria, site unspecified N39.0 [facility] [id number] [place] [address] 72581- 9493 May, Bladder spasms N32.89 [facility] [id number] [place] [address] 78495- 8072 May, Primary insomnia F51.01 [facility] [id number] [place] [address] 87335- 3006 May, [facility] [id number] [place] [address] 62548- 1348 May, Primary insomnia F51.01 and Arthralgia, unspecified joint M25.50 [facility] [id number] [place] [address] 66104- 2549 May, Other chronic pain G89.29 [facility] [address] [place] [id number] May, Nephrolithiasis N20.0 ; Cataract H26.9 and Macrocytic anemia D53.9 [facility] [id number] [place] [address] 46029- 2159 May, [facility] [id number] [place] [address] 70500- 1395 Apr, [facility] [id number] [place] [address] 22419- 6840 Apr, [facility] [id number] [place] [address] 75284- 1661 Apr, Primary insomnia F51.01 [facility] [id number] [place] [address] 70544- 6446 Apr, [facility] [address] [address] 2412 March, Other chronic pain G89.29 [facility] [address] [place] [id number] March, Arthralgia, unspecified joint M25.50 ; Abnormal urine sediment R82.90 ; Venous stasis dermatitis of both lower extremities I87.2 ; Stage 4 chronic kidney disease N18.4 and Cataract of right eye, unspecified cataract type H26.9 [facility] [address] [place] [address] 11352- 1913 March, Primary insomnia F51.01 [facility] [address] [place] [id number] March, Cervicalgia M54.2 ; Acute pain of right shoulder M25.511 and Pain of left femur M89.8X5 [facility] [id number] [place] [address] 87411- 9267 March, [facility] [id number] [place] [address] 77303- 2504 March, Other chronic pain G89.29 [facility] [id number] [place] [address] 53196- 4562 Feb, [facility] [address] [place] [id number] Feb, Leg swelling M79.89 [facility] [address] [place] [address] 93188- 5680 Feb, Primary insomnia F51.01 [facility] [address] [place] [id number] Feb, Fever in other diseases R50.81 and Intermittent left lower quadrant abdominal pain R10.32 [facility] [address] [place] [address] 04515- 9362 Feb, [facility] [address] [place] [address] 91992- 1916 Feb, [facility] [address], [place] [address] 3567 Feb, Depression, unspecified depression type F32.9 ; Hypothyroidism, unspecified type E03.9 ; Type 2 diabetes mellitus without complication, unspecified longterm insulin use status E11.9 and Anxiety F41.9 [facility] [address], [place] [address] 8206 Feb, Other chronic pain G89.29 [facility] [id number] [place] [address] [id number] Jan, Other chronic pain G89.29 [facility] [id number] [place] [address] 51838- 1104 Jan, Bladder spasms N32.89 [facility] [id number] [place] [address] 08980- 7900 Jan, Bladder spasms N32.89 [facility] [id number] [place] [address] 95502- 7875 Dec, Bladder spasms N32.89 [facility] [id number] [place] [address] 54541- 5512 Dec, Depression, unspecified depression type F32.9 [facility] [address], [place] [address] 2104 Dec, [facility] [address] [place] [id number] Dec, Hypothyroidism, unspecified type E03.9 ; Depression, unspecified depression type F32.9 ; Other chronic pain G89.29 ; Urinary retention R33.9 and Atrial fibrillation, unspecified type I48.91 [facility] [id number] [place] [address] [id number] Dec, [facility] [id number] [place] [address] [id number] Dec, Other chronic pain G89.29 [facility] [id number] [place] [address] [id number] Nov, [facility] [id number] [place] [address] [id number] Nov, Other chronic pain G89.29 [facility] [address] [place] [address] 79788- 9366 Nov, Other chronic pain G89.29 [facility] [address] [place] [address] 36535- 8100 Nov, [facility] [id number] [place] [address] 39444- 9667 Nov, [facility] [id number] [place] [address] 779230- 7484 Nov, Other chronic pain G89.29 [facility] [id number] [place] [address] 61165- 4651 Nov, Other chronic pain G89.29 [facility] [id number] [place] [address] 97017- 1722 Oct, [facility] [id number] [place] [address] 43828- 2167 Oct, Other chronic pain G89.29 [facility] [address] [place] [id number] Oct, Weakness R53.1 ; Macrocytic anemia D53.9 ; Discolored skin L81.9 ; Other chronic pain G89.29 ; Dysuria R30.0 and Hayes catheter in place Z92.89 [facility] [address] [place] [address] [id number]- 0335 Oct, Other chronic pain G89.29 [facility] [id number] [place] [address] [id number] Sep, [facility] [id number] [place] [address] [id number]- 2756 Sep, [facility] [address] [place] [address] [id number]- 1990 Sep, [facility] [address] [id number] Sep, [facility] [id number] [place] [address] [id number] Sep, Other chronic pain G89.29 [facility] [id number] [place] [address] 92453- 8696 Sep, [facility] [id number] [place] [address] [id number] Sep, Other chronic pain G89.29 [facility] [address] [place] [id number] Sep, Chronic urinary tract infection N39.0 ; Other chronic pain G89.29 ; Chronic kidney disease (CKD), unspecified stage N18.9 ; Type 2 diabetes mellitus without complication, unspecified manager long term care insulin use status E11.9 ; Hypothyroidism, unspecified type E03.9 ; Depression, unspecified depression type F32.9 ; Cataract H26.9 ; Obstructive sleep apnea syndrome G47.33 ; Atrial fibrillation, unspecified type I48.91 ; History of femur fracture Z87.81 and Hayes catheter in place Z92.89 [facility] [id number] [place] [address] [id number]- 3152 Sep, [facility] [id number] [place] [address] [id number]- 8619 Aug, [facility] [id number] [place] [address] [id number]- 9628 Aug, Other chronic pain G89.29 [facility] [address] [address]892 Aug, [facility] [id number] [place] [address] [id number]- 1454 Aug, [facility] [id number] [place] [address] [id number] Aug, [facility] [id number] [place] [address] 68972- 6788 23 Aug, 2017 [facility] [address], [place] [address]- 5470 Aug, Type 2 diabetes mellitus without complication, unspecified manager long term care insulin use status E11.9 [facility] [address], [place] [address]- 8776 19 Aug, 2017 Other chronic pain G89.29 [facility] [id number] [place] [address] 57432 2546 18 Aug, 2017 [facility] [address] [place] [address] 99056- 5248 16 Aug, 2017 [facility] [id number] [place] [address] 99075- 6113 22 Jul, 2017 Other chronic pain G89.29 [facility] [address], [place] [address] 2546 19 Jul, 2017 [facility] [address] [place] [address] 44229 2545 19 Jul, 2017 Dark brown urine R82.99 [facility] [id number] [place] [address] 82995 2546 19 Jul, 2017 Dark brown urine R82.99 [facility] [address], [place] [address] 2548 14 Jul, 2017 [facility] [address], [place] [address] 2541 Jun, Other chronic pain G89.29 [facility] [address], [place] [address]- 6954 10 Jun, 2017 Type 2 diabetes mellitus without complication, unspecified longterm insulin use status E11.9 [facility] [address], [place] [address]- 0495 31 May, 2017 Candidiasis, intertrigo B37.2 [facility] [address], [place] [address]- 8325 May, Other chronic pain G89.29 [facility] [address], [place] [address]- 8897 May, [facility] [id number] [place] [address] 75603- 3222 May, [facility] [id number] [place] [address] 49570- 2161 May, Candidiasis, intertrigo B37.2 [facility] [id number] [place] [address] 25849- 0569 May, Atrial fibrillation, unspecified type I48.91 [facility] [id number] [place] [address] 78494- 2849 May, Hypothyroidism, unspecified type E03.9 and Decreased renal function N28.9 [address] [id number] [place] [address] 79318- 3339 May, Type 2 diabetes mellitus without complication, unspecified longterm insulin use status E11.9 [facility] [id number] [place] [address] 69080- 5958 May, Dental examination Z01.20 [facility] [id number] [place] [address] 38541- 5057 May, Chronic kidney disease (CKD), unspecified stage N18.9 ; Type 2 diabetes mellitus without complication, unspecified longterm insulin use status E11.9 ; Hypothyroidism, unspecified type E03.9 ; Depression, unspecified depression type F32.9 ; Anemia, unspecified type D64.9 and Ulcer L98.499 [facility] [address] [place] [address] 55358- 9721 May, [facility] [id number] [place] [address] 17723- 0800 Apr, Other chronic pain G89.29 [facility] [id number] [place] [address] 04172- 7113 Apr, Other chronic pain G89.29 [facility] [address], [place] [address]- 1768 March, [facility] [address], [place] [address]- 6238 March, [facility] [address], [place] [address]- 6858 March, [facility] [id number] [place] [address] 43588- 3343 March, Other chronic pain G89.29 [facility] [address] [place] [address] 71053- 6757 March, [facility] [address] [place] [address] 23540- 3381 Feb, [facility] [id number] [place] [address] 40422- 7892 Feb, Type 2 diabetes mellitus without complication, unspecified longterm insulin use status E11.9 ; Candidiasis, intertrigo B37.2 ; Decubitus ulcer of left buttock, unstageable L89.320 and Pressure ulcer of contiguous region involving right buttock and hip, unspecified ulcer stage L89.40 [facility] [address], [place] [address]- 1299 Feb, Atrial fibrillation, unspecified type I48.91 [facility] [address], [place] [address]- 8407 Feb, [facility] [address], [place] [address]- 7940 Feb, [facility] [id number] [place] [address] 61086- 5534 Feb, Other chronic pain G89.29 [facility] [address], [place] [address]- 4061 Jan, Other chronic pain G89.29 [facility] [address] [address]- 2744 28 Dec, 2016 [facility] [address], [place] [address]- 3516 Dec, Lethargy R53.83 [facility] [address], [place] [address] 2546 17 Dec, 2016 [facility] [address] [place] [address] 23136- 1722 10 Dec, 2016 Other chronic pain G89.29 [facility] [address], [place] [address]- 4057 Nov, [facility] [address] [place] [address] 07502- 8052 Nov, [facility] [address], [place] [address]- 1263 Nov, Other chronic pain G89.29 [facility] [address], [place] [address]- 7118 Nov, [facility] [address], [place] [address]- 5384 Nov, [facility] [address], [place] [address]- 2103 Nov, [facility] [address], [place] [address]- 7509 Oct, Cough R05 [facility] [address], [place] [address]- 5098 Oct, Urinary tract infection, site not specified N39.0 [facility] [address], [place] [address]- 9167 16 Oct, 2016 Other chronic pain G89.29 [facility] [address], [place] [address]- 7776 15 Oct, 2016 Type 2 diabetes mellitus without complication, unspecified manager long term care insulin use status E11.9 ; Other chronic [...] J30.89 ; Nausea R11.0 and Candidiasis B37.9 [facility] [address] 17672- 6451 Oct, [facility] [address] 22595- 6197 Oct, [facility] [address] 21532- 5425 Oct, [facility] [address] 91586- 8747 Oct, Chronic kidney disease (CKD), unspecified stage N18.9 [facility] [address] 55999- 0032 Oct, [facility] [address] 93834- 5319 Sep, Other chronic pain G89.29 [facility] [id number] [place] [address] 62818- 1437 Sep, Chronic kidney disease (CKD), unspecified stage N18.9 and Senile cataract of right eye, unspecified age-related cataract type H25.9 [facility] [address] 33822- 4180 Sep, [facility] [address] 49811- 4973 Sep, [facility] [address] 11401- 8867 Sep, [facility] [id number], [place] [address]- 1652 Sep, [facility] [address], [place] [address]- 5401 Sep, [facility] [address], [place] [address]- 1701 Aug, [facility] [address], [place] [address]- 8658 Aug, [facility] [address], [place] [address]- 5303 Aug, [facility] [address], [place] [address]- 9515 Aug, Encounter to establish care Z76.89 ; [...] and Gastroesophageal reflux disease without esophagitis K21.9 [facility] [address], [place] [address]- 2191 14 Aug, 2016 [facility] [id number], [place] [address]- 1669 Aug, Urinary incontinence, unspecified type R32 [facility] [id number] [address]- 1349 Aug, [facility] [address], [place] [address]- 4488 Jul, [facility] [address] [place] [id number] Jul, Type 2 diabetes mellitus without complication, unspecified manager long term care insulin use status E11.9 ; Chronic kidney [...] E03.9 and Constipation, unspecified constipation type K59.00 [facility] [address] 99047- 0028 Jul, [facility] [address] 13746- 5611 Jul, [facility] [id number] Jul, Anemia, unspecified type D64.9 ; Acute renal failure, unspecified acute renal failure type N17.9 ; Other chronic pain G89.29 ; Obstructive sleep apnea syndrome G47.33 and Type 2 diabetes mellitus without complication, unspecified manager long term care insulin use status E11.9 [facility] [id number] [place] [address] 66942- 2489 Jul, [facility] [id number] [place] [address] 07944- 9763 Jul, [facility] [id number] [place] [address] 48993- 4913 Jul, [facility] [address] 08558- 4275 Jul, [facility] [id number] [place] [address] 50912- 0429 Jul, [facility] [address] [place] [id number] Jun, Other chronic pain G89.29 ; Hayes catheter in place Z92.89 ; Chronic kidney disease (CKD), unspecified stage N18.9 and Blisters of multiple sites R23.8 [facility] [address] [id number] [place] [address]- 1786 Jun, [facility] [address] [id number] [place] [address]- 6335 Jun, [facility] [address] [id number] [place] [address]- 4354 Jun, [facility] [address] [id number] [place] [address]- 8331 Jun, [facility] [address] [id number] [place] [address]- 5635 Jun, [facility] [address] [id number] [place] [address]- 9967 Jun, [facility] [address] [id number] [place] [address]- 7097 Jun, [facility] [address] [facility] [id number] [place] [address]- 2824 Jun, [facility] [address] [id number] [place] [address]- 6374 Jun, [facility] [address] [facility] [id number] [place] [address]- 9122 Jun, [facility] [address] [facility] [id number] [place] [address]- 1067 Jun, [facility] [address] [facility] [id number] [place] [address]- 7844 May, [facility] [address] [facility] [id number] [place] [address]- 6193 May, [facility] [address] [facility] [id number] [address]- 1593 May, Other chronic pain G89.29 [facility] [address] [place] [id number] May, Encounter to establish care Z76.89 ; [...] SOCIAL HISTORY Never Assessed REASON FOR VISIT increase burning in feet PLAN OF CARE VITAL SIGNS MEDICATIONS Medication Instructions Dosage Frequency Start Date End Date Duration Status Gabapentin 400 mg Orally Twice a day in AM and afternoon and 2 at hs 1 capsule Feb, Active RESULTS No Results PROCEDURES No Known [...] Acute Kidney Injury 08/05/16 Hospitalization History UTI, Sepsis--[facility] Hospitalization History Chest pain/SOB/A-fib 02/2017 Hospitalization History Chest pain-[facility] 04/13/17 Hospitalization History UTI, respiratory failure, altered mental status-[facility] 09/13/17
--- OUTSIDE RECORDS SUMMARY | 2018-09-17 19:30 | XMS REPORT ---
Author Author LATONYA KIM [facility] [address] Address [address] [place] [address] Care Team Providers Care Chief Passenger Ship Steward/Stewardess Name Role Phone LATONYA KIM Unavailable PROBLEMS Type Condition ICD9-CM Code DGZ67-BU Code Onset Dates Condition Status SNOMED Code Problem Ulcer L98.499 Active 445752389 Problem Chronic fatigue R53.82 Active 22226140 Problem Decreased renal function N28.9 Active 71678734 Problem Nephrolithiasis N20.0 Active 21457247 Problem Chronic kidney disease (CKD), unspecified stage N18.9 Active 194024799 Problem Venous stasis dermatitis of both lower extremities I87.2 Active 20470371 Problem Urinary incontinence, unspecified type R32 Active 860225746 Problem Morbid obesity due to excess calories E66.01 Active 139847062 Problem Anxiety F41.9 Active 33057995 Problem Bladder spasms N32.89 Active 141775846 Problem Stage 4 chronic kidney disease N18.4 Active 496531021 Problem Primary insomnia F51.01 Active 1568894 Problem Hypothyroidism, unspecified type E03.9 Active 39806629 Problem Cataract H26.9 Active 153278215 Problem Type 2 diabetes mellitus without complication, unspecified internet marketing strategist insulin use status E11.9 Active 42034469 Problem Depression, unspecified depression type F32.9 Active 72398257 Problem Other chronic pain G89.29 Active 05205160 Problem Perennial allergic rhinitis, unspecified allergic rhinitis trigger J30.89 Active 523941151 Problem Obstructive sleep apnea syndrome G47.33 Active 76018000 Problem Restless leg syndrome G25.81 Active 34450256 Problem Closed fracture of left patella, unspecified fracture morphology, sequela S82.002S Active 67333660 Problem Gastroesophageal reflux disease without esophagitis K21.9 Active 620542713 Problem Atrial fibrillation, unspecified type I48.91 Active 05756938 ALLERGIES No Information ENCOUNTERS Encounter Location Date Diagnosis [facility] [id number] [place] [address] 64714- 3537 May, Other chronic pain G89.29 ; Arthralgia, unspecified joint M25.50 and Primary insomnia F51.01 [facility] [id number] [place] [address] 86035- 2987 May, Urinary tract infection without hematuria, site unspecified N39.0 [facility] [id number] [place] [address] 79043- 6114 May, Bladder spasms N32.89 [facility] [id number] [place] [address] 93016- 1587 May, Primary insomnia F51.01 [facility] [id number] [place] [address] 23350- 4184 May, [facility] [id number] [place] [address] 06853- 2167 May, Primary insomnia F51.01 and Arthralgia, unspecified joint M25.50 [facility] [id number] [place] [address] 00998- 0831 May, Other chronic pain G89.29 [facility] [address] [place] [id number] May, Nephrolithiasis N20.0 ; Cataract H26.9 and Macrocytic anemia D53.9 [facility] [id number] [place] [address] 58834- 7007 May, [facility] [id number] [place] [address] 72133- 1963 Apr, [facility] [id number] [place] [address] 40219- 1779 Apr, [facility] [id number] [place] [address] 00408- 8581 Apr, Primary insomnia F51.01 [facility] [id number] [place] [address] 06790- 4366 Apr, [facility] [address] [address] 9200 March, Other chronic pain G89.29 [facility] [address] [place] [id number] March, Arthralgia, unspecified joint M25.50 ; Abnormal urine sediment R82.90 ; Venous stasis dermatitis of both lower extremities I87.2 ; Stage 4 chronic kidney disease N18.4 and Cataract of right eye, unspecified cataract type H26.9 [facility] [facility] [address] [place] [address] 77657- 9748 March, Primary insomnia F51.01 [facility] [address] [place] [id number] March, Cervicalgia M54.2 ; Acute pain of right shoulder M25.511 and Pain of left femur M89.8X5 [facility] [id number] [place] [address] 66438- 5884 March, [facility] [id number] [place] [address] 26628- 8815 March, Other chronic pain G89.29 [facility] [id number] [place] [address] 17563- 4990 Feb, [facility] [address] [place] [id number] Feb, Leg swelling M79.89 [place] [address] [place] [address] 74009- 0335 Feb, Primary insomnia F51.01 [facility] [address] [place] [id number] Feb, Fever in other diseases R50.81 and Intermittent left lower quadrant abdominal pain R10.32 [facility] [address] [place] [address] 02880- 3784 Feb, [facility] [address] [place] [address] 74457- 2855 Feb, [facility] [address], [place] [address] 5764 Feb, Depression, unspecified depression type F32.9 ; Hypothyroidism, unspecified type E03.9 ; Type 2 diabetes mellitus without complication, unspecified halfway insulin use status E11.9 and Anxiety F41.9 [facility] [facility] [address] [address] 2226 Feb, Other chronic pain G89.29 [facility] [id number] [place] [address] [id number] Jan, Other chronic pain G89.29 [facility] [id number] [place] [address] 17568- 1006 Jan, Bladder spasms N32.89 [facility] [id number] [place] [address] 68284- 8426 Jan, Bladder spasms N32.89 [facility] [id number] [place] [address] 79659- 9347 Dec, Bladder spasms N32.89 [facility] [id number] [place] [address] 79533- 1999 Dec, Depression, unspecified depression type F32.9 [facility] [address], [place] [address] 9495 Dec, [facility] [address] [place] [id number] Dec, Hypothyroidism, unspecified type E03.9 ; Depression, unspecified depression type F32.9 ; Other chronic pain G89.29 ; Urinary retention R33.9 and Atrial fibrillation, unspecified type I48.91 [facility] [id number] [place] [address] [id number] Dec, [facility] [id number] [place] [address] [id number] Dec, Other chronic pain G89.29 [facility] [id number] [place] [address] [id number] Nov, [facility] [id number] [place] [address] [id number] Nov, Other chronic pain G89.29 [facility] [address] [place] [address] 39704- 7496 Nov, Other chronic pain G89.29 [facility] [address] [place] [address] 87366- 8914 Nov, [facility] [id number] [place] [address] 32980- 4328 Nov, [facility] [id number] [place] [address] 086773- 9497 Nov, Other chronic pain G89.29 [facility] [id number] [place] [address] 38136- 8108 Nov, Other chronic pain G89.29 [facility] [id number] [place] [address] 80474- 2994 Oct, [facility] [id number] [place] [address] 55806- 0732 Oct, Other chronic pain G89.29 [facility] [address] [place] [id number] Oct, Weakness R53.1 ; Macrocytic anemia D53.9 ; Discolored skin L81.9 ; Other chronic pain G89.29 ; Dysuria R30.0 and Hayes catheter in place Z92.89 [facility] [address] [place] [address] [id number]- 1125 Oct, Other chronic pain G89.29 [facility] [id number] [place] [address] [id number] Sep, [facility] [id number] [place] [address] [id number]- 1999 Sep, [facility] [address] [place] [address] [id number]- 8274 Sep, [facility] [id number] [id number] Sep, [facility] [id number] [place] [address] [id number] Sep, Other chronic pain G89.29 [facility] [id number] [place] [address] 41559- 1326 Sep, [facility] [id number] [place] [address] [id number] Sep, Other chronic pain G89.29 [facility] [address] [place] [id number] Sep, Chronic urinary tract infection N39.0 ; Other chronic pain G89.29 ; Chronic kidney disease (CKD), unspecified stage N18.9 ; Type 2 diabetes mellitus without complication, unspecified internet marketing strategist insulin use status E11.9 ; Hypothyroidism, unspecified type E03.9 ; Depression, unspecified depression type F32.9 ; Cataract H26.9 ; Obstructive sleep apnea syndrome G47.33 ; Atrial fibrillation, unspecified type I48.91 ; History of femur fracture Z87.81 and Hayes catheter in place Z92.89 [facility] [id number] [place] [address] [id number]- 9639 Sep, [facility] [id number] [place] [address] [id number]- 6441 Aug, [facility] [id number] [place] [address] [id number]- 6107 Aug, Other chronic pain G89.29 [facility] [address] [address] 1736 Aug, [facility] [id number] [place] [address] [id number]- 8566 Aug, [facility] [id number] [place] [address] [id number] Aug, [facility] [id number] [place] [address] 20070- 4904 23 Aug, 2017 [facility] [address], [place] [address]- 4831 Aug, Type 2 diabetes mellitus without complication, unspecified internet marketing strategist insulin use status E11.9 [facility] [address], [place] [address]- 2106 19 Aug, 2017 Other chronic pain G89.29 [facility] [id number] [place] [address] 65533 2546 18 Aug, 2017 [facility] [address] [place] [address] 02962- 0781 16 Aug, 2017 [facility] [id number] [place] [address] 71663- 6483 22 Jul, 2017 Other chronic pain G89.29 [facility] [address] [address] 2546 19 Jul, 2017 [facility] [address] [place] [address] 60791 2549 19 Jul, 2017 Dark brown urine R82.99 [facility] [id number] [place] [address] 71032 2546 19 Jul, 2017 Dark brown urine R82.99 [facility] [address] [address] 2548 14 Jul, 2017 [facility] [address], [place] [address] 2541 Jun, Other chronic pain G89.29 [facility] [address] [address]- 6160 10 Jun, 2017 Type 2 diabetes mellitus without complication, unspecified halfway insulin use status E11.9 [facility] [address], [place] [address]- 1770 31 May, 2017 Candidiasis, intertrigo B37.2 [facility] [address] [address]- 7029 May, Other chronic pain G89.29 [facility] [address] [address]- 1608 May, [facility] [id number] [place] [address] 09517- 7610 May, [facility] [id number] [place] [address] 97937- 1237 May, Candidiasis, intertrigo B37.2 [facility] [address] [place] [address] 79468- 7902 May, Atrial fibrillation, unspecified type I48.91 [facility] [address] [place] [address] 43225- 0950 May, Hypothyroidism, unspecified type E03.9 and Decreased renal function N28.9 [place] [id number] [place] [address] 88848- 6842 May, Type 2 diabetes mellitus without complication, unspecified halfway insulin use status E11.9 [facility] [id number] [place] [address] 64847- 9570 May, Dental examination Z01.20 [facility] [address] [place] [address] 08894- 8593 May, Chronic kidney disease (CKD), unspecified stage N18.9 ; Type 2 diabetes mellitus without complication, unspecified halfway insulin use status E11.9 ; Hypothyroidism, unspecified type E03.9 ; Depression, unspecified depression type F32.9 ; Anemia, unspecified type D64.9 and Ulcer L98.499 [facility] [address] [place] [address] 04152- 8863 May, [facility] [id number] [place] [address] 12312- 3793 Apr, Other chronic pain G89.29 [facility] [address] [place] [address] 46124- 3539 Apr, Other chronic pain G89.29 [facility] [address], [place] [address]- 8725 March, [facility] [address], [place] [address]- 9418 March, [facility] [address] [address]- 5316 March, [facility] [id number] [place] [address] 13961- 6226 March, Other chronic pain G89.29 [facility] [address] [place] [address] 10924- 5960 March, [facility] [address] [place] [address] 93565- 1474 Feb, [facility] [id number] [place] [address] 86574- 1281 Feb, Type 2 diabetes mellitus without complication, unspecified halfway insulin use status E11.9 ; Candidiasis, intertrigo B37.2 ; Decubitus ulcer of left buttock, unstageable L89.320 and Pressure ulcer of contiguous region involving right buttock and hip, unspecified ulcer stage L89.40 [facility] [address], [place] [address]- 6057 Feb, Atrial fibrillation, unspecified type I48.91 [facility] [address], [place] [address]- 5194 Feb, [facility] [address], [place] [address]- 4089 Feb, [facility] [id number] [place] [address] 18960- 0780 Feb, Other chronic pain G89.29 [facility] [address], [place] [address]- 5770 Jan, Other chronic pain G89.29 [facility] [address] [address]- 4542 28 Dec, 2016 [facility] [address], [place] [address]- 4136 Dec, Lethargy R53.83 [facility] [address], [place] [address] 2546 17 Dec, 2016 [facility] [address] [place] [address] 17608- 7207 10 Dec, 2016 Other chronic pain G89.29 [facility] [address] [address]- 4780 Nov, [facility] [address] [place] [address] 96249- 9217 Nov, [facility] [address], [place] [address]- 7267 Nov, Other chronic pain G89.29 [facility] [address], [place] [address]- 8848 Nov, [facility] [address], [place] [address]- 3580 Nov, [facility] [address], [place] [address]- 3392 Nov, [facility] [address], [place] [address]- 2501 Oct, Cough R05 [facility] [address], [place] [address]- 8259 Oct, Urinary tract infection, site not specified N39.0 [facility] [address], [place] [address]- 3293 16 Oct, 2016 Other chronic pain G89.29 [facility] [address], [place] [address]- 0314 15 Oct, 2016 Type 2 diabetes mellitus without complication, unspecified internet marketing strategist insulin use status E11.9 ; Other chronic [...] J30.89 ; Nausea R11.0 and Candidiasis B37.9 [facility] [facility] [address] 01326- 3830 Oct, [facility] [facility] [address] 99501- 9243 Oct, [facility] [address] 57941- 0831 Oct, [facility] [address] 91474- 6192 Oct, Chronic kidney disease (CKD), unspecified stage N18.9 [facility] [address] 85512- 3385 Oct, [facility] [address] 39504- 6574 Sep, Other chronic pain G89.29 [facility] [id number] [place] [address] 58669- 1734 Sep, Chronic kidney disease (CKD), unspecified stage N18.9 and Senile cataract of right eye, unspecified age-related cataract type H25.9 [facility] [facility] [address] 50485- 7873 Sep, [facility] [facility] [address] 42008- 3415 Sep, [facility] [facility] [address] 91400- 6682 Sep, [facility] [id number] [address]- 0330 Sep, [facility] [address], [place] [address]- 2138 Sep, [facility] [address], [place] [address]- 0143 Aug, [facility] [address] [address]- 0065 Aug, [facility] [address], [place] [address]- 3019 Aug, [facility] [address], [place] [address]- 9332 Aug, Encounter to establish care Z76.89 ; Other chronic pain G89.29 ; Chronic kidney disease (CKD), unspecified stage N18.9 ; Obstructive sleep apnea syndrome G47.33 ; Type 2 diabetes mellitus without complication, unspecified halfway insulin use status E11.9 ; Urinary incontinence, unspecified type R32 ; Depression, unspecified depression type F32.9 ; History of femur fracture Z87.81 ; History of fractured kneecap Z87.81 ; Hypothyroidism , unspecified type E03.9 ; Cataract H26.9 and Gastroesophageal reflux disease without esophagitis K21.9 [facility] [address] [address]- 3762 14 Aug, 2016 [facility] [id number] [address]- 3123 Aug, Urinary incontinence, unspecified type R32 [facility] [id number] [address]- 8079 Aug, [facility] [address], [place] [address]- 1368 Jul, [facility] [address] [place] [id number] Jul, Type 2 diabetes mellitus without complication, unspecified internet marketing strategist insulin use status E11.9 ; Chronic kidney [...] E03.9 and Constipation, unspecified constipation type K59.00 [place] [address] 01178- 5076 Jul, [place] [address] 01761- 8847 Jul, [facility] [id number] Jul, Anemia, unspecified type D64.9 ; Acute renal failure, unspecified acute renal failure type N17.9 ; Other chronic pain G89.29 ; Obstructive sleep apnea syndrome G47.33 and Type 2 diabetes mellitus without complication, unspecified internet marketing strategist insulin use status E11.9 [place] [id number] [place] [address] 81759- 1303 Jul, [place] [facility] [id number] [place] [address] 16543- 4976 Jul, [facility] [id number] [place] [address] 66477- 9791 Jul, [facility] [facility] [address] 03449- 5267 Jul, [place] [id number] [place] [address] 95449- 0204 Jul, [facility] [address] [place] [id number] Jun, Other chronic pain G89.29 ; Hayes catheter in place Z92.89 ; Chronic kidney disease (CKD), unspecified stage N18.9 and Blisters of multiple sites R23.8 [place] [address] [id number] [place] [address]- 2579 Jun, [facility] [address] [id number] [place] [address]- 0059 Jun, [facility] [address] [id number] [place] [address]- 8524 Jun, [facility] [address] [id number] [place] [address]- 2812 Jun, [facility] [address] [id number] [place] [address]- 4989 Jun, [facility] [address] [id number] [place] [address]- 0330 Jun, [facility] [address] [id number] [place] [address]- 5028 Jun, [facility] [address] [facility] [id number] [place] [address]- 7288 Jun, [facility] [address] [id number] [place] [address]- 4712 Jun, [facility] [address] [facility] [id number] [place] [address]- 5408 Jun, [facility] [address] [facility] [id number] [place] [address]- 8947 Jun, [facility] [address] [facility] [id number] [place] [address]- 8737 May, [facility] [address] [facility] [id number] [place] [address]- 7686 May, [facility] [address] [facility] [id number] [address]- 0974 May, Other chronic pain G89.29 [facility] [address] [place] [id number] May, Encounter to establish care Z76.89 ; Type 2 diabetes mellitus without complication, unspecified halfway insulin use status E11.9 ; Hypothyroidism, unspecified [...] SOCIAL HISTORY Never Assessed REASON FOR VISIT insomnia, Melatonin not working PLAN OF CARE VITAL SIGNS MEDICATIONS Medication [...] Acute Kidney Injury 08/05/16 Hospitalization History UTI, Sepsis--[facility] Hospitalization History Chest pain/SOB/A-fib 02/2017 Hospitalization History Chest pain-[facility] 04/13/17 Hospitalization History UTI, respiratory failure, altered mental status-[facility] 09/13/17
--- OUTSIDE RECORDS SUMMARY | 2018-09-17 19:31 | XMS REPORT ---
Author Author LATONYA KIM [facility] Address [address] [place] [address] Care Team Providers Care Stem Roller Name Role Phone LATONYA KIM Unavailable PROBLEMS Type Condition ICD9-CM Code IOR39-IK Code Onset Dates Condition Status SNOMED Code Problem Ulcer L98.499 Active 029190991 Problem Chronic fatigue R53.82 Active 60999448 Problem Decreased renal function N28.9 Active 25363183 Problem Nephrolithiasis N20.0 Active 78534380 Problem Chronic kidney disease (CKD), unspecified stage N18.9 Active 969720072 Problem Venous stasis dermatitis of both lower extremities I87.2 Active 50169716 Problem Urinary incontinence, unspecified type R32 Active 147952373 Problem Morbid obesity due to excess calories E66.01 Active 621365965 Problem Anxiety F41.9 Active 30846940 Problem Bladder spasms N32.89 Active 390475049 Problem Stage 4 chronic kidney disease N18.4 Active 389471540 Problem Primary insomnia F51.01 Active 7005127 Problem Hypothyroidism, unspecified type E03.9 Active 94675820 Problem Cataract H26.9 Active 734084445 Problem Type 2 diabetes mellitus without complication, unspecified terminal worker insulin use status E11.9 Active 75410764 Problem Depression, unspecified depression type F32.9 Active 22340847 Problem Other chronic pain G89.29 Active 26279465 Problem Perennial allergic rhinitis, unspecified allergic rhinitis trigger J30.89 Active 075142809 Problem Obstructive sleep apnea syndrome G47.33 Active 66601589 Problem Restless leg syndrome G25.81 Active 44774680 Problem Closed fracture of left patella, unspecified fracture morphology, sequela S82.002S Active 11800136 Problem Gastroesophageal reflux disease without esophagitis K21.9 Active 061132315 Problem Atrial fibrillation, unspecified type I48.91 Active 68697447 ALLERGIES No Information ENCOUNTERS Encounter Location Date Diagnosis [facility] [id number] [place] [address] 77992- 9105 May, Urinary tract infection without hematuria, site unspecified N39.0 [facility] [id number] [place] [address] 04275- 1943 May, Bladder spasms N32.89 [facility] [id number] [place] [address] 32579- 3684 May, Primary insomnia F51.01 [facility] [id number] [place] [address] 99033- 0740 May, [facility] [id number] [place] [address] 12082- 5705 May, Primary insomnia F51.01 and Arthralgia, unspecified joint M25.50 [facility] [id number] [place] [address] 52204- 9356 May, Other chronic pain G89.29 [facility] [address] [place] [id number] May, Nephrolithiasis N20.0 ; Cataract H26.9 and Macrocytic anemia D53.9 [facility] [id number] [place] [address] 87926- 1134 May, [facility] [id number] [place] [address] 05661- 4869 Apr, [facility] [id number] [place] [address] 24871- 5572 Apr, [facility] [id number] [place] [address] 36069- 8486 Apr, Primary insomnia F51.01 [facility] [id number] [place] [address] 55041- 6554 Apr, [facility] [id number] [place] [address] 58966- 2232 March, Other chronic pain G89.29 [facility] [address] [place] [id number] March, Arthralgia, unspecified joint M25.50 ; Abnormal urine sediment R82.90 ; Venous stasis dermatitis of both lower extremities I87.2 ; Stage 4 chronic kidney disease N18.4 and Cataract of right eye, unspecified cataract type H26.9 [facility] [id number] [place] [address] 82574- 1906 March, Primary insomnia F51.01 [facility] [address] [place] [id number] March, Cervicalgia M54.2 ; Acute pain of right shoulder M25.511 and Pain of left femur M89.8X5 [facility] [id number] [place] [address] 21757- 5071 March, [facility] [id number] [place] [address] 42542- 9021 March, Other chronic pain G89.29 [facility] [id number] [place] [address] 57348- 8845 Feb, [facility] [address] [place] [id number] Feb, Leg swelling M79.89 [facility] [id number] [place] [address] 74865- 3516 Feb, Primary insomnia F51.01 [facility] [address] [place] [id number] Feb, Fever in other diseases R50.81 and Intermittent left lower quadrant abdominal pain R10.32 [facility] [id number] [place] [address] 15794- 1203 Feb, [facility] [id number] [place] [address] 58033- 3018 Feb, [facility] [id number] [place] [address] 31148- 5795 Feb, Depression, unspecified depression type F32.9 ; Hypothyroidism, unspecified type E03.9 ; Type 2 diabetes mellitus without complication, unspecified terminal worker insulin use status E11.9 and Anxiety F41.9 [facility] [address], [place] [address] 3650 Feb, Other chronic pain G89.29 [facility] [id number] [id number] Jan, Other chronic pain G89.29 [facility] [address], [place] [address] 4044 Jan, Bladder spasms N32.89 [facility] [address] [place] [address] 91909- 6800 Jan, Bladder spasms N32.89 [facility] [id number] [place] [address] 25710- 2562 Dec, Bladder spasms N32.89 [facility] [address], [place] [address] 8333 Dec, Depression, unspecified depression type F32.9 [facility] [address], [place] [address]- 0861 Dec, [facility] [address] [place] [id number] Dec, Hypothyroidism, unspecified type E03.9 ; Depression, unspecified depression type F32.9 ; Other chronic pain G89.29 ; Urinary retention R33.9 and Atrial fibrillation, unspecified type I48.91 [facility] [id number] [id number] Dec, [facility] [id number] [id number] Dec, Other chronic pain G89.29 [facility] [address] [id number] Nov, [facility] [address] [id number] Nov, Other chronic pain G89.29 [facility] [address], [place] [address]- 5669 Nov, Other chronic pain G89.29 [facility] [address], [place] [address]- 5162 Nov, [facility] [address], [place] [address]- 0192 Nov, [facility] [address] [place] [address] 35275- 3569 Nov, Other chronic pain G89.29 [facility] [address] [place] [address] 20913- 0414 Nov, Other chronic pain G89.29 [facility] [address] [place] [address] 02746- 2427 14 Oct, 2017 [facility] [address] [place] [address] 52668- 4395 14 Oct, 2017 Other chronic pain G89.29 [facility] [address] [place] [id number] 14 Oct, 2017 Weakness R53.1 ; Macrocytic anemia D53.9 ; Discolored skin L81.9 ; Other chronic pain G89.29 ; Dysuria R30.0 and Hayes catheter in place Z92.89 [facility] [address], [place] [address]- 2257 07 Oct, 2017 Other chronic pain G89.29 [facility] [id number] [id number] Sep, [facility] [address], [place] [address]- 6312 Sep, [facility] [address] [place] [address] 64574- 2838 Sep, [facility] [id number] [place] [address] [id number] Sep, [facility] [id number] [place] [address] [id number] Sep, Other chronic pain G89.29 [facility] [address] [address]165 Sep, [facility] [address] [address] Sep, Other chronic pain G89.29 [facility] [address] [place] [address] Sep, Chronic urinary tract infection N39.0 ; Other chronic pain G89.29 ; Chronic kidney disease (CKD), unspecified stage N18.9 ; Type 2 diabetes mellitus without complication, unspecified terminal worker insulin use status E11.9 ; Hypothyroidism, unspecified type E03.9 ; Depression, unspecified depression type F32.9 ; Cataract H26.9 ; Obstructive sleep apnea syndrome G47.33 ; Atrial fibrillation, unspecified type I48.91 ; History of femur fracture Z87.81 and [address] catheter in place Z92.89 [facility] [address], [place] [address]- 2773 Sep, [facility] [address], [place] [address]- 3354 Aug, [facility] [address] [place] [address] 95548- 5137 Aug, Other chronic pain G89.29 [facility] [address], [place] [address]- 1877 Aug, [facility] [address], [place] [address]- 3563 Aug, [facility] [id number] [id number] Aug, [facility] [address], [place] [address]- 8000 Aug, [facility] [address], [place] [address]- 0122 Aug, Type 2 diabetes mellitus without complication, unspecified terminal worker insulin use status E11.9 [facility] [address], [place] [address]- 1141 19 Aug, 2017 Other chronic pain G89.29 [facility] [address] [place] [address] 22675- 8350 18 Aug, 2017 [facility] [id number] [place] [address] 43133- 0144 16 Aug, 2017 [facility] [id number] [place] [address] 05544- 1069 22 Jul, 2017 Other chronic pain G89.29 [facility] [id number] [place] [address] 22170- 6046 19 Jul, 2017 [facility] [id number] [place] [address] 07570- 5315 19 Jul, 2017 Dark brown urine R82.99 [facility] [id number] [place] [address] 53590- 4753 Jul, Dark brown urine R82.99 [facility] [address] [place] [address] 44779- 7742 14 Jul, 2017 [facility] [id number] [place] [address] 29142- 1550 Jun, Other chronic pain G89.29 [facility] [address], [place] [address]- 1891 Jun, Type 2 diabetes mellitus without complication, unspecified terminal worker insulin use status E11.9 [facility] [address], [place] [address]- 8928 May, Candidiasis, intertrigo B37.2 [facility] [id number] [place] [address] 91519- 9499 May, Other chronic pain G89.29 [facility] [address] [place] [address] 26253- 2939 May, [facility] [id number] [place] [address] 57515- 8401 May, [facility] [id number] [place] [address] 66963- 2248 May, Candidiasis, intertrigo B37.2 [facility] [id number] [place] [address] 49390- 7361 May, Atrial fibrillation, unspecified type I48.91 [facility] [id number] [place] [address] 18934- 3863 May, Hypothyroidism, unspecified type E03.9 and Decreased renal function N28.9 [facility] [address] 87084- 3141 May, Type 2 diabetes mellitus without complication, unspecified terminal worker insulin use status E11.9 [facility] [id number] [place] [address] 45867- 8874 May, Dental examination Z01.20 [facility] [id number] [place] [address] 12869- 5493 May, Chronic kidney disease (CKD), unspecified stage N18.9 ; Type 2 diabetes mellitus without complication, unspecified half-way insulin use status E11.9 ; Hypothyroidism, unspecified type E03.9 ; Depression, unspecified depression type F32.9 ; Anemia, unspecified type D64.9 and Ulcer L98.499 [facility] [id number] [place] [address] 17349- 1557 May, [facility] [id number] [place] [address] 13706- 8165 Apr, Other chronic pain G89.29 [facility] [id number] [place] [address] 73552- 5803 Apr, Other chronic pain G89.29 [facility] [id number] [place] [address] 16230- 3000 March, [facility] [id number] [place] [address] 91442- 9026 March, [facility] [address], [place] [address]- 9753 March, [facility] [id number] [place] [address] 84569- 0635 March, Other chronic pain G89.29 [facility] [id number] [place] [address] 30143- 0817 March, [facility] [id number] [place] [address] 38763- 4053 Feb, [facility] [id number] [place] [address] 81773- 2365 Feb, Type 2 diabetes mellitus without complication, unspecified half-way insulin use status E11.9 ; Candidiasis, intertrigo B37.2 ; Decubitus ulcer of left buttock, unstageable L89.320 and Pressure ulcer of contiguous region involving right buttock and hip, unspecified ulcer stage L89.40 [facility] [address] [place] [address] 94003- 0285 Feb, Atrial fibrillation, unspecified type I48.91 [facility] [address] [place] [address] 06646- 2813 Feb, [facility] [address], [place] [address]- 9073 Feb, [facility] [address], [place] [address]- 3403 Feb, Other chronic pain G89.29 [facility] [address], [place] [address]- 6757 Jan, Other chronic pain G89.29 [facility] [address], [place] [address]- 6381 Dec, [facility] [address], [place] [address]- 0974 Dec, Lethargy R53.83 [facility] [address], [place] [address]- 7761 17 Dec, 2016 [facility] [address] [place] [address] 82226- 5572 Dec, Other chronic pain G89.29 [facility] [address], [place] [address]- 1274 Nov, [facility] [address], [place] [address]- 5495 Nov, [facility] [address], [place] [address]- 6923 Nov, Other chronic pain G89.29 [facility] [address], [place] [address]- 1909 Nov, [facility] [address] [place] [address] 70240- 6852 Nov, [facility] [address], [place] [address]- 7584 Nov, [facility] [address], [place] [address]- 3039 Oct, Cough R05 [facility] [address], [place] [address]- 3857 Oct, Urinary tract infection, site not specified N39.0 [facility] [address], [place] [address]- 1884 Oct, Other chronic pain G89.29 [facility] [id number], [place] [address]- 8070 Oct, Type 2 diabetes mellitus without complication, unspecified half-way insulin use status E11.9 ; Other chronic [...] J30.89 ; Nausea R11.0 and Candidiasis B37.9 [facility] [id number] [place] [address] 93675- 7082 Oct, [facility] [address] 18766- 8495 Oct, [facility] [address] 29494- 0998 Oct, [facility] [address] 61060- 0693 Oct, Chronic kidney disease (CKD), unspecified stage N18.9 [facility] [address] 62165- 1259 Oct, [facility] [address] 17620- 7518 Sep, Other chronic pain G89.29 [facility] [address] 25328- 5973 Sep, Chronic kidney disease (CKD), unspecified stage N18.9 and Senile cataract of right eye, unspecified age-related cataract type H25.9 [facility] [id number] [place] [address] 66496- 3102 Sep, [facility] [id number] [place] [address] 35564- 8066 Sep, [facility] [address] 36396- 5484 Sep, [facility] [id number] [place] [address] 23263- 0961 Sep, [facility] [address] 53601- 4269 Sep, [facility] [address] [place] [address] 64515- 0643 Aug, [facility] [id number] [place] [address] 61036- 5326 Aug, [facility] [id number] [place] [address] 34920- 6703 Aug, [facility] [id number] [place] [address] 36389- 3140 Aug, Encounter to establish care Z76.89 ; Other chronic pain G89.29 ; Chronic kidney disease (CKD), unspecified stage N18.9 ; Obstructive sleep apnea syndrome G47.33 ; Type 2 diabetes mellitus without complication, unspecified terminal worker insulin use status E11.9 ; Urinary incontinence, unspecified type R32 ; Depression, unspecified depression type F32.9 ; History of femur fracture Z87.81 ; History of fractured kneecap Z87.81 ; Hypothyroidism , unspecified type E03.9 ; Cataract H26.9 and Gastroesophageal reflux disease without esophagitis K21.9 [facility] [id number] [place] [address] 68849- 6733 Aug, [facility] [id number] [place] [address] 09624- 4794 Aug, Urinary incontinence, unspecified type R32 [facility] [address] [place] [address] 83100- 9673 Aug, [facility] [id number] [place] [address] 42938- 1692 Jul, [facility] [address] [place] [id number] Jul, Type 2 diabetes mellitus without complication, unspecified terminal worker insulin use status E11.9 ; Chronic kidney [...] E03.9 and Constipation, unspecified constipation type K59.00 [facility] [id number] [place] [address] 45501- 0671 19 Jul, 2016 [facility] [address] 17122- 0788 16 Jul, 2016 [employer] [id number] Jul, 2016 Anemia, unspecified type D64.9 ; Acute renal failure, unspecified acute renal failure type N17.9 ; Other chronic pain G89.29 ; Obstructive sleep apnea syndrome G47.33 and Type 2 diabetes mellitus without complication, unspecified half-way insulin use status E11.9 [facility] [id number] [place] [address] 71037- 4224 Jul, [facility] [id number] [place] [address] 83978- 9367 Jul, [facility] [id number] [place] [address] 72887- 7339 Jul, [facility] [id number] [place] [address] 48075- 9554 Jul, [facility] [id number] [place] [address] 88025- 4455 Jul, [employer] [facility] [id number] Jun, Other chronic pain G89.29 ; Hayes catheter in place Z92.89 ; Chronic kidney disease (CKD), unspecified stage N18.9 and Blisters of multiple sites R23.8 [facility] [id number] [place] [address] 06445- 4259 Jun, [facility] [id number] [place] [address] 74546- 2296 Jun, [facility] [id number], [place] [address]- 0571 Jun, [facility] [id number] [address]- 2293 Jun, [facility] [address] [facility] [id number] [address]- 4867 Jun, [facility] [address] [facility] [id number] [place] [address]- 2930 Jun, [facility] [address] [facility] [id number] [place] [address]- 7278 Jun, [facility] [address] [facility] [id number] [place] [address]- 2355 Jun, [facility] [address], [place] [address]- 3373 Jun, [facility] [address], [place] [address]- 2534 Jun, [facility] [id number] [address]- 5717 Jun, [facility] [id number], [place] [address]- 3038 May, [facility] [id number], [place] [address]- 8023 May, [facility] [id number], [place] [address]- 2822 May, Other chronic pain G89.29 [facility] [address] [place] [id number] May, Encounter to [facility] Z76.89 ; Type 2 diabetes mellitus [...]
--- OUTSIDE RECORDS SUMMARY | 2018-09-17 19:31 | XMS REPORT ---
Author Author ALONZO JORDAN Organization [facility] Address [address] [place] [address] Care Team Providers Care Cartographic Technician Name Role Phone ALONZO JORDAN Unavailable PROBLEMS Type Condition ICD9-CM Code OJY34-AW Code Onset Dates Condition Status SNOMED Code Problem Ulcer L98.499 Active 499475159 Problem Chronic fatigue R53.82 Active 62624188 Problem Decreased renal function N28.9 Active 98629766 Problem Nephrolithiasis N20.0 Active 60990857 Problem Chronic kidney disease (CKD), unspecified stage N18.9 Active 144808562 Problem Venous stasis dermatitis of both lower extremities I87.2 Active 23163102 Problem Urinary incontinence, unspecified type R32 Active 588261612 Problem Morbid obesity due to excess calories E66.01 Active 808774470 Problem Anxiety F41.9 Active 96289634 Problem Bladder spasms N32.89 Active 441767099 Problem Stage 4 chronic kidney disease N18.4 Active 483421141 Problem Primary insomnia F51.01 Active 0916272 Problem Hypothyroidism, unspecified type E03.9 Active 40600835 Problem Cataract H26.9 Active 498167339 Problem Type 2 diabetes mellitus without complication, unspecified instrument tech insulin use status E11.9 Active 11888370 Problem Depression, unspecified depression type F32.9 Active 56699662 Problem Other chronic pain G89.29 Active 01645980 Problem Perennial allergic rhinitis, unspecified allergic rhinitis trigger J30.89 Active 686655934 Problem Obstructive sleep apnea syndrome G47.33 Active 45191080 Problem Restless leg syndrome G25.81 Active 48728752 Problem Closed fracture of left patella, unspecified fracture morphology, sequela S82.002S Active 50784279 Problem Gastroesophageal reflux disease without esophagitis K21.9 Active 579164555 Problem Atrial fibrillation, unspecified type I48.91 Active 84603071 ALLERGIES No Information ENCOUNTERS Encounter Location Date Diagnosis [facility] [id number] [place] [address] 20870- 7797 May, Urinary tract infection without hematuria, site unspecified N39.0 [facility] [id number] [place] [address] 86824- 9228 May, Bladder spasms N32.89 [facility] [id number] [place] [address] 30050- 4671 May, Primary insomnia F51.01 [facility] [id number] [place] [address] 20297- 6382 May, [facility] [id number] [place] [address] 25306- 0845 May, Primary insomnia F51.01 and Arthralgia, unspecified joint M25.50 [facility] [id number] [place] [address] 58686- 1788 May, Other chronic pain G89.29 [facility] [address] [place] [id number] May, Nephrolithiasis N20.0 ; Cataract H26.9 and Macrocytic anemia D53.9 [facility] [id number] [place] [address] 28949- 6527 May, [facility] [id number] [place] [address] 39365- 8453 Apr, [facility] [id number] [place] [address] 13774- 0648 Apr, [facility] [id number] [place] [address] 19631- 6000 Apr, Primary insomnia F51.01 [facility] [id number] [place] [address] 44296- 7884 Apr, [facility] [id number] [place] [address] 79613- 2333 March, Other chronic pain G89.29 [facility] [address] [place] [id number] March, Arthralgia, unspecified joint M25.50 ; Abnormal urine sediment R82.90 ; Venous stasis dermatitis of both lower extremities I87.2 ; Stage 4 chronic kidney disease N18.4 and Cataract of right eye, unspecified cataract type H26.9 [facility] [id number] [place] [address] 51762- 8224 March, Primary insomnia F51.01 [facility] [address] [place] [id number] March, Cervicalgia M54.2 ; Acute pain of right shoulder M25.511 and Pain of left femur M89.8X5 [facility] [address] 74348- 9161 March, [facility] [id number] [place] [address] 36393- 6039 March, Other chronic pain G89.29 [facility] [id number] [place] [address] 88044- 5933 Feb, Via [facility] [address] [place] [id number] Feb, Leg swelling M79.89 [facility] [id number] [place] [address] 49414- 1130 Feb, Primary insomnia F51.01 [facility] [address] [place] [id number] Feb, Fever in other diseases R50.81 and Intermittent left lower quadrant abdominal pain R10.32 [facility] [id number] [place] [address] 44703- 9483 Feb, [facility] [id number] [place] [address] 12759- 3781 Feb, [facility] [id number] [place] [address] 23459- 4575 Feb, Depression, unspecified depression type F32.9 ; Hypothyroidism, unspecified type E03.9 ; Type 2 diabetes mellitus without complication, unspecified instrument tech insulin use status E11.9 and Anxiety F41.9 [facility] [address] [address] 4999 Feb, Other chronic pain G89.29 [facility] [id number] [place] [address] [id number] Jan, Other chronic pain G89.29 [facility] [address] [address]- 1670 Jan, Bladder spasms N32.89 [facility] [id number] [place] [address] 81295- 0621 Jan, Bladder spasms N32.89 [facility] [id number] [place] [address] 74339- 5820 Dec, Bladder spasms N32.89 [facility] [id number] [place] [address] 46983- 8931 Dec, Depression, unspecified depression type F32.9 [facility] [address] [place] [address] 15747- 2822 Dec, [facility] [address] [place] [id number] Dec, Hypothyroidism, unspecified type E03.9 ; Depression, unspecified depression type F32.9 ; Other chronic pain G89.29 ; Urinary retention R33.9 and Atrial fibrillation, unspecified type I48.91 [facility] [id number] [id number] Dec, [facility] [id number] [place] [address] [id number] Dec, Other chronic pain G89.29 [facility] [id number] [id number] Nov, [facility] [id number] [place] [address] [id number] Nov, Other chronic pain G89.29 [facility] [address] [address]- 0862 Nov, Other chronic pain G89.29 [facility] [id number] [place] [address] 02714- 4493 Nov, [facility] [id number] [place] [address] 58212- 2281 Nov, [facility] [id number] [place] [address] 78936- 7844 Nov, Other chronic pain G89.29 [facility] [id number] [place] [address] 54191- 0736 Nov, Other chronic pain G89.29 [facility] [id number] [place] [address] 97157- 6514 14 Oct, 2017 [facility] [id number] [place] [address] 15323- 9503 Oct, Other chronic pain G89.29 [facility] [address] [place] [id number] Oct, Weakness R53.1 ; Macrocytic anemia D53.9 ; Discolored skin L81.9 ; Other chronic pain G89.29 ; Dysuria R30.0 and Hayes catheter in place Z92.89 [facility] [id number] [place] [address] 38465- 8217 07 Oct, 2017 Other chronic pain G89.29 [facility] [place] [id number] [place] [address] [id number] Sep, [facility] [id number] [place] [address] 83942- 3250 Sep, [facility] [id number] [place] [address] 94618- 5843 Sep, [facility] [place] [id number] [place] [address] [id number] Sep, [facility] [place] [id number] [place] [address] [id number] Sep, Other chronic pain G89.29 [facility] [address] [address]- 6168 Sep, [facility] [id number] [place] [address] [id number] Sep, Other chronic pain G89.29 [facility] [address] [place] [id number] Sep, Chronic urinary tract infection N39.0 ; Other chronic pain G89.29 ; Chronic kidney disease (CKD), unspecified stage N18.9 ; Type 2 diabetes mellitus without complication, unspecified instrument tech insulin use status E11.9 ; Hypothyroidism, unspecified type E03.9 ; Depression, unspecified depression type F32.9 ; Cataract H26.9 ; Obstructive sleep apnea syndrome G47.33 ; Atrial fibrillation, unspecified type I48.91 ; History of femur fracture Z87.81 and [address] catheter in place Z92.89 [facility] [id number] [place] [address] 01216- 7061 Sep, [facility] [id number] [place] [address] 00810- 1295 Aug, [facility] [id number] [place] [address] 03406- 6922 Aug, Other chronic pain G89.29 [facility] [id number] [address]- 7805 Aug, [facility] [id number] [place] [address] 39968- 5836 Aug, [facility] [id number] [id number] Aug, [facility] [id number] [place] [address] 34831- 5493 Aug, [facility] [id number] [place] [address] 12010- 6411 Aug, Type 2 diabetes mellitus without complication, unspecified instrument tech insulin use status E11.9 [facility] [address] [address]- 3140 19 Aug, 2017 Other chronic pain G89.29 [facility] [address] [address]- 3075 18 Aug, 2017 [facility] [id number] [place] [address] 30906- 8098 16 Aug, 2017 [facility] [id number] [place] [address] 20835- 9387 22 Jul, 2017 Other chronic pain G89.29 [facility] [id number] [place] [address] 61603- 3206 19 Jul, 2017 [facility] [id number] [place] [address] 13396- 1166 19 Jul, 2017 Dark brown urine R82.99 [facility] [id number] [place] [address] 30793- 9991 19 Jul, 2017 Dark brown urine R82.99 [facility] [id number] [place] [address] 58116- 7519 14 Jul, 2017 [facility] [id number] [place] [address] 73338- 0903 Jun, Other chronic pain G89.29 [facility] [address] [address]- 8067 Jun, Type 2 diabetes mellitus without complication, unspecified instrument tech insulin use status E11.9 [facility] [address] [address]- 2914 May, Candidiasis, intertrigo B37.2 [facility] [id number] [place] [address] 14890- 5939 May, Other chronic pain G89.29 [facility] [id number] [address]- 2842 May, [facility] [id number] [place] [address] 54628- 0056 May, [facility] [address] [address]- 3138 May, Candidiasis, intertrigo B37.2 [facility] [id number] [place] [address] 30649- 8972 May, Atrial fibrillation, unspecified type I48.91 [facility] [id number] [place] [address] 47801- 4944 May, Hypothyroidism, unspecified type E03.9 and Decreased renal function N28.9 [facility] [id number] [place] [address] 49275- 4057 May, Type 2 diabetes mellitus without complication, unspecified instrument tech insulin use status E11.9 [facility] [id number] [place] [address] 26448- 4758 May, Dental examination Z01.20 [facility] [address] [place] [address] 39516- 9461 May, Chronic kidney disease (CKD), unspecified stage N18.9 ; Type 2 diabetes mellitus without complication, unspecified instrument tech insulin use status E11.9 ; Hypothyroidism, unspecified type E03.9 ; Depression, unspecified depression type F32.9 ; Anemia, unspecified type D64.9 and Ulcer L98.499 [facility] [address] [address]- 2056 May, [facility] [id number] [place] [address] 84386- 6371 Apr, Other chronic pain G89.29 [facility] [id number] [place] [address] 49595- 9386 Apr, Other chronic pain G89.29 [facility] [address] [address]- 2343 March, [facility] [id number] [place] [address] 25006- 5913 March, [facility] [address] [address]- 3531 March, [facility] [id number] [place] [address] 47273- 6040 March, Other chronic pain G89.29 [facility] [id number] [place] [address] 36226- 6920 March, [facility] [id number] [place] [address] 23171- 7760 Feb, [facility] [id number] [place] [address] 99935- 5937 Feb, Type 2 diabetes mellitus without complication, unspecified assisted insulin use status E11.9 ; Candidiasis, intertrigo B37.2 ; Decubitus ulcer of left buttock, unstageable L89.320 and Pressure ulcer of contiguous region involving right buttock and hip, unspecified ulcer stage L89.40 [facility] [id number] [place] [address] 70954- 9801 Feb, Atrial fibrillation, unspecified type I48.91 [facility] [id number] [place] [address] 70122- 1996 Feb, [facility] [id number] [place] [address] 40091- 8124 Feb, [facility] [id number] [place] [address] 14360- 9373 Feb, Other chronic pain G89.29 [facility] [address] [address]- 5792 Jan, Other chronic pain G89.29 [facility] [id number] [place] [address] 32712- 0874 Dec, [facility] [id number] [place] [address] 37588- 0874 Dec, Lethargy R53.83 [facility] [id number] [address]- 3537 17 Dec, 2016 [facility] [address] [address]- 6563 Dec, Other chronic pain G89.29 [facility] [address] [address]- 3039 Nov, [facility] [address] [address]- 5026 Nov, [facility] [id number] [address]- 6869 Nov, Other chronic pain G89.29 [facility] [address] [address]- 8479 Nov, [facility] [address] [address]- 2980 Nov, [facility] [address] [address]- 1734 Nov, [facility] [address] [address]- 4559 Oct, Cough R05 [facility] [address] [address]- 1266 Oct, Urinary tract infection, site not specified N39.0 [facility] [id number] [address]- 8907 Oct, Other chronic pain G89.29 [facility] [id number] [address]- 7233 Oct, Type 2 diabetes mellitus without complication, unspecified assisted insulin use status E11.9 ; Other chronic [...] J30.89 ; Nausea R11.0 and Candidiasis B37.9 [facility] [id number] [place] [address] 81749- 0128 Oct, [facility] [id number] [place] [address] 06812- 5469 Oct, [facility] [id number] [place] [address] 59854- 6299 Oct, [facility] [address] 64342- 6584 Oct, Chronic kidney disease (CKD), unspecified stage N18.9 [facility] [id number] [place] [address] 36514- 5652 Oct, [facility] [id number] [place] [address] 40928- 8069 Sep, Other chronic pain G89.29 [facility] [id number] [place] [address] 43922- 9081 Sep, Chronic kidney disease (CKD), unspecified stage N18.9 and Senile cataract of right eye, unspecified age-related cataract type H25.9 [facility] [id number] [place] [address] 21989- 4132 Sep, [facility] [id number] [place] [address] 39410- 6076 Sep, [facility] [id number] [place] [address] 78364- 4500 Sep, [facility] [id number] [place] [address] 85970- 7162 Sep, [facility] [id number] [place] [address] 47492- 6910 Sep, [facility] [address] [address]- 2286 Aug, [facility] [id number] [place] [address] 71429- 3810 Aug, [facility] [id number] [place] [address] 04580- 3387 Aug, [facility] [id number] [place] [address] 44860- 9393 Aug, Encounter to establish care Z76.89 ; Other chronic pain G89.29 ; Chronic kidney disease (CKD), unspecified stage N18.9 ; Obstructive sleep apnea syndrome G47.33 ; Type 2 diabetes mellitus without complication, unspecified assisted insulin use status E11.9 ; Urinary incontinence, unspecified type R32 ; Depression, unspecified depression type F32.9 ; History of femur fracture Z87.81 ; History of fractured kneecap Z87.81 ; Hypothyroidism , unspecified type E03.9 ; Cataract H26.9 and Gastroesophageal reflux disease without esophagitis K21.9 [facility] [id number] [place] [address] 56759- 5709 Aug, [facility] [id number] [place] [address] 85172- 2409 Aug, Urinary incontinence, unspecified type R32 [facility] [id number] [place] [address] 14769- 3624 Aug, [facility] [id number] [place] [address] 58296- 8211 Jul, [facility] [address] [id number] Jul, Type 2 diabetes mellitus without complication, unspecified instrument tech insulin use status E11.9 ; Chronic kidney [...] E03.9 and Constipation, unspecified constipation type K59.00 [place] [id number] [place] [address] 53234- 7714 19 Jul, 2016 [facility] [address] 13500- 1646 16 Jul, [address] [id number] Jul, 2016 Anemia, unspecified type D64.9 ; Acute renal failure, unspecified acute renal failure type N17.9 ; Other chronic pain G89.29 ; Obstructive sleep apnea syndrome G47.33 and Type 2 diabetes mellitus without complication, unspecified instrument tech insulin use status E11.9 [facility] [id number] [place] [address] 11931- 5379 Jul, [facility] [place] [id number] [place] [address] 59777- 3682 Jul, [facility] [id number] [place] [address] 93553- 0476 Jul, [facility] [id number] [place] [address] 14406- 9598 Jul, [facility] [id number] [place] [address] 30443- 8557 Jul, [employer] [id number] Jun, Other chronic pain G89.29 ; Hayes catheter in place Z92.89 ; Chronic kidney disease (CKD), unspecified stage N18.9 and Blisters of multiple sites R23.8 [facility] [id number] [place] [address] 61497- 2261 Jun, [place] [id number] [place] [address] 24180- 0810 Jun, [place] [address] [facility] [id number] [address]- 7541 Jun, [facility] [address] [facility] [id number] [place] [address] Jun, [facility] [address] [facility] [id number] [place] [address] Jun, [facility] [address] [facility] [id number] [place] [address] Jun, [facility] [address] [facility] [id number] [place] [address] Jun, [facility] [address] [facility] [id number] [place] [address] Jun, [facility] [id number] [address] Jun, [facility] [id number] [address] Jun, [facility] [address] [place] [id number] [address] Jun, [facility] [id number] [address] May, [facility] [address] [id number] [address] May, [facility] [address] [id number] [address] May, Other chronic pain G89.29 [address] [address] [place] [id number] May, Encounter to formerly [facility] care Z76.89 ; Type 2 diabetes mellitus without complication, unspecified assisted insulin use status E11.9 ; Hypothyroidism, unspecified [...] SOCIAL HISTORY Never Assessed REASON FOR VISIT After Hours Clinical Advice PLAN OF CARE VITAL SIGNS MEDICATIONS Unknown [...] Acute Kidney Injury 08/05/16 Hospitalization History UTI, Sepsis--[facility] Hospitalization History Chest pain/SOB/A-fib 02/2017 Hospitalization History Chest pain-[facility] 04/13/17 Hospitalization History UTI, respiratory failure, altered mental status-[facility] 09/13/17
--- OUTSIDE RECORDS SUMMARY | 2018-09-17 19:32 | XMS REPORT ---
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 Name Role Phone LATONYA KIM Unavailable PROBLEMS Type Condition ICD9-CM Code MGF05-CW Code Onset Dates Condition Status SNOMED Code Problem Ulcer L98.499 Active 990247949 Problem Chronic fatigue R53.82 Active 87246303 Problem Decreased renal function N28.9 Active 87028477 Problem Nephrolithiasis N20.0 Active 30207562 Problem Chronic kidney disease (CKD), unspecified stage N18.9 Active 213359998 Problem Venous stasis dermatitis of both lower extremities I87.2 Active 71081813 Problem Urinary incontinence, unspecified type R32 Active 271089965 Problem Morbid obesity due to excess calories E66.01 Active 572524159 Problem Anxiety F41.9 Active 51082621 Problem Bladder spasms N32.89 Active 065124301 Problem Stage 4 chronic kidney disease N18.4 Active 371997455 Problem Primary insomnia F51.01 Active 9741134 Problem Hypothyroidism, unspecified type E03.9 Active 08744239 Problem Cataract H26.9 Active 777781504 Problem Type 2 diabetes mellitus without complication, unspecified 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.9 Active 49252214 Problem Depression, unspecified depression type F32.9 Active 52665788 Problem Other chronic pain G89.29 Active 68405242 Problem Perennial allergic rhinitis, unspecified allergic rhinitis trigger J30.89 Active 187168925 Problem Obstructive sleep apnea syndrome G47.33 Active 15994297 Problem Restless leg syndrome G25.81 Active 35909244 Problem Closed fracture of left patella, unspecified fracture morphology, sequela S82.002S Active 19476017 Problem Gastroesophageal reflux disease without esophagitis K21.9 Active 321496975 Problem Atrial fibrillation, unspecified type I48.91 Active 44786082 ALLERGIES No Information ENCOUNTERS Encounter Location Date Diagnosis [facility] [address] [place] [address] 12796- 6764 May, Primary insomnia F51.01 [facility] [id number] [place] [address] 67006- 5417 May, [facility] [address] [place] [address] 67096- 7515 May, Primary insomnia F51.01 and Arthralgia, unspecified joint M25.50 [facility] [id number] [place] [address] 87947- 8097 May, Other chronic pain G89.29 [facility] [address] [place] [id number] May, Nephrolithiasis N20.0 ; Cataract H26.9 and Macrocytic anemia D53.9 [facility] [id number] [place] [address] 05001- 7576 May, [facility] [id number] [place] [address] 05134- 1498 Apr, [facility] [id number] [place] [address] 76100- 8355 Apr, [facility] [address] [place] [address] 62882- 8648 Apr, Primary insomnia F51.01 [facility] [address] [place] [address] 74539- 3927 Apr, [facility] [id number] [place] [address] 87663- 8798 March, Other chronic pain G89.29 [facility] [address] [place] [id number] March, Arthralgia, unspecified joint M25.50 ; Abnormal urine sediment R82.90 ; Venous stasis dermatitis of both lower extremities I87.2 ; Stage 4 chronic kidney disease N18.4 and Cataract of right eye, unspecified cataract type H26.9 [facility] [address] [place] [address] 55472- 5027 March, Primary insomnia F51.01 [facility] [address] [place] [id number] March, Cervicalgia M54.2 ; Acute pain of right shoulder M25.511 and Pain of left femur M89.8X5 [facility] [address] [place] [address] 66512- 0600 March, [facility] [id number] [place] [address] 14485- 1223 March, Other chronic pain G89.29 [facility] [id number] [place] [address] 51284- 3130 Feb, [facility] [address] [place] [id number] Feb, Leg swelling M79.89 [facility] [id number] [place] [address] 28770- 2051 Feb, Primary insomnia F51.01 [facility] [address] [place] [id number] Feb, Fever in other diseases R50.81 and Intermittent left lower quadrant abdominal pain R10.32 [facility] [id number] [place] [address] 79228- 9788 Feb, [facility] [id number] [place] [address] 07331- 2120 Feb, [facility] [id number] [place] [address] 97258- 3458 Feb, Depression, unspecified depression type F32.9 ; Hypothyroidism, unspecified type E03.9 ; Type 2 diabetes mellitus without complication, unspecified 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.9 and Anxiety F41.9 [facility] [id number] [place] [address] 63993- 9875 Feb, Other chronic pain G89.29 [facility] [id number] [place] [address] [id number] Jan, Other chronic pain G89.29 [facility] [id number] [address] Jan, Bladder spasms N32.89 [facility] [address] [address] 2246 Jan, Bladder spasms N32.89 [facility] [address], [place] [address]- 9589 Dec, Bladder spasms N32.89 [facility] [address], [place] [address]- 4405 Dec, Depression, unspecified depression type F32.9 [facility] [address], [place] [address]- 8970 Dec, [facility] [address] [facility] [place] [id number] Dec, Hypothyroidism, unspecified type E03.9 ; Depression, unspecified depression type F32.9 ; Other chronic pain G89.29 ; Urinary retention R33.9 and Atrial fibrillation, unspecified type I48.91 [facility] [id number] [address] Dec, [facility] [id number] [address] Dec, Other chronic pain G89.29 [facility] [id number] [address] Nov, [facility] [id number] [address] Nov, Other chronic pain G89.29 [facility] [id number] [address]- 8206 Nov, Other chronic pain G89.29 [facility] [address], [place] [address]- 6616 Nov, [facility] [address], [place] [address]- 4557 Nov, [facility] [id number], [place] [address]- 7033 Nov, Other chronic pain G89.29 [facility] [address] 1107 Nov, Other chronic pain G89.29 [facility] [address], [place] [address]- 0445 14 Oct, 2017 [facility] [address] [place] [address] 71013- 4029 Oct, Other chronic pain G89.29 [facility] [address] [facility] [place] [address] Oct, Weakness R53.1 ; Macrocytic anemia D53.9 ; Discolored skin L81.9 ; Other chronic pain G89.29 ; Dysuria R30.0 and Hayes catheter in place Z92.89 [facility] [address], [place] [address]- 0462 Oct, Other chronic pain G89.29 [facility] [id number] [place] [id number] Sep, [facility] [address], [place] [address]- 0023 Sep, [facility] [id number], [place] [address]- 3417 Sep, [facility] [id number] [place] [id number] Sep, [facility] [id number] [place] [address] [id number] Sep, Other chronic pain G89.29 [facility] [address], [place] [address]- 1358 Sep, [facility] [id number] [address] Sep, Other chronic pain G89.29 [facility] [address] [place] [id number] Sep, Chronic urinary tract infection N39.0 ; Other chronic pain G89.29 ; Chronic kidney disease (CKD), unspecified stage N18.9 ; Type 2 diabetes mellitus without complication, unspecified 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.9 ; Hypothyroidism, unspecified type E03.9 ; Depression, unspecified depression type F32.9 ; Cataract H26.9 ; Obstructive sleep apnea syndrome G47.33 ; Atrial fibrillation, unspecified type I48.91 ; History of femur fracture Z87.81 and [address] catheter [address] place Z92.89 [facility] [address], [place] [address]- 3124 Sep, [facility] [id number] [place] [address] 44606- 1693 Aug, [facility] [id number] [place] [address] 81741- 0468 Aug, Other chronic pain G89.29 [facility] [id number] [place] [address] 62784- 8694 Aug, [facility] [id number] [place] [address] 05965- 4568 Aug, [facility] [id number] [place] [address] [id number] Aug, [facility] [address], [place] [address]- 3410 Aug, [facility] [id number], [place] [address]- 2904 Aug, Type 2 diabetes mellitus without complication, unspecified correction insulin use status E11.9 [facility] [id number] [place] [address] 59237- 7345 Aug, Other chronic pain G89.29 [facility] [id number], [place] [address]- 9287 Aug, [facility] [id number], [place] [address]- 4802 16 Aug, 2017 [facility] [address], [place] [address]- 5842 22 Jul, 2017 Other chronic pain G89.29 [facility] [address], [place] [address] 2546 Jul, [facility] [address], [place] [address]- 6976 Jul, Dark brown urine R82.99 [facility] [address], [place] [address]- 4317 Jul, Dark brown urine R82.99 [facility] [address], [place] [address]- 3567 14 Jul, 2017 [facility] [address], [place] [address]- 4157 Jun, Other chronic pain G89.29 [facility] [address], [place] [address]- 6132 Jun, Type 2 diabetes mellitus without complication, unspecified correction insulin use status E11.9 [facility] [address], [place] [address]- 3364 May, Candidiasis, intertrigo B37.2 [facility] [address], [place] [address]- 8655 May, Other chronic pain G89.29 [facility] [address], [place] [address]- 9685 May, [facility] [address], [place] [address]- 4206 May, [facility] [address], [place] [address]- 7068 May, Candidiasis, intertrigo B37.2 [facility] [address], [place] [address]- 5679 May, Atrial fibrillation, unspecified type I48.91 [facility] [address] [place] [address] 49569- 0063 May, Hypothyroidism, unspecified type E03.9 and Decreased renal function N28.9 [facility] [id number] [place] [address] 85900- 8494 May, Type 2 diabetes mellitus without complication, unspecified 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.9 [facility] [id number] [place] [address] 34519- 7468 May, Dental examination Z01.20 [facility] [id number] [place] [address] 41471- 1196 May, Chronic kidney disease (CKD), unspecified stage N18.9 ; Type 2 diabetes mellitus without complication, unspecified 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.9 ; Hypothyroidism, unspecified type E03.9 ; Depression, unspecified depression type F32.9 ; Anemia, unspecified type D64.9 and Ulcer L98.499 [facility] [id number] [place] [address] 59569- 7566 May, [facility] [id number] [place] [address] 64853- 0864 Apr, Other chronic pain G89.29 [facility] [id number] [place] [address] 76266- 5449 Apr, Other chronic pain G89.29 [facility] [id number] [place] [address] 91901- 5450 March, [facility] [id number] [place] [address] 68111- 8601 March, [facility] [id number] [place] [address] 89583- 1837 March, [facility] [id number] [place] [address] 37156- 9279 March, Other chronic pain G89.29 [place] [address], [place] [address]- 0108 March, [facility] [id number] [place] [address] 08307- 5451 Feb, [facility] [id number] [place] [address] 19713- 9370 Feb, Type 2 diabetes mellitus without complication, unspecified correction insulin use status E11.9 ; Candidiasis, intertrigo B37.2 ; Decubitus ulcer of left buttock, unstageable L89.320 and Pressure ulcer of contiguous region involving right buttock and hip, unspecified ulcer stage L89.40 [facility] [id number] [place] [address] 89452- 1297 Feb, Atrial fibrillation, unspecified type I48.91 [facility] [id number] [place] [address] 65742- 9461 Feb, [facility] [id number] [place] [address] 69208- 3320 Feb, [facility] [id number] [place] [address] 44459- 4874 Feb, Other chronic pain G89.29 [facility] [id number] [place] [address] 79177- 7935 Jan, Other chronic pain G89.29 [facility] [address] [place] [address] 24906- 5676 Dec, [facility] [address] [place] [address] 49920- 0162 Dec, Lethargy R53.83 [facility] [id number] [place] [address] 28135- 3906 17 Dec, 2016 [facility] [address] [place] [address] 94077- 5937 10 Dec, 2016 Other chronic pain G89.29 [facility] [address] [place] [address]- 3734 Nov, [facility] [address], [place] [address]- 5247 Nov, [facility] [address], [place] [address]- 5614 Nov, Other chronic pain G89.29 [facility] [address], [place] [address]- 4168 Nov, [facility] [address], [place] [address]- 6955 Nov, [facility] [address] [place] [address] 03014- 4684 Nov, [facility] [address] [place] [address] 51067- 9571 Oct, Cough R05 [facility] [address], [place] [address]- 7686 Oct, Urinary tract infection, site not specified N39.0 [facility] [address], [place] [address]- 8923 16 Oct, 2016 Other chronic pain G89.29 [facility] [address], [place] [address]- 2950 15 Oct, 2016 Type 2 diabetes mellitus without complication, unspecified correction insulin use status E11.9 ; Other chronic [...] [facility] [address], [place] [address]- 8936 Oct, [facility] [id number], [place] [address]- 2716 Oct, [facility] [id number] [place] [address] 29976- 5223 Oct, [facility] [address] [place] [address] 86706- 1078 Oct, Chronic kidney disease (CKD), unspecified stage N18.9 [facility] [id number] [place] [address] 11283- 0233 Oct, [facility] [id number] [place] [address] 91832- 7009 Sep, Other chronic pain G89.29 [facility] [id number] [place] [address] 74249- 3201 Sep, Chronic kidney disease (CKD), unspecified stage N18.9 and Senile cataract of right eye, unspecified age-related cataract type H25.9 [facility] [address], [place] [address]- 6684 Sep, [facility] [id number] [place] [address] 24220- 9118 Sep, [facility] [address], [place] [address]- 4114 Sep, [facility] [address] [place] [address] 87744- 6960 Sep, [facility] [id number], [place] [address]- 7583 Sep, [facility] [id number] [place] [address] 62640- 9358 Aug, [facility] [id number], [place] [address]- 1839 Aug, [facility] [id number] [place] [address] 61223- 4472 Aug, [place] [address], [place] [address]- 3349 Aug, Encounter to establish care Z76.89 ; [...] and Gastroesophageal reflux disease without esophagitis K21.9 [place] [id number] [place] [address] 88078- 9697 Aug, [place] [id number] [place] [address] 63377- 9678 Aug, Urinary incontinence, unspecified type R32 [place] [id number] [place] [address] 60145- 6185 Aug, [id number] [place] [address] 30372- 8786 Jul, [facility] [address] [place] [id number] Jul, Type 2 diabetes mellitus without complication, unspecified 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.9 ; Chronic kidney [...] E03.9 and Constipation, unspecified constipation type K59.00 [address] [place] [address] 85477- 8701 19 Jul, 2016 [facility] [id number], [place] [address]- 8212 16 Jul, [facility] [address] [place] [id number] 14 Jul, 2016 Anemia, unspecified type D64.9 ; Acute renal failure, unspecified acute renal failure type N17.9 ; Other chronic pain G89.29 ; Obstructive sleep apnea syndrome G47.33 and Type 2 diabetes mellitus without complication, unspecified 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.9 [facility] [address], [place] [address]- 7152 Jul, [facility] [id number] [place] [address] 33505- 4696 Jul, [facility] [id number] [place] [address] 38215- 9745 Jul, [facility] [address], [place] [address]- 9046 Jul, [facility] [address], [place] [address]- 2436 Jul, [facility] [address] [place] [id number] Jun, Other chronic pain G89.29 ; Hayes catheter in place Z92.89 ; Chronic kidney disease (CKD), unspecified stage N18.9 and Blisters of multiple sites R23.8 [facility] [address], [place] [address]- 3075 Jun, [facility] [address], [place] [address]- 4154 Jun, [facility] [address], [place] [address]- 1318 Jun, [facility] [address], [place] [address]- 7704 Jun, [facility] [address], [place] [address]- 7876 Jun, [facility] [id number], [place] [address]- 8376 Jun, [facility] [address], [place] [address]- 3592 Jun, [facility] [id number], [place] [address]- 8270 Jun, [facility] [address], [place] [address]- 2138 Jun, [facility] [id number], [place] [address]- 6569 Jun, [facility] [address], [place] [address]- 9758 Jun, [facility] [address], [place] [address]- 1160 May, [facility] [address], [place] [address]- 8320 May, [facility] [id number], [place] [address]- 6834 May, Other chronic pain G89.29 [facility] [address] [place] [id number] May, Encounter to establish care Z76.89 ; Type 2 diabetes mellitus without complication, unspecified 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.9 ; Hypothyroidism, unspecified [...] 4 times a day 1 tablet 6h Jan, 28 days Active RESULTS No Results PROCEDURES [...] Acute Kidney Injury 08/05/16 Hospitalization History UTI, Sepsis--[facility] Hospitalization History Chest pain/SOB/A-fib 02/2017 Hospitalization History Chest pain-[facility] 04/13/17 Hospitalization History UTI, respiratory failure, altered mental status-[facility] 09/13/17
--- OUTSIDE RECORDS SUMMARY | 2018-09-17 19:32 | XMS REPORT ---
Author Author ARTI REEVES [facility] Address [address] [place] [address] Care Team Providers Care Service Center Representative Name Role Phone LALA ARTI Unavailable PROBLEMS Type Condition ICD9-CM Code [id number] Code Onset Dates Condition Status SNOMED Code Problem Ulcer L98.499 Active 657977676 Problem Chronic fatigue R53.82 Active 98336773 Problem Decreased renal function N28.9 Active 57300764 Problem Nephrolithiasis N20.0 Active 34631216 Problem Chronic kidney disease (CKD), unspecified stage N18.9 Active 258613301 Problem Venous stasis dermatitis of both lower extremities I87.2 Active 41956889 Problem Urinary incontinence, unspecified type R32 Active 900808330 Problem Morbid obesity due to excess calories E66.01 Active 103350469 Problem Anxiety F41.9 Active 43139320 Problem Bladder spasms N32.89 Active 192239755 Problem Stage 4 chronic kidney disease N18.4 Active 104989600 Problem Primary insomnia F51.01 Active 6703338 Problem Hypothyroidism, unspecified type E03.9 Active 28328253 Problem Cataract H26.9 Active 754791243 Problem Type 2 diabetes mellitus without complication, 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 Active 14701843 Problem Depression, unspecified depression type F32.9 Active 74232504 Problem Other chronic pain G89.29 Active 34209692 Problem Perennial allergic rhinitis, unspecified allergic rhinitis trigger J30.89 Active 862554325 Problem Obstructive sleep apnea syndrome G47.33 Active 16981546 Problem Restless leg syndrome G25.81 Active 35661050 Problem Closed fracture of left patella, unspecified fracture morphology, sequela S82.002S Active 08627211 Problem Gastroesophageal reflux disease without esophagitis K21.9 Active 435785345 Problem Atrial fibrillation, unspecified type I48.91 Active 05863168 ALLERGIES No Information ENCOUNTERS Encounter Location Date Diagnosis [facility] [address], [place] [address] May, Primary insomnia F51.01 [facility] [id number] [place] [address] 25983- 9965 May, [facility] [address], [place] [address] May, Primary insomnia F51.01 and Arthralgia, unspecified joint M25.50 [facility] [address] [place] [address] 93346- 5006 May, Other chronic pain G89.29 Via [facility] [employer] [address] [place] [id number] May, Nephrolithiasis N20.0 ; Cataract H26.9 and Macrocytic anemia D53.9 [facility] [address], [place] [address] May, [facility] [address], [place] [address] Apr, [facility] [address], [place] [address] 44[address] Apr, [facility] [address], [place] [address] 0058 Apr, Primary insomnia F51.01 [facility] [address], [place] [address] 85[address] Apr, [facility] [address], [place] [address] March, Other chronic pain G89.29 [facility] [address] [place] [id number] March, Arthralgia, unspecified joint M25.50 ; Abnormal urine sediment R82.90 ; Venous stasis dermatitis of both lower extremities I87.2 ; Stage 4 chronic kidney disease N18.4 and Cataract of right eye, unspecified cataract type H26.9 [facility] [id number] [place] [address] 02072- 8867 March, Primary insomnia F51.01 Via [employer] [address] [place] [address] March, Cervicalgia M54.2 ; Acute pain of right shoulder M25.511 and Pain of left femur M89.8X5 [facility] [id number] [place] [address] 17711- 6160 March, [facility] [id number] [place] [address] 26062- 8444 March, Other chronic pain G89.29 [facility] [address] [address]- 9826 Feb, [facility] [address] [place] [id number] Feb, Leg swelling M79.89 [facility] [address] [address]- 1768 Feb, Primary insomnia F51.01 [facility] [address] [place] [id number] Feb, Fever in other diseases R50.81 and Intermittent left lower quadrant abdominal pain R10.32 [facility] [id number] [place] [address] 27769- 1562 Feb, [facility] [address] [place] [address] 55509- 1435 Feb, [facility] [id number] [place] [address] 45158- 8601 Feb, Depression, unspecified depression type F32.9 ; Hypothyroidism, unspecified type E03.9 ; Type 2 diabetes mellitus without complication, unspecified senior living insulin use status E11.9 and Anxiety F41.9 [facility] [id number] [place] [address] 88170- 4196 Feb, Other chronic pain G89.29 [facility] [id number] [place] [id number] Jan, Other chronic pain G89.29 [facility] [address] [address] Jan, Bladder spasms N32.89 [facility] [address] [place] [address] 58562- 0430 Jan, Bladder spasms N32.89 [facility] [address], [place] [address] 5074 Dec, Bladder spasms N32.89 [facility] [address] [place] [address] 28758- 4878 Dec, Depression, unspecified depression type F32.9 [facility] [address] [place] [address] 83509- 9612 Dec, [address] [facility] [address] [place] [id number] Dec, Hypothyroidism, unspecified type E03.9 ; Depression, unspecified depression type F32.9 ; Other chronic pain G89.29 ; Urinary retention R33.9 and Atrial fibrillation, unspecified type I48.91 [facility] [id number] [id number] Dec, [facility] [id number] [place] [address] [id number] Dec, Other chronic pain G89.29 [facility] [id number] [address] Nov, [facility] [id number] [address] Nov, Other chronic pain G89.29 [facility] [address], [place] [address] 2546 Nov, Other chronic pain G89.29 [facility] [address], [place] [address] 9856 Nov, [facility] [address] [place] [address] 22947- 5374 Nov, [facility] [address], [place] [address] 6291 Nov, Other chronic pain G89.29 [facility] [address] [address] Nov, Other chronic pain G89.29 [facility] [address], [place] [address] 3[address] 14 Oct, 2017 [facility] [address], [place] [address] 2075 Oct, Other chronic pain G89.29 [facility] [address] [place] [id number] Oct, Weakness R53.1 ; Macrocytic anemia D53.9 ; Discolored skin L81.9 ; Other chronic pain G89.29 ; Dysuria R30.0 and Hayes catheter in place Z92.89 [facility] [address], [place] [address] 9826 Oct, Other chronic pain G89.29 [facility] [id number] [place] [address] [id number] Sep, [facility] [address], [place] [address] 9291 Sep, [facility] [address], [place] [address] 0478 Sep, [facility] [id number] [id number] Sep, [facility] [id number] [place] [address] [id number] Sep, Other chronic pain G89.29 [facility] [address] [address] Sep, [facility] [id number] [id number] Sep, Other chronic pain G89.29 [facility] [address] [place] [id number] Sep, Chronic urinary tract infection N39.0 ; Other chronic pain G89.29 ; Chronic kidney disease (CKD), unspecified stage N18.9 ; Type 2 diabetes mellitus without complication, 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 ; Hypothyroidism, unspecified type E03.9 ; Depression, unspecified depression type F32.9 ; Cataract H26.9 ; Obstructive sleep apnea syndrome G47.33 ; Atrial fibrillation, unspecified type I48.91 ; History of femur fracture Z87.81 and [address] catheter in [address] Z92.89 [facility] [id number] [place] [address] 26966- 6181 Sep, [facility] [id number] [place] [address] 34095- 7761 Aug, [facility] [id number] [place] [address] 01872- 3430 Aug, Other chronic pain G89.29 [facility] [id number] [place] [address] 02530- 7143 Aug, [facility] [id number] [place] [address] 42094- 9563 Aug, [facility] [id number] [place] [address] [id number] Aug, [facility] [id number] [place] [address] 60813- 0904 Aug, [facility] [id number] [place] [address] 38465- 1912 Aug, Type 2 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 mellitus without complication, 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 [facility] [id number] [place] [address] 12668- 7419 Aug, Other chronic pain G89.29 [facility] [address] [address]- 7251 Aug, [facility] [address], [place] [address]- 2779 16 Aug, 2017 [facility] [id number] [place] [address] 99747- 0016 Jul, Other chronic pain G89.29 [facility] [address], [place] [address]- 5560 Jul, [facility] [id number] [place] [address] 44320- 0959 Jul, Dark brown urine R82.99 [facility] [address] [place] [address] 35918- 5973 Jul, Dark brown urine R82.99 [facility] [address] [place] [address] 63450- 5679 14 Jul, 2017 [facility] [id number] [place] [address] 97846- 6679 Jun, Other chronic pain G89.29 [facility] [id number] [place] [address] 14967- 7947 Jun, Type 2 diabetes mellitus without complication, unspecified senior living insulin use status E11.9 [facility] [id number] [place] [address] 32901- 6377 May, Candidiasis, intertrigo B37.2 [facility] [address] [place] [address] 16011- 8697 May, Other chronic pain G89.29 [facility] [address], [place] [address]- 5943 May, [facility] [id number] [place] [address] 59755- 1828 May, [facility] [id number] [place] [address] 51860- 5176 May, Candidiasis, intertrigo B37.2 [facility] [id number] [place] [address] 36355- 1657 May, Atrial fibrillation, unspecified type I48.91 [facility] [id number] [place] [address] 64684- 4718 May, Hypothyroidism, unspecified type E03.9 and Decreased renal function N28.9 [facility] [id number] [place] [address] 74653- 7048 May, Type 2 diabetes mellitus without complication, unspecified senior living insulin use status E11.9 [facility] [id number] [place] [address] 68421- 5407 May, Dental examination Z01.20 [facility] [id number] [place] [address] 67806- 3807 May, Chronic kidney disease (CKD), unspecified stage N18.9 ; Type 2 diabetes mellitus without complication, unspecified senior living insulin use status E11.9 ; Hypothyroidism, unspecified type E03.9 ; Depression, unspecified depression type F32.9 ; Anemia, unspecified type D64.9 and Ulcer L98.499 [facility] [id number] [place] [address] 32023- 7671 May, [facility] [id number] [place] [address] 24745- 3506 Apr, Other chronic pain G89.29 [facility] [id number] [place] [address] 24949- 0972 Apr, Other chronic pain G89.29 [facility] [id number] [place] [address] 88130- 7659 March, [facility] [id number] [place] [address] 29610- 6683 March, [facility] [id number] [place] [address] 03088- 1538 March, [facility] [id number] [place] [address] 23980- 3378 March, Other chronic pain G89.29 [facility] [address], [place] [address]- 8517 March, [facility] [id number] [place] [address] 45093- 0793 Feb, [facility] [address] [place] [address] 89286- 8278 Feb, Type 2 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 complication, 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 ; Candidiasis, intertrigo B37.2 ; Decubitus ulcer of left buttock, unstageable L89.320 and Pressure ulcer of contiguous region involving right buttock and hip, unspecified ulcer stage L89.40 [facility] [id number] [place] [address] 73878- 0346 Feb, Atrial fibrillation, unspecified type I48.91 [facility] [id number] [place] [address] 58855- 5513 Feb, [facility] [id number] [place] [address] 31694- 1319 Feb, [facility] [id number] [place] [address] 49768- 2733 Feb, Other chronic pain G89.29 [facility] [address] [place] [address] 91948- 0148 Jan, Other chronic pain G89.29 [facility] [id number] [place] [address] 83030- 2847 Dec, [facility] [address] [place] [address] 89361- 5726 Dec, Lethargy R53.83 [facility] [address] [place] [address] 05337- 4374 17 Dec, 2016 [facility] [address] [place] [address] 31324- 4958 10 Dec, 2016 Other chronic pain G89.29 [facility] [address], [place] [address]- 2569 Nov, [facility] [address] [place] [address] 43082- 7957 Nov, [facility] [address], [place] [address]- 0331 Nov, Other chronic pain G89.29 [facility] [id number] [place] [address] 10632- 8018 Nov, [facility] [id number] [place] [address] 55585- 2213 Nov, [facility] [id number] [place] [address] 78702- 6825 Nov, [facility] [id number] [place] [address] 85284- 4952 Oct, Cough R05 [facility] [id number] [place] [address] 11900- 6349 Oct, Urinary tract infection, site not specified N39.0 [facility] [address] [place] [address] 71172- 5895 16 Oct, 2016 Other chronic pain G89.29 [facility] [address] [place] [address] 77785- 7118 Oct, Type 2 diabetes mellitus without complication, unspecified senior living insulin use status E11.9 ; Other chronic [...] J30.89 ; Nausea R11.0 and Candidiasis B37.9 [facility] [address] [place] [address] 12413- 8044 Oct, [facility] [address], [place] [address]- 9785 Oct, [facility] [address] [place] [address] 14942- 8201 Oct, [facility] [address] [address]- 0867 Oct, Chronic kidney disease (CKD), unspecified stage N18.9 [facility] [address] [place] [address] 25659- 0996 Oct, [facility] [id number] [place] [address] 34478- 9794 Sep, Other chronic pain G89.29 [facility] [id number] [place] [address] 50905- 0891 Sep, Chronic kidney disease (CKD), unspecified stage N18.9 and Senile cataract of right eye, unspecified age-related cataract type H25.9 [facility] [address], [place] [address]- 8287 Sep, [facility] [id number] [place] [address] 67049- 8899 Sep, [facility] [address], [place] [address]- 8479 Sep, [facility] [address], [place] [address]- 8968 Sep, [facility] [address], [place] [address]- 1703 Sep, [facility] [id number] [place] [address] 99386- 4007 Aug, [facility] [address], [place] [address]- 3490 Aug, [facility] [id number] [place] [address] 75816- 9644 Aug, [facility] [address] 11306- 2981 Aug, Encounter to establish care Z76.89 ; [...] and Gastroesophageal reflux disease without esophagitis K21.9 [facility] [address] 79820- 9465 Aug, [facility] [address] 65069- 1049 Aug, Urinary incontinence, unspecified type R32 [address] 09457- 9457 Aug, [address] 61773- 5444 Jul, [facility] [address] [place] [id number] Jul, Type 2 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 without complication, 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 [...] E03.9 and Constipation, unspecified constipation type K59.[address] 62108- 4552 19 Jul, 2016 [facility] [address], [place] [address]- 6018 16 Jul, [facility] [address] [place] [id number] 14 Jul, 2016 Anemia, unspecified type D64.9 ; Acute renal failure, unspecified acute renal failure type N17.9 ; Other chronic pain G89.29 ; Obstructive sleep apnea syndrome G47.33 and Type 2 diabetes mellitus without complication, unspecified senior living insulin use status E11.9 [facility] [address], [place] [address]- 6387 13 Jul, 2016 [facility] [address], [place] [address]- 9042 Jul, [facility] [address], [place] [address]- 5824 Jul, [facility] [address], [place] [address]- 7627 07 Jul, 2016 [facility] [address] [address]- [address] 07 Jul, [facility] [address] [place] [id number] Jun, Other chronic pain G89.29 ; Hayes catheter in place Z92.89 ; Chronic kidney disease (CKD), unspecified stage N18.9 and Blisters of multiple sites R23.8 [facility] [address], [place] [address]- 8886 Jun, [facility] [address], [place] [address]- 3959 Jun, [facility] [address] [address]- 1770 Jun, [facility] [address], [place] [address]- 8390 Jun, [facility] [address], [place] [address]- 2897 Jun, [facility] [id number] [address]- 4282 Jun, [facility] [id number] [address]- 5469 Jun, [facility] [address], [place] [address]- 0320 Jun, [facility] [address], [place] [address]- 6326 Jun, [facility] [address], [place] [address]- 3852 Jun, [facility] [address], [place] [address]- 8916 Jun, [facility] [address], [place] [address]- 7121 May, [facility] [id number], [place] [address] May, [facility] [address] [id number] [address] May, Other chronic pain G89.[address] [id number] May, Encounter to [facility] Z76.89 ; Type 2 diabetes mellitus [...] SOCIAL HISTORY Never Assessed REASON FOR VISIT Restart Oxybutynin for bladder spasms PLAN OF CARE VITAL SIGNS MEDICATIONS Medication Instructions Dosage Frequency Start Date End Date Duration Status Oxybutynin Chloride 5 mg Orally Once a day 2 tablet 24h Jan, Active RESULTS No Results PROCEDURES No Known [...] Acute Kidney Injury 08/05/16 Hospitalization History UTI, Sepsis--[facility] Hospitalization History Chest pain/SOB/A-fib 02/2017 Hospitalization History Chest pain-[facility] 04/13/17 Hospitalization History UTI, respiratory failure, altered mental status-[facility] 09/13/17
--- OUTSIDE RECORDS SUMMARY | 2018-09-17 19:32 | XMS REPORT ---
Author Author LATONYA KIM [facility] [address] Address [address] [place] [address] Care Team Providers Care Client Service Supervisor Name Role Phone LATONYA KIM Unavailable PROBLEMS Type Condition ICD9-CM Code HTN02-FE Code Onset Dates Condition Status SNOMED Code Problem Ulcer L98.499 Active 687104260 Problem Chronic fatigue R53.82 Active 15135212 Problem Decreased renal function N28.9 Active 46905751 Problem Nephrolithiasis N20.0 Active 46570037 Problem Chronic kidney disease (CKD), unspecified stage N18.9 Active 043941591 Problem Venous stasis dermatitis of both lower extremities I87.2 Active 69535706 Problem Urinary incontinence, unspecified type R32 Active 951505516 Problem Morbid obesity due to excess calories E66.01 Active 988231419 Problem Anxiety F41.9 Active 85067927 Problem Bladder spasms N32.89 Active 781507352 Problem Stage 4 chronic kidney disease N18.4 Active 000288727 Problem Primary insomnia F51.01 Active 3717417 Problem Hypothyroidism, unspecified type E03.9 Active 11647068 Problem Cataract H26.9 Active 942293948 Problem Type 2 diabetes mellitus without complication, 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 Active 28725271 Problem Depression, unspecified depression type F32.9 Active 46428229 Problem Other chronic pain G89.29 Active 43444750 Problem Perennial allergic rhinitis, unspecified allergic rhinitis trigger J30.89 Active 771938321 Problem Obstructive sleep apnea syndrome G47.33 Active 44926517 Problem Restless leg syndrome G25.81 Active 20826289 Problem Closed fracture of left patella, unspecified fracture morphology, sequela S82.002S Active 13820540 Problem Gastroesophageal reflux disease without esophagitis K21.9 Active 145684136 Problem Atrial fibrillation, unspecified type I48.91 Active 14360836 ALLERGIES No Information ENCOUNTERS Encounter Location Date Diagnosis [facility] [id number] [place] [address] 61281- 9430 May, Urinary tract infection without hematuria, site unspecified N39.0 [facility] [id number] [place] [address] 69607- 4887 May, Bladder spasms N32.89 [facility] [id number] [place] [address] 26338- 1961 May, Primary insomnia F51.01 [facility] [id number] [place] [address] 20563- 8085 May, [facility] [id number] [place] [address] 13652- 6831 May, Primary insomnia F51.01 and Arthralgia, unspecified joint M25.50 [facility] [id number] [place] [address] 89091- 2041 May, Other chronic pain G89.29 [facility] [address] [place] [id number] May, Nephrolithiasis N20.0 ; Cataract H26.9 and Macrocytic anemia D53.9 [facility] [id number] [place] [address] 13977- 7264 May, [facility] [id number] [place] [address] 47743- 9718 Apr, [facility] [id number] [place] [address] 36835- 7805 Apr, [facility] [id number] [place] [address] 03704- 4063 Apr, Primary insomnia F51.01 [facility] [id number] [place] [address] 88094- 8073 Apr, [facility] [id number] [place] [address] 37097- 7211 March, Other chronic pain G89.29 [facility] [address] [place] [id number] March, Arthralgia, unspecified joint M25.50 ; Abnormal urine sediment R82.90 ; Venous stasis dermatitis of both lower extremities I87.2 ; Stage 4 chronic kidney disease N18.4 and Cataract of right eye, unspecified cataract type H26.9 [facility] [id number] [place] [address] 99700- 6184 March, Primary insomnia F51.01 [facility] [address] [place] [id number] March, Cervicalgia M54.2 ; Acute pain of right shoulder M25.511 and Pain of left femur M89.8X5 [facility] [id number] [place] [address] 92379- 1200 March, [facility] [id number] [place] [address] 97861- 4778 March, Other chronic pain G89.29 [facility] [id number] [place] [address] 09965- 5898 Feb, [facility] [address] [place] [id number] Feb, Leg swelling M79.89 [facility] [id number] [place] [address] 04726- 5162 Feb, Primary insomnia F51.01 [facility] [address] [place] [id number] Feb, Fever in other diseases R50.81 and Intermittent left lower quadrant abdominal pain R10.32 [facility] [id number] [place] [address] 35786- 9067 Feb, [facility] [id number] [place] [address] 77741- 0260 Feb, [facility] [id number] [place] [address] 89656- 9127 Feb, Depression, unspecified depression type F32.9 ; Hypothyroidism, unspecified type E03.9 ; Type 2 diabetes mellitus without complication, 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 [address] [address]- 4193 Feb, Other chronic pain G89.29 [facility] [id number] [id number] Jan, Other chronic pain G89.29 [facility] [address] [address]- 7051 Jan, Bladder spasms N32.89 [facility] [address] [place] [address] 30071- 5066 Jan, Bladder spasms N32.89 [facility] [id number] [place] [address] 54807- 1525 Dec, Bladder spasms N32.89 [facility] [address] [address]- 8519 Dec, Depression, unspecified depression type F32.9 [facility] [address] [address]- 8846 Dec, Via [facility] [address] [place] [id number] Dec, Hypothyroidism, unspecified type E03.9 ; Depression, unspecified depression type F32.9 ; Other chronic pain G89.29 ; Urinary retention R33.9 and Atrial fibrillation, unspecified type I48.91 [facility] [id number] [id number] Dec, [facility] [id number] [id number] Dec, Other chronic pain G89.29 [facility] [id number] [id number] Nov, [facility] [id number] [id number] Nov, Other chronic pain G89.29 [facility] [address], [place] [address]- 2631 Nov, Other chronic pain G89.29 [facility] [address] [address]- 9740 Nov, [facility] [address], [place] [address]- 6070 Nov, [facility] [address] [place] [address] 53604- 7094 Nov, Other chronic pain G89.29 [facility] [address] [place] [address] 61442- 7511 Nov, Other chronic pain G89.29 [facility] [address] [place] [address] 22950- 3393 14 Oct, 2017 [facility] [address] [place] [address] 83572- 0695 14 Oct, 2017 Other chronic pain G89.29 [facility] [address] [place] [id number] 14 Oct, 2017 Weakness R53.1 ; Macrocytic anemia D53.9 ; Discolored skin L81.9 ; Other chronic pain G89.29 ; Dysuria R30.0 and Hayes catheter in place Z92.89 [facility] [address], [place] [address]- 3189 07 Oct, 2017 Other chronic pain G89.29 [facility] [id number] [id number] Sep, [facility] [address], [place] [address]- 0812 Sep, [facility] [address] [place] [address] 09925- 1310 Sep, [facility] [id number] [place] [address] [id number] Sep, [facility] [id number] [place] [address] [id number] Sep, Other chronic pain G89.29 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 [address] [address]- 1059 Sep, [facility] [address], [place] [address]- 2098 Aug, [facility] [address] [place] [address] 49779- 5726 Aug, Other chronic pain G89.29 [facility] [address], [place] [address]- 5698 Aug, [facility] [address], [place] [address]- 5731 Aug, [facility] [id number] [id number] Aug, [facility] [address], [place] [address]- 2531 Aug, 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 [address] [address]- 4185 19 Aug, 2017 Other chronic pain G89.29 [facility] [address] [place] [address] 21921- 0764 18 Aug, 2017 [facility] [id number] [place] [address] 11217- 2155 16 Aug, 2017 [facility] [id number] [place] [address] 93978- 8169 22 Jul, 2017 Other chronic pain G89.29 [facility] [id number] [place] [address] 74687- 1326 19 Jul, 2017 [facility] [id number] [place] [address] 30199- 6425 19 Jul, 2017 Dark brown urine R82.99 [facility] [id number] [place] [address] 77312- 7953 Jul, Dark brown urine R82.99 [facility] [address] [place] [address] 15511- 0194 14 Jul, 2017 [facility] [id number] [place] [address] 33390- 5399 Jun, Other chronic pain G89.29 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 [address], [place] [address]- 3089 May, Candidiasis, intertrigo B37.2 [facility] [id number] [place] [address] 59926- 4126 May, Other chronic pain G89.29 [facility] [address] [place] [address] 40994- 0475 May, [facility] [id number] [place] [address] 59392- 4152 May, [facility] [id number] [place] [address] 51418- 2826 May, Candidiasis, intertrigo B37.2 [facility] [id number] [place] [address] 26611- 7882 May, Atrial fibrillation, unspecified type I48.91 [facility] [id number] [place] [address] 06727- 7333 May, Hypothyroidism, unspecified type E03.9 and Decreased renal function N28.9 [facility] [address] 21991- 8021 May, Type 2 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 mellitus without complication, 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 [facility] [id number] [place] [address] 63367- 1108 May, Dental examination Z01.20 [facility] [id number] [place] [address] 81359- 9927 May, Chronic kidney disease (CKD), unspecified stage N18.9 ; Type 2 diabetes mellitus without complication, unspecified usp insulin use status E11.9 ; Hypothyroidism, unspecified type E03.9 ; Depression, unspecified depression type F32.9 ; Anemia, unspecified type D64.9 and Ulcer L98.499 [facility] [id number] [place] [address] 56115- 4962 May, [facility] [id number] [place] [address] 49091- 7306 Apr, Other chronic pain G89.29 [facility] [id number] [place] [address] 45447- 7625 Apr, Other chronic pain G89.29 [facility] [id number] [place] [address] 36764- 5326 March, [facility] [id number] [place] [address] 81383- 3255 March, [facility] [address], [place] [address]- 3902 March, [facility] [id number] [place] [address] 99117- 6496 March, Other chronic pain G89.29 [facility] [id number] [place] [address] 63359- 7543 March, [facility] [id number] [place] [address] 04027- 8074 Feb, [facility] [id number] [place] [address] 56511- 5651 Feb, Type 2 diabetes mellitus without complication, unspecified usp insulin use status E11.9 ; Candidiasis, intertrigo B37.2 ; Decubitus ulcer of left buttock, unstageable L89.320 and Pressure ulcer of contiguous region involving right buttock and hip, unspecified ulcer stage L89.40 [facility] [address] [place] [address] 16381- 2476 Feb, Atrial fibrillation, unspecified type I48.91 [facility] [address] [place] [address] 87551- 9550 Feb, [facility] [address], [place] [address]- 6322 Feb, [facility] [address], [place] [address]- 4407 Feb, Other chronic pain G89.29 [facility] [address], [place] [address]- 6636 Jan, Other chronic pain G89.29 [facility] [address], [place] [address]- 4230 Dec, [facility] [address], [place] [address]- 1564 Dec, Lethargy R53.83 [facility] [address], [place] [address]- 7991 17 Dec, 2016 [facility] [address] [place] [address] 20047- 5859 Dec, Other chronic pain G89.29 [facility] [address], [place] [address]- 3013 Nov, [facility] [address], [place] [address]- 2100 Nov, [facility] [address], [place] [address]- 2956 Nov, Other chronic pain G89.29 [facility] [address] [address]- 9806 Nov, [facility] [address] [place] [address] 35961- 9065 Nov, [facility] [address], [place] [address]- 5800 Nov, [facility] [address], [place] [address]- 1794 Oct, Cough R05 [facility] [address], [place] [address]- 4168 Oct, Urinary tract infection, site not specified N39.0 [facility] [address], [place] [address]- 5175 Oct, Other chronic pain G89.29 [facility] [id number] [address]- 2441 Oct, Type 2 diabetes mellitus without complication, unspecified usp insulin use status E11.9 ; Other chronic [...] J30.89 ; Nausea R11.0 and Candidiasis B37.9 [facility] [id number] [place] [address] 23538- 1816 Oct, [facility] [address] 58059- 6730 Oct, [facility] [address] 99664- 6444 Oct, [facility] [address] 16085- 7289 Oct, Chronic kidney disease (CKD), unspecified stage N18.9 [facility] [address] 29944- 6728 Oct, [facility] [address] 79621- 4239 Sep, Other chronic pain G89.29 [facility] [address] 61643- 5626 Sep, Chronic kidney disease (CKD), unspecified stage N18.9 and Senile cataract of right eye, unspecified age-related cataract type H25.9 [facility] [id number] [place] [address] 99252- 2190 Sep, [facility] [id number] [place] [address] 97703- 4562 Sep, [facility] [address] 40650- 0130 Sep, [facility] [id number] [place] [address] 06710- 8384 Sep, [facility] [address] 21096- 8447 Sep, [place] [address] [place] [address] 16889- 0334 Aug, [facility] [id number] [place] [address] 42790- 1057 Aug, [facility] [id number] [place] [address] 97749- 2742 Aug, [facility] [id number] [place] [address] 82029- 2531 Aug, Encounter to establish care Z76.89 ; Other chronic pain G89.29 ; Chronic kidney disease (CKD), unspecified stage N18.9 ; Obstructive sleep apnea syndrome G47.33 ; Type 2 diabetes mellitus without complication, 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 ; Urinary incontinence, unspecified type R32 ; Depression, unspecified depression type F32.9 ; History of femur fracture Z87.81 ; History of fractured kneecap Z87.81 ; Hypothyroidism , unspecified type E03.9 ; Cataract H26.9 and Gastroesophageal reflux disease without esophagitis K21.9 [facility] [id number] [place] [address] 69238- 9471 Aug, [facility] [id number] [place] [address] 39291- 7641 Aug, Urinary incontinence, unspecified type R32 [facility] [address] [place] [address] 44468- 6915 Aug, [facility] [id number] [place] [address] 22546- 8395 Jul, [facility] [address] [place] [id number] Jul, Type 2 diabetes mellitus without complication, 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 [...] E03.9 and Constipation, unspecified constipation type K59.00 [facility] [id number] [place] [address] 90515- 9357 19 Jul, 2016 [facility] [facility] [address] 72500- 3959 16 Jul, [address] [id number] 14 Jul, 2016 Anemia, unspecified type D64.9 ; Acute renal failure, unspecified acute renal failure type N17.9 ; Other chronic pain G89.29 ; Obstructive sleep apnea syndrome G47.33 and Type 2 diabetes mellitus without complication, unspecified usp insulin use status E11.9 [facility] [id number] [place] [address] 49174- 6095 Jul, [facility] [id number] [place] [address] 29034- 0204 Jul, [facility] [id number] [place] [address] 21307- 2367 Jul, [facility] [id number] [place] [address] 74733- 7213 Jul, [facility] [id number] [place] [address] 40955- 0518 Jul, [facility] [id number] Jun, Other chronic pain G89.29 ; Hayes catheter in place Z92.89 ; Chronic kidney disease (CKD), unspecified stage N18.9 and Blisters of multiple sites R23.8 [facility] [id number] [place] [address] 57325- 3543 Jun, [facility] [id number] [place] [address] 76526- 9865 Jun, [facility] [id number] [address]- [address] Jun, [facility] [id number] [place] [address]- [address] Jun, [facility] [address] [facility] [id number] [address]- [address] Jun, [facility] [address] [facility] [id number] [place] [address]- [address] Jun, [facility] [address] [facility] [id number] [place] [address]- [address] Jun, [facility] [address] [facility] [id number] [place] [address]- [address] Jun, [facility] [address], [place] [address]- [address] Jun, [facility] [address], [place] [address]- 2479 Jun, [facility] [id number] [place] [address]- [address] Jun, [facility] [id number] [address]- 1704 May, [facility] [id number] [address]- 6041 May, [facility] [id number] [address]- 4485 May, Other chronic pain G89.29 [facility] [address] [place] [id number] May, [facility] Z76.89 ; Type 2 diabetes [...] 1 tablet 6h Feb, 28 days Active RESULTS No Results [...] Acute Kidney Injury 08/05/16 Hospitalization History UTI, Sepsis--[facility] Hospitalization History Chest pain/SOB/A-fib 02/2017 Hospitalization History Chest pain-[facility] 04/13/17 Hospitalization History UTI, respiratory failure, altered mental status-[facility] 09/13/17
--- OUTSIDE RECORDS SUMMARY | 2018-09-17 19:33 | XMS REPORT ---
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 Name Role Phone LATONYA KIM Unavailable PROBLEMS Type Condition ICD9-CM Code FQZ31-AQ Code Onset Dates Condition Status SNOMED Code Problem Restless leg syndrome G25.81 Active 69224719 Problem Atrial fibrillation, unspecified type I48.91 Active 11792084 Problem Perennial allergic rhinitis, unspecified allergic rhinitis trigger J30.89 Active 025296041 Problem Primary insomnia F51.01 Active 9367041 Problem Closed fracture of left patella, unspecified fracture morphology, sequela S82.002S Active 90339513 Problem Anxiety F41.9 Active 37520479 Problem Decreased renal function N28.9 Active 27793329 Problem Ulcer L98.499 Active 170918671 Problem Bladder spasms N32.89 Active 606022928 Problem Chronic fatigue R53.82 Active 43087460 Problem Cataract H26.9 Active 358398007 Problem Chronic kidney disease (CKD), unspecified stage N18.9 Active 530539250 Problem Morbid obesity due to excess calories E66.01 Active 528774917 Problem Urinary incontinence, unspecified type R32 Active 260430352 Problem Hypothyroidism, unspecified type E03.9 Active 51128712 Problem Obstructive sleep apnea syndrome G47.33 Active 05240483 Problem Type 2 diabetes mellitus without complication, unspecified residential insulin use status E11.9 Active 02158275 Problem Gastroesophageal reflux disease without esophagitis K21.9 Active 380393736 Problem Depression, unspecified depression type F32.9 Active 43804617 Problem Other chronic pain G89.29 Active 54131570 ALLERGIES No Information ENCOUNTERS Encounter Location Date Diagnosis Via [facility] [address] [place] [id number] March, Cervicalgia M54.2 ; Acute pain of right shoulder M25.511 and Pain of left femur M89.8X5 [place] [address] [address] March, [place] [address] [place] [id number] [place] [address] 17982- 2399 March, Other chronic pain G89.29 [place] [id number] [place] [address] 67688- 2361 Feb, Via [facility] [employer] [address] [place] [id number] Feb, Leg swelling M79.89 [place] [id number] [place] [address] 20077- 5394 Feb, Primary insomnia F51.01 Via [facility] [employer] [address] [place] [id number] Feb, Fever in other diseases R50.81 and Intermittent left lower quadrant abdominal pain R10.32 [place] [address] [place] [id number] [place] [address] 61109- 6859 Feb, [place] [address] [place] [id number] [place] [address] 61752- 0068 Feb, [place] [address] [place] [id number] [place] [address] 35740- 6462 Feb, Depression, unspecified depression type F32.9 ; Hypothyroidism, unspecified type E03.9 ; Type 2 diabetes mellitus without complication, unspecified residential insulin use status E11.9 and Anxiety F41.9 [place] [id number] [place] [address] 58138- 0384 Feb, Other chronic pain G89.29 [place] [address] [place] [id number] [place] [id number] Jan, Other chronic pain G89.29 [place] [address] [place] [id number] [place] [address] 07901- 9831 Jan, Bladder spasms N32.89 [place] [address] [place] [id number] [place] [address] 54348- 3020 Jan, Bladder spasms N32.89 [facility] [address], [place] [address] Dec, Bladder spasms N32.89 [facility] [address], [place] [address] Dec, Depression, unspecified depression type F32.9 [facility] [address] [address] Dec, Via [facility] [address] [place] [id number] Dec, Hypothyroidism, unspecified type E03.9 ; Depression, unspecified depression type F32.9 ; Other chronic pain G89.29 ; Urinary retention R33.9 and Atrial fibrillation, unspecified type I48.91 [facility] [address] [place] [id number] [place] [id number] Dec, [facility] [address] [place] [id number] [place] [address] [id number] Dec, Other chronic pain G89.29 [facility] [address] [place] [id number] [place] [address] [id number] Nov, [facility] [address] [place] [id number] [place] [address] [id number] Nov, Other chronic pain G89.29 [facility] [address] [address] Nov, Other chronic pain G89.29 [facility] [address], [place] [address] 1666 Nov, [facility] [address], [place] [address] 48[address] Nov, [facility] [address], [place] [address] 7[address] Nov, Other chronic pain G89.29 [facility] [address], [place] [address] 9406 Nov, Other chronic pain G89.29 [facility] [address], [place] [address] 5[address] Oct, [facility] [address] [address] Oct, Other chronic pain G89.29 [facility] [employer] [address] [place] [id number] Oct, Weakness R53.1 ; Macrocytic anemia D53.9 ; Discolored skin L81.9 ; Other chronic pain G89.29 ; Dysuria R30.0 and Hayes catheter in place Z92.89 [facility] [address] [facility] [id number] [address] Oct, Other chronic pain G89.29 [facility] [id number] [id number] Sep, [facility] [address], [place] [address] 48[address] Sep, [facility] [address], [place] [address] 3348 Sep, [facility] [address] [place] [id number] [place] [address] [id number] Sep, [facility] [address] [place] [address] [id number] [place] [address] [id number] Sep, Other chronic pain G89.29 [facility] [address] [id number] [address] 98[address] Sep, [facility] [id number] [id number] Sep, Other chronic pain G89.29 [facility] [address] [place] [id number] Sep, Chronic urinary tract infection N39.0 ; Other chronic pain G89.29 ; Chronic kidney disease (CKD), unspecified stage N18.9 ; Type 2 diabetes mellitus without complication, unspecified residential insulin use status E11.9 ; Hypothyroidism, unspecified type E03.9 ; Depression, unspecified depression type F32.9 ; Cataract H26.9 ; Obstructive sleep apnea syndrome G47.33 ; Atrial fibrillation, unspecified type I48.91 ; History of femur fracture Z87.81 and [address] catheter in place Z92.89 [facility] [address] [place] [id number] [place] [address] 56356- 9184 Sep, [facility] [address] [place] [id number] [place] [address] 48630- 0120 Aug, [facility] [address] [place] [id number] [place] [address] 36919- 7614 Aug, Other chronic pain G89.29 [facility] [address] [place] [id number] [place] [address] 73970- 1393 Aug, [facility] [address] [place] [id number] [place] [address] 17360- 8861 Aug, [facility] [address] [place] [address] [id number] [place] [address] [id number] Aug, [facility] [address] [place] [id number] [place] [address] 30269- 3559 Aug, [facility] [address] [place] [id number] [place] [address] 11133- 4617 Aug, Type 2 diabetes mellitus without complication, 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.9 [facility] [address] [place] [id number] [place] [address] 61620- 8805 Aug, Other chronic pain G89.29 [facility] [address] [place] [id number] [place] [address] 08489- 3940 Aug, [facility] [address] [place] [id number] [place] [address] 42665- 4614 Aug, [facility] [address] [place] [address] [id number] [place] [address] 16959- 5229 Jul, Other chronic pain G89.29 [facility] [address] [id number] [address] 29[address] Jul, [facility] [address], [place] [address] 4032 Jul, Dark brown urine R82.99 [facility] [id number] [place] [address] 50563- 4579 Jul, Dark brown urine R82.99 [facility] [address] [place] [id number] [place] [address] 05182- 1607 14 Jul, 2017 [facility] [address] [place] [id number] [place] [address] 63630- 7895 Jun, Other chronic pain G89.29 [place] [address] [place] [id number] [place] [address] 03996- 3493 Jun, Type 2 diabetes mellitus without complication, 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.9 [place] [address] [place] [id number] [place] [address] 83232- 2319 May, Candidiasis, intertrigo B37.2 [place] [address] [place] [id number] [place] [address] 74674- 1536 May, Other chronic pain G89.29 [place] [id number] [place] [address] 89428- 5899 May, [place] [id number] [place] [address] 11915- 7022 May, [facility] [id number] [place] [address] 32474- 9268 May, Candidiasis, intertrigo B37.2 [facility] [address] [place] [id number] [place] [address] 97846- 7147 May, Atrial fibrillation, unspecified type I48.91 [place] [address], [place] [address] 0167 May, Hypothyroidism, unspecified type E03.9 and Decreased renal function N28.9 [place] [address] [place] [id number] [address] 1604 May, Type 2 diabetes mellitus without complication, 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.9 [facility] [address], [place] [address]- 1646 May, Dental examination Z01.20 [facility] [address], [place] [address]- 0107 May, Chronic kidney disease (CKD), unspecified stage N18.9 ; Type 2 diabetes mellitus without complication, unspecified residential insulin use status E11.9 ; Hypothyroidism, unspecified type E03.9 ; Depression, unspecified depression type F32.9 ; Anemia, unspecified type D64.9 and Ulcer L98.499 [facility] [address], [place] [address]- 3328 May, [facility] [address] [place] [id number] [place] [address] 41384- 8236 Apr, Other chronic pain G89.29 [facility] [address], [place] [address]- 0976 Apr, Other chronic pain G89.29 [facility] [address] [place] [id number] [address]- 4624 March, [facility] [address], [place] [address]- 5211 March, [facility] [address], [place] [address]- 9797 March, [facility] [address], [place] [address]- 6638 March, Other chronic pain G89.29 [facility] [address], [place] [address]- 1795 March, [facility] [address], [place] [address]- 2758 Feb, [facility] [address] [place] [id number] [place] [address] 57620- 3012 Feb, Type 2 diabetes mellitus without complication, unspecified residential insulin use status E11.9 ; Candidiasis, intertrigo B37.2 ; Decubitus ulcer of left buttock, unstageable L89.320 and Pressure ulcer of contiguous region involving right buttock and hip, unspecified ulcer stage L89.40 [facility] [address] [place] [id number] [place] [address] 72797- 4705 Feb, Atrial fibrillation, unspecified type I48.91 [facility] [address] 41771- 3167 Feb, [facility] [address] 03847- 3956 Feb, [facility] [address] [place] [id number] [place] [address] 89865- 5100 Feb, Other chronic pain G89.29 [facility] [address] [place] [id number] [place] [address] 04825- 2498 Jan, Other chronic pain G89.29 [facility] [address] [place] [id number] [place] [address] 35544- 6061 Dec, [facility] [address] [place] [id number] [place] [address] 35709- 9066 Dec, Lethargy R53.83 [facility] [address] [place] [id number] [place] [address] 42187- 7037 Dec, [facility] [address] [place] [id number] [place] [address] 96641- 5991 Dec, Other chronic pain G89.29 [facility] [address] [place] [id number] [place] [address] 81368- 8013 Nov, [facility] [address] [place] [id number] [place] [address] 74285- 9536 Nov, [facility] [address] [place] [id number] [place] [address] 65176- 2905 Nov, Other chronic pain G89.29 [facility] [address], [place] [address]- 9661 Nov, [facility] [id number] [place] [address] 87173- 5671 Nov, [facility] [id number] [place] [address] 32144- 8973 Nov, [facility] [address] [place] [id number] [place] [address] 22437- 7502 Oct, Cough R05 [place] [address] [place] [id number] [place] [address] 28135- 6151 Oct, Urinary tract infection, site not specified N39.0 [place] [address] [place] [id number] [place] [address] 91789- 7198 Oct, Other chronic pain G89.29 [place] [address] [place] [id number] [place] [address] 41950- 3419 Oct, Type 2 diabetes mellitus without complication, unspecified residential insulin use status E11.9 ; Other chronic [...] J30.89 ; Nausea R11.0 and Candidiasis B37.9 [place] [id number] [place] [address] 41375- 0788 Oct, [facility] [id number] [place] [address] 14411- 1449 Oct, [place] [id number] [place] [address] 89972- 2587 Oct, [facility] [address], [place] [address]- 6774 Oct, Chronic kidney disease (CKD), unspecified stage N18.9 [facility] [address], [place] [address]- 2935 Oct, [facility] [address], [place] [address]- 9432 Sep, Other chronic pain G89.29 [facility] [address], [place] [address]- 7461 Sep, Chronic kidney disease (CKD), unspecified stage N18.9 and Senile cataract of right eye, unspecified age-related cataract type H25.9 [facility] [address], [place] [address]- 8121 Sep, [facility] [address] [place] [id number] [place] [address] 87897- 8763 Sep, [facility] [address], [place] [address]- 2323 Sep, [facility] [address] [id number] [address]- 3513 Sep, [facility] [address], [place] [address]- 4680 Sep, [facility] [address], [place] [address]- 8368 Aug, [facility] [address], [place] [address]- 8904 Aug, [facility] [address] [place] [id number] [place] [address] 54799- 1037 Aug, [facility] [address], [place] [address]- 0139 Aug, Encounter to establish care Z76.89 ; Other chronic pain G89.29 ; Chronic kidney disease (CKD), unspecified stage N18.9 ; Obstructive sleep apnea syndrome G47.33 ; Type 2 diabetes mellitus without complication, unspecified residential insulin use status E11.9 ; Urinary incontinence, unspecified type R32 ; Depression, unspecified depression type F32.9 ; History of femur fracture Z87.81 ; History of fractured kneecap Z87.81 ; Hypothyroidism , unspecified type E03.9 ; Cataract H26.9 and Gastroesophageal reflux disease without esophagitis K21.9 [place] [address] [place] [id number] [place] [address] 63603- 2167 Aug, [place] [address] [place] [id number] [place] [address] 33012- 9659 Aug, Urinary incontinence, unspecified type R32 [place] [id number] [place] [address] 04512- 4574 Aug, [place] [address] [place] [id number] [place] [address] 46229- 0966 Jul, [facility] [address] [id number] Jul, Type 2 diabetes mellitus without complication, unspecified residential insulin use status E11.9 ; Chronic kidney [...] Constipation, unspecified constipation type K59.00 [place] [id number] [place] [address] 18919- 9610 Jul, [place] [id number] [place] [address] 24394- 4173 Jul, [facility] [address] [place] [id number] Jul, Anemia, unspecified type D64.9 ; Acute renal failure, unspecified acute renal failure type N17.9 ; Other chronic pain G89.29 ; Obstructive sleep apnea syndrome G47.33 and Type 2 diabetes mellitus without complication, unspecified residential insulin use status E11.9 [facility] [address], [place] [address]- 2774 Jul, [facility] [address] [place] [address] 11102- 3275 Jul, [facility] [address] [id number] [place] [address] 10015- 4450 Jul, [facility] [address] [id number] [place] [address] 13913- 7418 Jul, [facility] [address] [place] [id number] [place] [address] 91288- 3376 Jul, [facility] [address] [place] [id number] Jun, Other chronic pain G89.29 ; Hayes catheter in place Z92.89 ; Chronic kidney disease (CKD), unspecified stage N18.9 and Blisters of multiple sites R23.8 [facility] [id number] [place] [address] 72291- 0235 Jun, [facility] [address] [place] [address] 44454- 0487 Jun, [facility] [address] [place] [address] 08736- 1180 Jun, [facility] [address] [place] [address] 81023- 5345 Jun, [facility] [address] [id number] [place] [address] 92529- 9786 Jun, [facility] [address], [place] [address]- 2603 Jun, [facility] [address] [id number] [place] [address] 34439- 8466 Jun, [facility] [address] [facility] [id number] [address]- 8108 Jun, [facility] [id number] [address]- 0372 Jun, [facility] [id number], [place] [address]- 2246 Jun, [facility] [address], [place] [address]- 7469 Jun, [facility] [id number], [place] [address]- 5681 May, [facility] [id number] [address]- 5286 May, [facility] [id number] [address]- 0797 May, Other chronic pain G89.29 [facility] [address] [place] [id number] May, Encounter to establish care Z76.89 ; Type 2 diabetes mellitus without complication, unspecified residential insulin use status E11.9 ; Hypothyroidism, unspecified [...] Assessed REASON FOR VISIT Controlled Med Refill 09/13/2017 PLAN OF CARE VITAL SIGNS MEDICATIONS Medication Instructions Dosage Frequency Start Date End Date Duration Status Oxycodone-Acetaminophen 10-325 MG Orally 4 times a day 1 tablet as needed 6h Aug, 28 days Active RESULTS No Results PROCEDURES [...] Acute Kidney Injury 08/05/16 Hospitalization History UTI, Sepsis--[facility] Hospitalization History Chest pain/SOB/A-fib 02/2017 Hospitalization History Chest pain-[facility] 04/13/17 Hospitalization History UTI, respiratory failure, altered mental status-[facility] 09/13/17
--- OUTSIDE RECORDS SUMMARY | 2018-09-17 19:33 | XMS REPORT ---
Author Author LATONYA KIM [facility] Address [address] [place] [address] Care Team Providers Care Hash Slinger Name Role Phone LATONYA KIM Unavailable PROBLEMS Type Condition ICD9-CM Code PYC04-NA Code Onset Dates Condition Status SNOMED Code Problem Restless leg syndrome G25.81 Active 16982669 Problem Atrial fibrillation, unspecified type I48.91 Active 30111397 Problem Perennial allergic rhinitis, unspecified allergic rhinitis trigger J30.89 Active 260586535 Problem Primary insomnia F51.01 Active 9617426 Problem Closed fracture of left patella, unspecified fracture morphology, sequela S82.002S Active 87379205 Problem Anxiety F41.9 Active 57304013 Problem Decreased renal function N28.9 Active 20217905 Problem Ulcer L98.499 Active 314334784 Problem Bladder spasms N32.89 Active 808731656 Problem Chronic fatigue R53.82 Active 39188109 Problem Cataract H26.9 Active 675420052 Problem Chronic kidney disease (CKD), unspecified stage N18.9 Active 968654384 Problem Morbid obesity due to excess calories E66.01 Active 999943759 Problem Urinary incontinence, unspecified type R32 Active 085285286 Problem Hypothyroidism, unspecified type E03.9 Active 37329816 Problem Obstructive sleep apnea syndrome G47.33 Active 93609297 Problem Type 2 diabetes mellitus without complication, unspecified residential insulin use status E11.9 Active 79090321 Problem Gastroesophageal reflux disease without esophagitis K21.9 Active 240402377 Problem Depression, unspecified depression type F32.9 Active 18215251 Problem Other chronic pain G89.29 Active 83043196 ALLERGIES No Information ENCOUNTERS Encounter Location Date Diagnosis Via [facility] [address] [place] [id number] March, Cervicalgia M54.2 ; Acute pain of right shoulder M25.511 and Pain of left femur M89.8X5 [facility] [address] [address] March, [facility] [id number] [place] [address] 62795- 9774 March, Other chronic pain G89.29 [facility] [address] [place] [address] 29402- 1593 Feb, [facility] [address] [place] [id number] Feb, Leg swelling M79.89 [facility] [address] [place] [address] 38196- 3799 Feb, Primary insomnia F51.01 [facility] [address] [place] [id number] Feb, Fever in other diseases R50.81 and Intermittent left lower quadrant abdominal pain R10.32 [facility] [id number] [place] [address] 32457- 5911 Feb, [facility] [id number] [place] [address] 57081- 6750 Feb, [facility] [id number] [place] [address] 22937- 3690 Feb, Depression, unspecified depression type F32.9 ; Hypothyroidism, unspecified type E03.9 ; Type 2 diabetes mellitus without complication, unspecified residential insulin use status E11.9 and Anxiety F41.9 [facility] [address] [place] [address] 01191- 7445 Feb, Other chronic pain G89.29 [place] [place] [address] [id number] [place] [id number] Jan, Other chronic pain G89.29 [facility] [id number] [place] [address] 23544- 2301 Jan, Bladder spasms N32.89 [facility] [id number] [place] [address] 39387- 9728 Jan, Bladder spasms N32.89 [facility] [address] [address] 00[address] Dec, Bladder spasms N32.89 [facility] [address] [address] 00[address] Dec, Depression, unspecified depression type F32.9 [facility] [address] [address] Dec, [facility] [address] [place] [id number] Dec, Hypothyroidism, unspecified type E03.9 ; Depression, unspecified depression type F32.9 ; Other chronic pain G89.29 ; Urinary retention R33.9 and Atrial fibrillation, unspecified type I48.91 [facility] [id number] [place] [address] [id number] Dec, [facility] [id number] [place] [address] [id number] Dec, Other chronic pain G89.29 [facility] [id number] [place] [address] [id number] Nov, [facility] [id number] [place] [address] [id number] Nov, Other chronic pain G89.29 [facility] [address] [address] Nov, Other chronic pain G89.29 [facility] [address] [address] 1706 Nov, [facility] [address] [address] 8926 Nov, [facility] [address] [address] 3046 Nov, Other chronic pain G89.29 [facility] [address] [address] 4720 Nov, Other chronic pain G89.29 [facility] [address] [address] 4568 Oct, [facility] [address] [address] Oct, Other chronic pain G89.29 [facility] [address] [place] [id number] Oct, Weakness R53.1 ; Macrocytic anemia D53.9 ; Discolored skin L81.9 ; Other chronic pain G89.29 ; Dysuria R30.0 and [address] catheter [address] place Z92.89 [facility] [address] [facility] [id number] [address] Oct, Other chronic pain G89.29 [facility] [id number] [place] [id number] Sep, [facility] [address] [address] 12[address] Sep, [facility] [address] [address] 0175 Sep, [facility] [id number] [place] [address] [id number] Sep, [facility] [id number] [place] [address] [id number] Sep, Other chronic pain G89.29 [facility] [address] [place] [id number] [address] 0[address] Sep, [facility] [id number] [place] [address] Sep, Other chronic pain G89.29 [email or web address] [address] [place] [id number] Sep, Chronic urinary tract infection N39.0 ; [...] Z87.81 and Hayes catheter in place Z92.89 [facility] [id number] [place] [address] 77990- 4317 Sep, [facility] [id number] [place] [address] 06934- 1479 Aug, [facility] [id number] [place] [address] 97953- 0860 Aug, Other chronic pain G89.29 [facility] [id number] [place] [address] 88117- 6983 Aug, [facility] [id number] [place] [address] 06423- 2579 Aug, [facility] [address] [address] [id number] [place] [address] [id number] Aug, [facility] [id number] [place] [address] 63767- 9847 Aug, [facility] [id number] [place] [address] 80039- 7722 Aug, 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, 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 [facility] [id number] [place] [address] 81907- 9726 Aug, Other chronic pain G89.29 [facility] [id number] [place] [address] 89140- 1440 Aug, [facility] [id number] [place] [address] 65957- 2450 Aug, [facility] [id number] [place] [address] 88697- 5271 Jul, Other chronic pain G89.29 [facility] [id number] [address] 4634 Jul, [facility] [address] [address] 2865 Jul, Dark brown urine R82.99 [facility] [address] [place] [address] 01533- 0207 Jul, Dark brown urine R82.99 [facility] [id number] [place] [address] 69303- 3083 14 Jul, 2017 [facility] [address] [id number] [place] [address] 48117- 0883 Jun, Other chronic pain G89.29 [facility] [place] [address] [id number] [place] [address] 71808- 4653 Jun, 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, 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 [facility] [address] [id number] [place] [address] 11384- 7972 May, Candidiasis, intertrigo B37.2 [facility] [address] [id number] [place] [address] 83477- 6115 May, Other chronic pain G89.29 [facility] [address] [place] [address] 85759- 3153 May, [facility] [address] [place] [address] 65989- 9609 May, [facility] [address] [place] [address] 88241- 1319 May, Candidiasis, intertrigo B37.2 [facility] [address] [place] [id number] [place] [address] 52362- 9588 May, Atrial fibrillation, unspecified type I48.91 [facility] [address] [address] 1177 May, Hypothyroidism, unspecified type E03.9 and Decreased renal function N28.9 [facility] [address] [id number] [address]- 4476 May, 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, 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 [facility] [address] [address]- 0011 May, Dental examination Z01.20 [facility] [address] [address]- 4918 May, Chronic kidney disease (CKD), unspecified stage N18.9 ; Type 2 diabetes mellitus without complication, unspecified residential insulin use status E11.9 ; Hypothyroidism, unspecified type E03.9 ; Depression, unspecified depression type F32.9 ; Anemia, unspecified type D64.9 and Ulcer L98.499 [facility] [address] [address]- 7457 May, [facility] [address] [id number] [place] [address] 93564- 6683 Apr, Other chronic pain G89.29 [facility] [address] [address]- 5006 Apr, Other chronic pain G89.29 [facility] [id number] [address]- 0192 March, [facility] [address] [address]- 6283 March, [facility] [address] [address]- 7423 March, [facility] [address] [address]- 5443 March, Other chronic pain G89.29 [facility] [address] [address]- 6880 March, [facility] [address] [address]- 2420 Feb, [facility] [id number] [place] [address] 16526- 5941 Feb, Type 2 diabetes mellitus without complication, unspecified residential insulin use status E11.9 ; Candidiasis, intertrigo B37.2 ; Decubitus ulcer of left buttock, unstageable L89.320 and Pressure ulcer of contiguous region involving right buttock and hip, unspecified ulcer stage L89.40 [facility] [address] [place] [id number] [place] [address] 01590- 1477 Feb, Atrial fibrillation, unspecified type I48.91 [facility] [address] 29894- 8587 Feb, [facility] [address] 70510- 6509 Feb, [facility] [address] [place] [id number] [place] [address] 89502- 5941 Feb, Other chronic pain G89.29 [facility] [address] [place] [id number] [place] [address] 57617- 4988 Jan, Other chronic pain G89.29 [facility] [address] [place] [id number] [place] [address] 88115- 4976 Dec, [facility] [address] [place] [id number] [place] [address] 58467- 5628 Dec, Lethargy R53.83 [facility] [address] [place] [id number] [place] [address] 80463- 1956 Dec, [facility] [address] [place] [id number] [place] [address] 20935- 3976 Dec, Other chronic pain G89.29 [facility] [address] [place] [id number] [place] [address] 22084- 9973 Nov, [facility] [address] [place] [id number] [place] [address] 51396- 9228 Nov, [facility] [address] [place] [id number] [place] [address] 52585- 2235 Nov, Other chronic pain G89.29 [facility] [address] [address]- 9482 Nov, [facility] [address] [place] [address] 09871- 1578 Nov, [facility] [address] [place] [address] 04714- 6551 Nov, [facility] [address] [place] [id number] [place] [address] 55133- 6480 Oct, Cough R05 [facility] [address] [place] [id number] [place] [address] 43457- 8527 Oct, Urinary tract infection, site not specified N39.0 [facility] [address] [place] [id number] [place] [address] 37681- 0254 Oct, Other chronic pain G89.29 [facility] [address] [place] [id number] [place] [address] 97383- 5827 Oct, Type 2 diabetes mellitus without complication, [...] J30.89 ; Nausea R11.0 and Candidiasis B37.9 [facility] [address] [place] [address] 87251- 1811 Oct, [facility] [address] [place] [address] 45026- 7561 Oct, [facility] [address] [place] [address] 53803- 1078 Oct, [facility] [address] [address]- 4247 Oct, Chronic kidney disease (CKD), unspecified stage N18.9 [facility] [address] [address]- 1709 Oct, [facility] [address] [address]- 0104 Sep, Other chronic pain G89.29 [facility] [address] [address]- 8032 Sep, Chronic kidney disease (CKD), unspecified stage N18.9 and Senile cataract of right eye, unspecified age-related cataract type H25.9 [facility] [address] [address]- 4007 Sep, [facility] [address] [id number] [place] [address] 38034- 4638 Sep, [facility] [address] [address]- 3747 Sep, [facility] [address] [address] [address]- 8666 Sep, [facility] [address] [address]- 0081 Sep, [facility] [address] [address]- 9563 Aug, [facility] [address] [address]- 8268 Aug, [facility] [address] [id number] [place] [address] 53706- 6413 Aug, [facility] [address] [address]- 3833 Aug, Encounter to establish care Z76.89 ; [...] and Gastroesophageal reflux disease without esophagitis K21.9 [facility] [address] [place] [id number] [place] [address] 53071- 5053 Aug, [facility] [address] [place] [id number] [place] [address] 35629- 7485 Aug, Urinary incontinence, unspecified type R32 [place] [id number] [place] [address] 90280- 9726 Aug, [facility] [place] [address] [place] [id number] [place] [address] 59979- 9834 Jul, [facility] [address] [id number] Jul, Type 2 diabetes mellitus without complication, [...] E03.9 and Constipation, unspecified constipation type K59.00 [place] [id number] [place] [address] 13609- 0927 Jul, [place] [address] [place] [address] 64163- 1942 Jul, [facility] [address] [place] [id number] Jul, Anemia, unspecified type D64.9 ; Acute renal failure, unspecified acute renal failure type N17.9 ; Other chronic pain G89.29 ; Obstructive sleep apnea syndrome G47.33 and Type 2 diabetes mellitus without complication, unspecified residential insulin use status E11.9 [facility] [address] [address]- 0547 Jul, [facility] [address] [place] [address] 57601- 3531 Jul, [facility] [id number] [place] [address] 87171- 0122 Jul, [facility] [address] [id number] [place] [address] 66993- 9416 Jul, [facility] [address] [id number] [place] [address] 94112- 0169 Jul, [facility] [address] [place] [id number] Jun, Other chronic pain G89.29 ; Hayes catheter in place Z92.89 ; Chronic kidney disease (CKD), unspecified stage N18.9 and Blisters of multiple sites R23.8 [facility] [address] [place] [address] 64021- 6468 Jun, [facility] [address] [place] [address] 43205- 2300 Jun, [facility] [address] [place] [address] 84041- 1068 Jun, [facility] [address] [place] [address] 60447- 6439 Jun, [facility] [id number] [place] [address] 68613- 0798 Jun, [facility] [address] [address]- 3210 Jun, [facility] [id number] [place] [address] 66622- 8058 Jun, [facility] [address] [facility] [id number] [address]- 0274 Jun, [facility] [id number] [address]- 9306 Jun, [facility] [id number] [address]- 6957 Jun, [facility] [id number] [address]- 3449 Jun, [facility] [id number] [address]- 5544 May, [facility] [id number] [address]- 6267 May, [facility] [id number] [address]- 0773 May, Other chronic pain G89.29 [facility] [address] [place] [id number] May, Encounter to establish care Z76.89 ; [...] SOCIAL HISTORY Never Assessed REASON FOR VISIT PLAN OF CARE VITAL SIGNS MEDICATIONS Unknown [...] Acute Kidney Injury 08/05/16 Hospitalization History UTI, Sepsis--[facility] Hospitalization History Chest pain/SOB/A-fib 02/2017 Hospitalization History Chest pain-[facility] 04/13/17 Hospitalization History UTI, respiratory failure, altered mental status-[facility] 09/13/17
--- OUTSIDE RECORDS SUMMARY | 2018-09-17 19:34 | XMS REPORT ---
Author Author LATONYA KIM [facility] Address [address] [place] [address] Care Team Providers Care Day Care Director Name Role Phone LATONYA KIM Unavailable PROBLEMS Type Condition ICD9-CM Code QFF56-DE Code Onset Dates Condition Status SNOMED Code Problem Restless leg syndrome G25.81 Active 90253927 Problem Atrial fibrillation, unspecified type I48.91 Active 12316925 Problem Perennial allergic rhinitis, unspecified allergic rhinitis trigger J30.89 Active 143481808 Problem Primary insomnia F51.01 Active 9003227 Problem Closed fracture of left patella, unspecified fracture morphology, sequela S82.002S Active 21320886 Problem Anxiety F41.9 Active 15386238 Problem Decreased renal function N28.9 Active 17481830 Problem Ulcer L98.499 Active 310706892 Problem Bladder spasms N32.89 Active 500813338 Problem Chronic fatigue R53.82 Active 93240435 Problem Cataract H26.9 Active 667417477 Problem Chronic kidney disease (CKD), unspecified stage N18.9 Active 638416624 Problem Morbid obesity due to excess calories E66.01 Active 178367099 Problem Urinary incontinence, unspecified type R32 Active 647655143 Problem Hypothyroidism, unspecified type E03.9 Active 50358182 Problem Obstructive sleep apnea syndrome G47.33 Active 84933331 Problem Type 2 diabetes mellitus without complication, unspecified penitentiary insulin use status E11.9 Active 35220991 Problem Gastroesophageal reflux disease without esophagitis K21.9 Active 134197481 Problem Depression, unspecified depression type F32.9 Active 48234077 Problem Other chronic pain G89.29 Active 08977934 ALLERGIES No Information ENCOUNTERS Encounter Location Date Diagnosis [facility] [address] [facility] [id number] [place] [address] March, Primary insomnia F51.01 Via [facility] [place] [address] [place] [id number] March, Cervicalgia M54.2 ; Acute pain of right shoulder M25.511 and Pain of left femur M89.8X5 [place] [id number] [place] [address] 75344- 2464 March, [place] [place] [id number] [place] [address] 00174- 7093 March, Other chronic pain G89.29 [place] [id number] [place] [address] 44463- 9656 Feb, Via [facility] [employer] [address] [place] [id number] Feb, Leg swelling M79.89 [place] [id number] [place] [address] 94812- 8905 Feb, Primary insomnia F51.01 Via [facility] [employer] [address] [place] [id number] Feb, Fever in other diseases R50.81 and Intermittent left lower quadrant abdominal pain R10.32 [place] [id number] [place] [address] 79907- 3010 Feb, [place] [id number] [place] [address] 89012- 4814 Feb, [place] [place] [id number] [place] [address] 94628- 4145 Feb, Depression, unspecified depression type F32.9 ; Hypothyroidism, unspecified type E03.9 ; Type 2 diabetes mellitus without complication, unspecified chest pain coordinator insulin use status E11.9 and Anxiety F41.9 [place] [id number] [place] [address] 04715- 7074 Feb, Other chronic pain G89.29 [place] [id number] [place] [id number] Jan, Other chronic pain G89.29 [place] [id number] [place] [address] 93985- 2545 Jan, Bladder spasms N32.89 [facility] [address] [address] Jan, Bladder spasms N32.89 [facility] [address], [place] [address] Dec, Bladder spasms N32.89 [facility] [address], [place] [address] Dec, Depression, unspecified depression type F32.9 [facility] [id number], [place] [address] Dec, Via [facility], [place] [address] [facility] [place] [id number] Dec, Hypothyroidism, unspecified type E03.9 ; Depression, unspecified depression type F32.9 ; Other chronic pain G89.29 ; Urinary retention R33.9 and Atrial fibrillation, unspecified type I48.91 [facility] [id number] [id number] Dec, [facility] [id number] [place] [id number] Dec, Other chronic pain G89.29 [facility] [id number] [id number] Nov, [facility] [id number] [id number] Nov, Other chronic pain G89.29 [facility] [id number], [place] [address] 2016 Nov, Other chronic pain G89.29 [facility] [address], [place] [address] 6[address] Nov, [facility] [address] [address] Nov, [facility] [id number] 5370 Nov, Other chronic pain G89.29 [facility] [address], [place] [address] 3861 Nov, Other chronic pain G89.29 [facility] [address] [address] 14 Oct, 2017 [facility] [address], [place] [address] 0383 Oct, Other chronic pain G89.29 [address] [employer] [address] [place] [id number] Oct, Weakness R53.1 ; Macrocytic anemia D53.9 ; Discolored skin L81.9 ; Other chronic pain G89.29 ; Dysuria R30.0 and Hayes catheter in place Z92.89 [facility] [address], [place] [address] 5[address] Oct, Other chronic pain G89.29 [facility] [id number] [place] [id number] Sep, [facility] [address], [place] [address] 2[address] Sep, [facility] [address] [place] [address] 64579- 6293 Sep, [facility] [address] [address] Sep, [facility] [id number] [place] [id number] Sep, Other chronic pain G89.29 [facility] [address] 0661 Sep, [facility] [id number] [place] [address] [id number] Sep, Other chronic pain G89.29 [address] [employer] [facility] [address] [place] [id number] Sep, Chronic urinary tract infection N39.0 ; [...] Z87.81 and Hayes catheter in place Z92.89 [facility] [id number] [place] [address] 52350- 1482 Sep, [facility] [id number] [place] [address] 53919- 7764 Aug, [facility] [address] 19071- 2555 Aug, Other chronic pain G89.29 [facility] [address] 97166- 8433 Aug, [facility] [id number] [place] [address] 43666- 0824 Aug, [facility] [address] [id number] Aug, [facility] [id number] [place] [address] 92652- 1938 Aug, [facility] [id number] [place] [address] 95896- 3257 Aug, Type 2 diabetes mellitus without complication, unspecified chest pain coordinator insulin use status E11.9 [facility] [id number] [place] [address] 01390- 6167 Aug, Other chronic pain G89.29 [facility] [id number] [place] [address] 55946- 2280 Aug, [facility] [id number] [place] [address] 40545- 2999 Aug, [facility] [address] 47563- 4335 Jul, Other chronic pain G89.29 [facility] [address], [place] [address] 2772 Jul, [facility] [address] [place] [address] 51537- 7253 Jul, Dark brown urine R82.99 [facility] [address] [place] [address] 10391- 6064 Jul, Dark brown urine R82.99 [facility] [address] [place] [address] 37104- 0363 Jul, [facility] [address] [place] [address] 11224- 4655 Jun, Other chronic pain G89.29 [facility] [address] [place] [address] 33598- 2168 Jun, Type 2 diabetes mellitus without complication, unspecified penitentiary insulin use status E11.9 [facility] [address] [place] [address] 61076- 2986 May, Candidiasis, intertrigo B37.2 [place] [address] [place] [address] 34228- 1590 May, Other chronic pain G89.29 [facility] [address], [place] [address]- 0683 May, [facility] [id number] [place] [address] 87354- 8403 May, [facility] [address] [place] [address] 62493- 9822 May, Candidiasis, intertrigo B37.2 [facility] [address] [place] [address] 82392- 8484 May, Atrial fibrillation, unspecified type I48.91 [facility] [id number] [place] [address] 13179- 8505 May, Hypothyroidism, unspecified type E03.9 and Decreased renal function N28.9 [facility] [id number] [place] [address] 25965- 1429 May, Type 2 diabetes mellitus without complication, unspecified penitentiary insulin use status E11.9 [facility] [id number] [place] [address] 43309- 7854 May, Dental examination Z01.20 [place] [id number] [place] [address] 50899- 8908 May, Chronic kidney disease (CKD), unspecified stage N18.9 ; Type 2 diabetes mellitus without complication, unspecified chest pain coordinator insulin use status E11.9 ; Hypothyroidism, unspecified type E03.9 ; Depression, unspecified depression type F32.9 ; Anemia, unspecified type D64.9 and Ulcer L98.499 [place] [id number] [place] [address] 13707- 4336 May, [place] [id number] [place] [address] 60273- 7471 Apr, Other chronic pain G89.29 [place] [id number] [place] [address] 83132- 0328 Apr, Other chronic pain G89.29 [place] [id number] [place] [address] 41991- 7612 March, [place] [id number] [place] [address] 23533- 2310 March, [facility] [id number] [place] [address] 70380- 9171 March, [place] [id number] [place] [address] 24839- 4302 March, Other chronic pain G89.29 [place] [id number] [place] [address] 42374- 9954 March, [place] [address] [address]- 3789 Feb, [facility] [id number] [place] [address] 53061- 8540 Feb, Type 2 diabetes mellitus without complication, unspecified penitentiary insulin use status E11.9 ; Candidiasis, intertrigo B37.2 ; Decubitus ulcer of left buttock, unstageable L89.320 and Pressure ulcer of contiguous region involving right buttock and hip, unspecified ulcer stage L89.40 [facility] [id number] [place] [address] 98761- 7696 Feb, Atrial fibrillation, unspecified type I48.91 [facility] [id number] [place] [address] 62385- 8891 Feb, [facility] [id number] [place] [address] 18201- 6149 Feb, [facility] [id number] [place] [address] 01276- 0705 Feb, Other chronic pain G89.29 [facility] [id number] [place] [address] 01786- 9963 Jan, Other chronic pain G89.29 [facility] [id number] [place] [address] 81493- 9982 Dec, [facility] [address] [place] [address] 70369- 1196 Dec, Lethargy R53.83 [facility] [address] [place] [address] 87907- 1056 Dec, [facility] [id number] [place] [address] 93362- 3471 Dec, Other chronic pain G89.29 [facility] [address] [place] [address] 35847- 1012 Nov, [facility] [id number] [address] 1986 Nov, [facility] [address] [place] [address] 88773- 6797 Nov, Other chronic pain G89.29 [facility] [address] [place] [address] 84700- 5910 Nov, [facility] [id number] [place] [address] 66892- 7239 Nov, [facility] [id number] [place] [address] 37376- 8512 Nov, [place] [id number] [place] [address] 56174- 5111 Oct, Cough R05 [place] [id number] [place] [address] 44645- 9372 Oct, Urinary tract infection, site not specified N39.0 [place] [id number] [place] [address] 22825- 2455 Oct, Other chronic pain G89.29 [place] [address] [place] [address] 88913- 5775 Oct, Type 2 diabetes mellitus without complication, unspecified chest pain coordinator insulin use status E11.9 ; Other chronic [...] J30.89 ; Nausea R11.0 and Candidiasis B37.9 [place] [address], [place] [address]- 5627 Oct, [place] [address] [place] [address] 14793- 7251 Oct, [facility] [id number] [place] [address]- 3720 Oct, [facility] [address] [place] [address]- 2927 Oct, Chronic kidney disease (CKD), unspecified stage N18.9 [facility] [id number] [place] [address], [place] [address]- 1050 Oct, [facility] [address] [place] [address]- 8252 Sep, Other chronic pain G89.29 [facility] [id number] [place] [address], [place] [address]- 2373 Sep, Chronic kidney disease (CKD), unspecified stage N18.9 and Senile cataract of right eye, unspecified age-related cataract type H25.9 [facility] [id number] [place] [address]- 2688 Sep, [facility] [address] [place] [address]- 5376 Sep, [facility] [address], [place] [address]- 4608 Sep, [facility] [address], [place] [address]- 6692 Sep, [facility] [address], [place] [address]- 9349 Sep, [facility] [address], [place] [address]- 7455 Aug, [facility] [id number] [place] [address]- 4587 Aug, [facility] [address] 2610 Aug, [facility] [address], [place] [address]- 5308 18 Aug, 2016 Encounter to establish care Z76.89 ; Other chronic pain G89.29 ; Chronic kidney disease (CKD), unspecified stage N18.9 ; Obstructive sleep apnea syndrome G47.33 ; Type 2 diabetes mellitus without complication, unspecified penitentiary insulin use status E11.9 ; Urinary incontinence, unspecified type R32 ; Depression, unspecified depression type F32.9 ; History of femur fracture Z87.81 ; History of fractured kneecap Z87.81 ; Hypothyroidism , unspecified type E03.9 ; Cataract H26.9 and Gastroesophageal reflux disease without esophagitis K21.9 [place] [id number] [place] [address] 78171- 4337 Aug, [place] [id number] [place] [address] 69306- 9528 Aug, Urinary incontinence, unspecified type R32 [place] [id number] [place] [address] 14593- 9115 Aug, [place] [id number] [place] [address] 97626- 2720 Jul, [facility] [address] [place] [id number] Jul, Type 2 diabetes mellitus without complication, unspecified chest pain coordinator insulin use status E11.9 ; Chronic kidney [...] E03.9 and Constipation, unspecified constipation type K59.00 [place] [id number] [place] [address] 57106- 7049 Jul, [place] [id number] [place] [address] 58527- 8676 Jul, [facility] [address] [place] [id number] 14 Jul, 2016 Anemia, unspecified type D64.9 ; Acute renal failure, unspecified acute renal failure type N17.9 ; Other chronic pain G89.29 ; Obstructive sleep apnea syndrome G47.33 and Type 2 diabetes mellitus without complication, unspecified penitentiary insulin use status E11.9 [facility] [address], [place] [address]- 6669 Jul, [facility] [address], [place] [address]- 8432 Jul, [facility] [id number] [place] [address] 68678- 6950 Jul, [facility] [id number] [place] [address] 55905- 2823 Jul, [facility] [id number] [place] [address] 87351- 9902 Jul, [facility] [address] [place] [id number] Jun, Other chronic pain G89.29 ; Hayes catheter in place Z92.89 ; Chronic kidney disease (CKD), unspecified stage N18.9 and Blisters of multiple sites R23.8 [facility] [address], [place] [address]- 4494 Jun, [facility] [address], [place] [address]- 2800 Jun, [facility] [address], [place] [address]- 1467 Jun, [facility] [id number], [place] [address]- 9966 Jun, [facility] [address], [place] [address]- 4521 Jun, [facility] [id number] [place] [address] 63849- 5146 Jun, [facility] [id number], [place] [address]- 4874 Jun, [facility] [id number], [place] [address]- 3722 Jun, [facility] [id number], [place] [address]- 4355 Jun, [facility] [address], [place] [address]- 5734 Jun, [facility] [id number], [place] [address]- 7217 Jun, [facility] [id number], [place] [address]- 9911 May, [facility] [id number], [place] [address]- 2902 May, [facility] [id number], [place] [address]- 5191 May, Other chronic pain G89.29 [facility] [address] [place] [id number] May, Encounter to establish care Z76.89 ; [...] SOCIAL HISTORY Never Assessed REASON FOR VISIT Refill request PLAN OF CARE VITAL SIGNS MEDICATIONS Medication Instructions Dosage Frequency Start Date End Date Duration Status Victoza 18 MG/3ML Subcutaneous Once a day INJECT 1.8 MG 24h 90 days Active RESULTS No Results PROCEDURES [...] Acute Kidney Injury 08/05/16 Hospitalization History UTI, Sepsis--[facility] Hospitalization History Chest pain/SOB/A-fib 02/2017 Hospitalization History Chest pain-[facility] 04/13/17 Hospitalization History UTI, respiratory failure, altered mental status-[facility] 09/13/17
--- OUTSIDE RECORDS SUMMARY | 2018-09-17 19:34 | XMS REPORT ---
Author Author LATONYA KIM [facility] Address [address] [place] [address] Care Team Providers Care Classification Officer Name Role Phone LATONYA KIM Unavailable PROBLEMS Type Condition ICD9-CM Code OIM10-UT Code Onset Dates Condition Status SNOMED Code Problem Ulcer L98.499 Active 625741169 Problem Chronic fatigue R53.82 Active 48111733 Problem Decreased renal function N28.9 Active 24837629 Problem Nephrolithiasis N20.0 Active 87565172 Problem Chronic kidney disease (CKD), unspecified stage N18.9 Active 190505581 Problem Venous stasis dermatitis of both lower extremities I87.2 Active 97787264 Problem Urinary incontinence, unspecified type R32 Active 679595416 Problem Morbid obesity due to excess calories E66.01 Active 907820569 Problem Anxiety F41.9 Active 99808887 Problem Bladder spasms N32.89 Active 042945159 Problem Stage 4 chronic kidney disease N18.4 Active 217732338 Problem Primary insomnia F51.01 Active 8120645 Problem Hypothyroidism, unspecified type E03.9 Active 44401844 Problem Cataract H26.9 Active 494712011 Problem Type 2 diabetes mellitus without complication, unspecified parts counterman insulin use status E11.9 Active 30368763 Problem Depression, unspecified depression type F32.9 Active 55932812 Problem Other chronic pain G89.29 Active 28992340 Problem Perennial allergic rhinitis, unspecified allergic rhinitis trigger J30.89 Active 239595655 Problem Obstructive sleep apnea syndrome G47.33 Active 80748924 Problem Restless leg syndrome G25.81 Active 05669380 Problem Closed fracture of left patella, unspecified fracture morphology, sequela S82.002S Active 99958873 Problem Gastroesophageal reflux disease without esophagitis K21.9 Active 716107659 Problem Atrial fibrillation, unspecified type I48.91 Active 11942675 ALLERGIES No Information ENCOUNTERS Encounter Location Date Diagnosis [facility] [id number] [place] [address] 14239- 2703 May, Primary insomnia F51.01 [facility] [id number] [place] [address] 03633- 4104 May, [facility] [id number] [place] [address] 35197- 1197 May, Primary insomnia F51.01 and Arthralgia, unspecified joint M25.50 [facility] [id number] [place] [address] 63692- 5007 May, Other chronic pain G89.29 [facility] [employer] [employer] [address] [place] [id number] May, Nephrolithiasis N20.0 ; Cataract H26.9 and Macrocytic anemia D53.9 [facility] [id number] [place] [address] 87157- 0040 May, [facility] [id number] [place] [address] 62605- 3578 Apr, [facility] [id number] [place] [address] 25413- 5012 Apr, [facility] [id number] [place] [address] 27708- 0389 Apr, Primary insomnia F51.01 [facility] [address] [place] [address] 00062- 4789 Apr, [facility] [id number] [place] [address] 84987- 6347 March, Other chronic pain G89.29 Via [employer] [address] [place] [id number] March, Arthralgia, unspecified joint M25.50 ; Abnormal urine sediment R82.90 ; Venous stasis dermatitis of both lower extremities I87.2 ; Stage 4 chronic kidney disease N18.4 and Cataract of right eye, unspecified cataract type H26.9 [facility] [address] [place] [address] 88905- 8311 March, Primary insomnia F51.01 Via [employer] [address] [place] [id number] March, Cervicalgia M54.2 ; Acute pain of right shoulder M25.511 and Pain of left femur M89.8X5 [facility] [address] [place] [address] 15799- 7640 March, [facility] [id number] [place] [address] 76166- 0931 March, Other chronic pain G89.29 [facility] [id number] [place] [address] 02688- 3543 Feb, [facility] [address] [place] [id number] Feb, Leg swelling M79.89 [facility] [id number] [place] [address] 26464- 5363 Feb, Primary insomnia F51.01 [facility] [employer] [address] [place] [id number] Feb, Fever in other diseases R50.81 and Intermittent left lower quadrant abdominal pain R10.32 [facility] [id number] [place] [address] 08898- 6321 Feb, [facility] [id number] [place] [address] 91952- 4519 Feb, [facility] [id number] [place] [address] 41987- 2747 Feb, Depression, unspecified depression type F32.9 ; Hypothyroidism, unspecified type E03.9 ; Type 2 diabetes mellitus without complication, unspecified parts counterman insulin use status E11.9 and Anxiety F41.9 [facility] [id number] [place] [address] 48626- 8125 Feb, Other chronic pain G89.29 [facility] [id number] [place] [address] [id number] Jan, Other chronic pain G89.29 [facility] [id number] [address] 3423 Jan, Bladder spasms N32.89 [facility] [address] [address] 3426 Jan, Bladder spasms N32.89 [facility] [address] [address]- 7085 Dec, Bladder spasms N32.89 [facility] [address] [address]- 6578 Dec, Depression, unspecified depression type F32.9 [facility] [address] [address] 1150 Dec, Via [facility] [address] [facility] [place] [id number] Dec, Hypothyroidism, unspecified type E03.9 ; Depression, unspecified depression type F32.9 ; Other chronic pain G89.29 ; Urinary retention R33.9 and Atrial fibrillation, unspecified type I48.91 [facility] [id number] [address] Dec, [facility] [address] [address] Dec, Other chronic pain G89.29 [facility] [id number] [address] Nov, [facility] [id number] [address] Nov, Other chronic pain G89.29 [facility] [id number] [address]- 1436 Nov, Other chronic pain G89.29 [facility] [address] [address] 6436 Nov, [facility] [address] [address]- 5566 Nov, [facility] [id number] [address]- 7994 Nov, Other chronic pain G89.29 [facility] [address] [address] 6287 Nov, Other chronic pain G89.29 [facility] [address] [address]- 7794 14 Oct, 2017 [facility] [address] [place] [address] 83815- 8765 Oct, Other chronic pain G89.29 [facility] [employer] [address] [facility] [place] [address] Oct, Weakness R53.1 ; Macrocytic anemia D53.9 ; Discolored skin L81.9 ; Other chronic pain G89.29 ; Dysuria R30.0 and Hayes catheter in place Z92.89 [facility] [address] [address]- 0481 Oct, Other chronic pain G89.29 [facility] [id number] [place] [id number] Sep, [facility] [address] [address]- 9196 Sep, [facility] [id number] [address]- 3636 Sep, [facility] [id number] [place] [id number] Sep, [facility] [id number] [place] [address] [id number] Sep, Other chronic pain G89.29 [facility] [address] [address]- 9346 Sep, [facility] [id number] [address] Sep, Other chronic pain G89.29 Via [facility] [address] [place] [address] Sep, Chronic urinary tract infection N39.0 ; Other chronic pain G89.29 ; Chronic kidney disease (CKD), unspecified stage N18.9 ; Type 2 diabetes mellitus without complication, unspecified parts counterman insulin use status E11.9 ; Hypothyroidism, unspecified type E03.9 ; Depression, unspecified depression type F32.9 ; Cataract H26.9 ; Obstructive sleep apnea syndrome G47.33 ; Atrial fibrillation, unspecified type I48.91 ; History of femur fracture Z87.81 and Hayes catheter in place Z92.89 [facility] [address] [place] [address]- 4917 Sep, [facility] [id number] [place] [address] 99152- 9423 Aug, [facility] [id number] [place] [address] 43371- 0973 Aug, Other chronic pain G89.29 [facility] [id number] [place] [address] 01479- 3944 Aug, [facility] [id number] [place] [address] 53212- 1375 Aug, [facility] [id number] [place] [address] [id number] Aug, [facility] [address] [address]- 4357 Aug, [facility] [id number] [address]- 4705 Aug, Type 2 diabetes mellitus without complication, unspecified detention insulin use status E11.9 [facility] [id number] [place] [address] 94399- 4710 Aug, Other chronic pain G89.29 [facility] [address] [place] [address]- 0150 Aug, [facility] [address] [address]- 9929 16 Aug, 2017 [facility] [address] [address]- 6907 22 Jul, 2017 Other chronic pain G89.29 [facility] [address] [address] 2546 Jul, [facility] [address] [address]- 9146 Jul, Dark brown urine R82.99 [facility] [address] [address]- 3284 Jul, Dark brown urine R82.99 [facility] [address] [address]- 0892 14 Jul, 2017 [facility] [address] [address]- 9183 Jun, Other chronic pain G89.29 [facility] [address] [address]- 5454 Jun, Type 2 diabetes mellitus without complication, unspecified detention insulin use status E11.9 [facility] [address] [address]- 4448 May, Candidiasis, intertrigo B37.2 [facility] [address] [address]- 6159 May, Other chronic pain G89.29 [facility] [address] [address]- 3765 May, [facility] [address] [address]- 7990 May, [facility] [address] [address]- 8382 May, Candidiasis, intertrigo B37.2 [facility] [address] [address]- 8195 May, Atrial fibrillation, unspecified type I48.91 [facility] [address] [place] [address] 02765- 1859 May, Hypothyroidism, unspecified type E03.9 and Decreased renal function N28.9 [facility] [id number] [place] [address] 19193- 3451 May, Type 2 diabetes mellitus without complication, unspecified parts counterman insulin use status E11.9 [facility] [id number] [place] [address] 15652- 3866 May, Dental examination Z01.20 [facility] [id number] [place] [address] 17632- 3855 May, Chronic kidney disease (CKD), unspecified stage N18.9 ; Type 2 diabetes mellitus without complication, unspecified parts counterman insulin use status E11.9 ; Hypothyroidism, unspecified type E03.9 ; Depression, unspecified depression type F32.9 ; Anemia, unspecified type D64.9 and Ulcer L98.499 [facility] [id number] [place] [address] 48132- 4823 May, [facility] [id number] [place] [address] 64742- 5782 Apr, Other chronic pain G89.29 [facility] [id number] [place] [address] 20275- 3135 Apr, Other chronic pain G89.29 [facility] [id number] [place] [address] 47014- 2250 March, [facility] [id number] [place] [address] 75396- 9749 March, [facility] [id number] [place] [address] 26421- 9781 March, [facility] [id number] [place] [address] 17101- 2914 March, Other chronic pain G89.29 [facility] [address] [address]- 0108 March, [facility] [id number] [place] [address] 53108- 3796 Feb, [facility] [id number] [place] [address] 66192- 1973 Feb, Type 2 diabetes mellitus without complication, unspecified detention insulin use status E11.9 ; Candidiasis, intertrigo B37.2 ; Decubitus ulcer of left buttock, unstageable L89.320 and Pressure ulcer of contiguous region involving right buttock and hip, unspecified ulcer stage L89.40 [facility] [id number] [place] [address] 92933- 8474 Feb, Atrial fibrillation, unspecified type I48.91 [facility] [id number] [place] [address] 88774- 4210 Feb, [facility] [id number] [place] [address] 34502- 4361 Feb, [facility] [id number] [place] [address] 48008- 4059 Feb, Other chronic pain G89.29 [facility] [id number] [place] [address] 07963- 1891 Jan, Other chronic pain G89.29 [facility] [address] [place] [address] 86826- 7270 Dec, [facility] [id number] [place] [address] 51044- 2104 Dec, Lethargy R53.83 [facility] [id number] [place] [address] 05207- 9913 17 Dec, 2016 [facility] [address] [place] [address] 58416- 5111 10 Dec, 2016 Other chronic pain G89.29 [facility] [address] [place] [address]- 9653 Nov, [facility] [address] [address]- 5680 Nov, [facility] [address] [address]- 8222 Nov, Other chronic pain G89.29 [facility] [address] [address]- 0980 Nov, [facility] [address] [address] 4119 Nov, [facility] [address] [place] [address] 62730- 2912 Nov, [facility] [address] [place] [address] 08795- 4494 Oct, Cough R05 [facility] [address] [address]- 7965 Oct, Urinary tract infection, site not specified N39.0 [facility] [address] [address]- 4208 16 Oct, 2016 Other chronic pain G89.29 [facility] [address] [address]- 4046 15 Oct, 2016 Type 2 diabetes mellitus without complication, unspecified detention insulin use status E11.9 ; Other chronic [...] J30.89 ; Nausea R11.[address] [facility] [address] [address]- 8184 Oct, [facility] [id number] [address]- 9803 Oct, [facility] [id number] [place] [address] 18384- 6456 Oct, [facility] [address] [place] [address] 76819- 4769 Oct, Chronic kidney disease (CKD), unspecified stage N18.9 [facility] [id number] [place] [address] 83960- 4303 Oct, [facility] [id number] [place] [address] 04017- 7456 Sep, Other chronic pain G89.29 [facility] [id number] [place] [address] 46443- 6088 Sep, Chronic kidney disease (CKD), unspecified stage N18.9 and Senile cataract of right eye, unspecified age-related cataract type H25.9 [facility] [address] [address]- 4411 Sep, [facility] [id number] [place] [address] 53050- 7961 Sep, [facility] [address] [address]- 6077 Sep, [facility] [address] [place] [address] 20816- 3899 Sep, [facility] [id number] [address]- 6470 Sep, [facility] [id number] [place] [address] 36172- 5548 Aug, [facility] [id number] [address]- 4848 Aug, [facility] [id number] [place] [address] 70360- 6016 Aug, [facility] [address] [address]- 5589 Aug, Encounter to establish care Z76.89 ; Other chronic pain G89.29 ; Chronic kidney disease (CKD), unspecified stage N18.9 ; Obstructive sleep apnea syndrome G47.33 ; Type 2 diabetes mellitus without complication, unspecified detention insulin use status E11.9 ; Urinary incontinence, unspecified type R32 ; Depression, unspecified depression type F32.9 ; History of femur fracture Z87.81 ; History of fractured kneecap Z87.81 ; Hypothyroidism , unspecified type E03.9 ; Cataract H26.9 and Gastroesophageal reflux disease without esophagitis K21.9 [place] [id number] [place] [address] 77352- 4228 Aug, [place] [id number] [place] [address] 06458- 3481 Aug, Urinary incontinence, unspecified type R32 [place] [id number] [place] [address] 61015- 8059 Aug, [place] [id number] [place] [address] 73218- 1088 Jul, [facility] [address] [place] [address] Jul, Type 2 diabetes mellitus without complication, unspecified parts counterman insulin use status E11.9 ; Chronic kidney [...] E03.9 and Constipation, unspecified constipation type K59.00 [address] [place] [address] 88459- 3780 19 Jul, 2016 [facility] [id number] [address]- 6249 16 Jul, [facility] [address] [place] [address] 14 Jul, 2016 Anemia, unspecified type D64.9 ; Acute renal failure, unspecified acute renal failure type N17.9 ; Other chronic pain G89.29 ; Obstructive sleep apnea syndrome G47.33 and Type 2 diabetes mellitus without complication, unspecified parts counterman insulin use status E11.9 [facility] [address] [address]- 1104 Jul, [facility] [id number] [place] [address] 01418- 9126 Jul, [facility] [id number] [place] [address] 21319- 2935 Jul, [facility] [address] [address]- 8070 Jul, [facility] [address] [address]- 2242 Jul, [facility] [address] [place] [id number] Jun, Other chronic pain G89.29 ; Hayes catheter in place Z92.89 ; Chronic kidney disease (CKD), unspecified stage N18.9 and Blisters of multiple sites R23.8 [facility] [address] [address]- 9615 Jun, [facility] [address] [address]- 2514 Jun, [facility] [address] [address]- 0808 Jun, [facility] [address] [address]- 9961 Jun, [facility] [address] [address]- 5719 Jun, [facility] [id number] [address]- 2138 Jun, [facility] [address] [address]- 8987 Jun, [facility] [id number] [address]- 1627 Jun, [facility] [address] [address]- 8738 Jun, [facility] [id number] [address]- 9085 Jun, [facility] [address] [address]- 3064 Jun, [facility] [address] [address]- 9006 May, [facility] [address] [address]- 8957 May, [facility] [id number] [address]- 3925 May, Other chronic pain G89.29 [facility] [address] [place] [id number] May, Encounter to establish care Z76.89 ; Type 2 diabetes mellitus without complication, unspecified parts counterman insulin use status E11.9 ; Hypothyroidism, unspecified [...] SOCIAL HISTORY Never Assessed REASON FOR VISIT DC pyridium PLAN OF CARE VITAL SIGNS MEDICATIONS Unknown [...] Acute Kidney Injury 08/05/16 Hospitalization History UTI, Sepsis--[facility] Hospitalization History Chest pain/SOB/A-fib 02/2017 Hospitalization History Chest pain-[facility] 04/13/17 Hospitalization History UTI, respiratory failure, altered mental status-[facility] 09/13/17
--- OUTSIDE RECORDS SUMMARY | 2018-09-17 19:35 | XMS REPORT ---
Author Author LATONYA KIM [facility] Address [address] [place] [address] Care Team Providers Care Land Conservation Specialist Name Role Phone LATONYA KIM Unavailable PROBLEMS Type Condition ICD9-CM Code LKL93-OP Code Onset Dates Condition Status SNOMED Code Problem Restless leg syndrome G25.81 Active 18553649 Problem Atrial fibrillation, unspecified type I48.91 Active 45196995 Problem Perennial allergic rhinitis, unspecified allergic rhinitis trigger J30.89 Active 470905610 Problem Primary insomnia F51.01 Active 9403658 Problem Closed fracture of left patella, unspecified fracture morphology, sequela S82.002S Active 84616754 Problem Anxiety F41.9 Active 75419749 Problem Decreased renal function N28.9 Active 68657040 Problem Ulcer L98.499 Active 247632334 Problem Bladder spasms N32.89 Active 003167033 Problem Chronic fatigue R53.82 Active 51722096 Problem Cataract H26.9 Active 374075028 Problem Chronic kidney disease (CKD), unspecified stage N18.9 Active 288453164 Problem Morbid obesity due to excess calories E66.01 Active 263330998 Problem Urinary incontinence, unspecified type R32 Active 568989029 Problem Hypothyroidism, unspecified type E03.9 Active 70802082 Problem Obstructive sleep apnea syndrome G47.33 Active 33933799 Problem Type 2 diabetes mellitus without complication, unspecified assisted insulin use status E11.9 Active 65965567 Problem Gastroesophageal reflux disease without esophagitis K21.9 Active 312047522 Problem Depression, unspecified depression type F32.9 Active 54252551 Problem Other chronic pain G89.29 Active 72039786 ALLERGIES No Information ENCOUNTERS Encounter Location Date Diagnosis [facility] [address] [place] [id number] March, Cervicalgia M54.2 ; Acute pain of right shoulder M25.511 and Pain of left femur M89.8X5 [place] [address] [address] March, [place] [address] [place] [id number] [place] [address] 72528- 5045 March, Other chronic pain G89.29 [place] [address] [place] [address] 00988- 4131 Feb, [facility] [address] [place] [id number] Feb, Leg swelling M79.89 [place] [address] [place] [address] 26368- 0841 Feb, Primary insomnia F51.01 [facility] [address] [place] [id number] Feb, Fever in other diseases R50.81 and Intermittent left lower quadrant abdominal pain R10.32 [place] [address] [place] [id number] [place] [address] 36376- 9257 Feb, [place] [address] [place] [id number] [place] [address] 65525- 7166 Feb, [place] [address] [place] [id number] [place] [address] 16035- 7444 Feb, Depression, unspecified depression type F32.9 ; Hypothyroidism, unspecified type E03.9 ; Type 2 diabetes mellitus without complication, unspecified assisted insulin use status E11.9 and Anxiety F41.9 [place] [address] [place] [address] 92548- 6069 Feb, Other chronic pain G89.29 [place] [address] [place] [id number] [place] [address] [id number] Jan, Other chronic pain G89.29 [place] [address] [place] [id number] [place] [address] 53615- 9910 Jan, Bladder spasms N32.89 [place] [address] [place] [id number] [place] [address] 82754- 6987 Jan, Bladder spasms N32.89 [facility] [address], [place] [address] 350[address] Dec, Bladder spasms N32.89 [facility] [address], [place] [address] 7588 Dec, Depression, unspecified depression type F32.9 [facility] [address] [address] Dec, [facility] [address] [place] [id number] Dec, Hypothyroidism, unspecified type E03.9 ; Depression, unspecified depression type F32.9 ; Other chronic pain G89.29 ; Urinary retention R33.9 and Atrial fibrillation, unspecified type I48.91 [facility] [place] [address] [address] [id number] [place] [address] [id number] Dec, [facility] [place] [address] [place] [id number] [place] [address] [id number] Dec, Other chronic pain G89.29 [facility] [place] [address] [place] [address] [id number] [place] [address] [id number] Nov, [facility] [place] [address] [place] [address] [id number] [place] [address] [id number] Nov, Other chronic pain G89.29 [facility] [address] [address] Nov, Other chronic pain G89.29 [facility] [address], [place] [address] 5856 Nov, [facility] [address], [place] [address] 3056 Nov, [facility] [address], [place] [address] 0634 Nov, Other chronic pain G89.29 [facility] [address], [place] [address] 3266 Nov, Other chronic pain G89.29 [facility] [address], [place] [address] 4413 Oct, [facility] [address] [address] 8535 Oct, Other chronic pain G89.29 [facility] [address] [place] [id number] Oct, Weakness R53.1 ; Macrocytic anemia D53.9 ; Discolored skin L81.9 ; Other chronic pain G89.29 ; Dysuria R30.0 and [address] catheter in place Z92.89 [facility] [address] [facility] [id number] [address] Oct, Other chronic pain G89.29 [facility] [id number] [id number] Sep, [facility] [address], [place] [address] 3859 Sep, [facility] [address], [place] [address] 3690 Sep, [facility] [address] [place] [address] [id number] [place] [address] [id number] Sep, [facility] [address] [place] [id number] [place] [address] [id number] Sep, Other chronic pain G89.29 [facility] [address] [place] [id number] [address] 5[address] Sep, [facility] [id number] [id number] Sep, Other chronic pain G89.29 [facility] [address] [place] [id number] Sep, Chronic urinary tract infection N39.0 ; [...] Z87.81 and Hayes catheter in place Z92.89 [facility] [address] [place] [id number] [place] [address] 73876- 9850 Sep, [facility] [address] [place] [id number] [place] [address] 73220- 7593 Aug, [facility] [address] [place] [id number] [place] [address] 01674- 5838 Aug, Other chronic pain G89.29 [facility] [address] [place] [id number] [place] [address] 27871- 2078 Aug, [facility] [address] [place] [id number] [place] [address] 49669- 9773 Aug, [facility] [place] [address] [place] [id number] [place] [address] [id number] Aug, [facility] [address] [place] [id number] [place] [address] 91269- 5697 Aug, [facility] [address] [place] [id number] [place] [address] 00063- 8391 Aug, Type 2 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 without complication, 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 [facility] [address] [place] [id number] [place] [address] 97801- 6724 Aug, Other chronic pain G89.29 [facility] [address] [place] [id number] [place] [address] 92391- 8486 Aug, [facility] [address] [place] [id number] [place] [address] 26064- 5378 Aug, [facility] [address] [place] [id number] [place] [address] 42968- 3445 Jul, Other chronic pain G89.29 [facility] [address] [place] [address] [id number] [address] 2723 Jul, [facility] [address], [place] [address] 5262 Jul, Dark brown urine R82.99 [facility] [address] [place] [address] 05637- 1261 Jul, Dark brown urine R82.99 [facility] [address] [place] [id number] [place] [address] 76267- 4470 14 Jul, 2017 [facility] [address] [place] [id number] [place] [address] 47041- 8063 Jun, Other chronic pain G89.29 [place] [address] [place] [id number] [place] [address] 41315- 8583 Jun, Type 2 diabetes mellitus without complication, 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 [place] [address] [place] [id number] [place] [address] 39063- 0357 May, Candidiasis, intertrigo B37.2 [place] [address] [place] [id number] [place] [address] 04276- 0833 May, Other chronic pain G89.29 [place] [address] [place] [address] 70807- 5678 May, [place] [address] [place] [address] 47715- 9698 May, [facility] [address] [place] [address] 79691- 5085 May, Candidiasis, intertrigo B37.2 [facility] [address] [place] [id number] [place] [address] 20672- 6707 May, Atrial fibrillation, unspecified type I48.91 [place] [address], [place] [address]- 6146 May, Hypothyroidism, unspecified type E03.9 and Decreased renal function N28.9 [place] [address] [place] [id number] [address]- 2779 May, Type 2 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 mellitus without complication, 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 [facility] [address], [place] [address]- 1773 May, Dental examination Z01.20 [facility] [address], [place] [address]- 5069 May, Chronic kidney disease (CKD), unspecified stage N18.9 ; Type 2 diabetes mellitus without complication, unspecified assisted insulin use status E11.9 ; Hypothyroidism, unspecified type E03.9 ; Depression, unspecified depression type F32.9 ; Anemia, unspecified type D64.9 and Ulcer L98.499 [facility] [address], [place] [address]- 5126 May, [facility] [address] [place] [id number] [place] [address] 64163- 7683 Apr, Other chronic pain G89.29 [facility] [address], [place] [address]- 5554 Apr, Other chronic pain G89.29 [facility] [address] [place] [id number] [address] 4170 March, [facility] [address], [place] [address] 4624 March, [facility] [address], [place] [address]- 0980 March, [facility] [address], [place] [address]- 7678 March, Other chronic pain G89.29 [facility] [address], [place] [address]- 4761 March, [facility] [address], [place] [address] 1962 Feb, [facility] [address] [place] [id number] [place] [address] 84801- 2697 Feb, Type 2 diabetes mellitus without complication, unspecified assisted insulin use status E11.9 ; Candidiasis, intertrigo B37.2 ; Decubitus ulcer of left buttock, unstageable L89.320 and Pressure ulcer of contiguous region involving right buttock and hip, unspecified ulcer stage L89.40 [facility] [address] [place] [id number] [place] [address] 29824- 9450 Feb, Atrial fibrillation, unspecified type I48.91 [facility] [address] 44488- 0294 Feb, [facility] [address] 35532- 4872 Feb, [facility] [address] [place] [id number] [place] [address] 36465- 3522 Feb, Other chronic pain G89.29 [facility] [address] [place] [id number] [place] [address] 38144- 2377 Jan, Other chronic pain G89.29 [facility] [address] [place] [id number] [place] [address] 44245- 4118 Dec, [facility] [address] [place] [id number] [place] [address] 93098- 5490 Dec, Lethargy R53.83 [facility] [address] [place] [id number] [place] [address] 79305- 2967 Dec, [facility] [address] [place] [id number] [place] [address] 73204- 8194 Dec, Other chronic pain G89.29 [facility] [address] [place] [id number] [place] [address] 84218- 2578 Nov, [facility] [address] [place] [id number] [place] [address] 08534- 2644 Nov, [facility] [address] [place] [id number] [place] [address] 80623- 3990 Nov, Other chronic pain G89.29 [facility] [address], [place] [address]- 3058 Nov, [facility] [id number] [place] [address] 39689- 7037 Nov, [facility] [address] [place] [address] 76102- 3603 Nov, [facility] [address] [place] [id number] [place] [address] 24252- 9674 Oct, Cough R05 [place] [address] [place] [id number] [place] [address] 06928- 2392 Oct, Urinary tract infection, site not specified N39.0 [place] [address] [place] [id number] [place] [address] 10602- 1441 Oct, Other chronic pain G89.29 [place] [address] [place] [id number] [place] [address] 32136- 6595 Oct, Type 2 diabetes mellitus without complication, [...] J30.89 ; Nausea R11.0 and Candidiasis B37.9 [place] [address] [place] [address] 28148- 7143 Oct, [facility] [address] [place] [address] 64942- 2787 Oct, [place] [address] [place] [address] 17378- 8164 Oct, [facility] [address], [place] [address]- 9041 Oct, Chronic kidney disease (CKD), unspecified stage N18.9 [facility] [address], [place] [address]- 7623 Oct, [facility] [address], [place] [address]- 1165 Sep, Other chronic pain G89.29 [facility] [address], [place] [address]- 7675 Sep, Chronic kidney disease (CKD), unspecified stage N18.9 and Senile cataract of right eye, unspecified age-related cataract type H25.9 [facility] [address], [place] [address]- 2942 Sep, [facility] [address] [place] [id number] [place] [address] 23574- 1228 Sep, [facility] [address], [place] [address]- 2967 Sep, [facility] [address] [id number], [place] [address]- 5533 Sep, [facility] [address], [place] [address]- 6857 Sep, [facility] [address], [place] [address]- 1228 Aug, [facility] [address], [place] [address]- 0226 Aug, [facility] [address] [place] [id number] [place] [address] 85024- 0879 Aug, [facility] [address], [place] [address]- 5684 Aug, Encounter to establish care Z76.89 ; [...] and Gastroesophageal reflux disease without esophagitis K21.9 [place] [address] [place] [id number] [place] [address] 19358- 6840 Aug, [place] [address] [place] [id number] [place] [address] 59015- 4961 Aug, Urinary incontinence, unspecified type R32 [place] [id number] [place] [address] 10424- 3227 Aug, [place] [address] [place] [id number] [place] [address] 03671- 3904 Jul, [facility] [address] [id number] Jul, Type 2 diabetes mellitus without complication, unspecified assisted insulin use status E11.9 ; Chronic kidney [...] E03.9 and Constipation, unspecified constipation type K59.00 [place] [id number] [place] [address] 59298- 1033 Jul, [place] [id number] [place] [address] 97612- 0130 Jul, [facility] [place] [address] [place] [id number] Jul, Anemia, unspecified type D64.9 ; Acute renal failure, unspecified acute renal failure type N17.9 ; Other chronic pain G89.29 ; Obstructive sleep apnea syndrome G47.33 and Type 2 diabetes mellitus without complication, unspecified assisted insulin use status E11.9 [facility] [address], [place] [address]- 5686 Jul, [facility] [id number] [place] [address] 36238- 0538 Jul, [facility] [address] [place] [id number] [place] [address] 53702- 2467 Jul, [facility] [address] [place] [id number] [place] [address] 44049- 3631 Jul, [facility] [address] [place] [id number] [place] [address] 07831- 2116 Jul, [facility] [address] [place] [id number] Jun, Other chronic pain G89.29 ; Hayes catheter in place Z92.89 ; Chronic kidney disease (CKD), unspecified stage N18.9 and Blisters of multiple sites R23.8 [facility] [address] [place] [address] 39968- 9095 Jun, [facility] [address] [place] [address] 80821- 3134 Jun, [facility] [address] [place] [address] 11170- 4919 Jun, [facility] [address] [place] [address] 30144- 2744 Jun, [facility] [address] [place] [id number] [place] [address] 60639- 4016 Jun, [facility] [address], [place] [address]- 2228 Jun, [facility] [address] [place] [id number] [place] [address] 82404- 1444 Jun, [facility] [address] [facility] [id number] [address]- 4858 Jun, [facility] [address] [id number] [address]- 0178 Jun, [facility] [id number] [address]- 5979 Jun, [facility] [address], [place] [address]- 5857 Jun, [facility] [id number] [address]- 1716 May, [facility] [id number] [address]- 6864 May, [facility] [id number] [address]- 0228 May, Other chronic pain G89.29 [facility] [address] [place] [id number] May, Encounter to establish care Z76.89 ; [...] Never Assessed REASON FOR VISIT Requests return call/lvm PLAN OF CARE VITAL SIGNS MEDICATIONS Unknown [...] Acute Kidney Injury 08/05/16 Hospitalization History UTI, Sepsis--[facility] Hospitalization History Chest pain/SOB/A-fib 02/2017 Hospitalization History Chest pain-[facility] 04/13/17 Hospitalization History UTI, respiratory failure, altered mental status-[facility] 09/13/17
--- OUTSIDE RECORDS SUMMARY | 2018-09-17 19:35 | XMS REPORT ---
Author Author LATONYA KIM [facility] Address [address] [place] [address] Care Team Providers Care Principal Account Clerk Name Role Phone LATONYA KIM Unavailable PROBLEMS Type Condition ICD9-CM Code ITX48-FS Code Onset Dates Condition Status SNOMED Code Problem Restless leg syndrome G25.81 Active 66838083 Problem Atrial fibrillation, unspecified type I48.91 Active 82160582 Problem Perennial allergic rhinitis, unspecified allergic rhinitis trigger J30.89 Active 948058592 Problem Primary insomnia F51.01 Active 5890285 Problem Closed fracture of left patella, unspecified fracture morphology, sequela S82.002S Active 88653574 Problem Anxiety F41.9 Active 16757978 Problem Decreased renal function N28.9 Active 59363077 Problem Ulcer L98.499 Active 719069758 Problem Bladder spasms N32.89 Active 685974397 Problem Chronic fatigue R53.82 Active 61500696 Problem Cataract H26.9 Active 145086006 Problem Chronic kidney disease (CKD), unspecified stage N18.9 Active 639669122 Problem Morbid obesity due to excess calories E66.01 Active 355524736 Problem Urinary incontinence, unspecified type R32 Active 942839943 Problem Hypothyroidism, unspecified type E03.9 Active 15705317 Problem Obstructive sleep apnea syndrome G47.33 Active 40143276 Problem Type 2 diabetes mellitus without complication, unspecified fpc insulin use status E11.9 Active 64251581 Problem Gastroesophageal reflux disease without esophagitis K21.9 Active 361729793 Problem Depression, unspecified depression type F32.9 Active 94119217 Problem Other chronic pain G89.29 Active 06560692 ALLERGIES No Information ENCOUNTERS Encounter Location Date Diagnosis [facility] [address] [facility] [id number] [place] [address] March, Primary insomnia F51.01 Via [facility] [address] [place] [id number] March, Cervicalgia M54.2 ; Acute pain of right shoulder M25.511 and Pain of left femur M89.8X5 [facility] [id number] [place] [address] 39382- 0365 March, [facility] [id number] [place] [address] 10708- 3114 March, Other chronic pain G89.29 [facility] [id number] [place] [address] 54696- 1085 Feb, Via [facility] [address] [place] [id number] Feb, Leg swelling M79.89 [facility] [id number] [place] [address] 64338- 2757 Feb, Primary insomnia F51.01 Via [facility] [address] [place] [id number] Feb, Fever in other diseases R50.81 and Intermittent left lower quadrant abdominal pain R10.32 [facility] [id number] [place] [address] 58270- 1010 Feb, [facility] [id number] [place] [address] 11211- 1109 Feb, [facility] [id number] [place] [address] 05190- 4213 Feb, Depression, unspecified depression type F32.9 ; Hypothyroidism, unspecified type E03.9 ; 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, 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89 [facility] [address] [address] 7178 Dec, Depression, unspecified depression type F32.9 [facility] [id number] [address] Dec, Via [facility] [address] [facility] [place] [id number] Dec, Hypothyroidism, unspecified type E03.9 ; Depression, unspecified depression type F32.9 ; Other chronic pain G89.29 ; Urinary retention R33.9 and Atrial fibrillation, unspecified type I48.91 [facility] [id number] [id number] Dec, [facility] [id number] [place] [address] [id number] Dec, Other chronic pain G89.29 [facility] [id number] [id number] Nov, [facility] [id number] [address] Nov, Other chronic pain G89.29 [facility] [id number] [address] 5246 Nov, Other chronic pain G89.29 [facility] [address], [place] [address] 4[address] Nov, [facility] [address] [address] Nov, [facility] [id number] [address] [address] Nov, Other chronic pain G89.29 [facility] [address], [place] [address] 0191 Nov, Other chronic pain G89.29 [facility] [address] [address] 14 Oct, 2017 [facility] [address], [place] [address] 03[address] Oct, Other chronic pain G89.29 [address] [facility] [address] [place] [id number] Oct, Weakness R53.1 ; Macrocytic anemia D53.9 ; Discolored skin L81.9 ; Other chronic pain G89.29 ; Dysuria R30.0 and [address] catheter in place Z92.89 [facility] [address], [place] [address] Oct, Other chronic pain G89.29 [facility] [id number] [place] [id number] Sep, [facility] [address]65[address], [place] [address] Sep, [facility] [id number] [place] [address] 96509- 8362 Sep, [facility] [id number] [id number] Sep, [facility] [id number] [place] [address] [id number] Sep, Other chronic pain G89.29 [facility] [address] Sep, [facility] [id number] [place] [address] [id number] Sep, Other chronic pain G89.29 [address] [facility] [address] [place] [id number] Sep, Chronic urinary tract infection N39.0 ; [...] Z87.81 and Hayes catheter in place Z92.89 [facility] [id number] [place] [address] 27338- 7157 Sep, [facility] [id number] [place] [address] 08615- 7870 Aug, [facility] [address] [address]30- 2282 Aug, Other chronic pain G89.29 [facility] [address] 46376- 8333 Aug, [facility] [id number] [place] [address] 61706- 4261 Aug, [facility] [address] [id number] Aug, [facility] [id number] [place] [address] 43674- 3869 Aug, [facility] [id number] [place] [address] 89741- 2891 Aug, 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 complication, 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 [facility] [id number] [place] [address] 69916- 6272 Aug, Other chronic pain G89.29 [facility] [id number] [place] [address] 66521- 2716 Aug, [facility] [id number] [place] [address] 88795- 8681 Aug, [facility] [address] 66925- 1507 Jul, Other chronic pain G89.29 [facility] [address], [place] [address]207 Jul, [facility] [id number] [place] [address] 44527- 8371 Jul, Dark brown urine R82.99 [facility] [address] [place] [address] 26498- 6571 Jul, Dark brown urine R82.99 [facility] [id number] [place] [address] 87038- 4644 Jul, [facility] [id number] [place] [address] 62820- 9037 Jun, Other chronic pain G89.29 [facility] [id number] [place] [address] 97079- 4412 Jun, 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 complication, 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 [facility] [id number] [place] [address] 55719- 4488 May, Candidiasis, intertrigo B37.2 [facility] [id number] [place] [address] 60726- 1458 May, Other chronic pain G89.29 [facility] [address] [address]- 0455 May, [facility] [id number] [place] [address] 54028- 1987 May, [facility] [id number] [place] [address] 15971- 8303 May, Candidiasis, intertrigo B37.2 [facility] [id number] [place] [address] 93403- 3674 May, Atrial fibrillation, unspecified type I48.91 [facility] [id number] [place] [address] 54590- 9111 May, Hypothyroidism, unspecified type E03.9 and Decreased renal function N28.9 [facility] [id number] [place] [address] 81984- 6594 May, Type 2 diabetes mellitus without complication, unspecified fpc insulin use status E11.9 [facility] [id number] [place] [address] 40260- 4715 May, Dental examination Z01.20 [place] [id number] [place] [address] 97405- 2322 May, Chronic kidney disease (CKD), unspecified stage N18.9 ; 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 complication, 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 ; Hypothyroidism, unspecified type E03.9 ; Depression, unspecified depression type F32.9 ; Anemia, unspecified type D64.9 and Ulcer L98.499 [place] [facility] [id number] [place] [address] 09309- 8503 May, [facility] [id number] [place] [address] 63164- 2761 Apr, Other chronic pain G89.29 [facility] [id number] [place] [address] 34273- 8790 Apr, Other chronic pain G89.29 [facility] [id number] [place] [address] 49555- 6061 March, [facility] [facility] [id number] [place] [address] 63586- 7572 March, [facility] [id number] [place] [address] 31148- 1495 March, [place] [facility] [id number] [place] [address] 57195- 2647 March, Other chronic pain G89.29 [facility] [id number] [place] [address] 21769- 0196 March, [place] [id number] [address]- 5594 Feb, [facility] [id number] [place] [address] 85382- 5081 Feb, Type 2 diabetes mellitus without complication, unspecified fpc insulin use status E11.9 ; Candidiasis, intertrigo B37.2 ; Decubitus ulcer of left buttock, unstageable L89.320 and Pressure ulcer of contiguous region involving right buttock and hip, unspecified ulcer stage L89.40 [facility] [id number] [place] [address] 31653- 9893 Feb, Atrial fibrillation, unspecified type I48.91 [facility] [id number] [place] [address] 85394- 3521 Feb, [facility] [id number] [place] [address] 61659- 6276 Feb, [facility] [id number] [place] [address] 41241- 4281 Feb, Other chronic pain G89.29 [facility] [id number] [place] [address] 20173- 8424 Jan, Other chronic pain G89.29 [facility] [id number] [place] [address] 77710- 1169 Dec, [facility] [id number] [place] [address] 99003- 0055 Dec, Lethargy R53.83 [facility] [id number] [place] [address] 97995- 0304 Dec, [facility] [id number] [place] [address] 72852- 5394 Dec, Other chronic pain G89.29 [facility] [id number] [place] [address] 09153- 1947 Nov, [facility] [id number] [address]- 6589 Nov, [facility] [id number] [place] [address] 75630- 8389 Nov, Other chronic pain G89.29 [facility] [id number] [place] [address] 39905- 1248 Nov, [facility] [id number] [place] [address] 90905- 8505 Nov, [facility] [id number] [place] [address] 04921- 6031 Nov, [place] [id number] [place] [address] 87666- 3092 Oct, Cough R05 [place] [facility] [id number] [place] [address] 37578- 8043 Oct, Urinary tract infection, site not specified N39.0 [place] [id number] [place] [address] 35328- 2673 Oct, Other chronic pain G89.29 [facility] [id number] [place] [address] 76566- 4494 Oct, 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 complication, 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 ; Other [...] J30.89 ; Nausea R11.0 and Candidiasis B37.9 [facility] [address] [address]- 2681 Oct, [place] [facility] [id number] [place] [address] 29952- 0098 Oct, [facility] [address] [place] [address]- 4516 Oct, [facility] [id number] [place] [address]- 6705 Oct, Chronic kidney disease (CKD), unspecified stage N18.9 [facility] [id number] [place] [address], [place] [address]- 3292 Oct, [facility] [address] [place] [address]- 6883 Sep, Other chronic pain G89.29 [facility] [id number] [place] [address], [place] [address]- 3160 Sep, Chronic kidney disease (CKD), unspecified stage N18.9 and Senile cataract of right eye, unspecified age-related cataract type H25.9 [facility] [id number] [place] [address]- 2806 Sep, [facility] [address] [place] [address]- 7024 Sep, [facility] [address] [address]- 6895 Sep, [facility] [address], [place] [address]- 7398 Sep, [facility] [address], [place] [address]- 2298 Sep, [facility] [address] [address]- 6762 Aug, [facility] [id number] [place] [address]- 0309 Aug, [facility] [address]- 9007 Aug, [facility] [address], [place] [address]- 6414 18 Aug, 2016 Encounter to establish care [...] and Gastroesophageal reflux disease without esophagitis K21.9 [place] [id number] [place] [address] 06560- 6682 Aug, [place] [id number] [place] [address] 03369- 2140 Aug, Urinary incontinence, unspecified type R32 [place] [id number] [place] [address] 41433- 4098 Aug, [place] [id number] [place] [address] 95452- 6043 Jul, [facility] [address] [place] [id number] Jul, 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 without complication, 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 ; Chronic [...] E03.9 and Constipation, unspecified constipation type K59.00 [place] [facility] [id number] [place] [address] 16753- 7848 Jul, [place] [id number] [place] [address] 37782- 8489 Jul, [facility] [address] [place] [id number] 14 Jul, 2016 Anemia, unspecified type D64.9 ; Acute renal failure, unspecified acute renal failure type N17.9 ; Other chronic pain G89.29 ; Obstructive sleep apnea syndrome G47.33 and Type 2 diabetes mellitus without complication, unspecified fpc insulin use status E11.9 [facility] [address] [address]- 4047 Jul, [facility] [address], [place] [address]- 9470 Jul, [facility] [id number] [place] [address] 98450- 1009 Jul, [facility] [id number] [place] [address] 88427- 0140 Jul, [facility] [id number] [place] [address] 78572- 2497 Jul, [facility] [address] [place] [address] Jun, Other chronic pain G89.29 ; Hayes catheter in place Z92.89 ; Chronic kidney disease (CKD), unspecified stage N18.9 and Blisters of multiple sites R23.8 [facility] [address], [place] [address]- 2656 Jun, [facility] [address] [address]- 4047 Jun, [facility] [address] [address]- 4057 Jun, [facility] [id number] [address]- 2095 Jun, [facility] [address], [place] [address]- 2464 Jun, [facility] [id number] [place] [address] 69054- 6786 Jun, [facility] [id number] [address]- 5166 Jun, [facility] [id number] [address]- 8716 Jun, [facility] [id number] [address]- 4068 Jun, [facility] [address], [place] [address]- 7990 Jun, [facility] [id number] [address]- 2820 Jun, [facility] [id number] [address]- 5160 May, [facility] [id number] [address]- 4831 May, [facility] [id number] [address]- 6790 May, Other chronic pain G89.29 [facility] [address] [place] [id number] May, Encounter to establish care Z76.89 ; [...] SOCIAL HISTORY Never Assessed REASON FOR VISIT FYI PLAN OF CARE VITAL SIGNS MEDICATIONS Unknown [...] Acute Kidney Injury 08/05/16 Hospitalization History UTI, Sepsis--[facility] Hospitalization History Chest pain/SOB/A-fib 02/2017 Hospitalization History Chest pain-[facility] 04/13/17 Hospitalization History UTI, respiratory failure, altered mental status-[facility] 09/13/17
--- OUTSIDE RECORDS SUMMARY | 2018-09-17 19:35 | XMS REPORT ---
Author Author LATONYA KIM Organization [facility] Address [address] [place] [address] Care Team Providers Care Globe Changer Name Role Phone LATONYA KIM Unavailable PROBLEMS Type Condition ICD9-CM Code VFO84-LR Code Onset Dates Condition Status SNOMED Code Problem Atrial fibrillation, unspecified type I48.91 Active 97308032 Problem Decreased renal function N28.9 Active 07437465 Problem Ulcer L98.499 Active 052203084 Problem Venous stasis dermatitis of both lower extremities I87.2 Active 40415355 Problem Urinary incontinence, unspecified type R32 Active 563391605 Problem Stage 4 chronic kidney disease N18.4 Active 846374632 Problem Morbid obesity due to excess calories E66.01 Active 168661639 Problem Closed fracture of left patella, unspecified fracture morphology, sequela S82.002S Active 36852390 Problem Bladder spasms N32.89 Active 907222700 Problem Chronic fatigue R53.82 Active 39440468 Problem Primary insomnia F51.01 Active 4439653 Problem Anxiety F41.9 Active 24240470 Problem Type 2 diabetes mellitus without complication, unspecified health information director insulin use status E11.9 Active 53464333 Problem Depression, unspecified depression type F32.9 Active 52147016 Problem Cataract H26.9 Active 453230271 Problem Chronic kidney disease (CKD), unspecified stage N18.9 Active 141089034 Problem Gastroesophageal reflux disease without esophagitis K21.9 Active 580602771 Problem Other chronic pain G89.29 Active 65860654 Problem Hypothyroidism, unspecified type E03.9 Active 23053376 Problem Restless leg syndrome G25.81 Active 51892790 Problem Obstructive sleep apnea syndrome G47.33 Active 95158184 Problem Perennial allergic rhinitis, unspecified allergic rhinitis trigger J30.89 Active 603588435 ALLERGIES No Information ENCOUNTERS Encounter Location Date Diagnosis [facility] [address] [facility] [id number] [address] Apr, [place] [address] [address] Apr, Primary insomnia F51.01 [place] [address] [place] [address] 58622- 1308 Apr, [place] [address] [place] [id number] [place] [address] 48204- 8078 March, Other chronic pain G89.29 Via [facility] [address] [place] [id number] March, Arthralgia, unspecified joint M25.50 ; Abnormal urine sediment R82.90 ; Venous stasis dermatitis of both lower extremities I87.2 ; Stage 4 chronic kidney disease N18.4 and Cataract of right eye, unspecified cataract type H26.[address] [place] [id number] [place] [address] 57956- 1397 March, Primary insomnia F51.01 Via [facility] [address] [place] [id number] March, Cervicalgia M54.2 ; Acute pain of right shoulder M25.511 and Pain of left femur M89.8X5 [place] [address] [place] [address] 09211- 5294 March, [place] [address] [place] [id number] [place] [address] 98206- 1954 March, Other chronic pain G89.29 [place] [address] [place] [id number] [place] [address] 14383- 0123 Feb, Via [facility] [address] [place] [id number] Feb, Leg swelling M79.89 [place] [address] [place] [id number] [place] [address] 25400- 8062 Feb, Primary insomnia F51.01 Via [facility] [address] [place] [id number] Feb, Fever in other diseases R50.81 and Intermittent left lower quadrant abdominal pain R10.32 [place] [address] [address] 6151 Feb, [place] [address] [place] [id number] [place] [address] 04745- 7161 Feb, [place] [address] [place] [address] 09883- 5189 Feb, Depression, unspecified depression type F32.9 ; Hypothyroidism, unspecified type E03.9 ; Type 2 diabetes mellitus without complication, unspecified health information director insulin use status E11.9 and Anxiety F41.9 [place] [address] [place] [id number] [place] [address] 37301- 4730 Feb, Other chronic pain G89.29 [place] [address] [place] [id number] [place] [address] [id number] Jan, Other chronic pain G89.29 [place] [address] [place] [id number] [place] [address] 85553- 4521 Jan, Bladder spasms N32.89 [place] [address] [place] [id number] [place] [address] 82022- 5623 Jan, Bladder spasms N32.89 [place] [address] [place] [id number] [place] [address] 43622- 1799 Dec, Bladder spasms N32.89 [place] [address] [place] [address] 82513- 2543 Dec, Depression, unspecified depression type F32.9 [place] [address] [address] Dec, Via [facility] [address] [place] [id number] Dec, Hypothyroidism, unspecified type E03.9 ; Depression, unspecified depression type F32.9 ; Other chronic pain G89.29 ; Urinary retention R33.9 and Atrial fibrillation, unspecified type I48.91 [place] [address] [place] [id number] [address] 07 Dec, 2017 [facility] [id number] [place] [address] [id number] Dec, Other chronic pain G89.29 [facility] [address] [place] [id number] [address] Nov, [facility] [address] [place] [id number] [place] [address] [id number] Nov, Other chronic pain G89.29 [facility] [address] [place] [address] 599747- 6424 Nov, Other chronic pain G89.29 [facility] [address] [place] [address] [id number]- 3552 Nov, [facility] [address] [place] [address] 90547- 6105 Nov, [facility] [address] [place] [address] 87703- 5099 Nov, Other chronic pain G89.29 [facility] [address] [place] [address] 90572- 0251 Nov, Other chronic pain G89.29 [facility] [address] [place] [address] 66899- 1834 Oct, [facility] [address] [place] [address] 74165- 1197 Oct, Other chronic pain G89.29 Via [facility] [address] [place] [id number] Oct, Weakness R53.1 ; Macrocytic anemia D53.9 ; Discolored skin L81.9 ; Other chronic pain G89.29 ; Dysuria R30.0 and Hayes catheter in place Z92.89 [facility] [address] [address] 7[address] 07 Oct, 2017 Other chronic pain G89.29 [facility] [address] [place] [id number] [address] Sep, [facility] [address] [facility] [id number] [address]239 Sep, [facility] [place] [address] [place] [id number] [address] 1563 Sep, [facility] [address] [place] [id number] [id number] Sep, [facility] [address] [id number] [place] [address] [id number] Sep, Other chronic pain G89.29 [facility] [address] [address]- 6706 Sep, [facility] [address] [place] [id number] [address] Sep, Other chronic pain G89.29 Via [facility] [address] [place] [id number] Sep, Chronic urinary tract infection N39.0 ; [...] Z87.81 and [address] catheter in place Z92.89 [facility] [address] [place] [id number] [address]- 7702 Sep, [facility] [address] [place] [id number] [address]- 7959 Aug, [facility] [place] [address] [place] [id number], [place] [address] 0753 Aug, Other chronic pain G89.29 [facility] [place] [address] [place] [id number] [address]04 Aug, [facility] [address], [place] [address] 9047 Aug, [facility] [place] [facility] [address] [place] [address] [id number] [place] [address] [id number] Aug, [facility] [place] [address] [place] [address] [id number], [place] [address] 0024 Aug, [facility] [address] [place] [address] 08319- 2539 Aug, Type 2 diabetes mellitus without complication, unspecified usp insulin use status E11.9 [facility] [address], [place] [address] 9265 Aug, Other chronic pain G89.29 [facility] [address], [place] [address]- 0458 18 Aug, 2017 [facility] [address] [place] [address] 79462- 4890 Aug, [facility] [address], [place] [address]- 5331 22 Jul, 2017 Other chronic pain G89.29 [facility] [address], [place] [address] 2546 19 Jul, 2017 [facility] [address], [place] [address] 2540 19 Jul, 2017 Dark brown urine R82.99 [facility] [address] [address] 254 19 Jul, 2017 Dark brown urine R82.99 [facility] [address] [place] [id number] [address] 2546 14 Jul, 2017 [facility] [address] [address]- 2544 Jun, Other chronic pain G89.29 [facility] [address], [place] [address]- 2549 Jun, Type 2 diabetes mellitus without complication, unspecified usp insulin use status E11.9 [place] [id number] [place] [address] 84766- 6511 May, Candidiasis, intertrigo B37.2 [place] [address] [place] [id number] [place] [address] 32220- 8005 May, Other chronic pain G89.29 [place] [address] 83597- 4090 May, [place] [address] 50752- 1306 May, [place] [address] 73200- 0088 May, Candidiasis, intertrigo B37.2 [place] [address] 64674- 4861 May, Atrial fibrillation, unspecified type I48.91 [place] [address] [place] [id number] [place] [address] 13479- 0085 May, Hypothyroidism, unspecified type E03.9 and Decreased renal function N28.9 [place] [address] [place] [id number] [place] [address] 19032- 3698 May, Type 2 diabetes mellitus without complication, unspecified usp insulin use status E11.9 [place] [address] [place] [id number] [place] [address] 16917- 3471 May, Dental examination Z01.20 [place] [address] [place] [id number] [place] [address] 38660- 1422 May, Chronic kidney disease (CKD), unspecified stage N18.9 ; Type 2 diabetes mellitus without complication, unspecified health information director insulin use status E11.9 ; Hypothyroidism, unspecified type E03.9 ; Depression, unspecified depression type F32.9 ; Anemia, unspecified type D64.9 and Ulcer L98.499 [place] [address] 51947- 4018 May, [facility] [address] [place] [id number], [place] [address]- 3747 Apr, Other chronic pain G89.29 [facility] [address], [place] [address]- 3488 Apr, Other chronic pain G89.29 [facility] [address], [place] [address]- 5214 March, [facility] [address] [id number] [address]- 7534 March, [facility] [place] [address] [place] [id number] [place] [address] 83760- 2943 March, [facility] [address] [place] [id number] [place] [address] 44426- 1876 March, Other chronic pain G89.29 [facility] [place] [address] [place] [id number] [place] [address] 35384- 1788 March, [facility] [place] [address] [address]- 9188 Feb, [facility] [address] [place] [address] 13471- 3151 Feb, Type 2 diabetes mellitus without complication, unspecified health information director insulin use status E11.9 ; Candidiasis, intertrigo B37.2 ; Decubitus ulcer of left buttock, unstageable L89.320 and Pressure ulcer of contiguous region involving right buttock and hip, unspecified ulcer stage L89.40 [facility] [address], [place] [address]- 6111 Feb, Atrial fibrillation, unspecified type I48.91 [facility] [place] [address] [address]- 7877 Feb, [facility] [address] [address]- 0638 Feb, [facility] [address], [place] [address]- 0545 Feb, Other chronic pain G89.29 [facility] [place] [address], [place] [address]- 7846 Jan, Other chronic pain G89.29 [facility] [place] [address], [place] [address]- 9145 Dec, [facility] [address] [place] [address] 83806- 1137 Dec, Lethargy R53.83 [facility] [place] [address] [place] [address] 26918- 4316 17 Dec, 2016 [facility] [place] [address] [place] [address] 60394- 8679 Dec, Other chronic pain G89.29 [facility] [place] [address] [place] [address] 06049- 5056 Nov, [facility] [place] [address] [address]- 2447 Nov, [facility] [address] [place] [address] 36911- 5810 Nov, Other chronic pain G89.29 [facility] [place] [address], [place] [address]- 8350 Nov, [facility] [place] [address], [place] [address]- 7898 Nov, [facility] [place] [address], [place] [address]- 6762 Nov, [facility] [address] [place] [address] 68431- 8926 Oct, Cough R05 [facility] [place] [address], [place] [address]- 0699 Oct, Urinary tract infection, site not specified N39.0 [facility] [address] [place] [address] 74761- 3478 16 Oct, 2016 Other chronic pain G89.29 [place] [address] [place] [id number] [place] [address] 75803- 0395 15 Oct, 2016 Type 2 diabetes mellitus without complication, unspecified health information director insulin use status E11.9 ; Other chronic [...] J30.89 ; Nausea R11.0 and Candidiasis B37.9 [place] [address] 85464- 5394 Oct, [place] [address] 34327- 5078 Oct, [place] [address] 73176- 8715 Oct, [place] [address] 53159- 0453 Oct, Chronic kidney disease (CKD), unspecified stage N18.9 [place] [address] [place] [id number] [place] [address] 90916- 5619 Oct, [place] [address] [place] [id number] [place] [address] 93471- 2172 Sep, Other chronic pain G89.29 [place] [address] 20937- 7509 Sep, Chronic kidney disease (CKD), unspecified stage N18.9 and Senile cataract of right eye, unspecified age-related cataract type H25.9 [place] [address] 51874- 8294 Sep, [facility] [place] [address], [place] [address]- 7691 Sep, [facility] [address], [place] [address]- 4879 Sep, [facility] [address], [place] [address]- 6856 Sep, [facility] [place] [id number] [place] [address] 32167- 2415 Sep, [facility] [address] [place] [address] 48461- 5993 Aug, [facility] [id number] [place] [address] 20935- 0575 Aug, [facility] [address] [address]- 7610 Aug, [facility] [address], [place] [address]- 7224 Aug, Encounter to establish care Z76.89 ; Other chronic pain G89.29 ; Chronic kidney disease (CKD), unspecified stage N18.9 ; Obstructive sleep apnea syndrome G47.33 ; Type 2 diabetes mellitus without complication, unspecified health information director insulin use status E11.9 ; Urinary incontinence, unspecified type R32 ; Depression, unspecified depression type F32.9 ; History of femur fracture Z87.81 ; History of fractured kneecap Z87.81 ; Hypothyroidism , unspecified type E03.9 ; Cataract H26.9 and Gastroesophageal reflux disease without esophagitis K21.9 [facility] [address] [address]- 6459 Aug, [facility] [address], [place] [address]- 1063 Aug, Urinary incontinence, unspecified type R32 [facility] [address], [place] [address]- 0489 Aug, [facility] [id number] [place] [address] 37093- 3734 Jul, [facility] [place] [address] [place] [id number] Jul, Type 2 diabetes mellitus without complication, unspecified health information director insulin use status E11.9 ; Chronic kidney [...] E03.9 and Constipation, unspecified constipation type K59.[address] [id number] [place] [address] 70265- 9152 Jul, [place] [id number] [place] [address] 26327- 8746 Jul, [facility] [place] [address] [place] [id number] Jul, Anemia, unspecified type D64.9 ; Acute renal failure, unspecified acute renal failure type N17.9 ; Other chronic pain G89.29 ; Obstructive sleep apnea syndrome G47.33 and Type 2 diabetes mellitus without complication, unspecified health information director insulin use status E11.9 [place] [address] [place] [address] 54437- 5771 Jul, [place] [address] [place] [id number] [place] [address] 84488- 9448 Jul, [place] [address] [id number] [place] [address] 55199- 9510 Jul, [place] [id number] [place] [address] 12002- 7685 Jul, [place] [address] [id number] [place] [address] 57789- 4614 Jul, [facility] [address] [place] [id number] Jun, Other chronic pain G89.29 ; Hayes catheter in place Z92.89 ; Chronic kidney disease (CKD), unspecified stage N18.9 and Blisters of multiple sites R23.8 [facility] [address] [id number] [place] [address]- 0486 Jun, [facility] [address] [id number] [place] [address]- 4821 Jun, [facility] [address] [id number] [place] [address]- 5970 Jun, [facility] [address] [id number] [place] [address] Jun, [facility] [address] [id number] [place] [address] Jun, [facility] [address] [id number] [place] [address] Jun, [facility] [address] [id number] [place] [address] Jun, [facility] [address] [facility] [id number] [place] [address] Jun, [facility] [address] [id number] [place] [address] Jun, [facility] [address] [id number] [place] [address] Jun, [facility] [address] [id number] [place] [address] Jun, [facility] [address] [facility] [id number] [place] [address] May, [facility] [address] [id number] [place] [address] May, [facility] [address] [facility] [id number] [place] [id number] May, Other chronic pain G89.29 [facility] [address] [place], [place] [id number] May, Encounter to establish care Z76.89 ; Type 2 diabetes mellitus without complication, unspecified health information director insulin use status E11.9 ; Hypothyroidism, unspecified [...] request PLAN OF CARE VITAL SIGNS MEDICATIONS Unknown [...] Acute Kidney Injury 08/05/16 Hospitalization History UTI, Sepsis--[facility] Hospitalization History Chest pain/SOB/A-fib 02/2017 Hospitalization History Chest pain-[facility] 04/13/17 Hospitalization History UTI, respiratory failure, altered mental status-[facility] 09/13/17
--- OUTSIDE RECORDS SUMMARY | 2018-09-17 19:36 | XMS REPORT ---
Author Author LEONARDO CALLOWAY [facility] Address [address] [place] [address] Care Team Providers Care Senior Javascript Developer Name Role Phone LEONARDO CALLOWAY Unavailable PROBLEMS Type Condition ICD9-CM Code [id number] Code Onset Dates Condition Status SNOMED Code Problem Restless leg syndrome G25.81 Active 09247906 Problem Atrial fibrillation, unspecified type I48.91 Active 71860629 Problem Perennial allergic rhinitis, unspecified allergic rhinitis trigger J30.89 Active 345636264 Problem Primary insomnia F51.01 Active 0441176 Problem Closed fracture of left patella, unspecified fracture morphology, sequela S82.002S Active 63588620 Problem Anxiety F41.9 Active 00762000 Problem Decreased renal function N28.9 Active 50229233 Problem Ulcer L98.499 Active 338301979 Problem Bladder spasms N32.89 Active 188371592 Problem Chronic fatigue R53.82 Active 52845772 Problem Cataract H26.9 Active 787167620 Problem Chronic kidney disease (CKD), unspecified stage N18.9 Active 294206425 Problem Morbid obesity due to excess calories E66.01 Active 267533707 Problem Urinary incontinence, unspecified type R32 Active 020363742 Problem Hypothyroidism, unspecified type E03.9 Active 51547399 Problem Obstructive sleep apnea syndrome G47.33 Active 55658585 Problem 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, 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 Active 31227439 Problem Gastroesophageal reflux disease without esophagitis K21.9 Active 911580965 Problem Depression, unspecified depression type F32.9 Active 09299023 Problem Other chronic pain G89.29 Active 57930298 ALLERGIES No Information ENCOUNTERS Encounter Location Date Diagnosis [facility] [address] [facility] [id number] [place] [address] Feb, [facility] [place] [facility] [address] [place] [id number] Feb, Leg swelling M79.89 [facility] [id number] [place] [address] 93974- 3586 Feb, Primary insomnia F51.01 [facility] [address] [place] [id number] Feb, Fever in other diseases R50.81 and Intermittent left lower quadrant abdominal pain R10.32 [facility] [id number] [place] [address] 57529- 5703 Feb, [facility] [id number] [place] [address] 42402- 7157 Feb, [facility] [id number] [place] [address] 40138- 6145 Feb, Depression, unspecified depression type F32.9 ; Hypothyroidism, unspecified type E03.9 ; Type 2 diabetes mellitus without complication, unspecified senior care insulin use status E11.9 and Anxiety F41.9 [facility] [id number] [place] [address] 27141- 0263 Feb, Other chronic pain G89.29 [facility] [id number] [place] [address] [id number] Jan, Other chronic pain G89.29 [facility] [id number] [place] [address] 55091- 4035 Jan, Bladder spasms N32.89 [facility] [id number] [place] [address] 56446- 1427 Jan, Bladder spasms N32.89 [facility] [id number] [place] [address] 68482- 1443 Dec, Bladder spasms N32.89 [facility] [id number] [place] [address] 04974- 7976 Dec, Depression, unspecified depression type F32.9 [facility] [id number] [place] [address] 72411- 6679 Dec, [facility] [address] [place] [id number] Dec, Hypothyroidism, unspecified type E03.9 ; Depression, unspecified depression type F32.9 ; Other chronic pain G89.29 ; Urinary retention R33.9 and Atrial fibrillation, unspecified type I48.91 [facility] [id number] [place] [address] [id number] Dec, [facility] [id number] [place] [address] [id number] Dec, Other chronic pain G89.29 [facility] [id number] [place] [address] [id number] Nov, [facility] [id number] [place] [address] [id number] Nov, Other chronic pain G89.29 [facility] [address] [place] [address] 99928- 4306 Nov, Other chronic pain G89.29 [facility] [address] [place] [address] 36192- 2606 Nov, [facility] [id number] [place] [address] 83528 2547 Nov, [facility] [address] [place] [address] 61440- 8486 Nov, Other chronic pain G89.29 [facility] [address] [place] [address] 30402- 6746 Nov, Other chronic pain G89.29 [facility] [address] [place] [address] 88677- 9536 Oct, [facility] [address] [place] [address] 90588- 2546 Oct, Other chronic pain G89.29 [facility] [address] [place] [id number] Oct, Weakness R53.1 ; Macrocytic anemia D53.9 ; Discolored skin L81.9 ; Other chronic pain G89.29 ; Dysuria R30.0 and Hayes catheter in place Z92.89 [facility] [address] [place] [address] 00445- 6394 Oct, Other chronic pain G89.29 [facility] [id number] [id number] Sep, [facility] [id number] [place] [address] 59450- 2194 Sep, [facility] [address] [place] [address] 67428- 5884 Sep, [facility] [id number] [place] [address] [id number] Sep, [facility] [id number] [place] [address] [id number] Sep, Other chronic pain G89.29 [facility] [id number] [place] [address] 84155- 6398 Sep, [facility] [id number] [place] [address] [id number] Sep, Other chronic pain G89.[address] [facility] [address] [facility] [place] [id number] Sep, Chronic urinary tract infection N39.0 ; Other chronic pain G89.29 ; Chronic kidney disease (CKD), unspecified stage N18.9 ; Type 2 diabetes mellitus without complication, unspecified senior care insulin use status E11.9 ; Hypothyroidism, unspecified type E03.9 ; Depression, unspecified depression type F32.9 ; Cataract H26.9 ; Obstructive sleep apnea syndrome G47.33 ; Atrial fibrillation, unspecified type I48.91 ; History of femur fracture Z87.81 and [address] catheter in place Z92.89 [facility] [address] [address] 120[address] Sep, [facility] [address] [place] [address] 41281- 6467 Aug, [facility] [address] [address] 99[address] Aug, Other chronic pain G89.29 [facility] [address] [address] 4[address] Aug, [facility] [address] [place] [address] 24106- 6881 Aug, [facility] [id number] [place] [address] [id number] Aug, [facility] [id number] [place] [address] 18646- 7438 Aug, [facility] [id number] [place] [address] 43360- 4409 Aug, Type 2 diabetes mellitus without complication, unspecified senior care insulin use status E11.9 [facility] [address] [place] [address] 43641- 4918 Aug, Other chronic pain G89.29 [facility] [address] [address] 4243 18 Aug, 2017 [facility] [address] [place] [address] 35857- 0264 16 Aug, 2017 [facility] [address] [place] [address] 02197- 8383 22 Jul, 2017 Other chronic pain G89.29 [facility] [address] [address] 3042 19 Jul, 2017 [facility] [address] [address]- 3705 19 Jul, 2017 Dark brown urine R82.99 [facility] [address] [address] 5266 19 Jul, 2017 Dark brown urine R82.99 [facility] [address] [place] [address] 33857- 8034 Jul, [facility] [address] [place] [address] 59838- 5979 Jun, Other chronic pain G89.29 [facility] [id number] [place] [address] 31195- 8316 Jun, Type 2 diabetes mellitus without complication, unspecified senior care insulin use status E11.9 [facility] [id number] [place] [address] 86801- 9888 May, Candidiasis, intertrigo B37.2 [facility] [id number] [place] [address] 47510- 6412 May, Other chronic pain G89.29 [facility] [id number] [place] [address] 49217- 2558 May, [facility] [id number] [place] [address] 70469- 2542 May, [facility] [id number] [place] [address] 07091- 5007 May, Candidiasis, intertrigo B37.2 [facility] [id number] [place] [address] 98800- 7753 May, Atrial fibrillation, unspecified type I48.91 [facility] [id number] [place] [address] 35062- 1412 May, Hypothyroidism, unspecified type E03.9 and Decreased renal function N28.9 [facility] [id number] [place] [address] 23515- 8011 May, Type 2 diabetes mellitus without complication, 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 [facility] [id number] [place] [address] 54850- 0586 May, Dental examination Z01.20 [facility] [id number] [place] [address] 33760- 6162 May, Chronic kidney disease (CKD), unspecified stage N18.9 ; Type 2 diabetes mellitus without complication, 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 ; Hypothyroidism, unspecified type E03.9 ; Depression, unspecified depression type F32.9 ; Anemia, unspecified type D64.9 and Ulcer L98.499 [facility] [address] [address] 5[address] May, [facility] [id number] [place] [address] 50259- 8453 Apr, Other chronic pain G89.29 [facility] [id number] [place] [address] 17764- 6773 Apr, Other chronic pain G89.29 [facility] [id number] [place] [address] 50859- 0460 March, [facility] [id number] [place] [address] 39821- 7151 March, [facility] [id number] [place] [address] 22609- 9461 March, [facility] [id number] [place] [address] 41881- 3823 March, Other chronic pain G89.29 [facility] [id number] [place] [address] 48173- 8250 March, [facility] [address] [address]- 0981 Feb, [facility] [id number] [place] [address] 05278- 9322 Feb, Type 2 diabetes mellitus without complication, 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 ; Candidiasis, intertrigo B37.2 ; Decubitus ulcer of left buttock, unstageable L89.320 and Pressure ulcer of contiguous region involving right buttock and hip, unspecified ulcer stage L89.40 [facility] [address] [address]- 6452 Feb, Atrial fibrillation, unspecified type I48.91 [facility] [address] [facility] [id number] [address]- 9815 Feb, [facility] [address] [facility] [id number] [place] [address] 22923- 2336 Feb, [facility] [address] [address]- 1328 Feb, Other chronic pain G89.29 [facility] [id number] [place] [address] 00452- 5373 Jan, Other chronic pain G89.29 [facility] [address] [facility] [id number] [place] [address] 86197- 8986 Dec, [facility] [id number] [place] [address] 09411- 7525 Dec, Lethargy R53.83 [facility] [id number] [place] [address] 34539- 7450 17 Dec, 2016 [facility] [address] [address]- 5252 Dec, Other chronic pain G89.29 [facility] [address], [place] [address]- 0292 Nov, [facility] [address] [address]- 5606 Nov, [facility] [address], [place] [address]- 0542 Nov, Other chronic pain G89.29 [facility] [address] [facility] [id number] [address]- 5297 Nov, [facility] [address], [place] [address]- 2650 Nov, [facility] [address] [address]- 3558 Nov, [facility] [id number] [place] [address] 97587- 8358 Oct, Cough R[address] [facility] [id number] [place] [address] 76421- 7211 Oct, Urinary tract infection, site not specified N39.0 [facility] [address] [place] [address] 79150- 8428 16 Oct, 2016 Other chronic pain G89.29 [facility] [id number] [place] [address] 93625- 6892 15 Oct, 2016 Type 2 diabetes mellitus without complication, 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 ; Other [...] J30.89 ; Nausea R11.0 and Candidiasis B37.9 [facility] [address] [place] [address] 64032- 4763 Oct, [facility] [address] [place] [address] 28495- 7139 Oct, [facility] [address] [place] [address] 47348- 6823 Oct, [facility] [address] [place] [address] 73406- 1253 Oct, Chronic kidney disease (CKD), unspecified stage N18.9 [facility] [id number] [place] [address] 07062- 7285 Oct, [facility] [address] [place] [address] 60014- 6054 Sep, Other chronic pain G89.29 [facility] [address] [address]- 7691 Sep, Chronic kidney disease (CKD), unspecified stage N18.9 and Senile cataract of right eye, unspecified age-related cataract type H25.9 [facility] [address], [place] [address]- 2570 Sep, [facility] [id number] [place] [address] 26393- 8219 Sep, [facility] [id number] [place] [address] 13921- 1679 Sep, [facility] [id number] [place] [address] 10311- 5682 Sep, [facility] [id number] [place] [address] 12737- 7242 Sep, [facility] [id number] [place] [address] 57457- 5038 Aug, [facility] [address], [place] [address]- 6022 Aug, [facility] [id number] [place] [address] 89005- 8131 Aug, [facility] [address], [place] [address]- 6617 Aug, Encounter to establish care Z76.89 ; Other chronic pain G89.29 ; Chronic kidney disease (CKD), unspecified stage N18.9 ; Obstructive sleep apnea syndrome G47.33 ; Type 2 diabetes mellitus without complication, unspecified senior care insulin use status E11.9 ; Urinary incontinence, unspecified type R32 ; Depression, unspecified depression type F32.9 ; History of femur fracture Z87.81 ; History of fractured kneecap Z87.81 ; Hypothyroidism , unspecified type E03.9 ; Cataract H26.9 and Gastroesophageal reflux disease without esophagitis K21.9 [facility] [address] [address]- 7711 14 Aug, 2016 [facility] [address] [address]- 9408 Aug, Urinary incontinence, unspecified type R32 [facility] [address] [place] [address] 08714- 4538 Aug, [facility] [address] [place] [address] 01753- 4028 Jul, [address] [id number] Jul, Type 2 diabetes mellitus without complication, 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 ; Chronic [...] E03.9 and Constipation, unspecified constipation type K59.00 [facility] [address] [place] [address] 95166- 6991 Jul, [facility] [address] [place] [address] 38272- 7755 16 Jul, [address] [id number] Jul, Anemia, unspecified type D64.9 ; Acute renal failure, unspecified acute renal failure type N17.9 ; Other chronic pain G89.29 ; Obstructive sleep apnea syndrome G47.33 and Type 2 diabetes mellitus without complication, 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 [facility] [address] [place] [address] 20200- 2905 13 Jul, 2016 [facility] [address] [place] [address] 18279- 0214 Jul, [facility] [id number] [address]- 3416 Jul, [facility] [address] [id number] [place] [address]- 4770 Jul, [facility] [address] [facility] [id number] [place] [address]- 2547 Jul, [facility] [address] [place] [id number] Jun, Other chronic pain G89.29 ; Hayes catheter in place Z92.89 ; Chronic kidney disease (CKD), unspecified stage N18.9 and Blisters of multiple sites R23.8 [facility] [address] [id number] [place] [address]- 5613 Jun, [facility] [address] [facility] [id number] [place] [address]- 4413 Jun, [facility] [address] [facility] [id number] [place] [address]- 4833 Jun, [facility] [address] [id number] [place] [address]- 3674 Jun, [facility] [address] [facility] [id number] [place] [address]- 2096 Jun, [facility] [address] [facility] [id number] [place] [address]- 8940 Jun, [facility] [address] [facility] [id number] [place] [address]- 3315 Jun, [facility] [address] [id number] [place] [address] 2544 Jun, [facility] [address] [facility] [id number] [place] [address]- 6868 Jun, [facility] [address] [facility] [id number] [place] [address]- 2540 Jun, [facility] [address] [facility] [id number] [place] [address]- 7663 Jun, [facility] [address] [facility] [id number], [place] [address]- 5602 May, [facility] [address] [facility] [id number], [place] [address]- 7169 May, [facility] [address] [facility] [id number], [place] [address]- 3642 May, Other chronic pain G89.29 [facility] [address] [place] [id number] May, Encounter to establish care Z76.89 ; Type 2 diabetes mellitus without complication, 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 ; Hypothyroidism, [...] HISTORY Never Assessed REASON FOR VISIT Lab (walk-in) PLAN OF CARE VITAL SIGNS MEDICATIONS Unknown Medications RESULTS Name Result Date Reference Range UA LONG DIP (IN HOUSE) 2017-08-10 Lot # Exp date Clarity Color Odor GLU SARAHY KET SG BLO pH Protein URO NIT LUCIAN Lot # Exp date CULTURE, URINE 2017-08-10 Urine Culture, Routine Final report Result 1 UA LONG DIP (IN HOUSE) 2017-08-10 Lot # [id number] Exp date 05/2018 Clarity Turbid Color Mandy Odor Yes GLU Negative SARAHY Negative KET Negative SG 1.015 BLO 3+ pH 8.5 Protein 3+ URO 0.2 NIT Positive LUCIAN 3+ Lot # [id number] Exp date 02/2018 PROCEDURES Procedure Date Ordered Result Body Site LAB NOT BILLED BY [facility] Aug 10, 2017 URINALYSIS, AUTO, W/O SCOPE Aug 10, 2017 INSTRUCTIONS MEDICATIONS ADMINISTERED No Known Medications MEDICAL [...]
--- OUTSIDE RECORDS SUMMARY | 2018-09-17 19:36 | XMS REPORT ---
Author Author LATONYA KIM Organization [facility] Address [address] [place] [address] Care Team Providers Care Channel Director Name Role Phone LATONYA KIM Unavailable PROBLEMS Type Condition ICD9-CM Code IMC93-AX Code Onset Dates Condition Status SNOMED Code Problem Atrial fibrillation, unspecified type I48.91 Active 29052495 Problem Decreased renal function N28.9 Active 01524945 Problem Ulcer L98.499 Active 977621751 Problem Venous stasis dermatitis of both lower extremities I87.2 Active 94707534 Problem Urinary incontinence, unspecified type R32 Active 280786075 Problem Stage 4 chronic kidney disease N18.4 Active 223816687 Problem Morbid obesity due to excess calories E66.01 Active 747884996 Problem Closed fracture of left patella, unspecified fracture morphology, sequela S82.002S Active 30060653 Problem Bladder spasms N32.89 Active 753908150 Problem Chronic fatigue R53.82 Active 04817130 Problem Primary insomnia F51.01 Active 7760073 Problem Anxiety F41.9 Active 37261476 Problem Type 2 diabetes mellitus without complication, 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 Active 84481789 Problem Depression, unspecified depression type F32.9 Active 21903970 Problem Cataract H26.9 Active 302012675 Problem Chronic kidney disease (CKD), unspecified stage N18.9 Active 135070076 Problem Gastroesophageal reflux disease without esophagitis K21.9 Active 659629859 Problem Other chronic pain G89.29 Active 68668698 Problem Hypothyroidism, unspecified type E03.9 Active 94784202 Problem Restless leg syndrome G25.81 Active 61391194 Problem Obstructive sleep apnea syndrome G47.33 Active 99109760 Problem Perennial allergic rhinitis, unspecified allergic rhinitis trigger J30.89 Active 060458467 ALLERGIES No Information ENCOUNTERS Encounter Location Date Diagnosis [facility] [address] [facility] [id number] [address] Apr, [place] [address], [place] [address] Apr, Primary insomnia F51.01 [place] [address] [place] [address] 07370- 8096 Apr, [place] [address] [place] [id number] [place] [address] 60218- 5576 March, Other chronic pain G89.29 Via [facility] [address] [place] [id number] March, Arthralgia, unspecified joint M25.50 ; Abnormal urine sediment R82.90 ; Venous stasis dermatitis of both lower extremities I87.2 ; Stage 4 chronic kidney disease N18.4 and Cataract of right eye, unspecified cataract type H26.9 [place] [id number] [place] [address] 32038- 1755 March, Primary insomnia F51.01 Via [facility] [address] [place] [id number] March, Cervicalgia M54.2 ; Acute pain of right shoulder M25.511 and Pain of left femur M89.8X5 [place] [address] [place] [address] 27023- 1000 March, [place] [address] [place] [id number] [place] [address] 84445- 6903 March, Other chronic pain G89.29 [place] [address] [place] [id number] [place] [address] 26293- 7477 Feb, Via [facility] [address] [place] [id number] Feb, Leg swelling M79.89 [place] [address] [place] [id number] [place] [address] 22056- 7950 Feb, Primary insomnia F51.01 [facility] [address] [place] [id number] Feb, Fever in other diseases R50.81 and Intermittent left lower quadrant abdominal pain R10.32 [place] [address], [place] [address] 2511 Feb, [place] [address] [place] [id number] [place] [address] 38315- 0484 Feb, [place] [address] [place] [address] 93152- 9485 Feb, Depression, unspecified depression type F32.9 ; Hypothyroidism, unspecified type E03.9 ; Type 2 diabetes mellitus without complication, 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 and Anxiety F41.9 [place] [address] [place] [id number] [place] [address] 48587- 9765 Feb, Other chronic pain G89.29 [place] [address] [place] [id number] [place] [id number] Jan, Other chronic pain G89.29 [place] [address] [place] [id number] [place] [address] 85815- 1255 Jan, Bladder spasms N32.89 [place] [address] [place] [id number] [place] [address] 30801- 8154 Jan, Bladder spasms N32.89 [place] [address] [place] [id number] [place] [address] 42570- 8699 Dec, Bladder spasms N32.89 [place] [address] [place] [address] 64467- 1334 Dec, Depression, unspecified depression type F32.9 [place] [address], [place] [address] Dec, Via [facility] [address] [place] [id number] Dec, Hypothyroidism, unspecified type E03.9 ; Depression, unspecified depression type F32.9 ; Other chronic pain G89.29 ; Urinary retention R33.9 and Atrial fibrillation, unspecified type I48.91 [place] [address] [id number] [id number] 07 Dec, 2017 [facility] [id number] [place] [id number] Dec, Other chronic pain G89.29 [facility] [address] [id number] [address] Nov, [facility] [address] [place] [id number] [place] [address] [id number] Nov, Other chronic pain G89.29 [facility] [address] [place] [address] 192520- 5894 Nov, Other chronic pain G89.29 [facility] [address] [place] [address] 44196026- 2440 Nov, [facility] [address] [place] [address] 19042- 3737 Nov, [facility] [address] [place] [address] 42393- 7702 Nov, Other chronic pain G89.29 [facility] [address] [place] [address] 94596- 2552 Nov, Other chronic pain G89.29 [facility] [address] [place] [address] 11905- 4822 Oct, [facility] [address] [place] [address] 99371- 9280 Oct, Other chronic pain G89.29 Via [facility] [address] [place] [id number] Oct, Weakness R53.1 ; Macrocytic anemia D53.9 ; Discolored skin L81.9 ; Other chronic pain G89.29 ; Dysuria R30.0 and Hayes catheter in place Z92.89 [facility] [address], [place] [address] 46[address] 07 Oct, 2017 Other chronic pain G89.29 [facility] [address] [id number] [id number] Sep, [facility] [address] [facility] [id number], [place] [address] Sep, [facility] [address] [place] [id number] [address] [address] Sep, [facility] [address] [id number] [address] Sep, [facility] [address] [place] [id number] [place] [address] [id number] Sep, Other chronic pain G89.29 [facility] [address], [place] [address] 5428 Sep, [facility] [address] [id number] [address] Sep, Other chronic pain G89.29 Via [facility] [address] [place] [id number] Sep, Chronic urinary tract infection N39.0 ; [...] Z87.81 and Hayes catheter in place Z92.89 [facility] [address] [place] [id number], [place] [address] 6373 Sep, [facility] [address] [place] [id number], [place] [address] 7961 Aug, [facility] [address] [place] [id number], [place] [address]- 8105 Aug, Other chronic pain G89.29 [facility] [address] [place] [id number] 1359 Aug, [facility] [address], [place] [address]- 0725 Aug, [facility] [place] [facility] [address] [place] [id number] [place] [address] [id number] Aug, [facility] [place] [facility] [address] [place] [id number], [place] [address] 4321 Aug, [facility] [address] [place] [address] 56456- 2710 Aug, Type 2 diabetes mellitus without complication, unspecified longterm insulin use status E11.9 [facility] [address], [place] [address] 8439 Aug, Other chronic pain G89.29 [facility] [address], [place] [address] 3184 18 Aug, 2017 [facility] [address] [place] [address] 01975- 0848 Aug, [facility] [address], [place] [address]- 5156 22 Jul, 2017 Other chronic pain G89.29 [facility] [address], [place] [address] 2546 19 Jul, 2017 [facility] [place] [facility] [address], [place] [address] 2547 19 Jul, 2017 Dark brown urine R82.99 [facility] [address], [place] [address] 2545 19 Jul, 2017 Dark brown urine R82.99 [facility] [address] [place] [id number], [place] [address] 2546 14 Jul, 2017 [facility] [address], [place] [address]- 254 Jun, Other chronic pain G89.29 [facility] [address], [place] [address]- 2540 Jun, Type 2 diabetes mellitus without complication, unspecified longterm insulin use status E11.9 [place] [address] [place] [address] 85839- 8106 May, Candidiasis, intertrigo B37.2 [place] [address] [place] [id number] [place] [address] 08393- 0361 May, Other chronic pain G89.29 [place] [address] 07979- 6755 May, [place] [address] 01033- 7545 May, [place] [address] 93034- 6493 May, Candidiasis, intertrigo B37.2 [place] [address] 42005- 1706 May, Atrial fibrillation, unspecified type I48.91 [place] [address] [place] [id number] [place] [address] 37034- 0258 May, Hypothyroidism, unspecified type E03.9 and Decreased renal function N28.9 [place] [address] [place] [id number] [place] [address] 18381- 7752 May, Type 2 diabetes mellitus without complication, unspecified longterm insulin use status E11.9 [place] [address] [place] [id number] [place] [address] 52508- 2501 May, Dental examination Z01.20 [place] [address] [place] [id number] [place] [address] 87779- 2875 May, Chronic kidney disease (CKD), unspecified stage N18.9 ; Type 2 diabetes mellitus without complication, 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 ; Hypothyroidism, unspecified type E03.9 ; Depression, unspecified depression type F32.9 ; Anemia, unspecified type D64.9 and Ulcer L98.499 [place] [address] 90075- 6935 May, [facility] [address] [place] [id number], [place] [address]- 3989 Apr, Other chronic pain G89.29 [facility] [address], [place] [address]- 1211 Apr, Other chronic pain G89.29 [facility] [address], [place] [address]- 1722 March, [facility] [address] [id number], [place] [address]- 2647 March, [facility] [address] [place] [id number] [place] [address] 67096- 3928 March, [facility] [address] [place] [id number] [place] [address] 49276- 0820 March, Other chronic pain G89.29 [facility] [address] [place] [id number] [place] [address] 82495- 3483 March, [facility] [address], [place] [address]- 1330 Feb, [facility] [address] [place] [address] 84803- 6002 Feb, Type 2 diabetes mellitus without complication, 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 ; Candidiasis, intertrigo B37.2 ; Decubitus ulcer of left buttock, unstageable L89.320 and Pressure ulcer of contiguous region involving right buttock and hip, unspecified ulcer stage L89.40 [facility] [address], [place] [address]- 8682 Feb, Atrial fibrillation, unspecified type I48.91 [facility] [address], [place] [address]- 1334 Feb, [facility] [address], [place] [address]- 7425 Feb, [facility] [address], [place] [address]- 8061 Feb, Other chronic pain G89.29 [facility] [address], [place] [address]- 7350 Jan, Other chronic pain G89.29 [facility] [address], [place] [address]- 7431 Dec, [facility] [address] [place] [address] 47098- 9107 Dec, Lethargy R53.83 [facility] [address] [place] [address] 26943- 3556 17 Dec, 2016 [facility] [address] [place] [address] 64091- 8006 Dec, Other chronic pain G89.29 [facility] [address] [place] [address] 59443- 4533 Nov, [facility] [address], [place] [address]- 4593 Nov, [facility] [address] [place] [address] 48620- 9910 Nov, Other chronic pain G89.29 [facility] [address], [place] [address]- 7136 Nov, [facility] [address], [place] [address]- 5804 Nov, [facility] [address], [place] [address]- 5514 Nov, [facility] [address] [place] [address] 84082- 4130 Oct, Cough R05 [facility] [address], [place] [address]- 7984 Oct, Urinary tract infection, site not specified N39.0 [facility] [address] [place] [address] 81395- 0935 16 Oct, 2016 Other chronic pain G89.29 [place] [address] [place] [id number] [place] [address] 24116- 6122 15 Oct, 2016 Type 2 diabetes mellitus [...] J30.89 ; Nausea R11.0 and Candidiasis B37.9 [place] [address] 02470- 2261 Oct, [place] [address] 20470- 5909 Oct, [place] [address] 89580- 5545 Oct, [place] [address] 60679- 5530 Oct, Chronic kidney disease (CKD), unspecified stage N18.9 [place] [address] [place] [id number] [place] [address] 70866- 8275 Oct, [place] [address] [place] [id number] [place] [address] 74976- 8786 Sep, Other chronic pain G89.29 [place] [address] 19855- 8742 Sep, Chronic kidney disease (CKD), unspecified stage N18.9 and Senile cataract of right eye, unspecified age-related cataract type H25.9 [place] [address] 16052- 5504 Sep, [facility] [address], [place] [address]- 0390 Sep, [facility] [address], [place] [address]- 1174 Sep, [facility] [address], [place] [address]- 4939 Sep, [facility] [address] [place] [id number] [place] [address] 60476- 6212 Sep, [facility] [address] [place] [address] 93514- 5171 Aug, [facility] [address] [place] [id number] [place] [address] 45431- 0811 Aug, [facility] [address], [place] [address]- 4866 Aug, [facility] [address], [place] [address]- 1494 Aug, Encounter to establish care Z76.89 ; Other chronic pain G89.29 ; Chronic kidney disease (CKD), unspecified stage N18.9 ; Obstructive sleep apnea syndrome G47.33 ; Type 2 diabetes mellitus without complication, 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 ; Urinary incontinence, unspecified type R32 ; Depression, unspecified depression type F32.9 ; History of femur fracture Z87.81 ; History of fractured kneecap Z87.81 ; Hypothyroidism , unspecified type E03.9 ; Cataract H26.9 and Gastroesophageal reflux disease without esophagitis K21.9 [facility] [address], [place] [address]- 2233 Aug, [facility] [address], [place] [address]- 3636 Aug, Urinary incontinence, unspecified type R32 [facility] [address], [place] [address]- 7435 Aug, [facility] [address] [place] [id number] [place] [address] 31869- 1280 Jul, [facility] [place] [address] [place] [id number] Jul, Type 2 diabetes mellitus without complication, [...] E03.9 and Constipation, unspecified constipation type K59.00 [place] [id number] [place] [address] 30928- 9669 Jul, [place] [id number] [place] [address] 95713- 7669 Jul, [facility] [place] [address] [place] [id number] Jul, Anemia, unspecified type D64.9 ; Acute renal failure, unspecified acute renal failure type N17.9 ; Other chronic pain G89.29 ; Obstructive sleep apnea syndrome G47.33 and Type 2 diabetes mellitus without complication, 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 [place] [address] [place] [address] 76569- 0224 Jul, [place] [address] [place] [id number] [place] [address] 90391- 1081 Jul, [place] [address] [place] [id number] [place] [address] 42534- 0639 Jul, [place] [address] [place] [id number] [place] [address] 92381- 4823 Jul, [place] [address] [place] [id number] [place] [address] 48780- 3352 Jul, [facility] [address] [place] [id number] Jun, Other chronic pain G89.29 ; Hayes catheter in place Z92.89 ; Chronic kidney disease (CKD), unspecified stage N18.9 and Blisters of multiple sites R23.8 [facility] [address] [id number] [place] [address]- 3761 Jun, [facility] [address] [id number] [place] [address]- 5515 Jun, [facility] [address] [id number] [place] [address]- 2631 Jun, [facility] [address] [id number] [place] [address]- 4544 Jun, [facility] [address] [id number] [place] [address]- 6673 Jun, [facility] [address] [id number] [place] [address]- 3191 Jun, [facility] [address] [id number] [place] [address]- 3595 Jun, [facility] [address] [facility] [id number] [place] [address]- 4561 Jun, [facility] [address] [id number] [place] [address]- 0092 Jun, [facility] [address] [id number] [place] [address]- 8727 Jun, [facility] [address] [id number] [place] [address]- 7094 Jun, [facility] [address] [facility] [id number] [place] [address]- 6942 May, [facility] [address] [id number] [place] [address]- 3098 May, [facility] [address] [facility] [id number] [place] [address]- 6306 May, Other chronic pain G89.29 [facility] [address] [place] [id number] May, Encounter to establish care Z76.89 ; [...] 4 times a day 1 tablet 6h Nov, 9 Dec, 2017 28 days Active RESULTS No Results PROCEDURES [...] Acute Kidney Injury 08/05/16 Hospitalization History UTI, Sepsis--[facility] Hospitalization History Chest pain/SOB/A-fib 02/2017 Hospitalization History Chest pain-[facility] 04/13/17 Hospitalization History UTI, respiratory failure, altered mental status-[facility] 09/13/17
--- OUTSIDE RECORDS SUMMARY | 2018-09-17 19:37 | XMS REPORT ---
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 Name Role Phone LATONYA KIM Unavailable PROBLEMS Type Condition ICD9-CM Code [id number] Code Onset Dates Condition Status SNOMED Code Problem Cataract H26.9 Active 920843877 Problem Restless leg syndrome G25.81 Active 85178704 Problem Other chronic pain G89.29 Active 07812425 Problem Bladder spasms N32.89 Active 665779115 Problem Chronic fatigue R53.82 Active 40944541 Problem Atrial fibrillation, unspecified type I48.91 Active 16190053 Problem Perennial allergic rhinitis, unspecified allergic rhinitis trigger J30.89 Active 955760001 Problem Decreased renal function N28.9 Active 14980474 Problem Ulcer L98.499 Active 869549856 Problem Morbid obesity due to excess calories E66.01 Active 154982092 Problem Urinary incontinence, unspecified type R32 Active 329058055 Problem Closed fracture of left patella, unspecified fracture morphology, sequela S82.002S Active 40731385 Problem Depression, unspecified depression type F32.9 Active 11897713 Problem Hypothyroidism, unspecified type E03.9 Active 21412986 Problem Chronic kidney disease (CKD), unspecified stage N18.9 Active 555815518 Problem Obstructive sleep apnea syndrome G47.33 Active 93782167 Problem Type 2 diabetes mellitus without complication, 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 Active 63481135 Problem Gastroesophageal reflux disease without esophagitis K21.9 Active 938690266 ALLERGIES No Information ENCOUNTERS Encounter Location Date Diagnosis [facility] [address] [id number] [id number] Jan, Other chronic pain G89.29 [facility] [address] [facility] [id number] [address] Jan, Bladder spasms N32.89 [facility] [address] [address] Jan, Bladder spasms N32.89 [facility] [address] [address] 6[address] Dec, Bladder spasms N32.89 [facility] [address] [address] Dec, Depression, unspecified depression type F32.9 [facility] [address] [address] Dec, [facility] [address] [place] [id number] Dec, Hypothyroidism, unspecified type E03.9 ; Depression, unspecified depression type F32.9 ; Other chronic pain G89.29 ; Urinary retention R33.9 and Atrial fibrillation, unspecified type I48.91 [facility] [address] [id number] [id number] Dec, [facility] [id number] [place] [id number] Dec, Other chronic pain G89.29 [facility] [address] [id number] [id number] Nov, [facility] [address] [id number] [id number] Nov, Other chronic pain G89.29 [facility] [id number] [address] Nov, Other chronic pain G89.29 [facility] [address] [address] Nov, [facility] [address] [address] Nov, [facility] [address] [address] 4527 Nov, Other chronic pain G89.29 [facility] [address] [facility] [id number] [place] [address] Nov, Other chronic pain G89.29 [facility] [address] [facility] [id number] [address] Oct, [facility] [address] [id number] [address] 75[address] Oct, Other chronic pain G89.29 [facility] [address] [place] [id number] Oct, Weakness R53.1 ; Macrocytic anemia D53.9 ; Discolored skin L81.9 ; Other chronic pain G89.29 ; Dysuria R30.0 and Hayes catheter in place Z92.89 [facility] [address] [id number] [address] Oct, Other chronic pain G89.29 [facility] [id number] [place] [id number] Sep, [facility] [address] [address] Sep, [facility] [address] [address] 8242 Sep, [facility] [address] [id number] [id number] Sep, [facility] [id number] [place] [id number] Sep, Other chronic pain G89.29 [facility] [address] [facility] [id number] [address] 16[address] Sep, [facility] [id number] [place] [id number] Sep, Other chronic pain G89.29 [facility] [address] [place] [id number] Sep, Chronic urinary tract infection N39.0 ; [...] place Z92.89 [facility] [id number] [place] [address] 10442- 8129 Sep, [facility] [id number] [place] [address] 24617- 5587 Aug, [facility] [address] [address] Aug, Other chronic pain G89.29 [facility] [id number] [place] [address] 71700- 3837 Aug, [facility] [id number] [place] [address] 26798- 1498 Aug, [facility] [address] [id number] Aug, [facility] [id number] [place] [address] 77849- 8414 Aug, [facility] [id number] [place] [address] 17471- 0997 Aug, Type 2 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 without complication, 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 [facility] [id number] [place] [address] 54148- 1482 Aug, Other chronic pain G89.29 [facility] [address] [address] 6802 Aug, [facility] [id number] [place] [address] 72739- 2029 Aug, [facility] [address] [address]15 Jul, Other chronic pain G89.29 [facility] [address] [address] 8[address] Jul, [facility] [address] [place] [address] 38971- 1901 Jul, Dark brown urine R82.99 [facility] [address] [place] [address] 96415- 3390 Jul, Dark brown urine R82.99 [facility] [id number] [place] [address] 89596- 4250 14 Jul, 2017 [facility] [id number] [place] [address] 42506- 2820 Jun, Other chronic pain G89.29 [facility] [address] [place] [address] 86883- 7465 Jun, Type 2 diabetes mellitus without complication, unspecified snf insulin use status E11.9 [facility] [id number] [place] [address] 91424- 5256 May, Candidiasis, intertrigo B37.2 [address] [facility] [id number] [place] [address] 90187- 0349 May, Other chronic pain G89.29 [facility] [address] [place] [address] 17365- 5807 May, [facility] [id number] [place] [address] 74092- 4897 May, [facility] [id number] [place] [address] 73643- 0174 May, Candidiasis, intertrigo B37.2 [facility] [id number] [place] [address] 41920- 4600 May, Atrial fibrillation, unspecified type I48.91 [facility] [id number] [place] [address] 90855- 4618 May, Hypothyroidism, unspecified type E03.9 and Decreased renal function N28.9 [facility] [id number] [place] [address] 63299- 0206 May, Type 2 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 without complication, 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 [facility] [id number] [place] [address] 40997- 8414 May, Dental examination Z01.20 [facility] [id number] [place] [address] 31454- 4900 May, Chronic kidney disease (CKD), unspecified stage N18.9 ; Type 2 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 mellitus without complication, 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 ; Hypothyroidism, unspecified type E03.9 ; Depression, unspecified depression type F32.9 ; Anemia, unspecified type D64.9 and Ulcer L98.499 [facility] [id number] [place] [address] 02919- 2588 May, [facility] [id number] [place] [address] 71281- 1923 Apr, Other chronic pain G89.29 [facility] [id number] [place] [address] 83273- 7400 Apr, Other chronic pain G89.29 [facility] [address] [id number] [address] 3624 March, [facility] [id number] [place] [address] 68326- 9631 March, [facility] [id number] [place] [address] 09852- 2515 March, [facility] [id number] [place] [address] 55386- 1676 March, Other chronic pain G89.29 [facility] [id number] [place] [address] 34418- 2915 March, [place] [facility] [address] [place] [address] 8547 Feb, [facility] [id number] [place] [address] 62967- 3549 Feb, Type 2 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 mellitus without complication, 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 ; Candidiasis, intertrigo B37.2 ; Decubitus ulcer of left buttock, unstageable L89.320 and Pressure ulcer of contiguous region involving right buttock and hip, unspecified ulcer stage L89.40 [facility] [id number] [place] [address] 17616- 0486 Feb, Atrial fibrillation, unspecified type I48.91 [facility] [id number] [place] [address] 95265- 5517 Feb, [facility] [id number] [place] [address] 35162- 6948 Feb, [facility] [id number] [place] [address] 51161- 4458 Feb, Other chronic pain G89.29 [facility] [id number] [place] [address] 09159- 2889 Jan, Other chronic pain G89.29 [facility] [id number] [place] [address] 56927- 8131 Dec, [facility] [id number] [place] [address] 44485- 1273 Dec, Lethargy R53.83 [facility] [id number] [place] [address] 64595- 7088 Dec, [facility] [id number] [place] [address] 61681- 5010 10 Dec, 2016 Other chronic pain G89.29 [facility] [id number] [place] [address] 40755- 5629 Nov, [facility] [id number] [place] [address] 46124- 5618 Nov, [facility] [address] [address]- 1718 Nov, Other chronic pain G89.29 [facility] [address] [address]- 5850 Nov, [facility] [address] [address]- 9775 Nov, [facility] [id number] [place] [address] 00994- 4262 Nov, [facility] [id number] [place] [address] 68742- 8775 Oct, Cough R05 [id number] [place] [address] 19821- 3290 Oct, Urinary tract infection, site not specified N39.0 [id number] [place] [address] 43729- 2098 Oct, Other chronic pain G89.29 [address] [facility] [address] [address]- 3737 Oct, Type 2 diabetes mellitus without complication, [...] R11.0 and Candidiasis B37.9 [facility] [address] [address]- 6559 Oct, [address] [address]- 5318 Oct, [facility] [address] [address]- 9945 Oct, [facility] [id number] [place] [address] 34992- 1515 Oct, Chronic kidney disease (CKD), unspecified stage N18.9 [facility] [id number] [place] [address] 98960- 4579 Oct, [facility] [id number] [place] [address] 91188- 1812 Sep, Other chronic pain G89.29 [facility] [id number] [place] [address] 24830- 8871 Sep, Chronic kidney disease (CKD), unspecified stage N18.9 and Senile cataract of right eye, unspecified age-related cataract type H25.9 [facility] [id number] [place] [address] 60716- 1002 Sep, [facility] [id number] [place] [address] 95683- 2663 Sep, [facility] [id number] [place] [address] 63887- 6810 Sep, [facility] [id number] [place] [address] 53979- 3643 Sep, [facility] [id number] [place] [address] 74355- 3296 Sep, [facility] [id number] [place] [address] 30828- 6743 Aug, [facility] [id number] [place] [address], [place]- 2761 Aug, [facility] [address] [id number] [address]- 4750 Aug, [facility] [id number] [place] [address] 18356- 8029 Aug, Encounter to establish care Z76.89 ; [...] and Gastroesophageal reflux disease without esophagitis K21.9 [address] [facility] [id number] [place] [address] 48521- 3959 Aug, [address] [address] 10600- 1105 Aug, Urinary incontinence, unspecified type R32 [id number] [place] [address] 18167- 7790 Aug, [facility] [facility] [id number] [place] [address] 35637- 1872 Jul, [facility] [address] [place] [id number] Jul, Type 2 diabetes mellitus without complication, [...] E03.9 and Constipation, unspecified constipation type K59.00 [address] [id number] [place] [address] 60247- 7848 Jul, [id number] [place] [address] 98998- 7997 Jul, [facility] [address] [place] [id number] Jul, Anemia, unspecified type D64.9 ; Acute renal failure, unspecified acute renal failure type N17.9 ; Other chronic pain G89.29 ; Obstructive sleep apnea syndrome G47.33 and Type 2 diabetes mellitus without complication, 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 [facility] [address] [place] [address] 72130- 1953 Jul, [facility] [id number] [place] [address] 40136- 5898 Jul, [facility] [id number] [place] [address] 85005- 5653 Jul, [facility] [id number] [place] [address] 76680- 1966 Jul, [facility] [id number] [place] [address] 00619- 4256 Jul, [facility] [address] [place] [id number] Jun, Other chronic pain G89.29 ; Hayes catheter in place Z92.89 ; Chronic kidney disease (CKD), unspecified stage N18.9 and Blisters of multiple sites R23.8 [facility] [address] [address]- 5235 Jun, [facility] [address] [address]- 7744 Jun, [facility] [address] [address]- 0147 Jun, [facility] [id number] [place] [address] 95360- 2202 Jun, [facility] [address] [address]- 1117 Jun, [facility] [address] [place] [address] 11717- 9503 Jun, [facility] [id number] [address]- 4334 Jun, [facility] [id number] [address]- 4861 Jun, [facility] [id number] [address]- 2982 Jun, [facility] [id number] [address]- 9396 Jun, [facility] [id number] [address]- 8713 Jun, [facility] [id number] [address]- 5628 May, [facility] [id number] [address]- 0246 May, [facility] [id number] [address]- 1969 May, Other chronic pain G89.29 [facility] [address] [place] [address] May, Encounter to establish care Z76.89 ; [...] HISTORY Never Assessed REASON FOR VISIT Orders from [facility] PLAN OF CARE VITAL SIGNS MEDICATIONS Medication Instructions Dosage Frequency Start Date End Date Duration Status Levothyroxine Sodium 125 MCG Orally Once a day 1 tablet 24h 60 days Active RESULTS No Results PROCEDURES No [...] UTI, Sepsis--[facility] Hospitalization History Chest pain/SOB/A-fib 02/2017 Hospitalization History Chest pain-[facility] 04/13/17 Hospitalization History UTI, respiratory failure, altered mental status-[facility] 09/13/17
--- OUTSIDE RECORDS SUMMARY | 2018-09-17 19:37 | XMS REPORT ---
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 Name Role Phone LATONYA KIM Unavailable PROBLEMS Type Condition ICD9-CM Code DXC45-BB Code Onset Dates Condition Status SNOMED Code Problem Ulcer L98.499 Active 835934987 Problem Chronic fatigue R53.82 Active 41006194 Problem Decreased renal function N28.9 Active 64603800 Problem Nephrolithiasis N20.0 Active 33530500 Problem Chronic kidney disease (CKD), unspecified stage N18.9 Active 365633898 Problem Venous stasis dermatitis of both lower extremities I87.2 Active 04483777 Problem Urinary incontinence, unspecified type R32 Active 991480606 Problem Morbid obesity due to excess calories E66.01 Active 365054161 Problem Anxiety F41.9 Active 62790259 Problem Bladder spasms N32.89 Active 245931391 Problem Stage 4 chronic kidney disease N18.4 Active 335845221 Problem Primary insomnia F51.01 Active 1593656 Problem Hypothyroidism, unspecified type E03.9 Active 66196997 Problem Cataract H26.9 Active 684730149 Problem Type 2 diabetes mellitus without complication, unspecified termite treater helper insulin use status E11.9 Active 09235454 Problem Depression, unspecified depression type F32.9 Active 60929735 Problem Other chronic pain G89.29 Active 46201413 Problem Perennial allergic rhinitis, unspecified allergic rhinitis trigger J30.89 Active 212444685 Problem Obstructive sleep apnea syndrome G47.33 Active 03965470 Problem Restless leg syndrome G25.81 Active 64762574 Problem Closed fracture of left patella, unspecified fracture morphology, sequela S82.002S Active 07991082 Problem Gastroesophageal reflux disease without esophagitis K21.9 Active 353558677 Problem Atrial fibrillation, unspecified type I48.91 Active 27414565 ALLERGIES No Information ENCOUNTERS Encounter Location Date Diagnosis [facility] [address] [place] [address] 20429- 6602 May, Primary insomnia F51.01 [facility] [id number] [place] [address] 38378- 0153 May, [facility] [address] [place] [address] 75297- 9828 May, Primary insomnia F51.01 and Arthralgia, unspecified joint M25.50 [place] [id number] [place] [address] 20384- 8490 May, Other chronic pain G89.29 [facility] [address] [place] [id number] May, Nephrolithiasis N20.0 ; Cataract H26.9 and Macrocytic anemia D53.9 [facility] [facility] [id number] [place] [address] 83043- 5218 May, [facility] [facility] [id number] [place] [address] 92381- 2982 Apr, [facility] [id number] [place] [address] 31614- 7851 Apr, [place] [address] [place] [address] 02010- 9925 Apr, Primary insomnia F51.01 [facility] [address] [place] [address] 23529- 2305 Apr, [place] [id number] [place] [address] 79747- 9777 March, Other chronic pain G89.29 [address] [facility] [address] [place] [id number] March, Arthralgia, unspecified joint M25.50 ; Abnormal urine sediment R82.90 ; Venous stasis dermatitis of both lower extremities I87.2 ; Stage 4 chronic kidney disease N18.4 and Cataract of right eye, unspecified cataract type H26.9 [place] [address] [place] [address] 84298- 6718 March, Primary insomnia F51.01 [facility] [address] [place] [id number] March, Cervicalgia M54.2 ; Acute pain of right shoulder M25.511 and Pain of left femur M89.8X5 [place] [address] [place] [address] 64262- 4636 March, [facility] [facility] [id number] [place] [address] 80868- 7177 March, Other chronic pain G89.29 [facility] [facility] [id number] [place] [address] 90904- 9478 Feb, [facility] [address] [place] [id number] Feb, Leg swelling M79.89 [place] [id number] [place] [address] 21843- 7156 Feb, Primary insomnia F51.01 [facility] [address] [place] [id number] Feb, Fever in other diseases R50.81 and Intermittent left lower quadrant abdominal pain R10.32 [place] [id number] [place] [address] 62914- 6500 Feb, [place] [id number] [place] [address] 43421- 3262 Feb, [facility] [facility] [id number] [place] [address] 72775- 9064 Feb, Depression, unspecified depression type F32.9 ; Hypothyroidism, unspecified type E03.9 ; Type 2 diabetes mellitus without complication, unspecified termite treater helper insulin use status E11.9 and Anxiety F41.9 [place] [id number] [place] [address] 73081- 8919 Feb, Other chronic pain G89.29 [facility] [id number] [place] [id number] Jan, Other chronic pain G89.29 [facility] [id number] [address] Jan, Bladder spasms N32.89 [facility] [address] [address]16 Jan, Bladder spasms N32.89 [facility] [address] [address]- 7167 Dec, Bladder spasms N32.89 [facility] [address] [address]- 2650 Dec, Depression, unspecified depression type F32.9 [facility] [address] [address] Dec, [address] [facility] [address] [facility] [place] [id number] Dec, Hypothyroidism, unspecified type E03.9 ; Depression, unspecified depression type F32.9 ; Other chronic pain G89.29 ; Urinary retention R33.9 and Atrial fibrillation, unspecified type I48.91 [facility] [address] [address] Dec, [facility] [address] [address] Dec, Other chronic pain G89.29 [facility] [address] [address] Nov, [facility] [id number] [address] Nov, Other chronic pain G89.29 [facility] [id number] [address]- 3186 Nov, Other chronic pain G89.29 [facility] [address] [address]- 1016 Nov, [facility] [address] [address]- 0157 Nov, [facility] [id number] [address]- 8270 Nov, Other chronic pain G89.29 [facility] [address] [address] 3916 Nov, Other chronic pain G89.29 [facility] [address] [address]- 8924 14 Oct, 2017 [facility] [address] [place] [address] 41209- 9340 Oct, Other chronic pain G89.29 [facility] [address] [facility] [place] [address] Oct, Weakness R53.1 ; Macrocytic anemia D53.9 ; Discolored skin L81.9 ; Other chronic pain G89.29 ; Dysuria R30.0 and Hayes catheter in place Z92.89 [facility] [address] [address]- 1781 Oct, Other chronic pain G89.29 [facility] [id number] [place] [id number] Sep, [facility] [address] [address]- 1727 Sep, [facility] [id number] [address]- 9962 Sep, [facility] [id number] [place] [id number] Sep, [facility] [id number] [place] [id number] Sep, Other chronic pain G89.29 [facility] [address] [address]- 5777 Sep, [facility] [address] [address] Sep, Other chronic pain G89.[address] [facility] [address] [place] [id number] Sep, Chronic urinary tract infection N39.0 ; Other chronic pain G89.29 ; Chronic kidney disease (CKD), unspecified stage N18.9 ; Type 2 diabetes mellitus without complication, unspecified termite treater helper insulin use status E11.9 ; Hypothyroidism, unspecified type E03.9 ; Depression, unspecified depression type F32.9 ; Cataract H26.9 ; Obstructive sleep apnea syndrome G47.33 ; Atrial fibrillation, unspecified type I48.91 ; History of femur fracture Z87.81 and [address] catheter in place Z92.89 [facility] [address] [address]- 7099 Sep, [facility] [id number] [place] [address] 97939- 2087 Aug, [facility] [id number] [place] [address] 73243- 4369 Aug, Other chronic pain G89.29 [facility] [id number] [place] [address] 54195- 2260 Aug, [facility] [id number] [place] [address] 10810- 2355 Aug, [facility] [id number] [place] [address] [id number] Aug, [facility] [address] [address]- 7713 Aug, [facility] [address] [address]- 0845 Aug, Type 2 diabetes mellitus without complication, unspecified fdc insulin use status E11.9 [facility] [id number] [place] [address] 61164- 1765 Aug, Other chronic pain G89.29 [facility] [address] [address]- 9280 Aug, [facility] [address] [address]- 7153 16 Aug, 2017 [facility] [address], [place] [address]- 8508 22 Jul, 2017 Other chronic pain G89.29 [facility] [address], [place] [address] 2546 Jul, [facility] [address] [address]- 3756 Jul, Dark brown urine R82.99 [facility] [address] [address]- 1809 Jul, Dark brown urine R82.99 [facility] [address], [place] [address]- 2164 14 Jul, 2017 [facility] [address], [place] [address]- 2577 Jun, Other chronic pain G89.29 [facility] [address], [place] [address]- 7854 Jun, Type 2 diabetes mellitus without complication, unspecified fdc insulin use status E11.9 [facility] [address] [address]- 4217 May, Candidiasis, intertrigo B37.2 [facility] [address] [address]- 5933 May, Other chronic pain G89.29 [facility] [address], [place] [address]- 0531 May, [facility] [address] [address]- 4873 May, [facility] [address] [address]- 6541 May, Candidiasis, intertrigo B37.2 [facility] [address] [address]- 2539 May, Atrial fibrillation, unspecified type I48.91 [facility] [address] [place] [address] 90874- 1228 May, Hypothyroidism, unspecified type E03.9 and Decreased renal function N28.9 [facility] [facility] [id number] [place] [address] 22818- 1683 May, Type 2 diabetes mellitus without complication, unspecified termite treater helper insulin use status E11.9 [place] [facility] [id number] [place] [address] 20237- 9148 May, Dental examination Z01.20 [place] [id number] [place] [address] 15564- 5139 May, Chronic kidney disease (CKD), unspecified stage N18.9 ; Type 2 diabetes mellitus without complication, unspecified termite treater helper insulin use status E11.9 ; Hypothyroidism, unspecified type E03.9 ; Depression, unspecified depression type F32.9 ; Anemia, unspecified type D64.9 and Ulcer L98.499 [place] [id number] [place] [address] 57535- 5588 May, [facility] [facility] [id number] [place] [address] 12864- 2190 Apr, Other chronic pain G89.29 [facility] [facility] [id number] [place] [address] 90226- 0540 Apr, Other chronic pain G89.29 [facility] [id number] [place] [address] 50802- 7534 March, [facility] [facility] [id number] [place] [address] 53404- 6367 March, [facility] [facility] [id number] [place] [address] 97107- 4994 March, [place] [facility] [id number] [place] [address] 05074- 2210 March, Other chronic pain G89.29 [place] [address], [place] [address]- 1055 March, [facility] [id number] [place] [address] 07305- 8363 Feb, [facility] [id number] [place] [address] 83120- 0914 Feb, Type 2 diabetes mellitus without complication, unspecified fdc insulin use status E11.9 ; Candidiasis, intertrigo B37.2 ; Decubitus ulcer of left buttock, unstageable L89.320 and Pressure ulcer of contiguous region involving right buttock and hip, unspecified ulcer stage L89.40 [facility] [id number] [place] [address] 42045- 9632 Feb, Atrial fibrillation, unspecified type I48.91 [place] [facility] [id number] [place] [address] 53072- 0491 Feb, [facility] [id number] [place] [address] 56099- 7498 Feb, [facility] [id number] [place] [address] 09025- 6908 Feb, Other chronic pain G89.29 [facility] [id number] [place] [address] 42708- 1313 Jan, Other chronic pain G89.29 [facility] [address] [place] [address] 50950- 3420 Dec, [facility] [address] [place] [address] 67200- 9871 Dec, Lethargy R53.83 [facility] [id number] [place] [address] 48148- 3325 17 Dec, 2016 [facility] [address] [place] [address] 39998- 5664 10 Dec, 2016 Other chronic pain G89.29 [facility] [address] [place] [address]- 3224 Nov, [facility] [address], [place] [address]- 2594 Nov, [facility] [address], [place] [address]- 7248 Nov, Other chronic pain G89.29 [facility] [address], [place] [address]- 1950 Nov, [facility] [address], [place] [address]- 5973 Nov, [facility] [address] [place] [address] 86801- 6358 Nov, [facility] [address] [place] [address] 40741- 0864 Oct, Cough R05 [facility] [address], [place] [address]- 4167 Oct, Urinary tract infection, site not specified N39.0 [facility] [address], [place] [address]- 5795 16 Oct, 2016 Other chronic pain G89.29 [facility] [address], [place] [address]- 9965 15 Oct, 2016 Type 2 diabetes mellitus without complication, unspecified fdc insulin use status E11.9 ; Other chronic [...] J30.89 ; Nausea R11.0 and Candidiasis B37.9 [facility] [address], [place] [address]- 0704 Oct, [facility] [id number], [place] [address]- 3566 Oct, [facility] [id number] [place] [address] 51972- 1252 Oct, [facility] [address] [place] [address] 61885- 0634 Oct, Chronic kidney disease (CKD), unspecified stage N18.9 [facility] [id number] [place] [address] 30090- 4049 Oct, [facility] [id number] [place] [address] 02680- 2165 Sep, Other chronic pain G89.29 [facility] [id number] [place] [address] 12078- 2342 Sep, Chronic kidney disease (CKD), unspecified stage N18.9 and Senile cataract of right eye, unspecified age-related cataract type H25.9 [facility] [address], [place] [address]- 0975 Sep, [facility] [id number] [place] [address] 81570- 2923 Sep, [facility] [address], [place] [address]- 1449 Sep, [facility] [address] [place] [address] 11071- 6467 Sep, [facility] [id number], [place] [address]- 3138 Sep, [facility] [id number] [place] [address] 34269- 1494 Aug, [facility] [id number] [address]- 7373 Aug, [facility] [id number] [place] [address] 91506- 8103 Aug, [place] [address], [place] [address]- 6834 Aug, Encounter to establish care Z76.89 ; [...] and Gastroesophageal reflux disease without esophagitis K21.9 [place] [id number] [place] [address] 96312- 1487 Aug, [place] [id number] [place] [address] 15858- 4722 Aug, Urinary incontinence, unspecified type R32 [place] [id number] [place] [address] 43088- 9248 Aug, [place] [id number] [place] [address] 12261- 4262 Jul, [facility] [address] [place] [id number] Jul, Type 2 diabetes mellitus without complication, unspecified termite treater helper insulin use status E11.9 ; Chronic kidney [...] E03.9 and Constipation, unspecified constipation type K59.00 [address] [place] [address] 82983- 5825 19 Jul, 2016 [facility] [id number], [place] [address]- 4983 16 Jul, [facility] [address] [place] [id number] 14 Jul, 2016 Anemia, unspecified type D64.9 ; Acute renal failure, unspecified acute renal failure type N17.9 ; Other chronic pain G89.29 ; Obstructive sleep apnea syndrome G47.33 and Type 2 diabetes mellitus without complication, unspecified termite treater helper insulin use status E11.9 [facility] [address] [address]- 5876 Jul, [facility] [id number] [place] [address] 54915- 3407 Jul, [facility] [id number] [place] [address] 23084- 3289 Jul, [facility] [address], [place] [address]- 4494 Jul, [facility] [address], [place] [address]- 5658 Jul, [facility] [address] [place] [address] Jun, Other chronic pain G89.29 ; Hayes catheter in place Z92.89 ; Chronic kidney disease (CKD), unspecified stage N18.9 and Blisters of multiple sites R23.8 [facility] [address], [place] [address]- 6693 Jun, [facility] [address], [place] [address]- 8873 Jun, [facility] [address], [place] [address]- 3330 Jun, [facility] [address], [place] [address]- 0000 Jun, [facility] [address] [address]- 7915 Jun, [facility] [id number] [address]- 0427 Jun, [facility] [address], [place] [address]- 5432 Jun, [facility] [id number], [place] [address]- 1063 Jun, [facility] [address], [place] [address]- 0982 Jun, [facility] [id number], [place] [address]- 0587 Jun, [facility] [address], [place] [address]- 8563 Jun, [facility] [address], [place] [address]- 6171 May, [facility] [address], [place] [address]- 7060 May, [facility] [id number], [place] [address]- 3039 May, Other chronic pain G89.29 [facility] [address] [place] [address] May, Encounter to establish care Z76.89 ; Type 2 diabetes mellitus without complication, unspecified termite treater helper insulin use status E11.9 ; Hypothyroidism, [...] SOCIAL HISTORY Never Assessed REASON FOR VISIT [facility] PLAN OF CARE VITAL SIGNS MEDICATIONS Medication Instructions Dosage Frequency Start Date End Date Duration Status Pyridium 200 MG Orally Once a day 1 tablet at bedtime 24h Dec, 30 days Active RESULTS No Results PROCEDURES [...] Acute Kidney Injury 08/05/16 Hospitalization History UTI, Sepsis--[facility] Hospitalization History Chest pain/SOB/A-fib 02/2017 Hospitalization History Chest pain-[facility] 04/13/17 Hospitalization History UTI, respiratory failure, altered mental status-[facility] 09/13/17
--- OUTSIDE RECORDS SUMMARY | 2018-09-17 19:38 | XMS REPORT ---
Author Author ARTI REEVES [facility] Address [address] [place] [address] Care Team Providers Care Concrete Block Mason Name Role Phone LALA ARTI Unavailable PROBLEMS Type Condition ICD9-CM Code FNQ51-AM Code Onset Dates Condition Status SNOMED Code Problem Atrial fibrillation, unspecified type I48.91 Active 48545161 Problem Decreased renal function N28.9 Active 55769649 Problem Ulcer L98.499 Active 113047790 Problem Venous stasis dermatitis of both lower extremities I87.2 Active 05648950 Problem Urinary incontinence, unspecified type R32 Active 909754701 Problem Stage 4 chronic kidney disease N18.4 Active 559947052 Problem Morbid obesity due to excess calories E66.01 Active 677650029 Problem Closed fracture of left patella, unspecified fracture morphology, sequela S82.002S Active 04949572 Problem Bladder spasms N32.89 Active 170699612 Problem Chronic fatigue R53.82 Active 59367090 Problem Primary insomnia F51.01 Active 8153066 Problem Anxiety F41.9 Active 09438283 Problem Type 2 diabetes mellitus without complication, unspecified senior living insulin use status E11.9 Active 97209719 Problem Depression, unspecified depression type F32.9 Active 21610314 Problem Cataract H26.9 Active 663065678 Problem Chronic kidney disease (CKD), unspecified stage N18.9 Active 682551621 Problem Gastroesophageal reflux disease without esophagitis K21.9 Active 719499264 Problem Other chronic pain G89.29 Active 16275573 Problem Hypothyroidism, unspecified type E03.9 Active 22194205 Problem Restless leg syndrome G25.81 Active 35752902 Problem Obstructive sleep apnea syndrome G47.33 Active 12804556 Problem Perennial allergic rhinitis, unspecified allergic rhinitis trigger J30.89 Active 187640274 ALLERGIES No Information ENCOUNTERS Encounter Location Date Diagnosis Via [facility] [address] [place] [id number] March, Arthralgia, unspecified joint M25.50 ; Abnormal urine sediment R82.90 ; Venous stasis dermatitis of both lower extremities I87.2 ; Stage 4 chronic kidney disease N18.4 and Cataract of right eye, unspecified cataract type H26.9 [facility] [id number] [place] [address] 60248- 1650 March, Primary insomnia F51.01 Via [facility] [address] [place] [id number] March, Cervicalgia M54.2 ; Acute pain of right shoulder M25.511 and Pain of left femur M89.8X5 [facility] [address] [address]- 49[address] March, [facility] [id number] [place] [address] 91176- 6700 March, Other chronic pain G89.29 [facility] [id number] [place] [address] 87321- 9788 Feb, Via [facility] [address] [place] [id number] Feb, Leg swelling M79.89 [facility] [id number] [place] [address] 54761- 0665 Feb, Primary insomnia F51.01 [facility] [address] [place] [id number] Feb, Fever in other diseases R50.81 and Intermittent left lower quadrant abdominal pain R10.32 [facility] [place] [id number] [place] [address] 91488- 8523 Feb, [facility] [place] [id number] [place] [address] 43274- 6590 Feb, [facility] [id number] [place] [address] 62334- 3889 Feb, Depression, unspecified depression type F32.9 ; Hypothyroidism, unspecified type E03.9 ; Type 2 diabetes mellitus without complication, 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 and Anxiety F41.9 [facility] [address] [address] Feb, Other chronic pain G89.29 [facility] [id number] [place] [id number] Jan, Other chronic pain G89.29 [facility] [place] [address] [address] 9868 Jan, Bladder spasms N32.89 [facility] [address] [place] [address] 11851933- 0270 Jan, Bladder spasms N32.89 [facility] [id number] [place] [address] 59691- 6221 Dec, Bladder spasms N32.89 [facility] [id number] [place] [address] 73356- 7011 Dec, Depression, unspecified depression type F32.9 [facility] [address] [address] 8[address] Dec, [address] [facility] [place] [address] [place] [id number] Dec, Hypothyroidism, unspecified type E03.9 ; Depression, unspecified depression type F32.9 ; Other chronic pain G89.29 ; Urinary retention R33.9 and Atrial fibrillation, unspecified type I48.91 [facility] [id number] [address] Dec, [facility] [id number] [id number] Dec, Other chronic pain G89.29 [facility] [place] [id number] [id number] Nov, [facility] [id number] [id number] Nov, Other chronic pain G89.29 [facility] [address] [address] 3271 Nov, Other chronic pain G89.29 [facility] [address] [address] 5974 Nov, [facility] [address] [address]- 4997 Nov, [facility] [address] [place] [address] 84170- 4582 Nov, Other chronic pain G89.29 [facility] [address] [place] [address] 50383- 6609 Nov, Other chronic pain G89.29 [facility] [address] [place] [address] 07480- 3008 14 Oct, 2017 [facility] [address] [place] [address] 89590- 2247 Oct, Other chronic pain G89.29 [facility] [address] [place] [id number] 14 Oct, 2017 Weakness R53.1 ; Macrocytic anemia D53.9 ; Discolored skin L81.9 ; Other chronic pain G89.29 ; Dysuria R30.0 and Hayes catheter in place Z92.89 [facility] [address] [address] 07 Oct, 2017 Other chronic pain G89.29 [facility] [id number] [place] [address] Sep, [facility] [address] [address] 0452 Sep, [facility] [address] [place] [address] 065696- 5870 Sep[facility] [id number] [place] [address] [id number] Sep, [facility] [id number] [place] [address] [id number] Sep, Other chronic pain G89.29 [facility] [address] [address] Sep, [facility] [id number] [id number] Sep, Other chronic pain G89.29 [facility] [address] [place] [id number] Sep, Chronic urinary tract infection N39.0 ; Other chronic pain G89.29 ; Chronic kidney disease (CKD), unspecified stage N18.9 ; Type 2 diabetes mellitus without complication, 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 ; Hypothyroidism, unspecified type E03.9 ; Depression, unspecified depression type F32.9 ; Cataract H26.9 ; Obstructive sleep apnea syndrome G47.33 ; Atrial fibrillation, unspecified type I48.91 ; History of femur fracture Z87.81 and Hayes catheter in place Z92.89 [facility] [address] [address] 0[address] Sep, [facility] [address] [address]- 9811 Aug, [facility] [address] [place] [address] 79979- 8114 Aug, Other chronic pain G89.29 [facility] [address] [address]- 0498 Aug, [facility] [address] [address]- 3033 Aug, [facility] [id number] [place] [id number] Aug, [facility] [id number] [address]- 0450 Aug, [facility] [address] [address] 7747 Aug, Type 2 diabetes mellitus without complication, 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 [facility] [address] [address] 4878 19 Aug, 2017 Other chronic pain G89.29 [facility] [address] [address] 6718 18 Aug, 2017 [facility] [address] [place] [address] 60704- 0027 16 Aug, 2017 [facility] [id number] [place] [address] 98992- 3960 22 Jul, 2017 Other chronic pain G89.29 [facility] [address] [place] [address] 86680- 5266 19 Jul, 2017 [facility] [id number] [place] [address] 29453- 0271 19 Jul, 2017 Dark brown urine R82.99 [facility] [address] [place] [address] 60164- 1729 19 Jul, 2017 Dark brown urine R82.99 [facility] [address] [place] [address] 15200- 2762 14 Jul, 2017 [facility] [address] [place] [address] 00892- 2824 Jun, Other chronic pain G89.29 [facility] [address] [address]- 6512 Jun, Type 2 diabetes mellitus without complication, 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 [facility] [address] [address]- 3674 May, Candidiasis, intertrigo B37.2 [facility] [id number] [place] [address] 17085- 5125 May, Other chronic pain G89.29 [facility] [address] [address]- 9649 May, [facility] [id number] [place] [address] 13300- 6484 May, [facility] [address] [place] [address] 59648- 0830 May, Candidiasis, intertrigo B37.2 [facility] [id number] [place] [address] 64221- 7004 May, Atrial fibrillation, unspecified type I48.91 [facility] [id number] [place] [address] 44248- 6965 May, Hypothyroidism, unspecified type E03.9 and Decreased renal function N28.9 [facility] [id number] [place] [address] 28893- 7012 May, Type 2 diabetes mellitus without complication, 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 [facility] [id number] [place] [address] 76927- 3565 May, Dental examination Z01.20 [facility] [id number] [place] [address] 35682- 0212 May, Chronic kidney disease (CKD), unspecified stage N18.9 ; Type 2 diabetes mellitus without complication, 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 ; Hypothyroidism, unspecified type E03.9 ; Depression, unspecified depression type F32.9 ; Anemia, unspecified type D64.9 and Ulcer L98.499 [facility] [address] [place] [address] 42354- 0180 May, [facility] [address] [place] [address] 04364- 0636 Apr, Other chronic pain G89.29 [facility] [id number] [place] [address] 87624- 4627 Apr, Other chronic pain G89.29 [facility] [address] [place] [address] 93327- 5299 March, [facility] [place] [id number] [place] [address] 07100- 0499 March, [facility] [address] [address]- 4729 March, [facility] [id number] [place] [address] 55297- 0272 March, Other chronic pain G89.29 [facility] [id number] [place] [address] 27268- 8054 March, [facility] [id number] [place] [address] 77330- 4115 Feb, [facility] [id number] [place] [address] 21899- 4064 Feb, Type 2 diabetes mellitus without complication, unspecified senior living insulin use status E11.9 ; Candidiasis, intertrigo B37.2 ; Decubitus ulcer of left buttock, unstageable L89.320 and Pressure ulcer of contiguous region involving right buttock and hip, unspecified ulcer stage L89.40 [facility] [address] [place] [address] 72485- 5053 Feb, Atrial fibrillation, unspecified type I48.91 [facility] [id number] [place] [address] 22585- 0447 Feb, [facility] [address] [address]- 3660 Feb, [facility] [id number] [place] [address] 50684- 1309 Feb, Other chronic pain G89.29 [facility] [address] [address]- 4519 Jan, Other chronic pain G89.29 [facility] [id number] [place] [address] 59498- 4562 Dec, [facility] [address] [address]- 3823 Dec, Lethargy R53.83 [facility] [facility] [address] [address]- 4940 17 Dec, 2016 [facility] [address] [address]- 0007 Dec, Other chronic pain G89.29 [facility] [address] [address]- 4247 Nov, [facility] [address] [address]- 6026 Nov, [facility] [address] [address]- 1110 Nov, Other chronic pain G89.29 [facility] [address] [address]- 9220 Nov, [facility] [address] [place] [address] 50878- 2687 Nov, [facility] [address] [address]- 0597 Nov, [facility] [address] [address]- 7483 Oct, Cough R05 [facility] [address] [address]- 9537 Oct, Urinary tract infection, site not specified N39.0 [facility] [address] [address]- 3721 Oct, Other chronic pain G89.29 [facility] [id number] [address]- 4707 Oct, Type 2 diabetes mellitus without complication, 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 ; Other chronic [...] J30.89 ; Nausea R11.0 and Candidiasis B37.9 [facility] [id number] [place] [address] 67532- 6391 Oct, [facility] [address] 62790- 5732 Oct, [facility] [id number] [place] [address] 77848- 7588 Oct, [facility] [address] 01099- 5729 Oct, Chronic kidney disease (CKD), unspecified stage N18.9 [facility] [address] 38411- 3759 Oct, [facility] [address] 75511- 1426 Sep, Other chronic pain G89.29 [facility] [address] 50463- 3614 Sep, Chronic kidney disease (CKD), unspecified stage N18.9 and Senile cataract of right eye, unspecified age-related cataract type H25.9 [facility] [id number] [place] [address] 30521- 2242 Sep, [facility] [place] [id number] [place] [address] 51114- 3003 Sep, [facility] [address] 79953- 2006 Sep, [facility] [id number] [place] [address] 82559- 9155 Sep, [facility] [id number] [place] [address] 70404- 0050 Sep, [place] [address] [address]- 4061 Aug, [place] [id number] [place] [address] 49104- 2455 Aug, [facility] [place] [id number] [place] [address] 80730- 8293 Aug, [facility] [place] [id number] [place] [address] 12892- 6377 Aug, Encounter to establish care Z76.89 ; Other chronic pain G89.29 ; Chronic kidney disease (CKD), unspecified stage N18.9 ; Obstructive sleep apnea syndrome G47.33 ; Type 2 diabetes mellitus without complication, 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 ; Urinary incontinence, unspecified type R32 ; Depression, unspecified depression type F32.9 ; History of femur fracture Z87.81 ; History of fractured kneecap Z87.81 ; Hypothyroidism , unspecified type E03.9 ; Cataract H26.9 and Gastroesophageal reflux disease without esophagitis K21.9 [place] [address] [place] [address] 38366- 3518 Aug, [facility] [place] [id number] [place] [address] 97245- 7020 Aug, Urinary incontinence, unspecified type R32 [facility] [address] [place] [address] 72682- 5962 Aug, [place] [id number] [place] [address] 11730- 8788 Jul, [facility] [address] [place] [id number] Jul, Type 2 diabetes mellitus without complication, [...] E03.9 and Constipation, unspecified constipation type K59.00 [place] [id number] [place] [address] 71682- 8024 Jul, [place] [id number] [place] [address] 76186- 9224 16 Jul, [address] [facility] [place] [id number] 14 Jul, 2016 Anemia, unspecified type D64.9 ; Acute renal failure, unspecified acute renal failure type N17.9 ; Other chronic pain G89.29 ; Obstructive sleep apnea syndrome G47.33 and Type 2 diabetes mellitus without complication, 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 [place] [id number] [place] [address] 92370- 6100 Jul, [facility] [id number] [place] [address] 81695- 8431 Jul, [facility] [place] [id number] [place] [address] 56911- 7419 Jul, [place] [id number] [place] [address] 89278- 5374 Jul, [place] [id number] [place] [address] 35207- 1903 Jul, [facility] [address] [place] [id number] Jun, Other chronic pain G89.29 ; Hayes catheter in place Z92.89 ; Chronic kidney disease (CKD), unspecified stage N18.9 and Blisters of multiple sites R23.8 [place] [id number] [place] [address] 40504- 8922 Jun, [place] [id number] [place] [address] 15576- 9150 Jun, [facility] [address] [facility] [id number] [address]- 2679 Jun, [facility] [address] [facility] [address] [id number] [address]- 7259 Jun, [facility] [address] [facility] [id number] [place] [address]- 2873 Jun, [facility] [address] [facility] [id number] [place] [address]- 4437 Jun, [facility] [address] [facility] [id number] [place] [address]- 6796 Jun, [facility] [address] [facility] [id number] [place] [address]- 2646 Jun, [facility] [id number] [place] [address]- 5744 Jun, [facility] [address] [address]- 8675 Jun, [facility] [id number] [place] [address]- 8115 Jun, [facility] [address] [address]- 8573 May, [facility] [id number] [address]- 6971 May, [facility] [id number] [address]- 7933 May, Other chronic pain G89.29 [facility] [address] [place] [id number] May, [facility] Z76.89 ; Type 2 diabetes [...] HISTORY Never Assessed REASON FOR VISIT Hospital admit/dc PLAN OF CARE VITAL SIGNS MEDICATIONS Medication Instructions Dosage Frequency Start Date End Date Duration Status Evelyn Root 250 MG Orally 2 times a day 1 capsule as needed for upset stomach 12h Active Nystatin 941227 UNIT/GM Externally Twice a day 1 application to affected area 12h Feb, 30 days Active Oxycodone-Acetaminophen 10-325 MG Orally 4 times a day 1 tablet as needed 6h Aug, 28 days Active Amlodipine Besylate 2.5 MG Orally Once a day 1 tablet 24h 90 Active Levothyroxine Sodium 125 MCG Orally Once a day 1 tablet 24h 30 days Active Gabapentin 400 MG Orally 3 times a day 1 capsule 8h 90 days Active MiraLax N/A Orally Once a day 17 gm in 4-8 oz of fluid 24h 20 May, 2016 Active Aspir-81 81 MG Orally Once a day 1 tablet 24h Active Oxygen ... by inhalation route continuous 2L Active Tamsulosin HCl 0.4 MG Orally Once a day 1 capsule 24h 90 days Active Doc-Q-Lace 100 mg Orally Once a day 1 capsule 24h Active Fluticasone Propionate 50 MCG/ACT Nasally twice a day 2 sprays in each nostril 12h 30 Active Oxybutynin Chloride ER 15 MG 1 tablet Once a day Orally 30 day(s) 90 Active Jaret Antifungal 2 % Externally Twice a day 1 application to affected area 12h Active Renvela 800 MG Orally Three times a day 1 tablet with meals 8h 90 days Active Loratadine 10 mg Orally Once a day 1 tablet 24h 90 days Active Redness Reliever Eye Drops 0.05 % Ophthalmic 2 times a day 2 drops 12h Active Eliquis 5 mg Orally 2 times a day 1 tablet 12h 14 Feb, 2017 90 days Active Lidocaine 4 % Externally Three times a day 1 application to affected area as needed 8h Feb, 30 days Active Trintellix 10 mg orally once a day 1 tablet 24h May, Active Triamcinolone Acetonide 0.1 % Externally Twice a day 1 application to affected area 12h May, Active Diltiazem CD 120 MG Orally Once a day 1 capsule 24h Active Silvadene 1 % Externally Once a day 1 application to affected area 24h May, Active Zofran 8 MG Orally 3 times a day 1 tablet as needed 8h Oct, Active Trintellix 10 MG Orally Once a day 1 tablet 24h Active Nystatin 913590 UNIT/GM Externally Twice a day 1 application to affected area as needed 12h May, Active Vitamin C 500 mg Orally Once [...]
--- OUTSIDE RECORDS SUMMARY | 2018-09-17 19:38 | XMS REPORT ---
Author Author LATONYA KIM Organization [facility] Address [address] [place] [address] Care Team Providers Care Fitting Room Associate Name Role Phone LATONYA KIM Unavailable PROBLEMS Type Condition ICD9-CM Code ITE87-MK Code Onset Dates Condition Status SNOMED Code Problem Atrial fibrillation, unspecified type I48.91 Active 34627400 Problem Decreased renal function N28.9 Active 69025988 Problem Ulcer L98.499 Active 649974213 Problem Venous stasis dermatitis of both lower extremities I87.2 Active 45910631 Problem Urinary incontinence, unspecified type R32 Active 061464377 Problem Stage 4 chronic kidney disease N18.4 Active 185661726 Problem Morbid obesity due to excess calories E66.01 Active 346532800 Problem Closed fracture of left patella, unspecified fracture morphology, sequela S82.002S Active 93111022 Problem Bladder spasms N32.89 Active 821164055 Problem Chronic fatigue R53.82 Active 39058169 Problem Primary insomnia F51.01 Active 0886095 Problem Anxiety F41.9 Active 71744675 Problem Type 2 diabetes mellitus without complication, unspecified intermediate card tender insulin use status E11.9 Active 67699294 Problem Depression, unspecified depression type F32.9 Active 79401371 Problem Cataract H26.9 Active 387300628 Problem Chronic kidney disease (CKD), unspecified stage N18.9 Active 995824693 Problem Gastroesophageal reflux disease without esophagitis K21.9 Active 519785889 Problem Other chronic pain G89.29 Active 32428130 Problem Hypothyroidism, unspecified type E03.9 Active 26982324 Problem Restless leg syndrome G25.81 Active 44216584 Problem Obstructive sleep apnea syndrome G47.33 Active 99728771 Problem Perennial allergic rhinitis, unspecified allergic rhinitis trigger J30.89 Active 696979241 ALLERGIES No Information ENCOUNTERS Encounter Location Date Diagnosis [facility] [address] [facility] [id number] [address] March, Other chronic pain G89.29 [address] [facility] [address] [place] [id number] March, Arthralgia, unspecified joint M25.50 ; Abnormal urine sediment R82.90 ; Venous stasis dermatitis of both lower extremities I87.2 ; Stage 4 chronic kidney disease N18.4 and Cataract of right eye, unspecified cataract type H26.9 [facility] [id number] [place] [address] 65010- 4908 March, Primary insomnia F51.01 [facility] [address] [place] [id number] March, Cervicalgia M54.2 ; Acute pain of right shoulder M25.511 and Pain of left femur M89.8X5 [facility] [id number] [place] [address] 51551- 9969 March, [facility] [id number] [place] [address] 76814- 0535 March, Other chronic pain G89.29 [facility] [id number] [place] [address] 56565- 0266 Feb, [facility] [address] [place] [id number] Feb, Leg swelling M79.89 [facility] [id number] [place] [address] 42015- 5999 Feb, Primary insomnia F51.01 [facility] [address] [place] [id number] Feb, Fever in other diseases R50.81 and Intermittent left lower quadrant abdominal pain R10.32 [facility] [id number] [place] [address] 73026- 0605 Feb, [facility] [id number] [place] [address] 30136- 3957 Feb, [facility] [id number] [place] [address] 12629- 5805 Feb, Depression, unspecified depression type F32.9 ; Hypothyroidism, unspecified type E03.9 ; Type 2 diabetes mellitus without complication, unspecified intermediate card tender insulin use status E11.9 and Anxiety F41.9 [facility] [address] [address] Feb, Other chronic pain G89.29 [facility] [address] [id number] [id number] Jan, Other chronic pain G89.29 [facility] [id number] [place] [address] 89848- 1222 Jan, Bladder spasms N32.89 [facility] [id number] [place] [address] 64333- 1681 Jan, Bladder spasms N32.89 [facility] [id number] [place] [address] 70223- 6672 Dec, Bladder spasms N32.89 [facility] [id number] [place] [address] 80817- 3884 Dec, Depression, unspecified depression type F32.9 [facility] [id number] [place] [address] 61152- 1165 Dec, [facility] [address] [place] [id number] Dec, Hypothyroidism, unspecified type E03.9 ; Depression, unspecified depression type F32.9 ; Other chronic pain G89.29 ; Urinary retention R33.9 and Atrial fibrillation, unspecified type I48.91 [facility] [id number] [id number] Dec, [facility] [id number] [place] [id number] Dec, Other chronic pain G89.29 [facility] [address] [id number] [id number] Nov, [facility] [id number] [place] [address] [id number] Nov, Other chronic pain G89.29 [facility] [address] [place] [address] 55509- 0251 Nov, Other chronic pain G89.29 [facility] [address], [place] [address] 30[address] Nov, [facility] [id number] [place] [address] 04275- 5188 Nov, [facility] [address] [place] [address] 93910- 2206 Nov, Other chronic pain G89.29 [facility] [id number] [place] [address] 19119- 8245 Nov, Other chronic pain G89.29 [facility] [id number] [place] [address] 990968- 0021 Oct, [facility] [id number] [place] [address] 54080- 4520 Oct, Other chronic pain G89.29 [facility] [address] [place] [id number] Oct, Weakness R53.1 ; Macrocytic anemia D53.9 ; Discolored skin L81.9 ; Other chronic pain G89.29 ; Dysuria R30.0 and Hayes catheter in place Z92.89 [facility] [address] [place] [address] 29253- 4216 Oct, Other chronic pain G89.29 [facility] [id number] [place] [address] [id number] Sep, [facility] [id number] [place] [address] 69569- 8159 Sep, [facility] [address] [place] [address] 34814- 1653 Sep, [facility] [id number] [place] [address] [id number] Sep, [facility] [id number] [id number] Sep, Other chronic pain G89.29 [facility] [address] [address] 3[address] Sep, [facility] [address] [id number] [id number] Sep, Other chronic pain G89.29 [facility] [address] [facility] [place] [id number] Sep, Chronic urinary tract infection N39.0 ; Other chronic pain G89.29 ; Chronic kidney disease (CKD), unspecified stage N18.9 ; Type 2 diabetes mellitus without complication, unspecified intermediate card tender insulin use status E11.9 ; Hypothyroidism, unspecified type E03.9 ; Depression, unspecified depression type F32.9 ; Cataract H26.9 ; Obstructive sleep apnea syndrome G47.33 ; Atrial fibrillation, unspecified type I48.91 ; History of femur fracture Z87.81 and Hayes catheter in place Z92.89 [facility] [address], [place] [address] 7893 Sep, [facility] [id number] [place] [address] 78597- 0561 Aug, [facility] [address] [place] [address] 45770- 0081 Aug, Other chronic pain G89.29 [facility] [address], [place] [address] 1417 Aug, [facility] [address], [place] [address] 5014 Aug, [facility] [id number] [place] [address] [id number] Aug, [facility] [address] [place] [address] [id number]- 7111 Aug, [facility] [id number] [place] [address] 13185- 3033 Aug, Type 2 diabetes mellitus without complication, unspecified usp insulin use status E11.9 [facility] [address] [place] [address] 92084- 4433 Aug, Other chronic pain G89.29 [facility] [address] [place] [address] 47436- 5268 18 Aug, 2017 [facility] [id number] [place] [address] 14239- 0995 16 Aug, 2017 [facility] [id number] [place] [address] 66811- 3075 22 Jul, 2017 Other chronic pain G89.29 [facility] [id number] [place] [address] 40200- 0861 19 Jul, 2017 [facility] [id number] [place] [address] 03721- 3216 19 Jul, 2017 Dark brown urine R82.99 [facility] [id number] [place] [address] 46410- 1707 19 Jul, 2017 Dark brown urine R82.99 [facility] [id number] [place] [address] 03670- 7547 14 Jul, 2017 [facility] [address] [place] [address] 22370- 6854 Jun, Other chronic pain G89.29 [facility] [id number] [place] [address] 34645- 6023 Jun, Type 2 diabetes mellitus without complication, unspecified usp insulin use status E11.9 [facility] [address] [place] [address] 03197- 8529 31 May, 2017 Candidiasisadriano B37.2 [facility] [address] [place] [address] 14341- 3247 May, Other chronic pain G89.29 [facility] [id number] [place] [address] 79683- 4031 May, [facility] [id number] [place] [address] 39193- 4765 May, [facility] [id number] [place] [address] 84359- 8731 May, Candidiasis, intertrigo B37.2 [facility] [id number] [place] [address] 03399- 9769 May, Atrial fibrillation, unspecified type I48.91 [facility] [id number] [place] [address] 58350- 8605 May, Hypothyroidism, unspecified type E03.9 and Decreased renal function N28.9 [facility] [id number] [place] [address] 32305- 0484 May, Type 2 diabetes mellitus without complication, unspecified usp insulin use status E11.9 [facility] [id number] [place] [address] 28095- 1210 May, Dental examination Z01.20 [place] [id number] [place] [address] 72529- 9511 May, Chronic kidney disease (CKD), unspecified stage N18.9 ; Type 2 diabetes mellitus without complication, unspecified usp insulin use status E11.9 ; Hypothyroidism, unspecified type E03.9 ; Depression, unspecified depression type F32.9 ; Anemia, unspecified type D64.9 and Ulcer L98.499 [facility] [id number] [place] [address] 42135- 5397 May, [facility] [id number] [place] [address] 88974- 5260 Apr, Other chronic pain G89.29 [facility] [id number] [place] [address] 76251- 3970 Apr, Other chronic pain G89.29 [facility] [id number] [place] [address] 11848- 0861 March, [facility] [address], [place] [address] 9266 March, [facility] [address] [place] [address] 38322- 5978 March, [facility] [address] [place] [address] 97840- 8235 March, Other chronic pain G89.29 [facility] [id number] [place] [address] 69255- 7492 March, [facility] [address] [place] [address] 66042- 5590 Feb, [facility] [address] [place] [address] 08856- 8049 Feb, Type 2 diabetes mellitus without complication, unspecified intermediate card tender insulin use status E11.9 ; Candidiasis, intertrigo B37.2 ; Decubitus ulcer of left buttock, unstageable L89.320 and Pressure ulcer of contiguous region involving right buttock and hip, unspecified ulcer stage L89.40 [facility] [address] [place] [address] 24042- 8115 Feb, Atrial fibrillation, unspecified type I48.91 [facility] [address], [place] [address]- 2767 Feb, [facility] [address], [place] [address]- 8330 Feb, [facility] [address], [place] [address]- 6164 Feb, Other chronic pain G89.29 [facility] [address], [place] [address]- 9378 Jan, Other chronic pain G89.29 [facility] [address], [place] [address]- 5265 Dec, [facility] [address], [place] [address]- 0223 22 Dec, 2016 Lethargy R53.83 [facility] [address] [place] [address] 73462- 1237 17 Dec, 2016 [facility] [address] [place] [address] 62969- 7276 Dec, Other chronic pain G89.29 [facility] [id number] [place] [address] 96305- 9753 Nov, [facility] [address] [place] [address] 02562- 7148 Nov, [facility] [address] [place] [address] 89728- 6546 Nov, Other chronic pain G89.29 [facility] [id number] [place] [address] 20994- 3316 Nov, [facility] [address], [place] [address]- 7748 Nov, [facility] [address] [place] [address] 54304- 1188 Nov, [facility] [address], [place] [address]- 8867 Oct, Cough R05 [facility] [address], [place] [address]- 8141 Oct, Urinary tract infection, site not specified N39.0 [facility] [id number] [address]- 3734 Oct, Other chronic pain G89.29 [facility] [address], [place] [address]- 0799 15 Oct, 2016 Type 2 diabetes mellitus [...] J30.89 ; Nausea R11.0 and Candidiasis B37.9 [facility] [address] 68081- 7606 Oct, [facility] [address] 97837- 5674 Oct, [facility] [address] 77912- 0097 Oct, [facility] [address] 62952- 9978 Oct, Chronic kidney disease (CKD), unspecified stage N18.9 [facility] [address] 86605- 9108 Oct, [facility] [address] 31745- 4611 Sep, Other chronic pain G89.29 [facility] [id number] [place] [address] 97901- 4840 Sep, Chronic kidney disease (CKD), unspecified stage N18.9 and Senile cataract of right eye, unspecified age-related cataract type H25.9 [facility] [id number] [place] [address] 91634- 9099 Sep, [facility] [address] 64443- 9619 Sep, [facility] [id number] [place] [address] 05407- 7326 Sep, [facility] [address] 99243- 8526 Sep, [facility] [address], [place] [address]- 2159 Sep, [facility] [address] [place] [address] 78671- 3595 Aug, [facility] [address], [place] [address]- 8510 Aug, [facility] [id number] [place] [address] 37654- 7984 Aug, [facility] [address] [place] [address] 29515- 1171 Aug, Encounter to establish care Z76.89 ; Other chronic pain G89.29 ; Chronic kidney disease (CKD), unspecified stage N18.9 ; Obstructive sleep apnea syndrome G47.33 ; Type 2 diabetes mellitus without complication, unspecified usp insulin use status E11.9 ; Urinary incontinence, unspecified type R32 ; Depression, unspecified depression type F32.9 ; History of femur fracture Z87.81 ; History of fractured kneecap Z87.81 ; Hypothyroidism , unspecified type E03.9 ; Cataract H26.9 and Gastroesophageal reflux disease without esophagitis K21.9 [facility] [address], [place] [address]- 2116 Aug, [facility] [address], [place] [address]- 9581 Aug, Urinary incontinence, unspecified type R32 [facility] [address], [place] [address]- 5027 Aug, [facility] [address], [place] [address]- 1759 Jul, [facility] [address] [place] [id number] Jul, Type 2 diabetes mellitus without complication, unspecified intermediate card tender insulin use status E11.9 ; Chronic [...] E03.9 and Constipation, unspecified constipation type K59.00 [facility] [id number] [place] [address] 13682- 8462 Jul, [facility] [id number] [place] [address] 05086- 4911 16 Jul, 2016 [facility] [address] [place] [id number] Jul, Anemia, unspecified type D64.9 ; Acute renal failure, unspecified acute renal failure type N17.9 ; Other chronic pain G89.29 ; Obstructive sleep apnea syndrome G47.33 and Type 2 diabetes mellitus without complication, unspecified intermediate card tender insulin use status E11.9 [facility] [id number] [place] [address] 44010- 5409 Jul, [facility] [id number] [place] [address] 18312- 6790 Jul, [facility] [id number] [place] [address] 41712- 1309 Jul, [facility] [id number] [place] [address] 04867- 3512 Jul, [facility] [id number] [place] [address] 77509- 6727 Jul, [facility] [address] [place] [id number] Jun, Other chronic pain G89.29 ; Hayes catheter in place Z92.89 ; Chronic kidney disease (CKD), unspecified stage N18.9 and Blisters of multiple sites R23.8 [place] [id number] [place] [address] 25666- 2400 Jun, [facility] [address] [id number] [place] [address]- 2331 Jun, [facility] [address] [id number] [place] [address]- 3520 Jun, [facility] [address] [id number] [place] [address]- 1997 Jun, [facility] [address] [id number] [place] [address]- 6071 Jun, [facility] [address] [id number] [place] [address]- 0520 Jun, [facility] [address] [id number] [place] [address]- 8299 Jun, [facility] [address] [id number] [place] [address]- 8529 Jun, [facility] [id number] [place] [address]- 3338 Jun, [facility] [address] [id number] [place] [address]- 1588 Jun, [facility] [id number] [place] [address]- 2971 Jun, [facility] [id number], [place] [address]- 0140 May, [facility] [id number], [place] [address]- 0447 May, [facility] [address] [id number], [place] [address]- 3021 May, Other chronic pain G89.29 [facility] [address] [place] [id number] May, Encounter to establish care Z76.89 ; [...] Date Duration Status Oxycodone-Acetaminophen 10-325 MG Orally every 4-6 hours as needed 1 tablet Oct, 28 days Active RESULTS No Results PROCEDURES [...] Acute Kidney Injury 08/05/16 Hospitalization History UTI, Sepsis--[facility] Hospitalization History Chest pain/SOB/A-fib 02/2017 Hospitalization History Chest pain-[facility] 04/13/17 Hospitalization History UTI, respiratory failure, altered mental status-[facility] 09/13/17
--- OUTSIDE RECORDS SUMMARY | 2018-09-17 19:39 | XMS REPORT ---
Author Author LATONYA KIM Organization [facility] Address [address] [place] [address] Care Team Providers Care Burn Nurse Name Role Phone LATONYA KIM Unavailable PROBLEMS Type Condition ICD9-CM Code QWJ05-AD Code Onset Dates Condition Status SNOMED Code Problem Atrial fibrillation, unspecified type I48.91 Active 08113726 Problem Decreased renal function N28.9 Active 43867640 Problem Ulcer L98.499 Active 159331248 Problem Venous stasis dermatitis of both lower extremities I87.2 Active 01198678 Problem Urinary incontinence, unspecified type R32 Active 988467761 Problem Stage 4 chronic kidney disease N18.4 Active 143078339 Problem Morbid obesity due to excess calories E66.01 Active 702035527 Problem Closed fracture of left patella, unspecified fracture morphology, sequela S82.002S Active 03389033 Problem Bladder spasms N32.89 Active 979390892 Problem Chronic fatigue R53.82 Active 62522038 Problem Primary insomnia F51.01 Active 4580599 Problem Anxiety F41.9 Active 18696523 Problem Type 2 diabetes mellitus without complication, 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 Active 61385785 Problem Depression, unspecified depression type F32.9 Active 52015344 Problem Cataract H26.9 Active 221767941 Problem Chronic kidney disease (CKD), unspecified stage N18.9 Active 451325309 Problem Gastroesophageal reflux disease without esophagitis K21.9 Active 461478614 Problem Other chronic pain G89.29 Active 71236046 Problem Hypothyroidism, unspecified type E03.9 Active 54954189 Problem Restless leg syndrome G25.81 Active 46881331 Problem Obstructive sleep apnea syndrome G47.33 Active 77961120 Problem Perennial allergic rhinitis, unspecified allergic rhinitis trigger J30.89 Active 308457587 ALLERGIES No Information ENCOUNTERS Encounter Location Date Diagnosis [facility] [address] [facility] [id number] [address] Apr, [facility] [address] [id number] [address] March, Other chronic pain G89.29 Via [facility] [address] [place] [id number] March, Arthralgia, unspecified joint M25.50 ; Abnormal urine sediment R82.90 ; Venous stasis dermatitis of both lower extremities I87.2 ; Stage 4 chronic kidney disease N18.4 and Cataract of right eye, unspecified cataract type H26.9 [place] [address] [place] [address] 32901- 9769 March, Primary insomnia F51.01 [facility] [address] [place] [id number] March, Cervicalgia M54.2 ; Acute pain of right shoulder M25.511 and Pain of left femur M89.8X5 [place] [id number] [place] [address] 99909- 2128 March, [place] [id number] [place] [address] 98256- 4564 March, Other chronic pain G89.29 [place] [id number] [place] [address] 66636- 3180 Feb, Via [facility] [address] [place] [id number] Feb, Leg swelling M79.89 [place] [id number] [place] [address] 93047- 4065 Feb, Primary insomnia F51.01 Via [facility] [address] [place] [id number] Feb, Fever in other diseases R50.81 and Intermittent left lower quadrant abdominal pain R10.32 [place] [address] [place] [address] 16565- 2647 Feb, [place] [address] [place] [address] 76496- 3754 Feb, [place] [address] [place] [address] 24321- 3430 Feb, Depression, unspecified depression type F32.9 ; Hypothyroidism, unspecified type E03.9 ; Type 2 diabetes mellitus without complication, 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 and Anxiety F41.9 [place] [id number] [place] [address] 93736- 2580 Feb, Other chronic pain G89.29 [place] [address] [id number] Jan, Other chronic pain G89.29 [place] [address] 03742- 1386 Jan, Bladder spasms N32.89 [place] [id number] [place] [address] 47128- 3477 Jan, Bladder spasms N32.89 [place] [id number] [place] [address] 07979- 2566 Dec, Bladder spasms N32.89 [place] [id number] [place] [address] 93956- 8758 Dec, Depression, unspecified depression type F32.9 [place] [id number] [place] [address] 18657- 0887 Dec, Via [facility] [address] [place] [id number] Dec, Hypothyroidism, unspecified type E03.9 ; Depression, unspecified depression type F32.9 ; Other chronic pain G89.29 ; Urinary retention R33.9 and Atrial fibrillation, unspecified type I48.91 [place] [id number] [place] [address] [id number] Dec, [place] [id number] [place] [address] [id number] Dec, Other chronic pain G89.29 [place] [address] [id number] Nov, [facility] [id number] [place] [address] [id number] Nov, Other chronic pain G89.29 [facility] [address] [place] [address] 25266- 8744 Nov, Other chronic pain G89.29 [facility] [address] [place] [address] 28180- 0903 Nov, [facility] [address] [place] [address] 150354- 7872 Nov, [facility] [id number] [place] [address] 16269209- 4385 Nov, Other chronic pain G89.29 [facility] [address] [place] [address] 25631- 4071 Nov, Other chronic pain G89.29 [facility] [address] [place] [address] [phone]- 8564 14 Oct, 2017 [facility] [address] [place] [address] 24756- 0648 Oct, Other chronic pain G89.29 Via [facility] [address] [place] [id number] Oct, Weakness R53.1 ; Macrocytic anemia D53.9 ; Discolored skin L81.9 ; Other chronic pain G89.29 ; Dysuria R30.0 and Hayes catheter in place Z92.89 [facility] [id number] [address] [address] Oct, Other chronic pain G89.29 [facility] [id number] [place] [address] [id number] Sep, [facility] [address] [place] [address] 46095- 6276 Sep, [facility] [address] [place] [address] 87760- 2176 Sep, [facility] [id number] [address] Sep, [facility] [id number] [place] [address] [id number] Sep, Other chronic pain G89.29 [facility] [id number] [place] [address] 12256- 2616 Sep, 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 ; Hypothyroidism, unspecified type E03.9 ; Depression, unspecified depression type F32.9 ; Cataract H26.9 ; Obstructive sleep apnea syndrome G47.33 ; Atrial fibrillation, unspecified type I48.91 ; History of femur fracture Z87.81 [address] catheter in [address] Z92.89 [facility] [address] [place] [address] [id number]- 9387 Sep, [facility] [address] [place] [address] 60607- 6292 Aug, [facility] [address] [place] [address] 59215- 8260 Aug, Other chronic pain G89.29 [facility] [address] [address] 8398 Aug, [facility] [id number] [place] [address] [phone]- 4311 Aug, 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 [facility] [address] [address] 8256 Aug, Other chronic pain G89.29 [facility] [id number] [place] [address] 55595- 3396 18 Aug, 2017 [facility] [id number] [place] [address] 67772- 1256 16 Aug, 2017 [facility] [id number] [place] [address] 78030- 6242 22 Jul, 2017 Other chronic pain G89.29 [facility] [id number] [place] [address] 64336 2546 19 Jul, 2017 [facility] [address] [id number] [address] 2546 19 Jul, 2017 Dark brown urine R82.99 [facility] [address] [place] [address] 35888 2546 19 Jul, 2017 Dark brown urine R82.99 [facility] [address] [address] 2546 14 Jul, 2017 [facility] [address] [address] 2546 Jun, Other chronic pain G89.29 [facility] [address] [address] 2547 Jun, Type 2 diabetes mellitus without complication, unspecified detention insulin use status E11.9 [facility] [address] [address] 2549 May, Candidiasis, intertrigo B37.2 [facility] [address] [address]- 8307 May, Other chronic pain G89.29 [place] [id number] [place] [address] 59605- 6340 May, [place] [id number] [place] [address] 28652- 0883 May, [place] [id number] [place] [address] 12510- 6556 May, Candidiasis, intertrigo B37.2 [place] [id number] [place] [address] 58614- 6763 May, Atrial fibrillation, unspecified type I48.91 [place] [id number] [place] [address] 27305- 9056 May, Hypothyroidism, unspecified type E03.9 and Decreased renal function N28.9 [place] [id number] [place] [address] 57147- 8575 May, Type 2 diabetes mellitus without complication, 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 [place] [id number] [place] [address] 61035- 0352 May, Dental examination Z01.20 [place] [id number] [place] [address] 10390- 5104 May, Chronic kidney disease (CKD), unspecified stage N18.9 ; Type 2 diabetes mellitus without complication, unspecified detention insulin use status E11.9 ; Hypothyroidism, unspecified type E03.9 ; Depression, unspecified depression type F32.9 ; Anemia, unspecified type D64.9 and Ulcer L98.499 [place] [id number] [place] [address] 19679- 1531 May, [place] [id number] [place] [address] 99296- 7498 Apr, Other chronic pain G89.29 [place] [id number] [place] [address] 14383- 9045 Apr, Other chronic pain G89.29 [facility] [address] [address]- 5876 March, [facility] [address] [address]- 2053 March, [facility] [address] [address]- 4567 March, [facility] [id number] [place] [address] 89108- 2597 March, Other chronic pain G89.29 [facility] [address] [place] [address] 32747- 3869 March, [facility] [address] [place] [address] 57937- 7889 Feb, [facility] [address] [place] [address] 36694- 1333 Feb, Type 2 diabetes mellitus without complication, unspecified detention insulin use status E11.9 ; Candidiasis, intertrigo B37.2 ; Decubitus ulcer of left buttock, unstageable L89.320 and Pressure ulcer of contiguous region involving right buttock and hip, unspecified ulcer stage L89.40 [facility] [address] [address]- 5962 Feb, Atrial fibrillation, unspecified type I48.91 [facility] [address] [address]- 9538 Feb, [facility] [address] [address]- 5612 Feb, [facility] [address] [place] [address] 69482- 5417 Feb, Other chronic pain G89.29 [facility] [address] [address]- 7858 Jan, Other chronic pain G89.29 [facility] [address] [address]- 0041 28 Dec, 2016 [facility] [address] [address]- 5986 Dec, Lethargy R53.83 [facility] [address] [address]- 8786 17 Dec, 2016 [facility] [id number] [place] [address] 35105- 0987 Dec, Other chronic pain G89.29 [facility] [address] [address]- 1662 Nov, [facility] [address] [place] [address] 65890- 4075 Nov, [facility] [address] [place] [address] 67528- 8091 Nov, Other chronic pain G89.29 [facility] [address] [address]- 8978 Nov, [facility] [address] [place] [address] 59787- 1131 Nov, [facility] [address] [address]- 3898 Nov, [facility] [address] [address]- 6974 Oct, Cough R05 [facility] [address] [address]- 6088 Oct, Urinary tract infection, site not specified N39.0 [facility] [address] [address]- 6570 Oct, Other chronic pain G89.29 [facility] [address] [address]- 2540 Oct, Type 2 diabetes mellitus without complication, 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 ; Other [...] J30.89 ; Nausea R11.0 and Candidiasis B37.9 [place] [id number] [place] [address] 14061- 5159 Oct, [place] [address] 90892- 7536 Oct, [place] [address] 13070- 3117 Oct, [place] [address] 53958- 9948 Oct, Chronic kidney disease (CKD), unspecified stage N18.9 [place] [address] 17535- 9822 Oct, [place] [id number] [place] [address] 09005- 1732 Sep, Other chronic pain G89.29 [place] [id number] [place] [address] 13047- 4845 Sep, Chronic kidney disease (CKD), unspecified stage N18.9 and Senile cataract of right eye, unspecified age-related cataract type H25.9 [place] [id number] [place] [address] 00162- 9775 Sep, [place] [id number] [place] [address] 11349- 2971 Sep, [place] [address] 28222- 0942 Sep, [facility] [id number] [address]- 7362 Sep, [facility] [address] [address]- 7779 Sep, [facility] [address] [address]- 2194 Aug, [facility] [id number] [address]- 9295 Aug, [facility] [address] [address]- 5640 Aug, [place] [address] [address]- 2310 Aug, Encounter to establish care Z76.89 ; [...] and Gastroesophageal reflux disease without esophagitis K21.9 [place] [address] [address]- 0296 Aug, [facility] [id number] [address]- 9503 Aug, Urinary incontinence, unspecified type R32 [facility] [id number] [address]- 4033 Aug, [place] [id number] [address]- 3533 Jul, [facility] [address] [place] [id number] Jul, Type 2 diabetes mellitus without complication, 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 ; Chronic [...] E03.9 and Constipation, unspecified constipation type K59.00 [place] [id number] [place] [address] 96453- 9082 Jul, [place] [address] 18912- 9527 Jul, [facility] [id number] Jul, Anemia, unspecified type D64.9 ; Acute renal failure, unspecified acute renal failure type N17.9 ; Other chronic pain G89.29 ; Obstructive sleep apnea syndrome G47.33 and Type 2 diabetes mellitus without complication, unspecified detention insulin use status E11.9 [place] [id number] [place] [address] 92074- 1011 Jul, [place] [id number] [place] [address] 04253- 1915 Jul, [place] [id number] [place] [address] 64814- 8891 Jul, [place] [id number] [place] [address] 60729- 4857 Jul, [place] [id number] [place] [address] 99013- 2380 Jul, [facility] [address] [place] [id number] Jun, Other chronic pain G89.29 ; Hayes catheter in place Z92.89 ; Chronic kidney disease (CKD), unspecified stage N18.9 and Blisters of multiple sites R23.8 [facility] [address] [id number] [place] [address]- 5173 Jun, [facility] [address] [id number] [place] [address]- 0930 Jun, [facility] [address] [id number] [place] [address]- 5354 Jun, [facility] [address] [id number] [place] [address]- 5659 Jun, [facility] [address] [id number] [place] [address]- 9517 Jun, [facility] [address] [id number] [place] [address]- 0302 Jun, [facility] [address] [id number] [place] [address]- 5642 Jun, [facility] [address] [id number] [place] [address]- 0796 Jun, [facility] [address] [id number] [place] [address]- 5140 Jun, [facility] [address] [facility] [id number] [place] [address]- 1347 Jun, [facility] [address] [id number] [place] [address]- 1876 Jun, [facility] [address] [id number] [address]- 0109 May, [facility] [address] [id number] [place] [address]- 1860 May, [facility] [address] [facility] [id number] [address]- 6173 May, Other chronic pain G89.29 [facility] [address] [id number] May, Encounter to [facility] care Z76.89 ; Type 2 diabetes mellitus without complication, unspecified detention insulin use status E11.9 ; Hypothyroidism, unspecified [...] SOCIAL HISTORY Never Assessed REASON FOR VISIT N[employer] PLAN OF CARE VITAL SIGNS MEDICATIONS Medication Instructions Dosage Frequency Start Date End Date Duration Status Oxycodone-Acetaminophen 10-325 MG Orally 4 times a day 1 tablet 6h 14 Oct, 2017 Nov, 28 days Active RESULTS No Results PROCEDURES [...] Acute Kidney Injury 08/05/16 Hospitalization History UTI, Sepsis--[facility] Hospitalization History Chest pain/SOB/A-fib 02/2017 Hospitalization History Chest pain-[facility] 04/13/17 Hospitalization History UTI, respiratory failure, altered mental status-[facility] 09/13/17
--- OUTSIDE RECORDS SUMMARY | 2018-09-17 19:39 | XMS REPORT ---
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 And Chief Strategy Officer Name Role Phone LATONYA KIM Unavailable PROBLEMS Type Condition ICD9-CM Code HMF72-XO Code Onset Dates Condition Status SNOMED Code Problem Ulcer L98.499 Active 245315731 Problem Chronic fatigue R53.82 Active 94489851 Problem Decreased renal function N28.9 Active 30175310 Problem Nephrolithiasis N20.0 Active 46730246 Problem Chronic kidney disease (CKD), unspecified stage N18.9 Active 128001993 Problem Venous stasis dermatitis of both lower extremities I87.2 Active 79479678 Problem Urinary incontinence, unspecified type R32 Active 297472814 Problem Morbid obesity due to excess calories E66.01 Active 063082386 Problem Anxiety F41.9 Active 64290774 Problem Bladder spasms N32.89 Active 017857205 Problem Stage 4 chronic kidney disease N18.4 Active 455134897 Problem Primary insomnia F51.01 Active 2698652 Problem Hypothyroidism, unspecified type E03.9 Active 50404051 Problem Cataract H26.9 Active 117322319 Problem Type 2 diabetes mellitus without complication, 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 Active 86280994 Problem Depression, unspecified depression type F32.9 Active 42990268 Problem Other chronic pain G89.29 Active 53665142 Problem Perennial allergic rhinitis, unspecified allergic rhinitis trigger J30.89 Active 033170036 Problem Obstructive sleep apnea syndrome G47.33 Active 07332366 Problem Restless leg syndrome G25.81 Active 09980359 Problem Closed fracture of left patella, unspecified fracture morphology, sequela S82.002S Active 49825728 Problem Gastroesophageal reflux disease without esophagitis K21.9 Active 851568601 Problem Atrial fibrillation, unspecified type I48.91 Active 29282298 ALLERGIES No Information ENCOUNTERS Encounter Location Date Diagnosis [facility] [place] [address] [address] May, [facility] [place] [id number] [place] [address] 00871- 8122 May, Primary insomnia F51.01 and Arthralgia, unspecified joint M25.50 [facility] [place] [address] [place] [address] 19831- 7778 May, Other chronic pain G89.29 [facility] [facility] [address] [place] [id number] May, Nephrolithiasis N20.0 ; Cataract H26.9 and Macrocytic anemia D53.9 [facility] [id number] [place] [address] 61369- 5999 May, [facility] [place] [id number] [place] [address] 90329- 7875 Apr, [facility] [place] [id number] [place] [address] 10575- 8696 Apr, [facility] [place] [id number] [place] [address] 32052- 4847 Apr, Primary insomnia F51.01 [facility] [place] [address] [place] [address] 87732- 2519 Apr, [facility] [place] [address] [place] [address] 91521- 9724 March, Other chronic pain G89.29 [facility] [employer] [address] [place] [id number] March, Arthralgia, unspecified joint M25.50 ; Abnormal urine sediment R82.90 ; Venous stasis dermatitis of both lower extremities I87.2 ; Stage 4 chronic kidney disease N18.4 and Cataract of right eye, unspecified cataract type H26.9 [facility] [place] [address] [place] [address] 55047- 3609 March, Primary insomnia F51.01 [facility] [employer] [address] [place] [id number] March, Cervicalgia M54.2 ; Acute pain of right shoulder M25.511 and Pain of left femur M89.8X5 [facility] [id number] [place] [address] 67334- 4178 March, [facility] [id number] [place] [address] 43394- 8098 March, Other chronic pain G89.29 [facility] [id number] [place] [address] 01264- 6896 Feb, [facility] [employer] [address] [place] [id number] Feb, Leg swelling M79.89 [facility] [id number] [place] [address] 20061- 6222 Feb, Primary insomnia F51.01 [facility] [employer] [address] [place] [id number] Feb, Fever in other diseases R50.81 and Intermittent left lower quadrant abdominal pain R10.32 [facility] [id number] [place] [address] 19280- 6278 Feb, [facility] [id number] [place] [address] 16237- 8416 Feb, [facility] [id number] [place] [address] 69583- 2613 Feb, Depression, unspecified depression type F32.9 ; Hypothyroidism, unspecified type E03.9 ; Type 2 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 mellitus without complication, 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 and Anxiety F41.9 [facility] [id number] [place] [address] 78264- 8637 Feb, Other chronic pain G89.29 [facility] [id number] [place] [id number] Jan, Other chronic pain G89.29 [facility] [id number] [place] [address] 58214- 9161 Jan, Bladder spasms N32.89 [facility] [place] [address] [address]131 Jan, Bladder spasms N32.89 [facility] [place] [address], [place] [address] 8138 Dec, Bladder spasms N32.89 [facility] [place] [address], [place] [address]- 7562 Dec, Depression, unspecified depression type F32.9 [facility] [place] [id number], [place] [address] 3565 Dec, [facility] [address] [facility] [place] [id number] Dec, Hypothyroidism, unspecified type E03.9 ; Depression, unspecified depression type F32.9 ; Other chronic pain G89.29 ; Urinary retention R33.9 and Atrial fibrillation, unspecified type I48.91 [facility] [id number] [id number] Dec, [facility] [id number] [place] [id number] Dec, Other chronic pain G89.29 [facility] [id number] [id number] Nov, [facility] [id number] [address] Nov, Other chronic pain G89.29 [facility] [place] [id number], [place] [address] 3986 Nov, Other chronic pain G89.29 [facility] [place] [address], [place] [address] 6166 Nov, [facility] [place] [address] [address] 7279 Nov, [facility] [place] [address] [address] [address]32 Nov, Other chronic pain G89.29 [facility] [place] [address], [place] [address] 9456 Nov, Other chronic pain G89.29 [facility] [place] [address], [place] [address]- 6791 Oct, [facility] [place] [address], [place] [address] 3087 Oct, Other chronic pain G89.29 [facility] [address] [place] [id number] Oct, Weakness R53.1 ; Macrocytic anemia D53.9 ; Discolored skin L81.9 ; Other chronic pain G89.29 ; Dysuria R30.0 and Hayes catheter in place Z92.89 [facility] [place] [address], [place] [address] 2322 Oct, Other chronic pain G89.29 [facility] [id number] [place] [address] [id number] Sep, [facility] [place] [address], [place] [address]- 8215 Sep, [facility] [place] [address] [place] [address] 51069- 2464 Sep, [facility] [id number] [id number] Sep, [facility] [id number] [place] [address] [id number] Sep, Other chronic pain G89.29 [facility] [place] [address], [place] [address] 5410 Sep, [facility] [id number] [place] [id number] Sep, Other chronic pain G89.29 [facility] [address] [place] [id number] Sep, Chronic urinary tract infection N39.0 ; [...] [place] [id number] [place] [address] 43506- 4332 Sep, [facility] [place] [id number] [place] [address] 56488- 2312 Aug, [facility] [place] [id number] [place] [address] 80997- 2322 Aug, Other chronic pain G89.29 [facility] [place] [id number] [place] [address] 20049- 8369 Aug, [facility] [place] [id number] [place] [address] 24573- 7491 Aug, [facility] [id number] [place] [address] [id number] Aug, [facility] [place] [id number] [place] [address] 28893- 0672 Aug, [facility] [place] [id number] [place] [address] 62637- 0423 Aug, Type 2 diabetes mellitus without complication, unspecified shelter insulin use status E11.9 [facility] [place] [id number] [place] [address] 41711- 0633 Aug, Other chronic pain G89.29 [facility] [place] [id number] [place] [address] 13973- 8710 Aug, [facility] [place] [id number] [place] [address] 39548- 1700 Aug, [facility] [place] [id number] [place] [address] 73384- 1610 Jul, Other chronic pain G89.29 [facility] [place] [address], [place] [address]- 0675 Jul, [facility] [place] [address], [place] [address]- 1065 Jul, Dark brown urine R82.99 [facility] [place] [address], [place] [address]- 5575 Jul, Dark brown urine R82.99 [facility] [place] [address], [place] [address]- 5647 14 Jul, 2017 [facility] [place] [address] [place] [address] 79930- 0435 Jun, Other chronic pain G89.29 [facility] [place] [address] [place] [address] 77404- 5262 Jun, Type 2 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 without complication, 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 [facility] [place] [address], [place] [address]- 4115 May, Candidiasis, intertrigo B37.2 [facility] [place] [address] [place] [address] 08003- 0533 May, Other chronic pain G89.29 [facility] [place] [address], [place] [address]- 0189 May, [facility] [place] [id number] [place] [address] 55492- 8738 May, [facility] [place] [address], [place] [address]- 2163 May, Candidiasis, intertrigo B37.2 [facility] [place] [address], [place] [address]- 0125 May, Atrial fibrillation, unspecified type I48.91 [facility] [place] [address] [place] [address] 58942- 8199 May, Hypothyroidism, unspecified type E03.9 and Decreased renal function N28.9 [facility] [place] [id number] [place] [address] 26227- 4617 May, Type 2 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 mellitus without complication, 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 [facility] [place] [address], [place] [address]- 7778 May, Dental examination Z01.20 [facility] [place] [id number] [place] [address] 46112- 5045 May, Chronic kidney disease (CKD), unspecified stage N18.9 ; Type 2 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 mellitus without complication, 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 ; Hypothyroidism, unspecified type E03.9 ; Depression, unspecified depression type F32.9 ; Anemia, unspecified type D64.9 and Ulcer L98.499 [facility] [id number] [place] [address] 05475- 9195 May, [facility] [id number] [place] [address] 25451- 3894 Apr, Other chronic pain G89.29 [facility] [id number] [place] [address] 21458- 5401 Apr, Other chronic pain G89.29 [facility] [address], [place] [address]- 4319 March, [facility] [place] [id number] [place] [address] 59798- 9442 March, [facility] [place] [id number], [place] [address]- 4531 March, [facility] [place] [id number] [place] [address] 40952- 3134 March, Other chronic pain G89.29 [facility] [place] [address], [place] [address]- 4011 March, [facility] [id number] [place] [address] 80152- 7744 Feb, [facility] [place] [id number] [place] [address] 67543- 3057 Feb, Type 2 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 mellitus without complication, 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 ; Candidiasis, intertrigo B37.2 ; Decubitus ulcer of left buttock, unstageable L89.320 and Pressure ulcer of contiguous region involving right buttock and hip, unspecified ulcer stage L89.40 [facility] [place] [id number] [place] [address] 55048- 9173 Feb, Atrial fibrillation, unspecified type I48.91 [facility] [id number] [place] [address] 84345- 7110 Feb, [facility] [id number] [place] [address] 68189- 5993 Feb, [facility] [place] [id number] [place] [address] 37249- 7593 Feb, Other chronic pain G89.29 [facility] [id number] [place] [address] 23230- 3945 Jan, Other chronic pain G89.29 [facility] [id number] [place] [address] 23631- 6683 Dec, [facility] [id number] [place] [address] 24094- 7356 Dec, Lethargy R53.83 [facility] [place] [address] [place] [address] 87353- 7258 Dec, [facility] [place] [id number] [place] [address] 21245- 4231 Dec, Other chronic pain G89.29 [facility] [place] [address] [place] [address] 68241- 1376 Nov, [facility] [place] [id number] [place] [address] 73233- 8988 Nov, [facility] [place] [address], [place] [address]- 1774 Nov, Other chronic pain G89.29 [facility] [place] [address], [place] [address]- 6836 Nov, [facility] [place] [address], [place] [address]- 3881 Nov, [facility] [place] [address] [place] [address] 01655- 4228 Nov, [facility] [address] [place] [address] 47462- 5083 Oct, Cough R05 [facility] [address] [place] [address] 23361- 8911 Oct, Urinary tract infection, site not specified N39.0 [facility] [address] [place] [address] 93999- 4875 Oct, Other chronic pain G89.29 [facility] [address] [place] [address] 77083- 8464 Oct, Type 2 diabetes mellitus without complication, unspecified shelter insulin use status E11.9 ; Other chronic [...] J30.89 ; Nausea R11.0 and Candidiasis B37.9 [facility] [id number], [place] [address]- 0965 Oct, [facility] [address], [place] [address]- 7094 Oct, [facility] [place] [id number] [place] [address]- 4609 Oct, [facility] [place] [id number] [address] 0755 Oct, Chronic kidney disease (CKD), unspecified stage N18.9 [facility] [place] [id number] [place] [address], [place] [address]- 6282 Oct, [facility] [place] [id number] [place] [address]- 0397 Sep, Other chronic pain G89.29 [facility] [place] [id number] [place] [address], [place] [address]- 6468 Sep, Chronic kidney disease (CKD), unspecified stage N18.9 and Senile cataract of right eye, unspecified age-related cataract type H25.9 [facility] [place] [id number] [place] [address], [place] [address]- 8731 Sep, [facility] [place] [id number] [place] [address]- 1560 Sep, [facility] [place] [id number] [place] [address]- 6032 Sep, [facility] [place] [address], [place] [address]- 6106 Sep, [facility] [place] [address], [place] [address]- 0870 Sep, [facility] [place] [address], [place] [address]- 3452 Aug, [facility] [place] [id number] [place] [address], [place]- 1514 Aug, [facility] [place] [address]- 2243 Aug, [facility] [place] [address] [place] [address] 90426- 2862 Aug, Encounter to establish care Z76.89 ; [...] and Gastroesophageal reflux disease without esophagitis K21.9 [facility] [id number] [place] [address] 80467- 2707 Aug, [facility] [id number] [place] [address] 64910- 5804 Aug, Urinary incontinence, unspecified type R32 [address] 7[address]04- 1153 Aug, [facility] [id number] [place] [address] 62787- 6672 Jul, [facility] [address] [place] [id number] Jul, Type 2 diabetes mellitus without complication, unspecified shelter insulin use status E11.9 ; Chronic kidney [...] E03.9 and Constipation, unspecified constipation type K59.00 [facility] [id number] [place] [address] 49452- 1962 Jul, [facility] [facility] [id number] [place] [address] 46032- 6856 Jul, [facility] [address] [place] [id number] 14 Jul, 2016 Anemia, unspecified type D64.9 ; Acute renal failure, unspecified acute renal failure type N17.9 ; Other chronic pain G89.29 ; Obstructive sleep apnea syndrome G47.33 and Type 2 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 mellitus without complication, 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 [facility] [place] [address] [place] [address] 60695- 1141 Jul, [facility] [place] [id number] [place] [address] 77721- 2858 Jul, [facility] [place] [id number] [place] [address] 85046- 3749 Jul, [facility] [place] [id number] [place] [address] 35191- 6586 Jul, [facility] [place] [id number] [place] [address] 68677- 5955 Jul, [facility] [address] [place] [id number] Jun, Other chronic pain G89.29 ; Hayes catheter in place Z92.89 ; Chronic kidney disease (CKD), unspecified stage N18.9 and Blisters of multiple sites R23.8 [facility] [place] [address], [place] [address]- 6229 Jun, [facility] [place] [id number] [place] [address] Jun, [facility] [place] [id number] [place] [address] Jun, [facility] [place] [id number] [address] Jun, [facility] [place] [id number] [place] [address] Jun, [facility] [place] [id number] [place] [id number] Jun, [facility] [place] [id number], [place] [address] Jun, [facility] [place] [id number] [address] Jun, [facility] [place] [id number] [address] Jun, [facility] [place] [id number] [place] [address] Jun, [facility] [place] [id number], [place] [address] Jun, [facility] [place] [id number] [place] [address] May, [facility] [place] [id number], [place] [address] May, [facility] [place] [id number] [address] May, Other chronic pain G89.29 [place] [address] [address] [place] [id number] May, Encounter to establish care Z76.89 ; [...] HISTORY Never Assessed REASON FOR VISIT increase in Trintellix PLAN OF CARE VITAL SIGNS MEDICATIONS Medication Instructions Dosage Frequency Start Date End Date Duration Status Trintellix 10 mg orally once a day 2 tablet 24h May, Active RESULTS No Results PROCEDURES No [...] Acute Kidney Injury 08/05/16 Hospitalization History UTI, Sepsis--[facility] Hospitalization History Chest pain/SOB/A-fib 02/2017 Hospitalization History Chest pain-[facility] 04/13/17 Hospitalization History UTI, respiratory failure, altered mental status-[facility] 09/13/17
--- OUTSIDE RECORDS SUMMARY | 2018-09-17 19:40 | XMS REPORT ---
Author Author LATONYA KIM [facility] Address [address] [place] [address] Care Team Providers Care Story Analyst Name Role Phone LATONYA KIM Unavailable PROBLEMS Type Condition ICD9-CM Code NYV68-BI Code Onset Dates Condition Status SNOMED Code Problem Cataract H26.9 Active 434786119 Problem Restless leg syndrome G25.81 Active 62418732 Problem Other chronic pain G89.29 Active 36492739 Problem Bladder spasms N32.89 Active 829759888 Problem Chronic fatigue R53.82 Active 06852989 Problem Atrial fibrillation, unspecified type I48.91 Active 77846046 Problem Perennial allergic rhinitis, unspecified allergic rhinitis trigger J30.89 Active 677827008 Problem Decreased renal function N28.9 Active 22240396 Problem Ulcer L98.499 Active 643838440 Problem Morbid obesity due to excess calories E66.01 Active 515842812 Problem Urinary incontinence, unspecified type R32 Active 592349936 Problem Closed fracture of left patella, unspecified fracture morphology, sequela S82.002S Active 21271830 Problem Depression, unspecified depression type F32.9 Active 51058499 Problem Hypothyroidism, unspecified type E03.9 Active 29014392 Problem Chronic kidney disease (CKD), unspecified stage N18.9 Active 599071968 Problem Obstructive sleep apnea syndrome G47.33 Active 02995218 Problem Type 2 diabetes mellitus without complication, unspecified terminal press operator insulin use status E11.9 Active 42615688 Problem Gastroesophageal reflux disease without esophagitis K21.9 Active 205433455 ALLERGIES No Information ENCOUNTERS Encounter Location Date Diagnosis [facility] [address] [id number] [id number] Jan, Other chronic pain G89.29 [facility] [address] [facility] [id number], [place] [address] Jan, Bladder spasms N32.89 [facility] [address], [place] [address] Jan, Bladder spasms N32.89 [facility] [address], [place] [address] Dec, Bladder spasms N32.89 [facility] [address], [place] [address] Dec, Depression, unspecified depression type F32.9 [facility] [address], [place] [address] Dec, [address] [facility] [address] [place] [id number] Dec, Hypothyroidism, unspecified type E03.9 ; Depression, unspecified depression type F32.9 ; Other chronic pain G89.29 ; Urinary retention R33.9 and Atrial fibrillation, unspecified type I48.91 [facility] [address] [id number] [id number] Dec, [facility] [id number] [place] [id number] Dec, Other chronic pain G89.29 [facility] [address] [id number] [id number] Nov, [facility] [address] [id number] [id number] Nov, Other chronic pain G89.29 [facility] [address] [id number], [place] [address] Nov, Other chronic pain G89.29 [facility] [address], [place] [address] Nov, [facility] [address] [address] Nov, [facility] [address], [place] [address] Nov, Other chronic pain G89.29 [facility] [address] [facility] [id number], [place] [address] Nov, Other chronic pain G89.29 [facility] [address] [facility] [id number], [place] [address] Oct, [facility] [address] [id number], [place] [address] Oct, Other chronic pain G89.29 [address] [employer] [address] [place] [id number] Oct, Weakness R53.1 ; Macrocytic anemia D53.9 ; Discolored skin L81.9 ; Other chronic pain G89.29 ; Dysuria R30.[address] catheter [address] Z92.89 [facility] [address] [id number], [place] [address] Oct, Other chronic pain G89.29 [facility] [id number] [place] [id number] Sep, [facility] [address], [place] [address] Sep, [facility] [address], [place] [address] Sep, [facility] [address] [id number] [id number] Sep, [facility] [id number] [place] [id number] Sep, Other chronic pain G89.29 [facility] [address] [facility] [id number], [place] [address] Sep, [facility] [id number] [place] [id number] Sep, Other chronic pain G89.29 [address] [employer] [address] [place] [id number] Sep, Chronic urinary tract infection N39.0 ; [...] and Hayes catheter in place Z92.89 [facility] [id number] [place] [address] 59679- 3788 Sep, [facility] [id number] [place] [address] 85648- 8544 Aug, [facility] [address] [address] Aug, Other chronic pain G89.29 [facility] [id number] [place] [address] 12615- 2586 Aug, [facility] [id number] [place] [address] 08746- 7178 Aug, [facility] [address] [id number] Aug, [facility] [id number] [place] [address] 71609- 4771 Aug, [facility] [id number] [place] [address] 02226- 8976 Aug, Type 2 diabetes mellitus without complication, unspecified terminal press operator insulin use status E11.9 [facility] [id number] [place] [address] 83877- 5795 Aug, Other chronic pain G89.29 [facility] [address] [address] Aug, [facility] [id number] [place] [address] 41351- 4939 Aug, [facility] [address] [address] Jul, Other chronic pain G89.29 [facility] [address], [place] [address] Jul, [facility] [address] [place] [address] 25227- 8229 Jul, Dark brown urine R82.99 [facility] [address] [place] [address] 83558- 1282 Jul, Dark brown urine R82.99 [facility] [id number] [place] [address] 30768- 2856 14 Jul, 2017 [facility] [id number] [place] [address] 97245- 8623 Jun, Other chronic pain G89.29 [facility] [address] [place] [address] 59607- 2475 Jun, Type 2 diabetes mellitus without complication, unspecified skilled nursing insulin use status E11.9 [facility] [id number] [place] [address] 22723- 3651 May, Candidiasis, intertrigo B37.2 [facility] [id number] [place] [address] 89646- 6161 May, Other chronic pain G89.29 [facility] [id number] [place] [address] 79608- 6597 May, [facility] [id number] [place] [address] 65792- 3985 May, [facility] [id number] [place] [address] 01525- 1311 May, Candidiasis, intertrigo B37.2 [facility] [id number] [place] [address] 75500- 4062 May, Atrial fibrillation, unspecified type I48.91 [facility] [id number] [place] [address] 33541- 2870 May, Hypothyroidism, unspecified type E03.9 and Decreased renal function N28.9 [facility] [id number] [place] [address] 31124- 1205 May, Type 2 diabetes mellitus without complication, unspecified terminal press operator insulin use status E11.9 [facility] [id number] [place] [address] 59549- 5885 May, Dental examination Z01.20 [facility] [id number] [place] [address] 03538- 0730 May, Chronic kidney disease (CKD), unspecified stage N18.9 ; Type 2 diabetes mellitus without complication, unspecified terminal press operator insulin use status E11.9 ; Hypothyroidism, unspecified type E03.9 ; Depression, unspecified depression type F32.9 ; Anemia, unspecified type D64.9 and Ulcer L98.499 [facility] [id number] [place] [address] 63643- 4690 May, [facility] [id number] [place] [address] 46579- 5915 Apr, Other chronic pain G89.29 [facility] [id number] [place] [address] 83116- 9644 Apr, Other chronic pain G89.29 [facility] [address] [id number] [address] March, [facility] [id number] [place] [address] 11640- 6511 March, [facility] [id number] [place] [address] 44698- 7473 March, [facility] [id number] [place] [address] 55278- 2021 March, Other chronic pain G89.29 [facility] [id number] [place] [address] 22378- 9828 March, [facility] [address] [place] [place] [address] Feb, [facility] [id number] [place] [address] 18153- 3011 Feb, Type 2 diabetes mellitus without complication, unspecified terminal press operator insulin use status E11.9 ; Candidiasis, intertrigo B37.2 ; Decubitus ulcer of left buttock, unstageable L89.320 and Pressure ulcer of contiguous region involving right buttock and hip, unspecified ulcer stage L89.40 [facility] [id number] [place] [address] 83122- 2349 Feb, Atrial fibrillation, unspecified type I48.91 [facility] [id number] [place] [address] 57368- 1603 Feb, [facility] [id number] [place] [address] 29931- 0846 Feb, [facility] [id number] [place] [address] 12675- 7266 Feb, Other chronic pain G89.29 [facility] [id number] [place] [address] 06508- 2220 Jan, Other chronic pain G89.29 [facility] [id number] [place] [address] 36984- 4382 Dec, [facility] [id number] [place] [address] 30402- 4092 Dec, Lethargy R53.83 [facility] [id number] [place] [address] 28816- 8509 Dec, [facility] [id number] [place] [address] 46771- 0336 10 Dec, 2016 Other chronic pain G89.29 [facility] [id number] [place] [address] 75632- 3445 Nov, [facility] [id number] [place] [address] 34255- 9184 Nov, [facility] [address], [place] [address]- 0117 Nov, Other chronic pain G89.29 [facility] [address], [place] [address] 4499 Nov, [facility] [address], [place] [address]- 5808 Nov, [facility] [id number] [place] [address] 73958- 7619 Nov, [facility] [id number] [place] [address] 15188- 9920 Oct, Cough R05 [facility] [id number] [place] [address] 60767- 4518 Oct, Urinary tract infection, site not specified N39.0 [facility] [id number] [place] [address] 51462- 3281 Oct, Other chronic pain G89.29 [facility] [address], [place] [address]- 7981 Oct, Type 2 diabetes mellitus without complication, [...] J30.89 ; Nausea R11.0 and Candidiasis B37.9 [facility] [address], [place] [address]- 7156 Oct, [facility] [address], [place] [address]- 8088 Oct, [facility] [address], [place] [address]- 0167 Oct, [facility] [id number] [place] [address] 29287- 3076 Oct, Chronic kidney disease (CKD), unspecified stage N18.9 [facility] [id number] [place] [address] 54539- 8512 Oct, [facility] [id number] [place] [address] 39880- 3072 Sep, Other chronic pain G89.29 [facility] [id number] [place] [address] 04932- 3524 Sep, Chronic kidney disease (CKD), unspecified stage N18.9 and Senile cataract of right eye, unspecified age-related cataract type H25.9 [facility] [id number] [place] [address] 82693- 9247 Sep, [facility] [id number] [place] [address] 61298- 6224 Sep, [facility] [id number] [place] [address] 32998- 8771 Sep, [facility] [id number] [place] [address] 82243- 2048 Sep, [facility] [id number] [place] [address] 73359- 9704 Sep, [facility] [id number] [place] [address] 29076- 0751 Aug, [facility] [id number] [place] [address], [place] [address] Aug, [facility] [address] [id number], [place] [address]- 4600 Aug, [facility] [id number] [place] [address] 59400- 2987 Aug, Encounter to establish care Z76.89 ; Other chronic pain G89.29 ; Chronic kidney disease (CKD), unspecified stage N18.9 ; Obstructive sleep apnea syndrome G47.33 ; Type 2 diabetes mellitus without complication, unspecified terminal press operator insulin use status E11.9 ; Urinary incontinence, unspecified type R32 ; Depression, unspecified depression type F32.9 ; History of femur fracture Z87.81 ; History of fractured kneecap Z87.81 ; Hypothyroidism , unspecified type E03.9 ; Cataract H26.9 and Gastroesophageal reflux disease without esophagitis K21.9 [facility] [id number] [place] [address] 95900- 9327 Aug, [facility] [address] 21267- 7716 Aug, Urinary incontinence, unspecified type R32 [place] [id number] [place] [address] 33291- 6579 Aug, [facility] [id number] [place] [address] 20789- 4460 Jul, [facility] [address] [place] [id number] Jul, Type 2 diabetes mellitus without complication, [...] E03.9 and Constipation, unspecified constipation type K59.00 [place] [facility] [id number] [place] [address] 36373- 7421 Jul, [place] [id number] [place] [address] 59941- 2030 Jul, [facility] [address] [place] [id number] Jul, Anemia, unspecified type D64.9 ; Acute renal failure, unspecified acute renal failure type N17.9 ; Other chronic pain G89.29 ; Obstructive sleep apnea syndrome G47.33 and Type 2 diabetes mellitus without complication, unspecified terminal press operator insulin use status E11.9 [facility] [address] [place] [address] 47715- 7939 Jul, [facility] [id number] [place] [address] 36062- 1059 Jul, [facility] [id number] [place] [address] 60572- 8594 Jul, [facility] [id number] [place] [address] 73503- 7534 Jul, [facility] [id number] [place] [address] 57637- 0821 Jul, [facility] [address] [place] [id number] Jun, Other chronic pain G89.29 ; Hayes catheter in place Z92.89 ; Chronic kidney disease (CKD), unspecified stage N18.9 and Blisters of multiple sites R23.8 [facility] [address], [place] [address]- 2113 Jun, [facility] [address], [place] [address]- 8053 Jun, [facility] [address], [place] [address]- 2628 Jun, [facility] [id number] [place] [address] 89975- 7211 Jun, [facility] [address], [place] [address]- 2859 Jun, [facility] [id number] [place] [address] 52294- 3930 Jun, [facility] [id number], [place] [address]- 1649 Jun, [facility] [id number], [place] [address]- 7240 Jun, [facility] [id number], [place] [address]- 7296 Jun, [facility] [id number], [place] [address]- 2657 Jun, [facility] [id number], [place] [address]- 6388 Jun, [facility] [id number], [place] [address]- 4122 May, [facility] [id number], [place] [address]- 8702 May, [facility] [id number], [place] [address]- 9233 May, Other chronic pain G89.29 [facility] [address] [place] [id number] May, Encounter to establish care Z76.89 ; Type 2 diabetes mellitus without complication, unspecified skilled nursing insulin use status E11.9 ; Hypothyroidism, unspecified [...] Assessed REASON FOR VISIT Controlled Med Refill 05/24/2017 PLAN OF CARE VITAL SIGNS MEDICATIONS Medication Instructions Dosage Frequency Start Date End Date Duration Status Oxycodone-Acetaminophen 10-325 MG Orally 4 times a day 1 tablet as needed 6h May, 28 days Active RESULTS No [...] Acute Kidney Injury 08/05/16 Hospitalization History UTI, Sepsis--[facility] Hospitalization History Chest pain/SOB/A-fib 02/2017 Hospitalization History Chest pain-[facility] 04/13/17 Hospitalization History UTI, respiratory failure, altered mental status-[facility] 09/13/17
--- OUTSIDE RECORDS SUMMARY | 2018-09-17 19:40 | XMS REPORT ---
Author Author CHARLOTTE LOMBARDO [facility] Address [address] [place] [address] Care Team Providers Care Front Office Administrator Name Role Phone CHARLOTTE LOMBARDO Unavailable PROBLEMS Type Condition ICD9-CM Code XVS15-DV Code Onset Dates Condition Status SNOMED Code Problem Atrial fibrillation, unspecified type I48.91 Active 56591906 Problem Decreased renal function N28.9 Active 40153462 Problem Ulcer L98.499 Active 924484881 Problem Venous stasis dermatitis of both lower extremities I87.2 Active 03680858 Problem Urinary incontinence, unspecified type R32 Active 268003878 Problem Stage 4 chronic kidney disease N18.4 Active 243748326 Problem Morbid obesity due to excess calories E66.01 Active 977904701 Problem Closed fracture of left patella, unspecified fracture morphology, sequela S82.002S Active 11987832 Problem Bladder spasms N32.89 Active 342307402 Problem Chronic fatigue R53.82 Active 26951206 Problem Primary insomnia F51.01 Active 6116324 Problem Anxiety F41.9 Active 24639340 Problem Type 2 diabetes mellitus without complication, unspecified terminal press operator insulin use status E11.9 Active 11773187 Problem Depression, unspecified depression type F32.9 Active 98787090 Problem Cataract H26.9 Active 659158974 Problem Chronic kidney disease (CKD), unspecified stage N18.9 Active 675972973 Problem Gastroesophageal reflux disease without esophagitis K21.9 Active 733424992 Problem Other chronic pain G89.29 Active 26588917 Problem Hypothyroidism, unspecified type E03.9 Active 31349210 Problem Restless leg syndrome G25.81 Active 54549953 Problem Obstructive sleep apnea syndrome G47.33 Active 36552808 Problem Perennial allergic rhinitis, unspecified allergic rhinitis trigger J30.89 Active 005201350 ALLERGIES No Information ENCOUNTERS Encounter Location Date Diagnosis [facility] [address] [place], [place] [id number] March, Arthralgia, unspecified joint M25.50 ; Abnormal urine sediment R82.90 ; Venous stasis dermatitis of both lower extremities I87.2 ; Stage 4 chronic kidney disease N18.4 and Cataract of right eye, unspecified cataract type H26.9 [place] [address] [place] [address] 08771- 9860 March, Primary insomnia F51.01 [facility] [address] [place] [id number] March, Cervicalgia M54.2 ; Acute pain of right shoulder M25.511 and Pain of left femur M89.8X5 [place] [address] [place] [id number] [place] [address] 88948- 4133 March, [place] [address] [id number] [place] [address] 87039- 3121 March, Other chronic pain G89.29 [place] [address] [place] [id number] [place] [address] 55452- 6723 Feb, [facility] [address] [place] [id number] Feb, Leg swelling M79.89 [place] [address] [place] [id number] [place] [address] 96184- 3041 Feb, Primary insomnia F51.01 [facility] [address] [place] [id number] Feb, Fever in other diseases R50.81 and Intermittent left lower quadrant abdominal pain R10.32 [place] [address] [place] [id number] [place] [address] 73661- 1715 Feb, [place] [address] [address] [id number] [place] [address] 03926- 9350 Feb, [place] [address] [address] [id number] [place] [address] 65088- 8229 Feb, Depression, unspecified depression type F32.9 ; Hypothyroidism, unspecified type E03.9 ; Type 2 diabetes mellitus without complication, unspecified fci insulin use status E11.9 and Anxiety F41.9 [place] [address] [address] Feb, Other chronic pain G89.29 [place] [address] [place] [id number] [address] Jan, Other chronic pain G89.29 [place] [address], [place] [address] 99[address] Jan, Bladder spasms N32.89 [facility] [address], [place] [address] 3[address] Jan, Bladder spasms N32.89 [place] [address] [id number] [place] [address] 14517- 9901 Dec, Bladder spasms N32.89 [place] [address], [place] [address] 9769 Dec, Depression, unspecified depression type F32.9 [place] [address], [place] [address] 0[address] Dec, [facility] [address] [place] [id number] Dec, Hypothyroidism, unspecified type E03.9 ; Depression, unspecified depression type F32.9 ; Other chronic pain G89.29 ; Urinary retention R33.9 and Atrial fibrillation, unspecified type I48.91 [place] [id number] [address] Dec, [place] [id number] [address] Dec, Other chronic pain G89.29 [place] [address] [place] [id number] [address] Nov, [place] [address] [place] [address] [id number] [id number] Nov, Other chronic pain G89.29 [place] [address], [place] [address] 4261 Nov, Other chronic pain G89.29 [facility] [address], [place] [address] 8086 Nov, [facility] [address] [place] [address] 29516- 3759 Nov, [facility] [address] [place] [address] 25264- 4338 Nov, Other chronic pain G89.29 [facility] [id number] [place] [address] 20281- 2449 Nov, Other chronic pain G89.29 [facility] [id number] [place] [address] 19117- 3519 14 Oct, 2017 [facility] [address] [place] [address] 64755- 7323 Oct, Other chronic pain G89.29 [facility] [address] [facility] [place] [id number] Oct, Weakness R53.1 ; Macrocytic anemia D53.9 ; Discolored skin L81.9 ; Other chronic pain G89.29 ; Dysuria R30.0 and Hayes catheter in place Z92.89 [facility] [address], [place] [address] 0419 07 Oct, 2017 Other chronic pain G89.29 [facility] [id number] [address] Sep, [facility] [address], [place] [address] 3896 Sep, [facility] [address] [place] [address] 49072- 8315 Sep, [facility] [id number] [place] [id number] Sep, [facility] [address] [place] [id number] [place] [id number] Sep, Other chronic pain G89.29 [facility] [id number], [place] [address]9 Sep, [facility] [address] [id number] [address] Sep, Other chronic pain G89.29 [facility] [address] [place] [address] Sep, Chronic urinary tract infection N39.0 ; Other chronic pain G89.29 ; Chronic kidney disease (CKD), unspecified stage N18.9 ; Type 2 diabetes mellitus without complication, unspecified fci insulin use status E11.9 ; Hypothyroidism, unspecified type E03.9 ; Depression, unspecified depression type F32.9 ; Cataract H26.9 ; Obstructive sleep apnea syndrome G47.33 ; Atrial fibrillation, unspecified type I48.91 ; History of femur fracture Z87.81 and [address] catheter in place Z92.89 [facility] [address], [place] [address] 9347 Sep, [facility] [address], [place] [address]- 0288 Aug, [facility] [address], [place] [address]- 6145 Aug, Other chronic pain G89.29 [facility] [address], [place] [address]- 7236 Aug, [facility] [address], [place] [address] 97[address] Aug, [facility] [id number] [address] Aug, [facility] [address], [place] [address] 7936 Aug, [facility] [address], [place] [address]- 1423 Aug, Type 2 diabetes mellitus without complication, unspecified fci insulin use status E11.9 [facility] [id number], [place] [address] 3111 Aug, Other chronic pain G89.29 [facility] [address], [place] [address]- 0206 18 Aug, 2017 [facility] [address], [place] [address] 2548 16 Aug, 2017 [facility] [id number] [place] [address] 35133 2542 22 Jul, 2017 Other chronic pain G89.29 [facility] [address] [place] [address] 35741 2541 Jul, [facility] [id number] [place] [address] 48056 2549 Jul, Dark brown urine R82.99 [facility] [address] [place] [address] 59870- 8249 Jul, Dark brown urine R82.99 [facility] [address] [place] [address] 29038 2545 14 Jul, 2017 [facility] [address] [place] [address] 27726- 0329 Jun, Other chronic pain G89.29 [facility] [address], [place] [address]- 8545 Jun, Type 2 diabetes mellitus without complication, unspecified fci insulin use status E11.9 [facility] [address], [place] [address] May, Candidiasis, intertrigo B37.2 [facility] [address] [place] [address] 23800- 9602 May, Other chronic pain G89.29 [facility] [address], [place] [address]- 4632 May, [facility] [id number] [place] [address] 43517- 7275 May, [place] [address], [place] [address]- 8487 May, Candidiasis, intertrigo B37.2 [place] [address] [id number] [place] [address] 62360- 9497 May, Atrial fibrillation, unspecified type I48.91 [place] [address] [place] [id number] [place] [address] 65780- 1603 May, Hypothyroidism, unspecified type E03.9 and Decreased renal function N28.9 [place] [address] [place] [id number] [place] [address] 91028- 3549 May, Type 2 diabetes mellitus without complication, unspecified fci insulin use status E11.9 [place] [address] [place] [id number] [place] [address] 66618- 7684 May, Dental examination Z01.20 [place] [address] [place] [id number] [place] [address] 34809- 9134 May, Chronic kidney disease (CKD), unspecified stage N18.9 ; Type 2 diabetes mellitus without complication, unspecified terminal press operator insulin use status E11.9 ; Hypothyroidism, unspecified type E03.9 ; Depression, unspecified depression type F32.9 ; Anemia, unspecified type D64.9 and Ulcer L98.499 [place] [address], [place] [address]- 6935 May, [place] [address] [place] [id number] [place] [address] 45030- 3958 Apr, Other chronic pain G89.29 [place] [address] [place] [id number] [place] [address] 11045- 8193 Apr, Other chronic pain G89.29 [place] [address] [place] [address] 40729- 7034 March, [place] [address] [place] [id number] [place] [address] 13684- 7943 March, [facility] [address], [place] [address]- 0865 March, [facility] [address] [place] [id number] [place] [address] 00500- 4374 March, Other chronic pain G89.29 [facility] [address], [place] [address]- 7710 March, [facility] [address] [place] [id number] [place] [address] 11506- 3927 Feb, [facility] [address] [place] [id number] [place] [address] 49525- 9033 Feb, Type 2 diabetes mellitus without complication, unspecified terminal press operator insulin use status E11.9 ; Candidiasis, intertrigo B37.2 ; Decubitus ulcer of left buttock, unstageable L89.320 and Pressure ulcer of contiguous region involving right buttock and hip, unspecified ulcer stage L89.40 [facility] [address] [place] [address] 53498- 5349 Feb, Atrial fibrillation, unspecified type I48.91 [facility] [address] [id number] [place] [address] 71396- 4689 Feb, [facility] [address], [place] [address]- 8641 Feb, [facility] [address], [place] [address]- 2041 Feb, Other chronic pain G89.29 [facility] [address], [place] [address]- 8476 Jan, Other chronic pain G89.29 [facility] [id number] [place] [address] 25910- 3282 Dec, [facility] [id number], [place] [address]- 5945 Dec, Lethargy R53.83 [facility] [address] [place] [address] [place] [address]- 7181 17 Dec, 2016 [facility] [address], [place] [address]- 9959 Dec, Other chronic pain G89.29 [facility] [address], [place] [address]- 4313 Nov, [facility] [address], [place] [address]- 6291 Nov, [facility] [address], [place] [address]- 5094 Nov, Other chronic pain G89.29 [facility] [address], [place] [address]- 6027 Nov, [facility] [address], [place] [address]- 9214 Nov, [facility] [address], [place] [address]- 2761 Nov, [facility] [address], [place] [address]- 0030 Oct, Cough R05 [facility] [address], [place] [address]- 8084 Oct, Urinary tract infection, site not specified N39.0 [facility] [id number], [place] [address]- 6497 Oct, Other chronic pain G89.29 [facility] [id number], [place] [address]- 8741 Oct, Type 2 diabetes mellitus without complication, [...] J30.89 ; Nausea R11.0 and Candidiasis B37.9 [facility] [id number] [place] [address] 37889- 6830 Oct, [facility] [id number] [place] [address] 74530- 9497 Oct, [facility] [id number] [place] [address] 86941- 3568 Oct, [facility] [id number] [place] [address] 28804- 2503 Oct, Chronic kidney disease (CKD), unspecified stage N18.9 [facility] [id number] [place] [address] 27640- 5762 Oct, [facility] [id number] [place] [address] 26000- 4373 Sep, Other chronic pain G89.29 [facility] [address] [id number] [place] [address] 26683- 9218 Sep, Chronic kidney disease (CKD), unspecified stage N18.9 and Senile cataract of right eye, unspecified age-related cataract type H25.9 [facility] [address], [place] [address]- 5543 Sep, [facility] [id number] [place] [address] 57421- 0404 Sep, [facility] [id number] [place] [address] 84380- 5666 Sep, [facility] [id number] [place] [address] 98777- 2991 Sep, [facility] [id number] [place] [address] 51617- 3532 Sep, [facility] [address], [place] [address]- 0725 Aug, [place] [address] [place] [address] 32266- 4968 Aug, [place] [address] [place] [address] 88922- 5589 Aug, [place] [id number] [place] [address] 23646- 6508 Aug, Encounter to establish care Z76.89 ; Other chronic pain G89.29 ; Chronic kidney disease (CKD), unspecified stage N18.9 ; Obstructive sleep apnea syndrome G47.33 ; Type 2 diabetes mellitus without complication, unspecified fci insulin use status E11.9 ; Urinary incontinence, unspecified type R32 ; Depression, unspecified depression type F32.9 ; History of femur fracture Z87.81 ; History of fractured kneecap Z87.81 ; Hypothyroidism , unspecified type E03.9 ; Cataract H26.9 and Gastroesophageal reflux disease without esophagitis K21.9 [place] [address] [place] [address] 26106- 2483 Aug, [place] [id number] [place] [address] 57846- 9067 Aug, Urinary incontinence, unspecified type R32 [place] [address] [place] [address] 22750- 1695 Aug, [place] [address] [place] [address] 21399- 8758 Jul, [facility] [address] [place] [id number] Jul, Type 2 diabetes mellitus without complication, unspecified fci insulin use status E11.9 ; Chronic kidney [...] E03.9 and Constipation, unspecified constipation type K59.00 [place] [address] [id number] [place] [address] 55223- 2890 Jul, [place] [id number] [place] [address] 07942- 0614 Jul, [address] [id number] Jul, Anemia, unspecified type D64.9 ; Acute renal failure, unspecified acute renal failure type N17.9 ; Other chronic pain G89.29 ; Obstructive sleep apnea syndrome G47.33 and Type 2 diabetes mellitus without complication, unspecified terminal press operator insulin use status E11.9 [place] [id number] [place] [address] 79885- 6899 Jul, [place] [id number] [place] [address] 73265- 8678 Jul, [place] [id number] [place] [address] 16542- 1658 Jul, [place] [id number] [place] [address] 29930- 2416 Jul, [place] [address] [place] [address] 33725- 7174 Jul, [facility] [address] [place] [id number] Jun, Other chronic pain G89.29 ; Hayes catheter in place Z92.89 ; Chronic kidney disease (CKD), unspecified stage N18.9 and Blisters of multiple sites R23.8 [place] [id number] [place] [address] 69280- 5824 Jun, [place] [id number] [place] [address] 13919- 8349 Jun, [place] [id number] [address]- 7611 Jun, [facility] [id number], [place] [address]- 1305 Jun, [facility] [address], [place] [address]- 8822 Jun, [facility] [id number], [place] [address]- 0385 Jun, [facility] [address], [place] [address]- 4844 Jun, [facility] [address], [place] [address]- 1450 Jun, [facility] [address], [place] [address]- 9685 Jun, [facility] [address], [place] [address]- 4943 Jun, [facility] [address], [place] [address]- 7544 Jun, [facility] [address], [place] [address]- 9238 May, [facility] [id number], [place] [address]- 2518 May, [facility] [id number], [place] [address]- 0307 May, Other chronic pain G89.29 [facility] [address] [place] [id number] May, Encounter to [facility] Z76.89 ; Type 2 diabetes [...] Acute Kidney Injury 08/05/16 Hospitalization History UTI, Sepsis--[facility] Hospitalization History Chest pain/SOB/A-fib 02/2017 Hospitalization History Chest pain-[facility] 04/13/17 Hospitalization History UTI, respiratory failure, altered mental status-[facility] 09/13/17
--- OUTSIDE RECORDS SUMMARY | 2018-09-17 19:41 | XMS REPORT ---
Author Author ARTI REEVES [facility] Address [address] [place] [address] Care Team Providers Care Assistant Foreman Name Role Phone LALA ARTI Unavailable PROBLEMS Type Condition ICD9-CM Code IJB02-EU Code Onset Dates Condition Status SNOMED Code Problem Atrial fibrillation, unspecified type I48.91 Active 94941598 Problem Decreased renal function N28.9 Active 12964174 Problem Ulcer L98.499 Active 886634350 Problem Venous stasis dermatitis of both lower extremities I87.2 Active 90374005 Problem Urinary incontinence, unspecified type R32 Active 689990455 Problem Stage 4 chronic kidney disease N18.4 Active 477929373 Problem Morbid obesity due to excess calories E66.01 Active 165155451 Problem Closed fracture of left patella, unspecified fracture morphology, sequela S82.002S Active 21524423 Problem Bladder spasms N32.89 Active 161629106 Problem Chronic fatigue R53.82 Active 94863506 Problem Primary insomnia F51.01 Active 6915889 Problem Anxiety F41.9 Active 39958970 Problem Type 2 diabetes mellitus without complication, unspecified mcc insulin use status E11.9 Active 77726791 Problem Depression, unspecified depression type F32.9 Active 86456334 Problem Cataract H26.9 Active 736433485 Problem Chronic kidney disease (CKD), unspecified stage N18.9 Active 780263374 Problem Gastroesophageal reflux disease without esophagitis K21.9 Active 551524577 Problem Other chronic pain G89.29 Active 75884845 Problem Hypothyroidism, unspecified type E03.9 Active 60547418 Problem Restless leg syndrome G25.81 Active 27064653 Problem Obstructive sleep apnea syndrome G47.33 Active 16330831 Problem Perennial allergic rhinitis, unspecified allergic rhinitis trigger J30.89 Active [id number] ALLERGIES No Information ENCOUNTERS Encounter Location Date Diagnosis [facility] [address] [place] [id number] March, Arthralgia, unspecified joint M25.50 ; Abnormal urine sediment R82.90 ; Venous stasis dermatitis of both lower extremities I87.2 ; Stage 4 chronic kidney disease N18.4 and Cataract of right eye, unspecified cataract type H26.9 [facility] [facility] [id number] [place] [address] 53351- 5415 March, Primary insomnia F51.01 [facility] [employer] [address] [place] [id number] March, Cervicalgia M54.2 ; Acute pain of right shoulder M25.511 and Pain of left femur M89.8X5 [place] [address] [address] March, [facility] [facility] [id number] [place] [address] 60385- 0619 March, Other chronic pain G89.29 [facility] [facility] [id number] [place] [address] 78471- 0630 Feb, [facility] [address] [place] [id number] Feb, Leg swelling M79.89 [place] [id number] [place] [address] 99878- 7025 Feb, Primary insomnia F51.01 [facility] [employer] [address] [place] [id number] Feb, Fever in other diseases R50.81 and Intermittent left lower quadrant abdominal pain R10.32 [place] [id number] [place] [address] 20986- 4655 Feb, [place] [id number] [place] [address] 11834- 6463 Feb, [place] [id number] [place] [address] 82673- 2107 Feb, Depression, unspecified depression type F32.9 ; Hypothyroidism, unspecified type E03.9 ; Type 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 [id number] [place] [id number] Jan, Other chronic pain G89.29 [place] [address] [address] 6[address] Jan, Bladder spasms N32.89 [facility] [address] [place] [address] 66000019- 3485 Jan, Bladder spasms N32.89 [facility] [id number] [place] [address] 18092- 0106 Dec, Bladder spasms N32.89 [facility] [id number] [place] [address] 84352- 6921 Dec, Depression, unspecified depression type F32.9 [facility] [address] [address] 26[address] Dec, [address] [place] [address] [place] [id number] Dec, Hypothyroidism, unspecified type E03.9 ; Depression, unspecified depression type F32.9 ; Other chronic pain G89.29 ; Urinary retention R33.9 and Atrial fibrillation, unspecified type I48.91 [facility] [id number] [place] [id number] Dec, [facility] [address] [id number] Dec, Other chronic pain G89.29 [place] [address] [id number] Nov, [place] [address] [id number] Nov, Other chronic pain G89.29 [place] [address] [address] 7258 Nov, Other chronic pain G89.29 [facility] [address] [address] 3742 Nov, [facility] [address] [address] 2335 Nov, [facility] [address] [place] [address] 07032- 9664 Nov, Other chronic pain G89.29 [facility] [address] [place] [address] 16785- 2242 Nov, Other chronic pain G89.29 [facility] [address] [place] [address] 19539- 4854 14 Oct, 2017 [facility] [address] [place] [address] 04787- 1246 Oct, Other chronic pain G89.29 [facility] [address] [place] [id number] 14 Oct, 2017 Weakness R53.1 ; Macrocytic anemia D53.9 ; Discolored skin L81.9 ; Other chronic pain G89.29 ; Dysuria R30.0 and Hayes catheter in place Z92.89 [facility] [address] [address] 4[address] 07 Oct, 2017 Other chronic pain G89.29 [facility] [id number] [place] [address] Sep, [facility] [address] [address] 5589 Sep, [facility] [address] [place] [address] 787370- 8771 Sep, [facility] [id number] [place] [id number] Sep, [facility] [id number] [place] [id number] Sep, Other chronic pain G89.29 [facility] [address] [address] Sep, 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 ; Hypothyroidism, unspecified type E03.9 ; Depression, unspecified depression type F32.9 ; Cataract H26.9 ; Obstructive sleep apnea syndrome G47.33 ; Atrial fibrillation, unspecified type I48.91 ; History of femur fracture Z87.81 and Hayes catheter in place Z92.89 [facility] [address] [address] 8044 Sep, [facility] [address] [address]- 9181 Aug, [facility] [address] [place] [address] 57053- 0355 Aug, Other chronic pain G89.29 [facility] [address] [address] 0161 Aug, [facility] [address] [address] Aug, 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 [facility] [address] [address] 3486 19 Aug, 2017 Other chronic pain G89.29 [facility] [address] [address] 6212 18 Aug, 2017 [facility] [address] [place] [address] 48592- 1063 16 Aug, 2017 [facility] [id number] [place] [address] 75962- 7893 22 Jul, 2017 Other chronic pain G89.29 [facility] [address] [place] [address] 39204- 9256 19 Jul, 2017 [facility] [id number] [place] [address] 89079- 3690 19 Jul, 2017 Dark brown urine R82.99 [facility] [address] [place] [address] 95497- 4098 19 Jul, 2017 Dark brown urine R82.99 [facility] [address] [place] [address] 64801- 0041 14 Jul, 2017 [facility] [address] [place] [address] 05375- 7498 Jun, Other chronic pain G89.29 [facility] [address] [address]- 9876 Jun, 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 mellitus without complication, 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 [facility] [address] [address]- 4257 May, Candidiasis, intertrigo B37.2 [facility] [id number] [place] [address] 11279- 7753 May, Other chronic pain G89.29 [facility] [address] [address]- 6249 May, [facility] [id number] [place] [address] 92095- 2680 May, [place] [address] [place] [address] 50147- 1059 May, Candidiasis, intertrigo B37.2 [facility] [place] [id number] [place] [address] 65128- 2309 May, Atrial fibrillation, unspecified type I48.91 [facility] [place] [id number] [place] [address] 81708- 7249 May, Hypothyroidism, unspecified type E03.9 and Decreased renal function N28.9 [facility] [id number] [place] [address] 54614- 4065 May, Type 2 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 mellitus without complication, 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 [facility] [place] [id number] [place] [address] 75308- 0409 May, Dental examination Z01.20 [facility] [place] [id number] [place] [address] 52885- 8863 May, Chronic kidney disease (CKD), unspecified stage N18.9 ; Type 2 diabetes mellitus without complication, 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 ; Hypothyroidism, unspecified type E03.9 ; Depression, unspecified depression type F32.9 ; Anemia, unspecified type D64.9 and Ulcer L98.499 [facility] [place] [address] [place] [address] 55747- 0885 May, [facility] [address] [place] [address] 53773- 0574 Apr, Other chronic pain G89.29 [facility] [id number] [place] [address] 87056- 0941 Apr, Other chronic pain G89.29 [facility] [place] [address] [place] [address] 83674- 0652 March, [facility] [id number] [place] [address] 25142- 6777 March, [facility] [address] [address]- 2205 March, [facility] [id number] [place] [address] 62095- 0998 March, Other chronic pain G89.29 [facility] [id number] [place] [address] 94463- 6215 March, [facility] [id number] [place] [address] 23052- 8051 Feb, [facility] [id number] [place] [address] 87324- 0446 Feb, Type 2 diabetes mellitus without complication, unspecified mcc insulin use status E11.9 ; Candidiasis, intertrigo B37.2 ; Decubitus ulcer of left buttock, unstageable L89.320 and Pressure ulcer of contiguous region involving right buttock and hip, unspecified ulcer stage L89.40 [facility] [address] [place] [address] 67134- 7739 Feb, Atrial fibrillation, unspecified type I48.91 [facility] [id number] [place] [address] 03893- 5636 Feb, [facility] [address] [address]- 1344 Feb, [facility] [id number] [place] [address] 62579- 6705 Feb, Other chronic pain G89.29 [facility] [address] [address]- 4708 Jan, Other chronic pain G89.29 [facility] [id number] [place] [address] 83628- 3763 Dec, [facility] [address] [address]- 9735 Dec, Lethargy R53.83 [facility] [facility] [address] [address]- 7786 17 Dec, 2016 [facility] [address] [address]- 1568 Dec, Other chronic pain G89.29 [facility] [address] [address]- 2485 Nov, [facility] [address] [address]- 1915 Nov, [facility] [address] [address]- 7914 Nov, Other chronic pain G89.29 [facility] [address] [address]- 2923 Nov, [facility] [address] [place] [address] 10487- 2159 Nov, [facility] [address] [address]- 3238 Nov, [facility] [address] [address]- 1444 Oct, Cough R05 [facility] [address] [address]- 9385 Oct, Urinary tract infection, site not specified N39.0 [facility] [address] [address]- 0083 Oct, Other chronic pain G89.29 [facility] [id number] [address]- 2494 Oct, Type 2 diabetes mellitus without complication, 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 ; Other chronic [...] [facility] [id number] [place] [address] 09336- 1672 Oct, [facility] [address] 09584- 9776 Oct, [facility] [id number] [place] [address] 97034- 8097 Oct, [facility] [address] 51147- 4658 Oct, Chronic kidney disease (CKD), unspecified stage N18.9 [facility] [facility] [address] 39249- 2825 Oct, [facility] [address] 86128- 2049 Sep, Other chronic pain G89.29 [facility] [facility] [address] 52188- 2714 Sep, Chronic kidney disease (CKD), unspecified stage N18.9 and Senile cataract of right eye, unspecified age-related cataract type H25.9 [facility] [id number] [place] [address] 51675- 8353 Sep, [facility] [id number] [place] [address] 19736- 1272 Sep, [facility] [address] 83444- 1095 Sep, [facility] [id number] [place] [address] 14543- 9712 Sep, [facility] [id number] [place] [address] 22648- 6095 Sep, [place] [address] [address]- 7843 Aug, [facility] [id number] [place] [address] 96472- 8903 Aug, [place] [id number] [place] [address] 07854- 1473 Aug, [place] [id number] [place] [address] 22934- 8541 Aug, Encounter to establish care Z76.89 ; Other chronic pain G89.29 ; Chronic kidney disease (CKD), unspecified stage N18.9 ; Obstructive sleep apnea syndrome G47.33 ; Type 2 diabetes mellitus without complication, 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 ; Urinary incontinence, unspecified type R32 ; Depression, unspecified depression type F32.9 ; History of femur fracture Z87.81 ; History of fractured kneecap Z87.81 ; Hypothyroidism , unspecified type E03.9 ; Cataract H26.9 and Gastroesophageal reflux disease without esophagitis K21.9 [facility] [address] [place] [address] 48100- 2782 Aug, [facility] [id number] [place] [address] 16904- 0493 Aug, Urinary incontinence, unspecified type R32 [facility] [address] [place] [address] 19646- 1059 Aug, [facility] [id number] [place] [address] 31696- 6593 Jul, [facility] [address] [place] [id number] Jul, Type 2 diabetes mellitus without complication, unspecified mcc insulin use status E11.9 ; Chronic kidney [...] Constipation, unspecified constipation type K59.00 [place] [id number] [place] [address] 80949- 2362 Jul, [place] [id number] [place] [address] 92984- 2006 16 Jul, [address] [employer] [id number] 14 Jul, 2016 Anemia, unspecified type D64.9 ; Acute renal failure, unspecified acute renal failure type N17.9 ; Other chronic pain G89.29 ; Obstructive sleep apnea syndrome G47.33 and Type 2 diabetes mellitus without complication, 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 [facility] [id number] [place] [address] 01113- 3451 Jul, [facility] [id number] [place] [address] 51966- 0967 Jul, [facility] [id number] [place] [address] 15070- 1155 Jul, [facility] [id number] [place] [address] 60574- 9363 Jul, [place] [id number] [place] [address] 57346- 3425 Jul, [facility] [address] [id number] Jun, Other chronic pain G89.29 ; Hayes catheter in place Z92.89 ; Chronic kidney disease (CKD), unspecified stage N18.9 and Blisters of multiple sites R23.8 [facility] [id number] [place] [address] 30352- 1454 Jun, [place] [id number] [place] [address] 01208- 1831 Jun, [facility] [address] [id number] [address]- 5266 Jun, [facility] [address] [id number] [place] [address]- 5133 Jun, [facility] [address] [id number] [place] [address]- 2744 Jun, [facility] [address] [id number] [place] [address]- 4683 Jun, [facility] [address] [id number] [place] [address]- 8449 Jun, [facility] [address] [id number] [place] [address]- 8981 Jun, [facility] [id number] [address]- 2781 Jun, [facility] [address] [address]- 6947 Jun, [facility] [id number] [address]- 1147 Jun, [facility] [address] [address]- 2784 May, [facility] [id number] [address]- 4983 May, [facility] [id number] [address]- 6474 May, Other chronic pain G89.29 [facility] [address] [id number] May, Encounter to [facility] care Z76.89 ; Type 2 diabetes [...]
--- OUTSIDE RECORDS SUMMARY | 2018-09-17 19:41 | XMS REPORT ---
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 Name Role Phone LATONYA KIM Unavailable PROBLEMS Type Condition ICD9-CM Code [id number] Code Onset Dates Condition Status SNOMED Code Problem Atrial fibrillation, unspecified type I48.91 Active 55859449 Problem Decreased renal function N28.9 Active 54648110 Problem Ulcer L98.499 Active 417219940 Problem Venous stasis dermatitis of both lower extremities I87.2 Active 90310948 Problem Urinary incontinence, unspecified type R32 Active 298621837 Problem Stage 4 chronic kidney disease N18.4 Active 182597022 Problem Morbid obesity due to excess calories E66.01 Active 409265210 Problem Closed fracture of left patella, unspecified fracture morphology, sequela S82.002S Active 41257599 Problem Bladder spasms N32.89 Active 478301378 Problem Chronic fatigue R53.82 Active 27401849 Problem Primary insomnia F51.01 Active 8333575 Problem Anxiety F41.9 Active 43166307 Problem Type 2 diabetes mellitus without complication, 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 Active 57695614 Problem Depression, unspecified depression type F32.9 Active 24060836 Problem Cataract H26.9 Active 154832033 Problem Chronic kidney disease (CKD), unspecified stage N18.9 Active 567685504 Problem Gastroesophageal reflux disease without esophagitis K21.9 Active 905792817 Problem Other chronic pain G89.29 Active 26711576 Problem Hypothyroidism, unspecified type E03.9 Active 92897269 Problem Restless leg syndrome G25.81 Active 78750796 Problem Obstructive sleep apnea syndrome G47.33 Active 88147826 Problem Perennial allergic rhinitis, unspecified allergic rhinitis trigger J30.89 Active 841369254 ALLERGIES No Information ENCOUNTERS Encounter Location Date Diagnosis Via [facility] [address] [place] [id number] March, Arthralgia, unspecified joint M25.50 ; Abnormal urine sediment R82.90 ; Venous stasis dermatitis of both lower extremities I87.2 ; Stage 4 chronic kidney disease N18.4 and Cataract of right eye, unspecified cataract type H26.9 [place] [facility] [id number] [place] [address] 64752- 0720 March, Primary insomnia F51.01 Via [facility] [address] [place] [id number] March, Cervicalgia M54.2 ; Acute pain of right shoulder M25.511 and Pain of left femur M89.8X5 [facility] [id number] [place] [address] 25517- 0594 March, [facility] [id number] [place] [address] 93592- 9468 March, Other chronic pain G89.29 [place] [id number] [place] [address] 47753- 0444 Feb, Via [facility] [address] [place] [id number] Feb, Leg swelling M79.89 [place] [id number] [place] [address] 61438- 5763 Feb, Primary insomnia F51.01 Via [facility] [address] [place] [id number] Feb, Fever in other diseases R50.81 and Intermittent left lower quadrant abdominal pain R10.32 [place] [id number] [place] [address] 51611- 3902 Feb, [place] [id number] [place] [address] 33455- 8800 Feb, [facility] [id number] [place] [address] 40675- 8072 Feb, Depression, unspecified depression type F32.9 ; Hypothyroidism, unspecified type E03.9 ; Type 2 diabetes mellitus without complication, unspecified care home insulin use status E11.9 and Anxiety F41.9 [facility] [address] [address] Feb, Other chronic pain G89.29 [place] [id number] [place] [id number] Jan, Other chronic pain G89.29 [facility] [address], [place] [address] 3250 Jan, Bladder spasms N32.89 [facility] [id number] [place] [address] 52145- 8918 Jan, Bladder spasms N32.89 [facility] [place] [id number] [place] [address] 66295- 6419 Dec, Bladder spasms N32.89 [facility] [address], [place] [address] 6736 Dec, Depression, unspecified depression type F32.9 [facility] [address], [place] [address] 9525 Dec, Via [facility] [address] [place] [id number] Dec, Hypothyroidism, unspecified type E03.9 ; Depression, unspecified depression type F32.9 ; Other chronic pain G89.29 ; Urinary retention R33.9 and Atrial fibrillation, unspecified type I48.91 [place] [id number] [id number] Dec, [facility] [id number] [address] Dec, Other chronic pain G89.29 [place] [id number] [place] [id number] Nov, [place] [id number] [address] Nov, Other chronic pain G89.29 [place] [address] [place] [address] 90224- 6826 Nov, Other chronic pain G89.29 [facility] [address], [place] [address] 6294 Nov, [facility] [address], [place] [address] 9629 Nov, [facility] [address] [place] [address] 63811- 4913 Nov, Other chronic pain G89.29 [facility] [address] [place] [address] 781070- 0177 Nov, Other chronic pain G89.29 [facility] [address] [place] [address] 99726- 4970 14 Oct, 2017 [facility] [address] [place] [address] 08479- 3728 Oct, Other chronic pain G89.29 [facility] [address] [facility] [place] [id number] Oct, Weakness R53.1 ; Macrocytic anemia D53.9 ; Discolored skin L81.9 ; Other chronic pain G89.29 ; Dysuria R30.0 and [address] catheter in place Z92.89 [facility] [address], [place] [address] 9371 Oct, Other chronic pain G89.29 [facility] [id number] [address] Sep, [facility] [id number], [place] [address] 1648 Sep, [facility] [address], [place] [address] 1820 Sep, [facility] [id number] [place] [id number] Sep, [facility] [id number] [place] [id number] Sep, Other chronic pain G89.29 [facility] [address], [place] [address]- 7860 Sep, [facility] [id number] [place] [id number] Sep, Other chronic pain G89.29 [facility] [address] [place] [id number] Sep, Chronic urinary tract infection N39.0 ; Other chronic pain G89.29 ; Chronic kidney disease (CKD), unspecified stage N18.9 ; Type 2 diabetes mellitus without complication, 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 ; Hypothyroidism, unspecified type E03.9 ; Depression, unspecified depression type F32.9 ; Cataract H26.9 ; Obstructive sleep apnea syndrome G47.33 ; Atrial fibrillation, unspecified type I48.91 ; History of femur fracture Z87.81 [address] Z92.89 [facility] [address], [place] [address] 0463 Sep, [facility] [address], [place] [address] 0434 Aug, [facility] [id number] [place] [address] 96317- 4327 Aug, Other chronic pain G89.29 [facility] [address] [address] 0789 Aug, [facility] [address], [place] [address]- 7201 Aug, [facility] [id number] [id number] Aug, [facility] [id number] [place] [address] 04295- 2856 Aug, [facility] [address], [place] [address] 3757 Aug, Type 2 diabetes mellitus without complication, 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 [facility] [address], [place] [address]- 7018 19 Aug, 2017 Other chronic pain G89.29 [facility] [address] [place] [address] 85048- 9570 18 Aug, 2017 [facility] [id number] [place] [address] 18949- 3439 16 Aug, 2017 [facility] [id number] [place] [address] 10089- 6902 22 Jul, 2017 Other chronic pain G89.29 [facility] [id number] [place] [address] 33426- 0838 Jul, [facility] [id number] [place] [address] 65226- 3147 Jul, Dark brown urine R82.99 [facility] [id number] [place] [address] 98225- 2093 Jul, Dark brown urine R82.99 [facility] [id number] [place] [address] 65177- 2345 14 Jul, 2017 [facility] [id number] [place] [address] 29171- 3664 Jun, Other chronic pain G89.29 [facility] [address] [place] [address] 02033- 9403 Jun, Type 2 diabetes mellitus without complication, unspecified care home insulin use status E11.9 [facility] [address], [place] [address]- 0837 May, Candidiasis, intertrigo B37.2 [facility] [id number] [place] [address] 02473- 9711 May, Other chronic pain G89.29 [facility] [id number] [place] [address] 53206- 7890 May, [facility] [id number] [place] [address] 94233- 7045 May, [facility] [address] [place] [address] 79282- 6695 May, Candidiasis, intertrigo B37.2 [place] [id number] [place] [address] 38554- 0321 May, Atrial fibrillation, unspecified type I48.91 [place] [id number] [place] [address] 53944- 4184 May, Hypothyroidism, unspecified type E03.9 and Decreased renal function N28.9 [place] [id number] [place] [address] 61948- 7034 May, Type 2 diabetes mellitus without complication, unspecified care home insulin use status E11.9 [facility] [place] [id number] [place] [address] 66594- 4559 May, Dental examination Z01.20 [place] [id number] [place] [address] 00241- 5268 May, Chronic kidney disease (CKD), unspecified stage N18.9 ; Type 2 diabetes mellitus without complication, 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 ; Hypothyroidism, unspecified type E03.9 ; Depression, unspecified depression type F32.9 ; Anemia, unspecified type D64.9 and Ulcer L98.499 [place] [id number] [place] [address] 09496- 8398 May, [place] [id number] [place] [address] 63432- 1801 Apr, Other chronic pain G89.29 [place] [id number] [place] [address] 72187- 0850 Apr, Other chronic pain G89.29 [facility] [id number] [place] [address] 75869- 1174 March, [place] [id number] [place] [address] 28769- 1937 March, [facility] [address], [place] [address]- 1376 March, [facility] [id number] [place] [address] 90891- 4174 March, Other chronic pain G89.29 [facility] [address], [place] [address]- 2372 March, [facility] [id number] [place] [address] 75593- 1390 Feb, [facility] [address], [place] [address]- 9332 Feb, Type 2 diabetes mellitus without complication, 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 ; Candidiasis, intertrigo B37.2 ; Decubitus ulcer of left buttock, unstageable L89.320 and Pressure ulcer of contiguous region involving right buttock and hip, unspecified ulcer stage L89.40 [facility] [address], [place] [address]- 3683 Feb, Atrial fibrillation, unspecified type I48.91 [facility] [address] [place] [address] 07100- 3117 Feb, [facility] [address], [place] [address]- 6824 Feb, [facility] [address], [place] [address]- 9801 Feb, Other chronic pain G89.29 [facility] [address], [place] [address]- 1030 Jan, Other chronic pain G89.29 [facility] [address], [place] [address]- 9217 Dec, [facility] [address], [place] [address]- 8790 Dec, Lethargy R53.83 [facility] [id number], [place] [address]- 8891 17 Dec, 2016 [facility] [address], [place] [address]- 4741 Dec, Other chronic pain G89.29 [facility] [id number], [place] [address]- 0793 Nov, [facility] [address], [place] [address]- 5593 Nov, [facility] [address], [place] [address]- 8321 Nov, Other chronic pain G89.29 [facility] [address], [place] [address]- 2068 Nov, [facility] [address], [place] [address]- 6781 Nov, [facility] [address], [place] [address]- 6856 Nov, [facility] [id number], [place] [address]- 3568 Oct, Cough R05 [facility] [address], [place] [address]- 2298 Oct, Urinary tract infection, site not specified N39.0 [facility] [id number], [place] [address]- 1721 Oct, Other chronic pain G89.29 [facility] [id number], [place] [address]- 6444 15 Oct, 2016 Type 2 diabetes mellitus without complication, 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 ; Other [...] J30.89 ; Nausea R11.0 and Candidiasis B37.9 [facility] [id number] [place] [address] 86704- 9986 Oct, [facility] [address] 27701- 3955 Oct, [facility] [address] 63735- 8398 Oct, [place] [address] 07113- 4983 Oct, Chronic kidney disease (CKD), unspecified stage N18.9 [place] [address] 32727- 7102 Oct, [place] [facility] [address] 63289- 1730 Sep, Other chronic pain G89.29 [place] [facility] [address] 93770- 5291 Sep, Chronic kidney disease (CKD), unspecified stage N18.9 and Senile cataract of right eye, unspecified age-related cataract type H25.9 [place] [id number] [place] [address] 89172- 3791 Sep, [facility] [id number] [place] [address] 77153- 6367 Sep, [place] [address] 13386- 7710 Sep, [facility] [id number] [place] [address] 98489- 2904 Sep, [facility] [id number] [place] [address] 72104- 7040 Sep, [facility] [address], [place] [address]- 0608 Aug, [place] [id number] [place] [address] 00967- 3206 Aug, [place] [id number] [place] [address] 10472- 5932 Aug, [place] [id number] [place] [address] 82378- 0393 Aug, Encounter to establish care Z76.89 ; [...] and Gastroesophageal reflux disease without esophagitis K21.9 [place] [address] [place] [address] 78269- 1836 Aug, [place] [id number] [place] [address] 19973- 6905 Aug, Urinary incontinence, unspecified type R32 [place] [address] [place] [address] 63052- 5218 Aug, [place] [address] [place] [address] 79084- 2917 Jul, [facility] [address] [place] [id number] Jul, Type 2 diabetes mellitus without complication, unspecified care home insulin use status E11.9 ; Chronic [...] Constipation, unspecified constipation type K59.00 [place] [id number] [place] [address] 71535- 2271 Jul, [place] [address] 13463- 7663 16 Jul, [address] [id number] 14 Jul, 2016 Anemia, unspecified type D64.9 ; Acute renal failure, unspecified acute renal failure type N17.9 ; Other chronic pain G89.29 ; Obstructive sleep apnea syndrome G47.33 and Type 2 diabetes mellitus without complication, 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 [place] [id number] [place] [address] 85255- 6361 Jul, [place] [address] 89784- 4734 Jul, [place] [id number] [place] [address] 91434- 4863 Jul, [place] [id number] [place] [address] 29059- 1944 Jul, [place] [id number] [place] [address] 49513- 3631 Jul, [facility] [id number] Jun, Other chronic pain G89.29 ; Hayes catheter in place Z92.89 ; Chronic kidney disease (CKD), unspecified stage N18.9 and Blisters of multiple sites R23.8 [place] [id number] [place] [address] 68985- 8885 Jun, [place] [id number] [place] [address] 40641- 4726 Jun, [place] [id number], [place] [address]- 8819 Jun, [facility] [id number], [place] [address]- 5213 Jun, [facility] [address] [facility] [id number] [place] [address]- 7889 Jun, [facility] [address], [place] [address]- 2541 Jun, [facility] [address] [facility] [id number] [place] [address]- 1209 Jun, [facility] [address] [place] [address]- 5151 Jun, [facility] [address], [place] [address]- 4544 Jun, [facility] [address] [place] [address]- 2967 Jun, [facility] [id number] [address]- 7829 Jun, [facility] [id number] [address]- 3540 May, [facility] [id number] [address]- 5275 May, [facility] [id number], [place] [address]- 7732 May, Other chronic pain G89.29 [facility] [address] [place] [id number] May, Encounter to [facility] Z76.89 ; Type 2 diabetes [...] SOCIAL HISTORY Never Assessed REASON FOR VISIT Medication question PLAN OF CARE VITAL SIGNS MEDICATIONS Unknown [...] Acute Kidney Injury 08/05/16 Hospitalization History UTI, Sepsis--[facility] Hospitalization History Chest pain/SOB/A-fib 02/2017 Hospitalization History Chest pain-[facility] 04/13/17 Hospitalization History UTI, respiratory failure, altered mental status-[facility] 09/13/17
--- OUTSIDE RECORDS SUMMARY | 2018-09-17 19:41 | XMS REPORT ---
Author Author LATONYA KIM [facility] Address [address] [place] [address] Care Team Providers [facility] [employer] Name Role Phone LATONYA KIM Unavailable PROBLEMS Type Condition ICD9-CM Code ANX65-YE Code Onset Dates Condition Status SNOMED Code Problem Obstructive sleep apnea syndrome G47.33 Active 75290782 Problem Cataract H26.9 Active 616389076 Problem Gastroesophageal reflux disease without esophagitis K21.9 Active 375768012 Problem Decreased renal function N28.9 Active 37152604 Problem Ulcer L98.499 Active 568128458 Problem Perennial allergic rhinitis, unspecified allergic rhinitis trigger J30.89 Active 269785953 Problem Other chronic pain G89.29 Active 71915685 Problem Atrial fibrillation, unspecified type I48.91 Active 66482176 Problem Restless leg syndrome G25.81 Active 10234778 Problem Morbid obesity due to excess calories E66.01 Active 141399356 Problem Chronic kidney disease (CKD), unspecified stage N18.9 Active 505611500 Problem Type 2 diabetes mellitus without complication, 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.9 Active 49242674 Problem Closed fracture of left patella, unspecified fracture morphology, sequela S82.002S Active 72072270 Problem Depression, unspecified depression type F32.9 Active 26650458 Problem Urinary incontinence, unspecified type R32 Active 469556080 Problem Hypothyroidism, unspecified type E03.9 Active 97277559 ALLERGIES Substance Reaction Event Type Date Status Tetracycline HCl Unknown Drug Allergy Feb, Active Sulfamethoxazole-Trimethoprim Unknown Drug Allergy Feb, Active Divalproex Sodium Unknown Drug Allergy Feb, Active SOCIAL HISTORY Never Assessed PLAN OF CARE Activity Details Follow Up 3 Months Reason:DM VITAL SIGNS Height 68 in 2017-03-10 Temperature 98.4 degrees Fahrenheit 2017-03-10 Heart Rate 104 bpm 2017-03-10 Respiratory Rate 20 2017-03-10 Blood pressure systolic 116 mmHg 2017-03-10 Blood pressure diastolic 64 mmHg 2017-03-10 MEDICATIONS Medication Instructions Dosage Frequency Start Date End Date Duration Status Oxygen ... by inhalation route continuous 2L Active Nystatin-Triamcinolone 193153-3.1 UNIT/GM Externally Twice a day 1 application to affected area 12h Feb, Sep, 30 days Active Lidocaine 4 % Externally Three times a day 1 application to affected area as needed 8h Feb, 30 days Active Fluticasone Propionate 50 MCG/ACT Nasally twice a day 2 sprays in each nostril 12h Active Loratadine 10 mg Orally Once a day 1 tablet 24h 90 days Active Levothyroxine Sodium 100 MCG Orally Once a day 1 tablet 24h 90 days Active Lorazepam 1 MG Orally every 8 hours 1 tablet as needed 8h Active MiraLax N/A Orally Once a day 17 gm in 4-8 oz of fluid 24h May, Active Gabapentin 400 MG Orally 3 times a day 1 capsule 8h 90 days Active BusPIRone HCl 10 mg Orally Twice a day 1 tablet 12h 90 days Active Vitamin C 500 MG Active Victoza 18 MG/3ML Inject 0.6mg x 7 days, then 1.2mg x 7 days, then 1.8mg daily Oct, March, 30 day(s) Active Amlodipine Besylate 2.5 MG Orally Once a day 1 tablet 24h 90 Active Nystatin 426254 UNIT/GM Externally Twice a day apply to skin folds 12h Oct, May, 30 days Active Zoloft 50 mg Orally Once a day 1 tablet 24h 24 Jun, 2016 90 days Active Lisinopril 10 MG Active Oxycodone-Acetaminophen 10-325 MG Orally 4 times a day 1 tablet as needed 6h 09 Feb, 2017 28 days Active Eliquis 5 mg Orally 2 times a day as directed 12h Feb, Active Flexeril 10 mg Orally 2 times a day as needed 1 tablet Oct, 5 days Active Evelyn Root 250 MG Orally 2 times a day 1 capsule as needed for upset stomach 12h Active Hospital Bed Semi electric . . as directed Jul, Lifetime Active Nystatin 030023 UNIT/GM Externally Twice a day 1 application to affected area 12h Feb, Sep, 30 days Active Zofran 8 MG Orally 3 times a day 1 tablet 8h Oct, 30 day(s) Active Pen [place] 02/04" 31G X 5 MM as directed 6h 21 Jul, 2016 Active Oxybutynin Chloride ER 15 MG 1 tablet Once a day Orally 30 day(s) 30 Active Doc-Q-Lace 100 MG Orally 2 times a day 1 capsule as needed 12h Active RESULTS Name Result Date Reference Range A1C (IN HOUSE) 2017-03-10 A1C IN HOUSE 6.1 4.3 - 5.6 % Previous A1c 6.0 Lot [id number] Exp date 2018-11 PROCEDURES Procedure Date Ordered Result Body Site GLYCATED HEMOGLOBIN TEST March 10, 2017 [facility] VISIT ESTABLISHED PATIENT March 10, 2017 IMMUNIZATIONS No Known Immunizations MEDICAL (GENERAL) HISTORY [...] Acute Kidney Injury 08/05/16 Hospitalization History UTI, Sepsis--[facility] Hospitalization History Chest pain/SOB/A-fib 02/2017 Hospitalization History Chest pain-[facility] 04/13/17 Hospitalization History UTI, respiratory failure, altered mental status-[facility] 09/13/17
--- NOTE | 2018-09-17 19:42 | Diagnostic Imaging Report ---
INDICATION: Dyspnea. Comparison with 05/11/2018. FINDINGS: There is cardiomegaly. There does appear to be increased infiltrate throughout the left lung on today's exam. Right lung shows minimal infiltrate. No evidence of pleural effusion. No pneumothorax. IMPRESSION: 1. Increasing cardiac size. 2. Diffuse interstitial and nodular alveolar infiltrate has developed throughout the left lung. No significant infiltrate noted on the right. Dictated by: Dictated on workstation # [id number]
--- OUTSIDE RECORDS SUMMARY | 2018-09-17 19:42 | XMS REPORT ---
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 Name Role Phone LEONARDO CALLOWAY Unavailable PROBLEMS Type Condition ICD9-CM Code HIZ72-VJ Code Onset Dates Condition Status SNOMED Code Problem Atrial fibrillation, unspecified type I48.91 Active 60246273 Problem Decreased renal function N28.9 Active 64970711 Problem Ulcer L98.499 Active 006493584 Problem Venous stasis dermatitis of both lower extremities I87.2 Active 39399736 Problem Urinary incontinence, unspecified type R32 Active 637314111 Problem Stage 4 chronic kidney disease N18.4 Active 461893019 Problem Morbid obesity due to excess calories E66.01 Active 059621177 Problem Closed fracture of left patella, unspecified fracture morphology, sequela S82.002S Active 56485522 Problem Bladder spasms N32.89 Active 579125008 Problem Chronic fatigue R53.82 Active 73651901 Problem Primary insomnia F51.01 Active 3301508 Problem Anxiety F41.9 Active 61254573 Problem Type 2 diabetes mellitus without complication, unspecified rn long term care insulin use status E11.9 Active 48485666 Problem Depression, unspecified depression type F32.9 Active 12432852 Problem Cataract H26.9 Active 613450156 Problem Chronic kidney disease (CKD), unspecified stage N18.9 Active 610352078 Problem Gastroesophageal reflux disease without esophagitis K21.9 Active 291488460 Problem Other chronic pain G89.29 Active 40014145 Problem Hypothyroidism, unspecified type E03.9 Active 43200469 Problem Restless leg syndrome G25.81 Active 04615562 Problem Obstructive sleep apnea syndrome G47.33 Active 02665377 Problem Perennial allergic rhinitis, unspecified allergic rhinitis trigger J30.89 Active 981226058 ALLERGIES No Information ENCOUNTERS Encounter Location Date Diagnosis Via [facility] [address] [place] [id number] March, Arthralgia, unspecified joint M25.50 ; Abnormal urine sediment R82.90 ; Venous stasis dermatitis of both lower extremities I87.2 ; Stage 4 chronic kidney disease N18.4 and Cataract of right eye, unspecified cataract type H26.9 [place] [id number] [place] [address] 08257- 3815 March, Primary insomnia F51.01 [facility] [address] [place] [id number] March, Cervicalgia M54.2 ; Acute pain of right shoulder M25.511 and Pain of left femur M89.8X5 [place] [id number] [place] [address] 78944- 3743 March, [place] [id number] [place] [address] 56152- 5040 March, Other chronic pain G89.29 [place] [address] [id number] [place] [address] 29768- 8989 Feb, Via [facility] [address] [place] [id number] Feb, Leg swelling M79.89 [place] [address] [id number] [place] [address] 94694- 5337 Feb, Primary insomnia F51.01 Via [facility] [address] [place] [id number] Feb, Fever in other diseases R50.81 and Intermittent left lower quadrant abdominal pain R10.32 [place] [id number] [place] [address] 08853- 4196 Feb, [place] [id number] [place] [address] 63767- 1495 Feb, [place] [id number] [place] [address] 76163- 3926 Feb, Depression, unspecified depression type F32.9 ; Hypothyroidism, unspecified type E03.9 ; Type 2 diabetes mellitus without complication, unspecified rn long term care insulin use status E11.9 and Anxiety F41.9 [place] [address] [address] Feb, Other chronic pain G89.29 [place] [id number] [address] Jan, Other chronic pain G89.29 [place] [address] [address] 54[address] Jan, Bladder spasms N32.89 [facility] [address] [address] 9370 Jan, Bladder spasms N32.89 [place] [address] [id number] [place] [address] 02153- 2166 Dec, Bladder spasms N32.89 [place] [address] [address] 0[address] Dec, Depression, unspecified depression type F32.9 [place] [address] [address] Dec, Via [facility] [address] [place] [id number] Dec, Hypothyroidism, unspecified type E03.9 ; Depression, unspecified depression type F32.9 ; Other chronic pain G89.29 ; Urinary retention R33.9 and Atrial fibrillation, unspecified type I48.91 [place] [id number] [address] Dec, [place] [id number][place] [id number] Dec, Other chronic pain G89.29 [place] [id number] [id number] Nov, [place] [id number] [id number] Nov, Other chronic pain G89.29 [place] [address] [address] 2211 Nov, Other chronic pain G89.29 [facility] [address] [address] 3238 Nov, [facility] [id number] [place] [address] 87386- 5528 Nov, [facility] [address] [place] [address] 76057- 3476 Nov, Other chronic pain G89.29 [facility] [id number] [place] [address] 62670- 2748 Nov, Other chronic pain G89.29 [facility] [id number] [place] [address] 84501- 4425 14 Oct, 2017 [facility] [address] [place] [address] 80330- 8975 Oct, Other chronic pain G89.[address] [facility] [address] [facility] [place] [id number] Oct, Weakness R53.1 ; Macrocytic anemia D53.9 ; Discolored skin L81.9 ; Other chronic pain G89.29 ; Dysuria R30.0 and Hayes catheter in place Z92.89 [facility] [address] [address] 5778 07 Oct, 2017 Other chronic pain G89.29 [facility] [id number] [address] Sep, [facility] [address] [address] 8902 Sep, [facility] [address] [place] [address] 21343- 0855 Sep, [facility] [id number] [place] [id number] Sep, [facility] [id number] [place] [id number] Sep, Other chronic pain G89.29 [facility] [id number] [address] 0755 Sep, [facility] [id number] [id number] Sep, Other chronic pain G89.[address] [facility] [address] [place] [id number] Sep, Chronic urinary tract infection N39.0 ; Other chronic pain G89.29 ; Chronic kidney disease (CKD), unspecified stage N18.9 ; Type 2 diabetes mellitus without complication, unspecified rn long term care insulin use status E11.9 ; Hypothyroidism, unspecified type E03.9 ; Depression, unspecified depression type F32.9 ; Cataract H26.9 ; Obstructive sleep apnea syndrome G47.33 ; Atrial fibrillation, unspecified type I48.91 ; History of femur fracture Z87.81 and [address] catheter in place Z92.89 [facility] [address] [address] 0132 Sep, [facility] [address] [address] 9327 Aug, [facility] [address] [address] 6196 Aug, Other chronic pain G89.29 [facility] [address] [address] 0034 Aug, [facility] [id number] [address] 9497 Aug, [facility] [id number] [id number] Aug, [facility] [address] [address] 7958 Aug, [facility] [address] [address] 8407 Aug, Type 2 diabetes mellitus without complication, unspecified rn long term care insulin use status E11.9 [facility] [id number] [address] 7798 Aug, Other chronic pain G89.29 [facility] [address] [address] 8586 18 Aug, 2017 [facility] [address] [address] 2545 16 Aug, 2017 [facility] [id number] [place] [address] 17882 2541 22 Jul, 2017 Other chronic pain G89.29 [facility] [id number] [place] [address] 84069 2540 Jul, [facility] [id number] [place] [address] 63616 2541 Jul, Dark brown urine R82.99 [facility] [id number] [place] [address] 00099- 7231 Jul, Dark brown urine R82.99 [facility] [id number] [place] [address] 34200 2541 14 Jul, 2017 [facility] [id number] [place] [address] 85273- 4222 Jun, Other chronic pain G89.29 [facility] [address] [address]- 2914 Jun, Type 2 diabetes mellitus without complication, unspecified rn long term care insulin use status E11.9 [facility] [address] [address]- 1457 May, Candidiasis, intertrigo B37.2 [facility] [id number] [place] [address] 21715- 3322 May, Other chronic pain G89.29 [facility] [address] [address]- 0463 May, [facility] [id number] [place] [address] 16971- 7480 May, [place] [address] [address]- 2659 May, Candidiasis, intertrigo B37.2 [place] [address] [id number] [place] [address] 41321- 9322 May, Atrial fibrillation, unspecified type I48.91 [place] [address] [id number] [place] [address] 23049- 5364 May, Hypothyroidism, unspecified type E03.9 and Decreased renal function N28.9 [place] [address] [address] [id number] [place] [address] 19067- 4059 May, Type 2 diabetes mellitus without complication, unspecified rn long term care insulin use status E11.9 [place] [address] [id number] [place] [address] 70309- 8393 May, Dental examination Z01.20 [place] [address] [address] [id number] [place] [address] 53809- 3091 May, Chronic kidney disease (CKD), unspecified stage N18.9 ; Type 2 diabetes mellitus without complication, unspecified rn long term care insulin use status E11.9 ; Hypothyroidism, unspecified type E03.9 ; Depression, unspecified depression type F32.9 ; Anemia, unspecified type D64.9 and Ulcer L98.499 [place] [address] [address]- 4016 May, [place] [address] [id number] [place] [address] 44680- 4576 Apr, Other chronic pain G89.29 [place] [address] [id number] [place] [address] 68806- 1850 Apr, Other chronic pain G89.29 [place] [id number] [place] [address] 17361- 5241 March, [place] [address] [id number] [place] [address] 28439- 6637 March, [facility] [address] [address]- 4395 March, [facility] [address] [id number] [place] [address] 66043- 0817 March, Other chronic pain G89.29 [facility] [address] [address]- 7019 March, [facility] [address] [id number] [place] [address] 53353- 4703 Feb, [facility] [address] [id number] [place] [address] 06342- 8868 Feb, Type 2 diabetes mellitus without complication, unspecified correction insulin use status E11.9 ; Candidiasis, intertrigo B37.2 ; Decubitus ulcer of left buttock, unstageable L89.320 and Pressure ulcer of contiguous region involving right buttock and hip, unspecified ulcer stage L89.40 [facility] [address] [place] [address] 44007- 0144 Feb, Atrial fibrillation, unspecified type I48.91 [facility] [address] [id number] [place] [address] 20534- 5061 Feb, [facility] [address] [address]- 5483 Feb, [facility] [address] [address]- 5437 Feb, Other chronic pain G89.29 [facility] [address] [address]- 7725 Jan, Other chronic pain G89.29 [facility] [id number] [place] [address] 69198- 6769 Dec, [facility] [id number] [address]- 7034 Dec, Lethargy R53.83 [facility] [address] [place] [address]- 0193 17 Dec, 2016 [facility] [address] [address]- 7462 Dec, Other chronic pain G89.29 [facility] [id number] [address]- 5531 Nov, [facility] [id number] [address]- 8995 Nov, [facility] [id number] [address]- 9351 Nov, Other chronic pain G89.29 [facility] [address] [address]- 5942 Nov, [facility] [id number] [address]- 8600 Nov, [facility] [id number] [address]- 3354 Nov, [facility] [id number] [address]- 8034 Oct, Cough R05 [facility] [address] [address]- 0239 Oct, Urinary tract infection, site not specified N39.0 [facility] [id number] [address]- 1504 Oct, Other chronic pain G89.29 [facility] [id number] [address]- 0391 Oct, Type 2 diabetes mellitus without complication, unspecified rn long term care insulin use status E11.9 [...] J30.89 ; Nausea R11.0 and Candidiasis B37.9 [facility] [id number] [place] [address] 39368- 6796 Oct, [facility] [id number] [place] [address] 56937- 3798 Oct, [facility] [id number] [place] [address] 63359- 3894 Oct, [facility] [id number] [place] [address] 24999- 1498 Oct, Chronic kidney disease (CKD), unspecified stage N18.9 [facility] [id number] [place] [address] 29267- 2029 Oct, [facility] [id number] [place] [address] 99603- 0033 Sep, Other chronic pain G89.29 [facility] [id number] [place] [address] 99130- 0559 Sep, Chronic kidney disease (CKD), unspecified stage N18.9 and Senile cataract of right eye, unspecified age-related cataract type H25.9 [facility] [address] [address]- 7145 Sep, [facility] [id number] [place] [address] 43786- 4284 Sep, [facility] [id number] [place] [address] 27851- 6092 Sep, [facility] [id number] [place] [address] 94593- 8774 Sep, [facility] [id number] [place] [address] 52434- 7087 Sep, [facility] [id number] [address]- 2484 Aug, [place] [id number] [place] [address] 56534- 5861 Aug, [place] [id number] [place] [address] 12823- 1674 Aug, [place] [id number] [place] [address] 78420- 2356 Aug, Encounter to establish care Z76.89 ; [...] reflux disease without esophagitis K21.9 [place] [id number] [place] [address] 68398- 2967 Aug, [place] [id number] [place] [address] 59502- 6285 Aug, Urinary incontinence, unspecified type R32 [place] [id number] [place] [address] 90921- 0133 Aug, [place] [id number] [place] [address] 42101- 8929 Jul, [facility] [address] [place] [id number] Jul, Type 2 diabetes mellitus without complication, unspecified rn long term care insulin use status E11.9 [...] E03.9 and Constipation, unspecified constipation type K59.00 [place] [address] [id number] [place] [address] 56740- 3399 Jul, [place] [id number] [place] [address] 14511- 1000 Jul, [address] [id number] Jul, Anemia, unspecified type D64.9 ; Acute renal failure, unspecified acute renal failure type N17.9 ; Other chronic pain G89.29 ; Obstructive sleep apnea syndrome G47.33 and Type 2 diabetes mellitus without complication, unspecified correction insulin use status E11.9 [place] [id number] [place] [address] 44549- 5097 Jul, [place] [id number] [place] [address] 94784- 8589 Jul, [place] [id number] [place] [address] 27788- 1773 Jul, [place] [id number] [place] [address] 16500- 1535 Jul, [place] [id number] [place] [address] 25370- 6669 Jul, [facility] [address] [place] [id number] Jun, Other chronic pain G89.29 ; Hayes catheter in place Z92.89 ; Chronic kidney disease (CKD), unspecified stage N18.9 and Blisters of multiple sites R23.8 [place] [id number] [place] [address] 35639- 1996 Jun, [place] [id number] [place] [address] 73148- 4980 Jun, [place] [id number] [address]- 7048 Jun, [facility] [id number] [address]- 9923 Jun, [facility] [address] [address]- 3141 Jun, [facility] [id number] [address]- 9362 Jun, [facility] [id number] [address]- 3561 Jun, [facility] [id number] [address]- 5649 Jun, [facility] [id number] [address]- 1195 Jun, [facility] [id number] [address]- 0211 Jun, [facility] [id number] [address]- 3405 Jun, [facility] [id number] [address]- 1868 May, [facility] [id number] [address]- 4897 May, [facility] [id number] [address]- 4811 May, Other chronic pain G89.29 [facility] [address] [place] [id number] May, Encounter to [facility] care Z76.89 ; Type 2 diabetes mellitus without complication, unspecified rn long term care insulin use status E11.9 [...] Acute Kidney Injury 08/05/16 Hospitalization History UTI, Sepsis--[facility] Hospitalization History Chest pain/SOB/A-fib 02/2017 Hospitalization History Chest pain-[facility] 04/13/17 Hospitalization History UTI, respiratory failure, altered mental status-[facility] 09/13/17
--- OUTSIDE RECORDS SUMMARY | 2018-09-17 19:43 | XMS REPORT ---
Author Author LATONYA KIM [facility] Address [address] [place] [address] Care Team Providers Care Golf Caddie Name Role Phone LATONYA KIM Unavailable PROBLEMS Type Condition ICD9-CM Code SQM50-NI Code Onset Dates Condition Status SNOMED Code Problem Ulcer L98.499 Active 317860699 Problem Chronic fatigue R53.82 Active 66092122 Problem Decreased renal function N28.9 Active 44852918 Problem Nephrolithiasis N20.0 Active 98261399 Problem Chronic kidney disease (CKD), unspecified stage N18.9 Active 656824814 Problem Venous stasis dermatitis of both lower extremities I87.2 Active 94924499 Problem Urinary incontinence, unspecified type R32 Active 992174908 Problem Morbid obesity due to excess calories E66.01 Active 705405042 Problem Anxiety F41.9 Active 94121628 Problem Bladder spasms N32.89 Active 465833386 Problem Stage 4 chronic kidney disease N18.4 Active 019462269 Problem Primary insomnia F51.01 Active 2992988 Problem Hypothyroidism, unspecified type E03.9 Active 16620575 Problem Cataract H26.9 Active 487253549 Problem Type 2 diabetes mellitus without complication, unspecified medical terminologist insulin use status E11.9 Active 85451059 Problem Depression, unspecified depression type F32.9 Active 16995213 Problem Other chronic pain G89.29 Active 56891587 Problem Perennial allergic rhinitis, unspecified allergic rhinitis trigger J30.89 Active 633477031 Problem Obstructive sleep apnea syndrome G47.33 Active 38039859 Problem Restless leg syndrome G25.81 Active 43151960 Problem Closed fracture of left patella, unspecified fracture morphology, sequela S82.002S Active 38317038 Problem Gastroesophageal reflux disease without esophagitis K21.9 Active 969097359 Problem Atrial fibrillation, unspecified type I48.91 Active 52640875 ALLERGIES No Information ENCOUNTERS Encounter Location Date Diagnosis [facility] [id number] [place] [address] 94191- 6840 May, Primary insomnia F51.01 and Arthralgia, unspecified joint M25.50 [facility] [id number] [place] [address] 91443- 6002 May, Other chronic pain G89.29 [address] [employer] [address] [place] [id number] May, Nephrolithiasis N20.0 ; Cataract H26.9 and Macrocytic anemia D53.9 [facility] [id number] [place] [address] 12859- 9980 May, [place] [id number] [place] [address] 30559- 7369 Apr, [place] [id number] [place] [address] 83468- 8910 Apr, [place] [id number] [place] [address] 75233- 6925 Apr, Primary insomnia F51.01 [facility] [id number] [place] [address] 46460- 7809 Apr, [place] [id number] [place] [address] 84093- 7024 March, Other chronic pain G89.29 [address] [facility] [address] [place] [id number] March, Arthralgia, unspecified joint M25.50 ; Abnormal urine sediment R82.90 ; Venous stasis dermatitis of both lower extremities I87.2 ; Stage 4 chronic kidney disease N18.4 and Cataract of right eye, unspecified cataract type H26.9 [place] [address] [place] [address] 85024- 7601 March, Primary insomnia F51.01 [address] [employer] [address] [place] [id number] March, Cervicalgia M54.2 ; Acute pain of right shoulder M25.511 and Pain of left femur M89.8X5 [place] [address] [place] [address] 31813- 3394 March, [place] [address] 53274- 1081 March, Other chronic pain G89.29 [place] [id number] [place] [address] 62503- 4324 Feb, Via [facility] [address] [place] [id number] Feb, Leg swelling M79.89 [place] [id number] [place] [address] 79236- 3752 Feb, Primary insomnia F51.01 [address] [facility] [address] [place] [id number] Feb, Fever in other diseases R50.81 and Intermittent left lower quadrant abdominal pain R10.32 [place] [id number] [place] [address] 98270- 8811 Feb, [place] [id number] [place] [address] 38518- 1990 Feb, [place] [id number] [place] [address] 60049- 3457 Feb, Depression, unspecified depression type F32.9 ; Hypothyroidism, unspecified type E03.9 ; Type 2 diabetes mellitus without complication, unspecified nursing home insulin use status E11.9 and Anxiety F41.9 [place] [address] [place] [address] 62322- 9223 Feb, Other chronic pain G89.29 [place] [id number] [place] [address] [id number] Jan, Other chronic pain G89.29 [place] [id number] [place] [address] 24422- 7766 Jan, Bladder spasms N32.89 [place] [id number] [place] [address] 24135- 1735 Jan, Bladder spasms N32.89 [facility] [address] [address] 8861 Dec, Bladder spasms N32.89 [facility] [address] [address] 3663 Dec, Depression, unspecified depression type F32.9 [facility] [address] [place] [address] 07774- 9286 Dec, Via [facility] [address] [place] [id number] Dec, Hypothyroidism, unspecified type E03.9 ; Depression, unspecified depression type F32.9 ; Other chronic pain G89.29 ; Urinary retention R33.9 and Atrial fibrillation, unspecified type I48.91 [facility] [id number] [place] [address] [id number] Dec, [facility] [id number] [place] [address] [id number] Dec, Other chronic pain G89.29 [facility] [id number] [place] [address] [id number] Nov, [facility] [id number] [place] [address] [id number] Nov, Other chronic pain G89.29 [facility] [address] [address] 0662 Nov, Other chronic pain G89.29 [facility] [address] [address] 0691 Nov, [facility] [address] [place] [address] [id number]- 8899 Nov, [facility] [address] [place] [address] 737460- 0100 Nov, Other chronic pain G89.29 [facility] [address] [place] [address] 36491- 9005 Nov, Other chronic pain G89.29 [facility] [address] [address]- 4225 Oct, [facility] [address] [place] [address] 85387- 0729 Oct, Other chronic pain G89.29 [address] [facility] [address] [place] [id number] Oct, Weakness R53.1 ; Macrocytic anemia D53.9 ; Discolored skin L81.9 ; Other chronic pain G89.29 ; Dysuria R30.0 and Hayes catheter in place Z92.89 [facility] [address] [address]- 8772 Oct, Other chronic pain G89.29 [facility] [id number] [id number] Sep, [facility] [address] [place] [address] 86231- 1357 Sep, [facility] [address] [address]- 5505 Sep, [facility] [id number] [place] [address] [id number] Sep, [facility] [id number] [place] [address] [id number] Sep, Other chronic pain G89.29 [facility] [address] [place] [address] 81763- 5067 Sep, [facility] [id number] [id number] Sep, Other chronic pain G89.29 [address] [facility] [address] [place] [id number] Sep, Chronic urinary tract infection N39.0 ; [...] place Z92.89 [facility] [address] [address]- 2533 Sep, [facility] [id number] [place] [address] 79610- 3467 Aug, [facility] [id number] [place] [address] 26528- 9367 Aug, Other chronic pain G89.29 [facility] [id number] [place] [address] 63389- 5760 Aug, [facility] [id number] [place] [address] 17759- 7509 Aug, [facility] [id number] [place] [address] [id number] Aug, [facility] [id number] [place] [address] 59050- 2349 Aug, [facility] [id number] [place] [address] 62270- 1054 Aug, Type 2 diabetes mellitus without complication, unspecified nursing home insulin use status E11.9 [facility] [id number] [place] [address] 34128- 6558 Aug, Other chronic pain G89.29 [facility] [address] [address]- 1810 Aug, [facility] [id number] [place] [address] 09882- 4592 Aug, [facility] [id number] [place] [address] 57994- 7364 Jul, Other chronic pain G89.29 [facility] [address] [place] [address]- 3946 19 Jul, 2017 [facility] [address] [address]- 1478 Jul, Dark brown urine R82.99 [facility] [address] [address]- 8796 Jul, Dark brown urine R82.99 [facility] [id number] [place] [address] 95576- 5076 14 Jul, 2017 [facility] [address] [place] [address] 26138- 0276 Jun, Other chronic pain G89.29 [place] [address] [place] [address] 90171- 2234 Jun, Type 2 diabetes mellitus without complication, unspecified medical terminologist insulin use status E11.9 [place] [id number] [place] [address] 81438- 3299 May, Candidiasis, intertrigo B37.2 [place] [address] [place] [address] 97139- 1698 May, Other chronic pain G89.29 [facility] [address] [address]- 3724 May, [place] [address] [address]- 1847 May, [facility] [address] [place] [address] 81453- 8623 May, Candidiasis, intertrigo B37.2 [facility] [address] [place] [address] 34669- 0132 May, Atrial fibrillation, unspecified type I48.91 [place] [address] [address]- 8834 May, Hypothyroidism, unspecified type E03.9 and Decreased renal function N28.9 [facility] [address] [address]- 4699 May, Type 2 diabetes mellitus without complication, unspecified medical terminologist insulin use status E11.9 [facility] [address] [address]- 0484 May, Dental examination Z01.20 [facility] [address] [address]- 6044 May, Chronic kidney disease (CKD), unspecified stage N18.9 ; Type 2 diabetes mellitus without complication, unspecified nursing home insulin use status E11.9 ; Hypothyroidism, unspecified type E03.9 ; Depression, unspecified depression type F32.9 ; Anemia, unspecified type D64.9 and Ulcer L98.499 [facility] [address] [address]- 5824 May, [facility] [id number] [address]- 4070 Apr, Other chronic pain G89.29 [facility] [address] [address]- 9110 Apr, Other chronic pain G89.29 [facility] [address], [place] [address]- 7548 March, [facility] [address] [address]- 0714 March, [facility] [address] [address]- 5069 March, [facility] [address] [address]- 7592 March, Other chronic pain G89.29 [facility] [address] 9418 March, [facility] [address] [address]- 7680 Feb, [facility] [id number] [place] [address] 21044- 1277 Feb, Type 2 diabetes mellitus without complication, unspecified nursing home insulin use status E11.9 ; Candidiasis, intertrigo B37.2 ; Decubitus ulcer of left buttock, unstageable L89.320 and Pressure ulcer of contiguous region involving right buttock and hip, unspecified ulcer stage L89.40 [place] [id number] [place] [address] 77136- 4665 Feb, Atrial fibrillation, unspecified type I48.91 [facility] [id number] [place] [address] 35181- 2942 Feb, [facility] [id number] [place] [address] 22144- 0926 Feb, [place] [id number] [place] [address] 08912- 9983 Feb, Other chronic pain G89.29 [place] [id number] [place] [address] 55990- 2103 Jan, Other chronic pain G89.29 [facility] [id number] [place] [address] 84552- 3144 Dec, [facility] [id number] [place] [address] 64326- 3032 Dec, Lethargy R53.83 [place] [id number] [place] [address] 30137- 2562 Dec, [facility] [id number] [place] [address] 59945- 5556 Dec, Other chronic pain G89.29 [facility] [id number] [place] [address] 53116- 0832 Nov, [facility] [address] [place] [address] 35718- 0715 Nov, [facility] [id number] [place] [address] 38990- 2717 Nov, Other chronic pain G89.29 [facility] [address] [address]- 3025 Nov, [facility] [address] [place] [address] 82299- 6949 Nov, [facility] [address] [place] [address] 43463- 7436 Nov, [facility] [address] [place] [address] 38307- 6310 Oct, Cough R05 [place] [id number] [place] [address] 26271- 3505 Oct, Urinary tract infection, site not specified N39.0 [place] [address] [place] [address] 60705- 7503 16 Oct, 2016 Other chronic pain G89.29 [place] [address] [place] [address] 17069- 9948 Oct, Type 2 diabetes mellitus without complication, unspecified nursing home insulin use status E11.9 ; Other chronic [...] J30.89 ; Nausea R11.0 and Candidiasis B37.9 [place] [address] [place] [address] 04597- 2817 Oct, [place] [address] [address]- 9351 Oct, [place] [address] [place] [address] 18933- 1573 Oct, [facility] [address] [address]- 0215 Oct, Chronic kidney disease (CKD), unspecified stage N18.9 [facility] [id number] [address]- 8245 Oct, [facility] [address] [address]- 0075 Sep, Other chronic pain G89.29 [facility] [address] [place] [address]- 4141 Sep, Chronic kidney disease (CKD), unspecified stage N18.9 and Senile cataract of right eye, unspecified age-related cataract type H25.9 [facility] [address] [place] [address]- 4320 Sep, [facility] [id number] [address]- 7764 Sep, [facility] [address] [address]- 3693 Sep, [facility] [address] [address]- 2594 Sep, [facility] [address], [place] [address]- 4677 Sep, [facility] [address], [place] [address]- 3459 Aug, [facility] [address], [place] [address]- 9425 Aug, [facility] [address], [place] [address]- 8664 Aug, [facility] [address], [place] [address]- 6654 Aug, Encounter to establish care Z76.89 ; Other chronic pain G89.29 ; Chronic kidney disease (CKD), unspecified stage N18.9 ; Obstructive sleep apnea syndrome G47.33 ; Type 2 diabetes mellitus without complication, unspecified nursing home insulin use status E11.9 ; Urinary incontinence, unspecified type R32 ; Depression, unspecified depression type F32.9 ; History of femur fracture Z87.81 ; History of fractured kneecap Z87.81 ; Hypothyroidism , unspecified type E03.9 ; Cataract H26.9 and Gastroesophageal reflux disease without esophagitis K21.9 [place] [id number] [place] [address] 84974- 3893 Aug, [place] [id number] [place] [address] 98889- 5770 Aug, Urinary incontinence, unspecified type R32 [place] [id number] [place] [address] 91025- 4278 Aug, [place] [id number] [place] [address] 27137- 5361 Jul, [facility] [id number] Jul, Type 2 diabetes mellitus without complication, unspecified medical terminologist insulin use status E11.9 ; Chronic kidney [...] Constipation, unspecified constipation type K59.00 [id number] [place] [address] 62687- 3256 Jul, [place] [id number] [place] [address] 03161- 6874 Jul, [facility] [address] [place] [id number] Jul, Anemia, unspecified type D64.9 ; Acute renal failure, unspecified acute renal failure type N17.9 ; Other chronic pain G89.29 ; Obstructive sleep apnea syndrome G47.33 and Type 2 diabetes mellitus without complication, unspecified nursing home insulin use status E11.9 [facility] [address] [address]- 8935 Jul, [facility] [id number] [place] [address] 50095- 1219 Jul, [facility] [id number] [place] [address] 88747- 1852 Jul, [facility] [id number] [place] [address] 96513- 4341 Jul, [facility] [id number] [place] [address] 76842- 2847 Jul, [facility] [address] [place] [id number] Jun, Other chronic pain G89.29 ; Hayes catheter in place Z92.89 ; Chronic kidney disease (CKD), unspecified stage N18.9 and Blisters of multiple sites R23.8 [facility] [address] [place] [address] 83605- 5892 Jun, [facility] [address], [place] [address]- 5229 Jun, [facility] [address] [address]- 5687 Jun, [facility] [address] [place] [address] 21481- 6975 Jun, [facility] [id number] [place] [address] 24347- 5949 Jun, [facility] [address] [address]- 4199 Jun, [facility] [id number] [place] [address] 78262- 7323 Jun, [facility] [id number], [place] [address]- 1520 Jun, [facility] [id number], [place] [address]- 4098 Jun, [facility] [id number], [place] [address]- 3021 Jun, [facility] [address], [place] [address]- 5375 Jun, [facility] [id number] [address]- 9474 May, [facility] [id number] [address]- 3896 May, [facility] [id number] [address]- 7081 May, Other chronic pain G89.29 [facility] [address] [place] [id number] May, Encounter to establish care Z76.89 ; Type 2 diabetes mellitus without complication, unspecified medical terminologist insulin use status E11.9 ; Hypothyroidism, unspecified [...] SOCIAL HISTORY Never Assessed REASON FOR VISIT COntrolled meds PLAN OF CARE VITAL SIGNS MEDICATIONS Unknown [...] Acute Kidney Injury 08/05/16 Hospitalization History UTI, Sepsis--[facility] Hospitalization History Chest pain/SOB/A-fib 02/2017 Hospitalization History Chest pain-[facility] 04/13/17 Hospitalization History UTI, respiratory failure, altered mental status-[facility] 09/13/17
--- OUTSIDE RECORDS SUMMARY | 2018-09-17 19:43 | XMS REPORT ---
Author Author LATONYA KIM 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 Name Role Phone LATONYA KIM Unavailable PROBLEMS Type Condition ICD9-CM Code DHA79-WX Code Onset Dates Condition Status SNOMED Code Problem Cataract H26.9 Active 848224362 Problem Restless leg syndrome G25.81 Active 48423705 Problem Other chronic pain G89.29 Active 79258388 Problem Bladder spasms N32.89 Active 363995076 Problem Chronic fatigue R53.82 Active 40667302 Problem Atrial fibrillation, unspecified type I48.91 Active 70250119 Problem Perennial allergic rhinitis, unspecified allergic rhinitis trigger J30.89 Active 624657976 Problem Decreased renal function N28.9 Active 18555055 Problem Ulcer L98.499 Active 332352482 Problem Morbid obesity due to excess calories E66.01 Active 720154316 Problem Urinary incontinence, unspecified type R32 Active 136795889 Problem Closed fracture of left patella, unspecified fracture morphology, sequela S82.002S Active 67564177 Problem Depression, unspecified depression type F32.9 Active 83406532 Problem Hypothyroidism, unspecified type E03.9 Active 55639006 Problem Chronic kidney disease (CKD), unspecified stage N18.9 Active 786725508 Problem Obstructive sleep apnea syndrome G47.33 Active 05693728 Problem Type 2 diabetes mellitus without complication, unspecified signal helper insulin use status E11.9 Active 87583054 Problem Gastroesophageal reflux disease without esophagitis K21.9 Active 526834935 ALLERGIES No Information ENCOUNTERS Encounter Location Date Diagnosis [facility] [address] [facility] [id number] [address] Feb, Other chronic pain G89.29 [facility] [address] [id number] [id number] Jan, Other chronic pain G89.29 [facility] [address] [address] Jan, Bladder spasms N32.89 [facility] [address] [address] Jan, Bladder spasms N32.89 [facility] [address], [place] [address] Dec, Bladder spasms N32.89 [facility] [address], [place] [address] Dec, Depression, unspecified depression type F32.9 [facility] [address] [place] [address]05- 0652 Dec, [facility] [address] [facility] [place] [id number] Dec, Hypothyroidism, unspecified type E03.9 ; Depression, unspecified depression type F32.9 ; Other chronic pain G89.29 ; Urinary retention R33.9 and Atrial fibrillation, unspecified type I48.91 [facility] [id number] [id number] Dec, [facility] [id number] [place] [id number] Dec, Other chronic pain G89.29 [facility] [id number] [id number] Nov, [facility] [address] [id number] [id number] Nov, Other chronic pain G89.29 [facility] [address], [place] [address] Nov, Other chronic pain G89.29 [facility] [address], [place] [address] 1706 Nov, [facility] [address] [address] Nov, [facility] [address] [id number] [address] [address] Nov, Other chronic pain G89.29 [facility] [address], [place] [address] 6[address] Nov, Other chronic pain G89.29 [facility] [address] [address] 14 Oct, 2017 [facility] [address] [place] [address] [id number]- 1196 Oct, Other chronic pain G89.29 [address] [facility] [address] [facility] [place] [id number] Oct, Weakness R53.1 ; Macrocytic anemia D53.9 ; Discolored skin L81.9 ; Other chronic pain G89.29 ; Dysuria R30.0 and Hayes catheter in place Z92.89 [facility] [address], [place] [address] Oct, Other chronic pain G89.29 [facility] [id number] [place] [id number] Sep, [facility] [address], [place] [address] 8[address] Sep, [facility] [address] [address] [address]29 Sep, [facility] [id number] [place] [id number] Sep, [facility] [id number] [place] [id number] Sep, Other chronic pain G89.29 [facility] [address], [place] [address] 47[address] Sep, [facility] [address] [id number] [id number] Sep, Other chronic pain G89.29 [facility] [address] [place] [id number] Sep, Chronic urinary tract infection N39.0 ; Other chronic pain G89.29 ; Chronic kidney disease (CKD), unspecified stage N18.9 ; Type 2 diabetes mellitus without complication, unspecified signal helper insulin use status E11.9 ; Hypothyroidism, unspecified type E03.9 ; Depression, unspecified depression type F32.9 ; Cataract H26.9 ; Obstructive sleep apnea syndrome G47.33 ; Atrial fibrillation, unspecified type I48.91 ; History of femur fracture Z87.81 and [address] catheter [address] place Z92.89 [facility] [id number] [place] [address] [id number]- 9561 Sep, [facility] [id number] [place] [address] 64468- 8755 Aug, [facility] [id number] [place] [address] 37876- 1853 Aug, Other chronic pain G89.29 [facility] [id number] [place] [address] 15135- 9736 Aug, [facility] [id number] [place] [address] 58940- 7572 Aug, [facility] [id number] [place] [address] [phone] Aug, [facility] [address] [place] [address] 12153- 2681 Aug, [facility] [id number] [place] [address] 40063- 4291 Aug, Type 2 diabetes mellitus without complication, unspecified skilled nursing insulin use status E11.9 [facility] [id number] [place] [address] 36814- 1125 Aug, Other chronic pain G89.29 [facility] [id number] [place] [address] 40311- 5932 Aug, [facility] [address] [id number] [address] 5616 16 Aug, 2017 [facility] [address], [place] [address] 0393 Jul, Other chronic pain G89.29 [facility] [address], [place] [address] 1676 Jul, [facility] [address] [place] [address] 97281- 5956 Jul, Dark brown urine R82.99 [facility] [address] [place] [address] 50063- 6434 Jul, Dark brown urine R82.99 [facility] [id number] [place] [address] 02046- 1980 Jul, [facility] [address] [place] [address] 21493- 2780 Jun, Other chronic pain G89.29 [facility] [address], [place] [address] 7328 Jun, Type 2 diabetes mellitus without complication, unspecified skilled nursing insulin use status E11.9 [facility] [address] [place] [address] 31229- 0659 May, Candidiasis, intertrigo B37.2 [facility] [address], [place] [address] 7162 May, Other chronic pain G89.29 [facility] [address], [place] [address] 6970 May, [facility] [address] [place] [address] 25809- 4737 May, [facility] [address] [place] [address] 66978- 0166 May, Candidiasis, intertrigo B37.2 [facility] [address] [place] [address] 56955- 3397 May, Atrial fibrillation, unspecified type I48.91 [facility] [address], [place] [address] 5[address] May, Hypothyroidism, unspecified type E03.9 and Decreased renal function N28.9 [facility] [id number] [place] [address] 08936- 6298 May, Type 2 diabetes mellitus without complication, unspecified signal helper insulin use status E11.9 [facility] [id number] [place] [address] 05244- 8654 May, Dental examination Z01.20 [facility] [id number] [place] [address] 10148- 0046 May, Chronic kidney disease (CKD), unspecified stage N18.9 ; Type 2 diabetes mellitus without complication, unspecified signal helper insulin use status E11.9 ; Hypothyroidism, unspecified type E03.9 ; Depression, unspecified depression type F32.9 ; Anemia, unspecified type D64.9 and Ulcer L98.499 [facility] [id number] [place] [address] 40659- 9057 May, [facility] [id number] [place] [address] 83785- 9128 Apr, Other chronic pain G89.29 [facility] [id number] [place] [address] 59926- 1608 Apr, Other chronic pain G89.29 [facility] [address] [place] [address] 21073- 7491 March, [facility] [id number] [place] [address] 51251- 4123 March, [facility] [id number] [place] [address] 12485- 4203 March, [facility] [id number] [place] [address] 63692- 1024 March, Other chronic pain G89.29 [facility] [address], [place] [address]- 4794 March, [facility] [id number] [place] [address] 35094- 8034 Feb, [facility] [id number] [place] [address] 76458- 5175 Feb, Type 2 diabetes mellitus without complication, unspecified signal helper insulin use status E11.9 ; Candidiasis, intertrigo B37.2 ; Decubitus ulcer of left buttock, unstageable L89.320 and Pressure ulcer of contiguous region involving right buttock and hip, unspecified ulcer stage L89.40 [facility] [id number] [place] [address] 44231- 4378 Feb, Atrial fibrillation, unspecified type I48.91 [facility] [id number] [place] [address] 28315- 5596 Feb, [facility] [id number] [place] [address] 00033- 9340 Feb, [facility] [id number] [place] [address] 52722- 3992 Feb, Other chronic pain G89.29 [facility] [id number] [place] [address] 32242- 1554 Jan, Other chronic pain G89.29 [facility] [address] [place] [address] 14985- 2147 Dec, [facility] [address] [place] [address] 84507- 8788 Dec, Lethargy R53.83 [facility] [id number] [place] [address] 44703- 5024 17 Dec, 2016 [facility] [address] [place] [address] 66555- 9612 10 Dec, 2016 Other chronic pain G89.29 [facility] [address] [id number], [place] [address]- 9768 Nov, [facility] [address], [place] [address]- 1420 Nov, [facility] [address], [place] [address]- 9502 Nov, Other chronic pain G89.29 [facility] [address] [place] [address] 03477- 8120 Nov, [facility] [id number] [place] [address] 67081- 8957 Nov, [facility] [id number] [place] [address] 50930- 9541 Nov, [facility] [address] [place] [address] 95829- 5527 Oct, Cough R05 [facility] [id number] [place] [address] 49553- 3095 Oct, Urinary tract infection, site not specified N39.0 [facility] [address] [place] [address] 57705- 3506 16 Oct, 2016 Other chronic pain G89.29 [facility] [address] [place] [address] 30294- 3370 15 Oct, 2016 Type 2 diabetes mellitus without complication, unspecified skilled nursing insulin use status E11.9 ; Other chronic [...] J30.89 ; Nausea R11.0 and Candidiasis B37.9 [facility] [address], [place] [address]- 8499 Oct, [facility] [address], [place] [address]- 9072 Oct, [facility] [id number] [place] [address] 07714- 5176 Oct, [facility] [id number] [place] [address] 47586- 5749 Oct, Chronic kidney disease (CKD), unspecified stage N18.9 [facility] [id number] [place] [address] 02195- 4113 Oct, [facility] [id number] [place] [address] 38761- 0618 Sep, Other chronic pain G89.29 [facility] [id number] [place] [address] 85112- 5672 Sep, Chronic kidney disease (CKD), unspecified stage N18.9 and Senile cataract of right eye, unspecified age-related cataract type H25.9 [facility] [address] [id number], [place] [address]- 2315 Sep, [facility] [id number] [place] [address] 33485- 0887 Sep, [facility] [address], [place] [address]- 6485 Sep, [facility] [id number] [place] [address] 12863- 9192 Sep, [facility] [address], [place] [address]- 4384 Sep, [facility] [id number] [place] [address] 68543- 0808 Aug, [facility] [id number] [place] [address] 16557- 6867 Aug, [facility] [id number] [place] [address] 19676- 6074 Aug, [facility] [id number] [place] [address] 95528- 0669 Aug, Encounter to establish care Z76.89 ; Other chronic pain G89.29 ; Chronic kidney disease (CKD), unspecified stage N18.9 ; Obstructive sleep apnea syndrome G47.33 ; Type 2 diabetes mellitus without complication, unspecified skilled nursing insulin use status E11.9 ; Urinary incontinence, unspecified type R32 ; Depression, unspecified depression type F32.9 ; History of femur fracture Z87.81 ; History of fractured kneecap Z87.81 ; Hypothyroidism , unspecified type E03.9 ; Cataract H26.9 and Gastroesophageal reflux disease without esophagitis K21.9 [place] [id number] [place] [address] 28525- 7960 Aug, [place] [id number] [place] [address] 78923- 6692 Aug, Urinary incontinence, unspecified type R32 [place] [id number] [place] [address] 24287- 9703 Aug, [address] 18224- 5296 Jul, [facility] [address] [place] [id number] Jul, Type 2 diabetes mellitus without complication, unspecified signal helper insulin use status E11.9 ; Chronic [...] E03.9 and Constipation, unspecified constipation type K59.00 [place] [id number] [place] [address] 74569- 7147 19 Jul, 2016 [facility] [address], [place] [address]- 0633 16 Jul, 2016 [facility] [address] [place] [id number] 14 Jul, 2016 Anemia, unspecified type D64.9 ; Acute renal failure, unspecified acute renal failure type N17.9 ; Other chronic pain G89.29 ; Obstructive sleep apnea syndrome G47.33 and Type 2 diabetes mellitus without complication, unspecified signal helper insulin use status E11.9 [facility] [address], [place] [address]- 8762 Jul, [facility] [address], [place] [address]- 6497 Jul, [facility] [address], [place] [address]- 7446 Jul, [facility] [address], [place] [address]- 7016 Jul, [facility] [address], [place] [address]- 2587 Jul, [facility] [address] [place] [id number] Jun, Other chronic pain G89.29 ; Hayes catheter in place Z92.89 ; Chronic kidney disease (CKD), unspecified stage N18.9 and Blisters of multiple sites R23.8 [facility] [address], [place] [address]- 6049 Jun, [facility] [address], [place] [address]- 3203 Jun, [facility] [address], [place] [address]- 2230 Jun, [facility] [address], [place] [address]- 7291 Jun, [facility] [address], [place] [address]- 0246 Jun, [facility] [id number], [place] [address]- 6677 Jun, [facility] [id number] [address]- 5953 Jun, [facility] [id number], [place] [address]- 0841 Jun, [facility] [address], [place] [address]- 0166 Jun, [facility] [id number], [place] [address]- 6627 Jun, [facility] [id number] [address]- 7323 Jun, [facility] [id number] [address]- 0728 May, [facility] [id number], [place] [address]- 0004 May, [facility] [id number], [place] [address]- 9249 May, Other chronic pain G89.29 [facility] [address] [place] [id number] May, Encounter to establish care Z76.89 ; Type 2 diabetes mellitus without complication, unspecified signal helper insulin use status E11.9 ; Hypothyroidism, [...] HISTORY Never Assessed REASON FOR VISIT Medication change per Insurance PLAN OF CARE VITAL SIGNS MEDICATIONS Medication Instructions Dosage Frequency Start Date End Date Duration Status Nystatin 212261 UNIT/GM Externally Twice a day 1 application to affected area as needed 12h May, Active Triamcinolone Acetonide 0.1 % Externally Twice a day 1 application to affected area 12May, Active RESULTS No Results PROCEDURES No Known [...] Acute Kidney Injury 08/05/16 Hospitalization History UTI, Sepsis--[facility] Hospitalization History Chest pain/SOB/A-fib 02/2017 Hospitalization History Chest pain-[facility] 04/13/17 Hospitalization History UTI, respiratory failure, altered mental status-[facility] 09/13/17
--- OUTSIDE RECORDS SUMMARY | 2018-09-17 19:44 | XMS REPORT ---
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 Name Role Phone LATONYA KIM Unavailable PROBLEMS Type Condition ICD9-CM Code FBD27-KV Code Onset Dates Condition Status SNOMED Code Problem Ulcer L98.499 Active 885252797 Problem Chronic fatigue R53.82 Active 82149090 Problem Decreased renal function N28.9 Active 66478462 Problem Nephrolithiasis N20.0 Active 90886232 Problem Chronic kidney disease (CKD), unspecified stage N18.9 Active 718627758 Problem Venous stasis dermatitis of both lower extremities I87.2 Active 05084640 Problem Urinary incontinence, unspecified type R32 Active 015779547 Problem Morbid obesity due to excess calories E66.01 Active 017951882 Problem Anxiety F41.9 Active 00908481 Problem Bladder spasms N32.89 Active 017261754 Problem Stage 4 chronic kidney disease N18.4 Active 706315077 Problem Primary insomnia F51.01 Active 7651036 Problem Hypothyroidism, unspecified type E03.9 Active 62154853 Problem Cataract H26.9 Active 062884493 Problem Type 2 diabetes mellitus without complication, unspecified subassembler insulin use status E11.9 Active 38825226 Problem Depression, unspecified depression type F32.9 Active 99700861 Problem Other chronic pain G89.29 Active 44751415 Problem Perennial allergic rhinitis, unspecified allergic rhinitis trigger J30.89 Active 816858998 Problem Obstructive sleep apnea syndrome G47.33 Active 55700244 Problem Restless leg syndrome G25.81 Active 63039432 Problem Closed fracture of left patella, unspecified fracture morphology, sequela S82.002S Active 22527301 Problem Gastroesophageal reflux disease without esophagitis K21.9 Active 094788852 Problem Atrial fibrillation, unspecified type I48.91 Active 40648889 ALLERGIES No Information ENCOUNTERS Encounter Location Date Diagnosis [facility] [id number] [place] [address] 49983- 5047 May, Primary insomnia F51.01 and Arthralgia, unspecified joint M25.50 [facility] [id number] [place] [address] 63860- 4576 May, Other chronic pain G89.29 [facility] [address] [place] [id number] May, Nephrolithiasis N20.0 ; Cataract H26.9 and Macrocytic anemia D53.9 [facility] [id number] [place] [address] 76937- 7269 May, [place] [id number] [place] [address] 79607- 1481 Apr, [place] [id number] [place] [address] 86645- 2935 Apr, [place] [id number] [place] [address] 50207- 5999 Apr, Primary insomnia F51.01 [facility] [id number] [place] [address] 64388- 8660 Apr, [place] [id number] [place] [address] 51409- 6767 March, Other chronic pain G89.29 [facility] [address] [place] [id number] March, Arthralgia, unspecified joint M25.50 ; Abnormal urine sediment R82.90 ; Venous stasis dermatitis of both lower extremities I87.2 ; Stage 4 chronic kidney disease N18.4 and Cataract of right eye, unspecified cataract type H26.9 [facility] [facility] [address] [place] [address] 05867- 0088 March, Primary insomnia F51.01 [facility] [address] [place] [id number] March, Cervicalgia M54.2 ; Acute pain of right shoulder M25.511 and Pain of left femur M89.8X5 [place] [address] [place] [address] 15709- 7344 March, [place] [address] 24257- 7786 March, Other chronic pain G89.29 [place] [id number] [place] [address] 36287- 6831 Feb, [facility] [address] [place] [id number] Feb, Leg swelling M79.89 [place] [id number] [place] [address] 23940- 4103 Feb, Primary insomnia F51.01 [facility] [address] [place] [id number] Feb, Fever in other diseases R50.81 and Intermittent left lower quadrant abdominal pain R10.32 [place] [id number] [place] [address] 68326- 0851 Feb, [place] [id number] [place] [address] 63631- 0320 Feb, [place] [id number] [place] [address] 70283- 2266 Feb, Depression, unspecified depression type F32.9 ; Hypothyroidism, unspecified type E03.9 ; Type 2 diabetes mellitus without complication, unspecified custodial insulin use status E11.9 and Anxiety F41.9 [place] [address] [place] [address] 79535- 9614 Feb, Other chronic pain G89.29 [facility] [id number] [place] [id number] Jan, Other chronic pain G89.29 [place] [id number] [place] [address] 96104- 0416 Jan, Bladder spasms N32.89 [place] [id number] [place] [address] 97170- 6401 Jan, Bladder spasms N32.89 [facility] [address] [address] 0565 Dec, Bladder spasms N32.89 [facility] [address] [address]- 2142 Dec, Depression, unspecified depression type F32.9 [facility] [address] [place] [address] 47929- 5506 Dec, [facility] [address] [place] [id number] Dec, Hypothyroidism, unspecified type E03.9 ; Depression, unspecified depression type F32.9 ; Other chronic pain G89.29 ; Urinary retention R33.9 and Atrial fibrillation, unspecified type I48.91 [facility] [id number] [place] [id number] Dec, [facility] [id number] [place] [address] [id number] Dec, Other chronic pain G89.29 [facility] [id number] [place] [address] [id number] Nov, [facility] [id number] [place] [address] [id number] Nov, Other chronic pain G89.29 [facility] [address] [address] 2216 Nov, Other chronic pain G89.29 [facility] [address] [address] 366[address] Nov, [facility] [address] [place] [address] 39040360- 4782 Nov, [facility] [address] [place] [address] 984352- 6562 Nov, Other chronic pain G89.29 [facility] [address] [place] [address] 13722- 1324 Nov, Other chronic pain G89.29 [facility] [address] [address]- 0584 Oct, [facility] [address] [place] [address] 78404- 3030 Oct, Other chronic pain G89.29 [facility] [address] [place] [id number] Oct, Weakness R53.1 ; Macrocytic anemia D53.9 ; Discolored skin L81.9 ; Other chronic pain G89.29 ; Dysuria R30.0 and Hayes catheter in place Z92.89 [facility] [address] [address]- 1253 Oct, Other chronic pain G89.29 [facility] [id number] [id number] Sep, [facility] [address] [place] [address] 16694- 1637 Sep, [facility] [address] [address]- 2413 Sep, [facility] [id number] [place] [address] [id number] Sep, [facility] [id number] [place] [address] [id number] Sep, Other chronic pain G89.29 [facility] [address] [place] [address] 27572- 3654 Sep, [facility] [id number] [id number] Sep, Other chronic pain G89.29 [facility] [address] [place] [id number] Sep, Chronic urinary tract infection N39.0 ; Other chronic pain G89.29 ; Chronic kidney disease (CKD), unspecified stage N18.9 ; Type 2 diabetes mellitus without complication, unspecified custodial insulin use status E11.9 ; Hypothyroidism, unspecified type E03.9 ; Depression, unspecified depression type F32.9 ; Cataract H26.9 ; Obstructive sleep apnea syndrome G47.33 ; Atrial fibrillation, unspecified type I48.91 ; History of femur fracture Z87.81 [address] Z92.89 [facility] [address] [address]- 0385 Sep, [facility] [id number] [place] [address] 41568- 3293 Aug, [facility] [id number] [place] [address] 49137- 4194 Aug, Other chronic pain G89.29 [facility] [id number] [place] [address] 88630- 5818 Aug, [facility] [id number] [place] [address] 77569- 6075 Aug, [facility] [id number] [place] [address] [id number] Aug, [facility] [id number] [place] [address] 65687- 2378 Aug, [facility] [id number] [place] [address] 22087- 3014 Aug, Type 2 diabetes mellitus without complication, unspecified custodial insulin use status E11.9 [facility] [id number] [place] [address] 65633- 1942 Aug, Other chronic pain G89.29 [facility] [address] [address]- 1857 Aug, [facility] [id number] [place] [address] 28435- 3901 Aug, [facility] [id number] [place] [address] 08259- 9289 Jul, Other chronic pain G89.29 [facility] [address] [place] [address]- 2695 19 Jul, 2017 [facility] [address] [address]- 4275 Jul, Dark brown urine R82.99 [facility] [address] [address]- 7569 Jul, Dark brown urine R82.99 [facility] [id number] [place] [address] 31520- 4400 14 Jul, 2017 [facility] [address] [place] [address] 80269- 9889 Jun, Other chronic pain G89.29 [place] [address] [place] [address] 80535- 6835 Jun, Type 2 diabetes mellitus without complication, unspecified subassembler insulin use status E11.9 [place] [id number] [place] [address] 94449- 2536 May, Candidiasis, intertrigo B37.2 [place] [address] [place] [address] 11278- 9496 May, Other chronic pain G89.29 [facility] [address] [address]- 9714 May, [place] [address] [address]- 7600 May, [facility] [address] [place] [address] 82187- 1986 May, Candidiasis, intertrigo B37.2 [facility] [address] [place] [address] 67057- 3818 May, Atrial fibrillation, unspecified type I48.91 [place] [address] [address]- 9353 May, Hypothyroidism, unspecified type E03.9 and Decreased renal function N28.9 [facility] [address] [address]- 7604 May, Type 2 diabetes mellitus without complication, unspecified subassembler insulin use status E11.9 [facility] [address] [address]- 9689 May, Dental examination Z01.20 [facility] [address] [address]- 5061 May, Chronic kidney disease (CKD), unspecified stage N18.9 ; Type 2 diabetes mellitus without complication, unspecified custodial insulin use status E11.9 ; Hypothyroidism, unspecified type E03.9 ; Depression, unspecified depression type F32.9 ; Anemia, unspecified type D64.9 and Ulcer L98.499 [facility] [address] [address]- 3724 May, [facility] [id number] [address]- 4102 Apr, Other chronic pain G89.29 [facility] [address] [address]- 0483 Apr, Other chronic pain G89.29 [facility] [address] [address]- 1468 March, [facility] [address] [address]- 9299 March, [facility] [address] [address]- 9839 March, [facility] [address] [address]- 1995 March, Other chronic pain G89.29 [facility] [address] [address] 6[address] March, [facility] [address] [address]- 9727 Feb, [facility] [id number] [place] [address] 77139- 3144 Feb, Type 2 diabetes mellitus without complication, unspecified custodial insulin use status E11.9 ; Candidiasis, intertrigo B37.2 ; Decubitus ulcer of left buttock, unstageable L89.320 and Pressure ulcer of contiguous region involving right buttock and hip, unspecified ulcer stage L89.40 [place] [id number] [place] [address] 65536- 8470 Feb, Atrial fibrillation, unspecified type I48.91 [facility] [id number] [place] [address] 54087- 1933 Feb, [facility] [id number] [place] [address] 57722- 5572 Feb, [place] [id number] [place] [address] 87259- 1013 Feb, Other chronic pain G89.29 [facility] [id number] [place] [address] 16794- 3675 Jan, Other chronic pain G89.29 [facility] [id number] [place] [address] 95839- 2775 Dec, [facility] [id number] [place] [address] 33414- 1090 Dec, Lethargy R53.83 [place] [id number] [place] [address] 59344- 8047 Dec, [facility] [id number] [place] [address] 70173- 2651 Dec, Other chronic pain G89.29 [facility] [id number] [place] [address] 30300- 4155 Nov, [facility] [address] [place] [address] 63668- 5271 Nov, [facility] [id number] [place] [address] 49952- 1070 Nov, Other chronic pain G89.29 [facility] [address] [address]- 5184 Nov, [facility] [address] [place] [address] 88831- 5257 Nov, [facility] [address] [place] [address] 31924- 6106 Nov, [facility] [address] [place] [address] 11799- 3262 Oct, Cough R05 [place] [id number] [place] [address] 67538- 1816 Oct, Urinary tract infection, site not specified N39.0 [place] [address] [place] [address] 39612- 1257 16 Oct, 2016 Other chronic pain G89.29 [place] [address] [place] [address] 11693- 5901 Oct, Type 2 diabetes mellitus without complication, unspecified custodial insulin use status E11.9 ; Other chronic [...] J30.89 ; Nausea R11.0 and Candidiasis B37.9 [place] [address] [place] [address] 26645- 0534 Oct, [place] [address] [address]- 7996 Oct, [place] [address] [place] [address] 36116- 6235 Oct, [facility] [address] [address]- 6379 Oct, Chronic kidney disease (CKD), unspecified stage N18.9 [facility] [address] [address] 3861 Oct, [facility] [address] [address]- 4859 Sep, Other chronic pain G89.29 [facility] [address] [place] [address]- 0850 Sep, Chronic kidney disease (CKD), unspecified stage N18.9 and Senile cataract of right eye, unspecified age-related cataract type H25.9 [facility] [address] [place] [address]- 3224 Sep, [facility] [id number] [address]- 7630 Sep, [facility] [address] [address]- 2936 Sep, [facility] [address] [address]- 8895 Sep, [facility] [address] [address]- 6198 Sep, [facility] [address] [address]- 5078 Aug, [facility] [address] [address]- 2679 Aug, [facility] [address] [address]- 9527 Aug, [facility] [address] [address]- 9370 Aug, Encounter to establish care Z76.89 ; Other chronic pain G89.29 ; Chronic kidney disease (CKD), unspecified stage N18.9 ; Obstructive sleep apnea syndrome G47.33 ; Type 2 diabetes mellitus without complication, unspecified custodial insulin use status E11.9 ; Urinary incontinence, unspecified type R32 ; Depression, unspecified depression type F32.9 ; History of femur fracture Z87.81 ; History of fractured kneecap Z87.81 ; Hypothyroidism , unspecified type E03.9 ; Cataract H26.9 and Gastroesophageal reflux disease without esophagitis K21.9 [place] [id number] [place] [address] 43792- 1830 Aug, [place] [id number] [place] [address] 86949- 5815 Aug, Urinary incontinence, unspecified type R32 [place] [id number] [place] [address] 59980- 2007 Aug, [place] [id number] [place] [address] 34763- 8617 Jul, [employer] [id number] Jul, Type 2 diabetes mellitus without complication, unspecified subassembler insulin use status E11.9 ; Chronic kidney [...] E03.9 and Constipation, unspecified constipation type K59.00 [place] [id number] [place] [address] 47642- 0868 Jul, [place] [id number] [place] [address] 98761- 9992 Jul, [facility] [address] [place] [id number] Jul, Anemia, unspecified type D64.9 ; Acute renal failure, unspecified acute renal failure type N17.9 ; Other chronic pain G89.29 ; Obstructive sleep apnea syndrome G47.33 and Type 2 diabetes mellitus without complication, unspecified custodial insulin use status E11.9 [facility] [address] [address]- 2998 Jul, [facility] [id number] [place] [address] 97424- 1274 Jul, [facility] [id number] [place] [address] 68327- 7585 Jul, [facility] [id number] [place] [address] 42101- 3635 Jul, [facility] [id number] [place] [address] 20214- 2445 Jul, [facility] [address] [place] [id number] Jun, Other chronic pain G89.29 ; Hayes catheter in place Z92.89 ; Chronic kidney disease (CKD), unspecified stage N18.9 and Blisters of multiple sites R23.8 [facility] [address] [place] [address] 08409- 7397 Jun, [facility] [address] [address]- 8889 Jun, [facility] [address] [address]- 8499 Jun, [facility] [address] [place] [address] 10647- 2044 Jun, [facility] [id number] [place] [address] 28035- 8433 Jun, [facility] [address] [address]- 1262 Jun, [facility] [id number] [place] [address] 96887- 9448 Jun, [facility] [id number] [address]- 0080 Jun, [facility] [id number] [address]- 7485 Jun, [facility] [id number] [address]- 5785 Jun, [facility] [address] [address]- 2641 Jun, [facility] [id number] [address]- 2735 May, [facility] [id number] [address]- 2315 May, [facility] [id number] [address]- 4849 May, Other chronic pain G89.29 [facility] [address] [place] [id number] May, Encounter to establish care Z76.89 ; Type 2 diabetes mellitus without complication, unspecified subassembler insulin use status E11.9 ; Hypothyroidism, unspecified [...] SOCIAL HISTORY Never Assessed REASON FOR VISIT depression and anxiety PLAN OF CARE VITAL SIGNS MEDICATIONS Unknown [...] Acute Kidney Injury 08/05/16 Hospitalization History UTI, Sepsis--[facility] Hospitalization History Chest pain/SOB/A-fib 02/2017 Hospitalization History Chest pain-[facility] 04/13/17 Hospitalization History UTI, respiratory failure, altered mental status-[facility] 09/13/17
--- OUTSIDE RECORDS SUMMARY | 2018-09-17 19:44 | XMS REPORT ---
Author Author LATONYA KIM [facility] Address [address] [place] [address] Care Team Providers Care Supervisor Cytology Name Role Phone LATONYA KIM Unavailable PROBLEMS Type Condition ICD9-CM Code GWX47-AP Code Onset Dates Condition Status SNOMED Code Problem Cataract H26.9 Active 210071153 Problem Restless leg syndrome G25.81 Active 38971660 Problem Other chronic pain G89.29 Active 38603442 Problem Bladder spasms N32.89 Active 153321568 Problem Chronic fatigue R53.82 Active 78422307 Problem Atrial fibrillation, unspecified type I48.91 Active 05676046 Problem Perennial allergic rhinitis, unspecified allergic rhinitis trigger J30.89 Active 912017441 Problem Decreased renal function N28.9 Active 70221819 Problem Ulcer L98.499 Active 129369930 Problem Morbid obesity due to excess calories E66.01 Active 348582449 Problem Urinary incontinence, unspecified type R32 Active 709182265 Problem Closed fracture of left patella, unspecified fracture morphology, sequela S82.002S Active 25296159 Problem Depression, unspecified depression type F32.9 Active 89534498 Problem Hypothyroidism, unspecified type E03.9 Active 08685817 Problem Chronic kidney disease (CKD), unspecified stage N18.9 Active 262762146 Problem Obstructive sleep apnea syndrome G47.33 Active 21272441 Problem Type 2 diabetes mellitus without complication, 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 [address] [facility] [id number] [address] Jan, Bladder spasms N32.89 [facility] [address] [address] Jan, Bladder spasms N32.89 [facility] [address] [address] Dec, Bladder spasms N32.89 [facility] [address] [address] Dec, Depression, unspecified depression type F32.9 [facility] [address] [address] Dec, [facility] [address] [place] [id number] Dec, Hypothyroidism, unspecified type E03.9 ; Depression, unspecified depression type F32.9 ; Other chronic pain G89.29 ; Urinary retention R33.9 and Atrial fibrillation, unspecified type I48.91 [facility] [address] [id number] [id number] Dec, [facility] [id number] [place] [id number] Dec, Other chronic pain G89.29 [facility] [address] [id number] [id number] Nov, [facility] [address] [id number] [address] Nov, Other chronic pain G89.29 [facility] [address] [id number] [address] Nov, Other chronic pain G89.29 [facility] [address], [place] [address] Nov, [facility] [address] [address] Nov, [facility] [address], [place] [address] Nov, Other chronic pain G89.29 [facility] [address] [facility] [id number] [address] Nov, Other chronic pain G89.29 [facility] [address] [facility] [id number] [address] Oct, [facility] [address] [id number] [address] 87[address] Oct, Other chronic pain G89.29 [facility] [address] [place] [id number] Oct, Weakness R53.1 ; Macrocytic anemia D53.9 ; Discolored skin L81.9 ; Other chronic pain G89.29 ; Dysuria R30.0 and Hayes catheter in place Z92.89 [facility] [address] [id number] [address] Oct, Other chronic pain G89.29 [facility] [id number] [place] [id number] Sep, [facility] [address]65[address] [address] Sep, [facility] [address] [address] 365[address] Sep, [facility] [address] [id number] [id number] Sep, [facility] [id number] [place] [address] [id number] Sep, Other chronic pain G89.29 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 [id number] [place] [address]60- 3884 Sep, [facility] [id number] [place] [address] 72633- 7315 Aug, [facility] [address] [address] Aug, Other chronic pain G89.29 [facility] [id number] [place] [address] 88852- 9063 Aug, [facility] [id number] [place] [address] 21611- 5623 Aug, [facility] [address] [id number] Aug, [facility] [id number] [place] [address] 56395- 6152 Aug, 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 [id number] [place] [address] 91840- 0643 Aug, Other chronic pain G89.29 [facility] [address] [address] Aug, [facility] [id number] [place] [address] 72234- 5048 Aug, [facility] [address] [address]- [address] Jul, Other chronic pain G89.29 [facility] [address] [address] Jul, [facility] [id number] [place] [address] 88629- 0324 Jul, Dark brown urine R82.99 [facility] [address] [place] [address] 15045- 7419 Jul, Dark brown urine R82.99 [facility] [id number] [place] [address] 64250- 8385 14 Jul, 2017 [facility] [id number] [place] [address] 45544- 6041 Jun, Other chronic pain G89.29 [facility] [id number] [place] [address] 89389- 8378 Jun, Type 2 diabetes mellitus without complication, unspecified longterm insulin use status E11.9 [facility] [id number] [place] [address] 07506- 2459 May, Candidiasis, intertrigo B37.2 [id number] [place] [address] 16237- 7166 May, Other chronic pain G89.29 [facility] [address] [place] [address] 80905- 3308 May, [facility] [id number] [place] [address] 56247- 2989 May, [facility] [id number] [place] [address] 01505- 6713 May, Candidiasis, intertrigo B37.2 [facility] [id number] [place] [address] 53320- 1182 May, Atrial fibrillation, unspecified type I48.91 [facility] [id number] [place] [address] 76315- 0220 May, Hypothyroidism, unspecified type E03.9 and Decreased renal function N28.9 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 [id number] [place] [address] 42473- 3913 May, Dental examination Z01.20 [facility] [id number] [place] [address] 40971- 1363 May, Chronic kidney disease (CKD), unspecified stage N18.9 ; Type 2 diabetes mellitus without complication, unspecified bed bug 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 ; Hypothyroidism, unspecified type E03.9 ; Depression, unspecified depression type F32.9 ; Anemia, unspecified type D64.9 and Ulcer L98.499 [id number] [place] [address] 54002- 2097 May, [facility] [id number] [place] [address] 82005- 1949 Apr, Other chronic pain G89.29 [id number] [place] [address] 82642- 7787 Apr, Other chronic pain G89.29 [address] [id number] [address] 5[address] March, [facility] [id number] [place] [address] 66590- 2191 March, [facility] [id number] [place] [address] 66044- 0761 March, [facility] [id number] [place] [address] 16419- 5010 March, Other chronic pain G89.29 [facility] [id number] [place] [address] 98841- 4448 March, [address] [place] [address] Feb, [facility] [id number] [place] [address] 79854- 1217 Feb, Type 2 diabetes mellitus without complication, unspecified bed bug 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 ; Candidiasis, intertrigo B37.2 ; Decubitus ulcer of left buttock, unstageable L89.320 and Pressure ulcer of contiguous region involving right buttock and hip, unspecified ulcer stage L89.40 [facility] [id number] [place] [address] 89499- 7164 Feb, Atrial fibrillation, unspecified type I48.91 [facility] [id number] [place] [address] 18961- 8717 Feb, [facility] [id number] [place] [address] 15681- 3482 Feb, [facility] [id number] [place] [address] 77028- 8160 Feb, Other chronic pain G89.29 [facility] [id number] [place] [address] 10578- 4394 Jan, Other chronic pain G89.29 [facility] [id number] [place] [address] 68202- 9059 Dec, [facility] [address] [place] [address] 13789- 6994 Dec, Lethargy R53.83 [facility] [address] [place] [address] 14180- 4081 Dec, [facility] [id number] [place] [address] 12767- 5576 10 Dec, 2016 Other chronic pain G89.29 [facility] [id number] [place] [address] 88914- 1013 Nov, [facility] [id number] [place] [address] 93700- 0396 Nov, [facility] [address] [address]- 3998 Nov, Other chronic pain G89.29 [facility] [address] [address]- 1157 Nov, [facility] [address] [address]- 1055 Nov, [facility] [id number] [place] [address] 63284- 3006 Nov, 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 [address], [place] [address]- 8583 Oct, [address] [address]- 3183 Oct, [facility] [address] [address]- 0640 Oct, [facility] [id number] [place] [address] 70205- 1188 Oct, Chronic kidney disease (CKD), unspecified stage N18.9 [facility] [id number] [place] [address] 27235- 2391 Oct, [facility] [id number] [place] [address] 42183- 1961 Sep, Other chronic pain G89.29 [facility] [id number] [place] [address] 63838- 7185 Sep, Chronic kidney disease (CKD), unspecified stage N18.9 and Senile cataract of right eye, unspecified age-related cataract type H25.9 [facility] [id number] [place] [address] 81817- 0840 Sep, [facility] [id number] [place] [address] 91054- 1188 Sep, [facility] [id number] [place] [address] 52193- 2443 Sep, [facility] [id number] [place] [address] 75766- 2562 Sep, [facility] [id number] [place] [address] 60021- 6481 Sep, [facility] [address] [place] [address] 69536- 0691 Aug, [facility] [id number] [place] [address], [place] [address]- [address] Aug, [facility] [address] [address]- 9471 Aug, [facility] [id number] [place] [address] 14722- 5510 Aug, Encounter to establish care Z76.89 ; Other chronic pain G89.29 ; Chronic kidney disease (CKD), unspecified stage N18.9 ; Obstructive sleep apnea syndrome G47.33 ; Type 2 diabetes mellitus without complication, unspecified bed bug 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 ; Urinary incontinence, unspecified type R32 ; Depression, unspecified depression type F32.9 ; History of femur fracture Z87.81 ; History of fractured kneecap Z87.81 ; Hypothyroidism , unspecified type E03.9 ; Cataract H26.9 and Gastroesophageal reflux disease without esophagitis K21.9 [id number] [place] [address] 17614- 1565 Aug, [address] 82756- 1259 Aug, Urinary incontinence, unspecified type R32 [id number] [place] [address] 39842- 3900 Aug, [id number] [place] [address] 73997- 4282 Jul, [facility] [address] [place] [id number] Jul, Type 2 diabetes mellitus without complication, unspecified bed bug 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 ; Chronic kidney [...] Constipation, unspecified constipation type K59.00 [id number] [place] [address] 42712- 2510 Jul, [id number] [place] [address] 22850- 1504 Jul, [facility] [address] [place] [id number] Jul, Anemia, unspecified type D64.9 ; Acute renal failure, unspecified acute renal failure type N17.9 ; Other chronic pain G89.29 ; Obstructive sleep apnea syndrome G47.33 and Type 2 diabetes mellitus without complication, unspecified bed bug 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 [facility] [address] [place] [address] 30358- 9375 Jul, [facility] [id number] [place] [address] 41128- 2637 Jul, [facility] [id number] [place] [address] 98961- 1189 Jul, [facility] [id number] [place] [address] 42187- 0970 Jul, [facility] [id number] [place] [address] 48889- 7778 Jul, [facility] [address] [place] [id number] Jun, Other chronic pain G89.29 ; Hayes catheter in place Z92.89 ; Chronic kidney disease (CKD), unspecified stage N18.9 and Blisters of multiple sites R23.8 [facility] [address] [address]- 6[address] Jun, [facility] [address], [place] [address]- 7826 Jun, [facility] [address] [address]- 7090 Jun, [facility] [id number] [place] [address] 23535- 7035 Jun, [facility] [address] [address]- 5092 Jun, [facility] [id number] [place] [address] 28120- 2289 Jun, [facility] [id number] [address]- 2193 Jun, [facility] [id number] [address]- 8905 Jun, [facility] [id number] [address]- 8198 Jun, [facility] [address] [address]- 0163 Jun, [facility] [id number] [address]- 7560 Jun, [facility] [id number] [address]- 3924 May, [facility] [id number] [address]- 9665 May, [facility] [id number] [address]- 6330 May, Other chronic pain G89.29 [facility] [address] [place] [id number] May, Encounter to establish care Z76.89 ; [...] SOCIAL HISTORY Never Assessed REASON FOR VISIT Referral Request PLAN OF CARE VITAL SIGNS MEDICATIONS Unknown [...] 08/05/16 Hospitalization History UTI, Sepsis--[facility] Hospitalization History Chest pain/SOB/A-fib 02/2017 Hospitalization History Chest pain-[facility] 04/13/17 Hospitalization History UTI, respiratory failure, altered mental status-[facility] 09/13/17
--- OUTSIDE RECORDS SUMMARY | 2018-09-17 19:45 | XMS REPORT ---
Author Author LATONYA KIM [facility] Address [address] [place] [address] Care Team Providers Care Inventory Control/Shipping Receiving Name Role Phone LATONYA KIM Unavailable PROBLEMS Type Condition ICD9-CM Code ALD49-VM Code Onset Dates Condition Status SNOMED Code Problem Cataract H26.9 Active 214371756 Problem Restless leg syndrome G25.81 Active 61855731 Problem Other chronic pain G89.29 Active 63770863 Problem Bladder spasms N32.89 Active 190815480 Problem Chronic fatigue R53.82 Active 18463795 Problem Atrial fibrillation, unspecified type I48.91 Active 28689923 Problem Perennial allergic rhinitis, unspecified allergic rhinitis trigger J30.89 Active 976839492 Problem Decreased renal function N28.9 Active 23280005 Problem Ulcer L98.499 Active 551886501 Problem Morbid obesity due to excess calories E66.01 Active 159353361 Problem Urinary incontinence, unspecified type R32 Active 814418165 Problem Closed fracture of left patella, unspecified fracture morphology, sequela S82.002S Active 97961583 Problem Depression, unspecified depression type F32.9 Active 57303095 Problem Hypothyroidism, unspecified type E03.9 Active 37169337 Problem Chronic kidney disease (CKD), unspecified stage N18.9 Active 472359862 Problem Obstructive sleep apnea syndrome G47.33 Active 75368298 Problem Type 2 diabetes mellitus without complication, unspecified ferry terminal agent insulin 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 E11.9 Active 31381826 Problem Gastroesophageal reflux disease without esophagitis K21.9 Active 124911522 ALLERGIES No Information ENCOUNTERS Encounter Location Date Diagnosis [facility] [address] [id number] [id number] Jan, Other chronic pain G89.29 [facility] [address] [facility] [address] [id number] [address] Jan, Bladder spasms N32.89 [facility] [address] [address] Jan, Bladder spasms N32.89 [facility] [address], [place] [address] Dec, Bladder spasms N32.89 [facility] [address], [place] [address] Dec, Depression, unspecified depression type F32.9 [facility] [address], [place] [address] Dec, [facility] [address] [place] [id number] Dec, Hypothyroidism, unspecified type E03.9 ; Depression, unspecified depression type F32.9 ; Other chronic pain G89.29 ; Urinary retention R33.9 and Atrial fibrillation, unspecified type I48.91 [facility] [address] [id number] [id number] Dec, [facility] [id number] [place] [id number] Dec, Other chronic pain G89.29 [facility] [address] [id number] [id number] Nov, [facility] [address] [id number] [address] Nov, Other chronic pain G89.29 [facility] [id number], [place] [address] Nov, Other chronic pain G89.29 [facility] [address], [place] [address] Nov, [facility] [address] [address] Nov, [facility] [address], [place] [address] Nov, Other chronic pain G89.29 [facility] [address] [facility] [address] [id number] [address] Nov, Other chronic pain G89.29 [facility] [address] [facility] [id number] [address] Oct, [facility] [id number], [place] [address] Oct, Other chronic pain G89.29 [facility] [address] [place] [id number] Oct, Weakness R53.1 ; Macrocytic anemia D53.9 ; Discolored skin L81.9 ; Other chronic pain G89.29 ; Dysuria R30.0 and Hayes catheter in place Z92.89 [facility] [address] [id number], [place] [address] Oct, Other chronic pain G89.29 [facility] [id number] [place] [id number] Sep, [facility] [address], [place] [address] Sep, [facility] [address], [place] [address] Sep, [facility] [address] [id number] [id number] Sep, [facility] [id number] [place] [id number] Sep, Other chronic pain G89.29 [facility] [address] [facility] [address] [id number] [address] Sep, [facility] [id number] [place] [id number] Sep, Other chronic pain G89.29 [facility] [address] [place] [id number] Sep, Chronic urinary tract infection N39.0 ; Other chronic pain G89.29 ; Chronic kidney disease (CKD), unspecified stage N18.9 ; Type 2 diabetes mellitus without complication, unspecified ferry terminal agent insulin use status E11.9 ; Hypothyroidism, unspecified type E03.9 ; Depression, unspecified depression type F32.9 ; Cataract H26.9 ; Obstructive sleep apnea syndrome G47.33 ; Atrial fibrillation, unspecified type I48.91 ; History of femur fracture Z87.81 and [address] catheter [address] place Z92.89 [facility] [id number] [place] [address]23- 6840 Sep, [facility] [id number] [place] [address] 30251- 5035 Aug, [facility] [address] [address] Aug, Other chronic pain G89.29 [facility] [id number] [place] [address]- 1986 Aug, [facility] [id number] [place] [address] 55965- 8062 Aug, [facility] [address] [id number] Aug, [facility] [id number] [place] [address]59[address] Aug, [facility] [id number] [place] [address]20- 3218 Aug, Type 2 diabetes mellitus without complication, unspecified ferry terminal agent insulin use status E11.9 [facility] [id number] [place] [address] 32168- 5819 Aug, Other chronic pain G89.29 [facility] [address] [address] Aug, [facility] [id number] [place] [address] 47062- 5294 Aug, [facility] [address] [address] Jul, Other chronic pain G89.29 [facility] [address], [place] [address] Jul, [facility] [address] [place] [address] 10193- 9503 Jul, Dark brown urine R82.99 [facility] [address] [place] [address] 10498- 8853 Jul, Dark brown urine R82.99 [facility] [id number] [place] [address] 08041- 3286 14 Jul, 2017 [facility] [id number] [place] [address] 29500- 2765 Jun, Other chronic pain G89.29 [facility] [address] [place] [address] 15194- 2148 Jun, Type 2 diabetes mellitus without complication, unspecified fci insulin use status E11.9 [facility] [id number] [place] [address] 68326- 8617 May, Candidiasis, intertrigo B37.2 [facility] [id number] [place] [address] 46674- 1369 May, Other chronic pain G89.29 [facility] [address] [place] [address] 96503- 3447 May, [facility] [address] [place] [address] 25398- 6512 May, [facility] [address] [place] [address] 39597- 9765 May, Candidiasis, intertrigo B37.2 [facility] [id number] [place] [address] 55737- 4885 May, Atrial fibrillation, unspecified type I48.91 [facility] [id number] [place] [address] 07008- 1381 May, Hypothyroidism, unspecified type E03.9 and Decreased renal function N28.9 [facility] [id number] [place] [address] 70916- 7640 May, Type 2 diabetes mellitus without complication, unspecified ferry terminal agent insulin use status E11.9 [facility] [id number] [place] [address] 48756- 0318 May, Dental examination Z01.20 [facility] [id number] [place] [address] 78379- 4416 May, Chronic kidney disease (CKD), unspecified stage N18.9 ; Type 2 diabetes mellitus without complication, unspecified ferry terminal agent insulin use status E11.9 ; Hypothyroidism, unspecified type E03.9 ; Depression, unspecified depression type F32.9 ; Anemia, unspecified type D64.9 and Ulcer L98.499 [facility] [id number] [place] [address] 06894- 9184 May, [facility] [id number] [place] [address] 94433- 7338 Apr, Other chronic pain G89.29 [facility] [id number] [place] [address] 61703- 8420 Apr, Other chronic pain G89.29 [facility] [address] [id number] [address] March, [facility] [id number] [place] [address] 89504- 2280 March, [facility] [id number] [place] [address] 10231- 7950 March, [facility] [id number] [place] [address] 87231- 1387 March, Other chronic pain G89.29 [facility] [id number] [place] [address] 25796- 7451 March, [facility] [facility] [address] [place] [address] Feb, [facility] [id number] [place] [address] 69224- 3046 Feb, Type 2 diabetes mellitus without complication, unspecified ferry terminal agent insulin use status E11.9 ; Candidiasis, intertrigo B37.2 ; Decubitus ulcer of left buttock, unstageable L89.320 and Pressure ulcer of contiguous region involving right buttock and hip, unspecified ulcer stage L89.40 [facility] [id number] [place] [address] 90647- 6817 Feb, Atrial fibrillation, unspecified type I48.91 [facility] [id number] [place] [address] 29192- 5096 Feb, [facility] [id number] [place] [address] 82673- 1829 Feb, [facility] [id number] [place] [address] 03477- 8924 Feb, Other chronic pain G89.29 [facility] [id number] [place] [address] 01991- 8585 Jan, Other chronic pain G89.29 [facility] [id number] [place] [address] 30025- 1294 Dec, [facility] [address] [place] [address] 78744- 4309 Dec, Lethargy R53.83 [facility] [address] [place] [address] 44541- 7630 Dec, [facility] [id number] [place] [address] 01581- 2118 10 Dec, 2016 Other chronic pain G89.29 [facility] [id number] [place] [address] 71604- 7788 Nov, [facility] [id number] [place] [address] 50968- 2728 Nov, [facility] [address], [place] [address]- 9210 Nov, Other chronic pain G89.29 [facility] [address] [address]- 0217 Nov, [facility] [address], [place] [address]- 8452 Nov, [facility] [address] [place] [address] 47184- 0021 Nov, [facility] [address] [place] [address] 84970- 4687 Oct, Cough R05 [address] [address] [place] [address] 39033- 0044 Oct, Urinary tract infection, site not specified N39.0 [facility] [facility] [address] [place] [address] 46381- 7828 Oct, Other chronic pain G89.29 [facility] [facility] [address], [place] [address] 7715 Oct, Type 2 diabetes mellitus without complication, unspecified ferry terminal agent insulin use status E11.9 ; Other chronic [...] J30.89 ; Nausea R11.0 and Candidiasis B37.9 [facility] [address], [place] [address]- 3590 Oct, [address] [address]- 5593 Oct, [facility] [address], [place] [address]- 8184 Oct, [facility] [id number] [place] [address] 42799- 4480 Oct, Chronic kidney disease (CKD), unspecified stage N18.9 [facility] [id number] [place] [address] 53995- 7783 Oct, [facility] [id number] [place] [address] 57003- 1616 Sep, Other chronic pain G89.29 [facility] [id number] [place] [address] 19419- 8019 Sep, Chronic kidney disease (CKD), unspecified stage N18.9 and Senile cataract of right eye, unspecified age-related cataract type H25.9 [facility] [id number] [place] [address] 55323- 4379 Sep, [facility] [id number] [place] [address] 30651- 4120 Sep, [facility] [id number] [place] [address] 99431- 7531 Sep, [facility] [id number] [place] [address] 39135- 7218 Sep, [facility] [id number] [place] [address] 76451- 0945 Sep, [facility] [address] [place] [address] 17342- 1348 Aug, [facility] [id number] [place] [address], [place] 2967 Aug, [facility] [address] [place] [address]- 6487 Aug, [facility] [id number] [place] [address] 20724- 2572 Aug, Encounter to establish care Z76.89 ; Other chronic pain G89.29 ; Chronic kidney disease (CKD), unspecified stage N18.9 ; Obstructive sleep apnea syndrome G47.33 ; Type 2 diabetes mellitus without complication, unspecified ferry terminal agent insulin use status E11.9 ; Urinary incontinence, unspecified type R32 ; Depression, unspecified depression type F32.9 ; History of femur fracture Z87.81 ; History of fractured kneecap Z87.81 ; Hypothyroidism , unspecified type E03.9 ; Cataract H26.9 and Gastroesophageal reflux disease without esophagitis K21.9 [facility] [id number] [place] [address] 46183- 4435 Aug, [facility] [facility] [address] 22229- 6141 Aug, Urinary incontinence, unspecified type [id number] [place] [address] 89403- 2139 Aug, [facility] [facility] [id number] [place] [address] 34367- 6543 Jul, [facility] [address] [place] [id number] Jul, Type 2 diabetes mellitus without complication, unspecified ferry terminal agent insulin use status E11.9 ; Chronic kidney [...] E03.9 and Constipation, unspecified constipation type K59.00 [place] [facility] [id number] [place] [address] 97157- 7664 Jul, [place] [id number] [place] [address] 65474- 9318 Jul, [facility] [address] [place] [id number] Jul, Anemia, unspecified type D64.9 ; Acute renal failure, unspecified acute renal failure type N17.9 ; Other chronic pain G89.29 ; Obstructive sleep apnea syndrome G47.33 and Type 2 diabetes mellitus without complication, unspecified ferry terminal agent insulin use status E11.9 [facility] [address] [place] [address] 16512- 0418 Jul, [facility] [id number] [place] [address] 47832- 7218 Jul, [facility] [id number] [place] [address] 21765- 3156 Jul, [facility] [id number] [place] [address] 01800- 0849 Jul, [facility] [id number] [place] [address] 08240- 9516 Jul, [facility] [address] [place] [id number] Jun, Other chronic pain G89.29 ; Hayes catheter in place Z92.89 ; Chronic kidney disease (CKD), unspecified stage N18.9 and Blisters of multiple sites R23.8 [facility] [address], [place] [address]- 7502 Jun, [facility] [address], [place] [address]- 7290 Jun, [facility] [address], [place] [address]- 6187 Jun, [facility] [id number] [place] [address] 12060- 7387 Jun, [facility] [address] [address]- 2145 Jun, [facility] [address] [place] [address] 79956- 5712 Jun, [facility] [id number] [address]- 8886 Jun, [facility] [id number], [place] [address]- 2293 Jun, [facility] [id number], [place] [address]- 5839 Jun, [facility] [address], [place] [address]- 9136 Jun, [facility] [id number], [place] [address]- 3889 Jun, [facility] [id number] [address]- 9347 May, [facility] [id number] [address]- 4706 May, [facility] [id number] [address]- 8362 May, Other chronic pain G89.29 [facility] [address] [place] [id number] May, Encounter to establish care Z76.89 ; [...] SOCIAL HISTORY Never Assessed REASON FOR VISIT Med not sent PLAN OF CARE VITAL SIGNS MEDICATIONS Medication Instructions Dosage Frequency Start Date End Date Duration Status Pen Mobile 02/04" 31G X 5 MM subcutaneously 4 times a day as directed 6h Jul, 30 days Active RESULTS No Results PROCEDURES [...] Acute Kidney Injury 08/05/16 Hospitalization History UTI, Sepsis--[facility] Hospitalization History Chest pain/SOB/A-fib 02/2017 Hospitalization History Chest pain-[facility] 04/13/17 Hospitalization History UTI, respiratory failure, altered mental status-[facility] 09/13/17
--- OUTSIDE RECORDS SUMMARY | 2018-09-17 19:46 | XMS REPORT ---
Author Author LATONYA KIM Organization [facility] [place] Address [address] [place] [address] Care Team Providers Care Director Hedis Name Role Phone LATONYA KIM Unavailable PROBLEMS Type Condition ICD9-CM Code WYB77-AY Code Onset Dates Condition Status SNOMED Code Problem Atrial fibrillation, unspecified type I48.91 Active 23880647 Problem Decreased renal function N28.9 Active 30799081 Problem Ulcer L98.499 Active 791479140 Problem Venous stasis dermatitis of both lower extremities I87.2 Active 14332849 Problem Urinary incontinence, unspecified type R32 Active 940680491 Problem Stage 4 chronic kidney disease N18.4 Active 673413595 Problem Morbid obesity due to excess calories E66.01 Active 266282941 Problem Closed fracture of left patella, unspecified fracture morphology, sequela S82.002S Active 51814690 Problem Bladder spasms N32.89 Active 721898617 Problem Chronic fatigue R53.82 Active 40578461 Problem Primary insomnia F51.01 Active 3334656 Problem Anxiety F41.9 Active 63038949 Problem Type 2 diabetes mellitus without complication, unspecified terminal clerk insulin use status E11.9 Active 77687716 Problem Depression, unspecified depression type F32.9 Active 74864971 Problem Cataract H26.9 Active 491288477 Problem Chronic kidney disease (CKD), unspecified stage N18.9 Active 172518488 Problem Gastroesophageal reflux disease without esophagitis K21.9 Active 488341788 Problem Other chronic pain G89.29 Active 16102936 Problem Hypothyroidism, unspecified type E03.9 Active 64801751 Problem Restless leg syndrome G25.81 Active 38036532 Problem Obstructive sleep apnea syndrome G47.33 Active 46434509 Problem Perennial allergic rhinitis, unspecified allergic rhinitis trigger J30.89 Active 576491148 ALLERGIES No Information ENCOUNTERS Encounter Location Date Diagnosis [facility] [place] [address] [facility] [id number] [address] Apr, [facility] [place] [id number], [place] [address] March, Other chronic pain G89.29 Via [facility] [address] [place] [id number] March, Arthralgia, unspecified joint M25.50 ; Abnormal urine sediment R82.90 ; Venous stasis dermatitis of both lower extremities I87.2 ; Stage 4 chronic kidney disease N18.4 and Cataract of right eye, unspecified cataract type H26.9 [place] [address] [place] [address] 28676- 3899 March, Primary insomnia F51.01 [facility] [address] [place] [id number] March, Cervicalgia M54.2 ; Acute pain of right shoulder M25.511 and Pain of left femur M89.8X5 [place] [id number] [place] [address] 76816- 3668 March, [place] [id number] [place] [address] 87859- 5036 March, Other chronic pain G89.29 [place] [id number] [place] [address] 49839- 2407 Feb, Via [email or web address] [address] [place] [id number] Feb, Leg swelling M79.89 [place] [id number] [place] [address] 03349- 0966 Feb, Primary insomnia F51.01 Via [facility] [address] [place] [id number] Feb, Fever in other diseases R50.81 and Intermittent left lower quadrant abdominal pain R10.32 [place] [address] [place] [address] 86705- 0553 Feb, [place] [address] [place] [address] 90786- 0164 Feb, [place] [address] [place] [address] 01519- 6638 Feb, Depression, unspecified depression type F32.9 ; Hypothyroidism, unspecified type E03.9 ; Type 2 diabetes mellitus without complication, unspecified terminal clerk insulin use status E11.9 and Anxiety F41.9 [place] [id number] [place] [address] 98304- 0366 Feb, Other chronic pain G89.29 [place] [address] [id number] Jan, Other chronic pain G89.29 [place] [address] [address]- 8864 Jan, Bladder spasms N32.89 [place] [id number] [place] [address] 12153- 8514 Jan, Bladder spasms N32.89 [place] [id number] [place] [address] 43017- 1770 Dec, Bladder spasms N32.89 [place] [id number] [place] [address] 29941- 9402 Dec, Depression, unspecified depression type F32.9 [place] [id number] [place] [address] 10949- 7203 Dec, Via [facility] [address] [place] [id number] Dec, Hypothyroidism, unspecified type E03.9 ; Depression, unspecified depression type F32.9 ; Other chronic pain G89.29 ; Urinary retention R33.9 and Atrial fibrillation, unspecified type I48.91 [place] [id number] [place] [address] [id number] Dec, [place] [id number] [place] [address] [id number] Dec, Other chronic pain G89.29 [place] [address] [id number] Nov, [facility] [id number] [place] [address] [id number] Nov, Other chronic pain G89.29 [facility] [place] [address] [place] [address] 49211- 2567 Nov, Other chronic pain G89.29 [facility] [place] [address] [place] [address] 61490- 3137 Nov, [facility] [place] [address] [place] [address] 895149- 0545 Nov, [facility] [place] [id number] [place] [address] [id number]- 9754 Nov, Other chronic pain G89.29 [facility] [place] [address] [place] [address] 77782- 1054 Nov, Other chronic pain G89.29 [facility] [place] [address] [place] [address] [phone]- 9815 14 Oct, 2017 [facility] [place] [address] [place] [address] 56226- 9509 Oct, Other chronic pain G89.29 Via [facility] [address] [place] [address] Oct, Weakness R53.1 ; Macrocytic anemia D53.9 ; Discolored skin L81.9 ; Other chronic pain G89.29 ; Dysuria R30.0 and Hayes catheter in place Z92.89 [facility] [place] [id number] Oct, Other chronic pain G89.29 [facility] [id number] [place] [address] [id number] Sep, [facility] [place] [address] [place] [address] 15659- 1264 Sep, [facility] [place] [address] [place] [address] 41173- 3316 Sep, [facility] [id number] [id number] Sep, [facility] [id number] [place] [address] [id number] Sep, Other chronic pain G89.29 [facility] [place] [id number] [place] [address] 38001- 2836 Sep, [facility] [id number] [place] [address] [id number] Sep, Other chronic pain G89.29 Via [facility] [address] [place] [address] Sep, Chronic urinary tract infection N39.0 ; Other chronic pain G89.29 ; Chronic kidney disease (CKD), unspecified stage N18.9 ; Type 2 diabetes mellitus without complication, unspecified terminal clerk insulin use status E11.9 ; Hypothyroidism, unspecified type E03.9 ; Depression, unspecified depression type F32.9 ; Cataract H26.9 ; Obstructive sleep apnea syndrome G47.33 ; Atrial fibrillation, unspecified type I48.91 ; History of femur fracture Z87.81 and [address] catheter [address] Z92.89 [facility] [place] [address] [place] [address] [id number]- 0835 Sep, [facility] [place] [address] [place] [address] 15621- 7969 Aug, [facility] [place] [address] [place] [address] 55801- 3561 Aug, Other chronic pain G89.29 [facility] [place] [address], [place] [address] 1406 Aug, [facility] [place] [id number] [place] [address] [id number]- 8028 Aug, [facility] [id number] [place] [address] [id number] Aug, [facility] [place] [id number] [place] [address] 48299- 1154 23 Aug, 2017 [facility] [place] [address], [place] [address] 4682 Aug, Type 2 diabetes mellitus without complication, unspecified terminal clerk insulin use status E11.9 [facility] [place] [address], [place] [address] 4836 Aug, Other chronic pain G89.29 [facility] [place] [id number] [place] [address] 83633- 4926 18 Aug, 2017 [facility] [place] [id number] [place] [address] 66241- 6916 16 Aug, 2017 [facility] [place] [id number] [place] [address] 82072- 9167 22 Jul, 2017 Other chronic pain G89.29 [facility] [place] [id number] [place] [address] 07002 2546 19 Jul, 2017 [facility] [place] [address] [id number] [address] 2546 19 Jul, 2017 Dark brown urine R82.99 [facility] [place] [address] [place] [address] 74233 2546 19 Jul, 2017 Dark brown urine R82.99 [facility] [place] [address], [place] [address] 2546 14 Jul, 2017 [facility] [place] [address], [place] [address] 2546 Jun, Other chronic pain G89.29 [facility] [place] [address], [place] [address] 2540 Jun, Type 2 diabetes mellitus without complication, unspecified chcf insulin use status E11.9 [facility] [place] [address], [place] [address] 2545 May, Candidiasis, intertrigo B37.2 [facility] [place] [address], [place] [address]- 9446 May, Other chronic pain G89.29 [place] [id number] [place] [address] 64667- 5388 May, [place] [id number] [place] [address] 73928- 2435 May, [place] [id number] [place] [address] 53691- 2342 May, Candidiasis, intertrigo B37.2 [place] [id number] [place] [address] 02262- 4098 May, Atrial fibrillation, unspecified type I48.91 [place] [id number] [place] [address] 01305- 9422 May, Hypothyroidism, unspecified type E03.9 and Decreased renal function N28.9 [place] [id number] [place] [address] 49676- 9341 May, Type 2 diabetes mellitus without complication, unspecified terminal clerk insulin use status E11.9 [place] [id number] [place] [address] 83349- 8631 May, Dental examination Z01.20 [place] [id number] [place] [address] 73045- 8938 May, Chronic kidney disease (CKD), unspecified stage N18.9 ; Type 2 diabetes mellitus without complication, unspecified chcf insulin use status E11.9 ; Hypothyroidism, unspecified type E03.9 ; Depression, unspecified depression type F32.9 ; Anemia, unspecified type D64.9 and Ulcer L98.499 [place] [id number] [place] [address] 16356- 5486 May, [place] [id number] [place] [address] 32442- 9510 Apr, Other chronic pain G89.29 [place] [id number] [place] [address] 24971- 9399 Apr, Other chronic pain G89.29 [facility] [place] [address], [place] [address]- 2428 March, [facility] [place] [address], [place] [address]- 6882 March, [facility] [place] [address], [place] [address]- 0046 March, [facility] [place] [id number] [place] [address] 12700- 6697 March, Other chronic pain G89.29 [facility] [place] [address] [place] [address] 42736- 4253 March, [facility] [place] [address] [place] [address] 99458- 3244 Feb, [facility] [place] [address] [place] [address] 73116- 0735 Feb, Type 2 diabetes mellitus without complication, unspecified chcf insulin use status E11.9 ; Candidiasis, intertrigo B37.2 ; Decubitus ulcer of left buttock, unstageable L89.320 and Pressure ulcer of contiguous region involving right buttock and hip, unspecified ulcer stage L89.40 [facility] [place] [address], [place] [address]- 4746 Feb, Atrial fibrillation, unspecified type I48.91 [facility] [place] [address], [place] [address]- 8255 Feb, [facility] [place] [address], [place] [address]- 3846 Feb, [facility] [place] [address] [place] [address] 59165- 6825 Feb, Other chronic pain G89.29 [facility] [place] [address], [place] [address]- 9150 Jan, Other chronic pain G89.29 [facility] [place] [address], [place] [address]- 9452 28 Dec, 2016 [facility] [place] [address], [place] [address]- 7256 Dec, Lethargy R53.83 [facility] [place] [address], [place] [address]- 7356 17 Dec, 2016 [facility] [place] [id number] [place] [address] 64941- 3563 Dec, Other chronic pain G89.29 [facility] [place] [address], [place] [address]- 4043 Nov, [facility] [place] [address] [place] [address] 13105- 3847 Nov, [facility] [place] [address] [place] [address] 39664- 9523 Nov, Other chronic pain G89.29 [facility] [place] [address], [place] [address]- 1452 Nov, [facility] [place] [address] [place] [address] 45896- 4052 Nov, [facility] [place] [address], [place] [address]- 3050 Nov, [facility] [place] [address], [place] [address]- 3173 Oct, Cough R05 [facility] [place] [address], [place] [address]- 1537 Oct, Urinary tract infection, site not specified N39.0 [facility] [place] [address], [place] [address]- 1310 Oct, Other chronic pain G89.29 [facility] [place] [address], [place] [address]- 3492 Oct, Type 2 diabetes mellitus without complication, unspecified terminal clerk insulin use status E11.9 ; Other chronic [...] J30.89 ; Nausea R11.0 and Candidiasis B37.9 [place] [id number] [place] [address] 84014- 5260 Oct, [place] [address] 07861- 1519 Oct, [place] [address] 71921- 7340 Oct, [place] [address] 28503- 8083 Oct, Chronic kidney disease (CKD), unspecified stage N18.9 [place] [address] 24600- 2367 Oct, [place] [id number] [place] [address] 55699- 0142 Sep, Other chronic pain G89.29 [place] [id number] [place] [address] 24380- 5927 Sep, Chronic kidney disease (CKD), unspecified stage N18.9 and Senile cataract of right eye, unspecified age-related cataract type H25.9 [place] [id number] [place] [address] 10247- 2863 Sep, [place] [id number] [place] [address] 03714- 0041 Sep, [place] [address] 79346- 3276 Sep, [facility] [place] [id number], [place] [address]- 9497 Sep, [facility] [place] [address], [place] [address]- 5956 Sep, [facility] [place] [address], [place] [address]- 6796 Aug, [facility] [place] [address], [place] [address]- 3092 Aug, [facility] [place] [address], [place] [address]- 4867 Aug, [place] [address], [place] [address]- 8493 Aug, Encounter to establish care Z76.89 ; [...] and Gastroesophageal reflux disease without esophagitis K21.9 [place] [address], [place] [address]- 2946 Aug, [facility] [place] [id number], [place] [address]- 0359 Aug, Urinary incontinence, unspecified type R32 [facility] [place] [id number], [place] [address]- 9565 Aug, [place] [id number], [place] [address]- 0667 Jul, [facility] [address] [place] [id number] Jul, Type 2 diabetes mellitus without complication, unspecified terminal clerk insulin use status E11.9 ; Chronic kidney [...] E03.9 and Constipation, unspecified constipation type K59.00 [place] [id number] [place] [address] 94853- 7305 Jul, [place] [address] 78233- 7914 Jul, [facility] [id number] Jul, Anemia, unspecified type D64.9 ; Acute renal failure, unspecified acute renal failure type N17.9 ; Other chronic pain G89.29 ; Obstructive sleep apnea syndrome G47.33 and Type 2 diabetes mellitus without complication, unspecified chcf insulin use status E11.9 [place] [id number] [place] [address] 57139- 8640 Jul, [place] [id number] [place] [address] 79795- 7946 Jul, [place] [id number] [place] [address] 91160- 2922 Jul, [place] [id number] [place] [address] 97723- 0071 Jul, [place] [id number] [place] [address] 68225- 4570 Jul, [facility] [address] [id number] Jun, Other chronic pain G89.29 ; Hayes catheter in place Z92.89 ; Chronic kidney disease (CKD), unspecified stage N18.9 and Blisters of multiple sites R23.8 [facility] [place] [address] [id number] [place] [address]- 5915 Jun, [facility] [place] [address] [id number] [place] [address]- 5424 Jun, [facility] [place] [address] [id number] [place] [address]- 4481 Jun, [facility] [place] [address] [id number] [place] [address]- 2872 Jun, [facility] [place] [address] [id number] [place] [address]- 5107 Jun, [facility] [place] [address] [id number] [place] [address]- 0964 Jun, [facility] [place] [address] [id number] [place] [address]- 5060 Jun, [facility] [place] [address] [id number] [place] [address]- 4461 Jun, [facility] [place] [address] [id number] [place] [address]- 3487 Jun, [facility] [place] [address] [facility] [id number] [place] [address]- 3579 Jun, [facility] [place] [address] [id number] [place] [address]- 7454 Jun, [facility] [place] [address] [id number] [address]- 0932 May, [facility] [place] [address] [id number] [place] [address]- 9143 May, [facility] [place] [address] [facility] [id number] [address]- 3956 May, Other chronic pain G89.29 [facility] [address] [id number] May, Encounter to [facility] care Z76.89 ; Type 2 diabetes [...] Refill PLAN OF CARE VITAL SIGNS MEDICATIONS Unknown [...] Acute Kidney Injury 08/05/16 Hospitalization History UTI, Sepsis--[facility] Hospitalization History Chest pain/SOB/A-fib 02/2017 Hospitalization History Chest pain-[facility] 04/13/17 Hospitalization History UTI, respiratory failure, altered mental status-[facility] 09/13/17
--- OUTSIDE RECORDS SUMMARY | 2018-09-17 19:46 | XMS REPORT ---
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 Name Role Phone LATONYA KIM Unavailable PROBLEMS Type Condition ICD9-CM Code FTG22-IV Code Onset Dates Condition Status SNOMED Code Problem Atrial fibrillation, unspecified type I48.91 Active 76214790 Problem Decreased renal function N28.9 Active 91615663 Problem Ulcer L98.499 Active 678431364 Problem Venous stasis dermatitis of both lower extremities I87.2 Active 77031692 Problem Urinary incontinence, unspecified type R32 Active 141721608 Problem Stage 4 chronic kidney disease N18.4 Active 935053980 Problem Morbid obesity due to excess calories E66.01 Active 460071572 Problem Closed fracture of left patella, unspecified fracture morphology, sequela S82.002S Active 93435994 Problem Bladder spasms N32.89 Active 981048503 Problem Chronic fatigue R53.82 Active 16424595 Problem Primary insomnia F51.01 Active 9500110 Problem Anxiety F41.9 Active 87599503 Problem Type 2 diabetes mellitus without complication, unspecified fdc insulin use status E11.9 Active 65840170 Problem Depression, unspecified depression type F32.9 Active 66437424 Problem Cataract H26.9 Active 075559560 Problem Chronic kidney disease (CKD), unspecified stage N18.9 Active 478211378 Problem Gastroesophageal reflux disease without esophagitis K21.9 Active 124236769 Problem Other chronic pain G89.29 Active 58263874 Problem Hypothyroidism, unspecified type E03.9 Active 48649542 Problem Restless leg syndrome G25.81 Active 37377562 Problem Obstructive sleep apnea syndrome G47.33 Active 81184619 Problem Perennial allergic rhinitis, unspecified allergic rhinitis trigger J30.89 Active 336441312 ALLERGIES No Information ENCOUNTERS Encounter Location Date Diagnosis [facility] [address] [facility] [id number], [place] [address] Apr, [facility] [address] [id number] [address] Apr, [facility] [address], [place] [address] Apr, Primary insomnia F51.01 [place] [address], [place] [address] Apr, [place] [address] [place] [address] 07954- 0465 March, Other chronic pain G89.29 [facility] [address] [place] [id number] March, Arthralgia, unspecified joint M25.50 ; Abnormal urine sediment R82.90 ; Venous stasis dermatitis of both lower extremities I87.2 ; Stage 4 chronic kidney disease N18.4 and Cataract of right eye, unspecified cataract type H26.9 [place] [address], [place] [address] March, Primary insomnia F51.01 [facility] [address] [place] [id number] March, Cervicalgia M54.2 ; Acute pain of right shoulder M25.511 and Pain of left femur M89.8X5 [place] [id number], [place] [address] March, [place] [address] [place] [address] 90045- 0862 March, Other chronic pain G89.29 [place] [address] [id number], [place] [address] Feb, [facility] [address] [place] [id number] Feb, Leg swelling M79.89 [facility] [id number], [place] [address] 1133 Feb, Primary insomnia F51.01 [facility] [address] [place] [id number] Feb, Fever in other diseases R50.81 and Intermittent left lower quadrant abdominal pain R10.32 [place] [id number] [place] [address] 06013- 7909 Feb, [place] [id number] [place] [address] 16658- 3105 Feb, [place] [address] [address] Feb, Depression, unspecified depression type F32.9 ; Hypothyroidism, unspecified type E03.9 ; Type 2 diabetes mellitus without complication, unspecified tank terminal gauger insulin use status E11.9 and Anxiety F41.9 [place] [id number] [place] [address] 82181- 7195 Feb, Other chronic pain G89.29 [place] [address] [id number] Jan, Other chronic pain G89.29 [place] [id number] [place] [address] 59501- 8159 Jan, Bladder spasms N32.89 [place] [id number] [place] [address] 76802- 9903 Jan, Bladder spasms N32.89 [place] [id number] [place] [address] 09215- 2608 Dec, Bladder spasms N32.89 [place] [id number] [place] [address] 05025- 7861 Dec, Depression, unspecified depression type F32.9 [place] [id number] [place] [address] 94973- 6510 Dec, Via [facility] [address] [place] [id number] Dec, Hypothyroidism, unspecified type E03.9 ; Depression, unspecified depression type F32.9 ; Other chronic pain G89.29 ; Urinary retention R33.9 and Atrial fibrillation, unspecified type I48.91 [facility] [id number] [place] [id number] Dec, [facility] [id number] [place] [address] [id number] Dec, Other chronic pain G89.29 [facility] [id number] [place] [address] [id number] Nov, [facility] [id number] [place] [address] [id number] Nov, Other chronic pain G89.29 [facility] [id number] [place] [address] 65852- 3501 Nov, Other chronic pain G89.29 [place] [id number] [place] [address] 11189- 4512 Nov, [facility] [id number] [place] [address] 93183809- 7859 Nov, [facility] [address] [place] [address] [id number]- 3593 Nov, Other chronic pain G89.29 [facility] [id number] [place] [address] [id number]- 2674 Nov, Other chronic pain G89.29 [facility] [address] [place] [address] [id number]- 6721 Oct, [facility] [address] [place] [address] [phone]- 2693 Oct, Other chronic pain G89.29 [address] [facility] [place] [address] [place] [id number] Oct, Weakness R53.1 ; Macrocytic anemia D53.9 ; Discolored skin L81.9 ; Other chronic pain G89.29 ; Dysuria R30.0 and Hayes catheter in place Z92.89 [facility] [address] [place] [address] 43028- 6139 Oct, Other chronic pain G89.29 [facility] [address] [id number] [id number] Sep, [facility] [address] [facility] [id number], [place] [address] 1369 Sep, [facility] [address] [facility] [id number], [place] [address] 9903 Sep, [facility] [id number] [place] [address] [id number] Sep, [facility] [address] [place] [id number] Sep, Other chronic pain G89.29 [facility] [id number], [place] [address] 8856 Sep, [facility] [address] [place] [address] Sep, Other chronic pain G89.29 [address] [facility] [place] [address] [place] [id number] Sep, Chronic urinary tract infection N39.0 ; [...] catheter in place Z92.89 [facility] [address] [id number], [place] [address] Sep, [facility] [address] [facility] [id number], [place] [address] 6478 Aug, [facility] [id number], [place] [address] 2090 Aug, Other chronic pain G89.29 [facility] [address], [place] [address] 0241 Aug, [facility] [place] [facility] [address], [place] [address] 7163 Aug, [facility] [place] [facility] [address] 2008[place] [id number] Aug, [facility] [address] [place] [address] 77734- 5498 Aug, [facility] [address] [place] [address] 00806- 7949 Aug, Type 2 diabetes mellitus without complication, unspecified tank terminal gauger insulin use status E11.9 [facility] [address], [place] [address] 8795 Aug, Other chronic pain G89.29 [facility] [address], [place] [address]- 9596 18 Aug, 2017 [facility] [address] [place] [address] 18895- 4829 16 Aug, 2017 [facility] [address] [place] [address] 01171- 8911 22 Jul, 2017 Other chronic pain G89.29 [facility] [address], [place] [address]- 8501 19 Jul, 2017 [facility] [address], [place] [address]- 3952 19 Jul, 2017 Dark brown urine R82.99 [facility] [address], [place] [address]- 5366 19 Jul, 2017 Dark brown urine R82.99 [facility] [address], [place] [address]- 3609 14 Jul, 2017 [facility] [address], [place] [address]- 9429 Jun, Other chronic pain G89.29 [facility] [address] [place], [place] [address]- 8071 Jun, Type 2 diabetes mellitus without complication, unspecified tank terminal gauger insulin use status E11.9 [place] [id number] [place] [address] 71225- 2075 May, Candidiasis, intertrigo B37.2 [place] [id number] [place] [address] 04943- 9589 May, Other chronic pain G89.29 [place] [id number] [place] [address] 64909- 5920 May, [place] [id number] [place] [address] 64806- 0287 May, [place] [id number] [place] [address] 28550- 8685 May, Candidiasis, intertrigo B37.2 [place] [id number] [place] [address] 44085- 6817 May, Atrial fibrillation, unspecified type I48.91 [place] [id number] [place] [address] 26063- 9951 May, Hypothyroidism, unspecified type E03.9 and Decreased renal function N28.9 [place] [id number] [place] [address] 20602- 0730 May, Type 2 diabetes mellitus without complication, unspecified tank terminal gauger insulin use status E11.9 [place] [id number] [place] [address] 75969- 9951 May, Dental examination Z01.20 [place] [id number] [place] [address] 45291- 9539 May, Chronic kidney disease (CKD), unspecified stage N18.9 ; Type 2 diabetes mellitus without complication, unspecified fdc insulin use status E11.9 ; Hypothyroidism, unspecified type E03.9 ; Depression, unspecified depression type F32.9 ; Anemia, unspecified type D64.9 and Ulcer L98.499 [facility] [address], [place] [address]- 8156 May, [facility] [id number] [place] [address] 89890- 2507 Apr, Other chronic pain G89.29 [facility] [address], [place] [address]- 7963 Apr, Other chronic pain G89.29 [facility] [id number] [place] [address] 32786- 8593 March, [facility] [id number] [place] [address] 01908- 3270 March, [facility] [id number] [place] [address] 35865- 6577 March, [facility] [id number] [place] [address] 95997- 1111 March, Other chronic pain G89.29 [facility] [address] [place] [address] 11022- 2810 March, [facility] [id number] [place] [address] 87735- 6055 Feb, [facility] [address] [place] [address] 58694- 7619 Feb, Type 2 diabetes mellitus without complication, unspecified fdc insulin use status E11.9 ; Candidiasis, intertrigo B37.2 ; Decubitus ulcer of left buttock, unstageable L89.320 and Pressure ulcer of contiguous region involving right buttock and hip, unspecified ulcer stage L89.40 [facility] [id number] [place] [address] 57039- 7189 Feb, Atrial fibrillation, unspecified type I48.91 [facility] [address], [place] [address]- 9636 Feb, [facility] [id number] [place] [address] 31139- 0033 Feb, [facility] [address], [place] [address]- 0816 Feb, Other chronic pain G89.29 [facility] [address], [place] [address] 2546 Jan, Other chronic pain G89.29 [facility] [address], [place] [address]- 5816 Dec, [facility] [address], [place] [address] 2542 Dec, Lethargy R53.83 [facility] [address] [place] [address] 87002- 0556 17 Dec, 2016 [facility] [address], [place] [address]- 4235 Dec, Other chronic pain G89.29 [facility] [address], [place] [address]- 4492 Nov, [facility] [address], [place] [address]- 3401 Nov, [facility] [address], [place] [address]- 6262 Nov, Other chronic pain G89.29 [facility] [address], [place] [address]- 2466 Nov, [facility] [address], [place] [address] 254 Nov, [facility] [address], [place] [address]- 1361 Nov, [facility] [address], [place] [address]- 2540 Oct, Cough R05 [facility] [address] [address] 5880 Oct, Urinary tract infection, site not specified N39.0 [place] [address] [place] [address] 87143- 3035 16 Oct, 2016 Other chronic pain G89.29 [place] [id number] [place] [address] 40708- 2290 15 Oct, 2016 Type 2 diabetes mellitus [...] J30.89 ; Nausea R11.0 and Candidiasis B37.9 [place] [id number] [place] [address] 45368- 6101 Oct, [place] [id number] [place] [address] 98420- 0233 Oct, [place] [id number] [place] [address] 22756- 4808 Oct, [place] [id number] [place] [address] 13337- 1141 Oct, Chronic kidney disease (CKD), unspecified stage N18.9 [place] [address] [place] [address] 02566- 1057 Oct, [place] [id number] [place] [address] 18994- 0665 Sep, Other chronic pain G89.29 [place] [address] [place] [address] 91535- 5252 Sep, Chronic kidney disease (CKD), unspecified stage N18.9 and Senile cataract of right eye, unspecified age-related cataract type H25.9 [facility] [address], [place] [address]- 6086 Sep, [facility] [address], [place] [address]- 7551 Sep, [facility] [address], [place] [address]- 8844 Sep, [facility] [id number] [place] [address] 00856- 5706 Sep, [facility] [address] [place] [address] 17804- 9076 Sep, [facility] [id number] [place] [address] 16769- 9342 Aug, [facility] [address], [place] [address]- 7560 Aug, [facility] [address], [place] [address]- 7408 Aug, [facility] [address], [place] [address]- 6207 18 Aug, 2016 Encounter to establish care Z76.89 ; Other chronic pain G89.29 ; Chronic kidney disease (CKD), unspecified stage N18.9 ; Obstructive sleep apnea syndrome G47.33 ; Type 2 diabetes mellitus without complication, unspecified tank terminal gauger insulin use status E11.9 ; Urinary incontinence, unspecified type R32 ; Depression, unspecified depression type F32.9 ; History of femur fracture Z87.81 ; History of fractured kneecap Z87.81 ; Hypothyroidism , unspecified type E03.9 ; Cataract H26.9 and Gastroesophageal reflux disease without esophagitis K21.9 [facility] [address], [place] [address]- 1411 14 Aug, 2016 [facility] [address], [place] [address]- 0466 Aug, Urinary incontinence, unspecified type R32 [facility] [address] [place], [place] [address]- 7963 Aug, [place] [address] [place] [address] 85599- 2419 Jul, [address] [id number] Jul, Type 2 diabetes mellitus without complication, [...] E03.9 and Constipation, unspecified constipation type K59.00 [address] [place] [address] 02012- 1073 Jul, [place] [id number] [place] [address] 58936- 1272 16 Jul, [address] [id number] Jul, Anemia, unspecified type D64.9 ; Acute renal failure, unspecified acute renal failure type N17.9 ; Other chronic pain G89.29 ; Obstructive sleep apnea syndrome G47.33 and Type 2 diabetes mellitus without complication, unspecified fdc insulin use status E11.9 [place] [address], [place] [address]- 3087 Jul, [place] [id number] [place] [address] 61638- 4590 Jul, [place] [id number] [place] [address] 56465- 5022 Jul, [place] [id number] [place] [address] 81358- 5722 Jul, [facility] [address] [id number] [place] [address]- 0434 Jul, [facility] [address] [place] [id number] Jun, Other chronic pain G89.29 ; Hayes catheter in place Z92.89 ; Chronic kidney disease (CKD), unspecified stage N18.9 and Blisters of multiple sites R23.8 [facility] [address] [id number] [place] [address]- 7191 Jun, [facility] [address] [id number] [place] [address]- 9669 Jun, [facility] [address] [id number] [place] [address]- 4133 Jun, [facility] [address] [id number] [place] [address]- 1009 Jun, [facility] [address] [id number] [place] [address]- 7133 Jun, [facility] [address] [id number] [place] [address]- 1416 Jun, [facility] [address] [facility] [id number] [place] [address]- 3556 Jun, [facility] [address] [id number] [place] [address]- 9329 Jun, [facility] [address] [id number] [place] [address]- 2484 Jun, [facility] [address] [id number] [place] [address]- 8531 Jun, [facility] [address] [facility] [id number] [place] [address]- 2064 Jun, [facility] [address] [facility] [id number] [place] [address]- 3608 May, [facility] [address] [facility] [id number] [place] [address]- 3019 May, [facility] [address] [facility] [id number] [place] [address]- 0998 May, Other chronic pain G89.29 [facility] [address] [place] [id number] May, Encounter to establish care Z76.89 ; [...] 4 times a day 1 tablet 6h Dec, 28 days Active RESULTS No Results PROCEDURES [...]
--- OUTSIDE RECORDS SUMMARY | 2018-09-17 19:47 | XMS REPORT ---
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 Name Role Phone LALA ARTI Unavailable PROBLEMS Type Condition ICD9-CM Code UFQ33-UA Code Onset Dates Condition Status SNOMED Code Problem Atrial fibrillation, unspecified type I48.91 Active 36189884 Problem Decreased renal function N28.9 Active 78898810 Problem Ulcer L98.499 Active 968355509 Problem Venous stasis dermatitis of both lower extremities I87.2 Active 66497083 Problem Urinary incontinence, unspecified type R32 Active 015229997 Problem Stage 4 chronic kidney disease N18.4 Active 883300751 Problem Morbid obesity due to excess calories E66.01 Active 554233510 Problem Closed fracture of left patella, unspecified fracture morphology, sequela S82.002S Active 83420249 Problem Bladder spasms N32.89 Active 754676461 Problem Chronic fatigue R53.82 Active 75475766 Problem Primary insomnia F51.01 Active 1227336 Problem Anxiety F41.9 Active 77653553 Problem Type 2 diabetes mellitus without complication, unspecified nursing home insulin use status E11.9 Active 84494501 Problem Depression, unspecified depression type F32.9 Active 07867084 Problem Cataract H26.9 Active 844735012 Problem Chronic kidney disease (CKD), unspecified stage N18.9 Active 132672735 Problem Gastroesophageal reflux disease without esophagitis K21.9 Active 207914137 Problem Other chronic pain G89.29 Active 32188072 Problem Hypothyroidism, unspecified type E03.9 Active 63389386 Problem Restless leg syndrome G25.81 Active 81406997 Problem Obstructive sleep apnea syndrome G47.33 Active 08559387 Problem Perennial allergic rhinitis, unspecified allergic rhinitis trigger J30.89 Active 463142660 ALLERGIES No Information ENCOUNTERS Encounter Location Date Diagnosis Via [facility] [address] [place] [id number] March, Arthralgia, unspecified joint M25.50 ; Abnormal urine sediment R82.90 ; Venous stasis dermatitis of both lower extremities I87.2 ; Stage 4 chronic kidney disease N18.4 and Cataract of right eye, unspecified cataract type H26.9 [place] [facility] [id number] [place] [address] 28600- 2983 March, Primary insomnia F51.01 Via [facility] [address] [place] [id number] March, Cervicalgia M54.2 ; Acute pain of right shoulder M25.511 and Pain of left femur M89.8X5 [facility] [facility] [address] [address] March, [place] [facility] [id number] [place] [address] 09211- 6273 March, Other chronic pain G89.29 [facility] [id number] [place] [address] 60547- 1113 Feb, Via [facility] [address] [place] [id number] Feb, Leg swelling M79.89 [place] [id number] [place] [address] 82155- 9910 Feb, Primary insomnia F51.01 Via [facility] [address] [place] [id number] Feb, Fever in other diseases R50.81 and Intermittent left lower quadrant abdominal pain R10.32 [place] [id number] [place] [address] 19807- 5764 Feb, [place] [id number] [place] [address] 40708- 1754 Feb, [facility] [facility] [id number] [place] [address] 71624- 3980 Feb, Depression, unspecified depression type F32.9 ; Hypothyroidism, unspecified type E03.9 ; Type 2 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 mellitus without complication, 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 and Anxiety F41.9 [facility] [address] [address] 9774 Feb, Other chronic pain G89.29 [facility] [id number] [place] [id number] Jan, Other chronic pain G89.29 [place] [address], [place] [address] 6553 Jan, Bladder spasms N32.89 [facility] [address] [place] [address] [id number]- 7118 Jan, Bladder spasms N32.89 [facility] [id number] [place] [address] 07231- 0341 Dec, Bladder spasms N32.89 [facility] [id number] [place] [address] 58766- 3141 Dec, Depression, unspecified depression type F32.9 [facility] [address], [place] [address] 3478 Dec, [address] [place] [facility] [address] [place] [id number] Dec, Hypothyroidism, unspecified type E03.9 ; Depression, unspecified depression type F32.9 ; Other chronic pain G89.29 ; Urinary retention R33.9 and Atrial fibrillation, unspecified type I48.91 [facility] [id number] [id number] Dec, [facility] [id number] [id number] Dec, Other chronic pain G89.29 [place] [facility] [id number] [id number] Nov, [facility] [facility] [id number] [id number] Nov, Other chronic pain G89.29 [facility] [address], [place] [address] 7349 Nov, Other chronic pain G89.29 [facility] [address], [place] [address] 8883 Nov, [facility] [address], [place] [address]- 5474 Nov, [facility] [address] [place] [address] 57392- 6581 Nov, Other chronic pain G89.29 [facility] [address] [place] [address] 56349- 7186 Nov, Other chronic pain G89.29 [facility] [address] [place] [address] 31620- 2162 14 Oct, 2017 [facility] [address] [place] [address] 79448- 6784 Oct, Other chronic pain G89.29 [facility] [address] [place] [id number] 14 Oct, 2017 Weakness R53.1 ; Macrocytic anemia D53.9 ; Discolored skin L81.9 ; Other chronic pain G89.29 ; Dysuria R30.0 and Hayes catheter in place Z92.89 [facility] [address], [place] [address] 7028 07 Oct, 2017 Other chronic pain G89.29 [facility] [id number] [id number] Sep, [facility] [address], [place] [address] 0374 Sep, [facility] [address] [place] [address] 871247- 7368 Sep, [facility] [id number] [place] [id number] Sep, [facility] [id number] [place] [address] [id number] Sep, Other chronic pain G89.29 [facility] [address] [address] 7160 Sep, [facility] [id number] [id number] Sep, Other chronic pain G89.29 [facility] [address] [place] [id number] Sep, Chronic urinary tract infection N39.0 ; [...] Z87.81 and Hayes catheter in place Z92.89 [facility] [address], [place] [address] 4729 Sep, [facility] [address], [place] [address] 6190 Aug, [facility] [address] [place] [address] 49686- 2476 Aug, Other chronic pain G89.29 [facility] [address], [place] [address] 2258 Aug, [facility] [address], [place] [address]- 1835 Aug, [facility] [id number] [address] Aug, [facility] [id number] [address]- 0271 Aug, [facility] [address], [place] [address] 3875 Aug, Type 2 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 mellitus without complication, 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 [facility] [address], [place] [address]- 0226 19 Aug, 2017 Other chronic pain G89.29 [facility] [address], [place] [address]- 9941 18 Aug, 2017 [facility] [address] [place] [address] 84653- 4010 16 Aug, 2017 [facility] [id number] [place] [address] 75949- 2168 22 Jul, 2017 Other chronic pain G89.29 [facility] [address] [place] [address] 35786- 4186 19 Jul, 2017 [facility] [id number] [place] [address] 05697- 3681 19 Jul, 2017 Dark brown urine R82.99 [facility] [address] [place] [address] 47183- 2962 19 Jul, 2017 Dark brown urine R82.99 [facility] [address] [place] [address] 96077- 0885 14 Jul, 2017 [facility] [address] [place] [address] 49245- 9833 Jun, Other chronic pain G89.29 [facility] [address], [place] [address]- 6626 Jun, 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 mellitus 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 complication, 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 [facility] [address], [place] [address]- 0628 May, Candidiasis, intertrigo B37.2 [facility] [id number] [place] [address] 59517- 5328 May, Other chronic pain G89.29 [facility] [address], [place] [address]- 5634 May, [facility] [id number] [place] [address] 87616- 9969 May, [facility] [address] [place] [address] 27387- 4998 May, Candidiasis, intertrigo B37.2 [place] [id number] [place] [address] 34648- 7101 May, Atrial fibrillation, unspecified type I48.91 [place] [place] [id number] [place] [address] 99124- 4582 May, Hypothyroidism, unspecified type E03.9 and Decreased renal function N28.9 [facility] [id number] [place] [address] 53341- 6890 May, 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 2 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 mellitus without complication, 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 [facility] [id number] [place] [address] 09741- 5911 May, Dental examination Z01.20 [facility] [id number] [place] [address] 25473- 0796 May, Chronic kidney disease (CKD), unspecified stage N18.9 ; Type 2 diabetes mellitus without complication, 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 ; Hypothyroidism, unspecified type E03.9 ; Depression, unspecified depression type F32.9 ; Anemia, unspecified type D64.9 and Ulcer L98.499 [facility] [address] [place] [address] 37288- 8657 May, [facility] [address] [place] [address] 74445- 8707 Apr, Other chronic pain G89.29 [place] [id number] [place] [address] 16318- 9256 Apr, Other chronic pain G89.29 [facility] [address] [place] [address] 17261- 3618 March, [facility] [facility] [id number] [place] [address] 21538- 4021 March, [facility] [address], [place] [address]- 9478 March, [facility] [id number] [place] [address] 24084- 2154 March, Other chronic pain G89.29 [facility] [id number] [place] [address] 48830- 6020 March, [facility] [id number] [place] [address] 94306- 0157 Feb, [facility] [id number] [place] [address] 36909- 8641 Feb, Type 2 diabetes mellitus without complication, unspecified nursing home insulin use status E11.9 ; Candidiasis, intertrigo B37.2 ; Decubitus ulcer of left buttock, unstageable L89.320 and Pressure ulcer of contiguous region involving right buttock and hip, unspecified ulcer stage L89.40 [facility] [address] [place] [address] 31997- 7901 Feb, Atrial fibrillation, unspecified type I48.91 [facility] [id number] [place] [address] 70862- 5594 Feb, [facility] [address], [place] [address]- 4885 Feb, [facility] [id number] [place] [address] 00668- 5136 Feb, Other chronic pain G89.29 [facility] [address], [place] [address]- 5282 Jan, Other chronic pain G89.29 [facility] [id number] [place] [address] 88581- 4106 Dec, [facility] [address], [place] [address]- 3040 Dec, Lethargy R53.83 [place] [address], [place] [address]- 4117 17 Dec, 2016 [facility] [address], [place] [address]- 3040 Dec, Other chronic pain G89.29 [facility] [address], [place] [address]- 4355 Nov, [facility] [address], [place] [address]- 4334 Nov, [facility] [address], [place] [address]- 5263 Nov, Other chronic pain G89.29 [facility] [address], [place] [address]- 0116 Nov, [facility] [address] [place] [address] 28838- 0138 Nov, [facility] [address], [place] [address]- 0486 Nov, [facility] [address], [place] [address]- 6300 Oct, Cough R05 [facility] [address], [place] [address]- 0584 Oct, Urinary tract infection, site not specified N39.0 [facility] [address], [place] [address]- 5236 Oct, Other chronic pain G89.29 [facility] [id number] [address]- 7474 Oct, Type 2 diabetes mellitus without complication, [...] J30.89 ; Nausea R11.0 and Candidiasis B37.9 [facility] [id number] [place] [address] 47997- 9733 Oct, [facility] [address] 07193- 0512 Oct, [facility] [id number] [place] [address] 52292- 0918 Oct, [place] [address] 42679- 7937 Oct, Chronic kidney disease (CKD), unspecified stage N18.9 [place] [facility] [address] 08002- 2250 Oct, [place] [address] 87689- 8096 Sep, Other chronic pain G89.29 [place] [facility] [address] 29402- 7681 Sep, Chronic kidney disease (CKD), unspecified stage N18.9 and Senile cataract of right eye, unspecified age-related cataract type H25.9 [place] [id number] [place] [address] 60465- 9007 Sep, [place] [id number] [place] [address] 27429- 2696 Sep, [place] [address] 20236- 3786 Sep, [facility] [id number] [place] [address] 79752- 2662 Sep, [facility] [id number] [place] [address] 38864- 4228 Sep, [place] [address], [place] [address]- 6031 Aug, [place] [id number] [place] [address] 56929- 9197 Aug, [place] [id number] [place] [address] 60307- 6160 Aug, [place] [id number] [place] [address] 12245- 8988 Aug, Encounter to establish care Z76.89 ; [...] reflux disease without esophagitis K21.9 [place] [address] [place] [address] 18138- 4695 Aug, [place] [id number] [place] [address] 01643- 7378 Aug, Urinary incontinence, unspecified type R32 [facility] [address] [place] [address] 65628- 6401 Aug, [place] [id number] [place] [address] 77886- 7763 Jul, [facility] [address] [place] [id number] Jul, Type 2 diabetes mellitus without complication, [...] Constipation, unspecified constipation type K59.00 [place] [id number] [place] [address] 39944- 9799 Jul, [place] [id number] [place] [address] 61430- 9468 16 Jul, [address] [facility] [employer] [employer] [id number] 14 Jul, 2016 Anemia, unspecified type D64.9 ; Acute renal failure, unspecified acute renal failure type N17.9 ; Other chronic pain G89.29 ; Obstructive sleep apnea syndrome G47.33 and Type 2 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 mellitus without complication, 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 [place] [id number] [place] [address] 38056- 4494 Jul, [place] [id number] [place] [address] 04191- 1343 Jul, [place] [id number] [place] [address] 82784- 3243 Jul, [place] [id number] [place] [address] 86381- 7304 Jul, [place] [id number] [place] [address] 90012- 3647 Jul, [facility] [address] [id number] Jun, Other chronic pain G89.29 ; Hayes catheter in place Z92.89 ; Chronic kidney disease (CKD), unspecified stage N18.9 and Blisters of multiple sites R23.8 [place] [id number] [place] [address] 74724- 8098 Jun, [place] [id number] [place] [address] 53481- 1472 Jun, [facility] [address] [facility] [id number] [address]- 7471 Jun, [facility] [address] [facility] [id number] [address]- 1434 Jun, [facility] [address] [facility] [id number] [address]- 0879 Jun, [facility] [address] [facility] [id number] [place] [address]- 8039 Jun, [facility] [address] [facility] [id number] [place] [address]- 3417 Jun, [facility] [address] [facility] [id number] [place] [address]- 8276 Jun, [facility] [id number] [address]- 2007 Jun, [facility] [address] [address]- 3319 Jun, [facility] [id number] [address]- 2866 Jun, [facility] [address], [place] [address]- 7339 May, [facility] [id number] [address]- 6835 May, [facility] [id number] [address]- 7862 May, Other chronic pain G89.29 [facility] [address] [id number] May, [facility] Z76.89 ; Type 2 diabetes [...] SOCIAL HISTORY Never Assessed REASON FOR VISIT Missing Discharge Rx PLAN OF CARE VITAL SIGNS MEDICATIONS Unknown [...] Acute Kidney Injury 08/05/16 Hospitalization History UTI, Sepsis--[facility] Hospitalization History Chest pain/SOB/A-fib 02/2017 Hospitalization History Chest pain-[facility] 04/13/17 Hospitalization History UTI, respiratory failure, altered mental status-[facility] 09/13/17
--- OUTSIDE RECORDS SUMMARY | 2018-09-17 19:47 | XMS REPORT ---
Author Author LATONYA KIM [facility] Address [address] [place] [address] Care Team Providers Care Quality Control Technician Name Role Phone LATONYA KIM Unavailable PROBLEMS Type Condition ICD9-CM Code CUB90-RP Code Onset Dates Condition Status SNOMED Code Problem Cataract H26.9 Active 671225069 Problem Restless leg syndrome G25.81 Active 59001544 Problem Other chronic pain G89.29 Active 86997885 Problem Bladder spasms N32.89 Active 817988618 Problem Chronic fatigue R53.82 Active 15266665 Problem Atrial fibrillation, unspecified type I48.91 Active 81999109 Problem Perennial allergic rhinitis, unspecified allergic rhinitis trigger J30.89 Active 981356604 Problem Decreased renal function N28.9 Active 79045761 Problem Ulcer L98.499 Active 659949197 Problem Morbid obesity due to excess calories E66.01 Active 201746602 Problem Urinary incontinence, unspecified type R32 Active 080793100 Problem Closed fracture of left patella, unspecified fracture morphology, sequela S82.002S Active 54330423 Problem Depression, unspecified depression type F32.9 Active 07207561 Problem Hypothyroidism, unspecified type E03.9 Active 67168529 Problem Chronic kidney disease (CKD), unspecified stage N18.9 Active 209016334 Problem Obstructive sleep apnea syndrome G47.33 Active 65831980 Problem Type 2 diabetes mellitus without complication, unspecified powder mixer insulin use status E11.9 Active 83897519 Problem Gastroesophageal reflux disease without esophagitis K21.9 Active 106009388 ALLERGIES No Information ENCOUNTERS Encounter Location Date Diagnosis [facility] [address] [facility] [id number] [address] Feb, Other chronic pain G89.29 [facility] [address] [id number] [id number] Jan, Other chronic pain G89.29 [facility] [address], [place] [address] Jan, Bladder spasms N32.89 [facility] [address] [address] [address] Jan, Bladder spasms N32.89 [facility] [address], [place] [address] 2010 Dec, Bladder spasms N32.89 [facility] [address], [place] [address] Dec, Depression, unspecified depression type F32.9 [facility] [id number] [place] [address] 90619- 1416 Dec, [facility] [address] [facility] [place] [id number] Dec, Hypothyroidism, unspecified type E03.9 ; Depression, unspecified depression type F32.9 ; Other chronic pain G89.29 ; Urinary retention R33.9 and Atrial fibrillation, unspecified type I48.91 [facility] [id number] [id number] Dec, [facility] [id number] [place] [id number] Dec, Other chronic pain G89.29 [facility] [id number] [id number] Nov, [facility] [address] [id number] [id number] Nov, Other chronic pain G89.29 [facility] [address], [place] [address] Nov, Other chronic pain G89.29 [facility] [address], [place] [address] Nov, [facility] [address] [address] Nov, [facility] [id number] [address] Nov, Other chronic pain G89.29 [facility] [address], [place] [address] Nov, Other chronic pain G89.29 [facility] [address] [address] 14 Oct, 2017 [facility] [id number] [place] [id number]- 4201 Oct, Other chronic pain G89.29 [facility] [address] [facility] [place] [id number] Oct, Weakness R53.1 ; Macrocytic anemia D53.9 ; Discolored skin L81.9 ; Other chronic pain G89.29 ; Dysuria R30.0 and Hayes catheter in place Z92.89 [facility] [address], [place] [address] Oct, Other chronic pain G89.29 [facility] [id number] [place] [id number] Sep, [facility] [address], [place] [address] 9[address] Sep, [facility] [address] [id number] Sep, [facility] [id number] [place] [address] [id number] Sep, [facility] [id number] [place] [address] [id number] Sep, Other chronic pain G89.29 [facility] [address], [place] [address] 7[address] Sep, [facility] [address] [id number] [id number] Sep, Other chronic pain G89.29 [facility] [address] [place] [id number] Sep, Chronic urinary tract infection N39.0 ; Other chronic pain G89.29 ; Chronic kidney disease (CKD), unspecified stage N18.9 ; Type 2 diabetes mellitus without complication, unspecified powder mixer insulin use status E11.9 ; Hypothyroidism, unspecified type E03.9 ; Depression, unspecified depression type F32.9 ; Cataract H26.9 ; Obstructive sleep apnea syndrome G47.33 ; Atrial fibrillation, unspecified type I48.91 ; History of femur fracture Z87.81 and [address] catheter in place Z92.89 [facility] [id number] [place] [address] [id number]- 0783 Sep, [facility] [id number] [place] [address] 52138- 5614 Aug, [facility] [id number] [place] [address] 79626- 6745 Aug, Other chronic pain G89.29 [facility] [id number] [place] [address] 50342- 7782 Aug, [facility] [id number] [place] [address] 28314- 7009 Aug, [facility] [id number] [place] [address] [id number] Aug, [facility] [id number] [place] [address] 79745- 2163 Aug, [facility] [id number] [place] [address] 06953- 1094 Aug, Type 2 diabetes mellitus without complication, unspecified usp insulin use status E11.9 [facility] [id number] [place] [address] 72073- 4263 Aug, Other chronic pain G89.29 [facility] [id number] [place] [address] 53231- 1638 Aug, [facility] [address] [id number] [address] 16 Aug, 2017 [facility] [address], [place] [address] 3038 Jul, Other chronic pain G89.29 [facility] [address], [place] [address] 39[address] Jul, [facility] [address] [place] [address] 36210- 3065 Jul, Dark brown urine R82.99 [facility] [address] [place] [address] 45904- 8448 Jul, Dark brown urine R82.99 [facility] [id number] [place] [address] 06345- 2518 Jul, [facility] [id number] [place] [address] 94280- 7569 Jun, Other chronic pain G89.29 [facility] [address], [place] [address] 3220 Jun, Type 2 diabetes mellitus without complication, unspecified usp insulin use status E11.9 [facility] [address] [place] [address] 60629- 5557 May, Candidiasis, intertrigo B37.2 [facility] [address], [place] [address] 1701 May, Other chronic pain G89.29 [facility] [address], [place] [address]- 9511 May, [facility] [id number] [place] [address] 01799- 0714 May, [facility] [address] [place] [address] 45166- 5263 May, Candidiasis, intertrigo B37.2 [facility] [address] [place] [address] 94019- 1333 May, Atrial fibrillation, unspecified type I48.91 [address], [place] [address]- 1307 May, Hypothyroidism, unspecified type E03.9 and Decreased renal function N28.9 [place] [facility] [id number] [place] [address] 04150- 8825 May, Type 2 diabetes mellitus without complication, unspecified powder mixer insulin use status E11.9 [place] [facility] [id number] [place] [address] 69485- 5884 May, Dental examination Z01.20 [place] [id number] [place] [address] 22025- 2347 May, Chronic kidney disease (CKD), unspecified stage N18.9 ; Type 2 diabetes mellitus without complication, unspecified powder mixer insulin use status E11.9 ; Hypothyroidism, unspecified type E03.9 ; Depression, unspecified depression type F32.9 ; Anemia, unspecified type D64.9 and Ulcer L98.499 [place] [id number] [place] [address] 19051- 4828 May, [place] [id number] [place] [address] 80967- 6083 Apr, Other chronic pain G89.29 [address] [facility] [id number] [place] [address] 51315- 3901 Apr, Other chronic pain G89.29 [place] [id number] [place] [address] 40580- 5869 March, [place] [id number] [place] [address] 17411- 9590 March, [place] [id number] [place] [address] 10925- 2651 March, [address] [id number] [place] [address] 93323- 0428 March, Other chronic pain G89.29 [place] [address], [place] [address]- 0913 March, [facility] [id number] [place] [address] 40252- 8637 Feb, [facility] [id number] [place] [address] 20436- 2212 Feb, Type 2 diabetes mellitus without complication, unspecified powder mixer insulin use status E11.9 ; Candidiasis, intertrigo B37.2 ; Decubitus ulcer of left buttock, unstageable L89.320 and Pressure ulcer of contiguous region involving right buttock and hip, unspecified ulcer stage L89.40 [facility] [id number] [place] [address] 87549- 5335 Feb, Atrial fibrillation, unspecified type I48.91 [facility] [id number] [place] [address] 11889- 4386 Feb, [facility] [id number] [place] [address] 41156- 3453 Feb, [facility] [id number] [place] [address] 85609- 2976 Feb, Other chronic pain G89.29 [facility] [id number] [place] [address] 41387- 9371 Jan, Other chronic pain G89.29 [facility] [id number] [place] [address] 66845- 3477 Dec, [facility] [id number] [place] [address] 39729- 5957 Dec, Lethargy R53.83 [facility] [id number] [place] [address] 18654- 9349 17 Dec, 2016 [facility] [id number] [place] [address] 10567- 7335 10 Dec, 2016 Other chronic pain G89.29 [facility] [address] [id number], [place] [address]- 4456 Nov, [facility] [address], [place] [address]- 1857 Nov, [facility] [address], [place] [address]- 4879 Nov, Other chronic pain G89.29 [facility] [address] [place] [address] 48421- 2231 Nov, [facility] [id number] [place] [address] 26369- 0024 Nov, [facility] [id number] [place] [address] 15756- 1908 Nov, [facility] [address] [place] [address] 64936- 2936 Oct, Cough R05 [facility] [id number] [place] [address] 80244- 9641 Oct, Urinary tract infection, site not specified N39.0 [facility] [id number] [place] [address] 59045- 3912 16 Oct, 2016 Other chronic pain G89.29 [facility] [address] [place] [address] 99836- 9169 15 Oct, 2016 Type 2 diabetes mellitus [...] J30.89 ; Nausea R11.0 and Candidiasis B37.9 [facility] [address], [place] [address]- 5239 Oct, [facility] [address], [place] [address]- 1282 Oct, [facility] [id number] [place] [address] 24067- 7505 Oct, [facility] [id number] [place] [address] 93069- 7208 Oct, Chronic kidney disease (CKD), unspecified stage N18.9 [facility] [id number] [place] [address] 76213- 4370 Oct, [facility] [id number] [place] [address] 44960- 1312 Sep, Other chronic pain G89.29 [facility] [id number] [place] [address] 20056- 9435 Sep, Chronic kidney disease (CKD), unspecified stage N18.9 and Senile cataract of right eye, unspecified age-related cataract type H25.9 [facility] [address] [place] [address]- 2820 Sep, [facility] [id number] [place] [address] 21248- 2193 Sep, [facility] [address], [place] [address]- 6170 Sep, [facility] [id number] [place] [address] 80382- 4702 Sep, [facility] [address], [place] [address]- 3440 Sep, [facility] [id number] [place] [address] 41454- 1912 Aug, [facility] [id number] [place] [address] 30369- 3355 Aug, [facility] [id number] [place] [address] 64607- 9120 Aug, [place] [facility] [id number] [place] [address] 35588- 0619 Aug, Encounter to establish care Z76.89 ; [...] and Gastroesophageal reflux disease without esophagitis K21.9 [id number] [place] [address] 00987- 8794 Aug, [id number] [place] [address] 92983- 4023 Aug, Urinary incontinence, unspecified type R32 [id number] [place] [address] 91320- 8771 Aug, [address] [address]- 5910 Jul, [facility] [address] [place] [id number] Jul, Type 2 diabetes mellitus without complication, unspecified powder mixer insulin use status E11.9 ; Chronic kidney [...] E03.9 and Constipation, unspecified constipation type K59.00 [id number] [place] [address] 45143- 0548 19 Jul, 2016 [facility] [address], [place] [address]- 8112 16 Jul, 2016 [facility] [address] [place] [id number] 14 Jul, 2016 Anemia, unspecified type D64.9 ; Acute renal failure, unspecified acute renal failure type N17.9 ; Other chronic pain G89.29 ; Obstructive sleep apnea syndrome G47.33 and Type 2 diabetes mellitus without complication, unspecified powder mixer insulin use status E11.9 [facility] [address], [place] [address]- 5116 Jul, [facility] [address], [place] [address]- 6446 Jul, [facility] [address], [place] [address]- 6610 Jul, [facility] [address], [place] [address]- 9076 Jul, [facility] [address], [place] [address]- 1059 Jul, [facility] [address] [place] [id number] Jun, Other chronic pain G89.29 ; Hayes catheter in place Z92.89 ; Chronic kidney disease (CKD), unspecified stage N18.9 and Blisters of multiple sites R23.8 [facility] [address], [place] [address]- 1352 Jun, [facility] [address], [place] [address]- 7112 Jun, [facility] [address], [place] [address]- 7173 Jun, [facility] [address], [place] [address]- 6261 Jun, [facility] [address], [place] [address]- 2638 Jun, [facility] [id number], [place] [address]- 1610 Jun, [facility] [id number], [place] [address]- 1293 Jun, [facility] [id number], [place] [address]- 3395 Jun, [facility] [address], [place] [address]- 6445 Jun, [facility] [id number], [place] [address]- 8446 Jun, [facility] [id number], [place] [address]- 1435 Jun, [facility] [id number], [place] [address]- 7962 May, [facility] [id number], [place] [address]- 1019 May, [facility] [id number], [place] [address]- 4755 May, Other chronic pain G89.29 [facility] [address] [place] [id number] May, Encounter to establish care Z76.89 ; Type 2 diabetes mellitus without complication, unspecified powder mixer insulin use status E11.9 ; Hypothyroidism, unspecified [...] Assessed REASON FOR VISIT Controlled Med Refill 06/21/2017 PLAN OF CARE VITAL SIGNS MEDICATIONS Medication [...] Acute Kidney Injury 08/05/16 Hospitalization History UTI, Sepsis--[facility] Hospitalization History Chest pain/SOB/A-fib 02/2017 Hospitalization History Chest pain-[facility] 04/13/17 Hospitalization History UTI, respiratory failure, altered mental status-[facility] 09/13/17
--- OUTSIDE RECORDS SUMMARY | 2018-09-17 19:48 | XMS REPORT ---
Author Author LATONYA KIM [facility] Address [address] [place] [address] Care Team Providers Care Reimbursement Rep Name Role Phone LATONYA KIM Unavailable PROBLEMS Type Condition ICD9-CM Code ILU58-TC Code Onset Dates Condition Status SNOMED Code Problem Restless leg syndrome G25.81 Active 80313737 Problem Atrial fibrillation, unspecified type I48.91 Active 85994478 Problem Perennial allergic rhinitis, unspecified allergic rhinitis trigger J30.89 Active 444558384 Problem Primary insomnia F51.01 Active 0550830 Problem Closed fracture of left patella, unspecified fracture morphology, sequela S82.002S Active 68305094 Problem Anxiety F41.9 Active 04963260 Problem Decreased renal function N28.9 Active 40207693 Problem Ulcer L98.499 Active 044651509 Problem Bladder spasms N32.89 Active 507083272 Problem Chronic fatigue R53.82 Active 92948233 Problem Cataract H26.9 Active 999412149 Problem Chronic kidney disease (CKD), unspecified stage N18.9 Active 450199058 Problem Morbid obesity due to excess calories E66.01 Active 034480954 Problem Urinary incontinence, unspecified type R32 Active 993151151 Problem Hypothyroidism, unspecified type E03.9 Active 43750178 Problem Obstructive sleep apnea syndrome G47.33 Active 23849109 Problem Type 2 diabetes mellitus without complication, unspecified senior care insulin use status E11.9 Active 46461950 Problem Gastroesophageal reflux disease without esophagitis K21.9 Active 792594276 Problem Depression, unspecified depression type F32.9 Active 84324428 Problem Other chronic pain G89.29 Active [id number] ALLERGIES No Information ENCOUNTERS Encounter Location Date Diagnosis [facility] [address] [facility] [id number] [place] [address] Feb, Via [facility] [place] [facility] [address] [place] [id number] Feb, Leg swelling M79.89 [facility] [address] [place] [address] 44233- 7478 Feb, Primary insomnia F51.01 Via [facility] [address] [place] [id number] Feb, Fever in other diseases R50.81 and Intermittent left lower quadrant abdominal pain R10.32 [facility] [id number] [place] [address] 68331- 3102 Feb, [facility] [id number] [place] [address] 41209- 5635 Feb, [facility] [id number] [place] [address] 20287- 7104 Feb, Depression, unspecified depression type F32.9 ; Hypothyroidism, unspecified type E03.9 ; Type 2 diabetes mellitus without complication, unspecified senior care insulin use status E11.9 and Anxiety F41.9 [facility] [id number] [place] [address] 91449- 3037 Feb, Other chronic pain G89.29 [facility] [id number] [place] [address] [id number] Jan, Other chronic pain G89.29 [facility] [id number] [place] [address] 00881- 4505 Jan, Bladder spasms N32.89 [facility] [id number] [place] [address] 79336- 9930 Jan, Bladder spasms N32.89 [facility] [id number] [place] [address] 72904- 4316 Dec, Bladder spasms N32.89 [facility] [id number] [place] [address] 70389- 2980 Dec, Depression, unspecified depression type F32.9 [facility] [id number] [place] [address] 60804- 1226 13 Dec, 2017 Via [employer] [place] [facility] [address] [place] [id number] Dec, Hypothyroidism, unspecified type E03.9 ; Depression, unspecified depression type F32.9 ; Other chronic pain G89.29 ; Urinary retention R33.9 and Atrial fibrillation, unspecified type I48.91 [facility] [id number] [place] [address] [id number] Dec, [facility] [id number] [place] [address] [id number] Dec, Other chronic pain G89.29 [facility] [id number] [place] [address] [id number] Nov, [facility] [id number] [place] [address] [id number] Nov, Other chronic pain G89.29 [facility] [address] [place] [address] 71561- 0906 Nov, Other chronic pain G89.29 [facility] [address] [place] [address] 18531- 9720 Nov, [facility] [id number] [place] [address] [phone]- 5502 Nov, [facility] [address] [place] [address] [phone]- 2775 Nov, Other chronic pain G89.29 [facility] [address] [place] [address] 10140- 5826 Nov, Other chronic pain G89.29 [facility] [address] [place] [address] 21154- 0318 Oct, [facility] [address] [place] [address] [id number]- 4262 Oct, Other chronic pain G89.29 [facility] [employer] [facility] [address] [place] [id number] Oct, Weakness R53.1 ; Macrocytic anemia D53.9 ; Discolored skin L81.9 ; Other chronic pain G89.29 ; Dysuria R30.0 and Hayes catheter in place Z92.89 [facility] [address] [place] [address] 97669- 2254 07 Oct, 2017 Other chronic pain G89.29 [facility] [id number] [place] [address] [id number] Sep, [facility] [id number] [place] [address] 07385- 7742 Sep, [facility] [id number] [place] [address] 28188- 2839 Sep, [facility] [id number] [place] [address] [id number] Sep, [facility] [id number] [place] [address] [id number] Sep, Other chronic pain G89.29 [facility] [id number] [place] [address] 85012- 6246 Sep, [facility] [id number] [place] [address] [id number] Sep, Other chronic pain G89.29 [facility] [address] [facility] [address] [address] [place] [id number] Sep, Chronic urinary tract infection N39.0 ; [...] [facility] [address] [address] 3[address] Sep, [facility] [address] [place] [address] 86477- 3910 Aug, [facility] [place] [facility] [address] [id number], [place] [address] 4386 Aug, Other chronic pain G89.29 [facility] [place] [facility] [address] [id number], [place] [address] 7818 Aug, [facility] [place] [facility] [address] [id number], [place] [address] 3[address] Aug, [facility] [place] [facility] [id number] [place] [address] [id number] Aug, [facility] [address] [place] [address] 57110- 6944 Aug, [facility] [place] [facility] [address] [place] [address] 35399- 1711 Aug, 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 complication, 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 [facility] [id number] [place] [address] 30568- 8915 Aug, Other chronic pain G89.29 [facility] [address] [place] [address] 46146- 8953 18 Aug, 2017 [facility] [place] [facility] [address] [place] [address] 87877- 5578 16 Aug, 2017 [facility] [address] [address]- 6047 22 Jul, 2017 Other chronic pain G89.29 [facility] [address], [place] [address]- 7787 19 Jul, 2017 [facility] [address], [place] [address]- 9439 19 Jul, 2016 Dark brown urine R82.99 [facility] [address] [address]- 6187 19 Jul, 2017 Dark brown urine R82.99 [facility] [address], [place] [address]- 4838 Jul, [facility] [address] [place] [address] 90721- 4290 Jun, Other chronic pain G89.29 [facility] [id number] [place] [address] 35983- 3757 Jun, Type 2 diabetes mellitus without complication, unspecified senior care insulin use status E11.9 [facility] [id number] [place] [address] 66314- 4113 May, Candidiasis, intertrigo B37.2 [facility] [id number] [place] [address] 21047- 2635 May, Other chronic pain G89.29 [facility] [id number] [place] [address] 03583- 3132 May, [facility] [id number] [place] [address] 78135- 6771 May, [facility] [id number] [place] [address] 46913- 1362 May, Candidiasis, intertrigo B37.2 [facility] [id number] [place] [address] 87891- 4463 May, Atrial fibrillation, unspecified type I48.91 [facility] [id number] [place] [address] 73931- 2541 May, Hypothyroidism, unspecified type E03.9 and Decreased renal function N28.9 [facility] [id number] [place] [address] 88833- 6251 May, Type 2 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 without complication, 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 [facility] [id number] [place] [address] 47798- 6687 May, Dental examination Z01.20 [facility] [id number] [place] [address] 34461- 4525 May, Chronic kidney disease (CKD), unspecified stage N18.9 ; Type 2 diabetes mellitus without complication, 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 ; Hypothyroidism, unspecified type E03.9 ; Depression, unspecified depression type F32.9 ; Anemia, unspecified type D64.9 and Ulcer L98.499 [facility] [address], [place] [address]- 6010 May, [facility] [id number] [place] [address] 05196- 3262 Apr, Other chronic pain G89.29 [facility] [id number] [place] [address] 21798- 8501 Apr, Other chronic pain G89.29 [facility] [id number] [place] [address] 44282- 9946 March, [facility] [id number] [place] [address] 70887- 1564 March, [facility] [id number] [place] [address] 79238- 8330 March, [facility] [id number] [place] [address] 52231- 9658 March, Other chronic pain G89.29 [facility] [id number] [place] [address] 54978- 8599 March, [facility] [address] [place] [address] 74264- 5831 Feb, [facility] [id number] [place] [address] 01143- 1436 Feb, Type 2 diabetes mellitus without complication, 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 ; Candidiasis, intertrigo B37.2 ; Decubitus ulcer of left buttock, unstageable L89.320 and Pressure ulcer of contiguous region involving right buttock and hip, unspecified ulcer stage L89.40 [facility] [address] [address]- 8154 Feb, Atrial fibrillation, unspecified type I48.91 [facility] [address] [id number] [address]- 2834 Feb, [facility] [address] [id number] [address]- 3596 Feb, [facility] [address] [id number], [place] [address]- 8719 Feb, Other chronic pain G89.29 [facility] [address] [id number], [place] [address]- 8495 Jan, Other chronic pain G89.29 [facility] [address] [id number], [place] [address]- 9316 Dec, [facility] [address] [id number], [place] [address]- 5748 Dec, Lethargy R53.83 [facility] [address], [place] [address]- 5510 17 Dec, 2016 [facility] [address] [id number], [place] [address]- 5291 Dec, Other chronic pain G89.29 [facility] [address] [id number], [place] [address]- 6305 Nov, [facility] [address] [id number], [place] [address]- 7622 Nov, [facility] [address] [id number], [place] [address]- 5591 Nov, Other chronic pain G89.29 [facility] [address] [id number], [place] [address]- 3726 Nov, [facility] [address] [id number], [place] [address]- 1188 Nov, [facility] [address], [place] [address]- 3990 Nov, [facility] [id number] [place] [address] 37523- 0758 Oct, Cough R05 [facility] [facility] [id number] [place] [address] 94288- 8415 Oct, Urinary tract infection, site not specified N39.0 [facility] [id number] [place] [address] 28913- 5596 16 Oct, 2016 Other chronic pain G89.29 [facility] [id number] [place] [address] 47365- 8447 15 Oct, 2016 Type 2 diabetes mellitus without complication, unspecified senior care insulin use status E11.9 ; Other [...] J30.89 ; Nausea R11.0 and Candidiasis B37.9 [facility] [id number] [place] [address] 51241- 1387 Oct, [facility] [address] [place] [address] 94850- 5830 Oct, [facility] [id number] [place] [address] 48195- 3470 Oct, [facility] [id number] [place] [address] 62591- 6473 Oct, Chronic kidney disease (CKD), unspecified stage N18.9 [facility] [id number] [place] [address] 96924- 6307 Oct, [facility] [id number] [place] [address] 01582- 3444 Sep, Other chronic pain G89.29 [facility] [address], [place] [address]- 5747 Sep, Chronic kidney disease (CKD), unspecified stage N18.9 and Senile cataract of right eye, unspecified age-related cataract type H25.9 [facility] [address], [place] [address]- 7649 Sep, [facility] [address] [id number], [place] [address]- 4343 Sep, [facility] [address], [place] [address]- 9470 Sep, [facility] [id number] [place] [address] 36877- 1604 Sep, [facility] [id number], [place] [address]- 4686 Sep, [facility] [address] [id number] [address]- 5960 Aug, [facility] [address], [place] [address]- 5886 Aug, [facility] [address], [place] [address]- 4020 Aug, [facility] [address], [place] [address]- 3020 Aug, Encounter to establish care Z76.89 ; [...] [facility] [address], [place] [address]- 2281 Aug, [facility] [facility] [address], [place] [address]- 9342 Aug, Urinary incontinence, unspecified type R32 [facility] [facility] [address] [place] [address] 70943- 8102 Aug, [facility] [id number] [place] [address] 41905- 8148 Jul, [address] [id number] Jul, Type 2 diabetes mellitus without complication, [...] E03.9 and Constipation, unspecified constipation type K59.00 [id number] [place] [address] 96701- 2498 Jul, [id number] [place] [address] 58293- 5114 16 Jul, [address] [id number] Jul, Anemia, unspecified type D64.9 ; Acute renal failure, unspecified acute renal failure type N17.9 ; Other chronic pain G89.29 ; Obstructive sleep apnea syndrome G47.33 and Type 2 diabetes mellitus without complication, unspecified senior care insulin use status E11.9 [facility] [facility] [address] [place] [address] 14237- 8333 13 Jul, 2016 [id number] [place] [address] 75719- 7552 Jul, [address] [id number] [place] [address]- 8380 Jul, [facility] [id number] [place] [address], [place] [address]- 1633 Jul, [facility] [address] [id number] [place] [address]- 2328 Jul, [facility] [address] [place] [id number] Jun, Other chronic pain G89.29 ; Hayes catheter in place Z92.89 ; Chronic kidney disease (CKD), unspecified stage N18.9 and Blisters of multiple sites R23.8 [facility] [id number] [place] [address], [place] [address]- 7521 Jun, [facility] [address] [id number] [place] [address]- 6204 Jun, [facility] [id number] [place] [address] 07900- 0226 Jun, [facility] [address] [id number] [place] [address]- 7527 Jun, [facility] [id number] [place] [address], [place] [address]- 4492 Jun, [facility] [address] [id number] [place] [address]- 5002 Jun, [facility] [address] [id number], [place] [address]- 2193 Jun, [facility] [address] [id number] [place] [address]- 8277 Jun, [facility] [address] [id number] [place] [address]- 9687 Jun, [facility] [address] [id number], [place] [address]- 6064 Jun, [facility] [address] [id number], [place] [address]- 8454 Jun, [facility] [address] [id number] [place] [address]- 9165 May, [facility] [address] [id number], [place] [address]- 6409 May, [facility] [address] [id number], [place] [address]- 9735 May, Other chronic pain G89.29 [facility] [address] [place] [id number] May, Encounter to establish care Z76.89 ; [...] Assessed REASON FOR VISIT Controlled Med Refill 08/16/2017 PLAN OF CARE VITAL SIGNS MEDICATIONS Medication Instructions Dosage Frequency Start Date End Date Duration Status Oxycodone-Acetaminophen 10-325 MG Orally 4 times a day 1 tablet as needed 6h Jul, 28 days Active RESULTS No Results PROCEDURES [...] Sepsis--[facility] Hospitalization History Chest pain/SOB/A-[facility] 02/2017 Hospitalization History Chest pain-[facility] 04/13/17 Hospitalization History UTI, respiratory failure, altered mental status-[facility] 09/13/17
--- OUTSIDE RECORDS SUMMARY | 2018-09-17 19:49 | XMS REPORT ---
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 Name Role Phone LATOYNA KIM Unavailable PROBLEMS Type Condition ICD9-CM Code LPI72-WS Code Onset Dates Condition Status SNOMED Code Problem Cataract H26.9 Active 871855850 Problem Restless leg syndrome G25.81 Active 07090559 Problem Other chronic pain G89.29 Active 30806292 Problem Bladder spasms N32.89 Active 821942779 Problem Chronic fatigue R53.82 Active 32991985 Problem Atrial fibrillation, unspecified type I48.91 Active 86908320 Problem Perennial allergic rhinitis, unspecified allergic rhinitis trigger J30.89 Active 308296507 Problem Decreased renal function N28.9 Active 84111829 Problem Ulcer L98.499 Active 817069874 Problem Morbid obesity due to excess calories E66.01 Active 123718464 Problem Urinary incontinence, unspecified type R32 Active 282471733 Problem Closed fracture of left patella, unspecified fracture morphology, sequela S82.002S Active 71311511 Problem Depression, unspecified depression type F32.9 Active 22946516 Problem Hypothyroidism, unspecified type E03.9 Active 95621635 Problem Chronic kidney disease (CKD), unspecified stage N18.9 Active 683120132 Problem Obstructive sleep apnea syndrome G47.33 Active 20939410 Problem Type 2 diabetes mellitus without complication, unspecified oysterman insulin use status E11.9 Active 06708071 Problem Gastroesophageal reflux disease without esophagitis K21.9 Active 451549481 ALLERGIES No Information ENCOUNTERS Encounter Location Date Diagnosis [facility] [address] [id number] [id number] Jan, Other chronic pain G89.29 [facility] [address] [facility] [id number] [address] Jan, Bladder spasms N32.89 [facility] [address], [place] [address] Jan, Bladder spasms N32.89 [facility] [address], [place] [address] Dec, Bladder spasms N32.89 [facility] [address], [place] [address] Dec, Depression, unspecified depression type F32.9 [facility] [address], [place] [address] Dec, [facility] [address] [place] [id number] Dec, Hypothyroidism, unspecified type E03.9 ; Depression, unspecified depression type F32.9 ; Other chronic pain G89.29 ; Urinary retention R33.9 and Atrial fibrillation, unspecified type I48.91 [facility] [address] [id number] [id number] Dec, [facility] [id number] [place] [id number] Dec, Other chronic pain G89.29 [facility] [address] [id number] [id number] Nov, [facility] [address] [id number] [id number] Nov, Other chronic pain G89.29 [facility] [id number] [address] Nov, Other chronic pain G89.29 [facility] [address], [place] [address] Nov, [facility] [address] [address] Nov, [facility] [address], [place] [address] 8467 Nov, Other chronic pain G89.29 [facility] [address] [facility] [id number], [place] [address] Nov, Other chronic pain G89.29 [facility] [address] [facility] [id number], [place] [address] Oct, [facility] [address] [id number], [place] [address] Oct, Other chronic pain G89.29 [facility] [address] [place] [id number] Oct, Weakness R53.1 ; Macrocytic anemia D53.9 ; Discolored skin L81.9 ; Other chronic pain G89.29 ; Dysuria R30.0 and Hayes catheter in place Z92.89 [facility] [address] [id number], [place] [address] Oct, Other chronic pain G89.29 [facility] [id number] [place] [id number] Sep, [facility] [address], [place] [address] 3047 Sep, [facility] [address], [place] [address] Sep, [facility] [address] [id number] [id number] Sep, [facility] [id number] [place] [address] [id number] Sep, Other chronic pain G89.29 [facility] [address] [facility] [id number], [place] [address] Sep, [facility] [id number] [place] [address] [id number] Sep, Other chronic pain G89.29 [facility] [address] [place] [id number] Sep, Chronic urinary tract infection N39.0 ; [...] Z87.81 and Hayes catheter in place Z92.89 [facility] [id number] [place] [address] 21351- 5087 Sep, [facility] [id number] [place] [address] 07340- 9148 Aug, [facility] [address] [address] Aug, Other chronic pain G89.29 [facility] [id number] [place] [address] 29300- 6304 Aug, [facility] [id number] [place] [address] 40056- 5409 Aug, [facility] [address] [id number] Aug, [facility] [id number] [place] [address] 18509- 5067 Aug, [facility] [id number] [place] [address] 47871- 7264 Aug, Type 2 diabetes mellitus without complication, unspecified oysterman insulin use status E11.9 [facility] [id number] [place] [address] 79632- 0179 Aug, Other chronic pain G89.29 [facility] [address] [address]- 2354 Aug, [facility] [id number] [place] [address] 82550- 1011 Aug, [facility] [address] [address]657 Jul, Other chronic pain G89.29 [facility] [address], [place] [address] Jul, [facility] [address] [place] [address] 41063- 6282 Jul, Dark brown urine R82.99 [facility] [address] [place] [address] 09264- 9059 Jul, Dark brown urine R82.99 [facility] [id number] [place] [address] 70104- 7110 14 Jul, 2017 [facility] [id number] [place] [address] 29349- 0026 Jun, Other chronic pain G89.29 [facility] [address] [place] [address] 67372- 1550 Jun, Type 2 diabetes mellitus without complication, unspecified residential insulin use status E11.9 [facility] [id number] [place] [address] 80472- 2480 May, Candidiasis, intertrigo B37.2 [place] [id number] [place] [address] 60252- 1551 May, Other chronic pain G89.29 [facility] [address] [place] [address] 36173- 7700 May, [facility] [address] [place] [address] 34554- 2985 May, [facility] [address] [place] [address] 97707- 8780 May, Candidiasis, intertrigo B37.2 [facility] [id number] [place] [address] 12090- 2548 May, Atrial fibrillation, unspecified type I48.91 [facility] [id number] [place] [address] 47528- 5106 May, Hypothyroidism, unspecified type E03.9 and Decreased renal function N28.9 [facility] [id number] [place] [address] 45237- 2565 May, Type 2 diabetes mellitus without complication, unspecified oysterman insulin use status E11.9 [facility] [id number] [place] [address] 28254- 5684 May, Dental examination Z01.20 [facility] [id number] [place] [address] 94540- 6314 May, Chronic kidney disease (CKD), unspecified stage N18.9 ; Type 2 diabetes mellitus without complication, unspecified oysterman insulin use status E11.9 ; Hypothyroidism, unspecified type E03.9 ; Depression, unspecified depression type F32.9 ; Anemia, unspecified type D64.9 and Ulcer L98.499 [place] [id number] [place] [address] 06614- 3360 May, [facility] [id number] [place] [address] 00888- 4123 Apr, Other chronic pain G89.29 [place] [id number] [place] [address] 51724- 4362 Apr, Other chronic pain G89.29 [address] [address] [id number], [place] [address] 0086 March, [facility] [id number] [place] [address] 44656- 5903 March, [facility] [id number] [place] [address] 50773- 3799 March, [facility] [id number] [place] [address] 22656- 7529 March, Other chronic pain G89.29 [facility] [id number] [place] [address] 84548- 2214 March, [address] [address] [place] [address] 6413 Feb, [facility] [id number] [place] [address] 40200- 0490 Feb, Type 2 diabetes mellitus without complication, unspecified oysterman insulin use status E11.9 ; Candidiasis, intertrigo B37.2 ; Decubitus ulcer of left buttock, unstageable L89.320 and Pressure ulcer of contiguous region involving right buttock and hip, unspecified ulcer stage L89.40 [facility] [id number] [place] [address] 94505- 4004 Feb, Atrial fibrillation, unspecified type I48.91 [facility] [id number] [place] [address] 78591- 5653 Feb, [facility] [id number] [place] [address] 30596- 1446 Feb, [facility] [id number] [place] [address] 39101- 1923 Feb, Other chronic pain G89.29 [facility] [id number] [place] [address] 63300- 0559 Jan, Other chronic pain G89.29 [facility] [id number] [place] [address] 37099- 2800 Dec, [facility] [address] [place] [address] 78686- 3790 Dec, Lethargy R53.83 [facility] [address] [place] [address] 62610- 0931 Dec, [facility] [id number] [place] [address] 07613- 9299 10 Dec, 2016 Other chronic pain G89.29 [facility] [id number] [place] [address] 95103- 1530 Nov, [facility] [id number] [place] [address] 76228- 6752 Nov, [facility] [address], [place] [address]- 1555 Nov, Other chronic pain G89.29 [facility] [address], [place] [address]- 4607 Nov, [facility] [address], [place] [address]- 9377 Nov, [facility] [address] [place] [address] 70011- 1765 Nov, [facility] [address] [place] [address] 05994- 6186 Oct, Cough R05 [address] [address] [place] [address] 50343- 1494 Oct, Urinary tract infection, site not specified N39.0 [place] [address] [place] [address] 08455- 7871 Oct, Other chronic pain G89.29 [address] [address] [address], [place] [address]- 5360 Oct, Type 2 diabetes mellitus without complication, [...] J30.89 ; Nausea R11.0 and Candidiasis B37.9 [facility] [address], [place] [address]- 9716 Oct, [place] [address], [place] [address]- 1260 Oct, [facility] [address], [place] [address]- 8032 Oct, [facility] [id number] [place] [address] 77619- 0508 Oct, Chronic kidney disease (CKD), unspecified stage N18.9 [facility] [id number] [place] [address] 64226- 7753 Oct, [facility] [id number] [place] [address] 97668- 2910 Sep, Other chronic pain G89.29 [facility] [id number] [place] [address] 22636- 7675 Sep, Chronic kidney disease (CKD), unspecified stage N18.9 and Senile cataract of right eye, unspecified age-related cataract type H25.9 [facility] [id number] [place] [address] 84703- 7618 Sep, [facility] [id number] [place] [address] 43403- 3256 Sep, [facility] [id number] [place] [address] 02260- 3606 Sep, [facility] [id number] [place] [address] 70393- 2876 Sep, [facility] [id number] [place] [address] 46322- 9769 Sep, [facility] [address] [place] [address] 19616- 3928 Aug, [facility] [id number] [place] [address], [place]- 3381 Aug, [facility] [address] [id number], [place] [address]- 9527 Aug, [facility] [id number] [place] [address] 76138- 2849 Aug, Encounter to establish care Z76.89 ; [...] and Gastroesophageal reflux disease without esophagitis K21.9 [place] [id number] [place] [address] 75573- 6793 Aug, [place] [address] 71978- 8096 Aug, Urinary incontinence, unspecified type R32 [id number] [place] [address] 58624- 8883 Aug, [place] [id number] [place] [address] 53874- 6914 Jul, [facility] [address] [place] [id number] Jul, Type 2 diabetes mellitus without complication, [...] E03.9 and Constipation, unspecified constipation type K59.00 [id number] [place] [address] 85627- 2520 Jul, [id number] [place] [address] 94138- 8131 Jul, [facility] [address] [place] [id number] Jul, Anemia, unspecified type D64.9 ; Acute renal failure, unspecified acute renal failure type N17.9 ; Other chronic pain G89.29 ; Obstructive sleep apnea syndrome G47.33 and Type 2 diabetes mellitus without complication, unspecified oysterman insulin use status E11.9 [facility] [address] [place] [address] 79882- 9234 Jul, [facility] [id number] [place] [address] 75912- 3411 Jul, [facility] [id number] [place] [address] 90896- 2643 Jul, [facility] [id number] [place] [address] 42160- 0912 Jul, [facility] [id number] [place] [address] 04719- 6107 Jul, [facility] [address] [place] [id number] Jun, Other chronic pain G89.29 ; Hayes catheter in place Z92.89 ; Chronic kidney disease (CKD), unspecified stage N18.9 and Blisters of multiple sites R23.8 [facility] [address], [place] [address]- 4798 Jun, [facility] [address], [place] [address]- 7895 Jun, [facility] [address], [place] [address]- 2384 Jun, [facility] [id number] [place] [address] 30060- 8725 Jun, [facility] [address], [place] [address]- 5230 Jun, [facility] [address] [place] [address] 76930- 3912 Jun, [facility] [id number], [place] [address]- 1581 Jun, [facility] [id number], [place] [address]- 3144 Jun, [facility] [id number], [place] [address]- 7891 Jun, [facility] [id number], [place] [address]- 8597 Jun, [facility] [id number], [place] [address]- 9048 Jun, [facility] [id number], [place] [address]- 7051 May, [facility] [id number], [place] [address]- 3772 May, [facility] [id number], [place] [address]- 9724 May, Other chronic pain G89.29 [facility] [address] [place] [id number] May, Encounter to establish care Z76.89 ; [...] Start Date End Date Duration Status Nystatin 051954 UNIT/GM Externally Twice a day 1 application to affected area 12h Feb, 30 days Active RESULTS No Results PROCEDURES [...] Acute Kidney Injury 08/05/16 Hospitalization History UTI, Sepsis--[facility] Hospitalization History Chest pain/SOB/A-fib 02/2017 Hospitalization History Chest pain-[facility] 04/13/17 Hospitalization History UTI, respiratory failure, altered mental status-[facility] 09/13/17
--- OUTSIDE RECORDS SUMMARY | 2018-09-17 19:49 | XMS REPORT ---
Author Author LATONYA KIM Organization [facility] Address [address] [place] [address] Care Team Providers Care Assistant Branch Operations Manager Name Role Phone LATONYA KIM Unavailable PROBLEMS Type Condition ICD9-CM Code STZ27-ZC Code Onset Dates Condition Status SNOMED Code Problem Atrial fibrillation, unspecified type I48.91 Active 75569558 Problem Decreased renal function N28.9 Active 14163986 Problem Ulcer L98.499 Active 409546715 Problem Venous stasis dermatitis of both lower extremities I87.2 Active 12786573 Problem Urinary incontinence, unspecified type R32 Active 155509247 Problem Stage 4 chronic kidney disease N18.4 Active 994621474 Problem Morbid obesity due to excess calories E66.01 Active 522870476 Problem Closed fracture of left patella, unspecified fracture morphology, sequela S82.002S Active 39796953 Problem Bladder spasms N32.89 Active 136623408 Problem Chronic fatigue R53.82 Active 58921512 Problem Primary insomnia F51.01 Active 3819826 Problem Anxiety F41.9 Active 37364241 Problem Type 2 diabetes mellitus without complication, unspecified computer terminal operator insulin use status E11.9 Active 36226914 Problem Depression, unspecified depression type F32.9 Active 07382436 Problem Cataract H26.9 Active 733257184 Problem Chronic kidney disease (CKD), unspecified stage N18.9 Active 721200576 Problem Gastroesophageal reflux disease without esophagitis K21.9 Active 784401982 Problem Other chronic pain G89.29 Active 48324847 Problem Hypothyroidism, unspecified type E03.9 Active 60637615 Problem Restless leg syndrome G25.81 Active 30461429 Problem Obstructive sleep apnea syndrome G47.33 Active 03660283 Problem Perennial allergic rhinitis, unspecified allergic rhinitis trigger J30.89 Active 430163539 ALLERGIES No Information ENCOUNTERS Encounter Location Date Diagnosis [facility] [address] [facility] [id number] [address] Apr, Primary insomnia F51.01 [place] [address], [place] [address] Apr, [place] [address] [place] [id number] [place] [address] 62803- 5231 March, Other chronic pain G89.29 [facility] [address] [place] [id number] March, Arthralgia, unspecified joint M25.50 ; Abnormal urine sediment R82.90 ; Venous stasis dermatitis of both lower extremities I87.2 ; Stage 4 chronic kidney disease N18.4 and Cataract of right eye, unspecified cataract type H26.9 [place] [address] [place] [id number] [place] [address] 68542- 0743 March, Primary insomnia F51.01 [facility] [address] [place] [id number] March, Cervicalgia M54.2 ; Acute pain of right shoulder M25.511 and Pain of left femur M89.8X5 [place] [address] [place] [id number] [place] [address] 06884- 4763 March, [place] [address] [place] [id number] [place] [address] 52256- 2814 March, Other chronic pain G89.29 [place] [address] [place] [id number] [place] [address] 04728- 9164 Feb, Via [facility] [address] [place] [id number] Feb, Leg swelling M79.89 [place] [address], [place] [address] Feb, Primary insomnia F51.01 [facility] [address] [place] [id number] Feb, Fever in other diseases R50.81 and Intermittent left lower quadrant abdominal pain R10.32 [place] [id number] [place] [address] 33513- 5820 Feb, [place] [address], [place] [address] 9999 Feb, [place] [address] [place] [id number] [place] [address] 88274- 4752 Feb, Depression, unspecified depression type F32.9 ; Hypothyroidism, unspecified type E03.9 ; Type 2 diabetes mellitus without complication, unspecified computer terminal operator insulin use status E11.9 and Anxiety F41.9 [place] [address] [place] [id number] [place] [address] 40902- 7343 Feb, Other chronic pain G89.29 [place] [address] [id number] Jan, Other chronic pain G89.29 [place] [address] [place] [id number] [place] [address] 98801- 5732 Jan, Bladder spasms N32.89 [place] [address] [place] [id number] [place] [address] 23249- 9139 Jan, Bladder spasms N32.89 [place] [address] [place] [id number] [place] [address] 97188- 5669 Dec, Bladder spasms N32.89 [place] [id number] [place] [address] 39073- 4242 Dec, Depression, unspecified depression type F32.9 [place] [id number] [place] [address] 00662- 4182 Dec, Via [facility] [address] [place] [id number] Dec, Hypothyroidism, unspecified type E03.9 ; Depression, unspecified depression type F32.9 ; Other chronic pain G89.29 ; Urinary retention R33.9 and Atrial fibrillation, unspecified type I48.91 [place] [address] [place] [id number] [place] [address] [id number] Dec, [place] [address] [id number] Dec, Other chronic pain G89.29 [facility] [address] [place] [id number] [place] [id number] Nov, [facility] [address] [place] [id number] [place] [address] [id number] Nov, Other chronic pain G89.29 [facility] [id number] [place] [address] 59706- 7174 Nov, Other chronic pain G89.29 [facility] [address] [place] [address] 56745- 5823 Nov, [facility] [address] [place] [id number] [place] [address] 34863- 2406 Nov, [facility] [id number] [place] [address] [id number]- 0581 Nov, Other chronic pain G89.29 [facility] [address] [place] [address] 63868- 7028 Nov, Other chronic pain G89.29 [facility] [address] [place] [address] 48672- 9477 Oct, [facility] [address] [place] [address] 07197849- 3802 Oct, Other chronic pain G89.29 [facility] [address] [place] [id number] Oct, Weakness R53.1 ; Macrocytic anemia D53.9 ; Discolored skin L81.9 ; Other chronic pain G89.29 ; Dysuria R30.0 and Hayes catheter in place Z92.89 [facility] [address] [place] [address] 43547- 8066 Oct, Other chronic pain G89.29 [facility] [address] [place] [id number] [place] [address] [id number] Sep, [facility] [address], [place] [address] 3670 Sep, [facility] [address], [place] [address] 9784 Sep, [facility] [id number] [id number] Sep, [facility] [id number] [id number] Sep, Other chronic pain G89.29 [facility] [address] [address] Sep, [facility] [address] [place] [id number] [place] [address] [id number] Sep, Other chronic pain G89.29 [facility] [address] [place] [id number] Sep, Chronic urinary tract infection N39.0 ; [...] Hayes catheter in place Z92.89 [facility] [address], [place] [address] 4037 Sep, [facility] [address], [place] [address] Aug, [facility] [address] [place] [id number] [address] 8642 Aug, Other chronic pain G89.29 [facility] [address], [place] [address] 5670 Aug, [facility] [address] [place] [id number], [place] [address] 0829 Aug, [facility] [address] [place] [address] [id number] [id number] 26 Aug, 2017 [facility] [address], [place] [address] 2546 23 Aug, 2017 [facility] [address], [place] [address] 2546 Aug, Type 2 diabetes mellitus without complication, unspecified computer terminal operator insulin use status E11.9 [facility] [address], [place] [address] 2549 19 Aug, 2017 Other chronic pain G89.29 [facility] [address], [place] [address] 2546 18 Aug, 2017 [facility] [id number] [place] [address] 51107 2546 16 Aug, 2017 [facility] [address] [place] [address] 77572- 6097 22 Jul, 2017 Other chronic pain G89.29 [facility] [address], [place] [address] 2546 19 Jul, 2017 [facility] [address] [place] [address] 85740 2546 19 Jul, 2017 Dark brown urine R82.99 [facility] [address], [place] [address] 2546 19 Jul, 2017 Dark brown urine R82.99 [facility] [address], [place] [address] 2546 14 Jul, 2017 [facility] [address] [place] [id number], [place] [address] 2546 Jun, Other chronic pain G89.29 [facility] [address], [place] [address] 2546 10 Jun, 2017 Type 2 diabetes mellitus without complication, unspecified computer terminal operator insulin use status E11.9 [facility] [address], [place] [address]- 1592 May, Candidiasis, intertrigo B37.2 [place] [address] [place] [id number] [place] [address] 20935- 9791 May, Other chronic pain G89.29 [place] [address] [place] [id number] [place] [address] 46163- 0370 May, [place] [address] 79850- 9416 May, [place] [address] [place] [id number] [place] [address] 62543- 1107 May, Candidiasis, intertrigo B37.2 [place] [address] 55623- 6963 May, Atrial fibrillation, unspecified type I48.91 [place] [id number] [place] [address] 34433- 7178 May, Hypothyroidism, unspecified type E03.9 and Decreased renal function N28.9 [place] [address] [place] [id number] [place] [address] 71724- 8887 May, Type 2 diabetes mellitus without complication, unspecified computer terminal operator insulin use status E11.9 [place] [address] [place] [id number] [place] [address] 38811- 0217 May, Dental examination Z01.20 [place] [id number] [place] [address] 28111- 0323 May, Chronic kidney disease (CKD), unspecified stage N18.9 ; Type 2 diabetes mellitus without complication, unspecified care home insulin use status E11.9 ; Hypothyroidism, unspecified type E03.9 ; Depression, unspecified depression type F32.9 ; Anemia, unspecified type D64.9 and Ulcer L98.499 [place] [address] [place] [id number] [place] [address] 17737- 7354 May, [place] [address] [place] [id number] [place] [address] 99170- 7231 Apr, Other chronic pain G89.29 [facility] [address], [place] [address]- 7741 Apr, Other chronic pain G89.29 [facility] [address], [place] [address]- 8302 March, [facility] [address], [place] [address]- 0360 March, [facility] [address] [place] [address], [place] [address]- 9324 March, [facility] [address] [place] [id number] [place] [address] 45108- 6673 March, Other chronic pain G89.29 [facility] [address], [place] [address]- 6128 March, [facility] [address] [place] [id number] [place] [address] 36227- 6505 Feb, [facility] [address], [place] [address]- 5968 Feb, Type 2 diabetes mellitus without complication, unspecified computer terminal operator insulin use status E11.9 ; Candidiasis, intertrigo B37.2 ; Decubitus ulcer of left buttock, unstageable L89.320 and Pressure ulcer of contiguous region involving right buttock and hip, unspecified ulcer stage L89.40 [facility] [address], [place] [address]- 1708 Feb, Atrial fibrillation, unspecified type I48.91 [facility] [address], [place] [address]- 3645 Feb, [facility] [address], [place] [address]- 7777 Feb, [facility] [address], [place] [address]- 3994 Feb, Other chronic pain G89.29 [facility] [address] [place] [address]- 6167 10 Jan, 2017 Other chronic pain G89.29 [facility] [address], [place] [address]- 5936 Dec, [facility] [address], [place] [address]- 0506 Dec, Lethargy R53.83 [facility] [address], [place] [address] 2546 17 Dec, 2016 [facility] [address], [place] [address] 2542 Dec, Other chronic pain G89.29 [facility] [address], [place] [address]- 0403 Nov, [facility] [address], [place] [address]- 3079 Nov, [facility] [address], [place] [address]- 7958 Nov, Other chronic pain G89.29 [facility] [address], [place] [address]- 3183 Nov, [facility] [address], [place] [address]- 7651 Nov, [facility] [address], [place] [address]- 6447 Nov, [facility] [address], [place] [address]- 2547 Oct, Cough R05 [facility] [address], [place] [address]- 2216 Oct, Urinary tract infection, site not specified N39.0 [facility] [address], [place] [address]- 1584 Oct, Other chronic pain G89.29 [facility] [address] [place] [id number] [place] [address] 72036- 7092 15 Oct, 2016 Type 2 diabetes mellitus without complication, unspecified computer terminal operator insulin use status E11.9 [...] J30.89 ; Nausea R11.0 and Candidiasis B37.9 [place] [address] [place] [id number] [place] [address] 62691- 6952 Oct, [place] [address] 76145- 1383 Oct, [place] [address] 54984- 8022 Oct, [place] [address] 18227- 1177 Oct, Chronic kidney disease (CKD), unspecified stage N18.9 [place] [address] [place] [id number] [place] [address] 29209- 2330 Oct, [place] [address] [place] [id number] [place] [address] 79565- 6620 Sep, Other chronic pain G89.29 [place] [address] [place] [id number] [place] [address] 15184- 5475 Sep, Chronic kidney disease (CKD), unspecified stage N18.9 and Senile cataract of right eye, unspecified age-related cataract type H25.9 [place] [address] [place] [id number] [place] [address] 15631- 4743 Sep, [place] [address] 10364- 1362 Sep, [facility] [address] [place] [id number], [place] [address]- 2877 Sep, [facility] [address], [place] [address]- 9129 Sep, [facility] [address] [place] [id number] 4288 Sep, [facility] [address], [place] [address]- 4831 Aug, [facility] [address], [place] [address]- 6301 Aug, [facility] [address] [place] [address] 39166- 8124 24 Aug, 2016 [facility] [address], [place] [address]- 4025 18 Aug, 2016 Encounter to establish care [...] and Gastroesophageal reflux disease without esophagitis K21.9 [facility] [address] [place] [id number], [place] [address]- 5171 14 Aug, 2016 [facility] [address] [place] [id number], [place] [address]- 0916 Aug, Urinary incontinence, unspecified type R32 [facility] [address] [place] [id number], [place] [address]- 1476 Aug, [facility] [address] [place] [id number], [place] [address]- 8795 Jul, [facility] [id number] Jul, Type 2 diabetes mellitus without complication, [...] E03.9 and Constipation, unspecified constipation type K59.00 [place] [id number] [place] [address] 34388- 2422 Jul, [place] [address] [place] [id number] [place] [address] 06230- 7010 Jul, [email or web address] [id number] Jul, Anemia, unspecified type D64.9 ; Acute renal failure, unspecified acute renal failure type N17.9 ; Other chronic pain G89.29 ; Obstructive sleep apnea syndrome G47.33 and Type 2 diabetes mellitus without complication, unspecified care home insulin use status E11.9 [place] [id number] [place] [address] 95914- 2129 Jul, [place] [address] [place] [id number] [place] [address] 13153- 4455 Jul, [place] [address] [place] [id number] [place] [address] 06577- 2361 Jul, [place] [address] 74758- 0255 Jul, [place] [address] [place] [id number] [place] [address] 21453- 5691 Jul, [address] [id number] Jun, Other chronic pain G89.29 ; Hayes catheter in place Z92.89 ; Chronic kidney disease (CKD), unspecified stage N18.9 and Blisters of multiple sites R23.8 [facility] [id number] [place] [address], [place] [address]- 4037 Jun, [facility] [address] [facility] [id number] [place] [address]- 2237 Jun, [facility] [id number] [place] [address] 92884- 5466 Jun, [facility] [id number] [place] [address], [place] [address]- 9725 Jun, [facility] [id number] [place] [address], [place] [address]- 3313 Jun, [facility] [address] [id number] [place] [address], [place] [address]- 5750 Jun, [facility] [address] [facility] [id number] [place] [address] 89365- 8263 Jun, [facility] [address] [id number] [place] [address], [place] [address]- 0638 Jun, [facility] [address] [facility] [id number] [place] [address]- 4181 Jun, [facility] [address] [facility] [id number], [place] [address]- 5835 Jun, [facility] [address] [facility] [id number], [place] [address]- 6625 Jun, [facility] [address] [id number] [place] [address]- 9629 May, [facility] [address] [facility] [id number] [place] [address] 39846- 2621 May, [facility] [address] [facility] [id number] [address]- 0874 May, Other chronic pain G89.29 [facility] [address] [place] [id number] May, Encounter to establish care Z76.89 ; [...] HISTORY Never Assessed REASON FOR VISIT Refill Percocet for 1 week at a time PLAN OF CARE VITAL SIGNS MEDICATIONS Medication Instructions Dosage Frequency Start Date End Date Duration Status Oxycodone-Acetaminophen 10-325 MG Orally 4 times a day 1 tablet 6h Nov, Nov, 07 days Active RESULTS No Results PROCEDURES No [...]
--- OUTSIDE RECORDS SUMMARY | 2018-09-17 19:50 | XMS REPORT ---
Author Author LATONYA KIM Organization [facility] Address [address] [place] [address] Care Team Providers Care Email Campaign Manager Name Role Phone LATONYA KIM Unavailable PROBLEMS Type Condition ICD9-CM Code XQL28-LI Code Onset Dates Condition Status SNOMED Code Problem Atrial fibrillation, unspecified type I48.91 Active 51074133 Problem Decreased renal function N28.9 Active 39399182 Problem Ulcer L98.499 Active 620656071 Problem Venous stasis dermatitis of both lower extremities I87.2 Active 23403158 Problem Urinary incontinence, unspecified type R32 Active 594528507 Problem Stage 4 chronic kidney disease N18.4 Active 829641686 Problem Morbid obesity due to excess calories E66.01 Active 113171095 Problem Closed fracture of left patella, unspecified fracture morphology, sequela S82.002S Active 62740346 Problem Bladder spasms N32.89 Active 860450187 Problem Chronic fatigue R53.82 Active 78764309 Problem Primary insomnia F51.01 Active 4332853 Problem Anxiety F41.9 Active 18184236 Problem Type 2 diabetes mellitus without complication, unspecified prison insulin use status E11.9 Active 82755165 Problem Depression, unspecified depression type F32.9 Active 98037513 Problem Cataract H26.9 Active 710695760 Problem Chronic kidney disease (CKD), unspecified stage N18.9 Active 879722606 Problem Gastroesophageal reflux disease without esophagitis K21.9 Active 212673495 Problem Other chronic pain G89.29 Active 88766992 Problem Hypothyroidism, unspecified type E03.9 Active 47211375 Problem Restless leg syndrome G25.81 Active 08469187 Problem Obstructive sleep apnea syndrome G47.33 Active 35541430 Problem Perennial allergic rhinitis, unspecified allergic rhinitis trigger J30.89 Active 305859936 ALLERGIES No Information ENCOUNTERS Encounter Location Date Diagnosis [facility] [address] [facility] [id number] [address] Apr, [facility] [address] [id number] [address] Apr, [facility] [address], [place] [address] Apr, Primary insomnia F51.01 [place] [address], [place] [address] Apr, [place] [address] [place] [address] 12007- 2771 March, Other chronic pain G89.29 [facility] [employer] [address] [place] [id number] March, Arthralgia, unspecified joint M25.50 ; Abnormal urine sediment R82.90 ; Venous stasis dermatitis of both lower extremities I87.2 ; Stage 4 chronic kidney disease N18.4 and Cataract of right eye, unspecified cataract type H26.9 [place] [address], [place] [address] March, Primary insomnia F51.01 [facility] [employer] [address] [place] [id number] March, Cervicalgia M54.2 ; Acute pain of right shoulder M25.511 and Pain of left femur M89.8X5 [place] [id number], [place] [address] March, [place] [id number] [place] [address] 45334- 3795 March, Other chronic pain G89.29 [place] [id number], [place] [address] Feb, [facility] [employer] [address] [place] [id number] Feb, Leg swelling M79.89 [facility] [address] [id number], [place] [address] 2139 Feb, Primary insomnia F51.01 [facility] [employer] [address] [place] [id number] Feb, Fever in other diseases R50.81 and Intermittent left lower quadrant abdominal pain R10.32 [place] [id number] [place] [address] 97199- 6585 Feb, [place] [id number] [place] [address] 04855- 3697 Feb, [place] [address] [address]- [address] Feb, Depression, unspecified depression type F32.9 ; Hypothyroidism, unspecified type E03.9 ; 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, 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 and Anxiety F41.9 [place] [id number] [place] [address] 65568- 6137 Feb, Other chronic pain G89.29 [place] [address] [id number] Jan, Other chronic pain G89.29 [place] [id number] [place] [address] 21964- 4244 Jan, Bladder spasms N32.89 [place] [id number] [place] [address] 89108- 4144 Jan, Bladder spasms N32.89 [place] [id number] [place] [address] 77349- 2374 Dec, Bladder spasms N32.89 [place] [id number] [place] [address] 05760- 6460 Dec, Depression, unspecified depression type F32.9 [place] [id number] [place] [address] 49312- 6523 Dec, [facility] [employer] [address] [place] [id number] Dec, Hypothyroidism, unspecified type E03.9 ; Depression, unspecified depression type F32.9 ; Other chronic pain G89.29 ; Urinary retention R33.9 and Atrial fibrillation, unspecified type I48.91 [facility] [id number] [place] [address] [id number] Dec, [facility] [id number] [place] [address] [id number] Dec, Other chronic pain G89.29 [facility] [id number] [place] [address] [id number] Nov, [facility] [id number] [place] [address] [id number] Nov, Other chronic pain G89.29 [facility] [id number] [place] [address] 15729- 9122 Nov, Other chronic pain G89.29 [place] [id number] [place] [address] 19264- 5715 Nov, [facility] [id number] [place] [address] [id number]- 1383 Nov, [facility] [address] [place] [address] [id number]- 2639 Nov, Other chronic pain G89.29 [facility] [id number] [place] [address] [id number]- 0486 Nov, Other chronic pain G89.29 [facility] [address] [place] [address] 14819126- 4303 Oct, [facility] [address] [place] [address] [id number]- 9531 Oct, Other chronic pain G89.29 Via [facility] [address] [place] [id number] Oct, Weakness R53.1 ; Macrocytic anemia D53.9 ; Discolored skin L81.9 ; Other chronic pain G89.29 ; Dysuria R30.0 and Hayes catheter in place Z92.89 [facility] [address] [place] [address] 85055- 2879 Oct, Other chronic pain G89.29 [facility] [address] [id number] [id number] Sep, [facility] [address] [facility] [id number], [place] [address] 6678 Sep, [facility] [address] [facility] [id number], [place] [address] 6[address] Sep, [facility] [id number] [place] [address] [id number] Sep, [facility] [address] [id number] [id number] Sep, Other chronic pain G89.29 [facility] [address] [id number], [place] [address] 1402 Sep, [facility] [address] [id number] [address] Sep, Other chronic pain G89.29 [facility] [address] [place] [id number] Sep, Chronic urinary tract infection N39.0 ; [...] Z87.81 and Hayes catheter in place Z92.89 [facility] [address] [id number], [place] [address] 5107 Sep, [facility] [address] [facility] [id number], [place] [address] 1045 Aug, [facility] [id number], [place] [address] 5901 Aug, Other chronic pain G89.29 [facility] [address], [place] [address] 5489 Aug, [facility] [place] [facility] [address], [place] [address] 3[address] Aug, [facility] [place] [facility] [address] [id number] [id number] Aug, [facility] [id number] [place] [address] 93807- 1804 Aug, [facility] [address] [place] [address] 69259- 1764 Aug, 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, 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 [facility] [address], [place] [address] 7393 Aug, Other chronic pain G89.29 [facility] [address], [place] [address]- 2629 18 Aug, 2017 [facility] [address] [place] [address] 98902- 6137 16 Aug, 2017 [facility] [address] [place] [address] 25236- 8201 22 Jul, 2017 Other chronic pain G89.29 [facility] [address], [place] [address]- 6647 19 Jul, 2017 [facility] [address], [place] [address]- 6693 19 Jul, 2017 Dark brown urine R82.99 [facility] [address], [place] [address]- 9684 19 Jul, 2017 Dark brown urine R82.99 [facility] [address], [place] [address]- 7497 14 Jul, 2017 [facility] [address], [place] [address]- 6398 Jun, Other chronic pain G89.29 [facility] [address] [id number], [place] [address]- 9405 Jun, 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, 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 [place] [id number] [place] [address] 28652- 4108 May, Candidiasis, intertrigo B37.2 [place] [id number] [place] [address] 67098- 3602 May, Other chronic pain G89.29 [place] [id number] [place] [address] 49353- 7564 May, [place] [id number] [place] [address] 31078- 4666 May, [place] [id number] [place] [address] 50758- 6575 May, Candidiasis, intertrigo B37.2 [place] [id number] [place] [address] 61669- 3309 May, Atrial fibrillation, unspecified type I48.91 [place] [id number] [place] [address] 24845- 4646 May, Hypothyroidism, unspecified type E03.9 and Decreased renal function N28.9 [place] [id number] [place] [address] 40257- 6936 May, 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, 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 [place] [id number] [place] [address] 88281- 6055 May, Dental examination Z01.20 [place] [id number] [place] [address] 80355- 5869 May, Chronic kidney disease (CKD), unspecified stage N18.9 ; Type 2 diabetes mellitus without complication, unspecified prison insulin use status E11.9 ; Hypothyroidism, unspecified type E03.9 ; Depression, unspecified depression type F32.9 ; Anemia, unspecified type D64.9 and Ulcer L98.499 [facility] [address], [place] [address]- 5272 May, [facility] [id number] [place] [address] 00954- 1617 Apr, Other chronic pain G89.29 [facility] [address], [place] [address]- 7734 Apr, Other chronic pain G89.29 [facility] [id number] [place] [address] 38860- 9074 March, [facility] [id number] [place] [address] 40715- 7191 March, [facility] [id number] [place] [address] 47352- 2950 March, [facility] [id number] [place] [address] 72590- 0718 March, Other chronic pain G89.29 [facility] [address] [place] [address] 52569- 0332 March, [facility] [id number] [place] [address] 02180- 0874 Feb, [facility] [address] [place] [address] 09615- 3296 Feb, Type 2 diabetes mellitus without complication, unspecified prison insulin use status E11.9 ; Candidiasis, intertrigo B37.2 ; Decubitus ulcer of left buttock, unstageable L89.320 and Pressure ulcer of contiguous region involving right buttock and hip, unspecified ulcer stage L89.40 [facility] [id number] [place] [address] 59594- 6780 Feb, Atrial fibrillation, unspecified type I48.91 [facility] [address], [place] [address]- 4720 Feb, [facility] [id number] [place] [address] 99238- 5800 Feb, [facility] [address], [place] [address]- 4595 Feb, Other chronic pain G89.29 [facility] [address], [place] [address] 2546 Jan, Other chronic pain G89.29 [facility] [address], [place] [address]- 9296 Dec, [facility] [address], [place] [address] 2544 Dec, Lethargy R53.83 [facility] [address] [place] [address] 28370- 0796 17 Dec, 2016 [facility] [address], [place] [address]- 7753 Dec, Other chronic pain G89.29 [facility] [address], [place] [address]- 5341 Nov, [facility] [address], [place] [address]- 7228 Nov, [facility] [address], [place] [address]- 9473 Nov, Other chronic pain G89.29 [facility] [address], [place] [address]- 2536 Nov, [facility] [address], [place] [address] 2542 Nov, [facility] [address], [place] [address]- 8963 Nov, [facility] [address], [place] [address]- 2541 Oct, Cough R05 [facility] [address] [address] 2508 Oct, Urinary tract infection, site not specified N39.0 [place] [address] [place] [address] 71032- 7112 16 Oct, 2016 Other chronic pain G89.29 [place] [id number] [place] [address] 96435- 6527 15 Oct, 2016 Type 2 diabetes mellitus without complication, unspecified prison insulin use status E11.9 ; Other chronic [...] J30.89 ; Nausea R11.0 and Candidiasis B37.9 [place] [id number] [place] [address] 35682- 5220 Oct, [place] [id number] [place] [address] 97544- 3831 Oct, [place] [id number] [place] [address] 05451- 1070 Oct, [place] [id number] [place] [address] 90730- 5508 Oct, Chronic kidney disease (CKD), unspecified stage N18.9 [place] [address] [place] [address] 20124- 6067 Oct, [place] [id number] [place] [address] 80041- 0029 Sep, Other chronic pain G89.29 [place] [address] [place] [address] 93074- 4593 Sep, Chronic kidney disease (CKD), unspecified stage N18.9 and Senile cataract of right eye, unspecified age-related cataract type H25.9 [facility] [address], [place] [address]- 3386 Sep, [facility] [address], [place] [address]- 3460 Sep, [facility] [address], [place] [address]- 5091 Sep, [facility] [id number] [place] [address] 28554- 5561 Sep, [facility] [address] [place] [address] 93960- 6020 Sep, [facility] [id number] [place] [address] 09771- 8118 Aug, [facility] [address], [place] [address]- 7770 Aug, [facility] [address], [place] [address]- 9470 Aug, [facility] [address], [place] [address]- 2680 18 Aug, 2016 Encounter to establish care Z76.89 ; Other chronic pain G89.29 ; Chronic kidney disease (CKD), unspecified stage N18.9 ; Obstructive sleep apnea syndrome G47.33 ; 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, 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 ; Urinary incontinence, unspecified type R32 ; Depression, unspecified depression type F32.9 ; History of femur fracture Z87.81 ; History of fractured kneecap Z87.81 ; Hypothyroidism , unspecified type E03.9 ; Cataract H26.9 and Gastroesophageal reflux disease without esophagitis K21.9 [facility] [address], [place] [address]- 3146 14 Aug, 2016 [facility] [address], [place] [address]- 8943 Aug, Urinary incontinence, unspecified type R32 [facility] [address], [place] [address]- 4364 Aug, [place] [address] [place] [address] 00531- 7945 Jul, [address] [id number] Jul, Type 2 diabetes mellitus without complication, [...] E03.9 and Constipation, unspecified constipation type K59.00 [address] [place] [address] 81646- 0662 Jul, [place] [id number] [place] [address] 81361- 2506 16 Jul, [address] [id number] Jul, Anemia, unspecified type D64.9 ; Acute renal failure, unspecified acute renal failure type N17.9 ; Other chronic pain G89.29 ; Obstructive sleep apnea syndrome G47.33 and Type 2 diabetes mellitus without complication, unspecified prison insulin use status E11.9 [place] [address], [place] [address]- 1608 Jul, [place] [id number] [place] [address] 17008- 9520 Jul, [place] [id number] [place] [address] 25133- 2047 Jul, [place] [id number] [place] [address] 35113- 2843 Jul, [facility] [address] [id number] [place] [address]- 8919 Jul, [facility] [address] [place] [id number] Jun, Other chronic pain G89.29 ; Hayes catheter in place Z92.89 ; Chronic kidney disease (CKD), unspecified stage N18.9 and Blisters of multiple sites R23.8 [facility] [address] [id number] [place] [address]- 0750 Jun, [facility] [address] [id number] [place] [address]- 0302 Jun, [facility] [address] [id number] [place] [address]- 1253 Jun, [facility] [address] [id number] [place] [address]- 8722 Jun, [facility] [address] [id number] [place] [address]- 1061 Jun, [facility] [address] [id number] [place] [address]- 1808 Jun, [facility] [address] [facility] [id number] [place] [address]- 0271 Jun, [facility] [address] [id number] [place] [address]- 2618 Jun, [facility] [address] [id number] [place] [address]- 2508 Jun, [facility] [address] [id number] [place] [address]- 4725 Jun, [facility] [address] [facility] [id number] [place] [address]- 8413 Jun, [facility] [address] [facility] [id number] [place] [address]- 1292 May, [facility] [address] [facility] [id number] [place] [address]- 2705 May, [facility] [address] [facility] [id number] [place] [address]- 9257 May, Other chronic pain G89.29 [facility] [address] [place] [id number] May, Encounter to establish care Z76.89 ; [...] SOCIAL HISTORY Never Assessed REASON FOR VISIT PA for Lidocaine ointment PLAN OF CARE VITAL SIGNS MEDICATIONS Medication Instructions Dosage Frequency Start Date End Date Duration Status Lidocaine HCl 4 % Externally Twice a day as directed 12h Nov, Active RESULTS No Results PROCEDURES No Known [...]
--- OUTSIDE RECORDS SUMMARY | 2018-09-17 19:50 | XMS REPORT ---
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 Name Role Phone LATONYA KIM Unavailable PROBLEMS Type Condition ICD9-CM Code VOQ82-CK Code Onset Dates Condition Status SNOMED Code Problem Atrial fibrillation, unspecified type I48.91 Active 91752678 Problem Decreased renal function N28.9 Active 60267576 Problem Ulcer L98.499 Active 006661524 Problem Venous stasis dermatitis of both lower extremities I87.2 Active 24806996 Problem Urinary incontinence, unspecified type R32 Active 677171679 Problem Stage 4 chronic kidney disease N18.4 Active 425082393 Problem Morbid obesity due to excess calories E66.01 Active 194444874 Problem Closed fracture of left patella, unspecified fracture morphology, sequela S82.002S Active 16929152 Problem Bladder spasms N32.89 Active 436501479 Problem Chronic fatigue R53.82 Active 44387605 Problem Primary insomnia F51.01 Active 8083340 Problem Anxiety F41.9 Active 89441912 Problem Type 2 diabetes mellitus without complication, 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 Active 56331563 Problem Depression, unspecified depression type F32.9 Active 14419657 Problem Cataract H26.9 Active 787061338 Problem Chronic kidney disease (CKD), unspecified stage N18.9 Active 739227686 Problem Gastroesophageal reflux disease without esophagitis K21.9 Active 519621128 Problem Other chronic pain G89.29 Active 51189614 Problem Hypothyroidism, unspecified type E03.9 Active 99646615 Problem Restless leg syndrome G25.81 Active 89613592 Problem Obstructive sleep apnea syndrome G47.33 Active 33280254 Problem Perennial allergic rhinitis, unspecified allergic rhinitis trigger J30.89 Active 039781566 ALLERGIES No Information ENCOUNTERS Encounter Location Date Diagnosis [facility] [address] [place] [id number] March, Arthralgia, unspecified joint M25.50 ; Abnormal urine sediment R82.90 ; Venous stasis dermatitis of both lower extremities I87.2 ; Stage 4 chronic kidney disease N18.4 and Cataract of right eye, unspecified cataract type H26.9 [facility] [id number] [place] [address] 22196- 4265 March, Primary insomnia F51.01 Via [facility] [address] [place] [id number] March, Cervicalgia M54.2 ; Acute pain of right shoulder M25.511 and Pain of left femur M89.8X5 [facility] [id number] [place] [address] 27820- 3226 March, [facility] [id number] [place] [address] 19913- 3886 March, Other chronic pain G89.29 [facility] [id number] [place] [address] 10273- 6697 Feb, Via [facility] [address] [place] [id number] Feb, Leg swelling M79.89 [place] [id number] [place] [address] 06734- 8989 Feb, Primary insomnia F51.01 [facility] [employer] [address] [place] [id number] Feb, Fever in other diseases R50.81 and Intermittent left lower quadrant abdominal pain R10.32 [place] [id number] [place] [address] 98650- 9488 Feb, [place] [id number] [place] [address] 09633- 3278 Feb, [facility] [id number] [place] [address] 02230- 7042 Feb, Depression, unspecified depression type F32.9 ; Hypothyroidism, unspecified type E03.9 ; Type 2 diabetes mellitus without complication, unspecified mcc insulin use status E11.9 and Anxiety F41.9 [facility] [place] [address] [address] Feb, Other chronic pain G89.29 [place] [id number] [place] [id number] Jan, Other chronic pain G89.29 [facility] [place] [address] [address] 0[address] Jan, Bladder spasms N32.89 [facility] [place] [id number] [place] [address] 06661- 7926 Jan, Bladder spasms N32.89 [facility] [id number] [place] [address] 41345- 6280 Dec, Bladder spasms N32.89 [facility] [address] [address] 9452 Dec, Depression, unspecified depression type F32.9 [facility] [address] [address] 7[address] Dec, Via [facility] [address] [place] [id number] Dec, Hypothyroidism, unspecified type E03.9 ; Depression, unspecified depression type F32.9 ; Other chronic pain G89.29 ; Urinary retention R33.9 and Atrial fibrillation, unspecified type I48.91 [place] [id number] [id number] Dec, [facility] [id number] [id number] Dec, Other chronic pain G89.29 [place] [id number] [place] [id number] Nov, [place] [id number] [address] Nov, Other chronic pain G89.29 [place] [address] [place] [address] 41355- 9451 Nov, Other chronic pain G89.29 [facility] [place] [address] [address] 3302 Nov, [facility] [place] [address] [address] 4444 Nov, [facility] [place] [address] [place] [address] 13985- 6515 Nov, Other chronic pain G89.29 [facility] [place] [address] [place] [address] 087928- 6011 Nov, Other chronic pain G89.29 [facility] [place] [address] [place] [address] 03051- 9287 14 Oct, 2017 [facility] [place] [address] [place] [address] 64672- 3027 Oct, Other chronic pain G89.[address] [facility] [address] [facility] [place] [id number] Oct, Weakness R53.1 ; Macrocytic anemia D53.9 ; Discolored skin L81.9 ; Other chronic pain G89.29 ; Dysuria R30.0 and Hayes catheter in place Z92.89 [facility] [place] [address] [address] 3958 Oct, Other chronic pain G89.29 [facility] [id number] [place] [address] Sep, [facility] [place] [id number] [address]- 0714 Sep, [facility] [place] [address] [address] 9035 Sep, [facility] [id number] [place] [address] [id number] Sep, [facility] [id number] [place] [id number] Sep, Other chronic pain G89.29 [facility] [place] [address] [address] Sep, [facility] [id number] [place] [address] [id number] Sep, Other chronic pain G89.[address] 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 ; Hypothyroidism, unspecified type E03.9 ; Depression, unspecified depression type F32.9 ; Cataract H26.9 ; Obstructive sleep apnea syndrome G47.33 ; Atrial fibrillation, unspecified type I48.91 ; History of femur fracture Z87.81 and [address] catheter in place Z92.89 [facility] [place] [address] [address] 9340 Sep, [facility] [place] [address] [address] 7469 Aug, [facility] [place] [id number] [place] [address] 12856- 7169 Aug, Other chronic pain G89.29 [facility] [place] [id number] [address] 2486 Aug, [facility] [place] [address] [address] 7341 Aug, [facility] [id number] [id number] Aug, [facility] [place] [id number] [place] [address] 94306- 6623 Aug, [facility] [place] [address] [address] 2115 Aug, Type 2 diabetes mellitus without complication, 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 [facility] [place] [address] [address] 6192 19 Aug, 2017 Other chronic pain G89.29 [facility] [place] [address] [place] [address] 95826- 3219 18 Aug, 2017 [facility] [place] [id number] [place] [address] 45639- 1048 16 Aug, 2017 [facility] [place] [id number] [place] [address] 99553- 9240 22 Jul, 2017 Other chronic pain G89.29 [facility] [place] [id number] [place] [address] 90439- 5587 Jul, [facility] [place] [id number] [place] [address] 16612- 1630 Jul, Dark brown urine R82.99 [facility] [place] [id number] [place] [address] 75146- 0661 Jul, Dark brown urine R82.99 [facility] [place] [id number] [place] [address] 80622- 2254 14 Jul, 2017 [facility] [place] [id number] [place] [address] 73234- 4570 Jun, Other chronic pain G89.29 [facility] [place] [id number] [place] [address] 75813- 6866 Jun, Type 2 diabetes mellitus without complication, unspecified mcc insulin use status E11.9 [facility] [place] [address] [address] 9246 May, Candidiasis, intertrigo B37.2 [facility] [place] [id number] [place] [address] 90397- 3506 May, Other chronic pain G89.29 [facility] [place] [id number] [place] [address] 58402- 9636 May, [facility] [place] [id number] [place] [address] 67394- 0610 May, [place] [id number] [place] [address] 59715- 7638 May, Candidiasis, intertrigo B37.2 [place] [id number] [place] [address] 37214- 8274 May, Atrial fibrillation, unspecified type I48.91 [place] [id number] [place] [address] 19217- 9723 May, Hypothyroidism, unspecified type E03.9 and Decreased renal function N28.9 [place] [id number] [place] [address] 18340- 3966 May, Type 2 diabetes mellitus without complication, unspecified mcc insulin use status E11.9 [place] [id number] [place] [address] 64392- 5578 May, Dental examination Z01.20 [place] [id number] [place] [address] 42367- 5089 May, Chronic kidney disease (CKD), unspecified stage N18.9 ; Type 2 diabetes mellitus without complication, 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 ; Hypothyroidism, unspecified type E03.9 ; Depression, unspecified depression type F32.9 ; Anemia, unspecified type D64.9 and Ulcer L98.499 [place] [id number] [place] [address] 58039- 9130 May, [place] [id number] [place] [address] 76140- 6698 Apr, Other chronic pain G89.29 [place] [id number] [place] [address] 58299- 8503 Apr, Other chronic pain G89.29 [place] [id number] [place] [address] 35454- 2642 March, [place] [id number] [place] [address] 61286- 1829 March, [facility] [place] [address] [address]- 9425 March, [facility] [place] [id number] [place] [address] 68736- 0234 March, Other chronic pain G89.29 [facility] [place] [address] [address]- 1151 March, [facility] [place] [id number] [place] [address] 53172- 9792 Feb, [facility] [place] [address] [address]- 1216 Feb, Type 2 diabetes mellitus without complication, 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 ; Candidiasis, intertrigo B37.2 ; Decubitus ulcer of left buttock, unstageable L89.320 and Pressure ulcer of contiguous region involving right buttock and hip, unspecified ulcer stage L89.40 [facility] [place] [address] [address]- 2662 Feb, Atrial fibrillation, unspecified type I48.91 [facility] [place] [address] [place] [address] 01825- 1478 Feb, [facility] [place] [address] [address]- 8081 Feb, [facility] [place] [address] [address]- 5241 Feb, Other chronic pain G89.29 [facility] [place] [address] [address]- 0319 Jan, Other chronic pain G89.29 [facility] [place] [address] [address]- 7540 Dec, [facility] [place] [address] [address]- 8341 Dec, Lethargy R53.83 [facility] [place] [id number] [address]- 5729 17 Dec, 2016 [facility] [place] [address] [address]- 8069 Dec, Other chronic pain G89.29 [facility] [place] [id number] [address]- 6964 Nov, [facility] [place] [address] [address]- 9181 Nov, [facility] [place] [address] [address]- 8401 Nov, Other chronic pain G89.29 [facility] [place] [address] [address]- 6231 Nov, [facility] [place] [address] [address]- 6674 Nov, [facility] [place] [address] [address]- 2355 Nov, [facility] [place] [id number] [address]- 6591 Oct, Cough R05 [facility] [place] [address] [address]- 0135 Oct, Urinary tract infection, site not specified N39.0 [facility] [place] [id number] [address]- 5828 Oct, Other chronic pain G89.29 [facility] [place] [id number] [address]- 8879 15 Oct, 2016 Type 2 diabetes mellitus without complication, 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 ; Other chronic [...] J30.89 ; Nausea R11.0 and Candidiasis B37.9 [facility] [place] [id number] [place] [address] 19290- 7823 Oct, [facility] [place] [address] 34907- 5500 Oct, [facility] [place] [address] 46895- 6592 Oct, [place] [address] 70746- 8690 Oct, Chronic kidney disease (CKD), unspecified stage N18.9 [place] [address] 36158- 1113 Oct, [place] [address] 11772- 7655 Sep, Other chronic pain G89.29 [place] [address] 85822- 3443 Sep, Chronic kidney disease (CKD), unspecified stage N18.9 and Senile cataract of right eye, unspecified age-related cataract type H25.9 [place] [id number] [place] [address] 51079- 3016 Sep, [facility] [place] [id number] [place] [address] 85077- 7795 Sep, [place] [address] 83728- 1105 Sep, [facility] [place] [id number] [place] [address] 77308- 9743 Sep, [facility] [place] [id number] [place] [address] 69208- 9311 Sep, [facility] [place] [address] [address]- 5236 Aug, [place] [id number] [place] [address] 12310- 1720 Aug, [place] [id number] [place] [address] 63348- 8665 Aug, [place] [id number] [place] [address] 65520- 1274 Aug, Encounter to establish care Z76.89 ; Other chronic pain G89.29 ; Chronic kidney disease (CKD), unspecified stage N18.9 ; Obstructive sleep apnea syndrome G47.33 ; Type 2 diabetes mellitus without complication, 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 ; Urinary incontinence, unspecified type R32 ; Depression, unspecified depression type F32.9 ; History of femur fracture Z87.81 ; History of fractured kneecap Z87.81 ; Hypothyroidism , unspecified type E03.9 ; Cataract H26.9 and Gastroesophageal reflux disease without esophagitis K21.9 [place] [address] [place] [address] 03407- 8154 Aug, [place] [id number] [place] [address] 26305- 3865 Aug, Urinary incontinence, unspecified type R32 [place] [address] [place] [address] 39171- 5910 Aug, [place] [address] [place] [address] 43572- 4021 Jul, [facility] [address] [place] [id number] Jul, Type 2 diabetes mellitus without complication, [...] E03.9 and Constipation, unspecified constipation type K59.00 [place] [id number] [place] [address] 83230- 3095 Jul, [place] [address] 06673- 2982 16 Jul, [email or web address] [id number] Jul, 2016 Anemia, unspecified type D64.9 ; Acute renal failure, unspecified acute renal failure type N17.9 ; Other chronic pain G89.29 ; Obstructive sleep apnea syndrome G47.33 and Type 2 diabetes mellitus without complication, 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 [place] [id number] [place] [address] 51566- 4411 Jul, [place] [address] 41877- 8288 Jul, [place] [id number] [place] [address] 49859- 7337 Jul, [place] [id number] [place] [address] 42759- 8416 Jul, [place] [id number] [place] [address] 22963- 6008 Jul, [email or web address] [id number] Jun, Other chronic pain G89.29 ; Hayes catheter in place Z92.89 ; Chronic kidney disease (CKD), unspecified stage N18.9 and Blisters of multiple sites R23.8 [place] [id number] [place] [address] 70417- 8215 Jun, [place] [id number] [place] [address] 02428- 5565 Jun, [place] [id number] [address]- 4082 Jun, [facility] [place] [id number] [address]- 9847 Jun, [facility] [place] [address] [facility] [id number] [place] [address]- 1566 Jun, [facility], [place], [facility] [id number] [address] Jun, [facility], [place], [facility] [address] [facility] [id number] [place] [address] Jun, [facility], [place], [facility] [id number] [place] [address] Jun, [facility], [place], [facility] [id number] [address] Jun, [facility], [place], [facility] [id number] [place] [address] Jun, [facility], [place], [facility] [address] [id number] [address] Jun, [facility], [place], [facility] [address] [id number] [address] May, [facility], [place], [facility] [address] [id number] [address] May, [facility], [place], [facility] BY [facility] [id number] [address] May, Other chronic pain G89.29 [facility] [address] [place] [id number] May, Encounter to [facility] care Z76.89 ; Type 2 [...] SOCIAL HISTORY Never Assessed REASON FOR VISIT Bi-Pap Order request PLAN OF CARE VITAL SIGNS MEDICATIONS [...] Acute Kidney Injury 08/05/16 Hospitalization History UTI, Sepsis--[facility] Hospitalization History Chest pain/SOB/A-fib 02/2017 Hospitalization History Chest pain-[facility] 04/13/17 Hospitalization History UTI, respiratory failure, altered mental status-[facility] 09/13/17
--- OUTSIDE RECORDS SUMMARY | 2018-09-17 19:51 | XMS REPORT ---
Author Author LATONYA KIM [facility] Address [address] [place] [address] Care Team Providers Care Candy Vendor Name Role Phone LATONYA KIM Unavailable PROBLEMS Type Condition ICD9-CM Code HGU48-SJ Code Onset Dates Condition Status SNOMED Code Problem Atrial fibrillation, unspecified type I48.91 Active 93284942 Problem Decreased renal function N28.9 Active 50261119 Problem Ulcer L98.499 Active 510815826 Problem Venous stasis dermatitis of both lower extremities I87.2 Active 90344939 Problem Urinary incontinence, unspecified type R32 Active 434745015 Problem Stage 4 chronic kidney disease N18.4 Active 323235053 Problem Morbid obesity due to excess calories E66.01 Active 895337348 Problem Closed fracture of left patella, unspecified fracture morphology, sequela S82.002S Active 81776632 Problem Bladder spasms N32.89 Active 911237257 Problem Chronic fatigue R53.82 Active 39234352 Problem Primary insomnia F51.01 Active 3795593 Problem Anxiety F41.9 Active 47060330 Problem Type 2 diabetes mellitus without complication, unspecified superintendent container terminal insulin use status E11.9 Active 08008154 Problem Depression, unspecified depression type F32.9 Active 81802524 Problem Cataract H26.9 Active 993688607 Problem Chronic kidney disease (CKD), unspecified stage N18.9 Active 413056338 Problem Gastroesophageal reflux disease without esophagitis K21.9 Active 372808528 Problem Other chronic pain G89.29 Active 78427539 Problem Hypothyroidism, unspecified type E03.9 Active 97717801 Problem Restless leg syndrome G25.81 Active 52356339 Problem Obstructive sleep apnea syndrome G47.33 Active 80347797 Problem Perennial allergic rhinitis, unspecified allergic rhinitis trigger J30.89 Active 438174882 ALLERGIES No Information ENCOUNTERS Encounter Location Date Diagnosis Via [facility] [address] [place] [id number] March, Arthralgia, unspecified joint M25.50 ; Abnormal urine sediment R82.90 ; Venous stasis dermatitis of both lower extremities I87.2 ; Stage 4 chronic kidney disease N18.4 and Cataract of right eye, unspecified cataract type H26.9 [address] [facility] [id number] [place] [address] 47667- 8518 March, Primary insomnia F51.01 Via [facility] [address] [place] [id number] March, Cervicalgia M54.2 ; Acute pain of right shoulder M25.511 and Pain of left femur M89.8X5 [place] [id number] [place] [address] 71617- 0645 March, [facility] [facility] [id number] [place] [address] 92675- 4775 March, Other chronic pain G89.29 [place] [facility] [id number] [place] [address] 49859- 6536 Feb, Via [facility] [address] [place] [id number] Feb, Leg swelling M79.89 [address] [id number] [place] [address] 68986- 3399 Feb, Primary insomnia F51.01 [facility] [address] [place] [id number] Feb, Fever in other diseases R50.81 and Intermittent left lower quadrant abdominal pain R10.32 [place] [id number] [place] [address] 11467- 3591 Feb, [place] [id number] [place] [address] 46061- 8549 Feb, [place] [id number] [place] [address] 55407- 3358 Feb, Depression, unspecified depression type F32.9 ; Hypothyroidism, unspecified type E03.9 ; Type 2 diabetes mellitus without complication, unspecified fpc insulin use status E11.9 and Anxiety F41.9 [facility] [address] [address] Feb, Other chronic pain G89.29 [id number] [place] [id number] Jan, Other chronic pain G89.29 [facility] [address] [address] 79[address] Jan, Bladder spasms N32.89 [facility] [id number] [place] [address] 84235- 1919 Jan, Bladder spasms N32.89 [place] [id number] [place] [address] 99205- 7010 Dec, Bladder spasms N32.89 [place] [address] [address] Dec, Depression, unspecified depression type F32.9 [place] [address] [address] Dec, Via [facility] [address] [place] [id number] Dec, Hypothyroidism, unspecified type E03.9 ; Depression, unspecified depression type F32.9 ; Other chronic pain G89.29 ; Urinary retention R33.9 and Atrial fibrillation, unspecified type I48.91 [address] [id number] [place] [id number] Dec, [facility] [id number] [place] [address] Dec, Other chronic pain G89.29 [id number] [place] [id number] Nov, [place] [id number] [id number] Nov, Other chronic pain G89.29 [address] [place] [address] 82631- 9746 Nov, Other chronic pain G89.29 [facility] [address] [address] 37[address] Nov, [facility] [address] [address] 1398 Nov, [facility] [address] [place] [address] 37470- 2860 Nov, Other chronic pain G89.29 [facility] [address] [place] [address] 275487- 1629 Nov, Other chronic pain G89.29 [facility] [address] [place] [address] 07080- 0400 14 Oct, 2017 [facility] [address] [place] [address] 87548- 6413 Oct, Other chronic pain G89.29 [facility] [address] [facility] [place] [id number] Oct, Weakness R53.1 ; Macrocytic anemia D53.9 ; Discolored skin L81.9 ; Other chronic pain G89.29 ; Dysuria R30.0 and Hayes catheter in place Z92.89 [facility] [address] [address] 3144 Oct, Other chronic pain G89.29 [facility] [id number] [place] [address] Sep, [facility] [id number] [address] 1664 Sep, [facility] [address] [address] 6841 Sep, [facility] [id number] [place] [address] [id number] Sep, [facility] [place] [id number] [place] [id number] Sep, Other chronic pain G89.29 [facility] [address] [address] 0[address] Sep, [facility] [id number] [place] [address] [id number] Sep, Other chronic pain G89.29 [facility] [address] [place] [address] Sep, Chronic urinary tract infection N39.0 ; Other chronic pain G89.29 ; Chronic kidney disease (CKD), unspecified stage N18.9 ; Type 2 diabetes mellitus without complication, unspecified superintendent container terminal insulin use status E11.9 ; Hypothyroidism, unspecified type E03.9 ; Depression, unspecified depression type F32.9 ; Cataract H26.9 ; Obstructive sleep apnea syndrome G47.33 ; Atrial fibrillation, unspecified type I48.91 ; History of femur fracture Z87.81 [address] Z92.89 [facility] [address] [address] 3[address] Sep, [facility] [address] [address] 2052 Aug, [facility] [id number] [place] [address] 70165- 6947 Aug, Other chronic pain G89.29 [facility] [id number] [address] 8392 Aug, [facility] [address] [address] 9651 Aug, [facility] [id number] [address] Aug, [facility] [id number] [place] [address] 04814- 7528 Aug, [facility] [address] [address] 9966 Aug, Type 2 diabetes mellitus without complication, unspecified superintendent container terminal insulin use status E11.9 [facility] [address] [address] 9749 19 Aug, 2017 Other chronic pain G89.29 [facility] [address] [place] [address] 49700- 6411 18 Aug, 2017 [facility] [id number] [place] [address] 10501- 2316 16 Aug, 2017 [facility] [id number] [place] [address] 62651- 0388 22 Jul, 2017 Other chronic pain G89.29 [facility] [id number] [place] [address] 40574- 5254 Jul, [facility] [id number] [place] [address] 12856- 1942 Jul, Dark brown urine R82.99 [facility] [id number] [place] [address] 19090- 6539 Jul, Dark brown urine R82.99 [facility] [id number] [place] [address] 46591- 5976 14 Jul, 2017 [facility] [id number] [place] [address] 55368- 0182 Jun, Other chronic pain G89.29 [facility] [address] [place] [address] 24552- 5231 Jun, Type 2 diabetes mellitus without complication, unspecified fpc insulin use status E11.9 [facility] [address] [address] 3051 May, Candidiasis, intertrigo B37.2 [facility] [id number] [place] [address] 64064- 0131 May, Other chronic pain G89.29 [facility] [id number] [place] [address] 35113- 4438 May, [facility] [id number] [place] [address] 06007- 7363 May, [address] [place] [place] [address] 10209- 3200 May, Candidiasis, intertrigo B37.2 [id number] [place] [address] 46888- 9922 May, Atrial fibrillation, unspecified type I48.91 [address] [id number] [place] [address] 45352- 6232 May, Hypothyroidism, unspecified type E03.9 and Decreased renal function N28.9 [address] [id number] [place] [address] 39201- 4454 May, Type 2 diabetes mellitus without complication, unspecified fpc insulin use status E11.9 [address] [id number] [place] [address] 54843- 0499 May, Dental examination Z01.20 [address] [id number] [place] [address] 18588- 0309 May, Chronic kidney disease (CKD), unspecified stage N18.9 ; Type 2 diabetes mellitus without complication, unspecified superintendent container terminal insulin use status E11.9 ; Hypothyroidism, unspecified type E03.9 ; Depression, unspecified depression type F32.9 ; Anemia, unspecified type D64.9 and Ulcer L98.499 [id number] [place] [address] 65239- 6390 May, [id number] [place] [address] 52919- 6958 Apr, Other chronic pain G89.29 [address] [id number] [place] [address] 11660- 1945 Apr, Other chronic pain G89.29 [address] [id number] [place] [address] 59622- 3490 March, [id number] [place] [address] 03767- 2490 March, [facility] [address] [address] 7354 March, [facility] [id number] [place] [address] 64959- 4204 March, Other chronic pain G89.29 [facility] [address] [address] 9339 March, [facility] [id number] [place] [address] 06968- 8477 Feb, [facility] [address] [address]- 5498 Feb, Type 2 diabetes mellitus without complication, unspecified superintendent container terminal insulin use status E11.9 ; Candidiasis, intertrigo B37.2 ; Decubitus ulcer of left buttock, unstageable L89.320 and Pressure ulcer of contiguous region involving right buttock and hip, unspecified ulcer stage L89.40 [facility] [address] [address]- 1675 Feb, Atrial fibrillation, unspecified type I48.91 [facility] [address] [place] [address] 02626- 1512 Feb, [facility] [address] [address]- 6463 Feb, [facility] [address] [address]- 8222 Feb, Other chronic pain G89.29 [facility] [address] [address]- 2809 Jan, Other chronic pain G89.29 [facility] [address] [address]- 5090 Dec, [facility] [address] [address]- 3574 Dec, Lethargy R53.83 [facility] [id number] [address]- 3411 17 Dec, 2016 [facility] [address] [address]- 2729 Dec, Other chronic pain G89.29 [facility] [id number] [address]- 9256 Nov, [facility] [address] [address]- 2274 Nov, [facility] [address] [address]- 2970 Nov, Other chronic pain G89.29 [facility] [address] [address]- 9783 Nov, [facility] [address] [address]- 0126 Nov, [facility] [address] [address]- 3980 Nov, [facility] [id number] [address]- 8668 Oct, Cough R05 [facility] [address] [address]- 4816 Oct, Urinary tract infection, site not specified N39.0 [facility] [id number] [address]- 4087 Oct, Other chronic pain G89.29 [facility] [id number] [address]- 3048 15 Oct, 2016 Type 2 diabetes mellitus without complication, unspecified superintendent container terminal insulin use status E11.9 ; Other [...] J30.89 ; Nausea R11.0 and Candidiasis B37.9 [facility] [id number] [place] [address] 96707- 4616 Oct, [facility] [address] 81532- 6137 Oct, [facility] [address] 80583- 1450 Oct, [address] [address] 65009- 6926 Oct, Chronic kidney disease (CKD), unspecified stage N18.9 [place] [address] 17184- 7513 Oct, [place] [address] 75237- 3160 Sep, Other chronic pain G89.29 [place] [address] 40711- 6838 Sep, Chronic kidney disease (CKD), unspecified stage N18.9 and Senile cataract of right eye, unspecified age-related cataract type H25.9 [place] [id number] [place] [address] 16631- 1918 Sep, [facility] [id number] [place] [address] 00956- 6408 Sep, [place] [address] 44287- 6643 Sep, [facility] [id number] [place] [address] 76317- 5739 Sep, [facility] [id number] [place] [address] 53451- 1276 Sep, [facility] [address] [address]- 5269 Aug, [place] [id number] [place] [address] 56432- 1323 Aug, [place] [id number] [place] [address] 82157- 9494 Aug, [place] [id number] [place] [address] 80037- 2286 Aug, Encounter to establish care Z76.89 ; Other chronic pain G89.29 ; Chronic kidney disease (CKD), unspecified stage N18.9 ; Obstructive sleep apnea syndrome G47.33 ; Type 2 diabetes mellitus without complication, unspecified superintendent container terminal insulin use status E11.9 ; Urinary incontinence, unspecified type R32 ; Depression, unspecified depression type F32.9 ; History of femur fracture Z87.81 ; History of fractured kneecap Z87.81 ; Hypothyroidism , unspecified type E03.9 ; Cataract H26.9 and Gastroesophageal reflux disease without esophagitis K21.9 [place] [address] [place] [address] 77818- 3649 Aug, [place] [id number] [place] [address] 55782- 4289 Aug, Urinary incontinence, unspecified type R32 [place] [address] [place] [address] 17204- 1190 Aug, [place] [address] [place] [address] 81609- 1609 Jul, [facility] [address] [place] [id number] Jul, Type 2 diabetes mellitus without complication, unspecified fpc insulin use status E11.9 ; Chronic kidney [...] E03.9 and Constipation, unspecified constipation type K59.00 [place] [id number] [place] [address] 55880- 1645 Jul, [place] [address] 37006- 8567 16 Jul, [address] [id number] Jul, 2016 Anemia, unspecified type D64.9 ; Acute renal failure, unspecified acute renal failure type N17.9 ; Other chronic pain G89.29 ; Obstructive sleep apnea syndrome G47.33 and Type 2 diabetes mellitus without complication, unspecified superintendent container terminal insulin use status E11.9 [place] [id number] [place] [address] 00173- 6642 Jul, [place] [address] 32509- 1740 Jul, [place] [id number] [place] [address] 48713- 7251 Jul, [place] [id number] [place] [address] 71623- 1085 Jul, [place] [id number] [place] [address] 89033- 7796 Jul, [employer] [id number] Jun, Other chronic pain G89.29 ; Hayes catheter in place Z92.89 ; Chronic kidney disease (CKD), unspecified stage N18.9 and Blisters of multiple sites R23.8 [place] [id number] [place] [address] 49848- 6634 Jun, [place] [id number] [place] [address] 44976- 1275 Jun, [place] [id number] [address]- 7077 Jun, [facility] [id number] [address]- 8891 Jun, [facility] [address] [facility] [id number] [place] [address]- 4634 Jun, [facility] [address] [address]- 8701 Jun, [facility] [address] [facility] [id number] [place] [address]- 2331 Jun, [facility] [address] [address]- 6479 Jun, [facility] [address] [address]- 1548 Jun, [facility] [address] [address]- 4799 Jun, [facility] [address] [id number] [address]- 7103 Jun, [facility] [id number] [address]- 4878 May, [facility] [id number] [address]- 5304 May, [facility] [id number] [address]- 1910 May, Other chronic pain G89.29 [facility] [address] [place] [id number] May, Encounter to [facility] care Z76.89 ; Type 2 [...] Acute Kidney Injury 08/05/16 Hospitalization History UTI, Sepsis--[facility] Hospitalization History Chest pain/SOB/A-fib 02/2017 Hospitalization History Chest pain-[facility] 04/13/17 Hospitalization History UTI, respiratory failure, altered mental status-[facility] 09/13/17
--- OUTSIDE RECORDS SUMMARY | 2018-09-17 19:51 | XMS REPORT ---
Author Author LATONYA KIM [facility] Address [address] [place] [address] Care Team Providers Care Dairy Farmer Name Role Phone LATONYA KIM Unavailable PROBLEMS Type Condition ICD9-CM Code DHO45-PS Code Onset Dates Condition Status SNOMED Code Problem Restless leg syndrome G25.81 Active 95123490 Problem Atrial fibrillation, unspecified type I48.91 Active 54587990 Problem Perennial allergic rhinitis, unspecified allergic rhinitis trigger J30.89 Active 178297060 Problem Primary insomnia F51.01 Active 9022607 Problem Closed fracture of left patella, unspecified fracture morphology, sequela S82.002S Active 87649410 Problem Anxiety F41.9 Active 36832716 Problem Decreased renal function N28.9 Active 38853049 Problem Ulcer L98.499 Active 925695055 Problem Bladder spasms N32.89 Active 342950536 Problem Chronic fatigue R53.82 Active 86118300 Problem Cataract H26.9 Active 124539352 Problem Chronic kidney disease (CKD), unspecified stage N18.9 Active 688190104 Problem Morbid obesity due to excess calories E66.01 Active 997139803 Problem Urinary incontinence, unspecified type R32 Active 494757434 Problem Hypothyroidism, unspecified type E03.9 Active 33365871 Problem Obstructive sleep apnea syndrome G47.33 Active 98212901 Problem Type 2 diabetes mellitus without complication, unspecified usp insulin use status E11.9 Active 51712534 Problem Gastroesophageal reflux disease without esophagitis K21.9 Active 808256434 Problem Depression, unspecified depression type F32.9 Active 35649736 Problem Other chronic pain G89.29 Active 22988273 ALLERGIES No Information ENCOUNTERS Encounter Location Date Diagnosis [facility] [id number] [place] [address] Feb, Via [employer] [facility] [address] [place] [id number] Feb, Leg swelling M79.89 [facility] [id number] [place] [address] 70793- 5443 Feb, Primary insomnia F51.01 [facility] [address] [place] [id number] Feb, Fever in other diseases R50.81 and Intermittent left lower quadrant abdominal pain R10.32 [place] [facility] [id number] [place] [address] 88454- 1847 Feb, [place] [id number] [place] [address] 51633- 0269 Feb, [facility] [facility] [id number] [place] [address] 21931- 6598 Feb, Depression, unspecified depression type F32.9 ; Hypothyroidism, unspecified type E03.9 ; Type 2 diabetes mellitus without complication, unspecified usp insulin use status E11.9 and Anxiety F41.9 [facility] [id number] [place] [address] 08079- 2211 Feb, Other chronic pain G89.29 [facility] [id number] [place] [id number] Jan, Other chronic pain G89.29 [facility] [id number] [place] [address] 28693- 3846 Jan, Bladder spasms N32.89 [facility] [id number] [place] [address] 07316- 7249 Jan, Bladder spasms N32.89 [facility] [id number] [place] [address] 34934- 9587 Dec, Bladder spasms N32.89 [facility] [place] [id number] [place] [address] 18387- 0805 Dec, Depression, unspecified depression type F32.9 [facility] [id number] [place] [address] 09804- 9633 13 Dec, 2017 [facility] [employer] [facility] [address] [place] [id number] Dec, Hypothyroidism, unspecified type E03.9 ; Depression, unspecified depression type F32.9 ; Other chronic pain G89.29 ; Urinary retention R33.9 and Atrial fibrillation, unspecified type I48.91 [facility] [id number] [place] [address] [id number] Dec, [facility] [id number] [place] [address] [id number] Dec, Other chronic pain G89.29 [facility] [id number] [place] [address] [id number] Nov, [facility] [id number] [place] [address] [id number] Nov, Other chronic pain G89.29 [facility] [address] [place] [address] 59768- 8926 Nov, Other chronic pain G89.29 [facility] [id number] [place] [address] 12932- 4167 Nov, [facility] [id number] [place] [address] [id number]- 1024 Nov, [facility] [id number] [place] [address] 85535498- 1040 Nov, Other chronic pain G89.29 [facility] [id number] [place] [address] 51620- 1846 Nov, Other chronic pain G89.29 [facility] [id number] [place] [address] 81803- 3556 Oct, [facility] [id number] [place] [address] [id number]- 1307 Oct, Other chronic pain G89.29 [facility] [address] [place] [id number] Oct, Weakness R53.1 ; Macrocytic anemia D53.9 ; Discolored skin L81.9 ; Other chronic pain G89.29 ; Dysuria R30.0 and Hayes catheter in place Z92.89 [facility] [address] [place] [address] 77921- 2065 07 Oct, 2017 Other chronic pain G89.29 [facility] [id number] [place] [address] [id number] Sep, [facility] [id number] [place] [address] 93097- 0202 Sep, [facility] [id number] [place] [address] 94805- 8916 Sep, [facility] [id number] [place] [address] [id number] Sep, [facility] [id number] [place] [address] [id number] Sep, Other chronic pain G89.29 [facility] [id number] [place] [address] 25680- 2127 Sep, [facility] [id number] [place] [address] [phone] Sep, Other chronic pain G89.29 [facility] [place] [address] [place] [id number] Sep, Chronic urinary tract infection N39.0 ; [...] place Z92.89 [facility] [address] [address] 4[address] Sep, [facility] [id number] [place] [address] 94980- 5700 Aug, [facility] [place] [facility] [address] [facility] [id number] [address] 1620 Aug, Other chronic pain G89.29 [facility] [place] [facility] [address] [facility] [id number], [place] [address] 29[address] Aug, [facility] [place] [facility] [address] [facility] [id number] [address] 2817 Aug, [facility] [place] [facility] [id number] [place] [address] [id number] Aug, [facility] [address] [place] [address] 46121- 1432 Aug, [facility] [place] [facility] [address] [place] [address] 25585- 9120 Aug, Type 2 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 mellitus without complication, 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 [facility] [id number] [place] [address] 20296- 1670 Aug, Other chronic pain G89.29 [facility] [address] [place] [address] 31967- 2605 18 Aug, 2017 [facility] [place] [facility] [address] [place] [address] 21957- 2754 16 Aug, 2017 [facility] [address] [address] 6953 22 Jul, 2017 Other chronic pain G89.29 [facility] [address], [place] [address] 7548 19 Jul, 2017 [facility] [address] [address] 4851 19 Jul, 2016 Dark brown urine R82.99 [facility] [address] [address]- 8313 19 Jul, 2017 Dark brown urine R82.99 [facility] [address], [place] [address] 8424 Jul, [facility] [address] [place] [address] 75753- 6017 Jun, Other chronic pain G89.29 [facility] [id number] [place] [address] 68329- 2075 Jun, Type 2 diabetes mellitus without complication, unspecified usp insulin use status E11.9 [facility] [id number] [place] [address] 92343- 7615 May, Candidiasis, intertrigo B37.2 [facility] [id number] [place] [address] 29780- 4955 May, Other chronic pain G89.29 [facility] [id number] [place] [address] 79404- 5507 May, [facility] [facility] [id number] [place] [address] 63947- 4721 May, [facility] [facility] [id number] [place] [address] 98261- 5174 May, Candidiasis, intertrigo B37.2 [place] [id number] [place] [address] 13918- 3144 May, Atrial fibrillation, unspecified type I48.91 [facility] [id number] [place] [address] 02943- 1850 May, Hypothyroidism, unspecified type E03.9 and Decreased renal function N28.9 [facility] [id number] [place] [address] 65838- 2933 May, Type 2 diabetes mellitus without complication, 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 [facility] [id number] [place] [address] 32716- 3243 May, Dental examination Z01.20 [facility] [id number] [place] [address] 28408- 5260 May, Chronic kidney disease (CKD), unspecified stage N18.9 ; Type 2 diabetes mellitus without complication, 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 ; Hypothyroidism, unspecified type E03.9 ; Depression, unspecified depression type F32.9 ; Anemia, unspecified type D64.9 and Ulcer L98.499 [facility] [address] [address]- 8086 May, [facility] [id number] [place] [address] 55808- 1250 Apr, Other chronic pain G89.29 [facility] [id number] [place] [address] 08082- 5710 Apr, Other chronic pain G89.29 [facility] [id number] [place] [address] 74134- 8663 March, [facility] [id number] [place] [address] 56730- 2598 March, [facility] [id number] [place] [address] 22769- 1706 March, [facility] [id number] [place] [address] 96579- 2032 March, Other chronic pain G89.29 [facility] [id number] [place] [address] 29590- 0347 March, [facility] [address] [place] [address] 01692- 5872 Feb, [facility] [id number] [place] [address] 96114- 6154 Feb, Type 2 diabetes mellitus without complication, 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 ; Candidiasis, intertrigo B37.2 ; Decubitus ulcer of left buttock, unstageable L89.320 and Pressure ulcer of contiguous region involving right buttock and hip, unspecified ulcer stage L89.40 [facility] [address], [place] [address]- 4662 Feb, Atrial fibrillation, unspecified type I48.91 [facility] [address] [facility] [id number], [place] [address]- 6762 Feb, [facility] [address] [facility] [id number], [place] [address]- 7296 Feb, [facility] [address] [id number] [address]- 8347 Feb, Other chronic pain G89.29 [facility] [address] [facility] [id number], [place] [address]- 1025 Jan, Other chronic pain G89.29 [facility] [address] [facility] [id number], [place] [address]- 5906 Dec, [facility] [address] [id number], [place] [address]- 8202 Dec, Lethargy R53.83 [facility] [address], [place] [address]- 9552 17 Dec, 2016 [facility] [address] [id number], [place] [address]- 1197 Dec, Other chronic pain G89.29 [facility] [address] [id number] [address]- 2754 Nov, [facility] [address] [id number], [place] [address]- 2727 Nov, [facility] [address] [id number], [place] [address]- 1372 Nov, Other chronic pain G89.29 [facility] [address] [facility] [id number], [place] [address]- 2941 Nov, [facility] [address] [id number], [place] [address]- 1124 Nov, [facility] [address], [place] [address]- 6616 Nov, [facility] [id number] [place] [address] 06925- 4928 Oct, Cough R05 [place] [id number] [place] [address] 39034- 0875 Oct, Urinary tract infection, site not specified N39.0 [facility] [id number] [place] [address] 70640- 4499 16 Oct, 2016 Other chronic pain G89.29 [facility] [id number] [place] [address] 08256- 8962 15 Oct, 2016 Type 2 diabetes mellitus [...] J30.89 ; Nausea R11.0 and Candidiasis B37.9 [place] [id number] [place] [address] 28999- 7114 Oct, [place] [address] [place] [address] 89497- 8961 Oct, [place] [id number] [place] [address] 52461- 6140 Oct, [facility] [facility] [id number] [place] [address] 96018- 5083 Oct, Chronic kidney disease (CKD), unspecified stage N18.9 [facility] [id number] [place] [address] 33957- 5771 Oct, [facility] [id number] [place] [address] 97978- 6156 Sep, Other chronic pain G89.29 [facility] [address] [address]- 6669 Sep, Chronic kidney disease (CKD), unspecified stage N18.9 and Senile cataract of right eye, unspecified age-related cataract type H25.9 [facility] [address], [place] [address]- 6318 Sep, [facility] [address] [place]28[address], [place] [address]- 9689 Sep, [facility] [address], [place] [address]- 3363 Sep, [facility] [id number] [place] [address] 04226- 5343 Sep, [facility] [address] [place]28[place], [place] [address]- 7644 Sep, [facility] [address] [id number], [place] [address]- 5298 Aug, [facility] [address], [place] [address]- 5195 Aug, [facility] [address], [place] [address]- 5237 Aug, [facility] [address], [place] [address]- 6013 Aug, Encounter to establish care Z76.89 ; [...] esophagitis K21.9 [facility] [address], [place] [address]- 8710 Aug, [place] [facility] [address], [place] [address]- 6389 Aug, Urinary incontinence, unspecified type R32 [place] [id number] [place] [address] 67196- 2084 Aug, [place] [id number] [place] [address] 72499- 3170 Jul, [address] [id number] Jul, Type 2 diabetes mellitus without complication, 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 ; Chronic kidney [...] Constipation, unspecified constipation type K59.00 [place] [id number] [place] [address] 14080- 8205 Jul, [place] [id number] [place] [address] 10877- 6629 16 Jul, [address] [id number] Jul, Anemia, unspecified type D64.9 ; Acute renal failure, unspecified acute renal failure type N17.9 ; Other chronic pain G89.29 ; Obstructive sleep apnea syndrome G47.33 and Type 2 diabetes mellitus without complication, unspecified usp insulin use status E11.9 [place] [id number] [place] [address] 56937- 1990 13 Jul, [id number] [place] [address] 54864- 5597 Jul, [address] [id number] [place] [address]- 2543 Jul, [facility] [id number] [place] [address], [place] [address]- 7783 Jul, [facility] [address] [facility] [id number] [place] [address]- 3202 Jul, [facility] [place] [place] [address] [place] [id number] Jun, Other chronic pain G89.29 ; Hayes catheter in place Z92.89 ; Chronic kidney disease (CKD), unspecified stage N18.9 and Blisters of multiple sites R23.8 [facility] [id number] [place] [address], [place] [address]- 5587 Jun, [facility] [address] [facility] [id number] [place] [address]- 2394 Jun, [facility] [address] [facility] [id number] [place] [address] 25043- 8745 Jun, [facility] [address] [id number] [place] [address]- 4688 Jun, [facility] [address] [facility] [id number] [place] [address], [place] [address]- 7550 Jun, [facility] [address] [facility] [id number] [place] [address]- 3061 Jun, [facility] [address] [facility] [id number], [place] [address]- 6423 Jun, [facility] [address] [id number] [place] [address]- 5899 Jun, [facility] [address] [facility] [id number] [place] [address]- 6858 Jun, [facility] [address] [facility] [id number], [place] [address]- 8582 Jun, [facility] [address] [id number], [place] [address]- 3570 Jun, [facility] [address] [facility] [id number] [place] [address]- 5999 May, [facility] [address] [facility] [id number], [place] [address]- 3252 May, [facility] [address] [facility] [id number], [place] [address]- 3043 May, Other chronic pain G89.29 [facility] [address] [place] [id number] May, Encounter to establish care Z76.89 ; [...] HISTORY Never Assessed REASON FOR VISIT FYI only PLAN OF CARE VITAL SIGNS MEDICATIONS Unknown [...] Acute Kidney Injury 08/05/16 Hospitalization History UTI, Sepsis--[facility] Hospitalization History Chest pain/SOB/A-fib 02/2017 Hospitalization History Chest pain-[facility] 04/13/17 Hospitalization History UTI, respiratory failure, altered mental status-[facility] 09/13/17
--- OUTSIDE RECORDS SUMMARY | 2018-09-17 19:52 | XMS REPORT ---
Author Author LATONYA KIM [facility] Address [address] [place] [address] Care Team Providers Care Lodge Sales Associate Name Role Phone LATONYA KIM Unavailable PROBLEMS Type Condition ICD9-CM Code LKD89-LA Code Onset Dates Condition Status SNOMED Code Problem Obstructive sleep apnea syndrome G47.33 Active 96342856 Problem Cataract H26.9 Active 455923650 Problem Gastroesophageal reflux disease without esophagitis K21.9 Active 911904641 Problem Decreased renal function N28.9 Active 73498293 Problem Ulcer L98.499 Active 157148309 Problem Perennial allergic rhinitis, unspecified allergic rhinitis trigger J30.89 Active 459852221 Problem Other chronic pain G89.29 Active 72620913 Problem Atrial fibrillation, unspecified type I48.91 Active 25003891 Problem Restless leg syndrome G25.81 Active 57824376 Problem Morbid obesity due to excess calories E66.01 Active 367444953 Problem Chronic kidney disease (CKD), unspecified stage N18.9 Active 965728478 Problem Type 2 diabetes mellitus without complication, 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 Active 13035195 Problem Closed fracture of left patella, unspecified fracture morphology, sequela S82.002S Active 49689861 Problem Depression, unspecified depression type F32.9 Active 18139615 Problem Urinary incontinence, unspecified type R32 Active 189761760 Problem Hypothyroidism, unspecified type E03.9 Active 03528875 ALLERGIES No Information SOCIAL HISTORY Never Assessed PLAN OF CARE VITAL SIGNS MEDICATIONS Unknown [...] Sepsis--[facility] Hospitalization History Chest pain/SOB/A-[facility] 02/2017 Hospitalization History Chest pain-[facility] 04/13/17 Hospitalization History UTI, respiratory failure, altered mental status-[facility] 09/13/17
--- OUTSIDE RECORDS SUMMARY | 2018-09-17 19:52 | XMS REPORT ---
Author Author LATONYA KIM Organization [facility] Address [address] [place] [address] Care Team Providers Care Police Or Patrol Park Officer Name Role Phone LATONYA KIM Unavailable PROBLEMS Type Condition ICD9-CM Code TPS47-II Code Onset Dates Condition Status SNOMED Code Problem Atrial fibrillation, unspecified type I48.91 Active 83713112 Problem Decreased renal function N28.9 Active 96912441 Problem Ulcer L98.499 Active 430740950 Problem Venous stasis dermatitis of both lower extremities I87.2 Active 83736766 Problem Urinary incontinence, unspecified type R32 Active 701171402 Problem Stage 4 chronic kidney disease N18.4 Active 033893415 Problem Morbid obesity due to excess calories E66.01 Active 037066626 Problem Closed fracture of left patella, unspecified fracture morphology, sequela S82.002S Active 14233016 Problem Bladder spasms N32.89 Active 091116357 Problem Chronic fatigue R53.82 Active 63227804 Problem Primary insomnia F51.01 Active 5784350 Problem Anxiety F41.9 Active 23357985 Problem Type 2 diabetes mellitus without complication, unspecified [facility] insulin use status E11.9 Active 10110614 Problem Depression, unspecified depression type F32.9 Active 52561101 Problem Cataract H26.9 Active 499290612 Problem Chronic kidney disease (CKD), unspecified stage N18.9 Active 508191187 Problem Gastroesophageal reflux disease without esophagitis K21.9 Active 544859958 Problem Other chronic pain G89.29 Active 98789086 Problem Hypothyroidism, unspecified type E03.9 Active 76787693 Problem Restless leg syndrome G25.81 Active 57102440 Problem Obstructive sleep apnea syndrome G47.33 Active 11074828 Problem Perennial allergic rhinitis, unspecified allergic rhinitis trigger J30.89 Active 498140811 ALLERGIES No Information ENCOUNTERS Encounter Location Date Diagnosis [facility] [address] [facility] [id number] [address] Apr, [facility] [id number], [place] [address] Apr, [facility] [address], [place] [address] Apr, Primary insomnia F51.01 [place] [address], [place] [address] Apr, [place] [address] [place] [address] 29223- 2637 March, Other chronic pain G89.29 [facility] [address] [place] [id number] March, Arthralgia, unspecified joint M25.50 ; Abnormal urine sediment R82.90 ; Venous stasis dermatitis of both lower extremities I87.2 ; Stage 4 chronic kidney disease N18.4 and Cataract of right eye, unspecified cataract type H26.9 [place] [address], [place] [address] March, Primary insomnia F51.01 [facility] [address] [place] [id number] March, Cervicalgia M54.2 ; Acute pain of right shoulder M25.511 and Pain of left femur M89.8X5 [place] [id number], [place] [address] March, [place] [address] [place] [address] 46038- 3710 March, Other chronic pain G89.29 [place] [id number], [place] [address] Feb, [facility] [address] [place] [id number] Feb, Leg swelling M79.89 [facility] [id number], [place] [address] 9758 Feb, Primary insomnia F51.01 [facility] [address] [place] [id number] Feb, Fever in other diseases R50.81 and Intermittent left lower quadrant abdominal pain R10.32 [place] [id number] [place] [address] 50007- 9260 Feb, [place] [id number] [place] [address] 98053- 8153 Feb, [place] [address] [address]- [address] Feb, Depression, unspecified depression type F32.9 ; Hypothyroidism, unspecified type E03.9 ; Type 2 diabetes mellitus without complication, unspecified 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 and Anxiety F41.9 [place] [id number] [place] [address] 75005- 6097 Feb, Other chronic pain G89.29 [place] [address] [id number] Jan, Other chronic pain G89.29 [place] [id number] [place] [address] 33125- 4519 Jan, Bladder spasms N32.89 [place] [id number] [place] [address] 55736- 5139 Jan, Bladder spasms N32.89 [place] [id number] [place] [address] 34029- 6338 Dec, Bladder spasms N32.89 [place] [id number] [place] [address] 91513- 3980 Dec, Depression, unspecified depression type F32.9 [place] [id number] [place] [address] 41729- 8727 Dec, [facility] [employer] [employer] [address] [place] [id number] Dec, Hypothyroidism, unspecified type E03.9 ; Depression, unspecified depression type F32.9 ; Other chronic pain G89.29 ; Urinary retention R33.9 and Atrial fibrillation, unspecified type I48.91 [facility] [id number] [place] [id number] Dec, [facility] [id number] [place] [address] [id number] Dec, Other chronic pain G89.29 [facility] [id number] [place] [address] [id number] Nov, [facility] [id number] [place] [address] [id number] Nov, Other chronic pain G89.29 [facility] [id number] [place] [address] 46364- 0091 Nov, Other chronic pain G89.29 [place] [id number] [place] [address] 36941- 9510 Nov, [facility] [id number] [place] [address] 29856337- 0961 Nov, [facility] [address] [place] [address] 15464841- 1132 Nov, Other chronic pain G89.29 [facility] [id number] [place] [address] [id number]- 8806 Nov, Other chronic pain G89.29 [facility] [address] [place] [address] [id number]- 6933 Oct, [facility] [address] [place] [address] [id number]- 0424 Oct, Other chronic pain G89.29 [facility] [address] [place] [id number] Oct, Weakness R53.1 ; Macrocytic anemia D53.9 ; Discolored skin L81.9 ; Other chronic pain G89.29 ; Dysuria R30.0 and Hayes catheter in place Z92.89 [facility] [address] [place] [address] 92320- 3784 Oct, Other chronic pain G89.29 [facility] [address] [id number] [id number] Sep, [facility] [address] [facility] [id number], [place] [address] 4[address] Sep, [facility] [address] [facility] [id number], [place] [address] 9844 Sep, [facility] [id number] [place] [address] [id number] Sep, [facility] [address] [id number] [id number] Sep, Other chronic pain G89.29 [facility] [id number], [place] [address]- 6695 Sep, [facility] [address] [id number] [id number] Sep, Other chronic pain G89.29 [facility] [address] [place] [id number] Sep, Chronic urinary tract infection N39.0 ; [...] Z87.81 and Hayes catheter in place Z92.89 [facility] [id number], [place] [address] 5766 Sep, [facility] [address] [facility] [id number], [place] [address] 3777 Aug, [facility] [id number], [place] [address] 1057 Aug, Other chronic pain G89.29 [facility] [address], [place] [address] 1992 Aug, [facility] [place] [facility] [address], [place] [address] 1139 Aug, [facility] [place] [facility] [employer] [facility] [address] [id number] [id number] Aug, [facility] [address] [place] [address] 17612- 6875 Aug, [facility] [address] [place] [address] 75675- 4885 Aug, Type 2 diabetes mellitus without complication, unspecified 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 [facility] [address], [place] [address] 3077 Aug, Other chronic pain G89.29 [facility] [address], [place] [address]- 0825 18 Aug, 2017 [facility] [address] [place] [address] 79108- 3928 16 Aug, 2017 [facility] [address] [place] [address] 50665- 1685 22 Jul, 2017 Other chronic pain G89.29 [facility] [address], [place] [address]- 8177 19 Jul, 2017 [facility] [address], [place] [address]- 5537 19 Jul, 2017 Dark brown urine R82.99 [facility] [address], [place] [address]- 5001 19 Jul, 2017 Dark brown urine R82.99 [facility] [address], [place] [address]- 9200 14 Jul, 2017 [facility] [address], [place] [address]- 8815 Jun, Other chronic pain G89.29 [facility] [address] [id number], [place] [address]- 0919 Jun, Type 2 diabetes mellitus without complication, unspecified 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 [place] [id number] [place] [address] 61593- 8788 May, Candidiasis, intertrigo B37.2 [place] [id number] [place] [address] 43383- 4241 May, Other chronic pain G89.29 [place] [id number] [place] [address] 58894- 3028 May, [place] [id number] [place] [address] 74330- 7613 May, [place] [id number] [place] [address] 03985- 9594 May, Candidiasis, intertrigo B37.2 [place] [id number] [place] [address] 00153- 6374 May, Atrial fibrillation, unspecified type I48.91 [place] [id number] [place] [address] 40500- 8523 May, Hypothyroidism, unspecified type E03.9 and Decreased renal function N28.9 [place] [id number] [place] [address] 51858- 1680 May, Type 2 diabetes mellitus without complication, unspecified 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 [place] [id number] [place] [address] 14189- 1792 May, Dental examination Z01.20 [place] [id number] [place] [address] 98456- 1721 May, Chronic kidney disease (CKD), unspecified stage N18.9 ; Type 2 diabetes mellitus without complication, unspecified [facility] insulin use status E11.9 ; Hypothyroidism, unspecified type E03.9 ; Depression, unspecified depression type F32.9 ; Anemia, unspecified type D64.9 and Ulcer L98.499 [facility] [address], [place] [address]- 6320 May, [facility] [id number] [place] [address] 17418- 4966 Apr, Other chronic pain G89.29 [facility] [address], [place] [address]- 8791 Apr, Other chronic pain G89.29 [facility] [id number] [place] [address] 83029- 1396 March, [facility] [id number] [place] [address] 14744- 3656 March, [facility] [id number] [place] [address] 52349- 2377 March, [facility] [id number] [place] [address] 86249- 9717 March, Other chronic pain G89.29 [facility] [address] [place] [address] 47628- 8406 March, [facility] [id number] [place] [address] 44552- 8310 Feb, [facility] [address] [place] [address] 21333- 5062 Feb, Type 2 diabetes mellitus without complication, unspecified [facility] insulin use status E11.9 ; Candidiasis, intertrigo B37.2 ; Decubitus ulcer of left buttock, unstageable L89.320 and Pressure ulcer of contiguous region involving right buttock and hip, unspecified ulcer stage L89.40 [facility] [id number] [place] [address] 11323- 7249 Feb, Atrial fibrillation, unspecified type I48.91 [facility] [address], [place] [address]- 4318 Feb, [facility] [id number] [place] [address] 68678- 8356 Feb, [facility] [address], [place] [address]- 6963 Feb, Other chronic pain G89.29 [facility] [address], [place] [address] 2546 Jan, Other chronic pain G89.29 [facility] [address], [place] [address]- 1306 Dec, [facility] [address], [place] [address] 2540 Dec, Lethargy R53.83 [facility] [address] [place] [address] 86313- 6486 17 Dec, 2016 [facility] [address], [place] [address]- 9148 Dec, Other chronic pain G89.29 [facility] [address], [place] [address]- 0933 Nov, [facility] [address], [place] [address]- 1160 Nov, [facility] [address], [place] [address]- 5910 Nov, Other chronic pain G89.29 [facility] [address], [place] [address]- 8716 Nov, [facility] [address], [place] [address] 2544 Nov, [facility] [address], [place] [address]- 4841 Nov, [facility] [address], [place] [address]- 254 Oct, Cough R05 [facility] [address] [address] 2042 Oct, Urinary tract infection, site not specified N39.0 [place] [address] [place] [address] 68582- 5137 16 Oct, 2016 Other chronic pain G89.29 [place] [id number] [place] [address] 56352- 1348 15 Oct, 2016 Type 2 diabetes mellitus without complication, unspecified [facility] insulin use status E11.9 ; Other chronic [...] J30.89 ; Nausea R11.0 and Candidiasis B37.9 [place] [id number] [place] [address] 91025- 6731 Oct, [place] [id number] [place] [address] 59886- 9659 Oct, [place] [id number] [place] [address] 60875- 9224 Oct, [place] [id number] [place] [address] 05644- 8207 Oct, Chronic kidney disease (CKD), unspecified stage N18.9 [place] [address] [place] [address] 70058- 6489 Oct, [place] [id number] [place] [address] 07406- 8298 Sep, Other chronic pain G89.29 [place] [address] [place] [address] 38369- 9524 Sep, Chronic kidney disease (CKD), unspecified stage N18.9 and Senile cataract of right eye, unspecified age-related cataract type H25.9 [facility] [address], [place] [address]- 3322 Sep, [facility] [address], [place] [address]- 1354 Sep, [facility] [address], [place] [address]- 1217 Sep, [facility] [id number] [place] [address] 28373- 1732 Sep, [facility] [address] [place] [address] 60634- 6358 Sep, [facility] [id number] [place] [address] 59865- 2614 Aug, [facility] [address], [place] [address]- 9648 Aug, [facility] [address], [place] [address]- 3346 Aug, [facility] [address], [place] [address]- 4909 18 Aug, 2016 Encounter to establish care Z76.89 ; Other chronic pain G89.29 ; Chronic kidney disease (CKD), unspecified stage N18.9 ; Obstructive sleep apnea syndrome G47.33 ; Type 2 diabetes mellitus without complication, unspecified 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 ; Urinary incontinence, unspecified type R32 ; Depression, unspecified depression type F32.9 ; History of femur fracture Z87.81 ; History of fractured kneecap Z87.81 ; Hypothyroidism , unspecified type E03.9 ; Cataract H26.9 and Gastroesophageal reflux disease without esophagitis K21.9 [facility] [address], [place] [address]- 9697 14 Aug, 2016 [facility] [address], [place] [address]- 7357 Aug, Urinary incontinence, unspecified type R32 [facility] [id number], [place] [address]- 0119 Aug, [place] [address] [place] [address] 94773- 5212 Jul, [address] [id number] Jul, Type 2 diabetes mellitus without complication, unspecified [facility] insulin use status E11.9 ; Chronic kidney [...] E03.9 and Constipation, unspecified constipation type K59.00 [address] [place] [address] 36302- 6846 Jul, [place] [id number] [place] [address] 71767- 0833 16 Jul, [address] [id number] Jul, Anemia, unspecified type D64.9 ; Acute renal failure, unspecified acute renal failure type N17.9 ; Other chronic pain G89.29 ; Obstructive sleep apnea syndrome G47.33 and Type 2 diabetes mellitus without complication, unspecified [facility] insulin use status E11.9 [place] [address], [place] [address]- 6055 Jul, [place] [id number] [place] [address] 07924- 2034 Jul, [place] [id number] [place] [address] 63764- 5393 Jul, [place] [id number] [place] [address] 76817- 7131 Jul, [facility] [address] [id number] [place] [address]- 2163 Jul, [facility] [address] [place] [id number] Jun, Other chronic pain G89.29 ; Hayes catheter in place Z92.89 ; Chronic kidney disease (CKD), unspecified stage N18.9 and Blisters of multiple sites R23.8 [facility] [address] [id number] [place] [address]- 3229 Jun, [facility] [address] [id number] [place] [address]- 9203 Jun, [facility] [address] [id number] [place] [address]- 5478 Jun, [facility] [address] [id number] [place] [address]- 1432 Jun, [facility] [address] [id number] [place] [address]- 1490 Jun, [facility] [address] [id number] [place] [address]- 4191 Jun, [facility] [address] [facility] [id number] [place] [address]- 3348 Jun, [facility] [address] [id number] [place] [address]- 8393 Jun, [facility] [address] [id number] [place] [address]- 5375 Jun, [facility] [address] [id number] [place] [address]- 2032 Jun, [facility] [address] [facility] [id number] [place] [address]- 0479 Jun, [facility] [address] [facility] [id number] [place] [address]- 8741 May, [facility] [address] [facility] [id number] [place] [address]- 3005 May, [facility] [address] [facility] [id number] [place] [address]- 4574 May, Other chronic pain G89.29 [facility] [address] [place] [id number] May, Encounter to establish care Z76.89 ; [...] SOCIAL HISTORY Never Assessed REASON FOR VISIT Lidocaine refill PLAN OF CARE VITAL SIGNS MEDICATIONS Medication [...] History Chest pain/SOB/A-fib 02/2017 Hospitalization History Chest pain-[facility] 04/13/17 Hospitalization History UTI, respiratory failure, altered mental status-[facility] 09/13/17
--- OUTSIDE RECORDS SUMMARY | 2018-09-17 19:53 | XMS REPORT ---
Author Author LATONYA KIM [facility] Address [address] [place] [address] Care Team Providers Care Human Service Coordinator Name Role Phone LATONYA KIM Unavailable PROBLEMS Type Condition ICD9-CM Code TFZ74-GY Code Onset Dates Condition Status SNOMED Code Problem Restless leg syndrome G25.81 Active 75858010 Problem Atrial fibrillation, unspecified type I48.91 Active 25912908 Problem Perennial allergic rhinitis, unspecified allergic rhinitis trigger J30.89 Active 401328243 Problem Primary insomnia F51.01 Active 5181280 Problem Closed fracture of left patella, unspecified fracture morphology, sequela S82.002S Active 91219674 Problem Anxiety F41.9 Active 45519371 Problem Decreased renal function N28.9 Active 53261607 Problem Ulcer L98.499 Active 557053645 Problem Bladder spasms N32.89 Active 736286015 Problem Chronic fatigue R53.82 Active 22985303 Problem Cataract H26.9 Active 863662614 Problem Chronic kidney disease (CKD), unspecified stage N18.9 Active 646569293 Problem Morbid obesity due to excess calories E66.01 Active 888095816 Problem Urinary incontinence, unspecified type R32 Active 339673403 Problem Hypothyroidism, unspecified type E03.9 Active 39268689 Problem Obstructive sleep apnea syndrome G47.33 Active 65320851 Problem Type 2 diabetes mellitus without complication, unspecified usp insulin use status E11.9 Active 98505960 Problem Gastroesophageal reflux disease without esophagitis K21.9 Active 684156319 Problem Depression, unspecified depression type F32.9 Active 37305499 Problem Other chronic pain G89.29 Active 90840253 ALLERGIES No Information ENCOUNTERS Encounter Location Date Diagnosis [facility] [address] [id number] [place] [address] Feb, Primary insomnia F51.01 [facility] [address] [place] [id number] Feb, Fever in other diseases R50.81 and Intermittent left lower quadrant abdominal pain R10.32 [place] [id number] [place] [address] 76400- 3165 Feb, [place] [id number] [place] [address] 80243- 5781 Feb, [place] [address] [address] Feb, Depression, unspecified depression type F32.9 ; Hypothyroidism, unspecified type E03.9 ; 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, 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 and Anxiety F41.9 [place] [id number] [place] [address] 27641- 1516 Feb, Other chronic pain G89.29 [place] [address] [id number] Jan, Other chronic pain G89.29 [place] [address] [address]- 6873 Jan, Bladder spasms N32.89 [place] [address] [address]- 4419 Jan, Bladder spasms N32.89 [place] [id number] [place] [address] 75517- 2267 Dec, Bladder spasms N32.89 [place] [address] [address]- 6775 Dec, Depression, unspecified depression type F32.9 [place] [address] 58[address]- 9263 Dec, [facility] [address] [place] [id number] Dec, Hypothyroidism, unspecified type E03.9 ; Depression, unspecified depression type F32.9 ; Other chronic pain G89.29 ; Urinary retention R33.9 and Atrial fibrillation, unspecified type I48.91 [facility] [id number] [id number] Dec, [facility] [id number] [place] [id number] Dec, Other chronic pain G89.29 [facility] [address] [id number] [id number] Nov, [facility] [id number] [place] [address] [id number] Nov, Other chronic pain G89.29 [facility] [address] [place] [address] 08447- 0747 Nov, Other chronic pain G89.29 [facility] [id number] [place] [address] 13190- 2842 Nov, [facility] [id number] [place] [address] 06076- 8172 Nov, [facility] [id number] [place] [address] [id number]- 0098 Nov, Other chronic pain G89.29 [facility] [address] [place] [address] 552999- 0966 Nov, Other chronic pain G89.29 [facility] [id number] [place] [address] [id number]- 3438 Oct, [facility] [address] [place] [address] [id number]- 3396 Oct, Other chronic pain G89.29 [facility] [address] [place] [id number] Oct, Weakness R53.1 ; Macrocytic anemia D53.9 ; Discolored skin L81.9 ; Other chronic pain G89.29 ; Dysuria R30.0 and Hayes catheter in place Z92.89 [facility] [address] [address] Oct, Other chronic pain G89.29 [facility] [id number] [id number] Sep, [facility] [address] [facility] [id number] [address] 04[address] Sep, [facility] [address] [address] 6122 Sep, [facility] [id number] [place] [address] [id number] Sep, [facility] [id number] [place] [address] [id number] Sep, Other chronic pain G89.29 [facility] [address] [address] Sep, [facility] [id number] [place] [address] [id number] Sep, Other chronic pain G89.29 [address] [place] [address] [facility] [address] [place] [id number] Sep, Chronic urinary tract infection N39.0 ; [...] Z92.89 [facility] [address] [id number] [address]- 0351 Sep, [facility] [address]005[address]100[place] [address]- 2875 Aug, [facility] [address] [id number] [address] 8983 Aug, Other chronic pain G89.29 [facility] [address] [address] 0722 Aug, [facility] [place] [facility] [address] [facility] [id number] [address] 8[address] Aug, [facility] [place] [facility] [id number] [place] [address] [id number] Aug, [facility] [place] [facility] [address]00565100[place] [address]- 5249 Aug, [facility] [place] [facility] [id number] [place] [address] 52702- 9765 Aug, Type 2 diabetes mellitus without complication, unspecified usp insulin use status E11.9 [facility] [place] [facility] [id number] [place] [address] 58004- 3394 Aug, Other chronic pain G89.29 [facility] [place] [facility] [address]005[address] [address]- 3981 18 Aug, 2017 [facility] [place] [facility] [id number] [place] [address] 78787- 2815 16 Aug, [address] [facility] [place] [facility] [id number] [place] [address] 45701- 3544 22 Jul, 2017 Other chronic pain G89.29 [facility] [address]00565[address] [address]- 1623 19 Jul, [address] [facility] [place] [facility] [address] [address]- 7763 19 Jul, 2017 Dark brown urine R82.[address] [facility] [address] [address]- 5298 19 Jul, 2017 Dark brown urine R82.[address] [facility] [address]00565[address] [address]- 1514 14 Jul, 2017 [facility] [address]00565100[place] [address]- 7640 Jun, Other chronic pain G89.[address] 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 [place] [id number] [place] [address] 89228- 3829 May, Candidiasis, intertrigo B37.2 [place] [address] [address] [id number] [place] [address] 25207- 4290 May, Other chronic pain G89.29 [place] [id number] [place] [address] 59413- 9008 May, [place] [address] [id number] [place] [address] 18896- 2697 May, [place] [id number] [place] [address] 94951- 2670 May, Candidiasis, intertrigo B37.2 [place] [address] [id number] [place] [address] 76653- 0825 May, Atrial fibrillation, unspecified type I48.91 [place] [address] [address] [id number] [place] [address] 70458- 9371 May, Hypothyroidism, unspecified type E03.9 and Decreased renal function N28.9 [place] [address] [id number] [place] [address] 59841- 4050 May, 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, 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 [place] [address] [id number] [place] [address] 98602- 8321 May, Dental examination Z01.20 [place] [id number] [place] [address] 40907- 5351 May, Chronic kidney disease (CKD), unspecified stage N18.9 ; Type 2 diabetes mellitus without complication, unspecified usp insulin use status E11.9 ; Hypothyroidism, unspecified type E03.9 ; Depression, unspecified depression type F32.9 ; Anemia, unspecified type D64.9 and Ulcer L98.499 [place] [address] [address]- 6981 May, [facility] [address] [address]- 6984 Apr, Other chronic pain G89.29 [facility] [address]100[place] [address]- 8471 Apr, Other chronic pain G89.29 [facility] [address] [id number] [address]- 1433 March, [facility] [address]100[place] [address]- 5904 March, [facility] [id number] [place] [address] 16672- 6170 March, [facility] [address]005[address]100[place] [address]- 1310 March, Other chronic pain G89.29 [facility] [address]005[address] [address]- 5388 March, [facility] [address]100[place] [address]- 9176 Feb, [facility] [address] [address]- 6725 Feb, Type 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 without complication, 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 ; Candidiasis, intertrigo B37.2 ; Decubitus ulcer of left buttock, unstageable L89.320 and Pressure ulcer of contiguous region involving right buttock and hip, unspecified ulcer stage L89.40 [facility] [address] [address]- 1543 Feb, Atrial fibrillation, unspecified type I48.91 [facility] [address]005[address] [address]- 4121 Feb, [facility] [address]005[address]100[place] [address]- 0784 Feb, [facility] [address] [address]- 0806 Feb, Other chronic pain G89.29 [facility] [address] [address]- 5634 Jan, Other chronic pain G89.29 [facility] [address] [address]- 4573 Dec, [facility] [address] [place] [address] 45357- 4456 Dec, Lethargy R53.83 [facility] [address] [place] [address] 87357- 3006 Dec, [facility] [address] [address]- 1206 Dec, Other chronic pain G89.29 [facility] [address] [address]- 0921 Nov, [facility] [address]100[place] [address]- 2428 Nov, [facility] [id number] [place] [address] 16290- 5086 Nov, Other chronic pain G89.29 [facility] [address] [address]- 7474 Nov, [facility] [address] [address]- 8372 Nov, [facility] [address] [address]- 7948 Nov, [facility] [address] [address]- 3102 Oct, Cough R05 [facility] [address] [address]- 8243 Oct, Urinary tract infection, site not specified N39.0 [place] [id number] [place] [address] 39877- 3764 16 Oct, 2016 Other chronic pain G89.29 [place] [address] [id number] [place] [address] 43616- 0545 15 Oct, 2016 Type 2 diabetes mellitus [...] Nausea R11.0 and Candidiasis B37.9 [place] [address] [id number] [place] [address] 11800- 2705 Oct, [place] [id number] [place] [address] 51094- 3380 Oct, [place] [id number] [place] [address] 07235- 6908 Oct, [place] [id number] [place] [address] 15890- 9633 Oct, Chronic kidney disease (CKD), unspecified stage N18.9 [place] [id number] [place] [address] 25453- 3265 Oct, [place] [id number] [place] [address] 30543- 7089 Sep, Other chronic pain G89.29 [place] [address] [id number] [place] [address] 34304- 3433 Sep, Chronic kidney disease (CKD), unspecified stage N18.9 and Senile cataract of right eye, unspecified age-related cataract type H25.9 [place] [address] [address]- 0541 17 Sep, 2016 [facility] [address] [address]- 9770 Sep, [facility] [address] [address]- 7469 Sep, [facility] [id number] [place] [address] 34268- 6155 Sep, [facility] [id number] [place] [address] 07268- 8943 Sep, [facility] [id number] [place] [address] 68340- 7891 Aug, [facility] [id number] [place] [address] 31116- 2217 Aug, [facility] [id number] [place] [address] 11504- 5109 Aug, [facility] [address]005[address] [address]- 7347 Aug, Encounter to establish care Z76.89 ; [...] reflux disease without esophagitis K21.9 [facility] [address] [address]- 1973 14 Aug, 2016 [facility] [address] [address]- 1564 Aug, Urinary incontinence, unspecified type R32 [facility] [address] [address]- 6694 Aug, [place] [address] [place] [address] 60493- 3401 Jul, [address] [id number] Jul, Type 2 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 mellitus without complication, 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 ; Chronic [...] Constipation, unspecified constipation type K59.00 [place] [address] [place] [address] 90888- 5335 Jul, [place] [address] [place] [address] 13221- 6759 16 Jul, [address] [id number] Jul, Anemia, unspecified type D64.9 ; Acute renal failure, unspecified acute renal failure type N17.9 ; Other chronic pain G89.29 ; Obstructive sleep apnea syndrome G47.33 and Type 2 diabetes mellitus without complication, 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 [place] [address] [address]- 5944 Jul, [place] [address] [id number] [place] [address] 98958- 7651 Jul, [place] [id number] [place] [address] 30157- 0240 Jul, [place] [id number] [place] [address] 89660- 5283 07 Jul, 2016 [place] [address] [id number] [place] [address]- 8545 Jul, [facility] [address] [place] [id number] Jun, Other chronic pain G89.29 ; Hayes catheter in place Z92.89 ; Chronic kidney disease (CKD), unspecified stage N18.9 and Blisters of multiple sites R23.8 [facility] [id number] [place] [address], [place] [address]- 0860 Jun, [facility] [address] [id number] [place] [address]- 3497 Jun, [facility] [address] [id number] [place] [address]- 1809 Jun, [facility] [address] [id number] [place] [address]- 3859 Jun, [facility] [address] [id number] [place] [address]- 8739 Jun, [facility] [address] [id number] [place] [address]- 9435 Jun, [facility] [address] [id number] [place] [address]- 8302 Jun, [facility] [address] [id number] [place] [address]- 2942 Jun, [facility] [address] [id number] [place] [address]- 0858 Jun, [facility] [address] [id number] [place] [address]- 4202 Jun, [facility] [address] [id number] [place] [address]- 6545 Jun, [facility] [address] [id number] [place] [address]- 3478 May, [facility] [address] [id number] [place] [address]- 1163 May, [facility] [address] [facility] [id number] [place] [address]- 5370 May, Other chronic pain G89.29 [facility] [address] [place] [id number] May, Encounter to establish care Z76.89 ; [...] Assessed REASON FOR VISIT Controlled Med Refill 07/19/17 PLAN OF CARE VITAL SIGNS MEDICATIONS Medication Instructions Dosage Frequency Start Date End Date Duration Status Oxycodone-Acetaminophen 10-325 MG Orally 4 times a day 1 tablet as needed 6h Jun, 28 days Active RESULTS No [...]
--- OUTSIDE RECORDS SUMMARY | 2018-09-17 19:53 | XMS REPORT ---
Author Author ROSE ZALDIVAR [facility] Address [address] [place] [address] Care Team Providers Care Wool Carder Name Role Phone ROSE ZALDIVAR Unavailable PROBLEMS Type Condition ICD9-CM Code LMH84-CC Code Onset Dates Condition Status SNOMED Code Problem Cataract H26.9 Active 806408394 Problem Restless leg syndrome G25.81 Active 23592587 Problem Other chronic pain G89.29 Active 83021076 Problem Bladder spasms N32.89 Active 770733036 Problem Chronic fatigue R53.82 Active 49552429 Problem Atrial fibrillation, unspecified type I48.91 Active 66469543 Problem Perennial allergic rhinitis, unspecified allergic rhinitis trigger J30.89 Active 994590787 Problem Decreased renal function N28.9 Active 36132767 Problem Ulcer L98.499 Active 785353601 Problem Morbid obesity due to excess calories E66.01 Active 316928474 Problem Urinary incontinence, unspecified type R32 Active 391454171 Problem Closed fracture of left patella, unspecified fracture morphology, sequela S82.002S Active 38597139 Problem Depression, unspecified depression type F32.9 Active 55751224 Problem Hypothyroidism, unspecified type E03.9 Active 30164529 Problem Chronic kidney disease (CKD), unspecified stage N18.9 Active 894624981 Problem Obstructive sleep apnea syndrome G47.33 Active 34769442 Problem Type 2 diabetes mellitus without complication, unspecified 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 insulin use 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 E11.9 Active 70769891 Problem Gastroesophageal reflux disease without esophagitis K21.9 Active 677641070 ALLERGIES No Information ENCOUNTERS Encounter Location Date Diagnosis [facility] [address] [facility] [id number] [address] Feb, Other chronic pain G89.29 [facility] [address] [id number] [id number] Jan, Other chronic pain G89.29 [facility] [address] [id number] [address] Jan, Bladder spasms N32.89 [facility] [address] [address] Jan, Bladder spasms N32.89 [facility] [address], [place] [address] Dec, Bladder spasms N32.89 [facility] [address], [place] [address] Dec, Depression, unspecified depression type F32.9 [facility] [address], [place] [address] Dec, [facility] [address] [facility] [place] [id number] Dec, Hypothyroidism, unspecified type E03.9 ; Depression, unspecified depression type F32.9 ; Other chronic pain G89.29 ; Urinary retention R33.9 and Atrial fibrillation, unspecified type I48.91 [facility] [id number] [id number] Dec, [facility] [address] [id number] [id number] Dec, Other chronic pain G89.29 [facility] [id number] [id number] Nov, [facility] [id number] [address] Nov, Other chronic pain G89.29 [facility] [address] [id number], [place] [address] Nov, Other chronic pain G89.29 [facility] [address], [place] [address] 18[address] Nov, [facility] [address], [place] [address] 8[address] Nov, [facility] [address] [id number], [place] [address] Nov, Other chronic pain G89.29 [facility] [address] [address] Nov, Other chronic pain G89.29 [facility] [address], [place] [address] 14 Oct, 2017 [facility] [address] [place] [address] 7903 Oct, Other chronic pain G89.29 [facility] [facility] [address] [facility] [place] [id number] Oct, Weakness R53.1 ; Macrocytic anemia D53.9 ; Discolored skin L81.9 ; Other chronic pain G89.29 ; Dysuria R30.0 and Hayes catheter in place Z92.89 [facility] [address], [place] [address] Oct, Other chronic pain G89.29 [facility] [id number] [place] [id number] Sep, [facility] [address], [place] [address] Sep, [facility] [address] [id number], [place] [address] Sep, [facility] [id number] [place] [id number] Sep, [facility] [id number] [place] [id number] Sep, Other chronic pain G89.29 [facility] [address], [place] [address] Sep, [facility] [address] [id number] [address] Sep, Other chronic pain G89.29 [facility] [address] [place] [id number] Sep, Chronic urinary tract infection N39.0 ; [...] [facility] [address] [id number], [place] [address] Sep, [facility] [id number] [place] [address]- 9808 Aug, [facility] [id number] [place] [address] 62621- 7594 Aug, Other chronic pain G89.29 [facility] [id number] [place] [address] 33[address]- 4647 Aug, [facility] [id number] [place] [address] 10231- 6598 Aug, [facility] [id number] [place] [id number] Aug, [facility] [address], [place] [address] Aug, [facility] [address] [id number], [place] [address] Aug, Type 2 diabetes mellitus without complication, unspecified custodial insulin use status E11.9 [facility] [id number] [place] [address]- 9092 Aug, Other chronic pain G89.29 [facility] [address] [id number], [place] [address] Aug, [facility] [address] [id number], [place] [address] 9[address] 16 Aug, 2017 [facility] [address], [place] [address] 22 Jul, 2017 Other chronic pain G89.29 [facility] [address], [place] [address]46 Jul, [facility] [address], [place] [address] 4[address] Jul, Dark brown urine R82.99 [facility] [address], [place] [address] Jul, Dark brown urine R82.99 [facility] [address], [place] [address] 6[address] 14 Jul, 2017 [facility] [address], [place] [address] 7[address] Jun, Other chronic pain G89.29 [facility] [address], [place] [address] 6[address] Jun, Type 2 diabetes mellitus without complication, unspecified custodial insulin use status E11.9 [facility] [address], [place] [address] May, Candidiasis, intertrigo B37.2 [facility] [address], [place] [address] 9115 May, Other chronic pain G89.29 [facility] [address], [place] [address] 1409 May, [facility] [address], [place] [address] 2325 May, [facility] [address], [place] [address] 8121 May, Candidiasis, intertrigo B37.2 [facility] [address], [place] [address] 3034 May, Atrial fibrillation, unspecified type I48.91 [facility] [address] [place] [address]- 5026 May, Hypothyroidism, unspecified type E03.9 and Decreased renal function N28.9 [place] [id number] [place] [address]- 0816 May, Type 2 diabetes mellitus without complication, unspecified 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 insulin use status E11.9 [place] [id number] [place] [address] 26008- 4792 May, Dental examination Z01.20 [place] [id number] [place] [address] 68808- 8726 May, Chronic kidney disease (CKD), unspecified stage N18.9 ; Type 2 diabetes mellitus without complication, unspecified 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 insulin use status E11.9 ; Hypothyroidism, unspecified type E03.9 ; Depression, unspecified depression type F32.9 ; Anemia, unspecified type D64.9 and Ulcer L98.499 [place] [id number] [place] [address] 27513- 6252 May, [id number] [place] [address]65- 2686 Apr, Other chronic pain G89.29 [place] [id number] [place] [address] 18257- 0451 Apr, Other chronic pain G89.29 [place] [id number] [place] [address] 92000- 1173 March, [id number] [place] [address] 21787- 8227 March, [address] [id number] [place] [address] 64002- 8818 March, [place] [id number] [place] [address] 35261- 0998 March, Other chronic pain G89.29 [place] [address], [place] [address] 5167 March, [facility] [id number] [place] [address] 54939- 2555 Feb, [facility] [id number] [place] [address] 34730- 9866 Feb, Type 2 diabetes mellitus without complication, unspecified custodial insulin use status E11.9 ; Candidiasis, intertrigo B37.2 ; Decubitus ulcer of left buttock, unstageable L89.320 and Pressure ulcer of contiguous region involving right buttock and hip, unspecified ulcer stage L89.40 [facility] [id number] [place] [address] 48958- 0661 Feb, Atrial fibrillation, unspecified type I48.91 [place] [id number] [place] [address] 65264- 2875 Feb, [facility] [id number] [place] [address] 38591- 8063 Feb, [facility] [id number] [place] [address] 75229- 8434 Feb, Other chronic pain G89.29 [facility] [id number] [place] [address] 79043- 0067 Jan, Other chronic pain G89.29 [facility] [address] [place] [address] 60662- 7560 Dec, [facility] [address] [place] [address] 29568- 5146 Dec, Lethargy R53.83 [facility] [id number] [place] [address] 59075- 0316 17 Dec, 2016 [facility] [address] [place] [address] 52351- 9291 10 Dec, 2016 Other chronic pain G89.29 [facility] [address] [place], [place] [address]- 7157 Nov, [facility] [address], [place] [address]- 1402 Nov, [facility] [address], [place] [address]- 0752 Nov, Other chronic pain G89.29 [facility] [address], [place] [address]- 6183 Nov, [facility] [address], [place] [address]- 5678 Nov, [facility] [address] [place] [address] 48888- 9656 Nov, [facility] [address] [place] [address] 41509- 6156 Oct, Cough R05 [facility] [address], [place] [address]- 9978 Oct, Urinary tract infection, site not specified N39.0 [facility] [address], [place] [address]- 2501 16 Oct, 2016 Other chronic pain G89.29 [facility] [address], [place] [address]- 5960 15 Oct, 2016 Type 2 diabetes mellitus without complication, unspecified 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 insulin use status E11.9 ; Other [...] J30.89 ; Nausea R11.0 and Candidiasis B37.9 [facility] [address], [place] [address]- 7443 Oct, [facility] [id number], [place] [address]- 2745 Oct, [facility] [id number] [place] [address] 50805- 2303 Oct, [facility] [address] [place] [address] 24234- 4968 Oct, Chronic kidney disease (CKD), unspecified stage N18.9 [facility] [id number] [place] [address] 47394- 2231 Oct, [facility] [id number] [place] [address] 52745- 9850 Sep, Other chronic pain G89.29 [facility] [id number] [place] [address] 44884- 9380 Sep, Chronic kidney disease (CKD), unspecified stage N18.9 and Senile cataract of right eye, unspecified age-related cataract type H25.9 [facility] [address], [place] [address]- 4102 Sep, [facility] [id number] [place] [address] 60147- 9375 Sep, [facility] [address], [place] [address]- 1687 Sep, [facility] [address] [place] [address] 76013- 7203 Sep, [facility] [id number], [place] [address]- 1269 Sep, [facility] [id number] [place] [address] 58368- 8657 Aug, [facility] [id number], [place] [address]- 3865 Aug, [facility] [id number] [place] [address] 72982- 6870 Aug, [place] [address], [place] [address]- 7374 Aug, Encounter to establish care Z76.89 ; [...] and Gastroesophageal reflux disease without esophagitis K21.9 [place] [id number] [place] [address] 25561- 1230 Aug, [place] [id number] [place] [address] 69277- 8744 Aug, Urinary incontinence, unspecified type R32 [id number] [place] [address] 38975- 9158 Aug, [place] [id number] [place] [address] 02562- 2200 Jul, [facility] [address] [place] [id number] Jul, Type 2 diabetes mellitus without complication, unspecified custodial insulin use status E11.9 ; Chronic kidney [...] E03.9 and Constipation, unspecified constipation type K59.00 [address] [place] [address] 07113- 5285 19 Jul, 2016 [facility] [id number], [place] [address]- 6480 16 Jul, [facility] [address] [address] 14 Jul, 2016 Anemia, unspecified type D64.9 ; Acute renal failure, unspecified acute renal failure type N17.9 ; Other chronic pain G89.29 ; Obstructive sleep apnea syndrome G47.33 and Type 2 diabetes mellitus without complication, unspecified custodial insulin use status E11.9 [facility] [address], [place] [address]- 8148 Jul, [facility] [id number] [place] [address] 47601- 0921 Jul, [facility] [id number] [place] [address] 78073- 1482 Jul, [facility] [address], [place] [address]- 0755 Jul, [facility] [address], [place] [address]- 6400 Jul, [facility] [address] [address] Jun, Other chronic pain G89.29 ; Hayes catheter in place Z92.89 ; Chronic kidney disease (CKD), unspecified stage N18.9 and Blisters of multiple sites R23.8 [facility] [address], [place] [address]- 3924 Jun, [facility] [address], [place] [address]- 8446 Jun, [facility] [address], [place] [address]- 9285 Jun, [facility] [address], [place] [address]- 9799 Jun, [facility] [address], [place] [address]- 5011 Jun, [facility] [id number], [place] [address]- 8101 Jun, [facility] [address], [place] [address]- 7848 Jun, [facility] [id number], [place] [address]- 4964 Jun, [facility] [address], [place] [address]- 6011 Jun, [facility] [id number], [place] [address]- 0175 Jun, [facility] [address], [place] [address]- 4992 Jun, [facility] [address], [place] [address]- 8830 May, [facility] [address], [place] [address]- 0072 May, [facility] [id number], [place] [address]- 4634 May, Other chronic pain G89.29 [facility] [address] [address] May, Encounter to establish care Z76.89 ; [...] SOCIAL HISTORY Never Assessed REASON FOR VISIT ref/ int. med PLAN OF CARE Activity Details Follow Up prn Reason:DDS / JULIANA/ VITAL SIGNS MEDICATIONS Unknown Medications RESULTS No Results PROCEDURES Procedure Date Ordered Result Body Site INTRAORL-PERIAPICAL 1 FILM [id number] June 07, 2017 SCREENING OF A PATIENT June 07, 2017 INSTRUCTIONS MEDICATIONS ADMINISTERED No Known Medications [...] Acute Kidney Injury 08/05/16 Hospitalization History UTI, Sepsis--[facility] Hospitalization History Chest pain/SOB/A-fib 02/2017 Hospitalization History Chest pain-[facility] 04/13/17 Hospitalization History UTI, respiratory failure, altered mental status-[facility] 09/13/17
[2018-09-17 19:54] LABS: BASOPHILS % (AUTO) 0 % (0-10); EOSINOPHILS % (AUTO) 0 % (0-10); HEMATOCRIT 38 % (35-52); HEMOGLOBIN 11.5 G/DL (11.5-16.0); LYMPHOCYTES # (AUTO) 0.3 X 10^3 (1.0-4.0); LYMPHOCYTES % (AUTO) 3 % (12-44); MEAN CORPUSCULAR HEMOGLOBIN 32 PG (25-34); MEAN CORPUSCULAR HGB CONC 30 G/DL (32-36); MEAN CORPUSCULAR VOLUME 105 FL (80-99); MEAN PLATELET VOLUME 11.4 FL (7.4-10.4); MONOCYTES # (AUTO) 0.6 X 10^3 (0.0-1.0); MONOCYTES % (AUTO) 6 % (0-12); NEUTROPHILS # (AUTO) 8.2 X 10^3 (1.8-7.8); NEUTROPHILS % (AUTO) 91 % (42-75); PLATELET COUNT 153 10^3/uL (130-400); RED BLOOD COUNT 3.63 10^6/uL (4.35-5.85); RED CELL DISTRIBUTION WIDTH 15.2 % (10.0-14.5)
--- NOTE | 2018-09-17 19:54 | ED General ---
General Chief Complaint: General Problems/Pain Stated Complaint: FULL BODY PAIN Source of Information: Patient (PT IS AN EXTREMELY DIFFICULT AND LIMITED HISTORIAN--SIMPLY REFUSES TO TALK/ANSWER QUESTIONS. ), EMS, [facility] Records , Old Records (ALL PMH IS FROM OLD RECORD) History of Present Illness Date Seen by Provider: Sep 17, 2018 Time Seen by Provider: 19:10 Initial Comments PT ARRIVES VIA EMS FROM [facility] REPORT THAT THEY WERE CALLED FOR "WHOLE BODY PAIN"--UNABLE TO OBTAIN ANY MORE INFORMATION THAN THAT FROM STAFF OR PT. REPEATEDLY ASKED PT WHY SHE IS HERE AND SHE SIMPLY REFUSED TO TALK/ANSWER QUESTIONS EVENTUALLY, PT DID STATE "BECAUSE I CAN'T BREATHE" --WON'T STATE HOW LONG THIS HAS BEEN GOING ON, BUT WHEN I ASKED HER IF IT STARTED TODAY SHE STATES "NO" -- PT DOES NOT APPEAR DYSPNEIC AND CAN TALK IN SENTENCES. AFTER REPEATEDLY ASKING HER IF SHE HURT ANYWHERE, AND TO POINT TO WHERE SHE HURTS, SHE MINIMALLY MOVES HER LEFT ARM AND POINTS TO LEFT MID/UPPER ABDOMEN PT IS NOT CONFUSED, SHE SIMPLY REFUSES TO TALK. UNABLE TO OBTAIN EVEN YES/NO ANSWERS FROM HER ABOUT ANYTHING ELSE. KEEPS EYES CLOSED MOST OF THE TIME. PT IS DNR PCP: DR. CALLOWAY/[facility] Allergies and Home Medications Allergies Coded Allergies: Sulfa (Sulfonamide Antibiotics) (Verified Allergy, Unknown, 05/24/16) divalproex sodium (Verified Allergy, Unknown, 05/24/16) tetracycline (Unverified Adverse Reaction, Unknown, 03/03/17) Home Medications Acetaminophen 325 Mg Tablet, 650 MG PO Q4H PRN for PAIN-MILD TO MODERATE, ( Reported) Apixaban 5 Mg Tablet, 5 MG PO BID, (Reported) Ascorbate Calcium 500 Mg Tablet, 500 MG PO 1200, (Reported) Cyanocobalamin 1,000 Mcg/Ml Inj, 1,000 MCG IM MONTHLY ON THE 1ST, (Reported) Diltiazem HCl 120 Mg Cap.er.24h, 120 MG PO DAILY, (Reported) Docusate Sodium 100 Mg Capsule, 100 MG PO HS, (Reported) Fluticasone Propionate 16 Gm Atlantic.susp, 2 SPRAYS NS BID, (Reported) Evelyn Root 250 Mg Capsule, 250 MG PO Q12H PRN for STOMACH UPSET, (Reported) Levothyroxine Sodium 125 Mcg Tablet, 125 MCG PO DAILY, (Reported) Lidocaine 5 Gm Cream..g., TOP BID PRN for SKIN SORE PAIN, (Reported) Liraglutide 0.6 Mg/0.1 Ml Pen.injctr, 1.8 MG SC DAILY, (Reported) Mag Hydrox/Al Hydrox/Simeth 30 Ml Oral.susp, 30 ML PO Q4H PRN for INDIGESTION, ( Reported) Magnesium Hydroxide 400 Mg/5 Ml Oral.susp, 30 ML PO DAILY PRN for CONSTIPATION- 7TH LINE, (Reported) Menthol 118 Ml Gel..ml., 1 APPLIC TP TID PRN for PAIN-MILD, (Reported) Miconazole Nitrate 142 Gm Cream..g., TP DAILY PRN for RASH, (Reported) Nystatin 15 Gm Oint...g., TOP BID, (Reported) Nystatin 60 Gm Powder, TOP BID, (Reported) Ondansetron HCl 8 Mg Tablet, 8 MG PO TID PRN for NAUSEA/VOMITING-1ST LINE, ( Reported) Oxybutynin Chloride 15 Mg Tab.er.24, 15 MG PO HS, (Reported) Oxycodone HCl/Acetaminophen 1 Each Tablet, 1 TAB PO EVERY 4-6 HOURS PRN for PAIN -MODERATE, (Reported) Polyethylene Glycol 3350 119 Gm Powder, 17 GM PO DAILY PRN for CONSTIPATION-2ND LINE, (Reported) Sevelamer Carbonate 800 Mg Tablet, 800 MG PO TIDWM, (Reported) Silver Sulfadiazine 25 Gm Cream..g., TOP BID, (Reported) Sodium Chloride 44 Ml Atlantic, 2 SPRAYS NS Q4H PRN for CONGESTION, (Reported) Triamcinolone Acet 15 Gm Oint, TOP BID, (Reported) Vortioxetine Hydrobromide 20 Mg Tablet, 20 MG PO DAILY, (Reported) Patient Home Medication List Home Medication List Reviewed: Yes Review of Systems Review of Systems Constitutional: other (PER HPI) Respiratory: see HPI Cardiovascular: see HPI Gastrointestinal: see HPI Past Fipncjk-Kergli-Irdmgs Hx Patient Social History Former Smoker, Quit: Aug 05, 1985 2nd Hand Smoke Exposure: No Recent Foreign Travel: No Contact w/Someone Who Travel: No Recent Hopitalizations: Yes Immunizations Up To Date Tetanus Booster (TDap): More than 5yrs PED Vaccines UTD: No Date of Pneumonia Vaccine: Nov 22, 2015 Date of Influenza Vaccine: Sep 15, 2017 Seasonal Allergies Seasonal Allergies: No Past Medical History Surgeries: Yes (LEFT HIP REPLACEMENT; BILAT SHOULDER SURGERIES; MULTIPLE LITHOTRIPSIES AND OPEN KIDNEY STONE REMOVAL; BILATERAL NEPHROSTOMY TUBES/LATER REMOVED; EGD; CARDIAC CATH--NO INTERVENTION BUT HAD POST-PROCEDURE REPAIR OF ILIAC ARTERY) Cardiac, Gallbladder, Joint Replacement, Orthopedic, Pacemaker, Renal, Tonsillectomy, Vascular Surgery Respiratory: Yes (history of respiratory failure with hypoxia and hypercarbia; CHRONIC HYPOVENTILATION DUE TO MORBID OBESITY. COPD--HOME O2 AT 2L/NC) Asthma, Sleep Apnea, COPD Currently Using CPAP: Yes (ALTHOUGH IS UNCLEAR IF SHE IS ON CPAP OR BIPAP) Currently Using BIPAP: No Cardiac: Yes ( PACEMAKER; CHF; CT--NO INTERVENTION BUT POST-PROCEDURE REPAIR OF ILIAC ARTERY. ) Atrial Fibrillation, Chronic Edema/Swelling, Coronary Artery Disease, Heart Attack, Hypertension Neurological: Yes (HAD 1 SEIZURE AFTER SHE TOOK DEPAKOTE--DOES NOT KNOW WHY SHE WAS PUT ON DEPAKOTE) Neuropathy Reproductive Disorders: No Female Reproductive Disorders: Denies Sexually Transmitted Disease: No HIV/AIDS: No Genitourinary: Yes (CHRONIC INDWELLING CARDONA, ESWL) Kidney Infection, Bladder Infection, Kidney Stones, Renal Failure, UTI-Chronic Gastrointestinal: Yes (GASTRITIS--FOUND ON EGD; VENTRAL HERNIA) Abdominal Hernia, Gastroesophageal Reflux Musculoskeletal: Yes (CARPAL TUNNEL; PT IS BED BOUND DUE TO MORBID OBESITY AND CHRONIC GENERALIZED PAIN; LEFT KNEE FX; LEFT HIP REPLACEMENT; BILATERAL SHOULDER SURGERIES) Degenerate Disk Disease, Arthritis, Fibromyalgia, Chronic Back Pain, Fractures Endocrine: Yes (MORBID OBESITY; HX OF EXTREME NON-COMPLIANCE PRIOR TO ADMIT TO GROUP HOME. 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) Cataract Loss of Vision: Right Hearing Impairment: Denies Cancer: No Psychosocial: Yes Depression Integumentary: Yes (Previous skin breakdown) Recent Skin Changes Blood Disorders: No Adverse Reaction/Blood Tranf: No Family Medical History Arthritis G8 SISTER Bleeding disorder G8 BROTHER Cardiovascular disease G8 SISTER Diabetes mellitus 19 MOTHER FH: brain tumor 19 FATHER Hypertension G8 SISTER G8 SISTER G8 SISTER Kidney disease 19 MOTHER Thyroid disease G8 SISTER Heart Disease, CAD Over 55 Years Old, DVT/PE, Hypertension, Renal Disease Physical Exam Vital Signs Vital Signs - First Documented 09/18/18 09/18/18 00:00 00:10 Temp 100.0 Pulse 89 Resp 20 B/P (MAP) 163/78 (106) Pulse Ox 94 O2 Delivery Nasal Cannula O2 Flow Rate 3.00 FiO2 0 Capillary Refill : Height, Weight, BMI Height: 5'6.00" Weight: 410lbs. 5.0oz. 186.978790py; 63.8 BMI Method:Estimated General Appearance: Obese (MORBIDLY), Other (REEKS OF OLD URINE. EXTREMELY POOR EFFORT TO DO EVEN THE MOST MINIMAL THINGS. ) HEENT: Other (DRY ORAL MUCOSA) Respiratory: Normal Breath Sounds, No Accessory Muscle Use, No Respiratory Distress, Decreased Breath Sounds (IN BASES) Cardiovascular: Irregularly Irregular Gastrointestinal: Non Tender, Soft Extremity: Other (UNABLE TO DETERMINE IF PEDAL EDEMA IS PRESENT DUE TO BODY HABITUS) Neurologic/Psychiatric: No Motor/Sensory Deficits (APPEARS TO HAVE MOVEMENT OF ALL EXTREMITIES ALTHOUGH EFFORT IS EXTREMELY POOR), Other (MOSTLY KEEPS EYES CLOSED, BUT WILL OCCASIONALLY OPEN THEM TO SAY A FEW WORDS, AFTER I HAD REPEATED THE SAME QUESTIONS TO HER MULITPLE TIMES. SPEECH CLEAR. PT DOES NOT APPEAR CONFUSED, BUT WILL NOT ANSWER QUESTIONS TO DEFINITELY DETERMINE LEVEL OF ORIENTATION. ) Skin: Normal Color, Warm/Dry Focused Exam Lactate Level 09/17/18 19:40: Lactic Acid Level 2.30*H 09/17/18 21:49: Lactic Acid Level 1.64 Lactic Acid Level Procedures/Interventions Date of ETT Placement: Sep 13, 2017 Time of ETT Placement: 1450 Progress/Results/Core Measures Suspected Sepsis SIRS Temperature: Pulse: Respiratory Rate: Laboratory Tests 09/17/18 19:40: White Blood Count 9.0 09/18/18 05:28: Blood Pressure / Mean: 09/17/18 19:40: Lactic Acid Level 2.30*H 09/17/18 21:49: Lactic Acid Level 1.64 Laboratory Tests 09/17/18 19:40: Creatinine 2.08H, INR Comment 1.6H, Platelet Count 153, Total Bilirubin 0.9 09/18/18 05:28: Results/Orders Lab Results Laboratory Tests Test 09/17/18 19:40 09/17/18 19:47 09/17/18 21:49 09/18/18 05:28 Range/Units White Blood Count 9.0 4.3-11.0 10^3/uL Red Blood Count 3.63 L 4.35-5.85 10^6/uL Hemoglobin 11.5 11.5-16.0 G/DL Hematocrit 38 35-52 % Mean Corpuscular Volume 105 H 80-99 FL Mean Corpuscular Hemoglobin 32 25-34 PG Mean Corpuscular Hemoglobin Concent 30 L 32-36 G/DL Red Cell Distribution Width 15.2 H 10.0-14.5 % Platelet Count 153 130-400 10^3/uL Mean Platelet Volume 11.4 H 7.4-10.4 FL Neutrophils (%) (Auto) 91 H 42-75 % Lymphocytes (%) (Auto) 3 L 12-44 % Monocytes (%) (Auto) 6 0-12 % Eosinophils (%) (Auto) 0 0-10 % Basophils (%) (Auto) 0 0-10 % Neutrophils # (Auto) 8.2 H 1.8-7.8 X 10^3 Lymphocytes # (Auto) 0.3 L 1.0-4.0 X 10^3 Monocytes # (Auto) 0.6 0.0-1.0 X 10^3 Eosinophils # (Auto) 0.0 0.0-0.3 10^3/uL Basophils # (Auto) 0.0 0.0-0.1 10^3/uL Neutrophils % (Manual) 48 % Lymphocytes % (Manual) 4 % Monocytes % (Manual) 1 % Metamyelocytes % 2 % Band Neutrophils 45 % Basophilic Stippling SLIGHT Blood Morphology Comment NORMAL Prothrombin Time 19.1 H 12.2-14.7 SEC INR Comment 1.6 H 0.8-1.4 Activated Partial Thromboplast Time 36 H 24-35 SEC Sodium Level 140 135-145 MMOL/L Potassium Level 4.4 3.6-5.0 MMOL/L Chloride Level 103 98-107 MMOL/L Carbon Dioxide Level 24 21-32 MMOL/L Anion Gap 13 5-14 MMOL/L Blood Urea Nitrogen 32 H 7-18 MG/DL Creatinine 2.08 H 0.60-1.30 MG/DL Estimat Glomerular Filtration Rate 24 BUN/Creatinine Ratio 15 Glucose Level 332 H 70-105 MG/DL Lactic Acid Level 2.30 *H 1.64 0.50-2.00 MMOL/L Calcium Level 10.9 H 8.5-10.1 MG/DL Corrected Calcium 11.5 H 8.5-10.1 MG/DL Magnesium Level 2.5 H 1.8-2.4 MG/DL Total Bilirubin 0.9 0.1-1.0 MG/DL Aspartate Amino Transf (AST/SGOT) 12 5-34 U/L Alanine Aminotransferase (ALT/SGPT) 12 0-55 U/L Alkaline Phosphatase 81 40-136 U/L Troponin I < 0.30 <0.30 NG/ML B-Type Natriuretic Peptide 401.6 H <100.0 PG/ML Total Protein 7.1 6.4-8.2 GM/DL Albumin 3.2 3.2-4.5 GM/DL Amylase Level 3 L 25-125 U/L Lipase < 4 L 8-78 U/L Urine Color YELLOW Urine Clarity VERY CLOUDY H Urine pH 8 5-9 Urine Specific [place] 1.010 L 1.016-1.022 Urine Protein 3+ H NEGATIVE Urine Glucose (UA) 4+ H NEGATIVE Urine Ketones 1+ H NEGATIVE Urine Nitrite POSITIVE H NEGATIVE Urine Bilirubin NEGATIVE NEGATIVE Urine Urobilinogen NORMAL NORMAL MG/DL Urine Leukocyte Esterase 3+ H NEGATIVE Urine RBC (Auto) 5+ H NEGATIVE Urine RBC NONE /HPF Urine WBC 30-50 /HPF Urine Crystals PRESENT H /LPF Urine Triple Phosphate Crystals FEW H /LPF Urine Bacteria LARGE H /HPF Urine Casts NONE /LPF Urine Mucus NEGATIVE /LPF Urine Culture Indicated YES My Orders Orders - LUCY NICHOLS DO Saline Lock/Iv-Start (09/17/18 19:16) Ekg Tracing (09/17/18 19:16) O2 (09/17/18 19:16) Monitor-Rhythm Ecg Trace Only (09/17/18 19:16) Amylase (09/17/18 19:16) BNP (09/17/18 19:16) Cbc With Automated Diff (09/17/18 19:16) Comprehensive Metabolic Panel (09/17/18 19:16) Lactic Acid Analyzer (09/17/18 19:16) Lipase (09/17/18 19:16) Magnesium (09/17/18 19:16) Protime With Inr (09/17/18 19:16) Partial Thromboplastin Time (09/17/18 19:16) Troponin I (09/17/18 19:16) Ua Culture If Indicated (09/17/18 19:16) Blood Culture (09/17/18 19:16) Influenza A And B Antigens (09/17/18 19:16) Chest 1 View, Ap/Pa Only (09/17/18 19:16) Saline Lock/Iv-Start (09/17/18 19:16) Ns Iv 1000 Ml (Sodium Chloride 0.9%) (09/17/18 19:16) Ketorolac Injection (Toradol Injection) (09/17/18 19:30) Pantoprazole Injection (Protonix Injecti (09/17/18 19:30) Manual Differential (09/17/18 19:40) Cefepime Injection (Maxipime Injection) (09/17/18 20:15) Urine Culture (09/17/18 19:47) Ekg Tracing (09/17/18 20:57) Medications Given in ED Current Medications Medications Dose Ordered Sig/Stefanie Route Start Time Stop Time Status Last Admin Dose Admin Cefepime HCl 2000 mg/Sodium Chloride 50 ml @ 100 mls/hr ONCE ONCE IV 09/17/18 20:15 09/17/18 20:44 DC 09/17/18 20:44 100 MLS/HR Ketorolac Tromethamine 30 mg ONCE ONCE IVP 09/17/18 19:30 09/17/18 19:31 DC 09/17/18 20:23 30 MG Pantoprazole 40 mg ONCE ONCE IV 09/17/18 19:30 09/17/18 19:31 DC 09/17/18 20:23 40 MG Sodium Chloride 1,000 ml @ 0 mls/hr Q0M ONCE IV 09/17/18 19:16 09/17/18 19:18 DC 09/17/18 20:23 1,000 MLS/HR Vital Signs/I&O 09/18/18 09/18/18 09/18/18 09/18/18 00:00 00:10 01:17 01:28 Temp 100.0 Pulse 89 89 103 Resp 20 B/P (MAP) 163/78 (106) Pulse Ox 94 94 95 O2 Delivery Nasal Cannula Nasal Cannula O2 Flow Rate 3.00 3.00 FiO2 0 28 09/18/18 09/18/18 09/18/18 02:00 02:14 04:00 Temp 99.8 98.9 Pulse 85 93 Resp 20 20 B/P (MAP) 157/81 (106) 161/84 (109) Pulse Ox 95 95 95 O2 Delivery Nasal Cannula Nasal Cannula Nasal Cannula O2 Flow Rate 3.00 3.00 3.00 Capillary Refill : Progress Note : Progress Note NO DETERIORATION IN PT'S CONDITION DURING ER STAY ECG Initial ECG Impression Date: Sep 17, 2018 Initial ECG Impression Time: 19:18 Initial ECG Rate: 102 Initial ECG Rhythm: A Fib/Flutter (RBBB/LAFB) EKG : EKG Time: 21:12 Rate: 114 Rhythm: A Fib/Flutter (RBBB/LAFB) ECG Comparisson: Unchanged Diagnostic Imaging Comments CXR--INCREASING CARDIAC SIZE, DIFFUSE INTERSTITIAL AND MODULAR ALVEOLAR INFILTRATES THROUGHOUT LEFT LUNG, NO INFILTRATE ON RIGHT, PER RADIOLOGIST REPORT @ 195 Reviewed: Reviewed by Wy Departure Communication (Admissions) 2054--SPOKE WITH DR. RASMUSSEN, [facility], ACCEPTS PT FOR ADMIT. Impression Primary Impression: LEFT SIDED PNEUMONIA Additional Impressions: Sepsis UTI (urinary tract infection) due to urinary indwelling Cardona catheter Morbid obesity IDDM (insulin dependent diabetes mellitus) Disposition: ADMITTED INPATIENT Condition: Stable Admissions Decision to Admit Reason: Admit from ER (General) Decision to Admit/Date: Sep 17, 2018 Time/Decision to Admit Time: 21:00 Departure-Patient Inst. Referrals: [facility] (PCP/Family) Primary Care Physician LUCY NICHOLS DO Sep 17, 2018 19:54
--- OUTSIDE RECORDS SUMMARY | 2018-09-17 19:54 | XMS REPORT ---
Author Author LATONYA KIM [facility] Address [address] [place] [address] Care Team Providers Care Director Speech And Hearing Name Role Phone LATONYA KIM Unavailable PROBLEMS Type Condition ICD9-CM Code PAM69-WK Code Onset Dates Condition Status SNOMED Code Problem Cataract H26.9 Active 057058294 Problem Restless leg syndrome G25.81 Active 43878426 Problem Other chronic pain G89.29 Active 94413693 Problem Bladder spasms N32.89 Active 789535744 Problem Chronic fatigue R53.82 Active 58803198 Problem Atrial fibrillation, unspecified type I48.91 Active 96277089 Problem Perennial allergic rhinitis, unspecified allergic rhinitis trigger J30.89 Active 149824662 Problem Decreased renal function N28.9 Active 07727074 Problem Ulcer L98.499 Active 168490370 Problem Morbid obesity due to excess calories E66.01 Active 409563739 Problem Urinary incontinence, unspecified type R32 Active 607074239 Problem Closed fracture of left patella, unspecified fracture morphology, sequela S82.002S Active 30091703 Problem Depression, unspecified depression type F32.9 Active 89606850 Problem Hypothyroidism, unspecified type E03.9 Active 78261344 Problem Chronic kidney disease (CKD), unspecified stage N18.9 Active 790058920 Problem Obstructive sleep apnea syndrome G47.33 Active 19821615 Problem Type 2 diabetes mellitus without complication, unspecified ad terminal makeup operator insulin use status E11.9 Active 91002898 Problem Gastroesophageal reflux disease without esophagitis K21.9 Active 065606673 ALLERGIES No Information ENCOUNTERS Encounter Location Date Diagnosis [facility] [address] [facility] [id number] [address] Feb, Other chronic pain G89.29 [facility] [address] [id number] [id number] Jan, Other chronic pain G89.29 [facility] [address] [address] Jan, Bladder spasms N32.89 [facility] [address] [address] Jan, Bladder spasms N32.89 [facility] [address] [address] Dec, Bladder spasms N32.89 [facility] [address] [address] Dec, Depression, unspecified depression type F32.9 [facility] [address] [place] [address] 31078- 9921 Dec, [facility] [address] [facility] [place] [id number] Dec, Hypothyroidism, unspecified type E03.9 ; Depression, unspecified depression type F32.9 ; Other chronic pain G89.29 ; Urinary retention R33.9 and Atrial fibrillation, unspecified type I48.91 [facility] [id number] [id number] Dec, [facility] [id number] [place] [id number] Dec, Other chronic pain G89.29 [facility] [id number] [id number] Nov, [facility] [address] [id number] [id number] Nov, Other chronic pain G89.29 [facility] [address] [address] 0[address] Nov, Other chronic pain G89.29 [facility] [address] [address] 8[address] Nov, [facility] [address] [address] Nov, [facility] [id number] [address] Nov, Other chronic pain G89.29 [facility] [address] [address] 8821 Nov, Other chronic pain G89.29 [facility] [address] [address] 14 Oct, 2017 [facility] [address] [place] [id number]- 7118 Oct, Other chronic pain G89.29 [facility] [address] [facility] [place] [id number] Oct, Weakness R53.1 ; Macrocytic anemia D53.9 ; Discolored skin L81.9 ; Other chronic pain G89.29 ; Dysuria R30.0 and Hayes catheter in place Z92.89 [facility] [address] [address] 14[address] Oct, Other chronic pain G89.29 [facility] [id number] [place] [address] [id number] Sep, [facility] [address] [address] 6045 Sep, [facility] [address] [address] Sep, [facility] [id number] [place] [id number] Sep, [facility] [id number] [place] [address] [id number] Sep, Other chronic pain G89.29 [facility] [address] [address] 88[address] Sep, [facility] [address] [id number] [address] Sep, Other chronic pain G89.29 [facility] [address] [place] [id number] Sep, Chronic urinary tract infection N39.0 ; Other chronic pain G89.29 ; Chronic kidney disease (CKD), unspecified stage N18.9 ; Type 2 diabetes mellitus without complication, unspecified ad terminal makeup operator insulin use status E11.9 ; Hypothyroidism, unspecified type E03.9 ; Depression, unspecified depression type F32.9 ; Cataract H26.9 ; Obstructive sleep apnea syndrome G47.33 ; Atrial fibrillation, unspecified type I48.91 ; History of femur fracture Z87.81 and [address] catheter in place Z92.89 [facility] [id number] [place] [address] [id number]- 6888 Sep, [facility] [id number] [place] [address] 91676- 7007 Aug, [facility] [id number] [place] [address] 58674- 6789 Aug, Other chronic pain G89.29 [facility] [id number] [place] [address] 12626- 0879 Aug, [facility] [id number] [place] [address] 14932- 4953 Aug, [facility] [id number] [place] [address] [id number] Aug, [facility] [address] [place] [address] 91911- 2549 Aug, [facility] [id number] [place] [address] 37398- 4806 Aug, Type 2 diabetes mellitus without complication, unspecified usp insulin use status E11.9 [facility] [id number] [place] [address] 35294- 5706 Aug, Other chronic pain G89.29 [facility] [id number] [place] [address] 48255- 7646 Aug, [facility] [address] [id number] [address] 16 Aug, 2017 [facility] [address] [address] 0[address] Jul, Other chronic pain G89.29 [facility] [address] [address] Jul, [facility] [address] [place] [address] 79198- 9912 Jul, Dark brown urine R82.99 [facility] [address] [place] [address] 96394- 2677 Jul, Dark brown urine R82.99 [facility] [id number] [place] [address] 57304- 8077 Jul, [facility] [address] [place] [address] 06514- 7517 Jun, Other chronic pain G89.29 [facility] [address] [address] Jun, Type 2 diabetes mellitus without complication, unspecified usp insulin use status E11.9 [facility] [address] [place] [address] 22002- 9145 May, Candidiasis, intertrigo B37.2 [facility] [address] [address] 2446 May, Other chronic pain G89.29 [facility] [address] [address] 0679 May, [facility] [address] [place] [address] 46280- 4336 May, [facility] [address] [place] [address] 80930- 3118 May, Candidiasis, intertrigo B37.2 [facility] [address] [place] [address] 61904- 0506 May, Atrial fibrillation, unspecified type I48.91 [place] [address] 5140 May, Hypothyroidism, unspecified type E03.9 and Decreased renal function N28.9 [place] [facility] [id number] [place] [address] 22302- 6974 May, Type 2 diabetes mellitus without complication, unspecified ad terminal makeup operator insulin use status E11.9 [facility] [id number] [place] [address] 06490- 8359 May, Dental examination Z01.20 [place] [facility] [id number] [place] [address] 03164- 6441 May, Chronic kidney disease (CKD), unspecified stage N18.9 ; Type 2 diabetes mellitus without complication, unspecified ad terminal makeup operator insulin use status E11.9 ; Hypothyroidism, unspecified type E03.9 ; Depression, unspecified depression type F32.9 ; Anemia, unspecified type D64.9 and Ulcer L98.499 [place] [id number] [place] [address] 77251- 7856 May, [place] [id number] [place] [address] 89580- 0445 Apr, Other chronic pain G89.29 [place] [facility] [id number] [place] [address] 46411- 1895 Apr, Other chronic pain G89.29 [address] [address] [place] [address] 04517- 3946 March, [place] [facility] [id number] [place] [address] 62619- 1197 March, [place] [facility] [id number] [place] [address] 69989- 8509 March, [place] [facility] [id number] [place] [address] 90707- 6616 March, Other chronic pain G89.29 [place] [address] [address]- 7637 March, [facility] [id number] [place] [address] 86057- 7446 Feb, [facility] [id number] [place] [address] 25591- 1648 Feb, Type 2 diabetes mellitus without complication, unspecified ad terminal makeup operator insulin use status E11.9 ; Candidiasis, intertrigo B37.2 ; Decubitus ulcer of left buttock, unstageable L89.320 and Pressure ulcer of contiguous region involving right buttock and hip, unspecified ulcer stage L89.40 [facility] [id number] [place] [address] 66422- 3842 Feb, Atrial fibrillation, unspecified type I48.91 [facility] [id number] [place] [address] 19644- 2908 Feb, [facility] [id number] [place] [address] 38146- 4873 Feb, [facility] [id number] [place] [address] 95005- 2176 Feb, Other chronic pain G89.29 [facility] [id number] [place] [address] 50930- 1002 Jan, Other chronic pain G89.29 [facility] [address] [place] [address] 52111- 7576 Dec, [facility] [address] [place] [address] 95313- 9311 Dec, Lethargy R53.83 [facility] [id number] [place] [address] 34356- 4499 17 Dec, 2016 [facility] [address] [place] [address] 59211- 0017 10 Dec, 2016 Other chronic pain G89.29 [facility] [address] [id number] [address]- 5520 Nov, [facility] [address] [address]- 0960 Nov, [facility] [address] [address]- 5402 Nov, Other chronic pain G89.29 [facility] [address] [place] [address] 58496- 0247 Nov, [facility] [id number] [place] [address] 26629- 5404 Nov, [facility] [id number] [place] [address] 36373- 4765 Nov, [facility] [address] [place] [address] 82107- 5534 Oct, Cough R05 [facility] [id number] [place] [address] 61117- 8829 Oct, Urinary tract infection, site not specified N39.0 [facility] [address] [place] [address] 29836- 6696 16 Oct, 2016 Other chronic pain G89.29 [facility] [address] [place] [address] 08432- 4670 15 Oct, 2016 Type 2 diabetes mellitus [...] R11.0 and Candidiasis B37.9 [facility] [address] [address]- 5893 Oct, [facility] [address] [address]- 7108 Oct, [facility] [id number] [place] [address] 84381- 7084 Oct, [facility] [id number] [place] [address] 45120- 4664 Oct, Chronic kidney disease (CKD), unspecified stage N18.9 [facility] [id number] [place] [address] 59776- 2378 Oct, [facility] [id number] [place] [address] 53851- 5848 Sep, Other chronic pain G89.29 [facility] [id number] [place] [address] 67297- 0482 Sep, Chronic kidney disease (CKD), unspecified stage N18.9 and Senile cataract of right eye, unspecified age-related cataract type H25.9 [facility] [address] [id number] [address]- 4934 Sep, [facility] [id number] [place] [address] 63077- 6936 Sep, [facility] [address] [address]- 4268 Sep, [facility] [id number] [place] [address] 41331- 8311 Sep, [facility] [address] [address]- 7146 Sep, [facility] [id number] [place] [address] 73073- 8825 Aug, [facility] [id number] [place] [address] 84067- 8776 Aug, [facility] [id number] [place] [address] 04400- 5128 Aug, [place] [facility] [id number] [place] [address] 50273- 7779 Aug, Encounter to establish care Z76.89 ; [...] reflux disease without esophagitis K21.9 [address] [id number] [place] [address] 97888- 2237 Aug, [address] [id number] [place] [address] 37678- 2193 Aug, Urinary incontinence, unspecified type R32 [place] [id number] [place] [address] 90915- 3639 Aug, [address] 82756- 5345 Jul, [facility] [address] [place] [id number] Jul, Type 2 diabetes mellitus without complication, unspecified ad terminal makeup operator insulin use status E11.9 ; Chronic [...] E03.9 and Constipation, unspecified constipation type K59.00 [id number] [place] [address] 29432- 5364 19 Jul, 2016 [facility] [address] [address]- 7724 16 Jul, 2016 [facility] [address] [place] [address] 14 Jul, 2016 Anemia, unspecified type D64.9 ; Acute renal failure, unspecified acute renal failure type N17.9 ; Other chronic pain G89.29 ; Obstructive sleep apnea syndrome G47.33 and Type 2 diabetes mellitus without complication, unspecified ad terminal makeup operator insulin use status E11.9 [facility] [address] [address]- 8776 Jul, [facility] [address] [address]- 1256 Jul, [facility] [address] [address]- 6548 Jul, [facility] [address] [address]- 8941 Jul, [facility] [address] [address]- 3140 Jul, [facility] [address] [place] [id number] Jun, Other chronic pain G89.29 ; Hayes catheter in place Z92.89 ; Chronic kidney disease (CKD), unspecified stage N18.9 and Blisters of multiple sites R23.8 [facility] [address] [address]- 9143 Jun, [facility] [address] [address]- 9439 Jun, [facility] [address], [place] [address]- 5876 Jun, [facility] [address] [address]- 5136 Jun, [facility] [address] [address]- 3986 Jun, [facility] [id number] [address]- 3906 Jun, [facility] [id number] [address]- 6508 Jun, [facility] [id number] [address]- 0696 Jun, [facility] [address] [address]- 1376 Jun, [facility] [id number] [address]- 8910 Jun, [facility] [id number] [address]- 9344 Jun, [facility] [id number] [address]- 2017 May, [facility] [id number] [address]- 9281 May, [facility] [id number] [address]- 0717 May, Other chronic pain G89.29 [facility] [address] [place] [id number] May, Encounter to establish care Z76.89 ; Type 2 diabetes mellitus without complication, unspecified ad terminal makeup operator insulin use status E11.9 ; Hypothyroidism, [...] Kidney Injury 08/05/16 Hospitalization History UTI, Sepsis--[facility] Hospitalization History Chest pain/SOB/A-fib 02/2017 Hospitalization History Chest pain-[facility] 04/13/17 Hospitalization History UTI, respiratory failure, altered mental status-[facility] 09/13/17
--- OUTSIDE RECORDS SUMMARY | 2018-09-17 19:55 | XMS REPORT ---
Author Author LATONYA KIM Organization [facility] Address [address] [place] [address] Care Team Providers Care Osha Inspector Name Role Phone LATONYA KIM Unavailable PROBLEMS Type Condition ICD9-CM Code LFY56-HN Code Onset Dates Condition Status SNOMED Code Problem Atrial fibrillation, unspecified type I48.91 Active 02976312 Problem Decreased renal function N28.9 Active 81555071 Problem Ulcer L98.499 Active 132397200 Problem Venous stasis dermatitis of both lower extremities I87.2 Active 05654463 Problem Urinary incontinence, unspecified type R32 Active 851067180 Problem Stage 4 chronic kidney disease N18.4 Active 688906738 Problem Morbid obesity due to excess calories E66.01 Active 632106041 Problem Closed fracture of left patella, unspecified fracture morphology, sequela S82.002S Active 76339790 Problem Bladder spasms N32.89 Active 036736142 Problem Chronic fatigue R53.82 Active 05810119 Problem Primary insomnia F51.01 Active 7614966 Problem Anxiety F41.9 Active 03208946 Problem Type 2 diabetes mellitus without complication, unspecified terminal operator insulin use status E11.9 Active 87430431 Problem Depression, unspecified depression type F32.9 Active 61374696 Problem Cataract H26.9 Active 641821367 Problem Chronic kidney disease (CKD), unspecified stage N18.9 Active 650307703 Problem Gastroesophageal reflux disease without esophagitis K21.9 Active 037368835 Problem Other chronic pain G89.29 Active 36302020 Problem Hypothyroidism, unspecified type E03.9 Active 42842504 Problem Restless leg syndrome G25.81 Active 32842236 Problem Obstructive sleep apnea syndrome G47.33 Active 05155376 Problem Perennial allergic rhinitis, unspecified allergic rhinitis trigger J30.89 Active 028392301 ALLERGIES No Information ENCOUNTERS Encounter Location Date Diagnosis [facility] [address] [facility] [id number] [address] March, Other chronic pain G89.29 [address] [facility] [address] [place] [id number] March, Arthralgia, unspecified joint M25.50 ; Abnormal urine sediment R82.90 ; Venous stasis dermatitis of both lower extremities I87.2 ; Stage 4 chronic kidney disease N18.4 and Cataract of right eye, unspecified cataract type H26.9 [facility] [id number] [place] [address] 86744- 0914 March, Primary insomnia F51.01 [facility] [address] [place] [id number] March, Cervicalgia M54.2 ; Acute pain of right shoulder M25.511 and Pain of left femur M89.8X5 [place] [id number] [place] [address] 85911- 7574 March, [facility] [id number] [place] [address] 14873- 2583 March, Other chronic pain G89.29 [facility] [facility] [id number] [place] [address] 18801- 4471 Feb, [facility] [address] [place] [id number] Feb, Leg swelling M79.89 [place] [id number] [place] [address] 21092- 5968 Feb, Primary insomnia F51.01 [facility] [address] [place] [id number] Feb, Fever in other diseases R50.81 and Intermittent left lower quadrant abdominal pain R10.32 [place] [id number] [place] [address] 67009- 7769 Feb, [facility] [place] [id number] [place] [address] 85298- 7013 Feb, [facility] [place] [id number] [place] [address] 16355- 2837 Feb, Depression, unspecified depression type F32.9 ; Hypothyroidism, unspecified type E03.9 ; Type 2 diabetes mellitus without complication, unspecified terminal operator insulin use status E11.9 and Anxiety F41.9 [place] [address] [address] Feb, Other chronic pain G89.29 [facility] [id number] [address] Jan, Other chronic pain G89.29 [facility] [id number] [place] [address] 20151- 9340 Jan, Bladder spasms N32.89 [facility] [id number] [place] [address] 07654- 2262 Jan, Bladder spasms N32.89 [facility] [place] [id number] [place] [address] 15140- 8317 Dec, Bladder spasms N32.89 [facility] [id number] [place] [address] 33997- 3163 Dec, Depression, unspecified depression type F32.9 [facility] [address] [place] [address] 22238- 9087 Dec, Via [facility] [address] [place] [id number] Dec, Hypothyroidism, unspecified type E03.9 ; Depression, unspecified depression type F32.9 ; Other chronic pain G89.29 ; Urinary retention R33.9 and Atrial fibrillation, unspecified type I48.91 [place] [id number] [id number] Dec, [facility] [facility] [address] [id number] [place] [address] [id number] Dec, Other chronic pain G89.29 [facility] [facility] [address] [place] [id number] [id number] Nov, [facility] [address] [id number] [place] [address] [id number] Nov, Other chronic pain G89.29 [facility] [address] [place] [address] 09378- 1918 Nov, Other chronic pain G89.29 [facility] [address] [address] Nov, [facility] [id number] [place] [address] 43444- 7343 Nov, [facility] [address] [place] [address] 75707- 5301 Nov, Other chronic pain G89.29 [facility] [id number] [place] [address] 03113- 6920 Nov, Other chronic pain G89.29 [facility] [id number] [place] [address] 938075- 2612 Oct, [facility] [id number] [place] [address] 93583- 5579 Oct, Other chronic pain G89.29 [facility] [address] [place] [id number] Oct, Weakness R53.1 ; Macrocytic anemia D53.9 ; Discolored skin L81.9 ; Other chronic pain G89.29 ; Dysuria R30.0 and Hayes catheter in place Z92.89 [facility] [address] [place] [address] 65900- 9716 Oct, Other chronic pain G89.29 [facility] [id number] [place] [address] [id number] Sep, [facility] [id number] [place] [address] 83898- 4879 Sep, [facility] [address] [place] [address] 81759- 9620 Sep, [facility] [id number] [place] [address] [id number] Sep, [facility] [id number] [address] Sep, Other chronic pain G89.29 [facility] [address] [address] 3[address] Sep, [facility] [id number] [address] Sep, Other chronic pain G89.29 [facility] [address] [facility] [place] [id number] Sep, Chronic urinary tract infection N39.0 ; Other chronic pain G89.29 ; Chronic kidney disease (CKD), unspecified stage N18.9 ; Type 2 diabetes mellitus without complication, unspecified terminal operator insulin use status E11.9 ; Hypothyroidism, unspecified type E03.9 ; Depression, unspecified depression type F32.9 ; Cataract H26.9 ; Obstructive sleep apnea syndrome G47.33 ; Atrial fibrillation, unspecified type I48.91 ; History of femur fracture Z87.81 and [address] place Z92.89 [facility] [address] [address] 655[address] Sep, [facility] [id number] [place] [address] 34673- 2487 Aug, [facility] [address] [place] [address] 08867- 3979 Aug, Other chronic pain G89.29 [facility] [address] [address] 7038 Aug, [facility] [address] [address] 0224 Aug, [facility] [id number] [place] [address] [id number] Aug, [facility] [address] [place] [address] [id number]- 9452 Aug, [facility] [id number] [place] [address] 43960- 6906 Aug, Type 2 diabetes mellitus without complication, unspecified senior living insulin use status E11.9 [facility] [address] [place] [address] 64543- 1094 Aug, Other chronic pain G89.29 [facility] [address] [place] [address] 79386- 1337 18 Aug, 2017 [facility] [id number] [place] [address] 63611- 2123 16 Aug, 2017 [facility] [id number] [place] [address] 59229- 9634 22 Jul, 2017 Other chronic pain G89.29 [facility] [id number] [place] [address] 47610- 3438 19 Jul, 2017 [facility] [id number] [place] [address] 27057- 2402 19 Jul, 2017 Dark brown urine R82.99 [facility] [id number] [place] [address] 52559- 8856 19 Jul, 2017 Dark brown urine R82.99 [facility] [id number] [place] [address] 53551- 6027 14 Jul, 2017 [facility] [address] [place] [address] 59229- 9467 Jun, Other chronic pain G89.29 [facility] [id number] [place] [address] 23311- 8106 Jun, Type 2 diabetes mellitus without complication, unspecified senior living insulin use status E11.9 [facility] [address] [place] [address] 20767- 3555 31 May, 2017 Candidiasisadriano B37.2 [facility] [address] [place] [address] 76208- 0817 May, Other chronic pain G89.29 [facility] [id number] [place] [address] 16502- 9446 May, [place] [address] [id number] [place] [address] 87117- 2539 May, [place] [id number] [place] [address] 28017- 9279 May, Candidiasis, intertrigo B37.2 [place] [id number] [place] [address] 08953- 5358 May, Atrial fibrillation, unspecified type I48.91 [place] [id number] [place] [address] 17179- 7076 May, Hypothyroidism, unspecified type E03.9 and Decreased renal function N28.9 [place] [id number] [place] [address] 20470- 9656 May, Type 2 diabetes mellitus without complication, unspecified senior living insulin use status E11.9 [place] [id number] [place] [address] 86453- 3330 May, Dental examination Z01.20 [place] [id number] [place] [address] 02474- 5527 May, Chronic kidney disease (CKD), unspecified stage N18.9 ; Type 2 diabetes mellitus without complication, unspecified senior living insulin use status E11.9 ; Hypothyroidism, unspecified type E03.9 ; Depression, unspecified depression type F32.9 ; Anemia, unspecified type D64.9 and Ulcer L98.499 [place] [id number] [place] [address] 80203- 7680 May, [facility] [facility] [address] [id number] [place] [address] 05669- 6056 Apr, Other chronic pain G89.29 [facility] [address] [id number] [place] [address] 41290- 6435 Apr, Other chronic pain G89.29 [place] [id number] [place] [address] 89780- 5605 March, [facility] [address] [address] 7571 March, [facility] [address] [place] [address] 19930- 9491 March, [facility] [address] [place] [address] 33881- 8495 March, Other chronic pain G89.29 [facility] [id number] [place] [address] 89057- 9023 March, [facility] [address] [place] [address] 58326- 5231 Feb, [facility] [address] [place] [address] 95543- 5875 Feb, Type 2 diabetes mellitus without complication, unspecified terminal operator insulin use status E11.9 ; Candidiasis, intertrigo B37.2 ; Decubitus ulcer of left buttock, unstageable L89.320 and Pressure ulcer of contiguous region involving right buttock and hip, unspecified ulcer stage L89.40 [facility] [address] [place] [address] 01207- 0995 Feb, Atrial fibrillation, unspecified type I48.91 [facility] [address] [address]- 9077 Feb, [facility] [address] [address] 1530 Feb, [facility] [address] [address]- 0472 Feb, Other chronic pain G89.29 [facility] [address] [address]- 3194 Jan, Other chronic pain G89.29 [facility] [address] [address]- 5481 Dec, [facility] [address] [address]- 6959 22 Dec, 2016 Lethargy R53.83 [facility] [address] [place] [address] 56142- 4168 17 Dec, 2016 [facility] [address] [place] [address] 08752- 8228 Dec, Other chronic pain G89.29 [facility] [id number] [place] [address] 23651- 2684 Nov, [facility] [address] [place] [address] 19026- 9976 Nov, [facility] [address] [place] [address] 69519- 1339 Nov, Other chronic pain G89.29 [facility] [id number] [place] [address] 17090- 3842 Nov, [facility] [address] [address]- 8422 Nov, [facility] [address] [place] [address] 64527- 2720 Nov, [facility] [address] [address]- 3870 Oct, Cough R05 [facility] [address] [address]- 2256 Oct, Urinary tract infection, site not specified N39.0 [facility] [address] [id number] [address]- 1626 Oct, Other chronic pain G89.29 [facility] [address] [address]- 8400 15 Oct, 2016 Type 2 diabetes mellitus [...] J30.89 ; Nausea R11.0 and Candidiasis B37.9 [place] [address] 81852- 4965 Oct, [place] [address] 02270- 8338 Oct, [place] [address] 70662- 8771 Oct, [place] [facility] [address] 11640- 0738 Oct, Chronic kidney disease (CKD), unspecified stage N18.9 [place] [address] 99391- 1497 Oct, [facility] [facility] [address] 76219- 1423 Sep, Other chronic pain G89.29 [facility] [id number] [place] [address] 84856- 7174 Sep, Chronic kidney disease (CKD), unspecified stage N18.9 and Senile cataract of right eye, unspecified age-related cataract type H25.9 [place] [id number] [place] [address] 33881- 8172 Sep, [place] [facility] [address] 85030- 0485 Sep, [facility] [id number] [place] [address] 64844- 4327 Sep, [place] [address] 50228- 4654 Sep, [facility] [address] [address]- 8135 Sep, [place] [address] [place] [address] 64965- 8372 Aug, [facility] [address] [address]- 3927 Aug, [place] [address] [id number] [place] [address] 52205- 0922 Aug, [facility] [address] [place] [address] 84458- 2586 Aug, Encounter to establish care Z76.89 ; [...] and Gastroesophageal reflux disease without esophagitis K21.9 [place] [address] [address]- 5295 Aug, [place] [address] [address]- 2760 Aug, Urinary incontinence, unspecified type R32 [facility] [address] [address]- 1445 Aug, [place] [address] [address]- 0839 Jul, [facility] [address] [place] [id number] Jul, Type 2 diabetes mellitus without complication, unspecified terminal operator insulin use status E11.9 ; Chronic [...] E03.9 and Constipation, unspecified constipation type K59.00 [place] [id number] [place] [address] 26733- 2025 Jul, [place] [address] [id number] [place] [address] 95484- 0622 16 Jul, 2016 [facility] [address] [place] [id number] Jul, Anemia, unspecified type D64.9 ; Acute renal failure, unspecified acute renal failure type N17.9 ; Other chronic pain G89.29 ; Obstructive sleep apnea syndrome G47.33 and Type 2 diabetes mellitus without complication, unspecified terminal operator insulin use status E11.9 [place] [id number] [place] [address] 97259- 8897 Jul, [place] [id number] [place] [address] 67350- 6540 Jul, [place] [id number] [place] [address] 53159- 6109 Jul, [place] [id number] [place] [address] 14184- 9071 Jul, [place] [id number] [place] [address] 04731- 8613 Jul, [facility] [place] [address] [place] [id number] Jun, Other chronic pain G89.29 ; Hayes catheter in place Z92.89 ; Chronic kidney disease (CKD), unspecified stage N18.9 and Blisters of multiple sites R23.8 [place] [id number] [place] [address] 78756- 2349 Jun, [facility] [address] [facility] [id number] [place] [address]- 4375 Jun, [facility] [address] [facility] [id number] [place] [address]- 5092 Jun, [facility] [address] [facility] [id number] [place] [address]- 7789 Jun, [facility] [address] [facility] [id number] [place] [address]- 3391 Jun, [facility] [address] [facility] [id number] [place] [address]- 9716 Jun, [facility] [address] [facility] [id number] [place] [address]- 0583 Jun, [facility] [address] [facility] [id number] [place] [address]- 6213 Jun, [facility] [id number] [place] [address]- 0080 Jun, [facility] [address] [facility] [id number] [place] [address]- 9540 Jun, [facility] [id number] [place] [address]- 1724 Jun, [facility] [id number] [address]- 9325 May, [facility] [id number] [address]- 5947 May, [facility] [address] [facility] [id number] [address]- 1408 May, Other chronic pain G89.29 [facility] [place] [address] [place] [id number] May, Encounter to establish care Z76.89 ; [...] SOCIAL HISTORY Never Assessed REASON FOR VISIT [place] admission PLAN OF CARE Activity Details Follow Up prn Reason: VITAL SIGNS MEDICATIONS Medication Instructions Dosage Frequency Start Date End Date Duration Status Renvela 800 MG Orally Three times a day 1 tablet with meals 8h 90 days Active Aspir-81 81 MG Orally Once a day 1 tablet 24h Active Pen [place] 3/16" 31G X 5 MM subcutaneously 4 times a day as directed 6h Jul, 30 days Not-Taking Lidocaine 4 % Externally Three times a day 1 application to affected area as needed 8h 19 Feb, 2017 30 days Active Hospital Bed Semi electric . . as directed Jul, Lifetime Not -Taking Oxybutynin Chloride ER 15 MG 1 tablet Once a day Orally 30 day(s) 90 Active Zofran 8 MG Orally 3 times a day 1 tablet as needed 8h 15 Oct, 2016 Active Doc-Q-Lace 100 mg Orally Once a day 1 capsule 24h Active Jaret Antifungal 2 % Externally Twice a day 1 application to affected area 12h Active Eliquis 5 mg Orally 2 times a day 1 tablet 12h 14 Feb, 2017 90 days Active Amlodipine Besylate 2.5 MG Orally Once a day 1 tablet 24h 90 Active Tamsulosin HCl 0.4 MG Orally Once a day 1 capsule 24h 90 days Active Oxycodone-Acetaminophen 10-325 MG Orally every 4-6 hours as needed 1 tablet Sep, Oct, 28 days Active Redness Reliever Eye Drops 0.05 % Ophthalmic 2 times a day 2 drops 12h Active Fluticasone Propionate 50 MCG/ACT Nasally twice a day 2 sprays in each nostril 12h 30 Active Nystatin 108729 UNIT/GM Externally Twice a day 1 application to affected area as needed 12h 31 May, 2017 Active Trintellix 10 mg orally once a day 1 tablet 24h May, Active Evelyn Root 250 MG Orally 2 times a day 1 capsule as needed for upset stomach 12h Active Silvadene 1 % Externally Once a day 1 application to affected area 24h May, Active Diltiazem CD 120 MG Orally Once a day 1 capsule 24h Active Nystatin 666894 UNIT/GM Externally Twice a day 1 application to affected area 12h Feb, 30 days Active Levothyroxine Sodium 125 MCG Orally Once a day 1 tablet 24h 30 days Active Oxygen ... by inhalation route continuous 2L Active Trintellix 10 MG Orally Once a day 1 tablet 24h Active Triamcinolone Acetonide 0.1 % Externally Twice a day 1 application to affected area 12h May, Active Vitamin C 500 mg Orally Once a day 1 tablet 24h Active Victoza 18 MG/3ML Subcutaneous Once a day INJECT 1.8 MG 24h 90 days Active Gabapentin 400 MG Orally 3 times a day 1 capsule 8h 90 days Active MiraLax N/A Orally Once a day 17 gm in 4-8 oz of fluid 24h May, Active Loratadine 10 mg Orally Once a day 1 tablet 24h 90 days Active RESULTS No Results PROCEDURES Procedure Date Ordered Result Body Site [facility] VISIT ESTABLISHED PATIENT Sep 28, 2017 INSTRUCTIONS MEDICATIONS ADMINISTERED No Known Medications [...]
--- OUTSIDE RECORDS SUMMARY | 2018-09-17 19:56 | XMS REPORT ---
Author Author LATONYA KIM [facility] Address [address] [place] [address] Care Team Providers Care Pathology Technologist Name Role Phone LATONYA KIM Unavailable PROBLEMS Type Condition ICD9-CM Code QDE74-FB Code Onset Dates Condition Status SNOMED Code Problem Restless leg syndrome G25.81 Active 22459328 Problem Atrial fibrillation, unspecified type I48.91 Active 76355880 Problem Perennial allergic rhinitis, unspecified allergic rhinitis trigger J30.89 Active 480070751 Problem Primary insomnia F51.01 Active 9817015 Problem Closed fracture of left patella, unspecified fracture morphology, sequela S82.002S Active 02215705 Problem Anxiety F41.9 Active 54941638 Problem Decreased renal function N28.9 Active 48718944 Problem Ulcer L98.499 Active 598177587 Problem Bladder spasms N32.89 Active 135111341 Problem Chronic fatigue R53.82 Active 66498385 Problem Cataract H26.9 Active 464580427 Problem Chronic kidney disease (CKD), unspecified stage N18.9 Active 177666597 Problem Morbid obesity due to excess calories E66.01 Active 999166848 Problem Urinary incontinence, unspecified type R32 Active 332041106 Problem Hypothyroidism, unspecified type E03.9 Active 88560121 Problem Obstructive sleep apnea syndrome G47.33 Active 70360805 Problem Type 2 diabetes mellitus without complication, unspecified retirement insulin use status E11.9 Active 32050158 Problem Gastroesophageal reflux disease without esophagitis K21.9 Active 886474486 Problem Depression, unspecified depression type F32.9 Active 16948267 Problem Other chronic pain G89.29 Active 62463241 ALLERGIES No Information ENCOUNTERS Encounter Location Date Diagnosis [facility] [address] [facility] [id number] [place] [address] Feb, Via [employer] [address] [place] [id number] Feb, Leg swelling M79.89 [facility] [address] [place] [address] 64544- 3600 Feb, Primary insomnia F51.01 Via [facility] [address] [place] [id number] Feb, Fever in other diseases R50.81 and Intermittent left lower quadrant abdominal pain R10.32 [facility] [id number] [place] [address] 48934- 1131 Feb, [place] [facility] [id number] [place] [address] 11380- 6861 Feb, [place] [facility] [id number] [place] [address] 95952- 3035 Feb, Depression, unspecified depression type F32.9 ; Hypothyroidism, unspecified type E03.9 ; Type 2 diabetes mellitus without complication, unspecified retirement insulin use status E11.9 and Anxiety F41.9 [place] [facility] [id number] [place] [address] 23661- 6949 Feb, Other chronic pain G89.29 [facility] [id number] [place] [address] [id number] Jan, Other chronic pain G89.29 [place] [id number] [place] [address] 31017- 8001 Jan, Bladder spasms N32.89 [place] [place] [id number] [place] [address] 60499- 4872 Jan, Bladder spasms N32.89 [facility] [id number] [place] [address] 37224- 6974 Dec, Bladder spasms N32.89 [place] [id number] [place] [address] 69450- 7551 Dec, Depression, unspecified depression type F32.9 [facility] [id number] [place] [address] 25620- 1140 13 Dec, 2017 Via [employer] [address] [place] [id number] Dec, Hypothyroidism, unspecified type E03.9 ; Depression, unspecified depression type F32.9 ; Other chronic pain G89.29 ; Urinary retention R33.9 and Atrial fibrillation, unspecified type I48.91 [facility] [id number] [place] [address] [id number] Dec, [facility] [id number] [place] [address] [id number] Dec, Other chronic pain G89.29 [facility] [id number] [place] [address] [id number] Nov, [facility] [id number] [place] [address] [id number] Nov, Other chronic pain G89.29 [facility] [address] [place] [address] 21948- 5106 Nov, Other chronic pain G89.29 [facility] [address] [place] [address] 93632- 8126 Nov, [facility] [id number] [place] [address] 33027411- 1066 Nov, [facility] [address] [place] [address] [id number]- 0260 Nov, Other chronic pain G89.29 [facility] [address] [place] [address] 15179- 3746 Nov, Other chronic pain G89.29 [facility] [address] [place] [address] 92677- 8928 Oct, [facility] [address] [place] [address] 48588201- 1048 Oct, Other chronic pain G89.29 [facility] [employer] [address] [place] [id number] Oct, Weakness R53.1 ; Macrocytic anemia D53.9 ; Discolored skin L81.9 ; Other chronic pain G89.29 ; Dysuria R30.0 and Hayes catheter in place Z92.89 [facility] [address] [place] [address] 17454- 8725 07 Oct, 2017 Other chronic pain G89.29 [facility] [id number] [place] [address] [id number] Sep, [facility] [id number] [place] [address] 34248- [address] Sep, [facility] [id number] [place] [address] 51393- 9406 Sep, [facility] [id number] [place] [address] [id number] Sep, [facility] [id number] [place] [address] [id number] Sep, Other chronic pain G89.29 [facility] [id number] [place] [address] 01593- 0530 Sep, [facility] [id number] [place] [address] [id number] Sep, Other chronic pain G89.29 Via [facility] [place] [address] [place] [id number] Sep, Chronic urinary tract infection N39.0 ; [...] Z92.89 [facility] [address] [address] 6[address] Sep, [facility] [address] [place] [address] 19241- 9518 Aug, [facility] [place] [facility] [address] [facility] [id number] [address] 7[address] Aug, Other chronic pain G89.29 [facility] [place] [facility] [address] [facility] [id number] [address] 6187 Aug, [facility] [place] [facility] [address] [facility] [id number] [address] 7481 Aug, [facility] [place] [facility] [id number] [place] [address] [id number] Aug, [facility] ROSLYNKEIKO [facility] [address] [place] [address] 67446- 4928 Aug, [facility] [place] [facility] [address] [place] [address] 91486- 6675 Aug, Type 2 diabetes mellitus without complication, 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 insulin 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 E11.9 [facility] [id number] [place] [address] 38110- 6014 Aug, Other chronic pain G89.29 [facility] [address] [place] [address] 25377- 7115 18 Aug, 2017 [facility] [place] [facility] [address] [place] [address] 81695- 4993 16 Aug, 2017 [facility] [address] [address] 3186 22 Jul, 2017 Other chronic pain G89.29 [facility] [address] [address]- 5330 19 Jul, 2017 [facility] [address] [address] 7233 19 Jul, 2016 Dark brown urine R82.99 [facility] [address]100[place] [address]- 9619 19 Jul, 2017 Dark brown urine R82.99 [facility] [address] [address]- 7836 Jul, [place] [address] [place] [address] 56229- 1158 Jun, Other chronic pain G89.29 [place] [facility] [id number] [place] [address] 15639- 7547 Jun, Type 2 diabetes mellitus without complication, unspecified retirement insulin use status E11.9 [place] [id number] [place] [address] 97671- 7679 May, Candidiasis, intertrigo B37.2 [place] [facility] [id number] [place] [address] 89987- 0965 May, Other chronic pain G89.29 [place] [id number] [place] [address] 85429- 0536 May, [place] [facility] [id number] [place] [address] 83619- 5042 May, [place] [id number] [place] [address] 74136- 4370 May, Candidiasis, intertrigo B37.2 [place] [id number] [place] [address] 82387- 5347 May, Atrial fibrillation, unspecified type I48.91 [place] [id number] [place] [address] 20435- 7120 May, Hypothyroidism, unspecified type E03.9 and Decreased renal function N28.9 [place] [facility] [id number] [place] [address] 79833- 4715 May, Type 2 diabetes mellitus without complication, 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 [address] [address]- 8875 May, [facility] [id number] [place] [address] 99969- 1366 Apr, Other chronic pain G89.29 [facility] [id number] [place] [address] 06893- 8818 Apr, Other chronic pain G89.29 [facility] [facility] [id number] [place] [address] 59757- 6086 March, [facility] [id number] [place] [address] 72835- 0709 March, [facility] [id number] [place] [address] 87420- 9648 March, [facility] [id number] [place] [address] 01843- 9517 March, Other chronic pain G89.29 [facility] [id number] [place] [address] 01659- 5379 March, [facility] [address] [place] [address] 09998- 5929 Feb, [facility] [id number] [place] [address] 91558- 1843 Feb, Type 2 diabetes mellitus without complication, 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 insulin use status E11.9 ; Candidiasis, intertrigo B37.2 ; Decubitus ulcer of left buttock, unstageable L89.320 and Pressure ulcer of contiguous region involving right buttock and hip, unspecified ulcer stage L89.40 [facility] [address] [address]- 5484 Feb, Atrial fibrillation, unspecified type I48.91 [facility] [address] [facility] [id number][place] [address]- 1176 Feb, [facility] [address] [facility] [id number], [place] [address]- 9516 Feb, [facility] [address] [id number] [address]- 8242 Feb, Other chronic pain G89.29 [facility] [address] [facility] [id number][place] [address]- 1085 Jan, Other chronic pain G89.29 [facility] [address] [facility] [id number] [address]- 6616 Dec, [facility] [address] [id number] [address]- 1540 Dec, Lethargy R53.83 [facility] [address], [place] [address]- 9573 17 Dec, 2016 [facility] [address] [id number] [address]- 8440 Dec, Other chronic pain G89.29 [facility] [address] [id number] [address]- 8865 Nov, [facility] [address] [id number] [address]- 1576 Nov, [facility] [address] [id number] [address]- 6495 Nov, Other chronic pain G89.29 [facility] [address] [facility] [id number][place] [address]- 8341 Nov, [facility] [address] [id number] [address]- 2415 Nov, [facility] [address] [address]- 2497 Nov, [facility] [id number] [place] [address] 13548- 3003 Oct, Cough R05 [place] [id number] [place] [address] 77462- 5042 Oct, Urinary tract infection, site not specified N39.0 [place] [facility] [id number] [place] [address] 27761- 8969 16 Oct, 2016 Other chronic pain G89.29 [place] [id number] [place] [address] 49796- 8756 15 Oct, 2016 Type 2 diabetes mellitus without complication, unspecified retirement insulin use status E11.9 ; Other chronic [...] Nausea R11.0 and Candidiasis B37.9 [place] [id number] [place] [address] 33195- 8638 Oct, [place] [address] [place] [address] 67411- 1474 Oct, [place] [id number] [place] [address] 44551- 3512 Oct, [place] [facility] [id number] [place] [address] 06701- 4542 Oct, Chronic kidney disease (CKD), unspecified stage N18.9 [place] [facility] [id number] [place] [address] 38798- 7372 Oct, [place] [id number] [place] [address] 65390- 3630 Sep, Other chronic pain G89.29 [facility] [address] [address]- 9182 Sep, Chronic kidney disease (CKD), unspecified stage N18.9 and Senile cataract of right eye, unspecified age-related cataract type H25.9 [facility] [address] [address]- 5689 Sep, [facility] [id number] [address]- 1020 Sep, [facility] [address] [address]- 8529 Sep, [facility] [id number] [place] [address] 90199- 0565 Sep, [facility] [id number] [address]- 3827 Sep, [facility] [id number] [address]- 6265 Aug, [facility] [address] [address]- 8854 Aug, [facility] [address] [address]- 9347 Aug, [facility] [address], [place] [address]- 3182 Aug, Encounter to establish care Z76.89 ; Other chronic pain G89.29 ; Chronic kidney disease (CKD), unspecified stage N18.9 ; Obstructive sleep apnea syndrome G47.33 ; Type 2 diabetes mellitus without complication, unspecified retirement insulin use status E11.9 ; Urinary incontinence, unspecified type R32 ; Depression, unspecified depression type F32.9 ; History of femur fracture Z87.81 ; History of fractured kneecap Z87.81 ; Hypothyroidism , unspecified type E03.9 ; Cataract H26.9 and Gastroesophageal reflux disease without esophagitis K21.9 [facility] [address] [address]- 8234 Aug, [place] [address], [place] [address]- 8409 Aug, Urinary incontinence, unspecified type R32 [place] [address] [place] [address] 38306- 0776 Aug, [place] [id number] [place] [address] 17321- 2574 Jul, [address] [id number] Jul, Type 2 diabetes mellitus without complication, 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 insulin use status E11.9 ; Chronic kidney [...] Constipation, unspecified constipation type K59.00 [place] [id number] [place] [address] 86532- 2736 Jul, [place] [id number] [place] [address] 65768- 3188 16 Jul, [address] [id number] Jul, Anemia, unspecified type D64.9 ; Acute renal failure, unspecified acute renal failure type N17.9 ; Other chronic pain G89.29 ; Obstructive sleep apnea syndrome G47.33 and Type 2 diabetes mellitus without complication, unspecified retirement insulin use status E11.9 [place] [address] [place] [address] 88232- 3172 13 Jul, 2016 [place] [id number] [place] [address] 01820- 8148 Jul, [address] [id number] [place] [address]- 0[address] Jul, [facility] [id number] [place] [address], [place] [address]- 3312 Jul, [facility] [address] [facility] [id number] [place] [address]- 9261 Jul, [facility] [address] [place] [id number] Jun, Other chronic pain G89.29 ; Hayes catheter in place Z92.89 ; Chronic kidney disease (CKD), unspecified stage N18.9 and Blisters of multiple sites R23.8 [facility] [id number] [place] [address], [place] [address]- 3034 Jun, [facility] [address] [facility] [id number] [place] [address]- [address] Jun, [facility] [address] [facility] [id number] [place] [address] 71507- 3908 Jun, [facility] [address] [id number] [place] [address]- [address] Jun, [facility] [address] [facility] [id number] [place] [address], [place] [address]- 10[address] Jun, [facility] [address] [facility] [id number] [place] [address]- 3817 Jun, [facility] [address] [facility] [id number][place] [address]- 8710 Jun, [facility] [address] [id number] [place] [address]- 7803 Jun, [facility] [address] [facility] [id number] [place] [address]- 0901 Jun, [facility] [address] [facility] [id number], [place] [address]- 7460 Jun, [facility] [address] [id number], [place] [address]- 9631 Jun, [facility] [address] [facility] [id number] [place] [address]- [address] May, [facility] [address] [facility] [id number][place] [address]- 7006 May, [facility] [address] [facility] [id number], [place] [address]- 0314 May, Other chronic pain G89.29 [facility] [place] [address] [place] [id number] May, Encounter to establish care Z76.89 ; [...] HISTORY Never Assessed REASON FOR VISIT Medication refill request PLAN OF CARE VITAL SIGNS MEDICATIONS [...] Injury 08/05/16 Hospitalization History UTI, Sepsis--[facility] Hospitalization History Chest pain/SOB/A-[facility] 02/2017 Hospitalization History Chest pain-[facility] 04/13/17 Hospitalization History UTI, respiratory failure, altered mental status-[facility] 09/13/17
--- OUTSIDE RECORDS SUMMARY | 2018-09-17 19:57 | XMS REPORT ---
Author Author LATONYA KIM [facility] Address [address] [place] [address] Care Team Providers Care Psychiatric Aide Name Role Phone LATONYA KIM Unavailable PROBLEMS Type Condition ICD9-CM Code LDS30-II Code Onset Dates Condition Status SNOMED Code Problem Cataract H26.9 Active 518916315 Problem Restless leg syndrome G25.81 Active 28533426 Problem Other chronic pain G89.29 Active 91985425 Problem Bladder spasms N32.89 Active 111686271 Problem Chronic fatigue R53.82 Active 29981982 Problem Atrial fibrillation, unspecified type I48.91 Active 71481126 Problem Perennial allergic rhinitis, unspecified allergic rhinitis trigger J30.89 Active 474241635 Problem Decreased renal function N28.9 Active 84482715 Problem Ulcer L98.499 Active 930862636 Problem Morbid obesity due to excess calories E66.01 Active 840100009 Problem Urinary incontinence, unspecified type R32 Active 909004860 Problem Closed fracture of left patella, unspecified fracture morphology, sequela S82.002S Active 74838547 Problem Depression, unspecified depression type F32.9 Active 35378654 Problem Hypothyroidism, unspecified type E03.9 Active 73525303 Problem Chronic kidney disease (CKD), unspecified stage N18.9 Active 233838180 Problem Obstructive sleep apnea syndrome G47.33 Active 82352469 Problem Type 2 diabetes mellitus without complication, unspecified funeral home associate insulin use status E11.9 Active 83057419 Problem Gastroesophageal reflux disease without esophagitis K21.9 Active 893761755 ALLERGIES No Information ENCOUNTERS Encounter Location Date Diagnosis [facility] [address] [id number] [id number] Jan, Other chronic pain G89.29 [facility] [place] [address] [facility] [id number], [place] [address] Jan, Bladder spasms N32.89 [facility] [place] [address], [place] [address] Jan, Bladder spasms N32.89 [facility] [place] [address], [place] [address] Dec, Bladder spasms N32.89 [facility] [place] [address], [place] [address] Dec, Depression, unspecified depression type F32.9 [facility] [place] [address], [place] [address] Dec, [facility] [address] [place] [id number] Dec, Hypothyroidism, unspecified type E03.9 ; Depression, unspecified depression type F32.9 ; Other chronic pain G89.29 ; Urinary retention R33.9 and Atrial fibrillation, unspecified type I48.91 [facility] [id number] [id number] Dec, [facility] [id number] [place] [id number] Dec, Other chronic pain G89.29 [facility] [id number] [id number] Nov, [facility] [id number] [address] Nov, Other chronic pain G89.29 [facility] [place] [id number] [address] Nov, Other chronic pain G89.29 [facility] [place] [address], [place] [address] Nov, [facility] [place] [address] [address] Nov, [facility] [place] [address], [place] [address] Nov, Other chronic pain G89.29 [facility] [place] [address] [facility] [id number], [place] [address] Nov, Other chronic pain G89.29 [facility] [place] [address] [facility] [id number], [place] [address] Oct, [facility] [place] [address] [id number], [place] [address] Oct, Other chronic pain G89.29 [email or web address] [address] [place] [id number] Oct, Weakness R53.1 ; Macrocytic anemia D53.9 ; Discolored skin L81.9 ; Other chronic pain G89.29 ; Dysuria R30.0 and Hayes catheter in place Z92.89 [facility] [place] [address] [id number], [place] [address] Oct, Other chronic pain G89.29 [facility] [id number] [place] [id number] Sep, [facility] [place] [address], [place] [address] 78[address] Sep, [facility] [place] [address], [place] [address] Sep, [facility] [address] [id number] [id number] Sep, [facility] [id number] [place] [id number] Sep, Other chronic pain G89.29 [facility] [place] [address] [facility] [id number], [place] [address] Sep, [facility] [id number] [place] [address] [id number] Sep, Other chronic pain G89.29 [facility] [employer] [address] [place] [id number] Sep, Chronic urinary tract infection N39.0 ; Other chronic pain G89.29 ; Chronic kidney disease (CKD), unspecified stage N18.9 ; Type 2 diabetes mellitus without complication, unspecified funeral home associate insulin use status E11.9 ; Hypothyroidism, unspecified type E03.9 ; Depression, unspecified depression type F32.9 ; Cataract H26.9 ; Obstructive sleep apnea syndrome G47.33 ; Atrial fibrillation, unspecified type I48.91 ; History of femur fracture Z87.[address] Z92.89 [facility] [place] [id number] [place] [address] 72892- 2866 Sep, [facility] [place] [id number] [place] [address] 79808- 9016 Aug, [facility] [place] [address] [address] Aug, Other chronic pain G89.29 [facility] [place] [id number] [place] [address] 33865- 6332 Aug, [facility] [place] [id number] [place] [address] 93570- 7785 Aug, [facility] [address] [id number] Aug, [facility] [place] [id number] [place] [address] 39168- 9243 Aug, [facility] [place] [id number] [place] [address] 74842- 4060 Aug, Type 2 diabetes mellitus without complication, unspecified funeral home associate insulin use status E11.9 [facility] [place] [id number] [place] [address] 01456- 0509 Aug, Other chronic pain G89.29 [facility] [place] [address] [address] Aug, [facility] [place] [id number] [place] [address] 97607- 1157 Aug, [facility] [place] [address] [address]- 1649 Jul, Other chronic pain G89.29 [facility] [place] [address], [place] [address] Jul, [facility] [place] [id number] [place] [address] 40283- 8703 Jul, Dark brown urine R82.99 [facility] [place] [address] [place] [address] 43213- 1359 Jul, Dark brown urine R82.99 [facility] [place] [id number] [place] [address] 96922- 7618 14 Jul, 2017 [facility] [place] [id number] [place] [address] 18291- 7641 Jun, Other chronic pain G89.29 [facility] [place] [address] [place] [address] 21086- 9392 Jun, Type 2 diabetes mellitus without complication, unspecified fpc insulin use status E11.9 [facility] [place] [id number] [place] [address] 46957- 8726 May, Candidiasis, intertrigo B37.2 [place] [id number] [place] [address] 85201- 9979 May, Other chronic pain G89.29 [facility] [place] [id number] [place] [address] 54330- 7655 May, [facility] [place] [id number] [place] [address] 80476- 0424 May, [facility] [place] [id number] [place] [address] 85878- 2132 May, Candidiasis, intertrigo B37.2 [facility] [place] [id number] [place] [address] 14742- 0451 May, Atrial fibrillation, unspecified type I48.91 [facility] [place] [id number] [place] [address] 08391- 5546 May, Hypothyroidism, unspecified type E03.9 and Decreased renal function N28.9 [facility] [place] [id number] [place] [address] 06663- 2442 May, Type 2 diabetes mellitus without complication, unspecified funeral home associate insulin use status E11.9 [facility] [place] [id number] [place] [address] 42898- 9137 May, Dental examination Z01.20 [facility] [place] [id number] [place] [address] 99985- 3584 May, Chronic kidney disease (CKD), unspecified stage N18.9 ; Type 2 diabetes mellitus without complication, unspecified funeral home associate insulin use status E11.9 ; Hypothyroidism, unspecified type E03.9 ; Depression, unspecified depression type F32.9 ; Anemia, unspecified type D64.9 and Ulcer L98.499 [place] [id number] [place] [address] 20472- 3249 May, [facility] [place] [id number] [place] [address] 78415- 8971 Apr, Other chronic pain G89.29 [place] [id number] [place] [address] 60360- 1573 Apr, Other chronic pain G89.29 [place] [address] [id number] [address] 4559 March, [facility] [place] [id number] [place] [address] 00954- 6503 March, [facility] [place] [id number] [place] [address] 93759- 8371 March, [facility] [place] [id number] [place] [address] 99830- 8529 March, Other chronic pain G89.29 [facility] [place] [id number] [place] [address] 03230- 2053 March, [place] [address] [place] [address] 4792 Feb, [facility] [place] [id number] [place] [address] 02907- 8446 Feb, Type 2 diabetes mellitus without complication, unspecified funeral home associate insulin use status E11.9 ; Candidiasis, intertrigo B37.2 ; Decubitus ulcer of left buttock, unstageable L89.320 and Pressure ulcer of contiguous region involving right buttock and hip, unspecified ulcer stage L89.40 [facility] [place] [id number] [place] [address] 21632- 1915 Feb, Atrial fibrillation, unspecified type I48.91 [facility] [place] [id number] [place] [address] 31567- 0890 Feb, [facility] [place] [id number] [place] [address] 29320- 0804 Feb, [facility] [place] [id number] [place] [address] 17660- 2856 Feb, Other chronic pain G89.29 [facility] [place] [id number] [place] [address] 48457- 5917 Jan, Other chronic pain G89.29 [facility] [place] [id number] [place] [address] 48643- 3712 Dec, [facility] [place] [id number] [place] [address] 43959- 4251 Dec, Lethargy R53.83 [facility] [place] [id number] [place] [address] 48660- 9369 Dec, [facility] [place] [id number] [place] [address] 80769- 8309 10 Dec, 2016 Other chronic pain G89.29 [facility] [place] [id number] [place] [address] 86786- 3214 Nov, [facility] [place] [id number] [place] [address] 97770- 2337 Nov, [facility] [place] [address], [place] [address]- 2695 Nov, Other chronic pain G89.29 [facility] [place] [address], [place] [address]- 0673 Nov, [facility] [place] [address], [place] [address]- 8182 Nov, [facility] [place] [id number] [place] [address] 24332- 7595 Nov, [facility] [place] [address] [place] [address] 53231- 8840 Oct, Cough R05 [place] [id number] [place] [address] 12812- 6727 Oct, Urinary tract infection, site not specified N39.0 [place] [id number] [place] [address] 58802- 3438 Oct, Other chronic pain G89.29 [place] [address], [place] [address]- 4780 Oct, Type 2 diabetes mellitus without complication, unspecified funeral home associate insulin use status E11.9 ; Other chronic [...] J30.89 ; Nausea R11.0 and Candidiasis B37.9 [facility] [place] [address], [place] [address]- 9385 Oct, [place] [address], [place] [address]- 8341 Oct, [facility] [place] [address], [place] [address]- 1883 Oct, [facility] [place] [id number] [place] [address] 70236- 5212 Oct, Chronic kidney disease (CKD), unspecified stage N18.9 [facility] [place] [id number] [place] [address] 78695- 3907 Oct, [facility] [place] [id number] [place] [address] 41087- 8101 Sep, Other chronic pain G89.29 [facility] [place] [id number] [place] [address] 98123- 2386 Sep, Chronic kidney disease (CKD), unspecified stage N18.9 and Senile cataract of right eye, unspecified age-related cataract type H25.9 [facility] [place] [id number] [place] [address] 91431- 9871 Sep, [facility] [place] [id number] [place] [address] 14109- 2920 Sep, [facility] [place] [id number] [place] [address] 27290- 5291 Sep, [facility] [place] [id number] [place] [address] 17692- 0731 Sep, [facility] [place] [id number] [place] [address] 02485- 4407 Sep, [facility] [place] [address] [place] [address] 27266- 9137 Aug, [facility] [place] [id number] [place] [address], [place]- 6499 Aug, [facility] [place] [address] [id number] [address]- 2916 Aug, [facility] [place] [id number] [place] [address] 47722- 0267 Aug, Encounter to establish care Z76.89 ; Other chronic pain G89.29 ; Chronic kidney disease (CKD), unspecified stage N18.9 ; Obstructive sleep apnea syndrome G47.33 ; Type 2 diabetes mellitus without complication, unspecified funeral home associate insulin use status E11.9 ; Urinary incontinence, unspecified type R32 ; Depression, unspecified depression type F32.9 ; History of femur fracture Z87.81 ; History of fractured kneecap Z87.81 ; Hypothyroidism , unspecified type E03.9 ; Cataract H26.9 and Gastroesophageal reflux disease without esophagitis K21.9 [place] [id number] [place] [address] 19379- 8357 Aug, [place] [address] 88673- 8462 Aug, Urinary incontinence, unspecified type R32 [place] [id number] [place] [address] 72996- 4906 Aug, [place] [id number] [place] [address] 87439- 7787 Jul, [facility] [address] [place] [id number] Jul, Type 2 diabetes mellitus without complication, unspecified funeral home associate insulin use status E11.9 ; Chronic kidney [...] E03.9 and Constipation, unspecified constipation type K59.00 [place] [id number] [place] [address] 23076- 4491 Jul, [place] [id number] [place] [address] 15897- 6754 Jul, [facility] [address] [place] [id number] Jul, Anemia, unspecified type D64.9 ; Acute renal failure, unspecified acute renal failure type N17.9 ; Other chronic pain G89.29 ; Obstructive sleep apnea syndrome G47.33 and Type 2 diabetes mellitus without complication, unspecified funeral home associate insulin use status E11.9 [facility] [place] [address] [place] [address] 80042- 0457 Jul, [facility] [place] [id number] [place] [address] 28610- 6271 Jul, [facility] [place] [id number] [place] [address] 69834- 4767 Jul, [facility] [place] [id number] [place] [address] 87242- 3763 Jul, [facility] [place] [id number] [place] [address] 56971- 9248 Jul, [facility] [address] [place] [id number] Jun, Other chronic pain G89.29 ; Hayes catheter in place Z92.89 ; Chronic kidney disease (CKD), unspecified stage N18.9 and Blisters of multiple sites R23.8 [facility] [place] [address] [address]- 0545 Jun, [facility] [place] [address], [place] [address]- 6540 Jun, [facility] [place] [address], [place] [address]- 4066 Jun, [facility] [place] [id number] [place] [address] 36462- 7232 Jun, [facility] [place] [address], [place] [address]- 8715 Jun, [facility] [place] [id number] [place] [address] 07921- 3018 Jun, [facility] [place] [id number] [address]- 5761 Jun, [facility] [place] [id number] [address]- 1740 Jun, [facility] [place] [id number] [address]- 1150 Jun, [facility] [place] [id number], [place] [address]- 6287 Jun, [facility] [place] [id number], [place] [address]- 7041 Jun, [facility] [place] [id number] [address]- 4628 May, [facility] [place] [id number], [place] [address]- 3113 May, [facility] [place] [id number], [place] [address]- 8004 May, Other chronic pain G89.29 [facility] [address] [place] [id number] May, Encounter to establish care Z76.89 ; [...] Frequency Start Date End Date Duration Status Eliquis 5 mg Orally 2 times a day 1 tablet 12h 14 Feb, 2017 90 days Active RESULTS No Results PROCEDURES [...] Acute Kidney Injury 08/05/16 Hospitalization History UTI, Sepsis--[facility] Hospitalization History Chest pain/SOB/A-fib 02/2017 Hospitalization History Chest pain-[facility] 04/13/17 Hospitalization History UTI, respiratory failure, altered mental status-[facility] 09/13/17
[2018-09-17 20:05] LABS: INR 1.6 (0.8-1.4); PROTHROMBIN TIME PATIENT 19.1 SEC (12.2-14.7)
[2018-09-17 20:09] LABS: BILIRUBIN,URINE NEGATIVE (NEGATIVE); CLARITY,URINE VERY CLOUDY; COLOR,URINE YELLOW; GLUCOSE, URINE (UA) 4+ (NEGATIVE); KETONES,URINE 1+ (NEGATIVE); LEUKOCYTE ESTERASE ,URINE 3+ (NEGATIVE); NITRITE,URINE POSITIVE (NEGATIVE); PH,URINE 8 (5-9); PROTEIN,URINE 3+ (NEGATIVE); UROBILINOGEN,URINE NORMAL (NORMAL)
[2018-09-17] MEDS ORDERED: CEFEPIME INJECTION 2,000 MG in NS (IVPB) 50 ML IV ONE (20:15)
[2018-09-17 20:22] LABS: ALANINE AMINOTRANSFERASE 12 U/L (0-55); ALBUMIN 3.2 GM/DL (3.2-4.5); ALKALINE PHOSPHATASE 81 U/L (40-136); AMYLASE 3 U/L (25-125); BILIRUBIN,TOTAL 0.9 MG/DL (0.1-1.0); BUN/CREATININE RATIO 15; CALCIUM 10.9 MG/DL (8.5-10.1); CARBON DIOXIDE 24 MMOL/L (21-32); CHLORIDE 103 MMOL/L (98-107); CREATININE SERUM 2.08 MG/DL (0.60-1.30); GFR ESTIMATED 24; GLUCOSE 332 MG/DL (70-105); LIPASE < 4 U/L (8-78); MAGNESIUM 2.5 MG/DL (1.8-2.4); POTASSIUM 4.4 MMOL/L (3.6-5.0); SODIUM 140 MMOL/L (135-145); TOTAL PROTEIN 7.1 GM/DL (6.4-8.2)
[2018-09-17 20:41] LABS: BACTERIA,URINE LARGE /HPF; TRIPLE PHOSPHATE CRYSTAL,UR FEW /LPF; WBC,URINE 30-50 /HPF
[2018-09-17 21:00] LABS: NEUTROPHILS % (MANUAL) 48 %
[2018-09-17 21:01] LABS: BAND NEUTROPHILS 45 %; LYMPHOCYTES % (MANUAL) 4 %; METAMYELOCYTES % 2 %; MONOCYTES % (MANUAL) 1 %; RBC MORPH NORMAL
--- OUTSIDE RECORDS SUMMARY | 2018-09-17 22:01 | XMS REPORT | Clinical Summary ---
Author Author [facility] Organization [facility] Address Unknown Phone Unavailable Care Team Providers Care Report Analyst Name Role Phone RafalAicha milton COMMERCIAL PROJECT MANAGER PCP Source Comments Some departments are not documenting in the electronic medical record. If you do not see the information that you expected, contact Release of Information in the Health Information Management department at [phone] for further assistance in locating additional records.[facility] Allergies Active Allergy Reactions Severity Noted Date [...] Overview: Added automatically from request for surgery [id number] Mature cataract 02/02/2018 Last Assessment & Plan: [...] EXAM 02/02/2019 02/02/2018 Implants Implanted Type Area Esthetician/Skin Therapist Device Expiration Model / Identifier Date Serial / Lot Lens Iol +20.5 Diopter 13mm 6mm Right: Eye [employer] 04/03/2020 ZCB00 20.5 Posterior Chamber 1 Piece - [employer] / [id number] Implanted: Qty: 1 on 05/05/2018 by / Garcia Irvin MD NA Results Not on filefrom Last 3 Months
[2018-09-18] VITALS (18 sets, daily range): BP systolic 141–188; BP diastolic 75–119
[2018-09-18] MEDS ORDERED: ACETAMINOPHEN 500 MG TAB (TYLENOL) PO PRN (00:45)
[2018-09-18] MEDS ORDERED: RT-ALBUTEROL/IPRATROPIUM 3 ML (DUONEB) VIAL ONE (01:55)
[2018-09-18] MEDS ORDERED: RT-ALBUTEROL/IPRATROPIUM 3 ML (DUONEB) VIAL INH PRN (02:00)
[2018-09-18] MEDS: RT-ALBUTEROL/IPRATROPIUM 3 ML (DUONEB) VIAL INH SCH ×6 (02:08→22:11)
[2018-09-18 05:45] LABS: BASOPHILS % (AUTO) 0 % (0-10); EOSINOPHILS % (AUTO) 0 % (0-10); HEMATOCRIT 37 % (35-52); HEMOGLOBIN 11.2 G/DL (11.5-16.0); LYMPHOCYTES # (AUTO) 0.3 X 10^3 (1.0-4.0); LYMPHOCYTES % (AUTO) 5 % (12-44); MEAN CORPUSCULAR HEMOGLOBIN 32 PG (25-34); MEAN CORPUSCULAR HGB CONC 30 G/DL (32-36); MEAN CORPUSCULAR VOLUME 105 FL (80-99); MEAN PLATELET VOLUME 11.6 FL (7.4-10.4); MONOCYTES # (AUTO) 0.5 X 10^3 (0.0-1.0); MONOCYTES % (AUTO) 7 % (0-12); NEUTROPHILS % (AUTO) 88 % (42-75); PLATELET COUNT 135 10^3/uL (130-400); RED CELL DISTRIBUTION WIDTH 15.2 % (10.0-14.5); WHITE BLOOD COUNT 6.9 10^3/uL (4.3-11.0)
--- NOTE | 2018-09-18 06:22 | History & Physicial (CHS) ---
HPI History of Present Illness: 63-year-old obese female presents to [facility] emergency department via EMS during the evening of September 17, 2018 apparently reporting to staff whole body pain. She ultimately admitted to having difficulty breathing she did not appear dyspneic. Patient apparently was reluctant to give any further history in the emergency department. Source: patient, EMS Exam Limitations: clinical condition Date seen by provider: Sep 18, 2018 Time Seen by Provider: 07:20 Attending Physician Saroj Saez MD PCP Saroj Saez MD Consult Date of Admission Sep 17, 2018 at 20:55 Home Medications Home Medications Reviewed patient Home Medication Reconciliation performed by pharmacy medication reconciliations swimming pool service technician and/or nursing. Patients Allergies have been reviewed. Allergies Coded Allergies: Sulfa (Sulfonamide Antibiotics) (Verified Allergy, Unknown, 05/24/16) divalproex sodium (Verified Allergy, Unknown, 05/24/16) tetracycline (Unverified Adverse Reaction, Unknown, 03/03/17) TUR-Chdkov-Lxfmyd Hx Patient Social History Alcohol Use: Denies Use Recreational Drug Use: No 2nd Hand Smoke Exposure: No Recent Foreign Travel: No Contact w/other who traveled: No Recent Hopitalizations: Yes Recent Infectious Disease Expo: No Immunizations Up To Date Tetanus Booster (TDap): More than 5yrs Date of Pneumonia Vaccine: Nov 22, 2015 Date of Influenza Vaccine: Sep 15, 2017 Past Medical History PMHx: 1. 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 Pacemaker for paroxysmal atrial fibrillation or sick sinus syndrome- unclear history from patient 3. Shattered left femur causing bedbound status 4. AUGUSTINA 5. Chronic constipation 6. Hypothyroidism 7. HTN 8. Anxiety/depression 9. GERD/ulcers 10. T2DM 11. Prior AMI 12. CKD 13. PVD 14. Blindness in left eye PSurgHx: Left hip replacement Cataract surgery Pacemaker placement Family Medical History Significant Family History: Heart Disease, CAD Over 55 Years Old, DVT/PE, Hypertension, Renal Disease Family History: Arthritis G8 SISTER Bleeding disorder G8 BROTHER Cardiovascular disease G8 SISTER Diabetes mellitus 19 MOTHER FH: brain tumor 19 FATHER Hypertension G8 SISTER G8 SISTER G8 SISTER Kidney disease 19 MOTHER Thyroid disease G8 SISTER Review of Systems (CHC) Constitutional: see HPI Reviewed Test Results Reviewed Test Results Lab Laboratory Tests Test 09/17/18 19:40 09/17/18 19:47 09/17/18 21:49 09/18/18 05:28 Range/Units White Blood Count 9.0 6.9 4.3-11.0 10^3/uL Red Blood Count 3.63 L 3.50 L 4.35-5.85 10^6/uL Hemoglobin 11.5 11.2 L 11.5-16.0 G/DL Hematocrit 38 37 35-52 % Mean Corpuscular Volume 105 H 105 H 80-99 FL Mean Corpuscular Hemoglobin 32 32 25-34 PG Mean Corpuscular Hemoglobin Concent 30 L 30 L 32-36 G/DL Red Cell Distribution Width 15.2 H 15.2 H 10.0-14.5 % Platelet Count 153 135 130-400 10^3/uL Mean Platelet Volume 11.4 H 11.6 H 7.4-10.4 FL Neutrophils (%) (Auto) 91 H 88 H 42-75 % Lymphocytes (%) (Auto) 3 L 5 L 12-44 % Monocytes (%) (Auto) 6 7 0-12 % Eosinophils (%) (Auto) 0 0 0-10 % Basophils (%) (Auto) 0 0 0-10 % Neutrophils # (Auto) 8.2 H 6.0 1.8-7.8 X 10^3 Lymphocytes # (Auto) 0.3 L 0.3 L 1.0-4.0 X 10^3 Monocytes # (Auto) 0.6 0.5 0.0-1.0 X 10^3 Eosinophils # (Auto) 0.0 0.0 0.0-0.3 10^3/uL Basophils # (Auto) 0.0 0.0 0.0-0.1 10^3/uL Neutrophils % (Manual) 48 % Lymphocytes % (Manual) 4 % Monocytes % (Manual) 1 % Metamyelocytes % 2 % Band Neutrophils 45 % Basophilic Stippling SLIGHT Blood Morphology Comment NORMAL Prothrombin Time 19.1 H 12.2-14.7 SEC INR Comment 1.6 H 0.8-1.4 Activated Partial Thromboplast Time 36 H 24-35 SEC Sodium Level 140 135-145 MMOL/L Potassium Level 4.4 3.6-5.0 MMOL/L Chloride Level 103 98-107 MMOL/L Carbon Dioxide Level 24 21-32 MMOL/L Anion Gap 13 5-14 MMOL/L Blood Urea Nitrogen 32 H 7-18 MG/DL Creatinine 2.08 H 0.60-1.30 MG/DL Estimat Glomerular Filtration Rate 24 BUN/Creatinine Ratio 15 Glucose Level 332 H 70-105 MG/DL Lactic Acid Level 2.30 *H 1.64 0.50-2.00 MMOL/L Calcium Level 10.9 H 8.5-10.1 MG/DL Corrected Calcium 11.5 H 8.5-10.1 MG/DL Magnesium Level 2.5 H 1.8-2.4 MG/DL Total Bilirubin 0.9 0.1-1.0 MG/DL Aspartate Amino Transf (AST/SGOT) 12 5-34 U/L Alanine Aminotransferase (ALT/SGPT) 12 0-55 U/L Alkaline Phosphatase 81 40-136 U/L Troponin I < 0.30 <0.30 NG/ML B-Type Natriuretic Peptide 401.6 H <100.0 PG/ML Total Protein 7.1 6.4-8.2 GM/DL Albumin 3.2 3.2-4.5 GM/DL Amylase Level 3 L 25-125 U/L Lipase < 4 L 8-78 U/L Urine Color YELLOW Urine Clarity VERY CLOUDY H Urine pH 8 5-9 Urine Specific [place] 1.010 L 1.016-1.022 Urine Protein 3+ H NEGATIVE Urine Glucose (UA) 4+ H NEGATIVE Urine Ketones 1+ H NEGATIVE Urine Nitrite POSITIVE H NEGATIVE Urine Bilirubin NEGATIVE NEGATIVE Urine Urobilinogen NORMAL NORMAL MG/DL Urine Leukocyte Esterase 3+ H NEGATIVE Urine RBC (Auto) 5+ H NEGATIVE Urine RBC NONE /HPF Urine WBC 30-50 /HPF Urine Crystals PRESENT H /LPF Urine Triple Phosphate Crystals FEW H /LPF Urine Bacteria LARGE H /HPF Urine Casts NONE /LPF Urine Mucus NEGATIVE /LPF Urine Culture Indicated YES Radiology NAME: RONA MCDONALD MED REC#: [id number] PT STATUS: ADM IN : 1955 PHYSICIAN: LUCY NICHOLS DO ADMIT DATE: 09/17/18/ Signed Date of Exam: 09/17/18 CHEST 1 VIEW, AP/PA ONLY INDICATION: Dyspnea. Comparison with 05/11/2018. FINDINGS: There is cardiomegaly. There does appear to be increased infiltrate throughout the left lung on today's exam. Right lung shows minimal infiltrate. No evidence of pleural effusion. No pneumothorax. IMPRESSION: 1. Increasing cardiac size. 2. Diffuse interstitial and nodular alveolar infiltrate has developed throughout the left lung. No significant infiltrate noted on the right. Dictated by: Dictated on workstation # [id number] Dict: 09/17/181937 Trans: 09/17/182158 Interpreted by: CARSON BALDWIN MD Electronically signed by: CARSON BALDWIN MD 09/17/182158 Physical Exam-(CHC) Physical Exam Vital Signs VS - Last 72 Hours, by Label 09/17/18 09/17/18 09/17/18 09/18/18 19:40 23:35 23:55 00:00 Temp 98.4 98.4 Pulse 105 105 Resp 22 22 B/P (MAP) 143/78 (99) 143/78 Pulse Ox 96 96 96 94 O2 Delivery Nasal Cannula Room Air Nasal Cannula Nasal Cannula O2 Flow Rate 2.00 2.00 2.00 3.00 FiO2 0 09/18/18 09/18/18 09/18/18 09/18/18 00:10 01:17 01:28 02:00 Temp 100.0 99.8 Pulse 89 89 103 85 Resp 20 20 B/P (MAP) 163/78 (106) 157/81 (106) Pulse Ox 94 95 95 O2 Delivery Nasal Cannula Nasal Cannula O2 Flow Rate 3.00 3.00 FiO2 28 09/18/18 09/18/18 09/18/18 09/18/18 02:14 04:00 04:30 06:00 Temp 98.9 98.4 99.8 Pulse 93 105 104 Resp 20 18 20 B/P (MAP) 161/84 (109) 143/78 (99) 143/79 (100) Pulse Ox 95 95 96 94 O2 Delivery Nasal Cannula Nasal Cannula Nasal Cannula Nasal Cannula O2 Flow Rate 3.00 3.00 2.00 3.00 09/18/18 06:36 Pulse Ox 93 O2 Delivery Nasal Cannula O2 Flow Rate 3.00 Capillary Refill : Less Than 3 Seconds General Appearance: no apparent distress Eyes: Bilateral Eye Normal Inspection HEENT: pharynx normal Neck: non-tender Respiratory: lungs clear (With lung sounds distant due to her obesity) Cardiovascular: regular rate, rhythm Gastrointestinal: soft Rectal: deferred Neurologic/Psychiatric: alert (But has limited communication) Skin: normal color, warm/dry Assessment/Plan Assessment/Plan Admission Dx 1. Sepsishas evident by lactic acid level 2. Left lower lobe pneumonia 3. Urinary tract infection 4. Morbid obesity Admission Status: Inpatient Order (span 2 midnights) Reason for Inpatient Admission: Initiation of IV antibiotic cefepime to treat left lower lobe pneumonia Assessment & Plan 1. Sepsishas evident by lactic acid level -IV fluid rehydration and initiation of IV cefepime -Await blood culture report 2. Left lower lobe pneumonia -Initiation of IV cefepime -Respiratory therapy for albuterol treatments 3. Urinary tract infection -as above 4. Morbid obesity 5. AUGUSTINA -CPAP if can be brought over from the [facility] Clinical Quality Measures DVT/VTE Risk/Contraindication: Risk Factor Score Per Nursin RFS Level Per Nursing on Admit: 4+=Very High JESSICA RASMUSSEN MD Sep 18, 2018 06:22
[2018-09-18 06:27] LABS: ALBUMIN 2.9 GM/DL (3.2-4.5); BILIRUBIN,TOTAL 1.1 MG/DL (0.1-1.0); CALCIUM 10.8 MG/DL (8.5-10.1); CREATININE SERUM 2.1 MG/DL (0.60-1.30); TOTAL PROTEIN 6.4 GM/DL (6.4-8.2)
[2018-09-18] MEDS ORDERED: MELA3TAB PO (07:56)
[2018-09-18] MEDS ORDERED: CRAN450T9 PO (07:58)
[2018-09-18] MEDS ORDERED: ZOLP5TAB PO (07:59)
[2018-09-18] MEDS ORDERED: LORA-404 PO (08:00)
[2018-09-18] MEDS ORDERED: CAPSAICIN 0.1% (08:06)
[2018-09-18] MEDS ORDERED: BISA-65 PO (08:07)
[2018-09-18] MEDS ORDERED: LIDO76.5 TP (08:12)
[2018-09-18] MEDS ORDERED: MAG-10 PO (08:13)
[2018-09-18] MEDS ORDERED: POLY17PO6 PO (08:15)
[2018-09-18] MEDS ORDERED: LIRA0.6P3 SQ (08:17)
[2018-09-18] MEDS ORDERED: ASCO500C17 PO (08:20)
[2018-09-18] MEDS ORDERED: APIX5TAB PO (08:21)
[2018-09-18] MEDS ORDERED: LEVO125T PO (08:22)
[2018-09-18] MEDS ORDERED: DILT120C53 PO (08:27)
[2018-09-18] MEDS ORDERED: PHEN-640 PO (08:28)
[2018-09-18] MEDS ORDERED: NITR-65 PO (08:29)
[2018-09-18] MEDS ORDERED: CEFEPIME 2 GM/NS 50 ML IVPB IV SCH ×2 (08:30)
[2018-09-18] MEDS ORDERED: NAPH15DR56 OP (08:31)
[2018-09-18] MEDS ORDERED: LOPE-134 PO (08:34)
[2018-09-18] MEDS ORDERED: PANT40TA3 PO (08:35)
[2018-09-18] MEDS ORDERED: ACET325T38 PO (08:36)
[2018-09-18] MEDS ORDERED: MORPHINE 15 MG PO (08:37)
[2018-09-18] MEDS ORDERED: BISACODYL 5 MG (DULCOLAX) TABLET PO PRN (09:00)
[2018-09-18] MEDS ORDERED: NON-FORMULARY MEDICATION 1 EA EA (Vortioxetine Hydrobromide (Trintellix) 20 MG) PO SCH (09:00)
[2018-09-18] MEDS ORDERED: DILTIAZEM 120 MG (CARDIZEM CD) CAP PO SCH (09:00)
[2018-09-18] MEDS ORDERED: [UNRECOGNIZED DRUG - MIXTURE] OP SCH (09:00)
[2018-09-18] MEDS ORDERED: ONDANSETRON 8 MG (ZOFRAN) ORAL DISSOLVE TAB PO PRN (09:38)
[2018-09-18] MEDS: OXYBUTYNIN (DITROPAN) 5 MG TAB PO SCH ×2 (09:54→20:52)
[2018-09-18] MEDS: PANTOPRAZOLE 40 MG (PROTONIX) TAB PO SCH ×2 (09:54→20:52)
[2018-09-18] MEDS: LORazepam 0.5 MG (ATIVAN) TABLET PO SCH (09:54)
[2018-09-18] MEDS: LEVOTHYROXINE 125 MCG (LEVOTHROID) TABLET PO SCH (09:54)
[2018-09-18] MEDS: APIXABAN 5 MG (ELIQUIS) TABLET PO SCH ×2 (09:54→20:52)
[2018-09-18] MEDS ORDERED: NS IV 1000 ML 1,000 ML ONE (09:59)
[2018-09-18] MEDS ORDERED: ACETAMINOPHEN 650 MG SUPP (TYLENOL) ONE (09:59)
[2018-09-18] MEDS ORDERED: ACETAMINOPHEN 650 MG SUPP (TYLENOL) PR PRN (10:00)
[2018-09-18] MEDS: NS IV 1000 ML 1,000 ML IV SCH ×2 (10:04→20:26)
[2018-09-18] MEDS: FLUTICASONE NASAL SPRAY (FLONASE) 16 GM BTL NS SCH ×2 (12:51→21:29)
[2018-09-18] MEDS: inSUlin ASPART (NovoLOG) 1 UNIT/0.01 ML (CHARGE PER UNIT) SC SCH ×2 (12:51→18:15)
[2018-09-18] MEDS ORDERED: FLU QUADRIvalent (5+ YOA) 2018-2019 (AFLURIA) 0.5 ML IM ONE (13:45)
[2018-09-18] MEDS: CEFEPIME 2 GM/NS 50 ML IVPB IV SCH ×2 (20:26)
[2018-09-18] MEDS: DOCUSATE SODIUM 100 MG (COLACE) CAP PO SCH (20:52)
[2018-09-18] MEDS ORDERED: MELATONIN 3 MG TABLET PO SCH (21:00)
[2018-09-18] MEDS ORDERED: NS (IVPB) 0 ML ONE (22:35)
[2018-09-18] MEDS ORDERED: DILTIAZEM 25 MG/5 ML INJ (CARDIZEM) VIAL ONE (22:35)
[2018-09-18 22:40] LABS: ABG BASE EXCESS 1.7 MMOL/L (-2.5-2.5); ABG OXYGEN SATURATION 96 % (94-100); ABG PCO2 44 MMHG (35-45); ABG PH 7.39 (7.37-7.43); ABG PO2 74 MMHG (79-93); ABG TCO2 27.3 MMOL/L (21.0-31.0); ALLENS TEST YES-POS; INSPIRED O2 3L NC; PATIENT TEMP 99.8; VENTILATOR NO
[2018-09-18] MEDS ORDERED: DILTIAZEM 125 MG/25 ML IV (CARDIZEM) IV ONE (22:43)
[2018-09-18] MEDS ORDERED: DILTIAZEM 25 MG/5 ML INJ (CARDIZEM) VIAL IVP ONE (22:45)
[2018-09-18] MEDS ORDERED: NS (IVPB) 100 ML ONE (22:48)
[2018-09-18] MEDS: DILTIAZEM IV FOR DRIP 125 MG in NS (IVPB) 100 ML IV SCH (22:58)
[2018-09-19] VITALS (24 sets, daily range): BP systolic 166–198; BP diastolic 79–110
[2018-09-19] MEDS: inSUlin ASPART (NovoLOG) 1 UNIT/0.01 ML (CHARGE PER UNIT) SC SCH ×5 (00:10→23:29)
[2018-09-19] MEDS: RT-ALBUTEROL/IPRATROPIUM 3 ML (DUONEB) VIAL INH SCH ×6 (02:10→22:58)
[2018-09-19] MEDS ORDERED: meTOprolol 5 MG/5 ML (LOPRESSOR) VIAL IV ONE (03:15)
[2018-09-19 03:47] LABS: BASOPHILS % (AUTO) 0 % (0-10); EOSINOPHILS % (AUTO) 0 % (0-10); HEMATOCRIT 39 % (35-52); HEMOGLOBIN 11.6 G/DL (11.5-16.0); LYMPHOCYTES # (AUTO) 0.3 X 10^3 (1.0-4.0); LYMPHOCYTES % (AUTO) 4 % (12-44); MEAN CORPUSCULAR HEMOGLOBIN 31 PG (25-34); MEAN CORPUSCULAR HGB CONC 30 G/DL (32-36); MEAN CORPUSCULAR VOLUME 104 FL (80-99); MEAN PLATELET VOLUME 11.7 FL (7.4-10.4); MONOCYTES # (AUTO) 0.7 X 10^3 (0.0-1.0); MONOCYTES % (AUTO) 8 % (0-12); NEUTROPHILS # (AUTO) 7.2 X 10^3 (1.8-7.8); NEUTROPHILS % (AUTO) 88 % (42-75); PLATELET COUNT 170 10^3/uL (130-400); RED BLOOD COUNT 3.71 10^6/uL (4.35-5.85); RED CELL DISTRIBUTION WIDTH 15.1 % (10.0-14.5); WHITE BLOOD COUNT 8.2 10^3/uL (4.3-11.0)
[2018-09-19 04:06] LABS: CALCIUM 11.4 MG/DL (8.5-10.1); CREATININE SERUM 2.63 MG/DL (0.60-1.30); MAGNESIUM 2.4 MG/DL (1.8-2.4); PHOSPHORUS 1.4 MG/DL (2.3-4.7); POTASSIUM 3.7 MMOL/L (3.6-5.0)
[2018-09-19] MEDS: NS IV 1000 ML 1,000 ML IV SCH ×3 (04:37→19:55)
[2018-09-19] MEDS ORDERED: DILTIAZEM 125 MG/25 ML IV (CARDIZEM) IV ONE (05:52)
[2018-09-19] MEDS: POTASSIUM CL 10MEQ/50ML IVPB 50 ML IV SCH (05:52)
[2018-09-19] MEDS: MAGNESIUM 1 GM/100 ML IVPB 100 ML IV SCH (05:52)
[2018-09-19] MEDS: KCL 20 MEQ TAB (K-DUR) PO SCH (05:52)
[2018-09-19] MEDS: DILTIAZEM IV FOR DRIP 125 MG in NS (IVPB) 100 ML IV SCH (06:04)
[2018-09-19] MEDS: LEVOTHYROXINE 125 MCG (LEVOTHROID) TABLET PO SCH (06:04)
[2018-09-19] MEDS ORDERED: NITROGLYCERIN 2% OINT 1 GM UNIT DOSE PACKET TOP PRN (08:45)
--- NOTE | 2018-09-19 09:03 | Consultation-Cardiology ---
HPI-Cardiology Cardiology Consultation Date of Consultation 09/19/18 Date of Admission Time Seen by Provider: 08:58 Indication: Atrial fibrillation with rapid ventricular response HPI 63 years old lady, admitted for pneumonia and poor oral intake, not taking any of her medication, was noted to be tachycardic and transferred to the intensive care unit and started on Cardizem drip. Upper my evaluation patient is laying down in bed, moving her eyes only, does not respond to verbal stimuli, does not provide any history, not dyspneic. Unable to provide any further history of present illness, history was obtained by reviewing her record Home Medications & Allergies Allergies: Coded Allergies: Sulfa (Sulfonamide Antibiotics) (Verified Allergy, Unknown, 05/24/16) divalproex sodium (Verified Allergy, Unknown, 05/24/16) tetracycline (Unverified Adverse Reaction, Unknown, 03/03/17) Home Medication List Reviewed: Yes [id number]-Qmzfpy Hx Patient Social History Alcohol Use: Denies Use Recreational Drug Use: No 2nd Hand Smoke Exposure: No Recent Foreign Travel: No Recent Infectious Disease Expo: No Recent Hopitalizations: Yes Immunizations Up To Date Tetanus Booster (TDap): More than 5yrs Date of Pneumonia Vaccine: Nov 22, 2015 Date of Influenza Vaccine: Sep 15, 2017 Past Medical History Past medical history as described below Family Medical History Significant Family History: Heart Disease, CAD Over 55 Years Old, DVT/PE, Hypertension, Renal Disease Family History: Arthritis G8 SISTER Bleeding disorder G8 BROTHER Cardiovascular disease G8 SISTER Diabetes mellitus 19 MOTHER FH: brain tumor 19 FATHER Hypertension G8 SISTER G8 SISTER G8 SISTER Kidney disease 19 MOTHER Thyroid disease G8 SISTER Review of Systems Constitutional: other (Unable to provide review of system due to current condition) Reviewed Test Results Reviewed Test Results Lab Laboratory Tests Test 09/18/18 12:05 09/18/18 16:25 09/18/18 18:00 09/18/18 22:33 Range/Units Glucometer 282 H 254 H 268 H 70-110 MG/DL Blood Gas Puncture Site R RAD Blood Gas Patient Temperature 99.8 Arterial Blood pH 7.39 7.37-7.43 Arterial Blood Partial Pressure CO2 44 35-45 MMHG Arterial Blood Partial Pressure O2 74 L 79-93 MMHG Arterial Blood HCO3 26 23-27 MMOL/L Arterial Blood Total CO2 27.3 21.0-31.0 MMOL/L Arterial Blood Oxygen Saturation 96 94-100 % Arterial Blood Base Excess 1.7 -2.5-2.5 MMOL/L Arsh Test YES-POS Blood Gas Ventilator Setting NO Blood Gas Inspired Oxygen 3L NC Test 09/19/18 00:06 09/19/18 03:33 Range/Units Glucometer 272 H 70-110 MG/DL White Blood Count 8.2 4.3-11.0 10^3/uL Red Blood Count 3.71 L 4.35-5.85 10^6/uL Hemoglobin 11.6 11.5-16.0 G/DL Hematocrit 39 35-52 % Mean Corpuscular Volume 104 H 80-99 FL Mean Corpuscular Hemoglobin 31 25-34 PG Mean Corpuscular Hemoglobin Concent 30 L 32-36 G/DL Red Cell Distribution Width 15.1 H 10.0-14.5 % Platelet Count 170 130-400 10^3/uL Mean Platelet Volume 11.7 H 7.4-10.4 FL Neutrophils (%) (Auto) 88 H 42-75 % Lymphocytes (%) (Auto) 4 L 12-44 % Monocytes (%) (Auto) 8 0-12 % Eosinophils (%) (Auto) 0 0-10 % Basophils (%) (Auto) 0 0-10 % Neutrophils # (Auto) 7.2 1.8-7.8 X 10^3 Lymphocytes # (Auto) 0.3 L 1.0-4.0 X 10^3 Monocytes # (Auto) 0.7 0.0-1.0 X 10^3 Eosinophils # (Auto) 0.0 0.0-0.3 10^3/uL Basophils # (Auto) 0.0 0.0-0.1 10^3/uL Sodium Level 143 135-145 MMOL/L Potassium Level 3.7 3.6-5.0 MMOL/L Chloride Level 108 H 98-107 MMOL/L Carbon Dioxide Level 22 21-32 MMOL/L Anion Gap 13 5-14 MMOL/L Blood Urea Nitrogen 49 H 7-18 MG/DL Creatinine 2.63 #H 0.60-1.30 MG/DL Estimat Glomerular Filtration Rate 18 BUN/Creatinine Ratio 19 Glucose Level 303 H 70-105 MG/DL Calcium Level 11.4 H 8.5-10.1 MG/DL Phosphorus Level 1.4 L 2.3-4.7 MG/DL Magnesium Level 2.4 1.8-2.4 MG/DL Radiology NAME: RONA MCDONALD [facility] REC#: [id number] PT STATUS: ADM IN : 1955 PHYSICIAN: LUCY NICHOLS DO ADMIT DATE: 09/17/18/ Signed Date of Exam: 09/17/18 CHEST 1 VIEW, AP/PA ONLY INDICATION: Dyspnea. Comparison with 05/11/2018. FINDINGS: There is cardiomegaly. There does appear to be increased infiltrate throughout the left lung on today's exam. Right lung shows minimal infiltrate. No evidence of pleural effusion. No pneumothorax. IMPRESSION: 1. Increasing cardiac size. 2. Diffuse interstitial and nodular alveolar infiltrate has developed throughout the left lung. No significant infiltrate noted on the right. Dictated by: Dictated on workstation # [id number] Dict: 09/17/181937 Trans: 09/17/182158 Interpreted by: CARSON BALDWIN MD Electronically signed by: CARSON BALDWIN MD 09/17/182158 Physical Exam Vital Signs Vital Signs - First Documented 09/17/18 09/17/18 09/18/18 19:40 23:35 00:00 Temp 98.4 Pulse 105 Resp 22 B/P (MAP) 143/78 (99) Pulse Ox 96 O2 Delivery Nasal Cannula O2 Flow Rate 2.00 FiO2 0 Capillary Refill : Less Than 3 SecondsLess Than 3 Seconds Height, Weight, BMI Height: 5'6.00" Weight: 393lbs. 2.0oz. [id number]; 63.6 BMI Method:Estimated General Appearance: WD/WN, Severe Distress Eyes: Bilateral Eye Normal Inspection, Bilateral Eye PERRL, Bilateral Eye EOMI HEENT: Normal ENT Inspection, Pharynx Normal Neck: Normal Inspection, Carotid Bruit Respiratory: Lungs Clear, Normal Breath Sounds, No Respiratory Distress Cardiovascular: No Gallop, No JVD, No Murmur, Normal Peripheral Pulses, Irregularly Irregular Gastrointestinal: Normal Bowel Sounds, No Organomegaly, Soft Back: Normal Inspection Extremity: Normal Capillary Refill, Normal Inspection, Non Tender, No Calf Tenderness, No Pedal Edema Neurologic/Psychiatric: Alert, Other (Not following commands not respondind, opening her eyes) Skin: Normal Color, Warm/Dry Lymphatic: No Adenopathy A/P-Cardiology Admission Diagnosis Atrial fibrillation Change in mental status Hypertension COPD Assessment/Plan Atrial fibrillation was rapid ventricular response, history of paroxysmal atrial fibrillation, has been on Eliquis and Cardizem. Not taking her medication. Possible anoxic brain injury versus stroke. I will evaluate CT of the head at this time. [id number] score of 3, yearly risk of stroke without oral anticoagulation is 3.5 percent, maintained on Eliquis Change in mental status, obtundation, questionable anoxic brain injury versus stroke. Consult Dr. Marx History of severe COPD with multiple hospitalization for acute exacerbation and hypoxemia. Morbid obesity, obesity hypoventilation syndrome, managed by Dr. Marx Diabetes mellitus, followed and managed by primary care physician Acute on chronic renal failure, continue to monitor renal function. Severe hypertension, maintained on Cardizem drip, I'll start NG tube pills if tolerated Poor prognosis, consider NG tube placement, initiate feeding and medication through the tube Clinical Quality Measures DVT/VTE Risk/Contraindication: Risk Factor Score Per Nursin RFS Level Per Nursing on Admit: 4+=Very High EZIO GAY MD Sep 19, 2018 09:03
--- NOTE | 2018-09-19 09:32 | Diagnostic Imaging Report ---
PROCEDURE: CT head without contrast. TECHNIQUE: Multiple contiguous axial images were obtained through the brain without the use of intravenous contrast. INDICATION: CVA. No prior studies are available for comparison. The ventricles and sulci are within normal limits. No sulcal effacement is seen. There is no midline shift. No acute intra-axial or extra-axial hemorrhage is detected. Cisterns are patent. Visualized paranasal sinuses are clear. IMPRESSION: No acute intracranial process is detected. Dictated by: Dictated on workstation # [id number]
--- NOTE | 2018-09-19 10:17 | Progress Note-Hospitalist ---
Subjective HPI/CC On Admission Date Seen by Provider: Sep 19, 2018 Time Seen by Provider: 09:00 Subjective/Events-last exam Appears anoxic brain injury from acute on chronic respiratory failure since CT scan reveals no bleeding CVA Checked meds and labs NGT in place for Cardizem to be given due to AF w/RVR Pt very debilitated and has resided in [place] and maintained catheter due to inability to get OOB Poor prognosis overall and has no recovery potential in my opinion given her poor quality of life before. Appears in no pain but is not alert and semi-comatose Review of Systems Neurological: Confusion Focused Exam Lactate Level 09/17/18 19:40: Lactic Acid Level 2.30*H 09/17/18 21:49: Lactic Acid Level 1.64 Objective Exam Vital Signs Vital Signs Date Time Temp Pulse Resp B/P (MAP) Pulse Ox O2 Delivery O2 Flow Rate FiO2 09/19/18 12:00 104 22 183/97 (125) 92 Nasal Cannula 4.00 09/19/18 03:55 99.9 09/18/18 01:17 28 Capillary Refill : Less Than 3 SecondsLess Than 3 Seconds General Appearance: No Apparent Distress, Chronically ill, Obese, Other ( unresponsive) Respiratory: Crackles, Decreased Breath Sounds Cardiovascular: Irregularly Irregular, Tachycardia Neurologic/Psychiatric: Other (semi-comatose) Results/Procedures Lab Laboratory Tests 09/19/18 03:33 Patient resulted labs reviewed. Assessment/Plan Assessment and Plan Assess & Plan/Chief Complaint Assessment: Presumed anoxic brain injury from acute on chronic respiratory failure Morbid obesity Garcia cath maintenance due to inability to get OOB long-term ESBL UTI in past AF w/RVR Plan: NGT for Cardizem for rate control Poor prognosis DNR Recovery is not likely Diagnosis/Problems Diagnosis/Problems (1) Anoxic brain injury Status: Acute (2) Comatose Status: Acute Qualifiers: Coma depth: unspecified coma depth Qualified Codes: R40.20 - Unspecified coma (3) Obesity hypoventilation syndrome Status: Chronic (4) Sepsis Status: Acute Qualifiers: Sepsis type: sepsis due to unspecified organism Qualified Codes: A41.9 - Sepsis, unspecified organism (5) UTI (urinary tract infection) due to urinary indwelling Garcia catheter Status: Chronic Qualifiers: Indwelling urinary catheter type: indwelling urethral catheter Encounter type: subsequent encounter Qualified Codes: T83.511D - Infection and inflammatory reaction due to indwelling urethral catheter, subsequent encounter ; N39.0 - Urinary tract infection, site not specified (6) IDDM (insulin dependent diabetes mellitus) Status: Chronic (7) Morbid obesity Status: Chronic (8) Hypoxia Status: Chronic (9) Debilitated patient Status: Chronic Clinical Quality Measures DVT/VTE Risk/Contraindication: Risk Factor Score Per Nursin RFS Level Per Nursing on Admit: 4+=Very High KENISHA ALBRIGHT DO Sep 19, 2018 10:17
[2018-09-19] MEDS ORDERED: meTOprolol 5 MG/5 ML (LOPRESSOR) VIAL IV NR (10:26)
[2018-09-19] MEDS ORDERED: ZOLP5TAB7 PO (10:26)
[2018-09-19] MEDS: LORazepam 0.5 MG (ATIVAN) TABLET PO SCH (10:35)
[2018-09-19] MEDS ORDERED: PREG75CA PO (10:45)
[2018-09-19] MEDS ORDERED: SUCR1ORA5 PO (10:49)
[2018-09-19] MEDS: FLUTICASONE NASAL SPRAY (FLONASE) 16 GM BTL NS SCH ×2 (11:03→20:01)
[2018-09-19] MEDS: OXYBUTYNIN (DITROPAN) 5 MG TAB PO SCH ×2 (11:04→20:01)
[2018-09-19] MEDS: DILTIAZEM 60 MG (CARDIZEM) TAB NG SCH ×3 (11:04→23:29)
[2018-09-19] MEDS: APIXABAN 5 MG (ELIQUIS) TABLET PO SCH ×2 (11:04→20:01)
[2018-09-19] MEDS: PANTOPRAZOLE 40 MG (PROTONIX) TAB PO SCH (11:04)
--- NOTE | 2018-09-19 11:53 | Pulmonary Consultation ---
History of Present Illness History of Present Illness Date of Consultation 09/19/18 11:48 Time Seen by Provider: 11:48 Date of Admission Reason for Visit: Atrial fibrillation with rapid ventricular response History of Present Illness 63yo poor historian was admitted from [facility] 09/17 to 4th floor secondary to pneumonia and poor oral intake. Pt developed Afib RVR while on 4th and was transferred to ICU and placed on a Cardizem gtt. Pt is minimally responsive even since admission. Unable to obtain any information from patient. Dr. Lockett is consulting de for ICU management. Allergies and Home Medications Allergies Coded Allergies: Sulfa (Sulfonamide Antibiotics) (Verified Allergy, Unknown, 05/24/16) divalproex sodium (Verified Allergy, Unknown, 05/24/16) tetracycline (Unverified Adverse Reaction, Unknown, 03/03/17) Home Medications Acetaminophen 325 Mg Tablet, 650 MG PO Q4H PRN for PAIN-MILD TO MODERATE, ( Reported) Acetaminophen 325 Mg Tablet, 650 MG PO Q6H, (Reported) Apixaban 5 Mg Tablet, 5 MG PO BID, (Reported) Ascorbic Acid 500 Mg Capsule, 500 MG PO DAILY, (Reported) Bisacodyl 5 Mg Tablet.dr, 10 MG PO DAILY PRN for CONSTIPATION-1ST LINE, ( Reported) Cranberry Fruit 450 Mg Tablet, 450 MG PO TID, (Reported) Cyanocobalamin 1,000 Mcg/Ml Inj, 1,000 MCG IM MONTHLY ON THE , (Reported) Diltiazem HCl 120 Mg Cap.er.24h, 120 MG PO DAILY, (Reported) Docusate Sodium 100 Mg Capsule, 100 MG PO HS, (Reported) Fluticasone Propionate 16 Gm Morgan.susp, 2 SPRAYS NS BID, (Reported) Evelyn Root 250 Mg Capsule, 550 MG PO Q12H PRN for STOMACH UPSET, (Reported) Levothyroxine Sodium 125 Mcg Tablet, 125 MCG PO DAILY, (Reported) Lidocaine HCl 76.5 Gm Cream..g., 1 APPLIC TP BID, (Reported) Liraglutide 0.6 Mg/0.1 Ml Pen.injctr, 1.8 MG SQ DAILY, (Reported) Loperamide HCl 2 Mg Tablet, 2 MG PO PRN, (Reported) MAX OF 4 DOSES IN 24 HOURS Lorazepam 0.5 Mg Tablet, 0.5 MG PO DAILY, (Reported) Mag Hydrox/Al Hydrox/Simeth 355 Ml Oral.susp, 30 ML PO Q4H PRN for INDIGESTION, (Reported) Magnesium Hydroxide 400 Mg/5 Ml Oral.susp, 30 ML PO DAILY PRN for CONSTIPATION- 7TH LINE, (Reported) Melatonin 3 Mg Tablet, 3 MG PO hs prn, (Reported) Menthol 118 Ml Gel..ml., 1 APPLIC TP TID PRN for PAIN-MILD, (Reported) Miconazole Nitrate 142 Gm Cream..g., TP DAILY PRN for RASH, (Reported) Naphazo HCl/Hpm/Ps 80/Zn Sulf 15 Ml Drops, 2 DROPS OP QID, (Reported) Nitrofurantoin Monohyd/M-Cryst 100 Mg Capsule, 1 TAB PO DAILY, (Reported) Nystatin 15 Gm Oint...g., TOP BID, (Reported) Nystatin 60 Gm Powder, TOP BID, (Reported) Ondansetron HCl 8 Mg Tablet, 8 MG PO TID PRN for NAUSEA/VOMITING-1ST LINE, ( Reported) Oxybutynin Chloride 15 Mg Tab.er.24, 10 MG PO DAILY, (Reported) Oxycodone HCl/Acetaminophen 1 Each Tablet, 1 TAB PO QID, (Reported) Pantoprazole Sodium 40 Mg Tablet.dr, 40 MG PO BID, (Reported) Phenazopyridine HCl 200 Mg Tablet, 1 TAB PO Q8H PRN for BLADDER SPASM, (Reported ) Polyethylene Glycol 3350 119 Gm Powder, 17 GM PO DAILY PRN for CONSTIPATION-2ND LINE, (Reported) Polyethylene Glycol 3350 17 Gm Powd.pack, 17 GM PO DAILY, (Reported) Pregabalin 75 Mg Capsule, 75 MG PO BID, (Reported) Sevelamer Carbonate 800 Mg Tablet, 800 MG PO TIDWM, (Reported) Silver Sulfadiazine 25 Gm Cream..g., TOP BID, (Reported) Sodium Chloride 44 Ml Morgan, 2 SPRAYS NS Q4H PRN for CONGESTION, (Reported) Triamcinolone Acet 15 Gm Oint, TOP BID, (Reported) Vortioxetine Hydrobromide 20 Mg Tablet, 20 MG PO DAILY, (Reported) Zolpidem Tartrate 5 Mg Tablet, PO HS, (Reported) [Capsaicin 0.1% Top] , 1 APPLIC TOP HS, (Reported) SARAHY FEET [Morphine Er 15MG] , 15 MG PO Q12H, (Reported) Past Zgxjjrm-Ceibqj-Wsfwab Hx Patient Social History Alcohol Use: Denies Use Recreational Drug Use: No Former Smoker, Quit: Aug 05, 1985 2nd Hand Smoke Exposure: No Recent Foreign Travel: No Contact w/Someone Who Travel: No Recent Infectious Disease Expo: No Recent Hopitalizations: Yes Physical Abuse: No Sexual Abuse: No Mistreated: No Fear: No Immunizations Up To Date Tetanus Booster (TDap): More than 5yrs PED Vaccines UTD: No Date of Pneumonia Vaccine: Nov 22, 2015 Date of Influenza Vaccine: Sep 15, 2017 Seasonal Allergies Seasonal Allergies: No Past Medical History Surgeries: Yes (LEFT HIP REPLACEMENT; BILAT SHOULDER SURGERIES; MULTIPLE LITHOTRIPSIES AND OPEN KIDNEY STONE REMOVAL; BILATERAL NEPHROSTOMY TUBES/LATER REMOVED; EGD; CARDIAC CATH--NO INTERVENTION BUT HAD POST-PROCEDURE REPAIR OF ILIAC ARTERY) Cardiac, Gallbladder, Joint Replacement, Orthopedic, Pacemaker, Renal, Tonsillectomy, Vascular Surgery Respiratory: Yes (history of respiratory failure with hypoxia and hypercarbia; CHRONIC HYPOVENTILATION DUE TO MORBID OBESITY. COPD--HOME O2 AT 2L/NC) Asthma, Sleep Apnea, COPD Currently Using CPAP: Yes (ALTHOUGH IS UNCLEAR IF SHE IS ON CPAP OR BIPAP) Currently Using BIPAP: No Cardiac: Yes ( PACEMAKER; CHF; VT--NO INTERVENTION BUT POST-PROCEDURE REPAIR OF ILIAC ARTERY. ) Atrial Fibrillation, Chronic Edema/Swelling, Coronary Artery Disease, Heart Attack, Hypertension Neurological: Yes (HAD 1 SEIZURE AFTER SHE TOOK DEPAKOTE--DOES NOT KNOW WHY SHE WAS PUT ON DEPAKOTE) Neuropathy Reproductive Disorders: No Female Reproductive Disorders: Denies Sexually Transmitted Disease: No HIV/AIDS: No Genitourinary: Yes (CHRONIC INDWELLING CARDONA, ESWL) Kidney Infection, Bladder Infection, Kidney Stones, Renal Failure, UTI-Chronic Gastrointestinal: Yes (GASTRITIS--FOUND ON EGD; VENTRAL HERNIA) Abdominal Hernia, Gastroesophageal Reflux Musculoskeletal: Yes (CARPAL TUNNEL; PT IS BED BOUND DUE TO MORBID OBESITY AND CHRONIC GENERALIZED PAIN; LEFT KNEE FX; LEFT HIP REPLACEMENT; BILATERAL SHOULDER SURGERIES) Degenerate Disk Disease, Arthritis, Fibromyalgia, Chronic Back Pain, Fractures Endocrine: Yes (MORBID OBESITY; HX OF EXTREME NON-COMPLIANCE PRIOR TO ADMIT TO HALFWAY. 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) Cataract Loss of Vision: Right Hearing Impairment: Denies Cancer: No Psychosocial: Yes Depression Integumentary: Yes (Previous skin breakdown) Recent Skin Changes Blood Disorders: No Adverse Reaction/Blood Tranf: No Family Medical History Arthritis G8 SISTER Bleeding disorder G8 BROTHER Cardiovascular disease G8 SISTER Diabetes mellitus 19 MOTHER FH: brain tumor 19 FATHER Hypertension G8 SISTER G8 SISTER G8 SISTER Kidney disease 19 MOTHER Thyroid disease G8 SISTER Heart Disease, CAD Over 55 Years Old, DVT/PE, Hypertension, Renal Disease Review of Systems Time Seen by Provider: 11:55 Sepsis Event Evaluation Height, Weight, BMI Height: 5'6.00" Weight: 393lbs. 2.0oz. 178.616031fx; 63.6 BMI Method:Estimated Exam Exam Vital Signs Date Time Temp Pulse Resp B/P (MAP) Pulse Ox O2 Delivery O2 Flow Rate FiO2 09/19/18 11:16 91 Nasal Cannula 3.00 09/19/18 10:00 101 11 197/95 (129) 91 Nasal Cannula 4.00 09/19/18 09:00 111 36 166/109 (128) 90 Nasal Cannula 3.00 09/19/18 08:00 Nasal Cannula 3.00 09/19/18 08:00 114 24 183/98 (126) 91 Nasal Cannula 3.00 09/19/18 07:00 112 09/19/18 07:00 112 11 187/95 (125) 91 Nasal Cannula 3.00 09/19/18 06:59 91 Nasal Cannula 3.00 09/19/18 06:04 109 180/94 09/19/18 06:00 111 34 180/94 (122) 90 Nasal Cannula 3.00 09/19/18 05:00 114 30 185/90 (121) 91 Nasal Cannula 3.00 09/19/18 04:00 Nasal Cannula 3.00 09/19/18 04:00 98 18 182/110 (134) 91 Nasal Cannula 3.00 09/19/18 03:55 99.9 09/19/18 03:00 121 22 187/97 (127) 91 Nasal Cannula 3.00 09/19/18 02:12 93 Nasal Cannula 3.00 09/19/18 02:00 113 33 178/81 (113) 92 Nasal Cannula 3.00 09/19/18 01:00 123 31 166/79 (108) 93 Nasal Cannula 3.00 09/19/18 01:00 123 09/19/18 00:07 98.5 09/19/18 00:02 133 8 176/104 (128) 91 Nasal Cannula 3.00 09/19/18 00:00 Nasal Cannula 3.00 09/18/18 23:45 118 24 172/91 (118) 92 Nasal Cannula 3.00 09/18/18 23:30 126 23 184/85 (118) 92 Nasal Cannula 3.00 09/18/18 23:15 111 14 168/79 (108) 92 Nasal Cannula 3.00 09/18/18 23:00 131 29 151/79 (103) 93 Nasal Cannula 3.00 09/18/18 22:58 123 174/108 09/18/18 22:45 129 27 91 Nasal Cannula 3.00 09/18/18 22:30 134 24 188/119 (142) 94 Nasal Cannula 3.00 09/18/18 22:15 125 31 183/111 (135) 99 Nasal Cannula 3.00 09/18/18 22:13 94 Nasal Cannula 3.00 09/18/18 22:00 Nasal Cannula 3.00 09/18/18 22:00 124 23 188/119 (142) 94 Nasal Cannula 3.00 09/18/18 21:55 99.8 129 27 188/119 (142) 94 Nasal Cannula 3.00 09/18/18 20:20 98.2 139 28 170/78 (108) 93 Nasal Cannula 3.00 09/18/18 20:00 Nasal Cannula 3.00 09/18/18 19:00 127 09/18/18 18:27 93 Nasal Cannula 3.00 09/18/18 17:50 99.5 126 28 187/92 (123) 94 Nasal Cannula 3.00 09/18/18 16:25 100.2 130 28 187/95 (125) 94 Nasal Cannula 3.00 09/18/18 14:47 95 Nasal Cannula 3.00 09/18/18 12:00 99.5 93 20 141/75 (97) 94 Nasal Cannula 3.00 I & O 09/19/18 07:00 Intake Total 2125 ml Output Total 1150 ml Balance 975 ml Height & Weight Height: 5'6.00" Weight: 393lbs. 2.0oz. 178.459268fg; 63.6 BMI Method:Estimated General Appearance: WD/WN, Severe Distress HEENT: Normal ENT Inspection, Pharynx Normal Neck: Normal Inspection, Carotid Bruit Respiratory: Lungs Clear, Normal Breath Sounds, No Respiratory Distress Cardiovascular: No Gallop, No JVD, No Murmur, Normal Peripheral Pulses, Irregularly Irregular Capillary Refill: Less Than 3 Seconds Gastrointestinal: soft Extremity: Normal Capillary Refill, Normal Inspection, Non Tender, No Calf Tenderness, No Pedal Edema Neurologic/Psychiatric: Alert, Other (Not following commands not respondind, opening her eyes) Skin: Normal Color, Warm/Dry Lymphatic: No Adenopathy Results Lab Laboratory Tests 09/17/18 19:40 09/18/18 05:28 09/19/18 03:33 Assessment/Plan Assessment/Plan Mental status change r/o CVA vs anoxic brain injury vs metabolic encephalopathy -CT without contrast is negative -D/C Ativan and Melatonin Afib RVR -cardiology following -pt is on Eliquis Hx of COPD Acute renal failure -IVF Morbid obesity with OHS -Check repeat ABG CHERYLE SULLIVAN DO Sep 19, 2018 11:53
[2018-09-19 13:04] LABS: ABG BASE EXCESS 1.7 MMOL/L (-2.5-2.5); ABG OXYGEN SATURATION 96 % (94-100); ABG PCO2 44 MMHG (35-45); ABG PH 7.39 (7.37-7.43); ABG PO2 70 MMHG (79-93); ABG TCO2 27.6 MMOL/L (21.0-31.0)
[2018-09-19 13:05] LABS: ALLENS TEST YES-POS; INSPIRED O2 4L; VENTILATOR NO
[2018-09-19] MEDS: meTOprolol 5 MG/5 ML (LOPRESSOR) VIAL IV SCH ×2 (17:33→23:26)
[2018-09-19 18:24] LABS: BASOPHILS % (AUTO) 0 % (0-10); EOSINOPHILS % (AUTO) 0 % (0-10); HEMATOCRIT 38 % (35-52); HEMOGLOBIN 11.5 G/DL (11.5-16.0); LYMPHOCYTES # (AUTO) 0.4 X 10^3 (1.0-4.0); LYMPHOCYTES % (AUTO) 5 % (12-44); MEAN CORPUSCULAR HEMOGLOBIN 31 PG (25-34); MEAN CORPUSCULAR HGB CONC 30 G/DL (32-36); MEAN CORPUSCULAR VOLUME 104 FL (80-99); MEAN PLATELET VOLUME 11.5 FL (7.4-10.4); MONOCYTES # (AUTO) 0.7 X 10^3 (0.0-1.0); MONOCYTES % (AUTO) 9 % (0-12); NEUTROPHILS # (AUTO) 6.4 X 10^3 (1.8-7.8); NEUTROPHILS % (AUTO) 86 % (42-75); PLATELET COUNT 174 10^3/uL (130-400); RED BLOOD COUNT 3.67 10^6/uL (4.35-5.85); RED CELL DISTRIBUTION WIDTH 15.2 % (10.0-14.5); WHITE BLOOD COUNT 7.4 10^3/uL (4.3-11.0)
[2018-09-19] MEDS: CEFEPIME 2 GM/NS 50 ML IVPB IV SCH ×2 (19:56)
[2018-09-19] MEDS: DOCUSATE SODIUM 100 MG (COLACE) CAP PO SCH (20:01)
[2018-09-19] MEDS: PANTOPRAZOLE 40 MG (PROTONIX) VIAL IV SCH (20:01)
[2018-09-20] VITALS (12 sets, daily range): BP systolic 151–194; BP diastolic 82–108
[2018-09-20] MEDS: RT-ALBUTEROL/IPRATROPIUM 3 ML (DUONEB) VIAL INH SCH ×3 (03:26→09:39)
[2018-09-20] MEDS: NS IV 1000 ML 1,000 ML IV SCH (04:29)
[2018-09-20] MEDS: meTOprolol 5 MG/5 ML (LOPRESSOR) VIAL IV SCH (04:29)
[2018-09-20 04:34] LABS: BASOPHILS % (AUTO) 0 % (0-10); EOSINOPHILS % (AUTO) 0 % (0-10); HEMATOCRIT 36 % (35-52); HEMOGLOBIN 11.7 G/DL (11.5-16.0); LYMPHOCYTES # (AUTO) 0.6 X 10^3 (1.0-4.0); LYMPHOCYTES % (AUTO) 8 % (12-44); MEAN CORPUSCULAR HEMOGLOBIN 33 PG (25-34); MEAN CORPUSCULAR HGB CONC 33 G/DL (32-36); MEAN CORPUSCULAR VOLUME 103 FL (80-99); MEAN PLATELET VOLUME 11.9 FL (7.4-10.4); MONOCYTES # (AUTO) 0.9 X 10^3 (0.0-1.0); MONOCYTES % (AUTO) 11 % (0-12); NEUTROPHILS # (AUTO) 6.1 X 10^3 (1.8-7.8); NEUTROPHILS % (AUTO) 81 % (42-75); PLATELET COUNT 181 10^3/uL (130-400); RED BLOOD COUNT 3.51 10^6/uL (4.35-5.85); RED CELL DISTRIBUTION WIDTH 15.7 % (10.0-14.5); WHITE BLOOD COUNT 7.6 10^3/uL (4.3-11.0)
[2018-09-20 05:10] LABS: CALCIUM 11.4 MG/DL (8.5-10.1); CREATININE SERUM 2.71 MG/DL (0.60-1.30); MAGNESIUM 2.4 MG/DL (1.8-2.4); PHOSPHORUS 1.6 MG/DL (2.3-4.7); POTASSIUM 3.6 MMOL/L (3.6-5.0)
[2018-09-20] MEDS: POTASSIUM CL 10MEQ/50ML IVPB 50 ML IV SCH (05:12)
[2018-09-20] MEDS: MAGNESIUM 1 GM/100 ML IVPB 100 ML IV SCH (05:13)
[2018-09-20] MEDS: KCL 20 MEQ TAB (K-DUR) PO SCH (05:13)
--- NOTE | 2018-09-20 07:24 | Pulmonary Progress Note ---
Sepsis Event Evaluation Height, Weight, BMI Height: 5'6.00" Weight: 385lbs. 2.0oz. 174.485077ci; 63.6 BMI Method:Estimated Focused Exam Lactate Level 09/17/18 19:40: Lactic Acid Level 2.30*H 09/17/18 21:49: Lactic Acid Level 1.64 Exam Exam Vital Signs Date Time Temp Pulse Resp B/P (MAP) Pulse Ox O2 Delivery O2 Flow Rate FiO2 09/20/18 06:12 94 Nasal Cannula 4.00 09/20/18 06:00 95 46 157/93 (114) 99 Nasal Cannula 4.00 09/20/18 05:00 103 41 164/91 (115) 100 Nasal Cannula 4.00 09/20/18 04:13 100.8 09/20/18 04:00 Nasal Cannula 4.00 09/20/18 04:00 108 37 165/87 (113) 86 Nasal Cannula 4.00 09/20/18 03:26 93 Nasal Cannula 4.00 09/20/18 03:00 105 17 162/108 (126) 94 Nasal Cannula 4.00 09/20/18 02:00 112 10 194/103 (133) 94 Nasal Cannula 4.00 09/20/18 01:00 105 12 191/95 (127) 95 Nasal Cannula 4.00 09/20/18 01:00 99 09/20/18 00:00 Nasal Cannula 4.00 09/20/18 00:00 102 10 194/93 (126) 95 Nasal Cannula 4.00 09/19/18 23:24 100.9 09/19/18 23:00 117 8 194/97 (129) 93 Nasal Cannula 4.00 09/19/18 22:58 92 Nasal Cannula 4.00 09/19/18 22:00 114 17 198/100 (132) 92 Nasal Cannula 4.00 09/19/18 21:00 104 15 187/107 (133) 91 Nasal Cannula 4.00 09/19/18 20:00 Nasal Cannula 4.00 09/19/18 19:59 100.6 111 32 184/97 (126) 92 Nasal Cannula 4.00 09/19/18 19:23 92 Nasal Cannula 4.00 09/19/18 19:00 101 09/19/18 19:00 101 8 195/99 (131) 93 Nasal Cannula 4.00 09/19/18 18:00 116 18 173/89 (117) 91 Nasal Cannula 4.00 09/19/18 17:00 114 19 175/92 (119) 92 Nasal Cannula 4.00 09/19/18 16:00 105 18 188/90 (122) 93 Nasal Cannula 4.00 09/19/18 15:25 91 Nasal Cannula 4.00 09/19/18 15:00 102 15 174/89 (117) 96 Nasal Cannula 4.00 09/19/18 15:00 Nasal Cannula 3.00 09/19/18 14:00 107 36 179/100 (126) 91 Nasal Cannula 4.00 09/19/18 13:00 99 33 173/83 (113) 92 Nasal Cannula 4.00 09/19/18 13:00 99 09/19/18 12:00 104 22 183/97 (125) 92 Nasal Cannula 4.00 09/19/18 11:46 Nasal Cannula 3.00 09/19/18 11:16 91 Nasal Cannula 3.00 09/19/18 11:00 109 38 177/105 (129) 93 Nasal Cannula 4.00 09/19/18 10:00 101 11 197/95 (129) 91 Nasal Cannula 4.00 09/19/18 09:00 111 36 166/109 (128) 90 Nasal Cannula 3.00 09/19/18 08:00 Nasal Cannula 3.00 09/19/18 08:00 114 24 183/98 (126) 91 Nasal Cannula 3.00 I & O 09/20/18 07:00 Intake Total 2230 ml Output Total 4825 ml Balance -2595 ml Height & Weight Height: 5'6.00" Weight: 385lbs. 2.0oz. 174.769260bz; 63.6 BMI Method:Estimated General Appearance: No Apparent Distress, Chronically ill, Obese, Other ( unresponsive) HEENT: Normal ENT Inspection, Pharynx Normal Neck: Normal Inspection, Carotid Bruit Respiratory: Crackles, Decreased Breath Sounds Cardiovascular: Irregularly Irregular, Tachycardia Capillary Refill: Less Than 3 Seconds Gastrointestinal: soft Extremity: Normal Capillary Refill, Normal Inspection, Non Tender, No Calf Tenderness, No Pedal Edema Neurologic/Psychiatric: Other (semi-comatose) Skin: Normal Color, Warm/Dry Lymphatic: No Adenopathy Results Lab Laboratory Tests 09/19/18 03:33 09/19/18 18:15 09/20/18 04:05 Assessment/Plan Assessment/Plan Mental status change r/o CVA vs anoxic brain injury vs metabolic encephalopathy -CT without contrast is negative -D/C Ativan and Melatonin Afib RVR -cardiology following -pt is on Eliquis Hx of COPD Acute renal failure -IVF Morbid obesity with OHS -Check repeat ABG CHERYLE SULLIVAN DO Sep 20, 2018 07:24
--- NOTE | 2018-09-20 07:35 | Diagnostic Imaging Report ---
Indication: Dyspnea. Comparison: 09/17/2018. Findings: Enteric tube courses through the esophagus and off the [id number]. Low lung volumes limit examination. Cardiomegaly is unchanged. No change in central vascular congestion. No pneumothorax or definitive pleural effusion. Stable left pectoral transvenous pacemaker. Impression: Stable limited exam with cardiomegaly and probable central vascular congestion. Dictated by: Dictated on workstation # [id number]
[2018-09-20] MEDS: PANTOPRAZOLE 40 MG (PROTONIX) VIAL IV SCH (07:55)
[2018-09-20] MEDS: OXYBUTYNIN (DITROPAN) 5 MG TAB PO SCH (07:55)
[2018-09-20] MEDS: APIXABAN 5 MG (ELIQUIS) TABLET PO SCH (07:55)
[2018-09-20] MEDS: inSUlin ASPART (NovoLOG) 1 UNIT/0.01 ML (CHARGE PER UNIT) SC SCH (07:55)
[2018-09-20] MEDS: DILTIAZEM 60 MG (CARDIZEM) TAB NG SCH (07:55)
[2018-09-20] MEDS: LEVOTHYROXINE 125 MCG (LEVOTHROID) TABLET PO SCH (07:55)
[2018-09-20] MEDS: FLUTICASONE NASAL SPRAY (FLONASE) 16 GM BTL NS SCH (07:56)
--- NOTE | 2018-09-20 08:43 | Progress Note-Cardiology ---
Cardiology SOAP Progress Note Subjective: Raises head to verbal and tactile stimuli. No verbal response. Unable to obtain any information from pt. Objective: I&O/Vital Signs 09/20/18 09/20/18 09/20/18 09/20/18 05:00 06:00 06:12 07:00 Pulse 103 95 112 Resp 41 46 B/P (MAP) 164/91 (115) 157/93 (114) Pulse Ox 100 99 94 O2 Delivery Nasal Cannula Nasal Cannula Nasal Cannula O2 Flow Rate 4.00 4.00 4.00 09/20/18 09/20/18 09/20/18 09/20/18 07:00 08:00 08:00 09:00 Pulse 112 101 110 Resp 30 43 42 B/P (MAP) 157/93 (114) 162/82 (108) 155/93 (113) Pulse Ox 90 O2 Delivery Nasal Cannula Nasal Cannula Nasal Cannula Nasal Cannula O2 Flow Rate 4.00 4.00 4.00 4.00 09/20/18 09/20/18 09/20/18 09/20/18 09:44 10:00 10:19 11:00 Pulse 96 113 Resp 42 40 B/P (MAP) 151/91 (111) 151/99 (116) Pulse Ox 90 88 87 88 O2 Delivery Nasal Cannula Nasal Cannula OxyMask Nasal Cannula O2 Flow Rate 4.00 4.00 12.00 4.00 09/20/18 11:26 Pulse Ox 84 O2 Delivery Nasal Cannula O2 Flow Rate 1.00 09/20/18 00:00 Intake Total 1170 ml Output Total 3175 ml Balance -2005 ml Weight (Pounds): 385 Weight (Ounces): 2.0 Weight (Calculated Kilograms): 174.874729 Constitutional: other (Morbidly obese) Respiratory: chest expansion is symmetric, chest is bilaterally symmetric, other (diminished throughout; visibly dyspneic with shallow inspiratory efforts) Cardiovascular: irregularly irregular, S1 and S2, systolic murmur Gastrointestional: round, audible bowel sounds, other (NG tube in place) Genital/Rectal: other (Urinary catheter in place with dark, cloudy urine) Extremities: significant edema (bilat upper extremity edema) Neurologic/Psychiatric: other (only moves head in response to verbal and tactile stimulus; no verbal response; not moving extremities or following commands) Skin: warm/dry; No rash Results/Procedures: Labs Laboratory Tests 09/19/18 17:26: Glucometer 247H 09/19/18 18:15: White Blood Count 7.4, Red Blood Count 3.67L, Hemoglobin 11.5, Hematocrit 38, Mean Corpuscular Volume 104H, Mean Corpuscular Hemoglobin 31, Mean Corpuscular Hemoglobin Concent 30L, Red Cell Distribution Width 15.2H, Platelet Count 174, Mean Platelet Volume 11.5H, Neutrophils (%) (Auto) 86H, Lymphocytes (%) (Auto) 5L, Monocytes (%) (Auto) 9, Eosinophils (%) (Auto) 0, Basophils (%) (Auto) 0, Neutrophils # (Auto) 6.4, Lymphocytes # (Auto) 0.4L, Monocytes # (Auto) 0.7, Eosinophils # (Auto) 0.0, Basophils # (Auto) 0.0 09/19/18 23:24: Glucometer 258H 09/20/18 04:05: White Blood Count 7.6, Red Blood Count 3.51L, Hemoglobin 11.7, Hematocrit 36, Mean Corpuscular Volume 103H, Mean Corpuscular Hemoglobin 33, Mean Corpuscular Hemoglobin Concent 33, Red Cell Distribution Width 15.7H, Platelet Count 181, Mean Platelet Volume 11.9H, Neutrophils (%) (Auto) 81H, Lymphocytes (%) (Auto) 8L, Monocytes (%) (Auto) 11, Eosinophils (%) (Auto) 0, Basophils (%) (Auto) 0, Neutrophils # (Auto) 6.1, Lymphocytes # (Auto) 0.6L, Monocytes # (Auto) 0.9, Eosinophils # (Auto) 0.0, Basophils # (Auto) 0.0, Sodium Level 145, Potassium Level 3.6, Chloride Level 112H, Carbon Dioxide Level 23, Anion Gap 10, Blood Urea Nitrogen 53H, Creatinine 2.71H, Estimat Glomerular Filtration Rate 18, BUN/ Creatinine Ratio 20, Glucose Level 194H, Calcium Level 11.4H, Phosphorus Level 1.6L, Magnesium Level 2.4 Microbiology 09/17/18 Blood Culture - Preliminary, Resulted No growth 09/18/18 MRSA Screen - Final, Complete 09/17/18 Urine Culture - Preliminary, Resulted Proteus mirabilis Providencia stuartii See Comments Procedures NAME: RONA MCDONALD MED REC#: [id number] PT STATUS: ADM IN : 1955 PHYSICIAN: EZIO LOCKETT MD ADMIT DATE: 09/17/18/ICU Signed Date of Exam: 09/19/18 CT HEAD WO PROCEDURE: CT head without contrast. TECHNIQUE: Multiple contiguous axial images were obtained through the brain without the use of intravenous contrast. INDICATION: CVA. No prior studies are available for comparison. The ventricles and sulci are within normal limits. No sulcal effacement is seen. There is no midline shift. No acute intra-axial or extra-axial hemorrhage is detected. Cisterns are patent. Visualized paranasal sinuses are clear. IMPRESSION: No acute intracranial process is detected. Dictated by: Dictated on workstation # [id number] Dict: 09/19/[id number] Trans: 09/19/18 155 Interpreted by: ADITYA PARKER MD Electronically signed by: ADITYA PARKER MD 09/19/18 1554 NAME: RONA MCDONALD [facility] REC#: [id number] PT STATUS: ADM IN : 1955 PHYSICIAN: JESSICA RASMUSSEN MD ADMIT DATE: 09/17/18/ICU Draft Date of Exam:09/20/18 CHEST 1 VIEW, AP/PA ONLY Indication: Dyspnea. Comparison: 09/17/2018. Findings: Enteric tube courses through the esophagus and off the [id number]. Low lung volumes limit examination. Cardiomegaly is unchanged. No change in central vascular congestion. No pneumothorax or definitive pleural effusion. Stable left pectoral transvenous pacemaker. Impression: Stable limited exam with cardiomegaly and probable central vascular congestion. Dictated on workstation # [id number] Dict: 09/20/18 0733 Trans: 09/20/18 0735 CVB [id number] Interpreted by: ELKE BALDWIN MD Electronically signed by: A/P: Assessment: Atrial fibrillation was rapid ventricular response - rate somewhat improved, but not well controlled History of paroxysmal atrial fibrillation, has been on Eliquis and Cardizem Non-compliance with medications Mental status change - possible anoxic brain injury versus stroke -management per medical staff [id number] score of 3, yearly risk of stroke without oral anticoagulation is 3.5 percent, maintained on Eliquis Echocardiogram of 09-19-[address] Lockett showed LVEF 50-55%. Grade I diastolic dysfunction. LA dilated. PASP 20 mmHg. Mild TR UTI with probable sepsis - management per medical services History of severe COPD with multiple hospitalization for acute exacerbation and hypoxemia. Morbid obesity, obesity hypoventilation syndrome, managed by Dr. Marx Diabetes mellitus - management per medical services Acute on chronic renal failure, continue to monitor renal function. HTN Poor prognosis Plan: Complex management issue Unable to take any medications by mouth Meds being given via IV and NG tube - receiving short acting Cardizem via NG tube HR and BP not well controlled - change BB dose UTI with prob sepsis - management per medical services Monitor lab closely ANA MARIA GUTIERRES Sep 20, 2018 08:43
[2018-09-20] MEDS ORDERED: morphine INJ 4 MG/ML 1 ML (VIAL/SYRINGE) IVP PRN (10:15)
--- NOTE | 2018-09-20 10:32 | Progress Note-Hospitalist ---
Subjective HPI/CC On Admission Date Seen by Provider: Sep 20, 2018 Time Seen by Provider: 09:45 Subjective/Events-last exam Patient is in end of life Daughter has arrived and Palliative care has updated on status Pt appears in discomfort so will order Morphine Transferring to 4th floor Focused Exam Lactate Level 09/17/18 19:40: Lactic Acid Level 2.30*H 09/17/18 21:49: Lactic Acid Level 1.64 Objective Exam Vital Signs Vital Signs Date Time Temp Pulse Resp B/P (MAP) Pulse Ox O2 Delivery O2 Flow Rate FiO2 09/20/18 10:19 87 OxyMask 12.00 09/20/18 09:00 110 42 155/93 (113) 09/20/18 04:13 100.8 09/18/18 01:17 28 Capillary Refill : Less Than 3 SecondsLess Than 3 Seconds General Appearance: Chronically ill, Moderate Distress, Obese, Other ( tachypneic) Results/Procedures Lab Laboratory Tests 09/19/18 18:15 09/20/18 04:05 Patient resulted labs reviewed. Assessment/Plan Assessment and Plan Assess & Plan/Chief Complaint Assessment: Presumed anoxic brain injury from acute on chronic respiratory failure Morbid obesity Garcia cath maintenance due to inability to get OOB long-term ESBL UTI in past AF w/RVR Plan: Tx to 4th Comfort care orders Diagnosis/Problems Diagnosis/Problems (1) Anoxic brain injury Status: Acute (2) Comatose Status: Acute Qualifiers: Coma depth: unspecified coma depth Qualified Codes: R40.20 - Unspecified coma (3) Obesity hypoventilation syndrome Status: Chronic (4) Sepsis Status: Acute Qualifiers: Sepsis type: sepsis due to unspecified organism Qualified Codes: A41.9 - Sepsis, unspecified organism (5) UTI (urinary tract infection) due to urinary indwelling Garcia catheter Status: Chronic Qualifiers: Indwelling urinary catheter type: indwelling urethral catheter Encounter type: subsequent encounter Qualified Codes: T83.511D - Infection and inflammatory reaction due to indwelling urethral catheter, subsequent encounter ; N39.0 - Urinary tract infection, site not specified (6) IDDM (insulin dependent diabetes mellitus) Status: Chronic (7) Morbid obesity Status: Chronic (8) Hypoxia Status: Chronic (9) Debilitated patient Status: Chronic Clinical Quality Measures DVT/VTE Risk/Contraindication: Risk Factor Score Per Nursin RFS Level Per Nursing on Admit: 4+=Very High KENISHA ALBRIGHT DO Sep 20, 2018 10:32
[2018-09-20] MEDS ORDERED: ACETAMINOPHEN 650 MG SUPP (TYLENOL) PR PRN (11:00)
[2018-09-20] MEDS ORDERED: RT-ALBUTEROL/IPRATROPIUM 3 ML (DUONEB) VIAL INH PRN (11:00)
[2018-09-20] MEDS ORDERED: BISACODYL 10 MG SUPP (DULCOLAX) PR PRN (11:00)
[2018-09-20] MEDS ORDERED: morphine INJ 4 MG/ML 1 ML (VIAL/SYRINGE) IV PRN ×2 (11:00→15:00)
[2018-09-20] MEDS ORDERED: SALIVA STIMULANT MOUTH SPRAY (BIOTENE) 1.5 OZ MM PRN (11:00)
[2018-09-20] MEDS ORDERED: ONDANSETRON 4 MG/2 ML (SDV) Z0FRAN IVP PRN (11:00)
[2018-09-20] MEDS ORDERED: ARTIFICAL TEARS 0.4 ML UNIT DOSE (REFRESH PLUS) OU PRN (11:00)
[2018-09-20] MEDS ORDERED: GLYCOPYRROLATE 0.2 MG/ML (ROBINUL) 2 ML VIAL IV PRN (11:00)
[2018-09-20] MEDS ORDERED: meTOprolol 5 MG/5 ML (LOPRESSOR) VIAL IV SCH (12:00)
[2018-09-20] MEDS: LORazepam INJ 2 MG/ML (ATIVAN) VIAL IVP PRN ×2 (13:13→16:08)
[2018-09-20] MEDS ORDERED: morphine INJ 10 MG/ML 1ML (SYR OR VIAL) IV PRN (13:15)
--- NOTE | 2018-09-20 15:44 | Progress Note-Cardiology ---
Cardiology SOAP Progress Note Subjective: Pt not verbally communicative Objective: I&O/Vital Signs 09/20/18 09/20/18 09/20/18 09/20/18 04:00 04:00 04:13 05:00 Temp 100.8 Pulse 108 103 Resp 37 41 B/P (MAP) 165/87 (113) 164/91 (115) Pulse Ox 86 100 O2 Delivery Nasal Cannula Nasal Cannula Nasal Cannula O2 Flow Rate 4.00 4.00 4.00 09/20/18 09/20/18 09/20/18 09/20/18 06:00 06:12 07:00 07:00 Pulse 95 112 112 Resp 46 30 B/P (MAP) 157/93 (114) 157/93 (114) Pulse Ox 99 94 90 O2 Delivery Nasal Cannula Nasal Cannula Nasal Cannula O2 Flow Rate 4.00 4.00 4.00 09/20/18 09/20/18 09/20/18 09/20/18 08:00 08:00 09:00 09:44 Pulse 101 110 Resp 43 42 B/P (MAP) 162/82 (108) 155/93 (113) Pulse Ox 90 O2 Delivery Nasal Cannula Nasal Cannula Nasal Cannula Nasal Cannula O2 Flow Rate 4.00 4.00 4.00 4.00 09/20/18 09/20/18 09/20/18 09/20/18 10:00 10:19 11:00 11:26 Pulse 96 113 Resp 42 40 B/P (MAP) 151/91 (111) 151/99 (116) Pulse Ox 88 87 88 84 O2 Delivery Nasal Cannula OxyMask Nasal Cannula Nasal Cannula O2 Flow Rate 4.00 12.00 4.00 1.00 09/20/18 00:00 Intake Total 1170 ml Output Total 3175 ml Balance -2005 ml Weight (Pounds): 385 Weight (Ounces): 2.0 Weight (Calculated Kilograms): [phone] Constitutional: other (Morbidly obese) Respiratory: chest expansion is symmetric, chest is bilaterally symmetric, other (diminished throughout; visibly dyspneic with shallow inspiratory efforts) Cardiovascular: irregularly irregular, S1 and S2, systolic murmur Gastrointestional: round, audible bowel sounds, other (NG tube in place) Genital/Rectal: other (Urinary catheter in place with dark, cloudy urine) Extremities: significant edema (bilat upper extremity edema) Neurologic/Psychiatric: other (only moves head in response to verbal and tactile stimulus; no verbal response; not moving extremities or following commands) Skin: warm/dry; No rash Results/Procedures: Labs Laboratory Tests 09/19/18 17:26: Glucometer 247H 09/19/18 18:15: White Blood Count 7.4, Red Blood Count 3.67L, Hemoglobin 11.5, Hematocrit 38, Mean Corpuscular Volume 104H, Mean Corpuscular Hemoglobin 31, Mean Corpuscular Hemoglobin Concent 30L, Red Cell Distribution Width 15.2H, Platelet Count 174, Mean Platelet Volume 11.5H, Neutrophils (%) (Auto) 86H, Lymphocytes (%) (Auto) 5L, Monocytes (%) (Auto) 9, Eosinophils (%) (Auto) 0, Basophils (%) (Auto) 0, Neutrophils # (Auto) 6.4, Lymphocytes # (Auto) 0.4L, Monocytes # (Auto) 0.7, Eosinophils # (Auto) 0.0, Basophils # (Auto) 0.0 09/19/18 23:24: Glucometer 258H 09/20/18 04:05: White Blood Count 7.6, Red Blood Count 3.51L, Hemoglobin 11.7, Hematocrit 36, Mean Corpuscular Volume 103H, Mean Corpuscular Hemoglobin 33, Mean Corpuscular Hemoglobin Concent 33, Red Cell Distribution Width 15.7H, Platelet Count 181, Mean Platelet Volume 11.9H, Neutrophils (%) (Auto) 81H, Lymphocytes (%) (Auto) 8L, Monocytes (%) (Auto) 11, Eosinophils (%) (Auto) 0, Basophils (%) (Auto) 0, Neutrophils # (Auto) 6.1, Lymphocytes # (Auto) 0.6L, Monocytes # (Auto) 0.9, Eosinophils # (Auto) 0.0, Basophils # (Auto) 0.0, Sodium Level 145, Potassium Level 3.6, Chloride Level 112H, Carbon Dioxide Level 23, Anion Gap 10, Blood Urea Nitrogen 53H, Creatinine 2.71H, Estimat Glomerular Filtration Rate 18, BUN/ Creatinine Ratio 20, Glucose Level 194H, Calcium Level 11.4H, Phosphorus Level 1.6L, Magnesium Level 2.4 Microbiology 09/17/18 Blood Culture - Preliminary, Resulted No growth 09/18/18 MRSA Screen - Final, Complete 09/17/18 Urine Culture - Preliminary, Resulted Proteus mirabilis Providencia stuartii See Comments A/P: Assessment: Atrial fibrillation was rapid ventricular response - rate somewhat improved, but not well controlled History of paroxysmal atrial fibrillation, has been on Eliquis and Cardizem Non-compliance with medications Mental status change - possible anoxic brain injury versus stroke -management per medical staff [id number] score of 3, yearly risk of stroke without oral anticoagulation is 3.5 percent, maintained on Eliquis Echocardiogram of 09-19-[address] Lockett showed LVEF 50-55%. Grade I diastolic dysfunction. LA dilated. PASP 20 mmHg. Mild TR UTI with probable sepsis - management per medical services History of severe COPD with multiple hospitalization for acute exacerbation and hypoxemia. Morbid obesity, obesity hypoventilation syndrome, managed by Dr. Marx Diabetes mellitus - management per medical services Acute on chronic renal failure, continue to monitor renal function. HTN Poor prognosis Plan: Complex management issue Unable to take any medications by mouth Meds being given via IV and NG tube - receiving short acting Cardizem via NG tube HR and BP not well controlled - change BB dose UTI with prob sepsis - management per medical services Monitor lab closely WALLACE ESPARZA MD FACP FAC CCDS Sep 20, 2018 15:44
--- NOTE | 2018-09-20 20:28 | Discharge Summary-Hospitalist ---
Diagnosis/Chief Complaint Date of Admission Sep 17, 2018 at 20:55 Date of Discharge Sep 20, 2018 at 18:35 Discharge Diagnosis (1) Anoxic brain injury Status: Acute (2) Comatose Status: Acute (3) Obesity hypoventilation syndrome Status: Chronic (4) Sepsis Status: Acute (5) UTI (urinary tract infection) due to urinary indwelling Hayes catheter Status: Chronic (6) IDDM (insulin dependent diabetes mellitus) Status: Chronic (7) Morbid obesity Status: Chronic (8) Hypoxia Status: Chronic (9) Debilitated patient Status: Chronic Discharge Summary Discharge Physical Exam Allergies: Coded Allergies: Sulfa (Sulfonamide Antibiotics) (Verified Allergy, Unknown, 05/24/16) divalproex sodium (Verified Allergy, Unknown, 05/24/16) tetracycline (Unverified Adverse Reaction, Unknown, 03/03/17) Vitals & I&Os Vital Signs Date Time Temp Pulse Resp B/P (MAP) Pulse Ox O2 Delivery O2 Flow Rate FiO2 09/20/18 11:26 84 Nasal Cannula 1.00 09/20/18 11:00 113 40 151/99 (116) 09/20/18 04:13 100.8 09/18/18 01:17 28 General Appearance: Other () Hospital Course Hospital course; Patient had a standard hospital course for respiratory failure. She was admitted for respiratory failure and required transfer to ICU with worsened status. Patient has had a long and declining health status in the past 1 year requiring NHP and maintaining hayes cath due to inability to get OOB due to morbid obesity. She was treated in ICU but she was in the early stages of the process and palliative care and hospice was were consulted. Pt declined rapidly and with family at bedside. Labs (last 24 hrs) Laboratory Tests 09/19/18 23:24: Glucometer 258H 09/20/18 04:05: White Blood Count 7.6, Red Blood Count 3.51L, Hemoglobin 11.7, Hematocrit 36, Mean Corpuscular Volume 103H, Mean Corpuscular Hemoglobin 33, Mean Corpuscular Hemoglobin Concent 33, Red Cell Distribution Width 15.7H, Platelet Count 181, Mean Platelet Volume 11.9H, Neutrophils (%) (Auto) 81H, Lymphocytes (%) (Auto) 8L, Monocytes (%) (Auto) 11, Eosinophils (%) (Auto) 0, Basophils (%) (Auto) 0, Neutrophils # (Auto) 6.1, Lymphocytes # (Auto) 0.6L, Monocytes # (Auto) 0.9, Eosinophils # (Auto) 0.0, Basophils # (Auto) 0.0, Sodium Level 145, Potassium Level 3.6, Chloride Level 112H, Carbon Dioxide Level 23, Anion Gap 10, Blood Urea Nitrogen 53H, Creatinine 2.71H, Estimat Glomerular Filtration Rate 18, BUN/ Creatinine Ratio 20, Glucose Level 194H, Calcium Level 11.4H, Phosphorus Level 1.6L, Magnesium Level 2.4 Microbiology 09/17/18 Blood Culture - Preliminary, Resulted No growth 09/18/18 MRSA Screen - Final, Complete 09/17/18 Urine Culture - Preliminary, Resulted Proteus mirabilis Providencia stuartii See Comments Patient resulted labs reviewed. Discussion & Recommendations Discharge Planning: <30 minutes discharge planning Discharge Home Medications: Active Scripts Active Reported Lyrica (Pregabalin) 75 Mg Capsule 75 Mg PO BID [Morphine Er 15MG] 15 Mg PO Q12H Tylenol (Acetaminophen) 325 Mg Tablet 650 Mg PO Q6H Pantoprazole Sodium 40 Mg Tablet.dr 40 Mg PO BID Imodium A-D (Loperamide HCl) 2 Mg Tablet 2 Mg PO PRN MAX OF 4 DOSES IN 24 HOURS Clear Eyes Complete Eye Drops (Naphazo HCl/Hpm/Ps 80/Zn Sulf) 15 Ml Drops 2 Drops OP QID Macrobid 100 mg Capsule (Nitrofurantoin Monohyd/M-Cryst) 100 Mg Capsule 1 Tab PO DAILY Pyridium (Phenazopyridine HCl) 200 Mg Tablet 1 Tab PO Q8H PRN Cartia Xt (Diltiazem HCl) 120 Mg Cap.er.24h 120 Mg PO DAILY Synthroid (Levothyroxine Sodium) 125 Mcg Tablet 125 Mcg PO DAILY Eliquis (Apixaban) 5 Mg Tablet 5 Mg PO BID Vitamin C (Ascorbic Acid) 500 Mg Capsule 500 Mg PO DAILY Victoza 3-Bj (Liraglutide) 0.6 Mg/0.1 Ml Pen.injctr 1.8 Mg SQ DAILY Miralax (Polyethylene Glycol 3350) 17 Gm Powd.pack 17 Gm PO DAILY [place] Liquid (Mag Hydrox/Al Hydrox/Simeth) 355 Ml Oral.susp 30 Ml PO Q4H PRN Aspercreme (Lidocaine HCl) 76.5 Gm Cream..g. 1 Applic TP BID Dulcolax (Bisacodyl) 5 Mg Tablet.dr 10 Mg PO DAILY PRN [Capsaicin 0.1% Top] 1 Applic TOP HS SARAHY FEET Ativan (Lorazepam) 0.5 Mg Tablet 0.5 Mg PO DAILY Ambien (Zolpidem Tartrate) 5 Mg Tablet PO HS Cranberry (Cranberry Fruit) 450 Mg Tablet 450 Mg PO TID Melatonin 3 Mg Tablet 3 Mg PO HS PRN Milk of Magnesia (Magnesium Hydroxide) 400 Mg/5 Ml Oral.susp 30 Ml PO DAILY PRN Cyanocobalamin Injection (Cyanocobalamin) 1,000 Mcg/Ml Inj 1,000 Mcg IM MONTHLY ON THE 1ST Saline Mist (Sodium Chloride) 44 Ml [place] 2 Sprays NS Q4H PRN Biofreeze (Menthol) 118 Ml Gel..ml. 1 Applic TP TID PRN Acetaminophen 325 Mg Tablet 650 Mg PO Q4H PRN Trintellix (Vortioxetine Hydrobromide) 20 Mg Tablet 20 Mg PO DAILY Renvela (Sevelamer Carbonate) 800 Mg Tablet 800 Mg PO TIDWM Nystop (Nystatin) 60 Gm Powder TOP BID Nystatin 15 Gm Oint...g. TOP BID Ssd (Silver Sulfadiazine) 25 Gm Cream..g. TOP BID Ondansetron HCl 8 Mg Tablet 8 Mg PO TID PRN Triamcinolone Acetonide 0.1% Ointment (Triamcinolone Acet) 15 Gm Oint TOP BID Fluticasone Propionate 16 Gm [place].susp 2 Sprays NS BID Oxybutynin Chloride ER (Oxybutynin Chloride) 15 Mg Tab.er.24 10 Mg PO DAILY Colace (Docusate Sodium) 100 Mg Capsule 100 Mg PO HS Jaret Antifungal (Miconazole Nitrate) 142 Gm Cream..g. TP DAILY PRN Oxycodone-Acetaminophen 10-325 (Oxycodone HCl/Acetaminophen) 1 Each Tablet 1 Tab PO QID Miralax (Polyethylene Glycol 3350) 119 Gm Powder 17 Gm PO DAILY PRN Evelyn (Evelyn Root) 250 Mg Capsule 550 Mg PO Q12H PRN Instructions to patient/family Please see electronic discharge instructions given to patient. Clinical Quality Measures DVT/VTE Risk/Contraindication: Risk Factor Score Per Nursin RFS Level Per Nursing on Admit: 4+=Very High Problem Qualifiers (1) Comatose: Coma depth: unspecified coma depth Qualified Codes: R40.20 - Unspecified coma (2) Sepsis: Sepsis type: sepsis due to unspecified organism Qualified Codes: A41.9 - Sepsis, unspecified organism (3) UTI (urinary tract infection) due to urinary indwelling Hayes catheter: Indwelling urinary catheter type: indwelling urethral catheter Encounter type : subsequent encounter Qualified Codes: T83.511D - Infection and inflammatory reaction due to indwelling urethral catheter, subsequent encounter ; N39.0 - Urinary tract infection, site not specified KENISHA ALBRIGHT DO Sep 20, 2018 20:28
== END 2018-09-20 18:35 | disposition expired | DRG 698 ==
LOC: EDUNIT# 19:07 → ER 19:08 → 4TH 20:55 → ICU 09-18 21:45
PROVIDERS: ADMIT Family Medicine; ATTEND Internal Medicine
DX: T83.511A Infection and inflammatory reaction due to indwelling urethral catheter, initial encounter (principal); A41.9 Sepsis, unspecified organism; N39.0 Urinary tract infection, site not specified; J96.20 Acute and chronic respiratory failure, unspecified whether with hypoxia or hypercapnia; G93.1 Anoxic brain damage, not elsewhere classified; R40.20 Unspecified coma; J18.9 Pneumonia, unspecified organism; Z66 Do not resuscitate; Z51.5 Encounter for palliative care; Z68.44 Body mass index [BMI] 60.0-69.9, adult; E66.2 Morbid (severe) obesity with alveolar hypoventilation; I48.0 Paroxysmal atrial fibrillation; Z95.0 Presence of cardiac pacemaker; I13.0 Hypertensive heart and chronic kidney disease with heart failure and stage 1 through stage 4 chronic kidney disease, or unspecified chronic kidney disease; I50.9 Heart failure, unspecified; N18.9 Chronic kidney disease, unspecified; J44.1 Chronic obstructive pulmonary disease with (acute) exacerbation; J44.0 Chronic obstructive pulmonary disease with (acute) lower respiratory infection; I25.10 Atherosclerotic heart disease of native coronary artery without angina pectoris; E11.51 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 with diabetic peripheral angiopathy without gangrene; E11.40 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 with diabetic neuropathy, unspecified; E03.9 Hypothyroidism, unspecified; Z87.11 Personal history of peptic ulcer disease; F41.9 Anxiety disorder, unspecified; F32.9 Major depressive disorder, single episode, unspecified; M19.91 Primary osteoarthritis, unspecified site; Z87.891 Personal history of nicotine dependence; Z74.01 Bed confinement status; Z96.642 Presence of left artificial hip joint; Z91.19 Patient's noncompliance with other medical treatment and regimen
CPT/HCPCS: 36415; 36600; 70450; 71045; 80048; 80053; 81000; 82150; 82805; 82962; 83605; 83690; 83735; 83880; 84100; 84145; 84484; 85007; 85025; 85027; 85610; 85730; 87040; 87077; 87081; 87088; 87186; 93005; 93041; 93306; 94640; 94760; 96374; 96375